=== PATIENT | female | born 1995 | race Caucasian/White ===

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

== ENCOUNTER 2017-01-14 22:33 | Emergency (ER) | payer MEDICAID ==
[~2017-01-14] VITALS: Ht 157.5 cm; Wt 59.1 kg
[~2017-01-14 22:33] MED LIST changes: +CEPH-507 PO
--- OUTSIDE RECORDS SUMMARY | 2017-01-14 22:40 | XMS REPORT ---
Author Author JACOBO MONCADA Organization [facility] Address [address] [place] [address] Care Team Providers Care Web Consultant Name Role Phone JACOBO MONCADA Unavailable PROBLEMS Type Condition ICD9-CM Code QGL80-OT Code Onset Dates Condition Status SNOMED Code Problem ADHD (attention deficit hyperactivity disorder), combined type F90.2 Active 84746252 Problem Anxiety state F41.1 Active 107610350 Problem Plantar wart of right foot B07.0 Active 46161519310296207 Problem Anxiety disorder, unspecified type F41.9 Active 441283946 Problem Rhinitis, unspecified type J31.0 Active 16298790 Problem Depressive disorder, not elsewhere classified F32.9 Active 42461589 Problem Major depressive disorder, single episode, mild F32.0 Active 26999025 Problem Slow transit constipation K59.01 Active 56528309 ALLERGIES No Known Allergies SOCIAL HISTORY Never Assessed PLAN OF CARE Activity Details Follow Up prn Reason: VITAL SIGNS Height 59 in 2016-07-14 Weight 130.0 lbs 2016-07-14 Temperature 98.0 degrees Fahrenheit 2016-07-14 Heart Rate 92 bpm 2016-07-14 Respiratory Rate 20 2016-07-14 BMI 26.25 kg/m2 2016-07-14 Blood pressure systolic 110 mmHg 2016-07-14 Blood pressure diastolic 62 mmHg 2016-07-14 MEDICATIONS Medication Instructions Dosage Frequency Start Date End Date Duration Status HydrOXYzine HCl 25 MG Orally TID 1 tablet as needed 8h Jan, 30 days Active Ritalin LA 20 MG Orally Once a day 1 capsule in the morning 24h June, Jul, 30 days Active Venlafaxine HCl ER 150 MG Orally Once a day 1 capsule with food 24h May 30 days Active RESULTS Name Result Date Reference Range UA LONG DIP (IN HOUSE) 2016-07-14 Lot # [id number] Exp date 2017-06-19 Clarity clear Color dark yellow Odor none GLU trace NITHIN negative KET negative SG 1.025 BLO negative pH 6.0 Protein trace URO 0.2 NIT negative JOSH negative Lot # [id number] Exp date 2017-03 PROCEDURES Procedure Date Ordered Result Body Site URINALYSIS, AUTO, W/O SCOPE July 14, 2016 IMMUNIZATIONS No Known Immunizations MEDICAL (GENERAL) HISTORY [...]
--- OUTSIDE RECORDS SUMMARY | 2017-01-14 22:40 | XMS REPORT ---
Author Author DK SAMUEL Organization [facility] Address [address] [place] [address] Care Team Providers Care Fruit And Vegetable Inspector Name Role Phone DK SAMUEL Unavailable PROBLEMS Type Condition ICD9-CM Code OQC79-UT Code Onset Dates Condition Status SNOMED Code Problem ADHD (attention deficit hyperactivity disorder), combined type F90.2 Active 79050856 Problem Anxiety state F41.1 Active 713707203 Problem Plantar wart of right foot B07.0 Active 17507234418408059 Problem Anxiety disorder, unspecified type F41.9 Active 992718975 Problem Rhinitis, unspecified type J31.0 Active 95951925 Problem Depressive disorder, not elsewhere classified F32.9 Active 92552105 Problem Major depressive disorder, single episode, mild F32.0 Active 53867161 Problem Slow transit constipation K59.01 Active 79428124 ALLERGIES No Information SOCIAL HISTORY Never Assessed PLAN OF CARE VITAL SIGNS MEDICATIONS Medication Instructions Dosage Frequency Start Date End Date Duration Status Flagyl 500 mg Orally 2 times a day 1 tablet 12h June, June, 10 day(s) Active RESULTS No Results PROCEDURES No Known [...]
--- OUTSIDE RECORDS SUMMARY | 2017-01-14 22:41 | XMS REPORT ---
Author Author DK SAMUEL Organization [facility] Address [address] [place] [address] Care Team Providers Care Film Touch Up Inspector Name Role Phone DK SAMUEL Unavailable PROBLEMS Type Condition ICD9-CM Code [id number] Code Onset Dates Condition Status SNOMED Code Problem ADHD (attention deficit hyperactivity disorder), combined type F90.2 Active 17318294 Problem Anxiety state F41.1 Active 294842786 Problem Plantar wart of right foot B07.0 Active [id number] Problem Anxiety disorder, unspecified type F41.9 Active 239204354 Problem Rhinitis, unspecified type J31.0 Active 98962871 Problem Depressive disorder, not elsewhere classified F32.9 Active 24334800 Problem Major depressive disorder, single episode, mild F32.0 Active 93242124 Problem Slow transit constipation K59.01 Active 09626302 ALLERGIES No Information SOCIAL HISTORY Never Assessed [...]
--- OUTSIDE RECORDS SUMMARY | 2017-01-14 22:42 | XMS REPORT ---
Author Author AleXOCHITL VALERO [facility] Address [address] [place] [address] Care Team Providers Care Personal Assistant Name Role Phone XOCHITL Rojo Unavailable PROBLEMS Type Condition ICD9-CM Code [id number] Code Onset Dates Condition Status SNOMED Code Problem ADHD (attention deficit hyperactivity disorder), combined type F90.2 Active 49331849 Problem Anxiety state F41.1 Active 026608708 Problem Plantar wart of right foot B07.0 Active 93273673674379109 Problem Anxiety disorder, unspecified type F41.9 Active 671227186 Problem Rhinitis, unspecified type J31.0 Active 24778234 Problem Depressive disorder, not elsewhere classified F32.9 Active 13107984 Problem Major depressive disorder, single episode, mild F32.0 Active 68621754 Problem Slow transit constipation K59.01 Active 25634874 ALLERGIES No Known Allergies SOCIAL HISTORY Never Assessed PLAN OF CARE Activity Details Follow Up 2 Months with new med provider. Reason: VITAL SIGNS Height 59 in 2016-06-30 Weight 135.4 lbs 2016-06-30 Heart Rate 84 bpm 2016-06-30 Respiratory Rate 20 2016-06-30 BMI 27.34 kg/m2 2016-06-30 Blood pressure systolic 123 mmHg 2016-06-30 Blood pressure diastolic 67 mmHg 2016-06-30 MEDICATIONS Medication Instructions Dosage Frequency Start Date [...] food 24h May 30 days Active RESULTS No Results PROCEDURES [...]
[2017-01-14] MEDS ORDERED: ONDANSETRON 4 MG (ZOFRAN) ORAL DISSOLVE TAB PO ONE (23:00)
[2017-01-14] MEDS ORDERED: HYOSCYAMINE 0.125 MG (LEVSIN) TAB PO ONE (23:00)
[2017-01-14 23:13] LABS: BILIRUBIN,URINE NEGATIVE (NEGATIVE); KETONES,URINE 3+ (NEGATIVE); LEUKOCYTE ESTERASE ,URINE NEGATIVE (NEGATIVE); NITRITE,URINE NEGATIVE (NEGATIVE); PH,URINE 7 (5-9); PROTEIN,URINE 2+ (NEGATIVE); UROBILINOGEN,URINE NORMAL (NORMAL)
[2017-01-14] MEDS ORDERED: RX-ONDANSETRON 4 MG ODT (ZOFRAN) PPK #4 PO STA (23:53)
[2017-01-14] MEDS ORDERED: RX-HYOSCYAMINE 0.125 MG SL (LEVSIN) PPK#6 SL STA (23:53)
[2017-01-14] MEDS ORDERED: PANT40TA2 PO (23:58)
[2017-01-14] MEDS ORDERED: ONDA8TAB9 PO (23:58)
[2017-01-14] MEDS ORDERED: HYOS0.1283 SL (23:58)
--- NOTE | 2017-01-14 23:58 | ED GI ---
General Chief Complaint: Abdominal/GI Problems Stated Complaint: VOMITING Nursing Triage Note: C/O vomiting 7 times today and sweating at night. no fever. 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 ATE [employer] AT [employer] --CH[employer] SANDWICH, GRANOLA BAR, BBQ CHIPS AND HAS BEEN DRINKING LEMONADE, WATER AND SPRITE ALL DAY TODAY. THIS IS A FREQUENT PROBLEM FOR PATIENT--PT WITH MULTITUDE OF VISITS HERE, MANY FOR THESE SAME COMPLAINTS PT SMOKES MARIJUANA ON A REGULAR BASIS PT STATES SHE TOOK ZOFRAN, IBUPROFEN 600 MG AND 2 FULL ASPIRIN TODAY AT 1500. ALSO TOOK DICYCLOMINE TODAY PT HAS HAD 13 VISITS IN LAST YEAR, RARELY FOLLOWS UP WITH [facility] SHE IS INSTRUCTED DOES CLAIM SHE SAW RAVEN ELLIOTT ON 12/27 FOR FOLLOW UP FOR THIS COMPLAINT LMP 01/06/17. NORMAL. NO CONTROL PCP: KELLEY. [facility] ROOT Allergies and Home Medications Allergies Coded Allergies: No Known Drug Allergies (Unverified , 08/06/16) Home Medications Dicyclomine HCl 10 Mg Capsule, 10 MG PO QID, #40 Prescribed by: ROSA ESTEVEZ on 11/29/16 2020 Doxycycline Hyclate 100 Mg Tablet, 100 MG PO Q12H, #20 Ref 0 Prescribed by: ANASTACIA LAM on 09/25/16 1837 Hydroxyzine HCl 25 Mg Tablet, 25 MG PO TID PRN for ANXIETY, #10 Prescribed by: GEORGINA AHMADI on 10/08/15 1939 Hyoscyamine Sulfate 0.125 Mg Tab.subl, 1-2 TAB SL Q4H, #15 Prescribed by: BRENDA ADAMS on 01/14/17 2358 Methylphenidate HCl 10 Mg Tablet, Unknown Dose PO, (Reported) Ondansetron 8 Mg Tab.rapdis, 8 MG PO Q6H PRN for NAUSEA/VOMITING-1ST LINE, #10 Prescribed by: ROSA ESTEVEZ on 11/29/162031 Ondansetron 8 Mg Tab.rapdis, 8 MG PO Q4H, #14 Prescribed by: BRENDA ADAMS on 01/14/172357 Pantoprazole Sodium 40 Mg Tablet.dr, 40 MG PO DAILY, #15 Prescribed by: BRENDA ADAMS on 01/14/178 Venlafaxine HCl 37.5 Mg Cap.er.24h, #10 (Reported) Review of Systems Constitutional: no symptoms reported, diaphoresis (BEFORE SHE VOMITS) EENTM: No Symptoms Reported Respiratory: No Symptoms Reported Cardiovascular: No Symptoms Reported Gastrointestinal: See HPI, Denies Abdominal Pain, Diarrhea, Nausea, Denies Poor Appetite, Denies Poor Fluid Intake, Vomiting Genitourinary: No Symptoms Reported Musculoskeletal: no symptoms reported Skin: no symptoms reported Psychiatric/Neurological: No Symptoms Reported Endocrine: No Symptoms Reported Hematologic/Lymphatic: No Symptoms Reported Past Toodzri-Vncczh-Ikwcci Hx Patient Social History Alcohol Use: Denies Use Recreational Drug Use: Yes (REGULAR USE OF THC) Drug of Choice: MARIJUANA Smoking Status: Never a Smoker 2nd Hand Smoke Exposure: Yes Recent Foreign Travel: No Contact w/Someone Who Travel: No Recent Infectious Disease Expo: No Recent Hopitalizations: No Physical Abuse: No Sexual Abuse: No Mistreated: No Fear: No Immunizations Up To Date Tetanus Booster (TDap): Less than 5yrs PED Vaccines UTD: No Date of Influenza Vaccine: Dec 21, 2012 Seasonal Allergies Seasonal Allergies: Yes Surgeries History of Surgeries: Yes (HERNIA REPAIR ; COLONOSCOPY 2014 IN [facility]) Surgeries: Abdominal Respiratory History of Respiratory Disorde: Yes Respiratory Disorders: Asthma Currently Using CPAP: No Currently Using BIPAP: No Cardiovascular History of Cardiac Disorders: No Neurological History of Neurological Disord: No Reproductive System : No Last Menstrual Period: Jan 06, 2017 Hx : 2 Hx Para: 1 Hx Total # of Abortions (Spona: 1 Hx Reproductive Disorders: No Sexually Transmitted Disease: No HIV/AIDS: No Female Reproductive Disorders: Denies Genitourinary History of Genitourinary Disor: Yes Genitourinary Disorders: Bladder Infection Gastrointestinal History of Gastrointestinal Di: Yes (MESENTERIC ADENITIS. CHRONIC ABDOMINAL PAIN, NAUSEA/VOMITING COMPLAINTS) Gastrointestinal Disorders: Irritable Bowel Musculoskeletal History of Musculoskeletal Dis: No Endocrine History of Endocrine Disorders: No HEENT History of HEENT Disorders: No Cancer History of Cancer: No Psychosocial History of Psychiatric Problem: Yes Behavioral Health Disorders: ADD/ADHD, Anxiety, Suicide Attempts, Bipolar, Depression Suicide Risk Score: 0 Integumentary History of Skin or Integumenta: Yes Skin/Integumentary Disorders: Eczema Blood Transfusions History of Blood Disorders: No Adverse Reaction to a Blood Tr: No Family Medical History Family Medial History: No Family History of: Alcoholism Cancer Chest pain Congenital heart disease Congestive heart failure Family history: Arthritis Family history: Asthma Family history: Breast disease Family history: Cardiovascular disease Family history: Coronary thrombosis Family history: Diabetes mellitus Family history: Hypertension Family history: Thyroid disorder Headache History of - anemia History of - respiratory disease History of drug abuse Human immunodeficiency virus (HIV) seropositivity Hypercholesterolemia Infertile Kidney disease Myocardial infarction Psychotic disorder Seizure disorder Stroke Tuberculosis Visual impairment Physical Exam Vital Signs VS - Last 72 Hours, by Label 01/14/17 01/15/17 22:45 00:26 Temp 97.6 Pulse 92 71 Resp 18 18 B/P (MAP) 127/90 Pulse Ox 99 99 Capillary Refill : Less Than 3 Seconds General Appearance: WD/WN, no apparent distress, other (DOES NOT APPEAR ILL OR TO BE IN ANY DISCOMFORT. PT SITTING [place], SMILING AND LAUGHING, PLAYING/ TEXTING ON PHONE, IS THE MALE WITH HER. ) HEENT: PERRL/EOMI, other (ORAL MUCOSA MOIST) Respiratory: normal breath sounds, no respiratory distress, no accessory muscle use Cardiovascular: regular rate, rhythm, no murmur Gastrointestinal: normal bowel sounds, soft, no organomegaly, no pulsatile mass , tenderness (MILD DIFFUSE) Extremities: normal inspection Back: normal inspection, no CVA tenderness Neurologic/Psychiatric: sole scraper II-XII nml as tested, no motor/sensory deficits, alert, normal mood/affect, oriented x 3 Skin: normal color, warm/dry, tattoos/piercings (TATTOOS) Progress/Results/Core Measures Results/Orders Lab Results Laboratory Tests Test 01/14/17 22:43 Range/Units Urine Color YELLOW Urine Clarity CLEAR Urine pH 7 5-9 Urine Specific [place] 1.010 L 1.016-1.022 Urine Protein 2+ H NEGATIVE Urine Glucose (UA) NEGATIVE NEGATIVE Urine Ketones 3+ H NEGATIVE Urine Nitrite NEGATIVE NEGATIVE Urine Bilirubin NEGATIVE NEGATIVE Urine Urobilinogen NORMAL NORMAL MG/DL Urine Leukocyte Esterase NEGATIVE NEGATIVE Urine RBC (Auto) NEGATIVE NEGATIVE Urine RBC NONE /HPF Urine WBC NONE /HPF Urine Squamous Epithelial Cells 5-10 /HPF Urine Crystals NONE /LPF Urine Bacteria NONE /HPF Urine Casts NONE /LPF Urine Mucus SMALL H /LPF Urine Culture Indicated NO Urine Test NEGATIVE NEGATIVE Urine Opiates Screen NEGATIVE NEGATIVE Urine Oxycodone Screen NEGATIVE NEGATIVE Urine Methadone Screen NEGATIVE NEGATIVE Urine Propoxyphene Screen NEGATIVE NEGATIVE Urine Barbiturates Screen NEGATIVE NEGATIVE Ur Tricyclic Antidepressants Screen NEGATIVE NEGATIVE Urine Phencyclidine Screen NEGATIVE NEGATIVE Urine Amphetamines Screen NEGATIVE NEGATIVE Urine Methamphetamines Screen NEGATIVE NEGATIVE Urine Benzodiazepines Screen NEGATIVE NEGATIVE Urine Cocaine Screen NEGATIVE NEGATIVE Urine Cannabinoids Screen POSITIVE H NEGATIVE My Orders Orders - BRENDA ADAMS DO Drug Screen Stat (Urine) (01/14/17 22:56) Hcg,Qualitative Urine (01/14/17 22:56) Ua Culture If Indicated (01/14/17 22:56) Ondansetron Oral Dissolve Tab (Zofran (01/14/17 23:00) Hyoscyamine Sl Tablet (Levsin Sl Tablet) (01/14/17 23:00) Pantoprazole Tablet (Protonix Tablet) (01/15/17 00:00) Rx-Hyoscyamine Tab (Rx-Levsin Sl) (01/14/17 23:53) Rx-Ondansetron Po (Rx-Zofran Po) (01/14/17 23:53) Medications Given in ED Current Medications Medications Dose Ordered Sig/Sony Route Start Time Stop Time Status Last Admin Dose Admin Hyoscyamine Sulfate 0.25 mg ONCE ONCE PO 01/14/17 23:00 01/14/17 23:07 DC 01/14/17 23:33 0.25 MG Ondansetron HCl 8 mg ONCE ONCE PO 01/14/17 23:00 01/14/17 23:07 DC 01/14/17 23:33 8 MG Pantoprazole Sodium 40 mg ONCE ONCE PO 01/15/17 00:00 01/15/17 00:01 DC 01/15/17 00:12 40 MG Vital Signs/I&O Vital Sign - Last 12Hours 01/14/17 01/15/17 22:45 00:26 Temp 97.6 Pulse 92 71 Resp 18 18 B/P (MAP) 127/90 Pulse Ox 99 99 Blood Pressure Mean: 102 Progress Note : Progress Note NO VOMITING OR DIARRHEA DURING ER STAY PT STATES SHE FEELS BETTER AT DISMISSAL Departure Impression Impression: Primary Impression: Chronic abdominal pain Additional Impressions: CHRONIC NAUSEA AND VOMITING CHRONIC MARIJUANA USE Disposition: 01 HOME, SELF-CARE Condition: Stable Departure-Patient Inst. Referrals: [facility] (PCP/Family) Primary Care Physician Patient Instructions: Acute Abdomen (Belly Pain), Marijuana Use and Addiction ( DC), Nausea and Vomiting, Adult (DC) Add. Discharge Instructions: CLEAR LIQUIDS--WATER, BROTH, JELLO, GATORADE TOMORROW IF YOU ARE BETTER, ADD BRATS DIET TO CLEAR LIQUIDS--BANANAS, RICE, APPLESAUCE, TOAST, SALTINES CONTINUE DICYCLOMINE DAILY NO IBUPROFEN, NAPROXEN OR ASPIRIN YOU MAY TAKE TYLENOL NEEDED FOR PAIN FOLLOW UP WITH [facility] IN 2-3 DAYS FOR FURTHER CARE All discharge instructions reviewed with patient and/or family. Voiced understanding. Scripts Pantoprazole Sodium (Protonix) 40 Mg Tablet.dr 40 MG PO DAILY, #15 TAB Prov: BRENDA ADAMS DO 01/14/17 Hyoscyamine Sulfate (Levsin-Sl) 0.125 Mg Tab.subl 1-2 TAB SL Q4H for Abdominal Pain, #15 TAB Prov: BRENDA ADAMS DO 01/14/17 Ondansetron (Zofran Odt) 8 Mg Tab.rapdis 8 MG PO Q4H for Nausea/Vomiting, #14 TAB Prov: BRENDA ADAMS DO 01/14/17 Work/School Note: Work Release Form Date Seen in the Emergency Department: Jan 15, 2017 Restrictions: No Restrictions BRENDA ADAMS DO Jan 14, 2017 23:58
[2017-01-15] MEDS ORDERED: PANTOPRAZOLE 40 MG (PROTONIX) TAB PO ONE
[2017-01-15 00:26] VITALS: BP 120/70
== END 2017-01-15 00:25 | disposition home or self-care (01) ==
LOC: EDUNIT# 22:33 → ER 22:35
DX: R10.84 Generalized abdominal pain (principal); G89.29 Other chronic pain; R11.2 Nausea with vomiting, unspecified; F12.10 Cannabis abuse, uncomplicated; J45.909 Unspecified asthma, uncomplicated; F90.9 Attention-deficit hyperactivity disorder, unspecified type; F41.9 Anxiety disorder, unspecified; F31.9 Bipolar disorder, unspecified; Z87.448 Personal history of other diseases of urinary system; Z77.22 Contact with and (suspected) exposure to environmental tobacco smoke (acute) (chronic); Z91.5 Personal history of self-harm; Z87.19 Personal history of other diseases of the digestive system
CPT/HCPCS: 80306; 81000; 84703; 99283

== ENCOUNTER → 2017-02-23 | Outpatient (CLI) | payer MEDICAID ==
[~2017-02-23] MED LIST changes: +HYOS0.1283 SL; +PANT40TA2 PO
--- NOTE | 2017-02-23 12:05 | Diagnostic Imaging Report ---
PROCEDURE: US Gallbladder. TECHNIQUE: Multiple real-time grayscale images were obtained over the right upper quadrant in various projections. INDICATION: Abdominal pain. FINDINGS: There is no evidence for cholelithiasis or acute cholecystitis. The common bile duct is not well visualized as this is obscured by bowel gas. The pancreas and proximal aorta are also obscured by bowel gas. The liver does not appear to be enlarged. There is no focal mass involving the liver and the biliary tree is not abnormally distended. The right kidney is unremarkable. IMPRESSION: 1. There is no evidence for acute cholecystitis or for cholelithiasis. The common bile duct is not well visualized, however. 2. If clinical concern regarding an acute abnormality of the gallbladder persists, then a nuclear medicine hepatobiliary scan will be recommended for further study. Dictated on workstation # [id number]
== END ==
LOC: RAD 08:56
PROVIDERS: ATTEND Surgery
DX: R10.9 Unspecified abdominal pain (principal); R11.2 Nausea with vomiting, unspecified
CPT/HCPCS: 76705

== ENCOUNTER 2017-07-25 16:36 | Emergency (ER) | payer SELFPAY ==
[~2017-07-25] VITALS: Ht 157.5 cm; Wt 55.8 kg
--- OUTSIDE RECORDS SUMMARY | 2017-07-25 16:43 | XMS REPORT ---
Author Author ROOTSAMUEL Hou Organization [facility] Address [address] [place] [address] Care Team Providers Care Supervisor Pressing Department Name Role Phone SAMUEL ROOT Unavailable PROBLEMS Type Condition ICD9-CM Code [id number] Code Onset Dates Condition Status SNOMED Code Problem Anxiety state F41.1 Active 042940125 Problem Depressive disorder, not elsewhere classified F32.9 Active 76772649 Problem ADHD (attention deficit hyperactivity disorder), combined type F90.2 Active 18908227 Problem Irritable bowel syndrome with diarrhea K58.0 Active 403670413 Problem Plantar wart of right foot B07.0 Active [id number] Problem Slow transit constipation K59.01 Active 71263704 Problem Rhinitis, unspecified type J31.0 Active 42643876 Problem Anxiety disorder, unspecified type F41.9 Active 297279141 Problem Major depressive disorder, single episode, mild F32.0 Active 59402979 ALLERGIES No Known Allergies ENCOUNTERS Encounter Location Date Diagnosis [facility] [id number] [place] [address] 75516- 5558 Jul, [facility] [id number] [place] [address] 79710- 2967 June, ADHD (attention deficit hyperactivity disorder), combined type F90.2 ; Major depressive disorder, single episode, mild F32.0 and Anxiety disorder, unspecified type F41.9 [facility] [address] [address] June, [facility] [id number] [place] [address] 18046- 5984 June, ADHD (attention deficit hyperactivity disorder), combined type F90.2 [facility] [id number] [place] [address] 36046- 4763 May, [facility] [id number] [address] 0975 May, ADHD (attention deficit hyperactivity disorder), combined type F90.2 ; Major depressive disorder, single episode, mild F32.0 and Anxiety disorder, unspecified type F41.9 [facility] [address] [address] May, Anxiety disorder, unspecified type F41.9 [facility] [id number] [address] 46[address] Apr, [facility] [id number] [place] [address] 74293- 9229 Apr, Anxiety disorder, unspecified type F41.9 [facility] [address] [address] 69[address] Apr, Anxiety disorder, unspecified type F41.9 ; Major depressive disorder, single episode, mild F32.0 and ADHD (attention deficit hyperactivity disorder), combined type F90.2 [facility] [address] [address] Apr, [facility] [id number] [place] [address] 22915- 9758 Apr, ADHD (attention deficit hyperactivity disorder), combined type F90.2 ; Anxiety state F41.1 ; Depressive disorder, not elsewhere classified F32.9 ; Major depressive disorder, single episode, mild F32.0 and Anxiety disorder, unspecified type F41.9 [facility] [id number] [address] 7060 Mar, ADHD (attention deficit hyperactivity disorder), combined type F90.2 [facility] [address] [address] 4[address] Mar, Nausea R11.0 [facility] [address] [address] 69[address] 13 Feb, 2018 Screening for STD sexually transmitted disease Z11.3 ; Vaginal candidiasis B37.3 and Irritable bowel syndrome with diarrhea K58.0 [facility] [id number] [place] [address] 22974- 1490 Mar, [facility] [id number] [place] [address] 45674- 4248 Feb, ADHD (attention deficit hyperactivity disorder), combined type F90.2 [facility] [id number] [place] [address] 39692- 3072 Feb, Depressive disorder, not elsewhere classified F32.9 ; Anxiety state F41.1 and ADHD (attention deficit hyperactivity disorder), combined type F90.2 [facility] [id number] [place] [address] 46214- 1727 Feb, Depressive disorder, not elsewhere classified F32.9 ; Anxiety state F41.1 and ADHD (attention deficit hyperactivity disorder), combined type F90.2 [facility] [id number] [place] [address] 13612- 6126 Feb, ADHD (attention deficit hyperactivity disorder), combined type F90.[address] [facility] [id number] [place] [address] 38279 -3341 Jan, Other viral agents as the cause of diseases classified elsewhere B97.89 and Acute upper respiratory infection, unspecified J06.9 [facility] [id number] [place] [address] 21897- 4051 Jan, ADHD (attention deficit hyperactivity disorder), combined type F90.2 ; Major depressive disorder, single episode, mild F32.0 and Anxiety disorder, unspecified type F41.9 [facility] [id number] [place] [address] 32665- 9450 Jan, [facility] [id number] [place] [address] 24677- 5749 Jan, ADHD (attention deficit hyperactivity disorder), combined type F90.2 ; Major depressive disorder, single episode, mild F32.0 and Anxiety disorder, unspecified type F41.9 [facility] [id number] [place] [address] 93197- 7789 28 Dec, 2016 Irritable bowel syndrome with diarrhea K58.0 and Lower abdominal pain R10.30 [facility] [id number] [place] [address] 25092- 0053 09 Dec, 2016 Hospital discharge follow-up Z09 ; Mesenteric adenitis I88.0 ; IBD (inflammatory bowel disease) K52.9 and Nausea R11.0 [facility] [id number] [place] [address] 27582- 5107 Nov, ADHD (attention deficit hyperactivity disorder), combined type F90.2 ; Major depressive disorder, single episode, mild F32.0 and Anxiety disorder, unspecified type F41.9 [facility] [id number] [place] [address] 79392- 5956 Nov, Anxiety state F41.1 ; ADHD (attention deficit hyperactivity disorder), combined type F90.2 ; Major depressive disorder, single episode, mild F32.0 and Anxiety disorder, unspecified type F41.9 [facility] [id number] [place] [address] 59941- 9791 Oct, Anxiety state F41.1 ; ADHD (attention deficit hyperactivity disorder), combined type F90.2 ; Major depressive disorder, single episode, mild F32.0 and Anxiety disorder, unspecified type F41.9 [facility] [id number] [place] [address] 22863- 2759 Oct, ADHD (attention deficit hyperactivity disorder), combined type F90.2 ; Major depressive disorder, single episode, mild F32.0 and Anxiety disorder, unspecified type F41.9 [facility] [id number] [place] [address] 36826- 9694 Oct, Major depressive disorder, single episode, mild F32.0 ; Anxiety state F41.1 ; ADHD (attention deficit hyperactivity disorder), combined type F90.2 and Depressive disorder, not elsewhere classified F32.9 [facility] [address], [place] [address] 16 Oct, 2016 [facility] [id number] [place] [address] 01417 -8862 Oct, Cellulitis L03.90 and Plantar wart of right foot B07.0 [facility] [id number] [place] [address] 68767- 0897 Aug, ADHD (attention deficit hyperactivity disorder), combined type F90.2 ; Major depressive disorder, single episode, mild F32.0 and Anxiety disorder, unspecified type F41.9 [facility] [id number] [place] [address] 94471- 5603 Aug, [facility] [id number] [place] [address] 51070- 9863 Jul, ADHD (attention deficit hyperactivity disorder), combined type F90.2 [facility] [id number] [place] [address] 35464- 8633 Jul, Mesenteric adenitis I88.0 [facility] [id number] [place] [address] 52171- 4632 June, [facility] [id number] [place] [address] 48517 -8942 June, Lower abdominal pain R10.30 [facility] [id number] [place] [address] 79534- 3983 June, [facility] [id number] [place] [address] 91656- 1614 June, ADHD (attention deficit hyperactivity disorder), combined type F90.2 and Major depressive disorder, single episode, mild F32.0 [facility] [id number] [place] [address] 61719- 3564 May, [facility] [address], [place] [address]- 1027 May, ADHD (attention deficit hyperactivity disorder), combined type F90.2 and Major depressive disorder, single episode, mild F32.0 [facility] [id number] [place] [address] 75457 -4883 Apr, Abdominal pain R10.9 and Gastroenteritis and colitis, viral A08.4 [place] [address] 32519- 6454 Apr, [facility] [address] 31576 -6328 Mar, Acute urticaria L50.8 [facility] [place] [address] 11512- 1348 Mar, [facility] [address] 48847- 7592 Feb, [facility] [place] [address] 95438 -1274 Feb, Gastroenteritis K52.9 [place] [place] [address] 83575- 1036 Feb, Irritant contact dermatitis due to cosmetics L24.3 [facility] [address] 22267- 7748 Jan, [facility] [id number] [place] [address] 90941- 6036 Jan, [facility] [facility] [address] 04888- 3305 Jan, ADHD (attention deficit hyperactivity disorder), combined type F90.2 and Major depressive disorder, single episode, mild F32.0 [facility] [place] [address] 72233 -7590 Dec, Flexural eczema L20.82 [facility] [id number] [place] [address] 85936- 5717 Dec, Encounter for test Z32.00 [facility] [id number] [address]- 8857 Dec, [facility] [id number] [place] [address] 86646- 6421 Dec, [facility] [id number] [place] [address] 94321- 1194 Dec, [facility] [id number] [place] [address] 04358 -9034 Nov, Sore throat J02.9 and Pharyngitis, unspecified etiology J02.9 [facility] [id number] [place] [address] 31608- 0443 Nov, [facility] [id number] [place] [address] 51860- 9593 Nov, [facility] [id number] [place] [address] 33858- 7005 Nov, Generalized abdominal pain R10.84 and Slow transit constipation K59.01 [facility] [id number] [place] [address] [id number] 05 Nov, 2015 Pharyngitis, unspecified etiology J02.9 and Rhinitis, unspecified type J31.0 [facility] [id number] [place] [address] 33647- 5000 29 Oct, 2015 Depressive disorder, not elsewhere classified F32.9 and ADHD (attention deficit hyperactivity disorder), combined type F90.2 [facility] [id number] [place] [address] 89185- 2990 29 Oct, 2015 [facility] [id number] [place] [address] 66728- 5149 Oct, [facility] [id number] [place] [address] 04599 -1490 20 Oct, 2016 Strep throat J02.0 [facility] [id number] [place] [address] 21003- 2549 16 Oct, 2015 [facility] [address], [place] [address]- 5366 Oct, Well woman exam with routine gynecological exam Z01.419 and Screening for STD sexually transmitted disease Z11.3 [facility] [address], [place] [address]- 4100 Sep, ADHD (attention deficit hyperactivity disorder), combined type F90.2 ; Anxiety state F41.1 and Depressive disorder, not elsewhere classified F32.9 [facility] [id number] [place] [address]- 7810 Sep, ADHD (attention deficit hyperactivity disorder), combined type F90.2 and Depressive disorder, not elsewhere classified F32.9 [facility] [address], [place] [address]- 4146 Aug, [facility] [id number] [place] [address] 91090- 9797 Aug, ADHD (attention deficit hyperactivity disorder), combined type F90.2 and Depressive disorder, not elsewhere classified F32.9 [facility] [address], [place] [address]- 9243 Aug, ADHD (attention deficit hyperactivity disorder), combined type F90.2 ; Anxiety state F41.1 and Depressive disorder, not elsewhere classified F32.9 [facility] [address], [place] [address]- 6008 Aug, [facility] [id number] [address]- 2625 Aug, [facility] [address], [place] [address]- 9000 Jul, ADHD (attention deficit hyperactivity disorder), combined type F90.2 ; Depressive disorder, not elsewhere classified F32.9 and Anxiety state F41.1 [facility] [address], [place] [address]- 1870 Jul, [facility] [id number] [place] [address] 37151- 7876 Jul, ADHD (attention deficit hyperactivity disorder), combined type F90.2 ; Anxiety state F41.1 and Depressive disorder, not elsewhere classified F32.9 [facility] [id number] [place] [address] 34005- 6842 June, [facility] [id number] [place] [address] [id number] June, Constipation K59.00 [facility] [id number] [place] [address] 25167- 2332 May, Constipation K59.00 [facility] [address] 54550 -9086 May, Irritable bowel syndrome with diarrhea K58.0 [facility] [id number] [place] [address] 64924- 6755 May, [facility] [id number] [place] [address] 50163- 9608 May, [facility] [id number] [place] [address] 75875- 7540 May, [facility] [id number] [place] [address] 35468- 9427 May, [facility] [address], [place] [address]- 3451 Jan, [facility] [id number] [place] [address] 16412- 7291 Jan, [facility] [id number] [place] [address] 02730- 6236 Jan, [facility] [id number] [place] [address] 28109- 8514 Jan, [facility] [id number] [place] [address] 59126- 3067 Jan, [facility] [id number] [place] [address] 76388- 0795 Jan, [facility] [place] [facility] [address] [id number] [place] [address]- 1636 Nov, [facility] [place] [facility] [address] [id number] [place] [address]- 5778 Nov, [facility] [place] [facility] [address] [id number] [place] [address]- 8503 Oct, [facility] [place] [facility] [address] [id number] [place] [address]- 6386 Oct, [facility] [place] [facility] [address] [id number] [place] [address]- 5823 Sep, [facility] [place] [facility] [address] [id number] [place] [address]- 0095 Sep, [facility] [place] [facility] [address] [id number] [place] [address]- 8161 Aug, [facility] [place] [facility] [address] [id number] [place] [address]- 0983 Aug, [facility] [place] [facility] [address] [id number] [place] [address]- 0464 Aug, [facility] [place] [facility] [address] [id number] [place] [address]- 3317 Aug, [facility] [place] [facility] [address] [id number] [place] [address]- 3775 Aug, [facility] [place] [facility] [address] [id number] [place] [address]- 2079 Aug, [facility] [place] [facility] [address] [id number] [place] [address]- 4505 Aug, [facility] [place] [facility] [address] [id number] [place] [address]- 6316 Aug, [facility] [place] [facility] [address] [id number] [place] [address]- 0029 Jul, [facility] [place] [facility] [address] [id number] [place] [address]- 4955 Jul, [facility] [place] [facility] [address] [id number] [place] [address]- 4827 Jul, [facility] [place] [facility] [address] [id number] [place] [address]- 8940 Jul, [facility] [place] [facility] [address] [id number] [place] [address]- 7710 Jul, [facility] [place] [facility] [address] [id number] [place] [address]- 4468 Jul, [facility] [place] [facility] [address] [id number] [place] [address]- 4901 Jul, [facility] [place] [facility] [address] [id number] [place] [address]- 5560 Jul, [facility] [place] [facility] [address] [id number] [place] [address]- 7817 Jul, [facility] [place] [facility] [address] [id number] [place] [address]- 0958 June, [facility] [place] [facility] [address] [id number] [place] [address]- 0639 June, [facility] [place] [facility] [address] [id number] [place] [address]- 1171 May, [facility] [place] [facility] [address] [id number] [place] [address]- 0280 May, [facility] [place] [facility] [address] [id number] [place] [address]- 8216 May, [facility] [place] [facility] [address] [id number] [place] [address]- 0901 May, [facility] [place] [facility] [address] [id number] [place] [address]- 7699 May, [facility] [place] [facility] [address] [id number] [place] [address]- 4542 May, [facility] [place] [facility] [address] [id number] [place] [address]- 2230 May, [facility] [place] [facility] [address] [id number] [place] [address]- 4290 May, [facility] [place] [facility] [address] [id number] [place] [address]- 5089 May, [facility] [place] [facility] [address] [id number] [place] [address]- 9744 May, [facility] [place] [facility] [address] [id number] [place] [address]- 2300 May, [facility] [place] [facility] [address] [id number] [place] [address]- 6278 May, [facility] [place] [facility] [address] [id number] [place] [address]- 9672 Apr, [facility] [place] [facility] [address] [id number] [place] [address]- 2509 Apr, [facility] [place] [facility] [address] [id number] [place] [address]- 1249 Apr, [facility] [place] [facility] [address] [id number] [place] [address]- 8085 Apr, [facility] [place] [facility] [address] [id number] [place] [address]- 0552 Mar, [facility] [place] [facility] [address] [id number] [place] [address]- 8579 Mar, [facility] [place] [facility] [address] [id number] [place] [address]- 7212 Mar, [facility] [place] [facility] [address] [id number] [place] [address]- 3657 Mar, [facility] [place] [facility] [address] [id number] [place] [address]- 0917 Mar, [facility] [place] [facility] [address] [id number] [place] [address]- 6160 27 Mar, 2013 [facility] [place] [facility] [address] [id number] [place] [address]- 6576 Mar, 2013 [facility] [place] [facility] [address] [id number] [place] [address]- 2546 Mar, 2013 [facility] [place] [facility] [address] [id number] [place] [address]- 0626 Mar, 2013 [facility] [place] [facility] [address] [id number] [place] [address]- 2541 Mar, 2013 [facility] [place] [facility] [address] [id number] [place] [address]- 6766 14 Mar, 2013 [facility] [place] [facility] [address] [facility] [id number] [place] [address]- 1458 14 Mar, 2013 [facility] [place] [facility] [address] [facility] [id number] [place] [address]- 6861 Mar, 2013 [facility] [place] [facility] [address] [facility] [id number] [place] [address]- 3820 Mar, [facility] [place] [facility] [address] [facility] [id number] [place] [address]- 1072 Mar, [facility] [place] [facility] [address] [facility] [id number] [place] [address]- 1080 Mar, [facility] [place] [facility] [address] [id number] [address]- 7816 Mar, 2013 [facility] [place] [facility] [address] [facility] [id number] [place] [address]- 2546 Mar, [facility] [place] [facility] [address] [id number] [place] [address]- 9481 Mar, [facility] [place] [facility] [address] [facility] [id number] [place] [address]- 0646 Mar, 2013 [facility] [place] [facility] [address] [facility] [id number] [place] [address]- 6738 Feb, [facility] [address] [id number] [place] [address]- 9421 Feb, [facility] [place] [facility] [address] [id number] [place] [address]- 2113 Feb, [facility] [place] [facility] [address] [id number] [place] [address] Feb, [facility] [place] [facility] [address] [id number] [place] [address] Feb, [facility] [place] [facility] [address] [id number] [place] [address] Feb, [facility] [place] [facility] [address] [id number] [place] [address] Feb, [facility] [place] [facility] [address] [id number] [place] [address] Feb, [facility] [place] [facility] [address] [id number] [place] [address] Feb, [facility] [place] [facility] [address] [id number] [place] [address] Feb, [facility] [place] [facility] [address] [id number] [place] [address] Feb, [facility] [place] [facility] [address] [id number] [place] [address] Feb, [facility] [place] [facility] [address] [id number] [place] [address] Feb, [facility] [place] [facility] [address] [id number] [place] [address] Feb, [facility] [place] [facility] [address] [id number] [place] [address] Feb, [facility] [place] [facility] [address] [id number] [place] [address] Feb, [facility] [place] [facility] [address] [id number] [place] [address] 15 Feb, 2013 [facility] [place] [facility] [address] [id number] [place] [address] Feb, [facility] [place] [facility] [address] [id number] [place] [address] Feb, [facility] [place] [facility] [address] [id number] [place] [address] Feb, [facility] [place] [facility] [address] [id number] [place] [address] Feb, [facility] [place] [facility] [address] [id number] [place] [address] Feb, [facility] [place] [facility] [address] [id number] [place] [address] Feb, [facility] [place] [facility] [address] [id number] [place] [address] Jan, [facility] [place] [facility] [address] [id number] [place] [address] 24 Jan, 2013 [facility] [place] [facility] [address] [id number] [place] [address] Jan, [facility] [place] [facility] [address] [id number] [place] [address] 18 Jan, 2013 [facility] [place] [facility] [address] [id number] [place] [address] 18 Jan, 2013 [facility] [place] [facility] [address] [id number] [place] [address] 18 Jan, 2013 [facility] [place] [facility] [address] [id number] [place] [address] 18 Jan, 2013 [facility] [place] [facility] [address] [id number] [place] [address] 17 Jan, 2013 [facility] [place] [facility] [address] [id number], [place] [address] Jan, [facility] [place] [facility] [address] [id number] [place] [address] Jan, [facility] [place] [facility] [address] [id number], [place] [address] Jan, [facility] [place] [facility] [address] [facility] [id number], [place] [address] Jan, [facility] [place] [facility] [address] [id number], [place] [address] Jan, [facility] [place] [facility] [address] [id number] [place] [address] Dec, [facility] [place] [facility] [address] [id number], [place] [address] Dec, [facility] [place] [facility] [address] [id number], [place] [address] Dec, [facility] [place] [facility] [address] [id number], [place] [address] Dec, [facility] [place] [facility] [address] [id number], [place] [address] Dec, [facility] [place] [facility] [address] [id number], [place] [address] Dec, [facility] [place] [facility] [address] [id number], [place] [address] Nov, [facility] [place] [facility] [address] [id number], [place] [address] Nov, [facility] [place] [facility] [address] [id number], [place] [address] Nov, [facility] [place] [facility] [address] [id number], [place] [address] Nov, [facility] [place] [facility] [address] [id number], [place] [address] Nov, [facility] [place] [facility] [address] [id number], [place] [address] Nov, [facility] [id number], [place] [address] Oct, [facility] [id number], [place] [address] Oct, [facility] [id number], [place] [address] Oct, [facility] [id number], [place] [address] Oct, [facility] [id number] [place] [address] Oct, [facility] [id number], [place] [address] Oct, [facility] [id number], [place] [address] Oct, IMMUNIZATIONS No Known Immunizations SOCIAL HISTORY Never Assessed REASON FOR VISIT er f/u----Leonidas, seen at and [facility] ( records are in, MARY signed for [facility]), reports [facility] recommended referral to GI PLAN OF CARE Activity Details Follow Up prn Reason: VITAL SIGNS Height 59 in 2017-01-17 Weight 142 lbs 2017-01-17 Temperature 98.6 degrees Fahrenheit 2017-01-17 Heart Rate 90 bpm 2017-01-17 Respiratory Rate 20 2017-01-17 BMI 28.68 kg/m2 2017-01-17 Blood pressure systolic 104 mmHg 2017-01-17 Blood pressure diastolic 72 mmHg 2017-01-17 MEDICATIONS Medication Instructions Dosage Frequency Start Date End Date Duration Status Ritalin LA 20 mg Orally Once a day 1 capsule in the morning 24h Nov, 28 days Active Venlafaxine HCl ER 150 MG Orally Once a day 1 capsule with food 24h May Not-Taking HydrOXYzine HCl 25 MG Orally three times a day as needed for anxiety 1 tablet as needed Jan, Active Promethazine HCl 25 MG Orally every 4 hrs 1 tablet as needed 4h Active Protonix 40 MG Orally Once a day 1 tablet 24h Active Dicyclomine HCl 20 mg Orally 3 times a day 1 tablet 8h Dec,Jan 30 day(s) Active Ondansetron 4 MG Orally every 8 hrs prn 1 tablet on the tongue and allow to dissolve Dec, 14 days Active RESULTS No Results PROCEDURES No Known procedures INSTRUCTIONS MEDICATIONS ADMINISTERED No Known Medications MEDICAL (GENERAL) HISTORY Type Description Date Medical [...]
--- OUTSIDE RECORDS SUMMARY | 2017-07-25 16:43 | XMS REPORT ---
Author Author AleXOCHITL VALERO [facility] Address [address] [place] [address] Care Team Providers Care Gold Layer Name Role Phone XOCHITL Rojo Unavailable PROBLEMS Type Condition ICD9-CM Code [id number] Code Onset Dates Condition Status SNOMED Code Problem Anxiety state F41.1 Active 446743682 Problem Depressive disorder, not elsewhere classified F32.9 Active 48397831 Problem ADHD (attention deficit hyperactivity disorder), combined type F90.2 Active 80931692 Problem Irritable bowel syndrome with diarrhea K58.0 Active 137346478 Problem Plantar wart of right foot B07.0 Active [id number] Problem Slow transit constipation K59.01 Active 05201662 Problem Rhinitis, unspecified type J31.0 Active 82892451 Problem Anxiety disorder, unspecified type F41.9 Active 944061127 Problem Major depressive disorder, single episode, mild F32.0 Active [id number] ALLERGIES No Information ENCOUNTERS Encounter Location Date Diagnosis [facility] [id number] [place] [address] 15568- 3644 May, [facility] [id number] [place] [address] 75879- 3668 Apr, Anxiety disorder, unspecified type F41.9 [facility] [id number] [place] [address] 42675- 6534 Apr, Anxiety disorder, unspecified type F41.9 ; Major depressive disorder, single episode, mild F32.0 and ADHD (attention deficit hyperactivity disorder), combined type F90.2 [facility] [id number] [place] [address] 84101- 0328 Apr, [facility] [id number] [place] [address] 24818- 6792 Apr, ADHD (attention deficit hyperactivity disorder), combined type F90.2 ; Anxiety state F41.1 ; Depressive disorder, not elsewhere classified F32.9 ; Major depressive disorder, single episode, mild F32.0 and Anxiety disorder, unspecified type F41.9 [facility] [address], [place] [address] 40[address] Mar, ADHD (attention deficit hyperactivity disorder), combined type F90.2 [facility] [id number] [place] [address] 45862- 3263 Mar, Nausea R11.0 [place] [facility] [address] 69657- 0684 Mar, Screening for STD (sexually transmitted disease) Z11.3 ; Vaginal candidiasis B37.3 and Irritable bowel syndrome with diarrhea K58.0 [place] [id number] [place] [address] 76731- 9490 Mar, [facility] [id number] [place] [address] 68857- 5272 Feb, ADHD (attention deficit hyperactivity disorder), combined type F90.2 [facility] [id number] [place] [address] 31245- 4948 Feb, Depressive disorder, not elsewhere classified F32.9 ; Anxiety state F41.1 and ADHD (attention deficit hyperactivity disorder), combined type F90.2 [place] [id number] [place] [address] 07648- 5513 Feb, Depressive disorder, not elsewhere classified F32.9 ; Anxiety state F41.1 and ADHD (attention deficit hyperactivity disorder), combined type F90.2 [place] [place] [id number] [place] [address] 29977- 3173 Feb, ADHD (attention deficit hyperactivity disorder), combined type F90.2 [facility] [address] [place] [address] Jan, Other viral agents as the cause of diseases classified elsewhere B97.89 and Acute upper respiratory infection, unspecified J06.9 [place] [address], [place] [address] 4594 Jan, ADHD (attention deficit hyperactivity disorder), combined type F90.2 ; Major depressive disorder, single episode, mild F32.0 and Anxiety disorder, unspecified type F41.9 [place] [place] [id number] [place] [address] 24963- 1849 Jan, [place] [id number] [place] [address] 41878- 9550 Jan, ADHD (attention deficit hyperactivity disorder), combined type F90.2 ; Major depressive disorder, single episode, mild F32.0 and Anxiety disorder, unspecified type F41.9 [place] [id number] [place] [address] 91301- 6607 Dec, Irritable bowel syndrome with diarrhea K58.0 and Lower abdominal pain R10.30 [facility] [id number] [place] [address] 48916- 8274 Dec, Hospital discharge follow-up Z09 ; Mesenteric adenitis I88.0 ; IBD (inflammatory bowel disease) K52.9 and Nausea R11.0 [place] [address], [place] [address]- 1869 Nov, ADHD (attention deficit hyperactivity disorder), combined type F90.2 ; Major depressive disorder, single episode, mild F32.0 and Anxiety disorder, unspecified type F41.9 [place] [address], [place] [address]- 4742 Nov, Anxiety state F41.1 ; ADHD (attention deficit hyperactivity disorder), combined type F90.2 ; Major depressive disorder, single episode, mild F32.0 and Anxiety disorder, unspecified type F41.9 [place] [address], [place] [address] 4614 Oct, Anxiety state F41.1 ; ADHD (attention deficit hyperactivity disorder), combined type F90.2 ; Major depressive disorder, single episode, mild F32.0 and Anxiety disorder, unspecified type F41.9 [facility] [id number] [place] [address] 10162- 5618 Oct, ADHD (attention deficit hyperactivity disorder), combined type F90.2 ; Major depressive disorder, single episode, mild F32.0 and Anxiety disorder, unspecified type F41.9 [place] [id number] [place] [address] 58402- 6547 Oct, Major depressive disorder, single episode, mild F32.0 ; Anxiety state F41.1 ; ADHD (attention deficit hyperactivity disorder), combined type F90.2 and Depressive disorder, not elsewhere classified F32.9 [facility] [id number] [place] [address] 52429 -4351 16 Oct, 2016 [facility] [id number] [place] [address] 08147 -4737 Oct, Cellulitis L03.90 and Plantar wart of right foot B07.0 [place] [id number] [place] [address] 54745- 0147 Aug, ADHD (attention deficit hyperactivity disorder), combined type F90.2 ; Major depressive disorder, single episode, mild F32.0 and Anxiety disorder, unspecified type F41.9 [place] [facility] [id number] [place] [address] 52560- 0899 Aug, [place] [facility] [id number] [place] [address] 24149- 5848 Jul, ADHD (attention deficit hyperactivity disorder), combined type F90.2 [facility] [id number] [place] [address] 71818- 7560 Jul, Mesenteric adenitis I88.0 [place] [id number] [place] [address] 22447- 3225 June, [facility] [address] 58520 -9243 June, Lower abdominal pain R10.30 [facility] [id number] [place] [address] 85346- 6257 June, [facility] [address] 43826- 2261 June, ADHD (attention deficit hyperactivity disorder), combined type F90.2 and Major depressive disorder, single episode, mild F32.0 [facility] [address] 23669- 1869 May, [place] [address] 32380- 8438 May, ADHD (attention deficit hyperactivity disorder), combined type F90.2 and Major depressive disorder, single episode, mild F32.0 [facility] [id number] [place] [address] 75469 -0797 Apr, Abdominal pain R10.9 and Gastroenteritis and colitis, viral A08.4 [place] [id number] [place] [address] 69506- 0760 Apr, [facility] [address] 42809 -2446 Mar, Acute urticaria L50.8 [place] [address] 84742- 4243 Mar, [facility] [address] 14765- 8574 Feb, [facility] [id number] [place] [address] 24750 -7254 Feb, Gastroenteritis K52.9 [place] [address] 62125- 0972 Feb, Irritant contact dermatitis due to cosmetics L24.3 [place] [address] 21673- 2791 Jan, [facility] [address] 20202- 8660 Jan, [place] [address] 73700- 9580 Jan, ADHD (attention deficit hyperactivity disorder), combined type F90.2 and Major depressive disorder, single episode, mild F32.0 [facility] [address] 82391 -2815 Dec, Flexural eczema L20.82 [facility] [address] 46724- 9865 Dec, Encounter for test Z32.00 [place] [address] 23012- 4054 Dec, [facility] [address] 14148- 2891 Dec, [facility] [address] 02307- 2712 Dec, [facility] [address] 34165 -9808 Nov, Sore throat J02.9 and Pharyngitis, unspecified etiology J02.9 [facility] [address] 91801- 5771 Nov, [facility] [address] 26961- 3282 Nov, [facility] [address] 80675- 0153 Nov, Generalized abdominal pain R10.84 and Slow transit constipation K59.01 [facility] [address] [id number] 05 Nov, 2015 Pharyngitis, unspecified etiology J02.9 and Rhinitis, unspecified type J31.0 [facility] [address] [place] [address]- 8502 Oct, Depressive disorder, not elsewhere classified F32.9 and ADHD (attention deficit hyperactivity disorder), combined type F90.2 [facility] [address], [place] [address]- 9108 29 Oct, 2015 [facility] [address], [place] [address]- 5727 Oct, [facility] [address], [place] [address]6714 Oct, Strep throat J02.0 [facility] [id number] [place] [address] 15986- 2816 16 Oct, 2015 [facility] [id number] [place] [address] 45571- 3349 Oct, Well woman exam with routine gynecological exam Z01.419 and Screening for STD (sexually transmitted disease) Z11.3 [facility] [address], [place] [address]- 6337 Sep, ADHD (attention deficit hyperactivity disorder), combined type F90.2 ; Anxiety state F41.1 and Depressive disorder, not elsewhere classified F32.9 [facility] [address], [place] [address]- 9075 Sep, ADHD (attention deficit hyperactivity disorder), combined type F90.2 and Depressive disorder, not elsewhere classified F32.9 [facility] [address], [place] [address]- 7453 Aug, [facility] [address], [place] [address]- 1132 Aug, ADHD (attention deficit hyperactivity disorder), combined type F90.2 and Depressive disorder, not elsewhere classified F32.9 [facility] [address], [place] [address]- 4776 Aug, ADHD (attention deficit hyperactivity disorder), combined type F90.2 ; Anxiety state F41.1 and Depressive disorder, not elsewhere classified F32.9 [facility] [address], [place] [address]- 0308 Aug, [facility] [id number] [place] [address] 91024- 9875 Aug, [facility] [id number] [place] [address] 85572- 9297 Jul, ADHD (attention deficit hyperactivity disorder), combined type F90.2 ; Depressive disorder, not elsewhere classified F32.9 and Anxiety state F41.1 [facility] [id number] [place] [address] 37257- 4583 Jul, [facility] [id number] [place] [address] 44998- 2375 Jul, ADHD (attention deficit hyperactivity disorder), combined type F90.2 ; Anxiety state F41.1 and Depressive disorder, not elsewhere classified F32.9 [facility] [id number] [place] [address] 51250- 0040 June, [facility] [id number] [place] [address] [id number] June, Constipation K59.00 [facility] [id number] [place] [address] 60388- 2756 May, Constipation K59.00 [facility] [id number] [place] [address] 88557 -7817 May, Irritable bowel syndrome with diarrhea K58.0 [facility] [id number] [place] [address] 64042- 6506 May, [facility] [id number] [place] [address] 36702- 4435 May, [facility] [id number] [place] [address] 26036- 8267 14 May, 2014 [facility] [id number] [place] [address] 38132- 0960 May, [facility] [place] [facility] [address] [id number] [place] [address]- 5124 Jan, [facility] [place] [facility] [address] [id number] [place] [address]- 8973 Jan, [facility] [place] [facility] [address] [id number] [place] 5176 Jan, [facility] [place] [facility] [address] [id number] [place] [address]- 1091 Jan, [facility] [place] [facility] [address] [id number] [place] [address]- 4305 Jan, [facility] [place] [facility] [address] [id number] [place] [address]- 7066 Jan, [facility] [place] [facility] [address] [id number] [place] [address]- 4668 Nov, [facility] [place] [facility] [address] [id number] [place] [address]- 0251 Nov, [facility] [place] [facility] [address] [id number] [place] [address]- 4166 Oct, [facility] [place] [facility] [address] [id number] [place] [address]- 5400 Oct, [facility] [place] [facility] [address] [id number] [place] [address]- 2652 Sep, [facility] [place] [facility] [address] [id number] [address]- 1711 Sep, [facility] [place] [facility] [address] [id number] [place] [address]- 7051 Aug, [facility] [place] [facility] [address] [id number] [place] [address]- 8917 Aug, [facility] [place] [facility] [address] [id number] [place] [address]- 5706 Aug, [facility] [place] [facility] [address] [id number] [place] [address]- 7663 Aug, [facility] [place] [facility] [address] [id number] [place] [address]- 7805 Aug, [facility] [place] [facility] [address] [id number] [place] [address]- 0352 Aug, [facility] [place] [facility] [address] [id number] [place] [address]- 0662 Aug, [facility] [place] [facility] [address] [id number] [place] [address]- 7911 Aug, [facility] [place] [facility] [address] [id number] [place] [address]- 9660 Jul, [facility] [place] [facility] [address] [id number] [place] [address]- 1623 Jul, [facility] [place] [facility] [address] [id number] [place] [address]- 9448 Jul, [facility] [place] [facility] [address] [id number] [place] [address]- 4440 Jul, [facility] [place] [facility] [address] [id number] [place] [address]- 9557 Jul, [facility] [place] [facility] [address] [id number] [place] [address]- 1458 Jul, [facility] [place] [facility] [address] [id number] [place] [address]- 3045 Jul, [facility] [place] [facility] [address] [id number] [place] [address]- 2928 Jul, [facility] [place] [facility] [address] [id number] [place] [address]- 5688 Jul, [facility] [place] [facility] [address] [id number] [place] [address]- 4706 June, [facility] [place] [facility] [address] [id number] [place] [address]- 8700 June, [facility] [place] [facility] [address] [id number] [place] [address]- 6825 May, [facility] [place] [facility] [address] [id number] [place] [address]- 4285 May, [facility] [place] [facility] [address] [id number] [place] [address]- 8767 May, [facility] [place] [facility] [address] [id number] [place] [address]- 2707 May, [facility] [place] [facility] [address] [id number] [place] [address]- 1012 May, [facility] [place] [facility] [address] [id number] [place] [address]- 0421 May, [facility] [place] [facility] [address] [id number] [place] [address]- 0843 May, [facility] [place] [facility] [address] [id number] [place] [address]- 3404 May, [facility] [place] [facility] [address] [id number] [place] [address]- 5321 May, [facility] [place] [facility] [address] [id number] [place] [address]- 5883 May, [facility] [place] [facility] [address] [id number] [place] [address]- 9261 May, [facility] [place] [facility] [address] [id number] [place] [address]- 2034 May, [facility] [place] [facility] [address] [id number] [place] [address]- 9895 Apr, [facility] [place] [facility] [address] [id number] [place] [address]- 2324 Apr, [facility] [place] [facility] [address] [id number] [place] [address]- 6262 Apr, [facility] [place] [facility] [address] [id number] [place] [address]- 8860 Apr, [facility] [place] [facility] [address] [id number] [place] [address]- 1050 Mar, [facility] [place] [facility] [address] [id number] [place] [address]- 9806 Mar, [facility] [place] [facility] [address] [facility] [id number] [place] [address]- 1516 Mar, [facility] [place] [facility] [address] [id number] [place] [address]- 8951 Mar, [facility] [place] [facility] [address] [id number] [place] [address]- 6686 Mar, [facility] [place] [facility] [address] [facility] [id number] [place] [address]- 5926 Mar, [facility] [place] [facility] [address] [facility] [id number] [place] [address]- 1268 Mar, 2013 [facility] [place] [facility] [address] [facility] [id number] [place] [address]- 6499 Mar, [facility] [place] [facility] [address] [facility] [id number] [place] [address]- 8153 Mar, [facility] [place] [facility] [address] [facility] [id number] [place] [address]- 8868 19 Mar, 2013 [facility] [place] [facility] [address] [facility] [id number] [place] [address]- 2546 14 Mar, 2013 [facility] [place] [facility] [address] [facility] [id number] [place] [address]- 2545 14 Mar, 2013 [facility] [place] [facility] [address] [facility] [id number] [place] [address]- 9583 13 Mar, 2013 [facility] [place] [facility] [address] [facility] [id number] [place] [address]- 2546 13 Mar, 2013 [facility] [place] [facility] [address] [facility] [id number] [place] [address]- 7880 Mar, [facility] [place] [facility] [address] [id number] [place] [address]- 4526 Mar, [facility] [place] [facility] [address] [id number] [place] [address]- 8921 Mar, [facility] [place] [facility] [address] [id number] [place] [address]- 8554 Mar, [facility] [place] [facility] [address] [id number] [place] [address]- 9948 Mar, [facility] [place] [facility] [address] [id number] [place] [address]- 8074 Mar, [facility] [place] [facility] [address] [id number] [place] [address]- 6913 Feb, [facility] [place] [facility] [address] [id number] [place] [address]- 9774 Feb, [facility] [place] [facility] [address] [id number] [place] [address]- 4809 Feb, [facility] [place] [facility] [address] [id number] [place] [address]- 1444 Feb, [facility] [place] [facility] [address] [id number] [place] [address]- 5400 Feb, [facility] [place] [facility] [address] [id number] [place] [address]- 2913 Feb, [facility] [place] [facility] [address] [id number] [place] [address]- 7727 Feb, [facility] [place] [facility] [address] [id number] [place] [address]- 2958 Feb, [facility] [place] [facility] [address] [id number] [place] [address]- 1853 Feb, [facility] [place] [facility] [address] [id number] [place] [address] Feb, [facility] [place] [facility] [address] [id number] [place] [address] 23 Feb, 2013 [facility] [address] [id number] [place] [address] 17 Feb, 2013 [facility] [address] [id number] [place] [address] 17 Feb, 2013 [facility] [address] [id number] [place] [address] 16 Feb, 2013 [facility] [address] [id number] [place] [address] 16 Feb, 2013 [facility] [address] [id number] [place] [address] 15 Feb, 2013 [facility] [address] [id number] [place] [address] Feb, [facility] [address] [id number] [place] [address] Feb, [facility] [address] [id number] [place] [address] Feb, [facility] [address] [id number] [place] [address] Feb, [facility] [address] [id number] [place] [address] Feb, [facility] [address] [id number] [place] [address] Feb, [facility] [address] [id number] [place] [address] Feb, [facility] [address] [id number] [place] [address] Jan, [facility] [place] [facility] [address] [id number] [place] [address] Jan, [facility] [address] [id number] [place] [address] Jan, [facility] [address] [id number] [place] [address] 18 Jan, 2013 [facility] [place] [facility] [address] [id number] [place] [address] Jan, [facility] [place] [facility] [address] [id number] [place] [address] Jan, [facility] [place] [facility] [address] [id number] [place] [address] Jan, [facility] [address] [id number] [place] [address]- [address] Jan, [facility] [place] [facility] [address] [id number] [place] [address] Jan, [facility] [place] [facility] [address] [facility] [id number] [place] [address] Jan, [facility] [place] [facility] [address] [id number] [place] [address] Jan, [facility] [place] [facility] [address] [id number] [place] [address] Jan, [facility] [place] [facility] [address] [facility] [id number], [place] [address] Jan, [facility] [place] [facility] [address] [facility] [id number], [place] [address] Dec, [facility] [place] [facility] [address] [id number], [place] [address] Dec, [facility] [place] [facility] [address] [id number], [place] [address] Dec, [facility] [address] [id number], [place] [address] Dec, [facility] [address] [facility] [id number], [place] [address] 15 Dec, 2012 [facility] [address] [id number], [place] [address] Dec, [facility] [id number], [place] [address] Nov, [facility] [id number] [place] [id number] Nov, [facility] [id number], [place] [address] Nov, [facility] [id number] [place] [address] Nov, [facility] [id number] [place] [address]- [address] Nov, [facility] [id number] [place] [address] Nov, [facility] [id number] [place] [address]- [phone] Oct, [facility] [id number] [place] [address]- [address] Oct, [facility] [id number] [place] [address]- [address] Oct, [facility] [id number], [place] [address] Oct, [facility] [id number] [place] [id number]- [address] Oct, [facility] [id number], [place] [address] 18 Oct, 2012 [facility] [id number] [place] [phone]- [address] Oct, IMMUNIZATIONS No Known Immunizations SOCIAL HISTORY Never Assessed REASON FOR VISIT ritalin 07/28/2016 PLAN OF CARE VITAL SIGNS MEDICATIONS Medication Instructions Dosage Frequency Start Date End Date Duration Status Ritalin LA 20 mg Orally Once a day 1 capsule in the morning 24h Jul, 28 days Active RESULTS No Results PROCEDURES No [...]
--- OUTSIDE RECORDS SUMMARY | 2017-07-25 16:44 | XMS REPORT ---
Author Author ROOTSAMUEL Hou Organization [facility] Address [address] [place] [address] Care Team Providers Care Federal Aid Coordinator Name Role Phone SAMUEL ROOT Unavailable PROBLEMS Type Condition ICD9-CM Code [id number] Code Onset Dates Condition Status SNOMED Code Problem Anxiety state F41.1 Active 026467023 Problem Depressive disorder, not elsewhere classified F32.9 Active 26221168 Problem ADHD (attention deficit hyperactivity disorder), combined type F90.2 Active 76065325 Problem Irritable bowel syndrome with diarrhea K58.0 Active 391129229 Problem Plantar wart of right foot B07.0 Active [id number] Problem Slow transit constipation K59.01 Active 92972476 Problem Rhinitis, unspecified type J31.0 Active 70729724 Problem Anxiety disorder, unspecified type F41.9 Active 844932560 Problem Major depressive disorder, single episode, mild F32.0 Active 98637930 ALLERGIES No Known Allergies ENCOUNTERS Encounter Location Date Diagnosis [facility] [id number] [place] [address] 19778- 4262 May, [facility] [address] [address] Apr, Anxiety disorder, unspecified type F41.9 [facility] [id number] [place] [address] 65434- 3161 Apr, Anxiety disorder, unspecified type F41.9 ; Major depressive disorder, single episode, mild F32.0 and ADHD (attention deficit hyperactivity disorder), combined type F90.2 [facility] [address] [address] Apr, [facility] [id number] [place] [address] 57762- 0490 Apr, ADHD (attention deficit hyperactivity disorder), combined type F90.2 ; Anxiety state F41.1 ; Depressive disorder, not elsewhere classified F32.9 ; Major depressive disorder, single episode, mild F32.0 and Anxiety disorder, unspecified type F41.9 [facility] [address] [place] [address] 92046- 9173 Mar, ADHD (attention deficit hyperactivity disorder), combined type F90.2 [facility] [id number] [place] [address] 10350- 0091 Mar, Nausea R11.0 [place] [id number] [place] [address] 28097- 2259 Mar, Screening for STD (sexually transmitted disease) Z11.3 ; Vaginal candidiasis B37.3 and Irritable bowel syndrome with diarrhea K58.0 [place] [id number] [place] [address] 42812- 8139 Mar, [facility] [id number] [place] [address] 53073- 9708 Feb, ADHD (attention deficit hyperactivity disorder), combined type F90.2 [facility] [id number] [place] [address] 36756- 8076 Feb, Depressive disorder, not elsewhere classified F32.9 ; Anxiety state F41.1 and ADHD (attention deficit hyperactivity disorder), combined type F90.2 [facility] [id number] [place] [address] 04140- 7039 Feb, Depressive disorder, not elsewhere classified F32.9 ; Anxiety state F41.1 and ADHD (attention deficit hyperactivity disorder), combined type F90.2 [facility] [id number] [place] [address] 51766- 1072 Feb, ADHD (attention deficit hyperactivity disorder), combined type F90.2 [facility] [id number] [place] [address] 73633 -4911 Jan, Other viral agents as the cause of diseases classified elsewhere B97.89 and Acute upper respiratory infection, unspecified J06.9 [place] [address] [address] 5018 Jan, ADHD (attention deficit hyperactivity disorder), combined type F90.2 ; Major depressive disorder, single episode, mild F32.0 and Anxiety disorder, unspecified type F41.9 [place] [address] [place] [address] 29197- 2833 Jan, [facility] [id number] [place] [address] 26357- 4705 Jan, ADHD (attention deficit hyperactivity disorder), combined type F90.2 ; Major depressive disorder, single episode, mild F32.0 and Anxiety disorder, unspecified type F41.9 [place] [id number] [place] [address] 32440- 0477 Dec, Irritable bowel syndrome with diarrhea K58.0 and Lower abdominal pain R10.30 [place] [id number] [place] [address] 88932- 9649 Dec, Hospital discharge follow-up Z09 ; Mesenteric adenitis I88.0 ; IBD (inflammatory bowel disease) K52.9 and Nausea R11.0 [place] [address] [address] 3[address] Nov, ADHD (attention deficit hyperactivity disorder), combined type F90.2 ; Major depressive disorder, single episode, mild F32.0 and Anxiety disorder, unspecified type F41.9 [place] [address] [place] [address] 95490- 3357 Nov, Anxiety state F41.1 ; ADHD (attention deficit hyperactivity disorder), combined type F90.2 ; Major depressive disorder, single episode, mild F32.0 and Anxiety disorder, unspecified type F41.9 [place] [address] [place] [address] 31737- 5822 Oct, Anxiety state F41.1 ; ADHD (attention deficit hyperactivity disorder), combined type F90.2 ; Major depressive disorder, single episode, mild F32.0 and Anxiety disorder, unspecified type F41.9 [place] [id number] [place] [address] 07535- 0158 Oct, ADHD (attention deficit hyperactivity disorder), combined type F90.2 ; Major depressive disorder, single episode, mild F32.0 and Anxiety disorder, unspecified type F41.9 [facility] [id number] [place] [address] 50280- 7243 Oct, Major depressive disorder, single episode, mild F32.0 ; Anxiety state F41.1 ; ADHD (attention deficit hyperactivity disorder), combined type F90.2 and Depressive disorder, not elsewhere classified F32.9 [facility] [id number] [place] [address] 32887 -2553 16 Oct, 2016 [facility] [place] [id number] [place] [address] 42735 -7574 Oct, Cellulitis L03.90 and Plantar wart of right foot B07.0 [place] [id number] [place] [address] 56672- 5215 Aug, ADHD (attention deficit hyperactivity disorder), combined type F90.2 ; Major depressive disorder, single episode, mild F32.0 and Anxiety disorder, unspecified type F41.9 [place] [id number] [place] [address] 71443- 8400 Aug, [place] [id number] [place] [address] 51344- 7609 Jul, ADHD (attention deficit hyperactivity disorder), combined type F90.2 [place] [id number] [place] [address] 72912- 8918 Jul, Mesenteric adenitis I88.0 [place] [id number] [place] [address] 09052- 9997 June, [facility] [id number] [place] [address] 99428 -9033 June, Lower abdominal pain R10.30 [facility] [id number] [place] [address] 36566- 5334 June, [facility] [id number] [place] [address] 09908- 5003 June, ADHD (attention deficit hyperactivity disorder), combined type F90.2 and Major depressive disorder, single episode, mild F32.0 [facility] [address] 10209- 5118 May, [facility] [id number] [place] [address] 18034- 7273 May, ADHD (attention deficit hyperactivity disorder), combined type F90.2 and Major depressive disorder, single episode, mild F32.0 [facility] [id number] [place] [address] 65703 -4560 Apr, Abdominal pain R10.9 and Gastroenteritis and colitis, viral A08.4 [place] [id number] [place] [address] 65729- 0345 Apr, [facility] [id number] [place] [address] 09915 -3452 Mar, Acute urticaria L50.8 [place] [id number] [place] [address] 27033- 6879 Mar, [facility] [id number] [place] [address] 04199- 2039 Feb, [facility] [id number] [place] [address] 52379 -0250 Feb, Gastroenteritis K52.9 [place] [id number] [place] [address] 17973- 7066 Feb, Irritant contact dermatitis due to cosmetics L24.3 [place] [id number] [place] [address] 34300- 9915 Jan, [place] [id number] [place] [address] 72444- 7072 Jan, [facility] [address] 43576- 8287 Jan, ADHD (attention deficit hyperactivity disorder), combined type F90.2 and Major depressive disorder, single episode, mild F32.0 [facility] [address] 40286 -5640 Dec, Flexural eczema L20.82 [facility] [address] 91011- 9329 Dec, Encounter for test Z32.00 [place] [address] 37926- 2280 Dec, [facility] [address] 87294- 2036 Dec, [facility] [address] 70454- 4625 Dec, [facility] [address] 04057 -3533 Nov, Sore throat J02.9 and Pharyngitis, unspecified etiology J02.9 [facility] [id number] [place] [address] 42334- 3618 Nov, [facility] [id number] [place] [address] 50257- 2725 Nov, [place] [address] 64874- 8912 Nov, Generalized abdominal pain R10.84 and Slow transit constipation K59.01 [facility] [id number] [place] [address] [id number] Nov, Pharyngitis, unspecified etiology J02.9 and Rhinitis, unspecified type J31.0 [facility] [address] 37462- 4723 Oct, Depressive disorder, not elsewhere classified F32.9 and ADHD (attention deficit hyperactivity disorder), combined type F90.2 [facility] [address] [address]- 0498 Oct, [facility] [address] [address]- 7323 Oct, [facility] [address] [place] [address] 02326 -4887 Oct, Strep throat J02.0 [facility] [address] [place] [address] 66469- 8176 Oct, [facility] [address] [place] [address] 52218- 2816 Oct, Well woman exam with routine gynecological exam Z01.419 and Screening for STD (sexually transmitted disease) Z11.3 [place] [address] [address]- 5071 Sep, ADHD (attention deficit hyperactivity disorder), combined type F90.2 ; Anxiety state F41.1 and Depressive disorder, not elsewhere classified F32.9 [facility] [address] [address]- 9942 Sep, ADHD (attention deficit hyperactivity disorder), combined type F90.2 and Depressive disorder, not elsewhere classified F32.9 [facility] [address] [address]- 7248 Aug, [facility] [address] [address]- 6764 Aug, ADHD (attention deficit hyperactivity disorder), combined type F90.2 and Depressive disorder, not elsewhere classified F32.9 [facility] [address] [address]- 6023 Aug, ADHD (attention deficit hyperactivity disorder), combined type F90.2 ; Anxiety state F41.1 and Depressive disorder, not elsewhere classified F32.9 [facility] [address] [address]- 4025 Aug, [facility] [id number] [place] [address] 07303- 2514 Aug, [facility] [id number] [place] [address] 02996- 4702 Jul, ADHD (attention deficit hyperactivity disorder), combined type F90.2 ; Depressive disorder, not elsewhere classified F32.9 and Anxiety state F41.1 [facility] [address] [address]- 7335 Jul, [facility] [id number] [place] [address] 70389- 8131 Jul, ADHD (attention deficit hyperactivity disorder), combined type F90.2 ; Anxiety state F41.1 and Depressive disorder, not elsewhere classified F32.9 [facility] [id number] [place] [address] 81078- 6097 June, [facility] [address] [place] [address] [id number] June, Constipation K59.00 [facility] [id number] [place] [address] 64514- 6624 May, Constipation K59.00 [facility] [address] [place] [address] 02713 -6015 May, Irritable bowel syndrome with diarrhea K58.0 [facility] [address] [address]- 8838 May, [facility] [id number] [place] [address] 44491- 7696 May, [facility] [address] [place] [address] 81118- 4866 14 May, 2014 [facility] [id number] [place] [address] 72564- 8576 May, [facility] [place] [facility] [address] [id number] [place] [address]- 6831 Jan, [facility] [place] [facility] [address] [id number] [place] [address]- 4134 Jan, [facility] [place] [facility] [address] [id number] [place] [address]- 2242 Jan, [facility] [place] [facility] [address] [id number] [place] [address]- 6597 Jan, [facility] [place] [facility] [address] [id number] [place] [address]- 0298 Jan, [facility] [place] [facility] [address] [id number] [place] [address]- 0096 Jan, [facility] [place] [facility] [address] [id number] [place] [address]- 1146 Nov, [facility] [place] [facility] [address] [id number] [place] [address]- 1892 Nov, [facility] [place] [facility] [address] [id number] [place] [address]- 6237 Oct, [facility] [place] [facility] [address] [id number] [place] [address]- 3865 Oct, [facility] [place] [facility] [address] [id number] [place] [address]- 3640 Sep, [facility] [place] [facility] [address] [id number] [place] [address]- 9314 Sep, [facility] [place] [facility] [address] [id number] [place] [address]- 4849 Aug, [facility] [place] [facility] [address] [id number] [place] [address]- 6827 Aug, [facility] [place] [facility] [address] [id number] [place] [address]- 5957 Aug, [facility] [place] [facility] [address] [id number] [place] [address]- 9558 Aug, [facility] [place] [facility] [address] [id number] [place] [address]- 0713 Aug, [facility] [place] [facility] [address] [id number] [place] [address]- 9866 Aug, [facility] [place] [facility] [address] [id number] [place] [address]- 5632 Aug, [facility] [place] [facility] [address] [id number] [place] [address]- 7586 Aug, [facility] [place] [facility] [address] [id number] [place] [address]- 6752 Jul, [facility] [place] [facility] [address] [id number] [place] [address]- 2962 Jul, [facility] [place] [facility] [address] [id number] [place] [address]- 8022 Jul, [facility] [place] [facility] [address] [id number] [place] [address]- 1377 Jul, [facility] [place] [facility] [address] [id number] [place] [address]- 1310 Jul, [facility] [place] [facility] [address] [id number] [place] [address]- 5948 Jul, [facility] [place] [facility] [address] [id number] [place] [address]- 0555 Jul, [facility] [place] [facility] [address] [id number] [place] [address]- 3822 Jul, [facility] [place] [facility] [address] [id number] [place] [address]- 4878 Jul, [facility] [place] [facility] [address] [id number] [place] [address]- 7607 June, [facility] [place] [facility] [address] [id number] [place] [address]- 2926 June, [facility] [place] [facility] [address] [id number] [place] [address]- 3314 May, [facility] [place] [facility] [address] [id number] [place] [address]- 3797 May, [facility] [place] [facility] [address] [id number] [place] [address]- 8787 May, [facility] [place] [facility] [address] [id number] [place] [address]- 7497 May, [facility] [place] [facility] [address] [id number] [place] [address]- 4190 May, [facility] [place] [facility] [address] [id number] [place] [address]- 7059 May, [facility] [place] [facility] [address] [id number] [place] [address]- 3263 May, [facility] [place] [facility] [address] [id number] [place] [address]- 3769 May, [facility] [place] [facility] [address] [id number] [place] [address]- 3538 May, [facility] [place] [facility] [address] [id number] [place] [address]- 3767 May, [facility] [place] [facility] [address] [id number] [place] [address]- 2323 May, [facility] [place] [facility] [address] [id number] [place] [address]- 4524 May, [facility] [place] [facility] [address] [id number] [place] [address]- 7592 Apr, [facility] [place] [facility] [address] [id number] [place] [address] 5123 Apr, [facility] [place] [facility] [address] [id number] [place] [address]- 7458 Apr, [facility] [place] [facility] [address] [id number] [place] [address]- 2071 Apr, [facility] [place] [facility] [address] [id number] [place] [address]- 9527 Mar, [facility] [place] [facility] [address] [id number] [place] [address]- 9246 Mar, [facility] [place] [facility] [address] [facility] [id number] [place] [address]- 2816 Mar, [facility] [place] [facility] [address] [facility] [id number] [place] [address]- 8372 Mar, [facility] [place] [facility] [address] [id number] [place] [address]- 5968 Mar, [facility] [place] [facility] [address] [facility] [id number] [place] [address]- 9139 Mar, [facility] [place] [facility] [address] [facility] [id number] [place] [address]- 9621 Mar, [facility] [place] [facility] [address] [facility] [id number] [place] [address]- 6456 Mar, [facility] [place] [facility] [address] [facility] [id number] [place] [address]- 9380 Mar, [facility] [place] [facility] [address] [facility] [id number] [place] [address]- 1825 Mar, [facility] [place] [facility] [address] [facility] [id number] [place] [address]- 9486 14 Mar, 2013 [facility] [place] [facility] [address] [facility] [id number] [place] [address]- 2547 14 Mar, 2013 [facility] [place] [facility] [address] [facility] [id number] [place] [address]- 5112 13 Mar, 2013 [facility] [place] [facility] [address] [facility] [id number] [place] [address]- 6895 13 Mar, 2013 [facility] [place] [facility] [address] [facility] [id number] [place] [address]- 3862 Mar, [facility] [place] [facility] [address] [id number] [place] [address]- 2439 Mar, [facility] [place] [facility] [address] [id number] [place] [address]- 9510 Mar, [facility] [place] [facility] [address] [id number] [place] [address]- 6419 Mar, [facility] [place] [facility] [address] [id number] [place] [address]- 1412 Mar, [facility] [place] [facility] [address] [id number] [place] [address]- 7253 Mar, [facility] [place] [facility] [address] [id number] [place] [address]- 1977 Feb, [facility] [place] [facility] [address] [id number] [place] [address]- 6401 Feb, [facility] [place] [facility] [address] [id number] [place] [address]- 1813 Feb, [facility] [place] [facility] [address] [id number] [place] [address]- 1251 Feb, [facility] [place] [facility] [address] [id number] [place] [address]- 7943 Feb, [facility] [place] [facility] [address] [id number] [place] [address]- 9877 Feb, [facility] [place] [facility] [address] [id number] [place] [address]- 6946 Feb, [facility] [place] [facility] [address] [id number] [place] [address]- 5152 Feb, [facility] [place] [facility] [address] [id number] [place] [address]- 7724 Feb, [facility] [place] [facility] [address] [id number] [place] [address]- 6845 Feb, [facility] [place] [facility] [address] [id number] [place] [address]- 4998 23 Feb, 2013 [facility] [address] [id number] [place] [address]- 9901 17 Feb, 2013 [facility] [place] [facility] [address] [id number] [place] [address]- 5755 17 Feb, 2013 [facility] [place] [facility] [address] [id number] [place] [address]- 7033 16 Feb, 2013 [facility] [place] [facility] [address] [id number] [place] [address]- 1890 16 Feb, 2013 [facility] [place] [facility] [address] [id number] [place] [address] Feb, [facility] [place] [facility] [address] [id number] [place] [address] Feb, [facility] [place] [facility] [address] [id number] [place] [address] Feb, [facility] [place] [facility] [address] [id number] [place] [address] Feb, [facility] [place] [facility] [address] [id number] [place] [address] Feb, [facility] [place] [facility] [address] [id number] [place] [address] Feb, [facility] [place] [facility] [address] [id number] [place] [address] Feb, [facility] [place] [facility] [address] [id number] [place] [address] Feb, [facility] [place] [facility] [address] [id number] [place] [address] Jan, [facility] [place] [facility] [address] [id number] [place] [address] Jan, [facility] [place] [facility] [address] [id number] [place] [address] Jan, [facility] [place] [facility] [address] [id number] [place] [address] 18 Jan, 2013 [facility] [address] [id number] [place] [address] 18 Jan, 2013 [facility] [place] [facility] [address] [id number] [place] [address] 18 Jan, 2013 [facility] [place] [facility] [address] [id number] [place] [address]- [address] Jan, [facility] [address] [id number] [place] [address] 80[address] 17 Jan, 2013 [facility] [place] [facility] [address] [id number] [place] [address] Jan, [facility] [address] [id number] [place] [address] Jan, [facility] [address] [id number] [place] [address] Jan, [facility] [address] [id number] [place] [address] Jan, [facility] [place] [facility] [address] [id number] [place] [address] Jan, [facility] [place] [facility] [address] [id number] [place] [address] Dec, [facility] [place] [facility] [address] [id number] [place] [address] 20 Dec, 2012 [facility] [place] [facility] [address] [id number] [place] [address] Dec, [facility] [place] [facility] [address] [id number] [place] [address] 20 Dec, 2012 [facility] [place] [facility] [address] [id number] [place] [address] 15 Dec, 2012 [facility] [place] [facility] [address] [id number] [place] [address] Dec, [facility] [address] [facility] [id number] [place] [address] Nov, [facility] [id number] [place] [address] Nov, [facility] [address] [id number] [address] Nov, [facility] [address] [facility] [id number] [id number] Nov, [facility] [address] [facility] [id number] [address] Nov, [facility] [id number] [place] [id number] Nov, [facility] [id number] [place] [address] 28 Oct, 2012 [facility] [id number] [place] [address] 27 Oct, 2012 [facility] [id number] [address] 26 Oct, 2012 [facility] [id number] [address] 25 Oct, 2012 [facility] [id number] [address] 25 Oct, 2012 [facility] [id number] [address] 18 Oct, 2012 [facility] [id number] [address] 13 Oct, 2012 IMMUNIZATIONS No Known Immunizations SOCIAL HISTORY Never Assessed REASON FOR VISIT Abdominal pain, RLQ radiating to back--DBennettRN PLAN OF CARE Activity Details Follow Up 3 Months, prn Reason: VITAL SIGNS Height 59 in 2016-07-25 Weight 131 lbs 2016-07-25 Temperature 98.1 degrees Fahrenheit 2016-07-25 Heart Rate regular:88 bpm 2016-07-25 Respiratory Rate 20 2016-07-25 BMI 26.46 kg/m2 2016-07-25 Blood pressure systolic 112 mmHg 2016-07-25 Blood pressure diastolic 70 mmHg 2016-07-25 MEDICATIONS Medication Instructions Dosage Frequency Start Date End Date Duration Status HydrOXYzine HCl 25 MG Orally TID 1 tablet as needed 8h Jan, 30 days Active Flagyl 500 mg Orally 2 times a day 1 tablet 12h June, June, 10 day(s) Active Ritalin LA 20 MG Orally Once a day 1 capsule in the morning 24h June, Jul, 30 days Active Cefdinir 300 MG Orally every 12 hrs 1 capsule 12h Active Venlafaxine HCl ER 150 MG Orally Once a day 1 capsule with food 24h May 30 days Active Ketorolac Tromethamine 10 MG Orally every 6 hrs 1 tablet with food or milk as needed 6h Active RESULTS No Results PROCEDURES No Known [...]
--- OUTSIDE RECORDS SUMMARY | 2017-07-25 16:46 | XMS REPORT ---
Author Author JENNIFER HARIKA [facility] Address [address] [place] [address] Care Team Providers Care Weigher Packing Name Role Phone JENNIFERHARIKA Unavailable PROBLEMS Type Condition ICD9-CM Code VNP81-UR Code Onset Dates Condition Status SNOMED Code Problem Anxiety state F41.1 Active 332849015 Problem Depressive disorder, not elsewhere classified F32.9 Active 98054805 Problem ADHD (attention deficit hyperactivity disorder), combined type F90.2 Active 28277540 Problem Irritable bowel syndrome with diarrhea K58.0 Active 227488962 Problem Plantar wart of right foot B07.0 Active [id number] Problem Slow transit constipation K59.01 Active 72842585 Problem Rhinitis, unspecified type J31.0 Active 75356095 Problem Anxiety disorder, unspecified type F41.9 Active 899572054 Problem Major depressive disorder, single episode, mild F32.0 Active 81245924 ALLERGIES No Known Allergies ENCOUNTERS Encounter Location Date Diagnosis [place] [id number] [place] [address] 24697- 6139 Jul, [facility] [id number] [place] [address] 77572- 1280 June, ADHD (attention deficit hyperactivity disorder), combined type F90.2 ; Major depressive disorder, single episode, mild F32.0 and Anxiety disorder, unspecified type F41.9 [facility] [id number] [address] 6388 June, [facility] [address] [place] [id number] [place] [address] 72804- 4871 June, ADHD (attention deficit hyperactivity disorder), combined type F90.2 [facility] [id number] [place] [address] 79237- 9287 May, [facility] [address] [address] 3832 May, ADHD (attention deficit hyperactivity disorder), combined type F90.2 ; Major depressive disorder, single episode, mild F32.0 and Anxiety disorder, unspecified type F41.9 [facility] [address] [address] 7909 May, Anxiety disorder, unspecified type F41.9 [facility] [id number] [address] 2544 Apr, [facility] [address] [id number] [place] [address] 73992- 6646 Apr, Anxiety disorder, unspecified type F41.9 [facility] [address] [address] 6358 Apr, Anxiety disorder, unspecified type F41.9 ; Major depressive disorder, single episode, mild F32.0 and ADHD (attention deficit hyperactivity disorder), combined type F90.2 [facility] [address] [address] 8392 Apr, [facility] [id number] [place] [address] 92165- 5431 Apr, ADHD (attention deficit hyperactivity disorder), combined type F90.2 ; Anxiety state F41.1 ; Depressive disorder, not elsewhere classified F32.9 ; Major depressive disorder, single episode, mild F32.0 and Anxiety disorder, unspecified type F41.9 [facility] [id number] [address] 9314 Mar, ADHD (attention deficit hyperactivity disorder), combined type F90.2 [facility] [address] [address] 5328 Mar, Nausea R11.0 [facility] [address] [address] 7472 Mar, Screening for STD sexually transmitted disease Z11.3 ; Vaginal candidiasis B37.3 and Irritable bowel syndrome with diarrhea K58.0 [place] [address] [address] 4628 04 Mar, 2017 [facility] [address] [place] [address] 39204- 5559 Feb, ADHD (attention deficit hyperactivity disorder), combined type F90.2 [facility] [address] [address]- 3476 Feb, Depressive disorder, not elsewhere classified F32.9 ; Anxiety state F41.1 and ADHD (attention deficit hyperactivity disorder), combined type F90.2 [place] [address] [place] [address] 36785- 8278 Feb, Depressive disorder, not elsewhere classified F32.9 ; Anxiety state F41.1 and ADHD (attention deficit hyperactivity disorder), combined type F90.2 [place] [id number] [place] [address] 30588- 2434 Feb, ADHD (attention deficit hyperactivity disorder), combined type F90.2 [facility] [id number] [place] [address] 49596 -8905 Jan, Other viral agents as the cause of diseases classified elsewhere B97.89 and Acute upper respiratory infection, unspecified J06.9 [place] [address] [address]- 6026 Jan, ADHD (attention deficit hyperactivity disorder), combined type F90.2 ; Major depressive disorder, single episode, mild F32.0 and Anxiety disorder, unspecified type F41.9 [place] [address] [address]- 8371 Jan, [place] [address] [place] [address] 20557- 4103 Jan, ADHD (attention deficit hyperactivity disorder), combined type F90.2 ; Major depressive disorder, single episode, mild F32.0 and Anxiety disorder, unspecified type F41.9 [place] [address] [place] [address] 67144- 3967 28 Dec, 2016 Irritable bowel syndrome with diarrhea K58.0 and Lower abdominal pain R10.30 [place] [address] [place] [id number] [place] [address] 88412- 3353 09 Dec, 2016 Hospital discharge follow-up Z09 ; Mesenteric adenitis I88.0 ; IBD (inflammatory bowel disease) K52.9 and Nausea R11.0 [place] [address] [place] [address] 70727- 3262 Nov, ADHD (attention deficit hyperactivity disorder), combined type F90.2 ; Major depressive disorder, single episode, mild F32.0 and Anxiety disorder, unspecified type F41.9 [place] [address] [place] [id number] [place] [address] 73594- 0566 Nov, Anxiety state F41.1 ; ADHD (attention deficit hyperactivity disorder), combined type F90.2 ; Major depressive disorder, single episode, mild F32.0 and Anxiety disorder, unspecified type F41.9 [place] [address] [place] [id number] [place] [address] 22006- 6937 Oct, Anxiety state F41.1 ; ADHD (attention deficit hyperactivity disorder), combined type F90.2 ; Major depressive disorder, single episode, mild F32.0 and Anxiety disorder, unspecified type F41.9 [place] [address] [place] [address] 42920- 7503 Oct, ADHD (attention deficit hyperactivity disorder), combined type F90.2 ; Major depressive disorder, single episode, mild F32.0 and Anxiety disorder, unspecified type F41.9 [place] [address] [place] [address] 96459- 1860 Oct, Major depressive disorder, single episode, mild F32.0 ; Anxiety state F41.1 ; ADHD (attention deficit hyperactivity disorder), combined type F90.2 and Depressive disorder, not elsewhere classified F32.9 [facility] [address] [place] [address] 55691 -8125 Oct, [facility] [address] [place] [id number] [place] [address] 29044 -4358 Oct, Cellulitis L03.90 and Plantar wart of right foot B07.0 [facility] [address] [place] [address] [id number] [place] [address] 18117- 7971 Aug, ADHD (attention deficit hyperactivity disorder), combined type F90.2 ; Major depressive disorder, single episode, mild F32.0 and Anxiety disorder, unspecified type F41.9 [facility] [address] [place] [id number] [place] [address] 21834- 1532 Aug, [facility] [address] [id number] [place] [address] 24059- 1870 Jul, ADHD (attention deficit hyperactivity disorder), combined type F90.2 [facility] [address] [place] [id number] [place] [address] 91538- 6000 Jul, Mesenteric adenitis I88.0 [facility] [address] [place] [id number] [place] [address] 15398- 3440 June, [facility] [address] [place] [address] [id number] [place] [address] 62134 -0481 June, Lower abdominal pain R10.30 [facility] [address] [place] [id number] [place] [address] 27965- 5161 June, [facility] [address] [place] [id number] [place] [address] 79969- 4748 June, ADHD (attention deficit hyperactivity disorder), combined type F90.2 and Major depressive disorder, single episode, mild F32.0 [facility] [address] [place] [id number] [place] [address] 36990- 1706 May, [facility] [address] [place] [id number] [place] [address] 22817- 4762 May, ADHD (attention deficit hyperactivity disorder), combined type F90.2 and Major depressive disorder, single episode, mild F32.0 [facility] [address] [place] [id number] [place] [address] 65125 -9457 Apr, Abdominal pain R10.9 and Gastroenteritis and colitis, viral A08.4 [place] [address] 26833- 2505 Apr, [facility] [address] 87115 -0486 Mar, Acute urticaria L50.8 [place] [address] 95740- 1828 Mar, [place] [address] 42735- 8273 Feb, [facility] [place] [address] 60697 -1541 Feb, Gastroenteritis K52.9 [place] [address] 41370- 0761 Feb, Irritant contact dermatitis due to cosmetics L24.3 [place] [address] 74484- 4644 Jan, [place] [address] 63459- 6978 Jan, [place] [address] 33949- 2681 Jan, ADHD (attention deficit hyperactivity disorder), combined type F90.2 and Major depressive disorder, single episode, mild F32.0 [facility] [place] [address] 32756 -8753 Dec, Flexural eczema L20.82 [place] [address] 18492- 4802 Dec, Encounter for test Z32.00 [place] [address] [place] [id number] [place] [address] 46938- 9535 Dec, [facility] [address] [place] [id number] [place] [address] 16114- 4774 Dec, [facility] [address] [place] [id number] [place] [address] 12456- 1558 Dec, [facility] [address] 75942 -8491 Nov, Sore throat J02.9 and Pharyngitis, unspecified etiology J02.9 [facility] [address] [place] [id number] [place] [address] 96899- 1889 Nov, [facility] [address] 64700- 0049 Nov, [facility] [address] 99001- 5026 Nov, Generalized abdominal pain R10.84 and Slow transit constipation K59.01 [facility] [address] [place] [id number] [place] [address] [id number] Nov, 2015 Pharyngitis, unspecified etiology J02.9 and Rhinitis, unspecified type J31.0 [facility] [address] [place] [id number] [place] [address] 70793- 2640 29 Oct, 2015 Depressive disorder, not elsewhere classified F32.9 and ADHD (attention deficit hyperactivity disorder), combined type F90.2 [facility] [address] [id number] [place] [address] 44211- 1200 29 Oct, 2015 [facility] [address] [place] [id number] [place] [address] 26767- 6408 Oct, [facility] [address] [place] [id number] [place] [address] 99564 -6494 20 Oct, 2016 Strep throat J02.0 [facility] [address] [place] [id number] [place] [address] 24731- 9123 16 Oct2015 [place] [address] [address]- 8386 Oct, Well woman exam with routine gynecological exam Z01.419 and Screening for STD sexually transmitted disease Z11.3 [facility] [address] [address]- 3527 Sep, ADHD (attention deficit hyperactivity disorder), combined type F90.2 ; Anxiety state F41.1 and Depressive disorder, not elsewhere classified F32.9 [facility] [id number], [place] [address]- 4325 Sep, ADHD (attention deficit hyperactivity disorder), combined type F90.2 and Depressive disorder, not elsewhere classified F32.9 [facility] [address] [address]- 6805 Aug, [facility] [address] [id number] [place] [address] 66568- 3065 Aug, ADHD (attention deficit hyperactivity disorder), combined type F90.2 and Depressive disorder, not elsewhere classified F32.9 [facility] [address] [address]- 3892 Aug, ADHD (attention deficit hyperactivity disorder), combined type F90.2 ; Anxiety state F41.1 and Depressive disorder, not elsewhere classified F32.9 [facility] [address] [address]- 9744 Aug, [facility] [address], [place] [address]- 5051 Aug, [facility] [address] [place] [id number] [address]- 7189 Jul, ADHD (attention deficit hyperactivity disorder), combined type F90.2 ; Depressive disorder, not elsewhere classified F32.9 and Anxiety state F41.1 [facility] [id number] [address]- 1783 Jul, [facility] [address] [place] [id number] [place] [address] 02750- 1810 Jul, ADHD (attention deficit hyperactivity disorder), combined type F90.2 ; Anxiety state F41.1 and Depressive disorder, not elsewhere classified F32.9 [facility] [address] [place] [id number] [place] [address] 54441- 6223 June, [facility] [id number] [place] [address] [id number] June, Constipation K59.00 [facility] [address] 15056- 9243 May, Constipation K59.00 [facility] [address] 66888 -0419 May, Irritable bowel syndrome with diarrhea K58.0 [facility] [id number] [place] [address] 90636- 6954 May, [facility] [address] [place] [id number] [place] [address] 45347- 8958 May, [facility] [address] [place] [id number] [place] [address] 68908- 5600 May, [facility] [address] [place] [id number] [place] [address] 81368- 8896 May, [facility] [address] [place] [id number] [place] [address] 57102- 9793 Jan, [facility] [address] [place] [id number] [place] [address] 39814- 3159 Jan, [facility] [address] [place] [id number] [place] [address] 11260- 1367 Jan, [facility] [address] [place] [id number] [place] [address] 11606- 8151 Jan, [facility] [address] [place] [id number] [place] [address] 68789- 5727 Jan, [facility] [address] [place] [address]- 5296 Jan, [facility] [place] [facility] [address] [id number] [place] [address]- 5645 Nov, [facility] [place] [facility] [address] [id number] [place] [address]- 0614 Nov, [facility] [place] [facility] [address] [id number] [place] [address]- 5686 Oct, [facility] [place] [facility] [address] [id number] [place] [address]- 1174 Oct, [facility] [place] [facility] [address] [id number] [place] [address]- 6504 Sep, [facility] [place] [facility] [address] [id number] [place] [address]- 1419 Sep, [facility] [place] [facility] [address] [id number] [place] [address]- 2837 Aug, [facility] [place] [facility] [address] [id number] [place] [address]- 9930 Aug, [facility] [place] [facility] [address] [id number] [place] [address]- 3280 Aug, [facility] [place] [facility] [address] [id number] [place] [address]- 8245 Aug, [facility] [place] [facility] [address] [id number] [place] [address]- 4352 Aug, [facility] [place] [facility] [address] [id number] [place] [address]- 3147 Aug, [facility] [place] [facility] [address] [id number] [place] [address]- 3090 Aug, [facility] [place] [facility] [address] [id number] [place] [address]- 1422 Aug, [facility] [place] [facility] [address] [id number] [place] [address]- 9923 Jul, [facility] [place] [facility] [address] [id number] [place] [address]- 1794 Jul, [facility] [place] [facility] [address] [id number] [place] [address]- 9945 Jul, [facility] [place] [facility] [address] [id number] [place] [address]- 1806 Jul, [facility] [place] [facility] [address] [id number] [place] [address]- 3514 Jul, [facility] [place] [facility] [address] [id number] [place] [address]- 9258 Jul, [facility] [place] [facility] [address] [id number] [place] [address]- 5795 Jul, [facility] [place] [facility] [address] [id number] [place] [address]- 9668 Jul, [facility] [place] [facility] [address] [id number] [place] [address]- 0567 Jul, [facility] [place] [facility] [address] [id number] [place] [address]- 1714 June, [facility] [place] [facility] [address] [id number] [place] [address]- 6324 June, [facility] [place] [facility] [address] [id number] [place] [address]- 9531 May, [facility] [place] [facility] [address] [id number] [place] [address]- 3334 May, [facility] [place] [facility] [address] [id number] [place] [address]- 7166 May, [facility] [place] [facility] [address] [id number] [place] [address]- 0689 May, [facility] [place] [facility] [address] [id number] [place] [address]- 0130 May, [facility] [place] [facility] [address] [id number] [place] [address]- 9504 May, [facility] [place] [facility] [address] [id number] [place] [address]- 0921 May, [facility] [place] [facility] [address] [id number] [place] [address]- 4746 May, [facility] [place] [facility] [address] [id number] [place] [address]- 5200 May, [facility] [place] [facility] [address] [id number] [place] [address]- 4267 May, [facility] [place] [facility] [address] [id number] [place] [address]- 0121 May, [facility] [place] [facility] [address] [id number] [place] [address]- 1672 May, [facility] [place] [facility] [address] [id number] [place] [address]- 7009 Apr, [facility] [place] [facility] [address] [id number] [place] [address]- 1558 Apr, [facility] [place] [facility] [address] [id number] [place] [address]- 3297 Apr, [facility] [place] [facility] [address] [id number] [place] [address]- 4339 Apr, [facility] [place] [facility] [address] [id number] [place] [address]- 3917 Mar, [facility] [place] [facility] [address] [id number] [place] [address]- 7758 Mar, [facility] [place] [facility] [address] [id number] [place] [address]- 8435 Mar, [facility] [place] [facility] [address] [id number] [place] [address]- 1295 Mar, [facility] [place] [facility] [address] [id number] [place] [address]- 6448 Mar, [facility] [place] [facility] [address] [id number] [place] [address]- 1292 27 Mar, 2013 [facility] [place] [facility] [address] [id number] [place] [address]- 1176 Mar, 2013 [facility] [place] [facility] [address] [id number] [place] [address] 2546 Mar, 2013 [facility] [place] [facility] [address] [id number] [place] [address]- 254 Mar, 2013 [facility] [place] [facility] [address] [id number] [place] [address]- 6224 Mar, [facility] [place] [facility] [address] [id number] [place] [address]- 7453 14 Mar, 2013 [facility] [place] [facility] [address] [facility] [id number] [place] [address]- 7334 14 Mar, 2013 [facility] [place] [facility] [address] [id number] [place] [address]- 6858 Mar, 2013 [facility] [place] [facility] [address] [id number] [place] [address]- 6465 Mar, [facility] [place] [facility] [address] [facility] [id number] [place] [address]- 4107 Mar, [facility] [place] [facility] [address] [facility] [id number] [place] [address]- 7927 Mar, [facility] [place] [facility] [address] [id number] [place] [address]- 2542 Mar, 2013 [facility] [place] [facility] [address] [id number] [place] [address]- 5269 Mar, [facility] [place] [facility] [address] [id number] [place] [address]- 8525 04 Mar, 2013 [facility] [place] [facility] [address] [facility] [id number] [place] [address]- 254 Mar, [facility] [place] [facility] [address] [id number] [place] [address]- 5448 30 Feb, 2013 [facility] [address] [id number] [place] [address]- 0692 Feb, [facility] [address] [id number] [place] [address]- 4429 Feb, [facility] [address] [id number] [place] [address]- 3475 Feb, [facility] [address] [id number] [place] [address] Feb, [facility] [address] [id number] [place] [address] Feb, [facility] [address] [id number] [place] [address] Feb, [facility] [address] [id number] [place] [address] Feb, [facility] [address] [id number] [place] [address] Feb, [facility] [address] [id number] [place] [address] Feb, [facility] [address] [id number] [place] [address] Feb, [facility] [address] [id number] [place] [address] Feb, [facility] [address] [id number] [place] [address] Feb, [facility] [place] [facility] [address] [id number] [place] [address] Feb, [facility] [place] [facility] [address] [id number] [place] [address] Feb, [facility] [address] [id number] [place] [address] 15 Feb, 2013 [facility] [place] [facility] [address] [id number] [place] [address] 15 Feb, 2013 [facility] [place] [facility] [address] [id number] [place] [address] Feb, [facility] [place] [facility] [address] [id number] [place] [address] Feb, [facility] [place] [facility] [address] [id number] [place] [address] Feb, [facility] [address] [id number] [place] [address] Feb, [facility] [place] [facility] [address] [id number] [place] [address] Feb, [facility] [address] [id number] [place] [address] Feb, [facility] [address] [id number] [place] [address] 24 Jan, 2013 [facility] [place] [facility] [address] [id number] [place] [address] 24 Jan, 2013 [facility] [place] [facility] [address] [id number] [place] [address] Jan, [facility] [place] [facility] [address] [id number] [place] [address] 18 Jan, 2013 [facility] [place] [facility] [address] [id number] [address] 18 Jan, 2013 [facility] [place] [facility] [address] [id number] [place] [address] 18 Jan, 2013 [facility] [place] [facility] [address] [id number] [place] [address] 18 Jan, 2013 [facility] [place] [facility] [address] [id number] [place] [address] 17 Jan, 2013 [facility] [place] [facility] [address] [id number] [address] Jan, [facility] [place] [facility] [address] [id number] [place] [address] Jan, [facility] [place] [facility] [address] [id number] [address] Jan, [facility] [place] [facility] [address] [id number] [place] [address] Jan, [facility] [place] [facility] [address] [id number], [place] [address] Jan, [facility] [place] [facility] [address] [id number] [place] [address] Dec, [facility] [place] [facility] [address] [id number] [address] Dec, [facility] [place] [facility] [address] [id number][place] [address] Dec, [facility] [place] [facility] [address] [id number] [address] Dec, [facility] [place] [facility] [address] [id number][place] [address] Dec, [facility] [place] [facility] [address] [id number][place] [address] Dec, [facility] [place] [facility] [address] [id number], [place] [address] Nov, [facility] [place] [facility] [address] [id number], [place] [address] Nov, [facility] [place] [facility] [address] [id number][place] [address] Nov, [facility] [place] [facility] [address] [id number][place] [address] Nov, [facility] [place] [facility] [address] [id number][place] [address] Nov, [facility] [place] [facility] [address] [id number] [address] Nov, [facility] [id number] [address] Oct, [facility] [id number], [place] [address] Oct, [facility] [id number], [place] [address] Oct, [facility] [id number], [place] [address] Oct, [facility] [id number] [address] Oct, [facility] [id number], [place] [address] Oct, [facility] [id number], [place] [address] Oct, IMMUNIZATIONS No Known Immunizations SOCIAL HISTORY Never Assessed REASON FOR VISIT f/u--Anshu Torres MA PLAN OF CARE Activity Details Follow Up 2 Months Reason: f/u VITAL SIGNS Height 59 in 2017-01-20 Weight 142.9 lbs 2017-01-20 Heart Rate 108 bpm 2017-01-20 Respiratory Rate 20 2017-01-20 BMI 28.86 kg/m2 2017-01-20 Blood pressure systolic 118 mmHg 2017-01-20 Blood pressure diastolic 78 mmHg 2017-01-20 MEDICATIONS Medication Instructions Dosage Frequency Start Date End Date Duration Status HydrOXYzine HCl 25 MG Orally three times a day as needed for anxiety 1 tablet as needed Jan, Active Ritalin LA 20 mg Orally Once a day 1 capsule in the morning 24h Jan, Jan, 28 days Active Ondansetron 4 MG Orally every 8 hrs prn 1 tablet on the tongue and allow to dissolve Dec, 14 days Active Promethazine HCl 25 MG Orally every 4 hrs 1 tablet as needed 4h Active Protonix 40 MG Orally Once a day 1 tablet 24h Active Venlafaxine HCl ER 150 MG Orally Once a day 1 capsule with food 24h May Active Dicyclomine HCl 20 mg Orally 3 times a day 1 tablet 8h Dec,Jan 30 day(s) Active RESULTS No Results PROCEDURES No [...] Hospitalization History Childbirth 2013 Hospitalization History IBS 2016 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
--- OUTSIDE RECORDS SUMMARY | 2017-07-25 16:47 | XMS REPORT ---
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 Name Role Phone JENNIFERHARIKA Unavailable PROBLEMS Type Condition ICD9-CM Code RHX93-SH Code Onset Dates Condition Status SNOMED Code Problem Anxiety state F41.1 Active 113028972 Problem Depressive disorder, not elsewhere classified F32.9 Active 79953801 Problem ADHD (attention deficit hyperactivity disorder), combined type F90.2 Active 37553234 Problem Irritable bowel syndrome with diarrhea K58.0 Active 751119148 Problem Plantar wart of right foot B07.0 Active [id number] Problem Slow transit constipation K59.01 Active 55063722 Problem Rhinitis, unspecified type J31.0 Active 70133562 Problem Anxiety disorder, unspecified type F41.9 Active 241794101 Problem Major depressive disorder, single episode, mild F32.0 Active 06336826 ALLERGIES No Known Allergies ENCOUNTERS Encounter Location Date Diagnosis [place] [id number] [place] [address] 11320- 6651 June, [place] [id number] [place] [address] 75409- 1073 June, ADHD (attention deficit hyperactivity disorder), combined type F90.2 [facility] [id number] [place] [address] 07844- 6520 May, [facility] [id number] [place] [address] 95150- 0408 May, ADHD (attention deficit hyperactivity disorder), combined type F90.2 ; Major depressive disorder, single episode, mild F32.0 and Anxiety disorder, unspecified type F41.9 [facility] [id number] [place] [address] 94452- 0751 May, Anxiety disorder, unspecified type F41.9 [facility] [address] [address] 23[address] Apr, [facility] [id number] [place] [address] 32648- 2516 Apr, Anxiety disorder, unspecified type F41.9 [facility] [id number] [place] [address] 71740- 5402 Apr, Anxiety disorder, unspecified type F41.9 ; Major depressive disorder, single episode, mild F32.0 and ADHD (attention deficit hyperactivity disorder), combined type F90.2 [place] [id number] [place] [address] 64894- 8853 Apr, [place] [id number] [place] [address] 62907- 4510 Apr, ADHD (attention deficit hyperactivity disorder), combined type F90.2 ; Anxiety state F41.1 ; Depressive disorder, not elsewhere classified F32.9 ; Major depressive disorder, single episode, mild F32.0 and Anxiety disorder, unspecified type F41.9 [place] [id number] [place] [address] 16457- 6432 Mar, ADHD (attention deficit hyperactivity disorder), combined type F90.2 [place] [id number] [place] [address] 43959- 5924 Mar, Nausea R11.0 [place] [id number] [place] [address] 35735- 9784 13 Mar, 2017 Screening for STD sexually transmitted disease Z11.3 ; Vaginal candidiasis B37.3 and Irritable bowel syndrome with diarrhea K58.0 [place] [id number] [place] [address] 60355- 7475 Mar, [facility] [id number] [place] [address] 80852- 5513 Feb, ADHD (attention deficit hyperactivity disorder), combined type F90.2 [facility] [address], [place] [address] 8549 Feb, Depressive disorder, not elsewhere classified F32.9 ; Anxiety state F41.1 and ADHD (attention deficit hyperactivity disorder), combined type F90.2 [facility] [address], [place] [address] 4647 Feb, Depressive disorder, not elsewhere classified F32.9 ; Anxiety state F41.1 and ADHD (attention deficit hyperactivity disorder), combined type F90.2 [facility] [id number] [place] [address] 68631- 7465 Feb, ADHD (attention deficit hyperactivity disorder), combined type F90.2 [facility] [address], [place] [address] Jan, Other viral agents as the cause of diseases classified elsewhere B97.89 and Acute upper respiratory infection, unspecified J06.9 [facility] [address], [place] [address] 2014 Jan, ADHD (attention deficit hyperactivity disorder), combined type F90.2 ; Major depressive disorder, single episode, mild F32.0 and Anxiety disorder, unspecified type F41.9 [place] [address], [place] [address]- 8812 Jan, [facility] [id number] [place] [address] 07111- 2301 Jan, ADHD (attention deficit hyperactivity disorder), combined type F90.2 ; Major depressive disorder, single episode, mild F32.0 and Anxiety disorder, unspecified type F41.9 [facility] [address] [place] [address] 38005- 0440 Dec, Irritable bowel syndrome with diarrhea K58.0 and Lower abdominal pain R10.30 [facility] [address], [place] [address]- 0750 09 Dec, 2016 Hospital discharge follow-up Z09 ; Mesenteric adenitis I88.0 ; IBD (inflammatory bowel disease) K52.9 and Nausea R11.0 [place] [id number] [place] [address] 48842- 3294 Nov, ADHD (attention deficit hyperactivity disorder), combined type F90.2 ; Major depressive disorder, single episode, mild F32.0 and Anxiety disorder, unspecified type F41.9 [place] [address] 01598- 2677 Nov, Anxiety state F41.1 ; ADHD (attention deficit hyperactivity disorder), combined type F90.2 ; Major depressive disorder, single episode, mild F32.0 and Anxiety disorder, unspecified type F41.9 [place] [id number] [place] [address] 81573- 4460 Oct, Anxiety state F41.1 ; ADHD (attention deficit hyperactivity disorder), combined type F90.2 ; Major depressive disorder, single episode, mild F32.0 and Anxiety disorder, unspecified type F41.9 [place] [id number] [place] [address] 35137- 3673 Oct, ADHD (attention deficit hyperactivity disorder), combined type F90.2 ; Major depressive disorder, single episode, mild F32.0 and Anxiety disorder, unspecified type F41.9 [place] [id number] [place] [address] 20939- 6143 Oct, Major depressive disorder, single episode, mild F32.0 ; Anxiety state F41.1 ; ADHD (attention deficit hyperactivity disorder), combined type F90.2 and Depressive disorder, not elsewhere classified F32.9 [facility] [id number] [place] [address] 67836 -5391 16 Oct, 2016 [facility] [id number] [place] [address] 49111 -4586 Oct, Cellulitis L03.90 and Plantar wart of right foot B07.0 [place] [address] 51801- 0941 Aug, ADHD (attention deficit hyperactivity disorder), combined type F90.2 ; Major depressive disorder, single episode, mild F32.0 and Anxiety disorder, unspecified type F41.9 [place] [id number] [place] [address] 98825- 5601 Aug, [place] [id number] [place] [address] 91412- 2204 Jul, ADHD (attention deficit hyperactivity disorder), combined type F90.2 [place] [id number] [place] [address] 26939- 0487 Jul, Mesenteric adenitis I88.0 [place] [address] 36381- 9609 June, [facility] [id number] [place] [address] 80934 -4420 June, Lower abdominal pain R10.30 [place] [id number] [place] [address] 45818- 2704 June, [place] [id number] [place] [address] 45531- 0854 June, ADHD (attention deficit hyperactivity disorder), combined type F90.2 and Major depressive disorder, single episode, mild F32.0 [place] [id number] [place] [address] 80604- 2682 May, [place] [id number] [place] [address] 77294- 6707 May, ADHD (attention deficit hyperactivity disorder), combined type F90.2 and Major depressive disorder, single episode, mild F32.0 [facility] [id number] [place] [address] 63157 -9563 Apr, Abdominal pain R10.9 and Gastroenteritis and colitis, viral A08.4 [place] [id number] [place] [address] 49509- 6134 Apr, [facility] [id number] [place] [address] 39799 -2695 Mar, Acute urticaria L50.8 [facility] [id number] [place] [address] 45866- 1268 Mar, [facility] [address] 21659- 3247 Feb, [facility] [address] 69953 -9913 Feb, Gastroenteritis K52.9 [facility] [address] 79818- 9273 Feb, Irritant contact dermatitis due to cosmetics L24.3 [place] [address] 88169- 7200 Jan, [facility] [address] 96946- 6793 Jan, [facility] [address] 53986- 4332 Jan, ADHD (attention deficit hyperactivity disorder), combined type F90.2 and Major depressive disorder, single episode, mild F32.0 [facility] [id number] [place] [address] 67265 -1410 Dec, Flexural eczema L20.82 [facility] [id number] [place] [address] 68127- 9624 Dec, Encounter for test Z32.00 [facility] [id number] [place] [address] 32855- 6720 Dec, [facility] [address] 30326- 5730 Dec, [facility] [id number] [place] [address] 80679- 2070 Dec, [facility] [address] [place] [address] Nov, Sore throat J02.9 and Pharyngitis, unspecified etiology J02.9 [facility] [address] 40777- 4308 Nov, [facility] [address] 32546- 4977 Nov, [facility] [address] 35692- 0571 Nov, Generalized abdominal pain R10.84 and Slow transit constipation K59.01 [facility] [address] [id number] Nov, Pharyngitis, unspecified etiology J02.9 and Rhinitis, unspecified type J31.0 [facility] [address] 96504- 2396 Oct, Depressive disorder, not elsewhere classified F32.9 and ADHD (attention deficit hyperactivity disorder), combined type F90.2 [facility] [address] 62358- 8922 Oct, [facility] [address] 52944- 7577 Oct, [facility] [id number] [place] [address] 30903 -4366 Oct, Strep throat J02.0 [facility] [address] 47426- 1642 16 Oct, 2015 [facility] [address] 73467- 0429 Oct, 2016 Well woman exam with routine gynecological exam Z01.419 and Screening for STD sexually transmitted disease Z11.3 [facility] [id number] [place] [address] 13271- 1266 Sep, ADHD (attention deficit hyperactivity disorder), combined type F90.2 ; Anxiety state F41.1 and Depressive disorder, not elsewhere classified F32.9 [facility] [address] [facility] [id number], [place] [address]- 4540 Sep, ADHD (attention deficit hyperactivity disorder), combined type F90.2 and Depressive disorder, not elsewhere classified F32.9 [facility] [address] [facility] [id number] [address]- 9598 Aug, [facility] [id number] [place] [address] 94077- 0052 Aug, ADHD (attention deficit hyperactivity disorder), combined type F90.2 and Depressive disorder, not elsewhere classified F32.9 [facility] [id number], [place] [address]- 3257 Aug, ADHD (attention deficit hyperactivity disorder), combined type F90.2 ; Anxiety state F41.1 and Depressive disorder, not elsewhere classified F32.9 [facility] [id number], [place] [address]- 2395 Aug, [facility] [id number], [place] [address]- 9047 Aug, [facility] [id number] [place] [address] 81699- 5999 Jul, ADHD (attention deficit hyperactivity disorder), combined type F90.2 ; Depressive disorder, not elsewhere classified F32.9 and Anxiety state F41.1 [facility] [id number], [place] [address]- 9727 Jul, [facility] [id number], [place] [address]- 1373 Jul, ADHD (attention deficit hyperactivity disorder), combined type F90.2 ; Anxiety state F41.1 and Depressive disorder, not elsewhere classified F32.9 [facility] [id number], [place] [address]- 7564 June, [facility] [id number] [address] June, Constipation K59.00 [facility] [address] [facility] [id number] [place] [address]- 4845 May, Constipation K59.00 [facility] [address] [facility] [id number] [place] [address] May, Irritable bowel syndrome with diarrhea K58.0 [facility] [id number] [place] [address], [place] [address]- 7031 15 May, 2015 [facility] [address] [facility] [id number] [place] [address], [place] [address]- 2659 15 May, 2015 [facility] [id number] [place] [address], [place] [address]- 3136 14 May, 2014 [facility] [id number] [place] [address], [place] [address]- 1011 May, [facility] [id number] [place] [address] 12712- 7842 Jan, [facility] [id number] [place] [address], [place] [address]- 5148 Jan, [facility] [id number] [place] [address] 20643- 6552 Jan, [facility] [address], [place] [address]- 9083 Jan, [facility] [address] [place] [address] 09193- 6902 Jan, [facility] [id number], [place] [address]- 1597 Jan, [facility] [id number] [place] [address] 489140- 4937 Nov, [facility] [id number], [place] [address]- 1421 Nov, [facility] [id number] [place] [address] 34600- 1028 Oct, [facility] [place] [facility] [address] [id number] [place] [address]- 4105 Oct, [facility] [place] [facility] [address] [id number] [place] [address]- 2366 Sep, [facility] [place] [facility] [address] [id number] [place] [address]- 1680 Sep, [facility] [place] [facility] [address] [id number] [place] [address]- 1100 Aug, [facility] [place] [facility] [address] [id number] [place] [address]- 9955 Aug, [facility] [place] [facility] [address] [id number] [place] [address]- 3148 Aug, [facility] [place] [facility] [address] [id number] [place] [address]- 4340 Aug, [facility] [place] [facility] [address] [id number] [place] [address]- 1406 Aug, [facility] [place] [facility] [address] [id number] [place] [address]- 9785 Aug, [facility] [place] [facility] [address] [id number] [place] [address]- 6185 Aug, [facility] [place] [facility] [address] [id number] [place] [address]- 7130 Aug, [facility] [place] [facility] [address] [id number] [place] [address]- 8282 Jul, [facility] [place] [facility] [address] [id number] [place] [address]- 5044 Jul, [facility] [place] [facility] [address] [id number] [place] [address]- 3481 Jul, [facility] [place] [facility] [address] [id number] [place] [address]- 8394 Jul, [facility] [place] [facility] [address] [id number] [place] [address]- 0967 Jul, [facility] [place] [facility] [address] [id number] [place] [address]- 1468 Jul, [facility] [place] [facility] [address] [id number] [place] [address]- 6777 Jul, [facility] [place] [facility] [address] [id number] [place] [address]- 8600 Jul, [facility] [place] [facility] [address] [id number] [place] [address]- 0113 Jul, [facility] [place] [facility] [address] [id number] [place] [address]- 7216 June, [facility] [place] [facility] [address] [id number] [place] [address]- 4192 June, [facility] [place] [facility] [address] [id number] [place] [address]- 9534 May, [facility] [place] [facility] [address] [id number] [place] [address]- 5756 May, [facility] [place] [facility] [address] [id number] [place] [address]- 7755 May, [facility] [place] [facility] [address] [id number] [place] [address]- 9155 May, [facility] [place] [facility] [address] [id number] [place] [address]- 8447 May, [facility] [place] [facility] [address] [id number] [place] [address]- 7973 May, [facility] [place] [facility] [address] [id number] [place] [address]- 5286 May, [facility] [place] [facility] [address] [id number] [place] [address]- 6485 May, [facility] [place] [facility] [address] [id number] [place] [address]- 4224 May, [facility] [place] [facility] [address] [id number] [place] [address]- 8069 May, [facility] [place] [facility] [address] [id number] [place] [address]- 9365 May, [facility] [place] [facility] [address] [id number] [place] [address]- 2338 May, [facility] [place] [facility] [address] [id number] [place] [address]- 0439 Apr, [facility] [place] [facility] [address] [id number] [place] [address]- 2066 Apr, [facility] [place] [facility] [address] [id number] [place] [address]- 1449 Apr, [facility] [place] [facility] [address] [id number] [place] [address]- 7650 Apr, [facility] [place] [facility] [address] [id number] [place] [address]- 0728 Mar, [facility] [place] [facility] [address] [id number] [place] [address]- 1760 Mar, [facility] [place] [facility] [address] [id number] [place] [address]- 9864 Mar, [facility] [place] [facility] [address] [id number] [place] [address]- 5931 Mar, [facility] [place] [facility] [address] [id number] [place] [address]- 5717 Mar, [facility] [place] [facility] [address] [id number] [place] [address]- 9204 Mar, [facility] [place] [facility] [address] [id number] [place] [address]- 2679 Mar, [facility] [place] [facility] [address] [id number] [place] [address]- 6201 Mar, [facility] [place] [facility] [address] [id number] [place] [address]- 1772 Mar, [facility] [place] [facility] [address] [id number] [place] [address]- 8716 Mar, [facility] [place] [facility] [address] [id number] [place] [address]- 2546 14 Mar, 2013 [facility] [place] [facility] [address] [id number] [place] [address]- 7556 Mar, [facility] [place] [facility] [address] [id number] [place] [address]- 2544 Mar, [facility] [place] [facility] [address] [id number] [place] [address]- 5806 Mar, [facility] [place] [facility] [address] [facility] [id number] [place] [address]- 8234 Mar, [facility] [place] [facility] [address] [id number] [place] [address]- 3777 Mar, [facility] [place] [facility] [address] [facility] [id number] [place] [address]- 7070 Mar, [facility] [place] [facility] [address] [facility] [id number] [place] [address]- 2810 Mar, [facility] [place] [facility] [address] [facility] [id number] [place] [address]- 2971 Mar, [facility] [place] [facility] [address] [id number], [place] [address]- 7923 Mar, [facility] [place] [facility] [address] [id number] [place] [address]- 9852 Feb, [facility] [place] [facility] [address] [id number] [place] [address]- 2836 Feb, [facility] [place] [facility] [address] [facility] [id number], [place] [address]- 7169 Feb, [facility] [place] [facility] [address] [id number], [place] [address] Feb, [facility] [address] [id number] [place] [address] Feb, [facility] [place] [facility] [address] [id number] [place] [address] Feb, [facility] [place] [facility] [address] [id number] [place] [address] Feb, [facility] [place] [facility] [address] [id number] [place] [address] Feb, [facility] [place] [facility] [address] [id number] [place] [address] Feb, [facility] [place] [facility] [address] [id number] [place] [address] Feb, [facility] [place] [facility] [address] [id number] [place] [address] Feb, [facility] [place] [facility] [address] [id number] [place] [address] Feb, [facility] [place] [facility] [address] [id number] [place] [address] Feb, [facility] [place] [facility] [address] [id number] [place] [address] Feb, [facility] [place] [facility] [address] [id number], [place] [address] Feb, [facility] [place] [facility] [address] [id number], [place] [address] Feb, [facility] [place] [facility] [address] [id number], [place] [address] Feb, [facility] [place] [facility] [address] [id number], [place] [address] Feb, [facility] [place] [facility] [address] [id number], [place] [address] Feb, [facility] [place] [facility] [address] [id number] [place] [address]- [address] 07 Feb, 2013 [facility] [place] [facility] [address] [id number] [place] [address]- [address] Feb, [facility] [place] [facility] [address] [id number] [place] [address] Feb, [facility] [place] [facility] [address] [id number] [place] [address] Feb, [facility] [place] [facility] [address] [id number] [place] [address] Jan, [facility] [place] [facility] [address] [id number] [place] [address] Jan, [facility] [place] [facility] [address] [id number] [place] [address] Jan, [facility] [place] [facility] [address] [id number] [place] [address]- [address] Jan, [facility] [place] [facility] [address] [id number] [place] [address]- [address] 18 Jan, 2013 [facility] [place] [facility] [address] [id number] [place] [address] Jan, [facility] [place] [facility] [address] [id number] [place] [address] 18 Jan, 2013 [facility] [place] [facility] [address] [id number] [place] [address] 17 Jan, 2013 [facility] [place] [facility] [address] [id number] [place] [address]- [address] 17 Jan, 2013 [facility] [place] [facility] [address] [id number] [place] [address] 2013 [facility] [place] [facility] [address] [id number] [place] [address] 2013 [facility] [place] [facility] [address] [id number] [place] [address] Jan, [facility] [place] [facility] [address] [id number] [place] [address] Jan, [facility] [place] [facility] [address] [id number] [place] [address] Dec, [facility] [place] [facility] [address] [id number] [place] [address] Dec, [facility] [place] [facility] [address] [id number] [place] [address] Dec, [facility] [place] [facility] [address] [id number] [place] [address] Dec, [facility] [place] [facility] [address] [id number] [place] [address] Dec, [facility] [place] [facility] [address] [id number] [place] [address] Dec, [facility] [place] [facility] [address] [id number], [place] [address] Nov, [facility] [place] [facility] [address] [id number] [place] [address] Nov, [facility] [place] [facility] [address] [id number], [place] [address] Nov, [facility] [place] [facility] [address] [id number], [place] [address] Nov, [facility] [place] [facility] [address] [id number], [place] [address] Nov, [facility] [place] [facility] [address] [id number], [place] [address] Nov, [facility] [place] [facility] [address] [id number], [place] [address] 28 Oct, 2012 [facility] [place] [facility] [address] [id number], [place] [address] 27 Oct, 2012 [facility] [place] [facility] [address] [facility] [id number] [place] [address] Oct, [facility] [address] [facility] [id number], [place] [address] Oct, [facility] [address] [facility] [id number], [place] [address] Oct, [facility] [address] [facility] [id number], [place] [address] Oct, [facility] [address] [facility] [id number], [place] [address] Oct, IMMUNIZATIONS No Known Immunizations SOCIAL HISTORY Never Assessed REASON FOR VISIT f/u, needs stimulant refill if continued. , contract PLAN OF CARE Activity Details Follow Up 4 Months Reason: f/u VITAL SIGNS Height 59 in 2016-12-15 Weight 141.3 lbs 2016-12-15 Heart Rate 104 bpm 2016-12-15 Respiratory Rate 18 2016-12-15 BMI 28.54 kg/m2 2016-12-15 Blood pressure systolic 114 mmHg 2016-12-15 Blood pressure diastolic 62 mmHg 2016-12-15 MEDICATIONS Medication Instructions Dosage Frequency Start Date End Date Duration Status Ritalin LA 20 mg Orally Once a day 1 capsule in the morning 24h Nov, 28 days Active Venlafaxine HCl ER 150 MG Orally Once a day 1 capsule with food 24h May Active HydrOXYzine HCl 25 MG Orally three times a day as needed for anxiety 1 tablet as needed Jan, Active RESULTS No Results PROCEDURES No [...]
--- OUTSIDE RECORDS SUMMARY | 2017-07-25 16:48 | XMS REPORT ---
Author Author MIGUEL ÁNGEL Aquino Organization [facility] Address [address] [place] [address] Care Team Providers Care Director Translation Name Role Phone lastlastSACHIAugustin MIGUEL ÁNGEL Unavailable PROBLEMS Type Condition ICD9-CM Code BYL91-TO Code Onset Dates Condition Status SNOMED Code Problem Anxiety state F41.1 Active 957107093 Problem Depressive disorder, not elsewhere classified F32.9 Active 84649958 Problem ADHD (attention deficit hyperactivity disorder), combined type F90.2 Active 68528127 Problem Irritable bowel syndrome with diarrhea K58.0 Active 110300237 Problem Plantar wart of right foot B07.0 Active [id number] Problem Slow transit constipation K59.01 Active 51223838 Problem Rhinitis, unspecified type J31.0 Active 15031849 Problem Anxiety disorder, unspecified type F41.9 Active 473417033 Problem Major depressive disorder, single episode, mild F32.0 Active 34332526 ALLERGIES No Information ENCOUNTERS Encounter Location Date Diagnosis [place] [id number] [place] [address] 78033- 1181 June, [facility] [id number] [place] [address] 16209- 8404 June, [facility] [id number] [place] [address] 80241- 2530 May, [facility] [id number] [place] [address] 73352- 7451 May, ADHD (attention deficit hyperactivity disorder), combined type F90.2 ; Major depressive disorder, single episode, mild F32.0 and Anxiety disorder, unspecified type F41.9 [facility] [id number] [place] [address] 55799- 5442 May, Anxiety disorder, unspecified type F41.9 [facility] [address] [address] 0148 Apr, [facility] [id number] [place] [address] 64297- 9006 Apr, Anxiety disorder, unspecified type F41.9 [facility] [id number] [place] [address] 99722- 3956 Apr, Anxiety disorder, unspecified type F41.9 ; Major depressive disorder, single episode, mild F32.0 and ADHD (attention deficit hyperactivity disorder), combined type F90.2 [facility] [id number] [place] [address] 59079- 4752 Apr, [facility] [id number] [place] [address] 97178- 3041 Apr, ADHD (attention deficit hyperactivity disorder), combined type F90.2 ; Anxiety state F41.1 ; Depressive disorder, not elsewhere classified F32.9 ; Major depressive disorder, single episode, mild F32.0 and Anxiety disorder, unspecified type F41.9 [place] [id number] [place] [address] 03533- 7912 Mar, ADHD (attention deficit hyperactivity disorder), combined type F90.2 [facility] [id number] [place] [address] 54012- 0430 Mar, Nausea R11.0 [facility] [id number] [place] [address] 38032- 1958 13 Mar, 2017 Screening for STD sexually transmitted disease Z11.3 ; Vaginal candidiasis B37.3 and Irritable bowel syndrome with diarrhea K58.0 [facility] [id number] [place] [address] 79017- 1883 04 Mar, 2017 [facility] [id number] [place] [address] 94007- 8774 Feb, ADHD (attention deficit hyperactivity disorder), combined type F90.2 [facility] [address] [address] 6717 Feb, Depressive disorder, not elsewhere classified F32.9 ; Anxiety state F41.1 and ADHD (attention deficit hyperactivity disorder), combined type F90.2 [facility] [address] [address] 9174 Feb, Depressive disorder, not elsewhere classified F32.9 ; Anxiety state F41.1 and ADHD (attention deficit hyperactivity disorder), combined type F90.2 [facility] [id number] [place] [address] 89544- 4069 Feb, ADHD (attention deficit hyperactivity disorder), combined type F90.2 [facility] [id number] [place] [address] 09788 -6443 Jan, Other viral agents as the cause of diseases classified elsewhere B97.89 and Acute upper respiratory infection, unspecified J06.9 [place] [id number] [place] [address] 20354- 5085 Jan, ADHD (attention deficit hyperactivity disorder), combined type F90.2 ; Major depressive disorder, single episode, mild F32.0 and Anxiety disorder, unspecified type F41.9 [place] [id number] [place] [address] 85263- 0430 Jan, [place] [id number] [place] [address] 49819- 1420 Jan, ADHD (attention deficit hyperactivity disorder), combined type F90.2 ; Major depressive disorder, single episode, mild F32.0 and Anxiety disorder, unspecified type F41.9 [place] [id number] [place] [address] 98618- 4020 Dec, Irritable bowel syndrome with diarrhea K58.0 and Lower abdominal pain R10.30 [place] [id number] [place] [address] 09666- 8110 09 Dec, 2016 Hospital discharge follow-up Z09 ; Mesenteric adenitis I88.0 ; IBD (inflammatory bowel disease) K52.9 and Nausea R11.0 [place] [id number] [place] [address] 54170- 2370 Nov, ADHD (attention deficit hyperactivity disorder), combined type F90.2 ; Major depressive disorder, single episode, mild F32.0 and Anxiety disorder, unspecified type F41.9 [place] [id number] [place] [address] 03488- 7799 Nov, Anxiety state F41.1 ; ADHD (attention deficit hyperactivity disorder), combined type F90.2 ; Major depressive disorder, single episode, mild F32.0 and Anxiety disorder, unspecified type F41.9 [place] [id number] [place] [address] 30424- 7715 Oct, Anxiety state F41.1 ; ADHD (attention deficit hyperactivity disorder), combined type F90.2 ; Major depressive disorder, single episode, mild F32.0 and Anxiety disorder, unspecified type F41.9 [place] [id number] [place] [address] 52974- 9236 Oct, ADHD (attention deficit hyperactivity disorder), combined type F90.2 ; Major depressive disorder, single episode, mild F32.0 and Anxiety disorder, unspecified type F41.9 [place] [address] [place] [address] 88565- 2540 Oct, Major depressive disorder, single episode, mild F32.0 ; Anxiety state F41.1 ; ADHD (attention deficit hyperactivity disorder), combined type F90.2 and Depressive disorder, not elsewhere classified F32.[address] [facility] [id number] [place] [address] 12501 -3775 Oct, [facility] [id number] [place] [address] 86523 -4761 Oct, Cellulitis L03.90 and Plantar wart of right foot B07.0 [place] [id number] [place] [address] 26744- 7009 Aug, ADHD (attention deficit hyperactivity disorder), combined type F90.2 ; Major depressive disorder, single episode, mild F32.0 and Anxiety disorder, unspecified type F41.9 [facility] [id number] [place] [address] 12000- 2363 Aug, [place] [id number] [place] [address] 41897- 4933 Jul, ADHD (attention deficit hyperactivity disorder), combined type F90.2 [place] [id number] [place] [address] 69867- 4494 Jul, Mesenteric adenitis I88.0 [place] [address] 91977- 8713 June, [facility] [id number] [place] [address] 11212 -7501 June, Lower abdominal pain R10.30 [place] [id number] [place] [address] 52242- 8790 June, [place] [id number] [place] [address] 70283- 0544 June, ADHD (attention deficit hyperactivity disorder), combined type F90.2 and Major depressive disorder, single episode, mild F32.0 [place] [id number] [place] [address] 86562- 1903 May, [facility] [id number] [place] [address] 76891- 5698 May, ADHD (attention deficit hyperactivity disorder), combined type F90.2 and Major depressive disorder, single episode, mild F32.0 [facility] [id number] [place] [address] 36493 -2763 Apr, Abdominal pain R10.9 and Gastroenteritis and colitis, viral A08.4 [facility] [id number] [place] [address] 61364- 9582 Apr, [facility] [id number] [place] [address]68[address] Mar, Acute urticaria L50.8 [facility] [id number] [place] [address] 12683- 8149 Mar, [facility] [id number] [place] [address] 34132- 2991 Feb, [facility] [address] 95949 -2671 Feb, Gastroenteritis K52.9 [facility] [address] 10573- 1814 Feb, Irritant contact dermatitis due to cosmetics L24.3 [facility] [address] 74398- 8992 Jan, [place] [address] 26353- 8405 Jan, [facility] [id number] [place] [address] 46572- 1929 Jan, ADHD (attention deficit hyperactivity disorder), combined type F90.2 and Major depressive disorder, single episode, mild F32.0 [facility] [id number] [place] [address] 20992 -6182 Dec, Flexural eczema L20.82 [place] [id number] [place] [address] 81487- 2139 Dec, Encounter for test Z32.00 [facility] [id number] [place] [address] 32543- 8191 Dec, [facility] [id number] [place] [address] 39166- 2858 Dec, [facility] [id number] [place] [address] 75654- 6086 Dec, [facility] [id number] [place] [address] 81331 -0310 Nov, Sore throat J02.9 and Pharyngitis, unspecified etiology J02.9 [facility] [id number] [place] [address] 85008- 3484 Nov, [facility] [id number] [place] [address] 08411- 7379 Nov, [facility] [id number] [place] [address] 33554- 3581 Nov, Generalized abdominal pain R10.84 and Slow transit constipation K59.01 [facility] [id number] [place] [address] [id number] Nov, Pharyngitis, unspecified etiology J02.9 and Rhinitis, unspecified type J31.0 [facility] [id number] [place] [address] 22998- 1316 Oct, Depressive disorder, not elsewhere classified F32.9 and ADHD (attention deficit hyperactivity disorder), combined type F90.2 [facility] [id number] [place] [address] 09116- 5968 Oct, [facility] [id number] [place] [address] 90807- 0961 Oct, [facility] [id number] [place] [address] 81623 -7282 Oct, Strep throat J02.0 [facility] [id number] [place] [address] 21962- 4367 16 Oct, 2015 [facility] [id number] [place] [address] 27489- 1053 Oct, Well woman exam with routine gynecological exam Z01.419 and Screening for STD sexually transmitted disease Z11.3 [facility] [address] [place] [address] 32083- 5361 Sep, ADHD (attention deficit hyperactivity disorder), combined type F90.2 ; Anxiety state F41.1 and Depressive disorder, not elsewhere classified F32.9 [facility] [address] [facility] [id number] [address]- 8237 Sep, ADHD (attention deficit hyperactivity disorder), combined type F90.2 and Depressive disorder, not elsewhere classified F32.9 [facility] [address] [facility] [address] [id number] [address]- 7738 Aug, [facility] [id number] [address]- 1174 Aug, ADHD (attention deficit hyperactivity disorder), combined type F90.2 and Depressive disorder, not elsewhere classified F32.9 [facility] [address] [facility] [address] [id number], [place] [address]- 7027 Aug, ADHD (attention deficit hyperactivity disorder), combined type F90.2 ; Anxiety state F41.1 and Depressive disorder, not elsewhere classified F32.9 [facility] [id number], [place] [address]- 7648 Aug, [facility] [id number], [place] [address]- 7246 Aug, [facility] [id number], [place] [address]- 3902 Jul, ADHD (attention deficit hyperactivity disorder), combined type F90.2 ; Depressive disorder, not elsewhere classified F32.9 and Anxiety state F41.1 [facility] [address], [place] [address]- 9569 Jul, [facility] [id number], [place] [address]- 0650 Jul, ADHD (attention deficit hyperactivity disorder), combined type F90.2 ; Anxiety state F41.1 and Depressive disorder, not elsewhere classified F32.9 [facility] [id number], [place] [address]- 6248 June, [facility] [id number] [id number] June, Constipation K59.00 [facility] [address] [facility] [address] [id number] [place] [address]- 0566 28 May, 2015 Constipation K59.00 [facility] [address] [facility] [address] [id number] [place] [address] -4354 20 May, 2015 Irritable bowel syndrome with diarrhea K58.0 [facility] [address] [facility] [address] [id number] [place] [address]- 5306 15 May, 2015 [facility] [address] [facility] [address] [id number] [place] [address]- 3694 15 May, 2015 [facility] [address] [facility] [id number] [place] [address], [place] [address]- 5657 14 May, 2014 [facility] [address] [facility] [address] [id number] [place] [address]- 6712 May, [facility] [address] [address]- 9023 Jan, [facility] [address] [facility] [address] [id number] [place] [address]- 2412 Jan, [facility] [address] [address]- 4068 Jan, [facility] [id number] [address]- 6544 Jan, [facility] [address] [address]- 6943 Jan, [facility] [address] [facility] [address] [id number], [place] [address]- 2327 Jan, [facility] [id number] [address]- 5341 Nov, [facility] [address] [facility] [address] [id number] [place] [address]- 4628 Nov, [facility] [address], [place] [address]- 4612 Oct, [facility] [place] [facility] [address] [id number] [place] [address]- 8491 Oct, [facility] [place] [facility] [address] [id number] [place] [address]- 8411 Sep, [facility] [place] [facility] [address] [id number] [place] [address]- 5348 Sep, [facility] [place] [facility] [address] [id number] [place] [address]- 7082 Aug, [facility] [place] [facility] [address] [id number] [place] [address]- 8841 Aug, [facility] [place] [facility] [address] [id number] [place] [address]- 1687 Aug, [facility] [place] [facility] [address] [id number] [place] [address]- 5629 Aug, [facility] [place] [facility] [address] [id number] [place] [address]- 7939 Aug, [facility] [place] [facility] [address] [id number] [place] [address]- 8265 Aug, [facility] [place] [facility] [address] [id number] [place] [address]- 9311 Aug, [facility] [place] [facility] [address] [id number] [place] [address]- 5540 Aug, [facility] [place] [facility] [address] [id number] [place] [address]- 6209 Jul, [facility] [place] [facility] [address] [id number] [place] [address]- 6889 Jul, [facility] [place] [facility] [address] [id number] [place] [address]- 1607 Jul, [facility] [place] [facility] [address] [id number] [place] [address]- 2948 Jul, [facility] [place] [facility] [address] [id number] [place] [address]- 5628 Jul, [facility] [place] [facility] [address] [id number] [place] [address]- 2733 Jul, [facility] [place] [facility] [address] [id number] [place] [address]- 1075 Jul, [facility] [place] [facility] [address] [id number] [place] [address]- 3907 Jul, [facility] [place] [facility] [address] [id number] [place] [address]- 8169 Jul, [facility] [place] [facility] [address] [id number] [place] [address]- 0756 June, [facility] [place] [facility] [address] [id number] [place] [address]- 1058 June, [facility] [place] [facility] [address] [id number] [place] [address]- 5594 May, [facility] [place] [facility] [address] [id number] [place] [address]- 0013 May, [facility] [place] [facility] [address] [id number] [place] [address]- 9894 May, [facility] [place] [facility] [address] [id number] [place] [address]- 5786 May, [facility] [place] [facility] [address] [id number] [place] [address]- 5535 May, [facility] [place] [facility] [address] [id number] [place] [address]- 5561 May, [facility] [place] [facility] [address] [id number] [place] [address]- 5748 May, [facility] [place] [facility] [address] [id number] [place] [address]- 8499 May, [facility] [place] [facility] [address] [id number] [place] [address]- 4258 May, [facility] [place] [facility] [address] [id number] [place] [address]- 3757 May, [facility] [place] [facility] [address] [id number] [place] [address]- 6489 May, [facility] [place] [facility] [address] [id number] [place] [address]- 2759 May, [facility] [place] [facility] [address] [id number] [place] [address]- 5023 Apr, [facility] [place] [facility] [address] [id number] [place] [address]- 7959 Apr, [facility] [place] [facility] [address] [id number] [place] [address]- 4469 Apr, [facility] [place] [facility] [address] [facility] [address] [id number] [place] [address]- 4934 Apr, [facility] [place] [facility] [address] [facility] [address] [id number] [place] [address]- 0641 Mar, [facility] [place] [facility] [address] [facility] [address] [id number] [place] [address]- 6264 Mar, [facility] [place] [facility] [address] [facility] [address] [id number] [place] [address]- 7514 Mar, [facility] [place] [facility] [address] [facility] [address] [id number] [place] [address]- 8706 Mar, [facility] [place] [facility] [address] [facility] [address] [id number] [place] [address]- 1947 Mar, [facility] [place] [facility] [address] [facility] [address] [id number] [place] [address]- 2623 Mar, [facility] [place] [facility] [address] [facility] 2001 [id number] [place] [address] Mar, [facility] [place] [facility] [address] [facility] 2001 [id number] [place] [address] Mar, [facility] [place] [facility] [address] 2001 [id number] [place] [address] Mar, [facility] [place] [facility] [address] [id number] [place] [address]- [address] Mar, [facility] [place] [facility] [address] [id number] [place] [address]- [address] Mar, [facility] [place] [facility] [address] [id number] [place] [address]- [address] Mar, [facility] [place] [facility] [address] [id number] [place] [address]- [address] Mar, [facility] [place] [facility] [address] [id number] [place] [address]- [address] Mar, [facility] [place] [facility] [address] [id number] [place] [address]- [address] Mar, [facility] [place] [facility] [address] [id number] [place] [address]- [address] Mar, [facility] [place] [facility] [address] [id number] [place] [address] 1931 Mar, [facility] [place] [facility] [address] [id number] [place] [address]- [address] Mar, [facility] [place] [facility] [address] [facility] 2001 [id number] [place] [address]- [address] Mar, [facility] [place] [facility] [address] [id number] [place] [address]- 254 Mar, [facility] [place] [facility] [address] [id number] [place] [address]- [address] Feb, [facility] [place] [facility] [address] [id number] [place] [address]- [address] Feb, [facility] [place] [facility] [address] [id number] [place] [address]- [address] Feb, [facility] [place] [facility] [address] [id number] [place] [address]- [address] Feb, [facility] [place] [facility] [address] [id number] [place] [address]- [address] Feb, [facility] [place] [facility] [address] [id number] [place] [address]- [address] Feb, [facility] [place] [facility] [address] [id number] [place] [address]- [address] Feb, [facility] [place] [facility] [address] [id number] [place] [address]- [address] Feb, [facility] [place] [facility] [address] [id number] [place] [address]- [address] Feb, [facility] [place] [facility] [address] [id number] [place] [address]- [address] Feb, [facility] [place] [facility] [address] [id number] [place] [address]- [address] Feb, [facility] [place] [facility] [address] [id number] [place] [address]- [address] Feb, [facility] [place] [facility] [address] [id number] [place] [address]- [address] Feb, [facility] [place] [facility] [address] [id number], [place] [address] Feb, [facility] [place] [facility] [address] [id number], [place] [address]- [address] Feb, [facility] [place] [facility] [address] [id number], [place] [address] Feb, [facility] [place] [facility] [address] [id number] [place] [address]- [address] Feb, [facility] [place] [facility] [address] [id number], [place] [address] Feb, [facility] [place] [facility] [address] [id number], [place] [address] Feb, [facility] [place] [facility] [address] [id number], [place] [address] 07 Feb, 2013 [facility] [address] [address] [id number] [place] [address] Feb, [facility] [address] [id number] [place] [address] Feb, [facility] [address] [facility] [id number] [place] [address] Feb, [facility] [address] [id number] [place] [address] Jan, [facility] [address] [id number] [place] [address] Jan, [facility] [address] [id number] [place] [address] Jan, [facility] [id number] [address] Jan, [facility] [address] [id number] [place] [address] Jan, [facility] [address] [facility] [id number] [place] [address] Jan, [facility] [address] [facility] [address] [id number] [place] [address] 18 Jan, 2013 [facility] [address] [facility] [id number] [place] [address] 17 Jan, 2013 [facility] [place] [facility] [address] [id number], [place] [address] 17 Jan, 2013 [facility] [place] [facility] [address] [id number] [place] [address] Jan, [facility] [place] [facility] [address] [facility] [id number] [place] [address] 2013 [facility] [place] [facility] [address] [facility] [id number] [place] [address] 04 Jan, 2013 [facility] [place] [facility] [address] [id number] [place] [address] Jan, [facility] [place] [facility] [address] [id number] [place] [address] Dec, [facility] [place] [facility] [address] [id number] [place] [address] Dec, [facility] [place] [facility] [address] [id number] [place] [address] Dec, [facility] [place] [facility] [address] [id number] [place] [address] Dec, [facility] [place] [facility] [address] [id number] [place] [address] Dec, [facility] [place] [facility] [address] [id number] [place] [address] Dec, [facility] [place] [facility] [address] [id number] [place] [address] Nov, [facility] [place] [facility] [address] [id number] [place] [address] Nov, [facility] [place] [facility] [address] [id number] [place] [address] Nov, [facility] [place] [facility] [address] [id number] [place] [address] Nov, [facility] [place] [facility] [address] [id number] [place] [address] Nov, [facility] [place] [facility] [address] [id number] [place] [address] Nov, [facility] [place] [facility] [address] [id number] [place] [address] 28 Oct, 2012 [facility] [place] [facility] [address] [id number] [place] [address] 27 Oct, 2012 [facility] [place] [facility] [address] [id number] [place] [address] Oct, [facility] [address] [facility] [address] [id number], [place] [address] Oct, [facility] [address] [facility] [address] [id number], [place] [address] Oct, [facility] [address] [facility] [address] [id number], [place] [address] Oct, [facility] [address] [facility] [address] [id number], [place] [address] Oct, IMMUNIZATIONS No Known Immunizations SOCIAL HISTORY Never Assessed REASON FOR VISIT intake PLAN OF CARE Activity Details Follow Up 1 Week Reason:Anxiety and depression VITAL SIGNS MEDICATIONS Unknown Medications RESULTS No Results PROCEDURES Procedure Date Ordered Result Body Site Psych diagnostic evaluation, new patient Nov 08, 2016 INSTRUCTIONS MEDICATIONS ADMINISTERED No Known Medications MEDICAL [...]
--- OUTSIDE RECORDS SUMMARY | 2017-07-25 16:49 | XMS REPORT ---
Author Author JENNIFER HARIKA [facility] Address [address] [place] [address] Care Team Providers Care Supervisor Tower Name Role Phone JENNIFERHARIKA Unavailable PROBLEMS Type Condition ICD9-CM Code FOI69-TB Code Onset Dates Condition Status SNOMED Code Problem Anxiety state F41.1 Active 785865254 Problem Depressive disorder, not elsewhere classified F32.9 Active 78244383 Problem ADHD (attention deficit hyperactivity disorder), combined type F90.2 Active 56510604 Problem Irritable bowel syndrome with diarrhea K58.0 Active 154796645 Problem Plantar wart of right foot B07.0 Active [id number] Problem Slow transit constipation K59.01 Active 90174300 Problem Rhinitis, unspecified type J31.0 Active 85235586 Problem Anxiety disorder, unspecified type F41.9 Active 421012710 Problem Major depressive disorder, single episode, mild F32.0 Active 53355946 ALLERGIES No Known Allergies ENCOUNTERS Encounter Location Date Diagnosis [place] [id number] [place] [address] 29445- 5919 May, [place] [address] [place] [address] 21106- 7851 Apr, [facility] [id number] [place] [address] 42555- 8401 Apr, Anxiety disorder, unspecified type F41.9 [facility] [id number] [place] [address] 27074- 3322 Apr, Anxiety disorder, unspecified type F41.9 ; Major depressive disorder, single episode, mild F32.0 and ADHD (attention deficit hyperactivity disorder), combined type F90.2 [facility] [id number] [place] [address] 55631- 2794 Apr, [facility] [address], [place] [address] 2706 Apr, ADHD (attention deficit hyperactivity disorder), combined type F90.2 ; Anxiety state F41.1 ; Depressive disorder, not elsewhere classified F32.9 ; Major depressive disorder, single episode, mild F32.0 and Anxiety disorder, unspecified type F41.9 [place] [id number] [place] [address] 44572- 0530 Mar, ADHD (attention deficit hyperactivity disorder), combined type F90.2 [facility] [id number] [place] [address] 01473- 5751 Mar, Nausea R11.0 [place] [id number] [place] [address] 16943- 2743 13 Mar, 2017 Screening for STD (sexually transmitted disease) Z11.3 ; Vaginal candidiasis B37.3 and Irritable bowel syndrome with diarrhea K58.0 [place] [id number] [address] 6212 Mar, [facility] [id number] [place] [address] 45977- 3949 Feb, ADHD (attention deficit hyperactivity disorder), combined type F90.2 [facility] [address], [place] [address]- 4529 Feb, Depressive disorder, not elsewhere classified F32.9 ; Anxiety state F41.1 and ADHD (attention deficit hyperactivity disorder), combined type F90.2 [facility] [address] [place] [address] 89758- 1274 Feb, Depressive disorder, not elsewhere classified F32.9 ; Anxiety state F41.1 and ADHD (attention deficit hyperactivity disorder), combined type F90.2 [facility] [address], [place] [address]- 7418 Feb, ADHD (attention deficit hyperactivity disorder), combined type F90.2 [facility] [address] [place] [address] 86057 -6676 Jan, Other viral agents as the cause of diseases classified elsewhere B97.89 and Acute upper respiratory infection, unspecified J06.9 [facility] [id number] [place] [address] 78444- 9593 Jan, ADHD (attention deficit hyperactivity disorder), combined type F90.2 ; Major depressive disorder, single episode, mild F32.0 and Anxiety disorder, unspecified type F41.9 [facility] [id number] [place] [address] 97209- 4072 Jan, [place] [address] 95911- 0932 Jan, ADHD (attention deficit hyperactivity disorder), combined type F90.2 ; Major depressive disorder, single episode, mild F32.0 and Anxiety disorder, unspecified type F41.9 [place] [id number] [place] [address] 46014- 0436 Dec, Irritable bowel syndrome with diarrhea K58.0 and Lower abdominal pain R10.30 [place] [address] 82101- 8914 Dec, Hospital discharge follow-up Z09 ; Mesenteric adenitis I88.0 ; IBD (inflammatory bowel disease) K52.9 and Nausea R11.0 [place] [id number] [place] [address] 09735- 6044 Nov, ADHD (attention deficit hyperactivity disorder), combined type F90.2 ; Major depressive disorder, single episode, mild F32.0 and Anxiety disorder, unspecified type F41.9 [place] [id number] [place] [address] 92336- 4870 Nov, Anxiety state F41.1 ; ADHD (attention deficit hyperactivity disorder), combined type F90.2 ; Major depressive disorder, single episode, mild F32.0 and Anxiety disorder, unspecified type F41.9 [place] [id number] [place] [address] 31761- 8624 Oct, Anxiety state F41.1 ; ADHD (attention deficit hyperactivity disorder), combined type F90.2 ; Major depressive disorder, single episode, mild F32.0 and Anxiety disorder, unspecified type F41.9 [facility] [address], [place] [address]- 9822 Oct, ADHD (attention deficit hyperactivity disorder), combined type F90.2 ; Major depressive disorder, single episode, mild F32.0 and Anxiety disorder, unspecified type F41.9 [place] [address] [place] [address] 74221- 3113 Oct, Major depressive disorder, single episode, mild F32.0 ; Anxiety state F41.1 ; ADHD (attention deficit hyperactivity disorder), combined type F90.2 and Depressive disorder, not elsewhere classified F32.9 [facility] [address] [place] [address] 60619 -6580 Oct, [facility] [address] [place] [address] 61332 -2140 Oct, Cellulitis L03.90 and Plantar wart of right foot B07.0 [place] [address] [place] [address] 96918- 2841 Aug, ADHD (attention deficit hyperactivity disorder), combined type F90.2 ; Major depressive disorder, single episode, mild F32.0 and Anxiety disorder, unspecified type F41.9 [place] [address] [place] [address] 21000- 2137 Aug, [place] [id number] [place] [address] 07174- 0022 Jul, ADHD (attention deficit hyperactivity disorder), combined type F90.2 [facility] [address] [place] [address] 36978- 4923 Jul, Mesenteric adenitis I88.0 [place] [id number] [place] [address] 33078- 6081 June, [facility] [id number] [place] [address] 48646 -2273 June, Lower abdominal pain R10.30 [facility] [id number] [place] [address] 21427- 9737 June, [facility] [id number] [place] [address] 72459- 5919 June, ADHD (attention deficit hyperactivity disorder), combined type F90.2 and Major depressive disorder, single episode, mild F32.0 [facility] [id number] [place] [address] 91069- 2439 May, [place] [id number] [place] [address] 16593- 5900 May, ADHD (attention deficit hyperactivity disorder), combined type F90.2 and Major depressive disorder, single episode, mild F32.0 [facility] [id number] [place] [address] 11588 -9455 Apr, Abdominal pain R10.9 and Gastroenteritis and colitis, viral A08.4 [place] [id number] [place] [address] 42598- 8441 Apr, [facility] [id number] [place] [address] 78102 -6129 Mar, Acute urticaria L50.8 [place] [id number] [place] [address] 24501- 7806 Mar, [facility] [id number] [place] [address] 45275- 3869 Feb, [facility] [id number] [place] [address] 75209 -7501 Feb, Gastroenteritis K52.9 [facility] [address] 04910- 5861 Feb, Irritant contact dermatitis due to cosmetics L24.3 [facility] [id number] [place] [address] 38735- 3884 Jan, [facility] [address] 95565- 6794 Jan, [facility] [id number] [place] [address] 10078- 1908 Jan, ADHD (attention deficit hyperactivity disorder), combined type F90.2 and Major depressive disorder, single episode, mild F32.0 [facility] [id number] [place] [address] 23141 -2032 Dec, Flexural eczema L20.82 [place] [address] 24341- 2178 Dec, Encounter for test Z32.00 [place] [address] 88620- 3559 Dec, [facility] [id number] [place] [address] 89149- 3013 Dec, [facility] [id number] [place] [address] 27581- 9912 Dec, [facility] [id number] [place] [address] 21194 -5825 Nov, Sore throat J02.9 and Pharyngitis, unspecified etiology J02.9 [place] [id number] [place] [address] 13444- 8451 Nov, [facility] [id number] [place] [address] 80881- 9020 Nov, [place] [address] 40771- 0204 Nov, Generalized abdominal pain R10.84 and Slow transit constipation K59.01 [facility] [id number] [place] [address] [id number] Nov, Pharyngitis, unspecified etiology J02.9 and Rhinitis, unspecified type J31.0 [facility] [address], [place] [address]- 9841 Oct, Depressive disorder, not elsewhere classified F32.9 and ADHD (attention deficit hyperactivity disorder), combined type F90.2 [facility] [address], [place] [address]- 0019 29 Oct, 2015 [facility] [id number] [place] [address] 21706- 2812 Oct, [facility] [address], [place] [address] -7392 Oct, Strep throat J02.0 [facility] [id number] [place] [address] 19880- 1787 16 Oct, 2015 [facility] [id number] [place] [address] 42313- 2100 Oct, Well woman exam with routine gynecological exam Z01.419 and Screening for STD (sexually transmitted disease) Z11.3 [facility] [address] [place] [address] 72968- 8837 Sep, ADHD (attention deficit hyperactivity disorder), combined type F90.2 ; Anxiety state F41.1 and Depressive disorder, not elsewhere classified F32.9 [facility] [address], [place] [address]- 2757 Sep, ADHD (attention deficit hyperactivity disorder), combined type F90.2 and Depressive disorder, not elsewhere classified F32.9 [facility] [address], [place] [address]- 6884 Aug, [facility] [id number] [place] [address] 33912- 5433 Aug, ADHD (attention deficit hyperactivity disorder), combined type F90.2 and Depressive disorder, not elsewhere classified F32.9 [facility] [address] [place] [address] 06600- 6424 Aug, ADHD (attention deficit hyperactivity disorder), combined type F90.2 ; Anxiety state F41.1 and Depressive disorder, not elsewhere classified F32.9 [facility] [id number] [place] [address] 54733- 0863 Aug, [facility] [id number] [place] [address] 30306- 6716 Aug, [facility] [address] 87030- 1639 Jul, ADHD (attention deficit hyperactivity disorder), combined type F90.2 ; Depressive disorder, not elsewhere classified F32.9 and Anxiety state F41.1 [facility] [id number] [place] [address] 58776- 2860 Jul, [facility] [id number] [place] [address] 19785- 7791 Jul, ADHD (attention deficit hyperactivity disorder), combined type F90.2 ; Anxiety state F41.1 and Depressive disorder, not elsewhere classified F32.9 [facility] [id number] [place] [address] 82899- 7784 June, [facility] [id number] [place] [address] [id number] June, Constipation K59.00 [facility] [id number] [place] [address] 17302- 1422 May, Constipation K59.00 [facility] [id number] [place] [address] 77546 -6584 May, Irritable bowel syndrome with diarrhea K58.0 [facility] [id number] [place] [address] 70533- 5276 May, [facility] [id number] [place] [address] 42629- 6607 May, [facility] [id number] [place] [address] 86488- 5737 May, [facility] [place] [facility] [address] [id number] [place] [address]- 1013 May, [facility] [place] [facility] [address] [id number] [place] [address]- 8304 Jan, [facility] [place] [facility] [address] [id number] [place] [address]- 0082 Jan, [facility] [place] [facility] [address] [id number] [place] [address]- 6124 Jan, [facility] [place] [facility] [address] [id number] [place] [address]- 5017 Jan, [facility] [place] [facility] [address] [id number] [place] [address]- 4227 Jan, [facility] [place] [facility] [address] [id number] [place] [address]- 3798 Jan, [facility] [place] [facility] [address] [id number] [place] [address]- 9900 Nov, [facility] [place] [facility] [address] [id number] [place] [address]- 9680 Nov, [facility] [place] [facility] [address] [id number] [place] [address]- 4430 Oct, [facility] [place] [facility] [address] [id number] [place] [address]- 0575 Oct, [facility] [place] [facility] [address] [id number], [place] [address]- 5261 Sep, [facility] [place] [facility] [address] [id number] [place] [address]- 1311 Sep, [facility] [place] [facility] [address] [id number] [place] 3443 Aug, [facility] [place] [facility] [address] [id number] [place] 4494 Aug, [facility] [place] [facility] [address] [id number] [place] [address]- 2972 Aug, [facility] [place] [facility] [address] [id number] [place] [address]- 9346 Aug, [facility] [place] [facility] [address] [id number] [place] [address]- 2495 Aug, [facility] [place] [facility] [address] [id number] [place] [address]- 7614 Aug, [facility] [place] [facility] [address] [id number] [place] [address]- 9902 Aug, [facility] [place] [facility] [address] [id number] [place] [address]- 9278 Aug, [facility] [place] [facility] [address] [id number] [place] [address]- 8294 Jul, [facility] [place] [facility] [address] [id number] [place] [address]- 8732 Jul, [facility] [place] [facility] [address] [id number] [place] [address]- 5047 Jul, [facility] [place] [facility] [address] [id number] [place] [address]- 6959 Jul, [facility] [place] [facility] [address] [id number] [place] [address]- 3935 Jul, [facility] [place] [facility] [address] [id number] [place] [address]- 4287 Jul, [facility] [place] [facility] [address] [id number] [place] [address]- 1476 Jul, [facility] [place] [facility] [address] [id number] [place] [address]- 0621 Jul, [facility] [place] [facility] [address] [id number] [place] [address]- 0719 Jul, [facility] [place] [facility] [address] [id number] [place] [address]- 4521 June, [facility] [place] [facility] [address] [id number] [place] [address]- 9974 June, [facility] [place] [facility] [address] [id number] [place] [address]- 4293 May, [facility] [place] [facility] [address] [id number] [place] [address]- 7079 May, [facility] [place] [facility] [address] [id number] [place] [address]- 7827 May, [facility] [place] [facility] [address] [id number] [place] [address]- 7386 May, [facility] [place] [facility] [address] [id number] [place] [address]- 6816 May, [facility] [place] [facility] [address] [id number] [place] [address]- 8830 May, [facility] [place] [facility] [address] [id number] [place] [address]- 4400 May, [facility] [place] [facility] [address] [id number] [place] [address]- 0558 May, [facility] [place] [facility] [address] [id number] [place] [address]- 1466 May, [facility] [place] [facility] [address] [id number] [place] [address]- 4652 May, [facility] [place] [facility] [address] [id number] [place] [address]- 9497 May, [facility] [place] [facility] [address] [id number] [place] [address]- 7267 May, [facility] [place] [facility] [address] [id number] [place] [address]- 2340 Apr, [facility] [place] [facility] [address] [id number] [place] [address]- 3933 Apr, [facility] [place] [facility] [address] [id number] [place] [address]- 1426 Apr, [facility] [place] [facility] [address] [id number] [place] [address]- 8327 Apr, [facility] [place] [facility] [address] [facility] [id number] [place] [address]- 2940 Mar, [facility] [place] [facility] [address] [facility] [id number] [place] [address]- 8222 Mar, [facility] [place] [facility] [address] [facility] [id number] [place] [address]- 1403 Mar, [facility] [place] [facility] [address] [id number] [place] [address]- 5588 Mar, [facility] [place] [facility] [address] [facility] [id number] [place] [address]- 0140 Mar, [facility] [place] [facility] [address] [facility] [id number] [place] [address]- 6806 Mar, [facility] [place] [facility] [address] [facility] [id number] [place] [address]- 8141 Mar, [facility] [place] [facility] [address] [facility] [id number] [place] [address]- 1878 Mar, [facility] [place] [facility] [address] [facility] [id number] [place] [address]- 2375 Mar, [facility] [place] [facility] [address] [facility] [id number] [place] [address]- 3303 Mar, 2013 [facility] [place] [facility] [address] [facility] [id number] [place] [address]- 0421 14 Mar, 2013 [facility] [place] [facility] [address] [facility] [id number] [place] [address]- 3611 14 Mar, 2013 [facility] [place] [facility] [address] [facility] [id number] [place] [address]- 7018 13 Mar, 2013 [facility] [place] [facility] [address] [facility] [id number] [place] [address]- 0919 Mar, [facility] [place] [facility] [address] [id number] [place] [address]- 4868 Mar, [facility] [place] [facility] [address] [id number] [place] [address]- 8706 Mar, [facility] [place] [facility] [address] [id number] [place] [address]- 7236 Mar, [facility] [place] [facility] [address] [id number] [place] [address]- 3189 Mar, [facility] [place] [facility] [address] [id number] [place] [address]- 7434 Mar, [facility] [place] [facility] [address] [id number] [place] [address] Mar, [facility] [place] [facility] [address] [id number] [place] [address] Feb, [facility] [place] [facility] [address] [id number] [place] [address] Feb, [facility] [place] [facility] [address] [id number] [place] [address] Feb, [facility] [place] [facility] [address] [id number] [place] [address] Feb, [facility] [place] [facility] [address] [id number] [place] [address] Feb, [facility] [place] [facility] [address] [id number] [place] [address] Feb, [facility] [place] [facility] [address] [id number] [place] [address] Feb, [facility] [place] [facility] [address] [id number] [place] [address] Feb, [facility] [place] [facility] [address] [id number] [place] [address] Feb, [facility] [place] [facility] [address] [id number] [place] [address] 24 Feb, 2013 [facility] [address] [id number] [place] [address] Feb, [facility] [address] [id number] [place] [address] 17 Feb, 2013 [facility] [address] [id number] [place] [address] 17 Feb, 2013 [facility] [address] [id number] [place] [address] 16 Feb, 2013 [facility] [address] [id number] [place] [address] 16 Feb, 2013 [facility] [address] [id number] [place] [address] Feb, [facility] [address] [id number] [place] [address] Feb, [facility] [address] [id number] [place] [address] Feb, [facility] [address] [id number] [place] [address] Feb, [facility] [address] [id number] [place] [address] Feb, [facility] [address] [id number] [place] [address] 235[address] Feb, [facility] [address] [id number] [place] [address] Feb, [facility] [place] [facility] [address] [id number] [place] [address] Feb, [facility] [place] [facility] [address] [id number] [place] [address] Jan, [facility] [address] [id number] [place] [address] Jan, [facility] [place] [facility] [address] [id number] [place] [address] 19 Jan, 2013 [facility] [address] [id number] [place] [address] 18 Jan, 2013 [facility] [address] [id number] [place] [address] Jan, [facility] [place] [facility] [address] [id number] [place] [address] Jan, [facility] [address] [id number] [place] [address] 18 Jan, 2013 [facility] [address] [id number] [place] [address] Jan, [facility] [address] [id number] [place] [address] Jan, [facility] [address] [id number] [place] [address] Jan, [facility] [address] [id number] [place] Jan, [facility] [address] [id number] [place] [address] Jan, [facility] [place] [facility] [address] [id number] [place] [address] Jan, [facility] [place] [facility] [address] [id number], [place] [address] Dec, [facility] [place] [facility] [address] [id number] [place] [address] Dec, [facility] [place] [facility] [address] [id number] [place] [address] Dec, [facility] [place] [facility] [address] [id number], [place] [address] Dec, [facility] [place] [facility] [address] [id number], [place] [address] Dec, [facility] [id number], [place] [address] Dec, [facility] [id number], [place] [address] Nov, [facility] [id number], [place] [address] Nov, [facility] [id number], [place] [address] Nov, [facility] [id number] [place] [address] Nov, [facility] [id number] [place] [address] Nov, [facility] [id number] [place] [address] Nov, [facility] [id number], [place] [address] 28 Oct, 2012 [facility] [id number], [place] [address] 27 Oct, 2012 [facility] [id number], [place] [address] 26 Oct, 2012 [facility] [id number], [place] [address] Oct, [facility] [id number], [place] [address] 25 Oct, 2012 [facility] [id number], [place] [address] 18 Oct, 2012 [facility] [id number], [place] [address] 13 Oct, 2012 IMMUNIZATIONS No Known Immunizations SOCIAL HISTORY Never Assessed REASON FOR VISIT GRACIE suresh - Kin[facility] SHAY PLAN OF CARE Activity Details Follow Up 4 Weeks Reason:GRACIE f/u VITAL SIGNS Height 59 in 2016-09-06 Weight 135.4 lbs 2016-09-06 Heart Rate 92 bpm 2016-09-06 Respiratory Rate 20 2016-09-06 BMI 27.34 kg/m2 2016-09-06 Blood pressure systolic 110 mmHg 2016-09-06 Blood pressure diastolic 48 mmHg 2016-09-06 MEDICATIONS Medication Instructions Dosage Frequency Start Date End Date Duration Status Venlafaxine HCl ER 150 MG Orally Once a day 1 capsule with food 24h May 30 days Active HydrOXYzine HCl 25 MG Orally three times a day as needed for anxiety 1 tablet as needed Jan, 30 days Active Ritalin LA 20 mg Orally Once a day 1 capsule in the morning 24h Aug, 28 days Active RESULTS No Results PROCEDURES Procedure Date Ordered Result Body Site Billing Notes on claim September 06, 2016 INSTRUCTIONS MEDICATIONS ADMINISTERED No Known Medications [...]
--- OUTSIDE RECORDS SUMMARY | 2017-07-25 16:50 | XMS REPORT ---
Author Author JOSH Cho [facility] Address [address] [place] [address] Care Team Providers Care Sports Therapist Name Role Phone JOSH Cho Unavailable PROBLEMS Type Condition ICD9-CM Code AQX33-TI Code Onset Dates Condition Status SNOMED Code Problem Anxiety state F41.1 Active 567956021 Problem Depressive disorder, not elsewhere classified F32.9 Active 88320365 Problem ADHD (attention deficit hyperactivity disorder), combined type F90.2 Active 70090773 Problem Irritable bowel syndrome with diarrhea K58.0 Active 529977568 Problem Plantar wart of right foot B07.0 Active [id number] Problem Slow transit constipation K59.01 Active 01089617 Problem Rhinitis, unspecified type J31.0 Active 43749554 Problem Anxiety disorder, unspecified type F41.9 Active 803352089 Problem Major depressive disorder, single episode, mild F32.0 Active 80525346 ALLERGIES No Information ENCOUNTERS Encounter Location Date Diagnosis [facility] [facility] [id number] [place] [address] 90000- 0228 June, [facility] [place] [id number] [place] [address] 64017- 4728 June, [facility], [place] [id number] [place] [address] 83690- 9246 May, [facility], [place] [id number] [place] [address] 74988- 8005 May, ADHD (attention deficit hyperactivity disorder), combined type F90.2 ; Major depressive disorder, single episode, mild F32.0 and Anxiety disorder, unspecified type F41.9 [facility], [place] [id number] [place] [address] 92493- 7189 May, Anxiety disorder, unspecified type F41.9 [facility], [place] [id number] [place] [address] 99884- 1461 Apr, [facility], [place] [id number] [place] [address] 44421- 9380 Apr, Anxiety disorder, unspecified type F41.9 [facility], [place] [id number] [place] [address] 06398- 6279 Apr, Anxiety disorder, unspecified type F41.9 ; Major depressive disorder, single episode, mild F32.0 and ADHD (attention deficit hyperactivity disorder), combined type F90.2 [facility], [place] [id number] [place] [address] 85058- 2561 Apr, [facility], [place] [id number] [place] [address] 40453- 1657 Apr, ADHD (attention deficit hyperactivity disorder), combined type F90.2 ; Anxiety state F41.1 ; Depressive disorder, not elsewhere classified F32.9 ; Major depressive disorder, single episode, mild F32.0 and Anxiety disorder, unspecified type F41.9 [place] [id number] [place] [address] 91576- 4974 Mar, ADHD (attention deficit hyperactivity disorder), combined type F90.2 [place] [id number] [place] [address] 85350- 8907 Mar, Nausea R11.0 [facility], [place] [id number] [place] [address] 71214- 7907 13 Mar, 2017 Screening for STD sexually transmitted disease Z11.3 ; Vaginal candidiasis B37.3 and Irritable bowel syndrome with diarrhea K58.0 [facility], [place] [id number] [place] [address] 59962- 5697 Mar, [facility], [place] [id number] [place] [address] 87195- 8709 Feb, ADHD (attention deficit hyperactivity disorder), combined type F90.2 [facility], [place] [address] [address]- 5737 Feb, Depressive disorder, not elsewhere classified F32.9 ; Anxiety state F41.1 and ADHD (attention deficit hyperactivity disorder), combined type F90.2 [facility], [place] [address] [address]- 0708 Feb, Depressive disorder, not elsewhere classified F32.9 ; Anxiety state F41.1 and ADHD (attention deficit hyperactivity disorder), combined type F90.2 [place] [id number] [place] [address] 30608- 7939 Feb, ADHD (attention deficit hyperactivity disorder), combined type F90.2 [facility] [address] [place] [address] 23051 -5587 Jan, Other viral agents as the cause of diseases classified elsewhere B97.89 and Acute upper respiratory infection, unspecified J06.9 [place] [id number] [place] [address] 14106- 1909 Jan, ADHD (attention deficit hyperactivity disorder), combined type F90.2 ; Major depressive disorder, single episode, mild F32.0 and Anxiety disorder, unspecified type F41.9 [place] [address] [place] [address] 25065- 4174 Jan, [place] [address] [place] [address] 47883- 3421 Jan, ADHD (attention deficit hyperactivity disorder), combined type F90.2 ; Major depressive disorder, single episode, mild F32.0 and Anxiety disorder, unspecified type F41.9 [place] [address] [place] [address] 31854- 5558 Dec, Irritable bowel syndrome with diarrhea K58.0 and Lower abdominal pain R10.30 [place] [address] [address]- 3423 09 Dec, 2016 Hospital discharge follow-up Z09 ; Mesenteric adenitis I88.0 ; IBD (inflammatory bowel disease) K52.9 and Nausea R11.0 [facility] [id number] [place] [address] 09516- 3531 Nov, ADHD (attention deficit hyperactivity disorder), combined type F90.2 ; Major depressive disorder, single episode, mild F32.0 and Anxiety disorder, unspecified type F41.9 [place] [id number] [place] [address] 63528- 8738 Nov, Anxiety state F41.1 ; ADHD (attention deficit hyperactivity disorder), combined type F90.2 ; Major depressive disorder, single episode, mild F32.0 and Anxiety disorder, unspecified type F41.9 [place] [id number] [place] [address] 35225- 5513 Oct, Anxiety state F41.1 ; ADHD (attention deficit hyperactivity disorder), combined type F90.2 ; Major depressive disorder, single episode, mild F32.0 and Anxiety disorder, unspecified type F41.9 [place] [id number] [place] [address] 78277- 0003 Oct, ADHD (attention deficit hyperactivity disorder), combined type F90.2 ; Major depressive disorder, single episode, mild F32.0 and Anxiety disorder, unspecified type F41.9 [place] [address] [place] [address] 37952- 3058 Oct, Major depressive disorder, single episode, mild F32.0 ; Anxiety state F41.1 ; ADHD (attention deficit hyperactivity disorder), combined type F90.2 and Depressive disorder, not elsewhere classified F32.9 [facility] [id number] [place] [address] 42131 -4598 Oct, [facility] [id number] [place] [address] 91151 -5009 Oct, Cellulitis L03.90 and Plantar wart of right foot B07.0 [place] [id number] [place] [address] 33582- 3501 Aug, ADHD (attention deficit hyperactivity disorder), combined type F90.2 ; Major depressive disorder, single episode, mild F32.0 and Anxiety disorder, unspecified type F41.9 [facility], [place] [id number] [place] [address] 78590- 6407 Aug, [place] [id number] [place] [address] 94137- 7590 Jul, ADHD (attention deficit hyperactivity disorder), combined type F90.2 [place] [id number] [place] [address] 67406- 0719 Jul, Mesenteric adenitis I88.0 [place] [id number] [place] [address] 25990- 6833 June, [facility] [id number] [place] [address] 27556 -6860 June, Lower abdominal pain R10.30 [place] [id number] [place] [address] 34767- 5894 June, [place] [id number] [place] [address] 59462- 7941 June, ADHD (attention deficit hyperactivity disorder), combined type F90.2 and Major depressive disorder, single episode, mild F32.0 [place] [address] [address]- 8930 May, [place] [id number] [place] [address] 88400- 7218 May, ADHD (attention deficit hyperactivity disorder), combined type F90.2 and Major depressive disorder, single episode, mild F32.0 [facility] [id number] [place] [address] 66094 -3322 Apr, Abdominal pain R10.9 and Gastroenteritis and colitis, viral A08.4 [facility], [place] [address] [address]- 2868 Apr, [facility] [address] [id number] [place] [address] 67530 -0691 Mar, Acute urticaria L50.8 [facility], [place] [id number] [place] [address] 00639- 0096 Mar, [facility], [place] [id number] [place] [address] 44054- 1079 Feb, [facility] [address] 52781 -9777 Feb, Gastroenteritis K52.9 [facility], [place] [address] 66294- 8012 Feb, Irritant contact dermatitis due to cosmetics L24.3 [place] [id number] [place] [address] 54391- 3263 Jan, [place] [address] 92868- 9832 Jan, [facility], [place] [id number] [place] [address] 47094- 3217 Jan, ADHD (attention deficit hyperactivity disorder), combined type F90.2 and Major depressive disorder, single episode, mild F32.0 [facility] [id number] [place] [address] 06914 -5255 Dec, Flexural eczema L20.82 [place] [id number] [place] [address] 45927- 8782 Dec, Encounter for test Z32.00 [facility], [place] [id number] [place] [address] 72692- 1863 Dec, [place] [id number] [place] [address] 13137- 9032 Dec, [place] [id number] [place] [address] 13810- 2946 Dec, [facility] [id number] [place] [address] 38130 -3997 Nov, Sore throat J02.9 and Pharyngitis, unspecified etiology J02.9 [facility], [place] [id number] [place] [address] 09773- 3879 Nov, [facility], [place] [id number] [place] [address] 50452- 4052 Nov, [facility], [place] [address] 06490- 1544 Nov, Generalized abdominal pain R10.84 and Slow transit constipation K59.01 [facility] [id number] [place] [address] [id number] Nov, Pharyngitis, unspecified etiology J02.9 and Rhinitis, unspecified type J31.0 [facility] [place] [id number] [place] [address] 63103- 3561 Oct, Depressive disorder, not elsewhere classified F32.9 and ADHD (attention deficit hyperactivity disorder), combined type F90.2 [facility], [place] [id number] [place] [address] 23429- 4099 Oct, [facility], [place] [id number] [place] [address] 46125- 0736 Oct, [facility] [address] [place] [address] 55628 -6310 Oct, Strep throat J02.0 [facility] [place] [id number] [place] [address] 37745- 2183 16 Oct, 2015 [facility] [place] [id number] [place] [address] 84870- 5481 09 Oct, 2015 Well woman exam with routine gynecological exam Z01.419 and Screening for STD sexually transmitted disease Z11.3 [facility], [place] [address] [place] [address] 15627- 8767 Sep, ADHD (attention deficit hyperactivity disorder), combined type F90.2 ; Anxiety state F41.1 and Depressive disorder, not elsewhere classified F32.9 [facility] [place] [address] [facility] [id number] [address]- 8017 Sep, ADHD (attention deficit hyperactivity disorder), combined type F90.2 and Depressive disorder, not elsewhere classified F32.9 [facility] [place] [address] [facility] [id number] [address]- 8001 Aug, [facility], [place] [id number] 6020 Aug, ADHD (attention deficit hyperactivity disorder), combined type F90.2 and Depressive disorder, not elsewhere classified F32.9 [facility] [place] [address] [facility] [id number] [address]- 1196 Aug, ADHD (attention deficit hyperactivity disorder), combined type F90.2 ; Anxiety state F41.1 and Depressive disorder, not elsewhere classified F32.9 [facility] [place] [id number] [address]- 4309 Aug, [facility] [place] [id number] [address]- 8267 Aug, [facility], [place] [id number] [address]- 0667 Jul, ADHD (attention deficit hyperactivity disorder), combined type F90.2 ; Depressive disorder, not elsewhere classified F32.9 and Anxiety state F41.1 [facility] [place] [address] [address]- 7114 Jul, [facility] [place] [id number] [address]- 7460 Jul, ADHD (attention deficit hyperactivity disorder), combined type F90.2 ; Anxiety state F41.1 and Depressive disorder, not elsewhere classified F32.9 [facility] [place] [id number] [address]- 0880 June, [facility] [id number] [id number] June, Constipation K59.00 [facility] [place] [address] [facility] [id number] [place] [address]- 1096 28 May, 2015 Constipation K59.00 [facility] [address] [facility] [id number] [place] [address] -2868 May, Irritable bowel syndrome with diarrhea K58.0 [facility] [place] [address] [facility] [id number] [place] [address]- 9866 15 May, 2015 [facility] [place] [address] [facility] [id number] [place] [address]- 1757 15 May, 2015 [facility] [place] [address] [facility] [id number] [place] [address], [place] [address]- 0758 14 May, 2014 [facility] [place] [address] [facility] [id number] [place] [address]- 1553 May, [facility] [place] [address] [place] [address], [place] [address]- 7468 Jan, [facility] [place] [address] [facility] [id number] [place] [address]- 8379 Jan, [facility], [place] [address] [place] [address]- 2102 Jan, [facility] [place] [address] [facility] [id number] [place] [address]- 3934 Jan, [facility], [place] [address] [place] [address]- 3691 Jan, [facility] [place] [address] [facility] [id number] [place] [address]- 1176 Jan, [facility] [place] [address] [facility] [id number] [place] [address]- 0677 Nov, [facility] [place] [address] [facility] [id number] [place] [address]- 6371 Nov, [facility] [place] [id number] [place] [address]- 9636 Oct, [facility] [place] [facility] [address] [id number] [place] [address]- 4213 Oct, [facility] [place] [facility] [address] [id number] [place] [address]- 3607 Sep, [facility] [place] [facility] [address] [id number] [place] [address]- 7911 Sep, [facility] [place] [facility] [address] [id number] [place] [address]- 4985 Aug, [facility] [place] [facility] [address] [id number] [place] [address]- 0713 Aug, [facility] [place] [facility] [address] [id number] [place] [address]- 7323 Aug, [facility] [place] [facility] [address] [id number] [place] [address]- 1398 Aug, [facility] [place] [facility] [address] [id number] [place] [address]- 8869 Aug, [facility] [place] [facility] [address] [id number] [place] [address]- 5571 Aug, [facility] [place] [facility] [address] [id number] [place] [address]- 1955 Aug, [facility] [place] [facility] [address] [id number] [place] [address]- 3664 Aug, [facility] [place] [facility] [address] [id number] [place] [address]- 7778 Jul, [facility] [place] [facility] [address] [id number] [place] [address]- 5731 Jul, [facility] [place] [facility] [address] [id number] [place] [address]- 4232 Jul, [facility] [place] [facility] [address] [id number] [place] [address]- 0690 Jul, [facility] [place] [facility] [address] [id number] [place] [address]- 7129 Jul, [facility] [place] [facility] [address] [id number] [place] [address]- 6230 Jul, [facility] [place] [facility] [address] [id number] [place] [address]- 3083 Jul, [facility] [place] [facility] [address] [id number] [place] [address]- 4229 Jul, [facility] [place] [facility] [address] [id number] [place] [address]- 2703 Jul, [facility] [place] [facility] [address] [id number] [place] [address]- 0207 June, [facility] [place] [facility] [address] [id number] [place] [address]- 2188 June, [facility] [place] [facility] [address] [id number] [place] [address]- 6651 May, [facility] [place] [facility] [address] [id number] [place] [address]- 0601 May, [facility] [place] [facility] [address] [id number] [place] [address]- 3587 May, [facility] [place] [facility] [address] [id number] [place] [address]- 5723 May, [facility] [place] [facility] [address] [id number] [place] [address]- 2182 May, [facility] [place] [facility] [address] [id number] [place] [address]- 1002 May, [facility] [place] [facility] [address] [id number] [place] [address]- 0592 May, [facility] [place] [facility] [address] [id number] [place] [address]- 3475 May, [facility] [place] [facility] [address] [id number] [place] [address]- 4072 May, [facility] [place] [facility] [address] [id number] [place] [address]- 2484 May, [facility] [place] [facility] [address] [id number] [place] [address]- 3866 May, [facility] [place] [facility] [address] [id number] [place] [address]- 7673 May, [facility] [place] [facility] [address] [id number] [place] [address]- 7756 Apr, [facility] [place] [facility] [address] [id number] [place] [address]- 0296 Apr, [facility] [place] [facility] [address] [id number] [place] [address]- 8420 Apr, [facility] [place] [facility] [address] [facility] [id number] [place] [address]- 8004 Apr, [facility] [place] [facility] [address] [facility] [id number] [place] [address]- 6632 Mar, [facility] [place] [facility] [address] [id number] [place] [address]- 5614 Mar, [facility] [place] [facility] [address] [facility] [id number] [place] [address]- 4865 Mar, [facility] [place] [facility] [address] [facility] [id number] [place] [address]- 5065 Mar, [facility] [place] [facility] [address] [facility] [id number] [place] [address]- 6367 Mar, [facility] [place] [facility] [address] [facility] [id number] [place] [address]- 6547 Mar, [facility] [place] [facility] [address] [facility] [id number] [place] [address]- 8557 Mar, [facility] [place] [facility] [address] [facility] [id number] [place] [address]- 8930 Mar, [facility] [place] [facility] [address] [facility] [id number] [place] [address]- 3943 Mar, [facility] [place] [facility] [address] [id number] [place] [address]- 4626 Mar, [facility] [place] [facility] [address] [id number] [place] [address] Mar, [facility] [place] [facility] [address] [id number] [place] [address] Mar, [facility] [place] [facility] [address] [id number] [place] [address] Mar, [facility] [place] [facility] [address] [id number] [place] [address] Mar, [facility] [place] [facility] [address] [id number] [place] [address] Mar, [facility] [place] [facility] [address] [facility] [id number] [place] [address] Mar, [facility] [place] [facility] [address] [id number] [place] [address] Mar, [facility] [place] [facility] [address] [id number] [place] [address]- [address] Mar, [facility] [place] [facility] [address] [facility] [id number] [place] [address] Mar, [facility] [place] [facility] [address] [id number] [place] [address] Mar, [facility] [place] [facility] [address] [id number] [place] [address] Feb, [facility] [place] [facility] [address] [id number] [place] [address] Feb, [facility] [place] [facility] [address] [id number] [place] [address] Feb, [facility] [place] [facility] [address] [id number] [place] [address]- [address] Feb, [facility] [place] [facility] [address] [id number] [place] [address] Feb, [facility] [place] [facility] [address] [id number] [place] [address]- [address] Feb, [facility] [place] [facility] [address] [id number] [place] [address] Feb, [facility] [place] [facility] [address] [id number] [place] [address]- [address] Feb, [facility] [place] [facility] [address] [id number] [place] [address]- [address] Feb, [facility] [place] [facility] [address] [id number] [place] [address]- [address] Feb, [facility] [place] [facility] [address] [id number] [place] [address] Feb, [facility] [place] [facility] [address] [id number] [place] [address]- [address] Feb, [facility] [place] [facility] [address] [id number] [place] [address]- [address] Feb, [facility] [place] [facility] [address] [id number] [place] [address]- [address] Feb, [facility] [place] [facility] [address] [id number] [place] [address] Feb, [facility] [place] [facility] [address] [id number] [place] [address]- [address] Feb, [facility] [place] [facility] [address] [id number] [place] [address]- [address] Feb, [facility] [place] [facility] [address] [address] [id number] [place] [address] Feb, [facility] [place] [facility] [address] [id number] [place] [address] Feb, [facility] [place] [facility] [address] [id number] [place] [address] 07 Feb, 2013 [facility] [address] [id number] [place] [address] 07 Feb, 2013 [facility] [address] [id number] [place] [address] Feb, [facility] [address] [id number] [place] [address] Feb, [facility] [address] [id number] [place] [address] 24 Jan, 2013 [facility] [address] [id number] [place] [address] 24 Jan, 2013 [facility] [address] [id number] [place] [address] Jan, [facility] [address] [id number] [place] [address] 18 Jan, 2013 [facility] [address] [id number] [place] [address] 18 Jan, 2013 [facility] [address] [id number] [place] [address] 18 Jan, 2013 [facility] [address] [id number] [place] [address] 18 Jan, 2013 [facility] [address] [id number] [place] [address] 17 Jan, 2013 [facility] [place] [facility] [address] [id number] [place] [address] 17 Jan, 2013 [facility] [place] [facility] [address] [id number] [place] [address] 2013 [facility] [place] [facility] [address] [id number] [place] [address] 2013 [facility] [place] [facility] [address] [id number] [place] [address] 04 Jan, 2013 [facility] [place] [facility] [address] [id number] [place] [address] Jan, [facility] [place] [facility] [address] [id number] [place] [address] Dec, [facility] [place] [facility] [address] [id number] [place] [address] Dec, [facility] [place] [facility] [address] [id number] [place] [address] Dec, [facility] [place] [facility] [address] [id number] [place] [address] Dec, [facility] [place] [facility] [address] [id number] [place] [address] Dec, [facility] [place] [facility] [address] [id number] [place] [address] Dec, [facility] [place] [facility] [address] [id number] [place] [address] Nov, [facility] [place] [facility] [address] [id number] [place] [address] Nov, [facility] [place] [facility] [address] [id number] [place] [address] Nov, [facility] [place] [facility] [address] [id number] [place] [address] Nov, [facility] [place] [facility] [address] [id number] [place] [address] Nov, [facility] [place] [facility] [address] [id number] [place] [address] Nov, [facility] [place] [facility] [address] [id number] [place] [address] Oct, [facility] [place] [facility] [address] [id number] [place] [address] 27 Oct, 2012 [facility] [place] [facility] [address] [id number] [place] [address] Oct, [facility] [place] [address] [facility] [id number] [place] [address] Oct, [facility] [place] [address] [facility] [id number] [address] Oct, [facility] [place] [address] [facility] [id number][place] [address] Oct, [facility] [place] [address] [facility] [id number][place] [address] Oct, IMMUNIZATIONS No Known Immunizations SOCIAL HISTORY Never Assessed REASON FOR VISIT PLAN OF CARE VITAL SIGNS MEDICATIONS Unknown [...]
--- NOTE | 2017-07-25 16:57 | ED Abdominal Pain ---
General Chief Complaint: Abdominal/GI Problems Stated Complaint: VOMITING Source of Information: Patient Exam Limitations: No Limitations History of Present Illness Date Seen by Provider: Jul 25, 2017 Time Seen by Provider: 16:55 Initial Comments mto ER with nausea and vomiting for 2-3 days. She is tried ODT Zofran without relief. She's also tried vzwg-dar-soaglsy Pepto-Bismol at home. She also reports unprotected sex last week and some suprapubic abdominal pain since yesterday. She denies having noticed any vaginal discharge, but states that she really hasn't been paying attention either. Chills but no fever. No bowel changes. Timing/Duration: 1-2 Days Severity/Quality: Moderate Location: Suprapubic Radiation: No Radiation Activities at Onset: None Associated Symptoms: Denies Symptoms Allergies and Home Medications Allergies Coded Allergies: No Known Drug Allergies (Unverified , 08/06/16) Home Medications Dicyclomine HCl 10 Mg Capsule, 10 MG PO QID Prescribed by: ROSA ESTEVEZ on 11/29/162019 Doxycycline Hyclate 100 Mg Tablet, 100 MG PO Q12H Prescribed by: ANASTACIA LAM on 09/25/16 183 Hydroxyzine HCl 25 Mg Tablet, 25 MG PO TID PRN for ANXIETY Prescribed by: GEORGINA AHMADI on 10/08/15 193 Hyoscyamine Sulfate 0.125 Mg Tab.subl, 1-2 TAB SL Q4H Prescribed by: BRENDA ADAMS on 01/14/172357 Ondansetron 8 Mg Tab.rapdis, 8 MG PO Q6H PRN for NAUSEA/VOMITING-1ST LINE Prescribed by: ROSA ESTEVEZ on 11/29/162031 Ondansetron 8 Mg Tab.rapdis, 8 MG PO Q4H Prescribed by: BRENDA ADAMS on 01/14/172357 Pantoprazole Sodium 40 Mg Tablet.dr, 40 MG PO DAILY Prescribed by: BRENDA ADAMS on 01/14/172357 Patient Home Medication List Home Medication List Reviewed: Yes Review of Systems Constitutional: see HPI EENTM: No Symptoms Reported Respiratory: No Symptoms Reported Cardiovascular: No Symptoms Reported Gastrointestinal: See HPI, Abdominal Pain; Denies Diarrhea; Nausea Genitourinary: No Symptoms Reported Musculoskeletal: no symptoms reported Skin: no symptoms reported Psychiatric/Neurological: No Symptoms Reported Endocrine: No Symptoms Reported Hematologic/Lymphatic: No Symptoms Reported Past [place]-Lylcwi Hx Patient Social History Alcohol Use: Denies Use Recreational Drug Use: No Drug of Choice: MARIJUA[place] 2nd Hand Smoke Exposure: Yes Recent Foreign Travel: No Contact w/Someone Who Travel: No Recent Hopitalizations: No Immunizations Up To Date Tetanus Booster (TDap): Less than 5yrs PED Vaccines UTD: No Date of Influenza Vaccine: Dec 21, 2012 Seasonal Allergies Seasonal Allergies: Yes Past Medical History Surgeries: Yes (HERNIA REPAIR ; COLONOSCOPY 2014 IN CODY) Abdominal Respiratory: Yes Asthma Currently Using CPAP: No Currently Using BIPAP: No Cardiac: No Neurological: No Reproductive Disorders: No Female Reproductive Disorders: Denies Sexually Transmitted Disease: No HIV/AIDS: No Genitourinary: Yes Bladder Infection Gastrointestinal: Yes (MESENTERIC ADENITIS. CHRONIC ABDOMINAL PAIN, NAUSEA/ VOMITING COMPLAINTS) Irritable Bowel Musculoskeletal: No Endocrine: No HEENT: No Cancer: No Psychosocial: Yes ADD/ADHD, Anxiety, Suicide Attempts, Bipolar, Depression Integumentary: Yes Eczema Blood Disorders: No Adverse Reaction/Blood Tranf: No Family Medical History No Family History of: Alcoholism Cancer Chest pain Congenital heart disease Congestive heart failure Family history: Arthritis Family history: Asthma Family history: Breast disease Family history: Cardiovascular disease Family history: Coronary thrombosis Family history: Diabetes mellitus Family history: Hypertension Family history: Thyroid disorder Headache History of - anemia History of - respiratory disease History of drug abuse Human immunodeficiency virus (HIV) seropositivity Hypercholesterolemia Infertile Kidney disease Myocardial infarction Psychotic disorder Seizure disorder Stroke Tuberculosis Visual impairment Physical Exam Vital Signs Vital Signs - First Documented 07/25/17 16:40 Temp 97.0 Pulse 82 Resp 18 B/P (MAP) 110/70 (83) Capillary Refill : General Appearance: WD/WN, no apparent distress HEENT: PERRL/EOMI, normal ENT inspection Neck: non-tender, full range of motion Respiratory: normal breath sounds, no respiratory distress, no accessory muscle use Gastrointestinal: normal bowel sounds, soft, tenderness (suprapubic tenderness to palpation) Extremities: normal range of motion, non-tender Neurologic/Psychiatric: alert, normal mood/affect, oriented x 3 Skin: normal color, warm/dry Progress/Results/Core Measures Results/Orders Lab Results Laboratory Tests Test 07/25/17 16:46 07/25/17 17:24 Range/Units White Blood Count 9.1 4.3-11.0 10^3/uL Red Blood Count 5.39 4.35-5.85 10^6/uL Hemoglobin 15.6 11.5-16.0 G/DL Hematocrit 45 35-52 % Mean Corpuscular Volume 84 80-99 FL Mean Corpuscular Hemoglobin 29 25-34 PG Mean Corpuscular Hemoglobin Concent 35 32-36 G/DL Red Cell Distribution Width 13.7 10.0-14.5 % Platelet Count 307 130-400 10^3/uL Mean Platelet Volume 11.0 H 7.4-10.4 FL Neutrophils (%) (Auto) 81 H 42-75 % Lymphocytes (%) (Auto) 15 12-44 % Monocytes (%) (Auto) 4 0-12 % Eosinophils (%) (Auto) 0 0-10 % Basophils (%) (Auto) 1 0-10 % Neutrophils # (Auto) 7.3 1.8-7.8 X 10^3 Lymphocytes # (Auto) 1.4 1.0-4.0 X 10^3 Monocytes # (Auto) 0.3 0.0-1.0 X 10^3 Eosinophils # (Auto) 0.0 0.0-0.3 10^3/uL Basophils # (Auto) 0.1 0.0-0.1 10^3/uL Sodium Level 139 135-145 MMOL/L Potassium Level 3.8 3.6-5.0 MMOL/L Chloride Level 104 98-107 MMOL/L Carbon Dioxide Level 22 21-32 MMOL/L Anion Gap 13 5-14 MMOL/L Blood Urea Nitrogen 11 7-18 MG/DL Creatinine 0.81 0.60-1.30 MG/DL Estimat Glomerular Filtration Rate > 60 BUN/Creatinine Ratio 14 Glucose Level 169 H 70-105 MG/DL Calcium Level 9.9 8.5-10.1 MG/DL Total Bilirubin 0.5 0.1-1.0 MG/DL Aspartate Amino Transf (AST/SGOT) 17 5-34 U/L Alanine Aminotransferase (ALT/SGPT) 16 0-55 U/L Alkaline Phosphatase 85 40-136 U/L Total Protein 8.4 H 6.4-8.2 GM/DL Albumin 4.7 H 3.2-4.5 GM/DL Serum Test, Qualitative NEGATIVE NEGATIVE Urine Color YELLOW Urine Clarity SLIGHTLY CLOUDY Urine pH 6 5-9 Urine Specific [place] 1.020 1.016-1.022 Urine Protein 2+ H NEGATIVE Urine Glucose (UA) NEGATIVE NEGATIVE Urine Ketones NEGATIVE NEGATIVE Urine Nitrite NEGATIVE NEGATIVE Urine Bilirubin NEGATIVE NEGATIVE Urine Urobilinogen 1 NORMAL MG/DL Urine Leukocyte Esterase 1+ H NEGATIVE Urine RBC (Auto) 1+ H NEGATIVE Urine RBC RARE /HPF Urine WBC 2-5 /HPF Urine Squamous Epithelial Cells 25-50 H /HPF Urine Crystals NONE /LPF Urine Bacteria FEW H /HPF Urine Casts NONE /LPF Urine Mucus LARGE H /LPF Urine Culture Indicated NO My Orders Orders - ROSA ESTEVEZ APRN Cbc With Automated Diff (07/25/17 16:50) Comprehensive Metabolic Panel (07/25/17 16:50) Hcg,Qualitative Serum (07/25/17 16:50) Ua Culture If Indicated (07/25/17 16:50) Wet Prep (07/25/17 16:50) Neisseria Gonorrhea Swab (07/25/17 16:50) Genital Culture (07/25/17 16:50) Chlamydia Trachomatis Urine (07/25/17 16:50) Ns Iv 1000 Ml (Sodium Chloride 0.9%) (07/25/17 17:00) Prochlorperazine Injection (Compazine In (07/25/17 17:00) Ceftriaxone Injection (Rocephin Injectio (07/25/17 17:00) Azithromycin Tablet (Zithromax Tablet) (07/25/17 17:00) Medications Given in ED Current Medications Medications Dose Ordered Sig/Sony Route Start Time Stop Time Status Last Admin Dose Admin Prochlorperazine Edisylate 5 mg ONCE ONCE IV 07/25/17 17:00 07/25/17 17:01 DC 07/25/17 17:10 5 MG Vital Signs/I&O 07/25/17 16:40 Temp 97.0 Pulse 82 Resp 18 B/P (MAP) 110/70 (83) Departure Impression Primary Impression: Left against medical advice Disposition: 07 AGAINST MEDICAL ADVICE Condition: Against Medical Advice Departure-Patient Inst. Referrals: [facility] (PCP/Family) Primary Care Physician ROSA ESTEVEZ APRN Jul 25, 2017 16:57
[2017-07-25 16:59] LABS: BASOPHILS # (AUTO) 0.1 10^3/uL (0.0-0.1); BASOPHILS % (AUTO) 1 % (0-10); EOSINOPHILS % (AUTO) 0 % (0-10); HEMATOCRIT 45 % (35-52); HEMOGLOBIN 15.6 G/DL (11.5-16.0); LYMPHOCYTES # (AUTO) 1.4 X 10^3 (1.0-4.0); LYMPHOCYTES % (AUTO) 15 % (12-44); MEAN CORPUSCULAR HEMOGLOBIN 29 PG (25-34); MEAN CORPUSCULAR HGB CONC 35 G/DL (32-36); MEAN CORPUSCULAR VOLUME 84 FL (80-99); MONOCYTES # (AUTO) 0.3 X 10^3 (0.0-1.0); MONOCYTES % (AUTO) 4 % (0-12); NEUTROPHILS # (AUTO) 7.3 X 10^3 (1.8-7.8); NEUTROPHILS % (AUTO) 81 % (42-75); PLATELET COUNT 307 10^3/uL (130-400); RED BLOOD COUNT 5.39 10^6/uL (4.35-5.85); RED CELL DISTRIBUTION WIDTH 13.7 % (10.0-14.5); WHITE BLOOD COUNT 9.1 10^3/uL (4.3-11.0)
[2017-07-25] MEDS ORDERED: PROCHLORPERAZINE 10 MG/2ML INJ (COMPAZINE) IV ONE (17:00)
[2017-07-25] MEDS ORDERED: NS IV 1000 ML 1,000 ML IV SCH (17:00)
[2017-07-25] MEDS ORDERED: AZITHROMYCIN 250 MG TAB (ZITHROMAX) PO SCH (17:00)
[2017-07-25] MEDS ORDERED: cefTRIAXone INJECTION 1,000 MG in NS (IVPB) 50 ML IV ONE (17:00)
[2017-07-25 17:13] LABS: ALANINE AMINOTRANSFERASE 16 U/L (0-55); ALBUMIN 4.7 GM/DL (3.2-4.5); ALKALINE PHOSPHATASE 85 U/L (40-136); BILIRUBIN,TOTAL 0.5 MG/DL (0.1-1.0); BUN/CREATININE RATIO 14; CALCIUM 9.9 MG/DL (8.5-10.1); CARBON DIOXIDE 22 MMOL/L (21-32); CHLORIDE 104 MMOL/L (98-107); CREATININE SERUM 0.81 MG/DL (0.60-1.30); GFR ESTIMATED > 60; GLUCOSE 169 MG/DL (70-105); POTASSIUM 3.8 MMOL/L (3.6-5.0); SODIUM 139 MMOL/L (135-145); TOTAL PROTEIN 8.4 GM/DL (6.4-8.2)
[2017-07-25 17:51] VITALS: BP 110/70
[2017-07-25 17:53] LABS: BILIRUBIN,URINE NEGATIVE (NEGATIVE); CLARITY,URINE SLIGHTLY CLOUDY; COLOR,URINE YELLOW; GLUCOSE, URINE (UA) NEGATIVE (NEGATIVE); KETONES,URINE NEGATIVE (NEGATIVE); LEUKOCYTE ESTERASE ,URINE 1+ (NEGATIVE); NITRITE,URINE NEGATIVE (NEGATIVE); PH,URINE 6 (5-9); PROTEIN,URINE 2+ (NEGATIVE); UROBILINOGEN,URINE 1 MG/DL (NORMAL)
[2017-07-25 18:00] LABS: BACTERIA,URINE FEW /HPF; RBC,URINE RARE /HPF
[2017-07-25 18:01] LABS: SQUAMOUS EPITHELIAL CELL,UR 25-50 /HPF
== END 2017-07-25 17:51 | disposition left against medical advice (07) ==
LOC: EDUNIT# 16:36 → ER 16:37
DX: R11.2 Nausea with vomiting, unspecified (principal); F90.9 Attention-deficit hyperactivity disorder, unspecified type; J45.909 Unspecified asthma, uncomplicated; F41.9 Anxiety disorder, unspecified; F31.9 Bipolar disorder, unspecified; Z77.22 Contact with and (suspected) exposure to environmental tobacco smoke (acute) (chronic); Z87.2 Personal history of diseases of the skin and subcutaneous tissue; Z91.5 Personal history of self-harm; Z98.890 Other specified postprocedural states
CPT/HCPCS: 36415; 80053; 81000; 84703; 85025; 96361; 96374

== ENCOUNTER 2017-09-10 17:47 | Emergency (ER) | payer SELFPAY ==
--- OUTSIDE RECORDS SUMMARY | 2017-09-10 18:11 | XMS REPORT ---
Author Author VESTA JOSE Organization [facility] Address [address] [place] [address] Care Team Providers Care Javascript Web Developer Name Role Phone HORACIOGURU CHAMPAGNEA Unavailable PROBLEMS Type Condition ICD9-CM Code [id number] Code Onset Dates Condition Status SNOMED Code Problem Anxiety state F41.1 Active 197322938 Problem Depressive disorder, not elsewhere classified F32.9 Active 51740409 Problem ADHD (attention deficit hyperactivity disorder), combined type F90.2 Active 38553003 Problem Irritable bowel syndrome with diarrhea K58.0 Active 043863346 Problem Plantar wart of right foot B07.0 Active [id number] Problem Slow transit constipation K59.01 Active 94552914 Problem Rhinitis, unspecified type J31.0 Active 26388725 Problem Anxiety disorder, unspecified type F41.9 Active 714171185 Problem Major depressive disorder, single episode, mild F32.0 Active [id number] ALLERGIES No Known Allergies ENCOUNTERS Encounter Location Date Diagnosis [place] [id number] [place] [address] 90033- 1722 Aug, ADHD (attention deficit hyperactivity disorder), combined type F90.2 [facility] [address], [place] [address] Jul, ADHD (attention deficit hyperactivity disorder), combined type F90.2 [facility] [address] [address] June, ADHD (attention deficit hyperactivity disorder), combined type F90.2 ; Major depressive disorder, single episode, mild F32.0 and Anxiety disorder, unspecified type F41.9 [facility] [address] [address] June, [facility] [id number] [address] 3718 June, ADHD (attention deficit hyperactivity disorder), combined type F90.2 [facility] [id number] [address] 7416 May, [facility] [id number] [address] 8053 May, ADHD (attention deficit hyperactivity disorder), combined type F90.2 ; Major depressive disorder, single episode, mild F32.0 and Anxiety disorder, unspecified type F41.9 [facility] [address] [address] 34[address] May, Anxiety disorder, unspecified type F41.9 [facility] [id number], [place] [address] 3311 Apr, [facility] [id number] [place] [address] 59400- 5518 Apr, Anxiety disorder, unspecified type F41.9 [facility] [address], [place] [address] 0[address] Apr, Anxiety disorder, unspecified type F41.9 ; Major depressive disorder, single episode, mild F32.0 and ADHD (attention deficit hyperactivity disorder), combined type F90.2 [facility] [address], [place] [address] Apr, [facility] [address], [place] [address] 4148 Apr, ADHD (attention deficit hyperactivity disorder), combined type F90.2 ; Anxiety state F41.1 ; Depressive disorder, not elsewhere classified F32.9 ; Major depressive disorder, single episode, mild F32.0 and Anxiety disorder, unspecified type F41.9 [facility] [address], [place] [address] 7882 Mar, ADHD (attention deficit hyperactivity disorder), combined type F90.2 [facility] [id number] [place] [address] 01728- 6930 20 Mar, 2017 Nausea R11.0 [facility] [address] [address]- [address] 13 Mar, 2017 Screening for STD sexually transmitted disease Z11.3 ; Vaginal candidiasis B37.3 and Irritable bowel syndrome with diarrhea K58.0 [place] [address] [address] [id number] [place] [address] 25490- 5272 04 Mar, 2017 [facility] [id number] [place] [address] 91471- 5091 Feb, ADHD (attention deficit hyperactivity disorder), combined type F90.2 [place] [id number] [place] [address] 75742- 9417 Feb, Depressive disorder, not elsewhere classified F32.9 ; Anxiety state F41.1 and ADHD (attention deficit hyperactivity disorder), combined type F90.2 [place] [address] [place] [address] [id number] [place] [address] 78672- 1799 Feb, Depressive disorder, not elsewhere classified F32.9 ; Anxiety state F41.1 and ADHD (attention deficit hyperactivity disorder), combined type F90.2 [place] [address] [address] [id number] [place] [address] 55014- 6801 Feb, ADHD (attention deficit hyperactivity disorder), combined type F90.2 [facility] [id number] [place] [address] 70880 -9153 Jan, Other viral agents as the cause of diseases classified elsewhere B97.89 and Acute upper respiratory infection, unspecified J06.9 [place] [address] [place] [id number] [place] [address] 00729- 3226 Jan, ADHD (attention deficit hyperactivity disorder), combined type F90.2 ; Major depressive disorder, single episode, mild F32.0 and Anxiety disorder, unspecified type F41.9 [place] [address] [place] [id number] [place] [address] 87116- 8879 Jan, [place] [address], [place] [address]- 2769 Jan, ADHD (attention deficit hyperactivity disorder), combined type F90.2 ; Major depressive disorder, single episode, mild F32.0 and Anxiety disorder, unspecified type F41.9 [place] [address] [place] [id number] [place] [address] 37625- 2061 Dec, Irritable bowel syndrome with diarrhea K58.0 and Lower abdominal pain R10.30 [place] [address] [place] [id number] [place] [address] 15370- 7443 Dec, Hospital discharge follow-up Z09 ; Mesenteric adenitis I88.0 ; IBD (inflammatory bowel disease) K52.9 and Nausea R11.0 [place] [address] [place] [id number] [place] [address] 55620- 1750 Nov, ADHD (attention deficit hyperactivity disorder), combined type F90.2 ; Major depressive disorder, single episode, mild F32.0 and Anxiety disorder, unspecified type F41.9 [place] [id number] [place] [address] 07610- 0648 Nov, Anxiety state F41.1 ; ADHD (attention deficit hyperactivity disorder), combined type F90.2 ; Major depressive disorder, single episode, mild F32.0 and Anxiety disorder, unspecified type F41.9 [place] [address], [place] [address]- 4826 Oct, Anxiety state F41.1 ; ADHD (attention deficit hyperactivity disorder), combined type F90.2 ; Major depressive disorder, single episode, mild F32.0 and Anxiety disorder, unspecified type F41.9 [place] [address] [place] [id number] [place] [address] 69924- 3941 Oct, ADHD (attention deficit hyperactivity disorder), combined type F90.2 ; Major depressive disorder, single episode, mild F32.0 and Anxiety disorder, unspecified type F41.9 [place] [address] [place] [id number] [place] [address] 66574- 4854 Oct, Major depressive disorder, single episode, mild F32.0 ; Anxiety state F41.1 ; ADHD (attention deficit hyperactivity disorder), combined type F90.2 and Depressive disorder, not elsewhere classified F32.9 [facility] [id number] [place] [address] 04209 -1967 16 Oct, 2016 [facility] [id number] [place] [address] 76070 -1394 Oct, Cellulitis L03.90 and Plantar wart of right foot B07.0 [facility] [address] [place] [id number] [place] [address] 76670- 1658 Aug, ADHD (attention deficit hyperactivity disorder), combined type F90.2 ; Major depressive disorder, single episode, mild F32.0 and Anxiety disorder, unspecified type F41.9 [facility] [id number] [place] [address] 79818- 9599 Aug, [facility] [id number] [place] [address] 85208- 2972 Jul, ADHD (attention deficit hyperactivity disorder), combined type F90.2 [place] [address] [place] [id number] [place] [address] 89501- 1641 Jul, Mesenteric adenitis I88.0 [facility] [id number] [place] [address] 32941- 5692 June, [facility] [id number] [place] [address] 64426 -6780 June, Lower abdominal pain R10.30 [place] [address] [place] [id number] [place] [address] 44614- 4300 June, [facility] [address] [place] [id number] [place] [address] 03115- 2859 June, ADHD (attention deficit hyperactivity disorder), combined type F90.2 and Major depressive disorder, single episode, mild F32.0 [place] [address] [place] [id number] [place] [address]- 3040 May, [facility] [id number] [place] [address] 38772- 5523 May, ADHD (attention deficit hyperactivity disorder), combined type F90.2 and Major depressive disorder, single episode, mild F32.0 [facility] [id number] [place] [address] 10279 -0028 Apr, Abdominal pain R10.9 and Gastroenteritis and colitis, viral A08.4 [facility] [address] [place] [id number] [place] [address] 43788- 6371 Apr, [facility] [id number] [place] [address] 25322 -2101 Mar, Acute urticaria L50.8 [facility] [address] [place] [id number] [place] [address] 50701- 8430 Mar, [facility] [id number] [place] [address] 63586- 9678 Feb, [facility] [id number] [place] [address] 70084 -8441 Feb, Gastroenteritis K52.9 [facility] [address] [place] [id number] [place] [address] 19239- 6643 Feb, Irritant contact dermatitis due to cosmetics L24.3 [place] [address] [place] [id number] [place] [address] 15686- 5753 Jan, [facility] [address] [place] [id number] [place] [address] 87089- 1914 Jan, [place] [address] [place] [address] [id number] [place] [address] 65622- 7850 Jan, ADHD (attention deficit hyperactivity disorder), combined type F90.2 and Major depressive disorder, single episode, mild F32.0 [facility] [id number] [place] [address] 08980 -1349 Dec, Flexural eczema L20.82 [facility] [id number] [place] [address] 34823- 7243 Dec, Encounter for test Z32.00 [facility] [id number] [place] [address] 51468- 1522 Dec, [facility] [address] 43047- 5641 Dec, [facility] [address] 64849- 8551 Dec, [facility] [address] 34871 -9929 Nov, Sore throat J02.9 and Pharyngitis, unspecified etiology J02.9 [facility] [address] 18622- 5398 Nov, [facility] [address] 86506- 5713 Nov, [facility] [address] 52256- 6359 Nov, Generalized abdominal pain R10.84 and Slow transit constipation K59.01 [facility] [id number] [place] [address] [id number] 05 Nov, 2015 Pharyngitis, unspecified etiology J02.9 and Rhinitis, unspecified type J31.0 [facility] [id number] [place] [address] 08200- 5596 Oct, Depressive disorder, not elsewhere classified F32.9 and ADHD (attention deficit hyperactivity disorder), combined type F90.2 [facility] [address] 49831- 4657 Oct, [facility] [address] 64711- 3052 Oct, [facility] [address] [place] [address]154 20 Oct, 2015 Strep throat J02.0 [facility] [id number] [place] [address] 35539- 7347 16 Oct, 2015 [facility] [id number] [place] [address] 49966- 4542 Oct, Well woman exam with routine gynecological exam Z01.419 and Screening for STD sexually transmitted disease Z11.3 [facility] [address] [place] [id number] [place] [address] 20384- 2049 Sep, ADHD (attention deficit hyperactivity disorder), combined type F90.2 ; Anxiety state F41.1 and Depressive disorder, not elsewhere classified F32.9 [facility] [address] [place] [id number] [place] [address] 75848- 4109 Sep, ADHD (attention deficit hyperactivity disorder), combined type F90.2 and Depressive disorder, not elsewhere classified F32.9 [place] [id number] [place] [address] 92875- 8590 Aug, [facility] [address] [place] [id number] [place] [address] 24511- 8886 Aug, ADHD (attention deficit hyperactivity disorder), combined type F90.2 and Depressive disorder, not elsewhere classified F32.9 [facility] [address], [place] [address]- 2276 Aug, ADHD (attention deficit hyperactivity disorder), combined type F90.2 ; Anxiety state F41.1 and Depressive disorder, not elsewhere classified F32.9 [facility] [address], [place] [address]- 6398 Aug, [facility] [id number] [place] [address] 97433- 3003 Aug, [facility] [address], [place] [address]- 1908 Jul, ADHD (attention deficit hyperactivity disorder), combined type F90.2 ; Depressive disorder, not elsewhere classified F32.9 and Anxiety state F41.1 [facility] [id number], [place] [address]- 3859 Jul, [facility] [id number] [place] [address] 39572- 6744 Jul, ADHD (attention deficit hyperactivity disorder), combined type F90.2 ; Anxiety state F41.1 and Depressive disorder, not elsewhere classified F32.9 [facility] [id number] [place] [address] 48685- 4903 June, [facility] [id number] [place] [address] [id number] June, Constipation K59.00 [facility] [id number] [place] [address] 96112- 7387 May, Constipation K59.00 [facility] [id number] [place] [address] 74904 -5293 May, Irritable bowel syndrome with diarrhea K58.0 [facility] [id number] [place] [address] 63143- 7922 May, [facility] [id number] [place] [address] 36099- 9659 May, [facility] [id number] [place] [address] 97517- 2329 May, [facility] [id number] [place] [address] 47423- 2896 May, [facility] [id number] [place] [address] 97295- 6254 Jan, [facility] [id number] [place] [address] 07080- 9940 Jan, [facility] [id number] [place] [address] 95895- 9445 Jan, [facility] [id number] [place] [address] 18961- 5097 Jan, [facility] [place] [facility] [address] [id number] [place]239 Jan, [facility] [place] [facility] [address] [id number] [place] [address]- 7309 Jan, [facility] [place] [facility] [address] [id number] [place] [address]- 5399 Nov, [facility] [place] [facility] [address] [id number] [place] [address]- 7567 Nov, [facility] [place] [facility] [address] [id number] [place] [address]- 8480 Oct, [facility] [place] [facility] [address] [id number] [place] [address]- 2037 Oct, [facility] [place] [facility] [address] [id number] [place] [address]- 7718 Sep, [facility] [place] [facility] [address] [id number] [place] [address]- 3932 Sep, [facility] [place] [facility] [address] [id number] [place] [address]- 7158 Aug, [facility] [place] [facility] [address] [id number] [place] [address]- 9103 Aug, [facility] [place] [facility] [address] [id number] [place] [address]- 3247 Aug, [facility] [place] [facility] [address] [id number] [place] [address]- 1254 Aug, [facility] [place] [facility] [address] [id number] [place] [address]- 8682 Aug, [facility] [place] [facility] [address] [id number] [place] 9453 Aug, [facility] [place] [facility] [address] [id number] [place] 6814 Aug, [facility] [place] [facility] [address] [id number] [place] [address]- 3615 Aug, [facility] [place] [facility] [address] [id number] [place] [address]- 3850 Jul, [facility] [place] [facility] [address] [id number] [place] [address]- 9773 Jul, [facility] [place] [facility] [address] [id number] [place] [address]- 8106 Jul, [facility] [place] [facility] [address] [id number] [place] [address]- 4048 Jul, [facility] [place] [facility] [address] [id number] [place] [address]- 8630 Jul, [facility] [place] [facility] [address] [id number] [place] [address]- 4384 Jul, [facility] [place] [facility] [address] [id number] [place] [address]- 4549 Jul, [facility] [place] [facility] [address] [id number] [place] [address]- 1017 Jul, [facility] [place] [facility] [address] [id number] [place] [address]- 1414 Jul, [facility] [place] [facility] [address] [id number] [place] [address]- 6603 June, [facility] [place] [facility] [address] [id number] [place] [address]- 4979 June, [facility] [place] [facility] [address] [id number] [place] [address]- 7011 May, [facility] [place] [facility] [address] [id number] [place] [address]- 3470 May, [facility] [place] [facility] [address] [id number] [place] [address]- 9144 May, [facility] [place] [facility] [address] [id number] [place] [address]- 4114 May, [facility] [place] [facility] [address] [id number] [place] [address]- 5563 May, [facility] [place] [facility] [address] [id number] [place] [address]- 7972 May, [facility] [place] [facility] [address] [id number] [place] [address]- 2088 May, [facility] [place] [facility] [address] [id number] [place] [address]- 6738 May, [facility] [place] [facility] [address] [id number] [place] [address]- 6292 May, [facility] [place] [facility] [address] [id number] [place] [address]- 1914 May, [facility] [place] [facility] [address] [id number] [place] [address]- 0587 May, [facility] [place] [facility] [address] [id number] [place] [address]- 5148 May, [facility] [place] [facility] [address] [id number] [place] [address]- 6570 Apr, [facility] [place] [facility] [address] [id number] [place] [address]- 6491 Apr, [facility] [place] [facility] [address] [id number] [place] [address]- 6548 Apr, [facility] [place] [facility] [address] [id number] [place] [address]- 2800 Apr, [facility] [place] [facility] [address] [id number] [place] [address]- 0014 Mar, [facility] [place] [facility] [address] [id number] [place] [address]- 8993 Mar, [facility] [place] [facility] [address] [id number] [place] [address]- 9242 Mar, [facility] [place] [facility] [address] [id number] [place] [address]- 5790 28 Mar, 2013 [facility] [place] [facility] [address] [id number] [place] [address]- 8135 Mar, 2013 [facility] [place] [facility] [address] [id number] [place] [address]- 7136 27 Mar, 2013 [facility] [place] [facility] [address] [facility] [id number] [place] [address]- 7678 19 Mar, 2013 [facility] [place] [facility] [address] [id number] [place] [address]- 0328 Mar, [facility] [place] [facility] [address] [facility] [id number] [place] [address]- 8146 Mar, 2013 [facility] [place] [facility] [address] [facility] [id number] [place] [address]- 0003 Mar, 2013 [facility] [place] [facility] [address] [facility] [id number] [place] [address]- 3170 14 Mar, 2013 [facility] [place] [facility] [address] [facility] [id number] [place] [address]- 1229 14 Mar, 2013 [facility] [place] [facility] [address] [facility] [id number] [place] [address]- 9323 13 Mar, 2013 [facility] [place] [facility] [address] [facility] [id number], [place] [address]- 7729 13 Mar, 2013 [facility] [place] [facility] [address] [facility] [id number], [place] [address]- 3044 Mar, 2013 [facility] [place] [facility] [address] [facility] [id number] [place] [address]- 7832 Mar, [facility] [place] [facility] [address] [facility] [id number] [place] [address]- 8278 Mar, [facility] [place] [facility] [address] [facility] [id number], [place] [address]- 2888 Mar, 2013 [facility] [place] [facility] [address] [facility] [id number], [place] [address]- 3335 Mar, [facility] [address] [id number] [place] [address] Mar, [facility] [place] [facility] [address] [id number] [place] [address] Feb, [facility] [place] [facility] [address] [id number] [place] [address] Feb, [facility] [place] [facility] [address] [id number] [place] [address] Feb, [facility] [place] [facility] [address] [id number] [place] [address] Feb, [facility] [place] [facility] [address] [id number] [place] [address] Feb, [facility] [address] [id number] [place] [address] Feb, [facility] [place] [facility] [address] [id number] [place] [address] Feb, [facility] [place] [facility] [address] [id number] [place] [address] 1995 Feb, [facility] [place] [facility] [address] [id number] [place] [address] Feb, [facility] [place] [facility] [address] [id number] [place] [address] Feb, [facility] [place] [facility] [address] [id number], [place] [address] Feb, [facility] [place] [facility] [address] [id number] [place] [address] Feb, [facility] [place] [facility] [address] [id number] [place] [address] Feb, [facility] [place] [facility] [address] [id number], [place] [address] Feb, [facility] [place] [facility] [address] [id number] [place] [address] 16 Feb, 2013 [facility] [place] [facility] [address] [id number] [place] [address] 15 Feb, 2013 [facility] [place] [facility] [address] [id number] [place] [address] 15 Feb, 2013 [facility] [place] [facility] [address] [id number] [place] [address] Feb, [facility] [place] [facility] [address] [id number] [place] [address] Feb, [facility] [place] [facility] [address] [id number] [place] [address] Feb, [facility] [place] [facility] [address] [id number] [place] [address]- [address] Feb, [facility] [place] [facility] [address] [id number] [place] [address] Feb, [facility] [place] [facility] [address] [id number] [place] [address] Feb, [facility] [place] [facility] [address] [id number] [place] [address] Jan, [facility] [place] [facility] [address] [id number] [place] [address] 24 Jan, 2013 [facility] [place] [facility] [address] [id number] [place] [address] Jan, [facility] [place] [facility] [address] [id number] [place] [address] 18 Jan, 2013 [facility] [place] [facility] [address] [id number] [place] [address] Jan, [facility] [place] [facility] [address] [id number] [place] [address] 18 Jan, 2013 [facility] [place] [facility] [address] [id number] [place] [address] 18 Jan, 2013 [facility] [address] [id number] [place] [address] Jan, [facility] [place] [facility] [address] [id number] [place] [address] Jan, [facility] [place] [facility] [address] [facility] [id number] [place] [address] Jan, [facility] [place] [facility] [address] [id number], [place] [address] Jan, [facility] [place] [facility] [address] [id number] [place] [address] Jan, [facility] [place] [facility] [address] [id number], [place] [address] Jan, [facility] [place] [facility] [address] [id number], [place] [address] Dec, [facility] [place] [facility] [address] [id number], [place] [address] Dec, [facility] [place] [facility] [address] [id number], [place] [address] Dec, [facility] [place] [facility] [address] [id number], [place] [address] Dec, [facility] [place] [facility] [address] [id number], [place] [address] 15 Dec, 2012 [facility] [place] [facility] [address] [id number], [place] [address] 15 Dec, 2012 [facility] [place] [facility] [address] [id number], [place] [address] Nov, [facility] [place] [facility] [address] [id number], [place] [address] Nov, [facility] [place] [facility] [address] [id number], [place] [address] Nov, [facility] [place] [facility] [id number] [address] Nov, [facility] [id number] [address] Nov, [facility] [id number], [place] [address] Nov, [facility] [id number], [place] [address] Oct, [facility] [id number], [place] [address] Oct, [facility] [id number] [place] [address] Oct, [facility] [id number], [place] [address] Oct, [facility] [address] [id number], [place] [address] Oct, [facility] [id number], [place] [address] Oct, [facility] [id number], [place] [address] Oct, IMMUNIZATIONS No Known Immunizations SOCIAL HISTORY Never Assessed REASON FOR VISIT f/u Carlene PLAN OF CARE Activity Details Follow Up 6 Weeks Reason: VITAL SIGNS Height 59 in 2017-05-01 Weight 147.3 lbs 2017-05-01 Heart Rate 104 bpm 2017-05-01 Respiratory Rate 20 2017-05-01 BMI 29.75 kg/m2 2017-05-01 Blood pressure systolic 142 mmHg 2017-05-01 Blood pressure diastolic 84 mmHg 2017-05-01 MEDICATIONS Medication Instructions Dosage Frequency Start Date End Date Duration Status Diflucan 150 MG Orally Once a day 1 tablet 24h Mar, 1 dose Not -Taking Protonix 40 MG Orally Once a day 1 tablet 24h Active Ritalin LA 30 MG Orally Once a day 1 capsule in the morning 24h Apr, May, 28 days Active Venlafaxine HCl ER 150 mg Orally Once a day 1 capsule with food 24h 30 days Active Promethazine HCl 25 MG Orally every 4 hrs 1 tablet as needed 4h Not-Taking Ondansetron 4 MG Orally every 8 hrs prn 1 tablet on the tongue and allow to dissolve Dec, 14 days Not-Taking HydrOXYzine HCl 25 MG Orally three times a day as needed for anxiety 1 tablet as needed Jan, 30 days Active RESULTS No Results PROCEDURES [...]
--- OUTSIDE RECORDS SUMMARY | 2017-09-10 18:12 | XMS REPORT ---
Author Author HARIKA RODRIGUEZ [facility] Address [address] [place] [address] Care Team Providers Care Senior Materials Scientist Name Role Phone JENNIFERHARIKA Unavailable PROBLEMS Type Condition ICD9-CM Code [id number] Code Onset Dates Condition Status SNOMED Code Problem Anxiety state F41.1 Active 306720316 Problem Depressive disorder, not elsewhere classified F32.9 Active 39443222 Problem ADHD (attention deficit hyperactivity disorder), combined type F90.2 Active 90895248 Problem Irritable bowel syndrome with diarrhea K58.0 Active 686377079 Problem Plantar wart of right foot B07.0 Active [id number] Problem Slow transit constipation K59.01 Active 59517129 Problem Rhinitis, unspecified type J31.0 Active 60920445 Problem Anxiety disorder, unspecified type F41.9 Active 967447154 Problem Major depressive disorder, single episode, mild F32.0 Active 31204029 ALLERGIES No Information ENCOUNTERS Encounter Location Date Diagnosis [place] [id number] [place] [address] 91135- 6308 Aug, ADHD (attention deficit hyperactivity disorder), combined type F90.2 [facility] [address] [place] [address] 97860- 4075 Jul, ADHD (attention deficit hyperactivity disorder), combined type F90.2 [facility] [address] [address] June, ADHD (attention deficit hyperactivity disorder), combined type F90.2 ; Major depressive disorder, single episode, mild F32.0 and Anxiety disorder, unspecified type F41.9 [facility] [address] [address] June, [facility] [id number] [address] 6245 June, ADHD (attention deficit hyperactivity disorder), combined type F90.2 [facility] [id number] [address] 3[address] May, [facility] [id number] [address] 3541 May, ADHD (attention deficit hyperactivity disorder), combined type F90.2 ; Major depressive disorder, single episode, mild F32.0 and Anxiety disorder, unspecified type F41.9 [facility] [address] [address] 0[address] May, Anxiety disorder, unspecified type F41.9 [facility] [id number] [address] 9529 Apr, [facility] [id number] [place] [address] 87320- 1819 Apr, Anxiety disorder, unspecified type F41.9 [facility] [address] [address] 9571 Apr, Anxiety disorder, unspecified type F41.9 ; Major depressive disorder, single episode, mild F32.0 and ADHD (attention deficit hyperactivity disorder), combined type F90.2 [facility] [address] [address] 9[address] Apr, [facility] [address] [address]- 8254 Apr, ADHD (attention deficit hyperactivity disorder), combined type F90.2 ; Anxiety state F41.1 ; Depressive disorder, not elsewhere classified F32.9 ; Major depressive disorder, single episode, mild F32.0 and Anxiety disorder, unspecified type F41.9 [facility] [address] [address]- 8191 Mar, ADHD (attention deficit hyperactivity disorder), combined type F90.2 [facility] [id number] [place] [address] 36113- 9971 20 Mar, 2017 Nausea R11.0 [facility] [address] [address]- 6287 13 Mar, 2017 Screening for STD sexually transmitted disease Z11.3 ; Vaginal candidiasis B37.3 and Irritable bowel syndrome with diarrhea K58.0 [place] [address] [id number] [place] [address] 29197- 9236 04 Mar, 2017 [facility] [id number] [place] [address] 75964- 0372 Feb, ADHD (attention deficit hyperactivity disorder), combined type F90.2 [place] [id number] [place] [address] 15854- 8808 Feb, Depressive disorder, not elsewhere classified F32.9 ; Anxiety state F41.1 and ADHD (attention deficit hyperactivity disorder), combined type F90.2 [place] [id number] [place] [address] 78780- 5076 Feb, Depressive disorder, not elsewhere classified F32.9 ; Anxiety state F41.1 and ADHD (attention deficit hyperactivity disorder), combined type F90.2 [place] [address] [id number] [place] [address] 47091- 8970 Feb, ADHD (attention deficit hyperactivity disorder), combined type F90.2 [facility] [address] [place] [address] 80698 -5476 Jan, Other viral agents as the cause of diseases classified elsewhere B97.89 and Acute upper respiratory infection, unspecified J06.9 [place] [address] [place] [address] [id number] [place] [address] 38196- 2130 Jan, ADHD (attention deficit hyperactivity disorder), combined type F90.2 ; Major depressive disorder, single episode, mild F32.0 and Anxiety disorder, unspecified type F41.9 [place] [id number] [place] [address] 02342- 9007 Jan, [place] [address] [address]- 9348 Jan, ADHD (attention deficit hyperactivity disorder), combined type F90.2 ; Major depressive disorder, single episode, mild F32.0 and Anxiety disorder, unspecified type F41.9 [place] [address] [id number] [place] [address] 38221- 3555 Dec, Irritable bowel syndrome with diarrhea K58.0 and Lower abdominal pain R10.30 [place] [address] [id number] [place] [address] 98901- 5665 Dec, Hospital discharge follow-up Z09 ; Mesenteric adenitis I88.0 ; IBD (inflammatory bowel disease) K52.9 and Nausea R11.0 [place] [address] [id number] [place] [address] 75661- 1689 Nov, ADHD (attention deficit hyperactivity disorder), combined type F90.2 ; Major depressive disorder, single episode, mild F32.0 and Anxiety disorder, unspecified type F41.9 [place] [address] [place] [address] 94158- 7862 Nov, Anxiety state F41.1 ; ADHD (attention deficit hyperactivity disorder), combined type F90.2 ; Major depressive disorder, single episode, mild F32.0 and Anxiety disorder, unspecified type F41.9 [place] [address] [address]- 3597 Oct, Anxiety state F41.1 ; ADHD (attention deficit hyperactivity disorder), combined type F90.2 ; Major depressive disorder, single episode, mild F32.0 and Anxiety disorder, unspecified type F41.9 [place] [address] [id number] [place] [address] 91858- 0241 Oct, ADHD (attention deficit hyperactivity disorder), combined type F90.2 ; Major depressive disorder, single episode, mild F32.0 and Anxiety disorder, unspecified type F41.9 [place] [address] [id number] [place] [address] 57137- 6041 Oct, Major depressive disorder, single episode, mild F32.0 ; Anxiety state F41.1 ; ADHD (attention deficit hyperactivity disorder), combined type F90.2 and Depressive disorder, not elsewhere classified F32.9 [facility] [id number] [place] [address] 23078 -2932 16 Oct, 2016 [facility] [id number] [place] [address] 10921 -9885 Oct, Cellulitis L03.90 and Plantar wart of right foot B07.0 [facility] [id number] [place] [address] 09422- 0191 Aug, ADHD (attention deficit hyperactivity disorder), combined type F90.2 ; Major depressive disorder, single episode, mild F32.0 and Anxiety disorder, unspecified type F41.9 [facility] [id number] [place] [address] 04556- 0277 Aug, [facility] [id number] [place] [address] 00281- 5355 Jul, ADHD (attention deficit hyperactivity disorder), combined type F90.2 [place] [address] [place] [address] [place] [address] 16804- 9435 Jul, Mesenteric adenitis I88.0 [facility] [id number] [place] [address] 42159- 6407 June, [facility] [id number] [place] [address] 25814 -9687 June, Lower abdominal pain R10.30 [place] [address] [place] [address] [id number] [place] [address] 14511- 1391 June, [facility] [id number] [place] [address] 08372- 5424 June, ADHD (attention deficit hyperactivity disorder), combined type F90.2 and Major depressive disorder, single episode, mild F32.0 [place] [address] [place] [address] [place] [address]- 2658 May, [facility] [id number] [place] [address] 21140- 5393 May, ADHD (attention deficit hyperactivity disorder), combined type F90.2 and Major depressive disorder, single episode, mild F32.0 [facility] [id number] [place] [address] 96497 -3005 Apr, Abdominal pain R10.9 and Gastroenteritis and colitis, viral A08.4 [facility] [address] [id number] [place] [address] 19945- 4390 Apr, [facility] [address] [place] [address] 05160 -4116 Mar, Acute urticaria L50.8 [facility] [id number] [place] [address] 50507- 6959 Mar, [facility] [id number] [place] [address] 13150- 9755 Feb, [facility] [id number] [place] [address] 27120 -8397 Feb, Gastroenteritis K52.9 [facility] [address] [place] [address] 62360- 1681 Feb, Irritant contact dermatitis due to cosmetics L24.3 [place] [address] [address] [place] [address] 52814- 4293 Jan, [facility] [id number] [place] [address] 21886- 3909 Jan, [place] [address] [place] [address] 15928- 9452 Jan, ADHD (attention deficit hyperactivity disorder), combined type F90.2 and Major depressive disorder, single episode, mild F32.0 [facility] [id number] [place] [address] 03365 -2058 Dec, Flexural eczema L20.82 [facility] [address] [place] [address] 40042- 9643 Dec, Encounter for test Z32.00 [facility] [id number] [place] [address] 47937- 3464 Dec, [facility] [address] 57435- 7662 Dec, [facility] [address] 89970- 4958 Dec, [facility] [address] 89833 -9045 Nov, Sore throat J02.9 and Pharyngitis, unspecified etiology J02.9 [facility] [address] 11678- 3991 Nov, [facility] [address] 16990- 2279 Nov, [facility] [address] 25222- 2776 Nov, Generalized abdominal pain R10.84 and Slow transit constipation K59.01 [facility] [place] [facility] [id number] [place] [address] [id number] Nov, 2015 Pharyngitis, unspecified etiology J02.9 and Rhinitis, unspecified type J31.0 [facility] [address] [place] [address] 46777- 9522 Oct, Depressive disorder, not elsewhere classified F32.9 and ADHD (attention deficit hyperactivity disorder), combined type F90.2 [facility] [address] 30506- 0687 Oct, [facility] [address] 84540- 2393 Oct, [facility] [address] [place] [address] -[address]91 20 Oct, 2015 Strep throat J02.0 [facility] [id number] [place] [address] 26381- 0722 16 Oct, 2015 [facility] [address] [place] [address] 01567- 6603 Oct, Well woman exam with routine gynecological exam Z01.419 and Screening for STD sexually transmitted disease Z11.3 [facility] [address] [place] [address] 99002- 3358 Sep, ADHD (attention deficit hyperactivity disorder), combined type F90.2 ; Anxiety state F41.1 and Depressive disorder, not elsewhere classified F32.9 [facility] [address] [place] [address] 55176- 7662 Sep, ADHD (attention deficit hyperactivity disorder), combined type F90.2 and Depressive disorder, not elsewhere classified F32.9 [place] [address] [place] [address] 01585- 2247 Aug, [facility] [address] [place] [address] 87765- 6348 Aug, ADHD (attention deficit hyperactivity disorder), combined type F90.2 and Depressive disorder, not elsewhere classified F32.9 [facility] [address] [address]- 0237 Aug, ADHD (attention deficit hyperactivity disorder), combined type F90.2 ; Anxiety state F41.1 and Depressive disorder, not elsewhere classified F32.9 [facility] [address] [address]- 4647 Aug, [facility] [id number] [place] [address] 48846- 6545 Aug, [facility] [address] [address]- 1367 Jul, ADHD (attention deficit hyperactivity disorder), combined type F90.2 ; Depressive disorder, not elsewhere classified F32.9 and Anxiety state F41.1 [facility] [address] [address]- 4078 Jul, [facility] [id number] [place] [address] 16311- 1392 Jul, ADHD (attention deficit hyperactivity disorder), combined type F90.2 ; Anxiety state F41.1 and Depressive disorder, not elsewhere classified F32.9 [facility] [id number] [place] [address] 84911- 1493 June, [facility] [address] [place] [address] [id number] June, Constipation K59.00 [facility] [address] [place] [address] 89476- 2966 May, Constipation K59.00 [facility] [address] [place] [address] 43379 -9286 May, Irritable bowel syndrome with diarrhea K58.0 [facility] [address] [place] [address] 33192- 1951 May, [facility] [address] [place] [address] 01476- 9534 May, [facility] [address] [place] [address] 67513- 6626 May, [facility] [address] [place] [address] 48917- 6285 May, [facility] [address] [place] [address] 29659- 2604 Jan, [facility] [id number] [place] [address] 51958- 4602 Jan, [facility] [address] [place] [address] 01592- 7376 Jan, [facility] [address] [place] [address] 13302- 7188 Jan, [facility] [place] [facility] [address] [id number] [place] 5306 Jan, [facility] [place] [facility] [address] [id number] [place] [address]- 4672 Jan, [facility] [place] [facility] [address] [id number] [place] [address]- 0250 Nov, [facility] [place] [facility] [address] [id number] [place] [address]- 4014 Nov, [facility] [place] [facility] [address] [id number] [place] [address]- 6220 Oct, [facility] [place] [facility] [address] [id number] [place] [address]- 4620 Oct, [facility] [place] [facility] [address] [id number] [place] [address]- 2488 Sep, [facility] [place] [facility] [address] [id number] [place] [address]- 8539 Sep, [facility] [place] [facility] [address] [id number] [place] [address]- 9757 Aug, [facility] [place] [facility] [address] [id number] [place] [address]- 2843 Aug, [facility] [place] [facility] [address] [id number] [place] [address]- 6094 Aug, [facility] [place] [facility] [address] [id number] [place] [address]- 0885 Aug, [facility] [place] [facility] [address] [id number] [place]- 5076 Aug, [facility] [place] [facility] [address] [id number] [place] 0520 Aug, [facility] [place] [facility] [address] [id number] [place] 9909 Aug, [facility] [place] [facility] [address] [id number] [place] [address]- 5442 Aug, [facility] [place] [facility] [address] [id number] [place] [address]- 0610 Jul, [facility] [place] [facility] [address] [id number] [place] [address]- 4389 Jul, [facility] [place] [facility] [address] [id number] [place] [address]- 4598 Jul, [facility] [place] [facility] [address] [id number] [place] [address]- 4096 Jul, [facility] [place] [facility] [address] [id number] [place] [address]- 2210 Jul, [facility] [place] [facility] [address] [id number] [place] [address]- 7991 Jul, [facility] [place] [facility] [address] [id number] [place] [address]- 8956 Jul, [facility] [place] [facility] [address] [id number] [place] [address]- 2119 Jul, [facility] [place] [facility] [address] [id number] [place] [address]- 8696 Jul, [facility] [place] [facility] [address] [id number] [place] [address]- 2359 June, [facility] [place] [facility] [address] [id number] [place] [address]- 5486 June, [facility] [place] [facility] [address] [id number] [place] [address]- 5066 May, [facility] [place] [facility] [address] [id number] [place] [address]- 0276 May, [facility] [place] [facility] [address] [id number] [place] [address]- 4934 May, [facility] [place] [facility] [address] [id number] [place] [address]- 2726 May, [facility] [place] [facility] [address] [id number] [place] [address]- 2110 May, [facility] [place] [facility] [address] [id number] [place] [address]- 7382 May, [facility] [place] [facility] [address] [id number] [place] [address]- 7514 May, [facility] [place] [facility] [address] [id number] [place] [address]- 6329 May, [facility] [place] [facility] [address] [id number] [place] [address]- 0311 May, [facility] [place] [facility] [address] [id number] [place] [address]- 4642 May, [facility] [place] [facility] [address] [id number] [place] [address]- 2411 May, [facility] [place] [facility] [address] [id number] [place] [address]- 9999 May, [facility] [place] [facility] [address] [id number] [place] [address]- 2261 Apr, [facility] [place] [facility] [address] [id number] [place] [address]- 3106 Apr, [facility] [place] [facility] [address] [id number] [place] [address]- 8094 Apr, [facility] [place] [facility] [address] [id number] [place] [address]- 6260 Apr, [facility] [place] [facility] [address] [id number] [place] [address]- 7989 Mar, [facility] [place] [facility] [address] [id number] [place] [address]- 8366 Mar, [facility] [place] [facility] [address] [id number] [place] [address]- 2766 Mar, [facility] [place] [facility] [address] [id number] [place] [address]- 2793 28 Mar, 2013 [facility] [place] [facility] [address] [id number] [place] [address]- 6595 Mar, 2013 [facility] [place] [facility] [address] [id number] [place] [address]- 8726 27 Mar, 2013 [facility] [place] [facility] [address] [facility] [id number] [place] [address]- 4360 19 Mar, 2013 [facility] [place] [facility] [address] [id number] [place] [address]- 2311 Mar, [facility] [place] [facility] [address] [facility] [id number] [place] [address]- 1390 Mar, 2013 [facility] [place] [facility] [address] [facility] [id number] [place] [address]- 0439 Mar, 2013 [facility] [place] [facility] [address] [facility] [id number] [place] [address]- 2431 14 Mar, 2013 [facility] [place] [facility] [address] [facility] [id number] [place] [address] 14 Mar, 2013 [facility] [place] [facility] [address] [facility] [id number] [place] [address] 13 Mar, 2013 [facility] [place] [facility] [address] [facility] [id number] [place] [address] 13 Mar, 2013 [facility] [place] [facility] [address] [facility] [id number] [place] [address] Mar, 2013 [facility] [place] [facility] [address] [facility] [id number] [place] [address] Mar, [facility] [place] [facility] [address] [facility] [id number] [place] [address] Mar, [facility] [place] [facility] [address] [facility] [id number] [place] [address] Mar, 2013 [facility] [place] [facility] [address] [facility] [id number] [place] [address] Mar, [facility] [address] [id number] [place] [address] Mar, [facility] [place] [facility] [address] [id number] [place] [address] Feb, [facility] [place] [facility] [address] [id number] [place] [address] Feb, [facility] [place] [facility] [address] [id number] [place] [address] Feb, [facility] [place] [facility] [address] [id number] [place] [address] Feb, [facility] [place] [facility] [address] [id number] [place] [address] Feb, [facility] [address] [id number] [place] [address] Feb, [facility] [place] [facility] [address] [id number] [place] [address] Feb, [facility] [place] [facility] [address] [id number] [place] [address] Feb, [facility] [place] [facility] [address] [id number] [place] [address] Feb, [facility] [place] [facility] [address] [id number] [place] [address] Feb, [facility] [place] [facility] [address] [id number] [place] [address] Feb, [facility] [place] [facility] [address] [id number] [place] [address] Feb, [facility] [place] [facility] [address] [id number] [place] [address] Feb, [facility] [place] [facility] [address] [id number] [place] [address] Feb, [facility] [place] [facility] [address] [id number] [place] [address] 16 Feb, 2013 [facility] [place] [facility] [address] [id number] [place] [address] 15 Feb, 2013 [facility] [place] [facility] [address] [id number] [place] [address] 15 Feb, 2013 [facility] [place] [facility] [address] [address] [id number] [place] [address] Feb, [facility] [place] [facility] [address] [id number] [place] [address] Feb, [facility] [place] [facility] [address] [id number] [place] [address] Feb, [facility] [place] [facility] [address] [id number] [place] [address] Feb, [facility] [place] [facility] [address] [id number] [place] [address] Feb, [facility] [place] [facility] [address] [id number] [place] [address] Feb, [facility] [place] [facility] [address] [id number] [place] [address] Jan, [facility] [place] [facility] [address] [id number] [place] [address] 24 Jan, 2013 [facility] [place] [facility] [address] [id number] [place] [address] Jan, [facility] [place] [facility] [address] [id number] [place] [address] 18 Jan, 2013 [facility] [place] [facility] [address] [id number] [place] [address] Jan, [facility] [place] [facility] [address] [id number] [place] [address] 18 Jan, 2013 [facility] [place] [facility] [address] [id number] [place] [address] 18 Jan, 2013 [facility] [address] [id number] [place] [address] Jan, [facility] [place] [facility] [address] [id number] [place] [address] Jan, [facility] [place] [facility] [address] [facility] [id number] [place] [address] Jan, [facility] [place] [facility] [address] [id number] [address] Jan, [facility] [place] [facility] [address] [id number] [place] [address] Jan, [facility] [place] [facility] [address] [id number] [place] [address] Jan, [facility] [place] [facility] [address] [id number] [place] [address] Dec, [facility] [place] [facility] [address] [id number] [place] [address] Dec, [facility] [place] [facility] [address] [id number] [place] [address] Dec, [facility] [place] [facility] [address] [id number] [place] [address] Dec, [facility] [place] [facility] [address] [id number] [place] [address] 15 Dec, 2012 [facility] [place] [facility] [address] [id number] [place] [address] 15 Dec, 2012 [facility] [place] [facility] [address] [id number] [place] [address] Nov, [facility] [place] [facility] [address] [id number] [place] [address] Nov, [facility] [place] [facility] [address] [id number] [place] [address] Nov, [facility] [place] [facility] [address] [id number] [address] Nov, [facility] [id number] [address] Nov, [facility] [id number] [address] Nov, [facility] [id number] [address] 28 Oct, 2012 [facility] [id number] [address] 27 Oct, 2012 [facility] [id number] [address] 26 Oct, 2012 [facility] [id number] [address] Oct, [facility] [id number] [address] Oct, [facility] [id number] [address] 18 Oct, 2012 [facility] [id number] [address] Oct, IMMUNIZATIONS No Known Immunizations SOCIAL HISTORY Never Assessed REASON FOR VISIT Requesting return call PLAN OF CARE VITAL SIGNS MEDICATIONS Unknown [...]
--- OUTSIDE RECORDS SUMMARY | 2017-09-10 18:12 | XMS REPORT ---
Author Author VESTA JOSE Organization 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 Name Role Phone HORACIOGURU CHAMPAGNEA Unavailable PROBLEMS Type Condition ICD9-CM Code RRD09-EL Code Onset Dates Condition Status SNOMED Code Problem Anxiety state F41.1 Active 831916939 Problem Depressive disorder, not elsewhere classified F32.9 Active 66852402 Problem ADHD (attention deficit hyperactivity disorder), combined type F90.2 Active 39109795 Problem Irritable bowel syndrome with diarrhea K58.0 Active 678169441 Problem Plantar wart of right foot B07.0 Active 88984150100741999 Problem Slow transit constipation K59.01 Active 79467400 Problem Rhinitis, unspecified type J31.0 Active 95577450 Problem Anxiety disorder, unspecified type F41.9 Active 395346912 Problem Major depressive disorder, single episode, mild F32.0 Active 11365214 ALLERGIES No Information ENCOUNTERS Encounter Location Date Diagnosis [place] [id number] [place] [address] 99573- 3324 Aug, ADHD (attention deficit hyperactivity disorder), combined type F90.2 [facility] [id number] [place] [address] 00193- 1509 Jul, ADHD (attention deficit hyperactivity disorder), combined type F90.2 [facility] [address], [place] [address] June, ADHD (attention deficit hyperactivity disorder), combined type F90.2 ; Major depressive disorder, single episode, mild F32.0 and Anxiety disorder, unspecified type F41.9 [facility] [address], [place] [address] June, [facility] [id number] [address] 0980 June, ADHD (attention deficit hyperactivity disorder), combined type F90.2 [facility] [id number] [address] 5[address] May, [facility] [address], [place] [address] 79[address] May, ADHD (attention deficit hyperactivity disorder), combined type F90.2 ; Major depressive disorder, single episode, mild F32.0 and Anxiety disorder, unspecified type F41.9 [facility] [id number] [address] May, Anxiety disorder, unspecified type F41.9 [facility] [id number] [address] Apr, [facility] [id number] [place] [address] 60238- 2840 Apr, Anxiety disorder, unspecified type F41.9 [facility] [address], [place] [address] 9227 Apr, Anxiety disorder, unspecified type F41.9 ; Major depressive disorder, single episode, mild F32.0 and ADHD (attention deficit hyperactivity disorder), combined type F90.2 [facility] [address], [place] [address] Apr, [facility] [address], [place] [address] 1501 Apr, ADHD (attention deficit hyperactivity disorder), combined type F90.2 ; Anxiety state F41.1 ; Depressive disorder, not elsewhere classified F32.9 ; Major depressive disorder, single episode, mild F32.0 and Anxiety disorder, unspecified type F41.9 [facility] [address], [place] [address] 6[address] Mar, ADHD (attention deficit hyperactivity disorder), combined type F90.2 [facility] [id number] [place] [address] 32624- 3253 20 Mar, [address] [facility] [address] [address]- 5866 13 Mar, 2017 Screening for STD sexually transmitted disease Z11.3 ; Vaginal candidiasis B37.3 and Irritable bowel syndrome with diarrhea K58.0 [place] [id number] [place] [address] 51945- 1379 04 Mar, 2017 [facility] [id number] [place] [address] 23005- 8429 Feb, ADHD (attention deficit hyperactivity disorder), combined type F90.2 [place] [id number] [place] [address] 22855- 2742 Feb, Depressive disorder, not elsewhere classified F32.9 ; Anxiety state F41.1 and ADHD (attention deficit hyperactivity disorder), combined type F90.2 [place] [id number] [place] [address] 24714- 9987 Feb, Depressive disorder, not elsewhere classified F32.9 ; Anxiety state F41.1 and ADHD (attention deficit hyperactivity disorder), combined type F90.2 [place] [id number] [place] [address] 26713- 3770 Feb, ADHD (attention deficit hyperactivity disorder), combined type F90.2 [facility] [id number] [place] [address] 14940 -3819 Jan, Other viral agents as the cause of diseases classified elsewhere B97.89 and Acute upper respiratory infection, unspecified J06.9 [facility] [address] [id number] [place] [address] 07917- 8528 Jan, ADHD (attention deficit hyperactivity disorder), combined type F90.2 ; Major depressive disorder, single episode, mild F32.0 and Anxiety disorder, unspecified type F41.9 [place] [address] [id number] [place] [address] 32248- 6770 Jan, [place] [address], [place] [address]- 1715 Jan, ADHD (attention deficit hyperactivity disorder), combined type F90.2 ; Major depressive disorder, single episode, mild F32.0 and Anxiety disorder, unspecified type F41.9 [place] [address] [id number] [place] [address] 78519- 8589 Dec, Irritable bowel syndrome with diarrhea K58.0 and Lower abdominal pain R10.30 [place] [address] [id number] [place] [address] 63453- 4974 Dec, Hospital discharge follow-up Z09 ; Mesenteric adenitis I88.0 ; IBD (inflammatory bowel disease) K52.9 and Nausea R11.0 [place] [address] [id number] [place] [address] 50912- 3091 Nov, ADHD (attention deficit hyperactivity disorder), combined type F90.2 ; Major depressive disorder, single episode, mild F32.0 and Anxiety disorder, unspecified type F41.9 [place] [address] [id number] [place] [address] 19949- 8433 Nov, Anxiety state F41.1 ; ADHD (attention deficit hyperactivity disorder), combined type F90.2 ; Major depressive disorder, single episode, mild F32.0 and Anxiety disorder, unspecified type F41.9 [place] [id number] [place] [address] 93575- 8472 Oct, Anxiety state F41.1 ; ADHD (attention deficit hyperactivity disorder), combined type F90.2 ; Major depressive disorder, single episode, mild F32.0 and Anxiety disorder, unspecified type F41.9 [place] [address] [place] [address] [id number] [place] [address] 97450- 9271 Oct, ADHD (attention deficit hyperactivity disorder), combined type F90.2 ; Major depressive disorder, single episode, mild F32.0 and Anxiety disorder, unspecified type F41.9 [place] [address] [place] [address] [id number] [place] [address] 12108- 2237 Oct, Major depressive disorder, single episode, mild F32.0 ; Anxiety state F41.1 ; ADHD (attention deficit hyperactivity disorder), combined type F90.2 and Depressive disorder, not elsewhere classified F32.9 [facility] [id number] [place] [address] 46033 -6676 16 Oct, 2016 [facility] [id number] [place] [address] 11649 -0562 Oct, Cellulitis L03.90 and Plantar wart of right foot B07.0 [facility] [address] [id number] [place] [address] 54416- 8389 Aug, ADHD (attention deficit hyperactivity disorder), combined type F90.2 ; Major depressive disorder, single episode, mild F32.0 and Anxiety disorder, unspecified type F41.9 [facility] [id number] [place] [address] 35930- 1012 Aug, [facility] [id number] [place] [address] 57094- 4522 Jul, ADHD (attention deficit hyperactivity disorder), combined type F90.2 [place] [address] [id number] [place] [address] 92924- 4299 Jul, Mesenteric adenitis I88.0 [facility] [id number] [place] [address] 08532- 2180 June, [facility] [id number] [place] [address] 19996 -2049 June, Lower abdominal pain R10.30 [facility] [address] [id number] [place] [address] 02658- 0475 June, [facility] [address] [id number] [place] [address] 59414- 0679 June, ADHD (attention deficit hyperactivity disorder), combined type F90.2 and Major depressive disorder, single episode, mild F32.0 [place] [address] [place] [id number] [place] [address] 03223- 4373 May, [facility] [id number] [place] [address] 49840- 4250 May, ADHD (attention deficit hyperactivity disorder), combined type F90.2 and Major depressive disorder, single episode, mild F32.0 [facility] [id number] [place] [address] 89591 -8744 Apr, Abdominal pain R10.9 and Gastroenteritis and colitis, viral A08.4 [place] [address] [id number] [place] [address] 71922- 4443 Apr, [facility] [address] 88262 -4410 Mar, Acute urticaria L50.8 [place] [address] [place] [id number] [place] [address] 05433- 8005 Mar, [facility] [address] [place] [id number] [place] [address] 02695- 6332 Feb, [facility] [id number] [place] [address] 43588 -2094 Feb, Gastroenteritis K52.9 [facility] [address] [place] [id number] [place] [address] 63872- 7340 Feb, Irritant contact dermatitis due to cosmetics L24.3 [place] [address] [id number] [place] [address] 24493- 3620 Jan, [place] [address] [id number] [place] [address] 44868- 9961 Jan, [place] [address] [id number] [place] [address] 05292- 1905 Jan, ADHD (attention deficit hyperactivity disorder), combined type F90.2 and Major depressive disorder, single episode, mild F32.0 [facility] [id number] [place] [address] 86432 -5273 Dec, Flexural eczema L20.82 [facility] [id number] [place] [address] 25196- 1538 Dec, Encounter for test Z32.00 [facility] [id number] [place] [address] 59733- 4125 Dec, [facility] [id number] [place] [address] 44655- 9255 Dec, [facility] [address] 32368- 7188 Dec, [facility] [address] 70914 -4664 Nov, Sore throat J02.9 and Pharyngitis, unspecified etiology J02.9 [facility] [address] 68856- 1005 Nov, [facility] [address] 53140- 4843 Nov, [facility] [address] 82960- 2672 Nov, Generalized abdominal pain R10.84 and Slow transit constipation K59.01 [facility] [place] [id number] [place] [address] [id number] 05 Nov, 2015 Pharyngitis, unspecified etiology J02.9 and Rhinitis, unspecified type J31.0 [facility] [id number] [place] [address] 87276- 5751 Oct, Depressive disorder, not elsewhere classified F32.9 and ADHD (attention deficit hyperactivity disorder), combined type F90.2 [facility] [address] 85067- 7225 Oct, [facility] [id number] [place] [address] 48978- 6027 Oct, [facility] [address] [place] [address] -0285 20 Oct, [address] [facility] [id number] [place] [address] 68060- 8090 Oct, [facility] [address] [id number] [place] [address] 00239- 9756 Oct, Well woman exam with routine gynecological exam Z01.419 and Screening for STD sexually transmitted disease Z11.3 [place] [address] [id number] [place] [address] 11317- 4898 Sep, ADHD (attention deficit hyperactivity disorder), combined type F90.2 ; Anxiety state F41.1 and Depressive disorder, not elsewhere classified F32.9 [place] [address] [id number] [place] [address] 56279- 9871 Sep, ADHD (attention deficit hyperactivity disorder), combined type F90.2 and Depressive disorder, not elsewhere classified F32.9 [place] [address] [id number] [place] [address] 77547- 9631 Aug, [facility] [id number] [place] [address] 86587- 3879 Aug, ADHD (attention deficit hyperactivity disorder), combined type F90.2 and Depressive disorder, not elsewhere classified F32.9 [place] [id number] [place] [address] 56850- 7216 Aug, ADHD (attention deficit hyperactivity disorder), combined type F90.2 ; Anxiety state F41.1 and Depressive disorder, not elsewhere classified F32.9 [facility] [address], [place] [address]- 4925 Aug, [facility] [id number] [place] [address] 32641- 6736 Aug, [facility] [id number] [place] [address] 34416- 2112 Jul, ADHD (attention deficit hyperactivity disorder), combined type F90.2 ; Depressive disorder, not elsewhere classified F32.9 and Anxiety state F41.1 [facility] [id number] [place] [address] 56637- 0721 Jul, [facility] [id number] [place] [address] 52758- 5180 Jul, ADHD (attention deficit hyperactivity disorder), combined type F90.2 ; Anxiety state F41.1 and Depressive disorder, not elsewhere classified F32.9 [facility] [id number] [place] [address] 13077- 1183 June, [facility] [place] [id number] [place] [address] [id number] June, Constipation K59.00 [facility] [id number] [place] [address] 35231- 6971 May, Constipation K59.00 [facility] [id number] [place] [address] 46853 -8907 May, Irritable bowel syndrome with diarrhea K58.0 [facility] [id number] [place] [address] 17934- 3419 May, [facility] [id number] [place] [address] 74261- 6761 May, [facility] [id number] [place] [address] 73237- 8824 May, [facility] [id number] [place] [address] 57657- 2782 May, [facility] [id number] [place] [address] 34782- 7606 Jan, [facility] [id number] [place] [address] 71816- 5155 Jan, [facility] [id number] [place] [address] 71792- 6694 Jan, [facility] [id number] [place] [address] 70422- 2546 Jan, [facility] [place] [facility] [address] [id number] [place] 6335 Jan, [facility] [place] [facility] [address] [id number] [place] [address]- 6283 Jan, [facility] [place] [facility] [address] [id number] [place] [address]- 7591 Nov, [facility] [place] [facility] [address] [id number] [place] [address]- 4928 Nov, [facility] [place] [facility] [address] [id number] [place] [address]- 4566 Oct, [facility] [place] [facility] [address] [id number] [place] 2687 Oct, [facility] [place] [facility] [address] [id number] [place] [address]- 6754 Sep, [facility] [place] [facility] [address] [id number] [place] [address]- 4130 Sep, [facility] [place] [facility] [address] [id number] [place] [address]- 2063 Aug, [facility] [place] [facility] [address] [id number] [place] [address]- 3661 Aug, [facility] [place] [facility] [address] [id number] [place] [address]- 8479 Aug, [facility] [place] [facility] [address] [id number] [place] [address]- 6004 Aug, [facility] [place] [facility] [address] [id number] [place] [address]- 0725 Aug, [facility] [place] [facility] [address] [id number] [place]- 9013 Aug, [facility] [place] [facility] [address] [id number] [place] [address]- 1012 Aug, [facility] [place] [facility] [address] [id number] [place] [address]- 0755 Aug, [facility] [place] [facility] [address] [id number] [place] [address]- 1691 Jul, [facility] [place] [facility] [address] [id number] [place] [address]- 7775 Jul, [facility] [place] [facility] [address] [id number] [place] [address]- 5476 Jul, [facility] [place] [facility] [address] [id number] [place] [address]- 3924 Jul, [facility] [place] [facility] [address] [id number] [place] [address]- 6019 Jul, [facility] [place] [facility] [address] [id number] [place] [address]- 0638 Jul, [facility] [place] [facility] [address] [id number] [place] [address]- 8975 Jul, [facility] [place] [facility] [address] [id number] [place] [address]- 2206 Jul, [facility] [place] [facility] [address] [id number] [place] [address]- 8767 Jul, [facility] [place] [facility] [address] [id number] [place] [address]- 2992 June, [facility] [place] [facility] [address] [id number] [place] [address]- 4445 June, [facility] [place] [facility] [address] [id number] [place] [address]- 5937 May, [facility] [place] [facility] [address] [id number] [place] [address]- 3950 May, [facility] [place] [facility] [address] [id number] [place] [address]- 3431 May, [facility] [place] [facility] [address] [id number] [place] [address]- 9043 May, [facility] [place] [facility] [address] [id number] [place] [address]- 9563 May, [facility] [place] [facility] [address] [id number] [place] [address]- 8623 May, [facility] [place] [facility] [address] [id number] [place] [address]- 9547 May, [facility] [place] [facility] [address] [id number] [place] [address]- 9716 May, [facility] [place] [facility] [address] [id number] [place] [address]- 4897 May, [facility] [place] [facility] [address] [id number] [place] [address]- 4008 May, [facility] [place] [facility] [address] [id number] [place] [address]- 7791 May, [facility] [place] [facility] [address] [id number] [place] [address]- 4573 May, [facility] [place] [facility] [address] [id number] [place] [address]- 8259 Apr, [facility] [place] [facility] [address] [id number] [place] [address]- 5050 Apr, [facility] [place] [facility] [address] [id number] [place] [address]- 0850 Apr, [facility] [place] [facility] [address] [id number] [place] [address]- 1969 Apr, [facility] [place] [facility] [address] [id number] [place] [address]- 9464 Mar, [facility] [place] [facility] [address] [id number] [place] [address]- 5577 Mar, [facility] [place] [facility] [address] [id number] [place] [address]- 5529 Mar, [facility] [place] [facility] [address] [id number] [place] [address]- 8337 28 Mar, 2013 [facility] [place] [facility] [address] [id number] [place] [address]- 4300 Mar, 2013 [facility] [place] [facility] [address] [id number] [place] [address]- 8346 Mar, 2013 [facility] [place] [facility] [address] [id number] [place] [address]- 5952 19 Mar, 2013 [facility] [place] [facility] [address] [id number] [place] [address]- 254 Mar, 2013 [facility] [place] [facility] [address] [facility] [id number] [place] [address]- 6547 Mar, 2013 [facility] [place] [facility] [address] [facility] [id number] [place] [address]- 1157 Mar, 2013 [facility] [place] [facility] [address] [facility] [id number] [place] [address]- 6295 14 Mar, 2013 [facility] [place] [facility] [address] [facility] [id number] [place] [address]- 7138 14 Mar, 2013 [facility] [place] [facility] [address] [facility] [id number] [place] [address]- 5214 13 Mar, 2013 [facility] [place] [facility] [address] [facility] [id number] [place] [address]- 5767 13 Mar, 2013 [facility] [place] [facility] [address] [facility] [id number], [place] [address]- 8068 Mar, 2013 [facility] [place] [facility] [address] [facility] [id number] [place] [address]- 2481 Mar, [facility] [place] [facility] [address] [facility] [id number] [place] [address]- 1842 Mar, 2013 [facility] [place] [facility] [address] [facility] [id number] [place] [address]- 7244 Mar, 2013 [facility] [place] [facility] [address] [facility] [id number], [place] [address]- 1972 Mar, [facility] [address] [id number] [place] [address]- 2973 Mar, [facility] [place] [facility] [address] [id number] [place] [address] Feb, [facility] [place] [facility] [address] [id number] [place] [address] Feb, [facility] [place] [facility] [address] [id number] [place] [address] Feb, [facility] [place] [facility] [address] [id number] [place] [address] Feb, [facility] [place] [facility] [address] [id number] [place] [address] Feb, [facility] [place] [facility] [address] [id number] [place] [address] Feb, [facility] [place] [facility] [address] [id number] [place] [address] Feb, [facility] [place] [facility] [address] [id number] [place] [address] Feb, [facility] [place] [facility] [address] [id number] [place] [address] Feb, [facility] [place] [facility] [address] [id number] [place] [address] Feb, [facility] [place] [facility] [address] [id number], [place] [address] Feb, [facility] [place] [facility] [address] [id number] [place] [address] Feb, [facility] [place] [facility] [address] [id number] [place] [address] Feb, [facility] [place] [facility] [address] [id number] [place] [address] Feb, [facility] [place] [facility] [address] [id number] [place] [address] 16 Feb, 2013 [facility] [place] [facility] [address] [id number] [place] [address] 15 Feb, 2013 [facility] [place] [facility] [address] [id number] [place] [address] 15 Feb, 2013 [facility] [place] [facility] [address] [id number] [place] [address] Feb, [facility] [place] [facility] [address] [id number] [place] [address] Feb, [facility] [place] [facility] [address] [id number] [place] [address] Feb, [facility] [place] [facility] [address] [id number] [place] [address] Feb, [facility] [place] [facility] [address] [id number] [place] [address] Feb, [facility] [place] [facility] [address] [id number] [place] [address] Feb, [facility] [place] [facility] [address] [id number] [place] [address] Jan, [facility] [place] [facility] [address] [id number] [place] [address]- [address] 24 Jan, 2013 [facility] [place] [facility] [address] [id number] [place] [address] 19 Jan, 2013 [facility] [place] [facility] [address] [id number] [place] [address] 18 Jan, 2013 [facility] [place] [facility] [address] [id number] [place] [address] 18 Jan, 2013 [facility] [place] [facility] [address] [id number] [place] [address] 18 Jan, 2013 [facility] [place] [facility] [address] [id number] [place] [address] Jan, [facility] [address] [id number] [place] [address] Jan, [facility] [place] [facility] [address] [id number] [place] [address] Jan, [facility] [place] [facility] [address] [id number] [place] [address] Jan, [facility] [place] [facility] [address] [id number] [place] [address] Jan, [facility] [address] [id number] [place] [address] Jan, [facility] [place] [facility] [address] [id number] [place] [id number] Jan, [facility] [place] [facility] [address] [id number] [place] [address] Dec, [facility] [place] [facility] [address] [id number], [place] [address] Dec, [facility] [place] [facility] [address] [id number] [place] [address] Dec, [facility] [place] [facility] [address] [id number], [place] [address] Dec, [facility] [place] [facility] [address] [id number], [place] [address] 15 Dec, 2012 [facility] [place] [facility] [address] [id number], [place] [address] 15 Dec, 2012 [facility] [place] [facility] [address] [id number], [place] [address] Nov, [facility] [place] [facility] [address] [id number], [place] [address] Nov, [facility] [place] [facility] [address] [id number], [place] [address] Nov, [facility] [place] [facility] [address] [id number], [place] [address] Nov, [facility] [id number] [address] Nov, [facility] [id number] [address] Nov, [facility] [id number], [place] [address] [address], [address] [facility] [id number], [place] [address] 27 Oct, [address] [facility] [id number] [place] [address] [address], [address] [facility] [id number], [place] [address] Oct, [facility] [id number], [place] [address] Oct, [facility] [id number], [place] [address] 18 Oct, 2012 [facility] [id number], [place] [address] Oct, IMMUNIZATIONS No Known Immunizations SOCIAL HISTORY Never Assessed REASON FOR VISIT ritalin PLAN OF CARE VITAL SIGNS MEDICATIONS Medication Instructions Dosage Frequency Start Date End Date Duration Status Ritalin LA 30 MG Orally Once a day 1 capsule in the morning 24h Apr, 28 days Active RESULTS No Results PROCEDURES [...]
--- OUTSIDE RECORDS SUMMARY | 2017-09-10 18:13 | XMS REPORT ---
Author Author PAZ STEPHENS Organization [facility] Address [address] [place] [address] Care Team Providers Care Human Resources Manager Name Role Phone PAZ STEPHENS Unavailable PROBLEMS Type Condition ICD9-CM Code [id number] Code Onset Dates Condition Status SNOMED Code Problem Anxiety state F41.1 Active 369328752 Problem Depressive disorder, not elsewhere classified F32.9 Active 10087121 Problem ADHD (attention deficit hyperactivity disorder), combined type F90.2 Active 66428667 Problem Irritable bowel syndrome with diarrhea K58.0 Active 133447566 Problem Plantar wart of right foot B07.0 Active 61233341001363490 Problem Slow transit constipation K59.01 Active 25173946 Problem Rhinitis, unspecified type J31.0 Active 23645211 Problem Anxiety disorder, unspecified type F41.9 Active 404191874 Problem Major depressive disorder, single episode, mild F32.0 Active 92840399 ALLERGIES No Known Allergies ENCOUNTERS Encounter Location Date Diagnosis [facility] [id number] [place] [address] 47590- 6766 Jul, [facility] [id number] [place] [address] 56732- 9048 Jul, ADHD (attention deficit hyperactivity disorder), combined type F90.2 [facility] [id number] [place] [address] 18089- 0267 June, ADHD (attention deficit hyperactivity disorder), combined type F90.2 ; Major depressive disorder, single episode, mild F32.0 and Anxiety disorder, unspecified type F41.9 [facility] [id number] [place] [address] 53170- 0306 June, [facility] [id number] [place] [address] 53237- 4537 June, ADHD (attention deficit hyperactivity disorder), combined type F90.2 [facility] [address] [address] May, [facility] [address] [address] 7064 May, ADHD (attention deficit hyperactivity disorder), combined type F90.2 ; Major depressive disorder, single episode, mild F32.0 and Anxiety disorder, unspecified type F41.9 [facility] [address] [address] 9[address] May, Anxiety disorder, unspecified type F41.9 [facility] [id number] [place] [address] 80272- 4810 Apr, [facility] [id number] [place] [address] 25619- 5960 Apr, Anxiety disorder, unspecified type F41.9 [facility] [address] [address] 5284 Apr, Anxiety disorder, unspecified type F41.9 ; Major depressive disorder, single episode, mild F32.0 and ADHD (attention deficit hyperactivity disorder), combined type F90.2 [facility] [address] [address] 4[address] Apr, [facility] [address] [address]- 2435 Apr, ADHD (attention deficit hyperactivity disorder), combined type F90.2 ; Anxiety state F41.1 ; Depressive disorder, not elsewhere classified F32.9 ; Major depressive disorder, single episode, mild F32.0 and Anxiety disorder, unspecified type F41.9 [facility] [address] [address] 1677 Mar, ADHD (attention deficit hyperactivity disorder), combined type F90.2 [facility] [address], [place] [address]- 0387 Mar, Nausea R11.0 [facility] [address] [address] 3935 13 Mar, 2017 Screening for STD sexually transmitted disease Z11.3 ; Vaginal candidiasis B37.3 and Irritable bowel syndrome with diarrhea K58.0 [facility] [address] [address] 0564 Mar, [facility] [id number] [place] [address] 56235- 8996 Feb, ADHD (attention deficit hyperactivity disorder), combined type F90.2 [facility] [id number] [place] [address] 46904- 3389 Feb, Depressive disorder, not elsewhere classified F32.9 ; Anxiety state F41.1 and ADHD (attention deficit hyperactivity disorder), combined type F90.2 [facility] [id number] [place] [address] 11930- 8238 Feb, Depressive disorder, not elsewhere classified F32.9 ; Anxiety state F41.1 and ADHD (attention deficit hyperactivity disorder), combined type F90.2 [facility] [id number] [place] [address] 21591- 8206 Feb, ADHD (attention deficit hyperactivity disorder), combined type F90.2 [facility] [address], [place] [address] Jan, Other viral agents as the cause of diseases classified elsewhere B97.89 and Acute upper respiratory infection, unspecified J06.9 [facility] [address] [address]- 7736 Jan, ADHD (attention deficit hyperactivity disorder), combined type F90.2 ; Major depressive disorder, single episode, mild F32.0 and Anxiety disorder, unspecified type F41.9 [facility] [address] [address]- 1485 Jan, [facility] [id number] [place] [address] 13350- 4098 Jan, ADHD (attention deficit hyperactivity disorder), combined type F90.2 ; Major depressive disorder, single episode, mild F32.0 and Anxiety disorder, unspecified type F41.9 [facility] [id number] [place] [address] 58387- 2522 Dec, Irritable bowel syndrome with diarrhea K58.0 and Lower abdominal pain R10.30 [facility] [id number] [place] [address] 05594- 9284 Dec, Hospital discharge follow-up Z09 ; Mesenteric adenitis I88.0 ; IBD (inflammatory bowel disease) K52.9 and Nausea R11.0 [facility] [id number] [place] [address] 69233- 0314 Nov, ADHD (attention deficit hyperactivity disorder), combined type F90.2 ; Major depressive disorder, single episode, mild F32.0 and Anxiety disorder, unspecified type F41.9 [facility] [id number] [place] [address] 83568- 4080 Nov, Anxiety state F41.1 ; ADHD (attention deficit hyperactivity disorder), combined type F90.2 ; Major depressive disorder, single episode, mild F32.0 and Anxiety disorder, unspecified type F41.9 [facility] [id number] [place] [address] 84701- 6326 Oct, Anxiety state F41.1 ; ADHD (attention deficit hyperactivity disorder), combined type F90.2 ; Major depressive disorder, single episode, mild F32.0 and Anxiety disorder, unspecified type F41.9 [facility] [id number] [place] [address] 09938- 5739 Oct, ADHD (attention deficit hyperactivity disorder), combined type F90.2 ; Major depressive disorder, single episode, mild F32.0 and Anxiety disorder, unspecified type F41.9 [facility] [id number] [place] [address] 51500- 6821 Oct, Major depressive disorder, single episode, mild F32.0 ; Anxiety state F41.1 ; ADHD (attention deficit hyperactivity disorder), combined type F90.2 and Depressive disorder, not elsewhere classified F32.9 [facility] [id number] [place] [address] 90906 -7893 16 Oct, 2016 [facility] [id number] [place] [address] 56230 -1045 Oct, Cellulitis L03.90 and Plantar wart of right foot B07.0 [facility] [id number] [place] [address] 58564- 9145 Aug, ADHD (attention deficit hyperactivity disorder), combined type F90.2 ; Major depressive disorder, single episode, mild F32.0 and Anxiety disorder, unspecified type F41.9 [facility] [id number] [place] [address] 83044- 4127 Aug, [facility] [address] 87387- 9095 Jul, ADHD (attention deficit hyperactivity disorder), combined type F90.2 [facility] [id number] [place] [address] 66092- 1264 Jul, Mesenteric adenitis I88.0 [facility] [id number] [place] [address] 58746- 6329 June, [facility] [id number] [place] [address] 91395 -1030 June, Lower abdominal pain R10.30 [facility] [id number] [place] [address] 78254- 7319 June, [facility] [id number] [place] [address] 71819- 4274 June, ADHD (attention deficit hyperactivity disorder), combined type F90.2 and Major depressive disorder, single episode, mild F32.0 [facility] [id number] [place] [address] 47320- 6050 May, [facility] [id number] [place] [address] 65973- 8638 May, ADHD (attention deficit hyperactivity disorder), combined type F90.2 and Major depressive disorder, single episode, mild F32.0 [facility] [id number] [place] [address] 68189 -5733 Apr, Abdominal pain R10.9 and Gastroenteritis and colitis, viral A08.4 [facility] [id number] [place] [address] 41002- 1310 Apr, [facility] [id number] [place] [address] 84078 -0134 Mar, Acute urticaria L50.8 [facility] [id number] [place] [address] 52535- 6113 Mar, [facility] [id number] [place] [address] 49317- 1141 Feb, [facility] [id number] [place] [address] 51423 -8656 Feb, Gastroenteritis K52.9 [facility] [id number] [place] [address] 38694- 8380 Feb, Irritant contact dermatitis due to cosmetics L24.3 [facility] [id number] [place] [address] 48562- 9291 Jan, [facility] [id number] [place] [address] 76593- 8523 Jan, [facility] [id number] [place] [address] 34914- 8695 Jan, ADHD (attention deficit hyperactivity disorder), combined type F90.2 and Major depressive disorder, single episode, mild F32.0 [facility] [id number] [place] [address] 14228 -2481 Dec, Flexural eczema L20.82 [facility] [id number] [place] [address] 29957- 4517 Dec, Encounter for test Z32.00 [facility] [address] 01626- 6247 Dec, [facility] [id number] [place] [address] 47847- 3919 Dec, [facility] [address] 89901- 5841 Dec, [facility] [address] 06359 -2586 Nov, Sore throat J02.9 and Pharyngitis, unspecified etiology J02.9 [facility] [id number] [place] [address] 79286- 8183 Nov, [facility] [address] 47289- 0334 Nov, [facility] [id number] [place] [address] 01369- 0823 Nov, Generalized abdominal pain R10.84 and Slow transit constipation K59.01 [facility] [id number] [place] [address] [phone] Nov, Pharyngitis, unspecified etiology J02.9 and Rhinitis, unspecified type J31.0 [facility] [id number] [place] [address] 77609- 0523 Oct, Depressive disorder, not elsewhere classified F32.9 and ADHD (attention deficit hyperactivity disorder), combined type F90.2 [facility] [id number] [place] [address] 42758- 5790 Oct, [facility] [id number] [place] [address] 13563- 6556 Oct, [facility] [id number] [place] [address] 89633 -2092 Oct, Strep throat J02.0 [facility] [address] [address]- 8912 16 Oct, 2015 [facility] [id number] [address]- 0292 Oct, Well woman exam with routine gynecological exam Z01.419 and Screening for STD sexually transmitted disease Z11.3 [facility] [id number] [address]- 0291 Sep, ADHD (attention deficit hyperactivity disorder), combined type F90.2 ; Anxiety state F41.1 and Depressive disorder, not elsewhere classified F32.9 [facility] [address] [address]- 5350 Sep, ADHD (attention deficit hyperactivity disorder), combined type F90.2 and Depressive disorder, not elsewhere classified F32.9 [facility] [id number] [address]- 3300 Aug, [facility] [address] [address]- 0565 Aug, ADHD (attention deficit hyperactivity disorder), combined type F90.2 and Depressive disorder, not elsewhere classified F32.9 [facility] [address] [address]- 5888 Aug, ADHD (attention deficit hyperactivity disorder), combined type F90.2 ; Anxiety state F41.1 and Depressive disorder, not elsewhere classified F32.9 [facility] [address] [address]- 0944 Aug, [facility] [address] [address]- 3851 Aug, [facility] [address] [address]- 3099 Jul, ADHD (attention deficit hyperactivity disorder), combined type F90.2 ; Depressive disorder, not elsewhere classified F32.9 and Anxiety state F41.1 [facility] [id number] [place] [address] 22043- 2692 Jul, [facility] [id number] [place] [address] 95234- 3469 Jul, ADHD (attention deficit hyperactivity disorder), combined type F90.2 ; Anxiety state F41.1 and Depressive disorder, not elsewhere classified F32.9 [facility] [id number] [place] [address] 73089- 7246 June, [facility] [id number] [place] [address] [id number] June, Constipation K59.00 [facility] [address] 33455- 6660 May, Constipation K59.00 [facility] [id number] [place] [address] 75139 -5285 May, Irritable bowel syndrome with diarrhea K58.0 [facility] [id number] [place] [address] 06245- 2079 May, [facility] [id number] [place] [address] 81213- 6871 May, [facility] [id number] [place] [address] 04953- 2857 May, [facility] [id number] [place] [address] 36922- 9230 May, [facility] [id number] [place] [address] 53709- 2460 Jan, [facility] [id number] [place] [address] 98228- 6695 Jan, [facility] [id number] [place] [address] 25362- 0598 Jan, [facility] [id number] [place] [address] 68401- 3575 Jan, [facility] [id number] [place] [address]- 6266 Jan, [facility] [place] [facility] [address] [id number] [place] [address]- 9197 Jan, [facility] [place] [facility] [address] [id number] [place] [address]- 3500 Nov, [facility] [place] [facility] [address] [id number] [place] [address]- 4914 Nov, [facility] [place] [facility] [address] [id number] [place] [address]- 2035 Oct, [facility] [place] [facility] [address] [id number] [place] [address]- 2659 Oct, [facility] [place] [facility] [address] [id number] [place] [address]- 2165 Sep, [facility] [place] [facility] [address] [id number] [place] [address]- 9182 Sep, [facility] [place] [facility] [address] [id number] [place] [address]- 2016 Aug, [facility] [place] [facility] [address] [id number] [place] [address]- 9929 Aug, [facility] [place] [facility] [address] [id number] [place] [address]- 7852 Aug, [facility] [place] [facility] [address] [id number] [place] [address]- 3812 Aug, [facility] [place] [facility] [address] [id number] [place] [address]- 7956 Aug, [facility] [place] [facility] [address] [id number] [place] [address]- 3705 Aug, [facility] [place] [facility] [address] [id number] [place] [address]- 1726 Aug, [facility] [place] [facility] [address] [id number] [place] 4928 Aug, [facility] [place] [facility] [address] [id number] [place] [address]- 3269 Jul, [facility] [place] [facility] [address] [id number] [place] [address]- 7763 Jul, [facility] [place] [facility] [address] [id number] [place] [address]- 6700 Jul, [facility] [place] [facility] [address] [id number] [place] [address]- 1601 Jul, [facility] [place] [facility] [address] [id number] [place] [address]- 6207 Jul, [facility] [place] [facility] [address] [id number] [place] [address]- 4116 Jul, [facility] [place] [facility] [address] [id number] [place] [address]- 4706 Jul, [facility] [place] [facility] [address] [id number] [place] [address]- 2657 Jul, [facility] [place] [facility] [address] [id number] [place] [address]- 9445 Jul, [facility] [place] [facility] [address] [id number] [place] [address]- 0182 June, [facility] [place] [facility] [address] [id number] [place] [address]- 3254 June, [facility] [place] [facility] [address] [id number] [place] [address]- 3292 May, [facility] [place] [facility] [address] [id number] [place] [address]- 5631 May, [facility] [place] [facility] [address] [id number] [place] [address]- 2454 May, [facility] [place] [facility] [address] [id number] [place] [address]- 9619 May, [facility] [place] [facility] [address] [id number] [place] [address]- 3276 May, [facility] [place] [facility] [address] [id number] [place] [address]- 2100 May, [facility] [place] [facility] [address] [id number] [place] [address]- 7709 May, [facility] [place] [facility] [address] [id number] [place] [address]- 5636 May, [facility] [place] [facility] [address] [id number] [place] [address]- 4755 May, [facility] [place] [facility] [address] [id number] [place] [address]- 7044 May, [facility] [place] [facility] [address] [id number] [place] [address]- 9305 May, [facility] [place] [facility] [address] [id number] [place] [address]- 1606 May, [facility] [place] [facility] [address] [id number] [place] [address]- 0179 Apr, [facility] [place] [facility] [address] [id number] [place] [address]- 9309 Apr, [facility] [place] [facility] [address] [id number] [place] [address]- 9736 Apr, [facility] [place] [facility] [address] [id number] [place] [address]- 7809 Apr, [facility] [place] [facility] [address] [id number] [place] [address]- 9134 Mar, [facility] [place] [facility] [address] [id number] [place] [address]- 5912 Mar, [facility] [place] [facility] [address] [id number] [place] [address]- 5814 Mar, [facility] [place] [facility] [address] [id number] [place] [address]- 7279 Mar, [facility] [place] [facility] [address] [id number] [place] [address]- 9128 Mar, [facility] [place] [facility] [address] [id number] [place] [address]- 6936 Mar, [facility] [place] [facility] [address] [id number] [place] [address]- 0076 Mar, [facility] [place] [facility] [address] [id number] [place] [address]- 2545 Mar, [facility] [place] [facility] [address] [id number] [place] [address]- 2985 Mar, [facility] [place] [facility] [address] [id number] [place] [address]- 5153 Mar, [facility] [place] [facility] [address] [facility] [id number] [place] [address]- 4160 14 Mar, 2013 [facility] [place] [facility] [address] [id number] [place] [address]- 7100 14 Mar, 2013 [facility] [place] [facility] [address] [facility] [id number] [place] [address]- 3936 Mar, [facility] [place] [facility] [address] [facility] [id number] [place] [address]- 4202 Mar, [facility] [place] [facility] [address] [facility] [id number] [place] [address]- 4742 Mar, [facility] [place] [facility] [address] [id number] [place] [address]- 5570 Mar, [facility] [place] [facility] [address] [facility] [id number] [place] [address] Mar, [facility] [place] [facility] [address] [id number] [place] [address] Mar, [facility] [place] [facility] [address] [facility] [id number] [place] [address] 04 Mar, 2013 [facility] [place] [facility] [address] [id number] [place] [address] Mar, [facility] [place] [facility] [address] [id number] [place] [address] Feb, [facility] [place] [facility] [address] [id number] [place] [address] Feb, [facility] [place] [facility] [address] [id number] [place] [address] Feb, [facility] [place] [facility] [address] [id number] [place] [address] Feb, [facility] [place] [facility] [address] [id number] [place] [address] Feb, [facility] [place] [facility] [address] [id number] [place] [address] Feb, [facility] [place] [facility] [address] [id number] [place] [address] Feb, [facility] [place] [facility] [address] [id number] [place] [address] Feb, [facility] [place] [facility] [address] [id number] [place] [address] Feb, [facility] [place] [facility] [address] [id number] [place] [address] Feb, [facility] [place] [facility] [address] [id number] [place] [address] Feb, [facility] [place] [facility] [address] [id number] [place] [address] Feb, [facility] [place] [facility] [address] [id number] [place] [address] Feb, [facility] [place] [facility] [address] [id number] [place] [address] Feb, [facility] [place] [facility] [address] [id number] [place] [address] Feb, 2013 [facility] [address] [id number] [place] [address] 15 Feb, 2013 [facility] [place] [facility] [address] [id number] [place] [address] 15 Feb, 2013 [facility] [place] [facility] [address] [facility] [id number] [place] [address] Feb, [facility] [place] [facility] [address] [id number] [place] [address]- [address] Feb, [facility] [place] [facility] [address] [id number] [place] [address] Feb, [facility] [place] [facility] [address] [id number] [place] [address] Feb, [facility] [place] [facility] [address] [id number] [place] [address] Feb, [facility] [place] [facility] [address] [id number], [place] [address] Feb, [facility] [place] [facility] [address] [id number] [place] [address] Jan, [facility] [place] [facility] [address] [id number] [place] [address] 24 Jan, 2013 [facility] [place] [facility] [address] [id number][place] [address] 19 Jan, 2013 [facility] [place] [facility] [address] [id number], [place] [address] 18 Jan, 2013 [facility] [place] [facility] [address] [id number] [place] [address] 18 Jan, 2013 [facility] [place] [facility] [address] [id number][place] [address] 18 Jan, 2013 [facility] [place] [facility] [address] [id number] [place] [address] 18 Jan, 2013 [facility] [place] [facility] [address] [id number] [place] [address] Jan, [facility] [address] [id number] [place] [address] Jan, [facility] [place] [facility] [address] [id number] [place] [address] Jan, [facility] [address] [id number] [place] [address] Jan, [facility] [place] [facility] [address] [id number] [place] [address] Jan, [facility] [address] [id number] [place] [address] Jan, [facility] [place] [facility] [address] [id number] [place] [address] Dec, [facility] [place] [facility] [address] [id number] [place] [address] Dec, [facility] [place] [facility] [address] [id number] [place] [address] Dec, [facility] [place] [facility] [address] [id number] [place] [address] Dec, [facility] [address] [facility] [id number] [place] [address] Dec, [facility] [place] [facility] [address] [id number] [place] [address] Dec, [facility] [place] [facility] [address] [id number], [place] [address] Nov, [facility] [place] [facility] [address] [id number] [place] [address] Nov, [facility] [place] [facility] [address] [id number] [place] [address] Nov, [facility] [place] [facility] [address] [id number] [place] [address] Nov, [facility] [address] [id number] [address] Nov, [facility] [id number] [address] Nov, [facility] [id number] [address] Oct, [facility] [id number] [address] Oct, [facility] [id number] [address] Oct, [facility] [id number] [address] Oct, [facility] [id number] [address] Oct, [facility] [id number] [address] Oct, [facility] [address] [id number] [address] Oct, IMMUNIZATIONS No Known Immunizations SOCIAL HISTORY Never Assessed REASON FOR VISIT cough and chest congestion started yesterday JStrasserRN PLAN OF CARE VITAL SIGNS Height 59 in 2017-02-01 Weight 142.8 lbs 2017-02-01 Temperature 98.6 degrees Fahrenheit 2017-02-01 Heart Rate 116 bpm 2017-02-01 Respiratory Rate 22 2017-02-01 BMI 28.84 kg/m2 2017-02-01 Blood pressure systolic 124 mmHg 2017-02-01 Blood pressure diastolic 86 mmHg 2017-02-01 MEDICATIONS Medication Instructions Dosage Frequency Start Date End Date Duration Status Promethazine HCl 25 MG Orally every 4 hrs 1 tablet as needed 4h Active Ondansetron 4 MG Orally every 8 hrs prn 1 tablet on the tongue and allow to dissolve Dec, 14 days Active Ritalin LA 20 mg Orally Once a day 1 capsule in the morning 24h Jan, Jan, 28 days Active PredniSONE 20 mg Orally Once a day 1 tablet 24h Jan, Jan, 05 days Active HydrOXYzine HCl 25 MG Orally three times a day as needed for anxiety 1 tablet as needed Jan, Active Venlafaxine HCl ER 150 MG Orally Once a day 1 capsule with food 24h May Active Protonix 40 MG Orally Once a day 1 tablet 24h Active RESULTS No Results PROCEDURES No Known [...]
--- OUTSIDE RECORDS SUMMARY | 2017-09-10 18:14 | XMS REPORT ---
Author Author JENNIFER HARIKA [facility] Address [address] [place] [address] Care Team Providers Care Assistant Coach Name Role Phone JENNIFERHARIKA Unavailable PROBLEMS Type Condition ICD9-CM Code [id number] Code Onset Dates Condition Status SNOMED Code Problem Anxiety state F41.1 Active 248393663 Problem Depressive disorder, not elsewhere classified F32.9 Active 23768276 Problem ADHD (attention deficit hyperactivity disorder), combined type F90.2 Active 63696825 Problem Irritable bowel syndrome with diarrhea K58.0 Active 836974662 Problem Plantar wart of right foot B07.0 Active [id number] Problem Slow transit constipation K59.01 Active 32885488 Problem Rhinitis, unspecified type J31.0 Active 93567100 Problem Anxiety disorder, unspecified type F41.9 Active 675124515 Problem Major depressive disorder, single episode, mild F32.0 Active 69500124 ALLERGIES No Information ENCOUNTERS Encounter Location Date Diagnosis [place] [id number] [place] [address] 96764- 5123 Jul, [facility] [id number] [place] [address] 32717- 9422 Jul, ADHD (attention deficit hyperactivity disorder), combined type F90.2 [facility] [id number] [place] [address] 20851- 2213 June, ADHD (attention deficit hyperactivity disorder), combined type F90.2 ; Major depressive disorder, single episode, mild F32.0 and Anxiety disorder, unspecified type F41.9 [facility] [id number] [place] [address] 86727- 6904 June, [facility] [address] 00[address]- 5487 June, ADHD (attention deficit hyperactivity disorder), combined type F90.2 [facility] [address], [place] [address] 6[address] May, [facility] [address], [place] [address] 5363 May, ADHD (attention deficit hyperactivity disorder), combined type F90.2 ; Major depressive disorder, single episode, mild F32.0 and Anxiety disorder, unspecified type F41.9 [facility] [address], [place] [address] 4026 May, Anxiety disorder, unspecified type F41.9 [facility] [id number] [address] 2735 Apr, [facility] [id number] [address]- 2327 Apr, Anxiety disorder, unspecified type F41.9 [facility] [address], [place] [address]- 1504 Apr, Anxiety disorder, unspecified type F41.9 ; Major depressive disorder, single episode, mild F32.0 and ADHD (attention deficit hyperactivity disorder), combined type F90.2 [facility] [address], [place] [address]- 4[address] Apr, [facility] [address], [place] [address]- 2558 Apr, ADHD (attention deficit hyperactivity disorder), combined type F90.2 ; Anxiety state F41.1 ; Depressive disorder, not elsewhere classified F32.9 ; Major depressive disorder, single episode, mild F32.0 and Anxiety disorder, unspecified type F41.9 [facility] [address], [place] [address]- 2825 Mar, ADHD (attention deficit hyperactivity disorder), combined type F90.2 [facility] [address], [place] [address]- 7567 Mar, Nausea R11.0 [facility] [address], [place] [address]- 4812 13 Mar, 2017 Screening for STD sexually transmitted disease Z11.3 ; Vaginal candidiasis B37.3 and Irritable bowel syndrome with diarrhea K58.0 [facility] [id number] [address]- 8349 Mar, [facility] [id number] [place] [address] 50843- 6212 Feb, ADHD (attention deficit hyperactivity disorder), combined type F90.2 [place] [id number] [place] [address] 29092- 8800 Feb, Depressive disorder, not elsewhere classified F32.9 ; Anxiety state F41.1 and ADHD (attention deficit hyperactivity disorder), combined type F90.2 [place] [id number] [place] [address] 93551- 8061 Feb, Depressive disorder, not elsewhere classified F32.9 ; Anxiety state F41.1 and ADHD (attention deficit hyperactivity disorder), combined type F90.2 [place] [id number] [place] [address] 63697- 6190 Feb, ADHD (attention deficit hyperactivity disorder), combined type F90.2 [facility] [address], [place] [address] Jan, Other viral agents as the cause of diseases classified elsewhere B97.89 and Acute upper respiratory infection, unspecified J06.9 [facility] [address], [place] [address]- 5301 Jan, ADHD (attention deficit hyperactivity disorder), combined type F90.2 ; Major depressive disorder, single episode, mild F32.0 and Anxiety disorder, unspecified type F41.9 [facility] [address] [place] [address] 19057- 5058 Jan, [facility] [id number] [address]- 2596 Jan, ADHD (attention deficit hyperactivity disorder), combined type F90.2 ; Major depressive disorder, single episode, mild F32.0 and Anxiety disorder, unspecified type F41.9 [place] [id number] [place] [address] 67984- 7068 Dec, Irritable bowel syndrome with diarrhea K58.0 and Lower abdominal pain R10.30 [place] [id number] [place] [address] 53165- 9918 09 Dec, 2016 Hospital discharge follow-up Z09 ; Mesenteric adenitis I88.0 ; IBD (inflammatory bowel disease) K52.9 and Nausea R11.0 [place] [id number] [place] [address] 51475- 1794 Nov, ADHD (attention deficit hyperactivity disorder), combined type F90.2 ; Major depressive disorder, single episode, mild F32.0 and Anxiety disorder, unspecified type F41.9 [place] [id number] [place] [address] 00506- 0411 Nov, Anxiety state F41.1 ; ADHD (attention deficit hyperactivity disorder), combined type F90.2 ; Major depressive disorder, single episode, mild F32.0 and Anxiety disorder, unspecified type F41.9 [place] [address] [place] [address] 47543- 0347 Oct, Anxiety state F41.1 ; ADHD (attention deficit hyperactivity disorder), combined type F90.2 ; Major depressive disorder, single episode, mild F32.0 and Anxiety disorder, unspecified type F41.9 [place] [address] [place] [address] 21617- 1643 Oct, ADHD (attention deficit hyperactivity disorder), combined type F90.2 ; Major depressive disorder, single episode, mild F32.0 and Anxiety disorder, unspecified type F41.9 [place] [address] [place] [address] 01153- 9433 Oct, Major depressive disorder, single episode, mild F32.0 ; Anxiety state F41.1 ; ADHD (attention deficit hyperactivity disorder), combined type F90.2 and Depressive disorder, not elsewhere classified F32.9 [facility] [id number] [place] [address] 10007 -2402 16 Oct, 2016 [facility] [id number] [place] [address] 35451 -9305 Oct, Cellulitis L03.90 and Plantar wart of right foot B07.0 [facility] [id number] [place] [address] 63477- 8161 Aug, ADHD (attention deficit hyperactivity disorder), combined type F90.2 ; Major depressive disorder, single episode, mild F32.0 and Anxiety disorder, unspecified type F41.9 [facility] [id number] [place] [address] 81891- 5875 Aug, [facility] [id number] [place] [address] 16806- 8580 Jul, ADHD (attention deficit hyperactivity disorder), combined type F90.2 [facility] [id number] [place] [address] 09389- 7288 Jul, Mesenteric adenitis I88.0 [facility] [id number] [place] [address] 25338- 7272 June, [facility] [id number] [place] [address] 99975 -5440 June, Lower abdominal pain R10.30 [facility] [id number] [place] [address] 71116- 5839 June, [facility] [address] 30179- 4564 June, ADHD (attention deficit hyperactivity disorder), combined type F90.2 and Major depressive disorder, single episode, mild F32.0 [facility] [id number] [place] [address] 68431- 1222 May, [facility] [address] [place] [address] 36710- 1824 May, ADHD (attention deficit hyperactivity disorder), combined type F90.2 and Major depressive disorder, single episode, mild F32.0 [facility] [id number] [place] [address] 71294 -6570 Apr, Abdominal pain R10.9 and Gastroenteritis and colitis, viral A08.4 [facility] [id number] [place] [address] 35360- 7825 Apr, [facility] [address] 52695 -5303 Mar, Acute urticaria L50.8 [place] [id number] [place] [address] 77069- 6916 Mar, [facility] [address] 63217- 7084 Feb, [facility] [id number] [place] [address] 70805 -6563 Feb, Gastroenteritis K52.9 [place] [id number] [place] [address] 63817- 7430 Feb, Irritant contact dermatitis due to cosmetics L24.3 [place] [id number] [place] [address] 50611- 2721 Jan, [facility] [id number] [place] [address] 97447- 1824 Jan, [place] [id number] [place] [address] 08241- 0745 Jan, ADHD (attention deficit hyperactivity disorder), combined type F90.2 and Major depressive disorder, single episode, mild F32.0 [facility] [id number] [place] [address] 40995 -4140 Dec, Flexural eczema L20.82 [place] [id number] [place] [address] 17444- 4865 Dec, Encounter for test Z32.00 [facility] [address] 28715- 1987 Dec, [facility] [id number] [place] [address] 78056- 1924 Dec, [facility] [address] 60338- 5015 Dec, [facility] [address] 25457 -0707 Nov, Sore throat J02.9 and Pharyngitis, unspecified etiology J02.9 [facility] [address] 46049- 8270 Nov, [facility] [address] 40370- 1530 Nov, [facility] [address] 83494- 4845 Nov, Generalized abdominal pain R10.84 and Slow transit constipation K59.01 [facility] [id number] [place] [address] [id number] Nov, Pharyngitis, unspecified etiology J02.9 and Rhinitis, unspecified type J31.0 [facility] [id number] [place] [address] 82243- 1717 Oct, Depressive disorder, not elsewhere classified F32.9 and ADHD (attention deficit hyperactivity disorder), combined type F90.2 [facility] [address] 77216- 4869 Oct, [facility] [id number] [place] [address] 22320- 0670 Oct, [facility] [id number] [place] [address] 81155 -6766 Oct, Strep throat J02.0 [facility] [address], [place] [address]- 0634 Oct, [facility] [address], [place] [address]- 4095 Oct, Well woman exam with routine gynecological exam Z01.419 and Screening for STD sexually transmitted disease Z11.3 [facility] [id number] [place] [address] 53205- 1189 Sep, ADHD (attention deficit hyperactivity disorder), combined type F90.2 ; Anxiety state F41.1 and Depressive disorder, not elsewhere classified F32.9 [facility] [address], [place] [address]- 3532 Sep, ADHD (attention deficit hyperactivity disorder), combined type F90.2 and Depressive disorder, not elsewhere classified F32.9 [facility] [address], [place] [address]- 5849 Aug, [facility] [address] [place] [address] 16764- 9794 Aug, ADHD (attention deficit hyperactivity disorder), combined type F90.2 and Depressive disorder, not elsewhere classified F32.9 [facility] [address], [place] [address]- 0789 Aug, ADHD (attention deficit hyperactivity disorder), combined type F90.2 ; Anxiety state F41.1 and Depressive disorder, not elsewhere classified F32.9 [facility] [address], [place] [address]- 0468 Aug, [facility] [address], [place] [address]- 6083 Aug, [facility] [id number] [address]- 7118 Jul, ADHD (attention deficit hyperactivity disorder), combined type F90.2 ; Depressive disorder, not elsewhere classified F32.9 and Anxiety state F41.1 [facility] [id number] [place] [address] 38945- 6521 Jul, [facility] [id number] [place] [address] 87235- 3669 Jul, ADHD (attention deficit hyperactivity disorder), combined type F90.2 ; Anxiety state F41.1 and Depressive disorder, not elsewhere classified F32.9 [facility] [address] 15476- 1266 June, [facility] [id number] [place] [address] [id number] June, Constipation K59.00 [facility] [address] 51278- 9107 May, Constipation K59.00 [facility] [id number] [place] [address] 67861 -8776 May, Irritable bowel syndrome with diarrhea K58.0 [facility] [id number] [place] [address] 92309- 4649 May, [facility] [id number] [place] [address] 63622- 0206 May, [facility] [id number] [place] [address] 17616- 0877 May, [facility] [id number] [place] [address] 12454- 4682 May, [facility] [id number] [place] [address] 18720- 2455 Jan, [facility] [id number] [place] [address] 66237- 4179 Jan, [facility] [id number] [place] [address] 90240- 8161 Jan, [facility] [id number] [place] [address] 68468- 2762 Jan, [facility] [place] [facility] [address] [id number] [place] [address]- 2619 Jan, [facility] [place] [facility] [address] [id number] [place] [address]- 0438 Jan, [facility] [place] [facility] [address] [id number] [place] [address]- 5948 Nov, [facility] [place] [facility] [address] [id number] [place] [address]- 5655 Nov, [facility] [place] [facility] [address] [id number] [place] [address]- 6276 Oct, [facility] [place] [facility] [address] [id number] [place] [address]- 4804 Oct, [facility] [place] [facility] [address] [id number] [place] [address]- 3275 Sep, [facility] [place] [facility] [address] [id number] [place] [address]- 3736 Sep, [facility] [place] [facility] [address] [id number] [place] [address]- 5604 Aug, [facility] [place] [facility] [address] [id number] [place] [address]- 3175 Aug, [facility] [place] [facility] [address] [id number] [place] [address]- 8929 Aug, [facility] [place] [facility] [address] [id number] [place] [address]- 0887 Aug, [facility] [place] [facility] [address] [id number] [place] [address]- 0676 Aug, [facility] [place] [facility] [address] [id number] [place] [address]- 0198 Aug, [facility] [place] [facility] [address] [id number] [place] [address]- 0011 Aug, [facility] [place] [facility] [address] [id number] [place] [address]- 3798 Aug, [facility] [place] [facility] [address] [id number] [place] [address]- 0569 Jul, [facility] [place] [facility] [address] [id number] [place] [address]- 6502 Jul, [facility] [place] [facility] [address] [id number] [place] [address]- 9088 Jul, [facility] [place] [facility] [address] [id number] [place] [address]- 4872 Jul, [facility] [place] [facility] [address] [id number] [place] [address]- 1436 Jul, [facility] [place] [facility] [address] [id number] [place] [address]- 4757 Jul, [facility] [place] [facility] [address] [id number] [place] [address]- 3533 Jul, [facility] [place] [facility] [address] [id number] [place] [address]- 3299 Jul, [facility] [place] [facility] [address] [id number] [place] [address]- 9198 Jul, [facility] [place] [facility] [address] [id number] [place] [address]- 1921 June, [facility] [place] [facility] [address] [id number] [place] [address]- 4781 June, [facility] [place] [facility] [address] [id number] [address]- 8082 May, [facility] [place] [facility] [address] [id number] [place] [address]- 7863 May, [facility] [place] [facility] [address] [id number] [place] [address]- 6738 May, [facility] [place] [facility] [address] [id number] [place] [address]- 3890 May, [facility] [place] [facility] [address] [id number] [place] [address]- 8844 May, [facility] [address] [id number] [place] [address]- 1595 May, [facility] [place] [facility] [address] [id number] [place] [address]- 4876 May, [facility] [place] [facility] [address] [id number] [place] [address]- 9266 May, [facility] [place] [facility] [address] [id number] [place] [address]- 2825 May, [facility] [place] [facility] [address] [id number] [place] [address]- 7365 May, [facility] [place] [facility] [address] [id number] [place] [address]- 1004 May, [facility] [place] [facility] [address] [id number] [place] [address]- 9793 May, [facility] [place] [facility] [address] [id number] [place] [address]- 2997 Apr, [facility] [place] [facility] [address] [id number] [place] [address]- 5954 Apr, [facility] [place] [facility] [address] [id number] [place] [address]- 0141 Apr, [facility] [place] [facility] [address] [id number] [place] [address]- 5660 Apr, [facility] [place] [facility] [address] [id number] [place] 3219 Mar, [facility] [place] [facility] [address] [id number] [place] [address]- 1350 Mar, [facility] [place] [facility] [address] [id number] [place] 1416 Mar, [facility] [place] [facility] [address] [id number] [place] 4819 Mar, [facility] [place] [facility] [address] [id number] [place] [address]- 0993 Mar, [facility] [place] [facility] [address] [id number] [place] [address]- 4896 Mar, [facility] [place] [facility] [address] [facility] [id number] [place] [address]- 4152 Mar, [facility] [place] [facility] [address] [facility] [id number] [place] [address]- 9827 Mar, 2013 [facility] [place] [facility] [address] [id number] [place] [address]- 3603 Mar, [facility] [place] [facility] [address] [facility] [id number] [place] [address]- 3825 Mar, [facility] [place] [facility] [address] [facility] [id number] [place] [address]- 8297 14 Mar, 2013 [facility] [place] [facility] [address] [facility] [id number] [place] [address]- 2564 14 Mar, 2013 [facility] [place] [facility] [address] [facility] [id number] [place] [address]- 2170 13 Mar, 2013 [facility] [place] [facility] [address] [facility] [id number] [place] [address]- 7356 13 Mar, 2013 [facility] [place] [facility] [address] [facility] [id number] [place] [address]- 5535 Mar, 2013 [facility] [place] [facility] [address] [facility] [id number] [place] [address]- 7131 Mar, [facility] [place] [facility] [address] [facility] [id number] [place] [address]- 6761 Mar, [facility] [place] [facility] [address] [facility] [id number] [place] [address]- 0236 Mar, 2013 [facility] [place] [facility] [address] [facility] [id number] [place] [address]- 1754 Mar, [facility] [place] [facility] [address] [id number] [place] [address]- 3915 Mar, [facility] [place] [facility] [address] [id number] [place] [address]- 9021 Feb, [facility] [place] [facility] [address] [id number] [place] [address]- 2063 Feb, [facility] [place] [facility] [address] [id number] [place] [address]- 9386 Feb, [facility] [place] [facility] [address] [id number] [place] [address]- 9642 Feb, [facility] [place] [facility] [address] [id number] [place] [address]- 2584 Feb, [facility] [place] [facility] [address] [id number] [place] [address] Feb, [facility] [place] [facility] [address] [id number] [place] [address] Feb, [facility] [place] [facility] [address] [id number] [place] [address] Feb, [facility] [place] [facility] [address] [id number] [place] [address] Feb, [facility] [place] [facility] [address] [id number] [place] [address] Feb, [facility] [place] [facility] [address] [id number], [place] [address] Feb, [facility] [place] [facility] [address] [id number] [place] [address] Feb, [facility] [place] [facility] [address] [id number] [place] [address] Feb, [facility] [place] [facility] [address] [id number], [place] [address] Feb, [facility] [place] [facility] [address] [id number], [place] [address] 16 Feb, 2013 [facility] [address] [id number] [place] [address] 15 Feb, 2013 [facility] [place] [facility] [address] [id number] [place] [address] 15 Feb, 2013 [facility] [place] [facility] [address] [id number] [place] [address] 15 Feb, 2013 [facility] [place] [facility] [address] [id number] [place] [address] 15 Feb, 2013 [facility] [place] [facility] [address] [id number] [place] [address] Feb, [facility] [place] [facility] [address] [id number] [place] [address] Feb, [facility] [place] [facility] [address] [facility] [id number] [place] [address] Feb, [facility] [place] [facility] [address] [id number] [place] [address] Feb, [facility] [place] [facility] [address] [id number] [place] [address] Jan, [facility] [place] [facility] [address] [facility] [id number] [place] [address] 24 Jan, 2013 [facility] [place] [facility] [address] [id number] [place] [address] 19 Jan, 2013 [facility] [facility] [address] [id number] [place] [address] 18 Jan, 2013 [facility] [place] [facility] [address] [id number] [place] [address] 18 Jan, 2013 [facility] [place] [facility] [address] [id number] [place] [address] 18 Jan, 2013 [facility] [place] [facility] [address] [facility] 2001 [id number] [place] [address] 18 Jan, 2013 [facility] [place] [facility] [address] [id number] [place] [address] 17 Jan, 2013 [facility] [place] [facility] [address] [id number] [place] [address] Jan, [facility] [place] [facility] [address] [id number] [place] [address] Jan, [facility] [place] [facility] [address] [id number] [place] [address] Jan, [facility] [place] [facility] [address] [id number] [place] [address] Jan, [facility] [place] [facility] [address] [id number] [place] [address] Jan, [facility] [place] [facility] [address] [id number] [place] [address] Dec, [facility] [place] [facility] [address] [id number] [place] [address] Dec, [facility] [place] [facility] [address] [id number] [place] [address] Dec, [facility] [place] [facility] [address] [id number] [place] [address] Dec, [facility] [facility] [address] [facility] [id number] [place] [address] Dec, [facility] [place] [facility] [address] [id number] [place] [address] Dec, [facility] [place] [facility] [address] [id number] [place] [address] Nov, [facility] [place] [facility] [address] [id number] [place] [address] Nov, [facility] [place] [facility] [address] [id number] [place] [address] Nov, [facility] [place] [facility] [address] [id number] [place] [address] Nov, [facility] [id number] [address] Nov, [facility] [id number] [place] [address] Nov, [facility] [id number], [place] [address] 28 Oct, 2012 [facility] [id number], [place] [address] 27 Oct, 2012 [facility] [id number] [place] [address] Oct, [facility] [id number] [place] [address] Oct, [facility] [id number], [place] [address] Oct, [facility] [id number], [place] [address] 18 Oct, 2012 [facility] [address] [id number] [address] Oct, IMMUNIZATIONS No Known Immunizations SOCIAL HISTORY Never Assessed REASON FOR VISIT ALEXIA ROD PLAN OF CARE VITAL SIGNS MEDICATIONS Unknown [...]
--- OUTSIDE RECORDS SUMMARY | 2017-09-10 18:14 | XMS REPORT ---
Author Author DKADELITASAMUEL Organization [facility] Address [address] [place] [address] Care Team Providers Care Call Centre Supervisor Name Role Phone SAMUEL ROOT Unavailable PROBLEMS Type Condition ICD9-CM Code [id number] Code Onset Dates Condition Status SNOMED Code Problem Anxiety state F41.1 Active 929753985 Problem Depressive disorder, not elsewhere classified F32.9 Active 64446791 Problem ADHD (attention deficit hyperactivity disorder), combined type F90.2 Active 83196447 Problem Irritable bowel syndrome with diarrhea K58.0 Active 870422872 Problem Plantar wart of right foot B07.0 Active [id number] Problem Slow transit constipation K59.01 Active 74521952 Problem Rhinitis, unspecified type J31.0 Active 48179722 Problem Anxiety disorder, unspecified type F41.9 Active 569549274 Problem Major depressive disorder, single episode, mild F32.0 Active 89218920 ALLERGIES No Information ENCOUNTERS Encounter Location Date Diagnosis [facility] [id number] [place] [address] 63775- 8086 Aug, ADHD (attention deficit hyperactivity disorder), combined type F90.2 [facility] [id number] [place] [address] 62722- 0568 Jul, ADHD (attention deficit hyperactivity disorder), combined type F90.2 [facility] [id number] [place] [address] 68278- 2932 June, ADHD (attention deficit hyperactivity disorder), combined type F90.2 ; Major depressive disorder, single episode, mild F32.0 and Anxiety disorder, unspecified type F41.9 [facility] [address] [address] 8[address] June, [facility] [id number] [place] [address] 05549- 6253 June, ADHD (attention deficit hyperactivity disorder), combined type F90.2 [facility] [address] [address] 2325 May, [facility] [id number] [address] 4[address] May, ADHD (attention deficit hyperactivity disorder), combined type F90.2 ; Major depressive disorder, single episode, mild F32.0 and Anxiety disorder, unspecified type F41.9 [facility] [id number] [address] 9375 May, Anxiety disorder, unspecified type F41.9 [facility] [id number] [address] 5392 Apr, [facility] [id number] [address] Apr, Anxiety disorder, unspecified type F41.9 [facility] [address] [address] 9728 Apr, Anxiety disorder, unspecified type F41.9 ; Major depressive disorder, single episode, mild F32.0 and ADHD (attention deficit hyperactivity disorder), combined type F90.2 [facility] [address] [address] 1606 Apr, [facility] [id number] [address] 9011 Apr, ADHD (attention deficit hyperactivity disorder), combined type F90.2 ; Anxiety state F41.1 ; Depressive disorder, not elsewhere classified F32.9 ; Major depressive disorder, single episode, mild F32.0 and Anxiety disorder, unspecified type F41.9 [facility] [id number] [address] 9909 Mar, ADHD (attention deficit hyperactivity disorder), combined type F90.2 [facility] [id number] [place] [address] 30785- 7826 20 Mar, 2017 Nausea R11.0 [place] [id number] [place] [address] 09726- 3425 13 Mar, 2017 Screening for STD sexually transmitted disease Z11.3 ; Vaginal candidiasis B37.3 and Irritable bowel syndrome with diarrhea K58.0 [place] [facility] [id number] [place] [address] 11772- 0349 04 Mar, 2017 [facility] [id number] [place] [address] 44935- 4601 Feb, ADHD (attention deficit hyperactivity disorder), combined type F90.2 [facility] [facility] [id number] [place] [address] 65709- 5999 Feb, Depressive disorder, not elsewhere classified F32.9 ; Anxiety state F41.1 and ADHD (attention deficit hyperactivity disorder), combined type F90.2 [place] [facility] [id number] [place] [address] 97891- 3183 Feb, Depressive disorder, not elsewhere classified F32.9 ; Anxiety state F41.1 and ADHD (attention deficit hyperactivity disorder), combined type F90.2 [place] [id number] [place] [address] 74308- 0513 Feb, ADHD (attention deficit hyperactivity disorder), combined type F90.2 [facility] [id number] [place] [address] 25224 -1402 Jan, Other viral agents as the cause of diseases classified elsewhere B97.89 and Acute upper respiratory infection, unspecified J06.9 [place] [address] [place] [address] 43934- 2707 Jan, ADHD (attention deficit hyperactivity disorder), combined type F90.2 ; Major depressive disorder, single episode, mild F32.0 and Anxiety disorder, unspecified type F41.9 [place] [id number] [place] [address] 26157- 6571 Jan, [place] [facility] [address], [place] [address]- 6742 Jan, ADHD (attention deficit hyperactivity disorder), combined type F90.2 ; Major depressive disorder, single episode, mild F32.0 and Anxiety disorder, unspecified type F41.9 [place] [facility] [id number] [place] [address] 47376- 0865 Dec, Irritable bowel syndrome with diarrhea K58.0 and Lower abdominal pain R10.30 [facility] [facility] [id number] [place] [address] 70791- 3250 Dec, Hospital discharge follow-up Z09 ; Mesenteric adenitis I88.0 ; IBD (inflammatory bowel disease) K52.9 and Nausea R11.0 [place] [facility] [id number] [place] [address] 12860- 9478 Nov, ADHD (attention deficit hyperactivity disorder), combined type F90.2 ; Major depressive disorder, single episode, mild F32.0 and Anxiety disorder, unspecified type F41.9 [place] [facility] [id number] [place] [address] 38920- 7146 Nov, Anxiety state F41.1 ; ADHD (attention deficit hyperactivity disorder), combined type F90.2 ; Major depressive disorder, single episode, mild F32.0 and Anxiety disorder, unspecified type F41.9 [place] [address] [place] [address] 71246- 4714 Oct, Anxiety state F41.1 ; ADHD (attention deficit hyperactivity disorder), combined type F90.2 ; Major depressive disorder, single episode, mild F32.0 and Anxiety disorder, unspecified type F41.9 [place] [facility] [id number] [place] [address] 07455- 8094 Oct, ADHD (attention deficit hyperactivity disorder), combined type F90.2 ; Major depressive disorder, single episode, mild F32.0 and Anxiety disorder, unspecified type F41.9 [place] [facility] [id number] [place] [address] 10373- 3787 Oct, Major depressive disorder, single episode, mild F32.0 ; Anxiety state F41.1 ; ADHD (attention deficit hyperactivity disorder), combined type F90.2 and Depressive disorder, not elsewhere classified F32.9 [facility] [id number] [place] [address] 59405 -6495 16 Oct, 2016 [facility] [id number] [place] [address] 23967 -8498 Oct, Cellulitis L03.90 and Plantar wart of right foot B07.0 [facility] [id number] [place] [address] 36221- 3904 Aug, ADHD (attention deficit hyperactivity disorder), combined type F90.2 ; Major depressive disorder, single episode, mild F32.0 and Anxiety disorder, unspecified type F41.9 [facility] [id number] [place] [address] 50195- 9265 Aug, [facility] [id number] [place] [address] 16525- 3255 Jul, ADHD (attention deficit hyperactivity disorder), combined type F90.2 [place] [facility] [id number] [place] [address] 44723- 0962 Jul, Mesenteric adenitis I88.0 [facility] [id number] [place] [address] 58355- 3420 June, [facility] [id number] [place] [address] 96066 -4207 June, Lower abdominal pain R10.30 [facility] [id number] [place] [address] 89330- 9922 June, [place] [id number] [place] [address] 92460- 6339 June, ADHD (attention deficit hyperactivity disorder), combined type F90.2 and Major depressive disorder, single episode, mild F32.0 [place] [address] [place] [address]- 6760 May, [facility] [id number] [place] [address] 80641- 0386 May, ADHD (attention deficit hyperactivity disorder), combined type F90.2 and Major depressive disorder, single episode, mild F32.0 [facility] [address] 45480 -2173 Apr, Abdominal pain R10.9 and Gastroenteritis and colitis, viral A08.4 [place] [address] 00942- 8537 Apr, [facility] [address] 57967 -5214 Mar, Acute urticaria L50.8 [place] [address] 57276- 3855 Mar, [place] [address] 31029- 6876 Feb, [facility] [id number] [place] [address] 81688 -1504 Feb, Gastroenteritis K52.9 [place] [id number] [place] [address] 22059- 1267 Feb, Irritant contact dermatitis due to cosmetics L24.3 [place] [id number] [place] [address] 06188- 1531 Jan, [place] [id number] [place] [address] 79523- 4390 Jan, [place] [address] 09611- 4361 Jan, ADHD (attention deficit hyperactivity disorder), combined type F90.2 and Major depressive disorder, single episode, mild F32.0 [facility] [address] 45409 -1806 Dec, Flexural eczema L20.82 [facility] [id number] [place] [address] 66207- 5652 Dec, Encounter for test Z32.00 [facility] [address] 20915- 0906 Dec, [facility] [address] 64574- 3867 Dec, [facility] [address] 26390- 7537 Dec, [facility] [address] 90152 -3168 Nov, Sore throat J02.9 and Pharyngitis, unspecified etiology J02.9 [facility] [address] 47060- 8503 Nov, [facility] [address] 41556- 2538 Nov, [facility] [address] 11256- 2386 Nov, Generalized abdominal pain R10.84 and Slow transit constipation K59.01 [facility] [id number] [place] [address] [id number] Nov, Pharyngitis, unspecified etiology J02.9 and Rhinitis, unspecified type J31.0 [facility] [address] 41507- 1765 Oct, Depressive disorder, not elsewhere classified F32.9 and ADHD (attention deficit hyperactivity disorder), combined type F90.2 [facility] [address] 22661- 1620 Oct, [facility] [id number] [place] [address] 42805- 0222 Oct, [facility] [address] 02660 -9829 Oct, Strep throat J02.0 [facility] [address] [address]- 4291 Oct, [facility] [id number] [place] [address] 91118- 8268 Oct, Well woman exam with routine gynecological exam Z01.419 and Screening for STD sexually transmitted disease Z11.3 [place] [id number] [place] [address] 76471- 7293 Sep, ADHD (attention deficit hyperactivity disorder), combined type F90.2 ; Anxiety state F41.1 and Depressive disorder, not elsewhere classified F32.9 [place] [address] [place] [address] 75515- 8439 Sep, ADHD (attention deficit hyperactivity disorder), combined type F90.2 and Depressive disorder, not elsewhere classified F32.9 [place] [id number] [place] [address] 41466- 8340 Aug, [facility] [id number] [place] [address] 86667- 3788 Aug, ADHD (attention deficit hyperactivity disorder), combined type F90.2 and Depressive disorder, not elsewhere classified F32.9 [place] [address] [address]- 8860 Aug, ADHD (attention deficit hyperactivity disorder), combined type F90.2 ; Anxiety state F41.1 and Depressive disorder, not elsewhere classified F32.9 [facility] [address] [address]- 6231 Aug, [facility] [id number] [place] [address] 02398- 2009 Aug, [facility] [address] [address]- 2939 Jul, ADHD (attention deficit hyperactivity disorder), combined type F90.2 ; Depressive disorder, not elsewhere classified F32.9 and Anxiety state F41.1 [facility] [id number] [place] [address] 50250- 9554 Jul, [facility] [id number] [place] [address] 65849- 9816 Jul, ADHD (attention deficit hyperactivity disorder), combined type F90.2 ; Anxiety state F41.1 and Depressive disorder, not elsewhere classified F32.9 [facility] [address] 59664- 7576 June, [facility] [id number] [place] [address] [id number] June, Constipation K59.00 [facility] [address] 43574- 1889 May, Constipation K59.00 [facility] [address] 39024 -6959 May, Irritable bowel syndrome with diarrhea K58.0 [facility] [id number] [place] [address] 52362- 0092 May, [facility] [id number] [place] [address] 33280- 6311 May, [facility] [id number] [place] [address] 16788- 4790 May, [facility] [id number] [place] [address] 30655- 2599 May, [facility] [id number] [place] [address] 79725- 6323 Jan, [facility] [id number] [place] [address] 93430- 7106 Jan, [facility] [id number] [place] [address] 91612- 7685 Jan, [facility] [id number] [place] [address] 34382- 1384 Jan, [facility] [place] [facility] [address] [id number] [place] [address]- 9924 Jan, [facility] [place] [facility] [address] [id number] [place] [address]- 9356 Jan, [facility] [place] [facility] [address] [id number] [place] [address]- 9715 Nov, [facility] [place] [facility] [address] [id number] [place] [address]- 3747 Nov, [facility] [place] [facility] [address] [id number] [place] [address]- 2194 Oct, [facility] [place] [facility] [address] [id number] [place] [address]- 8327 Oct, [facility] [place] [facility] [address] [id number] [place] [address]- 7772 Sep, [facility] [place] [facility] [address] [id number] [place] [address]- 7865 Sep, [facility] [place] [facility] [address] [id number] [place] [address]- 6244 Aug, [facility] [place] [facility] [address] [id number] [place] [address]- 4427 Aug, [facility] [place] [facility] [address] [id number] [place] [address]- 0498 Aug, [facility] [place] [facility] [address] [id number] [place] [address]- 5452 Aug, [facility] [place] [facility] [address] [id number] [place] [address]- 5273 Aug, [facility] [place] [facility] [address] [id number] [place] [address]- 8157 Aug, [facility] [place] [facility] [address] [id number] [place] [address]- 5061 Aug, [facility] [place] [facility] [address] [id number] [place] [address]- 5463 Aug, [facility] [place] [facility] [address] [id number] [place] [address]- 7643 Jul, [facility] [place] [facility] [address] [id number] [place] [address]- 3048 Jul, [facility] [place] [facility] [address] [id number] [place] [address]- 5844 Jul, [facility] [place] [facility] [address] [id number] [place] [address]- 8722 Jul, [facility] [place] [facility] [address] [id number] [place] [address]- 3501 Jul, [facility] [place] [facility] [address] [id number] [place] [address]- 0315 Jul, [facility] [place] [facility] [address] [id number] [place] [address]- 9016 Jul, [facility] [place] [facility] [address] [id number] [place] [address]- 2999 Jul, [facility] [place] [facility] [address] [id number] [place] [address]- 4371 Jul, [facility] [place] [facility] [address] [id number] [place] [address]- 1908 June, [facility] [place] [facility] [address] [id number] [place] [address]- 8585 June, [facility] [place] [facility] [address] [id number] [place] [address]- 7155 May, [facility] [place] [facility] [address] [id number] [place] [address]- 7574 May, [facility] [place] [facility] [address] [id number] [place] [address]- 1896 May, [facility] [place] [facility] [address] [id number] [place] [address]- 5968 May, [facility] [place] [facility] [address] [id number] [place] [address]- 5369 May, [facility] [place] [facility] [address] [id number] [place] [address]- 1954 May, [facility] [place] [facility] [address] [id number] [place] [address]- 1780 May, [facility] [place] [facility] [address] [id number] [place] [address]- 8737 May, [facility] [place] [facility] [address] [id number] [place] [address]- 5961 May, [facility] [place] [facility] [address] [id number] [place] [address]- 8162 May, [facility] [place] [facility] [address] [id number] [place] [address]- 9797 May, [facility] [place] [facility] [address] [id number] [place] [address]- 0565 May, [facility] [place] [facility] [address] [id number] [place] [address]- 0707 Apr, [facility] [place] [facility] [address] [id number] [place] [address]- 0243 Apr, [facility] [place] [facility] [address] [id number] [place] [address]- 9048 Apr, [facility] [place] [facility] [address] [id number] [place] [address]- 3641 Apr, [facility] [place] [facility] [address] [id number] [place] [address]- 8612 Mar, [facility] [place] [facility] [address] [id number] [place] [address]- 4217 Mar, [facility] [place] [facility] [address] [id number] [place] 4195 Mar, [facility] [place] [facility] [address] [id number] [place] [address]- 8908 Mar, 2013 [facility] [place] [facility] [address] [id number] [place] [address]- 2693 Mar, [facility] [place] [facility] [address] [id number] [place] [address]- 5149 Mar, 2013 [facility] [place] [facility] [address] [id number] [place] [address]- 9855 Mar, 2013 [facility] [place] [facility] [address] [id number] [place] [address]- 9504 Mar, 2013 [facility] [place] [facility] [address] [id number] [place] [address]- 2012 Mar, 2013 [facility] [place] [facility] [address] [facility] [id number] [place] [address]- 0245 Mar, 2013 [facility] [place] [facility] [id number] [place] [address]- 7014 14 Mar, 2013 [facility] [place] [facility] [address] [id number] [place] [address]- 0069 14 Mar, 2013 [facility] [place] [facility] [address] [facility] [id number] [place] [address]- 2792 Mar, [facility] [place] [facility] [address] [facility] [id number] [place] [address]- 6693 13 Mar, 2013 [facility] [place] [facility] [address] [facility] [id number] [address]- 0703 Mar, 2013 [facility] [place] [facility] [address] [facility] [id number] [place] [address]- 2464 Mar, [facility] [place] [facility] [address] [facility] [id number] [place] [address]- 3911 Mar, 2013 [facility] [place] [facility] [address] [facility] [id number] [place] [address] 11 Mar, 2013 [facility] [place] [facility] [address] [facility] [id number] [address] Mar, [facility] [place] [facility] [address] [id number] [place] [address] Mar, [facility] [place] [facility] [address] [id number] [place] [address] Feb, [facility] [place] [facility] [address] [id number] [place] [address] Feb, [facility] [place] [facility] [address] [id number] [place] [address] Feb, [facility] [place] [facility] [address] [id number] [place] [address] Feb, [facility] [place] [facility] [address] [id number] [place] [address] Feb, [facility] [place] [facility] [address] [id number] [place] [address] Feb, [facility] [place] [facility] [address] [id number] [place] [address] Feb, [facility] [place] [facility] [address] [id number] [place] [address] Feb, [facility] [place] [facility] [address] [id number] [place] [address] Feb, [facility] [place] [facility] [address] [id number] [place] [address] Feb, [facility] [place] [facility] [address] [id number] [place] [address] Feb, [facility] [place] [facility] [address] [id number] [place] [address] Feb, [facility] [place] [facility] [address] [id number] [place] [address] Feb, [facility] [place] [facility] [address] [id number] [place] [address] Feb, [facility] [place] [facility] [address] [id number] [place] [address] 16 Feb, 2013 [facility] [address] [id number] [place] [address] 15 Feb, 2013 [facility] [place] [facility] [address] [id number] [place] [address] 15 Feb, 2013 [facility] [address] [id number] [place] [address] Feb, [facility] [place] [facility] [address] [id number] [place] [address] Feb, [facility] [address] [id number] [place] [address] Feb, [facility] [address] [id number] [place] [address] Feb, [facility] [address] [id number] [place] [address] Feb, [facility] [address] [id number] [place] [address] Feb, [facility] [address] [id number] [place] [address] Jan, [facility] [address] [id number] [place] [address] 24 Jan, 2013 [facility] [place] [facility] [address] [id number] [place] [address] Jan, [facility] [place] [facility] [address] [id number] [place] [address] 18 Jan, 2013 [facility] [place] [facility] [address] [id number] [place] [address] Jan, [facility] [place] [facility] [address] [id number] [place] [address] Jan, [facility] [place] [facility] [address] [id number] [place] [address] Jan, [facility] [address] [id number] [place] [address] Jan, [facility] [place] [facility] [address] [id number] [place] [address] Jan, [facility] [place] [facility] [address] [id number] [place] [address] Jan, [facility] [place] [facility] [address] [id number] [place] [address] Jan, [facility] [address] [id number] [place] [address] Jan, [facility] [place] [facility] [address] [id number] [place] [address] Jan, [facility] [place] [facility] [address] [id number] [place] [address] Dec, [facility] [place] [facility] [address] [id number], [place] [address] Dec, [facility] [place] [facility] [address] [id number] [place] [address] Dec, [facility] [place] [facility] [address] [id number], [place] [address] Dec, [facility] [place] [facility] [address] [id number], [place] [address] Dec, [facility] [place] [facility] [address] [id number], [place] [address] Dec, [facility] [place] [facility] [address] [id number] [place] [address] Nov, [facility] [place] [facility] [address] [id number], [place] [address] Nov, [facility] [place] [facility] [address] [id number], [place] [address] Nov, [facility] [place] [facility] [address] [id number], [place] [address] Nov, [facility] [id number], [place] [address] Nov, [facility] [id number] Nov, [facility] [id number], [place] [address] 28 Oct, 2012 [facility] [id number], [place] [address] 27 Oct, 2012 [facility] [id number] [place] [address] 26 Oct, 2012 [facility] [id number] [place] [address] Oct, [facility] [id number], [place] [address] Oct, [facility] [id number], [place] [address] 18 Oct, 2012 [facility] [id number], [place] [address] Oct, IMMUNIZATIONS No Known Immunizations SOCIAL HISTORY Never Assessed REASON FOR VISIT Medication refill request PLAN OF CARE VITAL SIGNS MEDICATIONS Medication Instructions Dosage Frequency Start Date End Date Duration Status Ondansetron 4 MG Orally every 8 hrs [...]
--- OUTSIDE RECORDS SUMMARY | 2017-09-10 18:15 | XMS REPORT ---
Author Author JENNIFER HARIKA [facility] Address [address] [place] [address] Care Team Providers Care Chemical Unit Operator Name Role Phone JENNIFERHARIKA Unavailable PROBLEMS Type Condition ICD9-CM Code [id number] Code Onset Dates Condition Status SNOMED Code Problem Anxiety state F41.1 Active 815385273 Problem Depressive disorder, not elsewhere classified F32.9 Active 28582642 Problem ADHD (attention deficit hyperactivity disorder), combined type F90.2 Active 42258631 Problem Irritable bowel syndrome with diarrhea K58.0 Active 297540484 Problem Plantar wart of right foot B07.0 Active [id number] Problem Slow transit constipation K59.01 Active 91285173 Problem Rhinitis, unspecified type J31.0 Active 11658203 Problem Anxiety disorder, unspecified type F41.9 Active 084174163 Problem Major depressive disorder, single episode, mild F32.0 Active 38723398 ALLERGIES No Information ENCOUNTERS Encounter Location Date Diagnosis [place] [id number] [place] [address] 29400- 2974 Jul, [facility] [id number] [place] [address] 47012- 0604 Jul, ADHD (attention deficit hyperactivity disorder), combined type F90.2 [facility] [id number] [place] [address] 79313- 9030 June, ADHD (attention deficit hyperactivity disorder), combined type F90.2 ; Major depressive disorder, single episode, mild F32.0 and Anxiety disorder, unspecified type F41.9 [facility] [id number] [place] [address] 44002- 1936 June, [facility] [id number] [place] [address] 96730- 5697 June, ADHD (attention deficit hyperactivity disorder), combined type F90.2 [facility] [address] [address] 2[address] May, [facility] [address] [address] 8969 May, ADHD (attention deficit hyperactivity disorder), combined type F90.2 ; Major depressive disorder, single episode, mild F32.0 and Anxiety disorder, unspecified type F41.9 [facility] [address] [place] [address] 46[address] May, Anxiety disorder, unspecified type F41.9 [facility] [id number] [address] 3290 Apr, [facility] [id number] [address] 1596 Apr, Anxiety disorder, unspecified type F41.9 [facility] [address], [place] [address]- 9077 Apr, Anxiety disorder, unspecified type F41.9 ; Major depressive disorder, single episode, mild F32.0 and ADHD (attention deficit hyperactivity disorder), combined type F90.2 [facility] [address], [place] [address] 9030 Apr, [facility] [address], [place] [address]- 0610 Apr, ADHD (attention deficit hyperactivity disorder), combined type F90.2 ; Anxiety state F41.1 ; Depressive disorder, not elsewhere classified F32.9 ; Major depressive disorder, single episode, mild F32.0 and Anxiety disorder, unspecified type F41.9 [facility] [address], [place] [address] 6318 Mar, ADHD (attention deficit hyperactivity disorder), combined type F90.2 [facility] [address] [address]- 6715 Mar, Nausea R11.0 [facility] [address], [place] [address] 5140 13 Mar, 2017 Screening for STD sexually transmitted disease Z11.3 ; Vaginal candidiasis B37.3 and Irritable bowel syndrome with diarrhea K58.0 [facility] [id number] [address] 0158 Mar, [facility] [id number] [place] [address] 91450- 7155 Feb, ADHD (attention deficit hyperactivity disorder), combined type F90.2 [place] [id number] [place] [address] 95522- 4860 Feb, Depressive disorder, not elsewhere classified F32.9 ; Anxiety state F41.1 and ADHD (attention deficit hyperactivity disorder), combined type F90.2 [place] [id number] [place] [address] 32150- 7083 Feb, Depressive disorder, not elsewhere classified F32.9 ; Anxiety state F41.1 and ADHD (attention deficit hyperactivity disorder), combined type F90.2 [place] [id number] [place] [address] 09762- 0994 Feb, ADHD (attention deficit hyperactivity disorder), combined type F90.2 [facility] [address], [place] [address] Jan, Other viral agents as the cause of diseases classified elsewhere B97.89 and Acute upper respiratory infection, unspecified J06.9 [facility] [address], [place] [address]- 9429 Jan, ADHD (attention deficit hyperactivity disorder), combined type F90.2 ; Major depressive disorder, single episode, mild F32.0 and Anxiety disorder, unspecified type F41.9 [facility] [address] [place] [address] 83669- 2767 Jan, [facility] [id number] [address]- 0776 Jan, ADHD (attention deficit hyperactivity disorder), combined type F90.2 ; Major depressive disorder, single episode, mild F32.0 and Anxiety disorder, unspecified type F41.9 [place] [id number] [place] [address] 99304- 0227 Dec, Irritable bowel syndrome with diarrhea K58.0 and Lower abdominal pain R10.30 [place] [id number] [place] [address] 64455- 2797 09 Dec, 2016 Hospital discharge follow-up Z09 ; Mesenteric adenitis I88.0 ; IBD (inflammatory bowel disease) K52.9 and Nausea R11.0 [place] [id number] [place] [address] 31264- 0776 Nov, ADHD (attention deficit hyperactivity disorder), combined type F90.2 ; Major depressive disorder, single episode, mild F32.0 and Anxiety disorder, unspecified type F41.9 [place] [id number] [place] [address] 35209- 8840 Nov, Anxiety state F41.1 ; ADHD (attention deficit hyperactivity disorder), combined type F90.2 ; Major depressive disorder, single episode, mild F32.0 and Anxiety disorder, unspecified type F41.9 [place] [address] [place] [address] 89879- 3562 Oct, Anxiety state F41.1 ; ADHD (attention deficit hyperactivity disorder), combined type F90.2 ; Major depressive disorder, single episode, mild F32.0 and Anxiety disorder, unspecified type F41.9 [place] [address] [place] [address] 91318- 1122 Oct, ADHD (attention deficit hyperactivity disorder), combined type F90.2 ; Major depressive disorder, single episode, mild F32.0 and Anxiety disorder, unspecified type F41.9 [place] [address] [place] [address] 66551- 3881 Oct, Major depressive disorder, single episode, mild F32.0 ; Anxiety state F41.1 ; ADHD (attention deficit hyperactivity disorder), combined type F90.2 and Depressive disorder, not elsewhere classified F32.9 [facility] [id number] [place] [address] 29456 -4132 16 Oct, 2016 [facility] [id number] [place] [address] 10906 -5902 Oct, Cellulitis L03.90 and Plantar wart of right foot B07.0 [facility] [id number] [place] [address] 25583- 1757 Aug, ADHD (attention deficit hyperactivity disorder), combined type F90.2 ; Major depressive disorder, single episode, mild F32.0 and Anxiety disorder, unspecified type F41.9 [facility] [id number] [place] [address] 91627- 8828 Aug, [facility] [id number] [place] [address] 17585- 1770 Jul, ADHD (attention deficit hyperactivity disorder), combined type F90.2 [facility] [id number] [place] [address] 72549- 7004 Jul, Mesenteric adenitis I88.0 [facility] [id number] [place] [address] 53951- 0278 June, [facility] [id number] [place] [address] 53234 -7508 June, Lower abdominal pain R10.30 [facility] [id number] [place] [address] 54116- 5125 June, [facility] [address] 05488- 9063 June, ADHD (attention deficit hyperactivity disorder), combined type F90.2 and Major depressive disorder, single episode, mild F32.0 [facility] [id number] [place] [address] 71258- 7173 May, [facility] [id number] [place] [address] 68990- 2849 May, ADHD (attention deficit hyperactivity disorder), combined type F90.2 and Major depressive disorder, single episode, mild F32.0 [facility] [id number] [place] [address] 04964 -2078 Apr, Abdominal pain R10.9 and Gastroenteritis and colitis, viral A08.4 [facility] [id number] [place] [address] 17245- 1553 Apr, [facility] [address] 68579 -7581 Mar, Acute urticaria L50.8 [place] [address] [id number] [place] [address] 91660- 3717 Mar, [facility] [address] 93184- 5508 Feb, [facility] [id number] [place] [address] 18629 -6415 Feb, Gastroenteritis K52.9 [place] [address] [id number] [place] [address] 51699- 4390 Feb, Irritant contact dermatitis due to cosmetics L24.3 [place] [address] [id number] [place] [address] 26470- 3683 Jan, [facility] [id number] [place] [address] 20788- 3129 Jan, [place] [address] [id number] [place] [address] 02233- 6153 Jan, ADHD (attention deficit hyperactivity disorder), combined type F90.2 and Major depressive disorder, single episode, mild F32.0 [facility] [id number] [place] [address] 21755 -5639 Dec, Flexural eczema L20.82 [place] [address] [id number] [place] [address] 54968- 6569 Dec, Encounter for test Z32.00 [facility] [address] 98793- 3936 Dec, [facility] [id number] [place] [address] 84908- 4030 Dec, [facility] [address] 59607- 0479 Dec, [facility] [address] 42878 -1589 Nov, Sore throat J02.9 and Pharyngitis, unspecified etiology J02.9 [facility] [address] 93000- 2570 Nov, [facility] [address] 15437- 1251 Nov, [facility] [address] 85714- 2243 Nov, Generalized abdominal pain R10.84 and Slow transit constipation K59.01 [facility] [id number] [place] [address] [id number] Nov, Pharyngitis, unspecified etiology J02.9 and Rhinitis, unspecified type J31.0 [facility] [id number] [place] [address] 96802- 0885 Oct, Depressive disorder, not elsewhere classified F32.9 and ADHD (attention deficit hyperactivity disorder), combined type F90.2 [facility] [address] 76322- 4515 Oct, [facility] [id number] [place] [address] 37398- 4189 Oct, [facility] [id number] [place] [address] 19938 -2658 Oct, Strep throat J02.0 [facility] [address], [place] [address]- 1754 Oct, [facility] [address], [place] [address]- 6546 Oct, Well woman exam with routine gynecological exam Z01.419 and Screening for STD sexually transmitted disease Z11.3 [facility] [address] [id number] [place] [address] 32855- 8373 Sep, ADHD (attention deficit hyperactivity disorder), combined type F90.2 ; Anxiety state F41.1 and Depressive disorder, not elsewhere classified F32.9 [facility] [address], [place] [address]- 7120 Sep, ADHD (attention deficit hyperactivity disorder), combined type F90.2 and Depressive disorder, not elsewhere classified F32.9 [facility] [address], [place] [address]- 3023 Aug, [facility] [id number] [place] [address] 81626- 6595 Aug, ADHD (attention deficit hyperactivity disorder), combined type F90.2 and Depressive disorder, not elsewhere classified F32.9 [facility] [address], [place] [address]- 4497 Aug, ADHD (attention deficit hyperactivity disorder), combined type F90.2 ; Anxiety state F41.1 and Depressive disorder, not elsewhere classified F32.9 [facility] [address], [place] [address]- 4726 Aug, [facility] [address], [place] [address]- 6394 Aug, [facility] [id number] [address]- 6159 Jul, ADHD (attention deficit hyperactivity disorder), combined type F90.2 ; Depressive disorder, not elsewhere classified F32.9 and Anxiety state F41.1 [facility] [id number] [place] [address] 61908- 4885 Jul, [facility] [id number] [place] [address] 01167- 6227 Jul, ADHD (attention deficit hyperactivity disorder), combined type F90.2 ; Anxiety state F41.1 and Depressive disorder, not elsewhere classified F32.9 [facility] [address] 22069- 9204 June, [facility] [id number] [place] [address] [id number] June, Constipation K59.00 [facility] [address] 35838- 8838 May, Constipation K59.00 [facility] [id number] [place] [address] 42613 -8878 May, Irritable bowel syndrome with diarrhea K58.0 [facility] [id number] [place] [address] 33351- 6072 May, [facility] [id number] [place] [address] 36745- 9685 May, [facility] [id number] [place] [address] 81263- 8778 May, [facility] [id number] [place] [address] 72218- 7881 May, [facility] [id number] [place] [address] 70440- 2673 Jan, [facility] [id number] [place] [address] 94021- 0941 Jan, [facility] [id number] [place] [address] 24776- 5354 Jan, [facility] [id number] [place] [address] 15022- 3690 Jan, [facility] [place] [facility] [address] [id number] [place] [address]- 8887 Jan, [facility] [place] [facility] [address] [id number] [place] [address]- 4423 Jan, [facility] [place] [facility] [address] [id number] [place] [address]- 5542 Nov, [facility] [place] [facility] [address] [id number] [place] [address]- 7132 Nov, [facility] [place] [facility] [address] [id number] [place] [address]- 3227 Oct, [facility] [place] [facility] [address] [id number] [place] [address]- 5379 Oct, [facility] [place] [facility] [address] [id number] [place] [address]- 0571 Sep, [facility] [place] [facility] [address] [id number] [place] [address]- 8795 Sep, [facility] [place] [facility] [address] [id number] [place] [address]- 5997 Aug, [facility] [place] [facility] [address] [id number] [place] [address]- 1023 Aug, [facility] [place] [facility] [address] [id number] [place] [address]- 8070 Aug, [facility] [place] [facility] [address] [id number] [place] [address]- 4227 Aug, [facility] [place] [facility] [address] [id number] [place] [address]- 5534 Aug, [facility] [place] [facility] [address] [id number] [place] [address]- 8146 Aug, [facility] [place] [facility] [address] [id number] [place] [address]- 6030 Aug, [facility] [place] [facility] [address] [id number] [place] [address]- 1944 Aug, [facility] [place] [facility] [address] [id number] [place] [address]- 0875 Jul, [facility] [place] [facility] [address] [id number] [place] [address]- 9823 Jul, [facility] [place] [facility] [address] [id number] [place] [address]- 9255 Jul, [facility] [place] [facility] [address] [id number] [place] [address]- 2054 Jul, [facility] [place] [facility] [address] [id number] [place] [address]- 3644 Jul, [facility] [place] [facility] [address] [id number] [place] [address]- 3081 Jul, [facility] [place] [facility] [address] [id number] [place] [address]- 6941 Jul, [facility] [place] [facility] [address] [id number] [place] [address]- 4763 Jul, [facility] [place] [facility] [address] [id number] [place] [address]- 3772 Jul, [facility] [place] [facility] [address] [id number] [place] [address]- 8650 June, [facility] [place] [facility] [address] [id number] [place] [address]- 1313 June, [facility] [place] [facility] [address] [id number], [place] [address]- 2253 May, [facility] [place] [facility] [address] [id number] [place] [address]- 7671 May, [facility] [place] [facility] [address] [id number] [place] [address]- 2246 May, [facility] [place] [facility] [address] [id number] [place] [address]- 0489 May, [facility] [place] [facility] [address] [id number] [place] [address]- 0068 May, [facility] [address] [id number] [place] [address]- 0197 May, [facility] [place] [facility] [address] [id number] [place] [address]- 7136 May, [facility] [place] [facility] [address] [id number] [place] [address]- 2576 May, [facility] [place] [facility] [address] [id number] [place] [address]- 8760 May, [facility] [place] [facility] [address] [id number] [place] [address]- 1236 May, [facility] [place] [facility] [address] [id number] [place] [address]- 2344 May, [facility] [place] [facility] [address] [id number] [place] [address]- 0558 May, [facility] [place] [facility] [address] [id number] [place] [address]- 1528 Apr, [facility] [place] [facility] [address] [id number] [place] [address]- 2411 Apr, [facility] [place] [facility] [address] [id number] [place] [address]- 8215 Apr, [facility] [place] [facility] [address] [id number] [place] [address]- 6779 Apr, [facility] [place] [facility] [address] [id number] [place] 3806 Mar, [facility] [place] [facility] [address] [id number] [place] [address]- 1746 Mar, [facility] [place] [facility] [address] [id number] [place] 3686 Mar, [facility] [place] [facility] [address] [id number] [place] 9072 Mar, [facility] [place] [facility] [address] [id number] [place] [address]- 1580 Mar, [facility] [place] [facility] [address] [id number] [place] [address]- 6106 Mar, [facility] [place] [facility] [address] [facility] [place] [id number] [place] [address]- 6047 Mar, [facility] [place] [facility] [address] [facility] [place] [id number] [place] [address]- 2890 Mar, 2013 [facility] [place] [facility] [address] [id number] [place] [address]- 1013 Mar, [facility] [place] [facility] [address] [facility] [place] [id number] [place] [address]- 7619 Mar, [facility] [place] [facility] [address] [facility] [place] [place] [id number] [place] [address]- 7312 14 Mar, 2013 [facility] [place] [facility] [address] [facility] [place] [place] [id number] [place] [address]- 9194 14 Mar, 2013 [facility] [place] [facility] [address] [facility] [place] [id number] [place] [address]- 5954 13 Mar, 2013 [facility] [place] [facility] [address] [facility] [id number] [place] [address]- 8586 13 Mar, 2013 [facility] [place] [facility] [address] [facility] [place] [place] [id number] [place] [address]- 6729 Mar, 2013 [facility] [place] [facility] [address] [facility] [place] [place] [id number] [place] [address]- 3215 Mar, [facility] [place] [facility] [address] [facility] [place] [place] [id number] [place] [address]- 7443 Mar, [facility] [place] [facility] [address] [facility] [place] [id number] [place] [address] Mar, 2013 [facility] [place] [facility] [address] [facility] [place] [id number] [place] [address] Mar, [facility] [place] [facility] [address] [id number] [place] [address] Mar, [facility] [place] [facility] [address] [id number] [place] [address] Feb, [facility] [place] [facility] [address] [id number] [place] [address] Feb, [facility] [place] [facility] [address] [id number] [place] [address] Feb, [facility] [place] [facility] [address] [id number] [place] [address] Feb, [facility] [place] [facility] [address] [id number] [place] [address] Feb, [facility] [place] [facility] [address] [id number] [place] [address] Feb, [facility] [place] [facility] [address] [id number] [place] [address] Feb, [facility] [place] [facility] [address] [id number] [place] [address] Feb, [facility] [place] [facility] [address] [id number] [place] [address] Feb, [facility] [place] [facility] [address] [id number] [place] [address] Feb, [facility] [place] [facility] [address] [id number], [place] [address] Feb, [facility] [place] [facility] [address] [id number] [place] [address] Feb, [facility] [place] [facility] [address] [id number] [place] [address] Feb, [facility] [place] [facility] [address] [id number], [place] [address] Feb, [facility] [place] [facility] [address] [id number], [place] [address] 16 Feb, 2013 [facility] [address] [id number] [place] [address] 15 Feb, 2013 [facility] [place] [facility] [address] [id number] [place] [address] 15 Feb, 2013 [facility] [place] [facility] [address] [id number] [place] [address] 15 Feb, 2013 [facility] [place] [facility] [address] [id number] [place] [address]- [address] 15 Feb, 2013 [facility] [place] [facility] [address] [id number] [place] [address] Feb, [facility] [place] [facility] [address] [id number] [place] [address] Feb, [facility] [place] [facility] [address] [facility] [place] [id number] [place] [address] Feb, [facility] [place] [facility] [address] [id number] [place] [address] Feb, [facility] [place] [facility] [address] [id number] [place] [address] Jan, [facility] [place] [facility] [address] [facility] [place] [id number] [place] [address] 24 Jan, 2013 [facility] [place] [facility] [address] [id number] [place] [address] 19 Jan, 2013 [facility] [place] [facility] [address] [id number] [place] [address] 18 Jan, 2013 [facility] [place] [facility] [address] [id number] [place] [address] 18 Jan, 2013 [facility] [place] [facility] [address] [id number] [place] [address] 18 Jan, 2013 [facility] [place] [facility] [address] [facility] [place] [id number] [place] [address] 18 Jan, 2013 [facility] [place] [facility] [address] [id number] [place] [address] 17 Jan, 2013 [facility] [place] [facility] [address] [id number] [place] [address] Jan, [facility] [place] [facility] [address] [id number] [place] [address] Jan, [facility] [place] [facility] [address] [id number] [place] [address] Jan, [facility] [place] [facility] [address] [id number] [place] [address] Jan, [facility] [place] [facility] [address] [id number] [place] [address] Jan, [facility] [place] [facility] [address] [id number] [place] [address] Dec, [facility] [place] [facility] [address] [id number] [place] [address] Dec, [facility] [place] [facility] [address] [id number] [place] [address] Dec, [facility] [place] [facility] [address] [id number] [place] [address] Dec, [facility] [place] [facility] [address] [facility] [place] [id number] [place] [address] Dec, [facility] [place] [facility] [address] [id number] [place] [address] Dec, [facility] [place] [facility] [address] [id number] [place] [address] Nov, [facility] [place] [facility] [address] [id number] [place] [address] Nov, [facility] [place] [facility] [address] [id number] [place] [address] Nov, [facility] [place] [facility] [address] [id number] [place] [address] Nov, [facility] [address] [id number] [address] Nov, [facility] [id number] [address] Nov, [facility] [address] [id number] [address] 28 Oct, 2012 [facility] [id number], [place] [address] 27 Oct, 2012 [facility] [id number], [place] [address] 26 Oct, 2012 [facility] [id number], [place] [address] Oct, [facility] [id number] [place] [address] Oct, [facility] [id number] [place] [address] 18 Oct, 2012 [facility] [address] [id number] [address] 13 Oct, 2012 IMMUNIZATIONS No Known Immunizations SOCIAL HISTORY Never Assessed REASON FOR VISIT ritalin 02/24/2017 PLAN OF CARE VITAL SIGNS MEDICATIONS Medication Instructions Dosage Frequency Start Date End Date Duration Status Ritalin LA 20 mg Orally Once a day 1 capsule in the morning 24h Feb, 28 days Active RESULTS No Results PROCEDURES [...]
--- OUTSIDE RECORDS SUMMARY | 2017-09-10 18:17 | XMS REPORT ---
Author Author ROOTSAMUEL Hou Organization [facility] Address [address] [place] [address] Care Team Providers Care [employer] Tech Name Role Phone SAMUEL ROOT Unavailable PROBLEMS Type Condition ICD9-CM Code YKL96-IV Code Onset Dates Condition Status SNOMED Code Problem Anxiety state F41.1 Active 385817728 Problem Depressive disorder, not elsewhere classified F32.9 Active 17191037 Problem ADHD (attention deficit hyperactivity disorder), combined type F90.2 Active 53175918 Problem Irritable bowel syndrome with diarrhea K58.0 Active 908478239 Problem Plantar wart of right foot B07.0 Active [id number] Problem Slow transit constipation K59.01 Active 62253521 Problem Rhinitis, unspecified type J31.0 Active 28547529 Problem Anxiety disorder, unspecified type F41.9 Active 065605577 Problem Major depressive disorder, single episode, mild F32.0 Active 01705005 ALLERGIES No Information ENCOUNTERS Encounter Location Date Diagnosis [place] [id number] [place] [address] 06157- 4221 Jul, ADHD (attention deficit hyperactivity disorder), combined type F90.2 [facility] [id number] [place] [address] 73674- 1747 June, ADHD (attention deficit hyperactivity disorder), combined type F90.2 ; Major depressive disorder, single episode, mild F32.0 and Anxiety disorder, unspecified type F41.9 [facility] [id number] [place] [address] 87979- 5214 June, [facility] [address] [place] [id number] [place] [address] 27342- 6648 June, ADHD (attention deficit hyperactivity disorder), combined type F90.2 [facility] [address] [id number] [place] [address] 99724- 3768 May, [facility] [address] [address] 4237 May, ADHD (attention deficit hyperactivity disorder), combined type F90.2 ; Major depressive disorder, single episode, mild F32.0 and Anxiety disorder, unspecified type F41.9 [facility] [address] [id number] [place] [address] 40005- 5854 May, Anxiety disorder, unspecified type F41.9 [facility] [address] [id number] [place] [address] 10564- 4582 Apr, [facility] [id number] [place] [address] 03065- 9526 Apr, Anxiety disorder, unspecified type F41.9 [facility] [address] [address] 8039 Apr, Anxiety disorder, unspecified type F41.9 ; Major depressive disorder, single episode, mild F32.0 and ADHD (attention deficit hyperactivity disorder), combined type F90.2 [facility] [id number] [place] [address] 51058- 1363 Apr, [facility] [address] [address]- 6375 Apr, ADHD (attention deficit hyperactivity disorder), combined type F90.2 ; Anxiety state F41.1 ; Depressive disorder, not elsewhere classified F32.9 ; Major depressive disorder, single episode, mild F32.0 and Anxiety disorder, unspecified type F41.9 [facility] [address] [address]- 0089 Mar, ADHD (attention deficit hyperactivity disorder), combined type F90.2 [facility] [address] [address]- 9086 Mar, Nausea R11.0 [facility] [id number] [place] [address] 02006- 9456 Mar, Screening for STD sexually transmitted disease Z11.3 ; Vaginal candidiasis B37.3 and Irritable bowel syndrome with diarrhea K58.0 [place] [id number] [place] [address] 64852- 2275 04 Mar, 2017 [facility] [address] [address] [id number] [place] [address] 02548- 4960 Feb, ADHD (attention deficit hyperactivity disorder), combined type F90.2 [facility] [id number] [place] [address] 45015- 7763 Feb, Depressive disorder, not elsewhere classified F32.9 ; Anxiety state F41.1 and ADHD (attention deficit hyperactivity disorder), combined type F90.2 [place] [address] [place] [id number] [place] [address] 09745- 9756 Feb, Depressive disorder, not elsewhere classified F32.9 ; Anxiety state F41.1 and ADHD (attention deficit hyperactivity disorder), combined type F90.2 [place] [id number] [place] [address] 94840- 2180 Feb, ADHD (attention deficit hyperactivity disorder), combined type F90.2 [facility] [id number] [place] [address] 25930 -0944 Jan, Other viral agents as the cause of diseases classified elsewhere B97.89 and Acute upper respiratory infection, unspecified J06.9 [place] [id number] [place] [address] 11952- 5478 Jan, ADHD (attention deficit hyperactivity disorder), combined type F90.2 ; Major depressive disorder, single episode, mild F32.0 and Anxiety disorder, unspecified type F41.9 [place] [id number] [place] [address] 08904- 9271 Jan, [facility] [id number] [place] [address] 82783- 1209 Jan, ADHD (attention deficit hyperactivity disorder), combined type F90.2 ; Major depressive disorder, single episode, mild F32.0 and Anxiety disorder, unspecified type F41.9 [place] [address] [place] [id number] [place] [address] 25886- 6239 Dec, Irritable bowel syndrome with diarrhea K58.0 and Lower abdominal pain R10.30 [place] [address] [place] [id number] [place] [address] 12633- 4031 09 Dec, 2016 Hospital discharge follow-up Z09 ; Mesenteric adenitis I88.0 ; IBD (inflammatory bowel disease) K52.9 and Nausea R11.0 [place] [address] [place] [id number] [place] [address] 79547- 8364 Nov, ADHD (attention deficit hyperactivity disorder), combined type F90.2 ; Major depressive disorder, single episode, mild F32.0 and Anxiety disorder, unspecified type F41.9 [place] [address] [place] [id number] [place] [address] 82018- 5595 Nov, Anxiety state F41.1 ; ADHD (attention deficit hyperactivity disorder), combined type F90.2 ; Major depressive disorder, single episode, mild F32.0 and Anxiety disorder, unspecified type F41.9 [place] [address] [place] [id number] [place] [address] 43068- 2454 Oct, Anxiety state F41.1 ; ADHD (attention deficit hyperactivity disorder), combined type F90.2 ; Major depressive disorder, single episode, mild F32.0 and Anxiety disorder, unspecified type F41.9 [place] [address] [place] [id number] [place] [address] 09976- 6558 Oct, ADHD (attention deficit hyperactivity disorder), combined type F90.2 ; Major depressive disorder, single episode, mild F32.0 and Anxiety disorder, unspecified type F41.9 [place] [id number] [place] [address] 70066- 9822 Oct, Major depressive disorder, single episode, mild F32.0 ; Anxiety state F41.1 ; ADHD (attention deficit hyperactivity disorder), combined type F90.2 and Depressive disorder, not elsewhere classified F32.9 [facility] [address] [address] [id number] [place] [address] 56657 -3107 16 Oct, 2016 [facility] [id number] [place] [address] 04706 -8539 Oct, Cellulitis L03.90 and Plantar wart of right foot B07.0 [facility] [address] 23034- 5545 Aug, ADHD (attention deficit hyperactivity disorder), combined type F90.2 ; Major depressive disorder, single episode, mild F32.0 and Anxiety disorder, unspecified type F41.9 [facility] [address] [id number] [place] [address] 33844- 8941 Aug, [facility] [address] [address] [id number] [place] [address] 16087- 4681 Jul, ADHD (attention deficit hyperactivity disorder), combined type F90.2 [facility] [address] [place] [id number] [place] [address] 34520- 6331 Jul, Mesenteric adenitis I88.0 [facility] [address] [place] [id number] [place] [address] 98489- 8148 June, [facility] [address] [place] [id number] [place] [address] 55564 -7571 June, Lower abdominal pain R10.30 [facility] [address] [place] [id number] [place] [address] 73352- 8612 June, [facility] [address] [place] [id number] [place] [address] 01693- 3387 June, ADHD (attention deficit hyperactivity disorder), combined type F90.2 and Major depressive disorder, single episode, mild F32.0 [facility] [address] [place] [id number] [place] [address] 31489- 9378 May, [facility] [address] [place] [id number] [place] [address] 37808- 4825 May, ADHD (attention deficit hyperactivity disorder), combined type F90.2 and Major depressive disorder, single episode, mild F32.[address] [facility] [address] 99979 -7839 Apr, Abdominal pain R10.9 and Gastroenteritis and colitis, viral A08.4 [place] [address] 05047- 7657 Apr, [facility] [address] 38580 -5989 Mar, Acute urticaria L50.8 [place] [address] 75135- 4356 Mar, [place] [address] 60003- 7852 Feb, [facility] [place] [address] 53459 -0684 Feb, Gastroenteritis K52.9 [place] [address] 10116- 2765 Feb, Irritant contact dermatitis due to cosmetics L24.3 [place] [address] 79539- 9092 Jan, [place] [address] 75311- 6048 Jan, [place] [address] 97313- 7060 Jan, ADHD (attention deficit hyperactivity disorder), combined type F90.2 and Major depressive disorder, single episode, mild F32.0 [facility] [place] [address] 27267 -5526 Dec, Flexural eczema L20.82 [place] [address] 13647- 0444 Dec, Encounter for test Z32.00 [facility] [address] [place] [id number] [place] [address] 37187- 7335 Dec, [facility] [address] [address] [id number] [place] [address] 69981- 7135 Dec, [facility] [address] [address] [id number] [place] [address] 53401- 0000 Dec, [facility] [address] 58892 -3001 Nov, Sore throat J02.9 and Pharyngitis, unspecified etiology J02.9 [facility] [address] 81268- 5711 Nov, [facility] [address] [place] [id number] [place] [address] 83605- 9318 Nov, [facility] [address] 39661- 8291 Nov, Generalized abdominal pain R10.84 and Slow transit constipation K59.01 [facility] [address] [id number] [place] [address] [id number] Nov, Pharyngitis, unspecified etiology J02.9 and Rhinitis, unspecified type J31.0 [facility] [address] [place] [id number] [place] [address] 39437- 5930 29 Oct, 2015 Depressive disorder, not elsewhere classified F32.9 and ADHD (attention deficit hyperactivity disorder), combined type F90.2 [facility] [address] [place] [id number] [place] [address] 89974- 4868 29 Oct, 2015 [facility] [address] [place] [id number] [place] [address] 19947- 4181 Oct, [facility] [address] [id number] [place] [address] 24798 -5053 Oct, Strep throat J02.0 [facility] [address] [id number] [place] [address] 82021- 2897 Oct, [facility] [address] [place] [id number] [address]- 9531 Oct, Well woman exam with routine gynecological exam Z01.419 and Screening for STD sexually transmitted disease Z11.3 [facility] [address] [place] [id number] [address]- 0890 Sep, ADHD (attention deficit hyperactivity disorder), combined type F90.2 ; Anxiety state F41.1 and Depressive disorder, not elsewhere classified F32.9 [facility] [address] [place] [id number] [address]- 1935 Sep, ADHD (attention deficit hyperactivity disorder), combined type F90.2 and Depressive disorder, not elsewhere classified F32.9 [facility] [address] [address]- 0107 Aug, [facility] [address] [place] [id number] [place] [address] 02332- 1106 Aug, ADHD (attention deficit hyperactivity disorder), combined type F90.2 and Depressive disorder, not elsewhere classified F32.9 [facility] [address] [address]- 7770 Aug, ADHD (attention deficit hyperactivity disorder), combined type F90.2 ; Anxiety state F41.1 and Depressive disorder, not elsewhere classified F32.9 [facility] [address] [address]- 7127 Aug, [facility] [address] [place] [id number] [address]- 3452 Aug, [facility] [address] [address]- 3671 Jul, ADHD (attention deficit hyperactivity disorder), combined type F90.2 ; Depressive disorder, not elsewhere classified F32.9 and Anxiety state F41.1 [facility] [address] [address]- 2368 Jul, [facility] [address] [id number] [address]- 6397 Jul, ADHD (attention deficit hyperactivity disorder), combined type F90.2 ; Anxiety state F41.1 and Depressive disorder, not elsewhere classified F32.9 [facility] [address] [id number] [place] [address] 67925- 1176 June, [facility] [id number] [place] [address] [id number] June, Constipation K59.00 [facility] [address] [address] [id number] [place] [address] 93767- 4923 May, Constipation K59.00 [facility] [address] [address] [id number] [place] [address] 33243 -3209 May, Irritable bowel syndrome with diarrhea K58.0 [facility] [address] [address] [id number] [place] [address] 36045- 4567 May, [facility] [address] [id number] [place] [address] 60105- 8207 May, [facility] [address] [id number] [place] [address] 37162- 0469 14 May, 2014 [facility] [id number] [place] [address] 02535- 5045 May, [facility] [address] [address] [id number] [place] [address] 76696- 8735 Jan, [facility] [address] [address] [id number] [place] [address] 25746- 3795 Jan, [facility] [address] [address] [id number] [place] [address] 05234- 5313 Jan, [facility] [address] [address] [id number] [place] [address] 13324- 4027 Jan, [facility] [address] [address] [id number] [place] [address] 53278- 3329 Jan, [facility] [place] [facility] [address] [id number] [place] [address]- 4669 Jan, [facility] [place] [facility] [address] [id number] [place] [address]- 9315 Nov, [facility] [place] [facility] [address] [id number] [place] [address]- 0620 Nov, [facility] [place] [facility] [address] [id number] [place] [address]- 4491 Oct, [facility] [place] [facility] [address] [id number] [place] [address]- 8894 Oct, [facility] [place] [facility] [address] [id number] [place] [address]- 4843 Sep, [facility] [place] [facility] [address] [id number] [place] [address]- 2796 Sep, [facility] [place] [facility] [address] [id number] [place] [address]- 7472 Aug, [facility] [place] [facility] [address] [id number] [place] [address]- 4569 Aug, [facility] [place] [facility] [address] [id number] [place] [address]- 9942 Aug, [facility] [place] [facility] [address] [id number] [place] [address]- 5012 Aug, [facility] [place] [facility] [address] [id number] [place] [address]- 2349 Aug, [facility] [place] [facility] [address] [id number] [place] [address]- 4657 Aug, [facility] [place] [facility] [address] [id number] [place] [address]- 2976 Aug, [facility] [place] [facility] [address] [id number] [place] [address]- 0016 Aug, [facility] [place] [facility] [address] [id number] [place] [address]- 8033 Jul, [facility] [place] [facility] [address] [id number] [place] [address]- 8699 Jul, [facility] [place] [facility] [address] [id number] [place] [address]- 4089 Jul, [facility] [place] [facility] [address] [id number] [place] [address]- 8194 Jul, [facility] [place] [facility] [address] [id number] [place] [address]- 8070 Jul, [facility] [place] [facility] [address] [id number] [place] [address]- 5739 Jul, [facility] [place] [facility] [address] [id number] [place] [address]- 5428 Jul, [facility] [place] [facility] [address] [id number] [place] [address]- 2853 Jul, [facility] [place] [facility] [address] [id number] [place] [address]- 4955 Jul, [facility] [place] [facility] [address] [id number] [place] [address]- 6993 June, [facility] [place] [facility] [address] [id number] [place] [address]- 8933 June, [facility] [place] [facility] [address] [id number] [place] [address]- 2645 May, [facility] [place] [facility] [address] [id number] [address]- 1560 May, [facility] [place] [facility] [address] [id number] [place] [address]- 8006 May, [facility] [place] [facility] [address] [id number] [place] [address]- 5206 May, [facility] [place] [facility] [address] [id number] [place] [address]- 7748 May, [facility] [place] [facility] [address] [id number] [place] [address]- 3772 17 May, 2013 [facility] [place] [facility] [address] [id number] [place] [address]- 2452 May, [facility] [place] [facility] [address] [id number] [place] [address]- 6356 May, [facility] [place] [facility] [address] [id number] [place] [address]- 8045 May, [facility] [place] [facility] [address] [id number] [place] [address]- 3045 May, [facility] [place] [facility] [address] [id number] [place] [address]- 3534 May, [facility] [place] [facility] [address] [id number] [place] [address]- 6251 May, [facility] [place] [facility] [address] [id number] [place] [address]- 3553 Apr, [facility] [place] [facility] [address] [id number] [place] [address]- 1384 Apr, [facility] [place] [facility] [address] [id number] [place] [address]- 3694 Apr, [facility] [place] [facility] [address] [facility] [id number] [place] [address]- 2529 Apr, [facility] [place] [facility] [address] [id number] [place] [address]- 4879 Mar, [facility] [place] [facility] [address] [id number] [place] [address]- 8471 Mar, [facility] [place] [facility] [address] [id number] [place] [address]- 0855 Mar, [facility] [place] [facility] [address] [id number] [place] [address]- 4826 Mar, [facility] [place] [facility] [address] [id number] [place] [address]- 3303 Mar, [facility] [place] [facility] [address] [id number] [place] [address]- 2971 Mar, [facility] [place] [facility] [address] [id number] [place] [address]- 6885 Mar, 2013 [facility] [place] [facility] [address] [facility] [id number] [place] [address]- 9923 Mar, [facility] [place] [facility] [address] [id number] [place] [address]- 8681 Mar, 2013 [facility] [place] [facility] [address] [id number] [place] [address]- 3851 Mar, [facility] [place] [facility] [address] [facility] [id number] [place] [address]- 7697 14 Mar, 2013 [facility] [place] [facility] [address] [facility] [id number] [place] [address]- 3388 14 Mar, 2013 [facility] [place] [facility] [address] [facility] [id number] [place] [address]- 5594 13 Mar, 2013 [facility] [place] [facility] [address] [facility] [id number] [place] [address]- 2300 Mar, [facility] [place] [facility] [address] [facility] [id number] [place] [address]- 2062 Mar, [facility] [place] [facility] [address] [facility] [id number] [place] [address]- 3492 Mar, 2013 [facility] [place] [facility] [address] [facility] [id number] [place] [address]- 4142 Mar, 2013 [facility] [place] [facility] [address] [facility] [id number] [place] [address] Mar, 2013 [facility] [place] [facility] [address] [facility] [id number] [place] [address] 04 Mar, 2013 [facility] [place] [facility] [address] [facility] [id number] [place] [address] Mar, [facility] [place] [facility] [address] [id number] [place] [address] Feb, [facility] [place] [facility] [address] [id number] [place] [address] Feb, [facility] [place] [facility] [address] [id number] [place] [address] Feb, [facility] [place] [facility] [address] [id number] [place] [address] Feb, [facility] [address] [id number] [place] [address] Feb, [facility] [place] [facility] [address] [id number] [place] [address] Feb, [facility] [place] [facility] [address] [id number] [place] [address] Feb, [facility] [place] [facility] [address] [id number] [place] [address] Feb, [facility] [place] [facility] [address] [id number] [place] [address] Feb, [facility] [place] [facility] [address] [id number] [place] [address] Feb, [facility] [place] [facility] [address] [id number] [place] [address] Feb, [facility] [place] [facility] [address] [id number] [place] [address] Feb, [facility] [place] [facility] [address] [id number] [place] [address] Feb, [facility] [place] [facility] [address] [id number] [place] [address] Feb, [facility] [place] [facility] [address] [id number] [place] [address] Feb, [facility] [place] [facility] [address] [id number] [place] [address] Feb, [facility] [place] [facility] [address] [id number] [place] [address] Feb, [facility] [place] [facility] [address] [id number] [place] [address] Feb, [facility] [place] [facility] [address] [id number] [place] [address] Feb, [facility] [place] [facility] [address] [id number] [place] [address] Feb, [facility] [place] [facility] [address] [id number] [place] [address] Feb, [facility] [place] [facility] [address] [id number] [place] [address] Feb, [facility] [place] [facility] [address] [id number] [place] [address] Feb, [facility] [place] [facility] [address] [id number] [place] [address] 24 Jan, 2013 [facility] [place] [facility] [address] [id number] [place] [address] 24 Jan, 2013 [facility] [place] [facility] [address] [id number] [place] [address] 19 Jan, 2013 [facility] [place] [facility] [address] [id number] [place] [address] 18 Jan, 2013 [facility] [place] [facility] [address] [id number] [place] [address] 18 Jan, 2013 [facility] [place] [facility] [address] [id number] [place] [address] 18 Jan, 2013 [facility] [place] [facility] [address] [id number] [place] [address] 18 Jan, 2013 [facility] [place] [facility] [address] [id number] [place] [address] 17 Jan, 2013 [facility] [place] [facility] [address] [id number] [place] [address] Jan, [facility] [address] [id number] [place] [address] Jan, [facility] [place] [facility] [address] [id number] [place] [address] Jan, [facility] [address] [id number] [place] [address] Jan, [facility] [place] [facility] [address] [id number] [place] [address] Jan, [facility] [address] [id number] [place] [address] Dec, [facility] [address] [id number] [place] [address] Dec, [facility] [address] [id number] [place] [address] Dec, [facility] [address] [id number] [place] [address] Dec, [facility] [address] [id number] [place] [address] Dec, [facility] [address] [id number] [place] [address] Dec, [facility] [place] [facility] [address] [id number] [place] [address] Nov, [facility] [address] [id number] [place] [address] Nov, [facility] [place] [facility] [address] [id number] [place] [address] Nov, [facility] [place] [facility] [address] [id number] [place] [address] Nov, [facility] [place] [facility] [address] [id number] [place] [address] Nov, [facility] [address] [id number] [address] Nov, [facility] [id number] [address] 28 Oct, 2012 [facility] [id number] [address] 27 Oct, 2012 [facility] [id number] [address] Oct, [facility] [id number] [address] Oct, [facility] [id number] [address] Oct, [facility] [id number] [address] 18 Oct, 2012 [facility] [id number] [address] Oct, IMMUNIZATIONS No Known Immunizations SOCIAL HISTORY Never Assessed REASON FOR VISIT Requests return call PLAN OF CARE VITAL SIGNS [...]
--- OUTSIDE RECORDS SUMMARY | 2017-09-10 18:17 | XMS REPORT ---
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0 Active 11319737 Problem Anxiety disorder, unspecified type F41.9 Active 651180916 Problem Major depressive disorder, single episode, mild F32.0 Active 98937667 ALLERGIES No Information ENCOUNTERS Encounter Location Date Diagnosis [place] [id number] [place] [address] 45632- 7654 Jul, [facility] [id number] [place] [address] 67763- 3253 Jul, ADHD (attention deficit hyperactivity disorder), combined type F90.2 [facility] [id number] [place] [address] 61625- 1077 June, ADHD (attention deficit hyperactivity disorder), combined type F90.2 ; Major depressive disorder, single episode, mild F32.0 and Anxiety disorder, unspecified type F41.9 [facility] [id number] [place] [address] 87175- 9780 June, [facility] [id number] [place] [address] 11615- 9266 June, ADHD (attention deficit hyperactivity disorder), combined type F90.2 [facility] [address], [place] [address] May, [facility] [address], [place] [address] 5767 May, ADHD (attention deficit hyperactivity disorder), combined type F90.2 ; Major depressive disorder, single episode, mild F32.0 and Anxiety disorder, unspecified type F41.9 [facility] [address], [place] [address] May, Anxiety disorder, unspecified type F41.9 [facility] [id number] [address] 99[address] Apr, [facility] [id number] [address] 1660 Apr, Anxiety disorder, unspecified type F41.9 [facility] [address], [place] [address] 1115 Apr, Anxiety disorder, unspecified type F41.9 ; Major depressive disorder, single episode, mild F32.0 and ADHD (attention deficit hyperactivity disorder), combined type F90.2 [facility] [address], [place] [address] 1618 Apr, [facility] [address], [place] [address]- 4702 Apr, ADHD (attention deficit hyperactivity disorder), combined type F90.2 ; Anxiety state F41.1 ; Depressive disorder, not elsewhere classified F32.9 ; Major depressive disorder, single episode, mild F32.0 and Anxiety disorder, unspecified type F41.9 [facility] [address], [place] [address] 8575 Mar, ADHD (attention deficit hyperactivity disorder), combined type F90.2 [facility] [address], [place] [address]- 7727 Mar, Nausea R11.0 [facility] [address], [place] [address] 7146 Mar, Screening for STD sexually transmitted disease Z11.3 ; Vaginal candidiasis B37.3 and Irritable bowel syndrome with diarrhea K58.0 [place] [address], [place] [address] 3[address] Mar, [facility] [id number] [place] [address] 54243- 4420 Feb, ADHD (attention deficit hyperactivity disorder), combined type F90.2 [place] [id number] [place] [address] 32237- 4261 Feb, Depressive disorder, not elsewhere classified F32.9 ; Anxiety state F41.1 and ADHD (attention deficit hyperactivity disorder), combined type F90.2 [place] [id number] [place] [address] 21278- 5686 Feb, Depressive disorder, not elsewhere classified F32.9 ; Anxiety state F41.1 and ADHD (attention deficit hyperactivity disorder), combined type F90.2 [place] [id number] [place] [address] 10378- 7837 Feb, ADHD (attention deficit hyperactivity disorder), combined type F90.2 [facility] [address], [place] [address] Jan, Other viral agents as the cause of diseases classified elsewhere B97.89 and Acute upper respiratory infection, unspecified J06.9 [facility] [address] [place] [address] 69846- 3104 Jan, ADHD (attention deficit hyperactivity disorder), combined type F90.2 ; Major depressive disorder, single episode, mild F32.0 and Anxiety disorder, unspecified type F41.9 [facility] [address], [place] [address]- 3795 Jan, [facility] [address] [address] 7568 Jan, ADHD (attention deficit hyperactivity disorder), combined type F90.2 ; Major depressive disorder, single episode, mild F32.0 and Anxiety disorder, unspecified type F41.9 [place] [id number] [place] [address] 76842- 2152 Dec, Irritable bowel syndrome with diarrhea K58.0 and Lower abdominal pain R10.30 [place] [id number] [place] [address] 81662- 1922 Dec, Hospital discharge follow-up Z09 ; Mesenteric adenitis I88.0 ; IBD (inflammatory bowel disease) K52.9 and Nausea R11.0 [place] [id number] [place] [address] 50842- 3521 Nov, ADHD (attention deficit hyperactivity disorder), combined type F90.2 ; Major depressive disorder, single episode, mild F32.0 and Anxiety disorder, unspecified type F41.9 [place] [id number] [place] [address] 60496- 0458 Nov, Anxiety state F41.1 ; ADHD (attention deficit hyperactivity disorder), combined type F90.2 ; Major depressive disorder, single episode, mild F32.0 and Anxiety disorder, unspecified type F41.9 [place] [address] [place] [address] 13758- 1651 Oct, Anxiety state F41.1 ; ADHD (attention deficit hyperactivity disorder), combined type F90.2 ; Major depressive disorder, single episode, mild F32.0 and Anxiety disorder, unspecified type F41.9 [place] [id number] [place] [address] 42894- 7994 Oct, ADHD (attention deficit hyperactivity disorder), combined type F90.2 ; Major depressive disorder, single episode, mild F32.0 and Anxiety disorder, unspecified type F41.9 [place] [id number] [place] [address] 93833- 8575 Oct, Major depressive disorder, single episode, mild F32.0 ; Anxiety state F41.1 ; ADHD (attention deficit hyperactivity disorder), combined type F90.2 and Depressive disorder, not elsewhere classified F32.9 [facility] [id number] [place] [address] 44139 -2219 Oct, [facility] [id number] [place] [address] 37958 -0618 Oct, Cellulitis L03.90 and Plantar wart of right foot B07.0 [facility] [id number] [place] [address] 28555- 5890 Aug, ADHD (attention deficit hyperactivity disorder), combined type F90.2 ; Major depressive disorder, single episode, mild F32.0 and Anxiety disorder, unspecified type F41.9 [facility] [id number] [place] [address] 28145- 1166 Aug, [facility] [id number] [place] [address] 45919- 7101 Jul, ADHD (attention deficit hyperactivity disorder), combined type F90.2 [facility] [id number] [place] [address] 93351- 3285 Jul, Mesenteric adenitis I88.0 [facility] [id number] [place] [address] 76151- 3492 June, [facility] [id number] [place] [address] 30734 -0040 June, Lower abdominal pain R10.30 [facility] [id number] [place] [address] 04380- 1935 June, [facility] [id number] [place] [address] 93671- 7760 June, ADHD (attention deficit hyperactivity disorder), combined type F90.2 and Major depressive disorder, single episode, mild F32.0 [facility] [id number] [place] [address] 16491- 7064 May, [facility] [id number] [place] [address] 91390- 7163 May, ADHD (attention deficit hyperactivity disorder), combined type F90.2 and Major depressive disorder, single episode, mild F32.0 [facility] [id number] [place] [address] 69756 -3048 Apr, Abdominal pain R10.9 and Gastroenteritis and colitis, viral A08.4 [place] [address] 52721- 5086 Apr, [facility] [address] 13312 -0565 Mar, Acute urticaria L50.8 [place] [address] 52927- 3441 Mar, [place] [address] 36820- 3702 Feb, [facility] [id number] [place] [address] 26930 -1133 Feb, Gastroenteritis K52.9 [place] [address] 17330- 7131 Feb, Irritant contact dermatitis due to cosmetics L24.3 [place] [id number] [place] [address] 15138- 8428 Jan, [place] [id number] [place] [address] 34081- 5704 Jan, [place] [address] 25676- 6366 Jan, ADHD (attention deficit hyperactivity disorder), combined type F90.2 and Major depressive disorder, single episode, mild F32.0 [facility] [id number] [place] [address] 72295 -2922 Dec, Flexural eczema L20.82 [facility] [id number] [place] [address] 18040- 7736 Dec, Encounter for test Z32.00 [facility] [address] 34104- 3751 Dec, [facility] [address] 29638- 4346 Dec, [facility] [address] 10454- 8697 Dec, [facility] [address] 03969 -6837 Nov, Sore throat J02.9 and Pharyngitis, unspecified etiology J02.9 [facility] [address] 66498- 3350 Nov, [facility] [address] 38577- 6167 Nov, [facility] [address] 90340- 0605 Nov, Generalized abdominal pain R10.84 and Slow transit constipation K59.01 [facility] [id number] [place] [address] [id number] Nov, Pharyngitis, unspecified etiology J02.9 and Rhinitis, unspecified type J31.0 [facility] [id number] [place] [address] 14937- 7200 Oct, Depressive disorder, not elsewhere classified F32.9 and ADHD (attention deficit hyperactivity disorder), combined type F90.2 [facility] [address] 04768- 7330 Oct, [facility] [id number] [place] [address] 65954- 2274 Oct, [facility] [address] 02489 -8832 Oct, Strep throat J02.0 [facility] [address], [place] [address]- 7229 Oct, [facility] [id number] [place] [address] 50132- 6869 Oct, Well woman exam with routine gynecological exam Z01.419 and Screening for STD sexually transmitted disease Z11.3 [place] [id number] [place] [address] 21683- 2770 Sep, ADHD (attention deficit hyperactivity disorder), combined type F90.2 ; Anxiety state F41.1 and Depressive disorder, not elsewhere classified F32.9 [place] [address] [place] [address] 80034- 3651 Sep, ADHD (attention deficit hyperactivity disorder), combined type F90.2 and Depressive disorder, not elsewhere classified F32.9 [place] [address] [address]- 7424 Aug, [facility] [address] [place] [address] 39584- 3370 Aug, ADHD (attention deficit hyperactivity disorder), combined type F90.2 and Depressive disorder, not elsewhere classified F32.9 [place] [address], [place] [address]- 6062 Aug, ADHD (attention deficit hyperactivity disorder), combined type F90.2 ; Anxiety state F41.1 and Depressive disorder, not elsewhere classified F32.9 [place] [address], [place] [address]- 8140 Aug, [facility] [address], [place] [address]- 6568 Aug, [facility] [address], [place] [address]- 0920 Jul, ADHD (attention deficit hyperactivity disorder), combined type F90.2 ; Depressive disorder, not elsewhere classified F32.9 and Anxiety state F41.1 [facility] [id number] [place] [address] 95338- 6086 Jul, [facility] [id number] [place] [address] 54778- 0595 Jul, ADHD (attention deficit hyperactivity disorder), combined type F90.2 ; Anxiety state F41.1 and Depressive disorder, not elsewhere classified F32.9 [facility] [address] 36230- 5110 June, [facility] [id number] [place] [address] [id number] June, Constipation K59.00 [facility] [address] 34670- 9377 May, Constipation K59.00 [facility] [id number] [place] [address] 67636 -8313 May, Irritable bowel syndrome with diarrhea K58.0 [facility] [id number] [place] [address] 42650- 3940 May, [facility] [id number] [place] [address] 11251- 6218 May, [facility] [id number] [place] [address] 16148- 2619 14 May, 2014 [facility] [id number] [place] [address] 39504- 5287 May, [facility] [id number] [place] [address] 35529- 3700 Jan, [facility] [id number] [place] [address] 61176- 1886 Jan, [facility] [id number] [place] [address] 37103- 4083 Jan, [facility] [id number] [place] [address] 08214- 0436 Jan, [facility] [place] [facility] [address] [id number] [place] [address]- 3237 Jan, [facility] [place] [facility] [address] [id number] [place] [address]- 6714 Jan, [facility] [place] [facility] [address] [id number] [place] [address]- 2313 Nov, [facility] [place] [facility] [address] [id number] [place] [address]- 8732 Nov, [facility] [place] [facility] [address] [id number] [place] [address]- 7790 Oct, [facility] [place] [facility] [address] [id number] [place] [address]- 3410 Oct, [facility] [place] [facility] [address] [id number] [place] [address]- 4101 Sep, [facility] [place] [facility] [address] [id number] [place] [address]- 6300 Sep, [facility] [place] [facility] [address] [id number] [place] [address]- 8392 Aug, [facility] [place] [facility] [address] [id number] [place] [address]- 2454 Aug, [facility] [place] [facility] [address] [id number] [place] [address]- 8702 Aug, [facility] [place] [facility] [address] [id number] [place] [address]- 8329 Aug, [facility] [place] [facility] [address] [id number] [place] [address]- 0562 Aug, [facility] [place] [facility] [address] [id number] [place] [address]- 0240 Aug, [facility] [place] [facility] [address] [id number] [place] [address]- 2100 Aug, [facility] [place] [facility] [address] [id number], [place] [address]- 5129 Aug, [facility] [place] [facility] [address] [id number] [place] [address]- 8949 Jul, [facility] [place] [facility] [address] [id number] [place] [address]- 5077 Jul, [facility] [place] [facility] [address] [id number] [place] [address]- 0616 Jul, [facility] [place] [facility] [address] [id number] [place] [address]- 1132 Jul, [facility] [place] [facility] [address] [id number] [place] [address]- 8853 Jul, [facility] [place] [facility] [address] [id number] [place] [address]- 1957 Jul, [facility] [place] [facility] [address] [id number] [place] [address]- 6326 Jul, [facility] [place] [facility] [address] [id number] [place] [address]- 7498 Jul, [facility] [place] [facility] [address] [id number] [place] [address]- 6234 Jul, [facility] [place] [facility] [address] [id number] [place] [address]- 6020 June, [facility] [place] [facility] [address] [id number] [place] [address]- 0951 June, [facility] [place] [facility] [address] [id number] [place] [address]- 8048 May, [facility] [place] [facility] [address] [id number] [place] [address]- 6341 May, [facility] [place] [facility] [address] [id number] [place] [address]- 6172 May, [facility] [place] [facility] [address] [id number] [place] [address]- 1313 May, [facility] [place] [facility] [address] [id number] [place] [address]- 9848 17 May, 2013 [facility] [place] [facility] [address] [id number] [place] [address]- 0667 May, [facility] [place] [facility] [address] [id number] [place] [address]- 1076 May, [facility] [place] [facility] [address] [id number] [place] [address]- 5387 May, [facility] [place] [facility] [address] [id number] [place] [address]- 0855 May, [facility] [place] [facility] [address] [id number] [place] [address]- 0040 May, [facility] [place] [facility] [address] [id number] [place] [address]- 9550 May, [facility] [place] [facility] [address] [id number] [place] [address]- 5843 May, [facility] [place] [facility] [address] [id number] [place] [address]- 4753 Apr, [facility] [place] [facility] [address] [id number] [place] [address]- 5619 Apr, [facility] [place] [facility] [address] [id number] [place] [address]- 6290 Apr, [facility] [place] [facility] [address] [id number] [place] [address]- 8198 Apr, [facility] [place] [facility] [address] [id number] [place] [address]- 9906 Mar, [facility] [place] [facility] [address] [id number] [place] [address]- 0777 Mar, [facility] [place] [facility] [address] [id number] [place] [address]- 0037 Mar, [facility] [place] [facility] [address] [id number] [place] [address]- 9152 Mar, 2013 [facility] [place] [facility] [address] [facility] [id number] [place] [address]- 1924 Mar, [facility] [place] [facility] [address] [facility] [id number] [place] [address]- 0856 Mar, 2013 [facility] [place] [facility] [address] [facility] [id number] [place] [address]- 2546 19 Mar, 2013 [facility] [place] [facility] [address] [facility] [id number] [place] [address]- 2545 Mar, 2013 [facility] [place] [facility] [address] [facility] [id number] [place] [address]- 4493 Mar, 2013 [facility] [place] [facility] [address] [facility] [id number] [place] [address]- 3899 Mar, 2013 [facility] [place] [facility] [address] [facility] [id number] [place] [address]- 8517 14 Mar, 2013 [facility] [place] [facility] [address] [facility] [id number] [place] [address]- 0242 14 Mar, 2013 [facility] [place] [facility] [address] [facility] [id number] [place] [address]- 1595 13 Mar, 2013 [facility] [place] [facility] [address] [facility] [id number] [place] [address]- 3113 13 Mar, 2013 [facility] [place] [facility] [address] [facility] [id number] [place] [address]- 6936 Mar, 2013 [facility] [place] [facility] [address] [facility] [id number] [place] [address]- 2544 11 Mar, 2013 [facility] [place] [facility] [address] [facility] [id number] [place] [address]- 0148 Mar, 2013 [facility] [place] [facility] [address] [facility] [id number] [place] [address]- 1522 11 Mar, 2013 [facility] [place] [facility] [address] [facility] [id number] [place] [address]- 8926 Mar, [facility] [place] [facility] [address] [id number] [place] [address]- 1695 Mar, [facility] [place] [facility] [address] [id number] [place] [address] Feb, [facility] [place] [facility] [address] [id number] [place] [address] Feb, [facility] [place] [facility] [address] [id number] [place] [address] Feb, [facility] [place] [facility] [address] [id number] [place] [address] Feb, [facility] [place] [facility] [address] [id number] [place] [address] Feb, [facility] [place] [facility] [address] [id number] [place] [address] Feb, [facility] [place] [facility] [address] [id number] [place] [address] Feb, [facility] [place] [facility] [address] [id number] [place] [address] 1997 Feb, [facility] [place] [facility] [address] [id number] [place] [address] Feb, [facility] [place] [facility] [address] [id number] [place] [address] Feb, [facility] [place] [facility] [address] [id number], [place] [address] Feb, [facility] [place] [facility] [address] [id number] [place] [address] Feb, [facility] [place] [facility] [address] [id number] [place] [address] Feb, [facility] [place] [facility] [address] [id number] [place] [address] Feb, [facility] [place] [facility] [address] [id number] [place] [address] 16 Feb, 2013 [facility] [address] [id number] [place] [address] 15 Feb, 2013 [facility] [place] [facility] [address] [id number] [place] [address] 15 Feb, 2013 [facility] [place] [facility] [address] [id number] [place] [address] 15 Feb, 2013 [facility] [place] [facility] [address] [id number] [place] [address] 15 Feb, 2013 [facility] [place] [facility] [address] [id number] [place] [address] Feb, [facility] [place] [facility] [address] [id number] [place] [address]- [address] Feb, [facility] [place] [facility] [address] [id number] [place] [address]- [address] Feb, [facility] [place] [facility] [address] [id number] [place] [address] Feb, [facility] [place] [facility] [address] [id number] [place] [address] Jan, [facility] [place] [facility] [address] [id number] [place] [address] 24 Jan, 2013 [facility] [place] [facility] [address] [id number] [place] [address] 19 Jan, 2013 [facility] [place] [facility] [address] [id number] [place] [address] 18 Jan, 2013 [facility] [place] [facility] [address] [id number] [place] [address] 18 Jan, 2013 [facility] [place] [facility] [address] [id number] [place] [address] 18 Jan, 2013 [facility] [place] [facility] [address] [id number] [place] [address] Jan, [facility] [place] [facility] [address] [id number] [place] [address] Jan, [facility] [place] [facility] [address] [id number] [place] [id number] [address] Jan, [facility] [place] [facility] [address] [id number] [place] [id number] Jan, [facility] [place] [facility] [address] [id number] [place] [address] Jan, [facility] [place] [facility] [address] [id number] [place] [address] Jan, [facility] [place] [facility] [address] [id number] [place] [address] Jan, [facility] [place] [facility] [address] [id number] [place] [address] Dec, [facility] [place] [facility] [address] [id number] [place] [address] Dec, [facility] [place] [facility] [address] [id number] [place] [address] Dec, [facility] [place] [facility] [address] [id number] [place] [address] Dec, [facility] [place] [facility] [address] [id number] [place] [id number] Dec, [facility] [place] [facility] [address] [id number] [place] [address] Dec, [facility] [place] [facility] [address] [id number] [place] [address] Nov, [facility] [place] [facility] [address] [id number] [place] [address] Nov, [facility] [place] [facility] [address] [id number] [place] [address] Nov, [facility] [place] [facility] [address] [id number] [place] [address] Nov, [facility] [id number] [place] [address] Nov, [facility] [id number] [address] Nov, [facility] [id number], [place] [address] Oct, [facility] [id number] [address] Oct, [facility] [id number], [place] [address] Oct, [facility] [id number] [place] [address] Oct, [facility] [id number], [place] [address] Oct, [facility] [id number], [place] [address] Oct, [facility] [id number], [place] [address] Oct, IMMUNIZATIONS No Known Immunizations SOCIAL HISTORY Never Assessed REASON FOR VISIT f/u PLAN OF CARE Activity Details Follow Up prn Reason:Adjustment Disorder VITAL SIGNS MEDICATIONS Medication Instructions Dosage Frequency Start Date End Date Duration Status HydrOXYzine HCl 25 MG Orally three times a day as needed for anxiety 1 tablet as needed Active Dicyclomine HCl 20 mg Orally 3 times a day 1 tablet 8h Dec,Jan 30 day(s) Unknown Venlafaxine HCl ER 150 MG Orally Once a day 1 capsule with food 24h Active Ritalin LA 20 mg Orally Once a day 1 capsule in the morning 24h 28 days Active Ondansetron 4 MG Orally every 8 hrs prn 1 tablet on the tongue and allow to dissolve Dec, 14 days Unknown Protonix 40 MG Orally Once a day 1 tablet 24h Unknown Promethazine HCl 25 MG Orally every 4 hrs 1 tablet as needed 4h Unknown RESULTS No Results PROCEDURES Procedure Date Ordered Result Body Site Psychotherapy, patient &/family, 30 minutes, established patient Jan 25, 2017 INSTRUCTIONS MEDICATIONS ADMINISTERED No Known Medications MEDICAL [...] Hospitalization History 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
--- OUTSIDE RECORDS SUMMARY | 2017-09-10 18:20 | XMS REPORT ---
Author Author MIGUEL ÁNGEL Aquino Organization [facility] Address [address] [place] [address] Care Team Providers Care Obstetrician And Gynaecologist Name Role Phone lastPegBRADLYMIGUEL ÁNGEL Ruffin Unavailable PROBLEMS Type Condition ICD9-CM Code VIZ61-BO Code Onset Dates Condition Status SNOMED Code Problem Anxiety state F41.1 Active 474464631 Problem Depressive disorder, not elsewhere classified F32.9 Active 97599513 Problem ADHD (attention deficit hyperactivity disorder), combined type F90.2 Active 92135938 Problem Irritable bowel syndrome with diarrhea K58.0 Active 284536136 Problem Plantar wart of right foot B07.0 Active [id number] Problem Slow transit constipation K59.01 Active 91135474 Problem Rhinitis, unspecified type J31.0 Active 18741125 Problem Anxiety disorder, unspecified type F41.9 Active 085506657 Problem Major depressive disorder, single episode, mild F32.0 Active 99705783 ALLERGIES No Information ENCOUNTERS Encounter Location Date Diagnosis [place] [id number] [place] [address] 35393- 0565 Jul, ADHD (attention deficit hyperactivity disorder), combined type F90.2 [facility] [address] [address] June, ADHD (attention deficit hyperactivity disorder), combined type F90.2 ; Major depressive disorder, single episode, mild F32.0 and Anxiety disorder, unspecified type F41.9 [facility] [id number] [place] [address] 21677- 9262 June, [facility] [address] [place] [address] 59844- 5277 June, ADHD (attention deficit hyperactivity disorder), combined type F90.2 [place] [id number] [address] 4[address] May, [facility] [id number] [place] [address] 98791- 0629 May, ADHD (attention deficit hyperactivity disorder), combined type F90.2 ; Major depressive disorder, single episode, mild F32.0 and Anxiety disorder, unspecified type F41.9 [facility] [id number] [place] [address] 88555- 6399 May, Anxiety disorder, unspecified type F41.9 [facility] [id number] [place] [address] 25819- 5400 Apr, [facility] [id number] [place] [address] 52553- 7014 Apr, Anxiety disorder, unspecified type F41.9 [facility] [id number] [place] [address] 52169- 8175 Apr, Anxiety disorder, unspecified type F41.9 ; Major depressive disorder, single episode, mild F32.0 and ADHD (attention deficit hyperactivity disorder), combined type F90.2 [facility] [id number] [place] [address] 96667- 8513 Apr, [facility] [address] [place] [address] 31931- 4587 Apr, ADHD (attention deficit hyperactivity disorder), combined type F90.2 ; Anxiety state F41.1 ; Depressive disorder, not elsewhere classified F32.9 ; Major depressive disorder, single episode, mild F32.0 and Anxiety disorder, unspecified type F41.9 [facility] [address] [place] [address] 20131- 6518 Mar, ADHD (attention deficit hyperactivity disorder), combined type F90.2 [facility] [address] [place] [address] 72342- 1159 Mar, Nausea R11.0 [facility] [id number] [place] [address] 90838- 3963 13 Mar, 2017 Screening for STD sexually transmitted disease Z11.3 ; Vaginal candidiasis B37.3 and Irritable bowel syndrome with diarrhea K58.0 [place] [address] [address] 04 Mar, 2017 [facility] [address] [address]- 6440 Feb, ADHD (attention deficit hyperactivity disorder), combined type F90.2 [facility] [address] [address]- 9092 Feb, Depressive disorder, not elsewhere classified F32.9 ; Anxiety state F41.1 and ADHD (attention deficit hyperactivity disorder), combined type F90.2 [place] [address] [address]- 0202 Feb, Depressive disorder, not elsewhere classified F32.9 ; Anxiety state F41.1 and ADHD (attention deficit hyperactivity disorder), combined type F90.2 [place] [address] [place] [address] 29986- 3731 Feb, ADHD (attention deficit hyperactivity disorder), combined type F90.2 [facility] [address] [address] Jan, Other viral agents as the cause of diseases classified elsewhere B97.89 and Acute upper respiratory infection, unspecified J06.9 [place] [address] [address]- 6851 Jan, ADHD (attention deficit hyperactivity disorder), combined type F90.2 ; Major depressive disorder, single episode, mild F32.0 and Anxiety disorder, unspecified type F41.9 [place] [address] [address]- 5600 Jan, [facility] [address] [place] [id number] [address]- 7250 Jan, ADHD (attention deficit hyperactivity disorder), combined type F90.2 ; Major depressive disorder, single episode, mild F32.0 and Anxiety disorder, unspecified type F41.9 [place] [id number] [place] [address] 19760- 2308 28 Dec, 2016 Irritable bowel syndrome with diarrhea K58.0 and Lower abdominal pain R10.30 [place] [address] [id number] [place] [address] 01824- 7958 09 Dec, 2016 Hospital discharge follow-up Z09 ; Mesenteric adenitis I88.0 ; IBD (inflammatory bowel disease) K52.9 and Nausea R11.0 [place] [id number] [place] [address] 37694- 8031 Nov, ADHD (attention deficit hyperactivity disorder), combined type F90.2 ; Major depressive disorder, single episode, mild F32.0 and Anxiety disorder, unspecified type F41.9 [place] [id number] [place] [address] 31349- 7624 Nov, Anxiety state F41.1 ; ADHD (attention deficit hyperactivity disorder), combined type F90.2 ; Major depressive disorder, single episode, mild F32.0 and Anxiety disorder, unspecified type F41.9 [place] [address] [id number] [place] [address] 29529- 7169 Oct, Anxiety state F41.1 ; ADHD (attention deficit hyperactivity disorder), combined type F90.2 ; Major depressive disorder, single episode, mild F32.0 and Anxiety disorder, unspecified type F41.9 [place] [address] [place] [address] 12672- 8269 Oct, ADHD (attention deficit hyperactivity disorder), combined type F90.2 ; Major depressive disorder, single episode, mild F32.0 and Anxiety disorder, unspecified type F41.9 [place] [address] [place] [address] 19713- 1687 Oct, Major depressive disorder, single episode, mild F32.0 ; Anxiety state F41.1 ; ADHD (attention deficit hyperactivity disorder), combined type F90.2 and Depressive disorder, not elsewhere classified F32.9 [facility] [id number] [place] [address] 52456 -6098 Oct, [facility] [id number] [place] [address] 90485 -6917 Oct, Cellulitis L03.90 and Plantar wart of right foot B07.0 [facility] [address] 51222- 5936 Aug, ADHD (attention deficit hyperactivity disorder), combined type F90.2 ; Major depressive disorder, single episode, mild F32.0 and Anxiety disorder, unspecified type F41.9 [facility] [id number] [place] [address] 78980- 7680 Aug, [facility] [id number] [place] [address] 32805- 6772 Jul, ADHD (attention deficit hyperactivity disorder), combined type F90.2 [facility] [id number] [place] [address] 10846- 5438 Jul, Mesenteric adenitis I88.0 [facility] [id number] [place] [address] 14739- 2094 June, [facility] [id number] [place] [address] 00533 -5858 June, Lower abdominal pain R10.30 [facility] [id number] [place] [address] 79654- 7594 June, [facility] [id number] [place] [address] 63644- 9074 June, ADHD (attention deficit hyperactivity disorder), combined type F90.2 and Major depressive disorder, single episode, mild F32.0 [facility] [id number] [place] [address] 47305- 2461 May, [facility] [id number] [place] [address] 75302- 8356 May, ADHD (attention deficit hyperactivity disorder), combined type F90.2 and Major depressive disorder, single episode, mild F32.0 [facility] [address] 53825 -4075 Apr, Abdominal pain R10.9 and Gastroenteritis and colitis, viral A08.4 [place] [address] 22473- 9002 Apr, [facility] [address] 86923 -2364 Mar, Acute urticaria L50.8 [place] [address] 23042- 6289 Mar, [place] [address] 01829- 0441 Feb, [facility] [address] 54474 -6299 Feb, Gastroenteritis K52.9 [place] [address] 74078- 2480 Feb, Irritant contact dermatitis due to cosmetics L24.3 [place] [address] 93546- 6686 Jan, [place] [address] 93351- 9398 Jan, [place] [address] 04234- 0495 Jan, ADHD (attention deficit hyperactivity disorder), combined type F90.2 and Major depressive disorder, single episode, mild F32.0 [facility] [address] 64842 -7108 Dec, Flexural eczema L20.82 [place] [address] 60087- 1384 Dec, Encounter for test Z32.00 [facility] [id number] [place] [address] 86906- 3250 Dec, [facility] [id number] [place] [address] 95253- 4999 Dec, [facility] [id number] [place] [address] 18124- 7256 Dec, [facility] [address] 54412 -5763 Nov, Sore throat J02.9 and Pharyngitis, unspecified etiology J02.9 [facility] [address] 18054- 5507 Nov, [facility] [address] 07522- 3027 Nov, [facility] [address] 41915- 3600 Nov, Generalized abdominal pain R10.84 and Slow transit constipation K59.01 [facility] [id number] [place] [address] [id number] Nov, Pharyngitis, unspecified etiology J02.9 and Rhinitis, unspecified type J31.0 [facility] [id number] [place] [address] 83245- 0599 Oct, Depressive disorder, not elsewhere classified F32.9 and ADHD (attention deficit hyperactivity disorder), combined type F90.2 [facility] [id number] [place] [address] 98459- 7140 Oct, [facility] [address] 40113- 3438 Oct, [facility] [id number] [place] [address] 36971 -1516 Oct, Strep throat J02.0 [facility] [address] 17191- 7774 Oct, [facility] [address] [address]- 1631 Oct, Well woman exam with routine gynecological exam Z01.419 and Screening for STD sexually transmitted disease Z11.3 [facility] [address] [address]- 7093 Sep, ADHD (attention deficit hyperactivity disorder), combined type F90.2 ; Anxiety state F41.1 and Depressive disorder, not elsewhere classified F32.9 [facility] [address] [address]- 7576 Sep, ADHD (attention deficit hyperactivity disorder), combined type F90.2 and Depressive disorder, not elsewhere classified F32.9 [facility] [address] [address]- 0715 Aug, [facility] [id number] [place] [address] 06885- 1058 Aug, ADHD (attention deficit hyperactivity disorder), combined type F90.2 and Depressive disorder, not elsewhere classified F32.9 [facility] [address] [address]- 2715 Aug, ADHD (attention deficit hyperactivity disorder), combined type F90.2 ; Anxiety state F41.1 and Depressive disorder, not elsewhere classified F32.9 [facility] [address] [address]- 4153 Aug, [facility] [id number] [address]- 6615 Aug, [facility] [address] [address]- 4792 Jul, ADHD (attention deficit hyperactivity disorder), combined type F90.2 ; Depressive disorder, not elsewhere classified F32.9 and Anxiety state F41.1 [facility] [address] [address]- 8162 Jul, [facility] [address] [address]- 9393 Jul, ADHD (attention deficit hyperactivity disorder), combined type F90.2 ; Anxiety state F41.1 and Depressive disorder, not elsewhere classified F32.9 [facility] [id number] [place] [address] 28908- 1209 June, [facility] [id number] [place] [address] [id number] June, Constipation K59.00 [facility] [id number] [place] [address] 46008- 6380 May, Constipation K59.00 [facility] [id number] [place] [address] 57721 -4397 May, Irritable bowel syndrome with diarrhea K58.0 [facility] [id number] [place] [address] 89766- 6003 May, [facility] [id number] [place] [address] 37316- 0725 May, [facility] [id number] [place] [address] 10614- 9905 May, [facility] [id number] [place] [address] 07595- 5697 May, [facility] [id number] [place] [address] 21414- 0114 Jan, [facility] [id number] [place] [address] 24329- 6895 Jan, [facility] [id number] [place] [address] 703533- 5487 Jan, [facility] [id number] [place] [address] [id number] 3979 Jan, [facility] [id number] [place] [address] [id number]- 1682 Jan, [facility] [place] [facility] [address] [id number] [place] [address]- 3411 Jan, [facility] [place] [facility] [address] [id number] [place] [address]- 3408 Nov, [facility] [place] [facility] [address] [id number] [place] [address]- 1313 Nov, [facility] [place] [facility] [address] [id number] [place] [address]- 2351 Oct, [facility] [place] [facility] [address] [id number] [place] [address]- 6616 Oct, [facility] [place] [facility] [address] [id number] [place] [address]- 9660 Sep, [facility] [place] [facility] [address] [id number] [place] [address]- 7545 Sep, [facility] [place] [facility] [address] [id number] [place] [address]- 2268 Aug, [facility] [place] [facility] [address] [id number] [place] [address]- 7162 Aug, [facility] [place] [facility] [address] [id number] [place] [address]- 5526 Aug, [facility] [place] [facility] [address] [id number] [place] [address]- 6402 Aug, [facility] [place] [facility] [address] [id number] [place] [address]- 5399 Aug, [facility] [place] [facility] [address] [id number] [place] [address]- 2941 Aug, [facility] [place] [facility] [address] [id number] [place] [address]- 0168 Aug, [facility] [place] [facility] [address] [id number] [place] [address]- 6010 Aug, [facility] [place] [facility] [address] [id number] [place] [address]- 2401 Jul, [facility] [place] [facility] [address] [id number] [place] [address]- 9860 Jul, [facility] [place] [facility] [address] [id number] [place] [address]- 6595 Jul, [facility] [place] [facility] [address] [id number] [place] [address]- 2782 Jul, [facility] [place] [facility] [address] [id number] [place] [address]- 9427 Jul, [facility] [place] [facility] [address] [id number] [place] [address]- 6429 Jul, [facility] [place] [facility] [address] [id number] [place] [address]- 3909 Jul, [facility] [place] [facility] [address] [id number] [place] [address]- 1542 Jul, [facility] [place] [facility] [address] [id number] [place] [address]- 5799 Jul, [facility] [place] [facility] [address] [id number] [place] [address]- 8607 June, [facility] [place] [facility] [address] [id number] [place] [address]- 2602 June, [facility] [place] [facility] [address] [id number] [place] [address]- 4195 May, [facility] [place] [facility] [address] [id number] [place] [address]- 4922 May, [facility] [place] [facility] [address] [id number] [place] [address]- 8402 May, [facility] [place] [facility] [address] [id number] [place] [address]- 8389 May, [facility] [place] [facility] [address] [id number] [place] [address]- 9687 May, [facility] [place] [facility] [address] [id number] [place] [address]- 8996 17 May, 2013 [facility] [place] [facility] [address] [id number] [place] [address]- 0102 May, [facility] [place] [facility] [address] [id number] [place] [address]- 9216 May, [facility] [place] [facility] [address] [id number] [place] [address]- 4009 May, [facility] [place] [facility] [address] [id number] [place] [address]- 3903 May, [facility] [place] [facility] [address] [id number] [place] [address]- 4708 May, [facility] [place] [facility] [address] [id number] [place] [address]- 7903 May, [facility] [place] [facility] [address] [id number] [place] [address]- 0639 Apr, [facility] [place] [facility] [address] [id number] [place] [address]- 0525 Apr, [facility] [place] [facility] [address] [id number] [place] [address]- 9305 Apr, [facility] [place] [facility] [address] [id number] [place] [address]- 0280 Apr, [facility] [place] [facility] [address] [id number] [place] [address]- 5351 Mar, [facility] [place] [facility] [address] [id number] [place] [address]- 8603 Mar, [facility] [place] [facility] [address] [id number] [place] [address]- 3425 Mar, [facility] [place] [facility] [address] [id number] [place] [address]- 3488 Mar, [facility] [place] [facility] [address] [id number] [place] [address]- 8339 Mar, 2013 [facility] [place] [facility] [address] [id number] [place] [address]- 1979 Mar, 2013 [facility] [place] [facility] [address] [id number] [place] [address]- 9476 19 Mar, 2013 [facility] [place] [facility] [address] [facility] [id number] [place] [address]- 3596 19 Mar, 2013 [facility] [place] [facility] [address] [id number] [place] [address]- 9028 19 Mar, 2013 [facility] [place] [facility] [address] [id number] [place] [address]- 1161 19 Mar, 2013 [facility] [place] [facility] [address] [facility] [id number] [place] [address]- 9846 14 Mar, 2013 [facility] [place] [facility] [address] [facility] [id number] [place] [address]- 1830 14 Mar, 2013 [facility] [place] [facility] [address] [facility] [id number] [place] [address]- 5286 13 Mar, 2013 [facility] [place] [facility] [address] [facility] [id number] [place] [address]- 0928 13 Mar, 2013 [facility] [place] [facility] [address] [facility] [id number] [place] [address]- 9956 Mar, [facility] [place] [facility] [address] [facility] [id number] [place] [address]- 0716 Mar, 2013 [facility] [place] [facility] [address] [facility] [id number] [place] [address]- 254 11 Mar, 2013 [facility] [place] [facility] [address] [facility] [id number] [place] [address]- 8559 Mar, 2013 [facility] [place] [facility] [address] [facility] [id number] [place] [address]- 4776 04 Mar, 2013 [facility] [place] [facility] [address] [facility] [id number] [place] [address]- 2549 Mar, [facility] [place] [facility] [address] [id number] [place] [address]- 1600 Feb, [facility] [place] [facility] [address] [id number] [place] [address]- 8514 Feb, [facility] [place] [facility] [address] [id number] [place] [address]- 6379 Feb, [facility] [place] [facility] [address] [id number] [place] [address]- 0127 Feb, [facility] [place] [facility] [address] [id number] [place] [address]- 1002 Feb, [facility] [place] [facility] [address] [id number] [place] [address]- 4625 Feb, [facility] [place] [facility] [address] [id number] [place] [address]- 5623 Feb, [facility] [place] [facility] [address] [id number] [place] [address]- 5911 Feb, [facility] [place] [facility] [address] [id number] [place] [address]- 0848 Feb, [facility] [place] [facility] [address] [id number] [place] [address]- 8464 Feb, [facility] [place] [facility] [address] [id number] [place] [address] Feb, [facility] [place] [facility] [address] [id number] [place] [address] Feb, [facility] [place] [facility] [address] [id number] [place] [address] Feb, [facility] [place] [facility] [address] [id number] [place] [address] Feb, [facility] [place] [facility] [address] [id number] [place] [address] Feb, [facility] [place] [facility] [address] [id number] [place] [address] 15 Feb, 2013 [facility] [address] [id number] [place] [address] 15 Feb, 2013 [facility] [place] [facility] [address] [id number] [place] [address] 15 Feb, 2013 [facility] [place] [facility] [address] [id number] [place] [address] Feb, [facility] [place] [facility] [address] [id number] [place] [address] Feb, [facility] [place] [facility] [address] [id number] [place] [address] Feb, [facility] [place] [facility] [address] [id number] [place] [address] Feb, [facility] [address] [id number] [place] [address] Feb, [facility] [place] [facility] [address] [id number] [place] [address] 24 Jan, 2013 [facility] [place] [facility] [address] [id number] [place] [address] 24 Jan, 2013 [facility] [place] [facility] [address] [facility] [id number] [place] [address] 19 Jan, 2013 [facility] [place] [facility] [address] [id number] [place] [address] 18 Jan, 2013 [facility] [place] [facility] [address] [id number] [place] [address] 18 Jan, 2013 [facility] [place] [facility] [address] [id number] [place] [address] 18 Jan, 2013 [facility] [place] [facility] [address] [id number] [place] [address] 18 Jan, 2013 [facility] [place] [facility] [address] [facility] [id number] [place] [address] 17 Jan, 2013 [facility] [place] [facility] [address] [id number] [place] [address] Jan, [facility] [place] [facility] [address] [id number] [place] [address] Jan, [facility] [place] [facility] [address] [id number] [place] [address] Jan, [facility] [place] [facility] [address] [id number] [place] [address] Jan, [facility] [place] [facility] [address] [id number] [place] [address] Jan, [facility] [place] [facility] [address] [id number] [place] [address] Dec, [facility] [place] [facility] [address] [id number] [place] [address] Dec, [facility] [place] [facility] [address] [id number] [place] [address] Dec, [facility] [place] [facility] [address] [id number] [place] [address] Dec, [facility] [place] [facility] [address] [id number] [place] [address] Dec, [facility] [place] [facility] [address] [id number] [place] [address] Dec, [facility] [place] [facility] [address] [id number] [place] [address] Nov, [facility] [place] [facility] [address] [id number] [place] [address] Nov, [facility] [place] [facility] [address] [id number] [place] [address] Nov, [facility] [place] [facility] [address] [id number] [place] [address] Nov, [facility] [place] [facility] [address] [id number] [place] [address] Nov, [facility] [id number] [address] Nov, [facility] [id number] [address] Oct, [facility] [id number] [address] Oct, [facility] [id number] [address] Oct, [facility] [id number] [address] [address] Oct, [facility] [id number] [address] Oct, [facility] [id number] [address] Oct, [facility] [id number] [address] Oct, IMMUNIZATIONS No Known Immunizations SOCIAL HISTORY Never Assessed REASON FOR VISIT f/u PLAN OF CARE Activity Details Follow Up Next available Reason: VITAL SIGNS MEDICATIONS Medication Instructions Dosage Frequency Start Date End Date Duration Status Promethazine HCl 25 MG Orally every 4 hrs 1 tablet as needed 4h Unknown Protonix 40 MG Orally Once a day 1 tablet 24h Unknown Venlafaxine HCl ER 150MG TAKE ONE CAPSULE BY MOUTH ONCE DAILY WITH FOOD Unknown Ondansetron 4 MG Orally every 8 hrs prn 1 tablet on the tongue and allow to dissolve Dec, 14 days Unknown Ritalin LA 20 mg Orally Once a day 1 capsule in the morning 24h Feb, 28 days Unknown HydrOXYzine HCl 25 MG Orally three times a day as needed for anxiety 1 tablet as needed Jan, Unknown RESULTS No Results PROCEDURES No Known procedures [...]
--- OUTSIDE RECORDS SUMMARY | 2017-09-10 18:28 | XMS REPORT | Continuity of Care Document ---
Demographics x Preferred Language Unknown Marital Status Unknown Yazdanism Affiliation Unknown Race Unknown Ethnic Group Unknown Author Author [facility] Organization [facility] Address Unknown Phone Unavailable Allergies Active Description Code Type Severity Reaction Onset Reported/Identified Relationship to Patient Clinical Status Yes No Known Drug Allergies [id number] ND N/A N/A Confirmed or Verified Yes No Known Drug Allergies [id number] Drug Allergy Unknown N/A 08/06/2016 Medications Medication Packaging Start Date Stop Date Route Dosage Sig Escitalopram Oxalate 10 MG Oral Tablet 01/01/2015 02/01/2015 ORAL 10MG Methylphenidate HCl ER 36 MG Oral Tablet Extended Release 01/01/2015 02/01/2015 ORAL 36MG Escitalopram Oxalate 10 MG Oral Tablet 01/22/2015 03/24/2015 ORAL 10MG Methylphenidate HCl ER 36 MG Oral Tablet Extended Release 01/22/2015 02/22/2015 ORAL 36MG Escitalopram Oxalate 20 MG Oral Tablet 03/12/2015 04/12/2015 ORAL 20MG Escitalopram Oxalate 20 MG Oral Tablet 04/09/2015 05/10/2015 ORAL 20MG Escitalopram Oxalate 20 MG Oral Tablet 05/07/2015 06/07/2015 ORAL 20MG Rozerem 8 MG Oral Tablet 201506/07/2015 ORAL 8MG Methylphenidate HCl 10 MG Oral Tablet 05/07/2015 06/07/2015 ORAL 10MG Methylphenidate HCl ER 36 MG Oral Tablet Extended Release 05/07/2015 06/07/2015 ORAL 36MG Problems Date Dx Coded Attending Type Code Diagnosis Diagnosed By 11/02/2012 626.0 AMENORRHEA 11/02/2012 V72.42 TEST POSITIVE RESULT 11/02/2012 626.0 AMENORRHEA 11/02/2012 V72.42 TEST POSITIVE RESULT 11/02/2012 LEONARD CHIN DO 626.0 AMENORRHEA 11/02/2012 LEONARD CHIN DO V72.42 TEST POSITIVE RESULT 11/02/2012 JERRI JACKSON APRN 626.0 AMENORRHEA 11/02/2012 JERRI JACKSON APRN V72.42 TEST POSITIVE RESULT 11/02/2012 CHIN DO, LEONARD K 626.0 AMENORRHEA 11/02/2012 ELSY PICHARDO LEONARD K V72.42 TEST POSITIVE RESULT 11/02/2012 ELSY PICHARDO, LEONARD K 626.0 AMENORRHEA 11/02/2012 CHIN , LEONARD K V72.42 TEST POSITIVE RESULT 11/02/2012 GENARO JURADO MD N 626.0 AMENORRHEA 11/02/2012 GENARO JURADO MD V72.42 TEST POSITIVE RESULT 11/02/2012 RAJOTTE BOWLING BALL FINISHER, JERRI A 626.0 AMENORRHEA 11/02/2012 RICOE BOWLING BALL FINISHER, JERRI A V72.42 TEST POSITIVE RESULT 11/02/2012 GENARO JURADO MD N 626.0 AMENORRHEA 11/02/2012 GENARO JURADO MD V72.42 TEST POSITIVE RESULT 11/02/2012 ELSY PICHARDO, LEONARD K 626.0 AMENORRHEA 11/02/2012 LORAINE CHIN DOA K V72.42 TEST POSITIVE RESULT 11/02/2012 GENARO JURADO MD N 626.0 AMENORRHEA 11/02/2012 GENARO JURADO MD V72.42 TEST POSITIVE RESULT 11/02/2012 [facility] A 626.0 AMENORRHEA 11/02/2012 [facility] Mcgrath V72.42 TEST POSITIVE RESULT 11/02/2012 GENARO JURADO MD N 626.0 AMENORRHEA 11/02/2012 GENARO JURADO MD V72.42 TEST POSITIVE RESULT 11/02/2012 GENARO JURADO MD N 626.0 AMENORRHEA 11/02/2012 GENARO JURADO MD V72.42 TEST POSITIVE RESULT 11/02/2012 GENARO JURADO MD N 626.0 AMENORRHEA 11/02/2012 GENARO JURADO MD V72.42 TEST POSITIVE RESULT 11/02/2012 [facility] [place] A 626.0 AMENORRHEA 11/02/2012 [facility] [place] Mcgrath V72.42 TEST POSITIVE RESULT 11/02/2012 GENARO JURADO MD N 626.0 AMENORRHEA 11/02/2012 GENARO JURADO MD V72.42 TEST POSITIVE RESULT 11/02/2012 RHIANNON POLANCO, GENARO N 626.0 AMENORRHEA 11/02/2012 GENARO JURADO MD V72.42 TEST POSITIVE RESULT 11/02/2012 [facility] [place] A 626.0 AMENORRHEA 11/02/2012 [facility] A V72.42 TEST POSITIVE RESULT 11/02/2012 RHIANNON POLANCO, GENARO N 626.0 AMENORRHEA 11/02/2012 GENARO JURADO MD V72.42 TEST POSITIVE RESULT 11/02/2012 RHIANNON POLANCO, GENARO N 626.0 AMENORRHEA 11/02/2012 GENARO JURADO MD V72.42 TEST POSITIVE RESULT 11/02/2012 CARY BOWLING BALL FINISHER, JOSE ALEJANDRO A 626.0 AMENORRHEA 11/02/2012 CARY BOWLING BALL FINISHER, JOSE ALEJANDRO A V72.42 TEST POSITIVE RESULT 11/02/2012 CARY BOWLING BALL FINISHER, JOSE ALEJANDRO A 626.0 AMENORRHEA 11/02/2012 CARY BOWLING BALL FINISHER, JOSE ALEJANDRO A V72.42 TEST POSITIVE RESULT 11/02/2012 LEONARD CHIN DO K 626.0 AMENORRHEA 11/02/2012 LEOANRD CHIN DO K V72.42 TEST POSITIVE RESULT 11/02/2012 [facility] DDS, ADDISON B 626.0 AMENORRHEA 11/02/2012 [facility] DDS, ADDISON B V72.42 TEST POSITIVE RESULT 11/07/2012 V23.83 SUPERVISION OF HIGH-RISK WITH YOUNG PRIMIGRAVIDA 11/07/2012 LEONARD CHIN DO V23.83 SUPERVISION OF HIGH-RISK WITH YOUNG PRIMIGRAVIDA 11/07/2012 JERRI JACKSON APRN V23.83 SUPERVISION OF HIGH-RISK WITH YOUNG PRIMIGRAVIDA 11/07/2012 LEONARD CHIN DO V23.83 SUPERVISION OF HIGH-RISK WITH YOUNG PRIMIGRAVIDA 11/07/2012 LEONARD CHIN DO V23.83 SUPERVISION OF HIGH-RISK WITH YOUNG PRIMIGRAVIDA 11/07/2012 GENARO JURADO MD V23.83 SUPERVISION OF HIGH-RISK WITH YOUNG PRIMIGRAVIDA 11/07/2012 JERRI JACKSON APRN V23.83 SUPERVISION OF HIGH-RISK WITH YOUNG PRIMIGRAVIDA 11/07/2012 GENARO JURADO MD V23.83 SUPERVISION OF HIGH-RISK WITH YOUNG PRIMIGRAVIDA 11/07/2012 LEONARD CHIN DO V23.83 SUPERVISION OF HIGH-RISK WITH YOUNG PRIMIGRAVIDA 11/07/2012 GENARO JURADO MD V23.83 SUPERVISION OF HIGH-RISK WITH YOUNG PRIMIGRAVIDA 11/07/2012 [facility] SUPERVISION OF HIGH-RISK WITH YOUNG PRIMIGRAVIDA 11/07/2012 GENARO JURADO MD V23.83 SUPERVISION OF HIGH-RISK WITH YOUNG PRIMIGRAVIDA 11/07/2012 GENARO JURADO MD V23.83 SUPERVISION OF HIGH-RISK WITH YOUNG PRIMIGRAVIDA 11/07/2012 GENARO JURADO MD V23.83 SUPERVISION OF HIGH-RISK WITH YOUNG PRIMIGRAVIDA 11/07/2012 [facility].83 SUPERVISION OF HIGH-RISK WITH YOUNG PRIMIGRAVIDA 11/07/2012 GENARO JURADO MD V23.83 SUPERVISION OF HIGH-RISK WITH YOUNG PRIMIGRAVIDA 11/07/2012 GENARO JURADO MD V23.83 SUPERVISION OF HIGH-RISK WITH YOUNG PRIMIGRAVIDA 11/07/2012 [facility] V23.83 SUPERVISION OF HIGH-RISK WITH YOUNG PRIMIGRAVIDA 11/07/2012 GENARO JURADO MD V23.83 SUPERVISION OF HIGH-RISK WITH YOUNG PRIMIGRAVIDA 11/07/2012 GENARO JURADO MD V23.83 SUPERVISION OF HIGH-RISK WITH YOUNG PRIMIGRAVIDA 11/07/2012 JOSE ALEJANDRO TOWNSEND APRN V23.83 SUPERVISION OF HIGH-RISK WITH YOUNG PRIMIGRAVIDA 11/07/2012 JOSE ALEJANDRO TOWNSEND APRN V23.83 SUPERVISION OF HIGH-RISK WITH YOUNG PRIMIGRAVIDA 11/07/2012 LEONARD CHIN DO V23.83 SUPERVISION OF HIGH-RISK WITH YOUNG PRIMIGRAVIDA 11/07/2012 ANGIE CHAN, ADDISON Brown V23.83 SUPERVISION OF HIGH-RISK WITH YOUNG PRIMIGRAVIDA 11/14/2012 ELSY PICHARDO, LEONARD K V23.9 , HIGH-RISK (UNSPEC) 11/14/2012 MICHAELOTTE BOWLING BALL FINISHER, JERRI A V23.9 , HIGH-RISK (UNSPEC) 11/14/2012 ELSY PICHARDO, LEONARD K V23.9 , HIGH-RISK (UNSPEC) 11/14/2012 ELSY PICHARDO, LEONARD K V23.9 , HIGH-RISK (UNSPEC) 11/14/2012 GENARO JURADO MD N V23.9 , HIGH-RISK (UNSPEC) 11/14/2012 MANUEL BOWLING BALL FINISHER, JERRI A V23.9 , HIGH-RISK (UNSPEC) 11/14/2012 GENARO JURADO MD V23.9 , HIGH-RISK (UNSPEC) 11/14/2012 ELSY PICHARDO, LEONARD K V23.9 , HIGH-RISK (UNSPEC) 11/14/2012 GENARO JURADO MD N V23.9 , HIGH-RISK (UNSPEC) 11/14/2012 [facility] A V23.9 , HIGH-RISK (UNSPEC) 11/14/2012 GENARO JURADO MD N V23.9 , HIGH-RISK (UNSPEC) 11/14/2012 GENARO JURADO MD N V23.9 , HIGH-RISK (UNSPEC) 11/14/2012 GENARO JURADO MD N V23.9 , HIGH-RISK (UNSPEC) 11/14/2012 [facility] A V23.9 , HIGH-RISK (UNSPEC) 11/14/2012 GENARO JURADO MD N V23.9 , HIGH-RISK (UNSPEC) 11/14/2012 GENARO JURADO MD N V23.9 , HIGH-RISK (UNSPEC) 11/14/2012 [facility] [place] A V23.9 , HIGH-RISK (UNSPEC) 11/14/2012 GENARO JURADO MD N V23.9 , HIGH-RISK (UNSPEC) 11/14/2012 GENARO JURADO MD N V23.9 , HIGH-RISK (UNSPEC) 11/14/2012 CARY BOWLING BALL FINISHER, JOSE ALEJANDRO A V23.9 , HIGH-RISK (UNSPEC) 11/14/2012 JOSE ALEJANDRO TOWNSEND APRN A V23.9 , HIGH-RISK (UNSPEC) 11/14/2012 CHIN DO, LEONARD K V23.9 , HIGH-RISK (UNSPEC) 11/14/2012 ADDISON ADAMS DDS V23.9 , HIGH-RISK (UNSPEC) 11/22/2012 CHIN DO LEONARD K 530.81 GERD 11/22/2012 CHIN DO LEONARD K 655.03 ABNORMAL TETRA SCREEN (NTD) 11/22/2012 CHIN DO LEONARD K 692.9 CONTACT DERMATITIS AND OTHER ECZEMA UNSPECIFIED CAUSE 11/22/2012 CHIN DO, LEONARD K 530.81 GERD 11/22/2012 CHIN DO, LEONARD K 655.03 ABNORMAL TETRA SCREEN (NTD) 11/22/2012 ELSY PICHARDO LEONARD K 692.9 CONTACT DERMATITIS AND OTHER ECZEMA UNSPECIFIED CAUSE 11/22/2012 GENARO JURADO MD 530.81 GERD 11/22/2012 GENARO JURADO MD 655.03 ABNORMAL TETRA SCREEN (NTD) 11/22/2012 GENARO JURADO MD 692.9 CONTACT DERMATITIS AND OTHER ECZEMA UNSPECIFIED CAUSE 11/22/2012 YASMANY JACKSON APRNYL A 530.81 GERD 11/22/2012 YASMANY JACKSON APRNYL A 655.03 ABNORMAL TETRA SCREEN (NTD) 11/22/2012 JERRI JACKSON APRN A 692.9 CONTACT DERMATITIS AND OTHER ECZEMA UNSPECIFIED CAUSE 11/22/2012 GENARO JURADO MD 530.81 GERD 11/22/2012 GENRAO JURADO MD 655.03 ABNORMAL TETRA SCREEN (NTD) 11/22/2012 GENARO JURADO MD 692.9 CONTACT DERMATITIS AND OTHER ECZEMA UNSPECIFIED CAUSE 11/22/2012 LORAINE CHIN DOA K 530.81 GERD 11/22/2012 LORAINE CHIN DOA K 655.03 ABNORMAL TETRA SCREEN (NTD) 11/22/2012 LORAINE CHIN DOA K 692.9 CONTACT DERMATITIS AND OTHER ECZEMA UNSPECIFIED CAUSE 11/22/2012 GENARO JURADO MD 530.81 GERD 11/22/2012 GENARO JURADO MD 655.03 ABNORMAL TETRA SCREEN (NTD) 11/22/2012 GENARO JURADO MD 692.9 CONTACT DERMATITIS AND OTHER ECZEMA UNSPECIFIED CAUSE 11/22/2012 [facility] Mcgrath 530.81 GERD 11/22/2012 [facility] 655.03 ABNORMAL TETRA SCREEN (NTD) 11/22/2012 [facility] Alcides 692.9 CONTACT DERMATITIS AND OTHER ECZEMA UNSPECIFIED CAUSE 11/22/2012 GENARO JURADO MD N 530.81 GERD 11/22/2012 GENARO JURADO MD 655.03 ABNORMAL TETRA SCREEN (NTD) 11/22/2012 GENARO JURADO MD 692.9 CONTACT DERMATITIS AND OTHER ECZEMA UNSPECIFIED CAUSE 11/22/2012 GENARO JURADO MD N 530.81 GERD 11/22/2012 GENARO JURADO MD N 655.03 ABNORMAL TETRA SCREEN (NTD) 11/22/2012 GENARO JURADO MD N 692.9 CONTACT DERMATITIS AND OTHER ECZEMA UNSPECIFIED CAUSE 11/22/2012 GENARO JURADO MD N 530.81 GERD 11/22/2012 GENARO JURADO MD N 655.03 ABNORMAL TETRA SCREEN (NTD) 11/22/2012 GENARO JURADO MD N 692.9 CONTACT DERMATITIS AND OTHER ECZEMA UNSPECIFIED CAUSE 11/22/2012 [facility] Mcgrath 530.81 GERD 11/22/2012 [facility] Mcgrath 655.03 ABNORMAL TETRA SCREEN (NTD) 11/22/2012 [facility] Mcgrath 692.9 CONTACT DERMATITIS AND OTHER ECZEMA UNSPECIFIED CAUSE 11/22/2012 GENARO JURADO MD N 530.81 GERD 11/22/2012 GENARO JURADO MD N 655.03 ABNORMAL TETRA SCREEN (NTD) 11/22/2012 GENARO JURADO MD N 692.9 CONTACT DERMATITIS AND OTHER ECZEMA UNSPECIFIED CAUSE 11/22/2012 GENARO JURADO MD N 530.81 GERD 11/22/2012 GENARO JURADO MD N 655.03 ABNORMAL TETRA SCREEN (NTD) 11/22/2012 GENARO JURADO MD N 692.9 CONTACT DERMATITIS AND OTHER ECZEMA UNSPECIFIED CAUSE 11/22/2012 [facility] Mcgrath 530.81 GERD 11/22/2012 [facility] Mcgrath 655.03 ABNORMAL TETRA SCREEN (NTD) 11/22/2012 [facility] A 692.9 CONTACT DERMATITIS AND OTHER ECZEMA UNSPECIFIED CAUSE 11/22/2012 GENARO JURADO MD 530.81 GERD 11/22/2012 GENARO JURADO MD 655.03 ABNORMAL TETRA SCREEN (NTD) 11/22/2012 GENARO JURADO MD 692.9 CONTACT DERMATITIS AND OTHER ECZEMA UNSPECIFIED CAUSE 11/22/2012 GENARO JURADO MD 530.81 GERD 11/22/2012 GENARO JURADO MD 655.03 ABNORMAL TETRA SCREEN (NTD) 11/22/2012 GENARO JURADO MD 692.9 CONTACT DERMATITIS AND OTHER ECZEMA UNSPECIFIED CAUSE 11/22/2012 JOSE ALEJANDRO TOWNSEND APRN A 530.81 GERD 11/22/2012 JOSE ALEJANDRO TOWNSEND APRN A 655.03 ABNORMAL TETRA SCREEN (NTD) 11/22/2012 JOSE ALEJANDRO TOWNSEND APRN A 692.9 CONTACT DERMATITIS AND OTHER ECZEMA UNSPECIFIED CAUSE 11/22/2012 JOSE ALEJANDRO TOWNSEND APRN A 530.81 GERD 11/22/2012 CARY LÓPEZ JOSE ALEJANDRO A 655.03 ABNORMAL TETRA SCREEN (NTD) 11/22/2012 CARY LÓPEZ JOSE ALEJANDRO A 692.9 CONTACT DERMATITIS AND OTHER ECZEMA UNSPECIFIED CAUSE 11/22/2012 LEONARD CHIN DO K 530.81 GERD 11/22/2012 LEONARD CHIN DO K 655.03 ABNORMAL TETRA SCREEN (NTD) 11/22/2012 LEONARD CHIN DO K 692.9 CONTACT DERMATITIS AND OTHER ECZEMA UNSPECIFIED CAUSE 11/22/2012 ANGIE DDS, ADDISON B 530.81 GERD 11/22/2012 ANGIE DDS, ADDISON B 655.03 ABNORMAL TETRA SCREEN (NTD) 11/22/2012 ANGIE DDS, ADDISON B 692.9 CONTACT DERMATITIS AND OTHER ECZEMA UNSPECIFIED CAUSE 2013 GENARO JURADO MD N V04.81 FLU SHOT 2013 JERRI JACKSON APRN A V04.81 FLU SHOT 2013 GENARO JURADO MD V04.81 FLU SHOT 2013 LEONARD CHIN DO K V04.81 FLU SHOT 2013 GENARO JURADO MD V04.81 FLU SHOT 2013 [facility] A V04.81 FLU SHOT 2013 RHIANNON POLANCO, GENARO N V04.81 FLU SHOT 2013 RHIANNON POLANCO, GENARO N V04.81 FLU SHOT 2013 RHIANNON POLANCO, GENARO N V04.81 FLU SHOT 2013 [facility] [place] A V04.81 FLU SHOT 2013 RHIANNON POLANCO, GENARO N V04.81 FLU SHOT 2013 RHIANNON POLANCO, GENARO N V04.81 FLU SHOT 2013 [facility] [place] A V04.81 FLU SHOT 2013 RHIANNON POLANCO, GENARO N V04.81 FLU SHOT 2013 RHIANNON POLANCO, GENARO N V04.81 FLU SHOT 2013 CARY BOWLING BALL FINISHER, JOSE ALEJANDRO A V04.81 FLU SHOT 2013 CARY BOWLING BALL FINISHER, JOSE ALEJANDRO A V04.81 FLU SHOT 2013 CHIN DO, LEONARD K V04.81 FLU SHOT 2013 ANGIE DDS, ADDISON B V04.81 FLU SHOT 01/23/2013 JERRI JACKSON APRN A 477.9 RHINITIS 01/23/2013 YASMANY JACKSON APRNYL A V22.2 INCIDENTAL 01/23/2013 GENARO JURADO MD N 477.9 RHINITIS 01/23/2013 GENARO JURADO MD V22.2 INCIDENTAL 01/23/2013 CHIN LEONARD PICHARDO 477.9 RHINITIS 01/23/2013 CHIN LEONARD PICHARDO V22.2 INCIDENTAL 01/23/2013 GENARO JURADO MD N 477.9 RHINITIS 01/23/2013 GENARO JURADO MD V22.2 INCIDENTAL 01/23/2013 [facility] Mcgrath 477.9 RHINITIS 01/23/2013 [facility] Mcgrath V22.2 INCIDENTAL 01/23/2013 GENARO JURADO MD 477.9 RHINITIS 01/23/2013 GENARO JURADO MD N V22.2 INCIDENTAL 01/23/2013 GENARO JURADO MD 477.9 RHINITIS 01/23/2013 RHIANNON POLANCO, GENARO N V22.2 INCIDENTAL 01/23/2013 GENARO JURADO MD N 477.9 RHINITIS 01/23/2013 RHIANNON POLANCO, GENARO N V22.2 INCIDENTAL 01/23/2013 [facility] A 477.9 RHINITIS 01/23/2013 [facility] A V22.2 INCIDENTAL 01/23/2013 GENARO JURADO MD N 477.9 RHINITIS 01/23/2013 RHIANNON POLANCO, GENARO N V22.2 INCIDENTAL 01/23/2013 RHIANNON POLANCO, GENARO N 477.9 RHINITIS 01/23/2013 GENARO JURADO MD N V22.2 INCIDENTAL 01/23/2013 [facility] A 477.9 RHINITIS 01/23/2013 [facility] A V22.2 INCIDENTAL 01/23/2013 GENARO JURADO MD N 477.9 RHINITIS 01/23/2013 GENARO JURADO MD N V22.2 INCIDENTAL 01/23/2013 GENARO JURADO MD N 477.9 RHINITIS 01/23/2013 RHIANNON POLANCO, GENARO N V22.2 INCIDENTAL 01/23/2013 CARY [employer]LING [employer]ALL FINISHER, JOSE ALEJANDRO A 477.9 RHINITIS 01/23/2013 CARY BOWLING BALL FINISHER, JOSE ALEJANDRO A V22.2 INCIDENTAL 01/23/2013 CARY BOWLING BALL FINISHER, JOSE ALEJANDRO A 477.9 RHINITIS 01/23/2013 CARY BOWLING BALL FINISHER, JOSE ALEJANDRO A V22.2 INCIDENTAL 01/23/2013 CHIN DO, LEONARD K 477.9 RHINITIS 01/23/2013 CHIN DO LEONARD K V22.2 INCIDENTAL 01/23/2013 ANGIE DDS, ADDISON B 477.9 RHINITIS 01/23/2013 ANGIE DDS, ADDISON B V22.2 INCIDENTAL 01/28/2013 LORAINE CHIN DOA K 296.90 MOOD DISORDER NOS 01/28/2013 GENARO JURADO MD 296.90 MOOD DISORDER NOS 01/28/2013 [facility] [place] Mcgrath 296.90 MOOD DISORDER NOS 01/28/2013 GENARO JURADO MD 296.90 MOOD DISORDER NOS 01/28/2013 ANISHA JURADO MDY N 296.90 MOOD DISORDER NOS 01/28/2013 ANISHA JURADO MDY N 296.90 MOOD DISORDER NOS 01/28/2013 [facility] A 296.90 MOOD DISORDER NOS 01/28/2013 RHIANNON POLANCO GENARO N 296.90 MOOD DISORDER NOS 01/28/2013 RHIANNON POLANCO GENARO N 296.90 MOOD DISORDER NOS 01/28/2013 [facility] A 296.90 MOOD DISORDER NOS 01/28/2013 RHIANNON POLANCO GENARO N 296.90 MOOD DISORDER NOS 01/28/2013 RHIANNON POLANCO GENARO N 296.90 MOOD DISORDER NOS 01/28/2013 CARYTess LÓPEZ JOSE ALEJANDRO A 296.90 MOOD DISORDER NOS 01/28/2013 CARYTess LÓPEZ JOSE ALEJANDRO A 296.90 MOOD DISORDER NOS 01/28/2013 LEONARD CHIN DO K 296.90 MOOD DISORDER NOS 01/28/2013 ADDISON ADAMS DDS B 296.90 MOOD DISORDER NOS 02/05/2013 RHIANNON POLANCO GENARO N 296.90 MOOD DISORDER NOS 02/05/2013 CHIN LEONARD PICHARDO K 296.90 MOOD DISORDER NOS 02/05/2013 RHIANNON POLANCO GENARO N 296.90 MOOD DISORDER NOS 02/05/2013 [facility] A 296.90 MOOD DISORDER NOS 02/05/2013 RHIANNON POLANCO GENARO N 296.90 MOOD DISORDER NOS 02/05/2013 RHIANNON POLANCO GENARO N 296.90 MOOD DISORDER NOS 02/05/2013 RHIANNON POLANCO GENARO N 296.90 MOOD DISORDER NOS 02/05/2013 [facility] A 296.90 MOOD DISORDER NOS 02/05/2013 RHIANNON POLANCO GENARO N 296.90 MOOD DISORDER NOS 02/05/2013 RHIANNON POLANCO GENARO N 296.90 MOOD DISORDER NOS 02/05/2013 [facility] A 296.90 MOOD DISORDER NOS 02/05/2013 RHIANNON POLANCO GENARO N 296.90 MOOD DISORDER NOS 02/05/2013 RHAINNON OPLANCO GENARO N 296.90 MOOD DISORDER NOS 02/05/2013 CARYMAXIMILIANO LÓPEZ JOSE ALEJANDRO A 296.90 MOOD DISORDER NOS 02/05/2013 CARY [employer]ALL FINISHER, JOSE ALEJANDRO A 296.90 MOOD DISORDER NOS 02/05/2013 LEONARD CHIN DO 296.90 MOOD DISORDER NOS 02/05/2013 ANGIEADDISON FLORES DDS 296.90 MOOD DISORDER NOS 02/15/2013 GENARO JURADO MD Ot 599.0 URIN TRACT INFECTION NOS 02/15/2013 GENARO JURADO MD Ot 646.63 INFECTION-ANTEPARTUM 02/27/2013 GENARO JURADO MD Ot 276.51 DEHYDRATION 02/27/2013 GENARO JURADO MD Ot 646.83 PREG COMPL NEC-ANTEPART 03/06/2013 GENARO JURADO MD 649.60 UTER INE SIZE DATE DISCREPANCY -SGA 03/06/2013 GENARO JURADO MD V06.1 TDAP DX 03/06/2013 [facility] Mc[place]ath 649.60 UTER INE SIZE DATE DISCREPANCY -SGA 03/06/2013 [facility] [place] V06.1 TDAP DX 03/06/2013 GENARO JURADO MD N 649.60 UTER INE SIZE DATE DISCREPANCY -SGA 03/06/2013 GENARO JURADO MD V06.1 TDAP DX 03/06/2013 GENARO JURADO MD N 649.60 UTER INE SIZE DATE DISCREPANCY -SGA 03/06/2013 GENARO JURADO MD N V06.1 TDAP DX 03/06/2013 GENARO JURADO MD N 649.60 UTER INE SIZE DATE DISCREPANCY -SGA 03/06/2013 GENARO JURADO MD V06.1 TDAP DX 03/06/2013 [facility] Mcgrath 649.60 UTER INE SIZE DATE DISCREPANCY -SGA 03/06/2013 [facility] Mc[place] V06.1 TDAP DX 03/06/2013 GENARO JURADO MD N 649.60 UTER INE SIZE DATE DISCREPANCY -SGA 03/06/2013 GENARO JURADO MD N V06.1 TDAP DX 03/06/2013 GENARO JURADO MD N 649.60 UTER INE SIZE DATE DISCREPANCY -SGA 03/06/2013 GENARO JURADO MD N V06.1 TDAP DX 03/06/2013 [facility] Mcgrath 649.60 UTER INE SIZE DATE DISCREPANCY -SGA 03/06/2013 [facility] A V06.1 TDAP DX 03/06/2013 GENARO JURADO MD 649.60 UTER INE SIZE DATE DISCREPANCY -SGA 03/06/2013 GENARO JURADO MD V06.1 TDAP DX 03/06/2013 GENARO JURADO MD 649.60 UTER INE SIZE DATE DISCREPANCY -SGA 03/06/2013 GENARO JURADO MD V06.1 TDAP DX 03/06/2013 CARY [employer]ALL FINISHER, JOSE ALEJANDRO A 649.60 UTER INE SIZE DATE DISCREPANCY -SGA 03/06/2013 CARY BOWLING BALL FINISHER, JOSE ALEJANDRO A V06.1 TDAP DX 03/06/2013 CARY BOWLING BALL FINISHER, JOSE ALEJANDRO A 649.60 UTER INE SIZE DATE DISCREPANCY -SGA 03/06/2013 CARY BOWLING BALL FINISHER, JOSE ALEJANDRO A V06.1 TDAP DX 03/06/2013 LORAINE CHIN DOA K 649.60 UTER INE SIZE DATE DISCREPANCY -SGA 03/06/2013 CHIN LEONARD K V06.1 TDAP DX 03/06/2013 ANGIE DDS, ADDISON B 649.60 UTER INE SIZE DATE DISCREPANCY -SGA 03/06/2013 ANGIE DDS, ADDISON B V06.1 TDAP DX 03/24/2013 GENARO JURADO MD N Ot 648.73 BONE DISORDER-ANTEPARTUM 03/24/2013 GENARO JURADO MD Ot 724.1 PAIN IN THORACIC SPINE 04/04/2013 GENARO JURADO MD Ot 626.7 POSTCOITAL BLEEDING 04/04/2013 GENARO JURADO MD Ot 644.13 THREAT LABOR NEC-ANTEPAR 04/04/2013 GENARO JURADO MD Ot 646.83 PREG COMPL NEC-ANTEPART 04/25/2013 GENARO JURADO MD Ot 656.51 POOR GROWTH-DELIV 04/25/2013 GENARO JURADO MD Ot 660.41 SHOULDER DYSTOCIA-DELIV 04/25/2013 GENARO JURADO MD Ot 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 04/25/2013 GENARO JURADO MD Ot 664.11 DEL W 2 DEG LACERAT-DEL 04/25/2013 RHIANNON POLANCO, GENARO Pulido Ot V03.82 PROPHYLACTIC VACC AGAINST STREPTOCOCCUS 04/25/2013 RHIANNON POLANCO, GENARO Pulido Ot V27.0 DELIVER-SINGLE LIVEBORN 06/02/2013 JOE POLANCO, GEORGINA Sierra Ot 079.99 VIRAL INFECTION NOS 06/02/2013 JOE POLANCO, GEORGINA Sierra Ot 288.60 LEUKOCYTOSIS, UNSPECIFIED 06/02/2013 JOE POLANCO, GEORGINA Sierra Ot 729.5 PAIN IN LIMB 06/02/2013 GEORGINA DIAZ MD Ot 780.4 DIZZINESS AND GIDDINESS 06/02/2013 GEORGINA DIAZ MD Ot 780.60 FEVER, UNSPECIFIED 06/12/2013 JOSE ALEJANDRO TOWNSEND APRN A 564.00 UNSPECIFIED CONSTIPATION 06/12/2013 JOSE ALEJANDRO TWONSEND APRN A V24.2 F/U, ROUTINE 06/12/2013 JOSE ALEJANDRO TOWNSEND APRN A V25.01 CONTRACEPTION - ORAL CONTRACEPTION 06/12/2013 LORAINE CHIN DOA K 564.00 UNSPECIFIED CONSTIPATION 06/12/2013 CHIN DO LEONARD K V24.2 F/U, ROUTINE 06/12/2013 ELSY PICHARDO LEONARD K V25.01 CONTRACEPTION - ORAL CONTRACEPTION 06/12/2013 ANGIE DDS, ADDISON B 564.00 UNSPECIFIED CONSTIPATION 06/12/2013 ANGIE DDS, ADDISON B V24.2 F/U, ROUTINE 06/12/2013 ANGIE DDS, ADDISON B V25.01 CONTRACEPTION - ORAL CONTRACEPTION 07/08/2013 RHIANNON POLANCO, GENARO Pulido Ot 656.53 POOR GRTH-ANTEPART 09/19/2013 ANGIE DDS, ADDISON B V72.2 DENTAL EXAMINATION 11/29/2013 JACY CORREIA 788.41 URINARY FREQUENCY 12/03/2013 HANNA TAI 789.09 ABDOMINAL PAIN, OTHER 06/13/2014 BRENDA ADAMS DO Ot 845.00 SPRAIN OF ANKLE NOS 06/13/2014 BRENDA ADAMS DO Ot 959.7 LOWER LEG INJURY NOS 06/13/2014 BRENDA ADAMS DO Ot E000.8 OTHER EXTERNAL CAUSE STATUS 06/13/2014 BRENDA ADAMS DO Ot E849.0 ACCIDENT IN HOME 06/13/2014 BRENDA ADAMS DO Ot E927.0 OVEREXERTION FROM SUDDEN STRENUOUS MOVEM 12/17/2014 F F41.1 Generalized anxiety disorder Miguel, Telisa 01/06/2015 F F43.8 Other reactions to severe stress [place], Telisa 01/14/2015 F F43.8 Other reactions to severe stress Miguel, Telisa 07/12/2015 LEONARD CHIN DO Ot 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 07/12/2015 LEONARD CHIN DO Ot V23.83 SUPRV HIGH-RISK PREG-YOUNG PRIMIGRAVIDA 07/12/2015 RHIANNON POLANCO, GENARO Pulido Ot 649.63 UTERINE SIZE DATE DISCREPANCY, ANTEPARTU 07/12/2015 RHIANNON POLANCO, GENARO Pulido Ot 656.53 POOR GRTH-ANTEPART 07/12/2015 JOSE ALEJANDRO TOWNSEND BOWLING BALL FINISHER Ot 646.83 PREG COMPL NEC-ANTEPART 07/12/2015 JOSE ALEJANDRO TOWNSEND BOWLING BALL FINISHER Ot 789.00 ABDOMINAL PAIN, UNSPECIFIED SITE 07/12/2015 Ot 656.53 POOR GRTH-ANTEPART 07/12/2015 ROSA ESTEVEZ BOWLING BALL FINISHER Ot K58.9 IRRITABLE BOWEL SYNDROME WITHOUT DIARRHE 07/12/2015 ROSA ESTEVEZ BOWLING BALL FINISHER Ot R10.84 GENERALIZED ABDOMINAL PAIN 07/13/2015 ROSA ESTEVEZ BOWLING BALL FINISHER Ot K58.9 IRRITABLE BOWEL SYNDROME WITHOUT DIARRHE 07/13/2015 ROSA ESTEVEZ BOWLING BALL FINISHER Ot R10.84 GENERALIZED ABDOMINAL PAIN 07/14/2015 ROSA ESTEVEZ BOWLING BALL FINISHER Ot K58.9 IRRITABLE BOWEL SYNDROME WITHOUT DIARRHE 07/14/2015 ROSA ESTEVEZ BOWLING BALL FINISHER Ot R10.84 GENERALIZED ABDOMINAL PAIN 07/14/2015 LEONARD CHIN DO Ot 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 07/14/2015 LEONARD CHIN DO Ot V23.83 SUPRV HIGH-RISK PREG-YOUNG PRIMIGRAVIDA 07/14/2015 RHIANNON POLANCO, GENARO Pulido Ot 649.63 UTERINE SIZE DATE DISCREPANCY, ANTEPARTU 07/14/2015 GENARO JURADO MD Ot 656.53 POOR GRTH-ANTEPART 07/14/2015 NICK TOWNSENDIDI A BOWLING BALL FINISHER Ot 646.83 PREG COMPL NEC-ANTEPART 07/14/2015 NICK TOWNSENDIDI A BOWLING BALL FINISHER Ot 789.00 ABDOMINAL PAIN, UNSPECIFIED SITE 07/14/2015 Ot 656.53 POOR GRTH-ANTEPART 08/08/2015 LEONARD CHIN DO Ot 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 08/08/2015 LEONARD CHIN DO Ot V23.83 SUPRV HIGH-RISK PREG-YOUNG PRIMIGRAVIDA 08/08/2015 GENARO JURADO MD Ot 649.63 UTERINE SIZE DATE DISCREPANCY, ANTEPARTU 08/08/2015 GENARO JURADO MD Ot 656.53 POOR GRTH-ANTEPART 08/08/2015 CARYNICKJOSE ALEJANDRO A BOWLING BALL FINISHER Ot 646.83 PREG COMPL NEC-ANTEPART 08/08/2015 NICK TOWNSENDIDI A BOWLING BALL FINISHER Ot 789.00 ABDOMINAL PAIN, UNSPECIFIED SITE 08/08/2015 Ot 656.53 POOR GRTH-ANTEPART 08/08/2015 LEONARD CHIN DO Ot 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 08/08/2015 LEONARD CHIN DO Ot V23.83 SUPRV HIGH-RISK PREG-YOUNG PRIMIGRAVIDA 08/08/2015 GENARO JURADO MD Ot 649.63 UTERINE SIZE DATE DISCREPANCY, ANTEPARTU 08/08/2015 GENARO JURADO MD Ot 656.53 POOR GRTH-ANTEPART 08/08/2015 NICK TOWNSENDIDI A BOWLING BALL FINISHER Ot 646.83 PREG COMPL NEC-ANTEPART 08/08/2015 NICK TOWNSENDIDI A BOWLING BALL FINISHER Ot 789.00 ABDOMINAL PAIN, UNSPECIFIED SITE 08/08/2015 Ot 656.53 POOR GRTH-ANTEPART 08/08/2015 NEVILLE FLOWERS Ot K58.0 IRRITABLE BOWEL SYNDROME WITH DIARRHEA 08/08/2015 NEVILLE FLOWERS Ot R11.2 NAUSEA WITH VOMITING, UNSPECIFIED 08/08/2015 LEONARD CHIN DO Ot 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 08/08/2015 CHIN DO, LEONARD K Ot V23.83 SUPRV HIGH-RISK PREG-YOUNG PRIMIGRAVIDA 08/08/2015 RHIANNON POLANCO, GENARO Pulido Ot 649.63 UTERINE SIZE DATE DISCREPANCY, ANTEPARTU 08/08/2015 GENARO JURADO MD Ot 656.53 POOR GRTH-ANTEPART 08/08/2015 CARYNICK VIERAIDI A BOWLING BALL FINISHER Ot 646.83 PREG COMPL NEC-ANTEPART 08/08/2015 CARY, JOSE ALEJANDRO A BOWLING BALL FINISHER Ot 789.00 ABDOMINAL PAIN, UNSPECIFIED SITE 08/08/2015 Ot 656.53 POOR GRTH-ANTEPART 08/08/2015 CHIN LORAINE PICHARDOA K Ot 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 08/08/2015 CHIN LEONARD PICHARDO Ot V23.83 SUPRV HIGH-RISK PREG-YOUNG PRIMIGRAVIDA 08/08/2015 GENARO JURADO MD N Ot 649.63 UTERINE SIZE DATE DISCREPANCY, ANTEPARTU 08/08/2015 GENARO JURADO MD Ot 656.53 POOR GRTH-ANTEPART 08/08/2015 CARY, JOSE ALEJANDRO A BOWLING BALL FINISHER Ot 646.83 PREG COMPL NEC-ANTEPART 08/08/2015 CARY, JOSE ALEJANDRO A BOWLING BALL FINISHER Ot 789.00 ABDOMINAL PAIN, UNSPECIFIED SITE 08/08/2015 Ot 656.53 POOR GRTH-ANTEPART 08/10/2015 NEVILLE FLOWERS Ot K58.0 IRRITABLE BOWEL SYNDROME WITH DIARRHEA 08/10/2015 NEVILLE FLOWERS Ot R11.2 NAUSEA WITH VOMITING, UNSPECIFIED 08/10/2015 NEVILLE FLOWERS Ot K58.0 IRRITABLE BOWEL SYNDROME WITH DIARRHEA 08/10/2015 NEVILLE FLOWERS Ot R11.2 NAUSEA WITH VOMITING, UNSPECIFIED 09/23/2015 ROSA ESTEVEZ APRN Ot S60.222A CONTUSION OF LEFT HAND, INITIAL ENCOUNTE 09/23/2015 ROSA ESTEVEZ APRN Ot S69.92XA UNSP INJURY OF LEFT WRIST, HAND AND FING 09/23/2015 ROSA ESTEVEZ APRN Ot W22.09XA STRIKING AGAINST OTHER STATIONARY OBJECT 09/23/2015 ROSA ESTEVEZ APRN Ot Y99.8 OTHER EXTERNAL CAUSE STATUS 09/24/2015 ROSA ESTEVEZ BOWLING BALL FINISHER Ot S60.222A CONTUSION OF LEFT HAND, INITIAL ENCOUNTE 09/24/2015 ROSA ESTEVEZ BOWLING BALL FINISHER Ot S69.92XA UNSP INJURY OF LEFT WRIST, HAND AND FING 09/24/2015 ROSA ESTEVEZ BOWLING BALL FINISHER Ot W22.09XA STRIKING AGAINST OTHER STATIONARY OBJECT 09/24/2015 ROSA ESTEVEZ BOWLING BALL FINISHER Ot Y99.8 OTHER EXTERNAL CAUSE STATUS 10/08/2015 JOE POLANCO, GEORGINA T Ot 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 10/08/2015 GEORGINA DIAZ MD Ot F41.9 ANXIETY DISORDER, UNSPECIFIED 10/08/2015 GEORGINA DIAZ MD Ot J30.9 ALLERGIC RHINITIS, UNSPECIFIED 10/09/2015 GEORGINA DIAZ MD T Ot 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 10/09/2015 GEORGINA DIAZ MD Ot F41.9 ANXIETY DISORDER, UNSPECIFIED 10/09/2015 GEORGINA DIAZ MD T Ot J30.9 ALLERGIC RHINITIS, UNSPECIFIED 10/15/2015 CURTIS GOMEZ MD Ot F32.9 MAJOR DEPRESSIVE DISORDER, SINGLE EPISOD 10/15/2015 CURTIS GOMEZ MD Ot F41.9 ANXIETY DISORDER, UNSPECIFIED 10/16/2015 CURTIS GOMEZ MD Ot F32.9 MAJOR DEPRESSIVE DISORDER, SINGLE EPISOD 10/16/2015 CURTIS GOMEZ MD Ot F41.9 ANXIETY DISORDER, UNSPECIFIED 10/21/2015 CURTIS GOMEZ MD Ot F32.9 MAJOR DEPRESSIVE DISORDER, SINGLE EPISOD 10/21/2015 CURTIS GOMEZ MD Ot F41.9 ANXIETY DISORDER, UNSPECIFIED 01/19/2016 BRENDA ADAMS DO Ot N64.3 GALACTORRHEA NOT ASSOCIATED WITH CHILDBI 01/19/2016 BRENDA ADAMS DO Ot N64.4 MASTODYNIA 01/19/2016 BRENDA ADAMS DO Ot N93.8 OTHER SPECIFIED ABNORMAL UTERINE AND VAG 02/23/2016 CURTIS GOMEZ MD Ot L23.5 ALLERGIC CONTACT DERMATITIS DUE TO OTHER 02/23/2016 CURTIS GOMEZ MD Ot L23.9 ALLERGIC CONTACT DERMATITIS, UNSPECIFIED 02/23/2016 CURTIS GOMEZ MD Ot R11.2 NAUSEA WITH VOMITING, UNSPECIFIED 02/23/2016 CURTIS GOMEZ MD Ot R19.7 DIARRHEA, UNSPECIFIED 02/25/2016 CURTIS GOMEZ MD Ot L23.5 ALLERGIC CONTACT DERMATITIS DUE TO OTHER 02/25/2016 CURTIS GOMEZ MD Ot L23.9 ALLERGIC CONTACT DERMATITIS, UNSPECIFIED 02/25/2016 CURTIS GOMEZ MD Ot R11.2 NAUSEA WITH VOMITING, UNSPECIFIED 02/25/2016 CURTIS GOMEZ MD Ot R19.7 DIARRHEA, UNSPECIFIED 03/24/2016 ROSA ESTEVEZ APRN Ot S00.86XA INSECT BITE (NONVENOMOUS) OF OTHER PART 03/24/2016 ROSA ESTEVEZ APRN Ot S10.96XA INSECT BITE OF UNSPECIFIED PART OF NECK, 03/24/2016 ROSA ESTEVEZ APRN Ot S80.861A INSECT BITE (NONVENOMOUS), RIGHT LOWER L 03/24/2016 ROSA ESTEVEZ APRN Ot S80.862A INSECT BITE (NONVENOMOUS), LEFT LOWER LE 03/24/2016 ROSA ESTEVEZ APRN Ot W57.XXXA BIT/STUNG BY NONVENOM INSECT OTH NONVE 03/24/2016 ROSA ESTEVEZ APRN Ot Y92.013 BEDROOM OF SINGLE-FAMILY (PRIVATE) HOUSE 03/24/2016 ROSA ESTEVEZ APRN Ot Y93.84 ACTIVITY, SLEEPING 03/24/2016 ROSA ESTEVEZ APRN Ot Y99.8 OTHER EXTERNAL CAUSE STATUS 03/26/2016 ROSA ESTEVEZ APRN Ot S00.86XA INSECT BITE (NONVENOMOUS) OF OTHER PART 03/26/2016 ROSA ESTEVEZ APRN Ot S10.96XA INSECT BITE OF UNSPECIFIED PART OF NECK, 03/26/2016 ROSA ESTEVEZ APRN Ot S80.861A INSECT BITE (NONVENOMOUS), RIGHT LOWER L 03/26/2016 ROSA ESTEVEZ APRN Ot S80.862A INSECT BITE (NONVENOMOUS), LEFT LOWER LE 03/26/2016 ROSA ESTEVEZ APRN Ot W57.XXXA BIT/STUNG BY NONVENOM INSECT OTH NONVE 03/26/2016 ROSA ESTEVEZ APRN Ot Y92.013 BEDROOM OF SINGLE-FAMILY (PRIVATE) HOUSE 03/26/2016 ROSA ESTEVEZ APRN Ot Y93.84 ACTIVITY, SLEEPING 03/26/2016 ROSA ESTEVEZ APRN Ot Y99.8 OTHER EXTERNAL CAUSE STATUS 03/30/2016 ROSA ESTEVEZ APRN Ot S00.86XA INSECT BITE (NONVENOMOUS) OF OTHER PART 03/30/2016 ROSA ESTEVEZ APRN Ot S10.96XA INSECT BITE OF UNSPECIFIED PART OF NECK, 03/30/2016 ROSA ESTEVEZ APRN Ot S80.861A INSECT BITE (NONVENOMOUS), RIGHT LOWER L 03/30/2016 ROSA ESTEVEZ APRN Ot S80.862A INSECT BITE (NONVENOMOUS), LEFT LOWER LE 03/30/2016 ROSA ESTEVEZ APRN Ot W57.XXXA BIT/STUNG BY NONVENOM INSECT OTH NONVE 03/30/2016 ROSA ESTEVEZ APRN Ot Y92.013 BEDROOM OF SINGLE-FAMILY (PRIVATE) HOUSE 03/30/2016 ROSA ESTEVEZ APRN Ot Y93.84 ACTIVITY, SLEEPING 03/30/2016 ROSA ESTEVEZ APRN Ot Y99.8 OTHER EXTERNAL CAUSE STATUS 06/14/2016 LEONARD CHIN DO Ot 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 06/14/2016 LEONARD CHIN DO Ot V23.83 SUPRV HIGH-RISK PREG-YOUNG PRIMIGRAVIDA 06/14/2016 GENARO JURADO MD Ot 649.63 UTERINE SIZE DATE DISCREPANCY, ANTEPARTU 06/14/2016 GENARO JURADO MD Ot 656.53 POOR GRTH-ANTEPART 06/14/2016 JOSE ALEJANDRO TOWNSEND BOWLING BALL FINISHER Ot 646.83 PREG COMPL NEC-ANTEPART 06/14/2016 JOSE ALEJANDRO TOWNSEND BOWLING BALL FINISHER Ot 789.00 ABDOMINAL PAIN, UNSPECIFIED SITE 06/14/2016 Ot 656.53 POOR GRTH-ANTEPART 06/15/2016 JOE POLANCO, GEORGINA Sierra Ot I88.0 NONSPECIFIC MESENTERIC LYMPHADENITIS 06/15/2016 BRUEGGEMANN MD, GEORGINA T Ot R10.31 RIGHT LOWER QUADRANT PAIN 06/15/2016 JOE POLANCO, GEORGINA Sierra Ot R11.2 NAUSEA WITH VOMITING, UNSPECIFIED 06/15/2016 JOE POLANCO, GEORGINA Sierra Ot I88.0 NONSPECIFIC MESENTERIC LYMPHADENITIS 06/15/2016 JOE POLANCO, GEORGINA T Ot R10.31 RIGHT LOWER QUADRANT PAIN 06/15/2016 JOE POLANCO, GEORGINA Sierra Ot R11.2 NAUSEA WITH VOMITING, UNSPECIFIED 07/15/2016 Ot 656.53 POOR GRTH-ANTEPART 07/15/2016 ANGIE DO, BRENDA K Ot R10.31 RIGHT LOWER QUADRANT PAIN 07/15/2016 ANGIE DO, BRENDA K Ot R10.84 GENERALIZED ABDOMINAL PAIN 07/15/2016 ANGIE DO, BRENDA K Ot R11.2 NAUSEA WITH VOMITING, UNSPECIFIED 07/19/2016 ANGIE DO, BRENDA K Ot R10.31 RIGHT LOWER QUADRANT PAIN 07/19/2016 ANGIE DO, BRENDA K Ot R10.84 GENERALIZED ABDOMINAL PAIN 07/19/2016 ANGIE DO, BRENDA K Ot R11.2 NAUSEA WITH VOMITING, UNSPECIFIED 08/01/2016 ROSA ESTEVEZ BOWLING BALL FINISHER Ot J45.909 UNSPECIFIED ASTHMA, UNCOMPLICATED 08/01/2016 ROSA ESTEVEZ BOWLING BALL FINISHER Ot N83.201 UNSPECIFIED OVARIAN CYST, RIGHT SIDE 08/01/2016 ROSA ESTEVEZ BOWLING BALL FINISHER Ot R10.31 RIGHT LOWER QUADRANT PAIN 08/01/2016 ROSA ESTEVEZ BOWLING BALL FINISHER Ot Z87.19 PERSONAL HISTORY OF OTHER DISEASES OF 08/03/2016 ROSA ESTEVEZ BOWLING BALL FINISHER Ot J45.909 UNSPECIFIED ASTHMA, UNCOMPLICATED 08/03/2016 ROSA ESTEVEZ BOWLING BALL FINISHER Ot N83.201 UNSPECIFIED OVARIAN CYST, RIGHT SIDE 08/03/2016 ROSA ESTEVEZ BOWLING BALL FINISHER Ot R10.31 RIGHT LOWER QUADRANT PAIN 08/03/2016 ROSA ESTEVEZ BOWLING BALL FINISHER Ot Z87.19 PERSONAL HISTORY OF OTHER DISEASES OF 08/06/2016 Ot 656.53 POOR GRTH-ANTEPART 08/07/2016 ANGIE DO, BRENDA K Ot I88.0 NONSPECIFIC MESENTERIC LYMPHADENITIS 08/07/2016 ANGIE DO, BRENDA K Ot N39.0 URINARY TRACT INFECTION, SITE NOT SPECIF 08/07/2016 ANGIE DO, BRENDA K Ot R10.30 LOWER ABDOMINAL PAIN, UNSPECIFIED 08/07/2016 ROSA ESTEVEZ BOWLING BALL FINISHER Ot J45.909 UNSPECIFIED ASTHMA, UNCOMPLICATED 08/07/2016 ROSA ESTEVEZ BOWLING BALL FINISHER Ot N83.201 UNSPECIFIED OVARIAN CYST, RIGHT SIDE 08/07/2016 ROSA ESTEVEZ BOWLING BALL FINISHER Ot R10.31 RIGHT LOWER QUADRANT PAIN 08/07/2016 ROSA ESTEVEZ BOWLING BALL FINISHER Ot Z87.19 PERSONAL HISTORY OF OTHER DISEASES OF TH 08/09/2016 ANGIE DO BRENDA K Ot I88.0 NONSPECIFIC MESENTERIC LYMPHADENITIS 08/09/2016 ANGIE DO, BRENDA K Ot N39.0 URINARY TRACT INFECTION, SITE NOT SPECIF 08/09/2016 ANGIE DO, BRENDA K Ot R10.30 LOWER ABDOMINAL PAIN, UNSPECIFIED 08/22/2016 ANGIE DO BRENDA K Ot F31.9 BIPOLAR DISORDER, UNSPECIFIED 08/22/2016 ANGIE DO BRENDA K Ot F90.9 ATTENTION-DEFICIT HYPERACTIVITY DISORDER 08/22/2016 ANGIE DO BRENDA K Ot J45.909 UNSPECIFIED ASTHMA, UNCOMPLICATED 08/22/2016 ANGIE DO BRENDA K Ot N39.0 URINARY TRACT INFECTION, SITE NOT SPECIF 08/22/2016 ANGIE DO BRENDA K Ot R50.9 FEVER, UNSPECIFIED 08/22/2016 ANGIE DO BRENDA K Ot Z91.14 PATIENT'S OTHER NONCOMPLIANCE WITH MEDIC 08/22/2016 ANGIE DO BRENDA K Ot Z91.5 PERSONAL HISTORY OF SELF-HARM 08/22/2016 ANGIE DO BRENDA K Ot Z98.890 OTHER SPECIFIED POSTPROCEDURAL STATES 09/25/2016 ANASTACIA LAMP Ot F31.9 BIPOLAR DISORDER, UNSPECIFIED 09/25/2016 GENARO, ANASTACIA MILLROOM SUPERVISOR Ot F41.9 ANXIETY DISORDER, UNSPECIFIED 09/25/2016 ANASTACIA LAM MILLROOM SUPERVISOR Ot F90.9 ATTENTION-DEFICIT HYPERACTIVITY DISORDER 09/25/2016 ANASTACIA LAMP Ot J45.909 UNSPECIFIED ASTHMA, UNCOMPLICATED 09/25/2016 ANASTACIA LAM MILLROOM SUPERVISOR Ot L02.411 CUTANEOUS ABSCESS OF RIGHT AXILLA 09/25/2016 ANASTACIA LAMP Ot Z77.22 CNTCT W AND EXPSR TO ENVIRON TOBACCO SMO 09/25/2016 ANASTACIA LAM RUTH Ot Z87.2 PERSONAL HISTORY OF DISEASES OF THE SKIN 09/25/2016 ANASTACIA LAM RUTH Ot Z91.5 PERSONAL HISTORY OF SELF-HARM 09/25/2016 ANASTACIA LAMP Ot Z98.890 OTHER SPECIFIED POSTPROCEDURAL STATES 11/29/2016 LEONARD CHIN DO Ot 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 11/29/2016 CHIN DO LEONARD Najera Ot V23.83 SUPRV HIGH-RISK PREG-YOUNG PRIMIGRAVIDA 11/29/2016 GENARO JURADO MD Ot 649.63 UTERINE SIZE DATE DISCREPANCY, ANTEPARTU 11/29/2016 GENARO JURADO MD Ot 656.53 POOR GRTH-ANTEPART 11/29/2016 JOSE ALEJANDRO TOWNSEND BOWLING BALL FINISHER Ot 646.83 PREG COMPL NEC-ANTEPART 11/29/2016 JOSE ALEJANDRO TOWNSEND BOWLING BALL FINISHER Ot 789.00 ABDOMINAL PAIN, UNSPECIFIED SITE 11/29/2016 Ot 656.53 POOR GRTH-ANTEPART 11/29/2016 ROSA ESTEVEZ BOWLING BALL FINISHER Ot F31.9 BIPOLAR DISORDER, UNSPECIFIED 11/29/2016 ROSA ESTEVEZ BOWLING BALL FINISHER Ot F41.9 ANXIETY DISORDER, UNSPECIFIED 11/29/2016 ROSA ESTEVEZ BOWLING BALL FINISHER Ot F90.9 ATTENTION-DEFICIT HYPERACTIVITY DISORDER 11/29/2016 ROSA ESTEVEZ BOWLING BALL FINISHER Ot K58.9 IRRITABLE BOWEL SYNDROME WITHOUT DIARRHE 11/29/2016 ROSA ESTEVEZ BOWLING BALL FINISHER Ot R11.2 NAUSEA WITH VOMITING, UNSPECIFIED 11/29/2016 ROSA ESTEVEZ BOWLING BALL FINISHER Ot Z91.5 PERSONAL HISTORY OF SELF-HARM 12/11/2016 CURTIS GOMEZ MD Ot F31.9 BIPOLAR DISORDER, UNSPECIFIED 12/11/2016 CURTIS GOMEZ MD Ot F41.9 ANXIETY DISORDER, UNSPECIFIED 12/11/2016 CURTIS GOMEZ MD Ot F90.9 ATTENTION-DEFICIT HYPERACTIVITY DISORDER 12/11/2016 CURTIS GOMEZ MD Ot J45.909 UNSPECIFIED ASTHMA, UNCOMPLICATED 12/11/2016 CURTIS GOMEZ MD Ot R10.31 RIGHT LOWER QUADRANT PAIN 12/11/2016 CURTIS GOMZE MD Ot R10.32 LEFT LOWER QUADRANT PAIN 12/11/2016 CURTIS GOMEZ MD Ot Z71.9 COUNSELING, UNSPECIFIED 12/11/2016 CURTIS GOMEZ MD Ot Z77.22 CNTCT W AND EXPSR TO ENVIRON TOBACCO SMO 12/11/2016 CURTIS GOMEZ MD Ot Z91.5 PERSONAL HISTORY OF SELF-HARM 12/13/2016 CURTIS GOMEZ MD Ot F31.9 BIPOLAR DISORDER, UNSPECIFIED 12/13/2016 CURTIS GOMEZ MD Ot F41.9 ANXIETY DISORDER, UNSPECIFIED 12/13/2016 CURTIS GOMEZ MD Ot F90.9 ATTENTION-DEFICIT HYPERACTIVITY DISORDER 12/13/2016 CURTIS GOMEZ MD Ot J45.909 UNSPECIFIED ASTHMA, UNCOMPLICATED 12/13/2016 CURTIS GOMEZ MD Ot R10.31 RIGHT LOWER QUADRANT PAIN 12/13/2016 CURTIS GOMEZ MD Ot R10.32 LEFT LOWER QUADRANT PAIN 12/13/2016 CURTIS GOMEZ MD Ot Z71.9 COUNSELING, UNSPECIFIED 12/13/2016 CURTIS GOMEZ MD Ot Z77.22 CNTCT W AND EXPSR TO ENVIRON TOBACCO SMO 12/13/2016 CURTIS GOMEZ MD Ot Z91.5 PERSONAL HISTORY OF SELF-HARM 12/27/2016 ANASTACIA LAM MILLROOM SUPERVISOR Ot F12.90 CANNABIS USE, UNSPECIFIED, UNCOMPLICATED 12/27/2016 GENARO ANASTACIA MILLROOM SUPERVISOR Ot F31.9 BIPOLAR DISORDER, UNSPECIFIED 12/27/2016 GENAROANASTACIA Ruffin MILLROOM SUPERVISOR Ot F41.9 ANXIETY DISORDER, UNSPECIFIED 12/27/2016 GENARO, ANASTACIA MILLROOM SUPERVISOR Ot F90.9 ATTENTION-DEFICIT HYPERACTIVITY DISORDER 12/27/2016 GENARO ANASTACIA MILLROOM SUPERVISOR Ot H66.91 OTITIS MEDIA, UNSPECIFIED, RIGHT EAR 12/27/2016 GENARO ANASTACIA MILLROOM SUPERVISOR Ot H92.01 OTALGIA, RIGHT EAR 12/27/2016 GENARO ANASTACIA MILLROOM SUPERVISOR Ot J02.9 ACUTE PHARYNGITIS, UNSPECIFIED 12/27/2016 GENARO ANASTACIA MILLROOM SUPERVISOR Ot J45.909 UNSPECIFIED ASTHMA, UNCOMPLICATED 12/27/2016 GENARO ANASTACIA MILLROOM SUPERVISOR Ot K58.9 IRRITABLE BOWEL SYNDROME WITHOUT DIARRHE 12/27/2016 GENARO, ANASTACIA MILLROOM SUPERVISOR Ot Z77.22 CNTCT W AND EXPSR TO ENVIRON TOBACCO SMO 12/27/2016 GENARO, ANASTACIA MILLROOM SUPERVISOR Ot Z91.5 PERSONAL HISTORY OF SELF-HARM 12/29/2016 GENARO, ANASTACIA MILLROOM SUPERVISOR Ot F12.90 CANNABIS USE, UNSPECIFIED, UNCOMPLICATED 12/29/2016 GENARO, ANASTACIA MILLROOM SUPERVISOR Ot F31.9 BIPOLAR DISORDER, UNSPECIFIED 12/29/2016 GENARO, ANASTACIA MILLROOM SUPERVISOR Ot F41.9 ANXIETY DISORDER, UNSPECIFIED 12/29/2016 GENARO, ANASTACIA MILLROOM SUPERVISOR Ot F90.9 ATTENTION-DEFICIT HYPERACTIVITY DISORDER 12/29/2016 GENARO, ANASTACIA MILLROOM SUPERVISOR Ot H66.91 OTITIS MEDIA, UNSPECIFIED, RIGHT EAR 12/29/2016 GENARO, ANASTACIA MILLROOM SUPERVISOR Ot H92.01 OTALGIA, RIGHT EAR 12/29/2016 GENARO, ANASTACIA MILLROOM SUPERVISOR Ot J02.9 ACUTE PHARYNGITIS, UNSPECIFIED 12/29/2016 GENARO, ANASTACIA MILLROOM SUPERVISOR Ot J45.909 UNSPECIFIED ASTHMA, UNCOMPLICATED 12/29/2016 GENARO, ANASTACIA MILLROOM SUPERVISOR Ot K58.9 IRRITABLE BOWEL SYNDROME WITHOUT DIARRHE 12/29/2016 GENARO, ANASTACIA MILLROOM SUPERVISOR Ot Z77.22 CNTCT W AND EXPSR TO ENVIRON TOBACCO SMO 12/29/2016 GENARO, ANASTACIA MILLROOM SUPERVISOR Ot Z91.5 PERSONAL HISTORY OF SELF-HARM 01/15/2017 ANGIE DO, BRENDA K Ot F12.10 CANNABIS ABUSE, UNCOMPLICATED 01/15/2017 ANGIE DO, BRENDA K Ot F31.9 BIPOLAR DISORDER, UNSPECIFIED 01/15/2017 ANGIE DO, BRENDA K Ot F41.9 ANXIETY DISORDER, UNSPECIFIED 01/15/2017 ANGIE DO, BRENDA K Ot F90.9 ATTENTION-DEFICIT HYPERACTIVITY DISORDER 01/15/2017 ANGIE DO, BRENDA K Ot G89.29 OTHER CHRONIC PAIN 01/15/2017 ANGIE DO, BRENDA K Ot J45.909 UNSPECIFIED ASTHMA, UNCOMPLICATED 01/15/2017 ANGIE DO, BRENDA K Ot R10.84 GENERALIZED ABDOMINAL PAIN 01/15/2017 ANGIE DO, BRENAD K Ot R11.2 NAUSEA WITH VOMITING, UNSPECIFIED 01/15/2017 ANGIE DO, BRENDA K Ot Z77.22 CNTCT W AND EXPSR TO ENVIRON TOBACCO SMO 01/15/2017 ANGIE DO, BRENDA K Ot Z87.19 PERSONAL HISTORY OF OTHER DISEASES OF TH 01/15/2017 BRENDA ADAMS DO Ot Z87.448 PERSONAL HISTORY OF OTHER DISEASES OF UR 01/15/2017 BRENDA ADAMS DO Ot Z91.5 PERSONAL HISTORY OF SELF-HARM 01/20/2017 BRENDA ADAMS DO Ot F12.10 CANNABIS ABUSE, UNCOMPLICATED 01/20/2017 BRENDA ADAMS DO Ot F31.9 BIPOLAR DISORDER, UNSPECIFIED 01/20/2017 BRENDA ADAMS DO Ot F41.9 ANXIETY DISORDER, UNSPECIFIED 01/20/2017 BRENDA ADAMS DO Ot F90.9 ATTENTION-DEFICIT HYPERACTIVITY DISORDER 01/20/2017 BRENDA ADAMS DO Ot G89.29 OTHER CHRONIC PAIN 01/20/2017 BRENDA ADAMS DO Ot J45.909 UNSPECIFIED ASTHMA, UNCOMPLICATED 01/20/2017 BRENDA ADAMS DO Ot R10.84 GENERALIZED ABDOMINAL PAIN 01/20/2017 BRENDA ADAMS DO Ot R11.2 NAUSEA WITH VOMITING, UNSPECIFIED 01/20/2017 BRENDA ADAMS DO Ot Z77.22 CNTCT W AND EXPSR TO ENVIRON TOBACCO SMO 01/20/2017 BRENDA ADAMS DO Ot Z87.19 PERSONAL HISTORY OF OTHER DISEASES OF TH 01/20/2017 BRENDA ADAMS DO Ot Z87.448 PERSONAL HISTORY OF OTHER DISEASES OF UR 01/20/2017 BRENDA ADAMS DO Ot Z91.5 PERSONAL HISTORY OF SELF-HARM 03/09/2017 KENNY DURAN DO Ot R10.9 UNSPECIFIED ABDOMINAL PAIN 03/09/2017 KENNY DURAN DO Ot R11.2 NAUSEA WITH VOMITING, UNSPECIFIED 07/27/2017 ROSA ESTEVEZ APRN Ot R11.2 NAUSEA WITH VOMITING, UNSPECIFIED Procedures Code Description [place] [address] URINE TEST (IN- HOUSE) 11/02/2012 21876 UA LONG DIP 11/02/2012 79130 ROUTINE VENIPUNCTURE 11/14/2012 16102 UA OB DIP 11/14/2012 79829 TSH 11/14/2012 23869 CBC 11/14/2012 90823 SYPHILLIS-STATE LAB 11/14/2012 44414 HIV ANTIBODIES (RML) 11/14/2012 58165 RUBELLA ANTIBODY, IGG 11/14/2012 08856 ANTIBODY SCREEN (order) 11/14/2012 88660 BLOOD TYPE/Rh FACTOR 11/14/2012 17366 CULTURE UROGENITAL 11/14/2012 79910 CULTURE URINE 11/14/2012 29376 HEP B SURFACE ANTIGEN (STATE ) 11/14/2012 09076 GC/CHLAM PROBE (STATE) 11/14/2012 89388 TRICHOMONAS (IN-HOUSE) 11/14/2012 TETRA TETRA SCREEN 11/14/2012 55859 UA OB DIP 11/22/2012 13403 US OB - COMPLETE >14 WEEKS 11/26/2012 71829 UA OB DIP 12/12/2012 80954 UA OB DIP 2013 14511 GLUCOSE PINO 3 HOUR 01/19/2013 19660 PSYCH DIAGNOSTIC EVALUATION 01/19/2013 06357 ROUTINE VENIPUNCTURE 02/06/2013 82593 UA OB DIP 02/06/2013 96784 US OB - FOLLOW UP 02/06/2013 43929 GLUCOSE PINO 1 HOUR 02/06/2013 05855 GC/CHLAM URINE (STATE) 02/06/2013 10924 CBC 02/07/2013 44965 UA OB DIP 03/06/2013 41787 US OB - FOLLOW UP 03/07/2013 08573 PSYTX PT&/FAMILY 45 MINUTES 03/08/2013 14754 UA OB DIP 03/20/2013 75478 UA OB DIP 03/26/2013 33658 BIOPHYSICAL PROFILE () W/O NST 03/26/2013 06183 UA OB DIP 04/02/2013 90670 CULTURE GROUP B STREP VAG 04/02/2013 27330 PSYTX PT&/FAMILY 30 MINUTES 04/04/2013 44019 UA OB DIP 04/10/2013 70957 GLUCOSE FINGER STICK 04/10/2013 11323 UA OB DIP 04/18/2013 32340 PSYTX PT&/FAMILY 45 MINUTES 04/19/2013 73.4 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 04/23/2013 75.69 REPAIR OB LACERATION NEC 04/23/2013 71217 TEST, URINE (IN- HOUSE) 06/12/2013 06263 THERAPUTIC INJ SQ/IM 07/25/2013 [id number] DEPO PROVERA 07/25/2013 61976 TEST, URINE (IN- HOUSE) 07/25/2013 29718 URINALYSIS, AUTO W/SCOPE 11/29/2013 17477 URINE CULTURE/COLONY COUNT 11/29/2013 13010 X-RAY EXAM OF ABDOMEN 12/03/2013 Results Test Result Range UA - 11/29/13 00:00 PH 6.0 4.5-8.0 SG 1.025 1.003-1.035 UABILI NEGATIVE UABLD NEGATIVE UACOLOR YEL UAGLU NEGATIVE UAKET NEGATIVE UALEUK NEGATIVE UANIT NEGATIVE UAURO 0.2 0-0.2 CLARITY CL PROTEIN NEGATIVE UA WBC R05 UA RBC R05 SQUAMOUS EPITHELIAL CELLS FEW BACTERIA RARE GUME - 06/04/14 00:00 GUME NOYEA Complete blood count (CBC) with automated white blood cell (WBC) differential - 10/15/15 20:40 Blood leukocytes automated count (number/volume) 7.8 10*3/uL 4.3-11.0 Blood erythrocytes automated count (number/volume) 4.93 10*6/uL 4.35-5.85 Venous blood hemoglobin measurement (mass/volume) 14.5 g/dL 11.5-16.0 Blood hematocrit (volume fraction) 43 % 35-52 Automated erythrocyte mean corpuscular volume 86 [foz_us] 80-99 Automated erythrocyte mean corpuscular hemoglobin (mass per erythrocyte) 29 pg 25-34 Automated erythrocyte mean corpuscular hemoglobin concentration measurement ( mass/volume) 34 g/dL 32-36 Automated erythrocyte distribution width ratio 13.0 % 10.0-14.5 Automated blood platelet count (count/volume) 276 10*3/uL 130-400 Automated blood platelet mean volume measurement 11.0 [foz_us] 7.4-10.4 Automated blood neutrophils/100 leukocytes 65 % 42-75 Automated blood lymphocytes/100 leukocytes 26 % 12-44 Blood monocytes/100 leukocytes 5 % 0-12 Automated blood eosinophils/100 leukocytes 2 % 0-10 Automated blood basophils/100 leukocytes 1 % 0-10 Blood neutrophils automated count (number/volume) 5.1 10*3 1.8-7.8 Blood lymphocytes automated count (number/volume) 2.1 10*3 1.0-4.0 Blood monocytes automated count (number/volume) 0.4 10*3 0.0-1.0 Automated eosinophil count 0.2 10*3/uL 0.0-0.3 Automated blood basophil count (count/volume) 0.1 10*3/uL 0.0-0.1 Comprehensive metabolic panel - 10/15/15 20:40 Serum or plasma sodium measurement (moles/volume) 140 mmol/L 135-145 Serum or plasma potassium measurement (moles/volume) 4.0 mmol/L 3.6-5.0 Serum or plasma chloride measurement (moles/volume) 108 mmol/L 98-107 Carbon dioxide 20 mmol/L 21-32 Serum or plasma anion gap determination (moles/volume) 12 mmol/L 5-14 Serum or plasma urea nitrogen measurement (mass/volume) 12 mg/dL 7-18 Serum or plasma creatinine measurement (mass/volume) 0.64 mg/dL 0.60-1.30 Serum or plasma urea nitrogen/creatinine mass ratio 19 NRG Serum or plasma creatinine measurement with calculation of estimated glomerular filtration rate > NRG Serum or plasma glucose measurement (mass/volume) 91 mg/dL 70-105 Serum or plasma calcium measurement (mass/volume) 9.1 mg/dL 8.5-10.1 Serum or plasma total bilirubin measurement (mass/volume) 0.2 mg/dL 0.1-1.0 Serum or plasma alkaline phosphatase measurement (enzymatic activity/volume) 90 U/L 60-350 Serum or plasma aspartate aminotransferase measurement (enzymatic activity/ volume) 15 U/L 5-34 Serum or plasma alanine aminotransferase measurement (enzymatic activity/volume ) 14 U/L 0-55 Serum or plasma protein measurement (mass/volume) 7.4 g/dL 6.4-8.2 Serum or plasma albumin measurement (mass/volume) 4.3 g/dL 3.2-4.5 Serum or plasma acetaminophen measurement (mass/volume) - 10/15/15 20:40 Serum or plasma acetaminophen measurement (mass/volume) < ug/mL 10-30 Serum or plasma ethanol measurement (mass/volume) - 10/15/15 20:40 Serum or plasma ethanol measurement (mass/volume) < mg/dL <10 Urine beta human chorionic gonadotropin (hCG) measurement - 10/15/15 20:42 Urine beta human chorionic gonadotropin (hCG) measurement NEGATIVE NEGATIVE Urine drug screening test - 10/15/15 20:42 Urine acetaminophen detection by screening method NEGATIVE NEGATIVE Urine phencyclidine detection by screening method NEGATIVE NEGATIVE Urine benzodiazepines detection by screening method NEGATIVE NEGATIVE Urine cocaine detection NEGATIVE NEGATIVE Urine amphetamines detection by screening method NEGATIVE NEGATIVE Urine methamphetamine detection by screening method NEGATIVE NEGATIVE Urine cannabinoids detection by screening method NEGATIVE NEGATIVE Urine opiates detection by screening method NEGATIVE NEGATIVE Urine barbiturates detection NEGATIVE NEGATIVE Screening urine tricyclic antidepressants detection NEGATIVE NEGATIVE Urine methadone detection by screening method NEGATIVE NEGATIVE Complete urinalysis with reflex to culture - 10/15/15 20:42 Urine color determination YELLOW NRG Urine clarity determination CLEAR NRG Urine pH measurement by test strip 5 5-9 Specific gravity of urine by test strip 1.025 1.016- 1.022 Urine protein assay by test strip, semi-quantitative NEGATIVE NEGATIVE Urine glucose detection by automated test strip NEGATIVE NEGATIVE Erythrocytes detection in urine sediment by light microscopy 2+ NEGATIVE Urine ketones detection by automated test strip NEGATIVE NEGATIVE Urine nitrite detection by test strip NEGATIVE NEGATIVE Urine total bilirubin detection by test strip NEGATIVE NEGATIVE Urine urobilinogen measurement by automated test strip (mass/volume) 1 mg/dL NORMAL Urine leukocyte esterase detection by dipstick NEGATIVE NEGATIVE Automated urine sediment erythrocyte count by microscopy (number/high power field) [HPF] NRG Automated urine sediment leukocyte count by microscopy (number/high power field ) RARE NRG Bacteria detection in urine sediment by light microscopy FEW NRG Squamous epithelial cells detection in urine sediment by light microscopy 5-10 NRG Crystals detection in urine sediment by light microscopy NONE NRG Casts detection in urine sediment by light microscopy NONE NRG Mucus detection in urine sediment by light microscopy MODERATE NRG Complete urinalysis with reflex to culture NO NRG Genital Culture, Routine - 10/30/15 13:19 Genital Culture, Routine Note Complete blood count (CBC) with automated white blood cell (WBC) differential - 01/19/16 20:38 Blood leukocytes automated count (number/volume) 9.5 10*3/uL 4.3-11.0 Blood erythrocytes automated count (number/volume) 4.81 10*6/uL 4.35-5.85 Venous blood hemoglobin measurement (mass/volume) 13.8 g/dL 11.5-16.0 Blood hematocrit (volume fraction) 42 % 35-52 Automated erythrocyte mean corpuscular volume 87 [foz_us] 80-99 Automated erythrocyte mean corpuscular hemoglobin (mass per erythrocyte) 29 pg 25-34 Automated erythrocyte mean corpuscular hemoglobin concentration measurement ( mass/volume) 33 g/dL 32-36 Automated erythrocyte distribution width ratio 13.2 % 10.0-14.5 Automated blood platelet count (count/volume) 252 10*3/uL 130-400 Automated blood platelet mean volume measurement 11.1 [foz_us] 7.4-10.4 Automated blood neutrophils/100 leukocytes 68 % 42-75 Automated blood lymphocytes/100 leukocytes 23 % 12-44 Blood monocytes/100 leukocytes 6 % 0-12 Automated blood eosinophils/100 leukocytes 3 % 0-10 Automated blood basophils/100 leukocytes 1 % 0-10 Blood neutrophils automated count (number/volume) 6.5 10*3 1.8-7.8 Blood lymphocytes automated count (number/volume) 2.1 10*3 1.0-4.0 Blood monocytes automated count (number/volume) 0.5 10*3 0.0-1.0 Automated eosinophil count 0.3 10*3/uL 0.0-0.3 Automated blood basophil count (count/volume) 0.1 10*3/uL 0.0-0.1 Serum or plasma choriogonadotropin measurement (units/volume) - 01/19/16 20:38 Serum or plasma choriogonadotropin measurement (units/volume) < m[iU ]/mL <5 Complete urinalysis with reflex to culture - 06/14/16 23:12 Urine color determination YELLOW NRG Urine clarity determination SLIGHTLY CLOUDY NRG Urine pH measurement by test strip 5 5-9 Specific gravity of urine by test strip 1.025 1.016- 1.022 Urine protein assay by test strip, semi-quantitative 1+ NEGATIVE Urine glucose detection by automated test strip NEGATIVE NEGATIVE Erythrocytes detection in urine sediment by light microscopy 2+ NEGATIVE Urine ketones detection by automated test strip 4+ NEGATIVE Urine nitrite detection by test strip NEGATIVE NEGATIVE Urine total bilirubin detection by test strip NEGATIVE NEGATIVE Urine urobilinogen measurement by automated test strip (mass/volume) 1 mg/dL NORMAL Urine leukocyte esterase detection by dipstick 1+ NEGATIVE Automated urine sediment erythrocyte count by microscopy (number/high power field) NONE NRG Automated urine sediment leukocyte count by microscopy (number/high power field ) RARE NRG Bacteria detection in urine sediment by light microscopy TRACE NRG Squamous epithelial cells detection in urine sediment by light microscopy 10-25 NRG Crystals detection in urine sediment by light microscopy NONE NRG Casts detection in urine sediment by light microscopy NONE NRG Mucus detection in urine sediment by light microscopy LARGE NRG Complete urinalysis with reflex to culture NO NRG Complete blood count (CBC) with automated white blood cell (WBC) differential - 06/14/16 23:15 Blood leukocytes automated count (number/volume) 9.2 10*3/uL 4.3-11.0 Blood erythrocytes automated count (number/volume) 5.16 10*6/uL 4.35-5.85 Venous blood hemoglobin measurement (mass/volume) 14.9 g/dL 11.5-16.0 Blood hematocrit (volume fraction) 44 % 35-52 Automated erythrocyte mean corpuscular volume 85 [foz_us] 80-99 Automated erythrocyte mean corpuscular hemoglobin (mass per erythrocyte) 29 pg 25-34 Automated erythrocyte mean corpuscular hemoglobin concentration measurement ( mass/volume) 34 g/dL 32-36 Automated erythrocyte distribution width ratio 13.8 % 10.0-14.5 Automated blood platelet count (count/volume) 316 10*3/uL 130-400 Automated blood platelet mean volume measurement 11.3 [foz_us] 7.4-10.4 Automated blood neutrophils/100 leukocytes 74 % 42-75 Automated blood lymphocytes/100 leukocytes 19 % 12-44 Blood monocytes/100 leukocytes 6 % 0-12 Automated blood eosinophils/100 leukocytes 0 % 0-10 Automated blood basophils/100 leukocytes 0 % 0-10 Blood neutrophils automated count (number/volume) 6.9 10*3 1.8-7.8 Blood lymphocytes automated count (number/volume) 1.7 10*3 1.0-4.0 Blood monocytes automated count (number/volume) 0.5 10*3 0.0-1.0 Automated eosinophil count 0.0 10*3/uL 0.0-0.3 Automated blood basophil count (count/volume) 0.0 10*3/uL 0.0-0.1 Serum or plasma choriogonadotropin ( test) detection - 06/14/16 23:15 Serum or plasma choriogonadotropin ( test) detection NEGATIVE NEGATIVE Comprehensive metabolic panel - 06/14/16 23:15 Serum or plasma sodium measurement (moles/volume) 139 mmol/L 135-145 Serum or plasma potassium measurement (moles/volume) 3.6 mmol/L 3.6-5.0 Serum or plasma chloride measurement (moles/volume) 104 mmol/L 98-107 Carbon dioxide 23 mmol/L 21-32 Serum or plasma anion gap determination (moles/volume) 12 mmol/L 5-14 Serum or plasma urea nitrogen measurement (mass/volume) 11 mg/dL 7-18 Serum or plasma creatinine measurement (mass/volume) 0.75 mg/dL 0.60-1.30 Serum or plasma urea nitrogen/creatinine mass ratio 15 NRG Serum or plasma creatinine measurement with calculation of estimated glomerular filtration rate > NRG Serum or plasma glucose measurement (mass/volume) 100 mg/dL 70-105 Serum or plasma calcium measurement (mass/volume) 9.3 mg/dL 8.5-10.1 Serum or plasma total bilirubin measurement (mass/volume) 0.6 mg/dL 0.1-1.0 Serum or plasma alkaline phosphatase measurement (enzymatic activity/volume) 76 U/L 40-136 Serum or plasma aspartate aminotransferase measurement (enzymatic activity/ volume) 15 U/L 5-34 Serum or plasma alanine aminotransferase measurement (enzymatic activity/volume ) 14 U/L 0-55 Serum or plasma protein measurement (mass/volume) 7.6 g/dL 6.4-8.2 Serum or plasma albumin measurement (mass/volume) 4.4 g/dL 3.2-4.5 Bacteria identification in genital specimen by aerobe culture - 06/15/16 01:03 FREE TEXT EXTERNAL PLUS MODERATE NORMAL HUNTER NRG QUANTITY OF GROWTH Abundant Growth NRG Bacteria identification in genital specimen by aerobe culture [id number] NRG Microscopic examination by GUME preparation - 06/15/16 01:03 Microscopic examination by GUME preparation TNP NRG Microscopic examination by wet preparation - 06/15/16 01:03 WET PREP RESULTS 06/15 01:35 BY Twyla THOMPSON NRG Neisseria gonorrhoeae DNA detection by probe and signal amplification method - 06/15/16 01:03 Gonorrhea amp DNA-urine Negative Negative Chlamydia trachomatis DNA detection by probe and signal amplification method - 06/15/16 01:03 Chlamydia trachomatis DNA detection by probe and target amplification method Negative Negative Complete blood count (CBC) with automated white blood cell (WBC) differential - 07/15/16 00:35 Blood leukocytes automated count (number/volume) 9.2 10*3/uL 4.3-11.0 Blood erythrocytes automated count (number/volume) 4.92 10*6/uL 4.35-5.85 Venous blood hemoglobin measurement (mass/volume) 13.9 g/dL 11.5-16.0 Blood hematocrit (volume fraction) 42 % 35-52 Automated erythrocyte mean corpuscular volume 84 [foz_us] 80-99 Automated erythrocyte mean corpuscular hemoglobin (mass per erythrocyte) 28 pg 25-34 Automated erythrocyte mean corpuscular hemoglobin concentration measurement ( mass/volume) 34 g/dL 32-36 Automated erythrocyte distribution width ratio 13.4 % 10.0-14.5 Automated blood platelet count (count/volume) 262 10*3/uL 130-400 Automated blood platelet mean volume measurement 11.2 [foz_us] 7.4-10.4 Automated blood neutrophils/100 leukocytes 69 % 42-75 Automated blood lymphocytes/100 leukocytes 18 % 12-44 Blood monocytes/100 leukocytes 12 % 0-12 Automated blood eosinophils/100 leukocytes 0 % 0-10 Automated blood basophils/100 leukocytes 1 % 0-10 Blood neutrophils automated count (number/volume) 6.3 10*3 1.8-7.8 Blood lymphocytes automated count (number/volume) 1.7 10*3 1.0-4.0 Blood monocytes automated count (number/volume) 1.1 10*3 0.0-1.0 Automated eosinophil count 0.0 10*3/uL 0.0-0.3 Automated blood basophil count (count/volume) 0.1 10*3/uL 0.0-0.1 Serum or plasma choriogonadotropin ( test) detection - 07/15/16 00:35 Serum or plasma choriogonadotropin ( test) detection NEGATIVE NEGATIVE Comprehensive metabolic panel - 07/15/16 00:35 Serum or plasma sodium measurement (moles/volume) 138 mmol/L 135-145 Serum or plasma potassium measurement (moles/volume) 3.7 mmol/L 3.6-5.0 Serum or plasma chloride measurement (moles/volume) 106 mmol/L 98-107 Carbon dioxide 20 mmol/L 21-32 Serum or plasma anion gap determination (moles/volume) 12 mmol/L 5-14 Serum or plasma urea nitrogen measurement (mass/volume) 11 mg/dL 7-18 Serum or plasma creatinine measurement (mass/volume) 0.74 mg/dL 0.60-1.30 Serum or plasma urea nitrogen/creatinine mass ratio 15 NRG Serum or plasma creatinine measurement with calculation of estimated glomerular filtration rate > NRG Serum or plasma glucose measurement (mass/volume) 99 mg/dL 70-105 Serum or plasma calcium measurement (mass/volume) 9.0 mg/dL 8.5-10.1 Serum or plasma total bilirubin measurement (mass/volume) 0.3 mg/dL 0.1-1.0 Serum or plasma alkaline phosphatase measurement (enzymatic activity/volume) 68 U/L 40-136 Serum or plasma aspartate aminotransferase measurement (enzymatic activity/ volume) 15 U/L 5-34 Serum or plasma alanine aminotransferase measurement (enzymatic activity/volume ) 11 U/L 0-55 Serum or plasma protein measurement (mass/volume) 7.3 g/dL 6.4-8.2 Serum or plasma albumin measurement (mass/volume) 3.9 g/dL 3.2-4.5 Serum or plasma amylase measurement (enzymatic activity/volume) - 07/15/16 00: 35 Serum or plasma amylase measurement (enzymatic activity/volume) 37 U /L 25-125 Lipase - 07/15/16 00:35 Lipase 14 U/L 8-78 Complete urinalysis with reflex to culture - 07/15/16 00:41 Urine color determination YELLOW NRG Urine clarity determination CLEAR NRG Urine pH measurement by test strip 7 5-9 Specific gravity of urine by test strip 1.015 1.016- 1.022 Urine protein assay by test strip, semi-quantitative 2+ NEGATIVE Urine glucose detection by automated test strip NEGATIVE NEGATIVE Erythrocytes detection in urine sediment by light microscopy 1+ NEGATIVE Urine ketones detection by automated test strip 3+ NEGATIVE Urine nitrite detection by test strip NEGATIVE NEGATIVE Urine total bilirubin detection by test strip NEGATIVE NEGATIVE Urine urobilinogen measurement by automated test strip (mass/volume) 4 mg/dL NORMAL Urine leukocyte esterase detection by dipstick 1+ NEGATIVE Automated urine sediment erythrocyte count by microscopy (number/high power field) RARE NRG Automated urine sediment leukocyte count by microscopy (number/high power field ) RARE NRG Bacteria detection in urine sediment by light microscopy TRACE NRG Squamous epithelial cells detection in urine sediment by light microscopy 10-25 NRG Crystals detection in urine sediment by light microscopy NONE NRG Casts detection in urine sediment by light microscopy NONE NRG Mucus detection in urine sediment by light microscopy SMALL NRG Complete urinalysis with reflex to culture NO NRG Urine drug screening test - 07/15/16 00:41 Urine phencyclidine detection by screening method NEGATIVE NEGATIVE Urine benzodiazepines detection by screening method NEGATIVE NEGATIVE Urine cocaine detection NEGATIVE NEGATIVE Urine amphetamines detection by screening method NEGATIVE NEGATIVE Urine methamphetamine detection by screening method NEGATIVE NEGATIVE Urine cannabinoids detection by screening method POSITIVE NEGATIVE Urine opiates detection by screening method NEGATIVE NEGATIVE Urine barbiturates detection NEGATIVE NEGATIVE Screening urine tricyclic antidepressants detection NEGATIVE NEGATIVE Urine methadone detection by screening method NEGATIVE NEGATIVE Urine oxycodone detection NEGATIVE NEGATIVE Urine propoxyphene detection NEGATIVE NEGATIVE Complete urinalysis with reflex to culture - 08/01/16 14:49 Urine color determination YELLOW NRG Urine clarity determination CLEAR NRG Urine pH measurement by test strip 5 5-9 Specific gravity of urine by test strip 1.025 1.016- 1.022 Urine protein assay by test strip, semi-quantitative 1+ NEGATIVE Urine glucose detection by automated test strip NEGATIVE NEGATIVE Erythrocytes detection in urine sediment by light microscopy NEGATIVE NEGATIVE Urine ketones detection by automated test strip NEGATIVE NEGATIVE Urine nitrite detection by test strip NEGATIVE NEGATIVE Urine total bilirubin detection by test strip NEGATIVE NEGATIVE Urine urobilinogen measurement by automated test strip (mass/volume) NORMAL NORMAL Urine leukocyte esterase detection by dipstick 3+ NEGATIVE Automated urine sediment erythrocyte count by microscopy (number/high power field) NONE NRG Automated urine sediment leukocyte count by microscopy (number/high power field ) [HPF] NRG Bacteria detection in urine sediment by light microscopy NEGATIVE NRG Squamous epithelial cells detection in urine sediment by light microscopy 25-50 NRG Crystals detection in urine sediment by light microscopy NONE NRG Casts detection in urine sediment by light microscopy NONE NRG Mucus detection in urine sediment by light microscopy NEGATIVE NRG Complete urinalysis with reflex to culture NO NRG Complete blood count (CBC) with automated white blood cell (WBC) differential - 08/01/16 14:55 Blood leukocytes automated count (number/volume) 7.9 10*3/uL 4.3-11.0 Blood erythrocytes automated count (number/volume) 4.76 10*6/uL 4.35-5.85 Venous blood hemoglobin measurement (mass/volume) 13.5 g/dL 11.5-16.0 Blood hematocrit (volume fraction) 41 % 35-52 Automated erythrocyte mean corpuscular volume 86 [foz_us] 80-99 Automated erythrocyte mean corpuscular hemoglobin (mass per erythrocyte) 28 pg 25-34 Automated erythrocyte mean corpuscular hemoglobin concentration measurement ( mass/volume) 33 g/dL 32-36 Automated erythrocyte distribution width ratio 13.3 % 10.0-14.5 Automated blood platelet count (count/volume) 284 10*3/uL 130-400 Automated blood platelet mean volume measurement 10.7 [foz_us] 7.4-10.4 Automated blood neutrophils/100 leukocytes 68 % 42-75 Automated blood lymphocytes/100 leukocytes 23 % 12-44 Blood monocytes/100 leukocytes 6 % 0-12 Automated blood eosinophils/100 leukocytes 2 % 0-10 Automated blood basophils/100 leukocytes 1 % 0-10 Blood neutrophils automated count (number/volume) 5.4 10*3 1.8-7.8 Blood lymphocytes automated count (number/volume) 1.8 10*3 1.0-4.0 Blood monocytes automated count (number/volume) 0.5 10*3 0.0-1.0 Automated eosinophil count 0.2 10*3/uL 0.0-0.3 Automated blood basophil count (count/volume) 0.1 10*3/uL 0.0-0.1 Comprehensive metabolic panel - 08/01/16 14:55 Serum or plasma sodium measurement (moles/volume) 141 mmol/L 135-145 Serum or plasma potassium measurement (moles/volume) 3.9 mmol/L 3.6-5.0 Serum or plasma chloride measurement (moles/volume) 107 mmol/L 98-107 Carbon dioxide 27 mmol/L 21-32 Serum or plasma anion gap determination (moles/volume) 7 mmol/L 5-14 Serum or plasma urea nitrogen measurement (mass/volume) 8 mg/dL 7-18 Serum or plasma creatinine measurement (mass/volume) 0.74 mg/dL 0.60-1.30 Serum or plasma urea nitrogen/creatinine mass ratio 11 NRG Serum or plasma creatinine measurement with calculation of estimated glomerular filtration rate > NRG Serum or plasma glucose measurement (mass/volume) 75 mg/dL 70-105 Serum or plasma calcium measurement (mass/volume) 9.1 mg/dL 8.5-10.1 Serum or plasma total bilirubin measurement (mass/volume) 0.3 mg/dL 0.1-1.0 Serum or plasma alkaline phosphatase measurement (enzymatic activity/volume) 60 U/L 40-136 Serum or plasma aspartate aminotransferase measurement (enzymatic activity/ volume) 14 U/L 5-34 Serum or plasma alanine aminotransferase measurement (enzymatic activity/volume ) 10 U/L 0-55 Serum or plasma protein measurement (mass/volume) 6.7 g/dL 6.4-8.2 Serum or plasma albumin measurement (mass/volume) 3.9 g/dL 3.2-4.5 Lipase - 08/01/16 14:55 Lipase 14 U/L 8-78 Urine drug screening test - 08/06/16 21:50 Urine phencyclidine detection by screening method NEGATIVE NEGATIVE Urine benzodiazepines detection by screening method NEGATIVE NEGATIVE Urine cocaine detection NEGATIVE NEGATIVE Urine amphetamines detection by screening method NEGATIVE NEGATIVE Urine methamphetamine detection by screening method NEGATIVE NEGATIVE Urine cannabinoids detection by screening method NEGATIVE NEGATIVE Urine opiates detection by screening method POSITIVE NEGATIVE Urine barbiturates detection NEGATIVE NEGATIVE Screening urine tricyclic antidepressants detection NEGATIVE NEGATIVE Urine methadone detection by screening method NEGATIVE NEGATIVE Urine oxycodone detection NEGATIVE NEGATIVE Urine propoxyphene detection NEGATIVE NEGATIVE Complete urinalysis with reflex to culture - 08/06/16 21:50 Urine color determination YELLOW NRG Urine clarity determination SLIGHTLY CLOUDY NRG Urine pH measurement by test strip 5 5-9 Specific gravity of urine by test strip 1.020 1.016- 1.022 Urine protein assay by test strip, semi-quantitative 1+ NEGATIVE Urine glucose detection by automated test strip NEGATIVE NEGATIVE Erythrocytes detection in urine sediment by light microscopy 1+ NEGATIVE Urine ketones detection by automated test strip 3+ NEGATIVE Urine nitrite detection by test strip NEGATIVE NEGATIVE Urine total bilirubin detection by test strip NEGATIVE NEGATIVE Urine urobilinogen measurement by automated test strip (mass/volume) NORMAL NORMAL Urine leukocyte esterase detection by dipstick 1+ NEGATIVE Automated urine sediment erythrocyte count by microscopy (number/high power field) NONE NRG Automated urine sediment leukocyte count by microscopy (number/high power field ) [HPF] NRG Bacteria detection in urine sediment by light microscopy MODERATE NRG Squamous epithelial cells detection in urine sediment by light microscopy >50 NRG Crystals detection in urine sediment by light microscopy NONE NRG Casts detection in urine sediment by light microscopy NONE NRG Mucus detection in urine sediment by light microscopy NEGATIVE NRG Complete urinalysis with reflex to culture NO NRG Complete blood count (CBC) with automated white blood cell (WBC) differential - 08/06/16 22:02 Blood leukocytes automated count (number/volume) 8.3 10*3/uL 4.3-11.0 Blood erythrocytes automated count (number/volume) 5.03 10*6/uL 4.35-5.85 Venous blood hemoglobin measurement (mass/volume) 14.2 g/dL 11.5-16.0 Blood hematocrit (volume fraction) 43 % 35-52 Automated erythrocyte mean corpuscular volume 86 [foz_us] 80-99 Automated erythrocyte mean corpuscular hemoglobin (mass per erythrocyte) 28 pg 25-34 Automated erythrocyte mean corpuscular hemoglobin concentration measurement ( mass/volume) 33 g/dL 32-36 Automated erythrocyte distribution width ratio 13.6 % 10.0-14.5 Automated blood platelet count (count/volume) 316 10*3/uL 130-400 Automated blood platelet mean volume measurement 11.3 [foz_us] 7.4-10.4 Automated blood neutrophils/100 leukocytes 71 % 42-75 Automated blood lymphocytes/100 leukocytes 23 % 12-44 Blood monocytes/100 leukocytes 5 % 0-12 Automated blood eosinophils/100 leukocytes 1 % 0-10 Automated blood basophils/100 leukocytes 1 % 0-10 Blood neutrophils automated count (number/volume) 5.9 10*3 1.8-7.8 Blood lymphocytes automated count (number/volume) 1.9 10*3 1.0-4.0 Blood monocytes automated count (number/volume) 0.4 10*3 0.0-1.0 Automated eosinophil count 0.1 10*3/uL 0.0-0.3 Automated blood basophil count (count/volume) 0.1 10*3/uL 0.0-0.1 Serum or plasma choriogonadotropin ( test) detection - 08/06/16 22:02 Serum or plasma choriogonadotropin ( test) detection NEGATIVE NEGATIVE Comprehensive metabolic panel - 08/06/16 22:02 Serum or plasma sodium measurement (moles/volume) 140 mmol/L 135-145 Serum or plasma potassium measurement (moles/volume) 3.6 mmol/L 3.6-5.0 Serum or plasma chloride measurement (moles/volume) 105 mmol/L 98-107 Carbon dioxide 23 mmol/L 21-32 Serum or plasma anion gap determination (moles/volume) 12 mmol/L 5-14 Serum or plasma urea nitrogen measurement (mass/volume) 11 mg/dL 7-18 Serum or plasma creatinine measurement (mass/volume) 0.73 mg/dL 0.60-1.30 Serum or plasma urea nitrogen/creatinine mass ratio 15 0 -20 Serum or plasma creatinine measurement with calculation of estimated glomerular filtration rate > NRG Serum or plasma glucose measurement (mass/volume) 103 mg/dL 70-105 Serum or plasma calcium measurement (mass/volume) 9.3 mg/dL 8.5-10.1 Serum or plasma total bilirubin measurement (mass/volume) 0.4 mg/dL 0.1-1.0 Serum or plasma alkaline phosphatase measurement (enzymatic activity/volume) 72 U/L 40-136 Serum or plasma aspartate aminotransferase measurement (enzymatic activity/ volume) 16 U/L 5-34 Serum or plasma alanine aminotransferase measurement (enzymatic activity/volume ) 12 U/L 0-55 Serum or plasma protein measurement (mass/volume) 7.5 g/dL 6.4-8.2 Serum or plasma albumin measurement (mass/volume) 4.1 g/dL 3.2-4.5 Serum or plasma amylase measurement (enzymatic activity/volume) - 08/06/16 22: 02 Serum or plasma amylase measurement (enzymatic activity/volume) 32 U /L 25-125 Lipase - 08/06/16 22:02 Lipase 9 U/L 8-78 Complete urinalysis with reflex to culture - 08/22/16 21:04 Urine color determination YELLOW NRG Urine clarity determination CLEAR NRG Urine pH measurement by test strip 6 5-9 Specific gravity of urine by test strip 1.025 1.016- 1.022 Urine protein assay by test strip, semi-quantitative 2+ NEGATIVE Urine glucose detection by automated test strip NEGATIVE NEGATIVE Erythrocytes detection in urine sediment by light microscopy 3+ NEGATIVE Urine ketones detection by automated test strip 1+ NEGATIVE Urine nitrite detection by test strip NEGATIVE NEGATIVE Urine total bilirubin detection by test strip NEGATIVE NEGATIVE Urine urobilinogen measurement by automated test strip (mass/volume) 4 mg/dL NORMAL Urine leukocyte esterase detection by dipstick 1+ NEGATIVE Automated urine sediment erythrocyte count by microscopy (number/high power field) NONE NRG Automated urine sediment leukocyte count by microscopy (number/high power field ) [HPF] NRG Bacteria detection in urine sediment by light microscopy NONE NRG Squamous epithelial cells detection in urine sediment by light microscopy 2-5 NRG Crystals detection in urine sediment by light microscopy NONE NRG Casts detection in urine sediment by light microscopy NONE NRG Mucus detection in urine sediment by light microscopy SMALL NRG Complete urinalysis with reflex to culture NO NRG Urine drug screening test - 08/22/16 21:09 Urine phencyclidine detection by screening method NEGATIVE NEGATIVE Urine benzodiazepines detection by screening method NEGATIVE NEGATIVE Urine cocaine detection NEGATIVE NEGATIVE Urine amphetamines detection by screening method NEGATIVE NEGATIVE Urine methamphetamine detection by screening method NEGATIVE NEGATIVE Urine cannabinoids detection by screening method POSITIVE NEGATIVE Urine opiates detection by screening method POSITIVE NEGATIVE Urine barbiturates detection NEGATIVE NEGATIVE Screening urine tricyclic antidepressants detection NEGATIVE NEGATIVE Urine methadone detection by screening method NEGATIVE NEGATIVE Urine oxycodone detection NEGATIVE NEGATIVE Urine propoxyphene detection NEGATIVE NEGATIVE Bacterial urine culture - 08/22/16 21:09 URINE CULTURE RESULTS <10,000/ML NRG Gram stain microscopy - 09/25/16 18:25 GRAM STAIN RESULT FEW WBC'S, NO BACTERIA OBSERVED NRG Bacteria identification in wound by culture - 09/25/16 18:25 Bacteria identification in wound by culture [id number] NR FREE TEXT EXTERNAL THIS ISOLATE IS MRSA NRG QUANTITY OF GROWTH Abundant Growth NRG Bacterial susceptibility panel - 09/25/16 18:25 Oxacillin susceptibility test by minimum inhibitory concentration > = NRG Gentamicin susceptibility test by minimum inhibitory concentration < = NRG Clindamycin susceptibility test by minimum inhibitory concentration <= NRG Erythromycin susceptibility test by minimum inhibitory concentration >= NRG Trimethoprim/sulfamethoxazole susceptibility test by minimum inhibitoryconcentration <= NRG Vancomycin susceptibility test by minimum inhibitory concentration 1 NRG Levofloxacin susceptibility test by minimum inhibitory concentration 4 NRG Rifampin susceptibility test by minimum inhibitory concentration <= NRG Tetracycline susceptibility test by minimum inhibitory concentration <= NRG Aerobic Bacterial Culture - 11/01/16 15:01 Aerobic Bacterial Culture Note CULTURE, AEROBIC - 11/01/16 15:01 Aerobic Bacterial Culture Final report NRG Result 1 Mixed skin hunter NRG Complete blood count (CBC) with automated white blood cell (WBC) differential - 11/29/16 19:18 Blood leukocytes automated count (number/volume) 9.6 10*3/uL 4.3-11.0 Blood erythrocytes automated count (number/volume) 5.32 10*6/uL 4.35-5.85 Venous blood hemoglobin measurement (mass/volume) 14.8 g/dL 11.5-16.0 Blood hematocrit (volume fraction) 44 % 35-52 Automated erythrocyte mean corpuscular volume 83 [foz_us] 80-99 Automated erythrocyte mean corpuscular hemoglobin (mass per erythrocyte) 28 pg 25-34 Automated erythrocyte mean corpuscular hemoglobin concentration measurement ( mass/volume) 34 g/dL 32-36 Automated erythrocyte distribution width ratio 13.4 % 10.0-14.5 Automated blood platelet count (count/volume) 323 10*3/uL 130-400 Automated blood platelet mean volume measurement 10.8 [foz_us] 7.4-10.4 Automated blood neutrophils/100 leukocytes 70 % 42-75 Automated blood lymphocytes/100 leukocytes 23 % 12-44 Blood monocytes/100 leukocytes 5 % 0-12 Automated blood eosinophils/100 leukocytes 1 % 0-10 Automated blood basophils/100 leukocytes 1 % 0-10 Blood neutrophils automated count (number/volume) 6.7 10*3 1.8-7.8 Blood lymphocytes automated count (number/volume) 2.3 10*3 1.0-4.0 Blood monocytes automated count (number/volume) 0.5 10*3 0.0-1.0 Automated eosinophil count 0.1 10*3/uL 0.0-0.3 Automated blood basophil count (count/volume) 0.1 10*3/uL 0.0-0.1 Comprehensive metabolic panel - 11/29/16 19:18 Serum or plasma sodium measurement (moles/volume) 141 mmol/L 135-145 Serum or plasma potassium measurement (moles/volume) 3.4 mmol/L 3.6-5.0 Serum or plasma chloride measurement (moles/volume) 104 mmol/L 98-107 Carbon dioxide 24 mmol/L 21-32 Serum or plasma anion gap determination (moles/volume) 13 mmol/L 5-14 Serum or plasma urea nitrogen measurement (mass/volume) 8 mg/dL 7-18 Serum or plasma creatinine measurement (mass/volume) 0.70 mg/dL 0.60-1.30 Serum or plasma urea nitrogen/creatinine mass ratio 11 NRG Serum or plasma creatinine measurement with calculation of estimated glomerular filtration rate > NRG Serum or plasma glucose measurement (mass/volume) 91 mg/dL 70-105 Serum or plasma calcium measurement (mass/volume) 9.3 mg/dL 8.5-10.1 Serum or plasma total bilirubin measurement (mass/volume) 0.4 mg/dL 0.1-1.0 Serum or plasma alkaline phosphatase measurement (enzymatic activity/volume) 84 U/L 40-136 Serum or plasma aspartate aminotransferase measurement (enzymatic activity/ volume) 15 U/L 5-34 Serum or plasma alanine aminotransferase measurement (enzymatic activity/volume ) 15 U/L 0-55 Serum or plasma protein measurement (mass/volume) 8.1 g/dL 6.4-8.2 Serum or plasma albumin measurement (mass/volume) 4.3 g/dL 3.2-4.5 Complete urinalysis with reflex to culture - 11/29/16 19:20 Urine color determination YELLOW NRG Urine clarity determination SLIGHTLY CLOUDY NRG Urine pH measurement by test strip 6.5 5-9 Specific gravity of urine by test strip 1.015 1.016- 1.022 Urine protein assay by test strip, semi-quantitative 1+ NEGATIVE Urine glucose detection by automated test strip NEGATIVE NEGATIVE Erythrocytes detection in urine sediment by light microscopy 1+ NEGATIVE Urine ketones detection by automated test strip NEGATIVE NEGATIVE Urine nitrite detection by test strip NEGATIVE NEGATIVE Urine total bilirubin detection by test strip NEGATIVE NEGATIVE Urine urobilinogen measurement by automated test strip (mass/volume) NORMAL NORMAL Urine leukocyte esterase detection by dipstick NEGATIVE NEGATIVE Automated urine sediment erythrocyte count by microscopy (number/high power field) RARE NRG Automated urine sediment leukocyte count by microscopy (number/high power field ) [HPF] NRG Bacteria detection in urine sediment by light microscopy TRACE NRG Squamous epithelial cells detection in urine sediment by light microscopy 2-5 NRG Crystals detection in urine sediment by light microscopy NONE NRG Casts detection in urine sediment by light microscopy NONE NRG Mucus detection in urine sediment by light microscopy LARGE NRG Complete urinalysis with reflex to culture NO NRG Urine beta human chorionic gonadotropin (hCG) measurement - 11/29/16 19:20 Urine beta human chorionic gonadotropin (hCG) measurement NEGATIVE NEGATIVE Complete blood count (CBC) with automated white blood cell (WBC) differential - 12/11/16 16:33 Blood leukocytes automated count (number/volume) 10.3 10*3/uL 4.3-11.0 Blood erythrocytes automated count (number/volume) 5.00 10*6/uL 4.35-5.85 Venous blood hemoglobin measurement (mass/volume) 14.1 g/dL 11.5-16.0 Blood hematocrit (volume fraction) 42 % 35-52 Automated erythrocyte mean corpuscular volume 85 [foz_us] 80-99 Automated erythrocyte mean corpuscular hemoglobin (mass per erythrocyte) 28 pg 25-34 Automated erythrocyte mean corpuscular hemoglobin concentration measurement ( mass/volume) 33 g/dL 32-36 Automated erythrocyte distribution width ratio 13.7 % 10.0-14.5 Automated blood platelet count (count/volume) 282 10*3/uL 130-400 Automated blood platelet mean volume measurement 11.3 [foz_us] 7.4-10.4 Automated blood neutrophils/100 leukocytes 68 % 42-75 Automated blood lymphocytes/100 leukocytes 23 % 12-44 Blood monocytes/100 leukocytes 6 % 0-12 Automated blood eosinophils/100 leukocytes 3 % 0-10 Automated blood basophils/100 leukocytes 1 % 0-10 Blood neutrophils automated count (number/volume) 7.0 10*3 1.8-7.8 Blood lymphocytes automated count (number/volume) 2.4 10*3 1.0-4.0 Blood monocytes automated count (number/volume) 0.6 10*3 0.0-1.0 Automated eosinophil count 0.3 10*3/uL 0.0-0.3 Automated blood basophil count (count/volume) 0.1 10*3/uL 0.0-0.1 Comprehensive metabolic panel - 12/11/16 16:33 Serum or plasma sodium measurement (moles/volume) 140 mmol/L 135-145 Serum or plasma potassium measurement (moles/volume) 3.9 mmol/L 3.6-5.0 Serum or plasma chloride measurement (moles/volume) 107 mmol/L 98-107 Carbon dioxide 22 mmol/L 21-32 Serum or plasma anion gap determination (moles/volume) 11 mmol/L 5-14 Serum or plasma urea nitrogen measurement (mass/volume) 10 mg/dL 7-18 Serum or plasma creatinine measurement (mass/volume) 0.68 mg/dL 0.60-1.30 Serum or plasma urea nitrogen/creatinine mass ratio 15 NRG Serum or plasma creatinine measurement with calculation of estimated glomerular filtration rate > NRG Serum or plasma glucose measurement (mass/volume) 89 mg/dL 70-105 Serum or plasma calcium measurement (mass/volume) 9.3 mg/dL 8.5-10.1 Serum or plasma total bilirubin measurement (mass/volume) 0.3 mg/dL 0.1-1.0 Serum or plasma alkaline phosphatase measurement (enzymatic activity/volume) 79 U/L 40-136 Serum or plasma aspartate aminotransferase measurement (enzymatic activity/ volume) 18 U/L 5-34 Serum or plasma alanine aminotransferase measurement (enzymatic activity/volume ) 26 U/L 0-55 Serum or plasma protein measurement (mass/volume) 7.4 g/dL 6.4-8.2 Serum or plasma albumin measurement (mass/volume) 4.0 g/dL 3.2-4.5 Serum or plasma C reactive protein measurement (mass/volume) - 12/11/16 16:33 Serum or plasma C reactive protein measurement (mass/volume) 0.31 mg /dL 0.00-0.50 Complete urinalysis with reflex to culture - 12/11/16 16:40 Urine color determination YELLOW NRG Urine clarity determination CLEAR NRG Urine pH measurement by test strip 7 5-9 Specific gravity of urine by test strip 1.015 1.016- 1.022 Urine protein assay by test strip, semi-quantitative 1+ NEGATIVE Urine glucose detection by automated test strip NEGATIVE NEGATIVE Erythrocytes detection in urine sediment by light microscopy NEGATIVE NEGATIVE Urine ketones detection by automated test strip 1+ NEGATIVE Urine nitrite detection by test strip NEGATIVE NEGATIVE Urine total bilirubin detection by test strip NEGATIVE NEGATIVE Urine urobilinogen measurement by automated test strip (mass/volume) NORMAL NORMAL Urine leukocyte esterase detection by dipstick NEGATIVE NEGATIVE Automated urine sediment erythrocyte count by microscopy (number/high power field) NONE NRG Automated urine sediment leukocyte count by microscopy (number/high power field ) NONE NRG Bacteria detection in urine sediment by light microscopy FEW NRG Squamous epithelial cells detection in urine sediment by light microscopy 5-10 NRG Crystals detection in urine sediment by light microscopy NONE NRG Casts detection in urine sediment by light microscopy NONE NRG Mucus detection in urine sediment by light microscopy MODERATE NRG Complete urinalysis with reflex to culture NO NRG Streptococcus pyogenes antigen detection - 12/27/16 20:45 Streptococcus pyogenes antigen detection NEGATIVE NEGATIVE Bacterial throat culture - 12/27/16 20:45 Bacterial throat culture NBS NRG CBC - 12/29/16 11:56 WHITE BLOOD CELL COUNT 6.1 Thousand/uL 3.8-10.8 RED BLOOD CELL COUNT 5.28 Million/uL 3.80-5.10 HEMOGLOBIN 15.0 g/dL 11.7-15.5 HEMATOCRIT 44.7 % 35.0-45.0 MCV 84.7 fL 80.0-100.0 MCH 28.4 pg 27.0-33.0 MCHC 33.6 g/dL 32.0-36.0 RDW 13.5 % 11.0-15.0 PLATELET COUNT 261 Thousand/uL 140-400 MPV 11.1 fL 7.5-12.5 ABSOLUTE NEUTROPHILS 3855 cells/uL 6250-8207 ABSOLUTE LYMPHOCYTES 1598 cells/uL 850-3900 ABSOLUTE MONOCYTES 439 cells/uL 200-950 ABSOLUTE EOSINOPHILS 159 cells/uL 15-500 ABSOLUTE BASOPHILS 49 cells/uL 0-200 NEUTROPHILS 63.2 % NRG LYMPHOCYTES 26.2 % NRG MONOCYTES 7.2 % NRG EOSINOPHILS 2.6 % NRG BASOPHILS 0.8 % NRG Complete urinalysis with reflex to culture - 01/14/17 22:43 Urine color determination YELLOW NRG Urine clarity determination CLEAR NRG Urine pH measurement by test strip 7 5-9 Specific gravity of urine by test strip 1.010 1.016- 1.022 Urine protein assay by test strip, semi-quantitative 2+ NEGATIVE Urine glucose detection by automated test strip NEGATIVE NEGATIVE Erythrocytes detection in urine sediment by light microscopy NEGATIVE NEGATIVE Urine ketones detection by automated test strip 3+ NEGATIVE Urine nitrite detection by test strip NEGATIVE NEGATIVE Urine total bilirubin detection by test strip NEGATIVE NEGATIVE Urine urobilinogen measurement by automated test strip (mass/volume) NORMAL NORMAL Urine leukocyte esterase detection by dipstick NEGATIVE NEGATIVE Automated urine sediment erythrocyte count by microscopy (number/high power field) NONE NRG Automated urine sediment leukocyte count by microscopy (number/high power field ) NONE NRG Bacteria detection in urine sediment by light microscopy NONE NRG Squamous epithelial cells detection in urine sediment by light microscopy 5-10 NRG Crystals detection in urine sediment by light microscopy NONE NRG Casts detection in urine sediment by light microscopy NONE NRG Mucus detection in urine sediment by light microscopy SMALL NRG Complete urinalysis with reflex to culture NO NRG Urine beta human chorionic gonadotropin (hCG) measurement - 01/14/17 22:43 Urine beta human chorionic gonadotropin (hCG) measurement NEGATIVE NEGATIVE Urine drug screening test - 01/14/17 22:43 Urine phencyclidine detection by screening method NEGATIVE NEGATIVE Urine benzodiazepines detection by screening method NEGATIVE NEGATIVE Urine cocaine detection NEGATIVE NEGATIVE Urine amphetamines detection by screening method NEGATIVE NEGATIVE Urine methamphetamine detection by screening method NEGATIVE NEGATIVE Urine cannabinoids detection by screening method POSITIVE NEGATIVE Urine opiates detection by screening method NEGATIVE NEGATIVE Urine barbiturates detection NEGATIVE NEGATIVE Screening urine tricyclic antidepressants detection NEGATIVE NEGATIVE Urine methadone detection by screening method NEGATIVE NEGATIVE Urine oxycodone detection NEGATIVE NEGATIVE Urine propoxyphene detection NEGATIVE NEGATIVE CULTURE, GENITAL - 04/04/17 11:49 CULTURE, GENITAL SEE NOTE NRG PDM - ATS (PROFILE 8 WITH CONFIRMATION) - 07/11/17 14:03 Prescribed Drug 1 Ritalin(TM) NRG Creatinine 290.5 mg/dL > or=20.0 pH 6.50 4.5 - 9.0 Oxidant NEGATIVE mcg/mL <200 Amphetamines NEGATIVE ng/mL <500 medMATCH Amphetamines CONSISTENT NRG Benzodiazepines NEGATIVE CONFIRMED ng/mL <100 Marijuana Metabolite NEGATIVE ng/mL <20 medMATCH Marijuana Metab CONSISTENT NRG Cocaine Metabolite NEGATIVE ng/mL <150 medMATCH Cocaine Metab CONSISTENT NRG Opiates NEGATIVE ng/mL <100 medMATCH Opiates CONSISTENT NRG Oxycodone NEGATIVE ng/mL <100 medMATCH Oxycodone CONSISTENT NRG COMMENT NRG Buprenorphine NEGATIVE ng/mL <5 MDMA NEGATIVE ng/mL <500 medMATCH MDMA CONSISTENT NRG Alcohol Metabolites POSITIVE ng/mL <500 6 Acetylmorphine NEGATIVE ng/mL <10 medMATCH 6 Acetylmorphine CONSISTENT NRG Alphahydroxyalprazolam NEGATIVE ng/mL <25 medMATCH aOH alprazolam CONSISTENT NRG Alphahydroxymidazolam NEGATIVE ng/mL <50 medMATCH aOH midazolam CONSISTENT NRG Alphahydroxytriazolam NEGATIVE ng/mL <50 medMATCH aOH triazolam CONSISTENT NRG Aminoclonazepam NEGATIVE ng/mL <25 medMATCH Aminoclonazepam CONSISTENT NRG Hydroxyethylflurazepam NEGATIVE ng/mL <50 medMATCH OH,Et flurazepam CONSISTENT NRG Lorazepam NEGATIVE ng/mL <50 medMATCH Lorazepam CONSISTENT NRG Nordiazepam NEGATIVE ng/mL <50 medMATCH Nordiazepam CONSISTENT NRG Oxazepam NEGATIVE ng/mL <50 medMATCH Oxazepam CONSISTENT NRG Temazepam NEGATIVE ng/mL <50 medMATCH Temazepam CONSISTENT NRG medMATCH Buprenorphine CONSISTENT NRG Ethyl Glucuronide (ETG) 38888 ng/mL <500 medMATCH ETG INCONSISTENT NRG Ethyl Sulfate (ETS) 3220 ng/mL <100 medMATCH ETS INCONSISTENT NRG Complete blood count (CBC) with automated white blood cell (WBC) differential - 07/25/17 16:46 Blood leukocytes automated count (number/volume) 9.1 10*3/uL 4.3-11.0 Blood erythrocytes automated count (number/volume) 5.39 10*6/uL 4.35-5.85 Venous blood hemoglobin measurement (mass/volume) 15.6 g/dL 11.5-16.0 Blood hematocrit (volume fraction) 45 % 35-52 Automated erythrocyte mean corpuscular volume 84 [foz_us] 80-99 Automated erythrocyte mean corpuscular hemoglobin (mass per erythrocyte) 29 pg 25-34 Automated erythrocyte mean corpuscular hemoglobin concentration measurement ( mass/volume) 35 g/dL 32-36 Automated erythrocyte distribution width ratio 13.7 % 10.0-14.5 Automated blood platelet count (count/volume) 307 10*3/uL 130-400 Automated blood platelet mean volume measurement 11.0 [foz_us] 7.4-10.4 Automated blood neutrophils/100 leukocytes 81 % 42-75 Automated blood lymphocytes/100 leukocytes 15 % 12-44 Blood monocytes/100 leukocytes 4 % 0-12 Automated blood eosinophils/100 leukocytes 0 % 0-10 Automated blood basophils/100 leukocytes 1 % 0-10 Blood neutrophils automated count (number/volume) 7.3 10*3 1.8-7.8 Blood lymphocytes automated count (number/volume) 1.4 10*3 1.0-4.0 Blood monocytes automated count (number/volume) 0.3 10*3 0.0-1.0 Automated eosinophil count 0.0 10*3/uL 0.0-0.3 Automated blood basophil count (count/volume) 0.1 10*3/uL 0.0-0.1 Serum or plasma choriogonadotropin ( test) detection - 07/25/17 16:46 Serum or plasma choriogonadotropin ( test) detection NEGATIVE NEGATIVE Comprehensive metabolic panel - 07/25/17 16:46 Serum or plasma sodium measurement (moles/volume) 139 mmol/L 135-145 Serum or plasma potassium measurement (moles/volume) 3.8 mmol/L 3.6-5.0 Serum or plasma chloride measurement (moles/volume) 104 mmol/L 98-107 Carbon dioxide 22 mmol/L 21-32 Serum or plasma anion gap determination (moles/volume) 13 mmol/L 5-14 Serum or plasma urea nitrogen measurement (mass/volume) 11 mg/dL 7-18 Serum or plasma creatinine measurement (mass/volume) 0.81 mg/dL 0.60-1.30 Serum or plasma urea nitrogen/creatinine mass ratio 14 NRG Serum or plasma creatinine measurement with calculation of estimated glomerular filtration rate > NRG Serum or plasma glucose measurement (mass/volume) 169 mg/dL 70-105 Serum or plasma calcium measurement (mass/volume) 9.9 mg/dL 8.5-10.1 Serum or plasma total bilirubin measurement (mass/volume) 0.5 mg/dL 0.1-1.0 Serum or plasma alkaline phosphatase measurement (enzymatic activity/volume) 85 U/L 40-136 Serum or plasma aspartate aminotransferase measurement (enzymatic activity/ volume) 17 U/L 5-34 Serum or plasma alanine aminotransferase measurement (enzymatic activity/volume ) 16 U/L 0-55 Serum or plasma protein measurement (mass/volume) 8.4 g/dL 6.4-8.2 Serum or plasma albumin measurement (mass/volume) 4.7 g/dL 3.2-4.5 Complete urinalysis with reflex to culture - 07/25/17 17:24 Urine color determination YELLOW NRG Urine clarity determination SLIGHTLY CLOUDY NRG Urine pH measurement by test strip 6 5-9 Specific gravity of urine by test strip 1.020 1.016- 1.022 Urine protein assay by test strip, semi-quantitative 2+ NEGATIVE Urine glucose detection by automated test strip NEGATIVE NEGATIVE Erythrocytes detection in urine sediment by light microscopy 1+ NEGATIVE Urine ketones detection by automated test strip NEGATIVE NEGATIVE Urine nitrite detection by test strip NEGATIVE NEGATIVE Urine total bilirubin detection by test strip NEGATIVE NEGATIVE Urine urobilinogen measurement by automated test strip (mass/volume) 1 mg/dL NORMAL Urine leukocyte esterase detection by dipstick 1+ NEGATIVE Automated urine sediment erythrocyte count by microscopy (number/high power field) RARE NRG Automated urine sediment leukocyte count by microscopy (number/high power field ) [HPF] NRG Bacteria detection in urine sediment by light microscopy FEW NRG Squamous epithelial cells detection in urine sediment by light microscopy 25-50 NRG Crystals detection in urine sediment by light microscopy NONE NRG Casts detection in urine sediment by light microscopy NONE NRG Mucus detection in urine sediment by light microscopy LARGE NRG Complete urinalysis with reflex to culture NO NRG Encounters ACCT No. Visit Date/Time Discharge Status Pt. Type Provider Facility Loc./Unit Complaint [id number] 09/10/2014 15:31:00 09/10/2014 23:59:59 CLS Outpatient ABIDA [facility] RAD [id number] 06/04/2014 17:36:00 06/04/2014 17:36:00 DIS Outpatient ABIDA [facility] PANACE [id number] 02/19/2014 16:25:00 02/19/2014 17:20:00 DIS Inpatient ABIDA [facility] OBS [id number] 12/03/2013 14:36:00 12/03/2013 14:36:00 DIS Outpatient ABIDA [facility] RAD [id number] 11/29/2013 17:45:00 11/29/2013 17:45:00 DIS Outpatient JACY CORREIA [facility] LAB [id number] 01/19/2014 00:00:00 Document Registration [id number] 01/19/2013 00:00:00 Document Registration [id number] 06/13/2014 20:11:17 ACT Document Registration [id number] 07/25/2017 16:37:00 07/25/2017 17:51:00 DIS Emergency ROSA ESTEVEZ APRN [facility] ER VOMITING [id number] 03/09/2017 10:00:00 03/09/2017 23:59:59 CLS Preadmit NIKOS AVALOS DO [facility] CARD NAUSEA AND VOMITTING [id number] 02/23/2017 08:56:00 02/23/2017 23:59:59 CLS Outpatient KENNY DURAN DO D [facility] RAD NAUSEA AND VOMITTING [id number] 01/25/2017 07:27:00 01/25/2017 23:59:59 CLS Preadmit KENNY DURAN DO [facility] CARD NAUSEA AND VOMITTING [id number] 01/14/2017 22:35:00 01/15/2017 00:25:00 DIS Emergency BRENDA ADAMS DO [facility] ER VOMITING [id number] 12/27/2016 20:31:00 12/27/2016 21:26:00 DIS Emergency ANASTACIA LAM [facility] ER SORE THROAT [id number] 12/11/2016 16:29:00 12/11/2016 18:07:00 DIS Emergency CURTIS GOMEZ MD [facility] ER ABD PAIN/N/V [id number] 11/29/2016 18:07:00 11/29/2016 20:29:00 DIS Emergency ROSA ESTEVEZ APRN [facility] ER ABDOMINAL PAIN,VOMITING [id number] 09/25/2016 17:11:00 09/25/2016 18:47:00 DIS Emergency ANASTACIA LAM [facility] ER R ARMPIT LUMP/PAIN [id number] 08/22/2016 20:41:00 08/22/2016 22:00:00 DIS Emergency ANGIE DOJAMESA K [facility] ER FEVER/STOMACH PAIN [id number] 08/06/2016 21:44:00 08/07/2016 00:03:00 DIS Emergency ANGIE DOJAMESA K [facility] ER R SIDE AND BACK PAIN [id number] 08/01/2016 14:39:00 08/01/2016 16:08:00 DIS Emergency ROSA ESTEVEZ APRN [facility] ER RUQ PAIN [id number] 07/15/2016 00:30:00 07/15/2016 01:59:00 DIS Emergency ANGIE DO, BRENDA K [facility] ER ABD PAIN [id number] 06/14/2016 22:59:00 06/15/2016 02:08:00 DIS Emergency GEORGINA DIAZ MD [facility] ER VOMITING [id number] 03/24/2016 09:43:00 03/24/2016 10:46:00 DIS Emergency ROSA ESTEVEZ APRN [facility] ER POSS INSECT BITE LEFT EYE SWOLLEN/KNOTS ON FACE [id number] 02/23/2016 12:54:00 02/23/2016 14:09:00 DIS Emergency CURTIS GOMEZ MD [facility] ER FACIAL SWELLING VOMITING [id number] 01/19/2016 20:02:00 01/19/2016 21:20:00 DIS Emergency BRENDA ADAMS DO [facility] ER BREASTS SWELLING/LEAKING FLUID [id number] 10/15/2015 19:25:00 10/15/2015 21:19:00 DIS Emergency CURTIS GOMEZ MD [facility] ER PSYCH EVAL [id number] 10/08/2015 18:34:00 10/08/2015 19:43:00 DIS Emergency JOE POLANCO, GEORGINA Sierra [facility] ER ANXIETY [id number] 09/23/2015 16:37:00 09/23/2015 18:22:00 DIS Emergency ROSA ESTEVEZ APRN [facility] ER LEFT ARM INJ [id number] 08/08/2015 15:14:00 08/08/2015 17:21:00 DIS Emergency NEVILLE FLOWERS [facility] ER STOMACH PAIN [id number] 07/12/2015 18:06:00 07/12/2015 20:33:00 DIS Emergency ROSA ESTEVEZ APRN [facility] ER VOMITING/FEELING HOT/ABD PAIN [id number] 06/13/2014 20:10:00 06/13/2014 21:27:00 DIS Emergency BRENDA ADAMS DO [facility] ER LT ANKLE PAIN [id number] 04/09/2013 15:36:00 07/08/2013 00:01:00 DIS Outpatient GENARO JURADO MD [facility] RAD POOR GROWTH [id number] 06/01/2013 21:35:00 06/02/2013 00:23:00 DIS Emergency GEORGINA DIAZ MD [facility] ER DIZZY;HEADACHE [id number] 04/23/2013 20:26:00 04/25/2013 11:25:00 DIS Inpatient GENARO JURADO MD [facility] WS INDUCTION [id number] 04/04/2013 18:02:00 04/04/2013 18:48:00 DIS Outpatient GENARO JURADO MD [facility] WSo VAGINAL BLEEDING [id number] 03/24/2013 19:59:00 03/24/2013 21:55:00 DIS Outpatient GENARO JURADO MD [facility] WSo CONTRACTIONS [id number] 03/22/2013 13:00:00 03/22/2013 23:59:59 CLS Outpatient GENARO JURADO MD [facility] RAD F/U GROWTH [id number] 03/14/2013 11:48:00 03/14/2013 23:59:59 CLS Outpatient JOSE ALEJANDRO TOWNSEND APRN [facility] LAB DIABETES SCREENING [id number] 02/27/2013 10:19:00 02/27/2013 12:23:00 DIS Outpatient GENARO JURADO MD [facility] WSo LOW ABD PAIN [id number] 02/15/2013 13:33:00 02/15/2013 23:59:59 CLS Outpatient GENARO JURADO MD [facility] RAD DECREASED FUNDAL HEIGHT [id number] 02/15/2013 01:11:00 02/15/2013 03:45:00 DIS Outpatient GENARO JURADO MD [facility] WSo ABD PAIN [id number] 11/30/2012 12:12:00 11/30/2012 23:59:59 CLS Outpatient LEONARD CHIN DO [facility] RAD ABNORMAL TETRA SCREEN FOR NEURAL TUBE DEFECT [id number] 07/09/2013 15:15:00 Document Registration [id number] 09/19/2013 13:17:00 09/19/2013 23:59:59 CLS Outpatient ADDISON ADAMS DDS [id number] 07/25/2013 16:14:00 07/25/2013 23:59:59 CLS Outpatient LEONARD CHIN DO [id number] 06/12/2013 15:36:00 06/12/2013 23:59:59 CLS Outpatient JOSE ALEJANDRO TOWNSEND APRN [id number] 06/12/2013 15:36:00 06/12/2013 23:59:59 CLS Outpatient CARY [employer] B[employer] 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 ALEJANDRO Pulido Alcides [id number] 05/27/2013 10:47:00 05/27/2013 23:59:59 CLS Outpatient GENARO JURADO MD [id number] 04/19/2013 12:45:00 04/19/2013 23:59:59 CLS Outpatient MORRIS PATHAK [id number] 04/18/2013 15:34:00 04/18/2013 23:59:59 CLS Outpatient GENARO JURADO MD [id number] 04/18/2013 15:34:00 04/18/2013 23:59:59 CLS Outpatient GENARO JURADO MD [id number] 04/10/2013 15:35:00 04/10/2013 23:59:59 CLS Outpatient GENARO JURADO MD [id number] 04/04/2013 09:45:00 04/04/2013 23:59:59 CLS Outpatient MORRIS PATHAK [id number] 04/02/2013 15:49:00 04/02/2013 23:59:59 CLS Outpatient GENARO JURADO MD [id number] 03/26/2013 12:39:00 03/26/2013 23:59:59 CLS Outpatient GENARO JURADO MD [id number] 03/20/2013 15:19:00 03/20/2013 23:59:59 CLS Outpatient GENARO JURADO MD [id number] 03/08/2013 13:10:00 03/08/2013 23:59:59 CLS Outpatient MORRIS PATHAK [id number] 03/06/2013 16:00:00 03/06/2013 23:59:59 CLS Outpatient GENARO JURADO MD [id number] 02/06/2013 15:57:00 02/06/2013 23:59:59 CLS Outpatient GENARO JURADO MD [id number] 01/23/2013 13:27:00 01/23/2013 23:59:59 CLS Outpatient RICOAugustin LÓPEZ JERRI Mcgrath [id number] 2013 16:09:00 2013 23:59:59 CLS Outpatient LEONARD CHIN DO [id number] 2013 16:09:00 2013 23:59:59 CLS Outpatient RHIANNON MD, GENARO N [id number] 12/12/2012 15:59:00 12/12/2012 23:59:59 CLS Outpatient LEONARD CHIN DO [id number] 11/22/2012 10:40:00 11/22/2012 23:59:59 CLS Outpatient LEONARD CHIN DO [id number] 11/14/2012 09:39:00 11/14/2012 23:59:59 CLS Outpatient LEONARD CHIN DO [id number] 11/02/2012 10:39:00 11/02/2012 23:59:59 CLS Outpatient JERRI JACKSON APRN [id number] 11/07/2012 10:55:00 Document Registration [id number] 11/02/2012 10:39:00 Document Registration [id number] 11/02/2015 18:06:00 Document Registration [email or web address] 09/11/2014 01:53:06 ACT Document Registration [id number] 01/07/2015 08:00:00 01/07/2015 23:59:59 CLS Outpatient [id number] 07/06/2015 04:44:56 Document Registration [id number] 07/06/2015 04:38:06 Document Registration [id number] 07/06/2015 04:29:06 Document Registration [id number] 07/06/2015 04:29:04 Document Registration [id number] 06/08/2015 10:02:39 Document Registration [id number] 05/11/2015 04:31:13 Document Registration [id number] 05/07/2015 13:50:42 Document Registration [id number] 05/07/2015 13:49:06 Document Registration [id number] 05/07/2015 13:48:01 Document Registration [id number] 05/07/2015 13:45:53 Document Registration [id number] 04/22/2015 04:28:54 Document Registration [id number] 04/09/2015 14:39:10 Document Registration [id number] 04/09/2015 14:38:37 Document Registration [id number] 04/09/2015 14:38:35 Document Registration [id number] 04/09/2015 14:38:32 Document Registration [id number] 04/09/2015 14:38:30 Document Registration [id number] 04/09/2015 14:38:02 Document Registration [id number] 04/09/2015 14:37:47 Document Registration [id number] 11/04/2016 11:08:00 Document Registration [id number] 07/11/2017 13:20:00 07/11/2017 23:59:59 [facility] Outpatient [facility]DEZ [facility] [id number] 07/11/2017 13:20:00 Document Registration [id number] 04/04/2017 11:00:00 Document Registration [id number] 12/29/2016 11:00:00 Document Registration [id number] 11/01/2016 11:45:00 Document Registration
== END 2017-09-10 18:15 | disposition left against medical advice (07) ==
LOC: EDUNIT# 17:47 → ER 17:49
DX: R50.9 Fever, unspecified (principal); M54.9 Dorsalgia, unspecified; R07.0 Pain in throat

== ENCOUNTER 2017-12-03 13:57 | Emergency (ER) | payer MEDICAID, OTHER ==
[~2017-12-03] VITALS: Ht 157.5 cm; Wt 59.0 kg
[~2017-12-03 13:57] MED LIST changes: +HYDR-4226 PO; -HYDR-757 PO
--- OUTSIDE RECORDS SUMMARY | 2017-12-03 14:04 | XMS REPORT ---
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 Name Role Phone HARIKA RODRIGUEZ Unavailable PROBLEMS Type Condition ICD9-CM Code [id number] Code Onset Dates Condition Status SNOMED Code Problem Anxiety state F41.1 Active 959065250 Problem Depressive disorder, not elsewhere classified F32.9 Active 81894046 Problem ADHD (attention deficit hyperactivity disorder), combined type F90.2 Active 39424993 Problem Irritable bowel syndrome with diarrhea K58.0 Active 838105833 Problem Plantar wart of right foot B07.0 Active [id number] Problem Slow transit constipation K59.01 Active 47205315 Problem Rhinitis, unspecified type J31.0 Active 49296988 Problem Anxiety disorder, unspecified type F41.9 Active 632914641 Problem Major depressive disorder, single episode, mild F32.0 Active 69171138 ALLERGIES No Information ENCOUNTERS Encounter Location Date Diagnosis [facility] [id number] [place] [address] 28953- 4285 Oct, [facility] [id number] [place] [address] 46206- 8998 Sep, ADHD (attention deficit hyperactivity disorder), combined type F90.2 [facility] [id number] [place] [address] 02572- 4095 Sep, [facility] [id number] [place] [address] 81730- 8257 Aug, ADHD (attention deficit hyperactivity disorder), combined type F90.2 ; Major depressive disorder, single episode, mild F32.0 and Anxiety disorder, unspecified type F41.9 [facility] [id number] [place] [address] 54894 -5214 Aug, Sore throat J02.9 ; Other specified bacterial agents as the cause of diseases classified elsewhere B96.89 and Acute tonsillitis due to other specified organisms J03.80 [facility] [id number] [address] 2432 Aug, ADHD (attention deficit hyperactivity disorder), combined type F90.2 [facility] [id number] [address] 6421 Jul, ADHD (attention deficit hyperactivity disorder), combined type F90.2 [facility] [id number] [place] [address] 49709- 6924 June, ADHD (attention deficit hyperactivity disorder), combined type F90.2 ; Major depressive disorder, single episode, mild F32.0 and Anxiety disorder, unspecified type F41.9 [facility] [address], [place] [address] 9808 June, [facility] [id number] [place] [address] 53078- 2170 June, ADHD (attention deficit hyperactivity disorder), combined type F90.2 [facility] [id number] [address] 8091 May, [facility] [address] [address] 8494 May, ADHD (attention deficit hyperactivity disorder), combined type F90.2 ; Major depressive disorder, single episode, mild F32.0 and Anxiety disorder, unspecified type F41.9 [facility] [address] [address] 6692 May, Anxiety disorder, unspecified type F41.9 [facility] [address] [address] 5501 Apr, [facility] [address] [address]- 4134 Apr, Anxiety disorder, unspecified type F41.9 [facility] [id number] [place] [address] 53275- 8913 Apr, Anxiety disorder, unspecified type F41.9 ; Major depressive disorder, single episode, mild F32.0 and ADHD (attention deficit hyperactivity disorder), combined type F90.2 [facility] [id number] [place] [address] 35444- 9814 Apr, [facility] [id number] [place] [address] 40045- 0038 Apr, ADHD (attention deficit hyperactivity disorder), combined type F90.2 ; Anxiety state F41.1 ; Depressive disorder, not elsewhere classified F32.9 ; Major depressive disorder, single episode, mild F32.0 and Anxiety disorder, unspecified type F41.9 [facility] [id number] [place] [address] 74357- 5707 Mar, ADHD (attention deficit hyperactivity disorder), combined type F90.2 [facility] [id number] [place] [address] 35011- 0984 20 Mar, 2017 Nausea R11.0 [facility] [id number] [place] [address] 89351- 5788 13 Mar, 2017 Screening for STD sexually transmitted disease Z11.3 ; Vaginal candidiasis B37.3 and Irritable bowel syndrome with diarrhea K58.0 [facility] [id number] [place] [address] 30626- 6492 Mar, [facility] [id number] [place] [address] 20465- 5023 Feb, ADHD (attention deficit hyperactivity disorder), combined type F90.2 [facility] [id number] [place] [address] 24742- 5081 Feb, Depressive disorder, not elsewhere classified F32.9 ; Anxiety state F41.1 and ADHD (attention deficit hyperactivity disorder), combined type F90.2 [facility] [id number] [place] [address] 65196- 7194 Feb, Depressive disorder, not elsewhere classified F32.9 ; Anxiety state F41.1 and ADHD (attention deficit hyperactivity disorder), combined type F90.2 [facility] [id number] [place] [address] 73910- 8775 Feb, ADHD (attention deficit hyperactivity disorder), combined type F90.2 [facility] [id number] [place] [address] 11303 -6420 Jan, Other viral agents as the cause of diseases classified elsewhere B97.89 and Acute upper respiratory infection, unspecified J06.9 [facility] [id number] [place] [address] 83212- 5281 Jan, ADHD (attention deficit hyperactivity disorder), combined type F90.2 ; Major depressive disorder, single episode, mild F32.0 and Anxiety disorder, unspecified type F41.9 [facility] [id number] [place] [address] 23530- 1172 Jan, [facility] [id number] [place] [address] 47012- 7994 Jan, ADHD (attention deficit hyperactivity disorder), combined type F90.2 ; Major depressive disorder, single episode, mild F32.0 and Anxiety disorder, unspecified type F41.9 [facility] [id number] [place] [address] 23687- 3253 Dec, Irritable bowel syndrome with diarrhea K58.0 and Lower abdominal pain R10.30 [facility] [id number] [place] [address] 21897- 8848 09 Dec, 2016 Hospital discharge follow-up Z09 ; Mesenteric adenitis I88.0 ; IBD (inflammatory bowel disease) K52.9 and Nausea R11.0 [facility] [id number] [place] [address] 16673- 9578 Nov, ADHD (attention deficit hyperactivity disorder), combined type F90.2 ; Major depressive disorder, single episode, mild F32.0 and Anxiety disorder, unspecified type F41.9 [facility] [address] [address]- 6252 Nov, Anxiety state F41.1 ; ADHD (attention deficit hyperactivity disorder), combined type F90.2 ; Major depressive disorder, single episode, mild F32.0 and Anxiety disorder, unspecified type F41.9 [facility] [address] [address]- 6785 Oct, Anxiety state F41.1 ; ADHD (attention deficit hyperactivity disorder), combined type F90.2 ; Major depressive disorder, single episode, mild F32.0 and Anxiety disorder, unspecified type F41.9 [facility] [id number] [place] [address] 11089- 8780 Oct, ADHD (attention deficit hyperactivity disorder), combined type F90.2 ; Major depressive disorder, single episode, mild F32.0 and Anxiety disorder, unspecified type F41.9 [facility] [id number] [place] [address] 37359- 6839 Oct, Major depressive disorder, single episode, mild F32.0 ; Anxiety state F41.1 ; ADHD (attention deficit hyperactivity disorder), combined type F90.2 and Depressive disorder, not elsewhere classified F32.9 [facility] [address] [address] 16 Oct, 2016 [facility] [id number] [place] [address] 40620 -1987 Oct, Cellulitis L03.90 and Plantar wart of right foot B07.0 [facility] [address] [place] [address] 52112- 3326 Aug, ADHD (attention deficit hyperactivity disorder), combined type F90.2 ; Major depressive disorder, single episode, mild F32.0 and Anxiety disorder, unspecified type F41.9 [facility] [address] [address]- 3682 Aug, [facility] [id number] [place] [address] 38510- 5299 Jul, ADHD (attention deficit hyperactivity disorder), combined type F90.2 [facility] [id number] [place] [address] 83192- 7564 Jul, Mesenteric adenitis I88.0 [facility] [id number] [place] [address] 89587- 8427 June, [facility] [id number] [place] [address] 51928 -0983 June, Lower abdominal pain R10.30 [facility] [id number] [place] [address] 19030- 7975 June, [facility] [id number] [place] [address] 24202- 4983 June, ADHD (attention deficit hyperactivity disorder), combined type F90.2 and Major depressive disorder, single episode, mild F32.0 [facility] [id number] [place] [address] 79064- 3651 May, [facility] [id number] [place] [address] 50573- 1735 May, ADHD (attention deficit hyperactivity disorder), combined type F90.2 and Major depressive disorder, single episode, mild F32.0 [facility] [address] [place] [address] 64241 -4174 Apr, Abdominal pain R10.9 and Gastroenteritis and colitis, viral A08.4 [facility] [id number] [place] [address] 45558- 9180 Apr, [facility] [id number] [place] [address] 40529 -5460 Mar, Acute urticaria L50.8 [facility] [id number] [place] [address] 17892- 9840 Mar, [facility] [id number] [place] [address] 95171- 0770 Feb, [facility] [address] 39074 -0119 Feb, Gastroenteritis K52.9 [facility] [address] 95600- 5075 Feb, Irritant contact dermatitis due to cosmetics L24.3 [facility] [address] 54270- 3125 Jan, [facility] [address] 20509- 8270 Jan, [facility] [address] 30448- 8190 Jan, ADHD (attention deficit hyperactivity disorder), combined type F90.2 and Major depressive disorder, single episode, mild F32.0 [facility] [address] 54605 -1025 Dec, Flexural eczema L20.82 [facility] [address] 25101- 1959 Dec, Encounter for test Z32.00 [facility] [address] 79693- 4859 Dec, [facility] [id number] [place] [address] 52743- 2873 Dec, [facility] [id number] [place] [address] 35372- 2499 Dec, [facility] [address] 63163 -5596 Nov, Sore throat J02.9 and Pharyngitis, unspecified etiology J02.9 [facility] [id number] [place] [address] 61732- 7703 Nov, [facility] [address] 34014- 3038 Nov, [facility] [address] [place] [address] 21090- 8047 Nov, Generalized abdominal pain R10.84 and Slow transit constipation K59.01 [facility] [address] [place] [address] [id number] Nov, Pharyngitis, unspecified etiology J02.9 and Rhinitis, unspecified type J31.0 [facility] [id number] [place] [address] 36591- 3727 Oct, Depressive disorder, not elsewhere classified F32.9 and ADHD (attention deficit hyperactivity disorder), combined type F90.2 [facility] [id number] [place] [address] 42418- 9855 Oct, [facility] [id number] [place] [address] 40683- 6529 Oct, [facility] [id number] [place] [address] 05055 -4925 Oct, Strep throat J02.0 [facility] [id number] [place] [address] 56745- 7063 Oct, [facility] [id number] [place] [address] 59618- 0750 Oct, Well woman exam with routine gynecological exam Z01.419 and Screening for STD sexually transmitted disease Z11.3 [facility] [id number] [place] [address] 80875- 1398 Sep, ADHD (attention deficit hyperactivity disorder), combined type F90.2 ; Anxiety state F41.1 and Depressive disorder, not elsewhere classified F32.9 [facility] [id number] [place] [address] 26611- 9393 Sep, ADHD (attention deficit hyperactivity disorder), combined type F90.2 and Depressive disorder, not elsewhere classified F32.9 [facility] [id number] [place] [address] 10224- 1545 Aug, [facility] [address] [address]- 6989 Aug, ADHD (attention deficit hyperactivity disorder), combined type F90.2 and Depressive disorder, not elsewhere classified F32.9 [facility] [address], [place] [address]- 0153 Aug, ADHD (attention deficit hyperactivity disorder), combined type F90.2 ; Anxiety state F41.1 and Depressive disorder, not elsewhere classified F32.9 [facility] [address] [address]- 4408 Aug, [facility] [id number] [place] [address] 86781- 9523 Aug, [facility] [id number] [place] [address] 58745- 3959 Jul, ADHD (attention deficit hyperactivity disorder), combined type F90.2 ; Depressive disorder, not elsewhere classified F32.9 and Anxiety state F41.1 [facility] [address], [place] [address]- 0482 Jul, [facility] [id number] [place] [address] 25561- 7222 Jul, ADHD (attention deficit hyperactivity disorder), combined type F90.2 ; Anxiety state F41.1 and Depressive disorder, not elsewhere classified F32.9 [facility] [address], [place] [address]- 2655 June, [facility] [address] [address] June, Constipation K59.00 [facility] [id number] [place] [address] 99300- 6059 May, Constipation K59.00 [facility] [address], [place] [address] -6351 20 Apr, 2016 Irritable bowel syndrome with diarrhea K58.0 [facility] [address] [id number] [place] [address]- 8652 15 May, 2015 [facility] [address] [id number] [place] [address]- 9300 15 May, 2015 [facility] [address] [facility] [id number] [place] [address]- 0967 14 May, 2014 [facility] [address] [id number] [place] [address]- 6840 13 May, 2014 [facility] [address] [id number] [place] [address]- 0395 Jan, [facility] [address] [facility] [id number] [place] [address]- 7805 Jan, [facility] [id number] [place] [address]- 0764 Jan, [facility] [address] [facility] [id number] [address]- 4826 Jan, [facility] [address] [facility] [id number] [place] [address]- 0887 Jan, [facility] [address] [facility] [id number], [place] [address]- 2956 Jan, [facility] [address] [facility] [id number], [place] [address]- 1999 Nov, [facility] [place] [facility] [address] [facility] [id number] [address]- 1939 Nov, [facility] [place] [facility] [address] [facility] [id number] [place] [address]- 9937 Oct, [facility] [place] [facility] [address] [facility] [id number] [address]- 5679 Oct, [facility] [place] [facility] [address] [facility] [id number] [address]- 7718 Sep, [facility] [place] [facility] [address] [facility] [id number] [place] [address]- 7909 Sep, [facility] [place] [facility] [address] [id number] [place] [address]- 1896 Aug, [facility] [place] [facility] [address] [id number] [place] [address]- 4267 Aug, [facility] [place] [facility] [address] [id number] [place] [address]- 9794 Aug, [facility] [place] [facility] [address] [id number] [place] [address]- 7269 Aug, [facility] [place] [facility] [address] [id number] [place] [address]- 8789 Aug, [facility] [place] [facility] [address] [id number] [place] [address]- 2088 Aug, [facility] [place] [facility] [address] [id number] [place] [address]- 3990 Aug, [facility] [place] [facility] [address] [id number] [place] [address]- 9928 Aug, [facility] [place] [facility] [address] [id number] [place] [address]- 3577 Jul, [facility] [place] [facility] [address] [id number] [place] [address]- 0022 Jul, [facility] [place] [facility] [address] [id number] [place] [address]- 0634 Jul, [facility] [place] [facility] [address] [id number] [place] [address]- 8419 Jul, [facility] [place] [facility] [address] [id number] [place] [address]- 3799 Jul, [facility] [place] [facility] [address] [id number] [place] [address]- 7648 Jul, [facility] [place] [facility] [address] [id number] [place] [address]- 7813 Jul, [facility] [place] [facility] [address] [id number] [place] [address]- 1255 Jul, [facility] [place] [facility] [address] [id number] [place] [address]- 3669 Jul, [facility] [place] [facility] [address] [id number] [place] [address]- 0207 June, [facility] [place] [facility] [address] [id number] [place] [address]- 6989 June, [facility] [place] [facility] [address] [id number] [place] [address]- 7038 May, [facility] [place] [facility] [address] [id number] [place] [address]- 9707 May, [facility] [place] [facility] [address] [id number] [place] [address]- 5424 May, [facility] [place] [facility] [address] [id number] [place] [address]- 9473 May, [facility] [place] [facility] [address] [id number] [place] [address]- 7847 May, [facility] [place] [facility] [address] [id number] [place] [address]- 0460 May, [facility] [place] [facility] [address] [id number] [place] [address]- 5836 May, [facility] [place] [facility] [address] [id number] [place] [address]- 9218 May, [facility] [place] [facility] [address] [id number] [place] [address]- 4661 May, [facility] [place] [facility] [address] [id number] [place] [address]- 2996 May, [facility] [place] [facility] [address] [id number] [place] [address]- 5294 May, [facility] [place] [facility] [address] [id number], [place] [address]- 9905 May, [facility] [place] [facility] [address] [id number] [place] [address]- 6584 Apr, [facility] [place] [facility] [address] [id number] [place] [address]- 2651 Apr, [facility] [place] [facility] [address] [facility] [id number] [place] [address]- 0144 Apr, [facility] [place] [facility] [address] [id number] [place] [address]- 9957 Apr, [facility] [place] [facility] [address] [id number] [place] [address]- 2713 Mar, [facility] [place] [facility] [address] [facility] [id number] [place] [address]- 1573 Mar, [facility] [place] [facility] [address] [facility] [id number] [place] [address]- 4977 Mar, [facility] [place] [facility] [address] [facility] [id number] [place] [address] Mar, [facility] [place] [facility] [address] [facility] [id number] [place] [address] Mar, [facility] [place] [facility] [address] [facility] [id number] [place] [address] Mar, [facility] [place] [facility] [address] [facility] [id number] [place] [address] Mar, [facility] [place] [facility] [address] [facility] [id number] [place] [address] Mar, [facility] [place] [facility] [address] [facility] [id number] [place] [address] Mar, [facility] [place] [facility] [address] [facility] [id number] [place] [address] Mar, [facility] [place] [facility] [address] [facility] [id number] [place] [address] 14 Mar, 2013 [facility] [place] [facility] [address] [id number] [place] [address] 14 Mar, 2013 [facility] [place] [facility] [address] [id number] [place] [address] Mar, [facility] [place] [facility] [address] [id number] [place] [address] Mar, [facility] [place] [facility] [address] [id number] [place] [address] Mar, [facility] [place] [facility] [address] [id number] [place] [address] Mar, [facility] [place] [facility] [address] [id number] [place] [address] Mar, [facility] [place] [facility] [address] [id number] [place] [address] Mar, [facility] [place] [facility] [address] [id number] [place] [address] Mar, [facility] [place] [facility] [address] [id number] [place] [address] Mar, [facility] [place] [facility] [address] [id number] [place] [address] Feb, [facility] [place] [facility] [address] [id number] [place] [address] Feb, [facility] [place] [facility] [address] [id number] [place] [address] Feb, [facility] [place] [facility] [address] [id number] [place] [address] Feb, [facility] [place] [facility] [address] [id number] [place] [address] Feb, [facility] [place] [facility] [address] [id number] [place] [address] Feb, [facility] [place] [facility] [address] [id number] [place] [address] Feb, [facility] [address] [id number] [place] [address] Feb, [facility] [address] [id number] [place] [address] Feb, [facility] [address] [id number] [place] [address] Feb, [facility] [facility] [address] [id number] [place] [address] Feb, [facility] [address] [id number] [place] [address] Feb, [facility] [address] [id number] [place] [address] Feb, [facility] [address] [id number] [place] [address] Feb, [facility] [address] [id number] [place] [address] Feb, [facility] [address] [id number] [place] [address] Feb, [facility] [address] [id number] [place] [address] Feb, [facility] [address] [id number] [place] [address] Feb, [facility] [address] [id number] [place] [address] Feb, [facility] [place] [facility] [address] [id number] [place] [address] Feb[facility] [place] [facility] [address] [id number] [place] [address] Feb, [facility] [address] [id number] [place] [address] Feb, [facility] [address] [id number] [place] [address] Feb, [facility] [place] [facility] [address] [id number] [place] [address] Jan, [facility] [place] [facility] [address] [id number] [place] [address] Jan, [facility] [place] [facility] [address] [id number] [place] [address] Jan, [facility] [address] [id number] [place] [address] Jan, [facility] [place] [facility] [address] [id number] [place] [address] Jan, [facility] [address] [id number] [place] [address] Jan, [facility] [address] [id number] [place] [address] Jan, [facility] [place] [facility] [address] [id number] [place] [address] Jan, [facility] [place] [facility] [address] [id number] [place] [address] Jan, [facility] [place] [facility] [address] [id number] [place] [address] Jan, [facility] [place] [facility] [address] [id number], [place] [address] Jan, [facility] [place] [facility] [address] [id number] [place] [address] Jan, [facility] [place] [facility] [address] [id number] [place] [address] Jan, [facility] [place] [facility] [address] [id number], [place] [address] Dec, [facility] [place] [facility] [address] [id number], [place] [address] Dec, [facility] [place] [facility] [address] [id number] [place] [address] Dec, [facility] [place] [facility] [address] [id number] [place] [address] Dec, [facility] [place] [facility] [address] [id number] [place] [address] Dec, [facility] [place] [facility] [address] [id number] [place] [address] Dec, [facility] [place] [facility] [address] [id number] [place] [address] Nov, [facility] [place] [facility] [address] [id number] [place] [address] Nov, [facility] [place] [facility] [address] [id number] [place] [address] Nov, [facility] [place] [facility] [address] [id number] [place] [address] Nov, [facility] [place] [facility] [address] [facility] [id number] [place] [address] Nov, [facility] [place] [facility] [address] [facility] [id number] [place] [address] Nov, [facility] [place] [facility] [address] [id number], [place] [address] 28 Oct, 2012 [facility] [place] [facility] [address] [id number], [place] [address] 27 Oct, 2012 [facility] [place] [facility] [address] [id number] [place] [address] 26 Oct, 2012 [facility] [place] [facility] [address] [facility] [id number] [place] [address] 25 Oct, 2012 [facility] [place] [facility] [address] [facility] [id number] [place] [address] 25 Oct, 2012 [facility] [place] [facility] [address] [facility] [id number] [place] [address] 18 Oct, 2012 [facility] [address] [facility] [id number], [place] [address] 13 Oct, 2012 IMMUNIZATIONS No Known Immunizations SOCIAL HISTORY Never Assessed REASON FOR VISIT ritalin 08/30/2017 PLAN OF CARE VITAL SIGNS MEDICATIONS Medication [...]
--- OUTSIDE RECORDS SUMMARY | 2017-12-03 14:05 | XMS REPORT ---
Author Author HARIKA RODRIGUEZ [facility] Address [address] [place] [address] Care Team Providers Care Data Communications Technician Name Role Phone JENNIFERHARIKA Unavailable PROBLEMS Type Condition ICD9-CM Code [id number] Code Onset Dates Condition Status SNOMED Code Problem Anxiety state F41.1 Active 779885507 Problem Depressive disorder, not elsewhere classified F32.9 Active 95161312 Problem ADHD (attention deficit hyperactivity disorder), combined type F90.2 Active 34781842 Problem Irritable bowel syndrome with diarrhea K58.0 Active 574873768 Problem Plantar wart of right foot B07.0 Active [id number] Problem Slow transit constipation K59.01 Active 27164478 Problem Rhinitis, unspecified type J31.0 Active 69819194 Problem Anxiety disorder, unspecified type F41.9 Active 917451670 Problem Major depressive disorder, single episode, mild F32.0 Active 39493569 ALLERGIES No Known Allergies ENCOUNTERS Encounter Location Date Diagnosis [facility] [id number] [place] [address] 89666- 9302 Sep, [facility] [id number] [place] [address] 28918- 1680 Sep, [facility] [id number] [place] [address] 81995- 5335 Sep, [facility] [id number] [place] [address] 69178- 2284 Aug, ADHD (attention deficit hyperactivity disorder), combined type F90.2 ; Major depressive disorder, single episode, mild F32.0 and Anxiety disorder, unspecified type F41.9 [facility] [address] [address] Aug, Sore throat J02.9 ; Other specified bacterial agents as the cause of diseases classified elsewhere B96.89 and Acute tonsillitis due to other specified organisms J03.80 [facility] [address], [place] [address] 6766 Aug, ADHD (attention deficit hyperactivity disorder), combined type F90.2 [facility] [address] [address] 5606 Jul, ADHD (attention deficit hyperactivity disorder), combined type F90.2 [facility] [id number] [address]59 June, ADHD (attention deficit hyperactivity disorder), combined type F90.2 ; Major depressive disorder, single episode, mild F32.0 and Anxiety disorder, unspecified type F41.9 [facility] [address], [place] [address] 2[address] June, [facility] [address] [address] 2406 June, ADHD (attention deficit hyperactivity disorder), combined type F90.2 [facility] [address] [address] 4830 May, [facility] [address] [address] 0[address] May, ADHD (attention deficit hyperactivity disorder), combined type F90.2 ; Major depressive disorder, single episode, mild F32.0 and Anxiety disorder, unspecified type F41.9 [facility] [id number] [address] 7782 May, Anxiety disorder, unspecified type F41.9 [facility] [id number] [address] 8001 Apr, [facility] [id number] [address] 4662 Apr, Anxiety disorder, unspecified type F41.9 [facility] [id number] [address] 4236 Apr, Anxiety disorder, unspecified type F41.9 ; Major depressive disorder, single episode, mild F32.0 and ADHD (attention deficit hyperactivity disorder), combined type F90.2 [facility] [address], [place] [address] 2860 Apr, [facility] [id number] [place] [address] 24535- 4944 Apr, ADHD (attention deficit hyperactivity disorder), combined type F90.2 ; Anxiety state F41.1 ; Depressive disorder, not elsewhere classified F32.9 ; Major depressive disorder, single episode, mild F32.0 and Anxiety disorder, unspecified type F41.9 [facility] [id number] [place] [address] 45760- 8642 Mar, ADHD (attention deficit hyperactivity disorder), combined type F90.2 [facility] [id number] [place] [address] 97926- 3456 Mar, Nausea R11.0 [facility] [id number] [place] [address] 68998- 7154 13 Mar, 2017 Screening for STD sexually transmitted disease Z11.3 ; Vaginal candidiasis B37.3 and Irritable bowel syndrome with diarrhea K58.0 [facility] [address], [place] [address]- 2489 Mar, [facility] [id number] [place] [address] 34496- 5456 Feb, ADHD (attention deficit hyperactivity disorder), combined type F90.2 [facility] [address], [place] [address]- 6869 Feb, Depressive disorder, not elsewhere classified F32.9 ; Anxiety state F41.1 and ADHD (attention deficit hyperactivity disorder), combined type F90.2 [facility] [address], [place] [address]- 1461 Feb, Depressive disorder, not elsewhere classified F32.9 ; Anxiety state F41.1 and ADHD (attention deficit hyperactivity disorder), combined type F90.2 [facility] [address] [place] [address] 77956- 1219 Feb, ADHD (attention deficit hyperactivity disorder), combined type F90.2 [facility] [id number] [place] [address] 32340 -1319 Jan, Other viral agents as the cause of diseases classified elsewhere B97.89 and Acute upper respiratory infection, unspecified J06.9 [facility] [id number] [place] [address] 29785- 4911 Jan, ADHD (attention deficit hyperactivity disorder), combined type F90.2 ; Major depressive disorder, single episode, mild F32.0 and Anxiety disorder, unspecified type F41.9 [facility] [facility] [id number] [place] [address] 05390- 5322 Jan, [facility] [id number] [place] [address] 01070- 3703 Jan, ADHD (attention deficit hyperactivity disorder), combined type F90.2 ; Major depressive disorder, single episode, mild F32.0 and Anxiety disorder, unspecified type F41.9 [facility] [address] [place] [address] 88922- 9690 Dec, Irritable bowel syndrome with diarrhea K58.0 and Lower abdominal pain R10.30 [facility] [id number] [place] [address] 32894- 6490 09 Dec, 2016 Hospital discharge follow-up Z09 ; Mesenteric adenitis I88.0 ; IBD (inflammatory bowel disease) K52.9 and Nausea R11.0 [facility] [facility] [id number] [place] [address] 42986- 0295 Nov, ADHD (attention deficit hyperactivity disorder), combined type F90.2 ; Major depressive disorder, single episode, mild F32.0 and Anxiety disorder, unspecified type F41.9 [facility] [facility] [address], [place] [address]- 5745 Nov, Anxiety state F41.1 ; ADHD (attention deficit hyperactivity disorder), combined type F90.2 ; Major depressive disorder, single episode, mild F32.0 and Anxiety disorder, unspecified type F41.9 [place] [facility] [id number] [place] [address] 25331- 7684 Oct, Anxiety state F41.1 ; ADHD (attention deficit hyperactivity disorder), combined type F90.2 ; Major depressive disorder, single episode, mild F32.0 and Anxiety disorder, unspecified type F41.9 [facility] [facility] [id number] [place] [address] 44268- 7469 Oct, ADHD (attention deficit hyperactivity disorder), combined type F90.2 ; Major depressive disorder, single episode, mild F32.0 and Anxiety disorder, unspecified type F41.9 [facility] [id number] [place] [address] 71845- 5022 Oct, Major depressive disorder, single episode, mild F32.0 ; Anxiety state F41.1 ; ADHD (attention deficit hyperactivity disorder), combined type F90.2 and Depressive disorder, not elsewhere classified F32.9 [facility] [id number] [place] [address] 46613 -5984 Oct, [facility] [id number] [place] [address] 04345 -3038 Oct, Cellulitis L03.90 and Plantar wart of right foot B07.0 [facility] [address] [place] [address] 76996- 5423 Aug, ADHD (attention deficit hyperactivity disorder), combined type F90.2 ; Major depressive disorder, single episode, mild F32.0 and Anxiety disorder, unspecified type F41.9 [place] [facility] [address] [place] [address] 56196- 4821 Aug, [place] [facility] [id number] [place] [address] 88622- 3097 Jul, ADHD (attention deficit hyperactivity disorder), combined type F90.2 [facility] [id number] [place] [address] 69628- 2210 Jul, Mesenteric adenitis I88.0 [facility] [id number] [place] [address] 09007- 0950 June, [facility] [address] 34598 -7217 June, Lower abdominal pain R10.30 [facility] [id number] [place] [address] 55855- 4350 June, [place] [facility] [id number] [place] [address] 00998- 5892 June, ADHD (attention deficit hyperactivity disorder), combined type F90.2 and Major depressive disorder, single episode, mild F32.0 [facility] [id number] [place] [address] 60948- 3544 May, [facility] [id number] [place] [address] 54249- 6435 May, ADHD (attention deficit hyperactivity disorder), combined type F90.2 and Major depressive disorder, single episode, mild F32.0 [facility] [id number] [place] [address] 73460 -6659 Apr, Abdominal pain R10.9 and Gastroenteritis and colitis, viral A08.4 [facility] [id number] [place] [address] 13447- 4140 Apr, [facility] [id number] [place] [address] 64678 -9316 Mar, Acute urticaria L50.8 [facility] [id number] [place] [address] 36669- 8296 Mar, [facility] [id number] [place] [address] 02489- 7073 Feb, [facility] [id number] [place] [address] 53144 -5787 Feb, Gastroenteritis K52.9 [place] [address] 89005- 8162 Feb, Irritant contact dermatitis due to cosmetics L24.3 [place] [facility] [address] 54279- 4242 Jan, [facility] [address] 50423- 1328 Jan, [place] [address] 88487- 5910 Jan, ADHD (attention deficit hyperactivity disorder), combined type F90.2 and Major depressive disorder, single episode, mild F32.0 [facility] [address] 81728 -6494 Dec, Flexural eczema L20.82 [place] [address] 77796- 9513 Dec, Encounter for test Z32.00 [place] [address] 32464- 3324 Dec, [place] [facility] [id number] [place] [address] 46306- 3327 Dec, [place] [address] 40551- 3728 Dec, [facility] [id number] [place] [address] 39110 -6393 Nov, Sore throat J02.9 and Pharyngitis, unspecified etiology J02.9 [facility] [id number] [place] [address] 53029- 2170 Nov, [place] [address] 70396- 3556 Nov, [facility] [id number] [place] [address] 54533- 9243 Nov, Generalized abdominal pain R10.84 and Slow transit constipation K59.01 [facility] [id number] [place] [address] [id number] Nov, Pharyngitis, unspecified etiology J02.9 and Rhinitis, unspecified type J31.0 [facility] [address] 29065- 0281 Oct, Depressive disorder, not elsewhere classified F32.9 and ADHD (attention deficit hyperactivity disorder), combined type F90.2 [facility] [address] 07979- 7475 Oct, [facility] [address] 36407- 3606 Oct, [facility] [id number] [place] [address] 25227 -9867 Oct, Strep throat J02.0 [facility] [id number] [place] [address] 92987- 7065 Oct, [facility] [id number] [place] [address] 96136- 5180 Oct, Well woman exam with routine gynecological exam Z01.419 and Screening for STD sexually transmitted disease Z11.3 [facility] [id number] [place] [address] 00472- 8257 Sep, ADHD (attention deficit hyperactivity disorder), combined type F90.2 ; Anxiety state F41.1 and Depressive disorder, not elsewhere classified F32.9 [facility] [id number] [place] [address] 69506- 1641 Sep, ADHD (attention deficit hyperactivity disorder), combined type F90.2 and Depressive disorder, not elsewhere classified F32.9 [facility] [id number] [place] [address] 49269- 5424 Aug, [facility] [address], [place] [address]- 5512 Aug, ADHD (attention deficit hyperactivity disorder), combined type F90.2 and Depressive disorder, not elsewhere classified F32.9 [facility] [address], [place] [address]- 0203 Aug, ADHD (attention deficit hyperactivity disorder), combined type F90.2 ; Anxiety state F41.1 and Depressive disorder, not elsewhere classified F32.9 [facility] [address], [place] [address]- 3887 Aug, [facility] [id number] [place] [address] 23912- 6225 Aug, [facility] [id number] [place] [address] 92688- 6267 Jul, ADHD (attention deficit hyperactivity disorder), combined type F90.2 ; Depressive disorder, not elsewhere classified F32.9 and Anxiety state F41.1 [facility] [address] [place] [address] 62503- 7959 Jul, [facility] [id number] [place] [address] 01535- 7072 Jul, ADHD (attention deficit hyperactivity disorder), combined type F90.2 ; Anxiety state F41.1 and Depressive disorder, not elsewhere classified F32.9 [facility] [address], [place] [address]- 8630 June, [facility] [address] [address] June, Constipation K59.00 [facility] [id number] [place] [address] 66393- 1111 May, Constipation K59.00 [facility] [address], [place] [address] -4032 May, Irritable bowel syndrome with diarrhea K58.0 [facility] [address] [facility] [id number] [place] [address]- 8152 15 May, 2015 [facility] [place] [facility] [address] [id number] [place] [address]- 8170 15 May, 2015 [facility] [place] [facility] [address] [id number] [place] [address]- 6887 14 May, 2014 [facility] [place] [facility] [address] [id number] [place] [address]- 7743 13 May, 2014 [facility] [place] [facility] [address] [id number] [place] [address]- 9792 Jan, [facility] [place] [facility] [address] [id number] [place] [address]- 6795 Jan, [facility] [place] [facility] [address] [id number] [place] [address]- 9073 Jan, [facility] [place] [facility] [address] [id number] [place] [address]- 7143 Jan, [facility] [place] [facility] [address] [id number] [place] [address]- 7501 Jan, [facility] [place] [facility] [address] [id number] [place] [address]- 2987 Jan, [facility] [place] [facility] [address] [id number] [place] [address]- 2901 Nov, [facility] [place] [facility] [address] [id number] [place] [address]- 3645 Nov, [facility] [place] [facility] [address] [id number] [place] [address]- 3435 Oct, [facility] [place] [facility] [address] [id number] [place] [address]- 6204 Oct, [facility] [place] [facility] [address] [id number] [place] [address]- 3945 Sep, [facility] [place] [facility] [address] [id number] [place] [address]- 5404 Sep, [facility] [place] [facility] [address] [id number] [place] [address]- 6925 Aug, [facility] [place] [facility] [address] [id number] [place] [address]- 2111 Aug, [facility] [place] [facility] [address] [id number] [place] [address]- 9864 Aug, [facility] [place] [facility] [address] [id number] [place] [address]- 9126 Aug, [facility] [place] [facility] [address] [id number] [place] [address]- 4464 Aug, [facility] [place] [facility] [address] [id number] [place] [address]- 7825 Aug, [facility] [place] [facility] [address] [id number] [place] [address]- 8799 Aug, [facility] [place] [facility] [address] [id number] [place] [address]- 6289 Aug, [facility] [place] [facility] [address] [id number] [place] [address]- 7068 Jul, [facility] [place] [facility] [address] [id number] [place] [address]- 6959 Jul, [facility] [place] [facility] [address] [id number] [place] [address]- 9286 Jul, [facility] [place] [facility] [address] [id number] [address]- 6606 Jul, [facility] [place] [facility] [address] [id number] [place] [address]- 1632 Jul, [facility] [place] [facility] [address] [id number] [place] [address]- 2452 Jul, [facility] [place] [facility] [address] [id number] [place] [address]- 4623 Jul, [facility] [place] [facility] [address] [id number] [place] [address]- 8362 Jul, [facility] [place] [facility] [address] [id number] [place] [address]- 1079 Jul, [facility] [place] [facility] [address] [id number] [place] [address]- 4800 June, [facility] [place] [facility] [address] [id number] [place] [address]- 6804 June, [facility] [place] [facility] [address] [id number] [place] [address]- 1161 May, [facility] [place] [facility] [address] [id number] [place] [address]- 2232 May, [facility] [place] [facility] [address] [id number] [place] [address]- 1478 May, [facility] [place] [facility] [address] [id number] [place] [address]- 3331 May, [facility] [place] [facility] [address] [id number] [place] [address]- 9286 May, [facility] [place] [facility] [address] [id number] [place] [address]- 3823 May, [facility] [place] [facility] [address] [id number] [place] [address]- 7634 May, [facility] [place] [facility] [address] [id number] [place] [address]- 3290 May, [facility] [place] [facility] [address] [id number] [place] [address]- 5853 May, [facility] [place] [facility] [address] [id number] [place] [address]- 6986 May, [facility] [place] [facility] [address] [id number] [place] [address]- 5916 May, [facility] [place] [facility] [address] [id number] [place] [address]- 6481 May, [facility] [place] [facility] [address] [id number] [place] [address]- 6348 Apr, [facility] [place] [facility] [address] [id number] [place] [address]- 3218 Apr, [facility] [place] [facility] [address] [id number] [place] [address]- 4376 Apr, [facility] [place] [facility] [address] [id number] [place] [address]- 5975 Apr, [facility] [place] [facility] [address] [id number] [place] [address]- 8232 Mar, [facility] [place] [facility] [address] [id number] [place] [address]- 9710 Mar, [facility] [place] [facility] [address] [id number] [place] [address]- 6181 Mar, [facility] [place] [facility] [address] [id number] [place] [address]- 2384 Mar, [facility] [place] [facility] [address] [id number] [place] [address]- 5106 Mar, [facility] [place] [facility] [address] [id number] [place] [address]- 8453 Mar, [facility] [place] [facility] [address] [id number] [place] [address]- 5301 Mar, [facility] [place] [facility] [address] [id number] [place] [address]- 7960 Mar, [facility] [place] [facility] [address] [id number] [place] [address]- 9509 Mar, [facility] [place] [facility] [address] [id number] [place] [address]- 8086 Mar, [facility] [place] [facility] [address] [id number] [place] [address]- 3042 14 Mar, 2013 [facility] [place] [facility] [address] [id number] [place] [address] 14 Mar, 2013 [facility] [place] [facility] [address] [id number] [place] [address] Mar, [facility] [place] [facility] [address] [id number] [place] [address] Mar, [facility] [place] [facility] [address] [id number] [place] [address] Mar, [facility] [place] [facility] [address] [id number] [place] [address] Mar, [facility] [place] [facility] [address] [id number] [place] [address] Mar, [facility] [place] [facility] [address] [facility] [id number] [place] [address] Mar, [facility] [place] [facility] [address] [id number] [place] [address] Mar, [facility] [place] [facility] [address] [id number] [place] [address] Mar, [facility] [place] [facility] [address] [facility] [id number] [place] [address] Feb, [facility] [place] [facility] [address] [facility] [id number] [place] [address] Feb, [facility] [place] [facility] [address] [id number] [place] [address] Feb, [facility] [place] [facility] [address] [id number] [place] [address] Feb, [facility] [place] [facility] [address] [id number] [place] [address] Feb, [facility] [place] [facility] [address] [id number] [place] [address] Feb, [facility] [place] [facility] [address] [id number] [place] [address] Feb, [facility] [place] [facility] [address] [id number] [place] [address] Feb, [facility] [place] [facility] [address] [id number] [place] [address]- [address] Feb, [facility] [place] [facility] [address] [id number] [place] [address] Feb, [facility] [place] [facility] [address] [id number] [place] [address] Feb, [facility] [place] [facility] [address] [id number] [place] [address] Feb, [facility] [place] [facility] [address] [id number] [place] [address] Feb, [facility] [place] [facility] [address] [id number] [place] [address] Feb, [facility] [place] [facility] [address] [id number] [place] [address] Feb, [facility] [place] [facility] [address] [id number] [place] [address] Feb, [facility] [place] [facility] [address] [id number] [place] [address] Feb, [facility] [place] [facility] [address] [id number], [place] [address] Feb, [facility] [place] [facility] [address] [id number], [place] [address] Feb, [facility] [place] [facility] [address] [id number] [place] [address] Feb, [facility] [place] [facility] [address] [id number] [place] [address] Feb, [facility] [place] [facility] [address] [id number] [place] [address] Feb, [facility] [place] [facility] [address] [id number] [place] [address] Feb, [facility] [address] [id number] [place] [address] Jan, [facility] [address] [id number] [place] [address] 24 Jan, 2013 [facility] [address] [id number] [place] [address] Jan, [facility] [address] [id number] [place] [address] Jan, [facility] [address] [id number] [place] [address] Jan, [facility] [address] [id number] [place] [address] Jan, [facility] [address] [id number] [place] [address] Jan, [facility] [address] [id number] [place] [address] Jan, [facility] [address] [id number] [place] [address] Jan, [facility] [address] [id number] [place] [address] Jan, [facility] [address] [id number] [place] [address] Jan, [facility] [address] [id number] [place] [address] Jan, [facility] [address] [id number] [place] [address] Jan, [facility] [address] [id number] [place] [address] Dec, [facility] [address] [id number] [place] [address] Dec, [facility] [address] [id number] [place] [address] Dec, [facility] [place] [facility] [address] [id number] [place] [address] Dec, [facility] [place] [facility] [address] [id number] [place] [address] Dec, [facility] [place] [facility] [address] [id number] [place] [address] Dec, [facility] [place] [facility] [address] [id number] [place] [address] Nov, [facility] [place] [facility] [address] [id number] [place] [address] Nov, [facility] [place] [facility] [address] [id number] [place] [address] Nov, [facility] [place] [facility] [address] [id number] [place] [address] Nov, [facility] [place] [facility] [address] [id number] [place] [address] Nov, [facility] [place] [facility] [address] [id number], [place] [address] Nov, [facility] [place] [facility] [address] [id number], [place] [address] 28 Oct, 2012 [facility] [place] [facility] [address] [id number], [place] [address] 27 Oct, 2012 [facility] [place] [facility] [address] [id number], [place] [address] 26 Oct, 2012 [facility] [place] [facility] [address] [id number], [place] [address] 25 Oct, 2012 [facility] [place] [facility] [address] [id number], [place] [address] 25 Oct, 2012 [facility] [place] [facility] [address] [id number], [place] [address] Oct, [facility] [address] [facility] [id number] [place] [address] Oct, IMMUNIZATIONS No Known Immunizations SOCIAL HISTORY Never Assessed REASON FOR VISIT f/u PLAN OF CARE Activity Details Follow Up 4 Weeks Reason: f/u VITAL SIGNS Height 59 in 2017-07-11 Weight 139.2 lbs 2017-07-11 Heart Rate 84 bpm 2017-07-11 Respiratory Rate 20 2017-07-11 BMI 28.11 kg/m2 2017-07-11 Blood pressure systolic 120 mmHg 2017-07-11 Blood pressure diastolic 68 mmHg 2017-07-11 MEDICATIONS Medication Instructions Dosage Frequency Start Date End Date Duration Status Effexor XR 75 MG Orally Once a day 1 capsule 24h May, Active Venlafaxine HCl ER 150 mg Orally Once a day 1 capsule with food 24h Active HydrOXYzine HCl 25 MG Orally three times a day as needed for anxiety 1 tablet as needed Jan, Active Protonix 40 mg Orally Once a day 1 tablet 24h 90 days Active Lamictal 25 MG Orally Once a day for two weeks, then 2 tablets daily 1 tablet June, 30 day(s) Active Ondansetron 4 MG Orally every 8 hrs prn 1 tablet on the tongue and allow to dissolve 14 Active Diflucan 150 MG Orally Once a day 1 tablet 24h Mar, 1 dose Not -Taking Promethazine HCl 25 MG Orally every 4 hrs 1 tablet as needed 4h Not-Taking Ritalin LA 30 MG Orally Once a day 1 capsule in the morning 24h June, Active RESULTS No Results PROCEDURES Procedure Date Ordered Result Body Site LAB NOT BILLED BY [facility] July 11, 2017 INSTRUCTIONS MEDICATIONS ADMINISTERED No Known Medications [...]
--- OUTSIDE RECORDS SUMMARY | 2017-12-03 14:05 | XMS REPORT ---
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 Role Phone HARIKA RODRIGUEZ Unavailable PROBLEMS Type Condition ICD9-CM Code WCA41-LV Code Onset Dates Condition Status SNOMED Code Problem Anxiety state F41.1 Active 333711109 Problem Depressive disorder, not elsewhere classified F32.9 Active 25700316 Problem ADHD (attention deficit hyperactivity disorder), combined type F90.2 Active 97767695 Problem Irritable bowel syndrome with diarrhea K58.0 Active 922975585 Problem Plantar wart of right foot B07.0 Active [id number] Problem Slow transit constipation K59.01 Active 69072408 Problem Rhinitis, unspecified type J31.0 Active 20057698 Problem Anxiety disorder, unspecified type F41.9 Active 247385493 Problem Major depressive disorder, single episode, mild F32.0 Active 23176764 ALLERGIES No Information ENCOUNTERS Encounter Location Date Diagnosis [facility] [id number] [place] [address] 42371- 9680 Sep, [facility] [id number] [address] Aug, ADHD (attention deficit hyperactivity disorder), combined type F90.2 ; Major depressive disorder, single episode, mild F32.0 and Anxiety disorder, unspecified type F41.9 [facility] [id number] [place] [address] 84894 -4236 Aug, Sore throat J02.9 ; Other specified bacterial agents as the cause of diseases classified elsewhere B96.89 and Acute tonsillitis due to other specified organisms J03.80 [facility] [id number] [address] 0159 Aug, ADHD (attention deficit hyperactivity disorder), combined type F90.2 [facility] [id number] [place] [address] 5877 Jul, ADHD (attention deficit hyperactivity disorder), combined type F90.2 [facility] [address] [place] [address] June, ADHD (attention deficit hyperactivity disorder), combined type F90.2 ; Major depressive disorder, single episode, mild F32.0 and Anxiety disorder, unspecified type F41.9 [facility] [id number] [place] [address] 2693 June, [facility] [id number] [place] [address] 7903 June, ADHD (attention deficit hyperactivity disorder), combined type F90.2 [facility] [address] [place] [address] 57[address] May, [facility] [address] [address] May, ADHD (attention deficit hyperactivity disorder), combined type F90.2 ; Major depressive disorder, single episode, mild F32.0 and Anxiety disorder, unspecified type F41.9 [facility] [address], [place] [address] May, Anxiety disorder, unspecified type F41.9 [facility] [address], [place] [address] 6727 Apr, [facility] [id number] [address] 3624 Apr, Anxiety disorder, unspecified type F41.9 [facility] [id number] [place] [address] 2510 Apr, Anxiety disorder, unspecified type F41.9 ; Major depressive disorder, single episode, mild F32.0 and ADHD (attention deficit hyperactivity disorder), combined type F90.2 [facility] [address] [address] 7[address] Apr, [facility] [id number] [place] [address] 63348- 6116 Apr, ADHD (attention deficit hyperactivity disorder), combined type F90.2 ; Anxiety state F41.1 ; Depressive disorder, not elsewhere classified F32.9 ; Major depressive disorder, single episode, mild F32.0 and Anxiety disorder, unspecified type F41.9 [facility] [id number] [place] [address] 49551- 6987 Mar, ADHD (attention deficit hyperactivity disorder), combined type F90.2 [place] [id number] [place] [address] 75260- 4821 20 Mar, 2017 Nausea R11.0 [place] [id number] [place] [address] 09674- 0016 13 Mar, 2017 Screening for STD sexually transmitted disease Z11.3 ; Vaginal candidiasis B37.3 and Irritable bowel syndrome with diarrhea K58.0 [place] [id number] [place] [address] 43749- 3227 Mar, [place] [id number] [place] [address] 44883- 8969 Feb, ADHD (attention deficit hyperactivity disorder), combined type F90.2 [place] [address] [place] [address] 31937- 9127 Feb, Depressive disorder, not elsewhere classified F32.9 ; Anxiety state F41.1 and ADHD (attention deficit hyperactivity disorder), combined type F90.2 [place] [address] [place] [address] 04613- 0570 Feb, Depressive disorder, not elsewhere classified F32.9 ; Anxiety state F41.1 and ADHD (attention deficit hyperactivity disorder), combined type F90.2 [place] [address] [place] [address] 79848- 5760 Feb, ADHD (attention deficit hyperactivity disorder), combined type F90.2 [facility] [address], [place] [address] Jan, Other viral agents as the cause of diseases classified elsewhere B97.89 and Acute upper respiratory infection, unspecified J06.9 [facility] [address] [place] [address] 54979- 6922 Jan, ADHD (attention deficit hyperactivity disorder), combined type F90.2 ; Major depressive disorder, single episode, mild F32.0 and Anxiety disorder, unspecified type F41.9 [place] [address] [place] [address] 19980- 6227 Jan, [facility] [id number] [place] [address] 45410- 2218 Jan, ADHD (attention deficit hyperactivity disorder), combined type F90.2 ; Major depressive disorder, single episode, mild F32.0 and Anxiety disorder, unspecified type F41.9 [place] [address] [place] [address] 80053- 3717 Dec, Irritable bowel syndrome with diarrhea K58.0 and Lower abdominal pain R10.30 [place] [id number] [place] [address] 66359- 0849 Dec, Hospital discharge follow-up Z09 ; Mesenteric adenitis I88.0 ; IBD (inflammatory bowel disease) K52.9 and Nausea R11.0 [place] [address] [place] [address] 26990- 1639 Nov, ADHD (attention deficit hyperactivity disorder), combined type F90.2 ; Major depressive disorder, single episode, mild F32.0 and Anxiety disorder, unspecified type F41.9 [place] [address] [place] [address] 14684- 1943 Nov, Anxiety state F41.1 ; ADHD (attention deficit hyperactivity disorder), combined type F90.2 ; Major depressive disorder, single episode, mild F32.0 and Anxiety disorder, unspecified type F41.9 [facility] [address], [place] [address]- 5175 Oct, Anxiety state F41.1 ; ADHD (attention deficit hyperactivity disorder), combined type F90.2 ; Major depressive disorder, single episode, mild F32.0 and Anxiety disorder, unspecified type F41.9 [facility] [id number] [place] [address] 00301- 2668 Oct, ADHD (attention deficit hyperactivity disorder), combined type F90.2 ; Major depressive disorder, single episode, mild F32.0 and Anxiety disorder, unspecified type F41.9 [place] [id number] [place] [address] 44084- 6785 Oct, Major depressive disorder, single episode, mild F32.0 ; Anxiety state F41.1 ; ADHD (attention deficit hyperactivity disorder), combined type F90.2 and Depressive disorder, not elsewhere classified F32.9 [facility] [id number] [place] [address] 24473 -7501 16 Oct, 2016 [facility] [id number] [place] [address] 76109 -1854 Oct, Cellulitis L03.90 and Plantar wart of right foot B07.0 [place] [id number] [place] [address] 59962- 0686 Aug, ADHD (attention deficit hyperactivity disorder), combined type F90.2 ; Major depressive disorder, single episode, mild F32.0 and Anxiety disorder, unspecified type F41.9 [facility] [address] [place] [address] 43727- 8617 Aug, [place] [id number] [place] [address] 16965- 1706 Jul, ADHD (attention deficit hyperactivity disorder), combined type F90.2 [facility] [id number] [place] [address] 99417- 1129 Jul, Mesenteric adenitis I88.0 [place] [address], [place] [address]- 7687 June, [facility] [id number] [place] [address] 81537 -9110 June, Lower abdominal pain R10.30 [facility] [id number] [place] [address] 32004- 9716 June, [facility] [address] 66350- 4741 June, ADHD (attention deficit hyperactivity disorder), combined type F90.2 and Major depressive disorder, single episode, mild F32.0 [place] [id number] [place] [address] 23944- 7716 May, [place] [id number] [place] [address] 73281- 0656 May, ADHD (attention deficit hyperactivity disorder), combined type F90.2 and Major depressive disorder, single episode, mild F32.0 [facility] [id number] [place] [address] 36394 -1181 Apr, Abdominal pain R10.9 and Gastroenteritis and colitis, viral A08.4 [place] [id number] [place] [address] 72831- 6980 Apr, [facility] [id number] [place] [address] 76146 -0595 Mar, Acute urticaria L50.8 [facility] [id number] [place] [address] 74341- 2620 Mar, [facility] [id number] [place] [address] 56191- 7888 Feb, [facility] [id number] [place] [address] 70031 -6382 Feb, Gastroenteritis K52.9 [facility] [id number] [place] [address] 83011- 4429 Feb, Irritant contact dermatitis due to cosmetics L24.3 [facility] [id number] [place] [address] 51206- 6625 Jan, [facility] [address] 98519- 6724 Jan, [facility] [address] 89771- 3336 Jan, ADHD (attention deficit hyperactivity disorder), combined type F90.2 and Major depressive disorder, single episode, mild F32.0 [facility] [address] 85321 -9466 Dec, Flexural eczema L20.82 [facility] [address] 06075- 5834 Dec, Encounter for test Z32.00 [place] [address] 93534- 1359 Dec, [facility] [address] 72607- 5186 Dec, [facility] [address] 34109- 7334 Dec, [facility] [address] 73115 -6491 Nov, Sore throat J02.9 and Pharyngitis, unspecified etiology J02.9 [facility] [id number] [place] [address] 90067- 9068 Nov, [place] [address] 08812- 3433 Nov, [facility] [id number] [place] [address] 49551- 4634 Nov, Generalized abdominal pain R10.84 and Slow transit constipation K59.01 [facility] [address] [id number] Nov, Pharyngitis, unspecified etiology J02.9 and Rhinitis, unspecified type J31.0 [facility] [id number] [place] [address] 55913- 8027 Oct, Depressive disorder, not elsewhere classified F32.9 and ADHD (attention deficit hyperactivity disorder), combined type F90.2 [facility] [id number] [place] [address] 72752- 0505 Oct, [facility] [id number] [place] [address] 90869- 5905 Oct, [facility] [id number] [place] [address] 79462 -6229 Oct, Strep throat J02.0 [place] [id number] [place] [address] 33954- 9719 Oct, [place] [id number] [place] [address] 90530- 2084 Oct, Well woman exam with routine gynecological exam Z01.419 and Screening for STD sexually transmitted disease Z11.3 [place] [id number] [place] [address] 54361- 5244 Sep, ADHD (attention deficit hyperactivity disorder), combined type F90.2 ; Anxiety state F41.1 and Depressive disorder, not elsewhere classified F32.9 [place] [id number] [place] [address] 59125- 5194 Sep, ADHD (attention deficit hyperactivity disorder), combined type F90.2 and Depressive disorder, not elsewhere classified F32.9 [place] [id number] [place] [address] 65762- 3353 Aug, [place] [id number] [place] [address] 36553- 7360 Aug, ADHD (attention deficit hyperactivity disorder), combined type F90.2 and Depressive disorder, not elsewhere classified F32.9 [place] [id number] [address]- 6150 Aug, ADHD (attention deficit hyperactivity disorder), combined type F90.2 ; Anxiety state F41.1 and Depressive disorder, not elsewhere classified F32.9 [facility] [address], [place] [address]- 3130 Aug, [facility] [id number] [place] [address] 98562- 9115 Aug, [facility] [id number] [place] [address] 89000- 1548 Jul, ADHD (attention deficit hyperactivity disorder), combined type F90.2 ; Depressive disorder, not elsewhere classified F32.9 and Anxiety state F41.1 [facility] [id number] [place] [address] 54884- 8355 Jul, [facility] [id number] [place] [address] 81925- 1001 Jul, ADHD (attention deficit hyperactivity disorder), combined type F90.2 ; Anxiety state F41.1 and Depressive disorder, not elsewhere classified F32.9 [facility] [id number] [place] [address] 03147- 4068 June, [facility] [address] [address] June, Constipation K59.00 [facility] [id number] [place] [address] 00634- 4668 May, Constipation K59.00 [facility] [address] [place] [address] 65180 -8737 May, Irritable bowel syndrome with diarrhea K58.0 [facility] [address] [place] [address] 73988- 4241 May, [facility] [id number] [place] [address] 75109- 5021 May, [facility] [id number] [place] [address]- 5307 14 May, 2014 [facility] [address] [id number] [place] [address]- 7748 13 May, 2014 [facility] [place] [facility] [address] [id number] [place] [address]- 9056 Jan, [facility] [place] [facility] [address] [id number] [place] [address]- 0835 Jan, [facility] [place] [facility] [address] [id number] [place] 0309 Jan, [facility] [place] [facility] [address] [id number] [place] [address]- 4893 Jan, [facility] [place] [facility] [address] [id number] [place] [address]- 8413 Jan, [facility] [place] [facility] [address] [id number] [place] [address]- 1397 Jan, [facility] [place] [facility] [address] [id number] [place] [address]- 6913 Nov, [facility] [place] [facility] [address] [id number] [place] [address]- 0930 Nov, [facility] [place] [facility] [address] [id number] [place] [address]- 5744 Oct, [facility] [place] [facility] [address] [id number] [place] [address]- 6096 Oct, [facility] [place] [facility] [address] [id number] [place] [address]- 5364 Sep, [facility] [place] [facility] [address] [id number] [place] [address]- 9442 Sep, [facility] [place] [facility] [address] [id number] [place] [address]- 7372 Aug, [facility] [place] [facility] [address] [id number] [place]- 3510 Aug, [facility] [place] [facility] [address] [id number] [place] [address]- 2797 Aug, [facility] [place] [facility] [address] [id number] [place] [address]- 9089 Aug, [facility] [place] [facility] [address] [id number] [place] [address]- 6669 Aug, [facility] [place] [facility] [address] [id number] [place] [address]- 5787 Aug, [facility] [place] [facility] [address] [id number] [place] [address]- 3719 Aug, [facility] [place] [facility] [address] [id number] [place] [address]- 1091 Aug, [facility] [place] [facility] [address] [id number] [place] [address]- 2804 Jul, [facility] [place] [facility] [address] [id number] [place] [address]- 4372 Jul, [facility] [place] [facility] [address] [id number] [place] [address]- 6324 Jul, [facility] [place] [facility] [address] [id number] [place] [address]- 5918 Jul, [facility] [place] [facility] [address] [id number] [place] [address]- 8348 Jul, [facility] [place] [facility] [address] [id number] [place] [address]- 9158 Jul, [facility] [place] [facility] [address] [id number] [place] [address]- 3999 Jul, [facility] [place] [facility] [address] [id number] [place] [address]- 6556 Jul, [facility] [place] [facility] [address] [id number] [place] [address]- 0475 Jul, [facility] [place] [facility] [address] [id number] [place] [address]- 9129 June, [facility] [address] [id number] [place] [address]- 3243 June, [facility] [place] [facility] [address] [id number] [place] [address]- 5584 May, [facility] [place] [facility] [address] [id number] [place] [address]- 9874 May, [facility] [place] [facility] [address] [id number] [place] [address]- 4033 May, [facility] [place] [facility] [address] [id number] [place] [address]- 0730 May, [facility] [place] [facility] [address] [id number] [place] [address]- 6483 May, [facility] [place] [facility] [address] [id number] [place] [address]- 1799 May, [facility] [place] [facility] [address] [id number] [place] [address]- 5038 May, [facility] [place] [facility] [address] [id number] [place] [address]- 4162 May, [facility] [place] [facility] [address] [id number] [place] [address]- 8150 May, [facility] [place] [facility] [address] [id number] [place] [address]- 0018 May, [facility] [place] [facility] [address] [id number] [place] [address]- 5885 May, [facility] [place] [facility] [address] [id number] [place] [address]- 5411 May, [facility] [place] [facility] [address] [id number] [place] [address]- 5192 Apr, [facility] [place] [facility] [address] [id number] [place] [address]- 3696 Apr, [facility] [place] [facility] [address] [id number] [place] [address]- 0204 Apr, [facility] [place] [facility] [address] [id number] [place] [address]- 8452 Apr, [facility] [place] [facility] [address] [id number] [place] [address]- 9600 Mar, [facility] [place] [facility] [address] [id number] [place] [address]- 2527 Mar, [facility] [place] [facility] [address] [id number] [place] [address]- 7588 Mar, [facility] [place] [facility] [address] [id number] [place] [address]- 0543 Mar, [facility] [place] [facility] [address] [id number] [place] [address]- 8914 Mar, [facility] [place] [facility] [address] [id number] [place] [address]- 4634 Mar, [facility] [place] [facility] [address] [id number] [place] [address]- 1062 Mar, [facility] [place] [facility] [address] [id number] [place] [address]- 5068 Mar, [facility] [place] [facility] [address] [id number] [place] [address]- 0798 Mar, [facility] [place] [facility] [address] [id number] [place] [address]- 2633 Mar, [facility] [place] [facility] [address] [id number] [place] [address]- 8239 14 Mar, 2013 [facility] [place] [facility] [address] [id number] [place] [address]- 9138 14 Mar, 2013 [facility] [place] [facility] [address] [facility] [id number] [place] [address]- 8605 13 Mar, 2013 [facility] [place] [facility] [address] [id number] [place] [address]- 3196 13 Mar, 2013 [facility] [place] [facility] [address] [id number] [place] [address]- 8826 Mar, [facility] [place] [facility] [address] [id number] [place] [address]- 2546 Mar, [facility] [place] [facility] [address] [id number] [place] [address]- 0476 Mar, [facility] [place] [facility] [address] [id number] [place] [address]- 8902 Mar, [facility] [place] [facility] [address] [id number] [place] [address]- 1626 Mar, [facility] [place] [facility] [address] [id number] [place] [address]- 1186 Mar, [facility] [place] [facility] [address] [id number] [place] [address]- 0899 Feb, [facility] [place] [facility] [address] [id number] [place] [address]- 5323 Feb, [facility] [place] [facility] [address] [id number] [place] [address]- 6146 Feb, [facility] [place] [facility] [address] [id number] [place] [address] Feb, [facility] [place] [facility] [address] [id number] [place] [address] Feb, [facility] [place] [facility] [address] [id number] [place] [address] Feb, [facility] [place] [facility] [address] [id number] [place] [address] Feb, [facility] [place] [facility] [address] [id number] [place] [address] Feb, [facility] [place] [facility] [address] [id number] [place] [address] Feb, [facility] [place] [facility] [address] [id number] [place] [address] Feb, [facility] [place] [facility] [address] [id number] [place] [address] Feb, [facility] [place] [facility] [address] [id number] [place] [address] Feb, [facility] [place] [facility] [address] [id number] [place] [address] Feb, [facility] [place] [facility] [address] [id number] [place] [address] Feb, [facility] [place] [facility] [address] [id number] [place] [address] Feb, [facility] [place] [facility] [address] [id number] [place] [address] Feb, [facility] [place] [facility] [address] [id number], [place] [address] Feb, [facility] [place] [facility] [address] [id number] [place] [address] Feb, [facility] [place] [facility] [address] [id number] [place] [address] Feb, [facility] [place] [facility] [address] [id number], [place] [address] Feb, [facility] [place] [facility] [address] [id number], [place] [address] Feb, [facility] [place] [facility] [address] [id number] [place] [address] Feb, [facility] [place] [facility] [address] [id number], [place] [address] Feb, [facility] [place] [facility] [address] [id number] [place] [address] Jan, [facility] [place] [facility] [address] [id number] [place] 24 Jan, 2013 [facility] [address] [id number] [place] [address] 19 Jan, 2013 [facility] [address] [id number] [place] [address] 18 Jan, 2013 [facility] [address] [id number] [place] [address] 18 Jan, 2013 [facility] [address] [id number] [place] [address] 18 Jan, 2013 [facility] [address] [id number] [place] [address] 18 Jan, 2013 [facility] [address] [id number] [place] [address] 17 Jan, 2013 [facility] [address] [id number] [place] [address] 17 Jan, 2013 [facility] [address] [id number] [place] [address] Jan, [facility] [address] [id number] [place] [address] Jan, [facility] [address] [facility] [id number] [place] [address] Jan, [facility] [address] [id number] [place] [address] Jan, [facility] [address] [id number] [place] [address] Dec, [facility] [place] [facility] [address] [id number] [place] [address] Dec, [facility] [place] [facility] [address] [id number] [place] [address] Dec, [facility] [address] [id number] [place] [address] Dec, [facility] [address] [id number], [place] [address] Dec, [facility] [address] [facility] [id number], [place] [address] Dec, [facility] [address] [facility] [id number][place] [address] [address] Nov, [facility] [address] [facility] [id number], [place] [address] Nov, [facility] [address] [id number] [place] [address] Nov, [facility] [address] [id number] [place] [address] Nov, [facility] [address] [facility] [id number], [place] [address] Nov, [facility] [address] [facility] [id number], [place] [address] Nov, [facility] [address] [facility] [id number], [place] [address] Oct, [facility] [address] [facility] [id number], [place] [address] Oct, [facility] [address] [id number], [place] [address] Oct, [facility] [address] [facility] [id number], [place] [address] Oct, [facility] [address] [facility] [id number], [place] [address] Oct, [facility] [address] [facility] [id number], [place] [address] Oct, [facility] [address] [facility] [id number], [place] [address] Oct, IMMUNIZATIONS No Known Immunizations SOCIAL HISTORY Never Assessed REASON FOR VISIT Ritalin 08/02/17 PLAN OF CARE VITAL SIGNS MEDICATIONS Medication [...]
--- OUTSIDE RECORDS SUMMARY | 2017-12-03 14:06 | XMS REPORT ---
Author Author DKADELITASAMUEL Organization [facility] Address [address] [place] [address] Care Team Providers Care Clean Up Worker Name Role Phone SAMUEL ROOT Unavailable PROBLEMS Type Condition ICD9-CM Code ADM69-CL Code Onset Dates Condition Status SNOMED Code Problem Anxiety state F41.1 Active 529500125 Problem Depressive disorder, not elsewhere classified F32.9 Active 04755998 Problem ADHD (attention deficit hyperactivity disorder), combined type F90.2 Active 95414145 Problem Irritable bowel syndrome with diarrhea K58.0 Active 760172889 Problem Plantar wart of right foot B07.0 Active [id number] Problem Slow transit constipation K59.01 Active 75476136 Problem Rhinitis, unspecified type J31.0 Active 43969491 Problem Anxiety disorder, unspecified type F41.9 Active 115131629 Problem Major depressive disorder, single episode, mild F32.0 Active 82857848 ALLERGIES No Information ENCOUNTERS Encounter Location Date Diagnosis [facility] [id number] [place] [address] 79659- 0509 Sep, [facility] [address], [place] [address] Sep, [facility] [id number] [place] [address] 20370- 7418 Sep, [facility] [id number] [place] [address] 28873- 0301 Aug, ADHD (attention deficit hyperactivity disorder), combined type F90.2 ; Major depressive disorder, single episode, mild F32.0 and Anxiety disorder, unspecified type F41.9 [facility] [id number] [address] Aug, Sore throat J02.9 ; Other specified bacterial agents as the cause of diseases classified elsewhere B96.89 and Acute tonsillitis due to other specified organisms J03.80 [facility] [address], [place] [address] 39[address] Aug, ADHD (attention deficit hyperactivity disorder), combined type F90.2 [facility] [address], [place] [address] 57[address] Jul, ADHD (attention deficit hyperactivity disorder), combined type F90.2 [facility] [address] [address] 79[address] June, ADHD (attention deficit hyperactivity disorder), combined type F90.2 ; Major depressive disorder, single episode, mild F32.0 and Anxiety disorder, unspecified type F41.9 [facility] [address], [place] [address] June, [facility] [id number] [address] 8[address] June, ADHD (attention deficit hyperactivity disorder), combined type F90.2 [facility] [address], [place] [address] May, [facility] [address] [place] [address] May, ADHD (attention deficit hyperactivity disorder), combined type F90.2 ; Major depressive disorder, single episode, mild F32.0 and Anxiety disorder, unspecified type F41.9 [facility] [address], [place] [address] May, Anxiety disorder, unspecified type F41.9 [facility] [address], [place] [address] Apr, [facility] [address], [place] [address] 8[address] Apr, Anxiety disorder, unspecified type F41.9 [facility] [id number] [place] [address] 93859- 8219 Apr, Anxiety disorder, unspecified type F41.9 ; Major depressive disorder, single episode, mild F32.0 and ADHD (attention deficit hyperactivity disorder), combined type F90.2 [facility] [id number] [place] [address] 19566- 4610 Apr, [facility] [id number] [place] [address] 99502- 8729 Apr, ADHD (attention deficit hyperactivity disorder), combined type F90.2 ; Anxiety state F41.1 ; Depressive disorder, not elsewhere classified F32.9 ; Major depressive disorder, single episode, mild F32.0 and Anxiety disorder, unspecified type F41.9 [place] [facility] [id number] [place] [address] 59443- 7633 Mar, ADHD (attention deficit hyperactivity disorder), combined type F90.2 [facility] [id number] [place] [address] 19506- 1126 Mar, Nausea R11.0 [facility] [facility] [id number] [place] [address] 67611- 6626 13 Mar, 2017 Screening for STD sexually transmitted disease Z11.3 ; Vaginal candidiasis B37.3 and Irritable bowel syndrome with diarrhea K58.0 [facility] [id number] [place] [address] 62593- 3241 Mar, [facility] [id number] [place] [address] 04892- 7747 Feb, ADHD (attention deficit hyperactivity disorder), combined type F90.2 [facility] [id number] [place] [address] 65704- 3233 Feb, Depressive disorder, not elsewhere classified F32.9 ; Anxiety state F41.1 and ADHD (attention deficit hyperactivity disorder), combined type F90.2 [facility] [address], [place] [address] 8645 Feb, Depressive disorder, not elsewhere classified F32.9 ; Anxiety state F41.1 and ADHD (attention deficit hyperactivity disorder), combined type F90.2 [facility] [id number] [place] [address] 31088- 2400 Feb, ADHD (attention deficit hyperactivity disorder), combined type F90.2 [facility] [id number] [place] [address] 08918 -9485 Jan, Other viral agents as the cause of diseases classified elsewhere B97.89 and Acute upper respiratory infection, unspecified J06.9 [facility] [id number] [place] [address] 67943- 8994 Jan, ADHD (attention deficit hyperactivity disorder), combined type F90.2 ; Major depressive disorder, single episode, mild F32.0 and Anxiety disorder, unspecified type F41.9 [place] [id number] [place] [address] 23473- 8144 Jan, [facility] [id number] [place] [address] 89718- 4171 Jan, ADHD (attention deficit hyperactivity disorder), combined type F90.2 ; Major depressive disorder, single episode, mild F32.0 and Anxiety disorder, unspecified type F41.9 [facility] [id number] [place] [address] 72344- 2495 Dec, Irritable bowel syndrome with diarrhea K58.0 and Lower abdominal pain R10.30 [place] [id number] [place] [address] 57641- 2875 Dec, Hospital discharge follow-up Z09 ; Mesenteric adenitis I88.0 ; IBD (inflammatory bowel disease) K52.9 and Nausea R11.0 [place] [id number] [place] [address] 44908- 1315 Nov, ADHD (attention deficit hyperactivity disorder), combined type F90.2 ; Major depressive disorder, single episode, mild F32.0 and Anxiety disorder, unspecified type F41.9 [place] [id number], [place] [address] 8764 Nov, Anxiety state F41.1 ; ADHD (attention deficit hyperactivity disorder), combined type F90.2 ; Major depressive disorder, single episode, mild F32.0 and Anxiety disorder, unspecified type F41.9 [facility] [id number] [place] [address] 14859- 2070 Oct, Anxiety state F41.1 ; ADHD (attention deficit hyperactivity disorder), combined type F90.2 ; Major depressive disorder, single episode, mild F32.0 and Anxiety disorder, unspecified type F41.9 [facility] [id number] [place] [address] 32670- 3208 Oct, ADHD (attention deficit hyperactivity disorder), combined type F90.2 ; Major depressive disorder, single episode, mild F32.0 and Anxiety disorder, unspecified type F41.9 [place] [id number] [place] [address] 94595- 0885 Oct, Major depressive disorder, single episode, mild F32.0 ; Anxiety state F41.1 ; ADHD (attention deficit hyperactivity disorder), combined type F90.2 and Depressive disorder, not elsewhere classified F32.9 [facility] [id number] [place] [address] 39540 -3175 16 Oct, 2016 [facility] [id number] [place] [address] 57714 -3892 Oct, Cellulitis L03.90 and Plantar wart of right foot B07.0 [facility] [id number] [place] [address] 23159- 2812 Aug, ADHD (attention deficit hyperactivity disorder), combined type F90.2 ; Major depressive disorder, single episode, mild F32.0 and Anxiety disorder, unspecified type F41.9 [facility] [id number] [place] [address] 11880- 5581 Aug, [place] [id number] [place] [address] 90662- 3795 Jul, ADHD (attention deficit hyperactivity disorder), combined type F90.2 [facility] [id number] [place] [address] 53632- 0075 Jul, Mesenteric adenitis I88.0 [facility] [id number] [place] [address] 36672- 6668 June, [facility] [id number] [place] [address] 17572 -1571 June, Lower abdominal pain R10.30 [facility] [id number] [place] [address] 77377- 7189 June, [facility] [id number] [place] [address] 46133- 0200 June, ADHD (attention deficit hyperactivity disorder), combined type F90.2 and Major depressive disorder, single episode, mild F32.0 [facility] [id number] [place] [address] 12376- 7279 May, [facility] [id number] [place] [address] 40671- 7376 May, ADHD (attention deficit hyperactivity disorder), combined type F90.2 and Major depressive disorder, single episode, mild F32.0 [facility] [id number] [place] [address] 80478 -0121 Apr, Abdominal pain R10.9 and Gastroenteritis and colitis, viral A08.4 [facility] [id number] [place] [address] 58092- 7884 Apr, [facility] [id number] [place] [address] 97647 -0839 Mar, Acute urticaria L50.8 [facility] [id number] [place] [address] 42671- 1553 Mar, [facility] [id number] [place] [address] 50361- 9389 Feb, [facility] [id number] [place] [address] 57807 -1072 Feb, Gastroenteritis K52.9 [facility] [address] 50541- 7969 Feb, Irritant contact dermatitis due to cosmetics L24.3 [facility] [address] 09891- 4427 Jan, [facility] [address] 29347- 6008 Jan, [place] [address] 70489- 0348 Jan, ADHD (attention deficit hyperactivity disorder), combined type F90.2 and Major depressive disorder, single episode, mild F32.0 [facility] [address] 79254 -9588 Dec, Flexural eczema L20.82 [place] [address] 66532- 0129 Dec, Encounter for test Z32.00 [place] [address] 64224- 3928 Dec, [place] [id number] [place] [address] 76255- 8926 Dec, [place] [id number] [place] [address] 69654- 6380 Dec, [facility] [id number] [place] [address] 48097 -9736 Nov, Sore throat J02.9 and Pharyngitis, unspecified etiology J02.9 [facility] [id number] [place] [address] 00651- 4093 Nov, [facility] [id number] [place] [address] 48109- 2888 Nov, [place] [id number] [place] [address] 26057- 7948 Nov, Generalized abdominal pain R10.84 and Slow transit constipation K59.01 [facility] [place] [id number] [place] [address] [id number] Nov, Pharyngitis, unspecified etiology J02.9 and Rhinitis, unspecified type J31.0 [facility] [id number] [place] [address] 30050- 2771 Oct, Depressive disorder, not elsewhere classified F32.9 and ADHD (attention deficit hyperactivity disorder), combined type F90.2 [facility] [id number] [place] [address] 74196- 1995 Oct, [facility] [id number] [place] [address] 66176- 6945 Oct, [facility] [id number] [place] [address] 44684 -3227 Oct, Strep throat J02.0 [facility] [id number] [place] [address] 75850- 4271 Oct, [place] [id number] [place] [address] 90813- 6829 Oct, Well woman exam with routine gynecological exam Z01.419 and Screening for STD sexually transmitted disease Z11.3 [facility] [id number] [place] [address] 36764- 7833 Sep, ADHD (attention deficit hyperactivity disorder), combined type F90.2 ; Anxiety state F41.1 and Depressive disorder, not elsewhere classified F32.9 [facility] [id number] [place] [address] 44432- 9936 Sep, ADHD (attention deficit hyperactivity disorder), combined type F90.2 and Depressive disorder, not elsewhere classified F32.9 [facility] [id number] [place] [address] 86213- 1166 Aug, [place] [address], [place] [address]- 8879 Aug, ADHD (attention deficit hyperactivity disorder), combined type F90.2 and Depressive disorder, not elsewhere classified F32.9 [facility] [address], [place] [address]- 5999 Aug, ADHD (attention deficit hyperactivity disorder), combined type F90.2 ; Anxiety state F41.1 and Depressive disorder, not elsewhere classified F32.9 [facility] [id number] [place] [address] 97461- 8551 Aug, [facility] [id number] [place] [address] 04681- 0531 Aug, [facility] [id number] [place] [address] 22279- 9489 Jul, ADHD (attention deficit hyperactivity disorder), combined type F90.2 ; Depressive disorder, not elsewhere classified F32.9 and Anxiety state F41.1 [facility] [id number] [place] [address] 38969- 8675 Jul, [facility] [id number] [place] [address] 83426- 7872 Jul, ADHD (attention deficit hyperactivity disorder), combined type F90.2 ; Anxiety state F41.1 and Depressive disorder, not elsewhere classified F32.9 [facility] [address], [place] [address]- 0410 June, [facility] [place] [address] [address] June, Constipation K59.00 [facility] [id number] [place] [address] 22020- 2668 May, Constipation K59.00 [facility] [address], [place] [address] -9496 May, Irritable bowel syndrome with diarrhea K58.0 [facility] [id number] [place] [address]- 8777 15 May, 2015 [facility] [address] [id number] [place] [address]- 1832 15 May, 2015 [facility] [place] [facility] [address] [id number] [place] [address]- 3015 14 May, 2014 [facility] [address] [id number] [place] [address]- 7544 13 May, 2014 [facility] [place] [facility] [address] [id number] [place] [address]- 1990 Jan, [facility] [address] [id number] [place] [address]- 3464 Jan, [facility] [place] [facility] [address] [id number] [place] [address]- 7909 Jan, [facility] [address] [id number] [place] [address]- 0144 Jan, [facility] [address] [id number] [place] [address]- 5611 Jan, [facility] [place] [facility] [address] [id number] [place] [address]- 4163 Jan, [facility] [address] [id number] [place] [address]- 5790 Nov, [facility] [place] [facility] [address] [id number] [place] [address]- 5439 Nov, [facility] [place] [facility] [address] [id number] [place] [address]- 5790 Oct, [facility] [place] [facility] [address] [id number] [place] [address]- 1022 Oct, [facility] [place] [facility] [address] [id number] [place] [address]- 5834 Sep, [facility] [place] [facility] [address] [id number] [place] [address]- 4694 Sep, [facility] [place] [facility] [address] [id number] [place] [address]- 4972 Aug, [facility] [place] [facility] [address] [id number] [place] [address]- 1646 Aug, [facility] [place] [facility] [address] [id number] [place] [address]- 7472 Aug, [facility] [place] [facility] [address] [id number] [place] [address]- 4077 Aug, [facility] [place] [facility] [address] [id number] [place] [address]- 5184 Aug, [facility] [place] [facility] [address] [id number] [place] [address]- 8766 Aug, [facility] [place] [facility] [address] [id number] [place] [address]- 2093 Aug, [facility] [place] [facility] [address] [id number] [place] [address]- 6698 Aug, [facility] [place] [facility] [address] [id number] [place] [address]- 1212 Jul, [facility] [place] [facility] [address] [id number] [place] [address]- 1805 Jul, [facility] [place] [facility] [address] [id number] [place] [address]- 2076 Jul, [facility] [place] [facility] [address] [id number] [place] [address]- 4787 Jul, [facility] [place] [facility] [address] [id number] [place] [address]- 3142 Jul, [facility] [place] [facility] [address] [id number] [place] [address]- 0739 Jul, [facility] [place] [facility] [address] [id number] [place] 6804 Jul, [facility] [place] [facility] [address] [id number] [place] [address]- 9005 Jul, [facility] [place] [facility] [address] [id number] [place] [address]- 2075 Jul, [facility] [place] [facility] [address] [id number] [place] [address]- 3131 June, [facility] [place] [facility] [address] [id number] [place] [address]- 4183 June, [facility] [place] [facility] [address] [id number] [place] [address]- 9962 May, [facility] [place] [facility] [address] [id number] [place] [address]- 8415 May, [facility] [place] [facility] [address] [id number] [place] [address]- 3084 May, [facility] [place] [facility] [address] [id number] [place] [address]- 3579 May, [facility] [place] [facility] [address] [id number] [place] [address]- 2782 May, [facility] [place] [facility] [address] [id number] [place] [address]- 6751 May, [facility] [place] [facility] [address] [id number] [place] [address]- 8543 May, [facility] [place] [facility] [address] [id number] [place] [address]- 1980 May, [facility] [place] [facility] [address] [id number] [place] [address]- 8871 May, [facility] [place] [facility] [address] [id number] [place] [address]- 0781 May, [facility] [place] [facility] [address] [id number] [place] [address]- 7751 May, [facility] [place] [facility] [address] [id number] [place] [address]- 5922 May, [facility] [place] [facility] [address] [id number] [place] [address]- 9249 Apr, [facility] [place] [facility] [address] [id number] [place] [address]- 3691 Apr, [facility] [place] [facility] [address] [id number] [place] [address]- 7887 Apr, [facility] [place] [facility] [address] [id number] [place] [address]- 5544 Apr, [facility] [place] [facility] [address] [id number] [place] [address]- 2545 Mar, [facility] [place] [facility] [address] [id number] [place] [address]- 0679 Mar, [facility] [place] [facility] [address] [id number] [place] [address]- 1712 Mar, [facility] [place] [facility] [address] [id number] [place] [address]- 7306 Mar, [facility] [place] [facility] [address] [id number] [place] [address]- 7429 Mar, [facility] [place] [facility] [address] [id number] [place] [address]- 0077 Mar, [facility] [place] [facility] [address] [id number] [place] [address]- 5963 Mar, [facility] [place] [facility] [address] [id number] [place] [address]- 3639 Mar, [facility] [place] [facility] [address] [id number] [place] [address]- 1420 Mar, [facility] [place] [facility] [address] [id number] [place] [address]- 2398 Mar, [facility] [place] [facility] [address] [id number] [place] [address]- 6830 14 Mar, 2013 [facility] [place] [facility] [address] [id number] [place] [address]- 4871 14 Mar, 2013 [facility] [place] [facility] [address] [id number] [place] [address]- 2816 Mar, [facility] [place] [facility] [address] [id number] [place] [address]- 9146 Mar, [facility] [place] [facility] [address] [id number] [place] [address]- 2106 Mar, [facility] [place] [facility] [address] [id number] [place] [address]- 2543 Mar, [facility] [place] [facility] [address] [id number] [place] [address] Mar, [facility] [place] [facility] [address] [id number] [place] [address] Mar, [facility] [place] [facility] [address] [id number] [place] [address] Mar, [facility] [place] [facility] [address] [id number] [place] [address] Mar, [facility] [place] [facility] [address] [id number] [place] [address] Feb, [facility] [place] [facility] [address] [id number] [place] [address] Feb, [facility] [place] [facility] [address] [id number] [place] [address] Feb, [facility] [place] [facility] [address] [id number] [place] [address] Feb, [facility] [place] [facility] [address] [id number] [place] [address] Feb, [facility] [place] [facility] [address] [id number] [place] [address] Feb, [facility] [place] [facility] [address] [id number] [place] [address] Feb, [facility] [place] [facility] [address] [id number] [place] [address] Feb, [facility] [place] [facility] [address] [id number] [place] [address] Feb, [facility] [place] [facility] [address] [id number] [place] [address] Feb, [facility] [place] [facility] [address] [id number] [place] [address] Feb, [facility] [place] [facility] [address] [id number] [place] [address] Feb, [facility] [place] [facility] [address] [id number] [place] [address] Feb, [facility] [place] [facility] [address] [id number] [place] [address] Feb, [facility] [place] [facility] [address] [id number] [place] [address] Feb, [facility] [place] [facility] [address] [id number] [place] [address] Feb, [facility] [place] [facility] [address] [id number] [place] [address] Feb, [facility] [place] [facility] [address] [id number] [place] [address] Feb, [facility] [place] [facility] [address] [id number], [place] [address] Feb, [facility] [place] [facility] [address] [id number] [place] [address] Feb, [facility] [place] [facility] [address] [id number] [place] [address] Feb, [facility] [place] [facility] [address] [address] [id number] [place] [address] Feb, [facility] [place] [facility] [address] [id number] [place] [address] Feb, [facility] [address] [id number] [place] [address] Jan, [facility] [address] [id number] [place] [address] Jan, [facility] [address] [id number] [place] [address] Jan, [facility] [place] [facility] [address] [id number] [place] [address] Jan, [facility] [address] [id number] [place] [address] Jan, [facility] [place] [facility] [address] [id number] [place] [address] Jan, [facility] [address] [id number] [place] [address] Jan, [facility] [address] [id number] [place] [address] Jan, [facility] [address] [id number] [place] [address] Jan, [facility] [address] [facility] [id number] [place] [address] Jan, [facility] [place] [facility] [address] [id number] [place] [address] Jan, [facility] [place] [facility] [address] [id number] [place] [address] Jan, [facility] [place] [facility] [address] [id number] [place] [address] Jan, [facility] [place] [facility] [address] [id number] [place] [address] Dec, [facility] [place] [facility] [address] [id number] [place] [address] Dec, [facility] [place] [facility] [address] [id number] [place] [address] Dec, [facility] [place] [facility] [address] [id number] [place] [address] Dec, [facility] [place] [facility] [address] [id number] [place] [address] Dec, [facility] [place] [facility] [address] [id number] [place] [address] Dec, [facility] [place] [facility] [address] [id number] [place] [address] Nov, [facility] [place] [facility] [address] [id number] [place] [address] Nov, [facility] [place] [facility] [address] [id number] [place] [address] Nov, [facility] [place] [facility] [address] [id number] [place] [address] Nov, [facility] [place] [facility] [address] [id number] [place] [address] Nov, [facility] [place] [facility] [address] [id number] [place] [address] Nov, [facility] [place] [facility] [address] [id number] [place] [address] 28 Oct, 2012 [facility] [place] [facility] [address] [id number] [place] [address] 27 Oct, 2012 [facility] [place] [facility] [address] [id number] [place] [address] 26 Oct, 2012 [facility] [place] [facility] [address] [id number] [place] [address] 25 Oct, 2012 [facility] [place] [facility] [address] [id number] [place] [address] 25 Oct, 2012 [facility] [place] [facility] [address] [id number] [place] [address] Oct, [facility] [address] [facility] [address] [facility] [id number] [place] [address] Oct, IMMUNIZATIONS No Known Immunizations SOCIAL HISTORY Never Assessed REASON FOR VISIT Medication refill request PLAN OF CARE VITAL SIGNS MEDICATIONS Unknown [...]
--- OUTSIDE RECORDS SUMMARY | 2017-12-03 14:06 | XMS REPORT ---
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 Name Role Phone JENNIFERHARIKA Unavailable PROBLEMS Type Condition ICD9-CM Code NVP07-IB Code Onset Dates Condition Status SNOMED Code Problem Anxiety state F41.1 Active 066275281 Problem Depressive disorder, not elsewhere classified F32.9 Active 74584102 Problem ADHD (attention deficit hyperactivity disorder), combined type F90.2 Active 53568802 Problem Irritable bowel syndrome with diarrhea K58.0 Active 584044068 Problem Plantar wart of right foot B07.0 Active [id number] Problem Slow transit constipation K59.01 Active 64378409 Problem Rhinitis, unspecified type J31.0 Active 89499371 Problem Anxiety disorder, unspecified type F41.9 Active 095538679 Problem Major depressive disorder, single episode, mild F32.0 Active 49467927 ALLERGIES No Information ENCOUNTERS Encounter Location Date Diagnosis [facility] [address] [place] [address] 56813- 3621 Sep, [facility] [address] [place] [address] 08308- 7682 Sep, [facility] [id number] [place] [address] 02493- 9306 Aug, ADHD (attention deficit hyperactivity disorder), combined type F90.2 ; Major depressive disorder, single episode, mild F32.0 and Anxiety disorder, unspecified type F41.9 [facility] [address] [place] [address] 00465 -1581 Aug, Sore throat J02.9 ; Other specified bacterial agents as the cause of diseases classified elsewhere B96.89 and Acute tonsillitis due to other specified organisms J03.80 [facility] [address], [place] [address] 06[address] Aug, ADHD (attention deficit hyperactivity disorder), combined type F90.2 [facility] [address], [place] [address] 5366 Jul, ADHD (attention deficit hyperactivity disorder), combined type F90.2 [facility] [address], [place] [address] June, ADHD (attention deficit hyperactivity disorder), combined type F90.2 ; Major depressive disorder, single episode, mild F32.0 and Anxiety disorder, unspecified type F41.9 [facility] [address], [place] [address] 5[address] June, [facility] [address], [place] [address] 1168 June, ADHD (attention deficit hyperactivity disorder), combined type F90.2 [facility] [address], [place] [address] 7[address] May, [facility] [address], [place] [address] 7[address] May, ADHD (attention deficit hyperactivity disorder), combined type F90.2 ; Major depressive disorder, single episode, mild F32.0 and Anxiety disorder, unspecified type F41.9 [facility] [address], [place] [address] 98[address] May, Anxiety disorder, unspecified type F41.9 [facility] [address], [place] [address] 0[address] Apr, [facility] [address], [place] [address] 4017 Apr, Anxiety disorder, unspecified type F41.9 [facility] [address], [place] [address] 1368 Apr, Anxiety disorder, unspecified type F41.9 ; Major depressive disorder, single episode, mild F32.0 and ADHD (attention deficit hyperactivity disorder), combined type F90.2 [facility] [address] [place] [address] 55068- 0750 Apr, [facility] [id number] [place] [address] 60920- 6635 Apr, ADHD (attention deficit hyperactivity disorder), combined type F90.2 ; Anxiety state F41.1 ; Depressive disorder, not elsewhere classified F32.9 ; Major depressive disorder, single episode, mild F32.0 and Anxiety disorder, unspecified type F41.9 [facility] [id number] [place] [address] 13500- 8964 Mar, ADHD (attention deficit hyperactivity disorder), combined type F90.2 [facility] [id number] [place] [address] 74905- 2991 Mar, Nausea R11.0 [facility] [id number] [place] [address] 64079- 9880 13 Mar, 2017 Screening for STD sexually transmitted disease Z11.3 ; Vaginal candidiasis B37.3 and Irritable bowel syndrome with diarrhea K58.0 [facility] [id number] [place] [address] 96173- 3475 04 Mar, 2017 [facility] [id number] [place] [address] 19422- 1621 Feb, ADHD (attention deficit hyperactivity disorder), combined type F90.2 [facility] [address] [place] [address] 38883- 0607 Feb, Depressive disorder, not elsewhere classified F32.9 ; Anxiety state F41.1 and ADHD (attention deficit hyperactivity disorder), combined type F90.2 [facility] [address] [place] [address] 46460- 2935 Feb, Depressive disorder, not elsewhere classified F32.9 ; Anxiety state F41.1 and ADHD (attention deficit hyperactivity disorder), combined type F90.2 [facility] [address] [address]- 7931 Feb, ADHD (attention deficit hyperactivity disorder), combined type F90.2 [facility] [address] [place] [address] 36238 -4257 Jan, Other viral agents as the cause of diseases classified elsewhere B97.89 and Acute upper respiratory infection, unspecified J06.9 [facility] [id number] [place] [address] 33143- 5444 Jan, ADHD (attention deficit hyperactivity disorder), combined type F90.2 ; Major depressive disorder, single episode, mild F32.0 and Anxiety disorder, unspecified type F41.9 [facility] [id number] [place] [address] 87733- 4013 Jan, [facility] [id number] [place] [address] 55931- 7467 Jan, ADHD (attention deficit hyperactivity disorder), combined type F90.2 ; Major depressive disorder, single episode, mild F32.0 and Anxiety disorder, unspecified type F41.9 [facility] [id number] [place] [address] 53366- 7699 Dec, Irritable bowel syndrome with diarrhea K58.0 and Lower abdominal pain R10.30 [facility] [address] [place] [address] 18375- 6575 Dec, Hospital discharge follow-up Z09 ; Mesenteric adenitis I88.0 ; IBD (inflammatory bowel disease) K52.9 and Nausea R11.0 [facility] [address] [place] [address] 90394- 3704 Nov, ADHD (attention deficit hyperactivity disorder), combined type F90.2 ; Major depressive disorder, single episode, mild F32.0 and Anxiety disorder, unspecified type F41.9 [facility] [address], [place] [address]- 5771 Nov, Anxiety state F41.1 ; ADHD (attention deficit hyperactivity disorder), combined type F90.2 ; Major depressive disorder, single episode, mild F32.0 and Anxiety disorder, unspecified type F41.9 [facility] [id number] [place] [address] 06370- 6971 Oct, Anxiety state F41.1 ; ADHD (attention deficit hyperactivity disorder), combined type F90.2 ; Major depressive disorder, single episode, mild F32.0 and Anxiety disorder, unspecified type F41.9 [facility] [id number] [place] [address] 97434- 2835 Oct, ADHD (attention deficit hyperactivity disorder), combined type F90.2 ; Major depressive disorder, single episode, mild F32.0 and Anxiety disorder, unspecified type F41.9 [facility] [address] [place] [address] 95801- 5087 Oct, Major depressive disorder, single episode, mild F32.0 ; Anxiety state F41.1 ; ADHD (attention deficit hyperactivity disorder), combined type F90.2 and Depressive disorder, not elsewhere classified F32.9 [facility] [id number] [place] [address] 05242 -0103 Oct, [facility] [id number] [place] [address] 82796 -7992 Oct, Cellulitis L03.90 and Plantar wart of right foot B07.0 [facility] [address] [place] [address] 11399- 5183 Aug, ADHD (attention deficit hyperactivity disorder), combined type F90.2 ; Major depressive disorder, single episode, mild F32.0 and Anxiety disorder, unspecified type F41.9 [facility] [id number] [place] [address] 33501- 9650 Aug, [facility] [address] [place] [address] 99005- 3833 Jul, ADHD (attention deficit hyperactivity disorder), combined type F90.2 [facility] [id number] [place] [address] 90944- 4932 Jul, Mesenteric adenitis I88.0 [facility] [id number] [place] [address] 85655- 8778 June, [facility] [id number] [place] [address] 52021 -1160 June, Lower abdominal pain R10.30 [facility] [address] 90724- 2489 June, [facility] [id number] [place] [address] 96795- 8530 June, ADHD (attention deficit hyperactivity disorder), combined type F90.2 and Major depressive disorder, single episode, mild F32.0 [facility] [id number] [place] [address] 20752- 0206 May, [facility] [id number] [place] [address] 29585- 7295 May, ADHD (attention deficit hyperactivity disorder), combined type F90.2 and Major depressive disorder, single episode, mild F32.0 [facility] [id number] [place] [address] 74142 -3157 Apr, Abdominal pain R10.9 and Gastroenteritis and colitis, viral A08.4 [facility] [id number] [place] [address] 44622- 1464 Apr, [facility] [id number] [place] [address] 12756 -5095 Mar, Acute urticaria L50.8 [facility] [id number] [place] [address] 07995- 7811 Mar, [facility] [id number] [place] [address] 66786- 2641 Feb, [facility] [id number] [place] [address] 60187 -8270 Feb, Gastroenteritis K52.9 [facility] [id number] [place] [address] 52048- 5272 Feb, Irritant contact dermatitis due to cosmetics L24.3 [facility] [id number] [place] [address] 86158- 3985 Jan, [facility] [address] 90090- 1961 Jan, [facility] [address] 64593- 6307 Jan, ADHD (attention deficit hyperactivity disorder), combined type F90.2 and Major depressive disorder, single episode, mild F32.0 [facility] [address] 54849 -5084 Dec, Flexural eczema L20.82 [place] [address] 47142- 2834 Dec, Encounter for test Z32.00 [facility] [address] 07570- 4543 Dec, [facility] [address] 77799- 6727 Dec, [facility] [id number] [place] [address] 56704- 7612 Dec, [facility] [id number] [place] [address] 28568 -5863 Nov, Sore throat J02.9 and Pharyngitis, unspecified etiology J02.9 [facility] [address] 30547- 9136 Nov, [facility] [id number] [place] [address] 18763- 3840 Nov, [facility] [address] 41291- 3805 Nov, Generalized abdominal pain R10.84 and Slow transit constipation K59.01 [facility] [address] [address] Nov, Pharyngitis, unspecified etiology J02.9 and Rhinitis, unspecified type J31.0 [facility] [id number] [place] [address] 64534- 7499 Oct, Depressive disorder, not elsewhere classified F32.9 and ADHD (attention deficit hyperactivity disorder), combined type F90.2 [facility] [id number] [place] [address] 71768- 5830 Oct, [facility] [address] 63570- 6727 Oct, [facility] [id number] [place] [address] 51225 -2017 Oct, Strep throat J02.0 [facility] [id number] [place] [address] 35932- 7765 16 Oct, 2015 [facility] [id number] [place] [address] 60375- 2555 Oct, Well woman exam with routine gynecological exam Z01.419 and Screening for STD sexually transmitted disease Z11.3 [facility] [address] [place] [address] 04286- 4337 Sep, ADHD (attention deficit hyperactivity disorder), combined type F90.2 ; Anxiety state F41.1 and Depressive disorder, not elsewhere classified F32.9 [facility] [address] [place] [address] 72540- 2576 Sep, ADHD (attention deficit hyperactivity disorder), combined type F90.2 and Depressive disorder, not elsewhere classified F32.9 [facility] [address], [place] [address]- 7532 Aug, [facility] [id number] [place] [address] 60423- 0730 Aug, ADHD (attention deficit hyperactivity disorder), combined type F90.2 and Depressive disorder, not elsewhere classified F32.9 [facility] [id number] [place] [address] 22846- 1373 Aug, ADHD (attention deficit hyperactivity disorder), combined type F90.2 ; Anxiety state F41.1 and Depressive disorder, not elsewhere classified F32.9 [facility] [id number] [place] [address] 46335- 2775 Aug, [facility] [id number] [place] [address] 36857- 7221 Aug, [facility] [id number] [place] [address] 46534- 6962 Jul, ADHD (attention deficit hyperactivity disorder), combined type F90.2 ; Depressive disorder, not elsewhere classified F32.9 and Anxiety state F41.1 [facility] [id number] [place] [address] 59905- 6667 Jul, [facility] [id number] [place] [address] 03987- 3056 Jul, ADHD (attention deficit hyperactivity disorder), combined type F90.2 ; Anxiety state F41.1 and Depressive disorder, not elsewhere classified F32.9 [facility] [id number] [place] [address] 28374- 3863 June, [facility] [id number] [place] [address] [id number] June, Constipation K59.00 [facility] [id number] [place] [address] 60228- 1159 May, Constipation K59.00 [facility] [id number] [place] [address] 72745 -5665 May, Irritable bowel syndrome with diarrhea K58.0 [facility] [id number] [place] [address] 71289- 6467 May, [facility] [id number] [address]- 3507 15 May, 2015 [facility] [address] [id number] [place] [address]- 5491 14 May, 2014 [facility] [place] [facility] [address] [id number] [place] [address]- 0514 13 May, 2014 [facility] [address] [id number] [place] [address]- 6228 Jan, [facility] [place] [facility] [address] [id number] [place] [address]- 7522 Jan, [facility] [place] [facility] [address] [id number] [place] 3696 Jan, [facility] [place] [facility] [address] [id number] [place] [address]- 6025 Jan, [facility] [place] [facility] [address] [id number] [place] [address]- 2551 Jan, [facility] [place] [facility] [address] [id number] [place] [address]- 8235 Jan, [facility] [place] [facility] [address] [id number] [place] [address]- 5121 Nov, [facility] [place] [facility] [address] [id number] [place] [address]- 0445 Nov, [facility] [place] [facility] [address] [id number] [place] [address]- 3674 Oct, [facility] [place] [facility] [address] [id number] [place] [address]- 2060 Oct, [facility] [place] [facility] [address] [id number] [place] [address]- 0857 Sep, [facility] [place] [facility] [address] [id number] [place] [address]- 6492 Sep, [facility] [place] [facility] [address] [id number] [place] [address]- 1259 Aug, [facility] [place] [facility] [address] [id number] [place] [address]- 7010 Aug, 2013 [facility] [place] [facility] [address] [id number] [place] [address]- 0182 Aug, [facility] [place] [facility] [address] [id number] [place] [address]- 4347 Aug, 2013 [facility] [place] [facility] [address] [id number] [place] [address]- 6128 Aug, 2013 [facility] [place] [facility] [address] [id number] [place] [address]- 4768 Aug, [facility] [place] [facility] [address] [id number] [place] [address]- 4467 Aug, [facility] [place] [facility] [address] [id number] [place] [address]- 3164 Aug, [facility] [place] [facility] [address] [id number] [place] [address]- 7476 Jul, [facility] [place] [facility] [address] [id number] [place] [address]- 8276 Jul, [facility] [place] [facility] [address] [id number] [place] [address]- 2734 Jul, [facility] [place] [facility] [address] [id number] [place] [address]- 0846 Jul, [facility] [place] [facility] [address] [id number] [place] [address]- 7512 Jul, [facility] [place] [facility] [address] [id number] [place] [address]- 8458 Jul, [facility] [place] [facility] [address] [id number] [place] [address]- 6972 Jul, [facility] [place] [facility] [address] [id number] [place] [address]- 3279 Jul, [facility] [place] [facility] [address] [id number] [place] [address]- 9255 Jul, [facility] [address] [id number] [place] [address]- 3855 June, [facility] [place] [facility] [address] [id number] [place] [address]- 0655 June, [facility] [place] [facility] [address] [id number] [place] [address]- 5678 May, [facility] [place] [facility] [address] [id number] [place] [address]- 6693 May, [facility] [place] [facility] [address] [id number] [place] [address]- 6314 May, [facility] [place] [facility] [address] [id number] [place] [address]- 1249 May, [facility] [place] [facility] [address] [id number] [place] [address]- 4444 May, [facility] [place] [facility] [address] [id number] [place] [address]- 1629 May, [facility] [place] [facility] [address] [id number] [place] [address]- 7593 May, [facility] [place] [facility] [address] [id number] [place] [address]- 1004 May, [facility] [place] [facility] [address] [id number] [place] [address]- 5482 May, [facility] [place] [facility] [address] [id number] [place] [address]- 4363 May, [facility] [place] [facility] [address] [id number] [place] [address]- 9980 May, [facility] [place] [facility] [address] [id number] [place] [address]- 6985 May, [facility] [place] [facility] [address] [id number] [place] [address]- 9954 Apr, [facility] [place] [facility] [address] [id number] [place] [address]- 1544 Apr, [facility] [place] [facility] [address] [id number] [place] [address]- 7509 Apr, [facility] [place] [facility] [address] [id number] [place] [address]- 5553 Apr, [facility] [place] [facility] [address] [id number] [place] [address]- 6650 Mar, [facility] [place] [facility] [address] [id number] [place] [address]- 6220 Mar, [facility] [place] [facility] [address] [id number] [place] [address]- 7372 Mar, [facility] [place] [facility] [address] [id number] [place] [address]- 5565 Mar, [facility] [place] [facility] [address] [id number] [place] [address]- 6352 Mar, [facility] [place] [facility] [address] [id number] [place] [address]- 4538 Mar, [facility] [place] [facility] [address] [id number] [place] [address]- 7919 Mar, [facility] [place] [facility] [address] [id number] [place] [address]- 9151 Mar, [facility] [place] [facility] [address] [id number] [place] [address]- 5422 Mar, [facility] [place] [facility] [address] [id number] [place] [address]- 1080 Mar, [facility] [place] [facility] [address] [id number] [place] [address]- 4960 14 Mar, 2013 [facility] [place] [facility] [address] [id number] [place] [address]- 9189 Mar, [facility] [place] [facility] [address] [id number] [place] [address]- 2686 Mar, [facility] [place] [facility] [address] [id number] [place] [address] 2546 Mar, [facility] [place] [facility] [address] [id number] [place] [address]- 2546 Mar, [facility] [place] [facility] [address] [id number] [place] [address]- 3476 Mar, [facility] [place] [facility] [address] [id number] [place] [address]- 6693 Mar, [facility] [place] [facility] [address] [id number] [place] [address] Mar, [facility] [place] [facility] [address] [facility] [id number] [place] [address] Mar, [facility] [place] [facility] [address] [id number] [place] [address] Mar, [facility] [place] [facility] [address] [id number] [place] [address] Feb, [facility] [place] [facility] [address] [facility] [id number] [place] [address] Feb, [facility] [place] [facility] [address] [facility] [id number] [place] [address] Feb, [facility] [place] [facility] [address] [id number] [place] [address] Feb, [facility] [place] [facility] [address] [id number] [place] [address] 25[address] Feb, [facility] [place] [facility] [address] [id number] [place] [address] 25[address] Feb, [facility] [place] [facility] [address] [facility] [id number] [place] [address]- [address] Feb, [facility] [place] [facility] [address] [id number] [place] [address] Feb, [facility] [place] [facility] [address] [id number] [place] [address]- [address] Feb, [facility] [place] [facility] [address] [id number] [place] [address] Feb, [facility] [place] [facility] [address] [id number] [place] [address] Feb, [facility] [place] [facility] [address] [id number] [place] [address]- [address] Feb, [facility] [place] [facility] [address] [id number] [place] [address] Feb, [facility] [place] [facility] [address] [id number] [place] [address]- [address] Feb, [facility] [place] [facility] [address] [id number] [place] [address] Feb, [facility] [place] [facility] [address] [id number], [place] [address] Feb, [facility] [place] [facility] [address] [id number] [place] [address] Feb, [facility] [place] [facility] [address] [id number] [place] [address] Feb, [facility] [place] [facility] [address] [id number], [place] [address] Feb, [facility] [place] [facility] [address] [id number], [place] [address] Feb, [facility] [place] [facility] [address] [id number] [place] [address] Feb, [facility] [place] [facility] [address] [id number], [place] [address] Feb, [facility] [place] [facility] [address] [id number] [place] [address] Feb, [facility] [place] [facility] [address] [id number] [place] [address]- [id number] 24 Jan, 2013 [facility] [address] [id number] [place] [address] 24 Jan, 2013 [facility] [address] [id number] [place] [address] [address] 19 Jan, 2013 [facility] [address] [id number] [place] [address] 18 Jan, 2013 [facility] [address] [id number] [place] [address] 18 Jan, 2013 [facility] [address] [id number] [place] [address] Jan, [facility] [address] [id number] [place] [address] 18 Jan, 2013 [facility] [address] [id number] [place] [address] 17 Jan, 2013 [facility] [address] [id number] [place] [address]- [address]64 17 Jan, 2013 [facility] [address] [id number] [place] [address] Jan, [facility] [address] [facility] [id number] [place] [address] Jan, [facility] [address] [id number] [place] [address] Jan, [facility] [place] [facility] [address] [id number] [place] [address] Jan, [facility] [place] [facility] [address] [id number] [place] [address] Dec, [facility] [place] [facility] [address] [id number] [place] [address] Dec, [facility] [address] [id number] [place] [address] Dec, [facility] [place] [facility] [address] [id number] [place] [address] Dec, [facility] [place] [facility] [address] [id number] [place] [address]- [address] Dec, [facility] [place] [facility] [address] [id number] [place] [address] Dec, [facility] [place] [facility] [address] [id number] [place] [address]698 Nov, [facility] [address] [id number] [place] [address]- [address] Nov, [facility] [place] [facility] [address] [id number] [place] [address]- [address] Nov, [facility] [address] [id number] [place] [address] Nov, [facility] [place] [facility] [address] [id number] [place] [address] Nov, [facility] [place] [facility] [address] [id number] [place] [address]687 Nov, [facility] [place] [facility] [address] [id number], [place] [address] 28 Oct, 2012 [facility] [place] [facility] [address] [id number] [place] [address]36 27 Oct, 2012 [facility] [place] [facility] [address] [id number], [place] [address] 26 Oct, 2012 [facility] [place] [facility] [address] [id number] [place] [address]43 25 Oct, 2012 [facility] [place] [facility] [address] [id number] [place] [address]- [address] 25 Oct, 2012 [facility] [place] [facility] [address] [id number], [place] [address]68 18 Oct, 2012 [facility] [place] [facility] [address] [id number], [place] [address] Oct, IMMUNIZATIONS No Known Immunizations SOCIAL HISTORY Never Assessed REASON FOR VISIT ritalin 07/05/2016 PLAN OF CARE VITAL SIGNS MEDICATIONS Medication Instructions Dosage Frequency Start Date End Date Duration Status Ritalin LA 30 MG Orally Once a day 1 capsule in the morning 24h June, 28 days Active RESULTS No Results PROCEDURES [...]
--- OUTSIDE RECORDS SUMMARY | 2017-12-03 14:07 | XMS REPORT ---
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 Name Role Phone SAMUEL ROOT Unavailable PROBLEMS Type Condition ICD9-CM Code GQP46-QU Code Onset Dates Condition Status SNOMED Code Problem Anxiety state F41.1 Active 433663332 Problem Depressive disorder, not elsewhere classified F32.9 Active 68721630 Problem ADHD (attention deficit hyperactivity disorder), combined type F90.2 Active 50761670 Problem Irritable bowel syndrome with diarrhea K58.0 Active 348353253 Problem Plantar wart of right foot B07.0 Active 21475678940625179 Problem Slow transit constipation K59.01 Active 70873785 Problem Rhinitis, unspecified type J31.0 Active 60899385 Problem Anxiety disorder, unspecified type F41.9 Active 193532605 Problem Major depressive disorder, single episode, mild F32.0 Active 35923384 ALLERGIES No Information ENCOUNTERS Encounter Location Date Diagnosis [facility] [id number] [place] [address]01[address]88 Sep, [facility] [address] [id number] [address] Aug, ADHD (attention deficit hyperactivity disorder), combined type F90.2 ; Major depressive disorder, single episode, mild F32.0 and Anxiety disorder, unspecified type F41.9 [facility] [id number] [address] Aug, Sore throat J02.9 ; Other specified bacterial agents as the cause of diseases classified elsewhere B96.89 and Acute tonsillitis due to other specified organisms J03.80 [facility] [id number] [address] Aug, ADHD (attention deficit hyperactivity disorder), combined type F90.2 [facility] [id number] [place] [address] Jul, ADHD (attention deficit hyperactivity disorder), combined type F90.2 [facility] [id number] [place] [address] June, ADHD (attention deficit hyperactivity disorder), combined type F90.2 ; Major depressive disorder, single episode, mild F32.0 and Anxiety disorder, unspecified type F41.9 [facility] [id number] [place] [address] June, [facility] [id number] [place] [address] June, ADHD (attention deficit hyperactivity disorder), combined type F90.2 [facility] [address] [address] May, [facility] [address] [id number] [address] May, ADHD (attention deficit hyperactivity disorder), combined type F90.2 ; Major depressive disorder, single episode, mild F32.0 and Anxiety disorder, unspecified type F41.9 [facility] [id number] [address] May, Anxiety disorder, unspecified type F41.9 [facility] [id number] [address] 160[address] Apr, [facility] [id number] [address] Apr, Anxiety disorder, unspecified type F41.9 [facility] [id number] [address] Apr, Anxiety disorder, unspecified type F41.9 ; Major depressive disorder, single episode, mild F32.0 and ADHD (attention deficit hyperactivity disorder), combined type F90.2 [facility] [id number] [address] Apr, [facility] [id number] [place] [address] 44930- 7998 Apr, ADHD (attention deficit hyperactivity disorder), combined type F90.2 ; Anxiety state F41.1 ; Depressive disorder, not elsewhere classified F32.9 ; Major depressive disorder, single episode, mild F32.0 and Anxiety disorder, unspecified type F41.9 [facility] [id number] [place] [address] 46412- 3941 Mar, ADHD (attention deficit hyperactivity disorder), combined type F90.2 [facility] [id number] [place] [address] 09007- 7844 20 Mar, 2017 Nausea R11.0 [place] [facility] [id number] [place] [address] 60096- 8789 13 Mar, 2017 Screening for STD sexually transmitted disease Z11.3 ; Vaginal candidiasis B37.3 and Irritable bowel syndrome with diarrhea K58.0 [facility] [id number] [place] [address] 13497- 1467 Mar, [facility] [id number] [place] [address] 28842- 0386 Feb, ADHD (attention deficit hyperactivity disorder), combined type F90.2 [facility] [id number] [place] [address] 57477- 0694 Feb, Depressive disorder, not elsewhere classified F32.9 ; Anxiety state F41.1 and ADHD (attention deficit hyperactivity disorder), combined type F90.2 [facility] [id number] [place] [address] 75075- 4909 Feb, Depressive disorder, not elsewhere classified F32.9 ; Anxiety state F41.1 and ADHD (attention deficit hyperactivity disorder), combined type F90.2 [facility] [id number] [place] [address] 30734- 3913 Feb, ADHD (attention deficit hyperactivity disorder), combined type F90.2 [facility] [address] [address] Jan, Other viral agents as the cause of diseases classified elsewhere B97.89 and Acute upper respiratory infection, unspecified J06.9 [facility] [id number] [place] [address] 26886- 6295 Jan, ADHD (attention deficit hyperactivity disorder), combined type F90.2 ; Major depressive disorder, single episode, mild F32.0 and Anxiety disorder, unspecified type F41.9 [place] [id number] [place] [address] 79654- 0157 Jan, [facility] [id number] [place] [address] 69843- 0142 Jan, ADHD (attention deficit hyperactivity disorder), combined type F90.2 ; Major depressive disorder, single episode, mild F32.0 and Anxiety disorder, unspecified type F41.9 [place] [id number] [place] [address] 46553- 1016 Dec, Irritable bowel syndrome with diarrhea K58.0 and Lower abdominal pain R10.30 [place] [id number] [place] [address] 75245- 5786 Dec, Hospital discharge follow-up Z09 ; Mesenteric adenitis I88.0 ; IBD (inflammatory bowel disease) K52.9 and Nausea R11.0 [place] [id number] [place] [address] 30151- 3871 Nov, ADHD (attention deficit hyperactivity disorder), combined type F90.2 ; Major depressive disorder, single episode, mild F32.0 and Anxiety disorder, unspecified type F41.9 [place] [id number] [place] [address] 38494- 8716 Nov, Anxiety state F41.1 ; ADHD (attention deficit hyperactivity disorder), combined type F90.2 ; Major depressive disorder, single episode, mild F32.0 and Anxiety disorder, unspecified type F41.9 [facility] [address] [address]- 4[address] Oct, Anxiety state F41.1 ; ADHD (attention deficit hyperactivity disorder), combined type F90.2 ; Major depressive disorder, single episode, mild F32.0 and Anxiety disorder, unspecified type F41.9 [facility] [id number] [place] [address] 85586- 1778 Oct, ADHD (attention deficit hyperactivity disorder), combined type F90.2 ; Major depressive disorder, single episode, mild F32.0 and Anxiety disorder, unspecified type F41.9 [place] [id number] [place] [address] 59878- 6732 Oct, Major depressive disorder, single episode, mild F32.0 ; Anxiety state F41.1 ; ADHD (attention deficit hyperactivity disorder), combined type F90.2 and Depressive disorder, not elsewhere classified F32.9 [facility] [id number] [place] [address] 57416 -0168 16 Oct, 2016 [facility] [id number] [place] [address] 81200 -1075 Oct, Cellulitis L03.90 and Plantar wart of right foot B07.0 [place] [id number] [place] [address] 93036- 8879 Aug, ADHD (attention deficit hyperactivity disorder), combined type F90.2 ; Major depressive disorder, single episode, mild F32.0 and Anxiety disorder, unspecified type F41.9 [place] [id number] [place] [address] 16844- 7019 Aug, [place] [facility] [id number] [place] [address] 00272- 7326 Jul, ADHD (attention deficit hyperactivity disorder), combined type F90.2 [facility] [id number] [place] [address] 69504- 9025 Jul, Mesenteric adenitis I88.0 [facility] [address] [address]- 97[address] June, [facility] [id number] [place] [address] 52318 -1401 June, Lower abdominal pain R10.30 [facility] [id number] [place] [address] 54993- 5105 June, [facility] [id number] [place] [address] 60695- 8582 June, ADHD (attention deficit hyperactivity disorder), combined type F90.2 and Major depressive disorder, single episode, mild F32.0 [place] [id number] [place] [address] 45996- 8667 May, [place] [id number] [place] [address] 58638- 8867 May, ADHD (attention deficit hyperactivity disorder), combined type F90.2 and Major depressive disorder, single episode, mild F32.0 [facility] [id number] [place] [address] 13856 -4930 Apr, Abdominal pain R10.9 and Gastroenteritis and colitis, viral A08.4 [place] [id number] [place] [address] 60570- 5931 Apr, [facility] [id number] [place] [address] 92921 -2993 Mar, Acute urticaria L50.8 [facility] [id number] [place] [address] 31598- 5043 Mar, [place] [id number] [place] [address] 59738- 8971 Feb, [facility] [id number] [place] [address] 99922 -5444 Feb, Gastroenteritis K52.9 [place] [id number] [place] [address] 96776- 2781 Feb, Irritant contact dermatitis due to cosmetics L24.3 [facility] [address] 02032- 0932 Jan, [facility] [address] 57396- 4119 Jan, [facility] [address] 11389- 4348 Jan, ADHD (attention deficit hyperactivity disorder), combined type F90.2 and Major depressive disorder, single episode, mild F32.0 [facility] [address] 68696 -3601 Dec, Flexural eczema L20.82 [facility] [address] 42089- 7493 Dec, Encounter for test Z32.00 [facility] [address] 37248- 9992 Dec, [facility] [address] 47457- 9302 Dec, [facility] [address] 81529- 3565 Dec, [facility] [address] 83837 -3806 Nov, Sore throat J02.9 and Pharyngitis, unspecified etiology J02.9 [facility] [id number] [place] [address] 22773- 3899 Nov, [facility] [address] 47367- 5133 Nov, [facility] [address] 73338- 6443 Nov, Generalized abdominal pain R10.84 and Slow transit constipation K59.01 [facility] [address] [id number] Nov, Pharyngitis, unspecified etiology J02.9 and Rhinitis, unspecified type J31.0 [facility] [id number] [place] [address] 08375- 3567 Oct, Depressive disorder, not elsewhere classified F32.9 and ADHD (attention deficit hyperactivity disorder), combined type F90.2 [facility] [id number] [place] [address] 45820- 7688 Oct, [facility] [id number] [place] [address] 07870- 4211 Oct, [facility] [id number] [place] [address] 06683 -8823 Oct, Strep throat J02.0 [place] [id number] [place] [address] 15474- 6765 Oct, [place] [id number] [place] [address] 06198- 2975 Oct, Well woman exam with routine gynecological exam Z01.419 and Screening for STD sexually transmitted disease Z11.3 [place] [id number] [place] [address] 28347- 1620 Sep, ADHD (attention deficit hyperactivity disorder), combined type F90.2 ; Anxiety state F41.1 and Depressive disorder, not elsewhere classified F32.9 [facility] [id number] [place] [address] 46262- 9929 Sep, ADHD (attention deficit hyperactivity disorder), combined type F90.2 and Depressive disorder, not elsewhere classified F32.9 [place] [id number] [place] [address] 46556- 2452 Aug, [place] [id number] [place] [address] 84161- 9558 Aug, ADHD (attention deficit hyperactivity disorder), combined type F90.2 and Depressive disorder, not elsewhere classified F32.9 [place] [id number] [address]- 4164 Aug, ADHD (attention deficit hyperactivity disorder), combined type F90.2 ; Anxiety state F41.1 and Depressive disorder, not elsewhere classified F32.9 [facility] [address] [address]- 9813 Aug, [facility] [id number] [place] [address] 00491- 8286 Aug, [facility] [id number] [place] [address] 70749- 1662 Jul, ADHD (attention deficit hyperactivity disorder), combined type F90.2 ; Depressive disorder, not elsewhere classified F32.9 and Anxiety state F41.1 [facility] [id number] [place] [address] 53490- 6410 Jul, [facility] [id number] [place] [address] 19149- 7022 Jul, ADHD (attention deficit hyperactivity disorder), combined type F90.2 ; Anxiety state F41.1 and Depressive disorder, not elsewhere classified F32.9 [facility] [id number] [place] [address] 91462- 3138 June, [facility] [id number] [place] [address] [id number] June, Constipation K59.00 [facility] [id number] [place] [address] 54499- 3304 May, Constipation K59.00 [facility] [id number] [place] [address] 91706 -9655 May, Irritable bowel syndrome with diarrhea K58.0 [facility] [id number] [place] [address] 03408- 4971 May, [facility] [id number] [place] [address] 79954- 7395 May, [facility] [address] [id number] [place] [address]- 9234 14 May, 2014 [facility] [address] [id number] [place] [address]- 1939 May, [facility] [place] [facility] [address] [id number] [place] [address]- 7521 Jan, [facility] [address] [id number] [place] 4912 Jan, [facility] [place] [facility] [address] [id number] [place] [address]- 6036 Jan, [facility] [place] [facility] [address] [id number] [place] [address]- 1204 Jan, [facility] [place] [facility] [address] [id number] [place] [address]- 4097 Jan, [facility] [place] [facility] [address] [id number] [place] [address]- 0538 Jan, [facility] [place] [facility] [address] [id number] [place] [address]- 0636 Nov, [facility] [place] [facility] [address] [id number] [place] [address]- 4349 Nov, [facility] [address] [id number] [place] [address]- 5480 Oct, [facility] [place] [facility] [address] [id number] [place] [address]- 8135 Oct, [facility] [place] [facility] [address] [id number] [place] [address]- 2687 Sep, [facility] [place] [facility] [address] [id number] [place] 8425 Sep, [facility] [place] [facility] [address] [id number] [place] 8792 Aug, [facility] [place] [facility] [address] [id number] [place]- 6362 Aug, [facility] [place] [facility] [address] [id number] [place] [address]- 8960 Aug, [facility] [place] [facility] [address] [id number] [place] [address]- 9178 Aug, [facility] [place] [facility] [address] [id number] [place] [address]- 3499 Aug, [facility] [place] [facility] [address] [id number] [place] [address]- 7265 Aug, [facility] [place] [facility] [address] [id number] [place] [address]- 9099 Aug, [facility] [place] [facility] [address] [id number] [place] [address]- 8581 Aug, [facility] [place] [facility] [address] [id number] [place] [address]- 2886 Jul, [facility] [place] [facility] [address] [id number] [place] [address]- 3234 Jul, [facility] [place] [facility] [address] [id number] [place] [address]- 0577 Jul, [facility] [place] [facility] [address] [id number] [place] [address]- 5758 Jul, [facility] [place] [facility] [address] [id number] [place] [address]- 7870 Jul, [facility] [place] [facility] [address] [id number] [place] [address]- 4178 Jul, [facility] [place] [facility] [address] [id number] [place] [address]- 8582 Jul, [facility] [place] [facility] [address] [id number] [place] [address]- 8194 Jul, [facility] [place] [facility] [address] [id number] [place] [address]- 1709 Jul, [facility] [place] [facility] [address] [id number] [place] [address]- 6495 June, [facility] [place] [facility] [address] [id number] [place] [address]- 8369 June, [facility] [place] [facility] [address] [id number] [place] [address]- 8316 May, [facility] [place] [facility] [address] [id number] [place] [address]- 9497 May, [facility] [place] [facility] [address] [id number] [place] [address]- 3607 May, [facility] [place] [facility] [address] [id number] [place] [address]- 1216 May, [facility] [place] [facility] [address] [id number] [place] [address]- 4397 May, [facility] [place] [facility] [address] [id number] [place] [address]- 0275 May, [facility] [place] [facility] [address] [id number] [place] [address]- 3067 May, [facility] [place] [facility] [address] [id number] [place] [address]- 5650 May, [facility] [place] [facility] [address] [id number] [place] [address]- 1614 May, [facility] [place] [facility] [address] [id number] [place] [address]- 3324 May, [facility] [place] [facility] [address] [id number] [place] [address]- 6681 May, [facility] [place] [facility] [address] [id number] [place] [address]- 6192 May, [facility] [place] [facility] [address] [id number] [place] [address]- 3764 Apr, [facility] [place] [facility] [address] [id number] [place] [address]- 9872 Apr, [facility] [place] [facility] [address] [id number] [place] [address]- 6175 Apr, [facility] [place] [facility] [address] [id number] [place] [address]- 1834 Apr, [facility] [place] [facility] [address] [id number] [place] [address]- 2877 Mar, [facility] [place] [facility] [address] [id number] [place] [address]- 1776 Mar, [facility] [place] [facility] [address] [id number] [place] [address]- 6633 Mar, [facility] [place] [facility] [address] [id number] [place] [address]- 3812 Mar, [facility] [place] [facility] [address] [id number] [place] [address]- 9968 Mar, [facility] [place] [facility] [address] [id number] [place] [address]- 7408 Mar, [facility] [place] [facility] [address] [id number] [place] [address]- 1676 Mar, [facility] [place] [facility] [address] [facility] [id number] [place] [address]- 6816 Mar, [facility] [place] [facility] [address] [facility] [id number] [place] [address]- 1654 Mar, [facility] [place] [facility] [address] [id number] [place] [address]- 4896 Mar, [facility] [place] [facility] [address] [id number] [place] [address]- 9341 14 Mar, 2013 [facility] [place] [facility] [address] [id number] [place] [address]- 0362 14 Mar, 2013 [facility] [place] [facility] [address] [facility] [id number] [place] [address] 13 Mar, 2013 [facility] [place] [facility] [address] [facility] [id number] [place] [address] 13 Mar, 2013 [facility] [place] [facility] [address] [id number] [place] [address] Mar, [facility] [place] [facility] [address] [id number] [place] [address] 2546 Mar, [facility] [place] [facility] [address] [id number] [place] [address] Mar, [facility] [place] [facility] [address] [id number] [place] [address] Mar, [facility] [place] [facility] [address] [id number] [place] [address] Mar, [facility] [place] [facility] [address] [id number] [place] [address] Mar, [facility] [place] [facility] [address] [id number] [place] [address] Feb, [facility] [place] [facility] [address] [id number] [place] [address] Feb, [facility] [place] [facility] [address] [id number] [place] [address] Feb, [facility] [place] [facility] [address] [id number] [place] [address] Feb, [facility] [place] [facility] [address] [id number] [place] [address]- [address] Feb, [facility] [place] [facility] [address] [id number] [place] [address]- [address] Feb, [facility] [place] [facility] [address] [id number] [place] [address] Feb, [facility] [place] [facility] [address] [id number] [place] [address] Feb, [facility] [place] [facility] [address] [id number] [place] [address] Feb, [facility] [place] [facility] [address] [id number] [place] [address] Feb, [facility] [place] [facility] [address] [id number] [place] [address] Feb, [facility] [place] [facility] [address] [id number] [place] [address] Feb, [facility] [place] [facility] [address] [id number] [place] [address] Feb, [facility] [place] [facility] [address] [id number] [place] [address] Feb, [facility] [place] [facility] [address] [id number] [place] [address] Feb, [facility] [place] [facility] [address] [id number] [place] [address] Feb, [facility] [place] [facility] [address] [id number] [place] [address] Feb, [facility] [place] [facility] [address] [id number] [place] [address] Feb, [facility] [place] [facility] [address] [id number] [place] [address] Feb, [facility] [place] [facility] [address] [id number] [place] [address] Feb, [facility] [place] [facility] [address] [address] [id number] [address] Feb, [facility] [place] [facility] [address] [id number] [place] [address] Feb, [facility] [place] [facility] [address] [id number] [place] [address] Feb, [facility] [place] [facility] [address] [id number] [place] [address] Jan, [facility] [place] [facility] [address] [id number] [place] [address] 24 Jan, 2013 [facility] [address] [id number] [place] [address] 19 Jan, 2013 [facility] [address] [id number] [place] [address] 18 Jan, 2013 [facility] [address] [id number] [place] [address] 18 Jan, 2013 [facility] [place] [facility] [address] [id number] [place] [address] 18 Jan, 2013 [facility] [address] [id number] [place] [address] 18 Jan, 2013 [facility] [address] [id number] [place] [address] 17 Jan, 2013 [facility] [address] [id number] [place] [address] 17 Jan, 2013 [facility] [address] [id number] [place] [address] Jan, [facility] [address] [id number] [place] [address] Jan, [facility] [address] [facility] [id number] [place] [address] Jan, [facility] [address] [id number] [place] [address] Jan, [facility] [place] [facility] [address] [id number], [place] [address] Dec, [facility] [place] [facility] [address] [id number] [place] [address] Dec, [facility] [place] [facility] [address] [facility] [id number] [place] [address] Dec, [facility] [place] [facility] [address] [facility] [id number] [place] [address] Dec, [facility] [place] [facility] [address] [id number], [place] [address] Dec, [facility] [address] [facility] [id number], [place] [address] Dec, [facility] [address] [facility] [id number][place] [address] Nov, [facility] [address] [facility] [id number], [place] [address] Nov, [facility] [address] [id number][place] [address] Nov, [facility] [address] [facility] [id number][place] [address] Nov, [facility] [address] [facility] [id number], [place] [address] Nov, [facility] [address] [facility] [id number], [place] [address] Nov, [facility] [address] [facility] [id number], [place] [address] Oct, [facility] [address] [facility] [id number], [place] [address] Oct, [facility] [address] [facility] [id number], [place] [address] Oct, [facility] [address] [facility] [id number], [place] [address] Oct, [facility] [address] [facility] [id number][place] [address] Oct, [facility] [address] [facility] [id number][place] [address] 18 Oct, 2012 [facility] [address] [facility] [id number][place] [address] 13 Oct, 2012 IMMUNIZATIONS No Known Immunizations SOCIAL HISTORY Never Assessed REASON FOR VISIT Med refill PLAN OF CARE VITAL SIGNS MEDICATIONS Medication Instructions Dosage Frequency Start Date End Date Duration Status Protonix 40 mg Orally Once a day 1 tablet 24h 90 days Active RESULTS No Results PROCEDURES No [...]
--- OUTSIDE RECORDS SUMMARY | 2017-12-03 14:07 | XMS REPORT ---
Author Author HARIKA RODRIGUEZ Organization [facility] Address [address] [place] [address] Care Team Providers Care Clinic Assistant Name Role Phone JENNIFERHARIKA Unavailable PROBLEMS Type Condition ICD9-CM Code [id number] Code Onset Dates Condition Status SNOMED Code Problem Anxiety state F41.1 Active 616500645 Problem Depressive disorder, not elsewhere classified F32.9 Active 46248308 Problem ADHD (attention deficit hyperactivity disorder), combined type F90.2 Active 22290966 Problem Irritable bowel syndrome with diarrhea K58.0 Active 448652470 Problem Plantar wart of right foot B07.0 Active [id number] Problem Slow transit constipation K59.01 Active 13151260 Problem Rhinitis, unspecified type J31.0 Active 15114165 Problem Anxiety disorder, unspecified type F41.9 Active 630247352 Problem Major depressive disorder, single episode, mild F32.0 Active [id number] ALLERGIES No Known Allergies ENCOUNTERS Encounter Location Date Diagnosis [facility] [id number] [place] [address] 44769- 6932 Sep, [facility] [id number] [place] [address] 75251- 3153 Aug, ADHD (attention deficit hyperactivity disorder), combined type F90.2 ; Major depressive disorder, single episode, mild F32.0 and Anxiety disorder, unspecified type F41.9 [facility] [id number] [place] [address] 07093 -1010 Aug, Sore throat J02.9 ; Other specified bacterial agents as the cause of diseases classified elsewhere B96.89 and Acute tonsillitis due to other specified organisms J03.80 [facility] [id number] [place] [address] 73188- 6514 Aug, ADHD (attention deficit hyperactivity disorder), combined type F90.2 [facility] [address] [address] 3235 Jul, ADHD (attention deficit hyperactivity disorder), combined type F90.2 [facility] [address] [address] 5983 June, ADHD (attention deficit hyperactivity disorder), combined type F90.2 ; Major depressive disorder, single episode, mild F32.0 and Anxiety disorder, unspecified type F41.9 [facility] [id number] [address] 8760 June, [facility] [id number] [address] 1189 June, ADHD (attention deficit hyperactivity disorder), combined type F90.2 [facility] [address] [address] May, [facility] [address] [address] 1384 May, ADHD (attention deficit hyperactivity disorder), combined type F90.2 ; Major depressive disorder, single episode, mild F32.0 and Anxiety disorder, unspecified type F41.9 [facility] [address] [address] 150[address] May, Anxiety disorder, unspecified type F41.9 [facility] [address] [address] 1727 Apr, [facility] [id number] [address] 3485 Apr, Anxiety disorder, unspecified type F41.9 [facility] [address] [address]- 9018 Apr, Anxiety disorder, unspecified type F41.9 ; Major depressive disorder, single episode, mild F32.0 and ADHD (attention deficit hyperactivity disorder), combined type F90.2 [facility] [address] [address] 8344 Apr, [facility] [id number] [place] [address] 08214- 4789 Apr, ADHD (attention deficit hyperactivity disorder), combined type F90.2 ; Anxiety state F41.1 ; Depressive disorder, not elsewhere classified F32.9 ; Major depressive disorder, single episode, mild F32.0 and Anxiety disorder, unspecified type F41.9 [facility] [id number] [place] [address] 77553- 9318 Mar, ADHD (attention deficit hyperactivity disorder), combined type F90.2 [facility] [id number] [place] [address] 70141- 8164 20 Mar, 2017 Nausea R11.0 [facility] [id number] [place] [address] 82600- 8841 13 Mar, 2017 Screening for STD sexually transmitted disease Z11.3 ; Vaginal candidiasis B37.3 and Irritable bowel syndrome with diarrhea K58.0 [place] [id number] [place] [address] 34073- 1891 Mar, [facility] [facility] [id number] [place] [address] 48188- 9464 Feb, ADHD (attention deficit hyperactivity disorder), combined type F90.2 [facility] [id number] [place] [address] 34793- 4879 Feb, Depressive disorder, not elsewhere classified F32.9 ; Anxiety state F41.1 and ADHD (attention deficit hyperactivity disorder), combined type F90.2 [facility] [id number] [place] [address] 02411- 5685 Feb, Depressive disorder, not elsewhere classified F32.9 ; Anxiety state F41.1 and ADHD (attention deficit hyperactivity disorder), combined type F90.2 [facility] [id number] [place] [address] 80638- 2769 Feb, ADHD (attention deficit hyperactivity disorder), combined type F90.2 [facility] [address] [address] Jan, Other viral agents as the cause of diseases classified elsewhere B97.89 and Acute upper respiratory infection, unspecified J06.9 [facility] [id number] [place] [address] 99471- 6370 Jan, ADHD (attention deficit hyperactivity disorder), combined type F90.2 ; Major depressive disorder, single episode, mild F32.0 and Anxiety disorder, unspecified type F41.9 [place] [id number] [place] [address] 12245- 7382 Jan, [facility] [id number] [place] [address] 85264- 5027 Jan, ADHD (attention deficit hyperactivity disorder), combined type F90.2 ; Major depressive disorder, single episode, mild F32.0 and Anxiety disorder, unspecified type F41.9 [facility] [id number] [place] [address] 50519- 1233 Dec, Irritable bowel syndrome with diarrhea K58.0 and Lower abdominal pain R10.30 [facility] [id number] [place] [address] 01060- 9938 Dec, Hospital discharge follow-up Z09 ; Mesenteric adenitis I88.0 ; IBD (inflammatory bowel disease) K52.9 and Nausea R11.0 [place] [id number] [place] [address] 23853- 7733 Nov, ADHD (attention deficit hyperactivity disorder), combined type F90.2 ; Major depressive disorder, single episode, mild F32.0 and Anxiety disorder, unspecified type F41.9 [place] [id number] [place] [address] 38257- 9308 Nov, Anxiety state F41.1 ; ADHD (attention deficit hyperactivity disorder), combined type F90.2 ; Major depressive disorder, single episode, mild F32.0 and Anxiety disorder, unspecified type F41.9 [facility] [address] [address]- 8854 Oct, Anxiety state F41.1 ; ADHD (attention deficit hyperactivity disorder), combined type F90.2 ; Major depressive disorder, single episode, mild F32.0 and Anxiety disorder, unspecified type F41.9 [facility] [id number] [place] [address] 77649- 2845 Oct, ADHD (attention deficit hyperactivity disorder), combined type F90.2 ; Major depressive disorder, single episode, mild F32.0 and Anxiety disorder, unspecified type F41.9 [facility] [id number] [place] [address] 53570- 5707 Oct, Major depressive disorder, single episode, mild F32.0 ; Anxiety state F41.1 ; ADHD (attention deficit hyperactivity disorder), combined type F90.2 and Depressive disorder, not elsewhere classified F32.9 [facility] [id number] [place] [address] 62376 -8466 16 Oct, 2016 [facility] [id number] [place] [address] 78238 -2055 Oct, Cellulitis L03.90 and Plantar wart of right foot B07.0 [facility] [id number] [place] [address] 95515- 3413 Aug, ADHD (attention deficit hyperactivity disorder), combined type F90.2 ; Major depressive disorder, single episode, mild F32.0 and Anxiety disorder, unspecified type F41.9 [facility] [id number] [place] [address] 48466- 9827 Aug, [facility] [id number] [place] [address] 78553- 8657 Jul, ADHD (attention deficit hyperactivity disorder), combined type F90.2 [facility] [id number] [place] [address] 76156- 5278 Jul, Mesenteric adenitis I88.0 [facility] [id number] [place] [address] 89644- 6152 June, [facility] [id number] [place] [address] 19444 -2131 June, Lower abdominal pain R10.30 [facility] [id number] [place] [address] 76245- 8014 June, [facility] [id number] [place] [address] 14909- 5601 June, ADHD (attention deficit hyperactivity disorder), combined type F90.2 and Major depressive disorder, single episode, mild F32.0 [facility] [id number] [place] [address] 11575- 5063 May, [place] [id number] [place] [address] 63449- 4992 May, ADHD (attention deficit hyperactivity disorder), combined type F90.2 and Major depressive disorder, single episode, mild F32.0 [facility] [id number] [place] [address] 43548 -6916 Apr, Abdominal pain R10.9 and Gastroenteritis and colitis, viral A08.4 [place] [id number] [place] [address] 46468- 0645 Apr, [facility] [id number] [place] [address] 11368 -5123 Mar, Acute urticaria L50.8 [facility] [id number] [place] [address] 81345- 8933 Mar, [facility] [id number] [place] [address] 22701- 1276 Feb, [facility] [id number] [place] [address] 12030 -0872 Feb, Gastroenteritis K52.9 [place] [address] 64751- 3613 Feb, Irritant contact dermatitis due to cosmetics L24.3 [facility] [id number] [place] [address] 19750- 1386 Jan, [facility] [address] 81557- 7490 Jan, [facility] [address] 96719- 4211 Jan, ADHD (attention deficit hyperactivity disorder), combined type F90.2 and Major depressive disorder, single episode, mild F32.0 [facility] [address] 62200 -8811 Dec, Flexural eczema L20.82 [facility] [address] 12118- 2352 Dec, Encounter for test Z32.00 [facility] [address] 34395- 8172 Dec, [facility] [address] 40265- 8048 Dec, [facility] [address] 75663- 9993 Dec, [facility] [address] 54875 -1305 Nov, Sore throat J02.9 and Pharyngitis, unspecified etiology J02.9 [facility] [id number] [place] [address] 59728- 3468 Nov, [place] [address] 61276- 3628 Nov, [facility] [address] 44975- 6583 Nov, Generalized abdominal pain R10.84 and Slow transit constipation K59.01 [facility] [address] [place] [id number] Nov, Pharyngitis, unspecified etiology J02.9 and Rhinitis, unspecified type J31.0 [place] [id number] [place] [address] 45437- 9913 Oct, Depressive disorder, not elsewhere classified F32.9 and ADHD (attention deficit hyperactivity disorder), combined type F90.2 [place] [id number] [place] [address] 47190- 4805 Oct, [facility] [id number] [place] [address] 89356- 4737 Oct, [facility] [id number] [place] [address] 28236 -5071 Oct, Strep throat J02.0 [place] [id number] [place] [address] 90470- 1910 Oct, [place] [id number] [place] [address] 59278- 8979 Oct, Well woman exam with routine gynecological exam Z01.419 and Screening for STD sexually transmitted disease Z11.3 [place] [id number] [place] [address] 83872- 3046 Sep, ADHD (attention deficit hyperactivity disorder), combined type F90.2 ; Anxiety state F41.1 and Depressive disorder, not elsewhere classified F32.9 [place] [id number] [place] [address] 95066- 8641 Sep, ADHD (attention deficit hyperactivity disorder), combined type F90.2 and Depressive disorder, not elsewhere classified F32.9 [place] [id number] [place] [address] 14235- 4691 Aug, [place] [id number] [place] [address] 42033- 7496 Aug, ADHD (attention deficit hyperactivity disorder), combined type F90.2 and Depressive disorder, not elsewhere classified F32.9 [place] [id number] [address]- 5742 Aug, ADHD (attention deficit hyperactivity disorder), combined type F90.2 ; Anxiety state F41.1 and Depressive disorder, not elsewhere classified F32.9 [facility] [id number] [address]- 8466 Aug, [facility] [id number] [place] [address] 82589- 1955 Aug, [facility] [id number] [place] [address] 29643- 1537 Jul, ADHD (attention deficit hyperactivity disorder), combined type F90.2 ; Depressive disorder, not elsewhere classified F32.9 and Anxiety state F41.1 [facility] [id number] [place] [address] 52577- 9467 Jul, [facility] [id number] [place] [address] 05941- 3685 Jul, ADHD (attention deficit hyperactivity disorder), combined type F90.2 ; Anxiety state F41.1 and Depressive disorder, not elsewhere classified F32.9 [facility] [id number] [place] [address] 68385- 8523 June, [facility] [address] [address] June, Constipation K59.00 [facility] [id number] [place] [address] 48929- 5582 May, Constipation K59.00 [facility] [address] [place] [address] 95865 -0839 May, Irritable bowel syndrome with diarrhea K58.0 [facility] [id number] [place] [address] 40494- 1609 May, [facility] [id number] [place] [address] 54757- 3557 May, [facility] [address] [facility] [id number] [place] [address]- 0449 14 May, 2014 [facility] [place] [facility] [address] [id number] [place] [address]- 8925 May, [facility] [place] [facility] [address] [id number] [place]- 1145 Jan, [facility] [place] [facility] [address] [id number] [place] [address]- 8901 Jan, [facility] [place] [facility] [address] [id number] [place] [address]- 2777 Jan, [facility] [place] [facility] [address] [id number] [place] 8389 Jan, [facility] [place] [facility] [address] [id number] [place] [address]- 1410 Jan, [facility] [place] [facility] [address] [id number] [place] [address]- 7226 Jan, [facility] [place] [facility] [address] [id number] [place] [address]- 0715 Nov, [facility] [place] [facility] [address] [id number] [place] [address]- 7505 Nov, [facility] [place] [facility] [address] [id number] [place] [address]- 8723 Oct, [facility] [place] [facility] [address] [id number] [place] [address]- 2028 Oct, [facility] [place] [facility] [address] [id number] [place] [address]- 6413 Sep, [facility] [place] [facility] [address] [id number] [place] [address]- 9528 Sep, [facility] [place] [facility] [address] [id number] [place] [address]- 9923 Aug, [facility] [place] [facility] [address] [id number] [place] [address]- 4984 Aug, [facility] [place] [facility] [address] [id number] [place] [address]- 7860 Aug, [facility] [place] [facility] [address] [id number] [place] [address]- 1246 Aug, [facility] [place] [facility] [address] [id number] [place] [address]- 5612 Aug, [facility] [place] [facility] [address] [id number] [place] [address]- 2621 Aug, [facility] [place] [facility] [address] [id number] [place] [address]- 5713 Aug, [facility] [place] [facility] [address] [id number] [place] [address]- 5861 Aug, [facility] [place] [facility] [address] [id number] [place] [address]- 8581 Jul, [facility] [place] [facility] [address] [id number] [place] [address]- 6851 Jul, [facility] [place] [facility] [address] [id number] [place] [address]- 3838 Jul, [facility] [place] [facility] [address] [id number] [place] [address]- 9315 Jul, [facility] [place] [facility] [address] [id number] [place] [address]- 7667 Jul, [facility] [place] [facility] [address] [id number], [place] [address]- 5895 Jul, [facility] [place] [facility] [address] [id number] [place] [address]- 1245 Jul, [facility] [place] [facility] [address] [id number] [place] [address]- 1132 Jul, [facility] [place] [facility] [address] [id number] [place] [address]- 7406 Jul, [facility] [place] [facility] [address] [id number] [place] [address]- 7342 June, [facility] [place] [facility] [address] [id number] [place] [address]- 5063 June, [facility] [place] [facility] [address] [id number] [place] [address]- 3448 May, [facility] [place] [facility] [address] [id number] [place] [address]- 2752 May, [facility] [place] [facility] [address] [id number] [place] [address]- 6164 May, [facility] [place] [facility] [address] [id number] [place] [address]- 4404 May, [facility] [place] [facility] [address] [id number] [place] [address]- 1694 May, [facility] [place] [facility] [address] [id number] [place] [address]- 3413 May, [facility] [place] [facility] [address] [id number] [place] [address]- 1641 May, [facility] [place] [facility] [address] [id number] [place] [address]- 1222 May, [facility] [place] [facility] [address] [id number] [place] [address]- 5590 May, [facility] [place] [facility] [address] [id number] [place] [address]- 1984 May, [facility] [place] [facility] [address] [id number] [place] [address]- 5669 May, [facility] [place] [facility] [address] [id number] [place] [address]- 3818 May, [facility] [place] [facility] [address] [id number] [place] [address]- 1346 Apr, [facility] [place] [facility] [address] [id number] [place] [address]- 5891 Apr, [facility] [place] [facility] [address] [id number] [place] [address]- 3627 Apr, [facility] [place] [facility] [address] [id number] [place] [address]- 9610 Apr, [facility] [place] [facility] [address] [id number] [place] [address]- 6729 Mar, [facility] [place] [facility] [address] [id number] [place] [address]- 8505 Mar, [facility] [place] [facility] [address] [id number] [place] [address]- 6388 Mar, [facility] [place] [facility] [address] [id number] [place] [address]- 2990 Mar, [facility] [place] [facility] [address] [facility] [id number] [place] [address]- 7375 Mar, [facility] [place] [facility] [address] [id number] [place] [address]- 7510 Mar, [facility] [place] [facility] [address] [id number] [place] [address]- 5972 Mar, [facility] [place] [facility] [address] [facility] [id number] [place] [address]- 4703 Mar, [facility] [place] [facility] [address] [facility] [id number] [place] [address]- 1460 Mar, [facility] [place] [facility] [address] [id number] [place] [address]- 2542 Mar, [facility] [place] [facility] [address] [id number] [place] [address]- 3290 14 Mar, 2013 [facility] [place] [facility] [address] [id number] [place] [address]- 5097 14 Mar, 2013 [facility] [place] [facility] [address] [facility] [id number] [place] [address]- 0118 13 Mar, 2013 [facility] [place] [facility] [address] [id number] [place] [address]- 4306 13 Mar, 2013 [facility] [place] [facility] [address] [id number] [place] [address]- 7896 Mar, [facility] [place] [facility] [address] [id number] [place] [address]- 1776 Mar, [facility] [place] [facility] [address] [id number] [place] [address]- 7396 Mar, [facility] [place] [facility] [address] [id number] [place] [address]- 1547 Mar, [facility] [place] [facility] [address] [id number] [place] [address]- 3806 Mar, [facility] [place] [facility] [address] [id number] [place] [address]- 0273 Mar, [facility] [place] [facility] [address] [id number] [place] [address] Feb, [facility] [place] [facility] [address] [id number] [place] [address] Feb, [facility] [place] [facility] [address] [id number] [place] [address] Feb, [facility] [place] [facility] [address] [id number] [place] [address] Feb, [facility] [place] [facility] [address] [id number] [place] [address] Feb, [facility] [place] [facility] [address] [id number] [place] [address] Feb, [facility] [place] [facility] [address] [id number] [place] [address] Feb, [facility] [place] [facility] [address] [id number] [place] [address]- [address] Feb, [facility] [place] [facility] [address] [id number] [place] [address] Feb, [facility] [place] [facility] [address] [id number] [place] [address] Feb, [facility] [place] [facility] [address] [id number] [place] [address] Feb, [facility] [place] [facility] [address] [id number] [place] [address] Feb, [facility] [place] [facility] [address] [id number] [place] [address] Feb, [facility] [place] [facility] [address] [id number] [place] [address]- [address] Feb, [facility] [place] [facility] [address] [id number] [place] [address]- [address] Feb, [facility] [place] [facility] [address] [id number] [place] [address]- [address] Feb, [facility] [place] [facility] [address] [id number] [place] [address]- [address] Feb, [facility] [place] [facility] [address] [id number] [place] [address]- [address] Feb, [facility] [place] [facility] [address] [id number] [place] [address]- [address] Feb, [facility] [place] [facility] [address] [id number], [place] [address] Feb, [facility] [place] [facility] [address] [id number], [place] [address] Feb, [facility] [place] [facility] [address] [id number] [place] [address]- [address] Feb, [facility] [place] [facility] [address] [id number] [place] [address]- [address] Feb, [facility] [place] [facility] [address] [id number] [place] [address] Jan, [facility] [place] [facility] [address] [id number] [place] [address] 24 Jan, 2013 [facility] [address] [id number] [place] [address] 19 Jan, 2013 [facility] [address] [id number] [place] 18 Jan, 2013 [facility] [address] [id number] [place] [address] 18 Jan, 2013 [facility] [address] [id number] [place] [address] 18 Jan, 2013 [facility] [address] [id number] [place] [address] 18 Jan, 2013 [facility] [address] [id number] [place] [address] 17 Jan, 2013 [facility] [address] [id number] [place] [address] 17 Jan, 2013 [facility] [address] [id number] [place] [address] Jan, [facility] [address] [id number] [place] [address] Jan, [facility] [address] [facility] [id number] [place] [address] 04 Jan, 2013 [facility] [address] [id number] [place] [address] Jan, [facility] [address] [id number] [place] [address] Dec, [facility] [address] [id number] [place] [address] Dec, [facility] [address] [id number] [place] [address] Dec, [facility] [address] [id number] [place] [address] Dec, [facility] [address] [id number], [place] [address] Dec, [facility] [address] [facility] [id number], [place] [address] Dec, [facility] [address] [facility] [id number], [place] [address] Nov, [facility] [address] [facility] [id number], [place] [address] Nov, [facility] [address] [id number], [place] [address] Nov, [facility] [address] [facility] [id number], [place] [address] Nov, [facility] [address] [facility] [id number], [place] [address] Nov, [facility] [address] [facility] [id number], [place] [address] Nov, [facility] [address] [facility] [id number], [place] [address] 28 Oct, 2012 [facility] [address] [facility] [id number], [place] [address] Oct, [facility] [address] [facility] [id number], [place] [address] 26 Oct, 2012 [facility] [address] [facility] [id number], [place] [address] 25 Oct, 2012 [facility] [address] [facility] [id number], [place] [address] Oct, [facility] [address] [facility] [id number], [place] [address] 18 Oct, 2012 [facility] [address] [facility] [id number], [place] [address] 13 Oct, 2012 IMMUNIZATIONS No Known Immunizations SOCIAL HISTORY Never Assessed REASON FOR VISIT f/u Carlene PLAN OF CARE Activity Details Follow Up 4 Weeks Reason: f/u VITAL SIGNS Height 59 in 2017-06-12 Weight 148.1 lbs 2017-06-12 Heart Rate 80 bpm 2017-06-12 Respiratory Rate 18 2017-06-12 BMI 29.91 kg/m2 2017-06-12 Blood pressure systolic 112 mmHg 2017-06-12 Blood pressure diastolic 74 mmHg 2017-06-12 MEDICATIONS Medication Instructions Dosage Frequency Start Date End Date Duration Status HydrOXYzine HCl 25 MG Orally three times a day as needed for anxiety 1 tablet as needed Jan, Active Venlafaxine HCl ER 150 mg Orally Once a day 1 capsule with food 24h Active Protonix 40 MG Orally Once a day 1 tablet 24h Active Diflucan 150 MG Orally Once a day 1 tablet 24h Mar, 1 dose Not -Taking Ritalin LA 30 MG Orally Once a day 1 capsule in the morning 24h May, 28 days Active Ondansetron 4 MG Orally every 8 hrs prn 1 tablet on the tongue and allow to dissolve Dec, 14 days Not-Taking Effexor XR 75 MG Orally Once a day 1 capsule 24h May, 30 day(s ) Active Promethazine HCl 25 MG Orally every 4 hrs 1 tablet as needed 4h Not-Taking RESULTS No Results PROCEDURES No Known procedures [...]
--- OUTSIDE RECORDS SUMMARY | 2017-12-03 14:08 | XMS REPORT ---
Author Author VESTA JOSE Organization [facility] Address [address] [place] [address] Care Team Providers Care Testing And Regulating Chief Name Role Phone HORACIOGURU CHAMPAGNEA Unavailable PROBLEMS Type Condition ICD9-CM Code [id number] Code Onset Dates Condition Status SNOMED Code Problem Anxiety state F41.1 Active 809181701 Problem Depressive disorder, not elsewhere classified F32.9 Active 64749845 Problem ADHD (attention deficit hyperactivity disorder), combined type F90.2 Active 32620417 Problem Irritable bowel syndrome with diarrhea K58.0 Active 322420552 Problem Plantar wart of right foot B07.0 Active [id number] Problem Slow transit constipation K59.01 Active 57235254 Problem Rhinitis, unspecified type J31.0 Active 03134578 Problem Anxiety disorder, unspecified type F41.9 Active 824419252 Problem Major depressive disorder, single episode, mild F32.0 Active 06001208 ALLERGIES No Information ENCOUNTERS Encounter Location Date Diagnosis [place] [id number] [place] [address] 44806- 1833 Aug, ADHD (attention deficit hyperactivity disorder), combined type F90.2 [facility] [id number] [place] [address] 46267- 7494 Jul, ADHD (attention deficit hyperactivity disorder), combined type F90.2 [facility] [address], [place] [address] June, ADHD (attention deficit hyperactivity disorder), combined type F90.2 ; Major depressive disorder, single episode, mild F32.0 and Anxiety disorder, unspecified type F41.9 [facility] [address], [place] [address] June, [facility] [id number] [address] 6272 June, ADHD (attention deficit hyperactivity disorder), combined type F90.2 [facility] [id number] [address] 3959 May, [facility] [address], [place] [address] 8[address] May, ADHD (attention deficit hyperactivity disorder), combined type F90.2 ; Major depressive disorder, single episode, mild F32.0 and Anxiety disorder, unspecified type F41.9 [facility] [id number] [address] May, Anxiety disorder, unspecified type F41.9 [facility] [id number] [address] 2[address] Apr, [facility] [id number] [place] [address] 21222- 8912 Apr, Anxiety disorder, unspecified type F41.9 [facility] [address], [place] [address] 0[address] Apr, Anxiety disorder, unspecified type F41.9 ; Major depressive disorder, single episode, mild F32.0 and ADHD (attention deficit hyperactivity disorder), combined type F90.2 [facility] [address], [place] [address] 1587 Apr, [facility] [address] [address] Apr, ADHD (attention deficit hyperactivity disorder), combined type F90.2 ; Anxiety state F41.1 ; Depressive disorder, not elsewhere classified F32.9 ; Major depressive disorder, single episode, mild F32.0 and Anxiety disorder, unspecified type F41.9 [facility] [address], [place] [address] 7949 Mar, ADHD (attention deficit hyperactivity disorder), combined type F90.2 [facility] [address] [id number] [place] [address] 38730- 9415 20 Mar, 2017 Nausea R11.0 [facility] [address] [address]01 13 Mar, 2017 Screening for STD sexually transmitted disease Z11.3 ; Vaginal candidiasis B37.3 and Irritable bowel syndrome with diarrhea K58.0 [place] [address] [place] [id number] [place] [address] 45771- 0136 04 Mar, 2017 [facility] [id number] [place] [address] 85891- 2138 Feb, ADHD (attention deficit hyperactivity disorder), combined type F90.2 [place] [address] [place] [id number] [place] [address] 64039- 2395 Feb, Depressive disorder, not elsewhere classified F32.9 ; Anxiety state F41.1 and ADHD (attention deficit hyperactivity disorder), combined type F90.2 [place] [address] [place] [id number] [place] [address] 94420- 8260 Feb, Depressive disorder, not elsewhere classified F32.9 ; Anxiety state F41.1 and ADHD (attention deficit hyperactivity disorder), combined type F90.2 [place] [address] [place] [id number] [place] [address] 14645- 5682 Feb, ADHD (attention deficit hyperactivity disorder), combined type F90.2 [facility] [id number] [place] [address] 86674 -7382 Jan, Other viral agents as the cause of diseases classified elsewhere B97.89 and Acute upper respiratory infection, unspecified J06.9 [facility] [address] [place] [id number] [place] [address] 85639- 0666 Jan, ADHD (attention deficit hyperactivity disorder), combined type F90.2 ; Major depressive disorder, single episode, mild F32.0 and Anxiety disorder, unspecified type F41.9 [place] [address] [place] [id number] [place] [address] 09575- 9027 Jan, [place] [address], [place] [address]- 0882 Jan, ADHD (attention deficit hyperactivity disorder), combined type F90.2 ; Major depressive disorder, single episode, mild F32.0 and Anxiety disorder, unspecified type F41.9 [place] [address] [place] [id number] [place] [address] 93353- 6059 Dec, Irritable bowel syndrome with diarrhea K58.0 and Lower abdominal pain R10.30 [place] [address] [place] [id number] [place] [address] 65822- 8746 Dec, Hospital discharge follow-up Z09 ; Mesenteric adenitis I88.0 ; IBD (inflammatory bowel disease) K52.9 and Nausea R11.0 [place] [address] [place] [id number] [place] [address] 83563- 1736 Nov, ADHD (attention deficit hyperactivity disorder), combined type F90.2 ; Major depressive disorder, single episode, mild F32.0 and Anxiety disorder, unspecified type F41.9 [place] [address] [place] [id number] [place] [address] 15013- 3455 Nov, Anxiety state F41.1 ; ADHD (attention deficit hyperactivity disorder), combined type F90.2 ; Major depressive disorder, single episode, mild F32.0 and Anxiety disorder, unspecified type F41.9 [place] [id number] [place] [address] 95695- 1068 Oct, Anxiety state F41.1 ; ADHD (attention deficit hyperactivity disorder), combined type F90.2 ; Major depressive disorder, single episode, mild F32.0 and Anxiety disorder, unspecified type F41.9 [place] [address] [place] [id number] [place] [address] 48067- 5454 Oct, ADHD (attention deficit hyperactivity disorder), combined type F90.2 ; Major depressive disorder, single episode, mild F32.0 and Anxiety disorder, unspecified type F41.9 [place] [address] [place] [id number] [place] [address] 19778- 8296 Oct, Major depressive disorder, single episode, mild F32.0 ; Anxiety state F41.1 ; ADHD (attention deficit hyperactivity disorder), combined type F90.2 and Depressive disorder, not elsewhere classified F32.9 [facility] [id number] [place] [address] 43176 -5351 16 Oct, 2016 [facility] [address] [place] [id number] [place] [address] 41706 -4661 Oct, Cellulitis L03.90 and Plantar wart of right foot B07.0 [facility] [address] [place] [id number] [place] [address] 37571- 1499 Aug, ADHD (attention deficit hyperactivity disorder), combined type F90.2 ; Major depressive disorder, single episode, mild F32.0 and Anxiety disorder, unspecified type F41.9 [facility] [address] [id number] [place] [address] 02336- 5350 Aug, [facility] [address] [place] [id number] [place] [address] 03926- 7236 Jul, ADHD (attention deficit hyperactivity disorder), combined type F90.2 [place] [address] [place] [id number] [place] [address] 80922- 8940 Jul, Mesenteric adenitis I88.0 [facility] [address] [place] [id number] [place] [address] 50421- 6470 June, [facility] [address] [place] [id number] [place] [address] 17642 -5809 June, Lower abdominal pain R10.30 [facility] [address] [place] [id number] [place] [address] 29019- 7023 June, [facility] [address] [place] [id number] [place] [address] 90321- 0765 June, ADHD (attention deficit hyperactivity disorder), combined type F90.2 and Major depressive disorder, single episode, mild F32.0 [place] [address] [place] [id number] [place] [address] 02517- 6566 May, [facility] [address] [place] [id number] [place] [address] 89052- 7661 May, ADHD (attention deficit hyperactivity disorder), combined type F90.2 and Major depressive disorder, single episode, mild F32.0 [facility] [address] [place] [id number] [place] [address] 92618 -5229 Apr, Abdominal pain R10.9 and Gastroenteritis and colitis, viral A08.4 [place] [address] [place] [id number] [place] [address] 64223- 3288 Apr, [facility] [address] 13793 -5969 Mar, Acute urticaria L50.8 [place] [address] [place] [id number] [place] [address] 37974- 0780 Mar, [facility] [address] [place] [id number] [place] [address] 02108- 2767 Feb, [facility] [address] [place] [id number] [place] [address] 87122 -2917 Feb, Gastroenteritis K52.9 [facility] [address] [place] [id number] [place] [address] 00835- 3395 Feb, Irritant contact dermatitis due to cosmetics L24.3 [place] [address] [place] [id number] [place] [address] 83802- 3388 Jan, [place] [address] [place] [id number] [place] [address] 25989- 0057 Jan, [place] [address] [place] [id number] [place] [address] 98781- 3502 Jan, ADHD (attention deficit hyperactivity disorder), combined type F90.2 and Major depressive disorder, single episode, mild F32.0 [facility] [address] [place] [id number] [place] [address] 98973 -1692 Dec, Flexural eczema L20.82 [facility] [address] [place] [id number] [place] [address] 51591- 7099 Dec, Encounter for test Z32.00 [facility] [address] [id number] [place] [address] 64180- 7561 Dec, [facility] [address] [place] [id number] [place] [address] 40436- 3467 Dec, [facility] [address] 16355- 8690 Dec, [facility] [address] 32365 -9299 Nov, Sore throat J02.9 and Pharyngitis, unspecified etiology J02.9 [facility] [address] 70159- 9868 Nov, [facility] [address] 46927- 8965 Nov, [facility] [address] 46190- 4436 Nov, Generalized abdominal pain R10.84 and Slow transit constipation K59.01 [facility] [address] [place] [id number] [place] [address] [id number] 05 Nov, 2015 Pharyngitis, unspecified etiology J02.9 and Rhinitis, unspecified type J31.0 [facility] [address] [place] [id number] [place] [address] 00837- 2069 Oct, Depressive disorder, not elsewhere classified F32.9 and ADHD (attention deficit hyperactivity disorder), combined type F90.2 [facility] [address] 85566- 7406 Oct, [facility] [address] [place] [id number] [place] [address] 15283- 5223 Oct, [facility] [address] [place] [address] -0130 20 Oct, 2015 Strep throat J02.0 [facility] [address] [place] [id number] [place] [address] 82731- 4708 Oct, [facility] [address] [place] [id number] [place] [address] 98297- 8586 Oct, Well woman exam with routine gynecological exam Z01.419 and Screening for STD sexually transmitted disease Z11.3 [place] [address] [place] [id number] [place] [address] 83238- 8173 Sep, ADHD (attention deficit hyperactivity disorder), combined type F90.2 ; Anxiety state F41.1 and Depressive disorder, not elsewhere classified F32.9 [place] [address] [place] [id number] [place] [address] 35607- 6759 Sep, ADHD (attention deficit hyperactivity disorder), combined type F90.2 and Depressive disorder, not elsewhere classified F32.9 [place] [address] [place] [id number] [place] [address] 07010- 7627 Aug, [facility] [address] [place] [id number] [place] [address] 00460- 9485 Aug, ADHD (attention deficit hyperactivity disorder), combined type F90.2 and Depressive disorder, not elsewhere classified F32.9 [place] [address] [place] [address] 35718- 8967 Aug, ADHD (attention deficit hyperactivity disorder), combined type F90.2 ; Anxiety state F41.1 and Depressive disorder, not elsewhere classified F32.9 [facility] [address], [place] [address]- 2695 Aug, [facility] [address] [place] [id number] [place] [address] 14562- 8498 Aug, [facility] [address] [place] [address] 32262- 9275 Jul, ADHD (attention deficit hyperactivity disorder), combined type F90.2 ; Depressive disorder, not elsewhere classified F32.9 and Anxiety state F41.1 [facility] [address] [id number] [place] [address] 78122- 2943 Jul, [facility] [address] [place] [id number] [place] [address] 72872- 2418 Jul, ADHD (attention deficit hyperactivity disorder), combined type F90.2 ; Anxiety state F41.1 and Depressive disorder, not elsewhere classified F32.9 [facility] [address] [place] [id number] [place] [address] 78393- 9801 June, [facility] [address] [id number] [place] [address] [id number] June, Constipation K59.00 [facility] [id number] [place] [address] 45988- 7974 May, Constipation K59.00 [facility] [address] [id number] [place] [address] 43832 -5026 May, Irritable bowel syndrome with diarrhea K58.0 [facility] [address] [id number] [place] [address] 70494- 3124 May, [facility] [id number] [place] [address] 37368- 8942 May, [facility] [address] [id number] [place] [address] 16139- 4362 May, [facility] [id number] [place] [address] 08200- 9410 May, [facility] [id number] [place] [address] 73788- 1521 Jan, [facility] [address] [id number] [place] [address] 17824- 9908 Jan, [facility] [address] [id number] [place] [address] 76836- 1143 Jan, [facility] [address] [place] [id number] [place] [address] 41864- 2546 Jan, [facility] [place] [facility] [address] [id number] [place] 4976 Jan, [facility] [place] [facility] [address] [id number] [place] [address]- 2488 Jan, [facility] [place] [facility] [address] [id number] [place] [address]- 1645 Nov, [facility] [place] [facility] [address] [id number] [place] [address]- 7834 Nov, [facility] [place] [facility] [address] [id number] [place] [address]- 4519 Oct, [facility] [place] [facility] [address] [id number] [place] 6982 Oct, [facility] [place] [facility] [address] [id number] [place] [address]- 8351 Sep, [facility] [place] [facility] [address] [id number] [place] [address]- 2543 Sep, [facility] [place] [facility] [address] [id number] [place] [address]- 3118 Aug, [facility] [place] [facility] [address] [id number] [place] [address]- 7105 Aug, [facility] [place] [facility] [address] [id number] [place] [address]- 9114 Aug, [facility] [place] [facility] [address] [id number] [place] [address]- 4740 Aug, [facility] [place] [facility] [address] [id number] [place] [address]- 1730 Aug, [facility] [place] [facility] [address] [id number] [place] 6727 Aug, [facility] [place] [facility] [address] [id number] [place] [address]- 9659 Aug, [facility] [place] [facility] [address] [id number] [place] [address]- 3632 Aug, [facility] [place] [facility] [address] [id number] [place] [address]- 1486 Jul, [facility] [place] [facility] [address] [id number] [place] [address]- 0948 Jul, [facility] [place] [facility] [address] [id number] [place] [address]- 7046 Jul, [facility] [place] [facility] [address] [id number] [place] [address]- 4308 Jul, [facility] [place] [facility] [address] [id number] [place] [address]- 8538 Jul, [facility] [place] [facility] [address] [id number] [place] [address]- 9610 Jul, [facility] [place] [facility] [address] [id number] [place] [address]- 9352 Jul, [facility] [place] [facility] [address] [id number] [place] [address]- 5968 Jul, [facility] [place] [facility] [address] [id number] [place] [address]- 2043 Jul, [facility] [place] [facility] [address] [id number] [place] [address]- 9682 June, [facility] [place] [facility] [address] [id number] [place] [address]- 9342 June, [facility] [place] [facility] [address] [id number] [place] [address]- 5466 May, [facility] [place] [facility] [address] [id number] [place] [address]- 5675 May, [facility] [place] [facility] [address] [id number] [place] [address]- 7801 May, [facility] [place] [facility] [address] [id number] [place] [address]- 3623 May, [facility] [place] [facility] [address] [id number] [place] [address]- 2042 May, [facility] [place] [facility] [address] [id number] [place] [address]- 8430 May, [facility] [place] [facility] [address] [id number] [place] [address]- 5589 May, [facility] [place] [facility] [address] [id number] [place] [address]- 0081 May, [facility] [place] [facility] [address] [id number] [place] [address]- 1194 May, [facility] [place] [facility] [address] [id number] [place] [address]- 5132 May, [facility] [place] [facility] [address] [id number] [place] [address]- 1336 May, [facility] [place] [facility] [address] [id number] [place] [address]- 6000 May, [facility] [place] [facility] [address] [id number] [place] [address]- 2812 Apr, [facility] [place] [facility] [address] [id number] [place] [address]- 5195 Apr, [facility] [place] [facility] [address] [id number] [place] [address]- 4329 Apr, [facility] [place] [facility] [address] [id number] [place] [address]- 4191 Apr, [facility] [place] [facility] [address] [id number] [place] [address]- 0028 Mar, [facility] [place] [facility] [address] [id number] [place] [address]- 8789 Mar, [facility] [place] [facility] [address] [id number] [place] [address]- 0377 Mar, [facility] [place] [facility] [address] [id number] [place] [address]- 3767 28 Mar, 2013 [facility] [place] [facility] [address] [id number] [place] [address]- 6419 Mar, 2013 [facility] [place] [facility] [address] [id number] [place] [address]- 0416 Mar, 2013 [facility] [place] [facility] [address] [id number] [place] [address]- 4680 19 Mar, 2013 [facility] [place] [facility] [address] [id number] [place] [address]- 2548 Mar, 2013 [facility] [place] [facility] [address] [facility] [id number] [place] [address]- 4072 Mar, 2013 [facility] [place] [facility] [address] [facility] [id number] [place] [address]- 8128 Mar, 2013 [facility] [place] [facility] [address] [facility] [id number] [place] [address]- 2267 14 Mar, 2013 [facility] [place] [facility] [address] [facility] [id number] [place] [address]- 8892 14 Mar, 2013 [facility] [place] [facility] [address] [facility] [id number] [place] [address]- 7534 13 Mar, 2013 [facility] [place] [facility] [address] [facility] [id number] [place] [address]- 5296 13 Mar, 2013 [facility] [place] [facility] [address] [facility] [id number] [address]- 2555 Mar, 2013 [facility] [place] [facility] [address] [facility] [id number] [place] [address]- 8265 Mar, [facility] [place] [facility] [address] [facility] [id number] [place] [address]- 3407 Mar, 2013 [facility] [place] [facility] [address] [facility] [id number] [place] [address]- 5741 Mar, 2013 [facility] [place] [facility] [address] [facility] [id number], [place] [address]- 7413 Mar, [facility] [address] [id number] [place] [address]- 1961 Mar, [facility] [place] [facility] [address] [id number] [place] [address]- 9839 Feb, [facility] [place] [facility] [address] [id number] [place] [address]- 9168 Feb, [facility] [place] [facility] [address] [id number] [place] [address] Feb, [facility] [place] [facility] [address] [id number] [place] [address] Feb, [facility] [place] [facility] [address] [id number] [place] [address] Feb, [facility] [place] [facility] [address] [id number] [place] [address] Feb, [facility] [place] [facility] [address] [id number] [place] [address] Feb, [facility] [place] [facility] [address] [id number] [place] [address] Feb, [facility] [place] [facility] [address] [id number] [place] [address] Feb, [facility] [place] [facility] [address] [id number] [place] [address] Feb, [facility] [place] [facility] [address] [id number], [place] [address] Feb, [facility] [place] [facility] [address] [id number] [place] [address] Feb, [facility] [place] [facility] [address] [id number] [place] [address] Feb, [facility] [place] [facility] [address] [id number] [place] [address] Feb, [facility] [place] [facility] [address] [id number] [place] [address] 16 Feb, 2013 [facility] [place] [facility] [address] [id number] [place] [address] 15 Feb, 2013 [facility] [place] [facility] [address] [id number] [place] [address] 15 Feb, 2013 [facility] [place] [facility] [address] [id number] [place] [address] Feb, [facility] [place] [facility] [address] [id number] [place] [address] Feb, [facility] [place] [facility] [address] [id number] [place] [address] Feb, [facility] [place] [facility] [address] [id number] [place] [address] Feb, [facility] [place] [facility] [address] [id number] [place] [address] Feb, [facility] [place] [facility] [address] [id number] [place] [address] Feb, [facility] [place] [facility] [address] [id number] [place] [address] Jan, [facility] [facility] [address] [id number] [place] [address] 24 Jan, 2013 [facility] [place] [facility] [address] [id number] [place] [address] 19 Jan, 2013 [facility] [place] [facility] [address] [id number] [place] [address] 18 Jan, 2013 [facility] [place] [facility] [address] [id number] [place] [address] 18 Jan, 2013 [facility] [place] [facility] [address] [id number] [place] [address] 18 Jan, 2013 [facility] [address] [id number] [place] [address] Jan, [facility] [address] [id number] [place] [address] Jan, [facility] [address] [id number] [place] [address] Jan, [facility] [place] [facility] [address] [id number] [place] [address] Jan, [facility] [facility] [address] [id number] [place] [address] Jan, [facility] [address] [id number] [place] [address] Jan, [facility] [facility] [address] [id number] [place] [address] Jan, [facility] [place] [facility] [address] [id number] [place] [address] Dec, [facility] [address] [id number], [place] [address] Dec, [facility] [place] [facility] [address] [id number] [place] [address] Dec, [facility] [address] [id number], [place] [address] Dec, [facility] [address] [id number], [place] [address] 15 Dec, 2012 [facility] [address] [id number], [place] [address] 15 Dec, 2012 [facility] [facility] [address] [id number], [place] [address] Nov, [facility] [address] [id number], [place] [address] Nov, [facility] [address] [id number], [place] [address] Nov, [facility] [address] [id number], [place] [address] Nov, [facility] [id number], [place] [address] Nov, [facility] [id number], [place] [address] Nov, [facility] [id number], [place] [address] 28 Oct, 2012 [facility] [id number], [place] [address] 27 Oct, 2012 [facility] [id number] [place] [address] 26 Oct, 2012 [facility] [id number], [place] [address] Oct, [facility] [address], [place] [address] Oct, [facility] [id number], [place] [address] 18 Oct, 2012 [facility] [id number], [place] [address] Oct, IMMUNIZATIONS No Known Immunizations SOCIAL HISTORY Never Assessed REASON FOR VISIT Jessica ROD PLAN OF CARE VITAL SIGNS MEDICATIONS [...]
--- OUTSIDE RECORDS SUMMARY | 2017-12-03 14:08 | XMS REPORT ---
Author Author VESTA JOSE Organization [facility] Address [address] [place] [address] Care Team Providers Care Speech Coach Name Role Phone HORACIOGURU CHAMPAGNEA Unavailable PROBLEMS Type Condition ICD9-CM Code PID93-IF Code Onset Dates Condition Status SNOMED Code Problem Anxiety state F41.1 Active 331958803 Problem Depressive disorder, not elsewhere classified F32.9 Active 32224371 Problem ADHD (attention deficit hyperactivity disorder), combined type F90.2 Active 60733702 Problem Irritable bowel syndrome with diarrhea K58.0 Active 711952401 Problem Plantar wart of right foot B07.0 Active 64008345631305645 Problem Slow transit constipation K59.01 Active 94674135 Problem Rhinitis, unspecified type J31.0 Active 20761247 Problem Anxiety disorder, unspecified type F41.9 Active 322829277 Problem Major depressive disorder, single episode, mild F32.0 Active 03360202 ALLERGIES No Information ENCOUNTERS Encounter Location Date Diagnosis [place] [id number] [place] [address] 06794- 3147 Aug, ADHD (attention deficit hyperactivity disorder), combined type F90.2 [facility] [id number] [place] [address] 75523- 0439 Jul, ADHD (attention deficit hyperactivity disorder), combined type F90.2 [facility] [address] [address] June, ADHD (attention deficit hyperactivity disorder), combined type F90.2 ; Major depressive disorder, single episode, mild F32.0 and Anxiety disorder, unspecified type F41.9 [facility] [address] [address] June, [facility] [address] [id number] [address] 0408 June, ADHD (attention deficit hyperactivity disorder), combined type F90.2 [facility] [id number] [address] 3055 May, [facility] [address] [address] May, ADHD (attention deficit hyperactivity disorder), combined type F90.2 ; Major depressive disorder, single episode, mild F32.0 and Anxiety disorder, unspecified type F41.9 [facility] [id number] [address] May, Anxiety disorder, unspecified type F41.9 [facility] [id number] [address] 0[address] Apr, [facility] [address] [place] [id number] [place] [address] 45813- 0813 Apr, Anxiety disorder, unspecified type F41.9 [facility] [address] [address] 8789 Apr, Anxiety disorder, unspecified type F41.9 ; Major depressive disorder, single episode, mild F32.0 and ADHD (attention deficit hyperactivity disorder), combined type F90.2 [facility] [address] [address]- 70[address] Apr, [facility] [address] [address]- 6070 Apr, ADHD (attention deficit hyperactivity disorder), combined type F90.2 ; Anxiety state F41.1 ; Depressive disorder, not elsewhere classified F32.9 ; Major depressive disorder, single episode, mild F32.0 and Anxiety disorder, unspecified type F41.9 [facility] [address] [address]- 6916 Mar, ADHD (attention deficit hyperactivity disorder), combined type F90.2 [facility] [address] [id number] [place] [address] 47958- 3865 20 Mar, 2017 Nausea R11.0 [facility] [address] [address]- 6167 13 Mar, 2017 Screening for STD sexually transmitted disease Z11.3 ; Vaginal candidiasis B37.3 and Irritable bowel syndrome with diarrhea K58.0 [place] [address] [place] [id number] [place] [address] 08358- 0290 04 Mar, 2017 [facility] [address] [place] [id number] [place] [address] 13459- 5205 Feb, ADHD (attention deficit hyperactivity disorder), combined type F90.2 [place] [address] [place] [id number] [place] [address] 83496- 7882 Feb, Depressive disorder, not elsewhere classified F32.9 ; Anxiety state F41.1 and ADHD (attention deficit hyperactivity disorder), combined type F90.2 [place] [address] [place] [id number] [place] [address] 37697- 5605 Feb, Depressive disorder, not elsewhere classified F32.9 ; Anxiety state F41.1 and ADHD (attention deficit hyperactivity disorder), combined type F90.2 [place] [address] [place] [id number] [place] [address] 02724- 2720 Feb, ADHD (attention deficit hyperactivity disorder), combined type F90.2 [facility] [id number] [place] [address] 42028 -0323 Jan, Other viral agents as the cause of diseases classified elsewhere B97.89 and Acute upper respiratory infection, unspecified J06.9 [facility] [address] [place] [id number] [place] [address] 43906- 3558 Jan, ADHD (attention deficit hyperactivity disorder), combined type F90.2 ; Major depressive disorder, single episode, mild F32.0 and Anxiety disorder, unspecified type F41.9 [place] [address] [place] [id number] [place] [address] 29735- 5752 Jan, [place] [address] [address]- 2908 Jan, ADHD (attention deficit hyperactivity disorder), combined type F90.2 ; Major depressive disorder, single episode, mild F32.0 and Anxiety disorder, unspecified type F41.9 [place] [address] [place] [id number] [place] [address] 76911- 2265 Dec, Irritable bowel syndrome with diarrhea K58.0 and Lower abdominal pain R10.30 [place] [address] [place] [id number] [place] [address] 59147- 1351 Dec, Hospital discharge follow-up Z09 ; Mesenteric adenitis I88.0 ; IBD (inflammatory bowel disease) K52.9 and Nausea R11.0 [place] [address] [place] [id number] [place] [address] 50932- 4170 Nov, ADHD (attention deficit hyperactivity disorder), combined type F90.2 ; Major depressive disorder, single episode, mild F32.0 and Anxiety disorder, unspecified type F41.9 [place] [address] [place] [id number] [place] [address] 77839- 2785 Nov, Anxiety state F41.1 ; ADHD (attention deficit hyperactivity disorder), combined type F90.2 ; Major depressive disorder, single episode, mild F32.0 and Anxiety disorder, unspecified type F41.9 [place] [id number] [place] [address] 10411- 6745 Oct, Anxiety state F41.1 ; ADHD (attention deficit hyperactivity disorder), combined type F90.2 ; Major depressive disorder, single episode, mild F32.0 and Anxiety disorder, unspecified type F41.9 [place] [address] [place] [id number] [place] [address] 03291- 2321 Oct, ADHD (attention deficit hyperactivity disorder), combined type F90.2 ; Major depressive disorder, single episode, mild F32.0 and Anxiety disorder, unspecified type F41.9 [place] [address] [place] [id number] [place] [address] 53160- 6900 Oct, Major depressive disorder, single episode, mild F32.0 ; Anxiety state F41.1 ; ADHD (attention deficit hyperactivity disorder), combined type F90.2 and Depressive disorder, not elsewhere classified F32.9 [facility] [id number] [place] [address] 24212 -3270 16 Oct, 2016 [facility] [address] [place] [id number] [place] [address] 96287 -9622 Oct, Cellulitis L03.90 and Plantar wart of right foot B07.0 [facility] [address] [place] [id number] [place] [address] 13218- 5747 Aug, ADHD (attention deficit hyperactivity disorder), combined type F90.2 ; Major depressive disorder, single episode, mild F32.0 and Anxiety disorder, unspecified type F41.9 [facility] [address] [place] [id number] [place] [address] 53168- 6356 Aug, [facility] [address] [id number] [place] [address] 51427- 4730 Jul, ADHD (attention deficit hyperactivity disorder), combined type F90.2 [place] [address] [place] [id number] [place] [address] 14059- 6213 Jul, Mesenteric adenitis I88.0 [facility] [address] [place] [id number] [place] [address] 05974- 5350 June, [facility] [address] [place] [id number] [place] [address] 94547 -4294 June, Lower abdominal pain R10.30 [facility] [address] [place] [id number] [place] [address] 67206- 0355 June, [facility] [address] [place] [id number] [place] [address] 26984- 5702 June, ADHD (attention deficit hyperactivity disorder), combined type F90.2 and Major depressive disorder, single episode, mild F32.0 [place] [address] [place] [id number] [place] [address] 56686- 8498 May, [facility] [address] [place] [id number] [place] [address] 87104- 8329 May, ADHD (attention deficit hyperactivity disorder), combined type F90.2 and Major depressive disorder, single episode, mild F32.0 [facility] [address] [place] [id number] [place] [address] 91960 -3705 Apr, Abdominal pain R10.9 and Gastroenteritis and colitis, viral A08.4 [place] [address] [place] [id number] [place] [address] 60057- 5075 Apr, [facility] [address] 74570 -7071 Mar, Acute urticaria L50.8 [place] [address] [place] [id number] [place] [address] 66162- 7259 Mar, [facility] [address] [place] [id number] [place] [address] 08131- 0417 Feb, [facility] [address] [place] [id number] [place] [address] 18310 -4479 Feb, Gastroenteritis K52.9 [facility] [address] [place] [id number] [place] [address] 09557- 9128 Feb, Irritant contact dermatitis due to cosmetics L24.3 [place] [address] [place] [id number] [place] [address] 04296- 2027 Jan, [place] [address] [place] [id number] [place] [address] 97649- 0485 Jan, [place] [address] [place] [id number] [place] [address] 06699- 1849 Jan, ADHD (attention deficit hyperactivity disorder), combined type F90.2 and Major depressive disorder, single episode, mild F32.0 [facility] [address] [place] [id number] [place] [address] 83926 -6883 Dec, Flexural eczema L20.82 [facility] [address] [place] [id number] [place] [address] 26338- 9306 Dec, Encounter for test Z32.00 [facility] [address] [place] [id number] [place] [address] 89494- 6578 Dec, [facility] [address] [place] [id number] [place] [address] 02791- 6523 Dec, [facility] [address] 21994- 6980 Dec, [facility] [address] 10715 -8421 Nov, Sore throat J02.9 and Pharyngitis, unspecified etiology J02.9 [facility] [address] 84597- 4561 Nov, [facility] [address] 72352- 9510 Nov, [facility] [address] 82066- 5775 Nov, Generalized abdominal pain R10.84 and Slow transit constipation K59.01 [facility] [address] [place] [id number] [place] [address] [id number] 05 Nov, 2015 Pharyngitis, unspecified etiology J02.9 and Rhinitis, unspecified type J31.0 [facility] [address] [place] [id number] [place] [address] 56769- 7228 Oct, Depressive disorder, not elsewhere classified F32.9 and ADHD (attention deficit hyperactivity disorder), combined type F90.2 [facility] [address] 87938- 8001 Oct, [facility] [address] [place] [id number] [place] [address] 40327- 8453 Oct, [facility] [address] [place] [address] -1692 20 Oct, 2015 Strep throat J02.0 [facility] [address] [place] [id number] [place] [address] 13984- 1562 Oct, [facility] [address] [place] [id number] [place] [address] 23171- 7391 Oct, Well woman exam with routine gynecological exam Z01.419 and Screening for STD sexually transmitted disease Z11.3 [place] [address] [place] [id number] [place] [address] 88219- 2025 Sep, ADHD (attention deficit hyperactivity disorder), combined type F90.2 ; Anxiety state F41.1 and Depressive disorder, not elsewhere classified F32.9 [place] [address] [place] [id number] [place] [address] 35445- 7454 Sep, ADHD (attention deficit hyperactivity disorder), combined type F90.2 and Depressive disorder, not elsewhere classified F32.9 [place] [address] [place] [id number] [place] [address] 56713- 4791 Aug, [facility] [address] [place] [id number] [place] [address] 78261- 9604 Aug, ADHD (attention deficit hyperactivity disorder), combined type F90.2 and Depressive disorder, not elsewhere classified F32.9 [place] [address] [place] [address] 74285- 4241 Aug, ADHD (attention deficit hyperactivity disorder), combined type F90.2 ; Anxiety state F41.1 and Depressive disorder, not elsewhere classified F32.9 [facility] [address] [address]- 5283 Aug, [facility] [address] [place] [id number] [place] [address] 74289- 8861 Aug, [facility] [address] [place] [address] 75515- 9405 Jul, ADHD (attention deficit hyperactivity disorder), combined type F90.2 ; Depressive disorder, not elsewhere classified F32.9 and Anxiety state F41.1 [facility] [address] [place] [id number] [place] [address] 76652- 7385 Jul, [facility] [address] [place] [id number] [place] [address] 49129- 7744 Jul, ADHD (attention deficit hyperactivity disorder), combined type F90.2 ; Anxiety state F41.1 and Depressive disorder, not elsewhere classified F32.9 [facility] [address] [place] [id number] [place] [address] 72740- 1980 June, [facility] [address] [place] [id number] [place] [address] [id number] June, Constipation K59.00 [facility] [address] [place] [id number] [place] [address] 18877- 8214 May, Constipation K59.00 [facility] [address] [place] [id number] [place] [address] 06051 -9673 May, Irritable bowel syndrome with diarrhea K58.0 [facility] [address] [place] [id number] [place] [address] 24621- 9376 May, [facility] [address] [place] [id number] [place] [address] 38110- 4346 May, [facility] [address] [id number] [place] [address] 48800- 9945 May, [facility] [address] [place] [id number] [place] [address] 12861- 6765 May, [facility] [address] [place] [id number] [place] [address] 50628- 1252 Jan, [facility] [address] [place] [id number] [place] [address] 81169- 0533 Jan, [facility] [address] [place] [id number] [place] [address] 20330- 2851 Jan, [facility] [address] [place] [id number] [place] [address] 24344- 2546 Jan, [facility] [place] [facility] [address] [id number] [place] 7999 Jan, [facility] [place] [facility] [address] [id number] [place] [address]- 5797 Jan, [facility] [place] [facility] [address] [id number] [place] [address]- 8484 Nov, [facility] [place] [facility] [address] [id number] [place] [address]- 3947 Nov, [facility] [place] [facility] [address] [id number] [place] [address]- 6644 Oct, [facility] [place] [facility] [address] [id number] [place] 6173 Oct, [facility] [place] [facility] [address] [id number] [place] [address]- 7374 Sep, [facility] [place] [facility] [address] [id number] [place] [address]- 7270 Sep, [facility] [place] [facility] [address] [id number] [place] [address]- 7099 Aug, [facility] [place] [facility] [address] [id number] [place] [address]- 9208 Aug, [facility] [place] [facility] [address] [id number] [place] [address]- 8235 Aug, [facility] [place] [facility] [address] [id number] [place] [address]- 1190 Aug, [facility] [place] [facility] [address] [id number] [place] [address]- 2368 Aug, [facility] [place] [facility] [address] [id number] [place]- 5203 Aug, [facility] [place] [facility] [address] [id number] [place] [address]- 2765 Aug, [facility] [place] [facility] [address] [id number] [place] [address]- 9299 Aug, [facility] [place] [facility] [address] [id number] [place] [address]- 5861 Jul, [facility] [place] [facility] [address] [id number] [place] [address]- 6998 Jul, [facility] [place] [facility] [address] [id number] [place] [address]- 5137 Jul, [facility] [place] [facility] [address] [id number] [place] [address]- 9768 Jul, [facility] [place] [facility] [address] [id number] [place] [address]- 4471 Jul, [facility] [place] [facility] [address] [id number] [place] [address]- 8407 Jul, [facility] [place] [facility] [address] [id number] [place] [address]- 6301 Jul, [facility] [place] [facility] [address] [id number] [place] [address]- 8541 Jul, [facility] [place] [facility] [address] [id number] [place] [address]- 9593 Jul, [facility] [place] [facility] [address] [id number] [place] [address]- 4337 June, [facility] [place] [facility] [address] [id number] [place] [address]- 1774 June, [facility] [place] [facility] [address] [id number] [place] [address]- 1380 May, [facility] [place] [facility] [address] [id number] [place] [address]- 7501 May, [facility] [place] [facility] [address] [id number] [place] [address]- 9500 May, [facility] [place] [facility] [address] [id number] [place] [address]- 8237 May, [facility] [place] [facility] [address] [id number] [place] [address]- 8381 May, [facility] [place] [facility] [address] [id number] [place] [address]- 9511 May, [facility] [place] [facility] [address] [id number] [place] [address]- 6723 May, [facility] [place] [facility] [address] [id number] [place] [address]- 8855 May, [facility] [place] [facility] [address] [id number] [place] [address]- 9637 May, [facility] [place] [facility] [address] [id number] [place] [address]- 0026 May, [facility] [place] [facility] [address] [id number] [place] [address]- 8827 May, [facility] [place] [facility] [address] [id number] [place] [address]- 2093 May, [facility] [place] [facility] [address] [id number] [place] [address]- 2158 Apr, [facility] [place] [facility] [address] [id number] [place] [address]- 6219 Apr, [facility] [place] [facility] [address] [id number] [place] [address]- 5539 Apr, [facility] [place] [facility] [address] [id number] [place] [address]- 8752 Apr, [facility] [place] [facility] [address] [id number] [place] [address]- 3188 Mar, [facility] [place] [facility] [address] [id number] [place] [address]- 0666 Mar, [facility] [place] [facility] [address] [id number] [place] [address]- 6956 Mar, [facility] [place] [facility] [address] [id number] [place] [address]- 8302 28 Mar, 2013 [facility] [place] [facility] [address] [id number] [place] [address]- 0306 Mar, 2013 [facility] [place] [facility] [address] [id number] [place] [address]- 5916 Mar, 2013 [facility] [place] [facility] [address] [id number] [place] [address]- 7783 19 Mar, 2013 [facility] [place] [facility] [address] [id number] [place] [address]- 2544 Mar, 2013 [facility] [place] [facility] [address] [facility] [id number] [place] [address]- 8652 Mar, 2013 [facility] [place] [facility] [address] [facility] [id number] [place] [address]- 9489 Mar, 2013 [facility] [place] [facility] [address] [facility] [id number] [place] [address]- 1417 14 Mar, 2013 [facility] [place] [facility] [address] [facility] [id number] [place] [address]- 5612 14 Mar, 2013 [facility] [place] [facility] [address] [facility] [id number] [place] [address]- 8258 13 Mar, 2013 [facility] [place] [facility] [address] [facility] [id number] [place] [address]- 1606 13 Mar, 2013 [facility] [place] [facility] [address] [facility] [id number] [address]- 2282 Mar, 2013 [facility] [place] [facility] [address] [facility] [id number] [place] [address]- 4960 Mar, [facility] [place] [facility] [address] [facility] [id number] [place] [address]- 7233 Mar, 2013 [facility] [place] [facility] [address] [facility] [id number] [place] [address]- 6442 Mar, 2013 [facility] [place] [facility] [address] [facility] [id number], [place] [address]- 1970 Mar, [facility] [address] [id number] [place] [address]- 5057 Mar, [facility] [place] [facility] [address] [id number] [place] [address]- 8598 Feb, [facility] [place] [facility] [address] [id number] [place] [address] Feb, [facility] [place] [facility] [address] [id number] [place] [address] Feb, [facility] [place] [facility] [address] [id number] [place] [address] Feb, [facility] [place] [facility] [address] [id number] [place] [address] Feb, [facility] [place] [facility] [address] [id number] [place] [address] Feb, [facility] [place] [facility] [address] [id number] [place] [address] Feb, [facility] [place] [facility] [address] [id number] [place] [address] Feb, [facility] [place] [facility] [address] [id number] [place] [address] Feb, [facility] [place] [facility] [address] [id number] [place] [address] Feb, [facility] [place] [facility] [address] [id number] [address] Feb, [facility] [place] [facility] [address] [id number] [place] [address] Feb, [facility] [place] [facility] [address] [id number] [place] [address] Feb, [facility] [place] [facility] [address] [id number] [place] [address] Feb, [facility] [place] [facility] [address] [id number] [place] [address] 16 Feb, 2013 [facility] [place] [facility] [address] [id number] [place] [address] 15 Feb, 2013 [facility] [place] [facility] [address] [id number] [place] [address] 15 Feb, 2013 [facility] [place] [facility] [address] [id number] [place] [address] Feb, [facility] [place] [facility] [address] [id number] [place] [address] Feb, [facility] [place] [facility] [address] [id number] [place] [address] Feb, [facility] [place] [facility] [address] [id number] [place] [address] Feb, [facility] [place] [facility] [address] [id number] [place] [address] Feb, [facility] [place] [facility] [address] [id number] [place] [address] Feb, [facility] [place] [facility] [address] [id number] [place] [address] Jan, [facility] [place] [facility] [address] [id number] [place] [address] 24 Jan, 2013 [facility] [place] [facility] [address] [address] [id number] [place] [address] 19 Jan, 2013 [facility] [place] [facility] [address] [id number] [place] [address] 18 Jan, 2013 [facility] [place] [facility] [address] [id number] [place] [address] 18 Jan, 2013 [facility] [place] [facility] [address] [id number] [place] [address] 18 Jan, 2013 [facility] [place] [facility] [address] [id number] [place] [address] Jan, [facility] [address] [id number] [place] Jan, [facility] [place] [facility] [address] [id number] [place] [address] Jan, [facility] [place] [facility] [address] [id number] [place] [address] Jan, [facility] [place] [facility] [address] [id number] [place] [address] Jan, [facility] [address] [id number] [place] [address] Jan, [facility] [place] [facility] [address] [id number] [place] [address] Jan, [facility] [place] [facility] [address] [id number] [place] [address] Dec, [facility] [place] [facility] [address] [id number] [address] Dec, [facility] [place] [facility] [address] [id number] [place] [address] Dec, [facility] [place] [facility] [address] [id number], [place] [address] Dec, [facility] [place] [facility] [address] [id number][place] [address] 15 Dec, 2012 [facility] [place] [facility] [address] [id number][place] [address] 15 Dec, 2012 [facility] [place] [facility] [address] [id number][place] [address] Nov, [facility] [place] [facility] [address] [id number], [place] [address] Nov, [facility] [place] [facility] [address] [id number][place] [address] Nov, [facility] [place] [facility] [address] [id number] [address] Nov, [facility] [id number] [address] Nov, [facility] [id number] [address] Nov, [facility] [id number] [address] 28 Oct, 2012 [facility] [id number] [address] 27 Oct, 2012 [facility] [id number] [place] [address] 26 Oct, 2012 [facility] [id number] [address] Oct, [facility] [id number] [address] Oct, [facility] [id number], [place] [address] Oct, [facility] [id number] [address] Oct, IMMUNIZATIONS No Known Immunizations SOCIAL HISTORY Never Assessed REASON FOR VISIT ritalin 06/07/2017 PLAN OF CARE VITAL SIGNS MEDICATIONS Medication Instructions Dosage Frequency Start Date End Date Duration Status Ritalin LA 30 MG Orally Once a day 1 capsule in the morning 24h May, 28 days Active RESULTS No Results PROCEDURES [...]
[2017-12-03] MEDS ORDERED: MED FOR ADHD (14:10)
--- OUTSIDE RECORDS SUMMARY | 2017-12-03 14:17 | XMS REPORT ---
Author Author HARIKA RODRIGUEZ Organization [facility] Address [address] [place] [address] Care Team Providers Care Terra Cotta Mason Name Role Phone HARIKA RODRIGUEZ Unavailable PROBLEMS Type Condition ICD9-CM Code CEO89-XV Code Onset Dates Condition Status SNOMED Code Problem ADHD (attention deficit hyperactivity disorder), combined type F90.2 Active 27280906 Problem Rhinitis, unspecified type J31.0 Active 35933193 Problem Depressive disorder, not elsewhere classified F32.9 Active 88400499 Problem Anxiety state F41.1 Active 589168907 Problem Unspecified mood [affective] disorder F39 Active 54377450 Problem Irritable bowel syndrome with diarrhea K58.0 Active 936474675 Problem Major depressive disorder, single episode, mild F32.0 Active 37144251 Problem Slow transit constipation K59.01 Active 01095052 Problem Plantar wart of right foot B07.0 Active [id number] Problem Anxiety disorder, unspecified type F41.9 Active 857192637 ALLERGIES No Known Allergies ENCOUNTERS Encounter Location Date Diagnosis [facility] [id number] [place] [address] 1025 Dec, [facility] [id number] [place] [address]03 [address]9276 Nov, Other specified bacterial agents as the cause of diseases classified elsewhere B96.89 and Otitis media, unspecified, bilateral H66.93 [facility] [id number] [place] [address] 54396 -0463 Nov, Sore throat J02.9 and Acute nasopharyngitis J00 [facility] [id number] [place] [address] 28278- 3313 Nov, ADHD (attention deficit hyperactivity disorder), combined type F90.2 ; Anxiety disorder, unspecified type F41.9 and Unspecified mood [ affective] disorder F39 [facility] [id number] [address] Oct, ADHD (attention deficit hyperactivity disorder), combined type F90.2 [facility] [address] [address] Oct, ADHD (attention deficit hyperactivity disorder), combined type F90.2 ; Anxiety disorder, unspecified type F41.9 and Unspecified mood [ affective] disorder F39 [facility] [id number] [address] 89[address] Sep, ADHD (attention deficit hyperactivity disorder), combined type F90.2 [place] [address] [address] Sep, [facility] [address] [address] 0272 Aug, ADHD (attention deficit hyperactivity disorder), combined type F90.2 ; Major depressive disorder, single episode, mild F32.0 and Anxiety disorder, unspecified type F41.9 [facility] [address] [address] Aug, Sore throat J02.9 ; Other specified bacterial agents as the cause of diseases classified elsewhere B96.89 and Acute tonsillitis due to other specified organisms J03.80 [facility] [id number] [address] 6536 Aug, ADHD (attention deficit hyperactivity disorder), combined type F90.2 [facility] [id number] [address] 1234 Jul, ADHD (attention deficit hyperactivity disorder), combined type F90.2 [facility] [id number] [address] 7720 June, ADHD (attention deficit hyperactivity disorder), combined type F90.2 ; Major depressive disorder, single episode, mild F32.0 and Anxiety disorder, unspecified type F41.9 [facility] [address] [address] June, [facility] [id number] [place] [address] 49041- 4916 June, ADHD (attention deficit hyperactivity disorder), combined type F90.2 [facility] [address] [address]702 May, [facility] [id number] [address] 5378 May, ADHD (attention deficit hyperactivity disorder), combined type F90.2 ; Major depressive disorder, single episode, mild F32.0 and Anxiety disorder, unspecified type F41.9 [facility] [address] [address] 45[address] May, Anxiety disorder, unspecified type F41.9 [facility] [id number] [address] 9[address] Apr, [facility] [address] [address] 4360 Apr, Anxiety disorder, unspecified type F41.9 [facility] [address] [address]- 8073 Apr, Anxiety disorder, unspecified type F41.9 ; Major depressive disorder, single episode, mild F32.0 and ADHD (attention deficit hyperactivity disorder), combined type F90.2 [facility] [address] [address] 8[address] Apr, [facility] [id number] [place] [address] 09808- 8942 Apr, ADHD (attention deficit hyperactivity disorder), combined type F90.2 ; Anxiety state F41.1 ; Depressive disorder, not elsewhere classified F32.9 ; Major depressive disorder, single episode, mild F32.0 and Anxiety disorder, unspecified type F41.9 [facility] [address] [address]- 9972 28 Mar, 2017 ADHD (attention deficit hyperactivity disorder), combined type F90.2 [place] [id number] [place] [address] 40429- 9112 20 Mar, [address] [facility] [id number] [place] [address] 43029- 0481 13 Mar, 2017 Screening for STD sexually transmitted disease Z11.3 ; Vaginal candidiasis B37.3 and Irritable bowel syndrome with diarrhea K58.0 [place] [id number] [place] [address] 49317- 1915 04 Mar, 2017 [place] [id number] [place] [address] 00222- 8021 Feb, ADHD (attention deficit hyperactivity disorder), combined type F90.2 [place] [id number] [place] [address] 91480- 2577 Feb, Depressive disorder, not elsewhere classified F32.9 ; Anxiety state F41.1 and ADHD (attention deficit hyperactivity disorder), combined type F90.2 [place] [address] [place] [address] 45353- 4823 Feb, Depressive disorder, not elsewhere classified F32.9 ; Anxiety state F41.1 and ADHD (attention deficit hyperactivity disorder), combined type F90.2 [place] [address] [address]- 7425 Feb, ADHD (attention deficit hyperactivity disorder), combined type F90.2 [facility] [address] [address] Jan, Other viral agents as the cause of diseases classified elsewhere B97.89 and Acute upper respiratory infection, unspecified J06.9 [facility] [address] [place] [address] 62094- 1722 Jan, ADHD (attention deficit hyperactivity disorder), combined type F90.2 ; Major depressive disorder, single episode, mild F32.0 and Anxiety disorder, unspecified type F41.9 [place] [address] [address]- 7[address] Jan, [place] [address] [address]- 5853 Jan, ADHD (attention deficit hyperactivity disorder), combined type F90.2 ; Major depressive disorder, single episode, mild F32.0 and Anxiety disorder, unspecified type F41.9 [place] [address] [address]- 7363 Dec, Irritable bowel syndrome with diarrhea K58.0 and Lower abdominal pain R10.30 [place] [id number] [place] [address] 64499- 1800 Dec, Hospital discharge follow-up Z09 ; Mesenteric adenitis I88.0 ; IBD (inflammatory bowel disease) K52.9 and Nausea R11.0 [place] [address] [address]- 1534 Nov, ADHD (attention deficit hyperactivity disorder), combined type F90.2 ; Major depressive disorder, single episode, mild F32.0 and Anxiety disorder, unspecified type F41.9 [place] [address] [address]- 3622 Nov, Anxiety state F41.1 ; ADHD (attention deficit hyperactivity disorder), combined type F90.2 ; Major depressive disorder, single episode, mild F32.0 and Anxiety disorder, unspecified type F41.9 [place] [address] [address]- 1299 Oct, Anxiety state F41.1 ; ADHD (attention deficit hyperactivity disorder), combined type F90.2 ; Major depressive disorder, single episode, mild F32.0 and Anxiety disorder, unspecified type F41.9 [place] [address] [address]- 9437 Oct, ADHD (attention deficit hyperactivity disorder), combined type F90.2 ; Major depressive disorder, single episode, mild F32.0 and Anxiety disorder, unspecified type F41.9 [facility] [id number] [place] [address] 68210- 0007 Oct, Major depressive disorder, single episode, mild F32.0 ; Anxiety state F41.1 ; ADHD (attention deficit hyperactivity disorder), combined type F90.2 and Depressive disorder, not elsewhere classified F32.9 [facility] [address] [address] 16 Oct, 2016 [facility] [address] 57535 -8331 Oct, Cellulitis L03.90 and Plantar wart of right foot B07.0 [facility] [address] 30860- 2656 Aug, ADHD (attention deficit hyperactivity disorder), combined type F90.2 ; Major depressive disorder, single episode, mild F32.0 and Anxiety disorder, unspecified type F41.9 [facility] [id number] [place] [address] 88110- 5702 Aug, [place] [id number] [place] [address] 84113- 6182 Jul, ADHD (attention deficit hyperactivity disorder), combined type F90.2 [facility] [id number] [place] [address] 20088- 0155 Jul, Mesenteric adenitis I88.0 [facility] [id number] [place] [address] 69656- 4751 June, [facility] [address] 30908 -7093 June, Lower abdominal pain R10.30 [facility] [id number] [place] [address] 11686- 3708 June, [facility] [address] 66496- 9622 June, ADHD (attention deficit hyperactivity disorder), combined type F90.2 and Major depressive disorder, single episode, mild F32.0 [facility] [id number] [place] [address] 75947- 3785 May, [facility] [id number] [place] [address] 18085- 0471 May, ADHD (attention deficit hyperactivity disorder), combined type F90.2 and Major depressive disorder, single episode, mild F32.0 [facility] [id number] [place] [address] 53044 -4683 Apr, Abdominal pain R10.9 and Gastroenteritis and colitis, viral A08.4 [facility] [id number] [place] [address] 26391- 2169 Apr, [facility] [address] 40160 -3000 Mar, Acute urticaria L50.8 [facility] [id number] [place] [address] 86134- 2657 Mar, [place] [address] 38974- 0943 Feb, [facility] [id number] [place] [address] 93534 -1138 Feb, Gastroenteritis K52.9 [facility] [id number] [place] [address] 54329- 6727 Feb, Irritant contact dermatitis due to cosmetics L24.3 [facility] [id number] [place] [address] 60639- 9068 Jan, [facility] [id number] [place] [address] 44436- 4048 Jan, [facility] [id number] [place] [address] 57414- 6238 Jan, ADHD (attention deficit hyperactivity disorder), combined type F90.2 and Major depressive disorder, single episode, mild F32.0 [facility] [address] 60852 -2667 Dec, Flexural eczema L20.82 [facility] [address] 70501- 2330 Dec, Encounter for test Z32.00 [place] [address] 75416- 7545 Dec, [facility] [address] 62989- 0171 Dec, [place] [address] 30595- 1863 Dec, [facility] [address] 82716 -1497 Nov, Sore throat J02.9 and Pharyngitis, unspecified etiology J02.9 [facility] [address] 55963- 3087 Nov, [facility] [address] 91304- 2183 Nov, [facility] [address] 11320- 1983 Nov, Generalized abdominal pain R10.84 and Slow transit constipation K59.01 [facility] [address] [id number] Nov, Pharyngitis, unspecified etiology J02.9 and Rhinitis, unspecified type J31.0 [facility] [address] 88257- 6974 Oct, Depressive disorder, not elsewhere classified F32.9 and ADHD (attention deficit hyperactivity disorder), combined type F90.2 [facility] [address] 40459- 0741 Oct, [facility] [address] [address]- 6488 Oct, [facility] [address] [address] Oct, Strep throat J02.0 [facility] [address] [address]- 0544 Oct, [facility] [id number] [place] [address] 29753- 2247 Oct, Well woman exam with routine gynecological exam Z01.419 and Screening for STD sexually transmitted disease Z11.3 [place] [id number] [place] [address] 78722- 8360 Sep, ADHD (attention deficit hyperactivity disorder), combined type F90.2 ; Anxiety state F41.1 and Depressive disorder, not elsewhere classified F32.9 [facility] [id number] [place] [address] 70684- 3344 Sep, ADHD (attention deficit hyperactivity disorder), combined type F90.2 and Depressive disorder, not elsewhere classified F32.9 [facility] [address] [place] [address] 79340- 7010 Aug, [facility] [address] [address]- 5492 Aug, ADHD (attention deficit hyperactivity disorder), combined type F90.2 and Depressive disorder, not elsewhere classified F32.9 [facility] [address] [address]- 2569 Aug, ADHD (attention deficit hyperactivity disorder), combined type F90.2 ; Anxiety state F41.1 and Depressive disorder, not elsewhere classified F32.9 [facility] [address] [address]- 8452 Aug, [facility] [id number] [place] [address] 74428- 1934 Aug, [facility] [address] [address]- 0891 Jul, ADHD (attention deficit hyperactivity disorder), combined type F90.2 ; Depressive disorder, not elsewhere classified F32.9 and Anxiety state F41.1 [facility] [id number] [place] [address] 44921- 7203 Jul, [facility] [id number] [place] [address] 00429- 2413 Jul, ADHD (attention deficit hyperactivity disorder), combined type F90.2 ; Anxiety state F41.1 and Depressive disorder, not elsewhere classified F32.9 [facility] [id number] [place] [address] 65360- 8587 June, [facility] [id number] [place] [address] [id number] June, Constipation K59.00 [facility] [id number] [place] [address] 93032- 6396 May, Constipation K59.00 [facility] [id number] [place] [address] 70764 -0782 May, Irritable bowel syndrome with diarrhea K58.0 [facility] [address] [place] [address] 56314- 0000 May, [facility] [id number] [place] [address] 87218- 0128 May, [facility] [id number] [place] [address] 54007- 1133 May, [facility] [id number] [place] [address] 24425- 3867 May, [facility] [id number] [place] [address] 40335- 0933 Jan, [facility] [id number] [place] [address] 95464- 9173 Jan, [facility] [place] [facility] [address] [id number] [place] [address]- 6996 Jan, [facility] [place] [facility] [address] [id number] [place] 0829 Jan, [facility] [place] [facility] [address] [id number] [place] [address]- 2223 Jan, [facility] [place] [facility] [address] [id number] [place] [address]- 7884 Jan, [facility] [place] [facility] [address] [id number] [place] [address]- 5563 Nov, [facility] [place] [facility] [address] [id number] [place] [address]- 7134 Nov, [facility] [place] [facility] [address] [id number] [place] [address]- 7151 Oct, [facility] [place] [facility] [address] [id number] [place] [address]- 8013 Oct, [facility] [place] [facility] [address] [id number] [place] [address]- 1999 Sep, [facility] [place] [facility] [address] [id number] [place] [address]- 3679 Sep, [facility] [place] [facility] [address] [id number] [place] [address]- 2642 Aug, [facility] [place] [facility] [address] [id number] [place] [address]- 7376 Aug, [facility] [place] [facility] [address] [id number] [place] [address]- 1481 Aug, [facility] [place] [facility] [address] [id number] [place] 9070 Aug, [facility] [place] [facility] [address] [id number] [place] [address]- 5818 Aug, [facility] [place] [facility] [address] [id number] [place] [address]- 8964 Aug, [facility] [place] [facility] [address] [id number] [place] [address]- 5046 Aug, [facility] [place] [facility] [address] [id number] [place] [address]- 8292 Aug, [facility] [place] [facility] [address] [id number] [place] [address]- 5838 Jul, [facility] [place] [facility] [address] [id number] [place] [address]- 2469 Jul, [facility] [place] [facility] [address] [id number] [place] [address]- 3347 Jul, [facility] [place] [facility] [address] [id number] [place] [address]- 1033 Jul, [facility] [place] [facility] [address] [id number] [place] [address]- 5235 Jul, [facility] [place] [facility] [address] [id number] [place] [address]- 9963 Jul, [facility] [place] [facility] [address] [id number] [place] [address]- 3459 Jul, [facility] [place] [facility] [address] [id number] [place] [address]- 7877 Jul, [facility] [place] [facility] [address] [id number] [place] [address]- 7536 Jul, [facility] [place] [facility] [address] [id number] [place] [address]- 8435 June, [facility] [place] [facility] [address] [id number] [place] [address]- 3611 June, [facility] [place] [facility] [address] [id number] [place] [address]- 0220 May, [facility] [place] [facility] [address] [id number] [place] [address]- 6392 May, [facility] [place] [facility] [address] [id number] [place] [address]- 7130 May, [facility] [place] [facility] [address] [id number] [place] [address]- 3436 May, [facility] [place] [facility] [address] [id number] [place] [address]- 8176 May, [facility] [place] [facility] [address] [id number] [place] [address]- 8786 May, [facility] [place] [facility] [address] [id number] [place] [address]- 4509 May, [facility] [place] [facility] [address] [id number] [place] [address]- 8336 May, [facility] [place] [facility] [address] [id number] [place] [address]- 8960 May, [facility] [place] [facility] [address] [id number] [place] [address]- 5975 May, [facility] [place] [facility] [address] [id number] [place] [address]- 5065 May, [facility] [place] [facility] [address] [id number] [place] [address]- 6206 May, [facility] [place] [facility] [address] [id number] [place] [address]- 9398 Apr, [facility] [place] [facility] [address] [id number] [place] [address]- 1068 Apr, [facility] [place] [facility] [address] [id number] [place] [address]- 9542 Apr, [facility] [place] [facility] [address] [id number] [place] [address]- 8976 Apr, [facility] [place] [facility] [address] [id number] [place] 5075 Mar, [facility] [place] [facility] [address] [id number] [place] [address]- 7475 Mar, [facility] [place] [facility] [address] [id number] [place] [address]- 8609 Mar, [facility] [place] [facility] [address] [id number] [place] [address]- 3926 Mar, [facility] [place] [facility] [address] [facility] [id number] [place] [address]- 3806 Mar, 2013 [facility] [place] [facility] [address] [id number] [place] [address]- 6119 Mar, 2013 [facility] [place] [facility] [address] [id number] [place] [address] Mar, [facility] [place] [facility] [address] [facility] [id number] [place] [address] Mar, [facility] [place] [facility] [address] [facility] [id number] [place] [address] Mar, 2013 [facility] [place] [facility] [address] [facility] [id number] [place] [address] Mar, 2013 [facility] [place] [facility] [address] [facility] [id number] [place] [address] 14 Mar, 2013 [facility] [place] [facility] [address] [facility] [id number] [place] [address] 14 Mar, 2013 [facility] [place] [facility] [address] [facility] [id number] [place] [address] 13 Mar, 2013 [facility] [place] [facility] [address] [facility] [id number] [place] [address] 13 Mar, 2013 [facility] [place] [facility] [address] [facility] [id number] [place] [address] Mar, 2013 [facility] [place] [facility] [address] [facility] [id number] [place] [address] Mar, 2013 [facility] [place] [facility] [address] [facility] [id number] [place] [address] Mar, [facility] [place] [facility] [address] [id number] [place] [address] Mar, [facility] [place] [facility] [address] [id number] [place] [address] Mar, [facility] [place] [facility] [address] [id number] [place] [address]- [address] Mar, [facility] [place] [facility] [address] [id number] [place] [address] Feb, [facility] [place] [facility] [address] [id number] [place] [address] Feb, [facility] [place] [facility] [address] [id number] [place] [address] Feb, [facility] [place] [facility] [address] [id number] [place] [address] Feb, [facility] [place] [facility] [address] [id number] [place] [address]- [address] Feb, [facility] [place] [facility] [address] [id number] [place] [address] Feb, [facility] [facility] [address] [id number] [place] [address] Feb, [facility] [place] [facility] [address] [id number] [place] [address] Feb, [facility] [place] [facility] [address] [id number] [address] Feb, [facility] [place] [facility] [address] [id number] [place] [address] Feb, [facility] [place] [facility] [address] [id number] [place] [address] Feb, [facility] [place] [facility] [address] [id number] [place] [address] Feb, [facility] [place] [facility] [address] [id number] [place] [address] 17 Feb, 2013 [facility] [address] [id number] [place] [address] 16 Feb, 2013 [facility] [place] [facility] [address] [id number] [place] [address] 16 Feb, 2013 [facility] [place] [facility] [address] [id number] [place] [address] 15 Feb, 2013 [facility] [facility] [address] [id number] [place] [address] 15 Feb, 2013 [facility] [place] [facility] [address] [id number] [place] [address] 15 Feb, 2013 [facility] [place] [facility] [address] [id number] [place] [address] 15 Feb, 2013 [facility] [place] [facility] [address] [id number] [place] [address] 07 Feb, 2013 [facility] [place] [facility] [address] [id number] [place] [address] Feb, [facility] [facility] [address] [id number] [place] [address] Feb, [facility] [place] [facility] [address] [id number] [place] [address] Feb, [facility] [place] [facility] [address] [id number] [place] [address] 24 Jan, 2013 [facility] [address] [id number] [place] [address] Jan, [facility] [address] [id number] [place] [address] Jan, [facility] [address] [id number] [place] [address] 18 Jan, 2013 [facility] [address] [id number] [place] [address] Jan, [facility] [address] [id number] [place] [address]- [address] Jan, [facility] [address] [id number] [place] [address] Jan, [facility] [address] [id number] [place] [address] Jan, [facility] [facility] [address] [id number] [place] [address] Jan, [facility] [address] [id number] [place] [address] Jan, [facility] [address] [id number] [place] [address] Jan, [facility] [address] [id number] [place] [address] Jan, [facility] [address] [id number] [place] [address] Jan, [facility] [address] [id number] [place] [address] Dec, [facility] [address] [id number] [place] [address] Dec, [facility] [address] [id number] [place] [address] Dec, [facility] [address] [id number] [place] [address] Dec, [facility] [address] [id number] [place] [address]- [address] Dec, [facility] [address] [id number] [place] [address] Dec, [facility] [address] [id number] [place] [address] Nov, [facility] [address] [id number] [place] [address] Nov, [facility] [address] [id number] [address] Nov, [facility] [id number] [address] Nov, [facility] [id number] [address] Nov, [facility] [id number] [address] Nov, [facility] [id number] [address] [address], [address] [facility] [id number] [place] [address] [address], [address] [facility] [id number] [address] [address], [address] [facility] [id number] [address] [address], [address] [facility] [id number] [address] [address], [address] [facility] [id number] [address] 18 Oct, 2012 [facility] [id number] [address] 13 Oct, 2012 IMMUNIZATIONS No Known Immunizations SOCIAL HISTORY Never Assessed REASON FOR VISIT f/u-AB/MA, contract PLAN OF CARE Activity Details Follow Up 4 Weeks Reason: Follow-up VITAL SIGNS Height 59 in 2017-11-21 Weight 133.6 lbs 2017-11-21 Heart Rate 75 bpm 2017-11-21 Respiratory Rate 20 2017-11-21 BMI 26.98 kg/m2 2017-11-21 Blood pressure systolic 118 mmHg 2017-11-21 Blood pressure diastolic 70 mmHg 2017-11-21 MEDICATIONS Medication Instructions Dosage Frequency Start Date End Date Duration Status HydrOXYzine HCl 25 MG Orally three times a day as needed for anxiety 1 tablet Jan, 30 days Active Pristiq 50 mg Orally Once a day 1 tablet 24h 31 Aug, 2017 Active Protonix 40 mg Orally Once a day 1 tablet 24h 90 days Unknown Ondansetron 4 MG Orally every 8 hrs prn 1 tablet on the tongue and allow to dissolve 14 Unknown Promethazine HCl 25 MG Orally every 4 hrs 1 tablet as needed 4h Unknown Concerta 27 MG Orally Once a day in the morning 1 tablet Oct, Active Diflucan 150 MG Orally Once a day 1 tablet 24h 13 Mar, 2017 1 dose Unknown Trileptal 300 MG Orally Twice a day 1 tablet 12h 11 Oct, 2017 Active RESULTS No Results PROCEDURES No Known [...]
--- OUTSIDE RECORDS SUMMARY | 2017-12-03 14:18 | XMS REPORT ---
Author Author HARIKA RODRIGUEZ Organization [facility] Address [address] [place] [address] Care Team Providers Care Taker Off Braker Machine Name Role Phone JENNIFERHARIKA Unavailable PROBLEMS Type Condition ICD9-CM Code AKO08-BK Code Onset Dates Condition Status SNOMED Code Problem ADHD (attention deficit hyperactivity disorder), combined type F90.2 Active 44777077 Problem Rhinitis, unspecified type J31.0 Active 56468241 Problem Depressive disorder, not elsewhere classified F32.9 Active 46799347 Problem Anxiety state F41.1 Active 593069270 Problem Unspecified mood [affective] disorder F39 Active 83217097 Problem Irritable bowel syndrome with diarrhea K58.0 Active 777370214 Problem Major depressive disorder, single episode, mild F32.0 Active 54570606 Problem Slow transit constipation K59.01 Active 03574865 Problem Plantar wart of right foot B07.0 Active [id number] Problem Anxiety disorder, unspecified type F41.9 Active 392821825 ALLERGIES No Known Allergies ENCOUNTERS Encounter Location Date Diagnosis [facility] [id number] [place] [address] 96825- 0421 Dec, [facility] [id number] [place] [address] 72261- 9811 Nov, ADHD (attention deficit hyperactivity disorder), combined type F90.2 ; Anxiety disorder, unspecified type F41.9 and Unspecified mood [ affective] disorder F39 [facility] [id number] [place] [address] 73848- 1941 Oct, ADHD (attention deficit hyperactivity disorder), combined type F90.2 [facility] [address] [place] [address] 23489- 9978 Oct, ADHD (attention deficit hyperactivity disorder), combined type F90.2 ; Anxiety disorder, unspecified type F41.9 and Unspecified mood [ affective] disorder F39 [facility] [address] [address] 4[address] Sep, ADHD (attention deficit hyperactivity disorder), combined type F90.2 [facility] [address] [address] 87[address] Sep, [facility] [id number] [place] [address] 25407- 3562 Aug, ADHD (attention deficit hyperactivity disorder), combined type F90.2 ; Major depressive disorder, single episode, mild F32.0 and Anxiety disorder, unspecified type F41.9 [facility] [address] [address] Aug, Sore throat J02.9 ; Other specified bacterial agents as the cause of diseases classified elsewhere B96.89 and Acute tonsillitis due to other specified organisms J03.80 [facility] [address] [address] 50[address] Aug, ADHD (attention deficit hyperactivity disorder), combined type F90.2 [facility] [address] [address] 0217 Jul, ADHD (attention deficit hyperactivity disorder), combined type F90.2 [facility] [id number] [address] 0037 June, ADHD (attention deficit hyperactivity disorder), combined type F90.2 ; Major depressive disorder, single episode, mild F32.0 and Anxiety disorder, unspecified type F41.9 [facility] [id number] [address] 79[address] June, [facility] [address] [place] [address] 89146- 3516 June, ADHD (attention deficit hyperactivity disorder), combined type F90.2 [facility] [address], [place] [address] 3812 May, [facility] [address] [address] 0787 May, ADHD (attention deficit hyperactivity disorder), combined type F90.2 ; Major depressive disorder, single episode, mild F32.0 and Anxiety disorder, unspecified type F41.9 [facility] [id number] [address]- 9465 May, Anxiety disorder, unspecified type F41.9 [facility] [id number] [address]- 5[address] Apr, [place] [facility] [id number] [place] [address] 92794- 1081 Apr, Anxiety disorder, unspecified type F41.9 [facility] [id number] [address]- 5386 Apr, Anxiety disorder, unspecified type F41.9 ; Major depressive disorder, single episode, mild F32.0 and ADHD (attention deficit hyperactivity disorder), combined type F90.2 [facility] [address] [address]- 6776 Apr, [facility] [address], [place] [address]- 7164 Apr, ADHD (attention deficit hyperactivity disorder), combined type F90.2 ; Anxiety state F41.1 ; Depressive disorder, not elsewhere classified F32.9 ; Major depressive disorder, single episode, mild F32.0 and Anxiety disorder, unspecified type F41.9 [facility] [address] [address]- 5486 Mar, ADHD (attention deficit hyperactivity disorder), combined type F90.2 [facility] [address] [address]- 2835 Mar, Nausea R11.0 [facility] [id number] [place] [address] 56518- 8411 Mar, Screening for STD sexually transmitted disease Z11.3 ; Vaginal candidiasis B37.3 and Irritable bowel syndrome with diarrhea K58.0 [facility] [id number] [place] [address] 75111- 5081 04 Mar, 2017 [facility] [id number] [place] [address] 42336- 2990 Feb, ADHD (attention deficit hyperactivity disorder), combined type F90.2 [facility] [id number] [place] [address] 60776- 6155 Feb, Depressive disorder, not elsewhere classified F32.9 ; Anxiety state F41.1 and ADHD (attention deficit hyperactivity disorder), combined type F90.2 [place] [facility] [id number] [place] [address] 99435- 3440 Feb, Depressive disorder, not elsewhere classified F32.9 ; Anxiety state F41.1 and ADHD (attention deficit hyperactivity disorder), combined type F90.2 [place] [facility] [id number] [place] [address] 23172- 1361 Feb, ADHD (attention deficit hyperactivity disorder), combined type F90.2 [facility] [address] [place] [address] 55105 -0835 Jan, Other viral agents as the cause of diseases classified elsewhere B97.89 and Acute upper respiratory infection, unspecified J06.9 [place] [facility] [address] [place] [address] 38014- 0339 Jan, ADHD (attention deficit hyperactivity disorder), combined type F90.2 ; Major depressive disorder, single episode, mild F32.0 and Anxiety disorder, unspecified type F41.9 [place] [facility] [address] [place] [address] 67004- 8846 Jan, [place] [address] [place] [address] 21214- 2545 Jan, ADHD (attention deficit hyperactivity disorder), combined type F90.2 ; Major depressive disorder, single episode, mild F32.0 and Anxiety disorder, unspecified type F41.9 [place] [facility] [address] [place] [address] 00450- 8130 28 Dec, 2016 Irritable bowel syndrome with diarrhea K58.0 and Lower abdominal pain R10.30 [place] [facility] [id number] [place] [address] 37339- 4755 09 Dec, 2016 Hospital discharge follow-up Z09 ; Mesenteric adenitis I88.0 ; IBD (inflammatory bowel disease) K52.9 and Nausea R11.0 [place] [facility] [id number] [place] [address] 46120- 2117 Nov, ADHD (attention deficit hyperactivity disorder), combined type F90.2 ; Major depressive disorder, single episode, mild F32.0 and Anxiety disorder, unspecified type F41.9 [place] [facility] [id number] [place] [address] 96443- 0871 Nov, Anxiety state F41.1 ; ADHD (attention deficit hyperactivity disorder), combined type F90.2 ; Major depressive disorder, single episode, mild F32.0 and Anxiety disorder, unspecified type F41.9 [facility] [facility] [id number] [place] [address] 56393- 7021 Oct, Anxiety state F41.1 ; ADHD (attention deficit hyperactivity disorder), combined type F90.2 ; Major depressive disorder, single episode, mild F32.0 and Anxiety disorder, unspecified type F41.9 [facility] [facility] [id number] [place] [address] 26453- 9323 Oct, ADHD (attention deficit hyperactivity disorder), combined type F90.2 ; Major depressive disorder, single episode, mild F32.0 and Anxiety disorder, unspecified type F41.9 [facility] [facility] [id number] [place] [address] 26565- 1548 Oct, Major depressive disorder, single episode, mild F32.0 ; Anxiety state F41.1 ; ADHD (attention deficit hyperactivity disorder), combined type F90.2 and Depressive disorder, not elsewhere classified F32.9 [facility] [address] [place] [address] 56815 -7753 16 Oct, 2016 [facility] [id number] [place] [address] 20423 -7999 Oct, Cellulitis L03.90 and Plantar wart of right foot B07.0 [facility] [id number] [place] [address] 14454- 3260 Aug, ADHD (attention deficit hyperactivity disorder), combined type F90.2 ; Major depressive disorder, single episode, mild F32.0 and Anxiety disorder, unspecified type F41.9 [facility] [id number] [place] [address] 62215- 2861 Aug, [facility] [id number] [place] [address] 37032- 7405 Jul, ADHD (attention deficit hyperactivity disorder), combined type F90.2 [facility] [id number] [place] [address] 14307- 1281 Jul, Mesenteric adenitis I88.0 [facility] [id number] [place] [address] 55369- 4251 June, [facility] [id number] [place] [address] 27142 -7190 June, Lower abdominal pain R10.30 [facility] [id number] [place] [address] 87751- 0227 June, [facility] [id number] [place] [address] 77880- 7924 June, ADHD (attention deficit hyperactivity disorder), combined type F90.2 and Major depressive disorder, single episode, mild F32.0 [facility] [address] [place] [address] 91429- 9330 May, [facility] [id number] [place] [address] 79005- 1750 May, ADHD (attention deficit hyperactivity disorder), combined type F90.2 and Major depressive disorder, single episode, mild F32.0 [facility] [address] 09828 -1892 Apr, Abdominal pain R10.9 and Gastroenteritis and colitis, viral A08.4 [facility] [address] 28834- 9111 Apr, [facility] [address] 02982 -7733 Mar, Acute urticaria L50.8 [place] [address] 39761- 1994 Mar, [place] [address] 90264- 5408 Feb, [facility] [address] 16553 -4427 Feb, Gastroenteritis K52.9 [place] [address] 71893- 2749 Feb, Irritant contact dermatitis due to cosmetics L24.3 [place] [address] 53292- 2920 Jan, [place] [address] 60763- 1121 Jan, [place] [address] 94292- 8084 Jan, ADHD (attention deficit hyperactivity disorder), combined type F90.2 and Major depressive disorder, single episode, mild F32.0 [facility] [address] 07545 -6488 Dec, Flexural eczema L20.82 [place] [address] 53897- 1886 Dec, Encounter for test Z32.00 [facility] [id number] [place] [address] 91518- 7002 11 Dec, 2015 [facility] [id number] [place] [address] 82760- 2668 Dec, [facility] [id number] [place] [address] 58213- 1180 Dec, [facility] [address] 16130 -0424 Nov, Sore throat J02.9 and Pharyngitis, unspecified etiology J02.9 [facility] [id number] [place] [address] 83368- 4679 Nov, [facility] [id number] [place] [address] 51573- 3636 Nov, [facility] [address] 37795- 3779 Nov, Generalized abdominal pain R10.84 and Slow transit constipation K59.01 [facility] [id number] [place] [address] [id number] 05 Nov, 2015 Pharyngitis, unspecified etiology J02.9 and Rhinitis, unspecified type J31.0 [facility] [id number] [place] [address] 22651- 0759 29 Oct, 2015 Depressive disorder, not elsewhere classified F32.9 and ADHD (attention deficit hyperactivity disorder), combined type F90.2 [facility] [id number] [place] [address] 03039- 0476 29 Oct, 2015 [facility] [id number] [place] [address] 86046- 6091 Oct, [facility] [id number] [place] [address] 41650 -6918 20 Oct, 2015 Strep throat J02.0 [facility] [id number] [place] [address] 59083- 4654 16 Oct, 2015 [facility] [address] [facility] [id number] [address]- 0825 Oct, Well woman exam with routine gynecological exam Z01.419 and Screening for STD sexually transmitted disease Z11.3 [facility] [address] [facility] [id number] [address]- 8328 Sep, ADHD (attention deficit hyperactivity disorder), combined type F90.2 ; Anxiety state F41.1 and Depressive disorder, not elsewhere classified F32.9 [facility] [address] [facility] [id number], [place] [address]- 3949 Sep, ADHD (attention deficit hyperactivity disorder), combined type F90.2 and Depressive disorder, not elsewhere classified F32.9 [facility] [id number] [address]- 6329 Aug, [facility] [id number] [address]- 1900 Aug, ADHD (attention deficit hyperactivity disorder), combined type F90.2 and Depressive disorder, not elsewhere classified F32.9 [facility] [id number] [address]- 2404 Aug, ADHD (attention deficit hyperactivity disorder), combined type F90.2 ; Anxiety state F41.1 and Depressive disorder, not elsewhere classified F32.9 [facility] [id number] [address]- 2099 Aug, [facility] [id number] [address]- 1571 Aug, [facility] [id number], [place] [address]- 8666 Jul, ADHD (attention deficit hyperactivity disorder), combined type F90.2 ; Depressive disorder, not elsewhere classified F32.9 and Anxiety state F41.1 [facility] [id number] [address]- 1531 Jul, [facility] [id number] [address]- 0376 Jul, ADHD (attention deficit hyperactivity disorder), combined type F90.2 ; Anxiety state F41.1 and Depressive disorder, not elsewhere classified F32.9 [facility] [id number] [address]- 3353 June, [facility] [id number] [place] [address] [id number] June, Constipation K59.00 [facility] [id number] [place] [address] 38790- 3503 May, Constipation K59.00 [facility] [id number] [place] [address] 91324 -7429 May, Irritable bowel syndrome with diarrhea K58.0 [facility] [id number] [place] [address] 79546- 7447 May, [facility] [id number] [place] [address] 83678- 0121 May, [facility] [address] [place] [address] 82772- 7302 14 May, 2014 [facility] [id number] [address]- 9747 May, [facility] [address], [place] [address]- 4899 Jan, [facility] [address], [place] [address]- 3278 Jan, [facility] [address], [place] [address]- 2420 Jan, [facility] [address], [place] [address]- 3645 Jan, [facility] [address], [place] [address]- 6988 Jan, [facility] [id number] [address]- 3812 Jan, [facility] [place] [facility] [address] [id number] [place] [address]- 4446 Nov, [facility] [place] [facility] [address] [id number] [place] 0517 Nov, [facility] [place] [facility] [address] [id number] [place] [address]- 5979 Oct, [facility] [place] [facility] [address] [id number] [place] [address]- 4560 Oct, [facility] [place] [facility] [address] [id number] [place] [address]- 5730 Sep, [facility] [place] [facility] [address] [id number] [place] [address]- 2154 Sep, [facility] [place] [facility] [address] [id number] [place] [address]- 7043 Aug, [facility] [place] [facility] [address] [id number] [place] [address]- 9153 Aug, [facility] [place] [facility] [address] [id number] [place] [address]- 2337 Aug, [facility] [place] [facility] [address] [id number] [place] [address]- 2214 Aug, [facility] [place] [facility] [address] [id number] [place] [address]- 3237 Aug, [facility] [place] [facility] [address] [id number] [place] [address]- 1901 Aug, [facility] [place] [facility] [address] [id number] [place] [address]- 8905 Aug, [facility] [place] [facility] [address] [id number] [place] [address]- 1536 Aug, [facility] [place] [facility] [address] [id number] [place] [address]- 2957 Jul, [facility] [place] [facility] [address] [id number] [place] [address]- 4185 Jul, [facility] [place] [facility] [address] [id number] [place] [address]- 7393 Jul, [facility] [place] [facility] [address] [id number] [place] [address]- 9089 Jul, [facility] [place] [facility] [address] [id number] [place] [address]- 8697 Jul, [facility] [place] [facility] [address] [id number] [place] [address]- 5094 Jul, [facility] [place] [facility] [address] [id number] [place] [address]- 9380 Jul, [facility] [place] [facility] [address] [id number] [place] [address]- 2362 Jul, [facility] [place] [facility] [address] [id number] [place] [address]- 9375 Jul, [facility] [place] [facility] [address] [id number] [place] [address]- 2370 June, [facility] [place] [facility] [address] [id number] [place] [address]- 3926 June, [facility] [place] [facility] [address] [id number] [place] [address]- 8615 May, [facility] [place] [facility] [address] [id number], [place] [address]- 1274 May, [facility] [place] [facility] [address] [id number] [place] [address]- 1928 May, [facility] [place] [facility] [address] [id number] [place] [address]- 3135 May, [facility] [place] [facility] [address] [id number] [place] [address]- 0018 May, [facility] [place] [facility] [address] [id number] [place] [address]- 3481 May, [facility] [place] [facility] [address] [id number] [place] [address]- 9759 May, [facility] [place] [facility] [address] [id number] [place] [address]- 1484 May, [facility] [place] [facility] [address] [id number] [place] [address]- 4898 May, [facility] [place] [facility] [address] [id number] [place] [address]- 3259 May, [facility] [place] [facility] [address] [id number] [place] [address]- 8790 May, [facility] [place] [facility] [address] [id number] [place] [address]- 6354 May, [facility] [place] [facility] [address] [id number] [place] [address]- 9875 Apr, [facility] [place] [facility] [address] [id number] [place] [address]- 5759 Apr, [facility] [place] [facility] [address] [id number] [place] [address]- 4200 Apr, [facility] [place] [facility] [address] [id number] [place] [address]- 3854 Apr, [facility] [place] [facility] [address] [id number] [place] [address]- 1857 Mar, [facility] [place] [facility] [address] [id number] [place] [address]- 3270 Mar, [facility] [place] [facility] [address] [id number] [place] [address]- 6796 Mar, [facility] [place] [facility] [address] [id number] [place] [address]- 2851 Mar, [facility] [place] [facility] [address] [id number] [place] [address]- 1393 Mar, [facility] [place] [facility] [address] [id number] [place] [address] 2544 27 Mar, 2013 [facility] [place] [facility] [address] [id number] [place] [address]- 1446 Mar, 2013 [facility] [place] [facility] [address] [id number] [place] [address]- 2546 Mar, 2013 [facility] [place] [facility] [address] [id number] [place] [address] 2546 Mar, 2013 [facility] [place] [facility] [address] [id number] [place] [address]- 2548 Mar, [facility] [place] [facility] [address] [id number] [place] [address]- 2546 14 Mar, 2013 [facility] [place] [facility] [address] [id number] [place] [address]- 1505 14 Mar, 2013 [facility] [place] [facility] [address] [id number] [place] [address]- 1770 Mar, [facility] [place] [facility] [address] [id number] [place] [address]- 7527 Mar, [facility] [place] [facility] [address] [facility] [id number] [place] [address]- 6881 Mar, [facility] [place] [facility] [address] [facility] [id number] [place] [address]- 9273 Mar, [facility] [place] [facility] [address] [id number] [place] [address]- [address] Mar, 2013 [facility] [place] [facility] [address] [id number] [place] [address] Mar, [facility] [place] [facility] [address] [id number] [place] [address] Mar, [facility] [place] [facility] [address] [facility] [id number] [place] [address] Mar, [facility] [place] [facility] [address] [id number] [place] [address] Feb, [facility] [address] [id number] [place] [address] Feb, [facility] [place] [facility] [address] [id number] [place] [address] Feb, [facility] [address] [id number] [place] [address] Feb, [facility] [place] [facility] [address] [id number] [place] [address] Feb, [facility] [address] [id number] [place] [address] Feb, [facility] [place] [facility] [address] [id number] [place] [address] Feb, [facility] [place] [facility] [address] [id number] [place] [address] Feb, [facility] [address] [id number] [place] [address] Feb, [facility] [place] [facility] [address] [id number] [place] [address] Feb, [facility] [place] [facility] [address] [id number] [place] [address] Feb, [facility] [place] [facility] [address] [id number] [place] [address] Feb, [facility] [place] [facility] [address] [id number] [place] [address] Feb, [facility] [place] [facility] [address] [id number] [place] [address] Feb, [facility] [place] [facility] [address] [id number] [place] [address] Feb, [facility] [place] [facility] [address] [address] [id number] [place] [address] Feb, [facility] [address] [id number] [place] [address] 15 Feb, 2013 [facility] [place] [facility] [address] [id number] [place] [address] 15 Feb, 2013 [facility] [place] [facility] [address] [id number] [place] [address] Feb, [facility] [place] [facility] [address] [id number] [place] [address] Feb, [facility] [place] [facility] [address] [id number] [place] [address] Feb, [facility] [place] [facility] [address] [id number] [place] [address] Feb, [facility] [place] [facility] [address] [id number] [place] [address] Feb, [facility] [place] [facility] [address] [id number] [place] [address] Jan, [facility] [place] [facility] [address] [id number] [place] [address] 24 Jan, 2013 [facility] [place] [facility] [address] [id number] [place] [address] Jan, [facility] [place] [facility] [address] [id number] [place] [address] 18 Jan, 2013 [facility] [place] [facility] [address] [id number], [place] [address] 18 Jan, 2013 [facility] [place] [facility] [address] [id number] [place] [address] 18 Jan, 2013 [facility] [place] [facility] [address] [id number] [place] [address] 18 Jan, 2013 [facility] [place] [facility] [address] [id number] [place] [address]81 17 Jan, 2013 [facility] [place] [facility] [address] [id number] [place] [address] 17 Jan, 2013 [facility] [address] [id number] [place] [address] Jan, [facility] [place] [facility] [address] [id number] [place] [address] Jan, [facility] [place] [facility] [address] [id number] [place] [address] Jan, [facility] [place] [facility] [address] [id number] [place] [address] Jan, [facility] [place] [facility] [address] [id number] [place] [address] Dec, [facility] [place] [facility] [address] [id number] [place] [address] Dec, [facility] [place] [facility] [address] [id number] [place] [address] Dec, [facility] [place] [facility] [address] [id number] [place] [address] Dec, [facility] [place] [facility] [address] [id number] [place] [address] Dec, [facility] [place] [facility] [address] [facility] [id number] [place] [address] Dec, [facility] [place] [facility] [address] [id number] [place] [address] Nov, [facility] [place] [facility] [address] [id number], [place] [address] Nov, [facility] [place] [facility] [address] [id number] [place] [address] Nov, [facility] [place] [facility] [address] [id number], [place] [address] Nov, [facility] [place] [facility] [address] [facility] [id number], [place] [address] Nov, [facility] [place] [facility] [address] [id number], [place] [address] Nov, [facility] [id number], [place] [address] Oct, [facility] [id number], [place] [address] Oct, [facility] [id number], [place] [address] Oct, [facility] [id number], [place] [address] Oct, [facility] [id number], [place] [address] Oct, [facility] [id number], [place] [address] Oct, [facility] [id number], [place] [address] Oct, IMMUNIZATIONS No Known Immunizations SOCIAL HISTORY Never Assessed REASON FOR VISIT f/u. Letha CLEMONS PLAN OF CARE Activity Details Follow Up 3 Weeks Reason: f/u VITAL SIGNS Height 59 in 2017-10-31 Weight 133.6 lbs 2017-10-31 Heart Rate 98 bpm 2017-10-31 Respiratory Rate 18 2017-10-31 BMI 26.98 kg/m2 2017-10-31 Blood pressure systolic 118 mmHg 2017-10-31 Blood pressure diastolic 76 mmHg 2017-10-31 MEDICATIONS Medication Instructions Dosage Frequency Start Date End Date Duration Status Trileptal 300 MG Orally Twice a day 1 tablet 12h 11 Oct, 2017 30 day(s ) Active Concerta 27 MG Orally Once a day in the morning 1 tablet Sep, Active Pristiq 50 mg Orally Once a day 1 tablet 24h Aug, Active Diflucan 150 MG Orally Once a day 1 tablet 24h 13 Mar, 2017 1 dose Not -Taking HydrOXYzine HCl 25 MG Orally three times a day as needed for anxiety 1 tablet Jan, Active Promethazine HCl 25 MG Orally every 4 hrs 1 tablet as needed 4h Not-Taking Ondansetron 4 MG Orally every 8 hrs prn 1 tablet on the tongue and allow to dissolve 14 Not-Taking Protonix 40 mg Orally Once a day 1 tablet 24h 90 days Not-Taking RESULTS No Results PROCEDURES No Known [...]
--- OUTSIDE RECORDS SUMMARY | 2017-12-03 14:18 | XMS REPORT ---
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 Name Role Phone FINA, DAWOMID Unavailable PROBLEMS Type Condition ICD9-CM Code TPT11-PJ Code Onset Dates Condition Status SNOMED Code Problem ADHD (attention deficit hyperactivity disorder), combined type F90.2 Active 94499815 Problem Rhinitis, unspecified type J31.0 Active 20455573 Problem Depressive disorder, not elsewhere classified F32.9 Active 11785683 Problem Anxiety state F41.1 Active 386958515 Problem Unspecified mood [affective] disorder F39 Active 40768801 Problem Irritable bowel syndrome with diarrhea K58.0 Active 637308026 Problem Major depressive disorder, single episode, mild F32.0 Active 18153623 Problem Slow transit constipation K59.01 Active 03754647 Problem Plantar wart of right foot B07.0 Active [id number] Problem Anxiety disorder, unspecified type F41.9 Active [id number] ALLERGIES No Information ENCOUNTERS Encounter Location Date Diagnosis [facility] [address] [address] Dec, [facility] [address] [place] [address] 71500 -8893 Nov, Sore throat J02.9 and Acute nasopharyngitis J00 [facility] [id number] [place] [address] 65148- 1413 Nov, ADHD (attention deficit hyperactivity disorder), combined type F90.2 ; Anxiety disorder, unspecified type F41.9 and Unspecified mood [ affective] disorder F39 [facility] [id number] [address] Oct, ADHD (attention deficit hyperactivity disorder), combined type F90.2 [facility] [id number] [address] 6[address] Oct, ADHD (attention deficit hyperactivity disorder), combined type F90.2 ; Anxiety disorder, unspecified type F41.9 and Unspecified mood [ affective] disorder F39 [facility] [address] [address] 487[address] Sep, ADHD (attention deficit hyperactivity disorder), combined type F90.2 [facility] [address] [address] Sep, [facility] [address] [place] [address] 40289- 3365 Aug, ADHD (attention deficit hyperactivity disorder), combined type F90.2 ; Major depressive disorder, single episode, mild F32.0 and Anxiety disorder, unspecified type F41.9 [facility] [address] [address] Aug, Sore throat J02.9 ; Other specified bacterial agents as the cause of diseases classified elsewhere B96.89 and Acute tonsillitis due to other specified organisms J03.80 [facility] [address] [address] 75[address] Aug, ADHD (attention deficit hyperactivity disorder), combined type F90.2 [facility] [id number] [address] 3968 Jul, ADHD (attention deficit hyperactivity disorder), combined type F90.2 [facility] [id number] [address] 48[address] June, ADHD (attention deficit hyperactivity disorder), combined type F90.2 ; Major depressive disorder, single episode, mild F32.0 and Anxiety disorder, unspecified type F41.9 [facility] [id number] [address] 0[address] June, [facility] [id number] [address] 12[address] June, ADHD (attention deficit hyperactivity disorder), combined type F90.2 [facility] [address] [address] May, [facility] [id number] [address] 1833 May, ADHD (attention deficit hyperactivity disorder), combined type F90.2 ; Major depressive disorder, single episode, mild F32.0 and Anxiety disorder, unspecified type F41.9 [facility] [address] [address] 1704 May, Anxiety disorder, unspecified type F41.9 [facility] [id number] [place] [address] 72211- 8605 Apr, [facility] [id number] [address]- 4350 Apr, Anxiety disorder, unspecified type F41.9 [facility] [address] [address]- 3968 Apr, Anxiety disorder, unspecified type F41.9 ; Major depressive disorder, single episode, mild F32.0 and ADHD (attention deficit hyperactivity disorder), combined type F90.2 [facility] [address] [address] 23[address] Apr, [facility] [address] [address] 9627 Apr, ADHD (attention deficit hyperactivity disorder), combined type F90.2 ; Anxiety state F41.1 ; Depressive disorder, not elsewhere classified F32.9 ; Major depressive disorder, single episode, mild F32.0 and Anxiety disorder, unspecified type F41.9 [facility] [address] [address]- 7696 Mar, ADHD (attention deficit hyperactivity disorder), combined type F90.2 [facility] [address] [address] 5240 Mar, Nausea R11.0 [facility] [address] [place] [address] 81569- 5474 Mar, Screening for STD sexually transmitted disease Z11.3 ; Vaginal candidiasis B37.3 and Irritable bowel syndrome with diarrhea K58.0 [facility] [id number] [place] [address] 68571- 7863 Mar, [facility] [id number] [place] [address] 32148- 5367 Feb, ADHD (attention deficit hyperactivity disorder), combined type F90.2 [facility] [id number] [place] [address] 91515- 2875 Feb, Depressive disorder, not elsewhere classified F32.9 ; Anxiety state F41.1 and ADHD (attention deficit hyperactivity disorder), combined type F90.2 [facility] [id number] [place] [address] 21907- 3027 Feb, Depressive disorder, not elsewhere classified F32.9 ; Anxiety state F41.1 and ADHD (attention deficit hyperactivity disorder), combined type F90.2 [facility] [id number] [place] [address] 62380- 6947 Feb, ADHD (attention deficit hyperactivity disorder), combined type F90.2 [facility] [address] [place] [address] 32184 -0602 Jan, Other viral agents as the cause of diseases classified elsewhere B97.89 and Acute upper respiratory infection, unspecified J06.9 [facility] [address] [place] [address] 06144- 0841 Jan, ADHD (attention deficit hyperactivity disorder), combined type F90.2 ; Major depressive disorder, single episode, mild F32.0 and Anxiety disorder, unspecified type F41.9 [facility] [address] [address]- 1485 Jan, [facility] [address] [address]- 4358 Jan, ADHD (attention deficit hyperactivity disorder), combined type F90.2 ; Major depressive disorder, single episode, mild F32.0 and Anxiety disorder, unspecified type F41.9 [facility] [id number] [place] [address] 19126- 8481 Dec, Irritable bowel syndrome with diarrhea K58.0 and Lower abdominal pain R10.30 [facility] [id number] [place] [address] 58786- 4797 09 Dec, 2016 Hospital discharge follow-up Z09 ; Mesenteric adenitis I88.0 ; IBD (inflammatory bowel disease) K52.9 and Nausea R11.0 [place] [facility] [id number] [place] [address] 00469- 2423 Nov, ADHD (attention deficit hyperactivity disorder), combined type F90.2 ; Major depressive disorder, single episode, mild F32.0 and Anxiety disorder, unspecified type F41.9 [facility] [id number] [place] [address] 65673- 6353 Nov, Anxiety state F41.1 ; ADHD (attention deficit hyperactivity disorder), combined type F90.2 ; Major depressive disorder, single episode, mild F32.0 and Anxiety disorder, unspecified type F41.9 [facility] [facility] [address] [address]- 4674 Oct, Anxiety state F41.1 ; ADHD (attention deficit hyperactivity disorder), combined type F90.2 ; Major depressive disorder, single episode, mild F32.0 and Anxiety disorder, unspecified type F41.9 [facility] [id number] [place] [address] 57923- 6325 Oct, ADHD (attention deficit hyperactivity disorder), combined type F90.2 ; Major depressive disorder, single episode, mild F32.0 and Anxiety disorder, unspecified type F41.9 [facility] [id number] [place] [address] 93014- 3681 Oct, Major depressive disorder, single episode, mild F32.0 ; Anxiety state F41.1 ; ADHD (attention deficit hyperactivity disorder), combined type F90.2 and Depressive disorder, not elsewhere classified F32.9 [facility] [id number] [place] [address] 48777 -4558 16 Oct, 2016 [facility] [id number] [place] [address] 75429 -8119 Oct, Cellulitis L03.90 and Plantar wart of right foot B07.0 [facility] [id number] [place] [address] 14424- 5934 Aug, ADHD (attention deficit hyperactivity disorder), combined type F90.2 ; Major depressive disorder, single episode, mild F32.0 and Anxiety disorder, unspecified type F41.9 [facility] [id number] [place] [address] 54982- 7036 Aug, [facility] [id number] [place] [address] 94622- 0370 Jul, ADHD (attention deficit hyperactivity disorder), combined type F90.2 [facility] [id number] [place] [address] 74030- 4408 Jul, Mesenteric adenitis I88.0 [facility] [id number] [place] [address] 74376- 4397 June, [facility] [id number] [place] [address] 82875 -5100 June, Lower abdominal pain R10.30 [facility] [id number] [place] [address] 55145- 3235 June, [facility] [id number] [place] [address] 48831- 3258 June, ADHD (attention deficit hyperactivity disorder), combined type F90.2 and Major depressive disorder, single episode, mild F32.0 [facility] [id number] [place] [address] 51427- 6336 May, [facility] [id number] [place] [address] 54402- 8869 May, ADHD (attention deficit hyperactivity disorder), combined type F90.2 and Major depressive disorder, single episode, mild F32.0 [facility] [id number] [place] [address] 13498 -4171 Apr, Abdominal pain R10.9 and Gastroenteritis and colitis, viral A08.4 [facility] [id number] [place] [address] 97370- 7844 Apr, [facility] [address] [address] Mar, Acute urticaria L50.8 [place] [id number] [place] [address] 17538- 7631 Mar, [place] [id number] [place] [address] 55129- 6864 Feb, [facility] [id number] [place] [address] 44952 -4557 Feb, Gastroenteritis K52.9 [place] [id number] [place] [address] 44017- 9845 Feb, Irritant contact dermatitis due to cosmetics L24.3 [place] [facility] [id number] [place] [address] 07842- 5006 Jan, [place] [facility] [id number] [place] [address] 72554- 8172 Jan, [address] [facility] [id number] [place] [address] 16035- 1677 Jan, ADHD (attention deficit hyperactivity disorder), combined type F90.2 and Major depressive disorder, single episode, mild F32.0 [facility] [id number] [place] [address] 44024 -3189 Dec, Flexural eczema L20.82 [facility] [id number] [place] [address] 49407- 6338 Dec, Encounter for test Z32.00 [facility] [address] 33078- 8887 Dec, [facility] [address] 47484- 3662 Dec, [facility] [address] 04715- 5760 Dec, [facility] [address] 50907 -3754 Nov, Sore throat J02.9 and Pharyngitis, unspecified etiology J02.9 [facility] [address] 42630- 6673 Nov, [facility] [address] 68836- 0771 Nov, [facility] [address] 73858- 7469 Nov, Generalized abdominal pain R10.84 and Slow transit constipation K59.01 [facility] [id number] [place] [address] [phone] Nov, Pharyngitis, unspecified etiology J02.9 and Rhinitis, unspecified type J31.0 [facility] [id number] [place] [address] 96483- 2374 Oct, Depressive disorder, not elsewhere classified F32.9 and ADHD (attention deficit hyperactivity disorder), combined type F90.2 [facility] [address] 80994- 8935 Oct, [facility] [id number] [place] [address] 36602- 9227 Oct, [facility] [address] 61852 -8890 Oct, Strep throat J02.0 [facility] [address] [address]- 5404 Oct, [place] [facility] [id number] [place] [address] 06573- 4900 Oct, Well woman exam with routine gynecological exam Z01.419 and Screening for STD sexually transmitted disease Z11.3 [place] [facility] [id number] [place] [address] 14618- 3438 Sep, ADHD (attention deficit hyperactivity disorder), combined type F90.2 ; Anxiety state F41.1 and Depressive disorder, not elsewhere classified F32.9 [place] [facility] [id number] [place] [address] 55917- 1071 Sep, ADHD (attention deficit hyperactivity disorder), combined type F90.2 and Depressive disorder, not elsewhere classified F32.9 [place] [facility] [id number] [place] [address] 42263- 9100 Aug, [facility] [facility] [id number] [place] [address] 29455- 8265 Aug, ADHD (attention deficit hyperactivity disorder), combined type F90.2 and Depressive disorder, not elsewhere classified F32.9 [facility] [address] [place] [address] 87510- 4993 Aug, ADHD (attention deficit hyperactivity disorder), combined type F90.2 ; Anxiety state F41.1 and Depressive disorder, not elsewhere classified F32.9 [facility] [address] [address]- 6146 Aug, [facility] [id number] [place] [address] 14144- 1653 Aug, [facility] [facility] [address] [place] [address] 27985- 3285 Jul, ADHD (attention deficit hyperactivity disorder), combined type F90.2 ; Depressive disorder, not elsewhere classified F32.9 and Anxiety state F41.1 [facility] [id number] [place] [address] 19238- 5781 Jul, [facility] [id number] [place] [address] 58054- 0317 Jul, ADHD (attention deficit hyperactivity disorder), combined type F90.2 ; Anxiety state F41.1 and Depressive disorder, not elsewhere classified F32.9 [facility] [id number] [place] [address] 25245- 4180 June, [facility] [id number] [place] [address] [id number] June, Constipation K59.00 [facility] [id number] [place] [address] 82136- 6619 May, Constipation K59.00 [facility] [id number] [place] [address] 14718 -9303 May, Irritable bowel syndrome with diarrhea K58.0 [facility] [id number] [place] [address] 36882- 6835 May, [facility] [id number] [place] [address] 36347- 0313 May, [facility] [id number] [place] [address] 56692- 4434 14 May, 2014 [facility] [id number] [place] [address] 33583- 3313 May, [facility] [address] [place] [address] 10236- 0505 Jan, [facility] [id number] [place] [address] 96082- 1578 Jan, [facility] [id number] [place] [address] 13403- 4863 Jan, [facility] [id number] [place] [address] 68688- 9655 Jan, [facility] [place] [facility] [address] [id number] [place] [address]- 3553 Jan, [facility] [place] [facility] [address] [id number] [place]- 8585 Jan, [facility] [place] [facility] [address] [id number] [place]- 6717 Nov, [facility] [place] [facility] [address] [id number] [place] [address]- 5148 Nov, [facility] [place] [facility] [address] [id number] [place] 3826 Oct, [facility] [place] [facility] [address] [id number] [place] [address]- 2223 Oct, [facility] [place] [facility] [address] [id number] [place] [address]- 1263 Sep, [facility] [place] [facility] [address] [id number] [place] [address]- 5854 Sep, [facility] [place] [facility] [address] [id number] [place] [address]- 5157 Aug, [facility] [place] [facility] [address] [id number] [place] [address]- 8424 Aug, [facility] [place] [facility] [address] [id number] [place] [address]- 8658 Aug, [facility] [place] [facility] [address] [id number] [address]- 5177 Aug, [facility] [place] [facility] [address] [id number] [place] 7708 Aug, [facility] [place] [facility] [address] [id number] [place] [address]- 2121 Aug, [facility] [place] [facility] [address] [id number] [place] [address]- 2809 Aug, [facility] [place] [facility] [address] [id number] [place] [address]- 9131 Aug, [facility] [place] [facility] [address] [id number] [place] [address]- 5605 Jul, [facility] [place] [facility] [address] [id number] [place] [address]- 9658 Jul, [facility] [place] [facility] [address] [id number] [place] [address]- 4493 Jul, [facility] [place] [facility] [address] [id number] [place] [address]- 6339 Jul, [facility] [place] [facility] [address] [id number] [place] [address]- 4972 Jul, [facility] [place] [facility] [address] [id number] [place] [address]- 3488 Jul, [facility] [place] [facility] [address] [facility] [id number] [place] [address]- 8247 Jul, [facility] [place] [facility] [address] [id number] [place] [address]- 9813 Jul, [facility] [place] [facility] [address] [id number] [place] [address]- 9612 Jul, [facility] [place] [facility] [address] [facility] [id number] [place] [address]- 6680 June, [facility] [place] [facility] [address] [id number] [place] [address]- 4319 June, [facility] [place] [facility] [address] [id number] [address]- 0655 May, [facility] [place] [facility] [address] [id number] [place] [address]- 8169 May, [facility] [place] [facility] [address] [id number] [place] [address]- 1451 May, [facility] [place] [facility] [address] [id number] [place] [address]- 3117 May, [facility] [place] [facility] [address] [id number] [place] [address]- 9698 May, [facility] [place] [facility] [address] [id number] [place] [address]- 7002 May, [facility] [place] [facility] [address] [id number] [place] [address]- 0956 May, [facility] [place] [facility] [address] [id number] [place] [address]- 6477 May, [facility] [place] [facility] [address] [id number] [place] [address]- 7663 May, [facility] [place] [facility] [address] [id number] [place] [address]- 3412 May, [facility] [place] [facility] [address] [id number] [place] [address]- 5266 May, [facility] [place] [facility] [address] [id number] [place] [address]- 3486 May, [facility] [place] [facility] [address] [id number] [place] [address]- 6568 Apr, [facility] [place] [facility] [address] [id number] [place] [address]- 0603 Apr, [facility] [place] [facility] [address] [id number] [place] [address]- 0797 Apr, [facility] [place] [facility] [address] [id number] [place] [address]- 6535 Apr, [facility] [place] [facility] [address] [id number] [place] [address]- 0032 Mar, [facility] [place] [facility] [address] [id number] [place] [address]- 4538 Mar, [facility] [place] [facility] [address] [id number] [place] [address]- 0994 Mar, [facility] [place] [facility] [address] [id number] [place] [address]- 0716 28 Mar, 2013 [facility] [place] [facility] [address] [id number] [place] [address]- 3756 Mar, [facility] [place] [facility] [address] [id number] [place] [address]- 5786 27 Mar, 2013 [facility] [place] [facility] [address] [facility] [id number] [place] [address]- 8556 19 Mar, 2013 [facility] [place] [facility] [address] [id number] [place] [address]- 1333 19 Mar, 2013 [facility] [place] [facility] [address] [id number] [place] [address]- 1862 Mar, 2013 [facility] [place] [facility] [address] [id number] [place] [address]- 5926 19 Mar, 2013 [facility] [place] [facility] [address] [facility] [id number] [place] [address]- 0656 14 Mar, 2013 [facility] [place] [facility] [address] [facility] [id number] [place] [address]- 2545 14 Mar, 2013 [facility] [place] [facility] [address] [facility] [id number] [place] [address] 13 Mar, 2013 [facility] [place] [facility] [address] [facility] [id number] [place] [address] 13 Mar, 2013 [facility] [place] [facility] [address] [facility] [id number] [place] [address] Mar, 2013 [facility] [place] [facility] [address] [facility] [id number] [place] [address] 11 Mar, 2013 [facility] [place] [facility] [address] [id number] [place] [address] 11 Mar, 2013 [facility] [place] [facility] [address] [facility] [id number] [place] [address] 11 Mar, 2013 [facility] [place] [facility] [address] [facility] [id number] [place] [address] Mar, [facility] [place] [facility] [address] [id number] [place] [address] Mar, [facility] [place] [facility] [address] [id number] [place] [address] Feb, [facility] [place] [facility] [address] [id number] [place] [address] Feb, [facility] [place] [facility] [address] [id number] [place] [address] Feb, [facility] [place] [facility] [address] [id number] [place] [address] Feb, [facility] [place] [facility] [address] [id number] [place] [address] Feb, [facility] [place] [facility] [address] [id number] [place] [address] Feb, [facility] [place] [facility] [address] [id number] [place] [address] Feb, [facility] [place] [facility] [address] [id number] [place] [address] Feb, [facility] [place] [facility] [address] [id number] [place] [address] Feb, [facility] [place] [facility] [address] [id number] [place] [address] Feb, [facility] [place] [facility] [address] [id number] [place] [address] Feb, [facility] [place] [facility] [address] [id number] [place] [address] Feb, [facility] [place] [facility] [address] [id number] [place] [address] Feb, [facility] [place] [facility] [address] [id number] [place] [address] Feb, [facility] [place] [facility] [address] [id number] [place] [address] 16 Feb, 2013 [facility] [address] [id number] [place] [address] 15 Feb, 2013 [facility] [place] [facility] [address] [id number] [place] [address] 15 Feb, 2013 [facility] [place] [facility] [address] [id number] [place] [address] 15 Feb, 2013 [facility] [place] [facility] [address] [id number] [place] [address]85 15 Feb, 2013 [facility] [place] [facility] [address] [id number] [place] [address] Feb, [facility] [place] [facility] [address] [id number] [place] [address] Feb, [facility] [address] [id number] [place] [address] Feb, [facility] [place] [facility] [address] [id number] [place] [address] Feb, [facility] [place] [facility] [address] [id number] [place] [address] 24 Jan, 2013 [facility] [place] [facility] [address] [id number] [place] [address] 24 Jan, 2013 [facility] [place] [facility] [address] [id number] [place] [address] 19 Jan, 2013 [facility] [place] [facility] [address] [id number] [place] [address] 18 Jan, 2013 [facility] [place] [facility] [address] [id number] [place] [address] 18 Jan, 2013 [facility] [place] [facility] [address] [id number] [place] [address] 18 Jan, 2013 [facility] [place] [facility] [address] [id number] [place] [address] 18 Jan, 2013 [facility] [place] [facility] [address] [id number] [place] [address] Jan, [facility] [address] [id number] [place] [address] Jan, [facility] [place] [facility] [address] [id number] [place] [address] Jan, [facility] [place] [facility] [address] [id number] [place] [address] Jan, [facility] [address] [id number] [place] [address] Jan, [facility] [address] [id number] [place] [address] Jan, [facility] [address] [id number] [place] [address] Dec, [facility] [address] [id number] [place] [address] Dec, [facility] [address] [id number] [place] [address] Dec, [facility] [address] [id number] [place] [address] Dec, [facility] [address] [id number] [place] [address] Dec, [facility] [place] [facility] [address] [id number] [place] [address] Dec, [facility] [place] [facility] [address] [id number] [place] [address] Nov, [facility] [place] [facility] [address] [id number] [place] [address] Nov, [facility] [place] [facility] [address] [id number] [place] [address] Nov, [facility] [place] [facility] [address] [id number] [place] [address] Nov, [facility] [id number] [address] Nov, [facility] [address] [id number] [address] Nov, [facility] [id number] [address] 28 Oct, 2012 [facility] [id number] [address] 27 Oct, 2012 [facility] [id number] [address] Oct, [facility] [id number] [address] Oct, [facility] [id number] [address] Oct, [facility] [id number] [address] Oct, [facility] [address] [id number] [address] Oct, IMMUNIZATIONS No Known Immunizations SOCIAL HISTORY Never Assessed REASON FOR VISIT Controlled Med Refill PLAN OF CARE VITAL SIGNS MEDICATIONS Medication Instructions Dosage Frequency Start Date End Date Duration Status Concerta 27 MG Orally Once a day in the morning 1 tablet Oct, 28 days Active RESULTS No Results PROCEDURES [...]
--- OUTSIDE RECORDS SUMMARY | 2017-12-03 14:19 | XMS REPORT ---
Author Author HARIKA RODRIGUEZ [facility] Address [address] [place] [address] Care Team Providers Care Refrigeration Technician Name Role Phone HARIKA RODRIGUEZ Unavailable PROBLEMS Type Condition ICD9-CM Code QYQ90-MB Code Onset Dates Condition Status SNOMED Code Problem ADHD (attention deficit hyperactivity disorder), combined type F90.2 Active 53265965 Problem Rhinitis, unspecified type J31.0 Active 81486574 Problem Depressive disorder, not elsewhere classified F32.9 Active 27867186 Problem Anxiety state F41.1 Active 260885906 Problem Unspecified mood [affective] disorder F39 Active 26420625 Problem Irritable bowel syndrome with diarrhea K58.0 Active 293355264 Problem Major depressive disorder, single episode, mild F32.0 Active 90442841 Problem Slow transit constipation K59.01 Active 98133133 Problem Plantar wart of right foot B07.0 Active [id number] Problem Anxiety disorder, unspecified type F41.9 Active 628230759 ALLERGIES No Information ENCOUNTERS Encounter Location Date Diagnosis [facility] [id number] [place] [address] 58061- 2888 Nov, [facility] [id number] [place] [address] 18614- 6772 Oct, ADHD (attention deficit hyperactivity disorder), combined type F90.2 ; Anxiety disorder, unspecified type F41.9 and Unspecified mood [ affective] disorder F39 [facility] [id number] [place] [address] 79604- 3670 Sep, ADHD (attention deficit hyperactivity disorder), combined type F90.2 [facility] [id number] [place] [address] 05418- 0544 Sep, [facility] [id number] [place] [address] 58135- 1322 Aug, ADHD (attention deficit hyperactivity disorder), combined type F90.2 ; Major depressive disorder, single episode, mild F32.0 and Anxiety disorder, unspecified type F41.9 [facility] [address], [place] [address] Aug, Sore throat J02.9 ; Other specified bacterial agents as the cause of diseases classified elsewhere B96.89 and Acute tonsillitis due to other specified organisms J03.80 [facility] [address] [address] 3[address] Aug, ADHD (attention deficit hyperactivity disorder), combined type F90.2 [facility] [address], [place] [address] 0577 Jul, ADHD (attention deficit hyperactivity disorder), combined type F90.2 [facility] [address], [place] [address] June, ADHD (attention deficit hyperactivity disorder), combined type F90.2 ; Major depressive disorder, single episode, mild F32.0 and Anxiety disorder, unspecified type F41.9 [facility] [address], [place] [address] June, [facility] [address] [address] 3[address] June, ADHD (attention deficit hyperactivity disorder), combined type F90.2 [facility] [id number] [address] 2018 May, [facility] [id number] [address] 40[address] May, ADHD (attention deficit hyperactivity disorder), combined type F90.2 ; Major depressive disorder, single episode, mild F32.0 and Anxiety disorder, unspecified type F41.9 [facility] [id number] [address] 58[address] May, Anxiety disorder, unspecified type F41.9 [facility] [id number] [place] [address] 21370- 5573 Apr, [facility] [id number] [place] [address] 53540- 7788 Apr, Anxiety disorder, unspecified type F41.9 [facility] [id number] [place] [address] 47064- 5741 Apr, Anxiety disorder, unspecified type F41.9 ; Major depressive disorder, single episode, mild F32.0 and ADHD (attention deficit hyperactivity disorder), combined type F90.2 [facility] [id number] [place] [address] 81863- 3106 Apr, [facility] [id number] [place] [address] 43305- 7218 Apr, ADHD (attention deficit hyperactivity disorder), combined type F90.2 ; Anxiety state F41.1 ; Depressive disorder, not elsewhere classified F32.9 ; Major depressive disorder, single episode, mild F32.0 and Anxiety disorder, unspecified type F41.9 [facility] [id number] [place] [address] 25536- 6925 Mar, ADHD (attention deficit hyperactivity disorder), combined type F90.2 [facility] [id number] [place] [address] 60107- 8699 Mar, Nausea R11.0 [facility] [id number] [place] [address] 37026- 7149 Mar, Screening for STD sexually transmitted disease Z11.3 ; Vaginal candidiasis B37.3 and Irritable bowel syndrome with diarrhea K58.0 [facility] [id number] [place] [address] 68035- 8529 Mar, [facility] [id number] [place] [address] 50994- 0797 Feb, ADHD (attention deficit hyperactivity disorder), combined type F90.2 [place] [address], [place] [address] 9268 Feb, Depressive disorder, not elsewhere classified F32.9 ; Anxiety state F41.1 and ADHD (attention deficit hyperactivity disorder), combined type F90.2 [facility] [address], [place] [address] 1387 Feb, Depressive disorder, not elsewhere classified F32.9 ; Anxiety state F41.1 and ADHD (attention deficit hyperactivity disorder), combined type F90.2 [facility] [address] [place] [address] 58887- 4495 Feb, ADHD (attention deficit hyperactivity disorder), combined type F90.2 [facility] [address] [place] [address] 34419 -4045 Jan, Other viral agents as the cause of diseases classified elsewhere B97.89 and Acute upper respiratory infection, unspecified J06.9 [place] [facility] [id number] [place] [address] 21458- 4605 Jan, ADHD (attention deficit hyperactivity disorder), combined type F90.2 ; Major depressive disorder, single episode, mild F32.0 and Anxiety disorder, unspecified type F41.9 [place] [facility] [address], [place] [address]- 4005 Jan, [facility] [address] [place] [address] 36116- 4647 Jan, ADHD (attention deficit hyperactivity disorder), combined type F90.2 ; Major depressive disorder, single episode, mild F32.0 and Anxiety disorder, unspecified type F41.9 [facility] [address] [place] [address] 78418- 1856 Dec, Irritable bowel syndrome with diarrhea K58.0 and Lower abdominal pain R10.30 [facility] [address], [place] [address] 7877 09 Dec, 2016 Hospital discharge follow-up Z09 ; Mesenteric adenitis I88.0 ; IBD (inflammatory bowel disease) K52.9 and Nausea R11.0 [facility] [facility] [id number] [place] [address] 33279- 4533 Nov, ADHD (attention deficit hyperactivity disorder), combined type F90.2 ; Major depressive disorder, single episode, mild F32.0 and Anxiety disorder, unspecified type F41.9 [place] [address] 83161- 7764 Nov, Anxiety state F41.1 ; ADHD (attention deficit hyperactivity disorder), combined type F90.2 ; Major depressive disorder, single episode, mild F32.0 and Anxiety disorder, unspecified type F41.9 [facility] [facility] [id number] [place] [address] 11778- 1207 Oct, Anxiety state F41.1 ; ADHD (attention deficit hyperactivity disorder), combined type F90.2 ; Major depressive disorder, single episode, mild F32.0 and Anxiety disorder, unspecified type F41.9 [facility] [facility] [id number] [place] [address] 67382- 2706 Oct, ADHD (attention deficit hyperactivity disorder), combined type F90.2 ; Major depressive disorder, single episode, mild F32.0 and Anxiety disorder, unspecified type F41.9 [facility] [facility] [id number] [place] [address] 46719- 7862 Oct, Major depressive disorder, single episode, mild F32.0 ; Anxiety state F41.1 ; ADHD (attention deficit hyperactivity disorder), combined type F90.2 and Depressive disorder, not elsewhere classified F32.9 [facility] [id number] [place] [address] 87386 -0336 Oct, [facility] [id number] [place] [address] 25734 -4255 Oct, Cellulitis L03.90 and Plantar wart of right foot B07.0 [place] [facility] [id number] [place] [address] 15688- 3414 Aug, ADHD (attention deficit hyperactivity disorder), combined type F90.2 ; Major depressive disorder, single episode, mild F32.0 and Anxiety disorder, unspecified type F41.9 [place] [facility] [id number] [place] [address] 28707- 7691 Aug, [place] [facility] [id number] [place] [address] 62291- 7945 Jul, ADHD (attention deficit hyperactivity disorder), combined type F90.2 [facility] [id number] [place] [address] 52107- 9162 Jul, Mesenteric adenitis I88.0 [place] [address] 38907- 1968 June, [facility] [id number] [place] [address] 26819 -3685 June, Lower abdominal pain R10.30 [place] [facility] [id number] [place] [address] 49864- 5974 June, [place] [facility] [id number] [place] [address] 84066- 9793 June, ADHD (attention deficit hyperactivity disorder), combined type F90.2 and Major depressive disorder, single episode, mild F32.0 [place] [facility] [id number] [place] [address] 21352- 4041 May, [place] [facility] [id number] [place] [address] 19118- 9753 May, ADHD (attention deficit hyperactivity disorder), combined type F90.2 and Major depressive disorder, single episode, mild F32.0 [facility] [id number] [place] [address] 92030 -7245 Apr, Abdominal pain R10.9 and Gastroenteritis and colitis, viral A08.4 [place] [facility] [id number] [place] [address] 17116- 6986 Apr, [facility] [id number] [place] [address] 44240 -1976 Mar, Acute urticaria L50.8 [facility] [address] 36222- 6658 Mar, [facility] [address] 01277- 4391 Feb, [facility] [address] 61967 -7382 Feb, Gastroenteritis K52.9 [facility] [address] 78902- 9331 Feb, Irritant contact dermatitis due to cosmetics L24.3 [place] [address] 87259- 7477 Jan, [place] [address] 37022- 5679 Jan, [facility] [address] 09833- 5761 Jan, ADHD (attention deficit hyperactivity disorder), combined type F90.2 and Major depressive disorder, single episode, mild F32.0 [facility] [id number] [place] [address] 73009 -3813 Dec, Flexural eczema L20.82 [place] [address] 55633- 7841 Dec, Encounter for test Z32.00 [facility] [id number] [place] [address] 39062- 2678 Dec, [place] [address] 41592- 0415 Dec, [place] [id number] [place] [address] 06276- 8727 Dec, [facility] [address] 98328 -6109 Nov, Sore throat J02.9 and Pharyngitis, unspecified etiology J02.9 [facility] [id number] [place] [address] 01831- 0280 Nov, [facility] [id number] [place] [address] 56234- 3507 Nov, [facility] [address] 92821- 2121 Nov, Generalized abdominal pain R10.84 and Slow transit constipation K59.01 [facility] [id number] [place] [address] [id number] Nov, Pharyngitis, unspecified etiology J02.9 and Rhinitis, unspecified type J31.0 [facility] [id number] [place] [address] 40118- 1793 Oct, Depressive disorder, not elsewhere classified F32.9 and ADHD (attention deficit hyperactivity disorder), combined type F90.2 [facility] [id number] [place] [address] 12758- 1394 Oct, [facility] [id number] [place] [address] 45885- 7163 Oct, [facility] [id number] [place] [address] 84136 -0661 Oct, Strep throat J02.0 [facility] [id number] [place] [address] 22305- 3195 16 Oct, 2015 [facility] [id number] [place] [address] 70523- 6362 09 Oct, 2015 Well woman exam with routine gynecological exam Z01.419 and Screening for STD sexually transmitted disease Z11.3 [facility] [id number] [place] [address] 29335- 1016 Sep, ADHD (attention deficit hyperactivity disorder), combined type F90.2 ; Anxiety state F41.1 and Depressive disorder, not elsewhere classified F32.9 [facility] [id number], [place] [address]- 8761 Sep, ADHD (attention deficit hyperactivity disorder), combined type F90.2 and Depressive disorder, not elsewhere classified F32.9 [facility] [address] [facility] [id number] [address]- 0307 Aug, [facility] [id number] [place] [address] 21715- 7820 Aug, ADHD (attention deficit hyperactivity disorder), combined type F90.2 and Depressive disorder, not elsewhere classified F32.9 [facility] [id number] [place] [address] 33779- 7763 Aug, ADHD (attention deficit hyperactivity disorder), combined type F90.2 ; Anxiety state F41.1 and Depressive disorder, not elsewhere classified F32.9 [facility] [id number] [address]- 0286 Aug, [facility] [id number], [place] [address]- 6187 Aug, [facility] [id number], [place] [address]- 1047 Jul, ADHD (attention deficit hyperactivity disorder), combined type F90.2 ; Depressive disorder, not elsewhere classified F32.9 and Anxiety state F41.1 [facility] [id number], [place] [address]- 0541 Jul, [facility] [id number], [place] [address]- 1569 Jul, ADHD (attention deficit hyperactivity disorder), combined type F90.2 ; Anxiety state F41.1 and Depressive disorder, not elsewhere classified F32.9 [facility] [id number], [place] [address]- 8594 June, [facility] [place] [id number] [address] June, Constipation K59.00 [facility] [address] [facility] [id number] [place] [address]- 4110 May, Constipation K59.00 [facility] [address] [facility] [id number] [place] [address] -2622 May, Irritable bowel syndrome with diarrhea K58.0 [facility] [id number] [place] [address], [place] [address]- 7555 15 May, 2015 [facility] [address] [facility] [id number] [place] [address], [place] [address]- 9593 15 May, 2015 [facility] [id number] [place] [address], [place] [address]- 6872 14 May, 2014 [facility] [id number] [place] [address], [place] [address]- 0280 May, [facility] [id number] [place] [address], [place] [address]- 4779 Jan, [facility] [address] [place] [address], [place] [address]- 5349 Jan, [facility] [id number] [place] [address], [place] [address]- 6623 Jan, [facility] [address] [place] [address]- 6443 Jan, [facility] [address] [place] [address], [place] [address]- 6492 Jan, [facility] [id number], [place] [address]- 7169 Jan, [facility] [id number] [place] [address], [place] 3424 Nov, [facility] [address] [place] [address]- 4431 Nov, [facility] [address] [place] [address] 101983- 8517 Oct, [facility] [place] [facility] [address] [id number] [place] [address]- 8174 Oct, [facility] [place] [facility] [address] [id number] [place] [address]- 7220 Sep, [facility] [place] [facility] [address] [id number] [place] [address]- 4737 Sep, [facility] [place] [facility] [address] [id number] [place] [address]- 2965 Aug, [facility] [place] [facility] [address] [id number] [place] [address]- 9389 Aug, [facility] [place] [facility] [address] [id number] [place] [address]- 8171 Aug, [facility] [place] [facility] [address] [id number] [place] [address]- 0884 Aug, [facility] [place] [facility] [address] [id number] [place] [address]- 9755 Aug, [facility] [place] [facility] [address] [id number] [place] [address]- 9026 Aug, [facility] [place] [facility] [address] [id number] [place] [address]- 7584 Aug, [facility] [place] [facility] [address] [id number] [place] [address]- 9813 Aug, [facility] [place] [facility] [address] [id number], [place] [address]- 8237 Jul, [facility] [place] [facility] [address] [id number] [place] [address]- 0792 Jul, [facility] [place] [facility] [address] [id number] [place] [address]- 4788 Jul, [facility] [place] [facility] [address] [id number] [place] [address]- 9919 Jul, [facility] [place] [facility] [address] [id number], [place] [address]- 5912 05 Jul, 2013 [facility] [place] [facility] [address] [id number] [place] [address]- 6909 Jul, [facility] [place] [facility] [address] [id number] [place] [address]- 4518 Jul, [facility] [place] [facility] [address] [id number] [place] [address]- 1185 Jul, [facility] [place] [facility] [address] [id number] [place] [address]- 7910 Jul, [facility] [place] [facility] [address] [id number] [place] [address]- 0492 June, [facility] [place] [facility] [address] [id number] [place] [address]- 5886 June, [facility] [place] [facility] [address] [id number] [place] [address]- 1787 May, [facility] [place] [facility] [address] [id number] [place] [address]- 4085 May, [facility] [place] [facility] [address] [id number] [place] [address]- 9595 May, [facility] [place] [facility] [address] [id number] [place] [address]- 8897 May, [facility] [place] [facility] [address] [id number] [place] [address]- 4308 May, [facility] [place] [facility] [address] [id number] [place] [address]- 8962 May, [facility] [place] [facility] [address] [id number] [place] [address]- 1176 May, [facility] [place] [facility] [address] [id number] [place] [address]- 9361 May, [facility] [place] [facility] [address] [id number] [place] [address]- 8728 May, [facility] [place] [facility] [address] [id number] [place] [address]- 8976 May, [facility] [place] [facility] [address] [id number] [place] [address]- 7646 May, [facility] [place] [facility] [address] [id number] [place] [address]- 3204 May, [facility] [place] [facility] [address] [id number] [place] [address]- 2184 Apr, [facility] [place] [facility] [address] [id number] [place] [address]- 2366 Apr, [facility] [place] [facility] [address] [id number] [place] [address]- 0290 Apr, [facility] [place] [facility] [address] [facility] [id number] [place] [address]- 3498 Apr, [facility] [place] [facility] [address] [id number] [place] [address]- 8903 Mar, [facility] [place] [facility] [address] [id number] [place] [address]- 8186 Mar, [facility] [place] [facility] [address] [facility] [id number] [place] [address]- 6741 Mar, [facility] [place] [facility] [address] [facility] [id number] [place] [address] Mar, [facility] [place] [facility] [address] [id number] [place] [address] Mar, [facility] [place] [facility] [address] [id number] [place] [address] Mar, [facility] [place] [facility] [address] [id number] [place] [address] Mar, [facility] [place] [facility] [address] [facility] [id number] [place] [address] Mar, [facility] [place] [facility] [address] [facility] [id number], [place] [address] Mar, [facility] [place] [facility] [address] [id number] [place] [address] 19 Mar, 2013 [facility] [place] [facility] [address] [id number] [place] [address] 14 Mar, 2013 [facility] [place] [facility] [address] [facility] [id number] [place] [address] 14 Mar, 2013 [facility] [place] [facility] [address] [id number] [place] [address] Mar, [facility] [place] [facility] [address] [id number] [place] [address] Mar, [facility] [place] [facility] [address] [facility] [id number] [place] [address] Mar, [facility] [place] [facility] [address] [facility] [id number] [place] [address] Mar, [facility] [place] [facility] [address] [id number] [place] [address] Mar, [facility] [place] [facility] [address] [facility] [id number] [place] [address] Mar, [facility] [place] [facility] [address] [facility] [id number] [place] [address] Mar, [facility] [place] [facility] [address] [facility] [id number] [place] [address] Mar, [facility] [place] [facility] [address] [id number] [place] [address] Feb, [facility] [place] [facility] [address] [id number] [place] [address] Feb, [facility] [place] [facility] [address] [facility] [id number] [place] [address] Feb, [facility] [place] [facility] [address] [facility] [id number] [place] [address] Feb, [facility] [place] [facility] [address] [id number] [place] [address] Feb, [facility] [place] [facility] [address] [id number] [place] [address] Feb, [facility] [place] [facility] [address] [address] [id number] [place] [address] Feb, [facility] [place] [facility] [address] [id number] [place] [address] Feb, [facility] [place] [facility] [address] [id number] [place] [address] Feb, [facility] [place] [facility] [address] [id number] [place] [address] Feb, [facility] [place] [facility] [address] [id number] [place] [address] Feb, [facility] [place] [facility] [address] [id number] [place] [address] Feb, [facility] [place] [facility] [address] [id number] [place] [address] Feb, [facility] [place] [facility] [address] [id number] [place] [address] Feb, [facility] [place] [facility] [address] [id number], [place] [address] Feb, [facility] [place] [facility] [address] [id number], [place] [address] Feb, [facility] [place] [facility] [address] [id number] [place] [address] Feb, [facility] [place] [facility] [address] [id number], [place] [address] Feb, [facility] [place] [facility] [address] [id number], [place] [address] Feb, [facility] [place] [facility] [address] [id number] [place] [address] 07 Feb, 2013 [facility] [address] [id number] [place] [address] 07 Feb, 2013 [facility] [place] [facility] [address] [id number] [id number] [address] Feb, [facility] [address] [id number] [place] [address] Feb, [facility] [place] [facility] [address] [id number] [place] [address] 24 Jan, 2013 [facility] [address] [id number] [place] [address] 24 Jan, 2013 [facility] [address] [id number] [place] [address] Jan, [facility] [address] [id number] [place] [address] 18 Jan, 2013 [facility] [place] [facility] [address] [id number] [place] [address] 18 Jan, 2013 [facility] [place] [facility] [address] [id number] [place] [address] 18 Jan, 2013 [facility] [address] [facility] [id number] [place] [address] 18 Jan, 2013 [facility] [place] [facility] [address] [id number] [place] [address] 17 Jan, 2013 [facility] [place] [facility] [address] [id number] [place] [address]- [address] 17 Jan, 2013 [facility] [place] [facility] [address] [id number] [place] [address] 2013 [facility] [place] [facility] [address] [id number] [place] [address] 2013 [facility] [place] [facility] [address] [id number] [place] [address] Jan, [facility] [place] [facility] [address] [id number] [place] [address] Jan, [facility] [place] [facility] [address] [id number] [id number] [address] Dec, [facility] [place] [facility] [address] [id number] [place] [address] Dec, [facility] [place] [facility] [address] [id number] [place] [address] Dec, [facility] [place] [facility] [address] [id number] [place] [address] Dec, [facility] [place] [facility] [address] [id number] [place] [address] Dec, [facility] [place] [facility] [address] [id number] [place] [address] Dec, [facility] [place] [facility] [address] [id number] [place] [address] Nov, [facility] [place] [facility] [address] [id number] [place] [address] Nov, [facility] [place] [facility] [address] [id number] [place] [address] 164[address] Nov, [facility] [place] [facility] [address] [id number] [place] [address] Nov, [facility] [place] [facility] [address] [id number], [place] [address] Nov, [facility] [place] [facility] [address] [id number] [place] [address] Nov, [facility] [place] [facility] [address] [id number] [place] [address] Oct, [facility] [place] [facility] [address] [id number] [place] [address] 27 Oct, 2012 [facility] [place] [facility] [address] [id number] [place] [address] Oct, [facility] [address] [facility] [id number] [place] [address] Oct, [facility] [address] [facility] [id number], [place] [address] Oct, [facility] [address] [facility] [id number], [place] [address] Oct, [facility] [address] [facility] [id number], [place] [address] Oct, IMMUNIZATIONS No Known Immunizations SOCIAL HISTORY Never Assessed REASON FOR VISIT concerta 10/17/2017 PLAN OF CARE VITAL SIGNS MEDICATIONS Medication Instructions Dosage Frequency Start Date End Date Duration Status Concerta 27 MG Orally Once a day in the morning 1 tablet Sep, 28 days Active RESULTS No Results PROCEDURES [...]
--- OUTSIDE RECORDS SUMMARY | 2017-12-03 14:20 | XMS REPORT ---
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 Name Role Phone HARIKA RODRIGUEZ Unavailable PROBLEMS Type Condition ICD9-CM Code [id number] Code Onset Dates Condition Status SNOMED Code Problem ADHD (attention deficit hyperactivity disorder), combined type F90.2 Active 29349697 Problem Rhinitis, unspecified type J31.0 Active 78496114 Problem Depressive disorder, not elsewhere classified F32.9 Active 52206603 Problem Anxiety state F41.1 Active 968137231 Problem Unspecified mood [affective] disorder F39 Active 48564171 Problem Irritable bowel syndrome with diarrhea K58.0 Active 026689898 Problem Major depressive disorder, single episode, mild F32.0 Active 80949585 Problem Slow transit constipation K59.01 Active 79826857 Problem Plantar wart of right foot B07.0 Active [id number] Problem Anxiety disorder, unspecified type F41.9 Active 521659226 ALLERGIES No Information ENCOUNTERS Encounter Location Date Diagnosis [facility] [id number] [place] [address] 60290- 5393 Nov, [facility] [id number] [place] [address] 15025- 6374 Oct, ADHD (attention deficit hyperactivity disorder), combined type F90.2 ; Anxiety disorder, unspecified type F41.9 and Unspecified mood [ affective] disorder F39 [facility] [id number] [place] [address] 15755- 5197 Sep, ADHD (attention deficit hyperactivity disorder), combined type F90.2 [facility] [id number] [place] [address] 32329- 7191 Sep, [facility] [id number] [place] [address] 62587- 8969 Aug, ADHD (attention deficit hyperactivity disorder), combined type F90.2 ; Major depressive disorder, single episode, mild F32.0 and Anxiety disorder, unspecified type F41.9 [facility] [address] [address] Aug, Sore throat J02.9 ; Other specified bacterial agents as the cause of diseases classified elsewhere B96.89 and Acute tonsillitis due to other specified organisms J03.80 [facility] [address] [address] 4[address] Aug, ADHD (attention deficit hyperactivity disorder), combined type F90.2 [facility] [address] [address] 9334 Jul, ADHD (attention deficit hyperactivity disorder), combined type F90.2 [facility] [address] [address] 387[address] June, ADHD (attention deficit hyperactivity disorder), combined type F90.2 ; Major depressive disorder, single episode, mild F32.0 and Anxiety disorder, unspecified type F41.9 [facility] [address], [place] [address] 2[address] June, [facility] [address] [address] 7175 June, ADHD (attention deficit hyperactivity disorder), combined type F90.2 [facility] [id number] [address] 7814 May, [facility] [id number] [address] 8075 May, ADHD (attention deficit hyperactivity disorder), combined type F90.2 ; Major depressive disorder, single episode, mild F32.0 and Anxiety disorder, unspecified type F41.9 [facility] [id number] [address] 4514 May, Anxiety disorder, unspecified type F41.9 [facility] [id number] [place] [address] 95389- 6540 Apr, [facility] [id number] [place] [address] 76886- 2881 Apr, Anxiety disorder, unspecified type F41.9 [facility] [id number] [place] [address] 26332- 8595 Apr, Anxiety disorder, unspecified type F41.9 ; Major depressive disorder, single episode, mild F32.0 and ADHD (attention deficit hyperactivity disorder), combined type F90.2 [facility] [id number] [place] [address] 93646- 5868 Apr, [facility] [id number] [place] [address] 53280- 2237 Apr, ADHD (attention deficit hyperactivity disorder), combined type F90.2 ; Anxiety state F41.1 ; Depressive disorder, not elsewhere classified F32.9 ; Major depressive disorder, single episode, mild F32.0 and Anxiety disorder, unspecified type F41.9 [facility] [id number] [place] [address] 60498- 9230 Mar, ADHD (attention deficit hyperactivity disorder), combined type F90.2 [facility] [id number] [place] [address] 50360- 0751 Mar, Nausea R11.0 [facility] [id number] [place] [address] 04626- 1964 Mar, Screening for STD sexually transmitted disease Z11.3 ; Vaginal candidiasis B37.3 and Irritable bowel syndrome with diarrhea K58.0 [facility] [id number] [place] [address] 93769- 1131 Mar, [facility] [id number] [place] [address] 35286- 6431 Feb, ADHD (attention deficit hyperactivity disorder), combined type F90.2 [facility] [address], [place] [address]- 0546 Feb, Depressive disorder, not elsewhere classified F32.9 ; Anxiety state F41.1 and ADHD (attention deficit hyperactivity disorder), combined type F90.2 [facility] [address], [place] [address]- 1166 Feb, Depressive disorder, not elsewhere classified F32.9 ; Anxiety state F41.1 and ADHD (attention deficit hyperactivity disorder), combined type F90.2 [facility] [id number] [place] [address] 78977- 3940 Feb, ADHD (attention deficit hyperactivity disorder), combined type F90.2 [facility] [id number] [place] [address] 60123 -8828 Jan, Other viral agents as the cause of diseases classified elsewhere B97.89 and Acute upper respiratory infection, unspecified J06.9 [facility] [id number] [place] [address] 74426- 0259 Jan, ADHD (attention deficit hyperactivity disorder), combined type F90.2 ; Major depressive disorder, single episode, mild F32.0 and Anxiety disorder, unspecified type F41.9 [facility] [address], [place] [address]- 3555 Jan, [facility] [id number] [place] [address] 55221- 8443 Jan, ADHD (attention deficit hyperactivity disorder), combined type F90.2 ; Major depressive disorder, single episode, mild F32.0 and Anxiety disorder, unspecified type F41.9 [facility] [id number] [place] [address] 76697- 4114 Dec, Irritable bowel syndrome with diarrhea K58.0 and Lower abdominal pain R10.30 [facility] [address], [place] [address]- 1044 09 Dec, 2016 Hospital discharge follow-up Z09 ; Mesenteric adenitis I88.0 ; IBD (inflammatory bowel disease) K52.9 and Nausea R11.0 [facility] [id number] [place] [address] 46039- 9652 Nov, ADHD (attention deficit hyperactivity disorder), combined type F90.2 ; Major depressive disorder, single episode, mild F32.0 and Anxiety disorder, unspecified type F41.9 [facility] [address] 45853- 6960 Nov, Anxiety state F41.1 ; ADHD (attention deficit hyperactivity disorder), combined type F90.2 ; Major depressive disorder, single episode, mild F32.0 and Anxiety disorder, unspecified type F41.9 [facility] [id number] [place] [address] 94139- 7293 Oct, Anxiety state F41.1 ; ADHD (attention deficit hyperactivity disorder), combined type F90.2 ; Major depressive disorder, single episode, mild F32.0 and Anxiety disorder, unspecified type F41.9 [facility] [id number] [place] [address] 26210- 4531 Oct, ADHD (attention deficit hyperactivity disorder), combined type F90.2 ; Major depressive disorder, single episode, mild F32.0 and Anxiety disorder, unspecified type F41.9 [facility] [id number] [place] [address] 98205- 6810 Oct, Major depressive disorder, single episode, mild F32.0 ; Anxiety state F41.1 ; ADHD (attention deficit hyperactivity disorder), combined type F90.2 and Depressive disorder, not elsewhere classified F32.9 [facility] [id number] [place] [address] 85283 -5436 Oct, [facility] [id number] [place] [address] 76845 -3776 Oct, Cellulitis L03.90 and Plantar wart of right foot B07.0 [facility] [id number] [place] [address] 34285- 3459 Aug, ADHD (attention deficit hyperactivity disorder), combined type F90.2 ; Major depressive disorder, single episode, mild F32.0 and Anxiety disorder, unspecified type F41.9 [facility] [id number] [place] [address] 63802- 2961 Aug, [facility] [id number] [place] [address] 71218- 4548 Jul, ADHD (attention deficit hyperactivity disorder), combined type F90.2 [facility] [id number] [place] [address] 93665- 8752 Jul, Mesenteric adenitis I88.0 [place] [facility] [address] 19180- 9687 June, [facility] [id number] [place] [address] 81335 -9001 June, Lower abdominal pain R10.30 [place] [facility] [id number] [place] [address] 02721- 0724 June, [place] [facility] [id number] [place] [address] 04186- 5628 June, ADHD (attention deficit hyperactivity disorder), combined type F90.2 and Major depressive disorder, single episode, mild F32.0 [facility] [facility] [id number] [place] [address] 27650- 5035 May, [place] [facility] [id number] [place] [address] 52546- 5494 May, ADHD (attention deficit hyperactivity disorder), combined type F90.2 and Major depressive disorder, single episode, mild F32.0 [facility] [id number] [place] [address] 77532 -7127 Apr, Abdominal pain R10.9 and Gastroenteritis and colitis, viral A08.4 [facility] [facility] [id number] [place] [address] 66457- 5631 Apr, [facility] [id number] [place] [address] 51542 -4354 Mar, Acute urticaria L50.8 [facility] [address] 88230- 5642 Mar, [facility] [address] 22785- 9766 Feb, [facility] [address] 25420 -2165 Feb, Gastroenteritis K52.9 [facility] [address] 73259- 1549 Feb, Irritant contact dermatitis due to cosmetics L24.3 [place] [address] 15418- 1386 Jan, [place] [address] 45949- 3044 Jan, [facility] [address] 89409- 7859 Jan, ADHD (attention deficit hyperactivity disorder), combined type F90.2 and Major depressive disorder, single episode, mild F32.0 [facility] [id number] [place] [address] 70240 -2011 Dec, Flexural eczema L20.82 [place] [address] 72679- 4039 Dec, Encounter for test Z32.00 [facility] [id number] [place] [address] 92804- 8754 Dec, [place] [address] 33187- 6251 Dec, [place] [id number] [place] [address] 92794- 7645 Dec, [facility] [address] 73953 -1861 Nov, Sore throat J02.9 and Pharyngitis, unspecified etiology J02.9 [facility] [id number] [place] [address] 95893- 9390 Nov, [facility] [id number] [place] [address] 14322- 6110 Nov, [facility] [address] 20295- 6434 Nov, Generalized abdominal pain R10.84 and Slow transit constipation K59.01 [facility] [id number] [place] [address] [id number] Nov, Pharyngitis, unspecified etiology J02.9 and Rhinitis, unspecified type J31.0 [facility] [id number] [place] [address] 96122- 9422 Oct, Depressive disorder, not elsewhere classified F32.9 and ADHD (attention deficit hyperactivity disorder), combined type F90.2 [facility] [id number] [place] [address] 01536- 4813 Oct, [facility] [id number] [place] [address] 17628- 0573 Oct, [facility] [id number] [place] [address] 96376 -1898 Oct, Strep throat J02.0 [facility] [id number] [place] [address] 86313- 2436 16 Oct, 2015 [facility] [id number] [place] [address] 76880- 1255 09 Oct, 2015 Well woman exam with routine gynecological exam Z01.419 and Screening for STD sexually transmitted disease Z11.3 [facility] [id number] [place] [address] 33816- 1706 Sep, ADHD (attention deficit hyperactivity disorder), combined type F90.2 ; Anxiety state F41.1 and Depressive disorder, not elsewhere classified F32.9 [facility] [id number], [place] [address]- 0165 Sep, ADHD (attention deficit hyperactivity disorder), combined type F90.2 and Depressive disorder, not elsewhere classified F32.9 [facility] [address] [facility] [id number] [address]- 8418 Aug, [facility] [id number] [place] [address] 71836- 9082 Aug, ADHD (attention deficit hyperactivity disorder), combined type F90.2 and Depressive disorder, not elsewhere classified F32.9 [facility] [id number] [place] [address] 92810- 4001 Aug, ADHD (attention deficit hyperactivity disorder), combined type F90.2 ; Anxiety state F41.1 and Depressive disorder, not elsewhere classified F32.9 [facility] [id number], [place] [address]- 8022 Aug, [facility] [id number], [place] [address]- 9022 Aug, [facility] [id number], [place] [address]- 9738 Jul, ADHD (attention deficit hyperactivity disorder), combined type F90.2 ; Depressive disorder, not elsewhere classified F32.9 and Anxiety state F41.1 [facility] [id number], [place] [address]- 1817 Jul, [facility] [id number], [place] [address]- 5765 Jul, ADHD (attention deficit hyperactivity disorder), combined type F90.2 ; Anxiety state F41.1 and Depressive disorder, not elsewhere classified F32.9 [facility] [id number], [place] [address]- 6820 June, [facility] [id number] [address] June, Constipation K59.00 [facility] [address] [facility] [id number] [place] [address]- 5621 May, Constipation K59.00 [facility] [address] [facility] [id number] [place] [address] -8177 May, Irritable bowel syndrome with diarrhea K58.0 [facility] [id number] [place] [address], [place] [address]- 9499 15 May, 2015 [facility] [address] [facility] [id number] [place] [address], [place] [address]- 9371 15 May, 2015 [facility] [id number] [place] [address], [place] [address]- 5048 14 May, 2014 [facility] [id number] [place] [address], [place] [address]- 9679 May, [facility] [id number] [place] [address], [place] [address]- 9954 Jan, [facility] [id number] [place] [address], [place] [address]- 7174 Jan, [facility] [id number] [place] [address], [place] [address]- 4711 Jan, [facility] [address] [place] [address]- 8360 Jan, [facility] [id number] [place] [address], [place] [address]- 3631 Jan, [facility] [id number], [place] [address]- 4527 Jan, [facility] [id number] [place] [address], [place]- 4880 Nov, [facility] [address] [place] [address]- 0785 Nov, [facility] [id number] [place] [address] 103983- 1686 Oct, [facility] [place] [facility] [address] [id number] [place] [address]- 2146 Oct, [facility] [place] [facility] [address] [id number] [place] [address]- 4960 Sep, [facility] [place] [facility] [address] [id number] [place] [address]- 6418 Sep, [facility] [place] [facility] [address] [id number] [place] [address]- 9308 Aug, [facility] [place] [facility] [address] [id number] [place] [address]- 8691 Aug, [facility] [place] [facility] [address] [id number] [place] [address]- 6668 Aug, [facility] [place] [facility] [address] [id number] [place] [address]- 9016 Aug, [facility] [place] [facility] [address] [id number] [place] [address]- 5026 Aug, [facility] [place] [facility] [address] [id number] [place] [address]- 7040 Aug, [facility] [place] [facility] [address] [id number] [place] [address]- 8948 Aug, [facility] [place] [facility] [address] [id number] [place] [address]- 9767 Aug, [facility] [place] [facility] [address] [id number], [place] [address]- 6157 Jul, [facility] [place] [facility] [address] [id number] [place] [address]- 4720 Jul, [facility] [place] [facility] [address] [id number] [place] [address]- 1682 Jul, [facility] [place] [facility] [address] [id number] [place] [address]- 1418 Jul, [facility] [place] [facility] [address] [id number], [place] [address]- 0153 05 Jul, 2013 [facility] [place] [facility] [address] [id number] [place] [address]- 5258 Jul, [facility] [place] [facility] [address] [id number] [place] [address]- 6163 Jul, [facility] [place] [facility] [address] [id number] [place] [address]- 2919 Jul, [facility] [place] [facility] [address] [id number] [place] [address]- 8170 Jul, [facility] [place] [facility] [address] [id number] [place] [address]- 2162 June, [facility] [place] [facility] [address] [id number] [place] [address]- 5603 June, [facility] [place] [facility] [address] [id number] [place] [address]- 2519 May, [facility] [place] [facility] [address] [id number] [place] [address]- 0580 May, [facility] [place] [facility] [address] [id number] [place] [address]- 7759 May, [facility] [place] [facility] [address] [id number] [place] [address]- 5227 May, [facility] [place] [facility] [address] [id number] [place] [address]- 5418 May, [facility] [place] [facility] [address] [id number] [place] [address]- 0896 May, [facility] [place] [facility] [address] [id number] [place] [address]- 7874 May, [facility] [place] [facility] [address] [id number] [place] [address]- 6658 May, [facility] [place] [facility] [address] [id number] [place] [address]- 9725 May, [facility] [place] [facility] [address] [id number] [place] [address]- 3822 May, [facility] [place] [facility] [address] [id number] [place] [address]- 8728 May, [facility] [place] [facility] [address] [id number] [place] [address]- 1001 May, [facility] [place] [facility] [address] [id number] [place] [address]- 0663 Apr, [facility] [place] [facility] [address] [id number] [place] [address]- 5751 Apr, [facility] [place] [facility] [address] [id number] [place] [address]- 7841 Apr, [facility] [place] [facility] [address] [facility] [id number] [place] [address]- 8398 Apr, [facility] [place] [facility] [address] [id number] [place] [address]- 8369 Mar, [facility] [place] [facility] [address] [id number] [place] [address]- 6903 Mar, [facility] [place] [facility] [address] [facility] [id number] [place] [address]- 0224 Mar, [facility] [place] [facility] [address] [facility] [id number] [place] [address]- 4181 Mar, [facility] [place] [facility] [address] [id number] [place] [address] Mar, [facility] [place] [facility] [address] [id number] [place] [address] Mar, [facility] [place] [facility] [address] [id number] [place] [address] Mar, [facility] [place] [facility] [address] [facility] [id number] [place] [address]- [address] Mar, [facility] [place] [facility] [address] [facility] [id number], [place] [address] Mar, [facility] [place] [facility] [address] [id number] [place] [address] 19 Mar, 2013 [facility] [place] [facility] [address] [id number] [place] [address]- [address] 14 Mar, 2013 [facility] [place] [facility] [address] [facility] [id number] [place] [address]- [address] 14 Mar, 2013 [facility] [place] [facility] [address] [id number] [place] [address]- [address] Mar, [facility] [place] [facility] [address] [id number] [place] [address]- [address] Mar, [facility] [place] [facility] [address] [facility] [id number] [place] [address]- [address] Mar, [facility] [place] [facility] [address] [facility] [id number] [place] [address]- [address] Mar, [facility] [place] [facility] [address] [id number] [place] [address] Mar, [facility] [place] [facility] [address] [facility] [id number] [place] [address]- [address] Mar, [facility] [place] [facility] [address] [facility] [id number] [place] [address]- [address] Mar, [facility] [place] [facility] [address] [facility] [id number] [place] [address]- [address] Mar, [facility] [place] [facility] [address] [id number] [place] [address] Feb, [facility] [place] [facility] [address] [id number] [place] [address]- [address] Feb, [facility] [place] [facility] [address] [facility] [facility] [id number] [place] [address] Feb, [facility] [place] [facility] [address] [facility] [id number] [place] [address] Feb, [facility] [place] [facility] [address] [id number] [place] [address] Feb, [facility] [place] [facility] [address] [id number] [place] [address] Feb, [facility] [place] [facility] [address] [id number] [place] [address] Feb, [facility] [place] [facility] [address] [id number] [place] [address] Feb, [facility] [place] [facility] [address] [id number] [place] [address] Feb, [facility] [place] [facility] [address] [id number] [place] [address] Feb, [facility] [place] [facility] [address] [id number] [place] [address] Feb, [facility] [place] [facility] [address] [id number] [place] [address] Feb, [facility] [place] [facility] [address] [id number] [place] [address] Feb, [facility] [place] [facility] [address] [id number] [place] [address] Feb, [facility] [place] [facility] [address] [id number], [place] [address] Feb, [facility] [place] [facility] [address] [id number], [place] [address] Feb, [facility] [place] [facility] [address] [id number] [place] [address] Feb, [facility] [place] [facility] [address] [id number], [place] [address] Feb, [facility] [place] [facility] [address] [id number], [place] [address] Feb, [facility] [place] [facility] [address] [id number] [place] [address] 07 Feb, 2013 [facility] [place] [facility] [address] [id number] [place] [address]- [address] 07 Feb, 2013 [facility] [place] [facility] [address] [id number] [place] [address] Feb, [facility] [place] [facility] [address] [id number] [place] [address] Feb, [facility] [place] [facility] [address] [id number] [place] [address]- [address] 24 Jan, 2013 [facility] [place] [facility] [address] [id number] [place] [address]- [address] 24 Jan, 2013 [facility] [place] [facility] [address] [id number] [place] [address] Jan, [facility] [place] [facility] [address] [id number] [place] [address] 18 Jan, 2013 [facility] [place] [facility] [address] [id number] [place] [address]- [address] 18 Jan, 2013 [facility] [place] [facility] [address] [id number] [place] [address] 18 Jan, 2013 [facility] [place] [facility] [address] [facility] [id number] [place] [address] 18 Jan, 2013 [facility] [place] [facility] [address] [id number] [place] [address]- [address] 17 Jan, 2013 [facility] [place] [facility] [address] [id number] [place] [address]- 7938 17 Jan, 2013 [facility] [place] [facility] [address] [id number] [place] [address]- [address] 2013 [facility] [place] [facility] [address] [id number] [place] [address] 2013 [facility] [place] [facility] [address] [id number] [place] [address]- [address] Jan, [facility] [place] [facility] [address] [id number] [place] [address]- 69[address] Jan, [facility] [place] [facility] [address] [id number] [place] [address] Dec, [facility] [place] [facility] [address] [id number] [place] [address]- [address] Dec, [facility] [place] [facility] [address] [id number] [place] [address]67 Dec, [facility] [place] [facility] [address] [id number] [place] [address] Dec, [facility] [place] [facility] [address] [id number] [place] [address] Dec, [facility] [place] [facility] [address] [id number] [place] [address] Dec, [facility] [place] [facility] [address] [id number] [place] [address]- 289[address] Nov, [facility] [place] [facility] [address] [id number] [place] [address] Nov, [facility] [place] [facility] [address] [id number] [place] [address]- [address] Nov, [facility] [place] [facility] [address] [id number] [place] [address] 34[address] Nov, [facility] [place] [facility] [address] [id number], [place] [address] Nov, [facility] [place] [facility] [address] [id number] [place] [address]- [address] Nov, [facility] [place] [facility] [address] [id number] [place] [address] Oct, [facility] [place] [facility] [address] [id number] [place] [address]- [address] 27 Oct, 2012 [facility] [place] [facility] [address] [id number] [place] [address] Oct, [facility] [address] [facility] [id number] [place] [address] Oct, [facility] [address] [facility] [id number], [place] [address] Oct, [facility] [address] [facility] [id number], [place] [address] Oct, [facility] [address] [facility] [id number], [place] [address] Oct, IMMUNIZATIONS No Known Immunizations SOCIAL HISTORY Never Assessed REASON FOR VISIT Real PLAN OF CARE VITAL SIGNS MEDICATIONS Unknown [...]
--- OUTSIDE RECORDS SUMMARY | 2017-12-03 14:20 | XMS REPORT ---
Author Author HARIKA RODRIGUEZ [facility] Address [address] [place] [address] Care Team Providers Care Computer Numerical Control Grinder Name Role Phone HARIKA RODRIGUEZ Unavailable PROBLEMS Type Condition ICD9-CM Code XSW65-XY Code Onset Dates Condition Status SNOMED Code Problem ADHD (attention deficit hyperactivity disorder), combined type F90.2 Active 13616584 Problem Rhinitis, unspecified type J31.0 Active 75003910 Problem Depressive disorder, not elsewhere classified F32.9 Active 51312084 Problem Anxiety state F41.1 Active 973907387 Problem Unspecified mood [affective] disorder F39 Active 90052363 Problem Irritable bowel syndrome with diarrhea K58.0 Active 230843381 Problem Major depressive disorder, single episode, mild F32.0 Active 28902750 Problem Slow transit constipation K59.01 Active 85299717 Problem Plantar wart of right foot B07.0 Active [id number] Problem Anxiety disorder, unspecified type F41.9 Active 478217256 ALLERGIES No Known Allergies ENCOUNTERS Encounter Location Date Diagnosis [facility] [id number] [place] [address] 42917- 7042 Nov, [facility] [id number] [place] [address] 79332- 6167 Oct, ADHD (attention deficit hyperactivity disorder), combined type F90.2 ; Anxiety disorder, unspecified type F41.9 and Unspecified mood [ affective] disorder F39 [facility] [id number] [place] [address] 95307- 3406 Sep, ADHD (attention deficit hyperactivity disorder), combined type F90.2 [facility] [id number] [place] [address] 89545- 6642 Sep, [facility] [id number] [place] [address] [place] [address] Aug, ADHD (attention deficit hyperactivity disorder), combined type F90.2 ; Major depressive disorder, single episode, mild F32.0 and Anxiety disorder, unspecified type F41.9 [facility] [address] [address] Aug, Sore throat J02.9 ; Other specified bacterial agents as the cause of diseases classified elsewhere B96.89 and Acute tonsillitis due to other specified organisms J03.80 [facility] [address] [address] Aug, ADHD (attention deficit hyperactivity disorder), combined type F90.2 [facility] [address] [address] 0782 Jul, ADHD (attention deficit hyperactivity disorder), combined type F90.2 [facility] [address] [address] June, ADHD (attention deficit hyperactivity disorder), combined type F90.2 ; Major depressive disorder, single episode, mild F32.0 and Anxiety disorder, unspecified type F41.9 [facility] [address] [address] 4[address] June, [facility] [address] [address] 75[address] June, ADHD (attention deficit hyperactivity disorder), combined type F90.2 [facility] [id number] [address] 8[address] May, [facility] [address], [place] [address] 8[address] May, ADHD (attention deficit hyperactivity disorder), combined type F90.2 ; Major depressive disorder, single episode, mild F32.0 and Anxiety disorder, unspecified type F41.9 [facility] [address] [address] 29[address] May, Anxiety disorder, unspecified type F41.9 [facility] [address], [place] [address] 8333 Apr, [facility] [id number] [place] [address] 37047- 0224 Apr, Anxiety disorder, unspecified type F41.9 [facility] [id number] [place] [address] 49604- 2877 Apr, Anxiety disorder, unspecified type F41.9 ; Major depressive disorder, single episode, mild F32.0 and ADHD (attention deficit hyperactivity disorder), combined type F90.2 [facility] [id number] [place] [address] 35826- 9449 Apr, [facility] [id number] [place] [address] 78187- 7744 Apr, ADHD (attention deficit hyperactivity disorder), combined type F90.2 ; Anxiety state F41.1 ; Depressive disorder, not elsewhere classified F32.9 ; Major depressive disorder, single episode, mild F32.0 and Anxiety disorder, unspecified type F41.9 [facility] [id number] [place] [address] 95615- 7936 Mar, ADHD (attention deficit hyperactivity disorder), combined type F90.2 [facility] [id number] [place] [address] 08809- 1908 Mar, Nausea R11.0 [facility] [id number] [place] [address] 09710- 6474 13 Mar, 2017 Screening for STD sexually transmitted disease Z11.3 ; Vaginal candidiasis B37.3 and Irritable bowel syndrome with diarrhea K58.0 [facility] [id number] [place] [address] 68509- 8118 04 Mar, 2017 [facility] [id number] [place] [address] 93692- 2062 Feb, ADHD (attention deficit hyperactivity disorder), combined type F90.2 [facility] [address], [place] [address] 7599 Feb, Depressive disorder, not elsewhere classified F32.9 ; Anxiety state F41.1 and ADHD (attention deficit hyperactivity disorder), combined type F90.2 [facility] [address], [place] [address] 44[address] Feb, Depressive disorder, not elsewhere classified F32.9 ; Anxiety state F41.1 and ADHD (attention deficit hyperactivity disorder), combined type F90.2 [facility] [id number] [place] [address] 15072- 4624 Feb, ADHD (attention deficit hyperactivity disorder), combined type F90.2 [facility] [id number] [place] [address] 90437 -1650 Jan, Other viral agents as the cause of diseases classified elsewhere B97.89 and Acute upper respiratory infection, unspecified J06.9 [facility] [id number] [place] [address] 71252- 2029 Jan, ADHD (attention deficit hyperactivity disorder), combined type F90.2 ; Major depressive disorder, single episode, mild F32.0 and Anxiety disorder, unspecified type F41.9 [facility] [id number] [place] [address] 45675- 3397 Jan, [facility] [id number] [place] [address] 45679- 5833 Jan, ADHD (attention deficit hyperactivity disorder), combined type F90.2 ; Major depressive disorder, single episode, mild F32.0 and Anxiety disorder, unspecified type F41.9 [facility] [id number] [place] [address] 28440- 7206 Dec, Irritable bowel syndrome with diarrhea K58.0 and Lower abdominal pain R10.30 [facility] [id number] [place] [address] 95831- 7339 09 Dec, 2016 Hospital discharge follow-up Z09 ; Mesenteric adenitis I88.0 ; IBD (inflammatory bowel disease) K52.9 and Nausea R11.0 [facility] [id number] [place] [address] 04064- 0008 Nov, ADHD (attention deficit hyperactivity disorder), combined type F90.2 ; Major depressive disorder, single episode, mild F32.0 and Anxiety disorder, unspecified type F41.9 [facility] [address] 69373- 3163 Nov, Anxiety state F41.1 ; ADHD (attention deficit hyperactivity disorder), combined type F90.2 ; Major depressive disorder, single episode, mild F32.0 and Anxiety disorder, unspecified type F41.9 [facility] [id number] [place] [address] 05190- 8040 Oct, Anxiety state F41.1 ; ADHD (attention deficit hyperactivity disorder), combined type F90.2 ; Major depressive disorder, single episode, mild F32.0 and Anxiety disorder, unspecified type F41.9 [facility] [id number] [place] [address] 92152- 9905 Oct, ADHD (attention deficit hyperactivity disorder), combined type F90.2 ; Major depressive disorder, single episode, mild F32.0 and Anxiety disorder, unspecified type F41.9 [facility] [id number] [place] [address] 62847- 9928 Oct, Major depressive disorder, single episode, mild F32.0 ; Anxiety state F41.1 ; ADHD (attention deficit hyperactivity disorder), combined type F90.2 and Depressive disorder, not elsewhere classified F32.9 [facility] [id number] [place] [address] 88499 -5148 Oct, [facility] [address] 08474 -5449 Oct, Cellulitis L03.90 and Plantar wart of right foot B07.0 [place] [address] 50833- 6336 Aug, ADHD (attention deficit hyperactivity disorder), combined type F90.2 ; Major depressive disorder, single episode, mild F32.0 and Anxiety disorder, unspecified type F41.9 [facility] [id number] [place] [address] 48016- 9227 Aug, [facility] [id number] [place] [address] 44133- 2447 Jul, ADHD (attention deficit hyperactivity disorder), combined type F90.2 [facility] [id number] [place] [address] 99942- 7071 Jul, Mesenteric adenitis I88.0 [facility] [address] 64837- 6522 June, [facility] [id number] [place] [address] 35211 -4864 June, Lower abdominal pain R10.30 [facility] [address] 98985- 0570 June, [facility] [id number] [place] [address] 02578- 2039 June, ADHD (attention deficit hyperactivity disorder), combined type F90.2 and Major depressive disorder, single episode, mild F32.0 [facility] [id number] [place] [address] 04967- 0404 May, [facility] [id number] [place] [address] 51707- 2900 May, ADHD (attention deficit hyperactivity disorder), combined type F90.2 and Major depressive disorder, single episode, mild F32.0 [facility] [id number] [place] [address] 37633 -2911 Apr, Abdominal pain R10.9 and Gastroenteritis and colitis, viral A08.4 [facility] [id number] [place] [address] 89208- 1643 Apr, [facility] [id number] [place] [address] 14638 -4331 Mar, Acute urticaria L50.8 [facility] [address] 19982- 5096 Mar, [facility] [id number] [place] [address] 64568- 0159 Feb, [facility] [address] 08568 -6115 Feb, Gastroenteritis K52.9 [facility] [address] 99719- 9864 Feb, Irritant contact dermatitis due to cosmetics L24.3 [facility] [address] 66483- 8075 Jan, [facility] [address] 10368- 7802 Jan, [facility] [id number] [place] [address] 64514- 0934 Jan, ADHD (attention deficit hyperactivity disorder), combined type F90.2 and Major depressive disorder, single episode, mild F32.0 [facility] [id number] [place] [address] 95453 -1538 Dec, Flexural eczema L20.82 [place] [facility] [address] 55674- 1779 Dec, Encounter for test Z32.00 [facility] [id number] [place] [address] 72110- 2453 Dec, [facility] [facility] [address] 05188- 9894 Dec, [facility] [id number] [place] [address] 81406- 0838 Dec, [facility] [address] 85222 -5153 Nov, Sore throat J02.9 and Pharyngitis, unspecified etiology J02.9 [facility] [id number] [place] [address] 67489- 0816 Nov, [facility] [id number] [place] [address] 38916- 5747 Nov, [facility] [address] 45683- 2446 Nov, Generalized abdominal pain R10.84 and Slow transit constipation K59.01 [facility] [id number] [place] [address] [id number] Nov, Pharyngitis, unspecified etiology J02.9 and Rhinitis, unspecified type J31.0 [facility] [id number] [place] [address] 87370- 4733 Oct, Depressive disorder, not elsewhere classified F32.9 and ADHD (attention deficit hyperactivity disorder), combined type F90.2 [facility] [id number] [place] [address] 23557- 7844 Oct, [facility] [id number] [place] [address] 54103- 7494 Oct, [facility] [id number] [place] [address] 86848 -8231 Oct, Strep throat J02.0 [facility] [id number] [place] [address] 04723- 4403 Oct, [facility] [id number] [place] [address] 20440- 1377 Oct, Well woman exam with routine gynecological exam Z01.419 and Screening for STD sexually transmitted disease Z11.3 [facility] [address] [place] [address] 10717- 0199 Sep, ADHD (attention deficit hyperactivity disorder), combined type F90.2 ; Anxiety state F41.1 and Depressive disorder, not elsewhere classified F32.9 [facility] [address] [facility] [id number] [address]- 0416 Sep, ADHD (attention deficit hyperactivity disorder), combined type F90.2 and Depressive disorder, not elsewhere classified F32.9 [facility] [address] [facility] [id number] [address]- 6691 Aug, [facility] [id number] [address] 3586 Aug, ADHD (attention deficit hyperactivity disorder), combined type F90.2 and Depressive disorder, not elsewhere classified F32.9 [facility] [id number], [place] [address]- 3135 Aug, ADHD (attention deficit hyperactivity disorder), combined type F90.2 ; Anxiety state F41.1 and Depressive disorder, not elsewhere classified F32.9 [facility] [id number], [place] [address]- 6322 Aug, [facility] [id number], [place] [address]- 7464 Aug, [facility] [id number], [place] [address]- 9679 Jul, ADHD (attention deficit hyperactivity disorder), combined type F90.2 ; Depressive disorder, not elsewhere classified F32.9 and Anxiety state F41.1 [facility] [id number], [place] [address]- 8297 Jul, [facility] [address] [facility] [id number] [address]- 6533 Jul, ADHD (attention deficit hyperactivity disorder), combined type F90.2 ; Anxiety state F41.1 and Depressive disorder, not elsewhere classified F32.9 [facility] [id number], [place] [address]- 0236 June, [facility] [id number] [id number] June, Constipation K59.00 [facility] [address] [facility] [id number] [place] [address]- 9138 May, Constipation K59.00 [facility] [address] [facility] [id number] [place] [address] -8826 May, Irritable bowel syndrome with diarrhea K58.0 [facility] [address] [place] [address], [place] [address]- 8113 15 May, 2015 [facility] [address] [facility] [id number] [place] [address]- 6660 15 May, 2015 [facility] [id number] [place] [address], [place] [address]- 6314 14 May, 2014 [facility] [id number] [place] [address], [place] [address]- 3037 May, [facility] [id number] [place] [address], [place] [address]- 0368 Jan, [facility] [address] [address]- 4998 Jan, [facility] [id number] [place] [address]- 6638 Jan, [facility] [address] [place] [address]- 2767 Jan, [facility] [address] [address]- 3524 Jan, [facility] [id number], [place] [address]- 6174 Jan, [facility] [id number] 9205 Nov, [facility] [id number] [address]- 4172 Nov, [facility] [address] 8178 Oct, [facility] [place] [facility] [address] [id number] [place] [address]- 8323 Oct, [facility] [place] [facility] [address] [id number] [place] [address]- 9767 Sep, [facility] [place] [facility] [address] [id number] [place] [address]- 2883 Sep, [facility] [place] [facility] [address] [id number] [place] [address]- 5521 Aug, [facility] [place] [facility] [address] [id number] [place] [address]- 4188 Aug, [facility] [place] [facility] [address] [id number] [place] [address]- 8779 Aug, [facility] [place] [facility] [address] [id number] [place] [address]- 5698 Aug, [facility] [place] [facility] [address] [id number] [place] [address]- 4305 Aug, [facility] [place] [facility] [address] [id number] [place] [address]- 3198 Aug, [facility] [place] [facility] [address] [id number] [place] [address]- 7970 Aug, [facility] [place] [facility] [address] [id number] [place] [address]- 8628 Aug, [facility] [place] [facility] [address] [id number] [place] [address]- 3530 Jul, [facility] [place] [facility] [address] [id number] [place] [address]- 5046 Jul, [facility] [place] [facility] [address] [id number] [place] [address]- 7887 Jul, [facility] [place] [facility] [address] [id number] [place] [address]- 5095 Jul, [facility] [place] [facility] [address] [id number] [place] [address]- 8588 05 Jul, 2013 [facility] [place] [facility] [address] [id number] [place] [address]- 7390 Jul, [facility] [place] [facility] [address] [id number] [place] [address]- 5211 Jul, [facility] [place] [facility] [address] [id number] [place] [address]- 7564 Jul, [facility] [place] [facility] [address] [id number] [place] [address]- 5571 Jul, [facility] [place] [facility] [address] [id number] [place] [address]- 3744 June, [facility] [place] [facility] [address] [id number] [place] [address]- 6402 June, [facility] [place] [facility] [address] [id number] [place] [address]- 5845 May, [facility] [place] [facility] [address] [id number] [place] [address]- 1602 May, [facility] [place] [facility] [address] [id number] [place] [address]- 0369 May, [facility] [place] [facility] [address] [id number] [place] [address]- 0003 May, [facility] [place] [facility] [address] [id number] [place] [address]- 6915 May, [facility] [place] [facility] [address] [id number] [place] [address]- 9409 May, [facility] [place] [facility] [address] [id number] [place] [address]- 7499 May, [facility] [place] [facility] [address] [id number] [place] [address]- 0946 May, [facility] [place] [facility] [address] [id number] [place] [address]- 1773 May, [facility] [place] [facility] [address] [id number] [place] [address]- 5099 May, [facility] [place] [facility] [address] [id number] [place] [address]- 6516 May, [facility] [place] [facility] [address] [id number] [place] [address]- 4406 May, [facility] [place] [facility] [address] [id number] [place] [address]- 6686 Apr, [facility] [place] [facility] [address] [id number] [place] [address]- 0627 Apr, [facility] [place] [facility] [address] [id number] [place] [address]- 8128 Apr, [facility] [place] [facility] [address] [id number] [place] [address]- 6742 Apr, [facility] [place] [facility] [address] [id number] [place] [address]- 2023 Mar, [facility] [place] [facility] [address] [id number] [place] [address]- 1756 Mar, [facility] [place] [facility] [address] [id number] [place] [address]- 0329 Mar, [facility] [place] [facility] [address] [id number] [place] [address]- 6847 Mar, [facility] [place] [facility] [address] [id number] [place] [address]- 3268 Mar, [facility] [place] [facility] [address] [id number] [place] [address]- 9987 Mar, [facility] [place] [facility] [address] [id number] [place] [address]- 0173 Mar, [facility] [place] [facility] [address] [id number] [place] 7843 Mar, [facility] [place] [facility] [address] [id number] [place] [address]- 0193 Mar, [facility] [place] [facility] [address] [id number] [place] [address]- 9576 19 Mar, 2013 [facility] [place] [facility] [address] [id number] [place] [address]- 8076 14 Mar, 2013 [facility] [place] [facility] [address] [id number] [place] [address] 14 Mar, 2013 [facility] [place] [facility] [address] [id number] [place] [address] 2546 Mar, [facility] [place] [facility] [address] [id number] [place] [address] Mar, [facility] [place] [facility] [address] [id number] [place] [address] Mar, [facility] [place] [facility] [address] [id number] [place] [address] Mar, [facility] [place] [facility] [address] [id number] [place] [address] Mar, [facility] [place] [facility] [address] [facility] [id number] [place] [address] Mar, [facility] [place] [facility] [address] [facility] [id number] [place] [address] Mar, [facility] [place] [facility] [address] [facility] [id number] [place] [address] Mar, [facility] [place] [facility] [address] [id number] [place] [address] Feb, [facility] [place] [facility] [address] [id number] [place] [address] Feb, [facility] [place] [facility] [address] [id number] [place] [address] Feb, [facility] [place] [facility] [address] [id number] [place] [address] Feb, [facility] [place] [facility] [address] [id number] [place] [address] Feb, [facility] [place] [facility] [address] [id number] [place] [address] Feb, [facility] [place] [facility] [address] [id number] [place] [address] Feb, [facility] [place] [facility] [address] [id number] [place] [address] Feb, [facility] [place] [facility] [address] [id number] [place] [address] Feb, [facility] [place] [facility] [address] [id number] [place] [address] Feb, [facility] [place] [facility] [address] [id number] [place] [address] Feb, [facility] [place] [facility] [address] [id number], [place] [address] Feb, [facility] [place] [facility] [address] [id number] [place] [address] Feb, [facility] [place] [facility] [address] [id number], [place] [address] Feb, [facility] [place] [facility] [address] [id number], [place] [address] Feb, [facility] [place] [facility] [address] [id number], [place] [address] Feb, [facility] [place] [facility] [address] [id number], [place] [address] Feb, [facility] [place] [facility] [address] [id number], [place] [address] Feb, [facility] [facility] [address] [id number], [place] [address] Feb, [facility] [place] [facility] [address] [id number] [place] [address] 07 Feb, 2013 [facility] [address] [id number] [place] [address] Feb, [facility] [address] [id number] [place] [address] Feb, [facility] [address] [id number] [place] [address] Feb, [facility] [address] [id number] [place] [address] 24 Jan, 2013 [facility] [address] [id number] [place] [address] 24 Jan, 2013 [facility] [address] [id number] [place] [address] Jan, [facility] [address] [id number] [place] [address] 18 Jan, 2013 [facility] [address] [id number] [place] [address] 18 Jan, 2013 [facility] [address] [id number] [place] [address] 18 Jan, 2013 [facility] [address] [id number] [place] [address] 18 Jan, 2013 [facility] [place] [facility] [address] [id number] [place] [address] 17 Jan, 2013 [facility] [facility] [address] [id number] [place] [address] 17 Jan, 2013 [facility] [place] [facility] [address] [id number] [place] [address] 2013 [facility] [place] [facility] [address] [id number] [place] [address] 2013 [facility] [place] [facility] [address] [id number] [place] [address] Jan, [facility] [place] [facility] [address] [id number] [place] [address] Jan, [facility] [place] [facility] [address] [id number] [place] [address] Dec, [facility] [place] [facility] [address] [id number] [place] [address] Dec, [facility] [place] [facility] [address] [id number] [place] [address] Dec, [facility] [address] [id number] [place] [address] Dec, [facility] [place] [facility] [address] [id number] [place] [address] Dec, [facility] [address] [id number] [place] [address] Dec, [facility] [place] [facility] [address] [id number] [place] [address] Nov, [facility] [place] [facility] [address] [id number] [place] [address] Nov, [facility] [place] [facility] [address] [id number] [place] [address] Nov, [facility] [facility] [address] [id number] [place] [address] Nov, [facility] [address] [id number], [place] [address] Nov, [facility] [place] [facility] [address] [id number] [place] [address] Nov, [facility] [place] [facility] [address] [id number] [place] [address] Oct, [facility] [address] [id number] [place] [address] Oct, [facility] [address] [id number], [place] [address] Oct, [facility] [address] [facility] [id number] [place] [address] Oct, [facility] [address] [facility] [id number], [place] [address] Oct, [facility] [address] [facility] [id number], [place] [address] Oct, [facility] [address] [facility] [id number], [place] [address] Oct, IMMUNIZATIONS No Known Immunizations SOCIAL HISTORY Never Assessed REASON FOR VISIT f/u, contract PLAN OF CARE Activity Details Follow Up 4 Weeks Reason: f/u VITAL SIGNS MEDICATIONS Medication Instructions Dosage Frequency Start Date End Date Duration Status Diflucan 150 MG Orally Once a day 1 tablet 24h Mar, 1 dose Active Pristiq 50 mg Orally Once a day 1 tablet 24h Aug, 30 day(s) Active HydrOXYzine HCl 25 MG Orally three times a day as needed for anxiety 1 tablet Jan, 30 days Active Protonix 40 mg Orally Once a day 1 tablet 24h 90 days Active Ondansetron 4 MG Orally every 8 hrs prn 1 tablet on the tongue and allow to dissolve 14 Active Promethazine HCl 25 MG Orally every 4 hrs 1 tablet as needed 4h Active Concerta 27 MG Orally Once a day in the morning 1 tablet Aug, 28 days Active RESULTS No Results [...]
--- OUTSIDE RECORDS SUMMARY | 2017-12-03 14:21 | XMS REPORT ---
Author Author JACOBO June [facility] IN [facility] Address [address] [place] [address] Care Team Providers Care Ginner Name Role Phone JACOBO June Unavailable PROBLEMS Type Condition ICD9-CM Code FRX95-DF Code Onset Dates Condition Status SNOMED Code Problem ADHD (attention deficit hyperactivity disorder), combined type F90.2 Active 11242646 Problem Rhinitis, unspecified type J31.0 Active 04593147 Problem Depressive disorder, not elsewhere classified F32.9 Active 23178421 Problem Anxiety state F41.1 Active 077158763 Problem Unspecified mood [affective] disorder F39 Active 79186434 Problem Irritable bowel syndrome with diarrhea K58.0 Active 876840578 Problem Major depressive disorder, single episode, mild F32.0 Active 24570673 Problem Slow transit constipation K59.01 Active 68888627 Problem Plantar wart of right foot B07.0 Active [id number] Problem Anxiety disorder, unspecified type F41.9 Active [id number] ALLERGIES No Known Allergies ENCOUNTERS Encounter Location Date Diagnosis [place] [id number] [place] [address]303[address] 8396 Nov, [facility] [id number] [place] [address] 70024- 1658 Oct, ADHD (attention deficit hyperactivity disorder), combined type F90.2 ; Anxiety disorder, unspecified type F41.9 and Unspecified mood [ affective] disorder F39 [facility] [id number] [place] [address] 71211- 5015 Sep, ADHD (attention deficit hyperactivity disorder), combined type F90.2 [facility] [address] [address] Sep, [place] [address] [address] Aug, ADHD (attention deficit hyperactivity disorder), combined type F90.2 ; Major depressive disorder, single episode, mild F32.0 and Anxiety disorder, unspecified type F41.9 [facility] IN [facility] [address] [address] Aug, Sore throat J02.9 ; Other specified bacterial agents as the cause of diseases classified elsewhere B96.89 and Acute tonsillitis due to other specified organisms J03.80 [facility] [address] [address] Aug, ADHD (attention deficit hyperactivity disorder), combined type F90.2 [facility] [address] [address] Jul, ADHD (attention deficit hyperactivity disorder), combined type F90.2 [facility] [address] [address] June, ADHD (attention deficit hyperactivity disorder), combined type F90.2 ; Major depressive disorder, single episode, mild F32.0 and Anxiety disorder, unspecified type F41.9 [facility] [address] [address] June, [facility] [address] [address] June, ADHD (attention deficit hyperactivity disorder), combined type F90.2 [facility] [address], [place] [address] May, [facility] [address] [address] May, ADHD (attention deficit hyperactivity disorder), combined type F90.2 ; Major depressive disorder, single episode, mild F32.0 and Anxiety disorder, unspecified type F41.9 [facility] [address], [place] [address] May, Anxiety disorder, unspecified type F41.9 [facility] [address] [address] Apr, [facility] [id number] [place] [address] 30991- 0050 Apr, Anxiety disorder, unspecified type F41.9 [facility] [id number] [place] [address] 69651- 1561 Apr, Anxiety disorder, unspecified type F41.9 ; Major depressive disorder, single episode, mild F32.0 and ADHD (attention deficit hyperactivity disorder), combined type F90.2 [place] [id number] [place] [address] 22383- 7050 Apr, [place] [id number] [place] [address] 60304- 8354 Apr, ADHD (attention deficit hyperactivity disorder), combined type F90.2 ; Anxiety state F41.1 ; Depressive disorder, not elsewhere classified F32.9 ; Major depressive disorder, single episode, mild F32.0 and Anxiety disorder, unspecified type F41.9 [place] [id number] [place] [address] 55150- 3455 Mar, ADHD (attention deficit hyperactivity disorder), combined type F90.2 [place] [id number] [place] [address] 02104- 7395 Mar, Nausea R11.0 [place] [id number] [place] [address] 29043- 7110 13 Mar, 2017 Screening for STD sexually transmitted disease Z11.3 ; Vaginal candidiasis B37.3 and Irritable bowel syndrome with diarrhea K58.0 [place] [address] [place] [address] 08307- 5854 Mar, [facility] [id number] [place] [address] 49547- 0262 Feb, ADHD (attention deficit hyperactivity disorder), combined type F90.2 [facility] [address], [place] [address] Feb, Depressive disorder, not elsewhere classified F32.9 ; Anxiety state F41.1 and ADHD (attention deficit hyperactivity disorder), combined type F90.2 [facility] [address], [place] [address] Feb, Depressive disorder, not elsewhere classified F32.9 ; Anxiety state F41.1 and ADHD (attention deficit hyperactivity disorder), combined type F90.2 [facility] [address] [place] [address] 22160- 8614 Feb, ADHD (attention deficit hyperactivity disorder), combined type F90.2 [facility] [address], [place] [address] Jan, Other viral agents as the cause of diseases classified elsewhere B97.89 and Acute upper respiratory infection, unspecified J06.9 [facility] [address], [place] [address] 30[address] Jan, ADHD (attention deficit hyperactivity disorder), combined type F90.2 ; Major depressive disorder, single episode, mild F32.0 and Anxiety disorder, unspecified type F41.9 [place] [address], [place] [address] 7[address] Jan, [facility] [address] [place] [address] 51018- 5737 Jan, ADHD (attention deficit hyperactivity disorder), combined type F90.2 ; Major depressive disorder, single episode, mild F32.0 and Anxiety disorder, unspecified type F41.9 [facility] [address] [place] [address] 94943- 4110 Dec, Irritable bowel syndrome with diarrhea K58.0 and Lower abdominal pain R10.30 [facility] [address], [place] [address] 17[address] 09 Dec, 2016 Hospital discharge follow-up Z09 ; Mesenteric adenitis I88.0 ; IBD (inflammatory bowel disease) K52.9 and Nausea R11.0 [place] [id number] [place] [address] 50697- 6532 Nov, ADHD (attention deficit hyperactivity disorder), combined type F90.2 ; Major depressive disorder, single episode, mild F32.0 and Anxiety disorder, unspecified type F41.9 [place] [address] 61092- 4509 Nov, Anxiety state F41.1 ; ADHD (attention deficit hyperactivity disorder), combined type F90.2 ; Major depressive disorder, single episode, mild F32.0 and Anxiety disorder, unspecified type F41.9 [place] [id number] [place] [address] 42409- 7102 Oct, Anxiety state F41.1 ; ADHD (attention deficit hyperactivity disorder), combined type F90.2 ; Major depressive disorder, single episode, mild F32.0 and Anxiety disorder, unspecified type F41.9 [place] [id number] [place] [address] 21586- 6868 Oct, ADHD (attention deficit hyperactivity disorder), combined type F90.2 ; Major depressive disorder, single episode, mild F32.0 and Anxiety disorder, unspecified type F41.9 [place] [id number] [place] [address] 58917- 4402 Oct, Major depressive disorder, single episode, mild F32.0 ; Anxiety state F41.1 ; ADHD (attention deficit hyperactivity disorder), combined type F90.2 and Depressive disorder, not elsewhere classified F32.[address] [facility] [id number] [place] [address] 59104 -4567 16 Oct, 2016 [facility] [id number] [place] [address] 04404 [address]5389 Oct, Cellulitis L03.90 and Plantar wart of right foot B07.0 [place] [address] 51344- 9307 Aug, ADHD (attention deficit hyperactivity disorder), combined type F90.2 ; Major depressive disorder, single episode, mild F32.0 and Anxiety disorder, unspecified type F41.9 [place] [id number] [place] [address] 58764- 5434 Aug, [place] [id number] [place] [address] 31698- 6427 Jul, ADHD (attention deficit hyperactivity disorder), combined type F90.2 [place] [id number] [place] [address] 85815- 2142 Jul, Mesenteric adenitis I88.0 [place] [address] 27303- 1828 June, [facility] [id number] [place] [address] 85959 -4109 June, Lower abdominal pain R10.30 [place] [id number] [place] [address] 35395- 3792 June, [place] [id number] [place] [address] 57435- 1764 June, ADHD (attention deficit hyperactivity disorder), combined type F90.2 and Major depressive disorder, single episode, mild F32.0 [place] [id number] [place] [address] 53699- 8921 May, [place] [id number] [place] [address] 54067- 4029 May, ADHD (attention deficit hyperactivity disorder), combined type F90.2 and Major depressive disorder, single episode, mild F32.0 [facility] [id number] [place] [address] 51009 -1158 Apr, Abdominal pain R10.9 and Gastroenteritis and colitis, viral A08.4 [place] [id number] [place] [address] 44790- 1874 Apr, [facility] [id number] [place] [address] 15375 -1855 Mar, Acute urticaria L50.8 [facility] [id number] [place] [address] 84976- 8302 Mar, [facility] [address] 92424- 2090 Feb, [facility] [address] 56239 -0087 Feb, Gastroenteritis K52.9 [facility] [address] 33202- 6502 Feb, Irritant contact dermatitis due to cosmetics L24.3 [place] [address] 05484- 2123 Jan, [facility] [address] 87488- 7677 Jan, [facility] [address] 97429- 6714 Jan, ADHD (attention deficit hyperactivity disorder), combined type F90.2 and Major depressive disorder, single episode, mild F32.0 [facility] [id number] [place] [address] 21828 -1445 Dec, Flexural eczema L20.82 [facility] [id number] [place] [address] 27157- 0204 Dec, Encounter for test Z32.00 [facility] [id number] [place] [address] 34777- 4580 Dec, [facility] [address] 08778- 1098 Dec, [facility] [id number] [place] [address] 83697- 0722 Dec, [facility] [address] [place] [address] Nov, Sore throat J02.9 and Pharyngitis, unspecified etiology J02.9 [facility] [address] 43438- 2387 Nov, [facility] [address] 26841- 1451 Nov, [facility] [address] 12747- 6919 Nov, Generalized abdominal pain R10.84 and Slow transit constipation K59.01 [facility] [address] [id number] Nov, Pharyngitis, unspecified etiology J02.9 and Rhinitis, unspecified type J31.0 [facility] [address] 74582- 0472 Oct, Depressive disorder, not elsewhere classified F32.9 and ADHD (attention deficit hyperactivity disorder), combined type F90.2 [facility] [address] 74235- 1649 Oct, [facility] [address] 58946- 9883 Oct, [facility] [id number] [place] [address] 80764 -4135 Oct, Strep throat J02.0 [facility] [address] 62363- 7566 16 Oct, 2015 [facility] [address] 23887- 0795 Oct, 2016 Well woman exam with routine gynecological exam Z01.419 and Screening for STD sexually transmitted disease Z11.3 [facility] [id number] [place] [address] 89122- 2878 Sep, ADHD (attention deficit hyperactivity disorder), combined type F90.2 ; Anxiety state F41.1 and Depressive disorder, not elsewhere classified F32.9 [facility] [address] [facility] [id number] [address]- 1547 Sep, ADHD (attention deficit hyperactivity disorder), combined type F90.2 and Depressive disorder, not elsewhere classified F32.9 [facility] [address] [facility] [id number], [place] [address]- 1068 Aug, [facility] [address] [place] [id number] [place] [address] 86244- 0479 Aug, ADHD (attention deficit hyperactivity disorder), combined type F90.2 and Depressive disorder, not elsewhere classified F32.9 [facility] [id number], [place] [address]- 1426 Aug, ADHD (attention deficit hyperactivity disorder), combined type F90.2 ; Anxiety state F41.1 and Depressive disorder, not elsewhere classified F32.9 [facility] [id number], [place] [address]- 1551 Aug, [facility] [id number], [place] [address]- 8005 Aug, [facility] [id number] [place] [address] 92700- 7475 Jul, ADHD (attention deficit hyperactivity disorder), combined type F90.2 ; Depressive disorder, not elsewhere classified F32.9 and Anxiety state F41.1 [facility] [id number], [place] [address]- 0810 Jul, [facility] [id number], [place] [address]- 0016 Jul, ADHD (attention deficit hyperactivity disorder), combined type F90.2 ; Anxiety state F41.1 and Depressive disorder, not elsewhere classified F32.9 [facility] [id number] [address]- 8108 June, [facility] [id number] [id number] June, Constipation K59.00 [facility] [address] [facility] [id number] [place] [address]- 0952 May, Constipation K59.00 [facility] [address] [facility] [id number] [place] [address]69 May, Irritable bowel syndrome with diarrhea K58.0 [facility] [id number] [place] [address], [place] [address]- 3282 15 May, 2015 [facility] [address] [facility] [id number] [place] [address], [place] [address]- 4214 15 May, 2015 [facility] [id number] [place] [address], [place] [address]- 9529 14 May, 2014 [facility] [id number] [place] [address], [place] [address]- 1802 May, [facility] [id number] [place] [address] 51963- 1368 Jan, [facility] [address] [place] [address], [place] [address]- 9766 Jan, [facility] [address] [place] [address] 88911- 1494 Jan, [facility] [address], [place] [address]- 6621 Jan, [facility] [address] [place] [address] 84786- 8953 Jan, [facility] [id number], [place] [address]- 1715 Jan, [facility] [id number] [place] [address] 266739- 9524 Nov, [facility] [id number], [place] [address]- 9471 Nov, [facility] [id number] [place] [address] 80859- 3807 Oct, [facility] [place] [facility] [address] [id number] [place] [address]- 6018 Oct, [facility] [place] [facility] [address] [id number] [place] [address]- 9900 Sep, [facility] [place] [facility] [address] [id number] [place] [address]- 9881 Sep, [facility] [place] [facility] [address] [id number] [place] [address]- 5274 Aug, [facility] [place] [facility] [address] [id number] [place] [address]- 0658 Aug, [facility] [place] [facility] [address] [id number] [place] [address]- 4596 Aug, [facility] [place] [facility] [address] [id number] [place] [address]- 4311 Aug, [facility] [place] [facility] [address] [id number] [place] [address]- 4314 Aug, [facility] [place] [facility] [address] [id number] [place] [address]- 6000 Aug, [facility] [place] [facility] [address] [id number] [place] [address]- 2104 Aug, [facility] [place] [facility] [address] [id number] [place] [address]- 8252 Aug, [facility] [place] [facility] [address] [id number] [place] [address]- 3272 Jul, [facility] [place] [facility] [address] [id number] [place] [address]- 6898 Jul, [facility] [place] [facility] [address] [id number] [place] [address]- 1227 Jul, [facility] [place] [facility] [address] [id number] [place] [address]- 8598 Jul, [facility] [place] [facility] [address] [id number] [place] [address]- 9767 Jul, [facility] [place] [facility] [address] [id number] [place] [address]- 6907 Jul, [facility] [place] [facility] [address] [id number] [place] [address]- 7957 Jul, [facility] [place] [facility] [address] [id number] [place] [address]- 1210 Jul, [facility] [place] [facility] [address] [id number] [place] [address]- 5922 Jul, [facility] [place] [facility] [address] [id number] [place] [address]- 1787 June, [facility] [place] [facility] [address] [id number] [place] [address]- 9385 June, [facility] [place] [facility] [address] [id number] [place] [address]- 8978 May, [facility] [place] [facility] [address] [id number] [place] [address]- 7499 May, [facility] [place] [facility] [address] [id number] [place] [address]- 2429 May, [facility] [place] [facility] [address] [id number] [place] [address]- 9073 May, [facility] [place] [facility] [address] [id number] [place] [address]- 9516 May, [facility] [place] [facility] [address] [id number] [place] [address]- 6018 May, [facility] [place] [facility] [address] [id number] [place] [address]- 8569 May, [facility] [place] [facility] [address] [id number] [place] [address]- 8866 May, [facility] [place] [facility] [address] [id number] [place] [address]- 5322 May, [facility] [place] [facility] [address] [id number] [place] [address]- 3074 May, [facility] [place] [facility] [address] [id number] [place] [address]- 2932 May, [facility] [place] [facility] [address] [id number] [place] [address]- 1393 May, [facility] [place] [facility] [address] [id number] [place] [address]- 3409 Apr, [facility] [place] [facility] [address] [id number] [place] [address]- 6190 Apr, [facility] [place] [facility] [address] [id number] [place] [address]- 9715 Apr, [facility] [place] [facility] [address] [id number] [place] [address]- 2230 Apr, [facility] [place] [facility] [address] [id number] [place] [address]- 8607 Mar, [facility] [place] [facility] [address] [id number] [place] [address]- 0187 Mar, [facility] [place] [facility] [address] [id number] [place] [address]- 1406 Mar, [facility] [place] [facility] [address] [id number] [place] [address]- 6250 Mar, [facility] [place] [facility] [address] [id number] [place] [address]- 6973 Mar, [facility] [place] [facility] [address] [id number] [place] [address]- 9037 Mar, [facility] [place] [facility] [address] [id number] [place] [address]- 7826 Mar, [facility] [place] [facility] [address] [id number] [place] [address]- 6056 Mar, [facility] [place] [facility] [address] [id number] [place] [address]- 3737 Mar, [facility] [place] [facility] [address] [id number] [place] [address]- 4316 Mar, [facility] [place] [facility] [address] [id number] [place] [address]- 2546 14 Mar, 2013 [facility] [place] [facility] [address] [id number] [place] [address]- 1216 Mar, [facility] [place] [facility] [address] [id number] [place] [address]- 254 Mar, [facility] [place] [facility] [address] [id number] [place] [address] Mar, [facility] [place] [facility] [address] [facility] [id number] [place] [address] Mar, [facility] [place] [facility] [address] [id number] [place] [address] Mar, [facility] [place] [facility] [address] [facility] [facility] [id number] [place] [address] Mar, [facility] [place] [facility] [address] [facility] [id number] [place] [address] Mar, [facility] [place] [facility] [address] [facility] [id number] [place] [address] Mar, [facility] [place] [facility] [address] [id number], [place] [address] Mar, [facility] [place] [facility] [address] [id number] [place] [address] Feb, [facility] [place] [facility] [address] [id number] [place] [address] Feb, [facility] [place] [facility] [address] [facility] [id number], [place] [address] Feb, [facility] [place] [facility] [address] [id number], [place] [address] Feb, [facility] [address] [id number] [place] [address] Feb, [facility] [place] [facility] [address] [id number] [place] [address] Feb, [facility] [place] [facility] [address] [id number] [place] [address] Feb, [facility] [place] [facility] [address] [id number] [place] [address] Feb, [facility] [place] [facility] [address] [id number] [place] [address] Feb, [facility] [place] [facility] [address] [id number] [place] [address] Feb, [facility] [place] [facility] [address] [id number] [place] [address] 1990 Feb, [facility] [place] [facility] [address] [id number] [place] [address] Feb, [facility] [place] [facility] [address] [id number] [place] [address] Feb, [facility] [place] [facility] [address] [id number] [place] [place] [address] Feb, [facility] [place] [facility] [address] [id number], [place] [address] Feb, [facility] [place] [facility] [address] [id number], [place] [address] Feb, [facility] [place] [facility] [address] [id number], [place] [address] Feb, [facility] [place] [facility] [address] [id number], [place] [address] Feb, [facility] [place] [facility] [address] [id number], [place] [address] Feb, [facility] [place] [facility] [address] [id number] [place] [address] 07 Feb, 2013 [facility] [place] [facility] [address] [id number] [place] [address] Feb, [facility] [place] [facility] [address] [id number] [place] [address] Feb, [facility] [place] [facility] [address] [id number] [place] [address] Feb, [facility] [place] [facility] [address] [id number] [place] [address] Jan, [facility] [place] [facility] [address] [id number] [place] [address] Jan, [facility] [place] [facility] [address] [id number] [place] [address] Jan, [facility] [place] [facility] [address] [id number] [place] [address] Jan, [facility] [place] [facility] [address] [id number] [place] [address] 18 Jan, 2013 [facility] [place] [facility] [address] [id number] [place] [address] Jan, [facility] [place] [facility] [address] [id number] [place] 18 Jan, 2013 [facility] [place] [facility] [address] [id number] [place] [address] 17 Jan, 2013 [facility] [place] [facility] [address] [id number] [place] [address] 17 Jan, 2013 [facility] [place] [facility] [address] [id number] [place] [address] 2013 [facility] [place] [facility] [address] [id number] [place] [address] 2013 [facility] [place] [facility] [address] [id number] [place] [address]- [address] Jan, [facility] [place] [facility] [address] [id number] [place] [address] Jan, [facility] [place] [facility] [address] [id number] [place] [address] Dec, [facility] [place] [facility] [address] [id number] [place] [address] Dec, [facility] [place] [facility] [address] [id number] [place] [address] Dec, [facility] [place] [facility] [address] [id number] [place] [address] Dec, [facility] [place] [facility] [address] [id number] [place] [address]- [address] Dec, [facility] [place] [facility] [address] [id number] [place] [address]- [address] Dec, [facility] [place] [facility] [address] [id number], [place] [address] Nov, [facility] [place] [facility] [address] [id number] [place] [address] Nov, [facility] [place] [facility] [address] [id number], [place] [address] Nov, [facility] [place] [facility] [address] [id number], [place] [address] Nov, [facility] [place] [facility] [address] [id number], [place] [address] Nov, [facility] [place] [facility] [address] [id number], [place] [address] Nov, [facility] [place] [facility] [address] [id number], [place] [address] 28 Oct, 2012 [facility] [place] [facility] [address] [id number], [place] [address] 27 Oct, 2012 [facility] [place] [facility] [address] [facility] [id number] [place] [address] 26 Oct, 2012 [facility] [address] [facility] [id number], [place] [address] Oct, [facility] [address] [facility] [id number], [place] [address] Oct, [facility] [address] [facility] [id number], [place] [address] 18 Oct, 2012 [facility] [address] [facility] [id number][place] [address] Oct, IMMUNIZATIONS No Known Immunizations SOCIAL HISTORY Never Assessed REASON FOR VISIT went to [facility] ER 9 days ago et was dx with strep throat. received OCN shot in the ER. still doesnt feel good. throat still hurts. [email or web address], currently off all medications for the past month PLAN OF CARE Activity Details Follow Up prn Reason: VITAL SIGNS Height 59 in 2017-09-19 Weight 134.0 lbs 2017-09-19 Temperature 98.2 degrees Fahrenheit 2017-09-19 Heart Rate 88 bpm 2017-09-19 Respiratory Rate 20 2017-09-19 BMI 27.06 kg/m2 2017-09-19 Blood pressure systolic 110 mmHg 2017-09-19 Blood pressure diastolic 70 mmHg 2017-09-19 MEDICATIONS Medication Instructions Dosage Frequency Start Date End Date Duration Status Amoxicillin 500 MG Orally every 12 hrs 1 capsule 12h Aug, Sep, 10 day(s) Active RESULTS Name Result Date Reference Range STREP A (IN HOUSE) 2017-09-19 STREP A negative Control + Lot # [id number] Exp date 2019 PROCEDURES Procedure Date Ordered Result Body Site STREP A ASSAY W/OPTIC September 19, 2017 INSTRUCTIONS MEDICATIONS ADMINISTERED No Known Medications [...]
[2017-12-03 14:24] LABS: BASOPHILS % (AUTO) 0 % (0-10); EOSINOPHILS # (AUTO) 0.2 10^3/uL (0.0-0.3); EOSINOPHILS % (AUTO) 3 % (0-10); HEMATOCRIT 43 % (35-52); HEMOGLOBIN 14.4 G/DL (11.5-16.0); LYMPHOCYTES # (AUTO) 1.4 X 10^3 (1.0-4.0); LYMPHOCYTES % (AUTO) 16 % (12-44); MEAN CORPUSCULAR HEMOGLOBIN 28 PG (25-34); MEAN CORPUSCULAR HGB CONC 34 G/DL (32-36); MEAN CORPUSCULAR VOLUME 83 FL (80-99); MEAN PLATELET VOLUME 11.1 FL (7.4-10.4); MONOCYTES # (AUTO) 0.7 X 10^3 (0.0-1.0); MONOCYTES % (AUTO) 8 % (0-12); NEUTROPHILS % (AUTO) 73 % (42-75); PLATELET COUNT 273 10^3/uL (130-400); RED BLOOD COUNT 5.13 10^6/uL (4.35-5.85); RED CELL DISTRIBUTION WIDTH 14.8 % (10.0-14.5); WHITE BLOOD COUNT 8.3 10^3/uL (4.3-11.0)
--- OUTSIDE RECORDS SUMMARY | 2017-12-03 14:29 | XMS REPORT | Continuity of Care Document ---
Demographics x Preferred Language Unknown Marital Status Unknown Gnosticist Affiliation Unknown Race Unknown Ethnic Group Unknown Author Author [facility] Organization [facility] Address Unknown Phone Unavailable Allergies Active Description Code Type Severity Reaction Onset Reported/Identified Relationship to Patient Clinical Status Yes No Known Drug Allergies [id number] ND N/A N/A Confirmed or Verified Yes No Known Drug Allergies [id number] Drug Allergy Unknown N/A 08/06/2016 Medications Medication [...] MD V72.42 TEST POSITIVE RESULT 11/02/2012 RAJOTTE DIRECTOR OF MANUFACTURING OPERATIONS, JERRI A 626.0 AMENORRHEA 11/02/2012 RICOE DIRECTOR OF MANUFACTURING OPERATIONS, JERRI A V72.42 TEST POSITIVE RESULT 11/02/2012 GENARO JURADO MD N 626.0 AMENORRHEA 11/02/2012 GENARO JURADO MD V72.42 TEST POSITIVE RESULT 11/02/2012 ELSY PICHARDO, LEONARD K 626.0 AMENORRHEA 11/02/2012 LORAINE CHIN DOA K V72.42 TEST POSITIVE RESULT 11/02/2012 GENARO JURADO MD N 626.0 AMENORRHEA 11/02/2012 GENARO JURADO MD V72.42 TEST POSITIVE RESULT 11/02/2012 [facility], MORRIS A 626.0 AMENORRHEA 11/02/2012 [facility], [facility] Mcgrath V72.42 TEST POSITIVE RESULT 11/02/2012 GENARO JURADO MD N 626.0 AMENORRHEA 11/02/2012 GENARO JURADO MD V72.42 TEST POSITIVE RESULT 11/02/2012 GENARO JURADO MD N 626.0 AMENORRHEA 11/02/2012 GENARO JURADO MD V72.42 TEST POSITIVE RESULT 11/02/2012 GENARO JURADO MD N 626.0 AMENORRHEA 11/02/2012 GENARO JURADO MD V72.42 TEST POSITIVE RESULT 11/02/2012 [facility], MORRIS A 626.0 AMENORRHEA 11/02/2012 [facility], [facility] Mcgrath V72.42 TEST POSITIVE RESULT 11/02/2012 GENARO JURADO MD N 626.0 AMENORRHEA 11/02/2012 GENARO JURADO MD V72.42 TEST POSITIVE RESULT 11/02/2012 RHIANNON POLANCO, GENARO N 626.0 AMENORRHEA 11/02/2012 GENARO JURADO MD V72.42 TEST POSITIVE RESULT 11/02/2012 [facility], MORRIS A 626.0 AMENORRHEA 11/02/2012 [facility], [facility] A V72.42 TEST POSITIVE RESULT 11/02/2012 RHIANNON POLANCO, GENARO N 626.0 AMENORRHEA 11/02/2012 GENARO JURADO MD V72.42 TEST POSITIVE RESULT 11/02/2012 RHIANNON POLANCO, GENARO N 626.0 AMENORRHEA 11/02/2012 GENARO JURADO MD V72.42 TEST POSITIVE RESULT 11/02/2012 CARY DIRECTOR OF MANUFACTURING OPERATIONS, JOSE ALEJANDRO A 626.0 AMENORRHEA 11/02/2012 CARY DIRECTOR OF MANUFACTURING OPERATIONS, JOSE ALEJANDRO A V72.42 TEST POSITIVE RESULT 11/02/2012 CARY DIRECTOR OF MANUFACTURING OPERATIONS, JOSE ALEJANDRO A 626.0 AMENORRHEA 11/02/2012 CARY DIRECTOR OF MANUFACTURING OPERATIONS, JOSE ALEJANDRO A V72.42 TEST POSITIVE RESULT 11/02/2012 LEONARD CHIN DO K 626.0 AMENORRHEA 11/02/2012 LEONARD CHIN DO K V72.42 TEST POSITIVE RESULT 11/02/2012 [facility] DDS, ADDISON B 626.0 AMENORRHEA 11/02/2012 [facility] DDS, ADDISON B V72.42 TEST POSITIVE [...] SUPERVISION OF HIGH-RISK WITH YOUNG PRIMIGRAVIDA 11/07/2012 [facility] V23.83 SUPERVISION OF HIGH-RISK WITH YOUNG PRIMIGRAVIDA 11/07/2012 GENARO JURADO MD V23.83 SUPERVISION OF HIGH-RISK WITH YOUNG PRIMIGRAVIDA 11/07/2012 GENARO JURADO MD V23.83 SUPERVISION OF HIGH-RISK WITH YOUNG PRIMIGRAVIDA 11/07/2012 GENARO JURADO MD V23.83 SUPERVISION OF HIGH-RISK WITH YOUNG PRIMIGRAVIDA 11/07/2012 [facility] V23.83 SUPERVISION OF HIGH-RISK WITH YOUNG PRIMIGRAVIDA 11/07/2012 GENARO JURADO MD V23.83 SUPERVISION OF HIGH-RISK WITH YOUNG PRIMIGRAVIDA 11/07/2012 GENARO JURADO MD V23.83 SUPERVISION OF HIGH-RISK WITH YOUNG PRIMIGRAVIDA 11/07/2012 [facility] V23.83 SUPERVISION OF HIGH-RISK WITH YOUNG PRIMIGRAVIDA [...] K V23.9 , HIGH-RISK (UNSPEC) 11/14/2012 MICHAELOTTE DIRECTOR OF MANUFACTURING OPERATIONS, JERRI A V23.9 , HIGH-RISK (UNSPEC) 11/14/2012 ELSY PICHARDO, LEONARD K V23.9 , HIGH-RISK (UNSPEC) 11/14/2012 ELSY PICHARDO, LEONARD K V23.9 , HIGH-RISK (UNSPEC) 11/14/2012 GENARO JURADO MD N V23.9 , HIGH-RISK (UNSPEC) 11/14/2012 MANUEL DIRECTOR OF MANUFACTURING OPERATIONS, JERRI A V23.9 , HIGH-RISK (UNSPEC) 11/14/2012 GENARO JURADO MD V23.9 , HIGH-RISK (UNSPEC) 11/14/2012 ELSY PICHARDO, LEONARD K V23.9 , HIGH-RISK (UNSPEC) 11/14/2012 GENARO JURADO MD N V23.9 , HIGH-RISK (UNSPEC) 11/14/2012 [facility], [facility] A V23.9 , HIGH-RISK (UNSPEC) 11/14/2012 GENARO JURADO MD N V23.9 , HIGH-RISK (UNSPEC) 11/14/2012 GENARO JURADO MD N V23.9 , HIGH-RISK (UNSPEC) 11/14/2012 GENARO JURADO MD N V23.9 , HIGH-RISK (UNSPEC) 11/14/2012 [facility], [facility] A V23.9 , HIGH-RISK (UNSPEC) 11/14/2012 GENARO JURADO MD N V23.9 , HIGH-RISK (UNSPEC) 11/14/2012 GENARO JURADO MD N V23.9 , HIGH-RISK (UNSPEC) 11/14/2012 [facility], [facility] A V23.9 , HIGH-RISK (UNSPEC) 11/14/2012 GENARO JURADO MD N V23.9 , HIGH-RISK (UNSPEC) 11/14/2012 GENARO JURADO MD N V23.9 , HIGH-RISK (UNSPEC) 11/14/2012 CARY DIRECTOR OF MANUFACTURING OPERATIONS, JOSE ALEJANDRO A V23.9 , HIGH-RISK (UNSPEC) [...] DERMATITIS AND OTHER ECZEMA UNSPECIFIED CAUSE 11/22/2012 [facility] Mcgrath 530.81 GERD 11/22/2012 [facility] A 655.03 ABNORMAL TETRA SCREEN (NTD) 11/22/2012 [facility] Alcides 692.9 CONTACT DERMATITIS AND OTHER ECZEMA UNSPECIFIED CAUSE 11/22/2012 GENARO JURADO MD N 530.81 GERD 11/22/2012 GENARO JURADO MD 655.03 ABNORMAL TETRA SCREEN (NTD) 11/22/2012 GENARO JURADO MD 692.9 CONTACT DERMATITIS AND OTHER ECZEMA UNSPECIFIED CAUSE 11/22/2012 GENARO JRUADO MD N 530.81 GERD 11/22/2012 GENARO JURADO MD N 655.03 ABNORMAL TETRA SCREEN (NTD) 11/22/2012 GENARO JURADO MD N 692.9 CONTACT DERMATITIS AND OTHER ECZEMA UNSPECIFIED CAUSE 11/22/2012 GENARO JURADO MD N 530.81 GERD 11/22/2012 GENARO JURADO MD N 655.03 ABNORMAL TETRA SCREEN (NTD) 11/22/2012 GENARO JURADO MD N 692.9 CONTACT DERMATITIS AND OTHER ECZEMA UNSPECIFIED CAUSE 11/22/2012 [facility] Mcgrath 530.81 GERD 11/22/2012 [facility] Mcgrath 655.03 ABNORMAL TETRA SCREEN (NTD) 11/22/2012 [facility] Mcgrath 692.9 CONTACT DERMATITIS AND OTHER [...] DERMATITIS AND OTHER ECZEMA UNSPECIFIED CAUSE 11/22/2012 [facility] Mcgrath 530.81 GERD 11/22/2012 [facility] Mcgrath 655.03 ABNORMAL TETRA SCREEN (NTD) 11/22/2012 [facility], [facility] A 692.9 CONTACT DERMATITIS AND OTHER [...] GENARO JURADO MD V04.81 FLU SHOT 2013 [facility], [facility] A V04.81 FLU SHOT 2013 RHIANNON POLANCO, GENARO N V04.81 FLU SHOT 2013 RHIANNON POLANCO, GENARO N V04.81 FLU SHOT 2013 RHIANNON POLANCO, GENARO N V04.81 FLU SHOT 2013 [facility], [facility] A V04.81 FLU SHOT 2013 RHIANNON POLANCO, GENARO N V04.81 FLU SHOT 2013 RHIANNON POLANCO, GENARO N V04.81 FLU SHOT 2013 [facility], [facility] A V04.81 FLU SHOT 2013 RHIANNON POLANCO, GENARO N V04.81 FLU SHOT 2013 RHIANNON POLANCO, GENARO N V04.81 FLU SHOT 2013 CARY DIRECTOR OF MANUFACTURING OPERATIONS, JOSE ALEJANDRO A V04.81 FLU SHOT 2013 CARY DIRECTOR OF MANUFACTURING OPERATIONS, JOSE ALEJANDRO A V04.81 FLU SHOT 2013 [...] 01/23/2013 GENARO JURADO MD V22.2 INCIDENTAL 01/23/2013 [facility], [facility] Mcgrath 477.9 RHINITIS 01/23/2013 [facility], [facility] Mcgrath V22.2 INCIDENTAL 01/23/2013 GENARO JURADO MD 477.9 RHINITIS 01/23/2013 GENARO JURADO MD N V22.2 INCIDENTAL 01/23/2013 GENARO JURADO MD 477.9 RHINITIS 01/23/2013 RHIANNON POLANCO, GENARO N V22.2 INCIDENTAL 01/23/2013 GENARO JURADO MD N 477.9 RHINITIS 01/23/2013 RHIANNON POLANCO, GENARO N V22.2 INCIDENTAL 01/23/2013 [facility], [facility] A 477.9 RHINITIS 01/23/2013 [facility], [facility] A V22.2 INCIDENTAL 01/23/2013 GENARO JURADO MD N 477.9 RHINITIS 01/23/2013 RHIANNON POLANCO, GENARO N V22.2 INCIDENTAL 01/23/2013 RHIANNON POLANCO, GENARO N 477.9 RHINITIS 01/23/2013 GENARO JURADO MD N V22.2 INCIDENTAL 01/23/2013 [facility], [facility] A 477.9 RHINITIS 01/23/2013 [facility], [facility] A V22.2 INCIDENTAL 01/23/2013 GENARO JURADO MD N 477.9 RHINITIS 01/23/2013 GENARO JURADO MD N V22.2 INCIDENTAL 01/23/2013 GENARO JURADO MD N 477.9 RHINITIS 01/23/2013 RHIANNON POLANCO, GENARO N V22.2 INCIDENTAL 01/23/2013 CARY DIRECTOR OF MANUFACTURING OPERATIONS, JOSE ALEJANDRO A 477.9 RHINITIS 01/23/2013 CARY DIRECTOR OF MANUFACTURING OPERATIONS, JOSE ALEJANDRO A V22.2 INCIDENTAL 01/23/2013 CARY DIRECTOR OF MANUFACTURING OPERATIONS, JOSE ALEJANDRO A 477.9 RHINITIS 01/23/2013 CARY DIRECTOR OF MANUFACTURING OPERATIONS, JOSE ALEJANDRO A V22.2 INCIDENTAL 01/23/2013 CHIN DO, LEONARD K 477.9 RHINITIS 01/23/2013 CHIN DO LEONARD K V22.2 INCIDENTAL 01/23/2013 ANGIE DDS, ADDISON B 477.9 RHINITIS 01/23/2013 ANGIE DDS, ADDISON B V22.2 INCIDENTAL 01/28/2013 LORAINE CHIN DOA K 296.90 MOOD DISORDER NOS 01/28/2013 GENARO JURADO MD 296.90 MOOD DISORDER NOS 01/28/2013 [facility], [facility] Mcgrath 296.90 MOOD DISORDER NOS 01/28/2013 GENARO JURADO MD 296.90 MOOD DISORDER NOS 01/28/2013 ANISHA JURADO MDY N 296.90 MOOD DISORDER NOS 01/28/2013 ANISHA JURADO MDY N 296.90 MOOD DISORDER NOS 01/28/2013 [facility], [facility] A 296.90 MOOD DISORDER NOS 01/28/2013 RHIANNON POLANCO GENARO N 296.90 MOOD DISORDER NOS 01/28/2013 RHIANNON POLANCO GENARO N 296.90 MOOD DISORDER NOS 01/28/2013 [facility], [facility] A 296.90 MOOD DISORDER NOS 01/28/2013 [...] GENARO N 296.90 MOOD DISORDER NOS 02/05/2013 [facility], [facility] A 296.90 MOOD DISORDER NOS 02/05/2013 RHIANNON POLANCO GENARO N 296.90 MOOD DISORDER NOS 02/05/2013 RHIANNON POLANCO GENARO N 296.90 MOOD DISORDER NOS 02/05/2013 RHIANNON POLANCO GENARO N 296.90 MOOD DISORDER NOS 02/05/2013 [facility], [facility] A 296.90 MOOD DISORDER NOS 02/05/2013 RHIANNON POLANCO GENARO N 296.90 MOOD DISORDER NOS 02/05/2013 RHIANNON POLANCO GENARO N 296.90 MOOD DISORDER NOS 02/05/2013 [facility], [facility] A 296.90 MOOD DISORDER NOS 02/05/2013 RHIANNON POLANCO GENARO N 296.90 MOOD DISORDER NOS 02/05/2013 RHIANNON POLANCO GENARO N 296.90 MOOD DISORDER NOS 02/05/2013 CARYMAXIMILIANO LÓPEZ JOSE ALEJANDRO A 296.90 MOOD DISORDER NOS 02/05/2013 CARY DIRECTOR OF MANUFACTURING OPERATIONS, JOSE ALEJANDRO A 296.90 MOOD DISORDER NOS [...] GENARO JURADO MD V06.1 TDAP DX 03/06/2013 [facility], [facility] Mcgrath 649.60 UTER INE SIZE DATE DISCREPANCY -SGA 03/06/2013 [facility], [facility] Mcgrath V06.1 TDAP DX 03/06/2013 GENARO [...] GENARO JURADO MD V06.1 TDAP DX 03/06/2013 [facility], [facility] Mcgrath 649.60 UTER INE SIZE DATE DISCREPANCY -SGA 03/06/2013 [facility], [facility] Mcgrath V06.1 TDAP DX 03/06/2013 GENARO JURADO MD N 649.60 UTER INE SIZE DATE DISCREPANCY -SGA 03/06/2013 GENARO JURADO MD N V06.1 TDAP DX 03/06/2013 GENARO JURADO MD N 649.60 UTER INE SIZE DATE DISCREPANCY -SGA 03/06/2013 GENARO JURADO MD N V06.1 TDAP DX 03/06/2013 [facility], [facility] Mcgrath 649.60 UTER INE SIZE DATE DISCREPANCY -SGA 03/06/2013 [facility], [facility] A V06.1 TDAP DX 03/06/2013 GENARO JURADO MD 649.60 UTER INE SIZE DATE DISCREPANCY -SGA 03/06/2013 GENARO JURADO MD V06.1 TDAP DX 03/06/2013 GENARO JURADO MD 649.60 UTER INE SIZE DATE DISCREPANCY -SGA 03/06/2013 GENARO JURADO MD V06.1 TDAP DX 03/06/2013 CARY [employer] OF MANUFACTURING OPERATIONS, JOSE ALEJANDRO A 649.60 UTER INE SIZE DATE DISCREPANCY -SGA 03/06/2013 CARY DIRECTOR OF MANUFACTURING OPERATIONS, JOSE ALEJANDRO A V06.1 TDAP DX 03/06/2013 CARY DIRECTOR OF MANUFACTURING OPERATIONS, JOSE ALEJANDRO A 649.60 UTER INE SIZE DATE DISCREPANCY -SGA 03/06/2013 CARY DIRECTOR OF MANUFACTURING OPERATIONS, JOSE ALEJANDRO A V06.1 TDAP DX 03/06/2013 [...] A 564.00 UNSPECIFIED CONSTIPATION 06/12/2013 JOSE ALEJANDRO TOWNSEND APRN A V24.2 F/U, ROUTINE 06/12/2013 JOSE [...] F F43.8 Other reactions to severe stress Brady, Telisa 01/14/2015 F F43.8 Other reactions to severe stress Miguel, Telisa 07/12/2015 LEONARD CHIN DO Ot 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 07/12/2015 LEONARD CHIN DO Ot V23.83 SUPRV HIGH-RISK PREG-YOUNG PRIMIGRAVIDA 07/12/2015 RHIANNON POLANCO, GENARO Pulido Ot 649.63 UTERINE SIZE DATE DISCREPANCY, ANTEPARTU 07/12/2015 RHIANNON POLANCO, GENARO Pulido Ot 656.53 POOR GRTH-ANTEPART 07/12/2015 JOSE ALEJANDRO TOWNSEND DIRECTOR OF MANUFACTURING OPERATIONS Ot 646.83 PREG COMPL NEC-ANTEPART 07/12/2015 JOSE ALEJANDRO TOWNSEND DIRECTOR OF MANUFACTURING OPERATIONS Ot 789.00 ABDOMINAL PAIN, UNSPECIFIED SITE 07/12/2015 Ot 656.53 POOR GRTH-ANTEPART 07/12/2015 ROSA ESTEVEZ DIRECTOR OF MANUFACTURING OPERATIONS Ot K58.9 IRRITABLE BOWEL SYNDROME WITHOUT DIARRHE 07/12/2015 ROSA ESTEVEZ DIRECTOR OF MANUFACTURING OPERATIONS Ot R10.84 GENERALIZED ABDOMINAL PAIN 07/13/2015 ROSA ESTEVEZ DIRECTOR OF MANUFACTURING OPERATIONS Ot K58.9 IRRITABLE BOWEL SYNDROME WITHOUT DIARRHE 07/13/2015 ROSA ESTEVEZ DIRECTOR OF MANUFACTURING OPERATIONS Ot R10.84 GENERALIZED ABDOMINAL PAIN 07/14/2015 ROSA ESTEVEZ DIRECTOR OF MANUFACTURING OPERATIONS Ot K58.9 IRRITABLE BOWEL SYNDROME WITHOUT DIARRHE 07/14/2015 ROSA ESTEVEZ DIRECTOR OF MANUFACTURING OPERATIONS Ot R10.84 GENERALIZED ABDOMINAL PAIN 07/14/2015 LEONARD CHIN DO Ot 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 07/14/2015 LEONARD CHIN DO Ot V23.83 SUPRV HIGH-RISK PREG-YOUNG PRIMIGRAVIDA 07/14/2015 RHIANNON POLANCO, GENARO Pluido Ot 649.63 UTERINE SIZE DATE DISCREPANCY, ANTEPARTU 07/14/2015 GENARO JURADO MD Ot 656.53 POOR GRTH-ANTEPART 07/14/2015 NICK TOWNSENDIDI A DIRECTOR OF MANUFACTURING OPERATIONS Ot 646.83 PREG COMPL NEC-ANTEPART 07/14/2015 NICK TOWNSENDIDI A DIRECTOR OF MANUFACTURING OPERATIONS Ot 789.00 ABDOMINAL PAIN, UNSPECIFIED SITE 07/14/2015 Ot 656.53 POOR GRTH-ANTEPART 08/08/2015 LEONARD CHIN DO Ot 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 08/08/2015 LEONARD CHIN DO Ot V23.83 SUPRV HIGH-RISK PREG-YOUNG PRIMIGRAVIDA 08/08/2015 GENARO JURADO MD Ot 649.63 UTERINE SIZE DATE DISCREPANCY, ANTEPARTU 08/08/2015 GENARO JURADO MD Ot 656.53 POOR GRTH-ANTEPART 08/08/2015 CARYNICKJOSE ALEJANDRO A DIRECTOR OF MANUFACTURING OPERATIONS Ot 646.83 PREG COMPL NEC-ANTEPART 08/08/2015 NICK TOWNSENDIDI A DIRECTOR OF MANUFACTURING OPERATIONS Ot 789.00 ABDOMINAL PAIN, UNSPECIFIED SITE 08/08/2015 Ot 656.53 POOR GRTH-ANTEPART 08/08/2015 LEONARD CHIN DO Ot 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 08/08/2015 LEONARD CHIN DO Ot V23.83 SUPRV HIGH-RISK PREG-YOUNG PRIMIGRAVIDA 08/08/2015 GENARO JURADO MD Ot 649.63 UTERINE SIZE DATE DISCREPANCY, ANTEPARTU 08/08/2015 GENARO JURADO MD Ot 656.53 POOR GRTH-ANTEPART 08/08/2015 NICK TOWNSENDIDI A DIRECTOR OF MANUFACTURING OPERATIONS Ot 646.83 PREG COMPL NEC-ANTEPART 08/08/2015 NICK TOWNSENDIDI A DIRECTOR OF MANUFACTURING OPERATIONS Ot 789.00 ABDOMINAL PAIN, UNSPECIFIED SITE 08/08/2015 Ot 656.53 POOR GRTH-ANTEPART 08/08/2015 NEVILLE FLOWERS Ot K58.0 IRRITABLE BOWEL SYNDROME WITH DIARRHEA 08/08/2015 NEVILLE FLOWERS Ot R11.2 NAUSEA WITH VOMITING, UNSPECIFIED 08/08/2015 LEONARD CHIN DO Ot 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 08/08/2015 CHIN DO, LEONARD K Ot V23.83 SUPRV HIGH-RISK PREG-YOUNG PRIMIGRAVIDA 08/08/2015 RHIANNON POLANCO, GENARO Pulido Ot 649.63 UTERINE SIZE DATE DISCREPANCY, ANTEPARTU 08/08/2015 GENARO JURADO MD Ot 656.53 POOR GRTH-ANTEPART 08/08/2015 CARYNICK VIERAIDI A DIRECTOR OF MANUFACTURING OPERATIONS Ot 646.83 PREG COMPL NEC-ANTEPART 08/08/2015 CARY, JOSE ALEJANDRO A DIRECTOR OF MANUFACTURING OPERATIONS Ot 789.00 ABDOMINAL PAIN, UNSPECIFIED SITE 08/08/2015 Ot 656.53 POOR GRTH-ANTEPART 08/08/2015 CHIN LORAINE PICHARDOA K Ot 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 08/08/2015 CHIN LEONARD PICHARDO Ot V23.83 SUPRV HIGH-RISK PREG-YOUNG PRIMIGRAVIDA 08/08/2015 GENARO JURADO MD N Ot 649.63 UTERINE SIZE DATE DISCREPANCY, ANTEPARTU 08/08/2015 GENARO JURADO MD Ot 656.53 POOR GRTH-ANTEPART 08/08/2015 CARY, JOSE ALEJANDRO A DIRECTOR OF MANUFACTURING OPERATIONS Ot 646.83 PREG COMPL NEC-ANTEPART 08/08/2015 CARY, JOSE ALEJANDRO A DIRECTOR OF MANUFACTURING OPERATIONS Ot 789.00 ABDOMINAL PAIN, UNSPECIFIED SITE 08/08/2015 [...] OTHER EXTERNAL CAUSE STATUS 09/24/2015 ROSA ESTEVEZ DIRECTOR OF MANUFACTURING OPERATIONS Ot S60.222A CONTUSION OF LEFT HAND, INITIAL ENCOUNTE 09/24/2015 ROSA ESTEVEZ DIRECTOR OF MANUFACTURING OPERATIONS Ot S69.92XA UNSP INJURY OF LEFT WRIST, HAND AND FING 09/24/2015 ROSA ESTEVEZ DIRECTOR OF MANUFACTURING OPERATIONS Ot W22.09XA STRIKING AGAINST OTHER STATIONARY OBJECT 09/24/2015 ROSA ESTEVEZ DIRECTOR OF MANUFACTURING OPERATIONS Ot Y99.8 OTHER EXTERNAL CAUSE STATUS 10/08/2015 [...] BITE (NONVENOMOUS) OF OTHER PART 03/24/2016 ROSA ESTEVZE APRN Ot S10.96XA INSECT BITE OF UNSPECIFIED [...] STATUS 06/14/2016 LEONARD CHIN DO Ot 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 06/14/2016 LEONARD CHIN DO Ot V23.83 SUPRV HIGH-RISK PREG-YOUNG PRIMIGRAVIDA 06/14/2016 GENARO JURADO MD Ot 649.63 UTERINE SIZE DATE DISCREPANCY, ANTEPARTU 06/14/2016 GENARO JURADO MD Ot 656.53 POOR GRTH-ANTEPART 06/14/2016 JOSE ALEJANDRO TOWNSEND DIRECTOR OF MANUFACTURING OPERATIONS Ot 646.83 PREG COMPL NEC-ANTEPART 06/14/2016 JOSE ALEJANDRO TOWNSEND DIRECTOR OF MANUFACTURING OPERATIONS Ot 789.00 ABDOMINAL PAIN, UNSPECIFIED SITE 06/14/2016 [...] NAUSEA WITH VOMITING, UNSPECIFIED 08/01/2016 ROSA ESTEVEZ DIRECTOR OF MANUFACTURING OPERATIONS Ot J45.909 UNSPECIFIED ASTHMA, UNCOMPLICATED 08/01/2016 ROSA ESTEVEZ DIRECTOR OF MANUFACTURING OPERATIONS Ot N83.201 UNSPECIFIED OVARIAN CYST, RIGHT SIDE 08/01/2016 ROSA ESTEVEZ DIRECTOR OF MANUFACTURING OPERATIONS Ot R10.31 RIGHT LOWER QUADRANT PAIN 08/01/2016 ROSA ESTEVEZ DIRECTOR OF MANUFACTURING OPERATIONS Ot Z87.19 PERSONAL HISTORY OF OTHER DISEASES OF 08/03/2016 ROSA ESTEVEZ DIRECTOR OF MANUFACTURING OPERATIONS Ot J45.909 UNSPECIFIED ASTHMA, UNCOMPLICATED 08/03/2016 ROSA ESTEVEZ DIRECTOR OF MANUFACTURING OPERATIONS Ot N83.201 UNSPECIFIED OVARIAN CYST, RIGHT SIDE 08/03/2016 ROSA ESTEVEZ DIRECTOR OF MANUFACTURING OPERATIONS Ot R10.31 RIGHT LOWER QUADRANT PAIN 08/03/2016 ROSA ESTEVEZ DIRECTOR OF MANUFACTURING OPERATIONS Ot Z87.19 PERSONAL HISTORY OF OTHER DISEASES OF 08/06/2016 Ot 656.53 POOR GRTH-ANTEPART 08/07/2016 ANGIE DO, BRENDA K Ot I88.0 NONSPECIFIC MESENTERIC LYMPHADENITIS 08/07/2016 ANGIE DO, BRENDA K Ot N39.0 URINARY TRACT INFECTION, SITE NOT SPECIF 08/07/2016 ANGIE DO, BRENDA K Ot R10.30 LOWER ABDOMINAL PAIN, UNSPECIFIED 08/07/2016 ROSA ESTEVEZ DIRECTOR OF MANUFACTURING OPERATIONS Ot J45.909 UNSPECIFIED ASTHMA, UNCOMPLICATED 08/07/2016 ROSA ESTEVEZ DIRECTOR OF MANUFACTURING OPERATIONS Ot N83.201 UNSPECIFIED OVARIAN CYST, RIGHT SIDE 08/07/2016 ROSA ESTEVEZ DIRECTOR OF MANUFACTURING OPERATIONS Ot R10.31 RIGHT LOWER QUADRANT PAIN 08/07/2016 ROSA ESTEVEZ DIRECTOR OF MANUFACTURING OPERATIONS Ot Z87.19 PERSONAL HISTORY OF OTHER DISEASES [...] F31.9 BIPOLAR DISORDER, UNSPECIFIED 09/25/2016 GENARO, ANASTACIA AGENT Ot F41.9 ANXIETY DISORDER, UNSPECIFIED 09/25/2016 ANASTACIA LAM AGENT Ot F90.9 ATTENTION-DEFICIT HYPERACTIVITY DISORDER 09/25/2016 ANASTACIA LAMP Ot J45.909 UNSPECIFIED ASTHMA, UNCOMPLICATED 09/25/2016 ANASTACIA LAM AGENT Ot L02.411 CUTANEOUS ABSCESS OF RIGHT AXILLA 09/25/2016 ANASTACIA LAMP Ot Z77.22 CNTCT W AND EXPSR TO ENVIRON TOBACCO SMO 09/25/2016 ANASTACIA LAM RUTH Ot Z87.2 PERSONAL HISTORY OF DISEASES OF THE SKIN 09/25/2016 ANASTACIA LAM RUTH Ot Z91.5 PERSONAL HISTORY OF SELF-HARM 09/25/2016 ANASTACIA LAMP Ot Z98.890 OTHER SPECIFIED POSTPROCEDURAL STATES 11/29/2016 LEONARD CHIN DO Ot 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 11/29/2016 CHIN DO LEONARD Najera Ot V23.83 SUPRV HIGH-RISK PREG-YOUNG PRIMIGRAVIDA 11/29/2016 GENARO JURADO MD Ot 649.63 UTERINE SIZE DATE DISCREPANCY, ANTEPARTU 11/29/2016 GENARO JURADO MD Ot 656.53 POOR GRTH-ANTEPART 11/29/2016 JOSE ALEJANDRO TOWNSEND DIRECTOR OF MANUFACTURING OPERATIONS Ot 646.83 PREG COMPL NEC-ANTEPART 11/29/2016 JOSE ALEJANDRO TOWNSEND DIRECTOR OF MANUFACTURING OPERATIONS Ot 789.00 ABDOMINAL PAIN, UNSPECIFIED SITE 11/29/2016 Ot 656.53 POOR GRTH-ANTEPART 11/29/2016 ROSA ESTEVEZ DIRECTOR OF MANUFACTURING OPERATIONS Ot F31.9 BIPOLAR DISORDER, UNSPECIFIED 11/29/2016 ROSA ESTEVEZ DIRECTOR OF MANUFACTURING OPERATIONS Ot F41.9 ANXIETY DISORDER, UNSPECIFIED 11/29/2016 ROSA ESTEVEZ DIRECTOR OF MANUFACTURING OPERATIONS Ot F90.9 ATTENTION-DEFICIT HYPERACTIVITY DISORDER 11/29/2016 ROSA ESTEVEZ DIRECTOR OF MANUFACTURING OPERATIONS Ot K58.9 IRRITABLE BOWEL SYNDROME WITHOUT DIARRHE 11/29/2016 ROSA ESTEVEZ DIRECTOR OF MANUFACTURING OPERATIONS Ot R11.2 NAUSEA WITH VOMITING, UNSPECIFIED 11/29/2016 ROSA ESTEVEZ DIRECTOR OF MANUFACTURING OPERATIONS Ot Z91.5 PERSONAL HISTORY OF SELF-HARM 12/11/2016 CURTIS GOMEZ MD Ot F31.9 BIPOLAR DISORDER, UNSPECIFIED 12/11/2016 CURTIS GOMEZ MD Ot F41.9 ANXIETY DISORDER, UNSPECIFIED 12/11/2016 CURTIS GOMEZ MD Ot F90.9 ATTENTION-DEFICIT HYPERACTIVITY DISORDER 12/11/2016 CURTIS GOMEZ MD Ot J45.909 UNSPECIFIED ASTHMA, UNCOMPLICATED 12/11/2016 CURTIS GOMEZ MD Ot R10.31 RIGHT LOWER QUADRANT PAIN 12/11/2016 CURTIS GOMEZ MD Ot R10.32 LEFT LOWER [...] PERSONAL HISTORY OF SELF-HARM 12/27/2016 ANASTACIA LAM AGENT Ot F12.90 CANNABIS USE, UNSPECIFIED, UNCOMPLICATED 12/27/2016 GENARO ANASTACIA AGENT Ot F31.9 BIPOLAR DISORDER, UNSPECIFIED 12/27/2016 GENAROANASTACIA Ruffin AGENT Ot F41.9 ANXIETY DISORDER, UNSPECIFIED 12/27/2016 GENARO, ANASTACIA AGENT Ot F90.9 ATTENTION-DEFICIT HYPERACTIVITY DISORDER 12/27/2016 GENARO ANASTACIA AGENT Ot H66.91 OTITIS MEDIA, UNSPECIFIED, RIGHT EAR 12/27/2016 GENARO ANASTACIA AGENT Ot H92.01 OTALGIA, RIGHT EAR 12/27/2016 GENARO ANASTACIA AGENT Ot J02.9 ACUTE PHARYNGITIS, UNSPECIFIED 12/27/2016 GENARO ANASTACIA AGENT Ot J45.909 UNSPECIFIED ASTHMA, UNCOMPLICATED 12/27/2016 GENARO ANASTACIA AGENT Ot K58.9 IRRITABLE BOWEL SYNDROME WITHOUT DIARRHE 12/27/2016 GENARO, ANASTACIA AGENT Ot Z77.22 CNTCT W AND EXPSR TO ENVIRON TOBACCO SMO 12/27/2016 GENARO, ANASTACIA AGENT Ot Z91.5 PERSONAL HISTORY OF SELF-HARM 12/29/2016 GENARO, ANASTACIA AGENT Ot F12.90 CANNABIS USE, UNSPECIFIED, UNCOMPLICATED 12/29/2016 GENARO, ANASTACIA AGENT Ot F31.9 BIPOLAR DISORDER, UNSPECIFIED 12/29/2016 GENARO, ANASTACIA AGENT Ot F41.9 ANXIETY DISORDER, UNSPECIFIED 12/29/2016 GENARO, ANASTACIA AGENT Ot F90.9 ATTENTION-DEFICIT HYPERACTIVITY DISORDER 12/29/2016 GENARO, ANASTACIA AGENT Ot H66.91 OTITIS MEDIA, UNSPECIFIED, RIGHT EAR 12/29/2016 GENARO, ANASTACIA AGENT Ot H92.01 OTALGIA, RIGHT EAR 12/29/2016 GENARO, ANASTACIA AGENT Ot J02.9 ACUTE PHARYNGITIS, UNSPECIFIED 12/29/2016 GENARO, ANASTACIA AGENT Ot J45.909 UNSPECIFIED ASTHMA, UNCOMPLICATED 12/29/2016 GENARO, ANASTACIA AGENT Ot K58.9 IRRITABLE BOWEL SYNDROME WITHOUT DIARRHE 12/29/2016 GENARO, ANASTACIA AGENT Ot Z77.22 CNTCT W AND EXPSR TO ENVIRON TOBACCO SMO 12/29/2016 GENARO, ANASTACIA AGENT Ot Z91.5 PERSONAL HISTORY OF SELF-HARM 01/15/2017 [...] R10.84 GENERALIZED ABDOMINAL PAIN 01/15/2017 ANGIE DO, BREDNA K Ot R11.2 NAUSEA WITH VOMITING, UNSPECIFIED [...] DO Ot F31.9 BIPOLAR DISORDER, UNSPECIFIED 01/20/2017 JAMES ADAMS DOA K Ot F41.9 ANXIETY DISORDER, UNSPECIFIED 01/20/2017 BRENDA [...] DO Ot R11.2 NAUSEA WITH VOMITING, UNSPECIFIED 07/25/2017 ROSA ESTEVEZ APRN Ot F31.9 BIPOLAR DISORDER, UNSPECIFIED 07/25/2017 ROSA ESTEVEZ APRN Ot F41.9 ANXIETY DISORDER, UNSPECIFIED 07/25/2017 ROSA ESTEVEZ APRN Ot F90.9 ATTENTION-DEFICIT HYPERACTIVITY DISORDER 07/25/2017 ROSA ESTEVEZ APRN Ot J45.909 UNSPECIFIED ASTHMA, UNCOMPLICATED 07/25/2017 ROSA ESTEVEZ APRN Ot R11.2 NAUSEA WITH VOMITING, UNSPECIFIED 07/25/2017 ROSA ESTEVEZ APRN Ot Z77.22 CNTCT W AND EXPSR TO ENVIRON TOBACCO SMO 07/25/2017 ROSA ESTEVEZ DIRECTOR OF MANUFACTURING OPERATIONS Ot Z87.2 PERSONAL HISTORY OF DISEASES OF THE SKIN 07/25/2017 ROSA ESTEVEZ DIRECTOR OF MANUFACTURING OPERATIONS Ot Z91.5 PERSONAL HISTORY OF SELF-HARM 07/25/2017 ROSA ESTEVEZ DIRECTOR OF MANUFACTURING OPERATIONS Ot Z98.890 OTHER SPECIFIED POSTPROCEDURAL STATES 07/27/2017 ROSA ESTEVEZ DIRECTOR OF MANUFACTURING OPERATIONS Ot R11.2 NAUSEA WITH VOMITING, UNSPECIFIED 09/10/2017 GONZALO POLANCO, LEXX J Ot M54.9 DORSALGIA, UNSPECIFIED 09/10/2017 GONZALO POLANCO, LEXX J Ot R07.0 PAIN IN THROAT 09/10/2017 LAURA SÁNCHEZ MDUS J Ot R50.9 FEVER, UNSPECIFIED 09/12/2017 GONZALO POLANCO, LEXX J Ot M54.9 DORSALGIA, UNSPECIFIED 09/12/2017 GONZALO POLANCO, LEXX J Ot R07.0 PAIN IN THROAT 09/12/2017 GONZALO POLANCO, LEXX J Ot R50.9 FEVER, UNSPECIFIED 09/16/2017 GONZALO POLANCO, LEXX J Ot M54.9 DORSALGIA, UNSPECIFIED 09/16/2017 GONZALO POLANCO, LEXX J Ot R07.0 PAIN IN THROAT 09/16/2017 GONZALO POLANCO, LEXX J Ot R50.9 FEVER, UNSPECIFIED Procedures Code Description [place] [address] URINE TEST (IN- HOUSE) 11/02/2012 23157 UA LONG DIP 11/02/2012 37688 ROUTINE VENIPUNCTURE 11/14/2012 78295 UA OB DIP 11/14/2012 54349 TSH 11/14/2012 78439 CBC 11/14/2012 15875 SYPHILLIS-STATE LAB 11/14/2012 00561 HIV ANTIBODIES (RML) 11/14/2012 46547 RUBELLA ANTIBODY, IGG 11/14/2012 84213 ANTIBODY SCREEN (order) 11/14/2012 81377 BLOOD TYPE/Rh FACTOR 11/14/2012 98303 CULTURE UROGENITAL 11/14/2012 17508 CULTURE URINE 11/14/2012 96113 HEP B SURFACE ANTIGEN (STATE ) 11/14/2012 06198 GC/CHLAM PROBE (STATE) 11/14/2012 03897 TRICHOMONAS (IN-HOUSE) 11/14/2012 TETRA TETRA SCREEN 11/14/2012 98378 UA OB DIP 11/22/2012 80278 US OB - COMPLETE >14 WEEKS 11/26/2012 25663 UA OB DIP 12/12/2012 34383 UA OB DIP 2013 28514 GLUCOSE PINO 3 HOUR 01/19/2013 42867 PSYCH DIAGNOSTIC EVALUATION 01/19/2013 36342 ROUTINE VENIPUNCTURE 02/06/2013 95971 UA OB DIP 02/06/2013 33856 US OB - FOLLOW UP 02/06/2013 45668 GLUCOSE PINO 1 HOUR 02/06/2013 73148 GC/CHLAM URINE (STATE) 02/06/2013 79269 CBC 02/07/2013 94873 UA OB DIP 03/06/2013 99771 US OB - FOLLOW UP 03/07/2013 79071 PSYTX PT&/FAMILY 45 MINUTES 03/08/2013 14302 UA OB DIP 03/20/2013 12338 UA OB DIP 03/26/2013 16826 BIOPHYSICAL PROFILE () W/O NST 03/26/2013 45350 UA OB DIP 04/02/2013 95727 CULTURE GROUP B STREP VAG 04/02/2013 34923 PSYTX PT&/FAMILY 30 MINUTES 04/04/2013 84863 UA OB DIP 04/10/2013 16479 GLUCOSE FINGER STICK 04/10/2013 88610 UA OB DIP 04/18/2013 79249 PSYTX PT&/FAMILY 45 MINUTES 04/19/2013 73.4 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 04/23/2013 75.69 REPAIR OB LACERATION NEC 04/23/2013 62044 TEST, URINE (IN- HOUSE) 06/12/2013 55111 THERAPUTIC INJ SQ/IM 07/25/2013 J1050 DEPO PROVERA 07/25/2013 99031 TEST, URINE (IN- HOUSE) 07/25/2013 81199 URINALYSIS, AUTO W/SCOPE 11/29/2013 05246 URINE CULTURE/COLONY COUNT 11/29/2013 34239 X-RAY EXAM OF ABDOMEN 12/03/2013 Results Test Result Range UA - 11/29/13 00:00 PH 6.0 4.5-8.0 SG 1.025 1.003-1.035 UABILI NEGATIVE UABLD NEGATIVE UACOLOR YEL UAGLU NEGATIVE UAKET NEGATIVE UALEUK NEGATIVE UANIT NEGATIVE UAURO 0.2 0-0.2 CLARITY CL PROTEIN NEGATIVE UA WBC R05 UA RBC R05 SQUAMOUS EPITHELIAL CELLS FEW BACTERIA RARE GUME - 06/04/14 00:00 GUME FRIDAA Complete blood count (CBC) with automated white [...] identification in genital specimen by aerobe culture [id number] NRG Microscopic examination by GUME preparation - 06/15/16 01:03 Microscopic examination by GUME preparation TNP NRG Microscopic examination by wet preparation - 06/15/16 01:03 WET PREP RESULTS 06/15 01:35 BY C DONNA NRG Neisseria gonorrhoeae DNA detection by probe [...] 18:25 Bacteria identification in wound by culture [id number] NR FREE TEXT EXTERNAL THIS ISOLATE IS [...] 11.1 fL 7.5-12.5 ABSOLUTE NEUTROPHILS 3855 cells/uL 2197-2109 ABSOLUTE LYMPHOCYTES 1598 cells/uL 850-3900 ABSOLUTE MONOCYTES [...] medMATCH Buprenorphine CONSISTENT NRG Ethyl Glucuronide (ETG) 40643 ng/mL <500 medMATCH ETG INCONSISTENT NRG Ethyl [...] Status Pt. Type Provider Facility Loc./Unit Complaint [id number] 09/10/2014 15:31:00 09/10/2014 23:59:59 CLS Outpatient [facility] RAD [id number] 06/04/2014 17:36:00 06/04/2014 17:36:00 DIS Outpatient [facility] PANACE [id number] 02/19/2014 16:25:00 02/19/2014 17:20:00 DIS Inpatient HANNA TAI [facility] OBS [id number] 12/03/2013 14:36:00 12/03/2013 14:36:00 DIS Outpatient HANNA TAI [facility] RAD [id number] 11/29/2013 17:45:00 11/29/2013 17:45:00 DIS Outpatient JACY CORREIA [facility] LAB [id number] 01/19/2014 00:00:00 Document Registration [id number] 01/19/2013 00:00:00 Document Registration [email or web address] 06/13/2014 20:11:17 ACT Document Registration [id number] 09/10/2017 17:49:00 09/10/2017 18:15:00 DIS Outpatient LEXX SÁNCHEZ MD [facility] FEVER,BACK PAIN,THROAT PAIN [id number] 07/25/2017 16:37:00 07/25/2017 17:51:00 DIS Emergency ROSA ESTEVEZ APRN [facility] ER VOMITING [id number] 03/09/2017 10:00:00 03/09/2017 23:59:59 CLS Preadmit NIKOS AVALOS DO [facility] CARD NAUSEA AND VOMITTING [id number] 02/23/2017 08:56:00 02/23/2017 23:59:59 CLS Outpatient KENNY DURAN DO [facility] RAD NAUSEA AND VOMITTING [id number] 01/25/2017 07:27:00 01/25/2017 23:59:59 CLS Preadmit KENNY DURAN DO [facility] CARD NAUSEA AND VOMITTING [id number] 01/14/2017 22:35:00 01/15/2017 00:25:00 DIS Emergency BRENDA ADAMS DO [facility] ER VOMITING [id number] 12/27/2016 20:31:00 12/27/2016 21:26:00 DIS Emergency ANASTACIA LAM [facility] ER SORE THROAT [id number] 12/11/2016 16:29:00 12/11/2016 18:07:00 DIS Emergency CURTIS GOMEZ MD [facility] ER ABD PAIN/N/V [id number] 11/29/2016 18:07:00 11/29/2016 20:29:00 DIS Emergency ROSA ESTEVEZ APRN [facility] ER ABDOMINAL PAIN,VOMITING [id number] 09/25/2016 17:11:00 09/25/2016 18:47:00 DIS Emergency ANASTACIA LAM [facility] ER R ARMPIT LUMP/PAIN [id number] 08/22/2016 20:41:00 08/22/2016 22:00:00 DIS Emergency ANGIE DOBRENDA [facility] ER FEVER/STOMACH PAIN [id number] 08/06/2016 21:44:00 08/07/2016 00:03:00 DIS Emergency ANGIE DOBRENDA [facility] R SIDE AND BACK PAIN [id number] 08/01/2016 14:39:00 08/01/2016 16:08:00 DIS Emergency ROSA ESTEVEZ APRN [facility] RUQ PAIN [id number] 07/15/2016 00:30:00 07/15/2016 01:59:00 DIS Emergency ANGIE DOBRENDA [facility] ABD PAIN [id number] 06/14/2016 22:59:00 06/15/2016 02:08:00 DIS Emergency GEORGINA DIAZ MD [facility] VOMITING [id number] 03/24/2016 09:43:00 03/24/2016 10:46:00 DIS Emergency ROSA ESTEVEZ APRN [facility] POSS INSECT BITE LEFT EYE SWOLLEN/KNOTS ON FACE [id number] 02/23/2016 12:54:00 02/23/2016 14:09:00 DIS Emergency CURTIS GOMEZ MD [facility] FACIAL SWELLING VOMITING [id number] 01/19/2016 20:02:00 01/19/2016 21:20:00 DIS Emergency ANGIE PICHARDO BRENDA Dania [facility] BREASTS SWELLING/LEAKING FLUID [id number] 10/15/2015 19:25:00 10/15/2015 21:19:00 DIS Emergency CURTIS GOMEZ MD [facility] PSYCH EVAL [id number] 10/08/2015 18:34:00 10/08/2015 19:43:00 DIS Emergency JOE POLANCO, GEORGINA Sierra [facility] ANXIETY [id number] 09/23/2015 16:37:00 09/23/2015 18:22:00 DIS Emergency ROSA ESTEVEZ DIRECTOR OF MANUFACTURING OPERATIONS [facility] LEFT ARM INJ [id number] 08/08/2015 15:14:00 08/08/2015 17:21:00 DIS Emergency NEVILLE FLOWERS [facility] STOMACH PAIN [id number] 07/12/2015 18:06:00 07/12/2015 20:33:00 DIS Emergency ROSA ESTEVEZ DIRECTOR OF MANUFACTURING OPERATIONS [facility] VOMITING/FEELING HOT/ABD PAIN [id number] 06/13/2014 20:10:00 06/13/2014 21:27:00 DIS Emergency ANGIE BRENDA [facility] LT ANKLE PAIN [id number] 04/09/2013 15:36:00 07/08/2013 00:01:00 DIS Outpatient GENARO JURADO MD [facility] RAD POOR GROWTH [id number] 06/01/2013 21:35:00 06/02/2013 00:23:00 DIS Emergency GEORGINA DIAZ MD [facility] ER DIZZY;HEADACHE [id number] 04/23/2013 20:26:00 04/25/2013 11:25:00 DIS Inpatient GENARO JURADO MD [facility] WS INDUCTION [id number] 04/04/2013 18:02:00 04/04/2013 18:48:00 DIS Outpatient GENARO JURADO MD [facility] WSo VAGINAL BLEEDING [id number] 03/24/2013 19:59:00 03/24/2013 21:55:00 DIS Outpatient GENARO JURADO MD [facility] WSo CONTRACTIONS [id number] 03/22/2013 13:00:00 03/22/2013 23:59:59 CLS Outpatient GENARO JURADO MD [facility] RAD F/U GROWTH [id number] 03/14/2013 11:48:00 03/14/2013 23:59:59 CLS Outpatient JOSE ALEJANDRO TOWNSEND APRN [facility] LAB DIABETES SCREENING [id number] 02/27/2013 10:19:00 02/27/2013 12:23:00 DIS Outpatient GENARO JURADO MD [facility] WSo LOW ABD PAIN [id number] 02/15/2013 13:33:00 02/15/2013 23:59:59 CLS Outpatient GENARO JURADO MD [facility] RAD DECREASED FUNDAL HEIGHT [id number] 02/15/2013 01:11:00 02/15/2013 03:45:00 DIS Outpatient GENARO JURADO MD [facility] WSo ABD PAIN [id number] 11/30/2012 12:12:00 11/30/2012 23:59:59 CLS Outpatient LEONARD CHIN DO [facility] RAD ABNORMAL TETRA SCREEN FOR NEURAL TUBE DEFECT [id number] 07/09/2013 15:15:00 Document Registration [id number] 09/19/2013 13:17:00 09/19/2013 23:59:59 CLS Outpatient ADDISON ADAMS DDS [id number] 07/25/2013 16:14:00 07/25/2013 23:59:59 CLS Outpatient LEONARD CHIN DO [id number] 06/12/2013 15:36:00 06/12/2013 23:59:59 CLS Outpatient JOSE ALEJANDRO TOWNSEND APRN [id number] 06/12/2013 15:36:00 06/12/2013 23:59:59 CLS Outpatient JOSE ALEJANDRO TOWNSEND APRN [id number] 05/27/2013 10:47:00 05/27/2013 23:59:59 CLS Outpatient GENARO JURADO MD [id number] 04/19/2013 12:45:00 04/19/2013 23:59:59 CLS Outpatient RICHARDS KIRKMORRIS Alcides [id number] 04/18/2013 15:34:00 04/18/2013 23:59:59 CLS Outpatient GENARO JURADO MD [id number] 04/18/2013 15:34:00 04/18/2013 23:59:59 CLS Outpatient GENARO JURADO MD [id number] 04/10/2013 15:35:00 04/10/2013 23:59:59 CLS Outpatient GENARO JURADO MD [id number] 04/04/2013 09:45:00 04/04/2013 23:59:59 CLS Outpatient MORRIS PATHAK [id number] 04/02/2013 15:49:00 04/02/2013 23:59:59 CLS Outpatient GENARO JURADO MD [id number] 03/26/2013 12:39:00 03/26/2013 23:59:59 CLS Outpatient GENARO JURADO MD [id number] 03/20/2013 15:19:00 03/20/2013 23:59:59 CLS Outpatient GENARO JURADO MD [id number] 03/08/2013 13:10:00 03/08/2013 23:59:59 CLS Outpatient MORRIS PATHAK [id number] 03/06/2013 16:00:00 03/06/2013 23:59:59 CLS Outpatient GENARO JURADO MD [id number] 02/06/2013 15:57:00 02/06/2013 23:59:59 CLS Outpatient GENARO JURADO MD [id number] 01/23/2013 13:27:00 01/23/2013 23:59:59 CLS Outpatient JERRI JACKSON APRN [id number] 2013 16:09:00 2013 23:59:59 CLS Outpatient LEONARD CHIN DO [id number] 2013 16:09:00 2013 23:59:59 CLS Outpatient GENARO JURADO MD [id number] 12/12/2012 15:59:00 12/12/2012 23:59:59 CLS Outpatient LEONARD CHIN DO [id number] 11/22/2012 10:40:00 11/22/2012 23:59:59 CLS Outpatient LEONARD CHIN DO [id number] 11/14/2012 09:39:00 11/14/2012 23:59:59 CLS Outpatient LEONARD CHIN DO [id number] 11/02/2012 10:39:00 11/02/2012 23:59:59 CLS Outpatient JERRI JACKSON APRN [id number] 11/07/2012 10:55:00 Document Registration [id number] 11/02/2012 10:39:00 Document Registration [id number] 11/02/2015 18:06:00 Document Registration [email or web address] 09/11/2014 01:53:06 ACT Document Registration [id number] 01/07/2015 08:00:00 01/07/2015 23:59:59 CLS Outpatient [id number] 07/06/2015 04:44:56 Document Registration [id number] 07/06/2015 04:38:06 Document Registration [id number] 07/06/2015 04:29:06 Document Registration [id number] 07/06/2015 04:29:04 Document Registration [id number] 06/08/2015 10:02:39 Document Registration [id number] 05/11/2015 04:31:13 Document Registration [id number] 05/07/2015 13:50:42 Document Registration [id number] 05/07/2015 13:49:06 Document Registration [id number] 05/07/2015 13:48:01 Document Registration [id number] 05/07/2015 13:45:53 Document Registration [id number] 04/22/2015 04:28:54 Document Registration [id number] 04/09/2015 14:39:10 Document Registration [id number] 04/09/2015 14:38:37 Document Registration [id number] 04/09/2015 14:38:35 Document Registration [id number] 04/09/2015 14:38:32 Document Registration [id number] 04/09/2015 14:38:30 Document Registration [id number] 04/09/2015 14:38:02 Document Registration [id number] 04/09/2015 14:37:47 Document Registration [id number] 11/04/2016 11:08:00 Document Registration [id number] 09/19/2017 09:20:00 09/19/2017 23:59:59 [facility] [id number] 07/11/2017 13:20:00 Document Registration [id number] 04/04/2017 11:00:00 Document Registration [id number] 12/29/2016 11:00:00 Document Registration [id number] 11/01/2016 11:45:00 Document Registration
[2017-12-03 14:32] LABS: BILIRUBIN,URINE 1+ (NEGATIVE); CLARITY,URINE VERY CLOUDY; COLOR,URINE AMBER; GLUCOSE, URINE (UA) NEGATIVE (NEGATIVE); KETONES,URINE 1+ (NEGATIVE); LEUKOCYTE ESTERASE ,URINE 3+ (NEGATIVE); NITRITE,URINE POSITIVE (NEGATIVE); PH,URINE 5 (5-9); PROTEIN,URINE 3+ (NEGATIVE); UROBILINOGEN,URINE 4 MG/DL (NORMAL)
--- NOTE | 2017-12-03 14:38 | ED GU-Female ---
General Chief Complaint: -Female Stated Complaint: HEAVY VAGINAL BLEEDING Nursing Triage Note: TO ROOM REPORTS ONSET OF VAG BLEEDING TODAY HER PEROID IS 2 WEEKS EARLY. CONCERN BECAUSE SHE THINKS IT IS HEAVIER THAN USUAL PEROID Nursing Sepsis Screen: No Definite Risk Source: patient Exam Limitations: no limitations History of Present Illness Date Seen by Provider: Dec 03, 2017 Time Seen by Provider: 14:03 Initial Comments Patient is a 22-year-old female who presents to the emergency room with complaints of vaginal bleeding that started today upon waking 20 minutes prior to arrival. She is concerned because she thinks with heavier than her normal menstrual cycle. She also states that she was not prepared for her normal menstrual cycle. So she did not have a tampon in place. Reports low back cramping and lower pelvic cramping but this is usual for her normal menstrual cycles. Timing/Duration: just prior to arrival Severity/Quality: cramping Location: vaginal Radiation: back Allergies and Home Medications Allergies Coded Allergies: No Known Drug Allergies (Unverified , 08/06/16) Home Medications Cephalexin 500 Mg Capsule, 500 MG PO BID Prescribed by: CRISTINA OLIVIER on 12/03/17 1501 Phenazopyridine HCl 100 Mg Tablet, 100 MG PO TID Prescribed by: CRISTINA OLIVIER on 12/03/17 1501 Patient Home Medication List Home Medication List Reviewed: Yes Review of Systems Review of Systems Constitutional: see HPI; No chills, No fever Genitourinary: see HPI, other (vaginal bleeding ) : No LMP: Nov 16, 2017 Musculoskeletal: see HPI, back pain (low back pain) All Other Systemes Reviewed Negative Unless Noted: Yes Past Vngucbj-Emonyv-Tlxreb Hx Past Med/Social Hx: Reviewed Nursing Past Med/Soc Hx Patient Social History Alcohol Use: Denies Use Recreational Drug Use: No Drug of Choice: MARIJUANA Smoking Status: Never a Smoker 2nd Hand Smoke Exposure: Yes Recent Foreign Travel: No Contact w/Someone Who Travel: No Recent Infectious Disease Expo: No Recent Hopitalizations: No Immunizations Up To Date Tetanus Booster (TDap): Less than 5yrs PED Vaccines UTD: No Date of Influenza Vaccine: Dec 21, 2012 Seasonal Allergies Seasonal Allergies: Yes Past Medical History Surgeries: Yes (HERNIA REPAIR ; COLONOSCOPY 2014 IN CODY) Abdominal Respiratory: Yes Asthma Currently Using CPAP: No Currently Using BIPAP: No Cardiac: No Neurological: No Reproductive Disorders: No Female Reproductive Disorders: Denies Sexually Transmitted Disease: No HIV/AIDS: No Genitourinary: Yes Bladder Infection Gastrointestinal: Yes (MESENTERIC ADENITIS. CHRONIC ABDOMINAL PAIN, NAUSEA/ VOMITING COMPLAINTS) Irritable Bowel Musculoskeletal: No Endocrine: No HEENT: No Cancer: No Psychosocial: Yes ADD/ADHD, Anxiety, Suicide Attempts, Bipolar, Depression Integumentary: Yes Eczema Blood Disorders: No Adverse Reaction/Blood Tranf: No Family Medical History Reviewed Nursing Family Hx No Family History of: Alcoholism Cancer Chest pain Congenital heart disease Congestive heart failure Family history: Arthritis Family history: Asthma Family history: Breast disease Family history: Cardiovascular disease Family history: Coronary thrombosis Family history: Diabetes mellitus Family history: Hypertension Family history: Thyroid disorder Headache History of - anemia History of - respiratory disease History of drug abuse Human immunodeficiency virus (HIV) seropositivity Hypercholesterolemia Infertile Kidney disease Myocardial infarction Psychotic disorder Seizure disorder Stroke Tuberculosis Visual impairment Physical Exam Vital Signs Vital Signs - First Documented 12/03/17 12/03/17 14:03 15:10 Temp 98.0 Pulse 90 Resp 18 B/P (MAP) 120/91 (101) Pulse Ox 100 O2 Delivery Room Air Capillary Refill : Less Than 3 Seconds Height, Weight, BMI Height: 5'2.00" Weight: 130lbs. 4.0oz. 58.051286ix; 21.09 BMI Method:Stated General Appearance: WD/WN, no apparent distress HEENT: PERRL/EOMI, normal ENT inspection Cardiovascular: normal peripheral pulses, regular rate, rhythm, no edema, no gallop, no JVD, no murmur Respiratory: chest non-tender, lungs clear, normal breath sounds, no respiratory distress, no accessory muscle use Gastrointestinal: normal bowel sounds, soft, no organomegaly, no pulsatile mass , tenderness (suprapubic) Back: normal inspection, no CVA tenderness, no vertebral tenderness Extremities: normal capillary refill Neurologic/Psychiatric: alert, normal mood/affect, oriented x 3 Skin: normal color, warm/dry Progress/Results/Core Measures Suspected Sepsis Recent Fever Within 48 Hours: No Infection Criteria Present: None New/Unexplained Altered Menta: No Sepsis Screen: No Definite Risk SIRS Temperature:98.0 Pulse: 90 Respiratory Rate: Blood Pressure 120 /91 Mean: 101 Results/Orders Lab Results My Orders Medications Given in ED Vital Signs/I&O Capillary Refill : Less Than 3 Seconds Blood Pressure Mean: 101 Progress Note : Time: 14:50 Progress Note I have seen and evaluated the patient. I have informed her of normal imaging studies. I believe that she is just having an irregular menstrual cycle due to no heavy bleeding, having not saturated more that one pad. She agrees with plan of care, plans for discharge, return precautions were given. Voices no questions or concerns. Departure Impression Primary Impression: Urinary tract infection Additional Impression: Irregular menstrual cycle Disposition: HOME, SELF-CARE Condition: Stable/Unchanged Departure-Patient Inst. Decision time for Depature: 14:59 Referrals: [facility] (PCP/Family) Primary Care Physician Patient Instructions: Urinary Tract Infection, Adult (DC) Add. Discharge Instructions: Take medications as directed. May use ibuprofen and Tylenol as directed the bottle for pain and fever. Drink lots of clear liquids like water. Follow-up with [facility] within 1 week for recheck. Return back to the emergency room for any worsening symptoms or concerns as needed. All discharge instructions reviewed with patient and/or family. Voiced understanding. Scripts Phenazopyridine HCl (Pyridium) 100 Mg Tablet 100 MG PO TID for 2 Days, #6 TAB Prov: CRISTINA OLIVIER 12/03/17 Cephalexin (Keflex) 500 Mg Capsule 500 MG PO BID for 7 Days, #14 CAP Prov: CRISTINA OLIVIER 12/03/17 CRISTINA OLIVIER Dec 03, 2017 14:38
[2017-12-03 14:41] LABS: BACTERIA,URINE MODERATE /HPF; RBC,URINE 50-100 /HPF; SQUAMOUS EPITHELIAL CELL,UR >50 /HPF
[2017-12-03 14:42] LABS: ALANINE AMINOTRANSFERASE 17 U/L (0-55); ALBUMIN 4.1 GM/DL (3.2-4.5); ALKALINE PHOSPHATASE 80 U/L (40-136); BILIRUBIN,TOTAL 0.3 MG/DL (0.1-1.0); BUN/CREATININE RATIO 14; CALCIUM 9.1 MG/DL (8.5-10.1); CARBON DIOXIDE 22 MMOL/L (21-32); CHLORIDE 107 MMOL/L (98-107); CREATININE SERUM 0.74 MG/DL (0.60-1.30); GFR ESTIMATED > 60; GLUCOSE 89 MG/DL (70-105); POTASSIUM 3.7 MMOL/L (3.6-5.0); SODIUM 140 MMOL/L (135-145); TOTAL PROTEIN 7.5 GM/DL (6.4-8.2)
[2017-12-03] MEDS ORDERED: CEPH-507 PO (15:01)
[2017-12-03] MEDS ORDERED: PHEN-639 PO (15:01)
[2017-12-03 15:10] VITALS: BP 120/91
[2017-12-03] MEDS ORDERED: IBUPROFEN 800 MG (MOTRIN) TAB PO ONE (15:15)
== END 2017-12-03 15:10 | disposition home or self-care (01) ==
LOC: EDUNIT# 13:57 → ER 13:58
DX: N39.0 Urinary tract infection, site not specified (principal); N92.6 Irregular menstruation, unspecified; J45.909 Unspecified asthma, uncomplicated; F90.9 Attention-deficit hyperactivity disorder, unspecified type; F41.9 Anxiety disorder, unspecified; F31.9 Bipolar disorder, unspecified; F12.10 Cannabis abuse, uncomplicated; Z87.448 Personal history of other diseases of urinary system; Z77.22 Contact with and (suspected) exposure to environmental tobacco smoke (acute) (chronic); Z91.5 Personal history of self-harm; Z98.890 Other specified postprocedural states
CPT/HCPCS: 36415; 80053; 81000; 84703; 85025; 87088

== ENCOUNTER 2017-12-07 19:16 | Emergency (ER) | payer MEDICAID ==
[~2017-12-07] VITALS: Ht 157.5 cm; Wt 59.0 kg
[~2017-12-07 19:16] MED LIST changes: +MED FOR ADHD; +PHEN-639 PO
[2017-12-07 19:42] LABS: BASOPHILS # (AUTO) 0.1 10^3/uL (0.0-0.1); BASOPHILS % (AUTO) 1 % (0-10); EOSINOPHILS # (AUTO) 0.1 10^3/uL (0.0-0.3); EOSINOPHILS % (AUTO) 1 % (0-10); HEMATOCRIT 43 % (35-52); HEMOGLOBIN 14.3 G/DL (11.5-16.0); LYMPHOCYTES # (AUTO) 1.9 X 10^3 (1.0-4.0); LYMPHOCYTES % (AUTO) 26 % (12-44); MEAN CORPUSCULAR HEMOGLOBIN 28 PG (25-34); MEAN CORPUSCULAR HGB CONC 33 G/DL (32-36); MEAN CORPUSCULAR VOLUME 83 FL (80-99); MEAN PLATELET VOLUME 10.7 FL (7.4-10.4); MONOCYTES # (AUTO) 0.7 X 10^3 (0.0-1.0); MONOCYTES % (AUTO) 9 % (0-12); NEUTROPHILS # (AUTO) 4.8 X 10^3 (1.8-7.8); NEUTROPHILS % (AUTO) 63 % (42-75); PLATELET COUNT 299 10^3/uL (130-400); RED BLOOD COUNT 5.15 10^6/uL (4.35-5.85); RED CELL DISTRIBUTION WIDTH 14.8 % (10.0-14.5); WHITE BLOOD COUNT 7.6 10^3/uL (4.3-11.0)
--- OUTSIDE RECORDS SUMMARY | 2017-12-07 19:43 | XMS REPORT | Continuity of Care Document ---
Demographics x Preferred Language Unknown Marital Status Unknown Jainism Affiliation Unknown Race Unknown Ethnic Group Unknown Author Author [facility] Organization [facility] Address Unknown Phone Unavailable Allergies Active Description Code Type Severity Reaction Onset Reported/Identified Relationship to Patient Clinical Status Yes No Known Drug Allergies [id number] ND N/A N/A Confirmed or Verified Yes No Known Drug Allergies [id number] Drug Allergy Unknown N/A 08/06/2016 Medications Medication [...] MD V72.42 TEST POSITIVE RESULT 11/02/2012 RAJOTTE BACKWINDER, JERRI A 626.0 AMENORRHEA 11/02/2012 RICOE BACKWINDER, JERRI A V72.42 TEST POSITIVE RESULT 11/02/2012 GENARO JURADO MD N 626.0 AMENORRHEA 11/02/2012 GENARO JURADO MD V72.42 TEST POSITIVE RESULT 11/02/2012 ELSY PICHARDO, LEONARD K 626.0 AMENORRHEA 11/02/2012 LORAINE CHIN DOA K V72.42 TEST POSITIVE RESULT 11/02/2012 GENARO JURADO MD N 626.0 AMENORRHEA 11/02/2012 GENARO JURADO MD V72.42 TEST POSITIVE RESULT 11/02/2012 [facility], M[place]RIS A 626.0 AMENORRHEA 11/02/2012 [facility], [place] Mcgrath V72.42 TEST POSITIVE RESULT 11/02/2012 GENARO JURADO MD N 626.0 AMENORRHEA 11/02/2012 GENARO JURADO MD V72.42 TEST POSITIVE RESULT 11/02/2012 GENARO JURADO MD N 626.0 AMENORRHEA 11/02/2012 GENARO JURADO MD V72.42 TEST POSITIVE RESULT 11/02/2012 GENARO JURADO MD N 626.0 AMENORRHEA 11/02/2012 GENARO JURADO MD V72.42 TEST POSITIVE RESULT 11/02/2012 [facility], [place] A 626.0 AMENORRHEA 11/02/2012 [facility], [place] Mcgrath V72.42 TEST POSITIVE RESULT 11/02/2012 GENARO JURADO MD N 626.0 AMENORRHEA 11/02/2012 GENARO JURADO MD V72.42 TEST POSITIVE RESULT 11/02/2012 RHIANNON POLANCO, GENARO N 626.0 AMENORRHEA 11/02/2012 GENARO JURADO MD V72.42 TEST POSITIVE RESULT 11/02/2012 [facility], [place] A 626.0 AMENORRHEA 11/02/2012 [facility], [place] A V72.42 TEST POSITIVE RESULT 11/02/2012 RHIANNON POLANCO, GENARO N 626.0 AMENORRHEA 11/02/2012 GENARO JURADO MD V72.42 TEST POSITIVE RESULT 11/02/2012 RHIANNON POLANCO, GENARO N 626.0 AMENORRHEA 11/02/2012 GENARO JURADO MD V72.42 TEST POSITIVE RESULT 11/02/2012 CARY BACKWINDER, JOSE ALEJANDRO A 626.0 AMENORRHEA 11/02/2012 CARY BACKWINDER, JOSE ALEJANDRO A V72.42 TEST POSITIVE RESULT 11/02/2012 CARY BACKWINDER, JOSE ALEJADNRO A 626.0 AMENORRHEA 11/02/2012 CARY BACKWINDER, JOSE ALEJANDRO A V72.42 TEST POSITIVE RESULT 11/02/2012 LEONARD CHIN DO K 626.0 AMENORRHEA 11/02/2012 LEONARD CHIN DO K V72.42 TEST POSITIVE RESULT 11/02/2012 [facility] DDS, ADDISON B 626.0 AMENORRHEA 11/02/2012 [facility] DDS, ADDISON B V72.42 TEST POSITIVE RESULT [...] SUPERVISION OF HIGH-RISK WITH YOUNG PRIMIGRAVIDA 11/07/2012 [facility] V23.83 SUPERVISION OF HIGH-RISK WITH YOUNG PRIMIGRAVIDA 11/07/2012 GENARO JURADO MD V23.83 SUPERVISION OF HIGH-RISK WITH YOUNG PRIMIGRAVIDA 11/07/2012 GENARO JURADO MD V23.83 SUPERVISION OF HIGH-RISK WITH YOUNG PRIMIGRAVIDA 11/07/2012 GENARO JURADO MD V23.83 SUPERVISION OF HIGH-RISK WITH YOUNG PRIMIGRAVIDA 11/07/2012 [facility] V23.83 SUPERVISION OF HIGH-RISK WITH YOUNG PRIMIGRAVIDA 11/07/2012 GENARO JURADO MD V23.83 SUPERVISION OF HIGH-RISK WITH YOUNG PRIMIGRAVIDA 11/07/2012 GENARO JURADO MD V23.83 SUPERVISION OF HIGH-RISK WITH YOUNG PRIMIGRAVIDA 11/07/2012 [facility] V23.83 SUPERVISION OF HIGH-RISK WITH YOUNG PRIMIGRAVIDA [...] K V23.9 , HIGH-RISK (UNSPEC) 11/14/2012 MICHAELOTTE BACKWINDER, JERRI A V23.9 , HIGH-RISK (UNSPEC) 11/14/2012 ELSY PICHARDO, LEONARD K V23.9 , HIGH-RISK (UNSPEC) 11/14/2012 ELSY PICHARDO, LEONARD K V23.9 , HIGH-RISK (UNSPEC) 11/14/2012 GENARO JURADO MD N V23.9 , HIGH-RISK (UNSPEC) 11/14/2012 MANUEL BACKWINDER, JERRI A V23.9 , HIGH-RISK (UNSPEC) 11/14/2012 GENARO JURADO MD V23.9 , HIGH-RISK (UNSPEC) 11/14/2012 ELSY PICHARDO, LEONARD K V23.9 , HIGH-RISK (UNSPEC) 11/14/2012 GENARO JURADO MD N V23.9 , HIGH-RISK (UNSPEC) 11/14/2012 [facility] [place] A V23.9 , HIGH-RISK (UNSPEC) 11/14/2012 GENARO JURADO MD N V23.9 , HIGH-RISK (UNSPEC) 11/14/2012 GENARO JURADO MD N V23.9 , HIGH-RISK (UNSPEC) 11/14/2012 GENARO JURADO MD N V23.9 , HIGH-RISK (UNSPEC) 11/14/2012 [facility] [place] A V23.9 , HIGH-RISK (UNSPEC) 11/14/2012 GENARO JURADO MD N V23.9 , HIGH-RISK (UNSPEC) 11/14/2012 GENARO JURADO MD N V23.9 , HIGH-RISK (UNSPEC) 11/14/2012 [facility] [place] A V23.9 , HIGH-RISK (UNSPEC) 11/14/2012 GENARO JURADO MD N V23.9 , HIGH-RISK (UNSPEC) 11/14/2012 GENARO JURADO MD N V23.9 , HIGH-RISK (UNSPEC) 11/14/2012 CARY BACKWINDER, JOSE ALEJANDRO A V23.9 , HIGH-RISK (UNSPEC) [...] DERMATITIS AND OTHER ECZEMA UNSPECIFIED CAUSE 11/22/2012 [facility] [place] Mcgrath 530.81 GERD 11/22/2012 [facility] A 655.03 ABNORMAL TETRA SCREEN (NTD) 11/22/2012 [facility] Alcides 692.9 CONTACT DERMATITIS AND OTHER ECZEMA [...] DERMATITIS AND OTHER ECZEMA UNSPECIFIED CAUSE 11/22/2012 [facility] [place] Mcgrath 530.81 GERD 11/22/2012 [facility] Mcgrath 655.03 ABNORMAL TETRA SCREEN (NTD) 11/22/2012 [facility] [place] Mcgrath 692.9 CONTACT DERMATITIS AND OTHER [...] DERMATITIS AND OTHER ECZEMA UNSPECIFIED CAUSE 11/22/2012 [facility] [place] Mcgrath 530.81 GERD 11/22/2012 [facility] [place] Mcgrath 655.03 ABNORMAL TETRA SCREEN (NTD) 11/22/2012 [facility] [place] A 692.9 CONTACT DERMATITIS AND OTHER [...] GENARO JURADO MD V04.81 FLU SHOT 2013 [facility], [place] A V04.81 FLU SHOT 2013 RHIANNON POLANCO, GENARO N V04.81 FLU SHOT 2013 RHIANNON POLANCO, GENARO N V04.81 FLU SHOT 2013 RHIANNON POLANCO, GENARO N V04.81 FLU SHOT 2013 [facility] [place] A V04.81 FLU SHOT 2013 RHIANNON POLANCO, GENARO N V04.81 FLU SHOT 2013 RHIANNON POLANCO, GENARO N V04.81 FLU SHOT 2013 [facility] [place] A V04.81 FLU SHOT 2013 RHIANNON POLANCO, GENARO N V04.81 FLU SHOT 2013 RHIANNON POLANCO, GENARO N V04.81 FLU SHOT 2013 CARY BACKWINDER, JOSE ALEJANDRO A V04.81 FLU SHOT 2013 CARY BACKWINDER, JOSE ALEJANDRO A V04.81 FLU SHOT 2013 [...] 01/23/2013 GENARO JURADO MD V22.2 INCIDENTAL 01/23/2013 [facility] [place] Mcgrath 477.9 RHINITIS 01/23/2013 [facility] [place] Mcgrath V22.2 INCIDENTAL 01/23/2013 GENARO JURADO MD 477.9 RHINITIS 01/23/2013 GENARO JURADO MD N V22.2 INCIDENTAL 01/23/2013 GENARO JURADO MD 477.9 RHINITIS 01/23/2013 RHIANNON POLANCO, GENARO N V22.2 INCIDENTAL 01/23/2013 GENARO JURADO MD N 477.9 RHINITIS 01/23/2013 RHIANNON POLANCO, GENARO N V22.2 INCIDENTAL 01/23/2013 [facility], [place] A 477.9 RHINITIS 01/23/2013 [facility] [place] A V22.2 INCIDENTAL 01/23/2013 GENARO JURADO MD N 477.9 RHINITIS 01/23/2013 RHIANNON POLANCO, GENARO N V22.2 INCIDENTAL 01/23/2013 RHIANNON POLANCO, GENARO N 477.9 RHINITIS 01/23/2013 GENARO JURADO MD N V22.2 INCIDENTAL 01/23/2013 [facility], [place] A 477.9 RHINITIS 01/23/2013 [facility] [place] A V22.2 INCIDENTAL 01/23/2013 GENARO JURADO MD N 477.9 RHINITIS 01/23/2013 GENARO JURADO MD N V22.2 INCIDENTAL 01/23/2013 GENARO JURADO MD N 477.9 RHINITIS 01/23/2013 RHIANNON POLANCO, GENARO N V22.2 INCIDENTAL 01/23/2013 CARY BACKWINDER, JOSE ALEJANDRO A 477.9 RHINITIS 01/23/2013 CARY BACKWINDER, JOSE ALEJANDRO A V22.2 INCIDENTAL 01/23/2013 CARY BACKWINDER, JOSE ALEJANDRO A 477.9 RHINITIS 01/23/2013 CARY BACKWINDER, JOSE ALEJANDRO A V22.2 INCIDENTAL 01/23/2013 CHIN DO, LEONARD K 477.9 RHINITIS 01/23/2013 CHIN DO LEONARD K V22.2 INCIDENTAL 01/23/2013 ANGIE DDS, ADDISON B 477.9 RHINITIS 01/23/2013 ANGIE DDS, ADDISON B V22.2 INCIDENTAL 01/28/2013 LORAINE CHIN DOA K 296.90 MOOD DISORDER NOS 01/28/2013 GENARO JURADO MD 296.90 MOOD DISORDER NOS 01/28/2013 [facility] [place] Mcgrath 296.90 MOOD DISORDER NOS 01/28/2013 GENARO JURADO MD 296.90 MOOD DISORDER NOS 01/28/2013 ANISHA JURADO MDY N 296.90 MOOD DISORDER NOS 01/28/2013 ANISHA JURADO MDY N 296.90 MOOD DISORDER NOS 01/28/2013 [facility] [place] A 296.90 MOOD DISORDER NOS 01/28/2013 RHIANNON POLANCO GENARO N 296.90 MOOD DISORDER NOS 01/28/2013 RHIANNON POLANCO GENARO N 296.90 MOOD DISORDER NOS 01/28/2013 [facility] [place] A 296.90 MOOD DISORDER NOS 01/28/2013 [...] GENARO N 296.90 MOOD DISORDER NOS 02/05/2013 [facility], [place] A 296.90 MOOD DISORDER NOS 02/05/2013 RHIANNON POLANCO GENARO N 296.90 MOOD DISORDER NOS 02/05/2013 RHIANONN POLANCO GENARO N 296.90 MOOD DISORDER NOS 02/05/2013 RHIANNON POLANCO GENARO N 296.90 MOOD DISORDER NOS 02/05/2013 [facility] [place] A 296.90 MOOD DISORDER NOS 02/05/2013 RHIANNON POLANCO GENARO N 296.90 MOOD DISORDER NOS 02/05/2013 RHIANNON POLANCO GENARO N 296.90 MOOD DISORDER NOS 02/05/2013 [facility] [place] A 296.90 MOOD DISORDER NOS 02/05/2013 RHIANNON POLANCO GENARO N 296.90 MOOD DISORDER NOS 02/05/2013 RHIANNON POLANCO GENARO N 296.90 MOOD DISORDER NOS 02/05/2013 CARYMAXIMILIANO LÓPEZ JOSE ALEJANDRO A 296.90 MOOD DISORDER NOS 02/05/2013 CARY BACKWINDER, JOSE ALEJANDRO A 296.90 MOOD DISORDER NOS [...] GENARO JURADO MD V06.1 TDAP DX 03/06/2013 [facility] [place] Mcgrath 649.60 UTER INE SIZE DATE DISCREPANCY -SGA 03/06/2013 [facility] [place] Mcgrath V06.1 TDAP DX 03/06/2013 GENARO [...] GENARO JURADO MD V06.1 TDAP DX 03/06/2013 [facility] [place] Mcgrath 649.60 UTER INE SIZE DATE DISCREPANCY -SGA 03/06/2013 [facility] [place] Mcgrath V06.1 TDAP DX 03/06/2013 GENARO JURADO MD N 649.60 UTER INE SIZE DATE DISCREPANCY -SGA 03/06/2013 GENARO JURADO MD N V06.1 TDAP DX 03/06/2013 GENARO JURADO MD N 649.60 UTER INE SIZE DATE DISCREPANCY -SGA 03/06/2013 GENARO JURADO MD N V06.1 TDAP DX 03/06/2013 [facility] [place] Mcgrath 649.60 UTER INE SIZE DATE DISCREPANCY -SGA 03/06/2013 [facility] [place] A V06.1 TDAP DX 03/06/2013 GENARO JURADO MD 649.60 UTER INE SIZE DATE DISCREPANCY -SGA 03/06/2013 GENARO JURADO MD V06.1 TDAP DX 03/06/2013 GENARO JURADO MD 649.60 UTER INE SIZE DATE DISCREPANCY -SGA 03/06/2013 GENARO JURADO MD V06.1 TDAP DX 03/06/2013 CARY BACKWINDER, JOSE ALEJANDRO A 649.60 UTER INE SIZE DATE DISCREPANCY -SGA 03/06/2013 CARY BACKWINDER, JOSE ALEJANDRO A V06.1 TDAP DX 03/06/2013 CARY BACKWINDER, JOSE ALEJANDRO A 649.60 UTER INE SIZE DATE DISCREPANCY -SGA 03/06/2013 CARY BACKWINDER, JOSE ALEJANDRO A V06.1 TDAP DX 03/06/2013 [...] F F43.8 Other reactions to severe stress [place], Telisa 01/14/2015 F F43.8 Other reactions to severe stress Miguel, Telisa 07/12/2015 LEONARD CHIN DO Ot 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 07/12/2015 LEONARD CHIN DO Ot V23.83 SUPRV HIGH-RISK PREG-YOUNG PRIMIGRAVIDA 07/12/2015 RHIANNON POLANCO, GENARO Pulido Ot 649.63 UTERINE SIZE DATE DISCREPANCY, ANTEPARTU 07/12/2015 RHIANNON POLANCO, GENARO Pulido Ot 656.53 POOR GRTH-ANTEPART 07/12/2015 JOSE ALEJANDRO TOWNSEND BACKWINDER Ot 646.83 PREG COMPL NEC-ANTEPART 07/12/2015 JOSE ALEJANDRO TOWNSEND BACKWINDER Ot 789.00 ABDOMINAL PAIN, UNSPECIFIED SITE 07/12/2015 Ot 656.53 POOR GRTH-ANTEPART 07/12/2015 ROSA ESTEVEZ BACKWINDER Ot K58.9 IRRITABLE BOWEL SYNDROME WITHOUT DIARRHE 07/12/2015 ROSA ESTEVEZ BACKWINDER Ot R10.84 GENERALIZED ABDOMINAL PAIN 07/13/2015 ROSA ESTEVEZ BACKWINDER Ot K58.9 IRRITABLE BOWEL SYNDROME WITHOUT DIARRHE 07/13/2015 ROSA ESTEVEZ BACKWINDER Ot R10.84 GENERALIZED ABDOMINAL PAIN 07/14/2015 ROSA ESTEVEZ BACKWINDER Ot K58.9 IRRITABLE BOWEL SYNDROME WITHOUT DIARRHE 07/14/2015 ROSA ESTEVEZ BACKWINDER Ot R10.84 GENERALIZED ABDOMINAL PAIN 07/14/2015 LEONARD CHIN DO Ot 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 07/14/2015 LEONARD CHIN DO Ot V23.83 SUPRV HIGH-RISK PREG-YOUNG PRIMIGRAVIDA 07/14/2015 RHIANNON POLANCO, GENARO Pulido Ot 649.63 UTERINE SIZE DATE DISCREPANCY, ANTEPARTU 07/14/2015 GENARO JURADO MD Ot 656.53 POOR GRTH-ANTEPART 07/14/2015 NICK TOWNSENDIDI A BACKWINDER Ot 646.83 PREG COMPL NEC-ANTEPART 07/14/2015 NICK TOWNSENDIDI A BACKWINDER Ot 789.00 ABDOMINAL PAIN, UNSPECIFIED SITE 07/14/2015 Ot 656.53 POOR GRTH-ANTEPART 08/08/2015 LEONARD CHIN DO Ot 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 08/08/2015 LEONARD CHIN DO Ot V23.83 SUPRV HIGH-RISK PREG-YOUNG PRIMIGRAVIDA 08/08/2015 GENARO JURADO MD Ot 649.63 UTERINE SIZE DATE DISCREPANCY, ANTEPARTU 08/08/2015 GENARO JURADO MD Ot 656.53 POOR GRTH-ANTEPART 08/08/2015 CARYNICKJOSE ALEJANDRO A BACKWINDER Ot 646.83 PREG COMPL NEC-ANTEPART 08/08/2015 NICK TOWNSENDIDI A BACKWINDER Ot 789.00 ABDOMINAL PAIN, UNSPECIFIED SITE 08/08/2015 Ot 656.53 POOR GRTH-ANTEPART 08/08/2015 LEONARD CHIN DO Ot 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 08/08/2015 ELONARD CHIN DO Ot V23.83 SUPRV HIGH-RISK PREG-YOUNG PRIMIGRAVIDA 08/08/2015 GENARO JURADO MD Ot 649.63 UTERINE SIZE DATE DISCREPANCY, ANTEPARTU 08/08/2015 GENARO JURADO MD Ot 656.53 POOR GRTH-ANTEPART 08/08/2015 NICK TOWNSENDIDI A BACKWINDER Ot 646.83 PREG COMPL NEC-ANTEPART 08/08/2015 NICK TOWNSENDIDI A BACKWINDER Ot 789.00 ABDOMINAL PAIN, UNSPECIFIED SITE 08/08/2015 Ot 656.53 POOR GRTH-ANTEPART 08/08/2015 NEVILLE FLOWERS Ot K58.0 IRRITABLE BOWEL SYNDROME WITH DIARRHEA 08/08/2015 NEVILLE FLOWERS Ot R11.2 NAUSEA WITH VOMITING, UNSPECIFIED 08/08/2015 LEONARD CHIN DO Ot 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 08/08/2015 CHIN DO, LEONARD K Ot V23.83 SUPRV HIGH-RISK PREG-YOUNG PRIMIGRAVIDA 08/08/2015 RHIANNON POLANCO, GENARO Pulido Ot 649.63 UTERINE SIZE DATE DISCREPANCY, ANTEPARTU 08/08/2015 GENARO JURADO MD Ot 656.53 POOR GRTH-ANTEPART 08/08/2015 CARYNICK VIERAIDI A BACKWINDER Ot 646.83 PREG COMPL NEC-ANTEPART 08/08/2015 CARY, JOSE ALEJANDRO A BACKWINDER Ot 789.00 ABDOMINAL PAIN, UNSPECIFIED SITE 08/08/2015 Ot 656.53 POOR GRTH-ANTEPART 08/08/2015 CHIN LORAINE PICHARDOA K Ot 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 08/08/2015 CHIN LEONARD PICHARDO Ot V23.83 SUPRV HIGH-RISK PREG-YOUNG PRIMIGRAVIDA 08/08/2015 GENARO JURADO MD N Ot 649.63 UTERINE SIZE DATE DISCREPANCY, ANTEPARTU 08/08/2015 GENARO JURADO MD Ot 656.53 POOR GRTH-ANTEPART 08/08/2015 CARY, JOSE ALEJANDRO A BACKWINDER Ot 646.83 PREG COMPL NEC-ANTEPART 08/08/2015 CARY, JOSE ALEJANDRO A BACKWINDER Ot 789.00 ABDOMINAL PAIN, UNSPECIFIED SITE 08/08/2015 [...] OTHER EXTERNAL CAUSE STATUS 09/24/2015 ROSA ESTEVEZ BACKWINDER Ot S60.222A CONTUSION OF LEFT HAND, INITIAL ENCOUNTE 09/24/2015 ROSA ESTEVEZ BACKWINDER Ot S69.92XA UNSP INJURY OF LEFT WRIST, HAND AND FING 09/24/2015 ROSA ESTEVEZ BACKWINDER Ot W22.09XA STRIKING AGAINST OTHER STATIONARY OBJECT 09/24/2015 ROSA ESTEVEZ BACKWINDER Ot Y99.8 OTHER EXTERNAL CAUSE STATUS 10/08/2015 [...] STATUS 06/14/2016 LEONARD CHIN DO Ot 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 06/14/2016 LEONARD CHIN DO Ot V23.83 SUPRV HIGH-RISK PREG-YOUNG PRIMIGRAVIDA 06/14/2016 GENARO JURADO MD Ot 649.63 UTERINE SIZE DATE DISCREPANCY, ANTEPARTU 06/14/2016 GENARO JURADO MD Ot 656.53 POOR GRTH-ANTEPART 06/14/2016 JOSE ALEJANDRO TOWNSEND BACKWINDER Ot 646.83 PREG COMPL NEC-ANTEPART 06/14/2016 JOSE ALEJANDRO TOWNSEND BACKWINDER Ot 789.00 ABDOMINAL PAIN, UNSPECIFIED SITE 06/14/2016 [...] Ot R10.31 RIGHT LOWER QUADRANT PAIN 07/19/2016 AGNIE DO, BRENDA K Ot R10.84 GENERALIZED ABDOMINAL PAIN 07/19/2016 ANGIE DO, BRENDA K Ot R11.2 NAUSEA WITH VOMITING, UNSPECIFIED 08/01/2016 ROSA ESTEVEZ BACKWINDER Ot J45.909 UNSPECIFIED ASTHMA, UNCOMPLICATED 08/01/2016 ROSA ESTEVEZ BACKWINDER Ot N83.201 UNSPECIFIED OVARIAN CYST, RIGHT SIDE 08/01/2016 ROSA ESTEVEZ BACKWINDER Ot R10.31 RIGHT LOWER QUADRANT PAIN 08/01/2016 ROSA ESTEVEZ BACKWINDER Ot Z87.19 PERSONAL HISTORY OF OTHER DISEASES OF 08/03/2016 ROSA ESTEVEZ BACKWINDER Ot J45.909 UNSPECIFIED ASTHMA, UNCOMPLICATED 08/03/2016 ROSA ESTEVEZ BACKWINDER Ot N83.201 UNSPECIFIED OVARIAN CYST, RIGHT SIDE 08/03/2016 ROSA ESTEVEZ BACKWINDER Ot R10.31 RIGHT LOWER QUADRANT PAIN 08/03/2016 ROSA ESTEVEZ BACKWINDER Ot Z87.19 PERSONAL HISTORY OF OTHER DISEASES OF 08/06/2016 Ot 656.53 POOR GRTH-ANTEPART 08/07/2016 ANGIE DO, BRENDA K Ot I88.0 NONSPECIFIC MESENTERIC LYMPHADENITIS 08/07/2016 ANGIE DO, BRENDA K Ot N39.0 URINARY TRACT INFECTION, SITE NOT SPECIF 08/07/2016 ANGIE DO, BRENDA K Ot R10.30 LOWER ABDOMINAL PAIN, UNSPECIFIED 08/07/2016 ROSA ESTEVEZ BACKWINDER Ot J45.909 UNSPECIFIED ASTHMA, UNCOMPLICATED 08/07/2016 ROSA ESTEVEZ BACKWINDER Ot N83.201 UNSPECIFIED OVARIAN CYST, RIGHT SIDE 08/07/2016 ROSA ESTEVEZ BACKWINDER Ot R10.31 RIGHT LOWER QUADRANT PAIN 08/07/2016 ROSA ESTEVEZ BACKWINDER Ot Z87.19 PERSONAL HISTORY OF OTHER DISEASES [...] F31.9 BIPOLAR DISORDER, UNSPECIFIED 09/25/2016 GENARO, ANASTACIA JAVASCRIPT PROGRAMMER Ot F41.9 ANXIETY DISORDER, UNSPECIFIED 09/25/2016 ANASTACIA LAM JAVASCRIPT PROGRAMMER Ot F90.9 ATTENTION-DEFICIT HYPERACTIVITY DISORDER 09/25/2016 ANASTACIA LAMP Ot J45.909 UNSPECIFIED ASTHMA, UNCOMPLICATED 09/25/2016 ANASTACIA LAM JAVASCRIPT PROGRAMMER Ot L02.411 CUTANEOUS ABSCESS OF RIGHT AXILLA 09/25/2016 ANASTACIA LAMP Ot Z77.22 CNTCT W AND EXPSR TO ENVIRON TOBACCO SMO 09/25/2016 ANASTACIA LAM RUTH Ot Z87.2 PERSONAL HISTORY OF DISEASES OF THE SKIN 09/25/2016 ANASTACIA LAM RUTH Ot Z91.5 PERSONAL HISTORY OF SELF-HARM 09/25/2016 ANASTACIA LAMP Ot Z98.890 OTHER SPECIFIED POSTPROCEDURAL STATES 11/29/2016 LEONARD CHIN DO Ot 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 11/29/2016 CHIN DO LEONARD Najera Ot V23.83 SUPRV HIGH-RISK PREG-YOUNG PRIMIGRAVIDA 11/29/2016 GENARO JURADO MD Ot 649.63 UTERINE SIZE DATE DISCREPANCY, ANTEPARTU 11/29/2016 GENARO JURADO MD Ot 656.53 POOR GRTH-ANTEPART 11/29/2016 JOSE ALEJANDRO TOWNSEND BACKWINDER Ot 646.83 PREG COMPL NEC-ANTEPART 11/29/2016 JOSE ALEJANDRO TOWNSEND BACKWINDER Ot 789.00 ABDOMINAL PAIN, UNSPECIFIED SITE 11/29/2016 Ot 656.53 POOR GRTH-ANTEPART 11/29/2016 ROSA ESTEVEZ BACKWINDER Ot F31.9 BIPOLAR DISORDER, UNSPECIFIED 11/29/2016 ROSA ESTEVEZ BACKWINDER Ot F41.9 ANXIETY DISORDER, UNSPECIFIED 11/29/2016 ROSA ESTEVEZ BACKWINDER Ot F90.9 ATTENTION-DEFICIT HYPERACTIVITY DISORDER 11/29/2016 ROSA ESTEVEZ BACKWINDER Ot K58.9 IRRITABLE BOWEL SYNDROME WITHOUT DIARRHE 11/29/2016 ROSA ESTEVEZ BACKWINDER Ot R11.2 NAUSEA WITH VOMITING, UNSPECIFIED 11/29/2016 ROSA ESTEVEZ BACKWINDER Ot Z91.5 PERSONAL HISTORY OF SELF-HARM 12/11/2016 [...] PERSONAL HISTORY OF SELF-HARM 12/27/2016 ANASTACIA LAM JAVASCRIPT PROGRAMMER Ot F12.90 CANNABIS USE, UNSPECIFIED, UNCOMPLICATED 12/27/2016 GENARO ANASTACIA JAVASCRIPT PROGRAMMER Ot F31.9 BIPOLAR DISORDER, UNSPECIFIED 12/27/2016 GENAROANASTACIA Ruffin JAVASCRIPT PROGRAMMER Ot F41.9 ANXIETY DISORDER, UNSPECIFIED 12/27/2016 GENARO, ANASTACIA JAVASCRIPT PROGRAMMER Ot F90.9 ATTENTION-DEFICIT HYPERACTIVITY DISORDER 12/27/2016 GENARO ANASTACIA JAVASCRIPT PROGRAMMER Ot H66.91 OTITIS MEDIA, UNSPECIFIED, RIGHT EAR 12/27/2016 GENARO ANASTACIA JAVASCRIPT PROGRAMMER Ot H92.01 OTALGIA, RIGHT EAR 12/27/2016 GENARO ANASTACIA JAVASCRIPT PROGRAMMER Ot J02.9 ACUTE PHARYNGITIS, UNSPECIFIED 12/27/2016 GENARO ANASTACIA JAVASCRIPT PROGRAMMER Ot J45.909 UNSPECIFIED ASTHMA, UNCOMPLICATED 12/27/2016 GENARO ANASTACIA JAVASCRIPT PROGRAMMER Ot K58.9 IRRITABLE BOWEL SYNDROME WITHOUT DIARRHE 12/27/2016 GENARO, ANASTACIA JAVASCRIPT PROGRAMMER Ot Z77.22 CNTCT W AND EXPSR TO ENVIRON TOBACCO SMO 12/27/2016 GENARO, ANASTACIA JAVASCRIPT PROGRAMMER Ot Z91.5 PERSONAL HISTORY OF SELF-HARM 12/29/2016 GENARO, ANASTACIA JAVASCRIPT PROGRAMMER Ot F12.90 CANNABIS USE, UNSPECIFIED, UNCOMPLICATED 12/29/2016 GENARO, ANASTACIA JAVASCRIPT PROGRAMMER Ot F31.9 BIPOLAR DISORDER, UNSPECIFIED 12/29/2016 GENARO, ANASTACIA JAVASCRIPT PROGRAMMER Ot F41.9 ANXIETY DISORDER, UNSPECIFIED 12/29/2016 GENARO, ANASTACIA JAVASCRIPT PROGRAMMER Ot F90.9 ATTENTION-DEFICIT HYPERACTIVITY DISORDER 12/29/2016 GENARO, ANASTACIA JAVASCRIPT PROGRAMMER Ot H66.91 OTITIS MEDIA, UNSPECIFIED, RIGHT EAR 12/29/2016 GENARO, ANASTACIA JAVASCRIPT PROGRAMMER Ot H92.01 OTALGIA, RIGHT EAR 12/29/2016 GENARO, ANASTACIA JAVASCRIPT PROGRAMMER Ot J02.9 ACUTE PHARYNGITIS, UNSPECIFIED 12/29/2016 GENARO, ANASTACIA JAVASCRIPT PROGRAMMER Ot J45.909 UNSPECIFIED ASTHMA, UNCOMPLICATED 12/29/2016 GENARO, ANASTACIA JAVASCRIPT PROGRAMMER Ot K58.9 IRRITABLE BOWEL SYNDROME WITHOUT DIARRHE 12/29/2016 GENARO, ANASTACIA JAVASCRIPT PROGRAMMER Ot Z77.22 CNTCT W AND EXPSR TO ENVIRON TOBACCO SMO 12/29/2016 GENARO, ANASTACIA JAVASCRIPT PROGRAMMER Ot Z91.5 PERSONAL HISTORY OF SELF-HARM 01/15/2017 [...] R10.84 GENERALIZED ABDOMINAL PAIN 01/15/2017 ANGIE DO, BRENDA K Ot R11.2 NAUSEA [...] TO ENVIRON TOBACCO SMO 07/25/2017 ROSA ESTEVEZ BACKWINDER Ot Z87.2 PERSONAL HISTORY OF DISEASES OF THE SKIN 07/25/2017 ROSA ESTEVEZ BACKWINDER Ot Z91.5 PERSONAL HISTORY OF SELF-HARM 07/25/2017 ROSA ESTEVEZ BACKWINDER Ot Z98.890 OTHER SPECIFIED POSTPROCEDURAL STATES 07/27/2017 ROSA ESTEVEZ BACKWINDER Ot R11.2 NAUSEA WITH VOMITING, UNSPECIFIED 09/10/2017 GONZALO POLANCO, LEXX J Ot M54.9 DORSALGIA, UNSPECIFIED 09/10/2017 GONZALO POLANCO, LEXX J Ot R07.0 PAIN IN THROAT 09/10/2017 LAURA SÁNCEHZ MDUS J Ot R50.9 FEVER, UNSPECIFIED 09/12/2017 [...] Procedures Code [place] [address] URINE TEST (IN- HOUSE) 11/02/2012 42100 UA LONG DIP 11/02/2012 11672 ROUTINE VENIPUNCTURE 11/14/2012 37269 UA OB DIP 11/14/2012 71728 TSH 11/14/2012 79516 CBC 11/14/2012 47158 SYPHILLIS-STATE LAB 11/14/2012 96366 HIV ANTIBODIES (RML) 11/14/2012 10138 RUBELLA ANTIBODY, IGG 11/14/2012 42688 ANTIBODY SCREEN (order) 11/14/2012 33275 BLOOD TYPE/Rh FACTOR 11/14/2012 03444 CULTURE UROGENITAL 11/14/2012 72122 CULTURE URINE 11/14/2012 72133 HEP B SURFACE ANTIGEN (STATE ) 11/14/2012 76251 GC/CHLAM PROBE (STATE) 11/14/2012 89587 TRICHOMONAS (IN-HOUSE) 11/14/2012 TETRA TETRA SCREEN 11/14/2012 64468 UA OB DIP 11/22/2012 42127 US OB - COMPLETE >14 WEEKS 11/26/2012 50091 UA OB DIP 12/12/2012 32821 UA OB DIP 2013 61988 GLUCOSE PINO 3 HOUR 01/19/2013 48795 PSYCH DIAGNOSTIC EVALUATION 01/19/2013 60794 ROUTINE VENIPUNCTURE 02/06/2013 81944 UA OB DIP 02/06/2013 41254 US OB - FOLLOW UP 02/06/2013 62570 GLUCOSE PINO 1 HOUR 02/06/2013 97260 GC/CHLAM URINE (STATE) 02/06/2013 49277 CBC 02/07/2013 97401 UA OB DIP 03/06/2013 63988 US OB - FOLLOW UP 03/07/2013 98604 PSYTX PT&/FAMILY 45 MINUTES 03/08/2013 27470 UA OB DIP 03/20/2013 53720 UA OB DIP 03/26/2013 24623 BIOPHYSICAL PROFILE () W/O NST 03/26/2013 17004 UA OB DIP 04/02/2013 64452 CULTURE GROUP B STREP VAG 04/02/2013 90405 PSYTX PT&/FAMILY 30 MINUTES 04/04/2013 11473 UA OB DIP 04/10/2013 78111 GLUCOSE FINGER STICK 04/10/2013 37125 UA OB DIP 04/18/2013 73983 PSYTX PT&/FAMILY 45 MINUTES 04/19/2013 73.4 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 04/23/2013 75.69 REPAIR OB LACERATION NEC 04/23/2013 88867 TEST, URINE (IN- HOUSE) 06/12/2013 32821 THERAPUTIC INJ SQ/IM 07/25/2013 [id number] DEPO PROVERA 07/25/2013 13275 TEST, URINE (IN- HOUSE) 07/25/2013 23788 URINALYSIS, AUTO W/SCOPE 11/29/2013 92616 URINE CULTURE/COLONY COUNT 11/29/2013 20056 X-RAY EXAM OF ABDOMEN 12/03/2013 Results Test [...] identification in genital specimen by aerobe culture [id number] NRG Microscopic examination by GUME preparation - [...] 18:25 Bacteria identification in wound by culture [id number] NR FREE TEXT EXTERNAL THIS ISOLATE IS [...] 11.1 fL 7.5-12.5 ABSOLUTE NEUTROPHILS 3855 cells/uL 7015-1539 ABSOLUTE LYMPHOCYTES 1598 cells/uL [phone] ABSOLUTE MONOCYTES [...] medMATCH Buprenorphine CONSISTENT NRG Ethyl Glucuronide (ETG) 23113 ng/mL <500 medMATCH ETG INCONSISTENT NRG Ethyl [...] automated white blood cell (WBC) differential - 12/03/17 14:15 Blood leukocytes automated count (number/volume) 8.3 10*3/uL 4.3-11.0 Blood erythrocytes automated count (number/volume) 5.13 10*6/uL 4.35-5.85 Venous blood hemoglobin measurement (mass/volume) 14.4 g/dL 11.5-16.0 Blood hematocrit (volume fraction) 43 % 35-52 Automated erythrocyte mean corpuscular volume 83 [foz_us] 80-99 Automated erythrocyte mean corpuscular hemoglobin (mass per erythrocyte) 28 pg 25-34 Automated erythrocyte mean corpuscular hemoglobin concentration measurement ( mass/volume) 34 g/dL 32-36 Automated erythrocyte distribution width ratio 14.8 % 10.0-14.5 Automated blood platelet count (count/volume) 273 10*3/uL 130-400 Automated blood platelet mean volume measurement 11.1 [foz_us] 7.4-10.4 Automated blood neutrophils/100 leukocytes 73 % 42-75 Automated blood lymphocytes/100 leukocytes 16 % 12-44 Blood monocytes/100 leukocytes 8 % 0-12 Automated blood eosinophils/100 leukocytes 3 % 0-10 Automated blood basophils/100 leukocytes 0 % 0-10 Blood neutrophils automated count (number/volume) 6.0 10*3 1.8-7.8 Blood lymphocytes automated count (number/volume) 1.4 10*3 1.0-4.0 Blood monocytes automated count (number/volume) 0.7 10*3 0.0-1.0 Automated eosinophil count 0.2 10*3/uL 0.0-0.3 Automated blood basophil count (count/volume) 0.0 10*3/uL 0.0-0.1 Complete urinalysis with reflex to culture - 12/03/17 14:15 Urine color determination KAPIL NRG Urine clarity determination VERY CLOUDY NRG Urine pH measurement by test strip 5 5-9 Specific gravity of urine by test strip 1.025 1.016- 1.022 Urine protein assay by test strip, semi-quantitative 3+ NEGATIVE Urine glucose detection by automated test strip NEGATIVE NEGATIVE Erythrocytes detection in urine sediment by light microscopy 5+ NEGATIVE Urine ketones detection by automated test strip 1+ NEGATIVE Urine nitrite detection by test strip POSITIVE NEGATIVE Urine total bilirubin detection by test strip 1+ NEGATIVE Urine urobilinogen measurement by automated test [...] NRG Complete urinalysis with reflex to culture YES NRG Serum or plasma choriogonadotropin ( test) detection - 12/03/17 14:15 Serum or plasma choriogonadotropin ( test) detection NEGATIVE NEGATIVE Comprehensive metabolic panel - 12/03/17 14:15 Serum or plasma sodium measurement (moles/volume) 140 [...] or plasma alkaline phosphatase measurement (enzymatic activity/volume) 80 U/L 40-136 Serum or plasma aspartate aminotransferase measurement (enzymatic activity/ volume) 17 U/L 5-34 Serum or plasma alanine aminotransferase measurement (enzymatic activity/volume ) 17 U/L 0-55 Serum or plasma protein measurement (mass/volume) 7.5 g/dL 6.4-8.2 Serum or plasma albumin measurement (mass/volume) 4.1 g/dL 3.2-4.5 CALCIUM CORRECTED 9.0 mg/dL 8.5-10.1 Bacterial urine culture - 12/03/17 14:15 Bacterial urine culture SEE REPORT NRG COLONY COUNT . NRG Encounters ACCT No. Visit Date/Time Discharge Status Pt. Type Provider Facility Loc./Unit Complaint [id number] 09/10/2014 15:31:00 09/10/2014 23:59:59 CLS Outpatient BREITKREUTZ, [facility] RAD [id number] 06/04/2014 17:36:00 06/04/2014 17:36:00 DIS Outpatient ABIDA [facility] PANACE [id number] 02/19/2014 16:25:00 02/19/2014 17:20:00 DIS Inpatient ABIDA [facility] OBS [id number] 12/03/2013 14:36:00 12/03/2013 14:36:00 DIS Outpatient ABIDA [facility] RAD [id number] 11/29/2013 17:45:00 11/29/2013 17:45:00 DIS Outpatient JACY CORREIA [facility] LAB [id number] 01/19/2014 00:00:00 Document Registration [id number] 01/19/2013 00:00:00 Document Registration [id number] 06/13/2014 20:11:17 ACT Document Registration [id number] 12/03/2017 13:58:00 12/03/2017 15:10:00 DIS Emergency CRISTINA OLIVIER [facility] ER HEAVY VAGINAL BLEEDING [id number] 09/10/2017 17:49:00 09/10/2017 18:15:00 DIS Emergency LEXX SÁNCHEZ MD [facility] ER FEVER,BACK PAIN,THROAT PAIN [id number] 07/25/2017 16:37:00 07/25/2017 17:51:00 DIS Emergency ROSA ESTEVEZ BACKWINDER [facility] ER VOMITING [id number] 03/09/2017 10:00:00 03/09/2017 23:59:59 CLS Preadmit NIKOS AVALOS DO [facility] CARD NAUSEA AND VOMITTING [id number] 02/23/2017 08:56:00 02/23/2017 23:59:59 CLS Outpatient KENNY DURAN DO [facility] RAD NAUSEA AND VOMITTING [id number] 01/25/2017 07:27:00 01/25/2017 23:59:59 CLS Preadmit KENNY DURAN DO [facility] CARD NAUSEA AND VOMITTING [id number] 01/14/2017 22:35:00 01/15/2017 00:25:00 DIS Emergency ANGIE BRENDA PICHARDO K [facility] ER VOMITING [id number] 12/27/2016 20:31:00 12/27/2016 21:26:00 DIS Emergency ANASTACIA LAMP [facility] ER SORE THROAT [id number] 12/11/2016 16:29:00 12/11/2016 18:07:00 DIS Emergency CURTIS GOMEZ MD [facility] ER ABD PAIN/N/V [id number] 11/29/2016 18:07:00 11/29/2016 20:29:00 DIS Emergency ROSA ESTEVEZ APRN [facility] ER ABDOMINAL PAIN,VOMITING [id number] 09/25/2016 17:11:00 09/25/2016 18:47:00 DIS Emergency ANASTACIA LAM [facility] ER R ARMPIT LUMP/PAIN [id number] 08/22/2016 20:41:00 08/22/2016 22:00:00 DIS Emergency ANGIE DO BRENDA K [facility] ER FEVER/STOMACH PAIN [id number] 08/06/2016 21:44:00 08/07/2016 00:03:00 DIS Emergency ANGIE DOBRENDA [facility] ER R SIDE AND BACK PAIN [id number] 08/01/2016 14:39:00 08/01/2016 16:08:00 DIS Emergency ROSA ESTEVEZ APRN [facility] ER RUQ PAIN [id number] 07/15/2016 00:30:00 07/15/2016 01:59:00 DIS Emergency ANGIE DOBRENDA [facility] ER ABD PAIN [id number] 06/14/2016 22:59:00 06/15/2016 02:08:00 DIS Emergency GEORGINA DIAZ MD [facility] ER VOMITING [id number] 03/24/2016 09:43:00 03/24/2016 10:46:00 DIS Emergency ROSA ESTEVEZ APRN [facility] ER POSS INSECT BITE LEFT EYE SWOLLEN/KNOTS ON FACE [id number] 02/23/2016 12:54:00 02/23/2016 14:09:00 DIS Emergency JASON POLANCO, CURTIS Macias [facility] ER FACIAL SWELLING VOMITING [id number] 01/19/2016 20:02:00 01/19/2016 21:20:00 DIS Emergency BRENDA ADAMS DO [facility] ER BREASTS SWELLING/LEAKING FLUID [id number] 10/15/2015 19:25:00 10/15/2015 21:19:00 DIS Emergency JASON POLANCO, CURTIS Macias [facility] ER PSYCH EVAL [id number] 10/08/2015 18:34:00 10/08/2015 19:43:00 DIS Emergency JOE POLANCO, GEORGINA Sierra [facility] ER ANXIETY [id number] 09/23/2015 16:37:00 09/23/2015 18:22:00 DIS Emergency ROSA ESTEVEZ BACKWINDER [facility] ER LEFT ARM INJ [id number] 08/08/2015 15:14:00 08/08/2015 17:21:00 DIS Emergency NEVILLE FLOWERS [facility] ER STOMACH PAIN [id number] 07/12/2015 18:06:00 07/12/2015 20:33:00 DIS Emergency ROSA ESTEVEZ BACKWINDER [facility] ER VOMITING/FEELING HOT/ABD PAIN [id number] 06/13/2014 20:10:00 06/13/2014 21:27:00 DIS Emergency BRENDA ADAMS DO [facility] ER LT ANKLE PAIN [id number] 04/09/2013 15:36:00 07/08/2013 00:01:00 DIS Outpatient RHIANNON POLANCO, GENARO Pulido [facility] RAD POOR GROWTH [id number] 06/01/2013 21:35:00 06/02/2013 00:23:00 DIS Emergency JOE POLANCO, GEORGINA Sierra [facility] ER DIZZY;HEADACHE [id number] 04/23/2013 20:26:00 04/25/2013 11:25:00 DIS Inpatient GENARO JURADO MD [facility] WS INDUCTION [id number] 04/04/2013 18:02:00 04/04/2013 18:48:00 DIS Outpatient GENARO JURADO MD [facility] WSo VAGINAL BLEEDING [id number] 03/24/2013 19:59:00 03/24/2013 21:55:00 DIS Outpatient GENARO JURADO MD [facility] WSo CONTRACTIONS [id number] 03/22/2013 13:00:00 03/22/2013 23:59:59 CLS Outpatient GENARO JURADO MD [facility] RAD F/U GROWTH [id number] 03/14/2013 11:48:00 03/14/2013 23:59:59 CLS Outpatient JOSE ALEJANDRO TOWNSEND APRN [facility] LAB DIABETES SCREENING [id number] 02/27/2013 10:19:00 02/27/2013 12:23:00 DIS Outpatient GENARO JURADO MD [facility] WSo LOW ABD PAIN [id number] 02/15/2013 13:33:00 02/15/2013 23:59:59 CLS Outpatient GENARO JURADO MD [facility] RAD DECREASED FUNDAL HEIGHT [id number] 02/15/2013 01:11:00 02/15/2013 03:45:00 DIS Outpatient GENARO JURADO MD [facility] WSo ABD PAIN [id number] 11/30/2012 12:12:00 11/30/2012 23:59:59 CLS Outpatient LEONARD CHIN DO [facility] RAD ABNORMAL TETRA SCREEN FOR NEURAL TUBE DEFECT [id number] 07/09/2013 15:15:00 Document Registration [id number] 09/19/2013 13:17:00 09/19/2013 23:59:59 CLS Outpatient ADDISON ADAMS DDS [id number] 07/25/2013 16:14:00 07/25/2013 23:59:59 CLS Outpatient LEONARD CHIN DO [id number] 06/12/2013 15:36:00 06/12/2013 23:59:59 CLS Outpatient JOSE ALEJANDRO TOWNSEND APRN Alcides [id number] 06/12/2013 15:36:00 06/12/2013 23:59:59 CLS Outpatient JOSE ALEJANDRO TOWNSEND APRN Alcides [id number] 05/27/2013 10:47:00 05/27/2013 23:59:59 CLS Outpatient GENARO JURADO MD [id number] 04/19/2013 12:45:00 04/19/2013 23:59:59 CLS Outpatient MORRIS PATHAK [id number] 04/18/2013 15:34:00 04/18/2013 23:59:59 CLS Outpatient GENARO JURADO MD [id number] 04/18/2013 15:34:00 04/18/2013 23:59:59 CLS Outpatient GENARO JURADO MD [id number] 04/10/2013 15:35:00 04/10/2013 23:59:59 CLS Outpatient GENARO JURADO MD [id number] 04/04/2013 09:45:00 04/04/2013 23:59:59 CLS Outpatient MORRIS PATHAK [id number] 04/02/2013 15:49:00 04/02/2013 23:59:59 CLS Outpatient GENARO JURADO MD [id number] 03/26/2013 12:39:00 03/26/2013 23:59:59 CLS Outpatient GENARO JURADO MD [id number] 03/20/2013 15:19:00 03/20/2013 23:59:59 CLS Outpatient GENARO JURADO MD [id number] 03/08/2013 13:10:00 03/08/2013 23:59:59 CLS Outpatient MORRIS PATHAK [id number] 03/06/2013 16:00:00 03/06/2013 23:59:59 CLS Outpatient GENARO JURADO MD [id number] 02/06/2013 15:57:00 02/06/2013 23:59:59 CLS Outpatient GENARO JURADO MD [id number] 01/23/2013 13:27:00 01/23/2013 23:59:59 CLS Outpatient JERRI JACKSON APRN [id number] 2013 16:09:00 2013 23:59:59 CLS Outpatient CHIN DOLEONARD [id number] 2013 16:09:00 2013 23:59:59 CLS Outpatient RHIANNON POLANCO GENARO N [id number] 12/12/2012 15:59:00 12/12/2012 23:59:59 CLS Outpatient LEONARD CHIN DO [id number] 11/22/2012 10:40:00 11/22/2012 23:59:59 CLS Outpatient ELSY DOLEONARD [id number] 11/14/2012 09:39:00 11/14/2012 23:59:59 CLS Outpatient CHIN DOLEONARD [id number] 11/02/2012 10:39:00 11/02/2012 23:59:59 CLS Outpatient MANUEL LONGJERRI Pulido [id number] 11/07/2012 10:55:00 Document Registration [id number] 11/02/2012 10:39:00 Document Registration [id number] 11/02/2015 18:06:00 Document Registration [email or web address] 09/11/2014 01:53:06 ACT Document Registration [id number] 01/07/2015 08:00:00 01/07/2015 23:59:59 CLS Outpatient [id number] 07/06/2015 04:44:56 Document Registration [id number] 07/06/2015 04:38:06 Document Registration [id number] 07/06/2015 04:29:06 Document Registration [id number] 07/06/2015 04:29:04 Document Registration [id number] 06/08/2015 10:02:39 Document Registration [id number] 05/11/2015 04:31:13 Document Registration [id number] 05/07/2015 13:50:42 Document Registration [id number] 05/07/2015 13:49:06 Document Registration [id number] 05/07/2015 13:48:01 Document Registration [id number] 05/07/2015 13:45:53 Document Registration [id number] 04/22/2015 04:28:54 Document Registration [id number] 04/09/2015 14:39:10 Document Registration [id number] 04/09/2015 14:38:37 Document Registration [id number] 04/09/2015 14:38:35 Document Registration [id number] 04/09/2015 14:38:32 Document Registration [id number] 04/09/2015 14:38:30 Document Registration [id number] 04/09/2015 14:38:02 Document Registration [id number] 04/09/2015 14:37:47 Document Registration [id number] 11/04/2016 11:08:00 Document Registration [id number] 09/19/2017 09:20:00 09/19/2017 23:59:59 CLS Outpatient MARY YOO [facility] [id number] 07/11/2017 13:20:00 Document Registration [id number] 04/04/2017 11:00:00 Document Registration [id number] 12/29/2016 11:00:00 Document Registration [id number] 11/01/2016 11:45:00 Document Registration
[2017-12-07 19:57] LABS: ALANINE AMINOTRANSFERASE 16 U/L (0-55); ALBUMIN 4.6 GM/DL (3.2-4.5); ALKALINE PHOSPHATASE 81 U/L (40-136); BILIRUBIN,TOTAL 0.2 MG/DL (0.1-1.0); BUN/CREATININE RATIO 15; CALCIUM 9.6 MG/DL (8.5-10.1); CARBON DIOXIDE 24 MMOL/L (21-32); CHLORIDE 104 MMOL/L (98-107); CREATININE SERUM 0.75 MG/DL (0.60-1.30); GFR ESTIMATED > 60; GLUCOSE 105 MG/DL (70-105); SALICYLATE < 5.0 MG/DL (5.0-20.0); SODIUM 140 MMOL/L (135-145); TOTAL PROTEIN 8.4 GM/DL (6.4-8.2)
[2017-12-07 20:04] LABS: ACETAMINOPHEN < 10 UG/ML (10-30)
[2017-12-07 20:17] LABS: TSH (THYROID ANALYZER) 1.45 UIU/ML (0.35-4.94)
[2017-12-07 20:18] LABS: BILIRUBIN,URINE NEGATIVE (NEGATIVE); CLARITY,URINE CLEAR; COLOR,URINE YELLOW; GLUCOSE, URINE (UA) NEGATIVE (NEGATIVE); KETONES,URINE NEGATIVE (NEGATIVE); LEUKOCYTE ESTERASE ,URINE NEGATIVE (NEGATIVE); NITRITE,URINE NEGATIVE (NEGATIVE); PH,URINE 7 (5-9); PROTEIN,URINE NEGATIVE (NEGATIVE); UROBILINOGEN,URINE NORMAL (NORMAL)
[2017-12-07 20:25] LABS: SQUAMOUS EPITHELIAL CELL,UR 0-2 /HPF
[2017-12-07 20:40] LABS: AMPHETAMINE SCREEN, URINE NEGATIVE (NEGATIVE); BARBITURATE SCREEN URINE NEGATIVE (NEGATIVE); BENZODIAZEPINES SCREEN URINE NEGATIVE (NEGATIVE); CANNABINOID SCREEN, URINE NEGATIVE (NEGATIVE); COCAINE SCREEN URINE NEGATIVE (NEGATIVE); METHADONE STAT NEGATIVE (NEGATIVE); METHAMPHETAMINE SCREEN URINE S NEGATIVE (NEGATIVE); OPIATE SCREEN URINE NEGATIVE (NEGATIVE); OXYCODONE STAT NEGATIVE (NEGATIVE); PROPOXYPHENE STAT NEGATIVE (NEGATIVE); TRICYCLIC ANTIDEPRESSANTS SCRE NEGATIVE (NEGATIVE)
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
[2017-12-07 23:10] VITALS: BP 123/70
== END 2017-12-07 23:10 | disposition home or self-care (01) ==
LOC: ER 19:16 → EDUNIT# 19:16 → ER 23:10
DX: T36.0X2A Poisoning by penicillins, intentional self-harm, initial encounter (principal); T42.1X2A Poisoning by iminostilbenes, intentional self-harm, initial encounter; J45.909 Unspecified asthma, uncomplicated; F90.9 Attention-deficit hyperactivity disorder, unspecified type; F41.9 Anxiety disorder, unspecified; F31.9 Bipolar disorder, unspecified; F12.10 Cannabis abuse, uncomplicated; Z87.448 Personal history of other diseases of urinary system; Z91.5 Personal history of self-harm; Z87.19 Personal history of other diseases of the digestive system; Z77.22 Contact with and (suspected) exposure to environmental tobacco smoke (acute) (chronic); Z98.890 Other specified postprocedural states
CPT/HCPCS: 36415; 80053; 80306; 80320; 80329; 81000; 84443; 84703; 85025; 93005; 93041

== ENCOUNTER 2018-03-19 19:55 | Emergency (ER) | payer MEDICAID ==
[~2018-03-19] VITALS: Ht 154.9 cm; Wt 59.0 kg
[~2018-03-19 19:55] MED LIST changes: +METR-145; -METR500T21
--- OUTSIDE RECORDS SUMMARY | 2018-03-19 20:16 | XMS REPORT ---
Author Author ANDREW MITCHELL Organization [facility] Address [address] [place] [address] Care Team Providers Care Churner Name Role Phone EMMY MITCHELLTA Unavailable PROBLEMS Type Condition ICD9-CM Code LLW77-FA Code Onset Dates Condition Status SNOMED Code Problem ADHD (attention deficit hyperactivity disorder), combined type F90.2 Active 31238687 Problem Rhinitis, unspecified type J31.0 Active 89213053 Problem Depressive disorder, not elsewhere classified F32.9 Active 67085884 Problem Anxiety state F41.1 Active 193122306 Problem Unspecified mood [affective] disorder F39 Active 45674645 Problem Irritable bowel syndrome with diarrhea K58.0 Active 205441515 Problem Major depressive disorder, single episode, mild F32.0 Active 03045712 Problem Slow transit constipation K59.01 Active 69126758 Problem Plantar wart of right foot B07.0 Active [id number] Problem Anxiety disorder, unspecified type F41.9 Active 194326709 ALLERGIES No Information ENCOUNTERS Encounter Location Date Diagnosis [facility] [id number] [place] [address] 45074- 3246 Mar, [facility] [id number] [place] [address] 92224- 7490 Jan, [facility] [id number] [place] [address] 74975- 5427 Jan, ADHD (attention deficit hyperactivity disorder), combined type F90.2 ; Anxiety disorder, unspecified type F41.9 and Unspecified mood [ affective] disorder F39 [facility] [id number] [place] [address] 71968- 5721 Jan, Well woman exam with routine gynecological exam Z01.419 ; Routine screening for STI (sexually transmitted infection) Z11.3 and Vaginal jose B37.3 [facility] [address], [place] [address] Dec, [facility] [id number] [address] 29[address] Dec, [facility] [address], [place] [address] Dec, ADHD (attention deficit hyperactivity disorder), combined type F90.2 ; Anxiety disorder, unspecified type F41.9 and Unspecified mood [ affective] disorder F39 [place] [address], [place] [address] Dec, Unspecified mood [affective] disorder F39 ; Anxiety disorder , unspecified type F41.9 and ADHD (attention deficit hyperactivity disorder), combined type F90.2 [facility] [address], [place] [address] Nov, Other specified bacterial agents as the cause of diseases classified elsewhere B96.89 and Otitis media, unspecified, bilateral H66.93 [facility] [address], [place] [address] Nov, Sore throat J02.9 and Acute nasopharyngitis J00 [facility] [address], [place] [address] Nov, ADHD (attention deficit hyperactivity disorder), combined type F90.2 ; Anxiety disorder, unspecified type F41.9 and Unspecified mood [ affective] disorder F39 [facility] [id number], [place] [address] 2[address] Oct, ADHD (attention deficit hyperactivity disorder), combined type F90.2 [facility] [address], [place] [address] 0[address] Oct, ADHD (attention deficit hyperactivity disorder), combined type F90.2 ; Anxiety disorder, unspecified type F41.9 and Unspecified mood [ affective] disorder F39 [facility] [address], [place] [address] 0[address] Sep, ADHD (attention deficit hyperactivity disorder), combined type F90.2 [facility] [address], [place] [address] 86[address] Sep, [facility] [address], [place] [address] 4246 Aug, ADHD (attention deficit hyperactivity disorder), combined type F90.2 ; Major depressive disorder, single episode, mild F32.0 and Anxiety disorder, unspecified type F41.9 [facility] [id number], [place] [address] Aug, Sore throat J02.9 ; Other specified bacterial agents as the cause of diseases classified elsewhere B96.89 and Acute tonsillitis due to other specified organisms J03.80 [facility] [address], [place] [address] 99[address] Aug, ADHD (attention deficit hyperactivity disorder), combined type F90.2 [facility] [address], [place] [address] 35[address] Jul, ADHD (attention deficit hyperactivity disorder), combined type F90.2 [facility] [address], [place] [address] 5[address] June, ADHD (attention deficit hyperactivity disorder), combined type F90.2 ; Major depressive disorder, single episode, mild F32.0 and Anxiety disorder, unspecified type F41.9 [facility] [address], [place] [address] 9[address] June, [facility] [address], [place] [address] 0874 June, ADHD (attention deficit hyperactivity disorder), combined type F90.2 [facility] [id number], [place] [address] 4[address] May, [facility] [address], [place] [address] 9[address] May, ADHD (attention deficit hyperactivity disorder), combined type F90.2 ; Major depressive disorder, single episode, mild F32.0 and Anxiety disorder, unspecified type F41.9 [place] [id number] [place] [address] 87370- 0508 May, Anxiety disorder, unspecified type F41.9 [place] [id number] [place] [address] 83611- 0456 Apr, [facility] [facility] [id number] [place] [address] 39287- 4805 Apr, Anxiety disorder, unspecified type F41.9 [facility] [id number] [place] [address] 42571- 6698 Apr, Anxiety disorder, unspecified type F41.9 ; Major depressive disorder, single episode, mild F32.0 and ADHD (attention deficit hyperactivity disorder), combined type F90.2 [facility] [id number] [place] [address] 27948- 3680 Apr, [facility] [id number] [place] [address] 09631- 2618 Apr, ADHD (attention deficit hyperactivity disorder), combined type F90.2 ; Anxiety state F41.1 ; Depressive disorder, not elsewhere classified F32.9 ; Major depressive disorder, single episode, mild F32.0 and Anxiety disorder, unspecified type F41.9 [place] [id number] [place] [address] 77366- 7767 Mar, ADHD (attention deficit hyperactivity disorder), combined type F90.2 [place] [id number] [place] [address] 86050- 0689 Mar, Nausea R11.0 [place] [id number] [place] [address] 55312- 2260 13 Mar, 2017 Screening for STD sexually transmitted disease Z11.3 ; Vaginal candidiasis B37.3 and Irritable bowel syndrome with diarrhea K58.0 [place] [address], [place] [address] 52[address] Mar, [facility] [address], [place] [address] 9496 Feb, ADHD (attention deficit hyperactivity disorder), combined type F90.2 [facility] [address], [place] [address] 9218 Feb, Depressive disorder, not elsewhere classified F32.9 ; Anxiety state F41.1 and ADHD (attention deficit hyperactivity disorder), combined type F90.2 [facility] [address], [place] [address] 2056 Feb, Depressive disorder, not elsewhere classified F32.9 ; Anxiety state F41.1 and ADHD (attention deficit hyperactivity disorder), combined type F90.2 [facility] [address], [place] [address]- 9265 Feb, ADHD (attention deficit hyperactivity disorder), combined type F90.2 [facility] IN [facility] [address], [place] [address] Jan, Other viral agents as the cause of diseases classified elsewhere B97.89 and Acute upper respiratory infection, unspecified J06.9 [place] [id number], [place] [address]- 8600 Jan, ADHD (attention deficit hyperactivity disorder), combined type F90.2 ; Major depressive disorder, single episode, mild F32.0 and Anxiety disorder, unspecified type F41.9 [facility] [id number], [place] [address]- 5102 Jan, [facility] [address], [place] [address]- 6545 Jan, ADHD (attention deficit hyperactivity disorder), combined type F90.2 ; Major depressive disorder, single episode, mild F32.0 and Anxiety disorder, unspecified type F41.9 [facility] [id number] [place] [address] 66156- 4164 Dec, Irritable bowel syndrome with diarrhea K58.0 and Lower abdominal pain R10.30 [place] [id number] [place] [address] 21461- 3696 09 Dec, 2016 Hospital discharge follow-up Z09 ; Mesenteric adenitis I88.0 ; IBD (inflammatory bowel disease) K52.9 and Nausea R11.0 [place] [id number] [place] [address] 07108- 6792 Nov, ADHD (attention deficit hyperactivity disorder), combined type F90.2 ; Major depressive disorder, single episode, mild F32.0 and Anxiety disorder, unspecified type F41.9 [place] [id number] [place] [address] 26859- 5631 Nov, Anxiety state F41.1 ; ADHD (attention deficit hyperactivity disorder), combined type F90.2 ; Major depressive disorder, single episode, mild F32.0 and Anxiety disorder, unspecified type F41.9 [place] [id number] [place] [address] 30166- 2050 Oct, Anxiety state F41.1 ; ADHD (attention deficit hyperactivity disorder), combined type F90.2 ; Major depressive disorder, single episode, mild F32.0 and Anxiety disorder, unspecified type F41.9 [place] [id number] [place] [address] 50771- 6293 Oct, ADHD (attention deficit hyperactivity disorder), combined type F90.2 ; Major depressive disorder, single episode, mild F32.0 and Anxiety disorder, unspecified type F41.9 [place] [id number] [place] [address] 09502- 8534 Oct, Major depressive disorder, single episode, mild F32.0 ; Anxiety state F41.1 ; ADHD (attention deficit hyperactivity disorder), combined type F90.2 and Depressive disorder, not elsewhere classified F32.9 [facility] IN [facility] [id number] [place] [address] 56041 -1438 16 Oct, 2016 [facility] [id number] [place] [address] 10326 -2728 Oct, Cellulitis L03.90 and Plantar wart of right foot B07.0 [facility] [id number] [place] [address] 13397- 1380 Aug, ADHD (attention deficit hyperactivity disorder), combined type F90.2 ; Major depressive disorder, single episode, mild F32.0 and Anxiety disorder, unspecified type F41.9 [facility] [id number] [place] [address] 93627- 6062 Aug, [place] [id number] [place] [address] 03840- 3751 Jul, ADHD (attention deficit hyperactivity disorder), combined type F90.2 [facility] [id number] [place] [address] 92648- 3769 Jul, Mesenteric adenitis I88.0 [facility] [id number] [place] [address] 54566- 2448 June, [facility] [id number] [place] [address] 54405 -6952 June, Lower abdominal pain R10.30 [facility] [id number] [place] [address] 59939- 3662 June, [facility] [id number] [place] [address] 84484- 0378 June, ADHD (attention deficit hyperactivity disorder), combined type F90.2 and Major depressive disorder, single episode, mild F32.0 [facility] [id number] [place] [address] 03901- 9799 May, [facility] [id number] [place] [address] 21102- 5116 May, ADHD (attention deficit hyperactivity disorder), combined type F90.2 and Major depressive disorder, single episode, mild F32.0 [facility] [id number] [place] [address] 39271 -5051 Apr, Abdominal pain R10.9 and Gastroenteritis and colitis, viral A08.4 [place] [id number] [place] [address] 05699- 3432 Apr, [facility] [address] 87859 -3259 Mar, Acute urticaria L50.8 [place] [address] 66667- 4851 Mar, [place] [address] 14184- 6736 Feb, [facility] [address] 96442 -3443 Feb, Gastroenteritis K52.9 [place] [address] 88541- 0848 Feb, Irritant contact dermatitis due to cosmetics L24.3 [place] [id number] [place] [address] 43711- 6670 Jan, [place] [address] 77255- 0537 Jan, [place] [address] 26036- 0303 Jan, ADHD (attention deficit hyperactivity disorder), combined type F90.2 and Major depressive disorder, single episode, mild F32.0 [facility] [id number] [place] [address] 59400 -8712 Dec, Flexural eczema L20.82 [place] [address] 93270- 2182 Dec, Encounter for test Z32.00 [place] [address] 97126- 2279 Dec, [place] [id number] [place] [address] 34982- 6528 Dec, [facility] [id number] [place] [address] 74593- 2592 Dec, [facility] [id number] [place] [address] 56829 -4552 Nov, Sore throat J02.9 and Pharyngitis, unspecified etiology J02.9 [facility] [address] 79213- 5909 Nov, [facility] [address] 90797- 6362 Nov, [facility] [address] 09707- 1920 Nov, Generalized abdominal pain R10.84 and Slow transit constipation K59.01 [facility] [address] [id number] Nov, Pharyngitis, unspecified etiology J02.9 and Rhinitis, unspecified type J31.0 [facility] [id number] [place] [address] 35124- 7214 Oct, Depressive disorder, not elsewhere classified F32.9 and ADHD (attention deficit hyperactivity disorder), combined type F90.2 [facility] [id number] [place] [address] 89479- 1493 Oct, [facility] [id number] [place] [address] 79626- 1399 Oct, [facility] [id number] [place] [address] 46843 -7990 Oct, Strep throat J02.0 [facility] [id number] [place] [address] 43084- 4854 16 Oct, 2015 [facility] [id number] [place] [address] 70713- 6217 09 Sep, 2016 Well woman exam with routine gynecological exam Z01.419 and Screening for STD sexually transmitted disease Z11.3 [facility] [address], [place] [address]- 9697 Sep, ADHD (attention deficit hyperactivity disorder), combined type F90.2 ; Anxiety state F41.1 and Depressive disorder, not elsewhere classified F32.9 [facility] [id number] [place] [address] 76759- 2914 Sep, ADHD (attention deficit hyperactivity disorder), combined type F90.2 and Depressive disorder, not elsewhere classified F32.9 [facility] [id number] [place] [address] 98671- 2923 Aug, [facility] [id number] [place] [address] 76061- 0033 Aug, ADHD (attention deficit hyperactivity disorder), combined type F90.2 and Depressive disorder, not elsewhere classified F32.9 [facility] [id number] [place] [address] 12791- 8562 Aug, ADHD (attention deficit hyperactivity disorder), combined type F90.2 ; Anxiety state F41.1 and Depressive disorder, not elsewhere classified F32.9 [facility] [address], [place] [address]- 0046 Aug, [facility] [address], [place] [address]- 3082 Aug, [facility] [id number] [place] [address] 95000- 9859 Jul, ADHD (attention deficit hyperactivity disorder), combined type F90.2 ; Depressive disorder, not elsewhere classified F32.9 and Anxiety state F41.1 [facility] [address], [place] [address]- 0406 Jul, [facility] [address], [place] [address]- 5802 Jul, ADHD (attention deficit hyperactivity disorder), combined type F90.2 ; Anxiety state F41.1 and Depressive disorder, not elsewhere classified F32.9 [facility] [id number], [place] [address]- 3298 June, [facility] [id number] [place] [address] [id number] June, Constipation K59.00 [facility] [id number] [place] [address] 77362- 3619 May, Constipation K59.00 [facility] [id number] [place] [address] 44500 -6724 May, Irritable bowel syndrome with diarrhea K58.0 [facility] [id number] [place] [address] 72121- 9796 May, [facility] [id number] [place] [address] 86506- 3002 May, [facility] [id number] [place] [address] 18893- 5173 May, [facility] [id number] [place] [address] 57854- 7602 May, [facility] [id number] [place] [address] 33378- 3250 Jan, [facility] [id number] [place] [address] 17766- 9391 Jan, [facility] [id number] [place] [address] 13131- 6790 Jan, [facility] [id number] [place] [address] 13103- 6251 Jan, [facility] [id number] [place] [address] 32222- 9484 Jan, [facility] [address], [place] [address]- 9701 Jan, [facility] [id number] [place] [address]- 8481 Nov, [facility] [place] [facility] [address] [id number] [place] [address]- 1993 Nov, [facility] [place] [facility] [address] [id number] [place] 6703 Oct, [facility] [place] [facility] [address] [id number] [place] [address]- 0922 Oct, [facility] [place] [facility] [address] [id number] [place] [address]- 9830 Sep, [facility] [place] [facility] [address] [id number] [place] [address]- 3059 Sep, [facility] [place] [facility] [address] [id number] [place] [address]- 7487 Aug, [facility] [place] [facility] [address] [id number] [place] [address]- 5537 Aug, [facility] [place] [facility] [address] [id number] [place] [address]- 8258 Aug, [facility] [place] [facility] [address] [id number] [place] [address]- 4698 Aug, [facility] [place] [facility] [address] [id number] [place] [address]- 4620 Aug, [facility] [place] [facility] [address] [id number] [place] [address]- 0193 Aug, [facility] [place] [facility] [address] [id number] [place] [address]- 7195 Aug, [facility] [place] [facility] [address] [id number] [place] [address]- 1350 Aug, [facility] [place] [facility] [address] [id number] [place] [address]- 9173 Jul, [facility] [place] [facility] [address] [id number] [place] [address]- 3392 Jul, [facility] [place] [facility] [address] [id number] [place] [address]- 5325 Jul, [facility] [place] [facility] [address] [id number] [place] [address]- 7495 Jul, [facility] [place] [facility] [address] [id number] [place] [address]- 8700 Jul, [facility] [place] [facility] [address] [id number] [place] [address]- 2548 Jul, [facility] [place] [facility] [address] [id number] [place] [address]- 4675 Jul, [facility] [place] [facility] [address] [id number] [place] [address]- 4109 Jul, [facility] [place] [facility] [address] [id number] [place] [address]- 0923 Jul, [facility] [place] [facility] [address] [id number] [place] [address]- 1749 June, [facility] [place] [facility] [address] [id number] [place] [address]- 5377 June, [facility] [place] [facility] [address] [id number] [place] [address]- 6851 May, [facility] [place] [facility] [address] [id number] [place] [address]- 4272 May, [facility] [place] [facility] [address] [id number] [place] [address]- 9745 May, [facility] [place] [facility] [address] [id number] [place] [address]- 6108 May, [facility] [place] [facility] [address] [id number] [place] [address]- 4340 May, [facility] [place] [facility] [address] [id number] [place] [address]- 7248 May, [facility] [place] [facility] [address] [id number] [place] [address]- 3799 May, [facility] [place] [facility] [address] [id number] [place] [address]- 7961 May, [facility] [place] [facility] [address] [id number] [place] [address]- 5106 May, [facility] [place] [facility] [address] [facility] [id number] [place] [address]- 9831 May, [facility] [place] [facility] [address] [id number] [place] [address] May, [facility] [place] [facility] [address] [id number] [place] [address] May, [facility] [place] [facility] [address] [id number] [place] [address] Apr, [facility] [place] [facility] [address] [id number] [place] [address] Apr, [facility] [place] [facility] [address] [id number] [place] [address] Apr, [facility] [place] [facility] [address] [id number] [place] [address] Apr, [facility] [place] [facility] [address] [id number] [place] [address] Mar, [facility] [place] [facility] [address] [id number] [place] [address] Mar, [facility] [place] [facility] [address] [id number] [place] [address] Mar, [facility] [place] [facility] [address] [id number] [place] [address] Mar, [facility] [place] [facility] [address] [id number] [place] [address] Mar, [facility] [place] [facility] [address] [facility][NOTE 3] [id number] [place] [address] Mar, [facility] [place] [facility] [address] [address] [id number] [place] [address] Mar, [facility] [place] [facility] [address] [id number] [place] [address] Mar, [facility] [place] [facility] [address] [id number] [place] [address] Mar, [facility] [place] [facility] [address] [id number] [place] [address] Mar, [facility] [place] [facility] [address] [id number] [place] [address] 14 Mar, 2013 [facility] [place] [facility] [address] [id number] [place] [address] 14 Mar, 2013 [facility] [place] [facility] [address] [facility]NOTE 3] [id number] [place] [address] Mar, [facility] [place] [facility] [address] [id number] [place] [address] Mar, [facility] [place] [facility] [address] [id number] [place] [address] Mar, [facility] [place] [facility] [address] [facility]NOTE 3] [id number] [place] [address] Mar, [facility] [place] [facility] [address] [facility]NOTE 3] [id number] [place] [address] Mar, [facility] [place] [facility] [address] [id number] [place] [address] Mar, [facility] [place] [facility] [address] [id number] [place] [address] Mar, [facility] [place] [facility] [address] [id number] [place] [address] Mar, [facility] [place] [facility] [address] [facility]NOTE 3] [id number] [place] [address]267 Feb, [facility] [place] [facility] [address] [id number] [place] [address] Feb, [facility] [address] [id number] [place] [address] Feb, [facility] [address] [id number] [place] [address] Feb, [facility] [address] [id number] [place] [address] Feb, [facility] [address] [id number] [place] [address] Feb, [facility] [address] [id number] [place] [address] Feb, [facility] [address] [id number] [place] [address] Feb, [facility] [address] [id number] [place] [address] Feb, [facility] [address] [id number] [place] [address]887 Feb, [facility] [address] [id number] [place] [address]247 Feb, [facility] [address] [id number] [place] [address]294 Feb, [facility] [address] [id number] [place] [address] 9530 Feb, [facility] [address] [id number] [place] [address] 58[address] Feb, [facility] [place] [facility] [address] [id number] [place] [address] 1749 Feb, [facility] [place] [facility] [address] [id number] [place] [address] Feb, [facility] [address] [id number] [place] [address]29 Feb, [facility] [address] [id number] [place] [address] 15 Feb, 2013 [facility] [place] [facility] [address] [id number] [place] [address]40 Feb, [facility] [place] [facility] [address] [id number] [place] [address] Feb, [facility] [place] [facility] [address] [id number] [place] [address] Feb, [facility] [place] [facility] [address] [id number] [place] [address] 1696 Feb, [facility] [place] [facility] [address] [id number] [place] [address]- [address] Feb, [facility] [place] [facility] [address] [id number] [place] [address]40 Jan, [facility] [place] [facility] [address] [id number] [place] [address]- [address] 24 Jan, 2013 [facility] [place] [facility] [address] [id number] [place] [address]- [address] 19 Jan, 2013 [facility] [place] [facility] [address] [id number] [place] [address]- [address] 18 Jan, 2013 [facility] [place] [facility] [address] [id number] [place] [address]- [address] 18 Jan, 2013 [facility] [place] [facility] [address] [id number], [place] [address] 18 Jan, 2013 [facility] [place] [facility] [address] [id number] [place] [address]- [address]46 18 Jan, 2013 [facility] [place] [facility] [address] [id number] [place] [address]- [address]678 17 Jan, 2013 [facility] [place] [facility] [address] [id number], [place] [address]- [address]40 17 Jan, 2013 [facility] [place] [facility] [address] [id number], [place] [address] 7975 Jan, [facility] [place] [facility] [address] [id number] [place] [address]- [address] Jan, [facility] [place] [facility] [address] [id number], [place] [address]- 42[address] Jan, [facility] [place] [facility] [address] [facility]NOTE 3] [id number] [place] Jan, [facility] [place] [facility] [address] [id number], [place] [address] Dec, [facility] [place] [facility] [address] [id number] [place] [address]- [address] Dec, [facility] [place] [facility] [address] [id number] [place] [address]157 Dec, [facility] [place] [facility] [address] [facility]NOTE 3] [id number], [place] [address]- [address] Dec, [facility] [place] [facility] [address] [id number], [place] [address] Dec, [facility] [place] [facility] [address] [facility]NOTE 3] [id number], [place] [address]- [address] Dec, [facility] [place] [facility] [address] [facility]NOTE 3] [id number], [place] [address] Nov, [facility] [place] [facility] [address] [id number], [place] [address] Nov, [facility] [place] [facility] [address] [id number], [place] [address]- [address] Nov, [facility] [place] [facility] [address] [id number], [place] [address] Nov, [facility] [place] [facility] [address] [facility]NOTE 3] [id number], [place] [address] Nov, [facility] [place] [facility] [address] [facility]NOTE 3] [id number], [place] [address]- 164[address] Nov, [facility] [place] [facility] [address] [id number], [place] [address] 28 Oct, 2012 [facility] [address] [id number], [place] [address] 27 Oct, 2012 [facility] [id number], [place] [address] 26 Oct, 2012 [facility] [id number], [place] [address] 25 Oct, 2012 [facility] [id number], [place] [address]86 25 Oct, 2012 [facility] [id number], [place] [address] 18 Oct, 2012 [facility] [address] [id number], [place] [address] 13 Oct, 2012 IMMUNIZATIONS No Known Immunizations SOCIAL HISTORY Never Assessed REASON FOR VISIT Results PLAN OF CARE VITAL SIGNS MEDICATIONS Unknown [...]
--- OUTSIDE RECORDS SUMMARY | 2018-03-19 20:16 | XMS REPORT ---
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 Bank Laboratory Professional Name Role Phone EMMY MITCHELLTA Unavailable PROBLEMS Type Condition ICD9-CM Code URC18-VF Code Onset Dates Condition Status SNOMED Code Problem ADHD (attention deficit hyperactivity disorder), combined type F90.2 Active 96392755 Problem Rhinitis, unspecified type J31.0 Active 53915163 Problem Depressive disorder, not elsewhere classified F32.9 Active 54921340 Problem Anxiety state F41.1 Active 854837806 Problem Unspecified mood [affective] disorder F39 Active 85675119 Problem Irritable bowel syndrome with diarrhea K58.0 Active 676294830 Problem Major depressive disorder, single episode, mild F32.0 Active 59898286 Problem Slow transit constipation K59.01 Active 27770178 Problem Plantar wart of right foot B07.0 Active [id number] Problem Anxiety disorder, unspecified type F41.9 Active 598860506 ALLERGIES No Known Allergies ENCOUNTERS Encounter Location Date Diagnosis [facility] [place] [id number] [place] [address] 39046- 3133 Mar, [facility] [place] [id number] [place] [address] 44120- 3973 Jan, [facility] [place] [id number] [place] [address] 91740- 8975 Jan, ADHD (attention deficit hyperactivity disorder), combined type F90.2 ; Anxiety disorder, unspecified type F41.9 and Unspecified mood [ affective] disorder F39 [facility] [place] [id number] [place] [address] 88364- 7045 Jan, Well woman exam with routine gynecological exam Z01.419 ; Routine screening for STI (sexually transmitted infection) Z11.3 and Vaginal jose B37.3 [facility] [place] [address] [address] Dec, [facility] [place] [id number] [address] 5[address] Dec, [facility] [place] [address] [address] Dec, ADHD (attention deficit hyperactivity disorder), combined type F90.2 ; Anxiety disorder, unspecified type F41.9 and Unspecified mood [ affective] disorder F39 [place] [id number] [address] Dec, Unspecified mood [affective] disorder F39 ; Anxiety disorder , unspecified type F41.9 and ADHD (attention deficit hyperactivity disorder), combined type F90.2 [facility] [id number] [address] Nov, Other specified bacterial agents as the cause of diseases classified elsewhere B96.89 and Otitis media, unspecified, bilateral H66.93 [facility] [id number] [address] Nov, Sore throat J02.9 and Acute nasopharyngitis J00 [facility] [place] [address] [address] Nov, ADHD (attention deficit hyperactivity disorder), combined type F90.2 ; Anxiety disorder, unspecified type F41.9 and Unspecified mood [ affective] disorder F39 [facility] [place] [id number] [address] Oct, ADHD (attention deficit hyperactivity disorder), combined type F90.2 [facility] [place] [address] [address] 3[address] Oct, ADHD (attention deficit hyperactivity disorder), combined type F90.2 ; Anxiety disorder, unspecified type F41.9 and Unspecified mood [ affective] disorder F39 [facility] [place] [id number] [address] 26[address] Sep, ADHD (attention deficit hyperactivity disorder), combined type F90.2 [facility] [place] [address] [address] 8[address] Sep, [facility] [place] [id number] [address] 07[address] Aug, ADHD (attention deficit hyperactivity disorder), combined type F90.2 ; Major depressive disorder, single episode, mild F32.0 and Anxiety disorder, unspecified type F41.9 [facility] [id number] [address] Aug, Sore throat J02.9 ; Other specified bacterial agents as the cause of diseases classified elsewhere B96.89 and Acute tonsillitis due to other specified organisms J03.80 [facility] [place] [id number] [address] 0[address] Aug, ADHD (attention deficit hyperactivity disorder), combined type F90.2 [facility] [place] [address] [address] 7[address] Jul, ADHD (attention deficit hyperactivity disorder), combined type F90.2 [facility] [place] [address], [place] [address] 7[address] June, ADHD (attention deficit hyperactivity disorder), combined type F90.2 ; Major depressive disorder, single episode, mild F32.0 and Anxiety disorder, unspecified type F41.9 [facility] [place] [address] [address] 5[address] June, [facility] [place] [address] [address] 1065 June, ADHD (attention deficit hyperactivity disorder), combined type F90.2 [facility] [place] [address] [address] 6[address] May, [facility] [place] [address] [address]- [address] May, ADHD (attention deficit hyperactivity disorder), combined type F90.2 ; Major depressive disorder, single episode, mild F32.0 and Anxiety disorder, unspecified type F41.9 [place] [id number] [place] [address] 94442- 4475 May, Anxiety disorder, unspecified type F41.9 [place] [id number] [place] [address] 47900- 2609 Apr, [place] [id number] [place] [address] 65894- 9084 Apr, Anxiety disorder, unspecified type F41.9 [place] [id number] [place] [address] 46429- 7799 Apr, Anxiety disorder, unspecified type F41.9 ; Major depressive disorder, single episode, mild F32.0 and ADHD (attention deficit hyperactivity disorder), combined type F90.2 [place] [id number] [place] [address] 79673- 0183 Apr, [place] [id number] [place] [address] 91207- 4917 Apr, ADHD (attention deficit hyperactivity disorder), combined type F90.2 ; Anxiety state F41.1 ; Depressive disorder, not elsewhere classified F32.9 ; Major depressive disorder, single episode, mild F32.0 and Anxiety disorder, unspecified type F41.9 [place] [id number] [place] [address] 10872- 0967 Mar, ADHD (attention deficit hyperactivity disorder), combined type F90.2 [place] [id number] [place] [address] 79469- 6819 Mar, Nausea R11.0 [place] [id number] [place] [address] 11785- 2642 13 Mar, 2017 Screening for STD sexually transmitted disease Z11.3 ; Vaginal candidiasis B37.3 and Irritable bowel syndrome with diarrhea K58.0 [place] [address], [place] [address] 6[address] Mar, [facility] [place] [address], [place] [address]- 3875 Feb, ADHD (attention deficit hyperactivity disorder), combined type F90.2 [facility] [place] [address], [place] [address] 99[address] Feb, Depressive disorder, not elsewhere classified F32.9 ; Anxiety state F41.1 and ADHD (attention deficit hyperactivity disorder), combined type F90.2 [place] [address] [address]- 9114 Feb, Depressive disorder, not elsewhere classified F32.9 ; Anxiety state F41.1 and ADHD (attention deficit hyperactivity disorder), combined type F90.2 [place] [address] [address]- 4373 Feb, ADHD (attention deficit hyperactivity disorder), combined type F90.2 [facility] [id number] [address] Jan, Other viral agents as the cause of diseases classified elsewhere B97.89 and Acute upper respiratory infection, unspecified J06.9 [place] [address], [place] [address]- 6081 Jan, ADHD (attention deficit hyperactivity disorder), combined type F90.2 ; Major depressive disorder, single episode, mild F32.0 and Anxiety disorder, unspecified type F41.9 [place] [id number] [address]- 3680 Jan, [facility] [place] [address], [place] [address]- 5358 Jan, ADHD (attention deficit hyperactivity disorder), combined type F90.2 ; Major depressive disorder, single episode, mild F32.0 and Anxiety disorder, unspecified type F41.9 [facility] [place] [id number] [place] [address] 01332- 8538 Dec, Irritable bowel syndrome with diarrhea K58.0 and Lower abdominal pain R10.30 [place] [id number] [place] [address] 42417- 9388 09 Dec, 2016 Hospital discharge follow-up Z09 ; Mesenteric adenitis I88.0 ; IBD (inflammatory bowel disease) K52.9 and Nausea R11.0 [place] [id number] [place] [address] 81543- 3371 Nov, ADHD (attention deficit hyperactivity disorder), combined type F90.2 ; Major depressive disorder, single episode, mild F32.0 and Anxiety disorder, unspecified type F41.9 [place] [id number] [place] [address] 79906- 7355 Nov, Anxiety state F41.1 ; ADHD (attention deficit hyperactivity disorder), combined type F90.2 ; Major depressive disorder, single episode, mild F32.0 and Anxiety disorder, unspecified type F41.9 [place] [id number] [place] [address] 82152- 7755 Oct, Anxiety state F41.1 ; ADHD (attention deficit hyperactivity disorder), combined type F90.2 ; Major depressive disorder, single episode, mild F32.0 and Anxiety disorder, unspecified type F41.9 [place] [id number] [place] [address] 66120- 2149 Oct, ADHD (attention deficit hyperactivity disorder), combined type F90.2 ; Major depressive disorder, single episode, mild F32.0 and Anxiety disorder, unspecified type F41.9 [place] [id number] [place] [address] 17631- 4445 Oct, Major depressive disorder, single episode, mild F32.0 ; Anxiety state F41.1 ; ADHD (attention deficit hyperactivity disorder), combined type F90.2 and Depressive disorder, not elsewhere classified F32.9 [facility] [id number] [place] [address] 24078 -3009 16 Oct, 2016 [facility] [id number] [place] [address] 45865 -2466 Oct, Cellulitis L03.90 and Plantar wart of right foot B07.0 [facility] [place] [id number] [place] [address] 38881- 8403 Aug, ADHD (attention deficit hyperactivity disorder), combined type F90.2 ; Major depressive disorder, single episode, mild F32.0 and Anxiety disorder, unspecified type F41.9 [facility] [place] [id number] [place] [address] 28452- 8628 Aug, [facility] [place] [address] 47167- 5216 Jul, ADHD (attention deficit hyperactivity disorder), combined type F90.2 [facility] [place] [id number] [place] [address] 83999- 5063 Jul, Mesenteric adenitis I88.0 [facility] [place] [id number] [place] [address] 75934- 4717 June, [facility] [id number] [place] [address] 96917 -3319 June, Lower abdominal pain R10.30 [facility] [place] [id number] [place] [address] 84877- 1611 June, [facility] [place] [id number] [place] [address] 83866- 4592 June, ADHD (attention deficit hyperactivity disorder), combined type F90.2 and Major depressive disorder, single episode, mild F32.0 [facility] [place] [id number] [place] [address] 81674- 7200 May, [facility] [place] [id number] [place] [address] 84421- 1870 May, ADHD (attention deficit hyperactivity disorder), combined type F90.2 and Major depressive disorder, single episode, mild F32.0 [facility] [id number] [place] [address] 84592 -5867 Apr, Abdominal pain R10.9 and Gastroenteritis and colitis, viral A08.4 [place] [address] 02337- 0798 Apr, [facility] [address] 07116 -8822 Mar, Acute urticaria L50.8 [place] [address] 72249- 3842 Mar, [place] [address] 45861- 6981 Feb, [facility] [address] 0[address] -0521 Feb, Gastroenteritis K52.9 [place] [address] 05040- 1924 Feb, Irritant contact dermatitis due to cosmetics L24.3 [place] [address] 67253- 4273 Jan, [place] [address] 62162- 8246 Jan, [place] [address] 05220- 7585 Jan, ADHD (attention deficit hyperactivity disorder), combined type F90.2 and Major depressive disorder, single episode, mild F32.0 [facility] [id number] [place] [address] 43065 -2231 Dec, Flexural eczema L20.82 [place] [address] 23292- 7111 Dec, Encounter for test Z32.00 [place] [address] 58030- 6776 Dec, [place] [id number] [place] [address] 18173- 3321 Dec, [facility] [place] [id number] [place] [address] 56676- 4548 Dec, [facility] [id number] [place] [address] 34822 -0236 Nov, Sore throat J02.9 and Pharyngitis, unspecified etiology J02.9 [facility] [place] [address] 03276- 6841 Nov, [facility] [place] [address] 54359- 1688 Nov, [facility] [place] [address] 16848- 3119 Nov, Generalized abdominal pain R10.84 and Slow transit constipation K59.01 [facility] [id number] [place] [address] [id number] Nov, Pharyngitis, unspecified etiology J02.9 and Rhinitis, unspecified type J31.0 [facility] [place] [id number] [place] [address] 02658- 9916 Oct, Depressive disorder, not elsewhere classified F32.9 and ADHD (attention deficit hyperactivity disorder), combined type F90.2 [facility] [place] [id number] [place] [address] 06067- 3333 Oct, [facility] [place] [id number] [place] [address] 10364- 4353 Oct, [facility] [id number] [place] [address] 44888 -3990 Oct, Strep throat J02.0 [facility] [place] [id number] [place] [address] 35701- 9479 16 Oct, 2015 [facility] [place] [id number] [place] [address] 39145- 7267 09 Sep, 2016 Well woman exam with routine gynecological exam Z01.419 and Screening for STD sexually transmitted disease Z11.3 [facility] [place] [address], [place] [address]- 0323 Sep, ADHD (attention deficit hyperactivity disorder), combined type F90.2 ; Anxiety state F41.1 and Depressive disorder, not elsewhere classified F32.9 [facility] [place] [id number] [place] [address] 86870- 1858 Sep, ADHD (attention deficit hyperactivity disorder), combined type F90.2 and Depressive disorder, not elsewhere classified F32.9 [facility] [place] [id number] [place] [address] 71748- 2854 Aug, [facility] [place] [id number] [place] [address] 73045- 9309 Aug, ADHD (attention deficit hyperactivity disorder), combined type F90.2 and Depressive disorder, not elsewhere classified F32.9 [facility] [place] [id number] [place] [address] 45340- 6300 Aug, ADHD (attention deficit hyperactivity disorder), combined type F90.2 ; Anxiety state F41.1 and Depressive disorder, not elsewhere classified F32.9 [facility] [place] [address], [place] [address]- 3833 Aug, [facility] [place] [address], [place] [address]- 2121 Aug, [facility] [place] [id number] [place] [address] 79720- 2724 Jul, ADHD (attention deficit hyperactivity disorder), combined type F90.2 ; Depressive disorder, not elsewhere classified F32.9 and Anxiety state F41.1 [facility] [place] [address], [place] [address]- 0755 Jul, [facility] [place] [address], [place] [address]- 4431 Jul, ADHD (attention deficit hyperactivity disorder), combined type F90.2 ; Anxiety state F41.1 and Depressive disorder, not elsewhere classified F32.9 [facility] [place] [id number] [address]- 9034 June, [facility] [id number] [place] [address] [phone] June, Constipation K59.00 [facility] [place] [id number] [place] [address] 49877- 9383 May, Constipation K59.00 [facility] [id number] [place] [address] 45894 -6397 May, Irritable bowel syndrome with diarrhea K58.0 [facility] [place] [id number] [place] [address] 40540- 0309 May, [facility] [place] [id number] [place] [address] 71416- 4293 May, [facility] [place] [id number] [place] [address] 73041- 7584 May, [facility] [place] [id number] [place] [address] 23000- 2538 May, [facility] [place] [id number] [place] [address] 28906- 3059 Jan, [facility] [place] [address] [address]- 3117 Jan, [facility] [place] [id number] [place] [address] 00509- 4452 Jan, [facility] [place] [address] [address]- 3596 Jan, [facility] [place] [id number] [place] [address] 09584- 5954 Jan, [facility] [place] [address] [address]- 6641 Jan, [facility] [place] [address] [place] [address]- 9067 Nov, [facility] [place] [facility] [address] [id number] [place] [address] Nov, [facility] [place] [facility] [address] [id number] [place] 6864 Oct, [facility] [place] [facility] [address] [id number] [place] [address]- 1575 Oct, [facility] [place] [facility] [address] [id number] [place] [address]- 2627 Sep, [facility] [place] [facility] [address] [id number] [place] [address]- 9813 Sep, [facility] [place] [facility] [address] [id number] [place] [address] Aug, [facility] [place] [facility] [address] [id number] [place] [address] Aug, [facility] [place] [facility] [address] [id number] [place] [address] Aug, [facility] [place] [facility] [address] [id number] [place] [address] Aug, [facility] [place] [facility] [address] [id number] [place] [address] Aug, [facility] [place] [facility] [address] [id number] [place] [address] Aug, [facility] [place] [facility] [address] [id number] [place] [address] Aug, [facility] [place] [facility] [address] [id number] [place] [id number] Aug, [facility] [place] [facility] [address] [id number] [place] [address] Jul, [facility] [place] [facility] [address] [id number] [place] [address] Jul, [facility] [place] [facility] [address] [id number] [place] [address] Jul, [facility] [place] [facility] [address] [id number] [place] [address] Jul, [facility] [place] [facility] [address] [id number] [place] [address] Jul, [facility] [place] [facility] [address] [id number] [place] [address] Jul, [facility] [place] [facility] [address] [id number] [place] [address] Jul, [facility] [place] [facility] [address] [id number] [place] [address] Jul, [facility] [place] [facility] [address] [id number] [place] [address] Jul, [facility] [place] [facility] [address] [id number] [place] [address] June, [facility] [place] [facility] [address] [id number] [place] [address] June, [facility] [place] [facility] [address] [id number] [place] [address] May, [facility] [place] [facility] [address] [id number] [place] [address] May, [facility] [place] [facility] [address] [id number] [place] [address] May, [facility] [place] [facility] [address] [id number] [place] [address]240 May, [facility] [place] [facility] [address] [id number] [place] [address] May, [facility] [place] [facility] [address] [id number] [place] [address] May, [facility] [place] [facility] [address] [id number] [place] [address] May, [facility] [place] [facility] [address] [id number] [place] [address] 86[address] May, [facility] [place] [facility] [address] [id number] [place] [address]- [address]84 May, [facility] [place] [facility] [address] [id number] [place] [address] May, [facility] [place] [facility] [address] [id number] [place] [address] 100[address] May, [facility] [place] [facility] [address] [id number] [place] [address] 1453 May, [facility] [place] [facility] [address] [id number] [place] [address] Apr, [facility] [place] [facility] [address] [id number] [place] [address] Apr, [facility] [place] [facility] [address] [id number] [place] [address]- [address] Apr, [facility] [place] [facility] [address] [id number] [place] [address] Apr, [facility] [place] [facility] [address] [id number] [place] [address] Mar, [facility] [place] [facility] [address] [id number] [place] [address]227 Mar, [facility] [place] [facility] [address] [id number] [place] [address] Mar, [facility] [place] [facility] [address] [id number] [place] [address] Mar, [facility] [place] [facility] [address] [id number] [place] [address]887 Mar, [facility] [place] [facility] [address] [facility] [id number] [place] [address] Mar, [facility] [place] [facility] [address] [id number] [place] [address] Mar, [facility] [place] [facility] [address] [id number] [place] [address] 4[address] Mar, [facility] [place] [facility] [address] [id number] [place] [address]666 Mar, [facility] [place] [facility] [address] [id number] [place] [address] 2541 Mar, [facility] [place] [facility] [address] [id number] [place] [address] 2543 Mar, [facility] [place] [facility] [address] [id number] [place] [address]- [address]16 14 Mar, 2013 [facility] [place] [facility] [address] [id number] [place] [address]- [address] Mar, [facility] [place] [facility] [address] [id number] [place] [address] 69[address] Mar, [facility] [place] [facility] [address] [id number] [place] [address] Mar, [facility] [place] [facility] [address] [id number] [place] [address] 0253 Mar, [facility] [place] [facility] [address] [id number] [place] [address] 3320 Mar, [facility] [place] [facility] [address] [id number] [place] [address]- 2542 Mar, [facility] [place] [facility] [address] [id number] [place] [address]- 2546 Mar, [facility] [place] [facility] [address] [id number] [place] [address]- 9731 Mar, [facility] [place] [facility] [address] [id number] [place] [address]- [address] Feb, [facility] [place] [facility] [address] [id number] [place] [address] 8188 Feb, [facility] [address] [id number] [place] [address] Feb, [facility] [address] [id number] [place] [address] 3817 Feb, [facility] [address] [id number] [place] [address]- 9027 Feb, [facility] [address] [id number] [place] [address]- [address] Feb, [facility] [address] [id number] [place] [address]- 3[address] Feb, [facility] [address] [id number] [place] [address] 1781 Feb, [facility] [address] [id number] [place] [address]- 9424 Feb, [facility] [address] [id number] [place] [address]- 3588 Feb, [facility] [address] [id number] [place] [address]- 2263 Feb, [facility] [address] [id number] [place] [address]- 0890 Feb, [facility] [address] [id number] [place] [address]- 7950 Feb, [facility] [address] [id number] [place] [address]- 4905 Feb, [facility] [place] [facility] [address] [id number] [place] [address]- 4178 Feb, [facility] [place] [facility] [address] [id number] [place] [address]- 7680 Feb, [facility] [address] [id number] [place] [address]- 3375 Feb, [facility] [address] [id number] [place] [address]- 0627 15 Feb, 2013 [facility] [place] [facility] [address] [id number] [place] [address]- 4556 Feb, [facility] [place] [facility] [address] [id number] [place] [address] Feb, [facility] [place] [facility] [address] [id number] [place] [address]- 8852 Feb, [facility] [place] [facility] [address] [id number] [place] [address]- 2518 Feb, [facility] [place] [facility] [address] [id number] [place] [address]- 2176 Feb, [facility] [place] [facility] [address] [id number] [place] [address]- 8178 Jan, [facility] [place] [facility] [address] [id number] [place] [address]- 2339 24 Jan, 2013 [facility] [place] [facility] [address] [id number] [place] [address]- 0279 19 Jan, 2013 [facility] [place] [facility] [address] [id number], [place] [address]- 9651 18 Jan, 2013 [facility] [place] [facility] [address] [id number], [place] [address]- 3101 18 Jan, 2013 [facility] [place] [facility] [address] [id number], [place] [address]- [address] 18 Jan, 2013 [facility] [place] [facility] [address] [id number] [place] [address]- 1430 18 Jan, 2013 [facility] [place] [facility] [address] [id number] [place] [address]- 1177 17 Jan, 2013 [facility] [place] [facility] [address] [id number] [address] 17 Jan, 2013 [facility] [place] [facility] [address] [id number], [place] [address]- 3426 Jan, [facility] [place] [facility] [address] [id number] [place] [address]- 8348 Jan, [facility] [place] [facility] [address] [id number], [place] [address]- 1475 Jan, [facility] [place] [facility] [address] [facility] [id number], [place] [address]- 9026 Jan, [facility] [place] [facility] [address] [id number], [place] [address]- 2496 Dec, [facility] [place] [facility] [address] [facility] [id number], [place] [address]- 6311 Dec, [facility] [place] [facility] [address] [id number], [place] [address]- 8761 Dec, [facility] [address] [facility] [id number], [place] [address]- 0810 Dec, [facility] [place] [facility] [address] [id number], [place] [address]- 9631 Dec, [facility] [place] [facility] [address] [facility] [id number], [place] [address]- 0119 Dec, [facility] [place] [facility] [address] [facility] [id number], [place] [address]- 4347 Nov, [facility] [place] [facility] [address] [id number], [place] [address]- 8401 Nov, [facility] [place] [facility] [address] [id number], [place] [address]- 9948 Nov, [facility] [place] [facility] [address] [id number], [place] [address]- 1833 Nov, [facility] [place] [facility] [address] [facility] [id number], [place] [address]- 7559 Nov, [facility] [place] [facility] [address] [facility] [id number], [place] [address]- 9186 Nov, [facility] [place] [facility] [address] [id number], [place] [address]- [address]21 28 Oct, 2012 [facility] [place] [address] [id number], [place] [address]- [address] Oct, [facility] [place] [id number], [place] [address]- [address] Oct, 2012 [facility] [place] [address] [id number], [place] [address]- 2859 Oct, [facility] [place] [address] [id number], [place] [address]- 1241 Oct, [facility] [place] [id number], [place] [address]- 3979 Oct, [facility] [place] [address] [id number], [place] [address]- 1838 Oct, IMMUNIZATIONS No Known Immunizations SOCIAL HISTORY Never Assessed REASON FOR VISIT Annual physical (female) Dania Joseph MA PLAN OF CARE Activity Details Follow Up 1 Year or as indicated by labs Reason:WWE Pending Test PAP REFLEX TO HPV IF ASCUS VITAL SIGNS Height 59 in 2018-01-24 Weight 137.0 lbs 2018-01-24 Temperature 96.2 degrees Fahrenheit 2018-01-24 Heart Rate 86 bpm 2018-01-24 Respiratory Rate 18 2018-01-24 BMI 27.67 kg/m2 2018-01-24 Blood pressure systolic 110 mmHg 2018-01-24 Blood pressure diastolic 70 mmHg 2018-01-24 MEDICATIONS Medication Instructions Dosage Frequency Start Date End Date Duration Status Trileptal 300 MG Orally Twice a day 1 tablet 12h Oct, 30 days Active HydrOXYzine HCl 25 MG Orally three times a day as needed for anxiety 1 tablet Jan, Active Fluconazole 150 MG Orally one time 1 tablet Jan, 1 dose Active Concerta 27 MG Orally Once a day in the morning 1 tablet Dec, 28 days Active RESULTS No Results PROCEDURES Procedure Date Ordered Result Body Site SPECIMEN HANDLING Jan 24, 2018 Bacterial Vaginosis In House Jan 24, 2018 LAB NOT BILLED BY [facility] Jan 24, 2018 INSTRUCTIONS MEDICATIONS ADMINISTERED No Known Medications MEDICAL [...]
--- OUTSIDE RECORDS SUMMARY | 2018-03-19 20:17 | XMS REPORT ---
Author Author HARIKA RODRIGUEZ [facility] Address [address] [place] [address] Care Team Providers Care Product Marketing Coordinator Name Role Phone JENNIFERHARIKA Unavailable PROBLEMS Type Condition ICD9-CM Code [id number] Code Onset Dates Condition Status SNOMED Code Problem ADHD (attention deficit hyperactivity disorder), combined type F90.2 Active 87525107 Problem Rhinitis, unspecified type J31.0 Active 94551191 Problem Depressive disorder, not elsewhere classified F32.9 Active 12220411 Problem Anxiety state F41.1 Active 255092526 Problem Unspecified mood [affective] disorder F39 Active 49862890 Problem Irritable bowel syndrome with diarrhea K58.0 Active 149935629 Problem Major depressive disorder, single episode, mild F32.0 Active 25547516 Problem Slow transit constipation K59.01 Active 30177505 Problem Plantar wart of right foot B07.0 Active [id number] Problem Anxiety disorder, unspecified type F41.9 Active 939992830 ALLERGIES No Information ENCOUNTERS Encounter Location Date Diagnosis [place] [id number] [place] [address] 89884- 7472 Mar, [facility] [id number] [place] [address] 02174- 6029 Jan, ADHD (attention deficit hyperactivity disorder), combined type F90.2 ; Anxiety disorder, unspecified type F41.9 and Unspecified mood [ affective] disorder F39 [facility] [id number] [place] [address] 42253- 1925 Jan, Well woman exam with routine gynecological exam Z01.419 ; Routine screening for STI (sexually transmitted infection) Z11.3 and Vaginal jose B37.3 [facility] [id number] [place] [address] 51424- 4959 Dec, [facility] [id number] [address] 2095 Dec, [facility] [id number] [place] [address] 83285- 2007 Dec, ADHD (attention deficit hyperactivity disorder), combined type F90.2 ; Anxiety disorder, unspecified type F41.9 and Unspecified mood [ affective] disorder F39 [place] [id number] [place] [address] 58796- 5474 Dec, Unspecified mood [affective] disorder F39 ; Anxiety disorder , unspecified type F41.9 and ADHD (attention deficit hyperactivity disorder), combined type F90.2 [facility] [id number] [place] [address] 04748 -6885 Nov, Other specified bacterial agents as the cause of diseases classified elsewhere B96.89 and Otitis media, unspecified, bilateral H66.93 [facility] [id number] [place] [address] 41433 -0613 Nov, Sore throat J02.9 and Acute nasopharyngitis J00 [place] [id number] [place] [address] 33704- 1590 Nov, ADHD (attention deficit hyperactivity disorder), combined type F90.2 ; Anxiety disorder, unspecified type F41.9 and Unspecified mood [ affective] disorder F39 [place] [id number] [place] [address] 35906- 8246 Oct, ADHD (attention deficit hyperactivity disorder), combined type F90.2 [place] [id number] [address]- 7973 Oct, ADHD (attention deficit hyperactivity disorder), combined type F90.2 ; Anxiety disorder, unspecified type F41.9 and Unspecified mood [ affective] disorder F39 [facility] [id number] [address]- 1258 Sep, ADHD (attention deficit hyperactivity disorder), combined type F90.2 [facility] [id number] [address] 4464 Sep, [facility] [id number] [address]- 7904 Aug, ADHD (attention deficit hyperactivity disorder), combined type F90.2 ; Major depressive disorder, single episode, mild F32.0 and Anxiety disorder, unspecified type F41.9 [facility] [id number], [place] [address] Aug, Sore throat J02.9 ; Other specified bacterial agents as the cause of diseases classified elsewhere B96.89 and Acute tonsillitis due to other specified organisms J03.80 [facility] [id number] [address]- 8417 Aug, ADHD (attention deficit hyperactivity disorder), combined type F90.2 [facility] [id number] [address]- 0284 Jul, ADHD (attention deficit hyperactivity disorder), combined type F90.2 [facility] [id number] [address]- 5396 June, ADHD (attention deficit hyperactivity disorder), combined type F90.2 ; Major depressive disorder, single episode, mild F32.0 and Anxiety disorder, unspecified type F41.9 [facility] [id number] [address]- 2813 June, [facility] [id number] [address]- 6948 June, ADHD (attention deficit hyperactivity disorder), combined type F90.2 [facility] [id number] [address]- 2611 May, [facility] [id number], [place] [address]- 2111 May, ADHD (attention deficit hyperactivity disorder), combined type F90.2 ; Major depressive disorder, single episode, mild F32.0 and Anxiety disorder, unspecified type F41.9 [facility] [id number] [address]- 2693 May, Anxiety disorder, unspecified type F41.9 [facility] [id number] [address]- 6491 Apr, [facility] [id number] [place] [address] 14930- 7903 Apr, Anxiety disorder, unspecified type F41.9 [place] [id number] [place] [address] 49314- 7048 Apr, Anxiety disorder, unspecified type F41.9 ; Major depressive disorder, single episode, mild F32.0 and ADHD (attention deficit hyperactivity disorder), combined type F90.2 [place] [id number] [place] [address] 65072- 4725 Apr, [place] [id number] [place] [address] 31967- 5746 Apr, ADHD (attention deficit hyperactivity disorder), combined type F90.2 ; Anxiety state F41.1 ; Depressive disorder, not elsewhere classified F32.9 ; Major depressive disorder, single episode, mild F32.0 and Anxiety disorder, unspecified type F41.9 [place] [id number] [address]- 2723 Mar, ADHD (attention deficit hyperactivity disorder), combined type F90.2 [place] [id number] [place] [address] 81911- 7591 Mar, Nausea R11.0 [place] [id number] [place] [address] 72937- 8697 13 Mar, 2017 Screening for STD sexually transmitted disease Z11.3 ; Vaginal candidiasis B37.3 and Irritable bowel syndrome with diarrhea K58.0 [place] [id number] [place] [address] 59786- 0635 Mar, [facility] [id number] [address]- 9238 Feb, ADHD (attention deficit hyperactivity disorder), combined type F90.2 [facility] [id number] [address]- 6447 Feb, Depressive disorder, not elsewhere classified F32.9 ; Anxiety state F41.1 and ADHD (attention deficit hyperactivity disorder), combined type F90.2 [place] [id number] [place] [address] 38355- 1934 Feb, Depressive disorder, not elsewhere classified F32.9 ; Anxiety state F41.1 and ADHD (attention deficit hyperactivity disorder), combined type F90.2 [place] [id number] [address]- 2491 Feb, ADHD (attention deficit hyperactivity disorder), combined type F90.2 [facility] [id number], [place] [address] Jan, Other viral agents as the cause of diseases classified elsewhere B97.89 and Acute upper respiratory infection, unspecified J06.9 [place] [id number] [place] [address] 75919- 6627 Jan, ADHD (attention deficit hyperactivity disorder), combined type F90.2 ; Major depressive disorder, single episode, mild F32.0 and Anxiety disorder, unspecified type F41.9 [place] [id number] [address]- 6624 Jan, [facility] [id number] [address]- 0475 Jan, ADHD (attention deficit hyperactivity disorder), combined type F90.2 ; Major depressive disorder, single episode, mild F32.0 and Anxiety disorder, unspecified type F41.9 [facility] [id number] [address]- 2340 Dec, Irritable bowel syndrome with diarrhea K58.0 and Lower abdominal pain R10.30 [place] [id number] [place] [address] 70524- 7016 09 Dec, 2016 Hospital discharge follow-up Z09 ; Mesenteric adenitis I88.0 ; IBD (inflammatory bowel disease) K52.9 and Nausea R11.0 [place] [id number] [place] [address] 20887- 4444 Nov, ADHD (attention deficit hyperactivity disorder), combined type F90.2 ; Major depressive disorder, single episode, mild F32.0 and Anxiety disorder, unspecified type F41.9 [place] [id number] [place] [address] 47421- 8353 Nov, Anxiety state F41.1 ; ADHD (attention deficit hyperactivity disorder), combined type F90.2 ; Major depressive disorder, single episode, mild F32.0 and Anxiety disorder, unspecified type F41.9 [place] [id number] [place] [address] 66594- 1970 Oct, Anxiety state F41.1 ; ADHD (attention deficit hyperactivity disorder), combined type F90.2 ; Major depressive disorder, single episode, mild F32.0 and Anxiety disorder, unspecified type F41.9 [place] [id number] [place] [address] 26912- 0375 Oct, ADHD (attention deficit hyperactivity disorder), combined type F90.2 ; Major depressive disorder, single episode, mild F32.0 and Anxiety disorder, unspecified type F41.9 [place] [id number] [place] [address] 37497- 6887 Oct, Major depressive disorder, single episode, mild F32.0 ; Anxiety state F41.1 ; ADHD (attention deficit hyperactivity disorder), combined type F90.2 and Depressive disorder, not elsewhere classified F32.9 [facility] [id number] [place] [address] 23724 -8882 16 Oct, 2016 [facility] [id number] [place] [address] 05817 -2674 Oct, Cellulitis L03.90 and Plantar wart of right foot B07.0 [facility] [id number] [place] [address] 90341- 0933 Aug, ADHD (attention deficit hyperactivity disorder), combined type F90.2 ; Major depressive disorder, single episode, mild F32.0 and Anxiety disorder, unspecified type F41.9 [facility] [id number] [place] [address] 38856- 8424 Aug, [facility] [id number] [place] [address] 44405- 9813 Jul, ADHD (attention deficit hyperactivity disorder), combined type F90.2 [place] [id number] [place] [address] 61914- 4036 Jul, Mesenteric adenitis I88.0 [place] [id number] [place] [address] 32453- 9184 June, [facility] [id number] [place] [address] 94358 -8745 June, Lower abdominal pain R10.30 [facility] [id number] [place] [address] 88130- 1589 June, [facility] [id number] [place] [address] 72644- 4546 June, ADHD (attention deficit hyperactivity disorder), combined type F90.2 and Major depressive disorder, single episode, mild F32.0 [facility] [id number] [place] [address] 30658- 6176 May, [facility] [id number] [place] [address] 44355- 9963 May, ADHD (attention deficit hyperactivity disorder), combined type F90.2 and Major depressive disorder, single episode, mild F32.0 [facility] [id number] [place] [address] 12651 -0072 Apr, Abdominal pain R10.9 and Gastroenteritis and colitis, viral A08.4 [facility] [id number] [place] [address] 28210- 9980 Apr, [facility] [address] 78055 -8485 Mar, Acute urticaria L50.8 [place] [address] 23051- 2792 Mar, [facility] [address] 28668- 5661 Feb, [facility] [address] 76026 -0985 Feb, Gastroenteritis K52.9 [place] [address] 77875- 8968 Feb, Irritant contact dermatitis due to cosmetics L24.3 [place] [address] 35197- 2562 Jan, [facility] [address] 92375- 5123 Jan, [place] [address] 24619- 9792 Jan, ADHD (attention deficit hyperactivity disorder), combined type F90.2 and Major depressive disorder, single episode, mild F32.0 [facility] [address] 22736 -9379 Dec, Flexural eczema L20.82 [place] [address] 98515- 2381 Dec, Encounter for test Z32.00 [place] [address] 90072- 5683 Dec, [place] [address] 91088- 5923 Dec, [place] [id number] [address]- 7710 Dec, [facility] [id number] [place] [address] 78085 -5873 Nov, Sore throat J02.9 and Pharyngitis, unspecified etiology J02.9 [facility] [id number] [place] [address] 27527- 9736 Nov, [facility] [id number] [place] [address] 76451- 5169 Nov, [facility] [address] 05773- 5089 Nov, Generalized abdominal pain R10.84 and Slow transit constipation K59.01 [facility] [id number] [place] [address] [id number] Nov, Pharyngitis, unspecified etiology J02.9 and Rhinitis, unspecified type J31.0 [facility] [id number] [place] [address] 03388- 4862 Oct, Depressive disorder, not elsewhere classified F32.9 and ADHD (attention deficit hyperactivity disorder), combined type F90.2 [facility] [id number] [place] [address] 61480- 2104 Oct, [facility] [id number] [place] [address] 38684- 9397 Oct, [facility] [id number] [place] [address] 98634 -8505 Oct, Strep throat J02.0 [facility] [id number] [place] [address] 31250- 2588 16 Oct, 2015 [facility] [id number] [place] [address] 57612- 6329 09 Oct, 2016 Well woman exam with routine gynecological exam Z01.419 and Screening for STD sexually transmitted disease Z11.3 [facility] [id number] [address]- 2703 Sep, ADHD (attention deficit hyperactivity disorder), combined type F90.2 ; Anxiety state F41.1 and Depressive disorder, not elsewhere classified F32.9 [facility] [id number] [address]- 5619 Sep, ADHD (attention deficit hyperactivity disorder), combined type F90.2 and Depressive disorder, not elsewhere classified F32.9 [facility] [id number] [address]- 9233 Aug, [facility] [id number] [address]- 4533 Aug, ADHD (attention deficit hyperactivity disorder), combined type F90.2 and Depressive disorder, not elsewhere classified F32.9 [facility] [id number] [address]- 5151 Aug, ADHD (attention deficit hyperactivity disorder), combined type F90.2 ; Anxiety state F41.1 and Depressive disorder, not elsewhere classified F32.9 [facility] [id number] [address]- 5182 Aug, [facility] [id number] [address]- 6261 Aug, [facility] [id number] [address]- 1793 Jul, ADHD (attention deficit hyperactivity disorder), combined type F90.2 ; Depressive disorder, not elsewhere classified F32.9 and Anxiety state F41.1 [facility] [id number] [address]- 5019 Jul, [facility] [id number] [address]- 1781 Jul, ADHD (attention deficit hyperactivity disorder), combined type F90.2 ; Anxiety state F41.1 and Depressive disorder, not elsewhere classified F32.9 [facility] [id number] [address]- 7776 June, [facility] [id number] [address] June, Constipation K59.00 [facility] [address] [place] [address]- 6238 28 May, 2015 Constipation K59.00 [facility] [address] [place] [address] -0945 20 May, 2015 Irritable bowel syndrome with diarrhea K58.0 [facility] [id number] [place] [address]- 7086 15 May, 2015 [facility] [address] [place] [address] 99160- 5392 15 May, 2015 [facility] [id number] [address]- 6208 14 May, 2014 [facility] [id number] [address]- 1579 May, [facility] [id number] [address]- 8059 Jan, [facility] [id number] [address]- 1082 Jan, [facility] [id number] [address]- 5353 Jan, [facility] [id number] [address]- 7711 Jan, [facility] [id number] [address]- 6437 Jan, [facility] [id number]- 1911 Jan, [facility] [id number] [address]- 9319 Nov, [facility] [id number] [place] [address]- 7161 Nov, [facility] [place] [facility] [address] [id number] [place] [address]- 3574 Oct, [facility] [place] [facility] [address] [id number] [place] [address]- 8436 Oct, [facility] [place] [facility] [address] [id number] [place] [address]- 2658 Sep, [facility] [place] [facility] [address] [id number] [place] [address]- 5553 Sep, [facility] [place] [facility] [address] [id number] [place] [address]- 9717 Aug, [facility] [place] [facility] [address] [id number] [place] [address]- 9420 Aug, [facility] [place] [facility] [address] [id number] [place] [address]- 9165 Aug, [facility] [place] [facility] [address] [id number] [place] [address]- 7088 Aug, [facility] [place] [facility] [address] [id number] [place] [address]- 4202 Aug, [facility] [place] [facility] [address] [id number] [place] [address]- 0824 Aug, [facility] [place] [facility] [address] [id number] [place] [address]- 6044 Aug, [facility] [place] [facility] [address] [id number] [place] [address]- 1407 Aug, [facility] [place] [facility] [address] [id number] [place] [address]- 7343 Jul, [facility] [place] [facility] [address] [id number] [place] [address]- 3574 Jul, [facility] [place] [facility] [address] [id number] [place] [address]- 1044 Jul, [facility] [place] [facility] [address] [id number] [place] [address]- 9568 Jul, [facility] [place] [facility] [address] [id number] [place] [address]- 3719 Jul, [facility] [place] [facility] [address] [id number] [place] [address]- 1030 Jul, [facility] [place] [facility] [address] [id number] [place] [address]- 9722 Jul, [facility] [place] [facility] [address] [id number] [place] [address]- 2134 Jul, [facility] [place] [facility] [address] [id number] [place] [address]- 8655 Jul, [facility] [place] [facility] [address] [id number] [place] [address]- 0486 June, [facility] [place] [facility] [address] [id number] [place] [address]- 6750 June, [facility] [place] [facility] [address] [id number] [place] [address]- 1712 May, [facility] [place] [facility] [address] [id number] [place] [address]- 9163 May, [facility] [place] [facility] [address] [id number] [place] [address]- 8223 May, [facility] [place] [facility] [address] [id number], [place] [address]- 1761 May, [facility] [place] [facility] [address] [id number] [place] [address]- 3489 May, [facility] [place] [facility] [address] [id number] [place] [address]- 1510 May, [facility] [place] [facility] [address] [id number] [place] [address]- 1748 14 May, 2013 [facility] [place] [facility] [address] [id number] [place] [address]- 4961 May, [facility] [place] [facility] [address] [id number] [place] [address]- 2293 May, [facility] [place] [facility] [address] [id number] [place] [address]- 4800 May, [facility] [place] [facility] [address] [id number] [place] [address]- 9874 May, [facility] [place] [facility] [address] [id number] [place] [address]- 2886 May, [facility] [place] [facility] [address] [id number] [place] [address]- 2781 Apr, [facility] [place] [facility] [address] [id number] [place] [address]- 2430 Apr, [facility] [place] [facility] [address] [facility] [id number] [place] [address] Apr, [facility] [place] [facility] [address] [facility] [id number] [place] [address] Apr, [facility] [place] [facility] [address] [facility] [id number] [place] [address] Mar, [facility] [place] [facility] [address] [facility] [id number] [place] [address] Mar, [facility] [place] [facility] [address] [facility] [id number] [place] [address] Mar, [facility] [place] [facility] [address] [facility] [id number] [place] [address] Mar, [facility] [place] [facility] [address] [id number] [place] [address] Mar, [facility] [place] [facility] [address] [id number] [place] [address] Mar, [facility] [place] [facility] [address] [facility] [id number] [place] [address] Mar, [facility] [place] [facility] [address] [id number] [place] [address] Mar, [facility] [place] [facility] [address] [id number] [place] [address] Mar, [facility] [place] [facility] [address] [id number] [place] [address] Mar, [facility] [place] [facility] [address] [id number] [place] [address] Mar, [facility] [place] [facility] [address] [id number] [place] [address] Mar, [facility] [place] [facility] [address] [id number] [place] [address] Mar, [facility] [place] [facility] [address] [facility] [id number] [place] [address] Mar, [facility] [place] [facility] [address] [id number] [place] [address] Mar, [facility] [place] [facility] [address] [id number] [place] [address] Mar, [facility] [place] [facility] [address] [id number] [place] [address] Mar, [facility] [place] [facility] [address] [id number] [place] [address] Mar, [facility] [place] [facility] [address] [id number] [place] [address]99 Mar, [facility] [place] [facility] [address] [id number] [place] [address] Mar, [facility] [place] [facility] [address] [id number] [place] [address] Feb, [facility] [place] [facility] [address] [facility] [id number] [place] [address] Feb, [facility] [place] [facility] [address] [id number] [place] [address] Feb, [facility] [place] [facility] [address] [id number] [place] [address] Feb, [facility] [place] [facility] [address] [id number] [place] [address] Feb, [facility] [place] [facility] [address] [id number] [place] [address] Feb, [facility] [place] [facility] [address] [id number] [place] [address] Feb, [facility] [place] [facility] [address] [id number] [place] [address] Feb, [facility] [place] [facility] [address] [id number] [place] [address] Feb, [facility] [place] [facility] [address] [id number] [place] [address] 7667 Feb, [facility] [place] [facility] [address] [id number] [place] [address] Feb, [facility] [place] [facility] [address] [id number] [place] [address] Feb, [facility] [place] [facility] [address] [id number] [place] [address] Feb, [facility] [place] [facility] [address] [id number] [place] [address]76 Feb, [facility] [place] [facility] [address] [id number] [place] [address]227 Feb, [facility] [place] [facility] [address] [id number] [place] [address] 1736 Feb, [facility] [place] [facility] [address] [id number] [place] [address]- 8069 Feb, [facility] [place] [facility] [address] [id number] [place] [address] 15 Feb, 2013 [facility] [place] [facility] [address] [id number] [place] [address]- [address] 15 Feb, 2013 [facility] [place] [facility] [address] [id number] [place] [address]- [address]691 Feb, [facility] [place] [facility] [address] [id number] [place] [address]15 Feb, [facility] [place] [facility] [address] [id number] [place] [address]- 4692 Feb, [facility] [place] [facility] [address] [id number] [place] [address]83 Feb, [facility] [place] [facility] [address] [id number] [place] [address] Jan, [facility] [place] [facility] [address] [id number] [place] [address]- [address] 24 Jan, 2013 [facility] [place] [facility] [address] [id number] [place] [address] Jan, [facility] [place] [facility] [address] [id number] [place] [address] 18 Jan, 2013 [facility] [place] [facility] [address] [id number] [place] [address] 18 Jan, 2013 [facility] [place] [facility] [address] [id number] [place] [address]196 18 Jan, 2013 [facility] [place] [facility] [address] [id number], [place] [address] 18 Jan, 2013 [facility] [place] [facility] [address] [id number] [place] [address]- [address] 17 Jan, 2013 [facility] [place] [facility] [address] [id number] [place] [address] 17 Jan, 2013 [facility] [place] [facility] [address] [id number] [place] [address]- [address] 2013 [facility] [place] [facility] [address] [id number] [place] [address]- [address] Jan, [facility] [address] [id number] [place] [address] Jan, [facility] [place] [facility] [address] [id number] [place] [address] 7[address] Jan, [facility] [place] [facility] [address] [id number] [place] [address]- 1074 Dec, [facility] [place] [facility] [address] [id number] [place] [address]- [address] Dec, [facility] [place] [facility] [address] [id number] [place] [address] Dec, [facility] [place] [facility] [address] [id number] [place] [address]- [address]32 Dec, [facility] [address] [id number] [place] [address] Dec, [facility] [place] [facility] [address] [id number] [place] [address]- [address]951 Dec, [facility] [place] [facility] [address] [id number] [place] [address] Nov, [facility] [place] [facility] [address] [id number] [place] [address]- [address] Nov, [facility] [place] [facility] [address] [id number] [place] [address]- 1791 Nov, [facility] [place] [facility] [address] [id number], [place] [address] Nov, [facility] [place] [facility] [address] [id number] [place] [address] 2456 Nov, [facility] [place] [facility] [address] [id number] [place] [address]60 Nov, [facility] [place] [facility] [address] [id number], [place] [address] Oct, [facility] [address] [id number], [place] [address] 27 Oct, 2012 [facility] [address] [id number], [place] [address] 26 Oct, 2012 [facility] [id number], [place] [address] Oct, [facility] [id number], [place] [address] Oct, [facility] [id number], [place] [address] 18 Oct, 2012 [facility] [id number], [place] [address] 13 Oct, 2012 IMMUNIZATIONS No Known Immunizations [...]
--- OUTSIDE RECORDS SUMMARY | 2018-03-19 20:17 | XMS REPORT ---
Author Author HARIKA RODRIGUEZ [facility] Address [address] [place] [address] Care Team Providers Care [place] R[employer] Name Role Phone JENNIFERHARIKA Unavailable PROBLEMS Type Condition ICD9-CM Code INU42-CC Code Onset Dates Condition Status SNOMED Code Problem ADHD (attention deficit hyperactivity disorder), combined type F90.2 Active 59524063 Problem Rhinitis, unspecified type J31.0 Active 00216932 Problem Depressive disorder, not elsewhere classified F32.9 Active 67236342 Problem Anxiety state F41.1 Active 526840879 Problem Unspecified mood [affective] disorder F39 Active 63205288 Problem Irritable bowel syndrome with diarrhea K58.0 Active 723825735 Problem Major depressive disorder, single episode, mild F32.0 Active 31886732 Problem Slow transit constipation K59.01 Active 79273457 Problem Plantar wart of right foot B07.0 Active [id number] Problem Anxiety disorder, unspecified type F41.9 Active 311168514 ALLERGIES No Known Allergies ENCOUNTERS Encounter Location Date Diagnosis [place] [id number] [place] [address] 25522- 5270 Mar, [facility] [id number] [place] [address] 03734- 7273 Jan, ADHD (attention deficit hyperactivity disorder), combined type F90.2 ; Anxiety disorder, unspecified type F41.9 and Unspecified mood [ affective] disorder F39 [facility] [id number] [place] [address] 37684- 4489 Jan, Well woman exam with routine gynecological exam Z01.419 ; Routine screening for STI (sexually transmitted infection) Z11.3 and Vaginal jose B37.3 [facility] [id number] [place] [address] 58746- 4531 Dec, [facility] [address] [address] 6166 Dec, [facility] [id number] [place] [address] 27089- 7537 Dec, ADHD (attention deficit hyperactivity disorder), combined type F90.2 ; Anxiety disorder, unspecified type F41.9 and Unspecified mood [ affective] disorder F39 [place] [id number] [place] [address] 26937- 1225 Dec, Unspecified mood [affective] disorder F39 ; Anxiety disorder , unspecified type F41.9 and ADHD (attention deficit hyperactivity disorder), combined type F90.2 [facility] [id number] [place] [address]14 [address] Nov, Other specified bacterial agents as the cause of diseases classified elsewhere B96.89 and Otitis media, unspecified, bilateral H66.93 [facility] [address] [address] Nov, Sore throat J02.9 and Acute nasopharyngitis J00 [place] [id number] [place] [address] 72402- 4032 Nov, ADHD (attention deficit hyperactivity disorder), combined type F90.2 ; Anxiety disorder, unspecified type F41.9 and Unspecified mood [ affective] disorder F39 [place] [address] [address] 2454 Oct, ADHD (attention deficit hyperactivity disorder), combined type F90.2 [facility] [id number] [address] 8864 Oct, ADHD (attention deficit hyperactivity disorder), combined type F90.2 ; Anxiety disorder, unspecified type F41.9 and Unspecified mood [ affective] disorder F39 [facility] [address] [address] 5472 Sep, ADHD (attention deficit hyperactivity disorder), combined type F90.2 [facility] [id number] [address] 6970 Sep, [facility] [address] [address] 0433 Aug, ADHD (attention deficit hyperactivity disorder), combined type F90.2 ; Major depressive disorder, single episode, mild F32.0 and Anxiety disorder, unspecified type F41.9 [facility] [address] [address] Aug, Sore throat J02.9 ; Other specified bacterial agents as the cause of diseases classified elsewhere B96.89 and Acute tonsillitis due to other specified organisms J03.80 [facility] [address] [address] 1103 Aug, ADHD (attention deficit hyperactivity disorder), combined type F90.2 [facility] [address] [address] 8307 Jul, ADHD (attention deficit hyperactivity disorder), combined type F90.2 [facility] [id number] [address] 3[address] June, ADHD (attention deficit hyperactivity disorder), combined type F90.2 ; Major depressive disorder, single episode, mild F32.0 and Anxiety disorder, unspecified type F41.9 [facility] [id number] [address] 4908 June, [facility] [id number] [address] 7030 June, ADHD (attention deficit hyperactivity disorder), combined type F90.2 [facility] [address] [address] 77[address] May, [facility] [id number] [address] 9364 May, ADHD (attention deficit hyperactivity disorder), combined type F90.2 ; Major depressive disorder, single episode, mild F32.0 and Anxiety disorder, unspecified type F41.9 [facility] [address] [address] 6199 May, Anxiety disorder, unspecified type F41.9 [facility] [address] [address]- 6551 Apr, [facility] [id number] [place] [address] 19451- 4822 Apr, Anxiety disorder, unspecified type F41.9 [place] [id number] [place] [address] 10738- 2763 Apr, Anxiety disorder, unspecified type F41.9 ; Major depressive disorder, single episode, mild F32.0 and ADHD (attention deficit hyperactivity disorder), combined type F90.2 [place] [id number] [place] [address] 88028- 3846 Apr, [facility] [id number] [place] [address] 94843- 6663 Apr, ADHD (attention deficit hyperactivity disorder), combined type F90.2 ; Anxiety state F41.1 ; Depressive disorder, not elsewhere classified F32.9 ; Major depressive disorder, single episode, mild F32.0 and Anxiety disorder, unspecified type F41.9 [place] [address] [address]- 4961 Mar, ADHD (attention deficit hyperactivity disorder), combined type F90.2 [place] [id number] [place] [address] 85318- 6080 20 Mar, 2017 Nausea R11.0 [place] [id number] [place] [address] 82421- 9208 13 Mar, 2017 Screening for STD sexually transmitted disease Z11.3 ; Vaginal candidiasis B37.3 and Irritable bowel syndrome with diarrhea K58.0 [place] [id number] [place] [address] 41556- 3203 04 Mar, 2017 [facility] [id number] [address]- 7033 Feb, ADHD (attention deficit hyperactivity disorder), combined type F90.2 [facility] [address] [address]- 3662 Feb, Depressive disorder, not elsewhere classified F32.9 ; Anxiety state F41.1 and ADHD (attention deficit hyperactivity disorder), combined type F90.2 [facility] [address] [address]- 0395 Feb, Depressive disorder, not elsewhere classified F32.9 ; Anxiety state F41.1 and ADHD (attention deficit hyperactivity disorder), combined type F90.2 [place] [address] [address]- 4507 Feb, ADHD (attention deficit hyperactivity disorder), combined type F90.2 [facility] [address] [address] Jan, Other viral agents as the cause of diseases classified elsewhere B97.89 and Acute upper respiratory infection, unspecified J06.9 [place] [id number] [place] [address] 63458- 2069 Jan, ADHD (attention deficit hyperactivity disorder), combined type F90.2 ; Major depressive disorder, single episode, mild F32.0 and Anxiety disorder, unspecified type F41.9 [place] [id number] [place] [address] 72599- 8979 Jan, [facility] [id number] [address]- 5473 Jan, ADHD (attention deficit hyperactivity disorder), combined type F90.2 ; Major depressive disorder, single episode, mild F32.0 and Anxiety disorder, unspecified type F41.9 [facility] [address] [address]- 3100 Dec, Irritable bowel syndrome with diarrhea K58.0 and Lower abdominal pain R10.30 [place] [id number] [place] [address] 67111- 4704 Dec, Hospital discharge follow-up Z09 ; Mesenteric adenitis I88.0 ; IBD (inflammatory bowel disease) K52.9 and Nausea R11.0 [place] [id number] [place] [address] 89293- 5303 Nov, ADHD (attention deficit hyperactivity disorder), combined type F90.2 ; Major depressive disorder, single episode, mild F32.0 and Anxiety disorder, unspecified type F41.9 [place] [id number] [place] [address] 01203- 7563 Nov, Anxiety state F41.1 ; ADHD (attention deficit hyperactivity disorder), combined type F90.2 ; Major depressive disorder, single episode, mild F32.0 and Anxiety disorder, unspecified type F41.9 [place] [id number] [place] [address] 81880- 0012 Oct, Anxiety state F41.1 ; ADHD (attention deficit hyperactivity disorder), combined type F90.2 ; Major depressive disorder, single episode, mild F32.0 and Anxiety disorder, unspecified type F41.9 [place] [id number] [place] [address] 04488- 6019 Oct, ADHD (attention deficit hyperactivity disorder), combined type F90.2 ; Major depressive disorder, single episode, mild F32.0 and Anxiety disorder, unspecified type F41.9 [place] [id number] [place] [address] 96987- 1967 Oct, Major depressive disorder, single episode, mild F32.0 ; Anxiety state F41.1 ; ADHD (attention deficit hyperactivity disorder), combined type F90.2 and Depressive disorder, not elsewhere classified F32.9 [facility] [id number] [place] [address] 29166 -7921 16 Oct, [address] [facility] [id number] [place] [address] 57578 -5725 Oct, Cellulitis L03.90 and Plantar wart of right foot B07.0 [facility] [id number] [place] [address] 48834- 6201 Aug, ADHD (attention deficit hyperactivity disorder), combined type F90.2 ; Major depressive disorder, single episode, mild F32.0 and Anxiety disorder, unspecified type F41.9 [facility] [id number] [place] [address] 03599- 9292 Aug, [facility] [id number] [place] [address] 44783- 2559 Jul, ADHD (attention deficit hyperactivity disorder), combined type F90.2 [place] [id number] [place] [address] 00344- 9179 Jul, Mesenteric adenitis I88.0 [place] [id number] [place] [address] 26246- 9770 June, [facility] [id number] [place] [address] 41398 -1909 June, Lower abdominal pain R10.30 [facility] [id number] [place] [address] 67910- 3158 June, [facility] [id number] [place] [address] 14815- 5415 June, ADHD (attention deficit hyperactivity disorder), combined type F90.2 and Major depressive disorder, single episode, mild F32.0 [facility] [id number] [place] [address] 51659- 8599 May, [facility] [id number] [place] [address] 96937- 1370 May, ADHD (attention deficit hyperactivity disorder), combined type F90.2 and Major depressive disorder, single episode, mild F32.[address] [facility] [id number] [place] [address] 73403 -1520 Apr, Abdominal pain R10.9 and Gastroenteritis and colitis, viral A08.4 [facility] [id number] [place] [address] 14674- 5687 Apr, [facility] [address] 27375 -6022 Mar, Acute urticaria L50.8 [place] [address] 04692- 6730 Mar, [facility] [address] 02835- 6096 Feb, [facility] [address] 53003 -2803 Feb, Gastroenteritis K52.9 [place] [address] 63623- 7742 Feb, Irritant contact dermatitis due to cosmetics L24.3 [place] [address] 92203- 5663 Jan, [facility] [address] 57016- 1656 Jan, [place] [address] 54597- 2465 Jan, ADHD (attention deficit hyperactivity disorder), combined type F90.2 and Major depressive disorder, single episode, mild F32.0 [facility] [id number] [place] [address] 46573 -2202 Dec, Flexural eczema L20.82 [facility] [address] 84721- 1282 Dec, Encounter for test Z32.00 [facility] [address] 09982- 8583 Dec, [place] [address] 85757- 1735 Dec, [facility] [id number] [place] [address] 05286- 4059 Dec, [facility] [id number] [place] [address] 68201 -4586 Nov, Sore throat J02.9 and Pharyngitis, unspecified etiology J02.9 [facility] [id number] [place] [address] 90146- 4741 Nov, [facility] [id number] [place] [address] 21552- 1954 Nov, [facility] [address] 66059- 2183 Nov, Generalized abdominal pain R10.84 and Slow transit constipation K59.01 [facility] [id number] [place] [address] [id number] Nov, Pharyngitis, unspecified etiology J02.9 and Rhinitis, unspecified type J31.0 [facility] [id number] [place] [address] 68517- 7935 Oct, Depressive disorder, not elsewhere classified F32.9 and ADHD (attention deficit hyperactivity disorder), combined type F90.2 [facility] [id number] [place] [address] 36514- 9685 Oct, [facility] [id number] [place] [address] 40199- 1279 Oct, [facility] [id number] [place] [address] 34142 -9559 Oct, Strep throat J02.0 [facility] [address] 97168- 6080 16 Oct, 2015 [facility] [id number] [place] [address] 36530- 8031 09 Oct, 2016 Well woman exam with routine gynecological exam Z01.419 and Screening for STD sexually transmitted disease Z11.3 [facility] [id number] [address]- 1053 Sep, ADHD (attention deficit hyperactivity disorder), combined type F90.2 ; Anxiety state F41.1 and Depressive disorder, not elsewhere classified F32.9 [facility] [id number] [address]- 2967 Sep, ADHD (attention deficit hyperactivity disorder), combined type F90.2 and Depressive disorder, not elsewhere classified F32.9 [facility] [id number] [address]- 1907 Aug, [facility] [id number] [address]- 8740 Aug, ADHD (attention deficit hyperactivity disorder), combined type F90.2 and Depressive disorder, not elsewhere classified F32.9 [facility] [id number] [address]- 3397 Aug, ADHD (attention deficit hyperactivity disorder), combined type F90.2 ; Anxiety state F41.1 and Depressive disorder, not elsewhere classified F32.9 [facility] [id number] [address]- 5278 Aug, [facility] [id number] [address]- 9782 Aug, [facility] [id number] [address]- 0424 Jul, ADHD (attention deficit hyperactivity disorder), combined type F90.2 ; Depressive disorder, not elsewhere classified F32.9 and Anxiety state F41.1 [facility] [id number] [address]- 4525 Jul, [facility] [address] [facility] [id number] [address]- 2378 Jul, ADHD (attention deficit hyperactivity disorder), combined type F90.2 ; Anxiety state F41.1 and Depressive disorder, not elsewhere classified F32.9 [facility] [address] [address]- 5622 June, [facility] [id number] [id number] June, Constipation K59.00 [facility] [id number] [address]- 9981 28 May, 2015 Constipation K59.00 [facility] [address] [address] 20 May, 2015 Irritable bowel syndrome with diarrhea K58.0 [facility] [address] [facility] [id number] [place] [address]- 3543 15 May, 2015 [facility] [id number] [place] [address] 89002- 7746 15 May, 2015 [facility] [id number] [place] [address] 56596- 7064 14 May, 2014 [facility] [address] [address]- 9445 May, [facility] [address] [address]- 7146 Jan, [facility] [address] [address]- 2244 Jan, [facility] [address] [address]- 8986 Jan, [facility] [id number] [address]- 9832 Jan, [facility] [address] [address]- 1526 Jan, [facility] [id number] [address]- 3530 Jan, [facility] [address] [address]- 8750 Nov, [facility] [id number] [address]- 3254 Nov, [facility] [place] [facility] [address] [id number] [place] [address]- 4732 Oct, [facility] [place] [facility] [address] [id number] [place] [address]- 2032 Oct, [facility] [place] [facility] [address] [id number] [place] [address]- 3601 Sep, [facility] [place] [facility] [address] [id number] [place] [address]- 2044 Sep, [facility] [place] [facility] [address] [id number] [place] [address]- 8772 Aug, [facility] [place] [facility] [address] [id number] [place] [address]- 7000 Aug, [facility] [place] [facility] [address] [id number] [place] [address]- 6433 Aug, [facility] [place] [facility] [address] [id number] [place] [address]- 1207 Aug, [facility] [place] [facility] [address] [id number] [place] [address]- 5996 Aug, [facility] [place] [facility] [address] [id number] [place] [address]- 3805 Aug, [facility] [place] [facility] [address] [id number] [place] [address]- 8192 Aug, [facility] [place] [facility] [address] [id number] [place] [address]- 1653 Aug, [facility] [place] [facility] [address] [id number] [place] [address]- 6203 Jul, [facility] [place] [facility] [address] [id number] [place] [address]- 3394 Jul, [facility] [place] [facility] [address] [id number] [place] 2177 Jul, [facility] [place] [facility] [address] [id number] [place] [address]- 8954 Jul, [facility] [place] [facility] [address] [id number] [place] [address]- 5595 Jul, [facility] [place] [facility] [address] [id number] [place] [address]- 4216 Jul, [facility] [place] [facility] [address] [id number] [place] [address]- 9382 Jul, [facility] [place] [facility] [address] [id number] [place] [address]- 9830 Jul, [facility] [place] [facility] [address] [id number] [place] [address]- 6626 Jul, [facility] [place] [facility] [address] [id number] [place] [address]- 7961 June, [facility] [place] [facility] [address] [id number] [place] [address]- 9897 June, [facility] [place] [facility] [address] [id number] [place] [address]- 2396 May, [facility] [place] [facility] [address] [id number] [place] [address]- 9385 May, [facility] [place] [facility] [address] [id number] [place] [address]- 1212 May, [facility] [place] [facility] [address] [id number] [place] [address]- 9430 May, [facility] [place] [facility] [address] [id number] [place] [address]- 5371 May, [facility] [place] [facility] [address] [id number] [place] [address]- 6321 May, [facility] [place] [facility] [address] [id number] [place] [address]- 9769 14 May, 2013 [facility] [place] [facility] [address] [id number] [address]- 5566 May, [facility] [place] [facility] [address] [id number] [place] [address] May, [facility] [place] [facility] [address] [id number] [place] [address] May, [facility] [place] [facility] [address] [facility] [id number] [place] [address] May, [facility] [place] [facility] [address] [facility] [id number] [place] [address] May, [facility] [place] [facility] [address] [id number] [place] [address] Apr, [facility] [place] [facility] [address] [facility] [id number] [place] [address] Apr, [facility] [place] [facility] [address] [id number] [place] [address] Apr, [facility] [place] [facility] [address] [facility] [id number] [place] [address] Apr, [facility] [place] [facility] [address] [id number] [place] [address] Mar, [facility] [place] [facility] [address] [id number] [place] [address] Mar, [facility] [place] [facility] [address] [id number] [place] [address] Mar, [facility] [place] [facility] [address] [facility] [id number] [place] [address] Mar, [facility] [place] [facility] [address] [id number] [place] [address] Mar, [facility] [place] [facility] [address] [facility] [id number] [place] [address] Mar, [facility] [place] [facility] [address] [facility] [id number] [place] [address] Mar, [facility] [place] [facility] [address] [id number] [place] [address] Mar, [facility] [place] [facility] [address] [address] [id number] [place] [address] Mar, [facility] [place] [facility] [address] [id number] [place] [address] Mar, [facility] [place] [facility] [address] [id number] [place] [address] Mar, [facility] [place] [facility] [address] [id number] [place] [address] Mar, [facility] [place] [facility] [address] [id number] [place] [address] Mar, [facility] [place] [facility] [address] [facility] [id number] [place] [address] Mar, [facility] [place] [facility] [address] [id number] [place] [address] Mar, [facility] [place] [facility] [address] [id number] [place] [address] Mar, [facility] [place] [facility] [address] [facility] [id number] [place] [address] Mar, [facility] [place] [facility] [address] [id number] [place] [address] Mar, [facility] [place] [facility] [address] [facility] [id number] [place] [address] Mar, [facility] [place] [facility] [address] [id number] [place] [address] Mar, [facility] [place] [facility] [address] [id number] [place] [address] Feb, [facility] [place] [facility] [address] [facility] [id number] [place] [address] Feb, [facility] [place] [facility] [address] [id number] [place] [address] Feb, [facility] [place] [facility] [address] [id number] [place] [address] Feb, [facility] [place] [facility] [address] [id number] [place] [address] Feb, [facility] [place] [facility] [address] [id number] [place] [address] Feb, [facility] [place] [facility] [address] [id number] [place] [address] Feb, [facility] [place] [facility] [address] [id number] [place] [address] Feb, [facility] [place] [facility] [address] [id number] [place] [address] Feb, [facility] [place] [facility] [address] [id number] [place] [address] Feb, [facility] [place] [facility] [address] [id number] [place] [address] Feb, [facility] [place] [facility] [address] [id number] [place] [address] Feb, [facility] [place] [facility] [address] [id number] [place] [address] Feb, [facility] [place] [facility] [address] [id number] [place] [address] Feb, [facility] [place] [facility] [address] [id number] [place] [address] Feb, [facility] [place] [facility] [address] [id number] [place] [address] Feb, [facility] [place] [facility] [address] [id number] [place] [address] Feb, [facility] [place] [facility] [address] [id number] [place] [address] Feb, [facility] [address] [id number] [place] [address] 15 Feb, 2013 [facility] [place] [facility] [address] [id number] [place] [address]87 Feb, [facility] [place] [facility] [address] [id number] [place] [address] 8670 Feb, [facility] [place] [facility] [address] [id number] [place] [address] 2428 Feb, [facility] [address] [id number] [place] [address] Feb, [facility] [place] [facility] [address] [id number] [place] [address] Jan, [facility] [place] [facility] [address] [id number] [place] [address] 24 Jan, 2013 [facility] [place] [facility] [address] [id number] [place] [address] Jan, [facility] [place] [facility] [address] [id number] [place] [address] 18 Jan, 2013 [facility] [place] [facility] [address] [id number] [place] [address] 18 Jan, 2013 [facility] [place] [facility] [address] [id number] [place] [address] 18 Jan, 2013 [facility] [place] [facility] [address] [id number] [place] [address] 18 Jan, 2013 [facility] [place] [facility] [address] [id number] [place] [address]- [address] 17 Jan, 2013 [facility] [place] [facility] [address] [id number] [place] [address]- [address] 17 Jan, 2013 [facility] [place] [facility] [address] [facility] [id number] [place] [address] 2013 [facility] [place] [facility] [address] [id number] [place] [address]- [address] Jan, [facility] [address] [id number] [place] [address] Jan, [facility] [place] [facility] [address] [id number] [place] [address]- 87[address] Jan, [facility] [address] [id number] [place] [address]- [address] Dec, [facility] [place] [facility] [address] [id number] [place] [address]- [address] Dec, [facility] [place] [facility] [address] [id number] [place] [address]- [address] Dec, [facility] [place] [facility] [address] [id number] [place] [address]- [address]140 Dec, [facility] [place] [facility] [address] [id number] [place] [address]- [address] Dec, [facility] [place] [facility] [address] [id number] [place] [address]- [address] Dec, [facility] [place] [facility] [address] [id number] [place] [address]- [address] Nov, [facility] [place] [facility] [address] [id number] [place] [address]- [address]047 Nov, [facility] [place] [facility] [address] [id number] [place] [address]- [address] Nov, [facility] [place] [facility] [address] [id number] [place] [address] Nov, [facility] [place] [facility] [address] [id number] [place] [address]- 45[address] Nov, [facility] [place] [facility] [address] [id number] [place] [address] Nov, [facility] [place] [facility] [address] [id number] [place] [address] Oct, [facility] [address] [facility] [id number] [place] [address] Oct, [facility] [address] [id number] [place] [address] Oct, [facility] [address] [id number] [place] [address] Oct, [facility] [id number] [place] [address] Oct, [facility] [address] [id number] [place] [address] Oct, [facility] [id number] [place] [address] Oct, IMMUNIZATIONS No Known Immunizations SOCIAL HISTORY Never Assessed REASON FOR VISIT f/u- gurwinder ma, contract and PDM PLAN OF CARE Activity Details Follow Up 2 Months Reason: Follow-up VITAL SIGNS Height 59 in 2018-01-25 Weight 137.6 lbs 2018-01-25 Heart Rate 98 bpm 2018-01-25 Respiratory Rate 20 2018-01-25 BMI 27.79 kg/m2 2018-01-25 Blood pressure systolic 100 mmHg 2018-01-25 Blood pressure diastolic 78 mmHg 2018-01-25 MEDICATIONS Medication Instructions Dosage Frequency Start Date End Date Duration Status Fluconazole 150 MG Orally one time 1 tablet Jan, 1 dose Active Pristiq 50 mg Orally Once a day 1 tablet 24h Aug, Active HydrOXYzine HCl 25 MG Orally three times a day as needed for anxiety 1 tablet Jan, Active Concerta 27 MG Orally Once a day in the morning 1 tablet Jan, 28 days Active Trileptal 300 MG Orally Twice a day 1 tablet 12h Oct, Active RESULTS No Results PROCEDURES No Known [...]
--- OUTSIDE RECORDS SUMMARY | 2018-03-19 20:18 | XMS REPORT ---
Author Author LEONARD CHIN [facility] Address [address] [place] [address] Care Team Providers Care Time Analysis Clerk Name Role Phone LEONARD CHIN Unavailable PROBLEMS Type Condition ICD9-CM Code [id number] Code Onset Dates Condition Status SNOMED Code Problem ADHD (attention deficit hyperactivity disorder), combined type F90.2 Active 65423751 Problem Rhinitis, unspecified type J31.0 Active 41567266 Problem Depressive disorder, not elsewhere classified F32.9 Active 35173310 Problem Anxiety state F41.1 Active 666965523 Problem Unspecified mood [affective] disorder F39 Active 69841804 Problem Irritable bowel syndrome with diarrhea K58.0 Active 271089951 Problem Major depressive disorder, single episode, mild F32.0 Active 80208911 Problem Slow transit constipation K59.01 Active 25051198 Problem Plantar wart of right foot B07.0 Active [id number] Problem Anxiety disorder, unspecified type F41.9 Active 551131717 ALLERGIES No Information ENCOUNTERS Encounter Location Date Diagnosis [facility] [id number] [place] [address] 79780- 0464 Jan, [facility] [id number] [place] [address] 62157- 1604 Jan, [facility] [id number] [place] [address] 80178- 1400 Dec, [facility] [address] 09118- 0843 Dec, ADHD (attention deficit hyperactivity disorder), combined type F90.2 ; Anxiety disorder, unspecified type F41.9 and Unspecified mood [ affective] disorder F39 [facility] [id number] [place] [address] 38378- 4169 Dec, Unspecified mood [affective] disorder F39 ; Anxiety disorder , unspecified type F41.9 and ADHD (attention deficit hyperactivity disorder), combined type F90.2 [facility] [id number] [place] [address] 80355 -1735 Nov, Other specified bacterial agents as the cause of diseases classified elsewhere B96.89 and Otitis media, unspecified, bilateral H66.93 [facility] [id number] [place] [address] 86429 -5028 Nov, Sore throat J02.9 and Acute nasopharyngitis J00 [facility] [id number] [place] [address] 22986- 7674 Nov, ADHD (attention deficit hyperactivity disorder), combined type F90.2 ; Anxiety disorder, unspecified type F41.9 and Unspecified mood [ affective] disorder F39 [facility] [id number] [place] [address] 31191- 2792 Oct, ADHD (attention deficit hyperactivity disorder), combined type F90.2 [facility] [id number] [place] [address] 75785- 3090 Oct, ADHD (attention deficit hyperactivity disorder), combined type F90.2 ; Anxiety disorder, unspecified type F41.9 and Unspecified mood [ affective] disorder F39 [facility] [address] [address] 9220 Sep, ADHD (attention deficit hyperactivity disorder), combined type F90.2 [facility] [address] [address] Sep, [facility] [id number] [place] [address] 74444- 8500 Aug, ADHD (attention deficit hyperactivity disorder), combined type F90.2 ; Major depressive disorder, single episode, mild F32.0 and Anxiety disorder, unspecified type F41.9 [facility] [id number] [place] [address] 65010 -5995 Aug, Sore throat J02.9 ; Other specified bacterial agents as the cause of diseases classified elsewhere B96.89 and Acute tonsillitis due to other specified organisms J03.80 [facility] [address] [address]- 1783 Aug, ADHD (attention deficit hyperactivity disorder), combined type F90.2 [facility] [address] [address]- 3805 Jul, ADHD (attention deficit hyperactivity disorder), combined type F90.2 [facility] [id number] [address] 7060 June, ADHD (attention deficit hyperactivity disorder), combined type F90.2 ; Major depressive disorder, single episode, mild F32.0 and Anxiety disorder, unspecified type F41.9 [facility] [address] [address]- 1032 June, [facility] [id number] [place] [address] 86642- 9842 June, ADHD (attention deficit hyperactivity disorder), combined type F90.2 [facility] [address] [address]- 7678 May, [facility] [address] [address]- 5929 May, ADHD (attention deficit hyperactivity disorder), combined type F90.2 ; Major depressive disorder, single episode, mild F32.0 and Anxiety disorder, unspecified type F41.9 [facility] [address] [address] 1603 May, Anxiety disorder, unspecified type F41.9 [facility] [id number] [place] [address] 44700- 4712 Apr, [facility] [address] [address]- 3713 Apr, Anxiety disorder, unspecified type F41.9 [facility] [address] [address]- 5750 Apr, Anxiety disorder, unspecified type F41.9 ; Major depressive disorder, single episode, mild F32.0 and ADHD (attention deficit hyperactivity disorder), combined type F90.2 [facility] [address] [address]- 4061 Apr, [facility] [id number] [place] [address] 42628- 5574 Apr, ADHD (attention deficit hyperactivity disorder), combined type F90.2 ; Anxiety state F41.1 ; Depressive disorder, not elsewhere classified F32.9 ; Major depressive disorder, single episode, mild F32.0 and Anxiety disorder, unspecified type F41.9 [facility] [address] [address]- [address] 28 Mar, 2017 ADHD (attention deficit hyperactivity disorder), combined type F90.2 [facility] [address] [address]- 9670 Mar, Nausea R11.0 [facility] [id number] [place] [address] 58375- 8096 13 Mar, 2017 Screening for STD sexually transmitted disease Z11.3 ; Vaginal candidiasis B37.3 and Irritable bowel syndrome with diarrhea K58.0 [facility] [address] [address]- 3715 Mar, [facility] [id number] [place] [address] 41947- 7188 Feb, ADHD (attention deficit hyperactivity disorder), combined type F90.2 [facility] [address] [address]- 0009 Feb, Depressive disorder, not elsewhere classified F32.9 ; Anxiety state F41.1 and ADHD (attention deficit hyperactivity disorder), combined type F90.2 [facility] [address] [address]- 3428 Feb, Depressive disorder, not elsewhere classified F32.9 ; Anxiety state F41.1 and ADHD (attention deficit hyperactivity disorder), combined type F90.2 [facility] [id number] [place] [address] 12984- 5667 Feb, ADHD (attention deficit hyperactivity disorder), combined type F90.2 [facility] [id number] [place] [address] 26681 -7610 Jan, Other viral agents as the cause of diseases classified elsewhere B97.89 and Acute upper respiratory infection, unspecified J06.9 [facility] [id number] [place] [address] 53319- 0505 Jan, ADHD (attention deficit hyperactivity disorder), combined type F90.2 ; Major depressive disorder, single episode, mild F32.0 and Anxiety disorder, unspecified type F41.9 [facility] [id number] [place] [address] 44446- 7473 Jan, [facility] [id number] [place] [address] 76996- 2162 Jan, ADHD (attention deficit hyperactivity disorder), combined type F90.2 ; Major depressive disorder, single episode, mild F32.0 and Anxiety disorder, unspecified type F41.9 [facility] [id number] [place] [address] 28282- 7188 Dec, Irritable bowel syndrome with diarrhea K58.0 and Lower abdominal pain R10.30 [facility] [id number] [place] [address] 06974- 8945 09 Dec, 2016 Hospital discharge follow-up Z09 ; Mesenteric adenitis I88.0 ; IBD (inflammatory bowel disease) K52.9 and Nausea R11.0 [facility] [id number] [place] [address] 98952- 3737 Nov, ADHD (attention deficit hyperactivity disorder), combined type F90.2 ; Major depressive disorder, single episode, mild F32.0 and Anxiety disorder, unspecified type F41.9 [facility] [address] [address]- 4598 Nov, Anxiety state F41.1 ; ADHD (attention deficit hyperactivity disorder), combined type F90.2 ; Major depressive disorder, single episode, mild F32.0 and Anxiety disorder, unspecified type F41.9 [facility] [id number] [place] [address] 93716- 2969 Oct, Anxiety state F41.1 ; ADHD (attention deficit hyperactivity disorder), combined type F90.2 ; Major depressive disorder, single episode, mild F32.0 and Anxiety disorder, unspecified type F41.9 [facility] [id number] [place] [address] 67581- 7015 Oct, ADHD (attention deficit hyperactivity disorder), combined type F90.2 ; Major depressive disorder, single episode, mild F32.0 and Anxiety disorder, unspecified type F41.9 [facility] [id number] [place] [address] 98874- 3892 Oct, Major depressive disorder, single episode, mild F32.0 ; Anxiety state F41.1 ; ADHD (attention deficit hyperactivity disorder), combined type F90.2 and Depressive disorder, not elsewhere classified F32.9 [facility] [id number] [place] [address] 09180 -1890 16 Oct, 2016 [facility] [id number] [place] [address] 23293 -6649 Oct, Cellulitis L03.90 and Plantar wart of right foot B07.0 [facility] [id number] [place] [address] 97310- 1237 Aug, ADHD (attention deficit hyperactivity disorder), combined type F90.2 ; Major depressive disorder, single episode, mild F32.0 and Anxiety disorder, unspecified type F41.9 [facility] [id number] [place] [address] 55551- 1880 Aug, [facility] [id number] [place] [address] 18407- 1139 Jul, ADHD (attention deficit hyperactivity disorder), combined type F90.2 [facility] [address] 58576- 5075 Jul, Mesenteric adenitis I88.0 [facility] [address] 76737- 2275 June, [facility] [address] 62323 -8438 June, Lower abdominal pain R10.30 [facility] [address] 77491- 7358 June, [facility] [address] 89666- 2717 June, ADHD (attention deficit hyperactivity disorder), combined type F90.2 and Major depressive disorder, single episode, mild F32.0 [facility] [id number] [place] [address] 45281- 0713 May, [facility] [id number] [place] [address] 04382- 8562 May, ADHD (attention deficit hyperactivity disorder), combined type F90.2 and Major depressive disorder, single episode, mild F32.0 [facility] [id number] [place] [address] 86932 -0833 Apr, Abdominal pain R10.9 and Gastroenteritis and colitis, viral A08.4 [facility] [id number] [place] [address] 67431- 2495 Apr, [facility] [address] 74663 -4960 Mar, Acute urticaria L50.8 [facility] [id number] [place] [address] 31246- 7185 Mar, [facility] [address] 38127- 7726 Feb, [facility] [id number] [place] [address] 55476 -3286 Feb, Gastroenteritis K52.9 [facility] [address] 64607- 3113 Feb, Irritant contact dermatitis due to cosmetics L24.3 [facility] [address] 53459- 5023 Jan, [facility] [address] 76266- 8264 Jan, [facility] [address] 66081- 6509 Jan, ADHD (attention deficit hyperactivity disorder), combined type F90.2 and Major depressive disorder, single episode, mild F32.0 [facility] [address] 78718 -0321 Dec, Flexural eczema L20.82 [facility] [address] 43851- 4916 Dec, Encounter for test Z32.00 [facility] [address] 51912- 4884 Dec, [facility] [id number] [place] [address] 50774- 9582 Dec, [facility] [address] 57201- 5787 Dec, [facility] [id number] [place] [address] 11528 -8772 Nov, Sore throat J02.9 and Pharyngitis, unspecified etiology J02.9 [facility] [id number] [place] [address] 45056- 5413 Nov, [facility] [address] 43581- 6917 Nov, [facility] [id number] [place] [address] 18945- 6244 Nov, Generalized abdominal pain R10.84 and Slow transit constipation K59.01 [facility] [id number] [place] [address] [id number] Nov, Pharyngitis, unspecified etiology J02.9 and Rhinitis, unspecified type J31.0 [facility] [id number] [place] [address] 02992- 6132 Oct, Depressive disorder, not elsewhere classified F32.9 and ADHD (attention deficit hyperactivity disorder), combined type F90.2 [facility] [id number] [place] [address] 95808- 4413 Oct, [facility] [id number] [place] [address] 18385- 1810 Oct, [facility] [id number] [place] [address] 67467 -5676 Oct, Strep throat J02.0 [facility] [id number] [place] [address] 58652- 9980 Oct, [facility] [id number] [place] [address] 20758- 9926 Oct, Well woman exam with routine gynecological exam Z01.419 and Screening for STD sexually transmitted disease Z11.3 [facility] [id number] [place] [address] 94414- 4833 Sep, ADHD (attention deficit hyperactivity disorder), combined type F90.2 ; Anxiety state F41.1 and Depressive disorder, not elsewhere classified F32.9 [facility] [id number] [place] [address] 29255- 2851 Sep, ADHD (attention deficit hyperactivity disorder), combined type F90.2 and Depressive disorder, not elsewhere classified F32.9 [facility] [id number] [place] [address] 86639- 8736 Aug, [facility] [address] [address]- 6253 Aug, ADHD (attention deficit hyperactivity disorder), combined type F90.2 and Depressive disorder, not elsewhere classified F32.9 [facility] [address] [address]- 5655 Aug, ADHD (attention deficit hyperactivity disorder), combined type F90.2 ; Anxiety state F41.1 and Depressive disorder, not elsewhere classified F32.9 [facility] [address] [address]- 5261 Aug, [facility] [id number] [place] [address] 31668- 0170 Aug, [facility] [id number] [place] [address] 53377- 7487 Jul, ADHD (attention deficit hyperactivity disorder), combined type F90.2 ; Depressive disorder, not elsewhere classified F32.9 and Anxiety state F41.1 [facility] [address] [address]- 1914 Jul, [facility] [id number] [place] [address] 99014- 1136 Jul, ADHD (attention deficit hyperactivity disorder), combined type F90.2 ; Anxiety state F41.1 and Depressive disorder, not elsewhere classified F32.9 [facility] [address] [address]- 8318 June, [facility] [address] [address] June, Constipation K59.00 [facility] [id number] [place] [address] 40623- 6783 May, Constipation K59.00 [facility] [address] [address] -6031 May, Irritable bowel syndrome with diarrhea K58.0 [facility] [place] [facility] [address] [id number] [place] [address]- 3434 15 May, 2015 [facility] [place] [facility] [address] [id number] [place] [address]- 8243 15 May, 2015 [facility] [place] [facility] [address] [id number] [place] [address]- 4697 14 May, 2014 [facility] [place] [facility] [address] [id number] [place] [address]- 1372 13 May, 2014 [facility] [place] [facility] [address] [id number] [place] [address]- 9156 Jan, [facility] [place] [facility] [address] [id number] [place] [address]- 9006 Jan, [facility] [place] [facility] [address] [facility] [id number] [place] [address]- 7011 Jan, [facility] [place] [facility] [address] [id number] [place] [address]- 4745 Jan, [facility] [place] [facility] [address] [id number] [place] [address]- 9021 Jan, [facility] [place] [facility] [address] [facility] [id number] [place] [address]- 9672 Jan, [facility] [place] [facility] [address] [facility] [id number] [place] [address]- 4532 Nov, [facility] [place] [facility] [address] [id number] [address]- 1170 Nov, [facility] [place] [facility] [address] [id number] [place] [address]- 6291 Oct, [facility] [place] [facility] [address] [id number] [place] [address]- 8124 Oct, [facility] [place] [facility] [address] [facility] [id number] [place] [address]- 5060 Sep, [facility] [place] [facility] [address] [id number] [address]- 1013 Sep, [facility] [place] [facility] [address] [id number] [place] [address]- 7860 Aug, [facility] [place] [facility] [address] [id number] [place] [address]- 1544 Aug, [facility] [place] [facility] [address] [id number] [place] [address]- 5276 Aug, [facility] [place] [facility] [address] [id number] [place] [address]- 7242 Aug, [facility] [place] [facility] [address] [id number] [place] [address]- 0824 Aug, [facility] [place] [facility] [address] [id number] [place] [address]- 0587 Aug, [facility] [place] [facility] [address] [id number] [place] [address]- 8719 Aug, [facility] [place] [facility] [address] [id number] [place] [address]- 2531 Aug, [facility] [place] [facility] [address] [id number] [place] [address]- 4945 Jul, [facility] [place] [facility] [address] [id number] [place] [address]- 3440 Jul, [facility] [place] [facility] [address] [id number] [place] [address]- 1520 Jul, [facility] [place] [facility] [address] [id number] [place] [address]- 3777 Jul, [facility] [place] [facility] [address] [id number] [place] [address]- 1623 Jul, [facility] [place] [facility] [address] [id number] [place] [address]- 8464 Jul, [facility] [place] [facility] [address] [id number] [place] [address]- 6067 Jul, [facility] [place] [facility] [address] [id number] [place] [address]- 2983 Jul, [facility] [place] [facility] [address] [id number] [place] [address]- 7106 Jul, [facility] [place] [facility] [address] [id number] [place] [address]- 9724 June, [facility] [place] [facility] [address] [id number] [place] [address]- 9158 June, [facility] [place] [facility] [address] [id number] [place] [address]- 9577 May, [facility] [place] [facility] [address] [id number] [place] [address]- 3674 May, [facility] [place] [facility] [address] [id number] [place] [address]- 5274 May, [facility] [place] [facility] [address] [id number] [place] [address]- 1754 May, [facility] [place] [facility] [address] [id number] [place] [address]- 9233 May, [facility] [place] [facility] [address] [id number] [place] [address]- 0638 May, [facility] [place] [facility] [address] [id number] [place] [address]- 4212 May, [facility] [place] [facility] [address] [id number] [place] [address]- 3045 May, [facility] [place] [facility] [address] [id number] [place] [address]- 9340 May, [facility] [place] [facility] [address] [id number] [place] [address]- 7649 May, [facility] [place] [facility] [address] [id number] [place] [address]- 8683 May, [facility] [place] [facility] [address] [id number] [place] [address]- 9994 May, [facility] [place] [facility] [address] [id number] [place] [address]- 7327 Apr, [facility] [place] [facility] [address] [id number] [place] [address]- 7638 Apr, [facility] [place] [facility] [address] [id number] [place] [address]- 9715 Apr, [facility] [place] [facility] [address] [id number] [place] [address]- 8598 Apr, [facility] [place] [facility] [address] [id number] [place] [address]- 6845 Mar, [facility] [place] [facility] [address] [id number] [place] [address]- 2098 Mar, [facility] [place] [facility] [address] [facility] [id number] [place] [address]- 9455 Mar, [facility] [place] [facility] [address] [id number] [place] [address] Mar, [facility] [place] [facility] [address] [facility] [id number] [place] [address] Mar, [facility] [place] [facility] [address] [facility] [id number] [place] [address] Mar, [facility] [place] [facility] [address] [facility] [id number] [place] [address] 2008 Mar, [facility] [place] [facility] [address] [facility] [id number] [place] [address] Mar, [facility] [place] [facility] [address] [id number] [place] [address] Mar, [facility] [place] [facility] [address] [facility] [id number] [place] [address] Mar, [facility] [place] [facility] [address] [facility] [id number] [place] [address] 14 Mar, 2013 [facility] [place] [facility] [address] [id number] [place] [address] 14 Mar, 2013 [facility] [place] [facility] [address] [id number] [place] [address] Mar, [facility] [place] [facility] [address] [id number] [place] [address] Mar, [facility] [place] [facility] [address] [id number] [place] [address] Mar, [facility] [place] [facility] [address] [id number] [place] [address] Mar, [facility] [place] [facility] [address] [id number] [place] [address] Mar, [facility] [place] [facility] [address] [id number] [place] [address] Mar, [facility] [place] [facility] [address] [id number] [place] [address] Mar, [facility] [place] [facility] [address] [id number] [place] [address] Mar, [facility] [place] [facility] [address] [id number] [place] [address] Feb, [facility] [place] [facility] [address] [id number] [place] [address] Feb, [facility] [place] [facility] [address] [id number], [place] [address] Feb, [facility] [place] [facility] [address] [id number] [place] [address] Feb, [facility] [place] [facility] [address] [id number] [place] [address] Feb, [facility] [place] [facility] [address] [id number] [place] [address] Feb, [facility] [place] [facility] [address] [id number] [place] [address] Feb, [facility] [place] [facility] [address] [id number] [place] [address] Feb, [facility] [place] [facility] [address] [id number] [place] [address] Feb, [facility] [place] [facility] [address] [id number] [place] [address] Feb, [facility] [place] [facility] [address] [id number] [place] [address] Feb, [facility] [place] [facility] [address] [id number] [place] [address] Feb, [facility] [place] [facility] [address] [id number] [place] [address] Feb, [facility] [place] [facility] [address] [id number] [place] [address] Feb, [facility] [place] [facility] [address] [id number] [place] [address] Feb, [facility] [place] [facility] [address] [id number] [place] [address] Feb, [facility] [place] [facility] [address] [id number] [place] [address] Feb, [facility] [place] [facility] [address] [id number] [place] [address] Feb, [facility] [place] [facility] [address] [id number] [place] [address] Feb, [facility] [place] [facility] [address] [id number] [place] [address] Feb, [facility] [place] [facility] [address] [id number] [place] [address] Feb, [facility] [place] [facility] [address] [id number] [place] [address] Feb, [facility] [place] [facility] [address] [id number] [place] [address] Feb, [facility] [address] [id number] [place] [address] Jan, [facility] [place] [facility] [address] [id number] [place] [address] Jan, [facility] [place] [facility] [address] [id number] [place] [address] Jan, [facility] [address] [id number] [place] [address] Jan, [facility] [place] [facility] [address] [id number] [place] [address] Jan, [facility] [address] [id number] [place] [address] Jan, [facility] [address] [id number] [place] [address] Jan, [facility] [address] [id number] [place] [address] Jan, [facility] [place] [facility] [address] [id number] [place] [address] 97[address] Jan, [facility] [place] [facility] [address] [id number] [place] [address] Jan, [facility] [place] [facility] [address] [id number] [place] [address] Jan, [facility] [place] [facility] [address] [id number] [place] [address] Jan, [facility] [place] [facility] [address] [id number] [place] [address] Jan, [facility] [place] [facility] [address] [id number] [place] [address] Dec, [facility] [place] [facility] [address] [id number] [place] [address] Dec, [facility] [place] [facility] [address] [id number] [place] [address] 8665 Dec, [facility] [place] [facility] [address] [id number] [place] [address] Dec, [facility] [place] [facility] [address] [id number] [place] [address] Dec, [facility] [place] [facility] [address] [id number][place] [address] Dec, [facility] [place] [facility] [address] [id number] [place] [address] Nov, [facility] [place] [facility] [address] [id number][place] [address] Nov, [facility] [place] [facility] [address] [id number] [place] [address] Nov, [facility] [place] [facility] [address] [id number], [place] [address] Nov, [facility] [place] [facility] [address] [id number], [place] [address] Nov, [facility] [place] [facility] [address] [id number], [place] [address] Nov, [facility] [place] [facility] [address] [id number], [place] [address] 28 Oct, 2012 [facility] [place] [facility] [address] [id number], [place] [address] 27 Oct, 2012 [facility] [place] [facility] [address] [id number] [place] [address] 26 Oct, 2012 [facility] [place] [facility] [address] [id number][place] [address] 25 Oct, 2012 [facility] [place] [facility] [address] [id number][place] [address] 25 Oct, 2012 [facility] [place] [facility] [address] [facility] [id number] [place] [address] 18 Oct, 2012 [facility] [address] [facility] [id number] [place] [address] 13 Oct, 2012 IMMUNIZATIONS No Known Immunizations [...]
--- OUTSIDE RECORDS SUMMARY | 2018-03-19 20:18 | XMS REPORT ---
Author Author HARIKA RODRIGUEZ [facility] Address [address] [place] [address] Care Team Providers Care Radio Division Officer Name Role Phone HARIKA RODRIGUEZ Unavailable PROBLEMS Type Condition ICD9-CM Code TOK68-[id number] Code Onset Dates Condition Status SNOMED Code Problem ADHD (attention deficit hyperactivity disorder), combined type F90.2 Active 71544256 Problem Rhinitis, unspecified type J31.0 Active 79714269 Problem Depressive disorder, not elsewhere classified F32.9 Active 64945893 Problem Anxiety state F41.1 Active 033644429 Problem Unspecified mood [affective] disorder F39 Active 72722995 Problem Irritable bowel syndrome with diarrhea K58.0 Active 794120748 Problem Major depressive disorder, single episode, mild F32.0 Active 37266296 Problem Slow transit constipation K59.01 Active 56540714 Problem Plantar wart of right foot B07.0 Active [id number] Problem Anxiety disorder, unspecified type F41.9 Active 206826753 ALLERGIES No Known Allergies ENCOUNTERS Encounter Location Date Diagnosis [facility] [id number] [place] [address] 68825- 5732 Jan, [facility] [id number] [place] [address] 68827- 9817 Jan, [facility] [id number] [place] [address] 84098- 2641 Dec, [facility] [address] 7[address]09- 6561 Dec, ADHD (attention deficit hyperactivity disorder), combined type F90.2 ; Anxiety disorder, unspecified type F41.9 and Unspecified mood [ affective] disorder F39 [facility] [id number] [place] [address] 93349- 1221 Dec, Unspecified mood [affective] disorder F39 ; Anxiety disorder , unspecified type F41.9 and ADHD (attention deficit hyperactivity disorder), combined type F90.2 [facility] [id number] [place] [address] 84637 -4204 Nov, Other specified bacterial agents as the cause of diseases classified elsewhere B96.89 and Otitis media, unspecified, bilateral H66.93 [facility] [id number] [place] [address] 76462 -0207 Nov, Sore throat J02.9 and Acute nasopharyngitis J00 [facility] [id number] [place] [address] 84876- 3130 Nov, ADHD (attention deficit hyperactivity disorder), combined type F90.2 ; Anxiety disorder, unspecified type F41.9 and Unspecified mood [ affective] disorder F39 [facility] [id number] [place] [address] 32205- 3046 Oct, ADHD (attention deficit hyperactivity disorder), combined type F90.2 [facility] [id number] [place] [address] 88009- 7345 Oct, ADHD (attention deficit hyperactivity disorder), combined type F90.2 ; Anxiety disorder, unspecified type F41.9 and Unspecified mood [ affective] disorder F39 [facility] [address] [address] 8275 Sep, ADHD (attention deficit hyperactivity disorder), combined type F90.2 [facility] [address], [place] [address]- 2426 Sep, [facility] [id number] [place] [address] 30509- 8989 Aug, ADHD (attention deficit hyperactivity disorder), combined type F90.2 ; Major depressive disorder, single episode, mild F32.0 and Anxiety disorder, unspecified type F41.9 [facility] [id number] [place] [address] 61495 -1288 Aug, Sore throat J02.9 ; Other specified bacterial agents as the cause of diseases classified elsewhere B96.89 and Acute tonsillitis due to other specified organisms J03.80 [facility] [address] [address] Aug, ADHD (attention deficit hyperactivity disorder), combined type F90.2 [facility] [address] [address]- 0961 Jul, ADHD (attention deficit hyperactivity disorder), combined type F90.2 [facility] [address], [place] [address] 5078 June, ADHD (attention deficit hyperactivity disorder), combined type F90.2 ; Major depressive disorder, single episode, mild F32.0 and Anxiety disorder, unspecified type F41.9 [facility] [address], [place] [address]- 7754 June, [facility] [address] [address] 9450 June, ADHD (attention deficit hyperactivity disorder), combined type F90.2 [facility] [address], [place] [address]- 5914 May, [facility] [address], [place] [address]- 8987 May, ADHD (attention deficit hyperactivity disorder), combined type F90.2 ; Major depressive disorder, single episode, mild F32.0 and Anxiety disorder, unspecified type F41.9 [facility] [address], [place] [address] 0347 May, Anxiety disorder, unspecified type F41.9 [facility] [address] [address] Apr, [facility] [address], [place] [address]- 6370 Apr, Anxiety disorder, unspecified type F41.9 [facility] [id number] [place] [address] 12691- 3704 Apr, Anxiety disorder, unspecified type F41.9 ; Major depressive disorder, single episode, mild F32.0 and ADHD (attention deficit hyperactivity disorder), combined type F90.2 [facility] [id number] [place] [address] 59913- 2432 Apr, [facility] [id number] [place] [address] 37589- 3920 Apr, ADHD (attention deficit hyperactivity disorder), combined type F90.2 ; Anxiety state F41.1 ; Depressive disorder, not elsewhere classified F32.9 ; Major depressive disorder, single episode, mild F32.0 and Anxiety disorder, unspecified type F41.9 [facility] [id number] [place] [address] 92354- 0100 Mar, ADHD (attention deficit hyperactivity disorder), combined type F90.2 [facility] [id number] [place] [address] 01411- 3253 20 Mar, 2017 Nausea R11.0 [facility] [id number] [place] [address] 05819- 3932 13 Mar, 2017 Screening for STD sexually transmitted disease Z11.3 ; Vaginal candidiasis B37.3 and Irritable bowel syndrome with diarrhea K58.0 [facility] [id number] [place] [address] 94576- 0197 Mar, [facility] [id number] [place] [address] 83963- 5319 Feb, ADHD (attention deficit hyperactivity disorder), combined type F90.2 [facility] [id number] [place] [address] 27963- 2912 Feb, Depressive disorder, not elsewhere classified F32.9 ; Anxiety state F41.1 and ADHD (attention deficit hyperactivity disorder), combined type F90.2 [facility] [id number] [place] [address] 52499- 9291 Feb, Depressive disorder, not elsewhere classified F32.9 ; Anxiety state F41.1 and ADHD (attention deficit hyperactivity disorder), combined type F90.2 [facility] [id number] [place] [address] 38904- 7547 Feb, ADHD (attention deficit hyperactivity disorder), combined type F90.2 [facility] [id number] [place] [address] 10732 -3936 Jan, Other viral agents as the cause of diseases classified elsewhere B97.89 and Acute upper respiratory infection, unspecified J06.9 [facility] [id number] [place] [address] 77433- 1254 Jan, ADHD (attention deficit hyperactivity disorder), combined type F90.2 ; Major depressive disorder, single episode, mild F32.0 and Anxiety disorder, unspecified type F41.9 [facility] [id number] [place] [address] 28364- 5945 Jan, [facility] [id number] [place] [address] 97462- 7221 Jan, ADHD (attention deficit hyperactivity disorder), combined type F90.2 ; Major depressive disorder, single episode, mild F32.0 and Anxiety disorder, unspecified type F41.9 [facility] [id number] [place] [address] 79866- 0895 Dec, Irritable bowel syndrome with diarrhea K58.0 and Lower abdominal pain R10.30 [facility] [id number] [place] [address] 06912- 4926 09 Dec, 2016 Hospital discharge follow-up Z09 ; Mesenteric adenitis I88.0 ; IBD (inflammatory bowel disease) K52.9 and Nausea R11.0 [facility] [id number] [place] [address] 37485- 4004 Nov, ADHD (attention deficit hyperactivity disorder), combined type F90.2 ; Major depressive disorder, single episode, mild F32.0 and Anxiety disorder, unspecified type F41.9 [facility] [address], [place] [address]- 7208 Nov, Anxiety state F41.1 ; ADHD (attention deficit hyperactivity disorder), combined type F90.2 ; Major depressive disorder, single episode, mild F32.0 and Anxiety disorder, unspecified type F41.9 [facility] [id number] [place] [address] 07868- 1015 Oct, Anxiety state F41.1 ; ADHD (attention deficit hyperactivity disorder), combined type F90.2 ; Major depressive disorder, single episode, mild F32.0 and Anxiety disorder, unspecified type F41.9 [facility] [id number] [place] [address] 77371- 8448 Oct, ADHD (attention deficit hyperactivity disorder), combined type F90.2 ; Major depressive disorder, single episode, mild F32.0 and Anxiety disorder, unspecified type F41.9 [facility] [id number] [place] [address] 89755- 8656 Oct, Major depressive disorder, single episode, mild F32.0 ; Anxiety state F41.1 ; ADHD (attention deficit hyperactivity disorder), combined type F90.2 and Depressive disorder, not elsewhere classified F32.9 [facility] [address], [place] [address]2092 16 Oct, 2016 [facility] [id number] [place] [address] 16539 -4970 Oct, Cellulitis L03.90 and Plantar wart of right foot B07.0 [facility] [id number] [place] [address] 82052- 0875 Aug, ADHD (attention deficit hyperactivity disorder), combined type F90.2 ; Major depressive disorder, single episode, mild F32.0 and Anxiety disorder, unspecified type F41.9 [facility] [address], [place] [address]- 2621 Aug, [facility] [id number] [place] [address] 71786- 3227 Jul, ADHD (attention deficit hyperactivity disorder), combined type F90.2 [facility] [id number] [place] [address] 45844- 8726 Jul, Mesenteric adenitis I88.0 [facility] [id number] [place] [address] 85269- 1036 June, [facility] [id number] [place] [address] 55603 -2532 June, Lower abdominal pain R10.30 [facility] [id number] [place] [address] 65026- 1923 June, [facility] [id number] [place] [address] 94104- 4371 June, ADHD (attention deficit hyperactivity disorder), combined type F90.2 and Major depressive disorder, single episode, mild F32.0 [facility] [id number] [place] [address] 07244- 8971 May, [facility] [id number] [place] [address] 66038- 9697 May, ADHD (attention deficit hyperactivity disorder), combined type F90.2 and Major depressive disorder, single episode, mild F32.0 [facility] [id number] [place] [address] 42951 -5976 Apr, Abdominal pain R10.9 and Gastroenteritis and colitis, viral A08.4 [facility] [id number] [place] [address] 85222- 9343 Apr, [facility] [id number] [place] [address] 65170 -4746 Mar, Acute urticaria L50.8 [facility] [id number] [place] [address] 85120- 9925 Mar, [facility] [address] [place] [address]- 7864 Feb, [facility] [address] 39164 -3001 Feb, Gastroenteritis K52.9 [facility] [address] 75063- 4240 Feb, Irritant contact dermatitis due to cosmetics L24.3 [facility] [address] 41828- 2497 Jan, [facility] [address] 95342- 0875 Jan, [facility] [address] 63580- 3559 Jan, ADHD (attention deficit hyperactivity disorder), combined type F90.2 and Major depressive disorder, single episode, mild F32.0 [facility] [address] 56418 -8212 Dec, Flexural eczema L20.82 [facility] [address] 01646- 2763 Dec, Encounter for test Z32.00 [facility] [address] 71786- 8116 Dec, [facility] [id number] [place] [address] 27914- 5377 Dec, [facility] [address] 59530- 0642 Dec, [facility] [address] 54287 -5531 Nov, Sore throat J02.9 and Pharyngitis, unspecified etiology J02.9 [facility] [id number] [place] [address] 24280- 8796 Nov, [facility] [address] 41404- 6354 Nov, [facility] [id number] [place] [address] 30528- 4979 Nov, Generalized abdominal pain R10.84 and Slow transit constipation K59.01 [facility] [id number] [place] [address] [id number] Nov, Pharyngitis, unspecified etiology J02.9 and Rhinitis, unspecified type J31.0 [facility] [id number] [place] [address] 91334- 2615 Oct, Depressive disorder, not elsewhere classified F32.9 and ADHD (attention deficit hyperactivity disorder), combined type F90.2 [facility] [id number] [place] [address] 73611- 9059 Oct, [facility] [id number] [place] [address] 17532- 2885 Oct, [facility] [id number] [place] [address] 02331 -8046 Oct, Strep throat J02.0 [facility] [id number] [place] [address] 52054- 7456 16 Oct, 2015 [facility] [id number] [place] [address] 22996- 2342 Oct, Well woman exam with routine gynecological exam Z01.419 and Screening for STD sexually transmitted disease Z11.3 [facility] [id number] [place] [address] 61164- 8919 Sep, ADHD (attention deficit hyperactivity disorder), combined type F90.2 ; Anxiety state F41.1 and Depressive disorder, not elsewhere classified F32.9 [facility] [id number] [place] [address] 74078- 8653 Sep, ADHD (attention deficit hyperactivity disorder), combined type F90.2 and Depressive disorder, not elsewhere classified F32.9 [facility] [id number] [place] [address] 21862- 6348 Aug, [facility] [address], [place] [address]- 5191 Aug, ADHD (attention deficit hyperactivity disorder), combined type F90.2 and Depressive disorder, not elsewhere classified F32.9 [facility] [address], [place] [address]- 4463 Aug, ADHD (attention deficit hyperactivity disorder), combined type F90.2 ; Anxiety state F41.1 and Depressive disorder, not elsewhere classified F32.9 [facility] [address], [place] [address]- 3915 Aug, [facility] [id number] [place] [address] 09145- 4448 Aug, [facility] [address], [place] [address]- 8519 Jul, ADHD (attention deficit hyperactivity disorder), combined type F90.2 ; Depressive disorder, not elsewhere classified F32.9 and Anxiety state F41.1 [facility] [address], [place] [address]- 0588 Jul, [facility] [id number] [place] [address] 48412- 7250 Jul, ADHD (attention deficit hyperactivity disorder), combined type F90.2 ; Anxiety state F41.1 and Depressive disorder, not elsewhere classified F32.9 [facility] [address], [place] [address]- 5327 June, [facility] [address] [address] June, Constipation K59.00 [facility] [id number] [place] [address] 97045- 2076 May, Constipation K59.00 [facility] [address], [place] [address] -0146 20 Apr, 2016 Irritable bowel syndrome with diarrhea K58.0 [facility] [address] [id number] [place] [address]- 1995 15 May, 2015 [facility] [address] [id number] [place] [address]- 1818 15 May, 2015 [facility] [address] [facility] [id number] [place] [address]- 7947 14 May, 2014 [facility] [address] [id number] [place] [address]- 5754 13 May, 2014 [facility] [address] [id number] [place] [address]- 5602 Jan, [facility] [address] [facility] [id number] [place] [address]- 0920 Jan, [facility] [address] [facility] [id number] [place] [address]- 8825 Jan, [facility] [address] [facility] [id number], [place] [address]- 5227 Jan, [facility] [address] [facility] [id number] [place] [address]- 5329 Jan, [facility] [address] [facility] [id number] [place] [address]- 3465 Jan, [facility] [address] [facility] [id number], [place] [address]- 3712 Nov, [facility] [place] [facility] [address] [facility] [id number], [place] [address]- 6412 Nov, [facility] [place] [facility] [address] [facility] [id number] [place] [address]- 5479 Oct, [facility] [place] [facility] [address] [facility] [id number], [place] [address]- 6468 Oct, [facility] [place] [facility] [address] [facility] [id number], [place] [address]- 2684 Sep, [facility] [address] [id number] [place] [address]- 1992 Sep, [facility] [place] [facility] [address] [id number] [place] [address]- 4247 Aug, [facility] [place] [facility] [address] [id number] [place] [address]- 3333 Aug, [facility] [place] [facility] [address] [id number] [place] [address]- 5674 Aug, [facility] [place] [facility] [address] [id number] [place] [address]- 9051 Aug, [facility] [place] [facility] [address] [id number] [place] [address]- 5824 Aug, [facility] [place] [facility] [address] [id number] [place] [address]- 6896 Aug, [facility] [place] [facility] [address] [id number] [place] [address]- 4593 Aug, [facility] [place] [facility] [address] [id number] [place] [address]- 0064 Aug, [facility] [place] [facility] [address] [id number] [place] [address]- 2029 Jul, [facility] [place] [facility] [address] [id number] [place] [address]- 7927 Jul, [facility] [place] [facility] [address] [id number] [place] [address]- 7083 Jul, [facility] [place] [facility] [address] [id number] [place] [address]- 8176 Jul, [facility] [place] [facility] [address] [id number] [place] [address]- 9144 Jul, [facility] [place] [facility] [address] [id number] [place] [address]- 5580 Jul, [facility] [place] [facility] [address] [id number] [place] [address]- 3507 Jul, [facility] [place] [facility] [address] [id number] [place] [address]- 9073 Jul, [facility] [place] [facility] [address] [id number] [place] [address]- 6065 Jul, [facility] [place] [facility] [address] [id number] [place] [address]- 3951 June, [facility] [place] [facility] [address] [id number] [place] [address]- 3196 June, [facility] [place] [facility] [address] [id number] [place] [address]- 1125 May, [facility] [place] [facility] [address] [id number] [place] [address]- 6434 May, [facility] [place] [facility] [address] [id number] [place] [address]- 3832 May, [facility] [place] [facility] [address] [id number] [place] [address]- 1597 May, [facility] [place] [facility] [address] [id number] [place] [address]- 2823 May, [facility] [place] [facility] [address] [id number] [place] [address]- 6554 May, [facility] [place] [facility] [address] [id number] [place] [address]- 4191 May, [facility] [place] [facility] [address] [id number] [place] [address]- 1690 May, [facility] [place] [facility] [address] [id number] [place] [address]- 6218 May, [facility] [place] [facility] [address] [id number] [place] [address]- 0277 May, [facility] [place] [facility] [address] [id number] [place] [address]- 5998 May, [facility] [place] [facility] [address] [id number] [place] [address]- 5582 May, [facility] [place] [facility] [address] [id number] [place] [address] Apr, [facility] [place] [facility] [address] [id number] [place] [address] Apr, [facility] [place] [facility] [address] [facility] [id number] [place] [address] Apr, [facility] [place] [facility] [address] [id number] [place] [address] Apr, [facility] [place] [facility] [address] [id number] [place] [address] Mar, [facility] [place] [facility] [address] [facility] [id number] [place] [address] Mar, [facility] [place] [facility] [address] [facility] [id number] [place] [address] Mar, [facility] [place] [facility] [address] [facility] [id number] [place] [address] Mar, [facility] [place] [facility] [address] [facility] [id number] [place] [address] Mar, [facility] [place] [facility] [address] [facility] [id number] [place] [address] Mar, [facility] [place] [facility] [address] [facility] [id number] [place] [address] Mar, [facility] [place] [facility] [address] [facility] [id number] [place] [address] Mar, [facility] [place] [facility] [address] [facility] [id number] [place] [address] Mar, [facility] [place] [facility] [address] [facility] [id number] [place] [address] Mar, [facility] [place] [facility] [address] [facility] [id number] [place] [address] 14 Mar, 2013 [facility] [place] [facility] [address] [id number] [place] [address] 14 Mar, 2013 [facility] [place] [facility] [address] [id number] [place] [address] Mar, [facility] [place] [facility] [address] [id number] [place] [address] Mar, [facility] [place] [facility] [address] [id number] [place] [address] Mar, [facility] [place] [facility] [address] [id number] [place] [address] Mar, [facility] [place] [facility] [address] [id number] [place] [address] Mar, [facility] [place] [facility] [address] [id number] [place] [address] Mar, [facility] [place] [facility] [address] [id number] [place] [address] Mar, [facility] [place] [facility] [address] [id number] [place] [address] Mar, [facility] [place] [facility] [address] [id number] [place] [address] Feb, [facility] [place] [facility] [address] [id number] [place] [address] Feb, [facility] [place] [facility] [address] [id number] [place] [address] Feb, [facility] [place] [facility] [address] [id number] [place] [address] Feb, [facility] [place] [facility] [address] [id number] [place] [address] Feb, [facility] [place] [facility] [address] [id number] [place] [address] Feb, [facility] [place] [facility] [address] [id number] [place] [address] Feb, [facility] [address] [id number] [place] [address] Feb, [facility] [address] [id number] [place] [address] Feb, [facility] [address] [id number] [place] [address] Feb, [facility] [address] [id number] [place] [address] Feb, [facility] [address] [id number] [place] [address] Feb, [facility] [address] [id number] [place] [address] Feb, [facility] [address] [id number] [place] [address] Feb, [facility] [address] [id number] [place] [address] Feb, [facility] [address] [id number] [place] [address] Feb, [facility] [address] [id number] [place] [address] Feb, [facility] [address] [id number] [place] [address] Feb, [facility] [address] [id number] [place] [address] Feb, [facility] [place] [facility] [address] [id number] [place] [address] Feb, [facility] [place] [facility] [address] [id number] [place] [address] Feb, [facility] [address] [id number] [place] [address]69 Feb, [facility] [address] [id number] [place] [address] Feb, [facility] [place] [facility] [address] [id number] [place] [address] Jan, [facility] [place] [facility] [address] [id number] [place] [address] Jan, [facility] [place] [facility] [address] [id number] [place] [address] Jan, [facility] [address] [id number] [place] [address] Jan, [facility] [place] [facility] [address] [id number] [place] [address]- [address] Jan, [facility] [place] [facility] [address] [id number] [place] [address]- [address] Jan, [facility] [place] [facility] [address] [id number] [place] [address] Jan, [facility] [place] [facility] [address] [id number] [place] [address] Jan, [facility] [place] [facility] [address] [id number] [place] [address] Jan, [facility] [place] [facility] [address] [id number], [place] [address] Jan, [facility] [place] [facility] [address] [id number], [place] [address] Jan, [facility] [place] [facility] [address] [id number] [place] [address] Jan, [facility] [place] [facility] [address] [id number] [place] [address] Jan, [facility] [place] [facility] [address] [id number], [place] [address]- [address] Dec, [facility] [place] [facility] [address] [id number], [place] [address] Dec, [facility] [place] [facility] [address] [id number] [place] [address] Dec, [facility] [place] [facility] [address] [id number], [place] [address] Dec, [facility] [place] [facility] [address] [facility] [id number] [place] [address]- 1668 Dec, [facility] [place] [facility] [address] [id number], [place] [address] Dec, [facility] [place] [facility] [address] [id number] [place] [address] Nov, [facility] [place] [facility] [address] [id number] [place] [address] Nov, [facility] [address] [facility] [id number], [place] [address] Nov, [facility] [place] [facility] [address] [id number], [place] [address] Nov, [facility] [place] [facility] [address] [facility] [id number], [place] [address] Nov, [facility] [place] [facility] [address] [facility] [id number], [place] [address] Nov, [facility] [place] [facility] [address] [id number], [place] [address] 28 Oct, 2012 [facility] [place] [facility] [address] [id number], [place] [address] 27 Oct, 2012 [facility] [place] [facility] [address] [id number], [place] [address] 26 Oct, 2012 [facility] [place] [facility] [address] [facility] [id number], [place] [address] 25 Oct, 2012 [facility] [place] [facility] [address] [facility] [id number], [place] [address] 25 Oct, 2012 [facility] [place] [facility] [address] [facility] [id number] [place] [address] Oct, [facility] [address] [facility] [id number] [place] [address] Oct, IMMUNIZATIONS No Known Immunizations SOCIAL HISTORY Never Assessed REASON FOR VISIT f/u- gurwinder guevara, Contract PLAN OF CARE Activity Details Follow Up 3 Weeks Reason: f/u VITAL SIGNS Height 59 in 2017-12-26 Weight 135.2 lbs 2017-12-26 Heart Rate 105 bpm 2017-12-26 Respiratory Rate 20 2017-12-26 BMI 27.30 kg/m2 2017-12-26 Blood pressure systolic 112 mmHg 2017-12-26 Blood pressure diastolic 60 mmHg 2017-12-26 MEDICATIONS Medication Instructions Dosage Frequency Start Date End Date Duration Status HydrOXYzine HCl 25 MG Orally three times a day as needed for anxiety 1 tablet Jan, Active Trileptal 300 MG Orally Twice a day 1 tablet 12h 11 Oct, 2017 30 days Active Pristiq 50 mg Orally Once a day 1 tablet 24h Aug, 30 days Active Flonase 50 MCG/ACT Nasally Once a day 1 spray in each nostril 24h Nov, 30 day(s) Active Concerta 27 MG Orally Once a [...]
--- OUTSIDE RECORDS SUMMARY | 2018-03-19 20:19 | XMS REPORT ---
Author Author LEXIE HUDSON Organization [facility] Address [address] [place] [address] Care Team Providers [employer] Specialist Name Role Phone LEXIE HUDSON Unavailable PROBLEMS Type Condition ICD9-CM Code EAC65-CV Code Onset Dates Condition Status SNOMED Code Problem ADHD (attention deficit hyperactivity disorder), combined type F90.2 Active 43106569 Problem Rhinitis, unspecified type J31.0 Active 53163542 Problem Depressive disorder, not elsewhere classified F32.9 Active 66809860 Problem Anxiety state F41.1 Active 970864733 Problem Unspecified mood [affective] disorder F39 Active 12222395 Problem Irritable bowel syndrome with diarrhea K58.0 Active 527354256 Problem Major depressive disorder, single episode, mild F32.0 Active 41948103 Problem Slow transit constipation K59.01 Active 16741684 Problem Plantar wart of right foot B07.0 Active [id number] Problem Anxiety disorder, unspecified type F41.9 Active 777091491 ALLERGIES No Information ENCOUNTERS Encounter Location Date Diagnosis [facility] [id number] [place] [address] 09352- 7277 Jan, [facility] [id number] [place] [address] 65893- 6453 Dec, [facility] [id number] [place] [address] 52961- 5961 Dec, ADHD (attention deficit hyperactivity disorder), combined type F90.2 ; Anxiety disorder, unspecified type F41.9 and Unspecified mood [ affective] disorder F39 [facility] [id number] [place] [address] 39004- 3764 Dec, Unspecified mood [affective] disorder F39 ; Anxiety disorder , unspecified type F41.9 and ADHD (attention deficit hyperactivity disorder), combined type F90.2 [facility] [id number] [address] Nov, Other specified bacterial agents as the cause of diseases classified elsewhere B96.89 and Otitis media, unspecified, bilateral H66.93 [facility] [address] [address] Nov, Sore throat J02.9 and Acute nasopharyngitis J00 [place] [id number] [place] [address] 26719- 2147 Nov, ADHD (attention deficit hyperactivity disorder), combined type F90.2 ; Anxiety disorder, unspecified type F41.9 and Unspecified mood [ affective] disorder F39 [place] [address], [place] [address] 9[address] Oct, ADHD (attention deficit hyperactivity disorder), combined type F90.2 [place] [address], [place] [address] 5532 Oct, ADHD (attention deficit hyperactivity disorder), combined type F90.2 ; Anxiety disorder, unspecified type F41.9 and Unspecified mood [ affective] disorder F39 [place] [address], [place] [address] 8[address] Sep, ADHD (attention deficit hyperactivity disorder), combined type F90.2 [place] [id number], [place] [address] 4[address] Sep, [place] [address] [place] [address] 70337- 1536 Aug, ADHD (attention deficit hyperactivity disorder), combined type F90.2 ; Major depressive disorder, single episode, mild F32.0 and Anxiety disorder, unspecified type F41.9 [facility] [id number], [place] [address] Aug, Sore throat J02.9 ; Other specified bacterial agents as the cause of diseases classified elsewhere B96.89 and Acute tonsillitis due to other specified organisms J03.80 [facility] [address], [place] [address] Aug, ADHD (attention deficit hyperactivity disorder), combined type F90.2 [facility] [address], [place] [address] 9836 Jul, ADHD (attention deficit hyperactivity disorder), combined type F90.2 [facility] [id number] [address] 6438 June, ADHD (attention deficit hyperactivity disorder), combined type F90.2 ; Major depressive disorder, single episode, mild F32.0 and Anxiety disorder, unspecified type F41.9 [facility] [id number], [place] [address] 8[address] June, [facility] [address] [address] 5409 June, ADHD (attention deficit hyperactivity disorder), combined type F90.2 [facility] [address], [place] [address] 101[address] May, [facility] [id number] [address] 8[address] May, ADHD (attention deficit hyperactivity disorder), combined type F90.2 ; Major depressive disorder, single episode, mild F32.0 and Anxiety disorder, unspecified type F41.9 [facility] [address], [place] [address] 92[address] May, Anxiety disorder, unspecified type F41.9 [facility] [address], [place] [address] 6904 Apr, [facility] [address], [place] [address] 5331 Apr, Anxiety disorder, unspecified type F41.9 [facility] [address], [place] [address] 2681 Apr, Anxiety disorder, unspecified type F41.9 ; Major depressive disorder, single episode, mild F32.0 and ADHD (attention deficit hyperactivity disorder), combined type F90.2 [facility] [address], [place] [address] 0[address] Apr, [facility] [address], [place] [address] 3676 Apr, ADHD (attention deficit hyperactivity disorder), combined type F90.2 ; Anxiety state F41.1 ; Depressive disorder, not elsewhere classified F32.9 ; Major depressive disorder, single episode, mild F32.0 and Anxiety disorder, unspecified type F41.9 [place] [id number] [place] [address] 97048- 3924 Mar, ADHD (attention deficit hyperactivity disorder), combined type F90.2 [place] [address], [place] [address] 5062 Mar, Nausea R11.0 [place] [id number] [place] [address] 12731- 1413 13 Mar, 2017 Screening for STD sexually transmitted disease Z11.3 ; Vaginal candidiasis B37.3 and Irritable bowel syndrome with diarrhea K58.0 [facility] [address], [place] [address]- 8[address] Mar, [place] [address] [place] [address] 31698- 6028 Feb, ADHD (attention deficit hyperactivity disorder), combined type F90.2 [facility] [address] [place] [address] 39629- 9289 Feb, Depressive disorder, not elsewhere classified F32.9 ; Anxiety state F41.1 and ADHD (attention deficit hyperactivity disorder), combined type F90.2 [facility] [address], [place] [address]- 1637 Feb, Depressive disorder, not elsewhere classified F32.9 ; Anxiety state F41.1 and ADHD (attention deficit hyperactivity disorder), combined type F90.2 [facility] [address], [place] [address]- 5201 Feb, ADHD (attention deficit hyperactivity disorder), combined type F90.2 [facility] [address] [place] [address] 83400 -5502 Jan, Other viral agents as the cause of diseases classified elsewhere B97.89 and Acute upper respiratory infection, unspecified J06.9 [facility] [id number] [place] [address] 58121- 4537 Jan, ADHD (attention deficit hyperactivity disorder), combined type F90.2 ; Major depressive disorder, single episode, mild F32.0 and Anxiety disorder, unspecified type F41.9 [facility] [id number] [place] [address] 07211- 7701 Jan, [facility] [id number] [place] [address] 84687- 9851 Jan, ADHD (attention deficit hyperactivity disorder), combined type F90.2 ; Major depressive disorder, single episode, mild F32.0 and Anxiety disorder, unspecified type F41.9 [facility] [id number] [place] [address] 41177- 6545 Dec, Irritable bowel syndrome with diarrhea K58.0 and Lower abdominal pain R10.30 [facility] [address] [place] [address] 03132- 6961 Dec, Hospital discharge follow-up Z09 ; Mesenteric adenitis I88.0 ; IBD (inflammatory bowel disease) K52.9 and Nausea R11.0 [facility] [id number] [place] [address] 62570- 4876 Nov, ADHD (attention deficit hyperactivity disorder), combined type F90.2 ; Major depressive disorder, single episode, mild F32.0 and Anxiety disorder, unspecified type F41.9 [facility] [address] [place] [address] 03080- 3745 Nov, Anxiety state F41.1 ; ADHD (attention deficit hyperactivity disorder), combined type F90.2 ; Major depressive disorder, single episode, mild F32.0 and Anxiety disorder, unspecified type F41.9 [facility] [id number] [place] [address] 64929- 0041 Oct, Anxiety state F41.1 ; ADHD (attention deficit hyperactivity disorder), combined type F90.2 ; Major depressive disorder, single episode, mild F32.0 and Anxiety disorder, unspecified type F41.9 [place] [id number] [place] [address] 19374- 3794 Oct, ADHD (attention deficit hyperactivity disorder), combined type F90.2 ; Major depressive disorder, single episode, mild F32.0 and Anxiety disorder, unspecified type F41.9 [place] [id number] [place] [address] 25513- 0996 Oct, Major depressive disorder, single episode, mild F32.0 ; Anxiety state F41.1 ; ADHD (attention deficit hyperactivity disorder), combined type F90.2 and Depressive disorder, not elsewhere classified F32.9 [facility] [id number] [place] [address] 62316 -4950 Oct, [facility] [id number] [place] [address] 77788 -2318 Oct, Cellulitis L03.90 and Plantar wart of right foot B07.0 [place] [id number] [place] [address] 53954- 4964 Aug, ADHD (attention deficit hyperactivity disorder), combined type F90.2 ; Major depressive disorder, single episode, mild F32.0 and Anxiety disorder, unspecified type F41.9 [place] [id number] [place] [address] 72693- 7054 Aug, [place] [id number] [place] [address] 17689- 4243 Jul, ADHD (attention deficit hyperactivity disorder), combined type F90.2 [facility] [id number] [place] [address] 96180- 1880 Jul, Mesenteric adenitis I88.0 [facility] [id number] [place] [address] 58987- 5106 June, [facility] [id number] [place] [address] 69032 -4266 June, Lower abdominal pain R10.30 [facility] [address] 88685- 8032 June, [place] [address] 48449- 3570 June, ADHD (attention deficit hyperactivity disorder), combined type F90.2 and Major depressive disorder, single episode, mild F32.0 [place] [id number] [place] [address] 96848- 5242 May, [place] [id number] [place] [address] 59591- 9752 May, ADHD (attention deficit hyperactivity disorder), combined type F90.2 and Major depressive disorder, single episode, mild F32.0 [facility] [id number] [place] [address] 52179 -3675 Apr, Abdominal pain R10.9 and Gastroenteritis and colitis, viral A08.4 [place] [id number] [place] [address] 81567- 4925 Apr, [facility] [id number] [place] [address] 81219 -1689 Mar, Acute urticaria L50.8 [place] [address] 03344- 7118 Mar, [facility] [id number] [place] [address] 75370- 3092 Feb, [facility] [address] 64291 -1748 Feb, Gastroenteritis K52.9 [place] [address] 75288- 1640 Feb, Irritant contact dermatitis due to cosmetics L24.3 [facility] [address] 10277- 6081 Jan, [place] [address] 83723- 5804 Jan, [place] [address] 20872- 2289 Jan, ADHD (attention deficit hyperactivity disorder), combined type F90.2 and Major depressive disorder, single episode, mild F32.0 [facility] [address] 57841 -4862 Dec, Flexural eczema L20.82 [place] [address] 24083- 8962 Dec, Encounter for test Z32.00 [place] [address] 27343- 3556 Dec, [place] [address] 04069- 8349 Dec, [place] [address] 64718- 6950 Dec, [facility] [address] 25134 -2465 Nov, Sore throat J02.9 and Pharyngitis, unspecified etiology J02.9 [place] [address] 68850- 2053 Nov, [place] [address] 53497- 5943 Nov, [place] [address] 63910- 1661 Nov, Generalized abdominal pain R10.84 and Slow transit constipation K59.01 [facility] [id number] [place] [address] [phone] Nov, Pharyngitis, unspecified etiology J02.9 and Rhinitis, unspecified type J31.0 [facility] [id number] [place] [address] 76497- 3913 Oct, Depressive disorder, not elsewhere classified F32.9 and ADHD (attention deficit hyperactivity disorder), combined type F90.2 [facility] [id number] [place] [address] 97790- 0179 Oct, [facility] [address] 94628- 7784 Oct, [facility] [id number] [place] [address] 59337 -8157 Oct, Strep throat J02.0 [facility] [id number] [place] [address] 60279- 0918 Oct, [facility] [id number] [place] [address] 68379- 4077 Oct, Well woman exam with routine gynecological exam Z01.419 and Screening for STD sexually transmitted disease Z11.3 [facility] [id number] [place] [address] 40383- 6474 Sep, ADHD (attention deficit hyperactivity disorder), combined type F90.2 ; Anxiety state F41.1 and Depressive disorder, not elsewhere classified F32.9 [facility] [id number] [place] [address] 42762- 8891 Sep, ADHD (attention deficit hyperactivity disorder), combined type F90.2 and Depressive disorder, not elsewhere classified F32.9 [facility] [id number] [place] [address] 06826- 8463 Aug, [facility] [id number] [place] [address] 39867- 8998 Aug, ADHD (attention deficit hyperactivity disorder), combined type F90.2 and Depressive disorder, not elsewhere classified F32.9 [facility] [id number] [place] [address] 04270- 2717 Aug, ADHD (attention deficit hyperactivity disorder), combined type F90.2 ; Anxiety state F41.1 and Depressive disorder, not elsewhere classified F32.9 [facility] [id number] [place] [address] 12496- 7648 Aug, [facility] [id number] [place] [address] 63942- 9639 Aug, [facility] [id number] [place] [address] 15924- 8796 Jul, ADHD (attention deficit hyperactivity disorder), combined type F90.2 ; Depressive disorder, not elsewhere classified F32.9 and Anxiety state F41.1 [facility] [id number] [place] [address] 60573- 4959 Jul, [facility] [id number] [place] [address] 94489- 5481 Jul, ADHD (attention deficit hyperactivity disorder), combined type F90.2 ; Anxiety state F41.1 and Depressive disorder, not elsewhere classified F32.9 [facility] [id number] [place] [address] 55581- 6448 June, [facility] [id number] [place] [address] [phone] June, Constipation K59.00 [facility] [id number] [place] [address] 61957- 7858 May, Constipation K59.00 [facility] [id number] [place] [address] 97317 -5136 May, Irritable bowel syndrome with diarrhea K58.0 [facility] [id number] [place] [address] 23886- 0547 May, [facility] [place] [facility] [address] [id number] [place] [address]- 1942 15 May, 2015 [facility] [place] [facility] [address] [id number] [place] [address]- 3210 14 May, 2014 [facility] [place] [facility] [address] [id number] [place] [address]- 4477 13 May, 2014 [facility] [place] [facility] [address] [id number] [place] [address]- 3043 Jan, [facility] [place] [facility] [address] [id number] [place] 9691 Jan, [facility] [place] [facility] [address] [id number] [place] [address]- 0858 Jan, [facility] [place] [facility] [address] [id number] [place] [address]- 7260 Jan, [facility] [place] [facility] [address] [id number] [place] [address]- 8521 Jan, [facility] [place] [facility] [address] [id number] [place] [address]- 0057 Jan, [facility] [place] [facility] [address] [id number] [place] [address]- 1710 Nov, [facility] [place] [facility] [address] [id number] [place] [address]- 7641 Nov, [facility] [place] [facility] [address] [id number] [place] [address]- 5465 Oct, [facility] [place] [facility] [address] [id number] [place] [address]- 8468 Oct, [facility] [place] [facility] [address] [id number] [place] [address]- 2986 Sep, [facility] [place] [facility] [address] [id number] [place] 5400 Sep, [facility] [place] [facility] [address] [id number] [place] [address]- 4851 Aug, 2013 [facility] [place] [facility] [address] [id number] [place] [address]- 9759 Aug, 2013 [facility] [place] [facility] [address] [id number] [place] [address]- 2170 Aug, [facility] [place] [facility] [address] [id number] [place] [address]- 9618 Aug, [facility] [place] [facility] [address] [id number] [place] [address]- 6340 Aug, 2013 [facility] [place] [facility] [address] [id number] [place] [address]- 3650 Aug, [facility] [place] [facility] [address] [id number] [place] [address]- 3487 Aug, [facility] [place] [facility] [address] [id number] [place] [address]- 1204 Aug, [facility] [place] [facility] [address] [id number] [place] [address]- 0221 Jul, [facility] [place] [facility] [address] [id number] [place] [address]- 3511 Jul, [facility] [place] [facility] [address] [id number] [place] [address]- 5566 Jul, [facility] [place] [facility] [address] [id number] [place] [address]- 6269 Jul, [facility] [place] [facility] [address] [id number] [place] [address]- 1762 Jul, [facility] [place] [facility] [address] [id number] [place] [address]- 6197 Jul, [facility] [place] [facility] [address] [id number] [place] [address]- 1971 Jul, [facility] [place] [facility] [address] [id number] [place] [address]- 5032 Jul, [facility] [place] [facility] [address] [id number] [place] [address]- 0655 Jul, [facility] [address] [id number] [place] [address]- 4912 June, [facility] [place] [facility] [address] [id number] [place] [address]- 3936 June, [facility] [address] [id number] [place] [address]- 1769 May, [facility] [place] [facility] [address] [id number] [place] [address]- 9057 May, [facility] [place] [facility] [address] [id number] [place] [address]- 5553 May, [facility] [place] [facility] [address] [id number] [place] [address]- 1813 May, [facility] [place] [facility] [address] [id number] [place] [address]- 1080 May, [facility] [address] [id number] [place] [address]- 2966 May, [facility] [place] [facility] [address] [id number] [place] [address]- 0462 May, [facility] [place] [facility] [address] [id number] [place] [address]- 4765 May, [facility] [place] [facility] [address] [id number] [place] [address]- 8894 May, [facility] [place] [facility] [address] [id number] [place] [address]- 3464 May, [facility] [place] [facility] [address] [id number] [place] [address]- 7664 May, [facility] [place] [facility] [address] [id number] [place] [address]- 7434 May, [facility] [place] [facility] [address] [id number] [place] [address]- 4640 Apr, [facility] [place] [facility] [address] [id number] [place] [address]- 4386 Apr, [facility] [place] [facility] [address] [id number] [place] [address]- 7874 Apr, [facility] [place] [facility] [address] [id number] [place] [address]- 2647 Apr, [facility] [place] [facility] [address] [id number] [place] [address]- 9649 Mar, [facility] [place] [facility] [address] [id number] [place] [address]- 3960 Mar, [facility] [place] [facility] [address] [id number] [place] [address]- 8733 Mar, [facility] [place] [facility] [address] [id number] [place] [address]- 8018 Mar, [facility] [place] [facility] [address] [id number] [place] [address]- 3588 Mar, [facility] [place] [facility] [address] [id number] [place] [address]- 1143 Mar, [facility] [place] [facility] [address] [facility] [id number] [place] [address]- 3435 Mar, [facility] [place] [facility] [address] [id number] [place] [address]- 6813 Mar, [facility] [place] [facility] [address] [id number] [place] [address] Mar, [facility] [place] [facility] [address] [id number] [place] [address] Mar, [facility] [place] [facility] [address] [id number] [place] [address] 14 Mar, 2013 [facility] [place] [facility] [address] [facility] [id number] [place] [address] Mar, [facility] [place] [facility] [address] [id number] [place] [address] Mar, [facility] [place] [facility] [address] [id number] [place] [address] Mar, [facility] [place] [facility] [address] [id number] [place] [address] Mar, [facility] [place] [facility] [address] [id number] [place] [address] Mar, [facility] [place] [facility] [address] [id number] [place] [address] Mar, [facility] [place] [facility] [address] [id number] [place] [address] Mar, [facility] [place] [facility] [address] [id number] [place] [address] Mar, [facility] [place] [facility] [address] [id number] [place] [address] Mar, [facility] [place] [facility] [address] [id number] [place] [address] Feb, [facility] [place] [facility] [address] [id number] [place] [address] Feb, [facility] [place] [facility] [address] [id number] [place] [address] Feb, [facility] [place] [facility] [address] [id number] [place] [address] Feb, [facility] [place] [facility] [address] [id number] [place] [address] Feb, [facility] [place] [facility] [address] [id number] [place] [address] Feb, [facility] [place] [facility] [address] [id number] [place] [address] Feb, [facility] [place] [facility] [address] [id number] [place] [address] Feb, [facility] [place] [facility] [address] [id number] [place] [address] Feb, [facility] [place] [facility] [address] [id number] [place] [address] Feb, [facility] [place] [facility] [address] [id number] [place] [address] Feb, [facility] [place] [facility] [address] [id number] [place] [address] Feb, [facility] [place] [facility] [address] [id number] [place] [address] Feb, [facility] [place] [facility] [address] [id number] [place] [address] Feb, [facility] [place] [facility] [address] [id number] [place] [address] Feb, [facility] [place] [facility] [address] [id number] [place] [address] Feb, [facility] [place] [facility] [address] [id number] [place] [address]687 Feb, [facility] [place] [facility] [address] [id number] [place] [address] Feb, [facility] [place] [facility] [address] [id number] [place] [address] Feb, [facility] [place] [facility] [address] [id number] [place] [address] Feb, [facility] [place] [facility] [address] [id number] [place] [address] Feb, [facility] [place] [facility] [address] [id number] [place] [address] Feb, [facility] [place] [facility] [address] [id number] [place] [address] Feb, [facility] [place] [facility] [address] [id number] [place] [address] 24 Jan, 2013 [facility] [address] [id number] [place] [address] 24 Jan, 2013 [facility] [place] [facility] [address] [id number] [place] [address] Jan, [facility] [place] [facility] [address] [id number] [place] [address]- [address] Jan, [facility] [place] [facility] [address] [id number] [place] [address] 18 Jan, 2013 [facility] [place] [facility] [address] [id number] [place] [address] Jan, [facility] [address] [id number] [place] [address] Jan, [facility] [address] [id number] [place] [address] Jan, [facility] [address] [id number] [place] [address] Jan, [facility] [place] [facility] [address] [id number] [place] [address] Jan, [facility] [place] [facility] [address] [id number] [place] [address] Jan, [facility] [place] [facility] [address] [id number] [place] [address] 69[address] Jan, [facility] [place] [facility] [address] [id number] [place] [address] Jan, [facility] [place] [facility] [address] [id number] [place] [address]- [address]99 Dec, [facility] [place] [facility] [address] [id number] [place] [address] Dec, [facility] [place] [facility] [address] [id number] [place] [address] Dec, [facility] [place] [facility] [address] [id number] [place] [address] Dec, [facility] [place] [facility] [address] [id number] [place] [address] Dec, [facility] [place] [facility] [address] [id number] [place] [address]284 Dec, [facility] [place] [facility] [address] [id number], [place] [address] Nov, [facility] [place] [facility] [address] [id number] [place] [address] Nov, [facility] [place] [facility] [address] [id number] [place] [address] Nov, [facility] [place] [facility] [address] [id number] [place] [address]- 8775 Nov, [facility] [place] [facility] [address] [id number], [place] [address] Nov, [facility] [place] [facility] [address] [id number], [place] [address] Nov, [facility] [place] [facility] [address] [id number], [place] [address] 28 Oct, 2012 [facility] [place] [facility] [address] [id number], [place] [address] 27 Oct, 2012 [facility] [place] [facility] [address] [id number], [place] [address] 26 Oct, 2012 [facility] [place] [facility] [address] [id number], [place] [address] 254 25 Oct, 2012 [facility] [place] [facility] [address] [id number], [place] [address] 25 Oct, 2012 [facility] [place] [facility] [address] [id number], [place] [address] 18 Oct, 2012 [facility] [place] [facility] [address] [facility] [id number] [place] [address] 13 Oct, 2012 IMMUNIZATIONS No Known Immunizations SOCIAL HISTORY Never Assessed REASON FOR VISIT Crisis intervention. PLAN OF CARE VITAL SIGNS MEDICATIONS Unknown Medications RESULTS No Results PROCEDURES Procedure Date Ordered Result Body Site Psychotherapy, patient &/family, 30 minutes, established patient Dec 22, 2017 INSTRUCTIONS MEDICATIONS ADMINISTERED No Known Medications [...]
--- OUTSIDE RECORDS SUMMARY | 2018-03-19 20:20 | XMS REPORT ---
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 Inspector Name Role Phone VARINDER GARNICA Unavailable Unavailable PROBLEMS Type Condition ICD9-CM Code OHY87-SN Code Onset Dates Condition Status SNOMED Code Problem ADHD (attention deficit hyperactivity disorder), combined type F90.2 Active 24574652 Problem Rhinitis, unspecified type J31.0 Active 66337771 Problem Depressive disorder, not elsewhere classified F32.9 Active 50840560 Problem Anxiety state F41.1 Active 568234645 Problem Unspecified mood [affective] disorder F39 Active 21184638 Problem Irritable bowel syndrome with diarrhea K58.0 Active 959371733 Problem Major depressive disorder, single episode, mild F32.0 Active 27594832 Problem Slow transit constipation K59.01 Active 91411314 Problem Plantar wart of right foot B07.0 Active [id number] Problem Anxiety disorder, unspecified type F41.9 Active 557946376 ALLERGIES No Known Allergies ENCOUNTERS Encounter Location Date Diagnosis [facility] [id number] [place] [address] 72358- 4921 Dec, [facility] [id number] [place] [address] 62350 -9616 Nov, Other specified bacterial agents as the cause of diseases classified elsewhere B96.89 and Otitis media, unspecified, bilateral H66.93 [facility] [id number] [place] [address] 20061 -3377 Nov, Sore throat J02.9 and Acute nasopharyngitis J00 [facility] [id number] [place] [address] 78945- 8423 Nov, ADHD (attention deficit hyperactivity disorder), combined type F90.2 ; Anxiety disorder, unspecified type F41.9 and Unspecified mood [ affective] disorder F39 [facility] [id number] [address] 1289 Oct, ADHD (attention deficit hyperactivity disorder), combined type F90.2 [facility] [address] [address] Oct, ADHD (attention deficit hyperactivity disorder), combined type F90.2 ; Anxiety disorder, unspecified type F41.9 and Unspecified mood [ affective] disorder F39 [facility] [address] [address] 3899 Sep, ADHD (attention deficit hyperactivity disorder), combined type F90.2 [facility] [address] [address] 17[address] Sep, [facility] [address] [address] 4282 Aug, ADHD (attention deficit hyperactivity disorder), combined type F90.2 ; Major depressive disorder, single episode, mild F32.0 and Anxiety disorder, unspecified type F41.9 [facility] [id number] [address] Aug, Sore throat J02.9 ; Other specified bacterial agents as the cause of diseases classified elsewhere B96.89 and Acute tonsillitis due to other specified organisms J03.80 [facility] [id number] [address] 7675 Aug, ADHD (attention deficit hyperactivity disorder), combined type F90.2 [facility] [id number] [address] 2434 Jul, ADHD (attention deficit hyperactivity disorder), combined type F90.2 [facility] [id number] [address] 2739 June, ADHD (attention deficit hyperactivity disorder), combined type F90.2 ; Major depressive disorder, single episode, mild F32.0 and Anxiety disorder, unspecified type F41.9 [facility] [address] [address] 59[address] June, [facility] [id number] [place] [address] 39241- 3720 June, ADHD (attention deficit hyperactivity disorder), combined type F90.2 [facility] [address] [address] 8440 May, [facility] [id number] [place] [address] 06675- 7513 May, ADHD (attention deficit hyperactivity disorder), combined type F90.2 ; Major depressive disorder, single episode, mild F32.0 and Anxiety disorder, unspecified type F41.9 [facility] [address] [address] 5669 May, Anxiety disorder, unspecified type F41.9 [facility] [id number] [address]- 9482 Apr, [facility] [address] [address] 1400 Apr, Anxiety disorder, unspecified type F41.9 [facility] [address] [address] 2263 Apr, Anxiety disorder, unspecified type F41.9 ; Major depressive disorder, single episode, mild F32.0 and ADHD (attention deficit hyperactivity disorder), combined type F90.2 [facility] [address] [address]- 1395 Apr, [facility] [address] [address]- 6363 Apr, ADHD (attention deficit hyperactivity disorder), combined type F90.2 ; Anxiety state F41.1 ; Depressive disorder, not elsewhere classified F32.9 ; Major depressive disorder, single episode, mild F32.0 and Anxiety disorder, unspecified type F41.9 [facility] [address] [address]- 1534 28 Mar, 2017 ADHD (attention deficit hyperactivity disorder), combined type F90.2 [facility] [id number] [place] [address] 77614- 8699 20 Mar, 2017 Nausea R11.0 [facility] [id number] [place] [address] 35975- 4039 13 Mar, 2017 Screening for STD sexually transmitted disease Z11.3 ; Vaginal candidiasis B37.3 and Irritable bowel syndrome with diarrhea K58.0 [facility] [id number] [place] [address] 23719- 9384 04 Mar, 2017 [facility] [id number] [place] [address] 58844- 0613 Feb, ADHD (attention deficit hyperactivity disorder), combined type F90.2 [facility] [id number] [place] [address] 84117- 9453 Feb, Depressive disorder, not elsewhere classified F32.9 ; Anxiety state F41.1 and ADHD (attention deficit hyperactivity disorder), combined type F90.2 [facility] [id number] [place] [address] 64855- 7164 Feb, Depressive disorder, not elsewhere classified F32.9 ; Anxiety state F41.1 and ADHD (attention deficit hyperactivity disorder), combined type F90.2 [facility] [address] [place] [address] 23290- 2929 Feb, ADHD (attention deficit hyperactivity disorder), combined type F90.2 [facility] [address] [place] [address] 91672 -1647 Jan, Other viral agents as the cause of diseases classified elsewhere B97.89 and Acute upper respiratory infection, unspecified J06.9 [facility] [address] [place] [address] 15751- 0259 Jan, ADHD (attention deficit hyperactivity disorder), combined type F90.2 ; Major depressive disorder, single episode, mild F32.0 and Anxiety disorder, unspecified type F41.9 [place] [address] [address]- 5963 Jan, [place] [id number] [place] [address] 30878- 9238 Jan, ADHD (attention deficit hyperactivity disorder), combined type F90.2 ; Major depressive disorder, single episode, mild F32.0 and Anxiety disorder, unspecified type F41.9 [place] [address] [address]- 8732 Dec, Irritable bowel syndrome with diarrhea K58.0 and Lower abdominal pain R10.30 [place] [id number] [place] [address] 08459- 6207 Dec, Hospital discharge follow-up Z09 ; Mesenteric adenitis I88.0 ; IBD (inflammatory bowel disease) K52.9 and Nausea R11.0 [place] [address] [address]- 2507 Nov, ADHD (attention deficit hyperactivity disorder), combined type F90.2 ; Major depressive disorder, single episode, mild F32.0 and Anxiety disorder, unspecified type F41.9 [place] [address] [address]- 6961 Nov, Anxiety state F41.1 ; ADHD (attention deficit hyperactivity disorder), combined type F90.2 ; Major depressive disorder, single episode, mild F32.0 and Anxiety disorder, unspecified type F41.9 [place] [id number] [address]- 9089 Oct, Anxiety state F41.1 ; ADHD (attention deficit hyperactivity disorder), combined type F90.2 ; Major depressive disorder, single episode, mild F32.0 and Anxiety disorder, unspecified type F41.9 [place] [id number] [address]- 6229 Oct, ADHD (attention deficit hyperactivity disorder), combined type F90.2 ; Major depressive disorder, single episode, mild F32.0 and Anxiety disorder, unspecified type F41.9 [facility] [id number] [place] [address] 30722- 8664 Oct, Major depressive disorder, single episode, mild F32.0 ; Anxiety state F41.1 ; ADHD (attention deficit hyperactivity disorder), combined type F90.2 and Depressive disorder, not elsewhere classified F32.9 [facility] [id number] [place] [address] 88732 -7905 Oct, [facility] [id number] [place] [address] 34165 -5379 Oct, Cellulitis L03.90 and Plantar wart of right foot B07.0 [facility] [id number] [place] [address] 17198- 9474 Aug, ADHD (attention deficit hyperactivity disorder), combined type F90.2 ; Major depressive disorder, single episode, mild F32.0 and Anxiety disorder, unspecified type F41.9 [facility] [id number] [place] [address] 14772- 6884 Aug, [place] [id number] [place] [address] 88871- 3949 Jul, ADHD (attention deficit hyperactivity disorder), combined type F90.2 [facility] [id number] [place] [address] 37096- 4183 Jul, Mesenteric adenitis I88.0 [facility] [id number] [place] [address] 72663- 5605 June, [facility] [id number] [place] [address] 98509 -1392 June, Lower abdominal pain R10.30 [facility] [id number] [place] [address] 95193- 4859 June, [facility] [id number] [place] [address] 08250- 2440 June, ADHD (attention deficit hyperactivity disorder), combined type F90.2 and Major depressive disorder, single episode, mild F32.0 [facility] [id number] [place] [address] 63285- 2038 May, [facility] [id number] [place] [address] 25594- 7837 May, ADHD (attention deficit hyperactivity disorder), combined type F90.2 and Major depressive disorder, single episode, mild F32.0 [facility] [id number] [place] [address] 45951 -5659 Apr, Abdominal pain R10.9 and Gastroenteritis and colitis, viral A08.4 [place] [id number] [place] [address] 06663- 1697 Apr, [facility] [address] 74619 -0640 Mar, Acute urticaria L50.8 [facility] [id number] [place] [address] 15666- 8379 Mar, [facility] [id number] [place] [address] 62309- 9592 Feb, [facility] [id number] [place] [address] 79219 -5011 Feb, Gastroenteritis K52.9 [place] [id number] [place] [address] 43823- 4605 Feb, Irritant contact dermatitis due to cosmetics L24.3 [facility] [id number] [place] [address] 20031- 5361 Jan, [facility] [id number] [place] [address] 73392- 7258 Jan, [facility] [id number] [place] [address] 11479- 0704 Jan, ADHD (attention deficit hyperactivity disorder), combined type F90.2 and Major depressive disorder, single episode, mild F32.0 [facility] [address] 70339 -5855 Dec, Flexural eczema L20.82 [facility] [address] 58766- 9673 Dec, Encounter for test Z32.00 [facility] [address] 11568- 6171 Dec, [facility] [address] 64685- 8200 Dec, [facility] [address] 01088- 6365 Dec, [facility] [address] 34504 -4277 Nov, Sore throat J02.9 and Pharyngitis, unspecified etiology J02.9 [facility] [address] 32832- 1243 Nov, [facility] [address] 35103- 1847 Nov, [facility] [address] 44821- 3373 Nov, Generalized abdominal pain R10.84 and Slow transit constipation K59.01 [facility] [id number] [place] [address] [phone] Nov, Pharyngitis, unspecified etiology J02.9 and Rhinitis, unspecified type J31.0 [facility] [address] 16458- 6647 Oct, Depressive disorder, not elsewhere classified F32.9 and ADHD (attention deficit hyperactivity disorder), combined type F90.2 [facility] [address] 60198- 5910 Oct, [facility] [address] [address]- 8710 Oct, [facility] [address] [address] -0803 Oct, Strep throat J02.0 [facility] [address] [address]- 6861 16 Oct, 2015 [facility] [id number] [place] [address] 02615- 7942 Oct, Well woman exam with routine gynecological exam Z01.419 and Screening for STD sexually transmitted disease Z11.3 [place] [id number] [place] [address] 18839- 8611 Sep, ADHD (attention deficit hyperactivity disorder), combined type F90.2 ; Anxiety state F41.1 and Depressive disorder, not elsewhere classified F32.9 [facility] [id number] [address]- 1361 Sep, ADHD (attention deficit hyperactivity disorder), combined type F90.2 and Depressive disorder, not elsewhere classified F32.9 [place] [address] [address]- 9647 Aug, [facility] [address] [address]- 5546 Aug, ADHD (attention deficit hyperactivity disorder), combined type F90.2 and Depressive disorder, not elsewhere classified F32.9 [facility] [address] [address]- 9542 Aug, ADHD (attention deficit hyperactivity disorder), combined type F90.2 ; Anxiety state F41.1 and Depressive disorder, not elsewhere classified F32.9 [facility] [address] [address]- 7356 Aug, [facility] [address] [address]- 4140 Aug, [facility] [address] [address]- 6386 Jul, ADHD (attention deficit hyperactivity disorder), combined type F90.2 ; Depressive disorder, not elsewhere classified F32.9 and Anxiety state F41.1 [facility] [id number] [place] [address] 06669- 0400 Jul, [facility] [id number] [place] [address] 63194- 6066 Jul, ADHD (attention deficit hyperactivity disorder), combined type F90.2 ; Anxiety state F41.1 and Depressive disorder, not elsewhere classified F32.9 [facility] [id number] [place] [address] 14054- 8539 June, [facility] [id number] [place] [address] [id number] June, Constipation K59.00 [facility] [id number] [place] [address] 24158- 7670 May, Constipation K59.00 [facility] [id number] [place] [address] 34779 -5820 May, Irritable bowel syndrome with diarrhea K58.0 [facility] [id number] [place] [address] 13105- 7446 May, [facility] [address] [place] [address] 36631- 7794 May, [facility] [id number] [place] [address] 02838- 1277 May, [facility] [id number] [place] [address] 54671- 4415 May, [facility] [id number] [place] [address] 67943- 6399 Jan, [facility] [id number] [place] [address] 66993- 3385 Jan, [facility] [place] [facility] [address] [facility] [id number] [place] [address]- 0263 Jan, [facility] [place] [facility] [address] [id number] [place] [address]- 6065 Jan, [facility] [place] [facility] [address] [id number] [place] [address]- 3636 Jan, [facility] [place] [facility] [address] [id number] [place] [address]- 4162 Jan, [facility] [place] [facility] [address] [id number] [place] [address]- 1568 Nov, [facility] [place] [facility] [address] [id number] [place] [address]- 0708 Nov, [facility] [place] [facility] [address] [id number] [place] [address]- 9902 Oct, [facility] [place] [facility] [address] [id number] [place] [address]- 4733 Oct, [facility] [place] [facility] [address] [id number] [place] [address]- 9548 Sep, [facility] [place] [facility] [address] [id number] [place] [address]- 6859 Sep, [facility] [place] [facility] [address] [id number] [place] [address]- 8513 Aug, [facility] [place] [facility] [address] [id number] [place] [address]- 6689 Aug, [facility] [place] [facility] [address] [id number] [place] [address]- 2880 Aug, [facility] [place] [facility] [address] [id number] [place] [address]- 7783 Aug, [facility] [place] [facility] [address] [id number] [place] [address]- 3566 Aug, [facility] [place] [facility] [address] [id number] [place] [address]- 9608 Aug, [facility] [place] [facility] [address] [id number] [place] [address]- 8425 Aug, [facility] [place] [facility] [address] [id number] [place] [address]- 0906 Aug, [facility] [place] [facility] [address] [id number] [place] [address]- 9277 Jul, [facility] [place] [facility] [address] [id number] [place] [address]- 3668 Jul, [facility] [place] [facility] [address] [id number] [place] [address]- 2671 Jul, [facility] [place] [facility] [address] [id number] [place] [address]- 7336 Jul, [facility] [place] [facility] [address] [id number] [place] [address]- 8630 Jul, [facility] [place] [facility] [address] [id number] [place] [address]- 4919 Jul, [facility] [place] [facility] [address] [id number] [place] [address]- 9897 Jul, [facility] [place] [facility] [address] [id number] [place] [address]- 7250 Jul, [facility] [place] [facility] [address] [id number] [place] [address]- 2490 Jul, [facility] [place] [facility] [address] [id number] [place] [address]- 4131 June, [facility] [place] [facility] [address] [id number] [place] [address]- 0024 June, [facility] [place] [facility] [address] [id number] [place] [address]- 2040 May, [facility] [place] [facility] [address] [id number] [place] [address]- 1552 May, [facility] [place] [facility] [address] [id number] [place] [address]- 6853 May, [facility] [place] [facility] [address] [id number] [place] [address]- 9636 May, [facility] [place] [facility] [address] [id number] [place] [address]- 1205 May, [facility] [place] [facility] [address] [id number] [place] [address]- 5706 May, [facility] [place] [facility] [address] [id number] [place] [address]- 9739 May, [facility] [place] [facility] [address] [id number] [place] [address]- 3584 May, [facility] [place] [facility] [address] [id number] [place] [address]- 1884 May, [facility] [place] [facility] [address] [id number] [place] [address]- 9552 May, [facility] [place] [facility] [address] [id number] [place] [address]- 2754 May, [facility] [place] [facility] [address] [id number] [place] [address]- 6921 May, [facility] [place] [facility] [address] [id number] [place] [address]- 7199 Apr, [facility] [place] [facility] [address] [id number] [place] [address]- 3591 Apr, [facility] [place] [facility] [address] [id number] [place] [address]- 6952 Apr, [facility] [place] [facility] [address] [id number] [place] [address]- 5057 Apr, [facility] [place] [facility] [address] [id number] [place] [address]- 6910 Mar, [facility] [place] [facility] [address] [id number] [place] [address] Mar, [facility] [place] [facility] [address] [id number] [place] [address] Mar, [facility] [place] [facility] [address] [id number] [place] [address] Mar, [facility] [place] [facility] [address] [id number] [place] [address] Mar, [facility] [place] [facility] [address] [id number] [place] [address] Mar, 2013 [facility] [place] [facility] [address] [id number] [place] [address] Mar, [facility] [place] [facility] [address] [id number] [place] [address] Mar, [facility] [place] [facility] [address] [facility] [id number] [place] [address] Mar, [facility] [place] [facility] [address] [id number] [place] [address] Mar, [facility] [place] [facility] [address] [id number] [place] [address] 14 Mar, 2013 [facility] [place] [facility] [address] [facility] [id number] [place] [address] 14 Mar, 2013 [facility] [place] [facility] [address] [facility] [id number] [place] [address]- [address] 13 Mar, 2013 [facility] [place] [facility] [address] [id number] [place] [address] 13 Mar, 2013 [facility] [place] [facility] [address] [id number] [place] [address] Mar, [facility] [place] [facility] [address] [id number] [place] [address] Mar, 2013 [facility] [place] [facility] [address] [facility] [id number] [place] [address]- 2010 Mar, [facility] [place] [facility] [address] [id number] [place] [address] Mar, [facility] [place] [facility] [address] [id number] [place] [address] Mar, [facility] [place] [facility] [address] [id number] [place] [address] Mar, [facility] [place] [facility] [address] [id number] [place] [address] Feb, [facility] [place] [facility] [address] [id number] [place] [address] Feb, [facility] [place] [facility] [address] [id number] [place] [address] Feb, [facility] [place] [facility] [address] [id number] [place] [address] Feb, [facility] [place] [facility] [address] [id number] [place] [address] Feb, [facility] [place] [facility] [address] [id number] [place] [address] Feb, [facility] [place] [facility] [address] [id number] [place] [address] Feb, [facility] [place] [facility] [address] [id number] [place] [address] Feb, [facility] [place] [facility] [address] [id number] [place] [address] Feb, [facility] [place] [facility] [address] [id number] [place] [address] Feb, [facility] [place] [facility] [address] [id number] [place] [address] Feb, [facility] [place] [facility] [address] [id number] [place] [address] Feb, [facility] [place] [facility] [address] [id number] [place] [address] 17 Feb, 2013 [facility] [place] [facility] [address] [id number] [place] [address] 16 Feb, 2013 [facility] [place] [facility] [address] [id number] [place] [address] 16 Feb, 2013 [facility] [place] [facility] [address] [id number] [place] [address] 15 Feb, 2013 [facility] [place] [facility] [address] [id number] [place] [address] 15 Feb, 2013 [facility] [place] [facility] [address] [id number] [place] [address] Feb, [facility] [place] [facility] [address] [id number] [place] [address] Feb, [facility] [place] [facility] [address] [id number] [place] [address] Feb, [facility] [place] [facility] [address] [id number] [place] [address] Feb, [facility] [place] [facility] [address] [id number] [place] [address] Feb, [facility] [place] [facility] [address] [id number] [place] [address] Feb, [facility] [place] [facility] [address] [id number] [place] [address] Jan, [facility] [place] [facility] [address] [id number] [address] 24 Jan, 2013 [facility] [place] [facility] [address] [id number] [place] [address] Jan, [facility] [place] [facility] [address] [id number] [place] [address] 18 Jan, 2013 [facility] [place] [facility] [address] [id number] [place] [address] Jan, [facility] [place] [facility] [address] [id number] [place] [address] 18 Jan, 2013 [facility] [address] [id number] [place] [address] 18 Jan, 2013 [facility] [address] [id number] [place] [address] Jan, [facility] [address] [id number] [place] [address] Jan, [facility] [address] [id number] [place] [address] Jan, [facility] [address] [id number] [place] [address] Jan, [facility] [address] [id number] [place] [address] Jan, [facility] [address] [id number] [place] [address] Jan, [facility] [address] [id number] [place] [address] Dec, [facility] [address] [id number] [place] [address] Dec, [facility] [address] [facility] [id number] [place] [address] Dec, [facility] [address] [id number] [place] [address] Dec, [facility] [address] [id number] [address] 15 Dec, 2012 [facility] [address] [id number] [place] [address] Dec, [facility] [address] [facility] [id number] [place] [address] Nov, [facility] [address] [id number] [place] [address] Nov, [facility] [id number] [address] Nov, [facility] [id number] [address] Nov, [facility] [id number] [address] Nov, [facility] [id number] [place] [address] Nov, [facility] [id number] [address] 28 Oct, 2012 [facility] [id number] [place] [address]- [address] 27 Oct, 2012 [facility] [id number] [place] [address]- [address] 26 Oct, 2012 [facility] [id number] [place] [address]- [address] 25 Oct, 2012 [facility] [id number] [address] 25 Oct, 2012 [facility] [id number] [place] [address]- [address] 18 Oct, 2012 [facility] [id number] [address] 13 Oct, 2012 IMMUNIZATIONS No Known Immunizations SOCIAL HISTORY Never Assessed REASON FOR VISIT bilateral earache for 5 days. was seen in here for this complaint last mon. [email or web address] PLAN OF CARE Activity Details Follow Up prn Reason: VITAL SIGNS Height 59 in 2017-11-28 Weight 136.2 lbs 2017-11-28 Temperature 98.9 degrees Fahrenheit 2017-11-28 Heart Rate 90 bpm 2017-11-28 Respiratory Rate 20 2017-11-28 BMI 27.51 kg/m2 2017-11-28 Blood pressure systolic 108 mmHg 2017-11-28 Blood pressure diastolic 62 mmHg 2017-11-28 MEDICATIONS Medication Instructions Dosage Frequency Start Date End Date Duration Status Flonase 50 MCG/ACT Nasally Once a day 1 spray in each nostril 24h Nov, 30 day(s) Active Cetirizine HCl 10 mg Orally Once a day 1 tablet 24h Nov, Dec, 30 day(s) Active Concerta 27 MG Orally Once a day in the morning 1 tablet Oct, Active HydrOXYzine HCl 25 MG Orally three times a day as needed for anxiety 1 tablet Jan, 30 days Active Trileptal 300 MG Orally Twice a day 1 tablet 12h Oct, Active Amoxicillin 875 MG Orally every 12 hrs 1 tablet 12h Nov, Nov, 10 day(s) Active Pristiq 50 mg Orally Once a day 1 tablet 24h Aug, Active RESULTS No Results PROCEDURES No Known [...]
--- OUTSIDE RECORDS SUMMARY | 2018-03-19 20:30 | XMS REPORT | Continuity of Care Document ---
Demographics x Preferred Language Unknown Marital Status Unknown Buddhism Affiliation Unknown Race Unknown Ethnic Group Unknown Author Author [facility] Organization [facility] Address Unknown Phone Unavailable Allergies Active Description Code Type Severity Reaction Onset Reported/Identified Relationship to Patient Clinical Status Yes No Known Drug Allergies [id number] ND N/A N/A Confirmed or Verified Yes No Known Drug Allergies [id number] Drug Allergy Unknown N/A 08/06/2016 Medications Medication [...] MD V72.42 TEST POSITIVE RESULT 11/02/2012 RAJOTTE SUPERVISOR CARTOGRAPHY, JERRI A 626.0 AMENORRHEA 11/02/2012 RICOE SUPERVISOR CARTOGRAPHY, JERRI A V72.42 TEST POSITIVE RESULT 11/02/2012 GENARO JURADO MD N 626.0 AMENORRHEA 11/02/2012 GENARO JURADO MD V72.42 TEST POSITIVE RESULT 11/02/2012 ELSY PICHARDO, LEONARD K 626.0 AMENORRHEA 11/02/2012 LORAINE CHIN DOA K V72.42 TEST POSITIVE RESULT 11/02/2012 GENARO JURADO MD N 626.0 AMENORRHEA 11/02/2012 GENARO JURADO MD V72.42 TEST POSITIVE RESULT 11/02/2012 [facility] A 626.0 AMENORRHEA 11/02/2012 [facility] Mcgrath V72.42 TEST POSITIVE RESULT 11/02/2012 GENARO JURADO MD N 626.0 AMENORRHEA 11/02/2012 GENARO JURADO MD V72.42 TEST POSITIVE RESULT 11/02/2012 GENARO JURADO MD N 626.0 AMENORRHEA 11/02/2012 GENARO JURADO MD V72.42 TEST POSITIVE RESULT 11/02/2012 GENARO JURADO MD N 626.0 AMENORRHEA 11/02/2012 GENARO JURADO MD V72.42 TEST POSITIVE RESULT 11/02/2012 [facility] A 626.0 AMENORRHEA 11/02/2012 [facility] Mcgrath V72.42 TEST POSITIVE RESULT 11/02/2012 GENARO JURADO MD N 626.0 AMENORRHEA 11/02/2012 GENARO JURADO MD V72.42 TEST POSITIVE RESULT 11/02/2012 RHIANNON POLANCO, GENARO N 626.0 AMENORRHEA 11/02/2012 GENARO JURADO MD V72.42 TEST POSITIVE RESULT 11/02/2012 [facility] A 626.0 AMENORRHEA 11/02/2012 [facility] A V72.42 TEST POSITIVE RESULT 11/02/2012 RHIANNON POLANCO, GENARO N 626.0 AMENORRHEA 11/02/2012 GENARO JUARDO MD V72.42 TEST POSITIVE RESULT 11/02/2012 RHIANNON POLANCO, GENARO N 626.0 AMENORRHEA 11/02/2012 GENARO JURADO MD V72.42 TEST POSITIVE RESULT 11/02/2012 CARY SUPERVISOR CARTOGRAPHY, JOSE ALEJANDRO A 626.0 AMENORRHEA 11/02/2012 CARY SUPERVISOR CARTOGRAPHY, JOSE ALEJANDRO A V72.42 TEST POSITIVE RESULT 11/02/2012 CARY SUPERVISOR CARTOGRAPHY, JOSE ALEJANDRO A 626.0 AMENORRHEA 11/02/2012 CARY SUPERVISOR CARTOGRAPHY, JOSE ALEJANDRO A V72.42 TEST POSITIVE RESULT [...] SUPERVISION OF HIGH-RISK WITH YOUNG PRIMIGRAVIDA 11/07/2012 [facility] V23.83 SUPERVISION OF HIGH-RISK WITH YOUNG PRIMIGRAVIDA 11/07/2012 GENARO JURADO MD V23.83 SUPERVISION OF HIGH-RISK WITH YOUNG PRIMIGRAVIDA 11/07/2012 GENARO JURADO MD V23.83 SUPERVISION OF HIGH-RISK WITH YOUNG PRIMIGRAVIDA 11/07/2012 GENARO JURADO MD V23.83 SUPERVISION OF HIGH-RISK WITH YOUNG PRIMIGRAVIDA 11/07/2012 [facility] V23.83 SUPERVISION OF HIGH-RISK WITH YOUNG PRIMIGRAVIDA 11/07/2012 GENARO JURADO MD V23.83 SUPERVISION OF HIGH-RISK WITH YOUNG PRIMIGRAVIDA 11/07/2012 GENARO JURADO MD V23.83 SUPERVISION OF HIGH-RISK WITH YOUNG PRIMIGRAVIDA 11/07/2012 [facility] V23.83 SUPERVISION OF HIGH-RISK WITH YOUNG PRIMIGRAVIDA [...] K V23.9 , HIGH-RISK (UNSPEC) 11/14/2012 MICHAELOTTE SUPERVISOR CARTOGRAPHY, JERRI A V23.9 , HIGH-RISK (UNSPEC) 11/14/2012 ELSY PICHARDO, LEONARD K V23.9 , HIGH-RISK (UNSPEC) 11/14/2012 ELSY PICHARDO, LEONARD K V23.9 , HIGH-RISK (UNSPEC) 11/14/2012 GENARO JURADO MD N V23.9 , HIGH-RISK (UNSPEC) 11/14/2012 MANUEL SUPERVISOR CARTOGRAPHY, JERRI A V23.9 , HIGH-RISK (UNSPEC) 11/14/2012 GENARO JURADO MD V23.9 , HIGH-RISK (UNSPEC) 11/14/2012 ELSY PICHARDO, LEONARD K V23.9 , HIGH-RISK (UNSPEC) 11/14/2012 GENARO JURADO MD N V23.9 , HIGH-RISK (UNSPEC) 11/14/2012 [facility] A V23.9 , HIGH-RISK (UNSPEC) 11/14/2012 GENARO JURADO MD N V23.9 , HIGH-RISK (UNSPEC) 11/14/2012 GENARO JURADO MD N V23.9 , HIGH-RISK (UNSPEC) 11/14/2012 GENARO JURADO MD N V23.9 , HIGH-RISK (UNSPEC) 11/14/2012 [facility] A V23.9 , HIGH-RISK (UNSPEC) 11/14/2012 GENARO JURADO MD N V23.9 , HIGH-RISK (UNSPEC) 11/14/2012 GENARO JURADO MD N V23.9 , HIGH-RISK (UNSPEC) 11/14/2012 [facility] A V23.9 , HIGH-RISK (UNSPEC) 11/14/2012 GENARO JURADO MD N V23.9 , HIGH-RISK (UNSPEC) 11/14/2012 GENARO JURADO MD N V23.9 , HIGH-RISK (UNSPEC) 11/14/2012 CARY SUPERVISOR CARTOGRAPHY, JOSE ALEJANDRO A V23.9 , HIGH-RISK (UNSPEC) [...] DERMATITIS AND OTHER ECZEMA UNSPECIFIED CAUSE 11/22/2012 [facility] Mcgrath 530.81 GERD 11/22/2012 [facility] A 655.03 ABNORMAL TETRA SCREEN (NTD) 11/22/2012 [facility] Alcides 692.9 CONTACT DERMATITIS AND OTHER ECZEMA [...] DERMATITIS AND OTHER ECZEMA UNSPECIFIED CAUSE 11/22/2012 [facility] Mcgrath 530.81 GERD 11/22/2012 [facility] Mcgrath 655.03 ABNORMAL TETRA SCREEN (NTD) 11/22/2012 [facility] Mcgrath 692.9 CONTACT DERMATITIS AND OTHER ECZEMA UNSPECIFIED CAUSE 11/22/2012 GENARO JURAOD MD N 530.81 GERD 11/22/2012 GENARO JURADO MD N 655.03 ABNORMAL TETRA SCREEN (NTD) 11/22/2012 GENARO JURADO MD N 692.9 CONTACT DERMATITIS AND OTHER ECZEMA UNSPECIFIED CAUSE 11/22/2012 GENARO JURADO MD N 530.81 GERD 11/22/2012 GENARO JURADO MD N 655.03 ABNORMAL TETRA SCREEN (NTD) 11/22/2012 GENARO JURADO MD N 692.9 CONTACT DERMATITIS AND OTHER ECZEMA UNSPECIFIED CAUSE 11/22/2012 [facility] Mcgrath 530.81 GERD 11/22/2012 [facility] Mcgrath 655.03 ABNORMAL TETRA SCREEN (NTD) 11/22/2012 [facility] A 692.9 CONTACT DERMATITIS AND OTHER [...] GENARO JURADO MD V04.81 FLU SHOT 2013 [facility] A V04.81 FLU SHOT 2013 RHIANNON POLANCO, GENARO N V04.81 FLU SHOT 2013 RHIANNON POLANCO, GENARO N V04.81 FLU SHOT 2013 RHIANNON POLANCO, GENARO N V04.81 FLU SHOT 2013 [facility] A V04.81 FLU SHOT 2013 RHIANNON POLANCO, GENARO N V04.81 FLU SHOT 2013 RHIANNON POLANCO, GENARO N V04.81 FLU SHOT 2013 [facility] A V04.81 FLU SHOT 2013 RHIANNON POLANCO, GENARO N V04.81 FLU SHOT 2013 RHIANNON POLANCO, GENARO N V04.81 FLU SHOT 2013 CARY SUPERVISOR CARTOGRAPHY, JOSE ALEJANDRO A V04.81 FLU SHOT 2013 CARY SUPERVISOR CARTOGRAPHY, JOSE ALEJANDRO A V04.81 FLU SHOT 2013 [...] 01/23/2013 GENARO JURADO MD V22.2 INCIDENTAL 01/23/2013 [facility] Mcgrath 477.9 RHINITIS 01/23/2013 [facility] Mcgrath V22.2 INCIDENTAL 01/23/2013 GENARO JURADO MD 477.9 RHINITIS 01/23/2013 GENARO JURADO MD N V22.2 INCIDENTAL 01/23/2013 GENARO JURADO MD 477.9 RHINITIS 01/23/2013 RHIANNON POLANCO, GENARO N V22.2 INCIDENTAL 01/23/2013 GENARO JURADO MD N 477.9 RHINITIS 01/23/2013 RHIANNON POLANCO, GENARO N V22.2 INCIDENTAL 01/23/2013 [facility] A 477.9 RHINITIS 01/23/2013 [facility] A V22.2 INCIDENTAL 01/23/2013 GENARO JURADO MD N 477.9 RHINITIS 01/23/2013 RHIANNON POLANCO, GENARO N V22.2 INCIDENTAL 01/23/2013 RHIANNON POLANCO, GENARO N 477.9 RHINITIS 01/23/2013 GENARO JURADO MD N V22.2 INCIDENTAL 01/23/2013 [facility] A 477.9 RHINITIS 01/23/2013 [facility] A V22.2 INCIDENTAL 01/23/2013 GENARO JURADO MD N 477.9 RHINITIS 01/23/2013 GENARO JURADO MD N V22.2 INCIDENTAL 01/23/2013 GENARO JURADO MD N 477.9 RHINITIS 01/23/2013 RHIANNON POLANCO, GENARO N V22.2 INCIDENTAL 01/23/2013 CARY SUPERVISOR CARTOGRAPHY, JOSE ALEJANDRO A 477.9 RHINITIS 01/23/2013 CARY SUPERVISOR CARTOGRAPHY, JOSE ALEJANDRO A V22.2 INCIDENTAL 01/23/2013 CARY SUPERVISOR CARTOGRAPHY, JOSE ALEJANDRO A 477.9 RHINITIS 01/23/2013 CARY SUPERVISOR CARTOGRAPHY, JOSE ALEJANDRO A V22.2 INCIDENTAL 01/23/2013 CHIN DO, LEONARD K 477.9 RHINITIS 01/23/2013 CHIN DO LEONARD K V22.2 INCIDENTAL 01/23/2013 ANGIE DDS, ADDISON B 477.9 RHINITIS 01/23/2013 ANGIE DDS, ADDISON B V22.2 INCIDENTAL 01/28/2013 LORAINE CHIN DOA K 296.90 MOOD DISORDER NOS 01/28/2013 GENARO JURADO MD 296.90 MOOD DISORDER NOS 01/28/2013 [facility] Mcgrath 296.90 MOOD DISORDER NOS 01/28/2013 GENARO JURADO MD 296.90 MOOD DISORDER NOS 01/28/2013 ANISHA JURADO MDY N 296.90 MOOD DISORDER NOS 01/28/2013 ANISHA JURADO MDY N 296.90 MOOD DISORDER NOS 01/28/2013 [facility] A 296.90 MOOD DISORDER NOS 01/28/2013 RHIANNON POLANCO GENARO N 296.90 MOOD DISORDER NOS 01/28/2013 RHIANNON POLANCO GENARO N 296.90 MOOD DISORDER NOS 01/28/2013 [facility] A 296.90 MOOD DISORDER NOS 01/28/2013 [...] GENARO N 296.90 MOOD DISORDER NOS 02/05/2013 [facility] A 296.90 MOOD DISORDER NOS 02/05/2013 RHIANNON POLANCO GENARO N 296.90 MOOD DISORDER NOS 02/05/2013 RHIANNON POLANCO GENARO N 296.90 MOOD DISORDER NOS 02/05/2013 RHIANNON POLANCO GENARO N 296.90 MOOD DISORDER NOS 02/05/2013 [facility] A 296.90 MOOD DISORDER NOS 02/05/2013 RHIANNON POLANCO GENARO N 296.90 MOOD DISORDER NOS 02/05/2013 RHIANNON POLANCO GENARO N 296.90 MOOD DISORDER NOS 02/05/2013 [facility] A 296.90 MOOD DISORDER NOS 02/05/2013 RHIANNON POLANCO GENARO N 296.90 MOOD DISORDER NOS 02/05/2013 RHIANNON POLANCO GENARO N 296.90 MOOD DISORDER NOS 02/05/2013 CARYMAXIMILIANO LÓPEZ JOSE ALEJANDRO A 296.90 MOOD DISORDER NOS 02/05/2013 CARY SUPERVISOR CARTOGRAPHY, JOSE ALEJANDRO A 296.90 MOOD DISORDER NOS [...] GENARO JURADO MD V06.1 TDAP DX 03/06/2013 [facility] Mcgrath 649.60 UTER INE SIZE DATE DISCREPANCY -SGA 03/06/2013 [facility] Mcgrath V06.1 TDAP DX 03/06/2013 GENARO [...] GENARO JURADO MD V06.1 TDAP DX 03/06/2013 [facility] Mcgrath 649.60 UTER INE SIZE DATE DISCREPANCY -SGA 03/06/2013 [facility] Mcgrath V06.1 TDAP DX 03/06/2013 GENARO JURADO MD N 649.60 UTER INE SIZE DATE DISCREPANCY -SGA 03/06/2013 GENARO JURADO MD N V06.1 TDAP DX 03/06/2013 GENARO JURADO MD N 649.60 UTER INE SIZE DATE DISCREPANCY -SGA 03/06/2013 GNEARO JURADO MD N V06.1 TDAP DX 03/06/2013 [facility] Mcgrath 649.60 UTER INE SIZE DATE DISCREPANCY -SGA 03/06/2013 [facility] A V06.1 TDAP DX 03/06/2013 GENARO JURADO MD 649.60 UTER INE SIZE DATE DISCREPANCY -SGA 03/06/2013 GENARO JURADO MD V06.1 TDAP DX 03/06/2013 GENARO JURADO MD 649.60 UTER INE SIZE DATE DISCREPANCY -SGA 03/06/2013 GENARO JURADO MD V06.1 TDAP DX 03/06/2013 CARY SUPERVISOR CARTOGRAPHY, JOSE ALEJANDRO A 649.60 UTER INE SIZE DATE DISCREPANCY -SGA 03/06/2013 CARY SUPERVISOR CARTOGRAPHY, JOSE ALEJANDRO A V06.1 TDAP DX 03/06/2013 CARY SUPERVISOR CARTOGRAPHY, JOSE ALEJANDRO A 649.60 UTER INE SIZE DATE DISCREPANCY -SGA 03/06/2013 CARY SUPERVISOR CARTOGRAPHY, JOSE ALEJANDRO A V06.1 TDAP DX 03/06/2013 [...] F F43.8 Other reactions to severe stress [place], Telisa 01/14/2015 F F43.8 Other reactions to severe stress Miguel, Telisa 07/12/2015 LEONARD CHIN DO Ot 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 07/12/2015 LEONARD CHIN DO Ot V23.83 SUPRV HIGH-RISK PREG-YOUNG PRIMIGRAVIDA 07/12/2015 RHIANNON POLANCO, GENARO Pulido Ot 649.63 UTERINE SIZE DATE DISCREPANCY, ANTEPARTU 07/12/2015 RHIANNON POLANCO, GENARO Pulido Ot 656.53 POOR GRTH-ANTEPART 07/12/2015 JOSE ALEJANDRO TOWNSEND SUPERVISOR CARTOGRAPHY Ot 646.83 PREG COMPL NEC-ANTEPART 07/12/2015 JOSE ALEJANDRO TOWNSEND SUPERVISOR CARTOGRAPHY Ot 789.00 ABDOMINAL PAIN, UNSPECIFIED SITE 07/12/2015 Ot 656.53 POOR GRTH-ANTEPART 07/12/2015 ROSA ESTEVEZ SUPERVISOR CARTOGRAPHY Ot K58.9 IRRITABLE BOWEL SYNDROME WITHOUT DIARRHE 07/12/2015 ROSA ESTEVEZ SUPERVISOR CARTOGRAPHY Ot R10.84 GENERALIZED ABDOMINAL PAIN 07/13/2015 ROSA ESTEVEZ SUPERVISOR CARTOGRAPHY Ot K58.9 IRRITABLE BOWEL SYNDROME WITHOUT DIARRHE 07/13/2015 ROSA ESTEVEZ SUPERVISOR CARTOGRAPHY Ot R10.84 GENERALIZED ABDOMINAL PAIN 07/14/2015 ROSA ESTEVEZ SUPERVISOR CARTOGRAPHY Ot K58.9 IRRITABLE BOWEL SYNDROME WITHOUT DIARRHE 07/14/2015 ROSA ESTEVEZ SUPERVISOR CARTOGRAPHY Ot R10.84 GENERALIZED ABDOMINAL PAIN 07/14/2015 LEONARD CHIN DO Ot 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 07/14/2015 LEONARD CHIN DO Ot V23.83 SUPRV HIGH-RISK PREG-YOUNG PRIMIGRAVIDA 07/14/2015 RHIANNON POLANCO, GENARO Pulido Ot 649.63 UTERINE SIZE DATE DISCREPANCY, ANTEPARTU 07/14/2015 GENARO JURADO MD Ot 656.53 POOR GRTH-ANTEPART 07/14/2015 NICK TOWNSENDIDI A SUPERVISOR CARTOGRAPHY Ot 646.83 PREG COMPL NEC-ANTEPART 07/14/2015 NICK TOWNSENDIDI A SUPERVISOR CARTOGRAPHY Ot 789.00 ABDOMINAL PAIN, UNSPECIFIED SITE 07/14/2015 Ot 656.53 POOR GRTH-ANTEPART 08/08/2015 LEONARD CHIN DO Ot 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 08/08/2015 LEONARD CHIN DO Ot V23.83 SUPRV HIGH-RISK PREG-YOUNG PRIMIGRAVIDA 08/08/2015 GENARO JURADO MD Ot 649.63 UTERINE SIZE DATE DISCREPANCY, ANTEPARTU 08/08/2015 GENARO JURADO MD Ot 656.53 POOR GRTH-ANTEPART 08/08/2015 CARYNICKJOSE ALEJANDRO A SUPERVISOR CARTOGRAPHY Ot 646.83 PREG COMPL NEC-ANTEPART 08/08/2015 NICK TOWNSENDIDI A SUPERVISOR CARTOGRAPHY Ot 789.00 ABDOMINAL PAIN, UNSPECIFIED SITE 08/08/2015 Ot 656.53 POOR GRTH-ANTEPART 08/08/2015 LEONARD CHIN DO Ot 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 08/08/2015 LEONARD CHIN DO Ot V23.83 SUPRV HIGH-RISK PREG-YOUNG PRIMIGRAVIDA 08/08/2015 GENARO JURADO MD Ot 649.63 UTERINE SIZE DATE DISCREPANCY, ANTEPARTU 08/08/2015 GENARO JURADO MD Ot 656.53 POOR GRTH-ANTEPART 08/08/2015 NICK TOWNSENDIDI A SUPERVISOR CARTOGRAPHY Ot 646.83 PREG COMPL NEC-ANTEPART 08/08/2015 NICK TOWNSENDIDI A SUPERVISOR CARTOGRAPHY Ot 789.00 ABDOMINAL PAIN, UNSPECIFIED SITE 08/08/2015 Ot 656.53 POOR GRTH-ANTEPART 08/08/2015 NEVILLE FLOWERS Ot K58.0 IRRITABLE BOWEL SYNDROME WITH DIARRHEA 08/08/2015 NEVILLE FLOWERS Ot R11.2 NAUSEA WITH VOMITING, UNSPECIFIED 08/08/2015 LEONARD CHIN DO Ot 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 08/08/2015 CHIN DO, LEONARD K Ot V23.83 SUPRV HIGH-RISK PREG-YOUNG PRIMIGRAVIDA 08/08/2015 RHIANNON POLANCO, GENARO Pulido Ot 649.63 UTERINE SIZE DATE DISCREPANCY, ANTEPARTU 08/08/2015 GENARO JURADO MD Ot 656.53 POOR GRTH-ANTEPART 08/08/2015 CARYNICK VIERAIDI A SUPERVISOR CARTOGRAPHY Ot 646.83 PREG COMPL NEC-ANTEPART 08/08/2015 CARY, JOSE ALEJANDRO A SUPERVISOR CARTOGRAPHY Ot 789.00 ABDOMINAL PAIN, UNSPECIFIED SITE 08/08/2015 Ot 656.53 POOR GRTH-ANTEPART 08/08/2015 CHIN LORAINE PICHARDOA K Ot 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 08/08/2015 CHIN LEONARD PICHARDO Ot V23.83 SUPRV HIGH-RISK PREG-YOUNG PRIMIGRAVIDA 08/08/2015 GENARO JURADO MD N Ot 649.63 UTERINE SIZE DATE DISCREPANCY, ANTEPARTU 08/08/2015 GENARO JURADO MD Ot 656.53 POOR GRTH-ANTEPART 08/08/2015 CARY, JOSE ALEJANDRO A SUPERVISOR CARTOGRAPHY Ot 646.83 PREG COMPL NEC-ANTEPART 08/08/2015 CARY, JOSE ALEJANDRO A SUPERVISOR CARTOGRAPHY Ot 789.00 ABDOMINAL PAIN, UNSPECIFIED SITE 08/08/2015 [...] OTHER EXTERNAL CAUSE STATUS 09/24/2015 ROSA ESTEVEZ SUPERVISOR CARTOGRAPHY Ot S60.222A CONTUSION OF LEFT HAND, INITIAL ENCOUNTE 09/24/2015 ROSA ESTEVEZ SUPERVISOR CARTOGRAPHY Ot S69.92XA UNSP INJURY OF LEFT WRIST, HAND AND FING 09/24/2015 ROSA ESTEVEZ SUPERVISOR CARTOGRAPHY Ot W22.09XA STRIKING AGAINST OTHER STATIONARY OBJECT 09/24/2015 ROSA ESTEVEZ SUPERVISOR CARTOGRAPHY Ot Y99.8 OTHER EXTERNAL CAUSE STATUS 10/08/2015 [...] STATUS 06/14/2016 LEONARD CHIN DO Ot 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 06/14/2016 LEONARD CHIN DO Ot V23.83 SUPRV HIGH-RISK PREG-YOUNG PRIMIGRAVIDA 06/14/2016 GENARO JURADO MD Ot 649.63 UTERINE SIZE DATE DISCREPANCY, ANTEPARTU 06/14/2016 GENARO JURADO MD Ot 656.53 POOR GRTH-ANTEPART 06/14/2016 JOSE ALEJANDRO TOWNSEND SUPERVISOR CARTOGRAPHY Ot 646.83 PREG COMPL NEC-ANTEPART 06/14/2016 JSOE ALEJANDRO TOWNSEND SUPERVISOR CARTOGRAPHY Ot 789.00 ABDOMINAL PAIN, UNSPECIFIED SITE 06/14/2016 [...] R10.84 GENERALIZED ABDOMINAL PAIN 07/15/2016 ANGIE DO, BRNEDA K Ot R11.2 NAUSEA WITH VOMITING, UNSPECIFIED 07/19/2016 ANGIE DO, BRENDA K Ot R10.31 RIGHT LOWER QUADRANT PAIN 07/19/2016 ANGIE DO, BRENDA K Ot R10.84 GENERALIZED ABDOMINAL PAIN 07/19/2016 ANGIE DO, BRENDA K Ot R11.2 NAUSEA WITH VOMITING, UNSPECIFIED 08/01/2016 ROSA ESTEVEZ SUPERVISOR CARTOGRAPHY Ot J45.909 UNSPECIFIED ASTHMA, UNCOMPLICATED 08/01/2016 ROSA ESTEVEZ SUPERVISOR CARTOGRAPHY Ot N83.201 UNSPECIFIED OVARIAN CYST, RIGHT SIDE 08/01/2016 ROSA ESTEVEZ SUPERVISOR CARTOGRAPHY Ot R10.31 RIGHT LOWER QUADRANT PAIN 08/01/2016 ROSA ESTEVEZ SUPERVISOR CARTOGRAPHY Ot Z87.19 PERSONAL HISTORY OF OTHER DISEASES OF 08/03/2016 ROSA ESTEVEZ SUPERVISOR CARTOGRAPHY Ot J45.909 UNSPECIFIED ASTHMA, UNCOMPLICATED 08/03/2016 ROSA ESTEVEZ SUPERVISOR CARTOGRAPHY Ot N83.201 UNSPECIFIED OVARIAN CYST, RIGHT SIDE 08/03/2016 ROSA ESTEVEZ SUPERVISOR CARTOGRAPHY Ot R10.31 RIGHT LOWER QUADRANT PAIN 08/03/2016 ROSA ESTEVEZ SUPERVISOR CARTOGRAPHY Ot Z87.19 PERSONAL HISTORY OF OTHER DISEASES OF 08/06/2016 Ot 656.53 POOR GRTH-ANTEPART 08/07/2016 ANGIE DO, BRENDA K Ot I88.0 NONSPECIFIC MESENTERIC LYMPHADENITIS 08/07/2016 ANGIE DO, BRENDA K Ot N39.0 URINARY TRACT INFECTION, SITE NOT SPECIF 08/07/2016 ANGIE DO, BRENDA K Ot R10.30 LOWER ABDOMINAL PAIN, UNSPECIFIED 08/07/2016 ROSA ESTEVEZ SUPERVISOR CARTOGRAPHY Ot J45.909 UNSPECIFIED ASTHMA, UNCOMPLICATED 08/07/2016 ROSA ESTEVEZ SUPERVISOR CARTOGRAPHY Ot N83.201 UNSPECIFIED OVARIAN CYST, RIGHT SIDE 08/07/2016 ROSA ESTEVEZ SUPERVISOR CARTOGRAPHY Ot R10.31 RIGHT LOWER QUADRANT PAIN 08/07/2016 ROSA ESTEVEZ SUPERVISOR CARTOGRAPHY Ot Z87.19 PERSONAL HISTORY OF OTHER DISEASES [...] F31.9 BIPOLAR DISORDER, UNSPECIFIED 09/25/2016 GENARO, ANASTACIA GLOBAL HUMAN RESOURCES DIRECTOR Ot F41.9 ANXIETY DISORDER, UNSPECIFIED 09/25/2016 ANASTACIA LAM GLOBAL HUMAN RESOURCES DIRECTOR Ot F90.9 ATTENTION-DEFICIT HYPERACTIVITY DISORDER 09/25/2016 ANASTACIA LAMP Ot J45.909 UNSPECIFIED ASTHMA, UNCOMPLICATED 09/25/2016 ANASTACIA LAM [employer]UM[employer] RESOURCES DIRECTOR Ot L02.411 CUTANEOUS ABSCESS OF RIGHT AXILLA 09/25/2016 ANASTACIA LAMP Ot Z77.22 CNTCT W AND EXPSR TO ENVIRON TOBACCO SMO 09/25/2016 ANASTACIA LAM RUTH Ot Z87.2 PERSONAL HISTORY OF DISEASES OF THE SKIN 09/25/2016 ANASTACIA LAM RUTH Ot Z91.5 PERSONAL HISTORY OF SELF-HARM 09/25/2016 ANASTACIA LAMP Ot Z98.890 OTHER SPECIFIED POSTPROCEDURAL STATES 11/29/2016 LEONARD CHIN DO Ot 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 11/29/2016 CHIN DO LEONARD Najera Ot V23.83 SUPRV HIGH-RISK PREG-YOUNG PRIMIGRAVIDA 11/29/2016 GENARO JURADO MD Ot 649.63 UTERINE SIZE DATE DISCREPANCY, ANTEPARTU 11/29/2016 GENARO JURADO MD Ot 656.53 POOR GRTH-ANTEPART 11/29/2016 JOSE ALEJANDRO TOWNSEND SUPERVISOR CARTOGRAPHY Ot 646.83 PREG COMPL NEC-ANTEPART 11/29/2016 JOSE ALEJANDRO TOWNSEND SUPERVISOR CARTOGRAPHY Ot 789.00 ABDOMINAL PAIN, UNSPECIFIED SITE 11/29/2016 Ot 656.53 POOR GRTH-ANTEPART 11/29/2016 ROSA ESTEVEZ SUPERVISOR CARTOGRAPHY Ot F31.9 BIPOLAR DISORDER, UNSPECIFIED 11/29/2016 ROSA ESTEVEZ SUPERVISOR CARTOGRAPHY Ot F41.9 ANXIETY DISORDER, UNSPECIFIED 11/29/2016 ROSA ESTEVEZ SUPERVISOR CARTOGRAPHY Ot F90.9 ATTENTION-DEFICIT HYPERACTIVITY DISORDER 11/29/2016 ROSA ESTEVEZ SUPERVISOR CARTOGRAPHY Ot K58.9 IRRITABLE BOWEL SYNDROME WITHOUT DIARRHE 11/29/2016 ROSA ESTEVEZ SUPERVISOR CARTOGRAPHY Ot R11.2 NAUSEA WITH VOMITING, UNSPECIFIED 11/29/2016 ROSA ESTEVEZ SUPERVISOR CARTOGRAPHY Ot Z91.5 PERSONAL HISTORY OF SELF-HARM 12/11/2016 [...] MD Ot F41.9 ANXIETY DISORDER, UNSPECIFIED 12/13/2016 CUTRIS GOMEZ MD Ot F90.9 ATTENTION-DEFICIT HYPERACTIVITY DISORDER [...] PERSONAL HISTORY OF SELF-HARM 12/27/2016 ANASTACIA LAM [employer]UM[employer] RESOURCES DIRECTOR Ot F12.90 CANNABIS USE, UNSPECIFIED, UNCOMPLICATED 12/27/2016 GENARO ANASTACIA G[employer] HUM[employer] RESOURCES DIRECTOR Ot F31.9 BIPOLAR DISORDER, UNSPECIFIED 12/27/2016 GENAROANASTACIA Ruffin GLOBAL HUMAN RESOURCES DIRECTOR Ot F41.9 ANXIETY DISORDER, UNSPECIFIED 12/27/2016 GENARO, ANASTACIA G[employer] RESOURCES DIRECTOR Ot F90.9 ATTENTION-DEFICIT HYPERACTIVITY DISORDER 12/27/2016 GENARO ANASTACIA GLO[employer] HUM[employer] RESOURCES DIRECTOR Ot H66.91 OTITIS MEDIA, UNSPECIFIED, RIGHT EAR 12/27/2016 GENARO ANASTACIA GLO[employer] HUMAN RESOURCES DIRECTOR Ot H92.01 OTALGIA, RIGHT EAR 12/27/2016 GENARO ANASTACIA GLO[employer] HUMAN RESOURCES DIRECTOR Ot J02.9 ACUTE PHARYNGITIS, UNSPECIFIED 12/27/2016 GENARO ANASTACIA GLO[employer] HUM[employer] RESOURCES DIRECTOR Ot J45.909 UNSPECIFIED ASTHMA, UNCOMPLICATED 12/27/2016 GENARO ANASTACIA GLO[employer] HUMAN RESOURCES DIRECTOR Ot K58.9 IRRITABLE BOWEL SYNDROME WITHOUT DIARRHE 12/27/2016 GENARO, ANASTACIA GLO[employer] HUM[employer] RESOURCES DIRECTOR Ot Z77.22 CNTCT W AND EXPSR TO ENVIRON TOBACCO SMO 12/27/2016 GENARO, ANASTACIA GLO[employer] HUMAN RESOURCES DIRECTOR Ot Z91.5 PERSONAL HISTORY OF SELF-HARM 12/29/2016 GENARO, ANASTACIA GLO[employer] HUM[employer] RESOURCES DIRECTOR Ot F12.90 CANNABIS USE, UNSPECIFIED, UNCOMPLICATED 12/29/2016 GENARO, ANASTACIA GLO[employer] HUM[employer] RESOURCES DIRECTOR Ot F31.9 BIPOLAR DISORDER, UNSPECIFIED 12/29/2016 GENARO, ANASTACIA GLO[employer] HUM[employer] RESOURCES DIRECTOR Ot F41.9 ANXIETY DISORDER, UNSPECIFIED 12/29/2016 GENARO, ANASTACIA GLO[employer] HUMAN RESOURCES DIRECTOR Ot F90.9 ATTENTION-DEFICIT HYPERACTIVITY DISORDER 12/29/2016 GENARO, ANASTACIA GLO[employer] HUMAN RESOURCES DIRECTOR Ot H66.91 OTITIS MEDIA, UNSPECIFIED, RIGHT EAR 12/29/2016 GENARO, ANASTACIA GLO[employer] HUMAN RESOURCES DIRECTOR Ot H92.01 OTALGIA, RIGHT EAR 12/29/2016 GENARO, ANASTACIA GLO[employer] HUMAN RESOURCES DIRECTOR Ot J02.9 ACUTE PHARYNGITIS, UNSPECIFIED 12/29/2016 GENARO, ANASTACIA GLO[employer] HUMAN RESOURCES DIRECTOR Ot J45.909 UNSPECIFIED ASTHMA, UNCOMPLICATED 12/29/2016 GENARO, ANASTACIA GLO[employer] HUMAN RESOURCES DIRECTOR Ot K58.9 IRRITABLE BOWEL SYNDROME WITHOUT DIARRHE 12/29/2016 GENARO, ANASTACIA GLOBAL HUMAN RESOURCES DIRECTOR Ot Z77.22 CNTCT W AND EXPSR TO ENVIRON TOBACCO SMO 12/29/2016 GENARO, ANASTACIA GLO[employer] HUMAN RESOURCES DIRECTOR Ot Z91.5 PERSONAL HISTORY OF SELF-HARM 01/15/2017 [...] TO ENVIRON TOBACCO SMO 07/25/2017 ROSA ESTEVEZ SUPERVISOR CARTOGRAPHY Ot Z87.2 PERSONAL HISTORY OF DISEASES OF THE SKIN 07/25/2017 ROSA ESTEVEZ SUPERVISOR CARTOGRAPHY Ot Z91.5 PERSONAL HISTORY OF SELF-HARM 07/25/2017 ROSA ESTEVEZ SUPERVISOR CARTOGRAPHY Ot Z98.890 OTHER SPECIFIED POSTPROCEDURAL STATES 07/27/2017 ROSA ESTEVEZ SUPERVISOR CARTOGRAPHY Ot R11.2 NAUSEA WITH VOMITING, UNSPECIFIED 09/10/2017 GONZALO POLANCO, LEXX J Ot M54.9 DORSALGIA, UNSPECIFIED 09/10/2017 GONZALO POLANCO, LEXX J Ot R07.0 PAIN IN THROAT 09/10/2017 GONZALO POLANCO, LEXX J Ot R50.9 FEVER, UNSPECIFIED 09/12/2017 GONZALO POLANCO, LEXX J Ot M54.9 DORSALGIA, UNSPECIFIED 09/12/2017 GONZALO POLANCO, LEXX J Ot R07.0 PAIN IN THROAT 09/12/2017 GONZALO POLANCO, LEXX J Ot R50.9 FEVER, UNSPECIFIED 09/16/2017 GONZALO POLANCO, LEXX J Ot M54.9 DORSALGIA, UNSPECIFIED 09/16/2017 GONZALO POLANCO, LEXX J Ot R07.0 PAIN IN THROAT 09/16/2017 GONZALO POLANCO, LEXX J Ot R50.9 FEVER, UNSPECIFIED 12/03/2017 CRISTINA OLIVIER Ot F12.10 CANNABIS ABUSE, UNCOMPLICATED 12/03/2017 BASIL OLIVIERIS Ot F31.9 BIPOLAR DISORDER, UNSPECIFIED 12/03/2017 BASIL OLIVIERIS Ot F41.9 ANXIETY DISORDER, UNSPECIFIED 12/03/2017 BASIL OLIVIERIS Ot F90.9 ATTENTION-DEFICIT HYPERACTIVITY DISORDER 12/03/2017 BASIL OLIVIERIS Ot J45.909 UNSPECIFIED ASTHMA, UNCOMPLICATED 12/03/2017 BASIL OLIVIERIS Ot N39.0 URINARY TRACT INFECTION, SITE NOT SPECIF 12/03/2017 CRISTINA OLIVIER Ot N92.6 IRREGULAR MENSTRUATION, UNSPECIFIED 12/03/2017 CRISTINA OLIVIER Ot N93.9 ABNORMAL UTERINE AND VAGINAL BLEEDING, U 12/03/2017 CRISTINA OLIVIER Ot Z77.22 CNTCT W AND EXPSR TO ENVIRON TOBACCO SMO 12/03/2017 CRISTINA OLIVIER Ot Z87.448 PERSONAL HISTORY OF OTHER DISEASES OF UR 12/03/2017 CRISTINA OLIVIER Ot Z91.5 PERSONAL HISTORY OF SELF-HARM 12/03/2017 CHARLINE CRISTINA Ot Z98.890 OTHER SPECIFIED POSTPROCEDURAL STATES 12/07/2017 BRENDA ADAMS DO Ot F12.10 CANNABIS ABUSE, UNCOMPLICATED 12/07/2017 BRENDA ADAMS DO Ot F31.9 BIPOLAR DISORDER, UNSPECIFIED 12/07/2017 BRENDA ADAMS DO Ot F41.9 ANXIETY DISORDER, UNSPECIFIED 12/07/2017 BRENDA ADAMS DO Ot F90.9 ATTENTION-DEFICIT HYPERACTIVITY DISORDER 12/07/2017 BRENDA ADAMS DO Ot J45.909 UNSPECIFIED ASTHMA, UNCOMPLICATED 12/07/2017 BRENDA ADAMS DO Ot T36.0X2A POISONING BY PENICILLINS, INTENTIONAL SE 12/07/2017 BRENDA ADAMS DO Ot T42.1X2A POISONING BY IMINOSTILBENES, INTENTIONAL 12/07/2017 BRENDA ADAMS DO Ot Z77.22 CNTCT W AND EXPSR TO ENVIRON TOBACCO SMO 12/07/2017 BRENDA ADAMS DO Ot Z87.19 PERSONAL HISTORY OF OTHER DISEASES OF TH 12/07/2017 BRENDA ADAMS DO Ot Z87.448 PERSONAL HISTORY OF OTHER DISEASES OF UR 12/07/2017 BRENDA ADAMS DO Ot Z91.5 PERSONAL HISTORY OF SELF-HARM 12/07/2017 BRENDA ADAMS DO Ot Z98.890 OTHER SPECIFIED POSTPROCEDURAL STATES Procedures Code [place] [address] URINE TEST (IN- HOUSE) 11/02/2012 84682 UA LONG DIP 11/02/2012 89800 ROUTINE VENIPUNCTURE 11/14/2012 51630 UA OB DIP 11/14/2012 49741 TSH 11/14/2012 32516 CBC 11/14/2012 42376 SYPHILLIS-STATE LAB 11/14/2012 95077 HIV ANTIBODIES (RML) 11/14/2012 22269 RUBELLA ANTIBODY, IGG 11/14/2012 11669 ANTIBODY SCREEN (order) 11/14/2012 60029 BLOOD TYPE/Rh FACTOR 11/14/2012 92162 CULTURE UROGENITAL 11/14/2012 91961 CULTURE URINE 11/14/2012 93596 HEP B SURFACE ANTIGEN (STATE ) 11/14/2012 40912 GC/CHLAM PROBE (STATE) 11/14/2012 82754 TRICHOMONAS (IN-HOUSE) 11/14/2012 TETRA TETRA SCREEN 11/14/2012 51224 UA OB DIP 11/22/2012 21155 US OB - COMPLETE >14 WEEKS 11/26/2012 90740 UA OB DIP 12/12/2012 52961 UA OB DIP 2013 60455 GLUCOSE PINO 3 HOUR 01/19/2013 87141 PSYCH DIAGNOSTIC EVALUATION 01/19/2013 72459 ROUTINE VENIPUNCTURE 02/06/2013 56201 UA OB DIP 02/06/2013 24938 US OB - FOLLOW UP 02/06/2013 83736 GLUCOSE PINO 1 HOUR 02/06/2013 62264 GC/CHLAM URINE ([facility]) 02/06/2013 26373 CBC 02/07/2013 33496 UA OB DIP 03/06/2013 05399 US OB - FOLLOW UP 03/07/2013 10611 PSYTX PT&/FAMILY 45 MINUTES 03/08/2013 08577 UA OB DIP 03/20/2013 89526 UA OB DIP 03/26/2013 96584 BIOPHYSICAL PROFILE () W/O NST 03/26/2013 39233 UA OB DIP 04/02/2013 94157 CULTURE GROUP B STREP VAG 04/02/2013 71203 PSYTX PT&/FAMILY 30 MINUTES 04/04/2013 94300 UA OB DIP 04/10/2013 11503 GLUCOSE FINGER STICK 04/10/2013 65847 UA OB DIP 04/18/2013 22693 PSYTX PT&/FAMILY 45 MINUTES 04/19/2013 73.4 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 04/23/2013 75.69 REPAIR OB LACERATION NEC 04/23/2013 38875 TEST, URINE (IN- HOUSE) 06/12/2013 75141 THERAPUTIC INJ SQ/IM 07/25/2013 J1050 DEPO PROVERA 07/25/2013 38326 TEST, URINE (IN- HOUSE) 07/25/2013 20939 URINALYSIS, AUTO W/SCOPE 11/29/2013 45574 URINE CULTURE/COLONY COUNT 11/29/2013 13083 X-RAY EXAM OF ABDOMEN 12/03/2013 Results Test [...] identification in genital specimen by aerobe culture [id number] NRG Microscopic examination by GUME preparation - [...] 18:25 Bacteria identification in wound by culture [id number] NR FREE TEXT EXTERNAL THIS ISOLATE IS [...] 11.1 fL 7.5-12.5 ABSOLUTE NEUTROPHILS 3855 cells/uL 3583-0952 ABSOLUTE LYMPHOCYTES 1598 cells/uL 850-3900 ABSOLUTE MONOCYTES [...] medMATCH Buprenorphine CONSISTENT NRG Ethyl Glucuronide (ETG) 00316 ng/mL <500 medMATCH ETG INCONSISTENT NRG Ethyl [...] count by microscopy (number/high power field) [HPF] [facility] Automated urine sediment leukocyte count by microscopy [...] SEE REPORT NRG COLONY COUNT . NRG Serum or plasma choriogonadotropin ( test) detection - 12/07/17 19:30 Serum or plasma choriogonadotropin ( test) detection NEGATIVE NEGATIVE Comprehensive metabolic panel - 12/07/17 19:30 Serum or plasma sodium measurement (moles/volume) 140 [...] NRG Serum or plasma glucose measurement (mass/volume) 105 mg/dL 70-105 Serum or plasma calcium measurement (mass/volume) 9.6 mg/dL 8.5-10.1 Serum or plasma total bilirubin measurement (mass/volume) 0.2 mg/dL 0.1-1.0 Serum or plasma alkaline phosphatase measurement (enzymatic activity/volume) 81 U/L 40-136 Serum or plasma aspartate aminotransferase measurement (enzymatic activity/ volume) 16 U/L 5-34 Serum or plasma alanine aminotransferase measurement (enzymatic activity/volume ) 16 U/L 0-55 Serum or plasma protein measurement (mass/volume) 8.4 g/dL 6.4-8.2 Serum or plasma albumin measurement (mass/volume) 4.6 g/dL 3.2-4.5 Complete blood count (CBC) with automated white blood cell (WBC) differential - 12/07/17 19:30 Blood leukocytes automated count (number/volume) 7.6 10*3/uL 4.3-11.0 Blood erythrocytes automated count (number/volume) 5.15 10*6/uL 4.35-5.85 Venous blood hemoglobin measurement (mass/volume) 14.3 g/dL 11.5-16.0 Blood hematocrit (volume fraction) 43 % 35-52 Automated erythrocyte mean corpuscular volume 83 [foz_us] 80-99 Automated erythrocyte mean corpuscular hemoglobin (mass per erythrocyte) 28 pg 25-34 Automated erythrocyte mean corpuscular hemoglobin concentration measurement ( mass/volume) 33 g/dL 32-36 Automated erythrocyte distribution width ratio 14.8 % 10.0-14.5 Automated blood platelet count (count/volume) 299 10*3/uL 130-400 Automated blood platelet mean volume measurement 10.7 [foz_us] 7.4-10.4 Automated blood neutrophils/100 leukocytes 63 % 42-75 Automated blood lymphocytes/100 leukocytes 26 % 12-44 Blood monocytes/100 leukocytes 9 % 0-12 Automated blood eosinophils/100 leukocytes 1 % 0-10 Automated blood basophils/100 leukocytes 1 % 0-10 Blood neutrophils automated count (number/volume) 4.8 10*3 1.8-7.8 Blood lymphocytes automated count (number/volume) 1.9 10*3 1.0-4.0 Blood monocytes automated count (number/volume) 0.7 10*3 0.0-1.0 Automated eosinophil count 0.1 10*3/uL 0.0-0.3 Automated blood basophil count (count/volume) 0.1 10*3/uL 0.0-0.1 Serum or plasma thyrotropin measurement by detection limit <=0.05 miu/l (units/ volume) - 12/07/17 19:30 Serum or plasma thyrotropin measurement by detection limit <=0.05 miu/l (units/ volume) 1.45 u[iU]/mL 0.35-4.94 Serum or plasma salicylates measurement (mass/volume) - 12/07/17 19:30 Serum or plasma salicylates measurement (mass/volume) < mg/dL 5.0-20.0 Serum or plasma acetaminophen measurement (mass/volume) - 12/07/17 19:30 Serum or plasma acetaminophen measurement (mass/volume) < ug/mL 10-30 Serum or plasma ethanol measurement (mass/volume) - 12/07/17 19:30 Serum or plasma ethanol measurement (mass/volume) < mg/dL <10 Complete urinalysis with reflex to culture - 12/07/17 20:12 Urine color determination YELLOW NRG Urine clarity determination CLEAR NRG Urine pH measurement by test strip 7 5-9 Specific gravity of urine by test strip 1.005 1.016- 1.022 Urine protein assay by test [...] detection in urine sediment by light microscopy 0-2 NRG Crystals detection in urine sediment by light microscopy NONE NRG Casts detection in urine sediment by light microscopy NONE NRG Mucus detection in urine sediment by light microscopy NEGATIVE NRG Complete urinalysis with reflex to culture NO NRG Urine drug screening test - 12/07/17 20:12 Urine phencyclidine detection by screening method NEGATIVE [...] NEGATIVE Urine propoxyphene detection NEGATIVE NEGATIVE CULTURE, VAGINAL YEAST - 01/24/18 10:32 CULTURE, YEAST, W/DIRECT FLUORESCENT GUME SEE NOTE NRG GC/CHLAMYDIA (SWAB OR URINE)-RAPID - 01/24/18 10:32 CHLAMYDIA TRACHOMATIS RNA, TMA NOT DETECTED NOT DETECTED NEISSERIA GONORRHOEAE RNA, TMA NOT DETECTED NOT DETECTED COMMENT NRG SUREPATH PAP RFX HPV mRNA E6/E7 - 01/24/18 10:32 CLINICAL INFORMATION: NRG LMP: 01/06/18 NRG PREV. PAP: NRG PREV. BX: NRG SOURCE: Cervix NRG STATEMENT OF ADEQUACY: NRG INTERPRETATION/RESULT: NRG SANE RN: NRG INFECTION: NRG COMMENT NRG Encounters ACCT No. Visit Date/Time Discharge Status Pt. Type Provider Facility Loc./Unit Complaint [id number] 09/10/2014 15:31:00 09/10/2014 23:59:59 CLS Outpatient HANNA TAI [facility] RAD [id number] 06/04/2014 17:36:00 06/04/2014 17:36:00 DIS Outpatient ABIDA HANNA [facility] PANACE [id number] 02/19/2014 16:25:00 02/19/2014 17:20:00 DIS Inpatient ABIDA HANNA [facility] OBS [id number] 12/03/2013 14:36:00 12/03/2013 14:36:00 DIS Outpatient ABIDA HANNA [facility] RAD [id number] 11/29/2013 17:45:00 11/29/2013 17:45:00 DIS Outpatient JACY CORREIA [facility] LAB [id number] 01/19/2014 00:00:00 Document Registration [id number] 01/19/2013 00:00:00 Document Registration [id number] 06/13/2014 20:11:17 ACT Document Registration [id number] 12/07/2017 19:16:00 12/07/2017 23:10:00 DIS Emergency BRENDA ADAMS DO [facility] ER OVERDOSE [id number] 12/03/2017 13:58:00 12/03/2017 15:10:00 DIS Emergency CRISTINA OLIVIER [facility] ER HEAVY VAGINAL BLEEDING [id number] 09/10/2017 17:49:00 09/10/2017 18:15:00 DIS Emergency LEXX SÁNCHEZ MD [facility] ER FEVER,BACK PAIN,THROAT PAIN [id number] 07/25/2017 16:37:00 07/25/2017 17:51:00 DIS Emergency ROSA ESTEVEZ SUPERVISOR CARTOGRAPHY [facility] ER VOMITING [id number] 03/09/2017 10:00:00 03/09/2017 23:59:59 CLS Preadmit NIKOS AVALOS DO [facility] CARD NAUSEA AND VOMITTING [id number] 02/23/2017 08:56:00 02/23/2017 23:59:59 CLS Outpatient KENNY DURAN DO [facility] RAD NAUSEA AND VOMITTING [id number] 01/25/2017 07:27:00 01/25/2017 23:59:59 CLS Preadmit DURAN DO KENNY Macias [facility] CARD NAUSEA AND VOMITTING [id number] 01/14/2017 22:35:00 01/15/2017 00:25:00 DIS Emergency ANGIE PICHARDO BRENDA Najera [facility] ER VOMITING [id number] 12/27/2016 20:31:00 12/27/2016 21:26:00 DIS Emergency ANASTACIA LAM [employer] DIRECTOR [facility] ER SORE THROAT [id number] 12/11/2016 16:29:00 12/11/2016 18:07:00 DIS Emergency CURTIS GOMEZ MD [facility] ER ABD PAIN/N/V [id number] 11/29/2016 18:07:00 11/29/2016 20:29:00 DIS Emergency ROSA ESTEVEZ APRN [facility] ER ABDOMINAL PAIN,VOMITING [id number] 09/25/2016 17:11:00 09/25/2016 18:47:00 DIS Emergency ANASTACIA LAM [employer] DIRECTOR [facility] ER R ARMPIT LUMP/PAIN [id number] 08/22/2016 20:41:00 08/22/2016 22:00:00 DIS Emergency ANGIE PICHARDOBRENDA [facility] ER FEVER/STOMACH PAIN [id number] 08/06/2016 21:44:00 08/07/2016 00:03:00 DIS Emergency ANGIE PICHARDOBRENDA [facility] ER R SIDE AND BACK PAIN [id number] 08/01/2016 14:39:00 08/01/2016 16:08:00 DIS Emergency ROSA ESTEVEZ APRN [facility] ER RUQ PAIN [id number] 07/15/2016 00:30:00 07/15/2016 01:59:00 DIS Emergency ANGIE PICHARDOBRENDA [facility] ER ABD PAIN [id number] 06/14/2016 22:59:00 06/15/2016 02:08:00 DIS Emergency GEORGINA DIAZ MD [facility] ER VOMITING [id number] 03/24/2016 09:43:00 03/24/2016 10:46:00 DIS Emergency ROSA ESTEVEZ APRN [facility] ER POSS INSECT BITE LEFT EYE SWOLLEN/KNOTS ON FACE [id number] 02/23/2016 12:54:00 02/23/2016 14:09:00 DIS Emergency CURTIS GOMEZ MD [facility] ER FACIAL SWELLING VOMITING [id number] 01/19/2016 20:02:00 01/19/2016 21:20:00 DIS Emergency BRENDA ADAMS DO [facility] ER BREASTS SWELLING/LEAKING FLUID [id number] 10/15/2015 19:25:00 10/15/2015 21:19:00 DIS Emergency CURTIS GOMEZ MD [facility] ER PSYCH EVAL [id number] 10/08/2015 18:34:00 10/08/2015 19:43:00 DIS Emergency GEORGINA DIAZ MD [facility] ER ANXIETY [id number] 09/23/2015 16:37:00 09/23/2015 18:22:00 DIS Emergency ROSA ESTEVEZ APRN [facility] ER LEFT ARM INJ [id number] 08/08/2015 15:14:00 08/08/2015 17:21:00 DIS Emergency NEVILLE FLOWERS [facility] ER STOMACH PAIN [id number] 07/12/2015 18:06:00 07/12/2015 20:33:00 DIS Emergency ROSA ESTEVEZ SUPERVISOR CARTOGRAPHY [facility] ER VOMITING/FEELING HOT/ABD PAIN [id number] 06/13/2014 20:10:00 06/13/2014 21:27:00 DIS Emergency BRENDA ADAMS DO [facility] ER LT ANKLE PAIN [id number] 04/09/2013 15:36:00 07/08/2013 00:01:00 DIS Outpatient GENARO JURADO MD [facility] RAD POOR GROWTH [id number] 06/01/2013 21:35:00 06/02/2013 00:23:00 DIS Emergency GEORGINA DIAZ MD [facility] ER DIZZY;HEADACHE [id number] 04/23/2013 20:26:00 04/25/2013 11:25:00 DIS Inpatient GENARO JURADO MD [facility] WS INDUCTION [id number] 04/04/2013 18:02:00 04/04/2013 18:48:00 DIS Outpatient GENARO JRUADO MD [facility] WSo VAGINAL BLEEDING [id number] 03/24/2013 19:59:00 03/24/2013 21:55:00 DIS Outpatient GENARO JURADO MD [facility] WSo CONTRACTIONS [id number] 03/22/2013 13:00:00 03/22/2013 23:59:59 CLS Outpatient GENARO JURADO MD [facility] RAD F/U GROWTH [id number] 03/14/2013 11:48:00 03/14/2013 23:59:59 CLS Outpatient JOSE ALEJANDRO TOWNSEND APRN [facility] LAB DIABETES SCREENING [id number] 02/27/2013 10:19:00 02/27/2013 12:23:00 DIS Outpatient GENARO JURADO MD [facility] WSo LOW ABD PAIN [id number] 02/15/2013 13:33:00 02/15/2013 23:59:59 CLS Outpatient GENARO JURADO MD [facility] RAD DECREASED FUNDAL HEIGHT [id number] 02/15/2013 01:11:00 02/15/2013 03:45:00 DIS Outpatient GENARO JURADO MD [facility] WSo ABD PAIN [id number] 11/30/2012 12:12:00 11/30/2012 23:59:59 CLS Outpatient LEONARD CHIN DO [facility] RAD ABNORMAL TETRA SCREEN FOR NEURAL TUBE DEFECT [id number] 07/09/2013 15:15:00 Document Registration [id number] 09/19/2013 13:17:00 09/19/2013 23:59:59 CLS Outpatient ADDISON ADAMS DDS [id number] 07/25/2013 16:14:00 07/25/2013 23:59:59 CLS Outpatient LEONARD CHIN DO [id number] 06/12/2013 15:36:00 06/12/2013 23:59:59 CLS Outpatient JOSE ALEJANDRO TOWNSEND APRN Alcides [id number] 06/12/2013 15:36:00 06/12/2013 23:59:59 CLS Outpatient NICK TOWNSEND APRNCECI Mcgrath [id number] 05/27/2013 10:47:00 05/27/2013 23:59:59 CLS Outpatient GENARO JURADO MD [id number] 04/19/2013 12:45:00 04/19/2013 23:59:59 CLS Outpatient MORRIS PATHAK [id number] 04/18/2013 15:34:00 04/18/2013 23:59:59 CLS Outpatient GENARO JURADO MD [id number] 04/18/2013 15:34:00 04/18/2013 23:59:59 CLS Outpatient GENARO JURADO MD [id number] 04/10/2013 15:35:00 04/10/2013 23:59:59 CLS Outpatient GENARO JURADO MD [id number] 04/04/2013 09:45:00 04/04/2013 23:59:59 CLS Outpatient RICHARDS MORRIS BRADLEY [id number] 04/02/2013 15:49:00 04/02/2013 23:59:59 CLS Outpatient GENARO JURADO MD [id number] 03/26/2013 12:39:00 03/26/2013 23:59:59 CLS Outpatient GENARO JURADO MD [id number] 03/20/2013 15:19:00 03/20/2013 23:59:59 CLS Outpatient GENARO JURADO MD [id number] 03/08/2013 13:10:00 03/08/2013 23:59:59 CLS Outpatient MORRIS PATHAK [id number] 03/06/2013 16:00:00 03/06/2013 23:59:59 CLS Outpatient GENARO JURADO MD [id number] 02/06/2013 15:57:00 02/06/2013 23:59:59 CLS Outpatient GENARO JURADO MD [id number] 01/23/2013 13:27:00 01/23/2013 23:59:59 CLS Outpatient JERRI JACKSON APRN [id number] 2013 16:09:00 2013 23:59:59 CLS Outpatient LEONARD CHIN DO [id number] 2013 16:09:00 2013 23:59:59 CLS Outpatient GENARO JURADO MD Tess [id number] 12/12/2012 15:59:00 12/12/2012 23:59:59 CLS Outpatient LEONARD CHIN DO [id number] 11/22/2012 10:40:00 11/22/2012 23:59:59 CLS Outpatient LEONARD CHIN DO [id number] 11/14/2012 09:39:00 11/14/2012 23:59:59 CLS Outpatient LEONARD CHIN DO [id number] 11/02/2012 10:39:00 11/02/2012 23:59:59 CLS Outpatient JERRI JACKSON APRN [id number] 11/07/2012 10:55:00 Document Registration [id number] 11/02/2012 10:39:00 Document Registration [id number] 11/02/2015 18:06:00 Document Registration [email or web address] 09/11/2014 01:53:06 ACT Document Registration [id number] 01/07/2015 08:00:00 01/07/2015 23:59:59 CLS Outpatient [id number] 07/06/2015 04:44:56 Document Registration [id number] 07/06/2015 04:38:06 Document Registration [id number] 07/06/2015 04:29:06 Document Registration [id number] 07/06/2015 04:29:04 Document Registration [id number] 06/08/2015 10:02:39 Document Registration [id number] 05/11/2015 04:31:13 Document Registration [id number] 05/07/2015 13:50:42 Document Registration [id number] 05/07/2015 13:49:06 Document Registration [id number] 05/07/2015 13:48:01 Document Registration [id number] 05/07/2015 13:45:53 Document Registration [id number] 04/22/2015 04:28:54 Document Registration [id number] 04/09/2015 14:39:10 Document Registration [id number] 04/09/2015 14:38:37 Document Registration [id number] 04/09/2015 14:38:35 Document Registration [id number] 04/09/2015 14:38:32 Document Registration [id number] 04/09/2015 14:38:30 Document Registration [id number] 04/09/2015 14:38:02 Document Registration [id number] 04/09/2015 14:37:47 Document Registration [id number] 11/04/2016 11:08:00 Document Registration [id number] 03/08/2018 16:40:00 03/08/2018 23:59:59 CLS Outpatient KATHY HERNANDEZ [facility] [id number] 01/24/2018 09:00:00 Document Registration [id number] 07/11/2017 13:20:00 Document Registration [id number] 04/04/2017 11:00:00 Document Registration [id number] 12/29/2016 11:00:00 Document Registration [id number] 11/01/2016 11:45:00 Document Registration
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
[2018-03-19] MEDS ORDERED: IBUPROFEN 600 MG (MOTRIN) TAB PO ONE (21:30)
[2018-03-19 21:44] VITALS: BP 119/76
== END 2018-03-19 21:44 | disposition home or self-care (01) ==
LOC: EDUNIT# 19:55 → ER 19:57
DX: S00.83XA Contusion of other part of head, initial encounter (principal); J45.909 Unspecified asthma, uncomplicated; F98.8 Other specified behavioral and emotional disorders with onset usually occurring in childhood and adolescence; F90.9 Attention-deficit hyperactivity disorder, unspecified type; F31.9 Bipolar disorder, unspecified; F41.9 Anxiety disorder, unspecified; F12.10 Cannabis abuse, uncomplicated; K58.9 Irritable bowel syndrome, unspecified; F17.210 Nicotine dependence, cigarettes, uncomplicated; Z87.448 Personal history of other diseases of urinary system; Z98.890 Other specified postprocedural states; Y04.8XXA Assault by other bodily force, initial encounter
CPT/HCPCS: 70450; 70486; 72125; 84703

== ENCOUNTER 2018-07-04 19:17 | Inpatient (IN) | payer MEDICAID | END 2018-07-05 16:00 | disposition home or self-care (01) | LOC: ER 19:17 → ICU 21:10 ==

== ENCOUNTER 2018-07-21 11:51 | Emergency (ER) | payer SELFPAY ==
[~2018-07-21] VITALS: Ht 157.5 cm; Wt 59.0 kg
[~2018-07-21 11:51] MED LIST changes: +DESV50TA18 PO; +METH27TA11 PO; +OXCA300T18 PO; +POLY238P32 PO
--- OUTSIDE RECORDS SUMMARY | 2018-07-21 11:57 | XMS REPORT ---
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 Name Role Phone Migration, Doctor Unavailable Unavailable PROBLEMS Type Condition ICD9-CM Code LGA65-LT Code Onset Dates Condition Status SNOMED Code Problem Depressive disorder, not elsewhere classified F32.9 Active 40416043 Problem Rhinitis, unspecified type J31.0 Active 88782607 Problem Slow transit constipation K59.01 Active 83870449 Problem Unspecified mood [affective] disorder F39 Active 83469950 Problem ADHD (attention deficit hyperactivity disorder), combined type F90.2 Active 36909304 Problem Missed period N92.6 Active 24720193 Problem Anxiety state F41.1 Active 123679988 Problem Anxiety disorder, unspecified type F41.9 Active 487024053 Problem Major depressive disorder, single episode, mild F32.0 Active 36323495 Problem Plantar wart of right foot B07.0 Active [id number] Problem Irritable bowel syndrome with diarrhea K58.0 Active 483260684 ALLERGIES No Information ENCOUNTERS Encounter Location Date Diagnosis [place] [id number] [place] [address] May, ADHD (attention deficit hyperactivity disorder), combined type F90.2 ; Anxiety disorder, unspecified type F41.9 ; Unspecified mood [affective] disorder F39 and 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 [facility] [place] [id number] [place] [address] May, Slow transit constipation K59.01 [facility] [place] [id number] [place] [address] May, ADHD (attention deficit hyperactivity disorder), combined type F90.2 [facility] [place] [id number] [place] [address] May, [facility] [place] [address] [place] [address] May, Abdominal pain R10.9 [facility] [place] [id number] [place] [address] Apr, [facility] [place] [id number] [place] [address] Apr, [facility] [place] [address] [address] Apr, ADHD (attention deficit hyperactivity disorder), combined type F90.2 [facility] [place] [id number] [place] [address] Apr, Abdominal pain R10.9 [facility] [place] [id number] [place] [address] Apr, [facility] [place] [id number] [place] [address] Mar, [facility] [place] [id number] [place] [address] Mar, ADHD (attention deficit hyperactivity disorder), combined type F90.2 ; Anxiety disorder, unspecified type F41.9 and Unspecified mood [affective] disorder F39 [facility] [place] [id number] [place] [address] Mar, Viral gastroenteritis A08.4 and Slow transit constipation K59.01 [facility] [id number] [place] [address] Mar, Viral gastroenteritis A08.4 [facility] [place] [id number] [place] [address] Mar, ADHD (attention deficit hyperactivity disorder), combined type F90.2 [facility] [place] [id number] [place] [address] Feb, Slow transit constipation K59.01 ; Missed period N92.6 and Nausea R11.0 [facility] [place] [id number] [place] [address] Feb, ADHD (attention deficit hyperactivity disorder), combined type F90.2 [facility] [place] [id number] [place] [address] Jan, Nausea R11.0 and Viral upper respiratory tract infection J06.9 [place] [id number] [place] [address] Jan, [place] [id number] [place] [address] Jan, ADHD (attention deficit hyperactivity disorder), combined type F90.2 ; Anxiety disorder, unspecified type F41.9 and Unspecified mood [affective] disorder F39 [place] [id number] [place] [address] Jan, Well woman exam with routine gynecological exam Z01.419 ; Routine screening for STI (sexually transmitted infection) Z11.3 and Vaginal jose B37.3 [place] [id number] [place] [address] Dec, [place] [id number] [place] [address] Dec, [place] [id number] [place] [address] Dec, ADHD (attention deficit hyperactivity disorder), combined type F90.2 ; Anxiety disorder, unspecified type F41.9 and Unspecified mood [affective] disorder F39 [place] [address] [place] [address] Dec, Unspecified mood [affective] disorder F39 ; Anxiety disorder, unspecified type F41.9 and ADHD (attention deficit hyperactivity disorder), combined type F90.2 [facility] [id number] [place] [address] Nov, Other specified bacterial agents as the cause of diseases classified elsewhere B96.89 and Otitis media, unspecified, bilateral H66.93 [facility] [id number] [address] Nov, Sore throat J02.9 and Acute nasopharyngitis J00 [facility] [place] [address] [place] [address] Nov, ADHD (attention deficit hyperactivity disorder), combined type F90.2 ; Anxiety disorder, unspecified type F41.9 and Unspecified mood [affective] disorder F39 [facility] [place] [address] [place] [address] Oct, ADHD (attention deficit hyperactivity disorder), combined type F90.2 [facility] [place] [address] [place] [address] Oct, ADHD (attention deficit hyperactivity disorder), combined type F90.2 ; Anxiety disorder, unspecified type F41.9 and Unspecified mood [affective] disorder F39 [facility] [place] [address] [place] [address] Sep, ADHD (attention deficit hyperactivity disorder), combined type F90.2 [facility] [place] [address] [place] [address] Sep, [facility] [place] [address] [place] [address] Aug, ADHD (attention deficit hyperactivity disorder), combined type F90.2 ; Major depressive disorder, single episode, mild F32.0 and Anxiety disorder, unspecified type F41.9 [facility] [id number] [address] Aug, Sore throat J02.9 ; Other specified bacterial agents as the cause of diseases classified elsewhere B96.89 and Acute tonsillitis due to other specified organisms J03.80 [facility] [place] [id number] [address] Aug, ADHD (attention deficit hyperactivity disorder), combined type F90.2 [facility] [place] [address] [place] [address] Jul, ADHD (attention deficit hyperactivity disorder), combined type F90.2 [facility] [place] [address] [address] June, ADHD (attention deficit hyperactivity disorder), combined type F90.2 ; Major depressive disorder, single episode, mild F32.0 and Anxiety disorder, unspecified type F41.9 [facility] [place] [address] [address] June, [facility] [place] [id number] [place] [address] June, ADHD (attention deficit hyperactivity disorder), combined type F90.2 [facility] [place] [address] [place] [address] May, [facility] [place] [id number] [place] [address] May, ADHD (attention deficit hyperactivity disorder), combined type F90.2 ; Major depressive disorder, single episode, mild F32.0 and Anxiety disorder, unspecified type F41.9 [facility] [place] [address] [place] [address] May, Anxiety disorder, unspecified type F41.9 [facility] [place] [address] [place] [address] Apr, [facility] [place] [address], [place] [address] Apr, Anxiety disorder, unspecified type F41.9 [facility] [place] [address] [place] [address] Apr, Anxiety disorder, unspecified type F41.9 ; Major depressive disorder, single episode, mild F32.0 and ADHD (attention deficit hyperactivity disorder), combined type F90.2 [facility] [place] [address], [place] [address] Apr, [facility] [place] [address], [place] [address] Apr, ADHD (attention deficit hyperactivity disorder), combined type F90.2 ; Anxiety state F41.1 ; Depressive disorder, not elsewhere classified F32.9 ; Major depressive disorder, single episode, mild F32.0 and Anxiety disorder, unspecified type F41.9 [facility] [place] [id number] [place] [address] 28 Mar, 2017 ADHD (attention deficit hyperactivity disorder), combined type F90.2 [place] [id number] [place] [address] 20 Mar, 2017 Nausea R11.0 [place] [id number] [place] [address] 13 Mar, 2017 Screening for STD sexually transmitted disease Z11.3 ; Vaginal candidiasis B37.3 and Irritable bowel syndrome with diarrhea K58.0 [facility] [place] [address] [address] Mar, [place] [id number] [place] [address] Feb, ADHD (attention deficit hyperactivity disorder), combined type F90.2 [facility] [place] [address], [place] [address] Feb, Depressive disorder, not elsewhere classified F32.9 ; Anxiety state F41.1 and ADHD (attention deficit hyperactivity disorder), combined type F90.2 [facility] [place] [address] [address] Feb, Depressive disorder, not elsewhere classified F32.9 ; Anxiety state F41.1 and ADHD (attention deficit hyperactivity disorder), combined type F90.2 [facility] [place] [address] [address] Feb, ADHD (attention deficit hyperactivity disorder), combined type F90.2 [facility] [address] [place] [address] Jan, Other viral agents as the cause of diseases classified elsewhere B97.89 and Acute upper respiratory infection, unspecified J06.9 [facility] [place] [address], [place] [address] Jan, ADHD (attention deficit hyperactivity disorder), combined type F90.2 ; Major depressive disorder, single episode, mild F32.0 and Anxiety disorder, unspecified type F41.9 [place] [id number] [place] [address] Jan, [place] [id number] [place] [address] Jan, ADHD (attention deficit hyperactivity disorder), combined type F90.2 ; Major depressive disorder, single episode, mild F32.0 and Anxiety disorder, unspecified type F41.9 [place] [id number] [place] [address] Dec, Irritable bowel syndrome with diarrhea K58.0 and Lower abdominal pain R10.30 [place] [id number] [place] [address] Dec, Hospital discharge follow-up Z09 ; Mesenteric adenitis I88.0 ; IBD (inflammatory bowel disease) K52.9 and Nausea R11.0 [place] [id number] [place] [address] Nov, ADHD (attention deficit hyperactivity disorder), combined type F90.2 ; Major depressive disorder, single episode, mild F32.0 and Anxiety disorder, unspecified type F41.9 [place] [id number] [place] [address] Nov, Anxiety state F41.1 ; ADHD (attention deficit hyperactivity disorder), combined type F90.2 ; Major depressive disorder, single episode, mild F32.0 and Anxiety disorder, unspecified type F41.9 [place] [address] [address] Oct, Anxiety state F41.1 ; ADHD (attention deficit hyperactivity disorder), combined type F90.2 ; Major depressive disorder, single episode, mild F32.0 and Anxiety disorder, unspecified type F41.9 [place] [id number] [place] [address] 20 Oct, 2016 ADHD (attention deficit hyperactivity disorder), combined type F90.2 ; Major depressive disorder, single episode, mild F32.0 and Anxiety disorder, unspecified type F41.9 [place] [id number] [place] [address] Oct, Major depressive disorder, single episode, mild F32.0 ; Anxiety state F41.1 ; ADHD (attention deficit hyperactivity disorder), combined type F90.2 and Depressive disorder, not elsewhere classified F32.9 [facility] [id number] [place] [address] 16 Oct, 2016 [facility] [id number] [place] [address] Oct, Cellulitis L03.90 and Plantar wart of right foot B07.0 [place] [id number] [place] [address] Aug, ADHD (attention deficit hyperactivity disorder), combined type F90.2 ; Major depressive disorder, single episode, mild F32.0 and Anxiety disorder, unspecified type F41.9 [place] [address] [place] [address] Aug, [place] [id number] [place] [address] Jul, ADHD (attention deficit hyperactivity disorder), combined type F90.2 [place] [id number] [place] [address] Jul, Mesenteric adenitis I88.0 [place] [address] [place] [address] June, [facility] [id number] [place] [address] June, Lower abdominal pain R10.30 [facility] [place] [id number] [place] [address] June, [place] [id number] [place] [address] June, ADHD (attention deficit hyperactivity disorder), combined type F90.2 and Major depressive disorder, single episode, mild F32.0 [place] [id number] [place] [address] May, [place] [id number] [place] [address] May, ADHD (attention deficit hyperactivity disorder), combined type F90.2 and Major depressive disorder, single episode, mild F32.0 [facility] [id number] [place] [address] Apr, Abdominal pain R10.9 and Gastroenteritis and colitis, viral A08.4 [place] [id number] [place] [address] Apr, [facility] [place] [id number] [place] [address] Mar, Acute urticaria L50.8 [place] [id number] [place] [address] Mar, [place] [address] [place] [address] Feb, [facility] [id number] [place] [address] Feb, Gastroenteritis K52.9 [place] [id number] [place] [address] 05 Hmoe, 2017 Irritant contact dermatitis due to cosmetics L24.3 [facility] [place] [id number] [place] [address] Jan, [facility] [place] [address] [address] Jan, [facility] [place] [address] [address] Jan, ADHD (attention deficit hyperactivity disorder), combined type F90.2 and Major depressive disorder, single episode, mild F32.0 [facility] [address] [address] Dec, Flexural eczema L20.82 [facility] [place] [address] [address] Dec, Encounter for test Z32.00 [place] [address] [address] Dec, [facility] [place] [id number] [place] [address] Dec, [facility] [place] [address] [address] Dec, [facility] [id number] [place] [address] Nov, Sore throat J02.9 and Pharyngitis, unspecified etiology J02.9 [facility] [place] [id number] [place] [address] Nov, [facility] [place] [id number] [place] [address] Nov, [place] [address] [address] Nov, Generalized abdominal pain R10.84 and Slow transit constipation K59.01 [facility] [address] [id number] Nov, Pharyngitis, unspecified etiology J02.9 and Rhinitis, unspecified type J31.0 [facility] [place] [id number] [place] [address] Oct, Depressive disorder, not elsewhere classified F32.9 and ADHD (attention deficit hyperactivity disorder), combined type F90.2 [facility] [place] [id number] [place] [address] Oct, [facility] [place] [id number] [place] [address] Oct, [facility] [id number] [place] [address] Oct, Strep throat J02.0 [facility] [place] [id number] [place] [address] Oct, [facility] [place] [id number] [place] [address] Oct, Well woman exam with routine gynecological exam Z01.419 and Screening for STD sexually transmitted disease Z11.3 [place] [id number] [place] [address] Sep, ADHD (attention deficit hyperactivity disorder), combined type F90.2 ; Anxiety state F41.1 and Depressive disorder, not elsewhere classified F32.9 [place] [id number] [place] [address] Sep, ADHD (attention deficit hyperactivity disorder), combined type F90.2 and Depressive disorder, not elsewhere classified F32.9 [facility] [place] [id number] [place] [address] Aug, [facility] [place] [id number] [place] [address] Aug, ADHD (attention deficit hyperactivity disorder), combined type F90.2 and Depressive disorder, not elsewhere classified F32.9 [facility] [place] [id number] [place] [address] Aug, ADHD (attention deficit hyperactivity disorder), combined type F90.2 ; Anxiety state F41.1 and Depressive disorder, not elsewhere classified F32.9 [facility] [place] [address] [place] [address] Aug, [facility] [place] [id number] [place] [address] Aug, [facility] [place] [id number] [place] [address] Jul, ADHD (attention deficit hyperactivity disorder), combined type F90.2 ; Depressive disorder, not elsewhere classified F32.9 and Anxiety state F41.1 [facility] [place] [id number] [place] [address] Jul, [facility] [place] [id number] [place] [address] Jul, ADHD (attention deficit hyperactivity disorder), combined type F90.2 ; Anxiety state F41.1 and Depressive disorder, not elsewhere classified F32.9 [facility] [place] [id number] [place] [address] June, [facility] [id number] [place] [id number] June, Constipation K59.00 [facility] [place] [id number] [place] [address] May, Constipation K59.00 [facility] [id number] [place] [address] May, Irritable bowel syndrome with diarrhea K58.0 [facility] [place] [id number] [place] [address] May, [facility] [place] [id number] [place] [address] May, [facility] [place] [id number] [place] [address] 14 May, 2014 [facility] [place] [facility] [address] [id number] [place] [address] May, [facility] [place] [facility] [address] [id number] [place] [address] Jan, [facility] [place] [facility] [address] [id number] [place] [address] Jan, [facility] [place] [facility] [address] [id number] [place] [address] Jan, [facility] [place] [facility] [address] [id number] [place] [address] Jan, [facility] [place] [facility] [address] [id number] [place] [address] Jan, [facility] [place] [facility] [address] [id number] [place] [address] Jan, [facility] [place] [facility] [address] [id number] [place] [address] Nov, [facility] [place] [facility] [address] [id number] [place] [address] Nov, [facility] [place] [facility] [address] [id number] [place] [address] Oct, [facility] [place] [facility] [address] [id number] [place] [address] Oct, [facility] [place] [facility] [address] [id number] [place] [address] Sep, [facility] [place] [facility] [address] [id number] [place] [address] Sep, [facility] [place] [facility] [address] [id number] [place] [address] Aug, [facility] [place] [facility] [address] [id number] [place] [address] Aug, [facility] [place] [facility] [address] [id number] [place] [address] Aug, [facility] [place] [facility] [address] [id number] [place] [address] Aug, [facility] [place] [facility] [address] [id number] [place] [address] Aug, [facility] [place] [facility] [address] [id number] [place] [address] Aug, [facility] [place] [facility] [address] [id number] [place] [address] Aug, [facility] [place] [facility] [address] [id number] [place] [address] Aug, [facility] [place] [facility] [address] [id number] [place] [address] Jul, [facility] [place] [facility] [address] [id number] [place] [address] Jul, [facility] [place] [facility] [address] [id number] [place] [address] Jul, [facility] [place] [facility] [address] [id number] [place] [address] Jul, [facility] [place] [facility] [address] [id number] [place] [address] Jul, [facility] [place] [facility] [address] [id number] [place] [address] Jul, [facility] [place] [facility] [address] [id number] [place] [address] Jul, [facility] [place] [facility] [address] [id number] [place] [address] Jul, [facility] [place] [facility] [address] [id number] [place] [address] Jul, [facility] [place] [facility] [address] [id number] [place] [address] June, [facility] [place] [facility] [address] [id number] [place] [address] June, [facility] [place] [facility] [address] [id number] [place] [address] May, [facility] [place] [facility] [address] [id number] [place] [address] May, [facility] [place] [facility] [address] [id number] [place] [address] May, [facility] [place] [facility] [address] [id number] [place] [address] May, [facility] [place] [facility] [address] [id number] [place] [address] May, [facility] [place] [facility] [address] [id number] [place] [address] May, [facility] [place] [facility] [address] [id number] [place] [address] May, [facility] [place] [facility] [address] [id number] [place] [address] May, [facility] [place] [facility] [address] [id number] [place] [address] May, [facility] [place] [facility] [address] [id number] [place] [address] May, [facility] [place] [facility] [address] [id number] [place] [address] May, [facility] [place] [facility] [address] [id number] [place] [address] May, [facility] [place] [facility] [address] [id number] [place] [address] Apr, [facility] [place] [facility] [address] [id number] [place] [address] Apr, [facility] [place] [facility] [address] [id number] [place] [address] Apr, [facility] [place] [facility] [address] [id number] [place] [address] Apr, [facility] [place] [facility] [address] [id number] [place] [address] Mar, [facility] [place] [facility] [address] [id number] [place] [address] Mar, [facility] [place] [facility] [address] [id number] [place] [address] Mar, [facility] [place] [facility] [address] [id number] [place] [address] Mar, [facility] [place] [facility] [address] [id number] [place] [address] Mar, [facility] [place] [facility] [address] [id number] [place] [address] Mar, [facility] [place] [facility] [address] [id number] [place] [address] Mar, [facility] [place] [facility] [address] [id number] [place] [address] Mar, [facility] [place] [facility] [address] [facility] [id number] [place] [address] 19 Mar, 2013 [facility] [place] [facility] [address] [id number] [place] [address] 19 Mar, 2013 [facility] [place] [facility] [address] [id number] [place] [address] 14 Mar, 2013 [facility] [place] [facility] [address] [id number] [place] [address] 14 Mar, 2013 [facility] [place] [facility] [address] [id number] [place] [address] 13 Mar, 2013 [facility] [place] [facility] [address] [facility] [id number] [place] [address] Mar, [facility] [place] [facility] [address] [id number] [place] [address] Mar, [facility] [place] [facility] [address] [id number] [place] [address] Mar, [facility] [place] [facility] [address] [id number] [place] [address] Mar, [facility] [place] [facility] [address] [id number] [place] [address] Mar, [facility] [place] [facility] [address] [id number] [place] [address] Mar, [facility] [place] [facility] [address] [id number] [place] [address] Mar, [facility] [place] [facility] [address] [facility] [id number] [place] [address] Feb, [facility] [place] [facility] [address] [id number] [place] [address] Feb, [facility] [place] [facility] [address] [id number] [place] [address] Feb, [facility] [place] [facility] [address] [facility] [id number] [place] [address] Feb, [facility] [place] [facility] [address] [id number] [place] [address] Feb, [facility] [place] [facility] [address] [id number] [place] [address] Feb, [facility] [place] [facility] [address] [id number] [place] [address] Feb, [facility] [place] [facility] [address] [id number] [place] [address] Feb, [facility] [place] [facility] [address] [facility] [id number] [place] [address] Feb, [facility] [place] [facility] [address] [id number] [place] [address] 24 Feb, 2013 [facility] [place] [facility] [address] [id number] [place] [address] Feb, [facility] [place] [facility] [address] [id number] [place] [address] Feb, [facility] [place] [facility] [address] [id number] [place] [address] Feb, [facility] [place] [facility] [address] [id number] [place] [address] Feb, [facility] [place] [facility] [address] [id number] [place] [address] Feb, [facility] [place] [facility] [address] [id number] [place] [address] Feb, [facility] [place] [facility] [address] [id number] [place] [address] Feb, [facility] [place] [facility] [address] [id number] [place] [address] Feb, [facility] [place] [facility] [address] [id number] [place] [address] Feb, [facility] [place] [facility] [address] [id number] [place] [address] Feb, [facility] [place] [facility] [address] [id number] [place] [address] Feb, [facility] [place] [facility] [address] [id number] [place] [address] Feb, [facility] [place] [facility] [address] [id number] [place] [address] Feb, [facility] [place] [facility] [address] [id number] [place] [address] Jan, [facility] [place] [facility] [address] [id number] [place] [address] 24 Jan, 2013 [facility] [address] [id number] [place] [address] 19 Jan, 2013 [facility] [place] [facility] [address] [id number] [place] [address] 18 Jan, 2013 [facility] [address] [facility] [id number] [place] [address] Jan, [facility] [place] [facility] [address] [id number] [place] [address] 18 Jan, 2013 [facility] [address] [id number] [place] [address] 18 Jan, 2013 [facility] [place] [facility] [address] [id number] [place] [address] Jan, [facility] [address] [id number] [place] [address] Jan, [facility] [place] [facility] [address] [id number][place] [address] Jan, [facility] [place] [facility] [address] [id number] [place] [address] Jan, [facility] [place] [facility] [address] [facility] [id number], [place] [address] Jan, [facility] [place] [facility] [address] [id number], [place] [address] Jan, [facility] [place] [facility] [address] [id number], [place] [address] Dec, [facility] [place] [facility] [address] [id number] [place] [address] Dec, [facility] [place] [facility] [address] [id number], [place] [address] Dec, [facility] [place] [facility] [address] [facility] [id number], [place] [address] Dec, [facility] [place] [facility] [id number], [place] [address] Dec, [facility] [place] [address] [facility] [id number], [place] [address] Dec, [facility] [place] [address] [facility] [id number], [place] [address] Nov, [facility] [place] [address] [facility] [id number], [place] [address] Nov, [facility] [place] [address] [facility] [id number], [place] [address] Nov, [facility] [place] [id number] [place] [address] Nov, [facility] [place] [address] [facility] [id number], [place] [address] Nov, [facility] [place] [address], [place] [address] Nov, [facility] [place] [address], [place] [address] 28 Oct, 2012 [facility] [place] [address], [place] [address] 27 Oct, 2012 [facility] [place] [address], [place] [address] 26 Oct, 2012 [facility] [place] [address], [place] [address] Oct, [facility] [place] [address] [id number], [place] [address] 25 Oct, 2012 [facility] [place] [address], [place] [address] 18 Oct, 2012 [facility] [place] [address], [place] [address] Oct, IMMUNIZATIONS No Known Immunizations SOCIAL HISTORY Never Assessed REASON FOR VISIT EMR-[facility] [place] PLAN OF CARE VITAL SIGNS MEDICATIONS No Known Medications RESULTS No Results PROCEDURES No Known [...]
[2018-07-21] MEDS ORDERED: NS IV 1000 ML 1,000 ML IV SCH (12:15)
[2018-07-21] MEDS ORDERED: ONDANSETRON 4 MG/2 ML (SDV) Z0FRAN IVP ONE (12:15)
[2018-07-21 12:23] LABS: BASOPHILS % (AUTO) 1 % (0-10); EOSINOPHILS # (AUTO) 0.1 10^3/uL (0.0-0.3); EOSINOPHILS % (AUTO) 2 % (0-10); HEMATOCRIT 40 % (35-52); HEMOGLOBIN 13.7 G/DL (11.5-16.0); LYMPHOCYTES # (AUTO) 1.6 X 10^3 (1.0-4.0); LYMPHOCYTES % (AUTO) 26 % (12-44); MEAN CORPUSCULAR HEMOGLOBIN 29 PG (25-34); MEAN CORPUSCULAR HGB CONC 34 G/DL (32-36); MEAN CORPUSCULAR VOLUME 83 FL (80-99); MONOCYTES # (AUTO) 0.5 X 10^3 (0.0-1.0); MONOCYTES % (AUTO) 7 % (0-12); NEUTROPHILS % (AUTO) 65 % (42-75); PLATELET COUNT 241 10^3/uL (130-400); RED CELL DISTRIBUTION WIDTH 13.6 % (10.0-14.5); WHITE BLOOD COUNT 6.2 10^3/uL (4.3-11.0)
[2018-07-21 12:26] LABS: BILIRUBIN,URINE NEGATIVE (NEGATIVE); GLUCOSE, URINE (UA) NEGATIVE (NEGATIVE); KETONES,URINE 1+ (NEGATIVE); LEUKOCYTE ESTERASE ,URINE NEGATIVE (NEGATIVE); NITRITE,URINE NEGATIVE (NEGATIVE); PH,URINE 5 (5-9); PROTEIN,URINE 1+ (NEGATIVE); UROBILINOGEN,URINE NORMAL (NORMAL)
[2018-07-21 12:30] LABS: CLARITY,URINE CLEAR; COLOR,URINE YELLOW
--- NOTE | 2018-07-21 12:35 | ED Abdominal Pain ---
General Chief Complaint: Abdominal/GI Problems Stated Complaint: VOMITING / RECTAL BLEEDING Nursing Triage Note: Pt c/o abdominal pain, nausea, vomiting and bleeding from rectum. Pt reports a diagnosis of IBS and also eating [employer] last night. Symptoms reports symptoms began prior to eating [employer]. Sepsis Screen: No Definite Risk Source of Information: Patient Exam Limitations: No Limitations History of Present Illness Date Seen by Provider: Jul 21, 2018 Time Seen by Provider: 11:54 Initial Comments 23-year-old female who presents to the emergency room with complaints of abdominal pain, nausea, one episode of vomiting, and noticing blood on her toilet paper when wiping after bowel movements. She reports that she has a history of IBS and reports eating [employer] yesterday for lunch and [employer] last night for dinner. She reports symptoms began after eating [employer]. She denies fevers. Timing/Duration: 12-24 Hours Severity/Quality: Cramping Associated Symptoms: Nausea/Vomiting Allergies and Home Medications Allergies Coded Allergies: No Known Drug Allergies (Unverified , 08/06/16) Home Medications Nitrofurantoin Monohyd/M-Cryst 100 Mg Capsule, 1 TAB PO BID Prescribed by: CRISTINA OLIVIER on 07/21/18 1326 Ondansetron 4 Mg Tab.rapdis, 4 MG PO Q4H PRN for NAUSEA/VOMITING-1ST LINE Prescribed by: CRISTINA OLIVIER on 07/21/18 1258 Patient Home Medication List Home Medication List Reviewed: Yes Review of Systems Review of Systems Constitutional: see HPI; No chills, No fever Gastrointestinal: See HPI, Abdominal Pain, Nausea, Rectal Bleeding, Vomiting All Other Systems Reviewed Negative Unless Noted: Yes Past Duvcdgn-Uxarjy-Yoirbg Hx Past Med/Social Hx: Reviewed Nursing Past Med/Soc Hx Patient Social History Alcohol Use: Denies Use Recreational Drug Use: No Drug of Choice: MARIJUANA Smoking Status: Current Someday Smoker Type Used: Cigarettes 2nd Hand Smoke Exposure: Yes Recent Foreign Travel: No Contact w/Someone Who Travel: No Recent Infectious Disease Expo: No Recent Hopitalizations: No Immunizations Up To Date Tetanus Booster (TDap): Less than 5yrs PED Vaccines UTD: No Date of Influenza Vaccine: Dec 21, 2012 Seasonal Allergies Seasonal Allergies: Yes Past Medical History Surgeries: Yes (HERNIA REPAIR INFANT; [facility]) Abdominal Respiratory: Yes Asthma Currently Using CPAP: No Currently Using BIPAP: No Cardiac: No Neurological: No Last Menstrual Period: June 20, 2018 Reproductive Disorders: No Female Reproductive Disorders: Denies Sexually Transmitted Disease: No HIV/AIDS: No Genitourinary: Yes Bladder Infection Gastrointestinal: Yes (MESENTERIC ADENITIS. CHRONIC ABDOMINAL PAIN, NAUSEA/VOMITING COMPLAINTS) Abdominal Hernia, Irritable Bowel Musculoskeletal: No Endocrine: No HEENT: No Cancer: No Psychosocial: Yes ADD/ADHD, Anxiety, Suicide Attempts, Bipolar, Depression Integumentary: Yes Eczema Blood Disorders: No Adverse Reaction/Blood Tranf: No Family Medical History Reviewed Nursing Family Hx No Family History of: Alcoholism Cancer Chest pain Congenital heart disease Congestive heart failure Family history: Arthritis Family history: Asthma Family history: Breast disease Family history: Cardiovascular disease Family history: Coronary thrombosis Family history: Diabetes mellitus Family history: Hypertension Family history: Thyroid disorder Headache History of - anemia History of - respiratory disease History of drug abuse Human immunodeficiency virus (HIV) seropositivity Hypercholesterolemia Infertile Kidney disease Myocardial infarction Psychotic disorder Seizure disorder Stroke Tuberculosis Visual impairment Physical Exam Vital Signs Vital Signs - First Documented 07/21/18 12:03 Temp 98.4 Pulse 80 Resp 14 B/P (MAP) 111/65 (80) Pulse Ox 98 O2 Delivery Room Air Capillary Refill : Less Than 3 Seconds Height/Weight/BMI Height: 5'2.00" Weight: 130lbs. 0.0oz. 58.028613rp; 24.0 BMI Method:Stated General Appearance: WD/WN, no apparent distress Respiratory: chest non-tender, lungs clear, normal breath sounds, no res piratory distress, no accessory muscle use Cardiovascular: normal peripheral pulses, regular rate, rhythm, no edema, no gallop, no JVD, no murmur Gastrointestinal: normal bowel sounds, non tender, soft, no organomegaly, no pulsatile mass Rectal: normal exam, normal rectal tone, heme negative stool, other (exam was assisted by Jessica CLEMONS.) Extremities: normal capillary refill Neurologic/Psychiatric: alert, normal mood/affect, oriented x 3 Skin: normal color, warm/dry Progress/Results/Core Measures Results/Orders Lab Results Laboratory Tests Test 07/21/18 12:00 07/21/18 12:14 Range/Units Urine Color YELLOW Urine Clarity CLEAR Urine pH 5 5-9 Urine Specific [place] 1.025 H 1.016-1.022 Urine Protein 1+ H NEGATIVE Urine Glucose (UA) NEGATIVE NEGATIVE Urine Ketones 1+ H NEGATIVE Urine Nitrite NEGATIVE NEGATIVE Urine Bilirubin NEGATIVE NEGATIVE Urine Urobilinogen NORMAL NORMAL MG/DL Urine Leukocyte Esterase NEGATIVE NEGATIVE Urine RBC (Auto) 2+ H NEGATIVE Urine RBC NONE /HPF Urine WBC 5-10 H /HPF Urine Squamous Epithelial Cells 5-10 /HPF Urine Crystals NONE /LPF Urine Bacteria MODERATE H /HPF Urine Casts NONE /LPF Urine Mucus NEGATIVE /LPF Urine Culture Indicated YES White Blood Count 6.2 4.3-11.0 10^3/uL Red Blood Count 4.80 4.35-5.85 10^6/uL Hemoglobin 13.7 11.5-16.0 G/DL Hematocrit 40 35-52 % Mean Corpuscular Volume 83 80-99 FL Mean Corpuscular Hemoglobin 29 25-34 PG Mean Corpuscular Hemoglobin Concent 34 32-36 G/DL Red Cell Distribution Width 13.6 10.0-14.5 % Platelet Count 241 130-400 10^3/uL Mean Platelet Volume 11.0 H 7.4-10.4 FL Neutrophils (%) (Auto) 65 42-75 % Lymphocytes (%) (Auto) 26 12-44 % Monocytes (%) (Auto) 7 0-12 % Eosinophils (%) (Auto) 2 0-10 % Basophils (%) (Auto) 1 0-10 % Neutrophils # (Auto) 4.0 1.8-7.8 X 10^3 Lymphocytes # (Auto) 1.6 1.0-4.0 X 10^3 Monocytes # (Auto) 0.5 0.0-1.0 X 10^3 Eosinophils # (Auto) 0.1 0.0-0.3 10^3/uL Basophils # (Auto) 0.0 0.0-0.1 10^3/uL Sodium Level 138 135-145 MMOL/L Potassium Level 3.8 3.6-5.0 MMOL/L Chloride Level 107 98-107 MMOL/L Carbon Dioxide Level 22 21-32 MMOL/L Anion Gap 9 5-14 MMOL/L Blood Urea Nitrogen 10 7-18 MG/DL Creatinine 0.66 0.60-1.30 MG/DL Estimat Glomerular Filtration Rate > 60 BUN/Creatinine Ratio 15 Glucose Level 86 70-105 MG/DL Calcium Level 9.1 8.5-10.1 MG/DL Corrected Calcium 8.9 8.5-10.1 MG/DL Total Bilirubin 0.3 0.1-1.0 MG/DL Aspartate Amino Transf (AST/SGOT) 14 5-34 U/L Alanine Aminotransferase (ALT/SGPT) 13 0-55 U/L Alkaline Phosphatase 69 40-136 U/L Total Protein 6.9 6.4-8.2 GM/DL Albumin 4.2 3.2-4.5 GM/DL Amylase Level 32 25-125 U/L Lipase 10 8-78 U/L Micro Results Microbiology 07/21/18 Urine Culture - Final, Complete 3 or more isolates My Orders Orders - CRISTINA OLIVIER Ua Culture If Indicated (07/21/18 11:54) Urine Bedside (07/21/18 11:54) Comprehensive Metabolic Panel (07/21/18 12:03) Lipase (07/21/18 12:03) Amylase (07/21/18 12:03) Ed Iv/Invasive Line Start (07/21/18 12:03) Cbc With Automated Diff (07/21/18 12:03) Ns Iv 1000 Ml (Sodium Chloride 0.9%) (07/21/18 12:15) Ondansetron Injection (Zofran Injectio (07/21/18 12:15) Urine Culture (07/21/18 12:00) Medications Given in ED Vital Signs/I&O 07/21/18 07/21/18 12:03 13:09 Temp 98.4 Pulse 80 83 Resp 14 18 B/P (MAP) 111/65 (80) 114/70 (85) Pulse Ox 98 99 O2 Delivery Room Air Blood Pressure Mean: 80 Fecal Occult: Negative Progress Progress Note : Time: 12:57 Progress Note I have seen and evaluated the patient. I've informed her of her laboratory studies. Her symptoms have resolved at this time. She will be treated for her urinary tract infection. She agrees with plan of care, plans for discharge, return precautions were given. Departure Impression Primary Impression: Nausea and vomiting Additional Impressions: Eczema Irritable bowel syndrome (IBS) Disposition: 01 HOME, SELF-CARE Condition: Stable/Unchanged Departure-Patient Inst. Decision time for Depature: 12:57 Referrals: [facility] (PCP/Family) Primary Care Physician Patient Instructions: Eczema (Atopic Dermatitis), Irritable Bowel Syndrome, Urinary Tract Infection, Adult (DC) Add. Discharge Instructions: Take medication as directed. Drink plenty of fluids to stay hydrated like water. Eat a bland diet with nothing high in fat or spicy. You may use any moment to the area of eczema. Follow-up with your primary care provider within 1 week for a recheck. Return back to the emergency room for worsening symptoms or concerns as needed. All discharge instructions reviewed with patient and/or family. Voiced understanding. Scripts Nitrofurantoin Monohyd/M-Cryst (Macrobid 100 mg Capsule) 100 Mg Capsule 1 TAB PO BID for 7 Days, #14 CAP Prov: CRISTINA OLIVIER 07/21/18 Ondansetron (Ondansetron Odt) 4 Mg Tab.rapdis 4 MG PO Q4H PRN for NAUSEA/VOMITING-1ST LINE, #14 TAB Prov: CRISTINA OLIVIER 07/21/18 CRISTINA OLIVIER Jul 21, 2018 12:35
[2018-07-21 12:40] LABS: BACTERIA,URINE MODERATE /HPF
[2018-07-21 12:43] LABS: ALANINE AMINOTRANSFERASE 13 U/L (0-55); ALBUMIN 4.2 GM/DL (3.2-4.5); ALKALINE PHOSPHATASE 69 U/L (40-136); AMYLASE 32 U/L (25-125); BILIRUBIN,TOTAL 0.3 MG/DL (0.1-1.0); BUN/CREATININE RATIO 15; CALCIUM 9.1 MG/DL (8.5-10.1); CARBON DIOXIDE 22 MMOL/L (21-32); CHLORIDE 107 MMOL/L (98-107); CREATININE SERUM 0.66 MG/DL (0.60-1.30); GFR ESTIMATED > 60; GLUCOSE 86 MG/DL (70-105); LIPASE 10 U/L (8-78); POTASSIUM 3.8 MMOL/L (3.6-5.0); SODIUM 138 MMOL/L (135-145); TOTAL PROTEIN 6.9 GM/DL (6.4-8.2)
[2018-07-21] MEDS ORDERED: ONDA4TAB11 PO (12:58)
[2018-07-21 13:09] VITALS: BP 114/70
[2018-07-21] MEDS ORDERED: NITR-65 PO (13:26)
== END 2018-07-21 13:05 | disposition home or self-care (01) ==
LOC: EDUNIT# 11:51 → ER 11:52
DX: L30.9 Dermatitis, unspecified (principal); K58.9 Irritable bowel syndrome, unspecified; J45.909 Unspecified asthma, uncomplicated; F90.9 Attention-deficit hyperactivity disorder, unspecified type; F41.9 Anxiety disorder, unspecified; F31.9 Bipolar disorder, unspecified; F17.210 Nicotine dependence, cigarettes, uncomplicated; Z98.890 Other specified postprocedural states; Z87.448 Personal history of other diseases of urinary system; Z91.5 Personal history of self-harm; Z87.19 Personal history of other diseases of the digestive system
CPT/HCPCS: 36415; 80053; 81000; 82150; 83690; 84703; 85025; 87088; 96361; 96374

== ENCOUNTER 2018-09-02 20:15 | Emergency (ER) | payer MEDICAID, OTHER ==
[~2018-09-02] VITALS: Ht 157.5 cm; Wt 59.0 kg
[~2018-09-02 20:15] MED LIST changes: +NITR-65 PO; +ONDA4TAB11 PO
[2018-09-02 20:51] LABS: BILIRUBIN,URINE NEGATIVE (NEGATIVE); CLARITY,URINE CLEAR; COLOR,URINE YELLOW; GLUCOSE, URINE (UA) NEGATIVE (NEGATIVE); KETONES,URINE 2+ (NEGATIVE); LEUKOCYTE ESTERASE ,URINE 2+ (NEGATIVE); NITRITE,URINE NEGATIVE (NEGATIVE); PH,URINE 6 (5-9); PROTEIN,URINE 1+ (NEGATIVE); UROBILINOGEN,URINE 1 MG/DL (NORMAL)
[2018-09-02 20:58] LABS: BACTERIA,URINE FEW /HPF; RBC,URINE 0-2 /HPF
[2018-09-02] MEDS ORDERED: IBUPROFEN 800 MG (MOTRIN) TAB PO ONE (21:00)
[2018-09-02] MEDS ORDERED: NS IV 1000 ML 1,000 ML IV SCH (21:00)
[2018-09-02] MEDS ORDERED: ACETAMINOPHEN 500 MG TAB (TYLENOL) PO ONE (21:00)
[2018-09-02 21:08] LABS: BASOPHILS % (AUTO) 0 % (0-10); EOSINOPHILS % (AUTO) 0 % (0-10); HEMATOCRIT 41 % (35-52); HEMOGLOBIN 13.5 G/DL (11.5-16.0); LYMPHOCYTES # (AUTO) 0.5 X 10^3 (1.0-4.0); LYMPHOCYTES % (AUTO) 5 % (12-44); MEAN CORPUSCULAR HEMOGLOBIN 28 PG (25-34); MEAN CORPUSCULAR HGB CONC 33 G/DL (32-36); MEAN CORPUSCULAR VOLUME 86 FL (80-99); MONOCYTES # (AUTO) 0.6 X 10^3 (0.0-1.0); MONOCYTES % (AUTO) 6 % (0-12); NEUTROPHILS % (AUTO) 89 % (42-75); PLATELET COUNT 202 10^3/uL (130-400); RED CELL DISTRIBUTION WIDTH 13.9 % (10.0-14.5); WHITE BLOOD COUNT 10.2 10^3/uL (4.3-11.0)
[2018-09-02 21:24] LABS: BAND NEUTROPHILS 3 %; BASOPHILS % (MANUAL) 1 %; EOSINOPHILS % (MANUAL) 0 %; LYMPHOCYTES % (MANUAL) 4 %; MONOCYTES % (MANUAL) 4 %; NEUTROPHILS % (MANUAL) 88 %; TOXIC GRANULATION/VACUOLAZATIO 1+
[2018-09-02 21:28] LABS: ALANINE AMINOTRANSFERASE 11 U/L (0-55); ALBUMIN 4.1 GM/DL (3.2-4.5); ALKALINE PHOSPHATASE 81 U/L (40-136); BILIRUBIN,TOTAL 0.3 MG/DL (0.1-1.0); BUN/CREATININE RATIO 13; CALCIUM 9.3 MG/DL (8.5-10.1); CARBON DIOXIDE 20 MMOL/L (21-32); CHLORIDE 104 MMOL/L (98-107); CREATININE SERUM 0.76 MG/DL (0.60-1.30); GFR ESTIMATED > 60; GLUCOSE 115 MG/DL (70-105); POTASSIUM 3.4 MMOL/L (3.6-5.0); SODIUM 136 MMOL/L (135-145); TOTAL PROTEIN 7.5 GM/DL (6.4-8.2)
--- NOTE | 2018-09-02 21:28 | ED GU-Female ---
General Chief Complaint: - Urinary Stated Complaint: UTI Nursing Sepsis Screen: Possible Sepsis Risk Source: patient Exam Limitations: no limitations (ROSA BARBA APRN) History of Present Illness Date Seen by Provider: Sep 02, 2018 Time Seen by Provider: 21:26 Initial Comments To ER per private vehicle with reports of urinary tract infection. She states that she was recently treated for one with antibiotics but she has completed those. She continues to have some low back pain and nausea. She also has a bit of abdominal pain lower in the abdomen, sore throat and headache. She's also had a couple episodes of vaginal bleeding. Timing/Duration: constant, getting worse Severity/Quality: moderate Location: suprapubic Radiation: none Activities at Onset: none Prior Genitourinary Problems: none Associated Symptoms: denies symptoms (ROSA BARBA APRN) Allergies and Home Medications Allergies Coded Allergies: No Known Drug Allergies (Unverified , 09/02/18) Home Medications Nitrofurantoin Monohyd/M-Cryst 100 Mg Capsule, 1 TAB PO BID Prescribed by: CRISTINA OLIVIER on 07/21/18 1326 Ondansetron 4 Mg Tab.rapdis, 4 MG PO Q4H PRN for NAUSEA/VOMITING-1ST LINE Prescribed by: CRISTINA OLIVIER on 07/21/18 1258 Patient Home Medication List Home Medication List Reviewed: Yes (ROSA BARBA APRN) Review of Systems Review of Systems Constitutional: see HPI, chills, fever EENTM: see HPI, throat pain Respiratory: no symptoms reported Cardiovascular: no symptoms reported Gastrointestinal: abdominal pain Genitourinary: no symptoms reported Musculoskeletal: no symptoms reported Skin: no symptoms reported Psychiatric/Neurological: No Symptoms Reported Endocrine: No Symptoms Reported (ROSA BARBA APRN) Past Kjqfsct-Rfrjkp-Wzoxhw Hx Patient Social History Alcohol Use: Denies Use Recreational Drug Use: No (denies) Drug of Choice: MARIJUANA Type Used: Cigarettes 2nd Hand Smoke Exposure: Yes Recent Foreign Travel: No Contact w/Someone Who Travel: No Recent Hopitalizations: No (ROSA BARBA APRN) Immunizations Up To Date Tetanus Booster (TDap): Less than 5yrs PED Vaccines UTD: No Date of Influenza Vaccine: Dec 21, 2012 (ROSA BARBA APRN) Seasonal Allergies Seasonal Allergies: Yes (ROSA BARBA APRN) Past Medical History Surgeries: Yes (HERNIA REPAIR ; COLONOSCOPY 2015 IN CODY) Abdominal Respiratory: Yes Asthma Currently Using CPAP: No Currently Using BIPAP: No Cardiac: No Neurological: No Reproductive Disorders: No Female Reproductive Disorders: Denies Sexually Transmitted Disease: No HIV/AIDS: No Genitourinary: Yes Bladder Infection Gastrointestinal: Yes (MESENTERIC ADENITIS. CHRONIC ABDOMINAL PAIN, NAUSEA/VOMITING COMPLAINTS) Abdominal Hernia, Irritable Bowel Musculoskeletal: No Endocrine: No HEENT: No Cancer: No Psychosocial: Yes ADD/ADHD, Anxiety, Suicide Attempts, Bipolar, Depression Integumentary: Yes Eczema Blood Disorders: No Adverse Reaction/Blood Tranf: No (ROSA BARBA APRN) Family Medical History No Family History of: Alcoholism Cancer Chest pain Congenital heart disease Congestive heart failure Family history: Arthritis Family history: Asthma Family history: Breast disease Family history: Cardiovascular disease Family history: Coronary thrombosis Family history: Diabetes mellitus Family history: Hypertension Family history: Thyroid disorder Headache History of - anemia History of - respiratory disease History of drug abuse Human immunodeficiency virus (HIV) seropositivity Hypercholesterolemia Infertile Kidney disease Myocardial infarction Psychotic disorder Seizure disorder Stroke Tuberculosis Visual impairment Physical Exam Vital Signs Vital Signs - First Documented (CURTIS GOMEZ MD) Vital Signs Capillary Refill : Less Than 3 Seconds (ROSA BARBA APRN) Height, Weight, BMI Height: 5'2.00" Weight: 130lbs. 0.0oz. [id number]; 24.0 BMI Method:Stated General Appearance: WD/WN, no apparent distress HEENT: PERRL/EOMI, normal ENT inspection Respiratory: no respiratory distress, no accessory muscle use Gastrointestinal: normal bowel sounds, soft, tenderness (suprapubic) Pelvic: other (pelvic exam done with John CLEMONS at the bedside. There is no cervical motion tenderness. There is slight amount of cervical friability and dark clotted blood at the cervical os) Neurologic/Psychiatric: alert, normal mood/affect, oriented x 3 Skin: normal color, warm/dry (ROSA BARBA APRN) Focused Exam Lactate Level 09/02/18 21:00: Lactic Acid Level 1.04 (CURTIS GOMEZ MD) Lactic Acid Level Laboratory Tests Test 09/02/18 21:00 Lactic Acid Level 1.04 MMOL/L (0.50-2.00) (CURTIS GOMEZ MD) Progress/Results/Core Measures Suspected Sepsis Recent Fever Within 48 Hours: Yes Infection Criteria Present: Suspected New Infection New/Unexplained Altered Menta: No Sepsis Screen: Possible Sepsis Risk SIRS Temperature:103.7 Pulse: 129 Respiratory Rate: 18 Laboratory Tests 09/02/18 21:00: White Blood Count 10.2 Blood Pressure 114 /67 Mean: 83 09/02/18 21:00: Lactic Acid Level 1.04 Laboratory Tests 09/02/18 21:00: Creatinine 0.76, Platelet Count 202, Total Bilirubin 0.3 (ROSA BARBA APRN) Results/Orders Lab Results Laboratory Tests Test 09/02/18 20:44 09/02/18 21:00 09/02/18 21:05 09/02/18 22:21 Range/Units Urine Color YELLOW Urine Clarity CLEAR Urine pH 6 5-9 Urine Specific [place] 1.015 L 1.016-1.022 Urine Protein 1+ H NEGATIVE Urine Glucose (UA) NEGATIVE NEGATIVE Urine Ketones 2+ H NEGATIVE Urine Nitrite NEGATIVE NEGATIVE Urine Bilirubin NEGATIVE NEGATIVE Urine Urobilinogen 1 NORMAL MG/DL Urine Leukocyte Esterase 2+ H NEGATIVE Urine RBC (Auto) 2+ H NEGATIVE Urine RBC 0-2 /HPF Urine WBC 2-5 /HPF Urine Squamous Epithelial Cells 10-25 H /HPF Urine Crystals NONE /LPF Urine Bacteria FEW H /HPF Urine Casts NONE /LPF Urine Mucus MODERATE H /LPF Urine Culture Indicated YES White Blood Count 10.2 4.3-11.0 10^3/uL Red Blood Count 4.75 4.35-5.85 10^6/uL Hemoglobin 13.5 11.5-16.0 G/DL Hematocrit 41 35-52 % Mean Corpuscular Volume 86 80-99 FL Mean Corpuscular Hemoglobin 28 25-34 PG Mean Corpuscular Hemoglobin Concent 33 32-36 G/DL Red Cell Distribution Width 13.9 10.0-14.5 % Platelet Count 202 130-400 10^3/uL Mean Platelet Volume 11.0 H 7.4-10.4 FL Neutrophils (%) (Auto) 89 H 42-75 % Lymphocytes (%) (Auto) 5 L 12-44 % Monocytes (%) (Auto) 6 0-12 % Eosinophils (%) (Auto) 0 0-10 % Basophils (%) (Auto) 0 0-10 % Neutrophils # (Auto) 9.0 H 1.8-7.8 X 10^3 Lymphocytes # (Auto) 0.5 L 1.0-4.0 X 10^3 Monocytes # (Auto) 0.6 0.0-1.0 X 10^3 Eosinophils # (Auto) 0.0 0.0-0.3 10^3/uL Basophils # (Auto) 0.0 0.0-0.1 10^3/uL Neutrophils % (Manual) 88 % Lymphocytes % (Manual) 4 % Monocytes % (Manual) 4 % Eosinophils % (Manual) 0 % Basophils % (Manual) 1 % Band Neutrophils 3 % Toxic Granulation 1+ Sodium Level 136 135-145 MMOL/L Potassium Level 3.4 L 3.6-5.0 MMOL/L Chloride Level 104 98-107 MMOL/L Carbon Dioxide Level 20 L 21-32 MMOL/L Anion Gap 12 5-14 MMOL/L Blood Urea Nitrogen 10 7-18 MG/DL Creatinine 0.76 0.60-1.30 MG/DL Estimat Glomerular Filtration Rate > 60 BUN/Creatinine Ratio 13 Glucose Level 115 H 70-105 MG/DL Lactic Acid Level 1.04 0.50-2.00 MMOL/L Calcium Level 9.3 8.5-10.1 MG/DL Corrected Calcium 9.2 8.5-10.1 MG/DL Total Bilirubin 0.3 0.1-1.0 MG/DL Aspartate Amino Transf (AST/SGOT) 12 5-34 U/L Alanine Aminotransferase (ALT/SGPT) 11 0-55 U/L Alkaline Phosphatase 81 40-136 U/L Total Protein 7.5 6.4-8.2 GM/DL Albumin 4.1 3.2-4.5 GM/DL Monoscreen NEGATIVE NEGATIVE Group A Streptococcus Screen NEGATIVE NEGATIVE (CURTIS GOMEZ MD) My Orders Orders - CURTIS GOMEZ MD Wet Prep (09/02/18 22:25) Neisseria Gonorrhea Swab (09/02/18 22:25) Genital Culture (09/02/18 22:25) Chlamydia Trachomatis Swab (09/02/18 22:25) Azithromycin Tablet (Zithromax Tablet) (09/02/18 22:39) Ceftriaxone For Iv Use (Rocephin For I (09/02/18 22:39) Ceftriaxone For Iv Use (Rocephin For I (09/02/18 22:50) Water (Sterile) For Injection (Sterile W (09/02/18 22:50) (CURTIS GOMEZ MD) Medications Given in ED Current Medications Medications Dose Ordered Sig/Sony Route Start Time Stop Time Status Last Admin Dose Admin Acetaminophen 1,000 mg ONCE ONCE PO 09/02/18 21:00 09/02/18 21:01 DC 09/02/18 21:17 1,000 MG Fentanyl Citrate 50 mcg ONCE ONCE IVP 09/02/18 22:15 09/02/18 22:16 DC 09/02/18 22:12 50 MCG Ibuprofen 800 mg ONCE ONCE PO 09/02/18 21:00 09/02/18 21:01 DC 09/02/18 21:17 800 MG Ondansetron HCl 8 mg ONCE ONCE IVP 09/02/18 21:30 09/02/18 21:31 DC 09/02/18 22:11 8 MG (CURTIS GOMEZ MD) Vital Signs/I&O 09/02/18 09/02/18 09/02/18 09/02/18 20:30 20:30 21:17 22:25 Temp 103.8 103.8 103.7 99.8 Pulse 129 129 Resp 18 18 B/P (MAP) 114/67 114/67 (83) Pulse Ox 100 09/02/18 22:25 Pulse 105 Resp 18 B/P (MAP) 103/60 (74) Pulse Ox 97 (CURTIS GOMEZ MD) Vital Signs/I&O Capillary Refill : Less Than 3 Seconds (ROSA BARBA APRN) Blood Pressure Mean: 83 Progress Note : Progress Note Soon care the patient from Rosa Barba APRN pending wet prep and CT results. 1120: Wet prep was positive for clue and white cells. Rocephin 250 mg IV and Zi thromax 1 g by mouth given. We will prescribe outpatient cephalexin. The CT scan did not show any intra-abdominal pathology. Discharged home with return precautions. Patient verbalize understanding instructions and agreement with plan. Temperature is now normal. (CURTIS GOMEZ MD) Diagnostic Imaging Diagonstic Imaging: CT Plain Films/CT/US/NM/MRI: abdomen, pelvis Comments No evidence of bowel obstruction or focal abdominal inflammatory process. Reviewed: Reviewed by Me (CURTIS GOMEZ MD) Departure Communication (Admissions) 2205-just return from CT, states that she is having quite a bit of midline low back pain. She is able to flex her chin all the way to her chest, when she does so it does cause her pain but this is anteriorly over the thyroid region (ROSA BARBA APRN) Impression Primary Impression: Bacterial vaginosis Additional Impression: Fever Qualified Codes: R50.9 - Fever, unspecified Disposition: HOME, SELF-CARE Condition: Improved Departure-Patient Inst. Decision time for Depature: 23:30 (CURTIS GOMEZ MD) Referrals: [facility] [place] [facility] [place]/Family) Primary Care Physician Patient Instructions: Fever of Unknown Origin (DC), Bacterial Vaginosis Add. Discharge Instructions: All discharge instructions reviewed with patient and/or family. Voiced understanding. Take medications as directed. Follow up with your doctor for recheck and further evaluation in a few days. Return for worse pain, fever, vomiting, weakness, breathing problems or other concerns as needed.. Plenty of fluids. You may take ibuprofen 600 mg every 8 hours as needed for pain. You may also take Tylenol/acetaminophen 1000 mg every 8 hours as needed for pain. Scripts Metronidazole (Metronidazole) 500 Mg Tablet 500 MG PO BID, #14 TAB 0 Refills Prov: CURTIS GOMEZ MD 09/02/18 ROSA BARBA APRN Sep 02, 2018 21:28 CURTIS GOMEZ MD Sep 02, 2018 23:31
[2018-09-02] MEDS ORDERED: ONDANSETRON 4 MG/2 ML (SDV) Z0FRAN IVP ONE (21:30)
[2018-09-02] MEDS ORDERED: fentaNYL INJECTION 100 MCG/2 ML AMP IVP ONE (22:15)
[2018-09-02 22:25] VITALS: BP 103/60
[2018-09-02] MEDS ORDERED: AZITHROMYCIN 250 MG TAB (ZITHROMAX) PO STA (22:39)
[2018-09-02] MEDS ORDERED: cefTRIAXone FOR IV USE 250 MG in SYRINGE-IVPB 1 SYRINGE IV STA (22:39)
[2018-09-02] MEDS ORDERED: cefTRIAXone 1,000 MG IV (ROCEPHIN) VIAL ONE (22:50)
[2018-09-02] MEDS ORDERED: WATER (STERILE) FOR INJECTION 10 ML ONE (22:50)
[2018-09-02] MEDS ORDERED: METR-145 PO (23:31)
[2018-09-02 23:34] VITALS: BP 109/53
--- NOTE | 2018-09-03 07:31 | Diagnostic Imaging Report ---
PROCEDURE: CT abdomen and pelvis with contrast, rule out appendicitis. TECHNIQUE: Multiple contiguous axial images were obtained through the abdomen and pelvis after the administration of intravenous contrast. DATE: September 02, 2018. COMPARISON: Right upper quadrant abdominal ultrasound February 23, 2017. CT abdomen pelvis November 29, 2016. INDICATION: 23-year-old female, lower abdominal pain. FINDINGS: The visualized portions of the lung bases are clear. The heart is not enlarged. There is no pericardial effusion. The liver is normal in size and contour. There is no identified liver lesion. The main, right, and left portal veins are patent. The gallbladder is unremarkable. There is no intrahepatic or extrahepatic bile duct dilation. The main pancreatic duct is not abnormally dilated. Unremarkable appearance of the pancreatic parenchyma. The spleen is normal in size. The adrenal glands are unremarkable. Unremarkable appearance of the renal parenchyma. Urinary collecting systems are not distended. There is no identified renal or ureteral stone. The urinary bladder is unremarkable in appearance. The intestinal tract is not distended. The appendix is well seen on axial image 73 and adjacent sequential images. There is no free intraperitoneal air. There is no drainable fluid collection. There is no sizable volume free pelvic fluid. There is no identified abnormally enlarged lymph node in the abdomen or pelvis which meets CT size criteria for adenopathy. There is no identified acute bony abnormality. IMPRESSION: CT ABDOMEN AND PELVIS. 1. No identified acute abnormality in the abdomen or pelvis. Dictated by: Dictated on workstation # [id number]
== END 2018-09-02 23:36 | disposition home or self-care (01) ==
LOC: EDUNIT# 20:15 → ER 20:17
DX: N76.0 Acute vaginitis (principal); B96.89 Other specified bacterial agents as the cause of diseases classified elsewhere; J45.909 Unspecified asthma, uncomplicated; F90.9 Attention-deficit hyperactivity disorder, unspecified type; F41.9 Anxiety disorder, unspecified; F31.9 Bipolar disorder, unspecified; Z77.22 Contact with and (suspected) exposure to environmental tobacco smoke (acute) (chronic); Z98.890 Other specified postprocedural states
CPT/HCPCS: 36415; 74177; 80053; 81000; 83605; 84703; 85007; 85027; 86308; 87040; 87070; 87077; 87088; 87205; 87210; 87430; 87491; 87591; 96361; 96374; 96375

== ENCOUNTER 2018-11-05 11:18 | Emergency (ER) | payer SELFPAY ==
[~2018-11-05 11:18] MED LIST changes: +METR-145 PO
== END 2018-11-05 11:42 | disposition left against medical advice (07) ==
LOC: EDUNIT# 11:18 → ER 11:19
DX: Z32.01 Encounter for pregnancy test, result positive (principal)

== ENCOUNTER 2018-12-21 20:21 | Emergency (ER) | payer MEDICAID ==
[~2018-12-21] VITALS: Ht 157 cm; Wt 64.9 kg
[2018-12-21 20:49] LABS: BILIRUBIN,URINE NEGATIVE (NEGATIVE); CLARITY,URINE CLEAR; COLOR,URINE YELLOW; GLUCOSE, URINE (UA) NEGATIVE (NEGATIVE); KETONES,URINE 3+ (NEGATIVE); LEUKOCYTE ESTERASE ,URINE 1+ (NEGATIVE); NITRITE,URINE NEGATIVE (NEGATIVE); PH,URINE 6 (5-9); PROTEIN,URINE 2+ (NEGATIVE)
--- NOTE | 2018-12-21 20:54 | ED GU-Female ---
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 Pt is 11 wks preg, LMP 10/03/18. Nursing Sepsis Screen: No Definite Risk Source: patient Exam Limitations: no limitations History of Present Illness Date Seen by Provider: Dec 21, 2018 Time Seen by Provider: 20:51 Initial Comments To ER with a whitish brown discharge for 3 days, been rather copious, she is 11 weeks , last menstrual period 10/03/18, Ab1. Denies any obvious bleeding denies any pain she has had an ultrasound to confirm intrauterine at the [facility] Timing/Duration: getting worse Location: unknown Radiation: none Activities at Onset: none Prior Genitourinary Problems: none Associated Symptoms: denies symptoms Allergies and Home Medications Allergies Coded Allergies: No Known Drug Allergies (Unverified , 09/02/18) Home Medications Metronidazole 500 Mg Tablet, 500 MG PO BID Prescribed by: CURTIS GOMEZ on 09/02/18 2331 Nitrofurantoin Monohyd/M-Cryst 100 Mg Capsule, 1 TAB PO BID Prescribed by: CRISTNIA OLIVIER on 07/21/18 1326 Ondansetron 4 Mg Tab.rapdis, 4 MG PO Q4H PRN for NAUSEA/VOMITING-1ST LINE Prescribed by: CRISTINA OLIVIER on 07/21/18 1258 Patient Home Medication List Home Medication List Reviewed: Yes Review of Systems Review of Systems Constitutional: see HPI EENTM: see HPI Respiratory: no symptoms reported Cardiovascular: no symptoms reported Genitourinary: see HPI, discharge Musculoskeletal: no symptoms reported Skin: no symptoms reported Psychiatric/Neurological: No Symptoms Reported Past Naxxpsx-Ykbysd-Gkfmls Hx Patient Social History Alcohol Use: Denies Use Recreational Drug Use: No Drug of Choice: MARIJUANA in past Smoking Status: Never a Smoker Type Used: Cigarettes 2nd Hand Smoke Exposure: Yes Recent Foreign Travel: No Contact w/Someone Who Travel: No Recent Infectious Disease Expo: No Recent Hopitalizations: No Physical Abuse: No Sexual Abuse: No Mistreated: No Fear: No Immunizations Up To Date Tetanus Booster (TDap): Less than 5yrs PED Vaccines UTD: No Date of Influenza Vaccine: Dec 21, 2012 Seasonal Allergies Seasonal Allergies: Yes Past Medical History Surgeries: Yes (HERNIA REPAIR ; COLONOSCOPY 2015 IN C[place]) Abdominal Respiratory: Yes Asthma Currently Using CPAP: No Currently Using BIPAP: No Cardiac: No Neurological: No Reproductive Disorders: No Female Reproductive Disorders: Denies Sexually Transmitted Disease: No HIV/AIDS: No Genitourinary: Yes Bladder Infection Gastrointestinal: Yes (MESENTERIC ADENITIS. CHRONIC ABDOMINAL PAIN, NAUSEA/VOMITING COMPLAINTS) Abdominal Hernia, Irritable Bowel Musculoskeletal: No Endocrine: No HEENT: No Cancer: No Psychosocial: Yes ADD/ADHD, Anxiety, Suicide Attempts, Bipolar, Depression Integumentary: Yes Eczema Blood Disorders: No Adverse Reaction/Blood Tranf: No Family Medical History No Family History of: Alcoholism Cancer Chest pain Congenital heart disease Congestive heart failure Family history: Arthritis Family history: Asthma Family history: Breast disease Family history: Cardiovascular disease Family history: Coronary thrombosis Family history: Diabetes mellitus Family history: Hypertension Family history: Thyroid disorder Headache History of - anemia History of - respiratory disease History of drug abuse Human immunodeficiency virus (HIV) seropositivity Hypercholesterolemia Infertile Kidney disease Myocardial infarction Psychotic disorder Seizure disorder Stroke Tuberculosis Visual impairment Physical Exam Vital Signs Vital Signs - First Documented 12/21/18 20:34 Temp 36.1 Pulse 96 Resp 18 B/P (MAP) 117/75 (89) Pulse Ox 100 O2 Delivery Room Air Capillary Refill : Less Than 3 Seconds Height, Weight, BMI Height: 5'2.00" Weight: 130lbs. 0.0oz. 58.378964ay; 26.00 BMI Method:Stated General Appearance: WD/WN, no apparent distress HEENT: PERRL/EOMI, normal ENT inspection Respiratory: no respiratory distress, no accessory muscle use Gastrointestinal: normal bowel sounds, non tender, soft Pelvic: normal external exam, discharge; No lesions, No mass Neurologic/Psychiatric: alert, normal mood/affect, oriented x 3 Skin: normal color, warm/dry Bedside ultrasound reveals positive motion with cardiac activity Progress/Results/Core Measures Suspected Sepsis Recent Fever Within 48 Hours: No Infection Criteria Present: None New/Unexplained Altered Menta: No Sepsis Screen: No Definite Risk SIRS Temperature: Pulse: 96 Respiratory Rate: 18 Laboratory Tests 12/21/18 21:05: White Blood Count 10.0 Blood Pressure 117 /75 Mean: 89 Laboratory Tests 12/21/18 21:05: Platelet Count 236 Results/Orders Lab Results Laboratory Tests Test 12/21/18 20:35 12/21/18 21:00 12/21/18 21:05 Range/Units Urine Color YELLOW Urine Clarity CLEAR Urine pH 6 5-9 Urine Specific [place] 1.030 H 1.016-1.022 Urine Protein 2+ H NEGATIVE Urine Glucose (UA) NEGATIVE NEGATIVE Urine Ketones 3+ H NEGATIVE Urine Nitrite NEGATIVE NEGATIVE Urine Bilirubin NEGATIVE NEGATIVE Urine Urobilinogen 1 NORMAL MG/DL Urine Leukocyte Esterase 1+ H NEGATIVE Urine RBC (Auto) 1+ H NEGATIVE Urine RBC RARE /HPF Urine WBC 2-5 /HPF Urine Squamous Epithelial Cells 2-5 /HPF Urine Crystals PRESENT H /LPF Urine Calcium Oxalate Crystals FEW H /LPF Urine Bacteria FEW H /HPF Urine Casts NONE /LPF Urine Mucus SMALL H /LPF Urine Culture Indicated YES White Blood Count 10.0 4.3-11.0 10^3/uL Red Blood Count 4.55 4.35-5.85 10^6/uL Hemoglobin 13.4 11.5-16.0 G/DL Hematocrit 39 35-52 % Mean Corpuscular Volume 86 80-99 FL Mean Corpuscular Hemoglobin 30 25-34 PG Mean Corpuscular Hemoglobin Concent 34 32-36 G/DL Red Cell Distribution Width 13.5 10.0-14.5 % Platelet Count 236 130-400 10^3/uL Mean Platelet Volume 11.2 H 7.4-10.4 FL Neutrophils (%) (Auto) 72 42-75 % Lymphocytes (%) (Auto) 18 12-44 % Monocytes (%) (Auto) 7 0-12 % Eosinophils (%) (Auto) 3 0-10 % Basophils (%) (Auto) 1 0-10 % Neutrophils # (Auto) 7.2 1.8-7.8 X 10^3 Lymphocytes # (Auto) 1.8 1.0-4.0 X 10^3 Monocytes # (Auto) 0.7 0.0-1.0 X 10^3 Eosinophils # (Auto) 0.3 0.0-0.3 10^3/uL Basophils # (Auto) 0.1 0.0-0.1 10^3/uL My Orders Orders - ROSA ESTEVEZ EDITOR GREETING CARD Wet Prep (12/21/18 20:43) Neisseria Gonorrhea Swab (12/21/18 20:43) Genital Culture (12/21/18 20:43) Ua Culture If Indicated (12/21/18 20:43) Chlamydia Trachomatis Swab (12/21/18 20:43) Cbc With Automated Diff (12/21/18 20:43) Hcg,Quantitative (12/21/18 20:43) Urine Culture (12/21/18 20:35) Vital Signs/I&O 12/21/18 20:34 Temp 36.1 Pulse 96 Resp 18 B/P (MAP) 117/75 (89) Pulse Ox 100 O2 Delivery Room Air Capillary Refill : Less Than 3 Seconds Blood Pressure Mean: 89 POS Departure Impression Primary Impression: Bacterial vaginosis in Disposition: 01 HOME, SELF-CARE Condition: Stable Departure-Patient Inst. Decision time for Depature: 21:02 Referrals: [facility] (PCP/Family) Primary Care Physician Patient Instructions: Bacterial Vaginosis Add. Discharge Instructions: 1. Your STD results will be back next week 2. Antibiotic as directed meantime, return to ER for any concerns. All discharge instructions reviewed with patient and/or family. Voiced understanding. Scripts Clindamycin HCl (Clindamycin HCl) 300 Mg Capsule 300 MG PO BID, #14 CAP Prov: ROSA ESTEVEZ EDITOR [employer]ETING [employer]ARD 12/21/18 ROSA ESTEVEZ EDITOR [employer] Dec 21, 2018 20:54 POS
[2018-12-21 20:57] LABS: BACTERIA,URINE FEW /HPF; RBC,URINE RARE /HPF
[2018-12-21 20:58] LABS: CALCIUM OXALATE CRYSTALS,UR FEW /LPF
[2018-12-21 21:13] LABS: BASOPHILS # (AUTO) 0.1 10^3/uL (0.0-0.1); BASOPHILS % (AUTO) 1 % (0-10); EOSINOPHILS # (AUTO) 0.3 10^3/uL (0.0-0.3); EOSINOPHILS % (AUTO) 3 % (0-10); HEMATOCRIT 39 % (35-52); HEMOGLOBIN 13.4 G/DL (11.5-16.0); LYMPHOCYTES # (AUTO) 1.8 X 10^3 (1.0-4.0); LYMPHOCYTES % (AUTO) 18 % (12-44); MEAN CORPUSCULAR HEMOGLOBIN 30 PG (25-34); MEAN CORPUSCULAR HGB CONC 34 G/DL (32-36); MEAN CORPUSCULAR VOLUME 86 FL (80-99); MEAN PLATELET VOLUME 11.2 FL (7.4-10.4); MONOCYTES # (AUTO) 0.7 X 10^3 (0.0-1.0); MONOCYTES % (AUTO) 7 % (0-12); NEUTROPHILS # (AUTO) 7.2 X 10^3 (1.8-7.8); NEUTROPHILS % (AUTO) 72 % (42-75); PLATELET COUNT 236 10^3/uL (130-400); RED CELL DISTRIBUTION WIDTH 13.5 % (10.0-14.5)
[2018-12-21] MEDS ORDERED: CLIN300C11 PO (21:19)
[2018-12-21 21:22] VITALS: BP 115/81
--- OUTSIDE RECORDS SUMMARY | 2019-01-14 19:06 | XMS REPORT ---
Author Author JUAN PEREZ POS Organization [facility] SP Address [address] [place] [address] SP Care Team Providers Care Neuropsychology Medical Consultant Name Role Phone POS JUAN PEREZ Unavailable SP PROBLEMS Type Condition ICD9-CM Code [id number] Code Onset Dates Condition S tatus SNOMED POS Problem Irritable bowel syndrome with diarrhea K58.0 Active 928807118 POS Problem Unspecified mood [affective] disorder F39 Active [id number] SP Problem ADHD (attention deficit hyperactivity disorder), combi amparo type F90.2 SP Active 89937406 SP Problem Slow transit constipation K59.01 Acti ve [id number] SP Problem Anxiety disorder, unspecified type F41.9 Active [id number] SP Problem Major depressive disorder, single episode, mild F3 2.0 Active SP ALLERGIES No Information ENCOUNTERS Encounter Location Date Diagnosis POS [facility] [address] [facility] [id number] [address] [place] [phone] SP Nov, SP [facility] [address] [facility] [id number] [address] [place] [phone] SP Nov, SP [facility] [address] [facility] [id number] [address] [place] [address] SP Nov, Vomiting O21.9 and Abdominal pain R10.9 SP [facility] [address] [facility] [id number] [address] [place] [phone] SP Oct, care, subsequent pr egnancy in first trimester Z34.81 and SP6 weeks gestation of Z3A.01 [facility] [address] [facility] [id number] [address] [place] [phone] SP Oct, SP [facility] [address] [facility] [id number] [address] [place] [address] SP Oct, Heat rash L74.0 SP [facility] [address] [facility] [id number] [address] [place] [phone] SP Aug, UTI symptoms R39.9 SP [facility] [address] [facility] [id number] [address] [place] [phone] SP Aug, SP [facility] [address] [facility] [id number] [address] [place] [phone] SP Aug, UTI symptoms R39.9 SP [facility] [address] [facility] [id number] [address] [place] [phone] SP Aug, Hematuria, unspecified type R31.9 SP [facility] [address] [facility] [id number] [address] [place] [address] SP Jul, Sore throat J02.9 ; UTI symp toms R39.9 and Hematuria, SP type R31.9 [place] [address] [facility] [id number] [address] [place] [phone] SP June, Irritable bowel syndrome wit h diarrhea K58.0 and Major depressive SPdisorder, single episode, mild F32.0 [place] [address] [facility] [id number] [address] [place] [phone] SP June, ADHD (attention deficit hype ractivity disorder), combined type SP ; Anxiety disorder, unspecified type F41.9 and Unspecified mood [affective] disorder F39 [facility] [address] [facility] [id number] [address] [place] [phone] SP May, ADHD (attention deficit hype ractivity disorder), combined type SP ; Anxiety disorder, unspecified type F41.9 ; Unspecified mood [affective] disorder F39 and Other longterm (current) 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 Z79.899 [facility] [address] [facility] [id number] [address] [place] [phone] SP May, Slow transit constipation K5 9.01 SP [facility] [address] [facility] [id number] [address] [place] [phone] SP May, ADHD (attention deficit hype ractivity disorder), combined type SP [facility] [address] [facility] [id number] [address] [place] [phone] SP May, SP [facility] [address] [facility] [id number] [address] [place] [phone] SP May, Abdominal pain R10.9 SP [facility] [address] [facility] [id number] [address] [place] [phone] SP Apr, SP [facility] [address] [facility] [id number] [address] [place] [phone] SP Apr, SP [facility] [address] [facility] [id number] [address] [place] [phone] SP Apr, ADHD (attention deficit hype ractivity disorder), combined type SP [facility] [address] [facility] [id number] [address] [place] [phone] SP Apr, Abdominal pain R10.9 SP [facility] [address] [facility] [id number] [address] [place] [phone] SP Apr, SP [facility] [address] [facility] [id number] [address] [place] [phone] SP Mar, SP [facility] [address] [facility] [id number] [address] [place] [phone] SP Mar, ADHD (attention deficit hype ractivity disorder), combined type SP ; Anxiety disorder, unspecified type F41.9 and Unspecified mood [affective] disorder F39 [facility] [address] [facility] [id number] [address] [place] [phone] SP Mar, Viral gastroenteritis A08.4 and Slow transit constipation K59.01 SP [facility] [address] [facility] [id number] [address] [place] [address] SP Mar, Viral gastroenteritis A08.4 SP [facility] [address] [facility] [id number] [address] [place] [phone] SP Mar, ADHD (attention deficit hype ractivity disorder), combined type SP [facility] [address] [facility] [id number] [address] [place] [phone] SP Feb, Slow transit constipation K5 9.01 ; Missed period N92.6 and Nausea SPR11.0 [facility] [address] [facility] [id number] [address] [place] [phone] SP Feb, ADHD (attention deficit hype ractivity disorder), combined type SP [facility] [address] [facility] [id number] [address] [place] [address] SP Jan, Nausea R11.0 and Viral upper respiratory tract infection J06.9 SP [place] [address] [facility] [id number] [place] [phone] SP Jan, SP [facility] [address] [place] [id number] [place] [phone] SP Jan, ADHD (attention deficit hype ractivity disorder), combined type SP ; Anxiety disorder, unspecified type F41.9 and Unspecified mood [affective] disorder F39 [place] [address] [place] [id number] [place] [phone] SP Jan, Well woman exam with routine gynecological exam Z01.419 ; Routine SPscreening for STI (sexually transmitted infection) Z11.3 and Vaginal jose B37.3 [facility] [address] [place] [id number] [address] [place] [phone] SP Dec, SP [facility] [address] [facility] [id number] [address] [place] [phone] SP Dec, SP [facility] [address] [place] [id number] [place] [phone] SP Dec, ADHD (attention deficit hype ractivity disorder), combined type SP ; Anxiety disorder, unspecified type F41.9 and Unspecified mood [affective] disorder F39 [facility] [address] [place] [id number] [address] [place] [phone] SP Dec, Unspecified mood [affective] disorder F39 ; Anxiety disorder, SP type F41.9 and ADHD (attention deficit hyperactivity disorder), combined type F90.2 [facility] [address] [facility] [id number] [address] [place] [address] SP Nov, Other specified bacterial ag ents as the cause of diseases SP elsewhere B96.89 and Otitis media, unspecified, bilateral H66.93 [facility] [address] [id number] [address] [place] [address] SP Nov, Sore throat J02.9 and Acute nasopharyngitis J00 SP [facility] [address] [facility] [id number] [address] [place] [phone] SP Nov, ADHD (attention deficit hype ractivity disorder), combined type SP ; Anxiety disorder, unspecified type F41.9 and Unspecified mood [affective] disorder F39 [facility] [address] [facility] [id number] [address] [place] [phone] SP Oct, ADHD (attention deficit hype ractivity disorder), combined type SP [facility] [address] [facility] [id number] [address] [place] [phone] SP Oct, ADHD (attention deficit hype ractivity disorder), combined type SP ; Anxiety disorder, unspecified type F41.9 and Unspecified mood [affective] disorder F39 [facility] [address] [facility] [id number] [address] [place] [phone] SP Sep, ADHD (attention deficit hype ractivity disorder), combined type SP [facility] [address] [facility] [id number] [address] [place] [phone] SP Sep, SP [facility] [address] [facility] [id number] [address] [place] [phone] SP Aug, ADHD (attention deficit hype ractivity disorder), combined type SP ; Major depressive disorder, single episode, mild F32.0 and Anxiety disorder, unspecified type F41.9 [facility] [address] [facility] [id number] [address] [place] [address] SP Aug, Sore throat J02.9 ; Other sp ecified bacterial agents as the SP of diseases classified elsewhere B96.89 and Acute tonsillitis due to other specified organisms J03.80 [facility] [address] [id number] [address] [place] [phone] SP Aug, ADHD (attention deficit hype ractivity disorder), combined type SP [facility] [address] [id number] [address] [place] [phone] SP Jul, ADHD (attention deficit hype ractivity disorder), combined type SP [facility] [address] [id number] [address] [place] [phone] SP June, ADHD (attention deficit hype ractivity disorder), combined type SP ; Major depressive disorder, single episode, mild F32.0 and Anxiety disorder, unspecified type F41.9 [facility] [address] [id number] [address] [place] [phone] SP June, SP [facility] [address] [id number] [address] [place] [phone] SP June, ADHD (attention deficit hype ractivity disorder), combined type SP [facility] [address] [id number] [address] [place] [phone] SP May, SP [facility] [address] [id number] [address] [place] [phone] SP May, ADHD (attention deficit hype ractivity disorder), combined type SP ; Major depressive disorder, single episode, mild F32.0 and Anxiety disorder, unspecified type F41.9 [facility] [address] [id number] [address] [place] [phone] SP May, Anxiety disorder, unspecifie d type F41.9 SP [facility] [address] [id number] [address] [place] [phone] SP Apr, SP [facility] [address] [facility] [id number] [address] [place] [phone] SP Apr, Anxiety disorder, unspecifie d type F41.9 SP [facility] [address] [facility] [id number] [address] [place] [phone] SP Apr, Anxiety disorder, unspecifie d type F41.9 ; Major depressive SP single episode, mild F32.0 and ADHD (attention deficit hyperactivity disorder), combined type F90.2 [facility] [address] [facility] [id number] [address] [place] [phone] SP Apr, SP [facility] [address] [facility] [id number] [address] [place] [phone] SP Apr, ADHD (attention deficit hype ractivity disorder), combined type SP ; Anxiety state F41.1 ; Depressive disorder, not elsewhere classified F32.9 ; Major depressive disorder, single episode, mild F32.0 and Anxiety disorder, unspecified type F41.9 [place] [id number] [facility] [id number] [address] [place] [phone] SP Mar, ADHD (attention deficit hype ractivity disorder), combined type SP [facility] [address] [facility] [id number] [address] [place] [phone] SP Mar, Nausea R11.0 SP [facility] [address] [facility] [id number] [address] [place] [phone] SP 13 Mar, 2017 Screening for STD sexually t ransmitted disease Z11.3 ; Vaginal SP B37.3 and Irritable bowel syndrome with diarrhea K58.0 [facility] [address] [facility] [id number] [address] [place] [phone] SP Mar, SP [facility] [address] [facility] [id number] [address] [place] [phone] SP Feb, ADHD (attention deficit hype ractivity disorder), combined type SP [facility] [address] [facility] [id number] [address] [place] [phone] SP Feb, Depressive disorder, not els ewhere classified F32.9 ; Anxiety SP F41.1 and ADHD (attention deficit hyperactivity disorder), combined type F90.2 [facility] [address] [facility] [id number] [address] [place] [phone] SP Feb, Depressive disorder, not els ewhere classified F32.9 ; Anxiety SP F41.1 and ADHD (attention deficit hyperactivity disorder), combined type F90.2 [facility] [address] [facility] [id number] [address] [place] [phone] SP Feb, ADHD (attention deficit hype ractivity disorder), combined type SP [facility] [address] [facility] [id number] [address] [place] [address] SP Jan, Other viral agents as the ca use of diseases classified elsewhere SPB97.89 and Acute upper respiratory infection, unspecified J06.9 [place] [address] [facility] [id number] [address] [place] [phone] SP Jan, ADHD (attention deficit hype ractivity disorder), combined type SP ; Major depressive disorder, single episode, mild F32.0 and Anxiety disorder, unspecified type F41.9 [place] [id number] [facility] [id number] [address] [place] [phone] SP Jan, SP [facility] [address] [facility] [id number] [place] [phone] SP Jan, ADHD (attention deficit hype ractivity disorder), combined type SP ; Major depressive disorder, single episode, mild F32.0 and Anxiety disorder, unspecified type F41.9 [facility] [address] [place] [id number] [address] [place] [phone] SP Dec, Irritable bowel syndrome wit h diarrhea K58.0 and Lower abdominal SP R10.30 [place] [address] [facility] [id number] [address] [place] [phone] SP Dec, Hospital discharge follow-up Z09 ; Mesenteric adenitis I88.0 ; SP (inflammatory bowel disease) K52.9 and Nausea R11.0 [place] [address] [place] [id number] [address] [place] [phone] SP Nov, ADHD (attention deficit hype ractivity disorder), combined type SP ; Major depressive disorder, single episode, mild F32.0 and Anxiety disorder, unspecified type F41.9 [place] [address] [facility] [id number] [address] [place] [phone] SP Nov, Anxiety state F41.1 ; ADHD ( attention deficit hyperactivity SP combined type F90.2 ; Major depressive disorder, single episode, mild F32.0 and Anxiety disorder, unspecified type F41.9 [place] [address] [facility] [id number] [address] [place] [phone] SP Oct, Anxiety state F41.1 ; ADHD ( attention deficit hyperactivity SP combined type F90.2 ; Major depressive disorder, single episode, mild F32.0 and Anxiety disorder, unspecified type F41.9 [place] [address] [place] [id number] [address] [place] [phone] SP Oct, ADHD (attention deficit hype ractivity disorder), combined type SP ; Major depressive disorder, single episode, mild F32.0 and Anxiety disorder, unspecified type F41.9 [place] [address] [place] [id number] [place] [phone] SP Oct, Major depressive disorder, s floresita episode, mild F32.0 ; Anxiety SP F41.1 ; ADHD (attention deficit hyperactivity disorder), combined type F90.2 and Depressive disorder, not elsewhere classified F32.9 [facility] [address] [place] [id number] [address] [place] [address] SP 16 Oct, 2016 SP [facility] [address] [facility] [id number] [address] [place] [address] SP 12 Oct, 2016 Cellulitis L03.90 and Planta r wart of right foot B07.0 SP [facility] [address] [facility] [id number] [address] [place] [phone] SP Aug, ADHD (attention deficit hype ractivity disorder), combined type SP ; Major depressive disorder, single episode, mild F32.0 and Anxiety disorder, unspecified type F41.9 [facility] [address] [id number] [address] [place] [phone] SP Aug, SP [facility] [address] [facility] [id number] [address] [place] [phone] SP Jul, ADHD (attention deficit hype ractivity disorder), combined type SP [facility] [address] [facility] [id number] [address] [place] [phone] SP Jul, Mesenteric adenitis I88.0 SP [facility] [address] [id number] [address] [place] [phone] SP June, SP [facility] [address] [facility] [id number] [address] [place] [address] SP June, Lower abdominal pain R10.30 SP [place] [address] [facility] [id number] [address] [place] [phone] SP June, SP [facility] [address] [facility] [id number] [address] [place] [phone] SP June, ADHD (attention deficit hype ractivity disorder), combined type SP and Major depressive disorder, single episode, mild F32.0 [place] [address] [facility] [id number] [address] [place] [phone] SP May, SP [facility] [address] [facility] [id number] [address] [place] [phone] SP May, ADHD (attention deficit hype ractivity disorder), combined type SP and Major depressive disorder, single episode, mild F32.0 [facility] [address] [id number] [address] [place] [address] SP Apr, Abdominal pain R10.9 and Gas troenteritis and colitis, viral SP [facility] [address] [facility] [id number] [address] [place] [phone] SP Apr, SP [facility] [address] [facility] [id number] [address] [place] [address] SP Mar, Acute urticaria L50.8 SP [facility] [address] [id number] [address] [place] [phone] SP Mar, SP [facility] [address] [facility] [id number] [address] [place] [phone] SP Feb, SP [facility] [address] [id number] [address] [place] [address] SP Feb, Gastroenteritis K52.9 SP [facility] [address] [facility] [id number] [address] [place] [phone] SP Feb, Irritant contact dermatitis due to cosmetics L24.3 SP [facility] [address] [id number] [address] [place] [phone] SP Jan, [facility] [address] [facility] [id number] [address] [place] [phone] SP Jan, [facility] [address] [facility] [id number] [address] [place] [phone] SP Jan, ADHD (attention deficit hype ractivity disorder), combined type SP and Major depressive disorder, single episode, mild F32.0 [facility] [address] [id number] [address] [place] [address] SP Dec, Flexural eczema L20.82 [facility] [address] [facility] [id number] [address] [place] [phone] SP Dec, Encounter for test Z32.00 [facility] [address] [id number] [address] [place] [phone] SP Dec, [facility] [address] [facility] [id number] [address] [place] [phone] SP Dec, [facility] [address] [facility] [id number] [address] [place] [phone] SP Dec, [facility] [address] [facility] [id number] [address] [place] [address] SP Nov, Sore throat J02.9 and Pharyn gitis, unspecified etiology J02.9 SP [facility] [address] [id number] [address] [place] [phone] SP Nov, SP [facility] [address] [id number] [address] [place] [phone] SP Nov, SP [facility] [address] [facility] [id number] [address] [place] [phone] SP Nov, Generalized abdominal pain R 10.84 and Slow transit constipation SP [facility] [address] [id number] [place] [address] SP Nov, Pharyngitis, unspecified lara ology J02.9 and Rhinitis, SP type J31.0 [facility] [address] [facility] [id number] [address] [place] [phone] SP Oct, Depressive disorder, not els ewhere classified F32.9 and ADHD SP deficit hyperactivity disorder), combined type F90.2 [facility] [address] [id number] [address] [place] [phone] SP Oct, SP [facility] [address] [id number] [address] [place] [phone] SP Oct, SP [facility] [address] [facility] [id number] [address] [place] [address] SP Oct, Strep throat J02.0 SP [facility] [address] [id number] [address] [place] [phone] SP Oct, SP [facility] [address] [facility] [id number] [address] [place] [phone] SP Oct, Well woman exam with routine gynecological exam Z01.419 and SP for STD sexually transmitted disease Z11.3 [facility] [address] [id number] [address] [place] [phone] SP Sep, ADHD (attention deficit hype ractivity disorder), combined type SP ; Anxiety state F41.1 and Depressive disorder, not elsewhere classified F32.9 [facility] [address] [id number] [address] [place] [phone] SP Sep, ADHD (attention deficit hype ractivity disorder), combined type SP and Depressive disorder, not elsewhere classified F32.9 [facility] [address] [id number] [address] [place] [id number] SP Aug, SP [facility] [address] [id number] [address] [place] [address] SP Aug, ADHD (attention deficit hype ractivity disorder), combined type SP and Depressive disorder, not elsewhere classified F32.9 [facility] [address] [id number] [address] [place] [address] SP Aug, ADHD (attention deficit hype ractivity disorder), combined type SP ; Anxiety state F41.1 and Depressive disorder, not elsewhere classified F32.9 [facility] [address] [id number] [address] [place] [address] SP Aug, SP [facility] [address] [id number] [address] [place] [address] SP Aug, SP [facility] [address] [id number] [address] [place] [address] SP Jul, ADHD (attention deficit hype ractivity disorder), combined type SP ; Depressive disorder, not elsewhere classified F32.9 and Anxiety state F41.1 [facility] [address] [id number] [address] [place] [address] SP Jul, SP [facility] [address] [id number] [address] [place] [address] SP Jul, ADHD (attention deficit hype ractivity disorder), combined type SP ; Anxiety state F41.1 and Depressive disorder, not elsewhere classified F32.9 [facility] [address] [id number] [address] [place] [address] SP June, SP [facility] [address] [id number] [place] [address] SP June, Constipation K59.00 SP [facility] [address] [id number] [address] [place] [address], [place] [address] SP May, 2016 Constipation K59.00 SP [facility] [address] [id number] [address] [place] [address] SP May, 2016 Irritable bowel syndrome wit h diarrhea K58.0 SP [facility] [address] [id number] [address] [place] [address], [place] [address] SP 15 May, 2016 SP [facility] [address] [id number] [address] [place] [phone] SP 15 May, 2015 SP [facility] [address] [id number] [address] [place] [address], [place] [address] SP 14 May, 2014 SP [facility] [address] [id number] [address] [place] [address], [place] [address] SP May, SP [facility] [address] [id number] [address] [place] [phone] SP Jan, SP [facility] [address] [id number] [address] [place] [address], [place] [address] SP Jan, SP [facility] [address] [id number] [address] [place] [address], [place] [address] SP Jan, SP [facility] [address] [facility] [id number] [address] [place] [address] SP Jan, SP [facility] [address] [id number] [address] [place] [phone] SP Jan, SP [facility] [address] [facility] [id number] [address] [place] [address], [place] [address] SP Jan, SP [facility] [address] [facility] [id number] [address] [place] [address] SP Nov, SP [facility] [address] [facility] [id number] [address] [place] [address] SP Nov, SP [facility] [address] [facility] [id number] [address] [place] [address] SP Oct, SP [facility] [address] [id number] [address] [place] [address], [place] [address] SP Oct, SP [facility] [address] [id number] [address] [place] [address], [place] [address] SP Sep, SP [facility] [address] [id number] [address] [place] [address], [place] [address] SP Sep, SP [facility] [address] [id number] [address] [place] [address], [place] [address] SP Aug, SP [facility] [address] [id number] [address] [place] [address], [place] [address] SP Aug, SP [facility] [address] [id number] [address] [place] [address], [place] [address] SP Aug, SP [facility] [address] [id number] [address] [place] [address], [place] [address] SP Aug, SP [facility] [address] [id number] [address] [place] [address], [place] [address] SP Aug, SP [facility] [address] [id number] [address] [place] [address], [place] [address] SP Aug, SP [facility] [address] [id number] [address] [place] [address], [place] [address] SP Aug, SP [facility] [address] [id number] [address] [place] [address], [place] [address] SP Aug, SP [facility] [address] [id number] [address] [place] [address], [place] [address] SP Jul, SP [facility] [address] [id number] [address] [place] [address], [place] [address] SP Jul, SP [facility] [address] [id number] [address] [place] [address], [place] [address] SP Jul, SP [facility] [address] [id number] [address] [place] [address], [place] [address] SP Jul, SP [facility] [address] [id number] [address] [place] [address], [place] [address] SP Jul, SP [facility] [address] [id number] [address] [place] [address], [place] [address] SP Jul, SP [facility] [address] [id number] [address] [place] [address], [place] [address] SP Jul, SP [facility] [address] [id number] [address] [place] [address], [place] [address] SP Jul, SP [facility] [address] [id number] [address] [place] [address], [place] [address] SP Jul, SP [facility] [address] [id number] [address] [place] [address], [place] [address] SP June, SP [facility] [address] [id number] [address] [place] [address], [place] [address] SP June, SP [facility] [address] [id number] [address] [place] [address], [place] [address] SP May, SP [facility] [address] [id number] [address] [place] [address], [place] [address] SP May, SP [facility] [address] [id number] [address] [place] [address], [place] [address] SP May, SP [facility] [address] [id number] [address] [place] [address], [place] [address] SP May, SP [facility] [address] [id number] [address] [place] [address], [place] [address] SP May, SP [facility] [address] [id number] [address] [place] [address], [place] [address] SP May, SP [facility] [address] [id number] [address] [place] [address], [place] [address] SP May, SP [facility] [address] [id number] [address] [place] [address], [place] [address] SP May, SP [facility] [address] [id number] [address] [place] [address], [place] [address] SP May, SP [facility] [address] [id number] [address] [place] [address], [place] [address] SP May, SP [facility] [address] [id number] [address] [place] [address], [place] [address] SP May, SP [facility] [address] [id number] [address] [place] [address], [place] [address] SP May, SP [facility] [address] [id number] [address] [place] [address], [place] [address] SP Apr, SP [facility] [address] [id number] [address] [place] [address], [place] [address] SP Apr, SP [facility] [address] [id number] [address] [place] [address], [place] [address] SP Apr, SP [facility] [address] [id number] [address] [place] [address], [place] [address] SP Apr, SP [facility] [address] [id number] [address] [place] [address], [place] [address] SP Mar, SP [facility] [address] [id number] [address] [place] [address], [place] [address] SP Mar, SP [facility] [address] [id number] [address] [place] [address], [place] [address] SP Mar, SP [facility] [address] [id number] [address] [place] [address], [place] [address] SP Mar, SP [facility] [address] [id number] [address] [place] [address], [place] [address] SP Mar, SP [facility] [address] [id number] [address] [place] [address], [place] [address] SP 27 Mar, 2013 SP [facility] [address] [id number] [address] [place] [address], [place] [address] SP 19 Mar, 2013 SP [facility] [address] [id number] [address] [place] [address] SP 19 Mar, 2013 SP [facility] [address] [id number] [address] [place] [address] SP 19 Mar, 2013 SP [facility] [address] [id number] [address] [place] [address] SP 19 Mar, 2013 SP [facility] [address] [id number] [address] [place] [address], [place] [address] SP 14 Mar, 2013 SP [facility] [address] [facility] [id number] [address] [place] [address] SP 14 Mar, 2013 SP [facility] [address] [id number] [address] [place] [address] SP 13 Mar, 2013 SP [facility] [address] [id number] [address] [place] [address] SP 13 Mar, 2013 SP [facility] [address] [id number] [address] [place] [address] SP 11 Mar, 2013 SP [facility] [address] [facility] [id number] [address] [place] [address] SP Mar, 2013 SP [facility] [address] [id number] [address] [place] [address] SP Mar, 2013 SP [facility] [address] [id number] [address] [place] [address] SP Mar, 2013 SP [facility] [address] [facility] [id number] [address] [place] [address] SP Mar, 2013 SP [facility] [address] [facility] [id number] [address] [place] [address] SP Mar, SP [facility] [address] [id number] [facility] [place] [address] SP Feb, SP [facility] [address] [id number] [address] [place] [address], [place] [address] SP Feb, SP [facility] [address] [id number] [address] [place] [address], [place] [address] SP Feb, SP [facility] [address] [id number] [address] [place] [address], [place] [address] SP Feb, SP [facility] [address] [id number] [address] [place] [address], [place] [address] SP Feb, SP [facility] [address] [id number] [address] [place] [address], [place] [address] SP Feb, SP [facility] [address] [id number] [address] [place] [address], [place] [address] SP Feb, SP [facility] [address] [id number] [address] [place] [address], [place] [address] SP Feb, SP [facility] [address] [id number] [address] [place] [address], [place] [address] SP Feb, SP [facility] [address] [id number] [address] [place] [address], [place] [address] SP Feb, SP [facility] [address] [id number] [address] [place] [address], [place] [address] SP Feb, SP [facility] [address] [id number] [address] [place] [address], [place] [address] SP Feb, SP [facility] [address] [id number] [address] [place] [address], [place] [address] SP Feb, SP [facility] [address] [id number] [address] [place] [address], [place] [address] SP Feb, SP [facility] [address] [id number] [address] [place] [address], [place] [address] SP 16 Feb, 2013 SP [facility] [address] [id number] [address] [place] [address], [place] [address] SP Feb, SP [facility] [address] [id number] [address] [place] [address], [place] [address] SP Feb, SP [facility] [address] [id number] [address] [place] [address], [place] [address] SP Feb, SP [facility] [address] [id number] [address] [place] [address], [place] [address] SP Feb, SP [facility] [address] [id number] [address] [place] [address], [place] [address] SP Feb, SP [facility] [address] [id number] [address] [place] [address], [place] [address] SP Feb, SP [facility] [address] [id number] [address] [place] [address], [place] [address] SP Feb, SP [facility] [address] [id number] [address] [place] [address], [place] [address] SP Feb, SP [facility] [address] [id number] [address] [place] [address], [place] [address] SP Jan, SP [facility] [address] [id number] [address] [place] [address], [place] [address] SP Jan, SP [facility] [address] [id number] [address] [place] [address], [place] [address] SP Jan, SP [facility] [address] [id number] [address] [place] [address], [place] [address] SP Jan, SP [facility] [address] [id number] [address] [place] [address], [place] [address] SP Jan, SP [facility] [address] [id number] [address] [place] [address], [place] [address] SP Jan, SP [facility] [address] [id number] [address] [place] [address], [place] [address] SP 18 Jan, 2012 SP [facility] [address] [id number] [address] [place] [address], [place] [address] SP Jan, SP [facility] [address] [id number] [address] [place] [address], [place] [address] SP 17 Jan, 2012 SP [facility] [address] [id number] [address] [place] [address], [place] [address] SP Jan, SP [facility] [address] [id number] [address] [place] [address], [place] [address] SP Jan, SP [facility] [address] [id number] [address] [place] [address], [place] [address] SP Jan, SP [facility] [address] [id number] [address] [place] [address], [place] [address] SP Jan, SP [facility] [address] [id number] [address] [place] [address], [place] [address] SP Dec, 2012 SP [facility] [address] [id number] [address] [place] [address], [place] [address] SP 20 Dec, 2012 SP [facility] [address] [id number] [address] [place] [address], [place] [address] SP 20 Dec, 2012 SP [facility] [address] [id number] [address] [place] [address], [place] [address] SP 20 Dec, 2012 SP [facility] [address] [id number] [address] [place] [address], [place] [address] SP 15 Dec, 2012 SP [facility] [address] [id number] [address] [place] [address], [place] [address] SP 15 Dec, 2012 SP [facility] [address] [id number] [address] [place] [address], [place] [address] SP Nov, SP [facility] [address] [id number] [address] [place] [address], [place] [address] SP Nov, SP [facility] [address] [id number] [address] [place] [address] SP Nov, 2012 SP [facility] [address] [id number] [address] [place] [address] SP Nov, SP [facility] [address] [facility] [id number] [address] [place] [address] SP Nov, SP [facility] [address] [id number] [address] [place] [address] SP Nov, SP [facility] [address] [id number] [address] [place] [address] SP Oct, 2012 SP [facility] [address] [facility] [id number] [address] [place] [address] SP Oct, 2012 SP [facility] [address] [facility] [id number] [address] [place] [address] SP Oct, 2012 SP [facility] [address] [id number] [address] [place] [address] SP Oct, 2012 SP [facility] [address] [facility] [id number] [address] [place] [address] SP Oct, 2012 SP [facility] [address] [facility] [id number] [address] [place] [address] SP 18 Oct, 2012 SP [facility] [address] [facility] [id number] [address] [place] [address] SP 13 Oct, 2012 SP IMMUNIZATIONS No Known Immunizations SOCIAL HISTORY Never Assessed REASON FOR VISIT PLAN OF CARE VITAL SIGNS MEDICATIONS Unknown Medications RESULTS No Results PROCEDURES No Known procedures INSTRUCTIONS MEDICATIONS ADMINISTERED No Known Medications MEDICAL (GENERAL) HISTORY Type Description Date POS Medical History IBS SP Medical History ADHD SP Medical History hx ovarian cysts SP Medical History Depression SP Medical History Anxiety SP Medical History Mood disorder SP Surgical History Colonoscopy 2014 SP Surgical History Hernia Repair at 3 months old SP Hospitalization History Childbirth 2013 SP Hospitalization History IBS 2015 SP Hospitalization History 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
--- OUTSIDE RECORDS SUMMARY | 2019-01-14 19:06 | XMS REPORT ---
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 Name Role Phone POS Migration, Doctor Unavailable Unavailable SP PROBLEMS Type Condition ICD9-CM Code [id number] Code Onset Dates Condition S tatus SNOMED POS Problem Irritable bowel syndrome with diarrhea K58.0 Active [id number] POS Problem Unspecified mood [affective] disorder F39 Active [id number] SP Problem ADHD (attention deficit hyperactivity disorder), combi amparo type F90.2 SP Active 48752469 SP Problem Slow transit constipation K59.01 Acti ve 48011438 SP Problem Anxiety disorder, unspecified type F41.9 Active 204111208 SP Problem Major depressive disorder, single episode, mild F3 2.0 Active SP ALLERGIES No Information ENCOUNTERS Encounter Location Date Diagnosis POS [facility] [id number] [address] [place] [phone] SP Nov, SP [facility] [address] [id number] [address] [place] [phone] SP Nov, SP [facility] [id number] [address] [place] [address] SP Nov, Vomiting O21.9 and Abdominal pain R10.9 SP [facility] [id number] [address] [place] [phone] SP Oct, care, subsequent pr egnancy in first trimester Z34.81 and SP6 weeks gestation of Z3A.01 [facility] [id number] [address] [place] [phone] SP Oct, SP [facility] [address] [facility] [id number] [address] [place] [address] SP Oct, Heat rash L74.0 SP [facility] [id number] [address] [place] [phone] SP Aug, UTI symptoms R39.9 SP [facility] [address] [facility] [id number] [address] [place] [phone] SP Aug, SP [facility] [address] [facility] [id number] [address] [place] [phone] SP Aug, UTI symptoms R39.9 SP [facility] [address] [facility] [id number] [address] [place] [phone] SP Aug, Hematuria, unspecified type R31.9 SP [facility] [address] [facility] [id number] [address] [place] [address] SP Jul, Sore throat J02.9 ; UTI symp toms R39.9 and Hematuria, SP type R31.9 [facility] [address] [facility] [id number] [address] [place] [phone] SP June, Irritable bowel syndrome wit h diarrhea K58.0 and Major depressive SPdisorder, single episode, mild F32.0 [facility] [address] [facility] [id number] [address] [place] [phone] SP June, ADHD (attention deficit hype ractivity disorder), combined type SP ; Anxiety disorder, unspecified type F41.9 and Unspecified mood [affective] disorder F39 [facility] [address] [facility] [id number] [address] [place] [phone] SP May, ADHD (attention deficit hype ractivity disorder), combined type SP ; Anxiety disorder, unspecified type F41.9 ; Unspecified mood [affective] disorder F39 and Other penitentiary (current) 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 Z79.899 [facility] [address] [facility] [id number] [address] [place] [phone] SP May, Slow transit constipation K5 9.01 SP [facility] [address] [facility] [id number] [address] [place] [phone] SP May, ADHD (attention deficit hype ractivity disorder), combined type SP [facility] [address] [facility] [id number] [address] [place] [phone] SP May, SP [facility] [address] [facility] [id number] [address] [place] [phone] SP May, Abdominal pain R10.9 SP [facility] [address] [facility] [id number] [address] [place] [phone] SP Apr, SP [facility] [address] [facility] [id number] [address] [place] [phone] SP Apr, SP [facility] [address] [facility] [id number] [address] [place] [phone] SP Apr, ADHD (attention deficit hype ractivity disorder), combined type SP [facility] [address] [facility] [id number] [address] [place] [phone] SP Apr, Abdominal pain R10.9 SP [facility] [address] [facility] [id number] [address] [place] [phone] SP Apr, SP [facility] [address] [facility] [id number] [address] [place] [phone] SP Mar, SP [facility] [id number] [place] [phone] SP Mar, ADHD (attention deficit hype ractivity disorder), combined type SP ; Anxiety disorder, unspecified type F41.9 and Unspecified mood [affective] disorder F39 [facility] [address] [facility] [id number] [address] [place] [phone] SP Mar, Viral gastroenteritis A08.4 and Slow transit constipation K59.01 SP [facility] [address] [facility] [id number] [address] [place] [address] SP Mar, Viral gastroenteritis A08.4 SP [facility] [address] [facility] [id number] [address] [place] [phone] SP Mar, ADHD (attention deficit hype ractivity disorder), combined type SP [facility] [address] [facility] [id number] [address] [place] [phone] SP Feb, Slow transit constipation K5 9.01 ; Missed period N92.6 and Nausea SPR11.0 [address] [facility] [id number] [address] [place] [phone] SP Feb, ADHD (attention deficit hype ractivity disorder), combined type SP [facility] [address] [facility] [id number] [address] [place] [address] SP Jan, Nausea R11.0 and Viral upper respiratory tract infection J06.9 SP [address] [facility] [id number] [address] [place] [phone] SP Jan, SP [address] [facility] [id number] [address] [place] [phone] SP Jan, ADHD (attention deficit hype ractivity disorder), combined type SP ; Anxiety disorder, unspecified type F41.9 and Unspecified mood [affective] disorder F39 [address] [id number] [place] [phone] SP Jan, Well woman exam with routine gynecological exam Z01.419 ; Routine SPscreening for STI (sexually transmitted infection) Z11.3 and Vaginal jose B37.3 [address] [facility] [id number] [address] [place] [phone] SP Dec, SP [address] [id number] [place] [phone] SP Dec, SP [facility] [address] [facility] [id number] [address] [place] [phone] SP Dec, ADHD (attention deficit hype ractivity disorder), combined type SP ; Anxiety disorder, unspecified type F41.9 and Unspecified mood [affective] disorder F39 [address] [address] [facility] [id number] [address] [place] [phone] SP Dec, Unspecified mood [affective] disorder F39 ; Anxiety disorder, SP type F41.9 and ADHD (attention deficit hyperactivity disorder), combined type F90.2 [facility] [address] [id number] [address] [place] [address] SP Nov, Other specified bacterial ag ents as the cause of diseases SP elsewhere B96.89 and Otitis media, unspecified, bilateral H66.93 [facility] [address] [id number] [address] [place] [address] SP Nov, Sore throat J02.9 and Acute nasopharyngitis J00 SP [facility] [address] [id number] [address] [place] [phone] SP Nov, ADHD (attention deficit hype ractivity disorder), combined type SP ; Anxiety disorder, unspecified type F41.9 and Unspecified mood [affective] disorder F39 [facility] [address] [facility] [id number] [address] [place] [phone] SP Oct, ADHD (attention deficit hype ractivity disorder), combined type SP [facility] [address] [id number] [address] [place] [phone] SP Oct, ADHD (attention deficit hype ractivity disorder), combined type SP ; Anxiety disorder, unspecified type F41.9 and Unspecified mood [affective] disorder F39 [facility] [address] [id number] [address] [place] [phone] SP Sep, ADHD (attention deficit hype ractivity disorder), combined type SP [facility] [address] [id number] [address] [place] [phone] SP Sep, SP [facility] [address] [id number] [address] [place] [phone] SP Aug, ADHD (attention deficit hype ractivity disorder), combined type SP ; Major depressive disorder, single episode, mild F32.0 and Anxiety disorder, unspecified type F41.9 [facility] [address] [id number] [address] [place] [address] SP Aug, Sore throat J02.9 ; Other sp ecified bacterial agents as the SP of diseases classified elsewhere B96.89 and Acute tonsillitis due to other specified organisms J03.80 [facility] [address] [id number] [address] [place] [phone] SP Aug, ADHD (attention deficit hype ractivity disorder), combined type SP [facility] [address] [facility] [id number] [address] [place] [phone] SP Jul, ADHD (attention deficit hype ractivity disorder), combined type SP [facility] [address] [facility] [id number] [address] [place] [phone] SP June, ADHD (attention deficit hype ractivity disorder), combined type SP ; Major depressive disorder, single episode, mild F32.0 and Anxiety disorder, unspecified type F41.9 [facility] [address] [facility] [id number] [address] [place] [phone] SP June, SP [facility] [address] [facility] [id number] [address] [place] [phone] SP June, ADHD (attention deficit hype ractivity disorder), combined type SP [facility] [address] [facility] [id number] [address] [place] [phone] SP May, SP [facility] [address] [facility] [id number] [address] [place] [phone] SP May, ADHD (attention deficit hype ractivity disorder), combined type SP ; Major depressive disorder, single episode, mild F32.0 and Anxiety disorder, unspecified type F41.9 [facility] [address] [facility] [id number] [address] [place] [phone] SP May, Anxiety disorder, unspecifie d type F41.9 SP [facility] [address] [facility] [id number] [address] [place] [phone] SP Apr, SP [facility] [address] [facility] [id number] [address] [place] [phone] SP Apr, Anxiety disorder, unspecifie d type F41.9 SP [facility] [address] [facility] [id number] [address] [place] [phone] SP Apr, Anxiety disorder, unspecifie d type F41.9 ; Major depressive SP single episode, mild F32.0 and ADHD (attention deficit hyperactivity disorder), combined type F90.2 [facility] [id number] [address] [place] [phone] SP Apr, SP [facility] [id number] [place] [phone] SP Apr, ADHD (attention deficit hype ractivity disorder), combined type SP ; Anxiety state F41.1 ; Depressive disorder, not elsewhere classified F32.9 ; Major depressive disorder, single episode, mild F32.0 and Anxiety disorder, unspecified type F41.9 [id number] [place] [phone] SP Mar, ADHD (attention deficit hype ractivity disorder), combined type SP [facility] [id number] [place] [phone] SP Mar, Nausea R11.0 SP [id number] [place] [phone] SP Mar, Screening for STD sexually t ransmitted disease Z11.3 ; Vaginal SP B37.3 and Irritable bowel syndrome with diarrhea K58.0 [id number] [place] [phone] SP Mar, SP [facility] [address] [facility] [id number] [address] [place] [phone] SP Feb, ADHD (attention deficit hype ractivity disorder), combined type SP [facility] [address] [facility] [id number] [address] [place] [phone] SP Feb, Depressive disorder, not els ewhere classified F32.9 ; Anxiety SP F41.1 and ADHD (attention deficit hyperactivity disorder), combined type F90.2 [id number] [place] [phone] SP Feb, Depressive disorder, not els ewhere classified F32.9 ; Anxiety SP F41.1 and ADHD (attention deficit hyperactivity disorder), combined type F90.2 [facility] [address] [facility] [id number] [address] [place] [phone] SP Feb, ADHD (attention deficit hype ractivity disorder), combined type SP [facility] [address] [facility] [id number] [address] [place] [address] SP Jan, Other viral agents as the ca use of diseases classified elsewhere SPB97.89 and Acute upper respiratory infection, unspecified J06.9 [address] [id number] [place] [phone] SP Jan, ADHD (attention deficit hype ractivity disorder), combined type SP ; Major depressive disorder, single episode, mild F32.0 and Anxiety disorder, unspecified type F41.9 [address] [id number] [place] [phone] SP Jan, SP [facility] [address] [facility] [id number] [address] [place] [phone] SP Jan, ADHD (attention deficit hype ractivity disorder), combined type SP ; Major depressive disorder, single episode, mild F32.0 and Anxiety disorder, unspecified type F41.9 [facility] [id number] [place] [phone] SP Dec, Irritable bowel syndrome wit h diarrhea K58.0 and Lower abdominal SP R10.30 [place] [address] [facility] [id number] [address] [place] [phone] SP Dec, Hospital discharge follow-up Z09 ; Mesenteric adenitis I88.0 ; SP (inflammatory bowel disease) K52.9 and Nausea R11.0 [place] [address] [facility] [id number] [address] [place] [phone] SP Nov, ADHD (attention deficit hype ractivity disorder), combined type SP ; Major depressive disorder, single episode, mild F32.0 and Anxiety disorder, unspecified type F41.9 [place] [address] [facility] [id number] [place] [phone] SP Nov, Anxiety state F41.1 ; ADHD ( attention deficit hyperactivity SP combined type F90.2 ; Major depressive disorder, single episode, mild F32.0 and Anxiety disorder, unspecified type F41.9 [place] [id number] [place] [phone] SP Oct, Anxiety state F41.1 ; ADHD ( attention deficit hyperactivity SP combined type F90.2 ; Major depressive disorder, single episode, mild F32.0 and Anxiety disorder, unspecified type F41.9 [place] [id number] [place] [phone] SP Oct, ADHD (attention deficit hype ractivity disorder), combined type SP ; Major depressive disorder, single episode, mild F32.0 and Anxiety disorder, unspecified type F41.9 [place] [id number] [place] [phone] SP Oct, Major depressive disorder, s floresita episode, mild F32.0 ; Anxiety SP F41.1 ; ADHD (attention deficit hyperactivity disorder), combined type F90.2 and Depressive disorder, not elsewhere classified F32.9 [facility] [id number] [place] [address] SP 16 Oct, 2016 SP [facility] [id number] [place] [address] SP Oct, Cellulitis L03.90 and Planta r wart of right foot B07.0 SP [place] [id number] [place] [phone] SP Aug, ADHD (attention deficit hype ractivity disorder), combined type SP ; Major depressive disorder, single episode, mild F32.0 and Anxiety disorder, unspecified type F41.9 [place] [address] [id number] [place] [phone] SP Aug, SP [facility] [address] [id number] [address] [place] [phone] SP Jul, ADHD (attention deficit hype ractivity disorder), combined type SP [facility] [address] [id number] [address] [place] [phone] SP Jul, Mesenteric adenitis I88.0 SP [facility] [address] [facility] [id number] [address] [place] [phone] SP June, SP [facility] [address] [id number] [address] [place] [address] SP June, Lower abdominal pain R10.30 SP [facility] [address] [facility] [id number] [address] [place] [phone] SP June, SP [facility] [address] [facility] [id number] [address] [place] [phone] SP June, ADHD (attention deficit hype ractivity disorder), combined type SP and Major depressive disorder, single episode, mild F32.0 [facility] [address] [facility] [id number] [address] [place] [phone] SP May, SP [facility] [address] [facility] [id number] [address] [place] [phone] SP May, ADHD (attention deficit hype ractivity disorder), combined type SP and Major depressive disorder, single episode, mild F32.0 [facility] [address] [facility] [id number] [address] [place] [address] SP Apr, Abdominal pain R10.9 and Gas troenteritis and colitis, viral SP [facility] [address] [id number] [address] [place] [phone] SP Apr, SP [facility] [address] [facility] [id number] [address] [place] [address] SP Mar, Acute urticaria L50.8 SP [facility] [address] [facility] [id number] [address] [place] [phone] SP Mar, SP [facility] [address] [facility] [id number] [address] [place] [phone] SP Feb, SP [facility] [address] [facility] [id number] [address] [place] [address] SP Feb, Gastroenteritis K52.9 SP [facility] [address] [facility] [id number] [address] [place] [phone] SP Feb, Irritant contact dermatitis due to cosmetics L24.3 SP [facility] [address] [facility] [id number] [address] [place] [phone] SP Jan, [facility] [address] [facility] [id number] [place] [phone] SP Jan, [facility] [address] [facility] [id number] [address] [place] [phone] SP Jan, ADHD (attention deficit hype ractivity disorder), combined type SP and Major depressive disorder, single episode, mild F32.0 [facility] [address] [facility] [id number] [address] [place] [address] SP Dec, Flexural eczema L20.82 [facility] [address] [facility] [id number] [place] [phone] SP Dec, Encounter for test Z32.00 [facility] [address] [facility] [id number] [address] [place] [phone] SP Dec, SP [facility] [address] [facility] [id number] [address] [place] [phone] SP Dec, SP [facility] [address] [facility] [id number] [address] [place] [phone] SP Dec, SP [facility] [address] [facility] [id number] [address] [place] [address] SP Nov, Sore throat J02.9 and Pharyn gitis, unspecified etiology J02.9 [facility] [address] [facility] [id number] [address] [place] [phone] SP Nov, SP [facility] [address] [id number] [address] [place] [phone] SP Nov, SP [facility] [address] [id number] [address] [place] [phone] SP Nov, Generalized abdominal pain R 10.84 and Slow transit constipation SP [facility] [address] [id number] [place] [address] SP Nov, Pharyngitis, unspecified lara ology J02.9 and Rhinitis, SP type J31.0 [facility] [address] [id number] [address] [place] [phone] SP Oct, Depressive disorder, not els ewhere classified F32.9 and ADHD SP deficit hyperactivity disorder), combined type F90.2 [facility] [address] [id number] [address] [place] [phone] SP Oct, SP [facility] [address] [id number] [address] [place] [phone] SP Oct, SP [facility] IN [facility] [address] [id number] [address] [place] [address] SP Oct, Strep throat J02.0 SP [facility] [address] [id number] [address] [place] [phone] SP Oct, SP [facility] [address] [id number] [address] [place] [phone] SP Oct, 2016 Well woman exam with routine gynecological exam Z01.419 and SP for STD sexually transmitted disease Z11.3 [facility] [address] [id number] [address] [place] [id number] SP Sep, ADHD (attention deficit hype ractivity disorder), combined type SP ; Anxiety state F41.1 and Depressive disorder, not elsewhere classified F32.9 [facility] [address] [id number] [address] [place] [id number] SP Sep, ADHD (attention deficit hype ractivity disorder), combined type SP and Depressive disorder, not elsewhere classified F32.9 [facility] [address] [id number] [address] [place] [address] SP Aug, SP [facility] [address] [id number] [address] [place] [id number] SP Aug, ADHD (attention deficit hype ractivity disorder), combined type SP and Depressive disorder, not elsewhere classified F32.9 [facility] [address] [id number] [address] [place] [id number] SP Aug, ADHD (attention deficit hype ractivity disorder), combined type SP ; Anxiety state F41.1 and Depressive disorder, not elsewhere classified F32.9 [facility] [address] [id number] [address] [place] [id number] SP Aug, SP [facility] [address] [id number] [address] [place] [address] SP Aug, SP [facility] [address] [id number] [address] [place] [id number] SP Jul, ADHD (attention deficit hype ractivity disorder), combined type SP ; Depressive disorder, not elsewhere classified F32.9 and Anxiety state F41.1 [facility] [address] [id number] [address] [place] [phone] SP Jul, SP [facility] [address] [id number] [address] [place] [phone] SP Jul, ADHD (attention deficit hype ractivity disorder), combined type SP ; Anxiety state F41.1 and Depressive disorder, not elsewhere classified F32.9 [facility] [address] [id number] [address] [place] [phone] SP June, SP [facility] [address] [id number] [place] [address] SP June, Constipation K59.00 SP [facility] [address] [id number] [address] [place] [id number] SP 28 Apr, 2016 Constipation K59.00 SP [facility] [address] [id number] [address] [place] [address] SP May, 2016 Irritable bowel syndrome wit h diarrhea K58.0 SP [facility] [address] [id number] [address] [place] [phone] SP 15 May, 2015 SP [facility] [address] [id number] [address] [place] [phone] SP 15 May, 2015 SP [facility] [address] [id number] [address] [place] [id number] SP 14 May, 2014 SP [facility] [address] [id number] [address] [place] [phone] SP 13 May, 2014 SP [facility] [address] [id number] [address] [place] [phone] SP Jan, SP [facility] [address] [id number] [address] [place] [phone] SP Jan, SP [facility] [address] [id number] [address] [place] [id number] SP Jan, SP [facility] [address] [id number] [address] [place] [phone] SP Jan, SP [facility] [address] [id number] [address] [place] [phone] SP Jan, SP [facility] [address] [id number] [address] [place] [phone] SP Jan, SP [facility] [address] [id number] [address] [place] [phone] SP Nov, SP [facility] [address] [id number] [address] [place] [phone] SP Nov, SP [facility] [address] [id number] [address] [place] [phone] SP Oct, SP [facility] [address] [id number] [address] [place] [address], [place] [address] SP Oct, SP [facility] [address] [id number] [address] [place] [address], [place] [address] SP Sep, SP [facility] [address] [id number] [address] [place] [address], [place] [address] SP Sep, SP [facility] [address] [id number] [address] [place] [address], [place] [address] SP Aug, SP [facility] [address] [id number] [address] [place] [address], [place] [address] SP Aug, SP [facility] [address] [id number] [address] [place] [address], [place] [address] SP Aug, SP [facility] [address] [id number] [address] [place] [address], [place] [address] SP Aug, SP [facility] [address] [id number] [address] [place] [address], [place] [address] SP Aug, SP [facility] [address] [id number] [address] [place] [address], [place] [address] SP Aug, SP [facility] [address] [id number] [address] [place] [address], [place] [address] SP Aug, SP [facility] [address] [id number] [address] [place] [address], [place] [address] SP Aug, SP [facility] [address] [id number] [address] [place] [address], [place] [address] SP Jul, SP [facility] [address] [id number] [address] [place] [address], [place] [address] SP Jul, SP [facility] [address] [id number] [address] [place] [address], [place] [address] SP Jul, SP [facility] [address] [id number] [address] [place] [address], [place] [address] SP Jul, SP [facility] [address] [id number] [facility] [place] [address] SP Jul, SP [facility] [address] [id number] [facility] [place] [address] SP Jul, SP [facility] [address] [id number] [facility] [place] [address] SP Jul, SP [facility] [address] [id number] [address] [place] [address], [place] [address] SP Jul, SP [facility] [address] [id number] [address] [place] [address], [place] [address] SP Jul, SP [facility] [address] [id number] [address] [place] [address], [place] [address] SP June, SP [facility] [address] [id number] [address] [place] [address], [place] [address] SP June, SP [facility] [address] [id number] [address] [place] [address], [place] [address] SP May, SP [facility] [address] [id number] [address] [place] [address], [place] [address] SP May, SP [facility] [address] [id number] [address] [place] [address], [place] [address] SP May, SP [facility] [address] [id number] [address] [place] [address], [place] [address] SP May, SP [facility] [address] [id number] [address] [place] [address], [place] [address] SP May, SP [facility] [address] [id number] [address] [place] [address], [place] [address] SP May, SP [facility] [address] [id number] [address] [place] [address], [place] [address] SP May, SP [facility] [address] [id number] [address] [place] [address], [place] [address] SP 14 May, 2013 SP [facility] [address] [id number] [facility] [place] [address] SP May, SP [facility] [address] [id number] [address] [place] [address], [place] [address] SP May, SP [facility] [address] [id number] [address] [place] [address], [place] [address] SP May, SP [facility] [address] [id number] [address] [place] [address], [place] [address] SP May, SP [facility] [address] [id number] [address] [place] [address], [place] [address] SP Apr, SP [facility] [address] [id number] [address] [place] [address], [place] [address] SP Apr, SP [facility] [address] [id number] [address] [place] [address], [place] [address] SP Apr, SP [facility] [address] [id number] [address] [place] [address], [place] [address] SP Apr, SP [facility] [address] [id number] [address] [place] [address], [place] [address] SP Mar, SP [facility] [address] [id number] [address] [place] [address], [place] [address] SP Mar, SP [facility] [address] [id number] [address] [place] [address], [place] [address] SP Mar, SP [facility] [address] [id number] [address] [place] [address], [place] [address] SP Mar, SP [facility] [address] [id number] [address] [place] [address], [place] [address] SP Mar, SP [facility] [address] [id number] [address] [place] [address], [place] [address] SP Mar, SP [facility] [address] [id number] [address] [place] [address], [place] [address] SP 19 Mar, 2013 SP [facility] [address] [id number] [address] [place] [address], [place] [address] SP Mar, 2013 SP [facility] [address] [id number] [address] [place] [address], [place] [address] SP Mar, 2013 SP [facility] [address] [id number] [address] [place] [address], [place] [address] SP Mar, 2013 SP [facility] [address] [id number] [address] [place] [address], [place] [address] SP 14 Mar, 2013 SP [facility] [address] [id number] [address] [place] [address], [place] [address] SP Mar, 2013 SP [facility] [address] [id number] [address] [place] [address], [place] [address] SP 13 Mar, 2013 SP [facility] [address] [id number] [address] [place] [address], [place] [address] SP Mar, 2013 SP [facility] [address] [id number] [address] [place] [address], [place] [address] SP Mar, 2013 SP [facility] [address] [facility] [id number] [address] [place] [address], [place] [address] SP Mar, 2013 SP [facility] [address] [id number] [address] [place] [address], [place] [address] SP Mar, 2013 SP [facility] [address] [id number] [address] [place] [address], [place] [address] SP Mar, SP [facility] [address] [id number] [address] [place] [address], [place] [address] SP Mar, SP [facility] [address] [facility] [id number] [address] [place] [address] SP Mar, 2013 SP [facility] [address] [facility] [id number] [address] [place] [address], [place] [address] SP Feb, SP [facility] [address] [id number] [address] [place] [address], [place] [address] SP Feb, SP [facility] [address] [id number] [address] [place] [address], [place] [address] SP Feb, SP [facility] [address] [id number] [address] [place] [address], [place] [address] SP Feb, SP [facility] [address] [id number] [address] [place] [address], [place] [address] SP Feb, SP [facility] [address] [id number] [address] [place] [address], [place] [address] SP Feb, SP [facility] [address] [id number] [address] [place] [address], [place] [address] SP Feb, SP [facility] [address] [id number] [address] [place] [address], [place] [address] SP Feb, SP [facility] [address] [id number] [address] [place] [address], [place] [address] SP Feb, SP [facility] [address] [id number] [address] [place] [address], [place] [address] SP Feb, SP [facility] [address] [id number] [address] [place] [address], [place] [address] SP Feb, SP [facility] [address] [id number] [address] [place] [address], [place] [address] SP Feb, SP [facility] [address] [id number] [address] [place] [address], [place] [address] SP Feb, SP [facility] [address] [id number] [address] [place] [address], [place] [address] SP Feb, SP [facility] [address] [id number] [address] [place] [address], [place] [address] SP Feb, SP [facility] [address] [id number] [address] [place] [address], [place] [address] SP Feb, SP [facility] [address] [id number] [address] [place] [address], [place] [address] SP Feb, SP [facility] [address] [id number] [address] [place] [address], [place] [address] SP Feb, SP [facility] [address] [id number] [address] [place] [address], [place] [address] SP Feb, SP [facility] [address] [id number] [address] [place] [address], [place] [address] SP Feb, SP [facility] [address] [id number] [address] [place] [address], [place] [address] SP Feb, SP [facility] [address] [id number] [address] [place] [address], [place] [address] SP Feb, SP [facility] [address] [id number] [address] [place] [address], [place] [address] SP Feb, SP [facility] [address] [id number] [address] [place] [address], [place] [address] SP Jan, SP [facility] [address] [id number] [address] [place] [address], [place] [address] SP Jan, SP [facility] [address] [id number] [address] [place] [address], [place] [address] SP Jan, SP [facility] [address] [id number] [address] [place] [address], [place] [address] SP Jan, SP [facility] [address] [id number] [address] [place] [address], [place] [address] SP Jan, SP [facility] [address] [id number] [address] [place] [address], [place] [address] SP Jan, SP [facility] [address] [id number] [address] [place] [address], [place] [address] SP Jan, SP [facility] [address] [id number] [address] [place] [address], [place] [address] SP Jan, SP [facility] [address] [id number] [address] [place] [address], [place] [address] SP Jan, SP [facility] [address] [id number] [address] [place] [address], [place] [address] SP Jan, 2012 SP [facility] [address] [id number] [address] [place] [address], [place] [address] SP Jan, SP [facility] [address] [id number] [address] [place] [address], [place] [address] SP Jan, SP [facility] [address] [id number] [address] [place] [address], [place] [address] SP Jan, SP [facility] [address] [id number] [address] [place] [address], [place] [address] SP Dec, 2012 SP [facility] [address] [id number] [address] [place] [address], [place] [address] SP Dec, 2012 SP [facility] [address] [id number] [address] [place] [address], [place] [address] SP Dec, 2012 SP [facility] [address] [id number] [address] [place] [address], [place] [address] SP 20 Dec, 2012 SP [facility] [address] [id number] [address] [place] [address], [place] [address] SP 15 Dec, 2012 SP [facility] [address] [id number] [address] [place] [address], [place] [address] SP Dec, 2012 SP [facility] [address] [id number] [address] [place] [address], [place] [address] SP Nov, SP [facility] [address] [id number] [address] [place] [address], [place] [address] SP Nov, SP [facility] [address] [id number] [address] [place] [address], [place] [address] SP Nov, SP [facility] [address] [id number] [address] [place] [address] SP Nov, 2012 SP [facility] [address] [id number] [address] [place] [address] SP Nov, SP [facility] [address] [id number] [address] [place] [address] SP Nov, 2012 SP [facility] [address] [id number] [address] [place] [address] SP 28 Oct, 2012 SP [facility] [address] [id number] [address] [place] [address] SP 27 Oct, 2012 SP [facility] [address] [id number] [address] [place] [address] SP 26 Oct, 2012 SP [facility] [address] [id number] [address] [place] [address] SP 25 Oct, 2012 SP [facility] [address] [id number] [address] [place] [address] SP 25 Oct, 2012 SP [facility] [address] [id number] [address] [place] [address] SP 18 Oct, 2012 SP [facility] [address] [id number] [address] [place] [address] SP 13 Oct, 2012 SP IMMUNIZATIONS No [...] History Childbirth 2013 SP Hospitalization History IBS 2016 SP Hospitalization History 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
== END 2018-12-21 21:22 | disposition home or self-care (01) ==
LOC: EDUNIT# 20:21 → ER 20:22
DX: O23.591 Infection of other part of genital tract in pregnancy, first trimester (principal); N76.0 Acute vaginitis; B96.89 Other specified bacterial agents as the cause of diseases classified elsewhere; O99.511 Diseases of the respiratory system complicating pregnancy, first trimester; J45.909 Unspecified asthma, uncomplicated; O99.341 Other mental disorders complicating pregnancy, first trimester; F41.9 Anxiety disorder, unspecified; F31.9 Bipolar disorder, unspecified; F90.9 Attention-deficit hyperactivity disorder, unspecified type; O99.611 Diseases of the digestive system complicating pregnancy, first trimester; K58.9 Irritable bowel syndrome, unspecified; Z3A.11 11 weeks gestation of pregnancy; Z91.5 Personal history of self-harm; Z77.22 Contact with and (suspected) exposure to environmental tobacco smoke (acute) (chronic)
CPT/HCPCS: 36415; 81000; 84702; 85025; 87070; 87088; 87205; 87210; 87491; 87591; 99284

== ENCOUNTER 2019-05-06 12:49 | Outpatient (CLI) | payer MEDICAID ==
[~2019-05-06] VITALS: Ht 157.5 cm; Wt 64.9 kg
[~2019-05-06 12:49] MED LIST changes: +CLIN300C11 PO
--- NOTE | 2019-05-06 13:05 | NUR ---
Arrived to unit via wheelchair per friend. pt c/o lower back pain bilat that is constant. Wt obtained and to room 315. Gowned and urine sample obtained. Oriented to room, call light and surroundings. bed controls explained. monitors on. pt reports movement.
[2019-05-06 13:31] LABS: BILIRUBIN,URINE NEGATIVE (NEGATIVE); CLARITY,URINE CLEAR; COLOR,URINE YELLOW; GLUCOSE, URINE (UA) TRACE (NEGATIVE); KETONES,URINE NEGATIVE (NEGATIVE); LEUKOCYTE ESTERASE ,URINE NEGATIVE (NEGATIVE); NITRITE,URINE NEGATIVE (NEGATIVE); PROTEIN,URINE NEGATIVE (NEGATIVE)
[2019-05-06 13:42] LABS: BACTERIA,URINE TRACE /HPF; SQUAMOUS EPITHELIAL CELL,UR 0-2 /HPF
[2019-05-06 13:47] VITALS: BP 122/72
[2019-05-06 13:50] VITALS: BP 122/72
--- NOTE | 2019-05-06 14:03 | NUR ---
Dr Munoz notified of pt arrival, gestation, c/o, assessment, fhr pattern reactive, occ contraction noted, sve closed/thick, ua results. new order received.
[2019-05-06] MEDS ORDERED: hydrOXYzine (VISTARIL/ATARAX) 25 MG capsule/tablet ONE (14:14)
[2019-05-06] MEDS ORDERED: hydrOXYzine (VISTARIL/ATARAX) 25 MG capsule/tablet PO ONE (14:15)
[2019-05-06] MEDS ORDERED: PREN-37 PO (14:15)
[2019-05-06] MEDS ORDERED: FAMO20TA3 PO (14:15)
--- NOTE | 2019-05-06 14:55 | NUR ---
Discharge instructions explained, signed and copy to patient. pt verbalized understanding of instructions and denied questions.
--- NOTE | 2019-05-06 14:55 | NUR ---
Discharged to home. Ambulates self off unit to private vehicle with belongings in hand.
--- NOTE | 2019-05-07 08:44 | Physician Query-Final Dx ---
NICOLETTE BOLAND 05/07/19 0844: Clinic Account Progress/Dx Physician Query: Please give diagnosis Please include # weeks gestation Date of Service May 06, 2019 at 12:49 MELISSA BAEZ MD 05/07/19 2238: Clinic Account Progress/Dx DIAGNOSIS: Diagnosis Pelvic pressure 30 weeks gestation third trimester NICOLETTE BOLAND May 07, 2019 08:44 MELISSA BAEZ MD May 07, 2019 22:38
== END 2019-05-06 14:55 | disposition home or self-care (01) ==
LOC: WSo 12:49 → LDRP 12:52 → WSo 14:55
PROVIDERS: ATTEND Family Medicine
DX: O26.893 Other specified pregnancy related conditions, third trimester (principal); R10.2 Pelvic and perineal pain; Z3A.30 30 weeks gestation of pregnancy
CPT/HCPCS: 81000; 99213

== ENCOUNTER 2019-06-19 15:10 | Outpatient (CLI) | payer MEDICAID ==
[~2019-06-19] VITALS: Ht 157.5 cm; Wt 66.0 kg
[~2019-06-19 15:10] MED LIST changes: +FAMO20TA3 PO; +PREN-37 PO
[2019-06-19 15:15] VITALS: BP 118/77
--- NOTE | 2019-06-19 15:15 | NUR ---
LYNETTE ROTHMAN presented to unit via ambulation from ED, accompanied by friend, with c/o headache and pelvic pressure.. LYNETTE ROTHMAN weighed, gowned, voided, and to bed. EFHM and TOCO applied, VS taken. LYNETTE ROTHMAN oriented to bed controls, call light, TV, heat, and A/C controls.
[2019-06-19 15:43] LABS: BASOPHILS % (AUTO) 0 % (0-10); EOSINOPHILS # (AUTO) 0.2 10^3/uL (0.0-0.3); EOSINOPHILS % (AUTO) 2 % (0-10); HEMATOCRIT 40 % (35-52); HEMOGLOBIN 12.8 G/DL (11.5-16.0); LYMPHOCYTES # (AUTO) 1.6 X 10^3 (1.0-4.0); LYMPHOCYTES % (AUTO) 15 % (12-44); MEAN CORPUSCULAR HEMOGLOBIN 26 PG (25-34); MEAN CORPUSCULAR HGB CONC 32 G/DL (32-36); MEAN CORPUSCULAR VOLUME 82 FL (80-99); MEAN PLATELET VOLUME 12.5 FL (7.4-10.4); MONOCYTES # (AUTO) 0.7 X 10^3 (0.0-1.0); MONOCYTES % (AUTO) 7 % (0-12); NEUTROPHILS # (AUTO) 7.8 X 10^3 (1.8-7.8); NEUTROPHILS % (AUTO) 76 % (42-75); PLATELET COUNT 218 10^3/uL (130-400); RED CELL DISTRIBUTION WIDTH 17.8 % (10.0-14.5); WHITE BLOOD COUNT 10.3 10^3/uL (4.3-11.0)
[2019-06-19 15:45] VITALS: BP 118/77
[2019-06-19 16:00] VITALS: BP 118/77
[2019-06-19 16:11] LABS: ALANINE AMINOTRANSFERASE 20 U/L (0-55); ALBUMIN 3.1 GM/DL (3.2-4.5); ALKALINE PHOSPHATASE 127 U/L (40-136); BILIRUBIN,TOTAL 0.2 MG/DL (0.1-1.0); BUN/CREATININE RATIO 16; CALCIUM 8.7 MG/DL (8.5-10.1); CARBON DIOXIDE 19 MMOL/L (21-32); CHLORIDE 106 MMOL/L (98-107); CREATININE SERUM 0.58 MG/DL (0.60-1.30); GFR ESTIMATED > 60; GLUCOSE 100 MG/DL (70-105); POTASSIUM 3.8 MMOL/L (3.6-5.0); SODIUM 136 MMOL/L (135-145); TOTAL PROTEIN 6.4 GM/DL (6.4-8.2)
[2019-06-19] MEDS ORDERED: METF-399 PO (16:24)
[2019-06-19 16:59] LABS: ANISOCYTOSIS SLIGHT; BAND NEUTROPHILS 2 %; LYMPHOCYTES % (MANUAL) 15 %; MONOCYTES % (MANUAL) 9 %; NEUTROPHILS % (MANUAL) 74 %
--- NOTE | 2019-06-19 17:00 | NUR ---
LYNETTE ROTHMAN demonstrates understanding of discharge instructions and accurately returns instructions upon questioning. Copy of Post-Discharge Instructions and Medication Discharge Instructions and labor precautions instructions given to pt. LYNETTE ROTHMAN is to manage continuing needs after discharge. Patients belongings returned to pt. Skin dry and intact; no breakdown noted. Patient discharged from [facility] on 06/19/19at 1700 . LYNETTE ROTHMAN left floor via ambulation, accompanied by friend.
--- NOTE | 2019-06-20 08:22 | Physician Query-Final Dx ---
NICOLETTE BOLAND 06/20/19 0822: Clinic Account Progress/Dx Physician Query: Please give diagnosis Please include # weeks gestation Date of Service Jun 19, 2019 at 15:10 GENARO JURADO MD 06/20/19 1043: Clinic Account Progress/Dx DIAGNOSIS: Diagnosis Proteinuria Gestational diabetes 37 weeks gestation NICOLETTE BOLAND Jun 20, 2019 08:22 GENARO JURADO MD Jun 20, 2019 10:43
== END 2019-06-19 17:00 | disposition home or self-care (01) ==
LOC: WSo 15:10 → LDRP 15:11 → WSo 17:00
PROVIDERS: ATTEND Family Medicine
DX: O24.419 Gestational diabetes mellitus in pregnancy, unspecified control (principal); O12.13 Gestational proteinuria, third trimester; Z3A.37 37 weeks gestation of pregnancy
CPT/HCPCS: 36415; 80053; 82570; 83615; 84156; 84550; 85007; 85027

== ENCOUNTER 2019-06-24 01:26 | Outpatient (CLI) | payer MEDICAID ==
[~2019-06-24] VITALS: Ht 157.5 cm; Wt 75.3 kg
--- NOTE | 2019-06-24 01:17 | NUR ---
0117 - Jenny Gonsales RN called Dr. Mena, no answer, left message. 014 - Jenny Gonsales RN again called Dr. Mena, no answer. 0143 - Jenny Gonsales RN text Dr. Mena. Addendum: 06/24/19 at 0256 by CRUZITO COHEN RN Time should be 0217, 0242 & 0243
[~2019-06-24 01:26] MED LIST changes: +METF-399 PO
--- NOTE | 2019-06-24 01:30 | NUR ---
LYNETTE ROTHMAN presented to unit via ambulation from home/ED, accompanied by FOB's mother, with c/o CONTRACTIONS. LYNETTE ROTHMAN weighed, gowned, voided, and to bed. EFHM and TOCO applied, VS taken. LYNETTE ROTHMAN oriented to bed controls, call light, TV, heat, and A/C controls.
[2019-06-24 01:45] VITALS: BP 126/79
[2019-06-24 03:05] LABS: BILIRUBIN,URINE NEGATIVE (NEGATIVE); CLARITY,URINE CLEAR; COLOR,URINE YELLOW; GLUCOSE, URINE (UA) TRACE (NEGATIVE); KETONES,URINE 1+ (NEGATIVE); LEUKOCYTE ESTERASE ,URINE NEGATIVE (NEGATIVE); NITRITE,URINE NEGATIVE (NEGATIVE); PH,URINE 6.5 (5-9); PROTEIN,URINE 2+ (NEGATIVE)
[2019-06-24 03:16] LABS: BACTERIA,URINE FEW /HPF; CALCIUM OXALATE CRYSTALS,UR MODERATE /LPF
--- NOTE | 2019-06-24 03:35 | NUR ---
D/C instructions given & explained, instructed pt. to go to sched appt today, pt. verbalized understanding & signed, copy of D/C instructions to pt. Pt. left [facility] ambulatory escorted by TESSA's mother, to home via private vehicle.
--- NOTE | 2019-06-25 08:21 | Physician Query-Final Dx ---
NICOLETTE BOLAND 06/25/19 0821: Clinic Account Progress/Dx Physician Query: Please give diagnosis Please include # weeks gestation Date of Service June 24, 2019 at 01:26 GENARO JURADO MD 06/26/19 1425: Clinic Account Progress/Dx DIAGNOSIS: Diagnosis Contractions without cervical change 37 weeks gestation NICOLETTE BOLAND June 25, 2019 08:21 GENARO JURADO MD June 26, 2019 14:25
== END 2019-06-24 03:35 | disposition home or self-care (01) ==
LOC: WSo 01:26 → LDRP 01:27 → WSo 03:35
PROVIDERS: ATTEND Family Medicine
DX: O62.9 Abnormality of forces of labor, unspecified (principal); Z3A.37 37 weeks gestation of pregnancy
CPT/HCPCS: 81000; 82570; 82962; 84156; 99213

== ENCOUNTER 2019-06-25 18:52 | Inpatient (IN) | payer MEDICAID ==
[2019-06-25] VITALS (17 sets, daily range): BP systolic 127–157; BP diastolic 72–92
[~2019-06-25] VITALS: Ht 157.5 cm; Wt 74.7 kg
--- NOTE | 2019-06-25 19:00 | NUR ---
LYNETTE ROTHMAN presented to unit via from ED, accompanied by adult female friend, with c/o INDUCTION. LYNETTE ROTHMAN weighed, gowned, voided, and to bed. EFHM and TOCO applied, VS taken. LYNETTE ROTHMAN oriented to bed controls, call light, TV, heat, and A/C controls. assessments to follow per this rn.
[2019-06-25] MEDS ORDERED: LACTATED RINGERS 1,000 ML IV SCH (19:29)
[2019-06-25] MEDS ORDERED: MISOPROSTOL 100 MCG (CYTOTEC) TAB PV PRN (19:30)
[2019-06-25] MEDS ORDERED: ONDANSETRON 4 MG/2 ML (SDV) Z0FRAN ONE (19:31)
[2019-06-25] MEDS: LACTATED RINGERS 1,000 ML IV SCH (19:35)
[2019-06-25] MEDS: ONDANSETRON 4 MG/2 ML (SDV) Z0FRAN IVP PRN (19:42)
[2019-06-25 20:02] LABS: BASOPHILS % (AUTO) 0 % (0-10); EOSINOPHILS # (AUTO) 0.1 10^3/uL (0.0-0.3); EOSINOPHILS % (AUTO) 1 % (0-10); HEMATOCRIT 39 % (35-52); HEMOGLOBIN 12.5 G/DL (11.5-16.0); LYMPHOCYTES # (AUTO) 1.6 X 10^3 (1.0-4.0); LYMPHOCYTES % (AUTO) 14 % (12-44); MEAN CORPUSCULAR HEMOGLOBIN 26 PG (25-34); MEAN CORPUSCULAR HGB CONC 32 G/DL (32-36); MEAN CORPUSCULAR VOLUME 82 FL (80-99); MEAN PLATELET VOLUME 12.7 FL (7.4-10.4); MONOCYTES # (AUTO) 0.8 X 10^3 (0.0-1.0); MONOCYTES % (AUTO) 7 % (0-12); NEUTROPHILS # (AUTO) 8.7 X 10^3 (1.8-7.8); NEUTROPHILS % (AUTO) 78 % (42-75); PLATELET COUNT 246 10^3/uL (130-400); RED CELL DISTRIBUTION WIDTH 17.9 % (10.0-14.5); WHITE BLOOD COUNT 11.2 10^3/uL (4.3-11.0)
--- OUTSIDE RECORDS SUMMARY | 2019-06-25 21:16 | XMS REPORT ---
Author Author Sheyla JURADO Organization [facility] Address [address] [place] [address] Care Team Providers Care Floral Department Specialist Name Role Phone GENARO JURADO Unavailable PROBLEMS Type Condition ICD9-CM Code ULB45-TH Code Onset Dates Condition S tatus SNOMED Code Problem ADHD (attention deficit hyperactivity disorder), combi amparo type F90.2 Active 02838015 Problem Slow transit constipation K59.01 Acti ve 15051374 Problem Intrinsic atopic dermatitis L20.84 Ac tive 52614380 Problem Gastroesophageal reflux disease without esophagitis K21.9 Active 767213727 Problem Anxiety disorder, unspecified type F41.9 Active 485934090 Problem Major depressive disorder, single episode, mild F3 2.0 Active 45259396 Problem Irritable bowel syndrome with diarrhea K58.0 Active 179596696 Problem Unspecified mood [affective] disorder F39 Active 92564831 ALLERGIES No Information ENCOUNTERS Encounter Location Date Diagnosis [facility] [address] [facility] [id number] [address] [place] [phone] June, [facility] [address] [facility] [id number] [address] [place] [phone] June, [facility] [address] [facility] [id number] [address] [place] [phone] June, [facility] [address] [facility] [id number] [address] [place] [phone] May, [facility] [address] [facility] [id number] [address] [place] [id number] May, [facility] [address] [facility] [id number] [address] [place] [id number] May, [facility] [address] [facility] [id number] [address] [place] [phone] May, Third trimester Z3 4.93 ; Vaginal discharge N89.8 and Gastroesophageal reflux disease without esophagitis K21.9 [facility] [address] [facility] [id number] [address] [place] [phone] May, Gestational diabetes mellitu s (GDM) in third trimester controlled on oral hypoglycemic drug O24.415 ; 34 weeks gestation of Z3A.34 and Third trimester Z34.93 [facility] [address] [facility] [id number] [address] [place] [phone] May, [facility] [address] [facility] [id number] [address] [place] [phone] May, [place] [address] [facility] [id number] [address] [place] [phone] May, Third trimester Z3 4.93 ; Vaginal discharge N89.8 ; Lower abdominal tenderness R10.819 and Gestational diabetes mellitus (GDM) in third trimester controlled on oral hypoglycemic drug O24.415 [place] [address] [facility] [id number] [address] [place] [phone] May, Gestational diabetes mellitu s (GDM) in third trimester controlled on oral hypoglycemic drug O24.415 ; 34 weeks gestation of Z3A.34 and Third trimester Z34.93 [place] [address] [facility] [id number] [address] [place] [id number] 17 May, [id number] [place] [phone] May, Gestational diabetes mellitu s (GDM) in third trimester controlled on oral hypoglycemic drug O24.415 ; 34 weeks gestation of Z3A.34 and Third trimester Z34.93 [place] [address] [facility] [id number] [address] [place] [id number] 15 May, 2019 [place] [address] [facility] [id number] [address] [place] [phone] 08 May, 2019 Third trimester Z3 4.93 ; 34 weeks gestation of Z3A.34 and Gestational diabetes mellitus (GDM) in third trimester controlled on oral hypoglycemic drug O24.415 [facility] [address] [id number] [address] [place] [phone] May, Gestational diabetes mellitu s (GDM) in third trimester, gestational diabetes method of control unspecified O24.419 and Third trimester Z34.93 [facility] [address] [id number] [address] [place] [phone] May, [facility] [address] [id number] [address] [place] [phone] May, [facility] [address] [id number] [address] [place] [phone] Apr, [facility] [address] [facility] [id number] [address] [place] [phone] Apr, Third trimester Z3 4.93 and Gestational diabetes mellitus (GDM) in third trimester, gestational diabetes method of control unspecified O24.419 [facility] [address] [id number] [address] [place] [phone] Apr, [facility] [address] [facility] [id number] [address] [place] [phone] Apr, Diet controlled gestational diabetes mellitus (GDM) in third trimester O24.410 [facility] [address] [facility] [id number] [address] [place] [phone] Apr, 30 weeks gestation of pregna ncy Z3A.30 ; Diet controlled gestational diabetes mellitus (GDM) in third trimester O24.410 and Encounter for immunization Z23 [facility] [address] [id number] [address] [place] [phone] Apr, [facility] [address] [facility] [id number] [address] [place] [phone] Apr, Gestational diabetes O24.419 [facility] [address] [facility] [id number] [address] [place] [phone] Apr, [facility] [address] [facility] [id number] [address] [place] [phone] 02 Apr, 2019 Abnormal glucose tolerance i n O99.810 [facility] [address] [facility] [id number] [address] [place] [phone] Mar, Abnormal glucose tolerance i n O99.810 [facility] [address] [place] [id number] [address] [place] [phone] Mar, Second trimester Z 33.1 ; Nausea and vomiting during O21.9 and 27 weeks gestation of Z3A.27 [facility] [address] [facility] [id number] [address] [place] [phone] Mar, [facility] [address] [facility] [id number] [address] [place] [phone] Mar, Non-intractable vomiting wit h nausea, unspecified vomiting type R11.2 [facility] [address] [place] [id number] [address] [place] [phone] Feb, [facility] [address] [place] [id number] [address] [place] [phone] Feb, Second trimester Z 33.1 [facility] [address] [place] [id number] [address] [place] [phone] Feb, Second trimester Z 34.92 ; 21 weeks gestation of Z3A.21 and Exposure to STD Z20.2 [facility] [address] [place] [id number] [address] [place] [phone] Feb, Second trimester Z 33.1 [facility] [address] [facility] [id number] [address] [place] [phone] Feb, Non-intractable vomiting wit h nausea, unspecified vomiting type R11.2 [facility] [address] [facility] [id number] [address] [place] [phone] Jan, [facility] [address] [facility] [id number] [address] [place] [phone] Jan, [place] [address] [place] [id number] [address] [place] [phone] Jan, First trimester Z3 4.91 [facility] [address] [place] [id number] [address] [place] [phone] 16 Jan, 2019 Second trimester Z 34.92 and Intrinsic atopic dermatitis L20.84 [facility] [address] [place] [phone] Dec, First trimester Z3 4.91 [facility] [address] [place] [phone] Dec, Second trimester Z 34.92 and Family history of neural tube defect Z82.0 [place] [address] [place] [phone] Dec, [place] [address] [place] [id number] [address] [place] [phone] Dec, Second trimester Z 34.92 ; Family history of neural tube defect Z82.0 ; History of asthma Z87.09 and Wheezing R06.2 [facility] [address] [place] [phone] Dec, [facility] [address] [id number] [address] [address] Dec, [facility] [address] [place] [id number] [address] [place] [phone] Nov, care, subsequent pr egnancy in first trimester Z34.81 [facility] [address] [facility] [id number] [address] [place] [phone] Nov, First trimester Z3 4.91 ; 10 weeks gestation of Z3A.10 and Nausea and vomiting during O21.9 [facility] [address] [place] [id number] [address] [place] [phone] 14 Nov, 2018 care, subsequent pr egnancy in first trimester Z34.81 [facility] [address] [place] [id number] [address] [place] [phone] 05 Nov, 2018 Vomiting O21.9 [place] [address] [facility] [id number] [address] [place] [phone] 26 Oct, 2018 care, subsequent pr egnancy in first trimester Z34.81 and 6 weeks gestation of Z3A.01 [place] [address] [facility] [id number] [address] [place] [phone] Oct, [facility] [address] [facility] [id number] [address] [place] [phone] Oct, Heat rash L74.0 [place] [address] [facility] [id number] [address] [place] [phone] Aug, UTI symptoms R39.9 [place] [address] [place] [id number] [address] [place] [phone] Aug, [place] [address] [place] [id number] [address] [place] [phone] Aug, UTI symptoms R39.9 [place] [address] [facility] [id number] [address] [place] [phone] Aug, Hematuria, unspecified type R31.9 [facility] [address] [place] [id number] [address] [place] [phone] Jul, Sore throat J02.9 ; UTI symp toms R39.9 and Hematuria, unspecified type R31.9 [place] [address] [facility] [id number] [address] [place] [phone] June, Irritable bowel syndrome wit h diarrhea K58.0 and Major depressive disorder, single episode, mild F32.0 [place] [address] [place] [id number] [address] [place] [phone] June, ADHD (attention deficit hype ractivity disorder), combined type F90.2 ; Anxiety disorder, unspecified type F41.9 and Unspecified mood [affective] disorder F39 [place] [address] [id number] [address] [place] [id number] May, ADHD (attention deficit hype ractivity disorder), combined type F90.2 ; Anxiety disorder, unspecified type F41.9 ; Unspecified mood [affective] disorder F39 and Other assisted (current) 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 Z79.899 [facility] [address] [id number] [address] [place] [phone] May, Slow transit constipation K5 9.01 [facility] [address] [id number] [address] [place] [phone] May, ADHD (attention deficit hype ractivity disorder), combined type F90.2 [facility] [address] [id number] [address] [place] [phone] May, [facility] [address] [id number] [address] [place] [phone] May, Abdominal pain R10.9 [facility] [address] [id number] [address] [place] [phone] Apr, [facility] [address] [id number] [address] [place] [phone] Apr, [facility] [address] [id number] [address] [place] [phone] Apr, ADHD (attention deficit hype ractivity disorder), combined type F90.2 [facility] [address] [id number] [address] [place] [phone] Apr, Abdominal pain R10.9 [facility] [address] [id number] [address] [place] [phone] Apr, [facility] [address] [id number] [address] [place] [phone] Mar, [facility] [address] [id number] [address] [place] [id number] Mar, ADHD (attention deficit hype ractivity disorder), combined type F90.2 ; Anxiety disorder, unspecified type F41.9 and Unspecified mood [affective] disorder F39 [facility] [address] [place] [id number] [address] [place] [phone] Mar, Viral gastroenteritis A08.4 and Slow transit constipation K59.01 [facility] [address] [place] [id number] [address] [place] [phone] Mar, Viral gastroenteritis A08.4 [facility] [address] [place] [id number] [place] [phone] Mar, ADHD (attention deficit hype ractivity disorder), combined type F90.2 [place] [address] [place] [id number] [place] [phone] Feb, Slow transit constipation K5 9.01 ; Missed period N92.6 and Nausea R11.0 [place] [address] [phone] Feb, ADHD (attention deficit hype ractivity disorder), combined type F90.2 [facility] [address] [place] [id number] [place] [phone] Jan, Nausea R11.0 and Viral upper respiratory tract infection J06.9 [place] [address] [place] [id number] [place] [phone] Jan, [place] [address] [id number] Jan, ADHD (attention deficit hype ractivity disorder), combined type F90.2 ; Anxiety disorder, unspecified type F41.9 and Unspecified mood [affective] disorder F39 [place] [address] [id number] Jan, Well woman exam with routine gynecological exam Z01.419 ; Routine screening for STI (sexually transmitted infection) Z11.3 and Vaginal jose B37.3 [place] [address] [place] [id number] [place] [phone] Dec, [facility] [address] [place] [id number] [address] [place] [phone] Dec, [facility] [address] [phone] Dec, ADHD (attention deficit hype ractivity disorder), combined type F90.2 ; Anxiety disorder, unspecified type F41.9 and Unspecified mood [affective] disorder F39 [place] [address] [place] [id number] [address] [place] [phone] Dec, Unspecified mood [affective] disorder F39 ; Anxiety disorder, unspecified type F41.9 and ADHD (attention deficit hyperactivity disorder), combined type F90.2 [facility] [address] [place] [id number] [place] [phone] Nov, Other specified bacterial ag ents as the cause of diseases classified elsewhere B96.89 and Otitis media, unspecified, bilateral H66.93 [facility] [address] [place] [id number] [address] [place] [phone] Nov, Sore throat J02.9 and Acute nasopharyngitis J00 [place] [address] [place] [id number] [address] [place] [phone] Nov, ADHD (attention deficit hype ractivity disorder), combined type F90.2 ; Anxiety disorder, unspecified type F41.9 and Unspecified mood [affective] disorder F39 [place] [address] [place] [id number] [address] [place] [phone] Oct, ADHD (attention deficit hype ractivity disorder), combined type F90.2 [place] [address] [place] [id number] [address] [place] [phone] Oct, ADHD (attention deficit hype ractivity disorder), combined type F90.2 ; Anxiety disorder, unspecified type F41.9 and Unspecified mood [affective] disorder F39 [place] [address] [place] [id number] [address] [place] [phone] Sep, ADHD (attention deficit hype ractivity disorder), combined type F90.2 [facility] [address] [id number] [address] [place] [phone] Sep, [facility] [address] [id number] [address] [place] [phone] Aug, ADHD (attention deficit hype ractivity disorder), combined type F90.2 ; Major depressive disorder, single episode, mild F32.0 and Anxiety disorder, unspecified type F41.9 [facility] [address] [id number] [address] [place] [phone] Aug, Sore throat J02.9 ; Other sp ecified bacterial agents as the cause of diseases classified elsewhere B96.89 and Acute tonsillitis due to other specified organisms J03.80 [facility] [address] [id number] [address] [place] [phone] Aug, ADHD (attention deficit hype ractivity disorder), combined type F90.2 [facility] [address] [id number] [address] [place] [phone] Jul, ADHD (attention deficit hype ractivity disorder), combined type F90.2 [facility] [address] [id number] [address] [place] [phone] June, ADHD (attention deficit hype ractivity disorder), combined type F90.2 ; Major depressive disorder, single episode, mild F32.0 and Anxiety disorder, unspecified type F41.9 [facility] [address] [id number] [address] [place] [phone] June, [facility] [address] [id number] [address] [place] [phone] June, ADHD (attention deficit hype ractivity disorder), combined type F90.2 [facility] [address] [id number] [address] [place] [phone] May, [facility] [address] [id number] [address] [place] [phone] May, ADHD (attention deficit hype ractivity disorder), combined type F90.2 ; Major depressive disorder, single episode, mild F32.0 and Anxiety disorder, unspecified type F41.9 [facility] [address] [facility] [id number] [address] [place] [phone] May, Anxiety disorder, unspecifie d type F41.9 [facility] [address] [facility] [id number] [address] [place] [phone] Apr, [facility] [address] [facility] [id number] [address] [place] [phone] Apr, Anxiety disorder, unspecifie d type F41.9 [facility] [address] [facility] [id number] [address] [place] [phone] Apr, Anxiety disorder, unspecifie d type F41.9 ; Major depressive disorder, single episode, mild F32.0 and ADHD (attention deficit hyperactivity disorder), combined type F90.2 [facility] [address] [facility] [id number] [address] [place] [phone] Apr, [facility] [address] [facility] [id number] [address] [place] [phone] Apr, ADHD (attention deficit hype ractivity disorder), combined type F90.2 ; Anxiety state F41.1 ; Depressive disorder, not elsewhere classified F32.9 ; Major depressive disorder, single episode, mild F32.0 and Anxiety disorder, unspecified type F41.9 [facility] [address] [facility] [id number] [address] [place] [phone] Mar, ADHD (attention deficit hype ractivity disorder), combined type F90.2 [facility] [address] [facility] [id number] [address] [place] [phone] Mar, Nausea R11.0 [facility] [address] [facility] [id number] [address] [place] [phone] Mar, Screening for STD sexually t ransmitted disease Z11.3 ; Vaginal candidiasis B37.3 and Irritable bowel syndrome with diarrhea K58.0 [facility] [address] [place] [id number] [address] [place] [phone] Mar, [facility] [address] [place] [id number] [address] [place] [phone] Feb, ADHD (attention deficit hype ractivity disorder), combined type F90.2 [facility] [address] [place] [id number] [address] [place] [phone] Feb, Depressive disorder, not els ewhere classified F32.9 ; Anxiety state F41.1 and ADHD (attention deficit hyperactivity disorder), combined type F90.2 [place] [address] [place] [id number] [place] [phone] Feb, Depressive disorder, not els ewhere classified F32.9 ; Anxiety state F41.1 and ADHD (attention deficit hyperactivity disorder), combined type F90.2 [facility] [address] [phone] Feb, ADHD (attention deficit hype ractivity disorder), combined type F90.2 [facility] [address] [place] [id number] [address] [place] [phone] Jan, Other viral agents as the ca use of diseases classified elsewhere B97.89 and Acute upper respiratory infection, unspecified J06.9 [facility] [address] [place] [id number] [address] [place] [phone] Jan, ADHD (attention deficit hype ractivity disorder), combined type F90.2 ; Major depressive disorder, single episode, mild F32.0 and Anxiety disorder, unspecified type F41.9 [facility] [address] [place] [id number] [address] [place] [phone] Jan, [facility] [address] [place] [id number] [address] [place] [phone] Jan, ADHD (attention deficit hype ractivity disorder), combined type F90.2 ; Major depressive disorder, single episode, mild F32.0 and Anxiety disorder, unspecified type F41.9 [place] [address] [place] [id number] [place] [phone] 28 Dec, 2016 Irritable bowel syndrome wit h diarrhea K58.0 and Lower abdominal pain R10.30 [place] [address] [place] [id number] [address] [place] [id number] 09 Dec, 2016 Hospital discharge follow-up Z09 ; Mesenteric adenitis I88.0 ; IBD (inflammatory bowel disease) K52.9 and Nausea R11.0 [place] [address] [place] [id number] [address] [place] [id number] Nov, ADHD (attention deficit hype ractivity disorder), combined type F90.2 ; Major depressive disorder, single episode, mild F32.0 and Anxiety disorder, unspecified type F41.9 [place] [address] [id number] Nov, Anxiety state F41.1 ; ADHD ( attention deficit hyperactivity disorder), combined type F90.2 ; Major depressive disorder, single episode, mild F32.0 and Anxiety disorder, unspecified type F41.9 [place] [address] [address] [place] [id number] [address] [place] [id number] Oct, Anxiety state F41.1 ; ADHD ( attention deficit hyperactivity disorder), combined type F90.2 ; Major depressive disorder, single episode, mild F32.0 and Anxiety disorder, unspecified type F41.9 [place] [address] [address] [place] [id number] [address] [place] [phone] Oct, ADHD (attention deficit hype ractivity disorder), combined type F90.2 ; Major depressive disorder, single episode, mild F32.0 and Anxiety disorder, unspecified type F41.9 [place] [address] [address] [place] [id number] [address] [place] [phone] Oct, Major depressive disorder, s floresita episode, mild F32.0 ; Anxiety state F41.1 ; ADHD (attention deficit hyperactivity disorder), combined type F90.2 and Depressive disorder, not elsewhere classified F32.9 [facility] [address] [id number] [address] [place] [id number] 16 Oct, 2016 [facility] [address] [facility] [id number] [address] [place] [phone] Oct, Cellulitis L03.90 and Planta r wart of right foot B07.0 [facility] [address] [id number] [address] [place] [id number] Aug, ADHD (attention deficit hype ractivity disorder), combined type F90.2 ; Major depressive disorder, single episode, mild F32.0 and Anxiety disorder, unspecified type F41.9 [facility] [address] [facility] [id number] [address] [place] [phone] Aug, [facility] [address] [facility] [id number] [address] [place] [phone] Jul, ADHD (attention deficit hype ractivity disorder), combined type F90.2 [facility] [address] [facility] [id number] [address] [place] [phone] Jul, Mesenteric adenitis I88.0 [facility] [address] [facility] [id number] [address] [place] [phone] June, [facility] [address] [facility] [id number] [address] [place] [phone] June, Lower abdominal pain R10.30 [facility] [address] [facility] [id number] [address] [place] [phone] June, [facility] [address] [facility] [id number] [address] [place] [id number] June, ADHD (attention deficit hype ractivity disorder), combined type F90.2 and Major depressive disorder, single episode, mild F32.0 [facility] [address] [facility] [id number] [address] [place] [phone] May, [facility] [address] [facility] [id number] [address] [place] [phone] May, ADHD (attention deficit hype ractivity disorder), combined type F90.2 and Major depressive disorder, single episode, mild F32.0 [facility] [address] [facility] [id number] [address] [place] [phone] Apr, Abdominal pain R10.9 and Gas troenteritis and colitis, viral A08.4 [facility] [address] [facility] [id number] [address] [place] [address] Apr, [facility] [address] [facility] [id number] [address] [place] [address] Mar, Acute urticaria L50.8 [place] [address] [facility] [id number] [place] [address] Mar, [place] [address] [place] [id number] [place] [address] Feb, [facility] [address] [facility] [id number] [address] [place] [phone] Feb, Gastroenteritis K52.9 [place] [address] [place] [id number] [place] [address] Feb, Irritant contact dermatitis due to cosmetics L24.3 [place] [address] [facility] [id number] [address] [place] [phone] Jan, [place] [address] [facility] [id number] [address] [place] [phone] Jan, [place] [address] [facility] [id number] [address] [place] [phone] Jan, ADHD (attention deficit hype ractivity disorder), combined type F90.2 and Major depressive disorder, single episode, mild F32.0 [facility] [address] [facility] [id number] [address] [place] [address] Dec, Flexural eczema L20.82 [facility] [address] [facility] [id number] [address] [place] [address] Dec, Encounter for test Z32.00 [facility] [address] [facility] [id number] [address] [place] [phone] Dec, [facility] [address] [facility] [id number] [address] [place] [phone] Dec, [facility] [address] [facility] [id number] [address] [place] [phone] Dec, [facility] [address] [facility] [id number] [address] [place] [phone] Nov, Sore throat J02.9 and Pharyn gitis, unspecified etiology J02.9 [facility] [address] [facility] [id number] [address] [place] [phone] Nov, [facility] [address] [address] Nov, [facility] [address] [place] [id number] [address] [place] [address] Nov, Generalized abdominal pain R 10.84 and Slow transit constipation K59.01 [facility] [address] [place] [id number] [place] [address] [id number] Nov, Pharyngitis, unspecified lara ology J02.9 and Rhinitis, unspecified type J31.0 [facility] [address] [facility] [id number] [address] [place] [phone] Oct, Depressive disorder, not els ewhere classified F32.9 and ADHD (attention deficit hyperactivity disorder), combined type F90.2 [facility] [address] [facility] [id number] [address] [place] [id number] Oct, [facility] [address] [facility] [id number] [address] [place] [phone] Oct, [facility] [address] [facility] [id number] [address] [place] [phone] Oct, Strep throat J02.0 [facility] [address] [id number] [address] [place] [phone] Oct, [facility] [address] [id number] [address] [place] [address] Oct, Well woman exam with routine gynecological exam Z01.419 and Screening for STD sexually transmitted disease Z11.3 [facility] [address] [id number] [address] [place] [phone] Sep, ADHD (attention deficit hype ractivity disorder), combined type F90.2 ; Anxiety state F41.1 and Depressive disorder, not elsewhere classified F32.9 [facility] [address] [id number] [address] [place] [phone] Sep, ADHD (attention deficit hype ractivity disorder), combined type F90.2 and Depressive disorder, not elsewhere classified F32.9 [facility] [address] [id number] [address] [place] [phone] Aug, [facility] [address] [id number] [address] [place] [phone] Aug, ADHD (attention deficit hype ractivity disorder), combined type F90.2 and Depressive disorder, not elsewhere classified F32.9 [facility] [address] [id number] [address] [place] [phone] Aug, ADHD (attention deficit hype ractivity disorder), combined type F90.2 ; Anxiety state F41.1 and Depressive disorder, not elsewhere classified F32.9 [facility] [address] [id number] [address] [place] [phone] Aug, [facility] [address] [id number] [address] [place] [phone] Aug, [facility] [address] [id number] [address] [place] [phone] Jul, ADHD (attention deficit hype ractivity disorder), combined type F90.2 ; Depressive disorder, not elsewhere classified F32.9 and Anxiety state F41.1 [facility] [address] [id number] [address] [place] [id number] Jul, [facility] [address] [facility] [id number] [address] [place] [phone] Jul, ADHD (attention deficit hype ractivity disorder), combined type F90.2 ; Anxiety state F41.1 and Depressive disorder, not elsewhere classified F32.9 [facility] [address] [id number] [address] [place] [id number] June, [facility] [address] [id number] [place] [id number] June, Constipation K59.00 [facility] [address] [facility] [id number] [address] [place] [phone] May, Constipation K59.00 [facility] [address] [facility] [id number] [address] [place] [phone] May, Irritable bowel syndrome wit h diarrhea K58.0 [facility] [address] [id number] [address] [place] [phone] May, [facility] [address] [facility] [id number] [address] [place] [phone] May, [facility] [address] [id number] [address] [place] [phone] May, [facility] [address] [facility] [id number] [address] [place] [phone] May, [facility] [address] [id number] [address] [place] [phone] Jan, [facility] [address] [facility] [id number] [address] [place] [phone] Jan, [facility] [address] [facility] [id number] [address] [place] [phone] Jan, [facility] [address] [id number] [address] [place] [address], [place] [address] 08 Jan, 2014 [facility] [address] [id number] [address] [place] [address], [place] [address] Jan, [facility] [address] [id number] [address] [place] [address], [place] [address] Jan, [facility] [address] [id number] [address] [place] [address], [place] [address] Nov, [facility] [address] [id number] [address] [place] [address], [place] [address] Nov, [facility] [address] [id number] [address] [place] [address], [place] [address] Oct, [facility] [address] [id number] [address] [place] [address], [place] [address] Oct, [facility] [address] [id number] [address] [place] [address], [place] [address] Sep, [facility] [address] [id number] [address] [place] [address], [place] [address] Sep, [facility] [address] [id number] [address] [place] [address], [place] [address] Aug, [facility] [address] [id number] [address] [place] [address], [place] [address] Aug, [facility] [address] [id number] [address] [place] [address], [place] [address] Aug, [facility] [address] [id number] [address] [place] [address], [place] [address] Aug, [facility] [address] [id number] [address] [place] [address], [place] [address] Aug, [facility] [address] [id number] [address] [place] [address], [place] [address] Aug, [facility] [address] [id number] [address] [place] [address], [place] [address] Aug, [facility] [address] [id number] [address] [place] [address], [place] [address] Aug, [facility] [address] [id number] [address] [place] [address], [place] [address] Jul, [facility] [address] [id number] [address] [place] [address], [place] [address] Jul, [facility] [address] [id number] [address] [place] [address], [place] [address] Jul, [facility] [address] [id number] [address] [place] [address], [place] [address] Jul, [facility] [address] [id number] [address] [place] [address], [place] [address] Jul, [facility] [address] [id number] [address] [place] [address], [place] [address] Jul, [facility] [address] [id number] [address] [place] [address], [place] [address] Jul, [facility] [address] [id number] [address] [place] [address], [place] [address] Jul, [facility] [address] [id number] [address] [place] [address], [place] [address] Jul, [facility] [address] [id number] [address] [place] [address], [place] [address] June, [facility] [address] [id number] [address] [place] [address], [place] [address] June, [facility] [address] [id number] [address] [place] [address], [place] [address] May, [facility] [address] [id number] [address] [place] [address], [place] [address] May, [facility] [address] [id number] [address] [place] [address], [place] [address] May, [facility] [address] [id number] [address] [place] [address], [place] [address] May, [facility] [address] [id number] [facility] [place] [address] May, [facility] [address] [id number] [address] [place] [address], [place] [address] May, [facility] [address] [id number] [address] [place] [address], [place] [address] May, [facility] [address] [id number] [address] [place] [address], [place] [address] May, [facility] [address] [id number] [address] [place] [address], [place] [address] May, [facility] [address] [id number] [address] [place] [address], [place] [address] May, [facility] [address] [id number] [address] [place] [address], [place] [address] May, [facility] [address] [id number] [address] [place] [address], [place] [address] May, [facility] [address] [id number] [address] [place] [address], [place] [address] Apr, [facility] [address] [id number] [address] [place] [address], [place] [address] Apr, [facility] [address] [id number] [address] [place] [address], [place] [address] Apr, [facility] [address] [id number] [address] [place] [address], [place] [address] Apr, [facility] [address] [id number] [address] [place] [address], [place] [address] Mar, [facility] [address] [id number] [address] [place] [address], [place] [address] Mar, [facility] [address] [id number] [address] [place] [address], [place] [address] Mar, [facility] [address] [id number] [address] [place] [address], [place] [address] 28 Mar, 2013 [facility] [address] [id number] [address] [place] [address], [place] [address] Mar, 2013 [facility] [address] [id number] [address] [place] [address], [place] [address] Mar, 2013 [facility] [address] [id number] [address] [place] [address], [place] [address] 19 Mar, 2013 [facility] [address] [id number] [address] [place] [address], [place] [address] Mar, 2013 [facility] [address] [id number] [address] [place] [address], [place] [address] Mar, 2013 [facility] [address] [id number] [address] [place] [address], [place] [address] Mar, 2013 [facility] [address] [id number] [address] [place] [address], [place] [address] 14 Mar, 2013 [facility] [address] [id number] [address] [place] [address], [place] [address] 14 Mar, 2013 [facility] [address] [id number] [address] [place] [address], [place] [address] 13 Mar, 2013 [facility] [address] [id number] [address] [place] [address], [place] [address] 13 Mar, 2013 [facility] [address] [id number] [address] [place] [address], [place] [address] Mar, 2013 [facility] [address] [id number] [address] [place] [address], [place] [address] Mar, 2013 [facility] [address] [id number] [address] [place] [address], [place] [address] Mar, 2013 [facility] [address] [id number] [address] [place] [address], [place] [address] Mar, 2013 [facility] [address] [id number] [address] [place] [address], [place] [address] Mar, [facility] [place] [address] [id number] [address] [place] [address], [place] [address] Mar, [facility] [address] [id number] [address] [place] [address], [place] [address] Feb, [facility] [place] [address] [id number] [address] [place] [address], [place] [address] Feb, [facility] [address] [id number] [address] [place] [address], [place] [address] Feb, [facility] [place] [address] [id number] [address] [place] [address], [place] [address] Feb, [facility] [address] [id number] [address] [place] [address], [place] [address] Feb, [facility] [address] [id number] [address] [place] [address], [place] [address] Feb, [facility] [address] [id number] [address] [place] [address], [place] [address] Feb, [facility] [place] [address] [id number] [address] [place] [address], [place] [address] Feb, [facility] [address] [id number] [address] [place] [address], [place] [address] Feb, [facility] [address] [id number] [address] [place] [address], [place] [address] Feb, [facility] [address] [id number] [address] [place] [address], [place] [address] Feb, [facility] [address] [id number] [address] [place] [address], [place] [address] Feb, [facility] [address] [id number] [address] [place] [address], [place] [address] Feb, [facility] [address] [id number] [address] [place] [address], [place] [address] Feb, [facility] [address] [id number] [address] [place] [address], [place] [address] 16 Feb, 2013 [facility] [address] [id number] [address] [place] [address], [place] [address] 15 Feb, 2013 [facility] [address] [id number] [address] [place] [address], [place] [address] 15 Feb, 2013 [facility] [address] [id number] [address] [place] [address], [place] [address] Feb, [facility] [address] [id number] [address] [place] [address], [place] [address] Feb, [facility] [address] [id number] [address] [place] [address], [place] [address] Feb, [facility] [address] [id number] [address] [place] [address], [place] [address] Feb, [facility] [address] [id number] [address] [place] [address], [place] [address] Feb, [facility] [address] [id number] [address] [place] [address], [place] [address] Feb, [facility] [address] [id number] [address] [place] [address], [place] [address] Jan, [facility] [address] [id number] [address] [place] [address], [place] [address] Jan, [facility] [address] [id number] [address] [place] [address], [place] [address] Jan, [facility] [address] [id number] [address] [place] [address], [place] [address] 18 Jan, 2013 [facility] [address] [id number] [address] [place] [address], [place] [address] Jan, [facility] [address] [id number] [address] [place] [address], [place] [address] 18 Jan, 2013 [facility] [address] [id number] [address] [place] [phone] 18 Jan, 2013 [facility] [address] [id number] [address] [place] [address], [place] [address] 17 Jan, 2013 [facility] [address] [id number] [address] [place] [phone] 17 Jan, 2013 [facility] [address] [id number] [address] [place] [address], [place] [address] Jan, [facility] [address] [id number] [address] [place] [phone] Jan, [facility] [address] [id number] [address] [place] [address], [place] [address] Jan, [facility] [address] [id number] [address] [place] [address], [place] [address] Jan, [facility] [address] [id number] [address] [place] [phone] Dec, [facility] [address] [id number] [address] [place] [phone] Dec, [facility] [address] [id number] [address] [place] [phone] Dec, [facility] [address] [id number] [address] [place] [phone] Dec, [facility] [address] [id number] [address] [place] [phone] 15 Dec, 2012 [facility] [address] [id number] [address] [place] [phone] Dec, [facility] [address] [id number] [address] [place] [phone] Nov, [facility] [address] [id number] [address] [place] [phone] Nov, [facility] [address] [id number] [address] [place] [phone] Nov, [facility] [address] [id number] [address] [place] [phone] Nov, [facility] [address] [id number] [address] [place] [phone] Nov, [facility] [address] [id number] [address] [place] [phone] Nov, [facility] [address] [id number] [address] [place] [phone] 28 Oct, 2012 [facility] [address] [id number] [address] [place] [phone] 27 Oct, 2012 [facility] [address] [id number] [address] [place] [phone] 26 Oct, 2012 [facility] [address] [id number] [address] [place] [phone] Oct, [facility] [address] [id number] [address] [place] [phone] Oct, [facility] [address] [id number] [address] [place] [phone] 18 Oct, 2012 [facility] [address] [id number] [address] [place] [phone] Oct, IMMUNIZATIONS No Known Immunizations SOCIAL HISTORY Never Assessed REASON FOR VISIT PLAN OF CARE VITAL SIGNS MEDICATIONS Unknown Medications RESULTS No Results PROCEDURES No Known procedures INSTRUCTIONS MEDICATIONS ADMINISTERED No Known Medications MEDICAL (GENERAL) HISTORY Type Description Date Medical History IBS Medical History ADHD Medical History hx ovarian cysts Medical History Depression Medical History Anxiety Medical History Mood disorder Surgical History Colonoscopy 2015 Surgical History Hernia Repair at 3 months old Hospitalization History Childbirth 2014 Hospitalization History IBS 2016 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
--- OUTSIDE RECORDS SUMMARY | 2019-06-25 21:17 | XMS REPORT ---
Author Author Sheyla JURADO Organization 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 Name Role Phone RHIANNON GENARO Unavailable PROBLEMS Type Condition ICD9-CM Code [id number] Code Onset Dates Condition S tatus SNOMED Code Problem ADHD (attention deficit hyperactivity disorder), combi amparo type F90.2 Active 09891385 Problem Unspecified mood [affective] disorder F39 Active 25062010 Problem Intrinsic atopic dermatitis L20.84 Ac tive 36072186 Problem Slow transit constipation K59.01 Acti ve 27172690 Problem Anxiety disorder, unspecified type F41.9 Active 030842356 Problem Major depressive disorder, single episode, mild F3 2.0 Active 33551287 Problem Irritable bowel syndrome with diarrhea K58.0 Active [id number] ALLERGIES No Information ENCOUNTERS Encounter Location Date Diagnosis [facility] [address] [place] [id number] [place] [phone] May, [facility] [address] [id number] [place] [address] May, Third trimester Z3 4.93 [facility] [address] [id number] [place] [id number] May, [facility] [address] [facility] [id number] [address] [place] [phone] May, [facility] [id number] [place] [address] May, [facility] [id number] [place] [address] Apr, [facility] [address] [id number] [place] [address] Apr, Third trimester Z3 4.93 and Gestational diabetes mellitus (GDM) in third trimester, gestational diabetes method of control unspecified O24.419 [facility] [address] [id number] [place] [address] Apr, [facility] [address] [id number] [place] [address] Apr, Diet controlled gestational diabetes mellitus (GDM) in third trimester O24.410 [facility] [address] [place] [address] 11 Apr, 2019 30 weeks gestation of pregna ncy Z3A.30 ; Diet controlled gestational diabetes mellitus (GDM) in third trimester O24.410 and Encounter for immunization Z23 [facility] [address] [place] [address] Apr, [place] [address] [address] Apr, Gestational diabetes O24.419 [facility] [address] [place] [address] Apr, [facility] [address] [place] [id number] [place] [address] Apr, Abnormal glucose tolerance i n O99.810 [place] [address] [place] [address] Mar, Abnormal glucose tolerance i n O99.810 [facility] [address] [id number] [place] [address] Mar, Second trimester Z 33.1 ; Nausea and vomiting during O21.9 and 27 weeks gestation of Z3A.27 [facility] [address] [address] [id number] [place] [phone] Mar, [facility] [id number] [place] [phone] 07 Mar, 2019 Non-intractable vomiting wit h nausea, unspecified vomiting type R11.2 [facility] [address] [facility] [id number] [address] [place] [phone] Feb, [facility] [address] [facility] [id number] [address] [place] [id number] 20 Feb, 2019 Second trimester Z [address].1 [facility] [address] [facility] [id number] [address] [place] [phone] 13 Feb, 2019 Second trimester Z 34.92 ; 21 weeks gestation of Z3A.21 and Exposure to STD Z20.2 [facility] [address] [facility] [id number] [address] [place] [phone] 07 Feb, 2019 Second trimester Z 33.1 [facility] [address] [facility] [id number] [address] [place] [phone] 05 Feb, 2019 Non-intractable vomiting wit h nausea, unspecified vomiting type R11.2 [facility] [address] [facility] [id number] [address] [place] [phone] 31 Jan, 2019 [facility] [address] [facility] [facility] [id number] [address] [place] [phone] Jan, [facility] [address] [facility] [id number] [address] [place] [address] Jan, First trimester Z3 4.91 [facility] [address] [facility] [id number] [address] [place] [address] 16 Jan, 2019 Second trimester Z 34.92 and Intrinsic atopic dermatitis L20.84 [facility] [address] [facility] [id number] [address] [place] [address] Dec, First trimester Z3 4.91 [facility] [address] [facility] [id number] [address] [place] [address] Dec, Second trimester Z 34.92 and Family history of neural tube defect Z82.0 [facility] [address] [facility] [id number] [address] [place] [phone] Dec, [facility] [address] [facility] [id number] [address] [place] [address] Dec, Second trimester Z 34.92 ; Family history of neural tube defect Z82.0 ; History of asthma Z87.[address] [facility] [address] [facility] [id number] [address] [place] [phone] 08 Dec, 2018 [facility] [address] [place], [place] [id number] [place] [address] Dec, [facility] [address] [facility] [id number] [address] [place] [address] Nov, care, subsequent pr egnancy in first trimester Z34.81 [facility] [address] [place] [id number] [place] [address] 24 Nov, 2018 First trimester Z3 4.91 ; 10 weeks gestation of Z3A.10 and Nausea and vomiting during O21.9 [facility] [address] [place] [id number] [place] [phone] 14 Nov, 2018 care, subsequent pr egnancy in first trimester Z34.81 [facility] [address] [id number] [place] [phone] 05 Nov, [address] [facility] [address] [place] [address] [id number] [place] [address] 26 Oct, 2018 care, subsequent pr egnancy in first trimester Z34.81 and 6 weeks gestation [address]A.01 [facility] [address] [facility] [id number] [address] [place] [address] Oct, [facility] [address] [id number] [place] [address] Oct, Heat rash L74.0 [facility] [address] [facility] [id number] [address] [place] [address] Aug, UTI symptoms R39.9 [facility] [address] [place] [id number] [place] [phone] Aug, [facility] [address] [facility] [id number] [address] [place] [address] Aug, UTI symptoms R39.9 [facility] [address] [facility] [id number] [address] [place] [phone] Aug, Hematuria, unspecified type R31.9 [facility] [address] [facility] [id number] [address] [place] [address] Jul, Sore throat J02.9 ; UTI symp toms R39.9 and Hematuria, unspecified type R31.9 [facility] [address] [facility] [id number] [address] [place] [phone] June, Irritable bowel syndrome wit h diarrhea K58.0 and Major depressive disorder, single episode, mild F32.0 [facility] [address] [id number] [place] [phone] June, ADHD (attention deficit hype ractivity disorder), combined type F90.2 ; Anxiety disorder, unspecified type F41.9 and Unspecified mood [affective] disorder F39 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 [address] [facility] [id number] [address] [place] [address] May, Slow transit constipation K5 9.01 [facility] [address] [facility] [id number] [address] [place] [address] May, ADHD (attention deficit hype ractivity disorder), combined type F90.2 [facility] [address] [facility] [id number] [address] [place] [address] May, [facility] [address] [place] [address] [id number] [place] [address] May, Abdominal pain R10.9 [facility] [address] [facility] [id number] [address] [place] [phone] Apr, [facility] [address] [facility] [id number] [address] [place] [phone] Apr, [facility] [id number] [place] [phone] Apr, ADHD (attention deficit hype ractivity disorder), combined type F90.2 [facility] [address] [facility] [id number] [address] [place] [phone] Apr, Abdominal pain R10.9 [facility] [address] [facility] [id number] [address] [place] [address] Apr, [facility] [id number] [place] [address] Mar, [facility] [address] [id number] [place] [address] Mar, ADHD (attention deficit hype ractivity disorder), combined type F90.2 ; Anxiety disorder, unspecified type F41.9 and Unspecified mood [affective] disorder F39 [facility] [address] [address] [id number] [place] [address] Mar, Viral gastroenteritis A08.4 and Slow transit constipation K59.01 [facility] [address] [facility] [id number] [address] [place] [address] Mar, Viral gastroenteritis A08.4 [facility] [address] [address] [id number] [place] [address] Mar, ADHD (attention deficit hype ractivity disorder), combined type F90.2 [facility] [address] [facility] [id number] [address] [place] [address] Feb, Slow transit constipation K5 9.01 ; Missed period N92.6 and Nausea R11.0 [place] [address] [facility] [id number] [address] [place] [phone] Feb, ADHD (attention deficit hype ractivity disorder), combined type F90.2 [facility] [address] [facility] [id number] [address] [place] [address] Jan, Nausea R11.0 and Viral upper respiratory tract infection J06.9 [place] [address] [facility] [id number] [address] [place] [address] Jan, [place] [address] [facility] [id number] [address] [place] [address] Jan, ADHD (attention deficit hype ractivity disorder), combined type F90.2 ; Anxiety disorder, unspecified type F41.9 and Unspecified mood [affective] disorder F39 [place] [address] [facility] [id number] [address] [place] [address] Jan, Well woman exam with routine gynecological exam Z01.419 ; Routine screening for STI (sexually transmitted infection) Z11.3 and Vaginal jose B37.3 [place] [address] [facility] [id number] [address] [place] [address] Dec, [place] [address] [facility] [id number] [address] [place] [phone] Dec, [place] [address] [facility] [id number] [address] [place] [address] Dec, ADHD (attention deficit hype ractivity disorder), combined type F90.2 ; Anxiety disorder, unspecified type F41.9 and Unspecified mood [affective] disorder F39 [place] [address] [facility] [id number] [address] [place] [address] Dec, Unspecified mood [affective] disorder F39 ; Anxiety disorder, unspecified type F41.9 and ADHD (attention deficit hyperactivity disorder), combined type F90.2 [facility] [address] [facility] [id number] [address] [place] [address] Nov, Other specified bacterial ag ents as the cause of diseases classified elsewhere B96.89 and Otitis media, unspecified, bilateral H66.93 [facility] [address] [facility] [id number] [address] [place] [address] Nov, Sore throat J02.9 [address] nasopharyngitis J00 [facility] [address] [facility] [id number] [address] [place] [address] Nov, ADHD (attention deficit hype ractivity disorder), combined type F90.2 ; Anxiety disorder, unspecified type F41.9 and Unspecified mood [affective] disorder F39 [place] [address] [facility] [id number] [address] [place] [address] Oct, ADHD (attention deficit hype ractivity disorder), combined type F90.2 [facility] [address] [place] [id number] [place] [phone] Oct, ADHD (attention deficit hype ractivity disorder), combined type F90.2 ; Anxiety disorder, unspecified type F41.9 and Unspecified mood [affective] disorder F39 [facility] [address] [facility] [id number] [address] [place] [address] Sep, ADHD (attention deficit hype ractivity disorder), combined type F90.2 [facility] [address] [facility] [id number] [address] [place] [phone] Sep, [facility] [address] [facility] [id number] [address] [place] [address] Aug, ADHD (attention deficit hype ractivity disorder), combined type F90.2 ; Major depressive disorder, single episode, mild F32.0 and Anxiety disorder, unspecified type F41.9 [facility] [address] [facility] [id number] [address] [place] [address] Aug, Sore throat J02.9 ; Other sp ecified bacterial agents as the cause of diseases classified elsewhere B96.89 and Acute tonsillitis due to other specified organisms J03.80 [facility] [address] [id number] [address] [place] [address] Aug, ADHD (attention deficit hype ractivity disorder), combined type F90.2 [facility] [address] [id number] [address] [place] [phone] Jul, ADHD (attention deficit hype ractivity disorder), combined type F90.2 [facility] [address] [id number] [address] [place] [phone] June, ADHD (attention deficit hype ractivity disorder), combined type F90.2 ; Major depressive disorder, single episode, mild F32.0 and Anxiety disorder, unspecified type F41.9 [facility] [address] [id number] [address] [place] [address] June, [facility] [address] [facility] [id number] [address] [place] [address] June, ADHD (attention deficit hype ractivity disorder), combined type F90.2 [facility] [address] [id number] [address] [place] [address] May, [facility] [address] [id number] [address] [place] [address] May, ADHD (attention deficit hype ractivity disorder), combined type F90.2 ; Major depressive disorder, single episode, mild F32.0 and Anxiety disorder, unspecified type F41.9 [facility] [address] [id number] [address] [place] [phone] May, Anxiety disorder, unspecifie d type F41.9 [facility] [address] [id number] [address] [place] [address] Apr, [facility] [address] [facility] [id number] [address] [place] [address] Apr, Anxiety disorder, unspecifie d type F41.9 [facility] [address] [facility] [id number] [address] [place] [address] Apr, Anxiety disorder, unspecifie d type F41.9 ; Major depressive disorder, single episode, mild F32.0 and ADHD (attention deficit hyperactivity disorder), combined type F90.2 [facility] [address] [facility] [id number] [address] [place] [phone] Apr, [facility] [address] [facility] [id number] [address] [place] [address] Apr, ADHD (attention deficit hype ractivity disorder), combined type F90.2 ; Anxiety state F41.1 ; Depressive disorder, not elsewhere classified F32.9 ; Major depressive disorder, single episode, mild F32.0 and Anxiety disorder, unspecified type F41.9 [facility] [address] [facility] [id number] [address] [place] [phone] 28 Mar, 2017 ADHD (attention deficit hype ractivity disorder), combined type F90.2 [facility] [address] [facility] [id number] [address] [place] [address] 20 Mar, [address] [facility] [address] [facility] [id number] [address] [place] [phone] 13 Mar, 2017 Screening for STD sexually t ransmitted disease Z11.3 ; Vaginal candidiasis B37.3 and Irritable bowel syndrome with diarrhea K58.0 [facility] [address] [facility] [id number] [address] [place] [address] 04 Mar, 2017 [facility] [address] [facility] [id number] [address] [place] [phone] Feb, ADHD (attention deficit hype ractivity disorder), combined type F90.2 [facility] [address] [facility] [id number] [address] [place] [address] Feb, Depressive disorder, not els ewhere classified F32.9 ; Anxiety state F41.1 and ADHD (attention deficit hyperactivity disorder), combined type F90.2 [facility] [address] [facility] [id number] [address] [place] [address] Feb, Depressive disorder, not els ewhere classified F32.9 ; Anxiety state F41.1 and ADHD (attention deficit hyperactivity disorder), combined type F90.2 [facility] [address] [facility] [id number] [address] [place] [phone] Feb, ADHD (attention deficit hype ractivity disorder), combined type F90.2 [facility] [address] [facility] [id number] [address] [place] [address] Jan, Other viral agents as the ca use of diseases classified elsewhere B97.89 and Acute upper respiratory infection, unspecified J06.9 [facility] [address] [facility] [id number] [address] [place] [phone] Jan, ADHD (attention deficit hype ractivity disorder), combined type F90.2 ; Major depressive disorder, single episode, mild F32.0 and Anxiety disorder, unspecified type F41.9 [place] [address] [place] [id number] [place] [phone] Jan, [facility] [address] [facility] [id number] [address] [place] [address] Jan, ADHD (attention deficit hype ractivity disorder), combined type F90.2 ; Major depressive disorder, single episode, mild F32.0 and Anxiety disorder, unspecified type F41.9 [facility] [address] [place] [id number] [place] [address] Dec, Irritable bowel syndrome wit h diarrhea K58.0 and Lower abdominal pain R10.30 [facility] [address] [facility] [id number] [address] [place] [phone] 09 Dec, 2016 Hospital discharge follow-up Z09 ; Mesenteric adenitis I88.0 ; IBD (inflammatory bowel disease) K52.[address] [facility] [address] [facility] [id number] [address] [place] [phone] Nov, ADHD (attention deficit hype ractivity disorder), combined type F90.2 ; Major depressive disorder, single episode, mild F32.0 and Anxiety disorder, unspecified type F41.9 [facility] [address] [place] [id number] [address] [place] [id number] Nov, Anxiety state F41.1 ; ADHD ( attention deficit hyperactivity disorder), combined type F90.2 ; Major depressive disorder, single episode, mild F32.0 and Anxiety disorder, unspecified type F41.9 [facility] [address] [place] [id number] [address] [place] [id number] Oct, Anxiety state F41.1 ; ADHD ( attention deficit hyperactivity disorder), combined type F90.2 ; Major depressive disorder, single episode, mild F32.0 and Anxiety disorder, unspecified type F41.9 [place] [address] [place] [id number] [place] [id number] Oct, ADHD (attention deficit hype ractivity disorder), combined type F90.2 ; Major depressive disorder, single episode, mild F32.0 and Anxiety disorder, unspecified type F41.9 [place] [id number] [place] [id number] [place] [id number] Oct, Major depressive disorder, s floresita episode, mild F32.0 ; Anxiety state F41.1 ; ADHD (attention deficit hyperactivity disorder), combined type F90.2 and Depressive disorder, not elsewhere classified F32.9 [facility] [address] [place] [id number] [place] [phone] 16 Oct, 2016 [facility] [address] [place] [id number] [place] [id number] Oct, Cellulitis L03.90 and [place] r wart of right foot B07.0 [facility] [address] [facility] [id number] [address] [place] [id number] Aug, ADHD (attention deficit hype ractivity disorder), combined type F90.2 ; Major depressive disorder, single episode, mild F32.0 and Anxiety disorder, unspecified type F41.9 [facility] [address] [place] [id number] [address] [place] [phone] Aug, [facility] [address] [facility] [id number] [address] [place] [id number] Jul, ADHD (attention deficit hype ractivity disorder), combined type F90.2 [facility] [address] [facility] [id number] [address] [place] [id number] Jul, Mesenteric adenitis I88.0 [facility] [address] [facility] [id number] [address] [place] [place] [address] June, [facility] [address] [facility] [id number] [address] [place] [address] June, Lower abdominal pain R10.30 [facility] [address] [facility] [id number] [address] [place] [address] June, [facility] [address] [place] [id number] [address] [place] [address] June, ADHD (attention deficit hype ractivity disorder), combined type F90.2 and Major depressive disorder, single episode, mild F32.0 [facility] [address] [place] [id number] [address] [place] [address] May, [facility] [address] [place] [id number] [place] [address] May, ADHD (attention deficit hype ractivity disorder), combined type F90.2 and Major depressive disorder, single episode, mild F32.0 [facility] [address] [facility] [id number] [address] [place] [address] Apr, Abdominal pain R10.9 and Gas troenteritis and colitis, viral A08.4 [facility] [address] [facility] [id number] [address] [place] [address] Apr, [facility] [address] [facility] [id number] [address] [place] [address] Mar, Acute urticaria L50.8 [facility] [address] [place] [id number] [address] [place] [address] Mar, [facility] [address] [facility] [id number] [address] [place] [address] Feb, [facility] [address] [facility] [id number] [address] [place] [address] Feb, Gastroenteritis K52.9 [facility] [address] [facility] [id number] [address] [place] [address] Feb, Irritant contact dermatitis due to cosmetics L24.3 [facility] [address] [facility] [id number] [address] [place] [address] Jan, [facility] [address] [id number] [place] [address] Jan, [facility] [address] [id number] [place] [address] Jan, ADHD (attention deficit hype ractivity disorder), combined type F90.2 and Major depressive disorder, single episode, mild F32.0 [facility] [address] [id number] [address] [place] [address] Dec, Flexural eczema L20.82 [place] [address] [place] [id number] [address] [place] [address] Dec, Encounter for test Z32.00 [facility] [address] [place] [id number] [address] [place] [address] Dec, [facility] [address] [id number] [address] [place] [address] Dec, [facility] [address] [id number] [address] [place] [address] Dec, [facility] [address] [id number] [address] [place] [address] Nov, Sore throat J02.9 and Pharyn gitis, unspecified etiology J02.9 [facility] [address] [id number] [address] [place] [address] Nov, [facility] [address] [id number] [address] [place] [address] Nov, [facility] [address] [id number] [address] [place] [address] Nov, Generalized abdominal pain R 10.84 and Slow transit constipation K59.01 [facility] [address] [id number] [place] [id number] Nov, Pharyngitis, unspecified lara ology J02.9 and Rhinitis, unspecified type J31.0 [facility] [address] [id number] [address] [place] [address] Oct, Depressive disorder, not els ewhere classified F32.9 and ADHD (attention deficit hyperactivity disorder), combined type F90.2 [facility] [address] [id number] [address] [place] [address] Oct, [facility] [address] [id number] [address] [place] [address] Oct, [facility] [address] [id number] [address] [place] [address] Oct, Strep throat J02.0 [facility] [address] [id number] [address] [place] [address] Oct, [facility] [address] [id number] [address] [place] [address] Oct, Well woman exam with routine gynecological exam Z01.419 and Screening for STD sexually transmitted disease Z11.3 [facility] [address] [id number] [address] [place] [address] Sep, ADHD (attention deficit hype ractivity disorder), combined type F90.2 ; Anxiety state F41.1 and Depressive disorder, not elsewhere classified F32.9 [facility] [address] [id number] [address] [place] [address] Sep, ADHD (attention deficit hype ractivity disorder), combined type F90.2 and Depressive disorder, not elsewhere classified F32.9 [facility] [address] [id number] [address] [place] [address] Aug, [facility] [address] [id number] [address] [place] [address] Aug, ADHD (attention deficit hype ractivity disorder), combined type F90.2 and Depressive disorder, not elsewhere classified F32.9 [facility] [address] [id number] [address] [place] [address] Aug, ADHD (attention deficit hype ractivity disorder), combined type F90.2 ; Anxiety state F41.1 and Depressive disorder, not elsewhere classified F32.9 [facility] [address] [id number] [address] [place] [address] Aug, [facility] [address] [id number] [address] [place] [address] Aug, [facility] [address] [id number] [address] [place] [address] Jul, ADHD (attention deficit hype ractivity disorder), combined type F90.2 ; Depressive disorder, not elsewhere classified F32.9 and Anxiety state F41.1 [facility] [address] [id number] [address] [place] [address] Jul, [facility] [address] [id number] [address] [place] [address] Jul, ADHD (attention deficit hype ractivity disorder), combined type F90.2 ; Anxiety state F41.1 and Depressive disorder, not elsewhere classified F32.9 [facility] [address] [id number] [address] [place] [address] June, [facility] [address] [id number] [place] [id number] June, Constipation K59.00 [facility] [address] [id number] [address] [place] [address] May, 2016 Constipation K59.00 [facility] [address] [id number] [address] [place] [address], [place] [address] 20 May, 2016 Irritable bowel syndrome wit h diarrhea K58.0 [facility] [address] [id number] [address] [place] [address], [place] [address] [address], 2015 [facility] [address] [id number] [address] [place] [address], [place] [address] [address], 2015 [facility] [address] [id number] [address] [place] [address], [place] [address] [address], 2014 [facility] [address] [id number] [address] [place] [address], [place] [address] May, [facility] [address] [id number] [address] [place] [address], [place] [address] [address] Jan, 2014 [facility] [address] [id number] [address] [place] [address], [place] [address] Jan, [facility] [address] [id number] [address] [place] [address], [place] [address] Jan, [facility] [address] [id number] [address] [place] [address], [place] [address] Jan, [facility] [address] [id number] [address] [place] [address], [place] [address] Jan, [facility] [address] [id number] [address] [place] [address], [place] [address] Jan, [facility] [address] [id number] [address] [place] [address] Nov, [facility] [address] [id number] [address] [place] [address], [place] [address] Nov, [facility] [address] [id number] [address] [place] [address] [address], [address] [facility] [address] [id number] [address] [place] [address] Oct, [facility] [address] [id number] [address] [place] [address], [place] [address] Sep, [facility] [address] [id number] [address] [place] [address], [place] [address] Sep, [facility] [address] [id number] [address] [place] [address], [place] [address] Aug, [facility] [address] [id number] [address] [place] [address], [place] [address] Aug, [facility] [address] [id number] [address] [place] [address], [place] [address] Aug, [facility] [address] [id number] [address] [place] [address], [place] [address] Aug, [facility] [address] [id number] [address] [place] [address], [place] [address] Aug, [facility] [address] [id number] [address] [place] [address], [place] [address] Aug, [facility] [address] [id number] [address] [place] [address], [place] [address] Aug, [facility] [address] [id number] [address] [place] [address], [place] [address] Aug, [facility] [address] [id number] [address] [place] [address], [place] [address] Jul, [facility] [address] [id number] [address] [place] [address], [place] [address] Jul, [facility] [address] [id number] [address] [place] [address], [place] [address] Jul, [facility] [address] [id number] [address] [place] [address], [place] [address] Jul, [facility] [address] [id number] [address] [place] [address], [place] [address] Jul, [facility] [address] [id number] [address] [place] [address], [place] [address] 05 Jul, 2013 [facility] [address] [id number] [address] [place] [address], [place] [address] Jul, [facility] [address] [id number] [address] [place] [address], [place] [address] Jul, [facility] [address] [id number] [address] [place] [address], [place] [address] Jul, [facility] [address] [id number] [address] [place] [address], [place] [address] June, [facility] [address] [id number] [address] [place] [address], [place] [address] June, [facility] [address] [id number] [address] [place] [address], [place] [address] May, [facility] [address] [id number] [address] [place] [address], [place] [address] May, [facility] [address] [id number] [address] [place] [address], [place] [address] May, [facility] [address] [id number] [address] [place] [address], [place] [address] May, [facility] [address] [id number] [address] [place] [address], [place] [address] May, [facility] [address] [id number] [address] [place] [address], [place] [address] May, [facility] [address] [id number] [address] [place] [address], [place] [address] May, [facility] [address] [id number] [address] [place] [address], [place] [address] May, [facility] [address] [id number] [address] [place] [address], [place] [address] May, [facility] [address] [id number] [address] [place] [address], [place] [address] May, [facility] [address] [id number] [facility] [place] [address] May, [facility] [address] [id number] [address] [place] [address], [place] [address] May, [facility] [address] [id number] [address] [place] [address], [place] [address] Apr, [facility] [address] [id number] [address] [place] [address], [place] [address] Apr, [facility] [address] [id number] [address] [place] [address], [place] [address] Apr, [facility] [address] [id number] [address] [place] [address], [place] [address] Apr, [facility] [address] [id number] [address] [place] [address], [place] [address] Mar, [facility] [address] [id number] [address] [place] [address], [place] [address] Mar, [facility] [address] [id number] [address] [place] [address], [place] [address] Mar, [facility] [address] [id number] [address] [place] [address], [place] [address] Mar, [facility] [address] [id number] [address] [place] [address], [place] [address] Mar, [facility] [address] [id number] [address] [place] [address], [place] [address] Mar, [facility] [address] [id number] [address] [place] [address], [place] [address] Mar, [facility] [address] [id number] [address] [place] [address], [place] [address] Mar, [facility] [address] [id number] [address] [place] [address], [place] [address] Mar, [facility] [address] [id number] [address] [place] [address], [place] [address] 19 Mar, 2013 [facility] [address] [id number] [address] [place] [address], [place] [address] 14 Mar, 2013 [facility] [address] [id number] [address] [place] [address], [place] [address] 14 Mar, 2013 [facility] [address] [id number] [address] [place] [address], [place] [address] Mar, [facility] [address] [id number] [address] [place] [address], [place] [address] Mar, [facility] [address] [id number] [address] [place] [address], [place] [address] Mar, [facility] [address] [id number] [address] [place] [address], [place] [address] Mar, [facility] [address] [id number] [address] [place] [address], [place] [address] Mar, [facility] [address] [id number] [address] [place] [address], [place] [address] Mar, [facility] [address] [id number] [address] [place] [address], [place] [address] Mar, [facility] [address] [id number] [address] [place] [address], [place] [address] Mar, [facility] [address] [id number] [address] [place] [address], [place] [address] Feb, [facility] [address] [id number] [address] [place] [address], [place] [address] Feb, [facility] [address] [id number] [address] [place] [address], [place] [address] Feb, [facility] [address] [id number] [address] [place] [address], [place] [address] Feb, [facility] [address] [id number] [address] [place] [address], [place] [address] Feb, [facility] [address] [id number] [facility] [place] [address] Feb, [facility] [address] [id number] [address] [place] [address], [place] [address] Feb, [facility] [address] [id number] [address] [place] [address], [place] [address] Feb, [facility] [address] [id number] [address] [place] [address], [place] [address] Feb, [facility] [address] [id number] [address] [place] [address], [place] [address] Feb, [facility] [address] [id number] [address] [place] [address], [place] [address] Feb, [facility] [address] [id number] [address] [place] [address], [place] [address] Feb, [facility] [address] [id number] [address] [place] [address], [place] [address] Feb, [facility] [address] [id number] [address] [place] [address], [place] [address] Feb, [facility] [address] [id number] [address] [place] [address], [place] [address] Feb, [facility] [address] [id number] [address] [place] [address], [place] [address] Feb, [facility] [address] [id number] [address] [place] [address], [place] [address] Feb, [facility] [address] [id number] [address] [place] [address], [place] [address] Feb, [facility] [address] [id number] [address] [place] [address], [place] [address] Feb, [facility] [address] [id number] [address] [place] [address], [place] [address] Feb, [facility] [address] [id number] [address] [place] [address], [place] [address] 07 Feb, 2013 [facility] [address] [id number] [address] [place] [address], [place] [address] Feb, [facility] [address] [id number] [address] [place] [address], [place] [address] Feb, [facility] [address] [id number] [address] [place] [address], [place] [address] Jan, [facility] [address] [id number] [address] [place] [address], [place] [address] Jan, [facility] [address] [id number] [address] [place] [address], [place] [address] Jan, [facility] [address] [id number] [address] [place] [address], [place] [address] Jan, [facility] [address] [id number] [address] [place] [address], [place] [address] Jan, [facility] [address] [id number] [address] [place] [address], [place] [address] Jan, [facility] [address] [id number] [address] [place] [address], [place] [address] Jan, [facility] [address] [id number] [address] [place] [address], [place] [address] 17 Jan, 2013 [facility] [address] [id number] [address] [place] [address], [place] [address] 17 Jan, 2013 [facility] [address] [id number] [address] [place] [address], [place] [address] Jan, [facility] [address] [id number] [address] [place] [address], [place] [address] Jan, [facility] [address] [id number] [address] [place] [address], [place] [address] 04 Jan, 2013 [facility] [address] [id number] [address] [place] [address], [place] [address] Jan, [facility] [address] [id number] [address] [place] [address], [place] [address] Dec, [facility] [address] [id number] [address] [place] [address], [place] [address] Dec, [facility] [address] [id number] [address] [place] [address], [place] [address] Dec, [facility] [address] [id number] [address] [place] [address], [place] [address] Dec, [facility] [address] [id number] [address] [place] [address], [place] [address] Dec, [facility] [address] [id number] [address] [place] [address], [place] [address] Dec, [facility] [address] [id number] [address] [place] [address], [place] [address] Nov, [facility] [address] [id number] [address] [place] [address], [place] [address] Nov, [facility] [address] [id number] [address] [place] [address], [place] [address] Nov, [facility] [address] [id number] [address] [place] [address], [place] [address] Nov, [facility] [address] [id number] [address] [place] [address], [place] [address] Nov, [facility] [address] [id number] [address] [place] [phone] Nov, [facility] [address] [id number] [address] [place] [address], [place] [address] 28 Oct, 2012 [facility] [address] [id number] [address] [place] [address], [place] [address] 27 Oct, 2012 [facility] [address] [id number] [address] [place] [address], [place] [address] 26 Oct, 2012 [facility] [address] [id number] [address] [place] [phone] Oct, [facility] [address] [facility] [id number] [address] [place] [phone] Oct, [facility] [address] [facility] [id number] [address] [place] [id number] Oct, [facility] [address] [facility] [id number] [address] [place] [address] Oct, IMMUNIZATIONS No Known Immunizations SOCIAL HISTORY Never Assessed REASON FOR VISIT PLAN OF CARE VITAL SIGNS MEDICATIONS Unknown Medications RESULTS No Results PROCEDURES No Known procedures INSTRUCTIONS MEDICATIONS ADMINISTERED No Known Medications MEDICAL (GENERAL) HISTORY Type Description Date Medical History IBS Medical History ADHD Medical History hx ovarian cysts Medical History Depression Medical History Anxiety Medical History Mood disorder Surgical History Colonoscopy 2014 Surgical History Hernia Repair at 3 months old Hospitalization History Childbirth 2013 Hospitalization History IBS 2015 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
--- OUTSIDE RECORDS SUMMARY | 2019-06-25 21:17 | XMS REPORT ---
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 Name Role Phone RHIANNON GENARO Unavailable PROBLEMS Type Condition ICD9-CM Code UHM22-HU Code Onset Dates Condition S tatus SNOMED Code Problem ADHD (attention deficit hyperactivity disorder), combi amparo type F90.2 Active 14802101 Problem Unspecified mood [affective] disorder F39 Active 72905877 Problem Intrinsic atopic dermatitis L20.84 Ac tive 56419946 Problem Slow transit constipation K59.01 Acti ve 88796954 Problem Anxiety disorder, unspecified type F41.9 Active 110385165 Problem Major depressive disorder, single episode, mild F3 2.0 Active 68414305 Problem Irritable bowel syndrome with diarrhea K58.0 Active [id number] ALLERGIES No Information ENCOUNTERS Encounter Location Date Diagnosis [facility] [address] [place] [id number] [place] [address] May, [facility] [id number] [place] [address] May, Third trimester Z3 4.93 [facility] [id number] [place] [address] May, [facility] [address] [facility] [id number] [address] [place] [address] May, [facility] [id number] [place] [address] May, [facility] [id number] [place] [address] Apr, [facility] [id number] [place] [address] Apr, Third trimester Z3 4.93 and Gestational diabetes mellitus (GDM) in third trimester, gestational diabetes method of control unspecified O24.419 [facility] [id number] [place] [address] Apr, [facility] [id number] [place] [address] Apr, Diet controlled gestational diabetes mellitus (GDM) in third trimester O24.410 [facility] [id number] [place] [address] 11 Apr, 2019 30 weeks gestation of pregna ncy Z3A.30 ; Diet controlled gestational diabetes mellitus (GDM) in third trimester O24.410 and Encounter for immunization Z23 [facility] [id number] [place] [address] Apr, [place] [address] [address] Apr, Gestational diabetes O24.419 [facility] [address] [place] [address] Apr, [facility] [address] [place] [id number] [place] [address] Apr, Abnormal glucose tolerance i n O99.810 [place] [address] [place] [address] Mar, Abnormal glucose tolerance i n O99.810 [facility] [id number] [place] [address] Mar, Second trimester Z 33.1 ; Nausea and vomiting during O21.9 and 27 weeks gestation of Z3A.27 [facility] [id number] [place] [address] Mar, [facility] [id number] [place] [address] 07 Mar, 2019 Non-intractable vomiting wit h nausea, unspecified vomiting type R11.2 [facility] [address] [facility] [id number] [address] [place] [address] Feb, [facility] [address] [facility] [id number] [address] [place] [address] 20 Feb, 2019 Second trimester Z 33.1 [facility] [address] [facility] [id number] [address] [place] [address] 13 Feb, 2019 Second trimester Z 34.92 ; 21 weeks gestation of Z3A.21 and Exposure to STD Z20.2 [facility] [address] [facility] [id number] [address] [place] [address] 07 Feb, 2019 Second trimester Z 33.1 [facility] [address] [facility] [id number] [address] [place] [address] 05 Feb, 2019 Non-intractable vomiting wit h nausea, unspecified vomiting type R11.2 [facility] [address] [facility] [id number] [address] [place] [address] 31 Jan, 2019 [facility] [address] [facility] [id number] [address] [place] [address] Jan, [facility] [address] [facility] [id number] [address] [place] [address] Jan, First trimester Z3 4.91 [facility] [address] [facility] [id number] [address] [place] [address] 16 Jan, 2019 Second trimester Z 34.92 and Intrinsic atopic dermatitis L20.84 [facility] [address] [facility] [id number] [address] [place] [address] Dec, First trimester Z3 4.91 [facility] [address] [facility] [id number] [address] [place] [address] Dec, Second trimester Z 34.92 and Family history of neural tube defect Z82.0 [facility] [address] [facility] [id number] [address] [place] [address] Dec, [facility] [address] [facility] [id number] [address] [place] [address] Dec, Second trimester Z 34.92 ; Family history of neural tube defect Z82.0 ; History of asthma Z87.09 and Wheezing R06.2 [facility] [address] [facility] [id number] [address] [place] [address] 08 Dec, 2018 [facility] [address] [place], [place] [id number] [place] [address] Dec, [facility] [address] [facility] [id number] [address] [place] [address] Nov, care, subsequent pr egnancy in first trimester Z34.81 [facility] [address] [id number] [place] [address] 24 Nov, 2018 First trimester Z3 4.91 ; 10 weeks gestation of Z3A.10 and Nausea and vomiting during O21.9 [facility] [id number] [place] [address] 14 Nov, 2018 care, subsequent pr egnancy in first trimester Z34.81 [facility] [id number] [place] [address] 05 Nov, 2018 Vomiting O21.9 [facility] [address] [id number] [place] [address] 26 Oct, 2018 care, subsequent pr egnancy in first trimester Z34.81 and 6 weeks gestation of Z3A.01 [facility] [address] [facility] [id number] [address] [place] [address] Oct, [facility] [address] [id number] [place] [address] Oct, Heat rash L74.0 [facility] [address] [facility] [id number] [address] [place] [address] Aug, UTI symptoms R39.9 [facility] [address] [id number] [place] [address] Aug, [facility] [address] [facility] [id number] [address] [place] [address] Aug, UTI symptoms R39.9 [facility] [address] [facility] [id number] [address] [place] [address] Aug, Hematuria, unspecified type R31.9 [facility] [address] [facility] [id number] [address] [place] [address] Jul, Sore throat J02.9 ; UTI symp toms R39.9 and Hematuria, unspecified type R31.9 [facility] [address] [facility] [id number] [address] [place] [address] June, Irritable bowel syndrome wit h diarrhea K58.0 and Major depressive disorder, single episode, mild F32.0 [facility] [id number] [place] [address] June, ADHD (attention deficit hype ractivity disorder), combined type F90.2 ; Anxiety disorder, unspecified type F41.9 and Unspecified mood [affective] disorder F39 [facility] [id number] [place] [address] May, ADHD (attention deficit hype ractivity disorder), combined type F90.2 ; Anxiety disorder, unspecified type F41.9 ; Unspecified mood [affective] disorder F39 and 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 [facility] [address] [facility] [id number] [address] [place] [address] May, Slow transit constipation K5 9.01 [facility] [address] [facility] [id number] [address] [place] [address] May, ADHD (attention deficit hype ractivity disorder), combined type F90.2 [facility] [address] [facility] [id number] [address] [place] [address] May, [facility] [id number] [place] [address] May, Abdominal pain R10.9 [facility] [address] [facility] [id number] [address] [place] [address] Apr, [facility] [address] [facility] [id number] [address] [place] [address] Apr, [facility] [id number] [place] [address] Apr, ADHD (attention deficit hype ractivity disorder), combined type F90.2 [facility] [address] [facility] [id number] [address] [place] [address] Apr, Abdominal pain R10.9 [facility] [address] [facility] [id number] [address] [place] [address] Apr, [facility] [id number] [place] [address] Mar, [facility] [id number] [place] [address] Mar, ADHD (attention deficit hype ractivity disorder), combined type F90.2 ; Anxiety disorder, unspecified type F41.9 and Unspecified mood [affective] disorder F39 [facility] [id number] [place] [address] Mar, Viral gastroenteritis A08.4 and Slow transit constipation K59.01 [facility] [address] [facility] [id number] [address] [place] [address] Mar, Viral gastroenteritis A08.4 [facility] [address] [id number] [place] [address] Mar, ADHD (attention deficit hype ractivity disorder), combined type F90.2 [facility] [address] [facility] [id number] [address] [place] [address] Feb, Slow transit constipation K5 9.01 ; Missed period N92.6 and Nausea R11.0 [place] [address] [facility] [id number] [address] [place] [address] Feb, ADHD (attention deficit hype ractivity disorder), combined type F90.2 [facility] [address] [facility] [id number] [address] [place] [address] Jan, Nausea R11.0 and Viral upper respiratory tract infection J06.9 [place] [address] [facility] [id number] [address] [place] [address] Jan, [place] [address] [facility] [id number] [address] [place] [address] Jan, ADHD (attention deficit hype ractivity disorder), combined type F90.2 ; Anxiety disorder, unspecified type F41.9 and Unspecified mood [affective] disorder F39 [place] [address] [facility] [id number] [address] [place] [address] Jan, Well woman exam with routine gynecological exam Z01.419 ; Routine screening for STI (sexually transmitted infection) Z11.3 and Vaginal jose B37.3 [place] [address] [facility] [id number] [address] [place] [address] Dec, [place] [address] [facility] [id number] [address] [place] [address] Dec, [place] [address] [facility] [id number] [address] [place] [address] Dec, ADHD (attention deficit hype ractivity disorder), combined type F90.2 ; Anxiety disorder, unspecified type F41.9 and Unspecified mood [affective] disorder F39 [place] [address] [facility] [id number] [address] [place] [address] Dec, Unspecified mood [affective] disorder F39 ; Anxiety disorder, unspecified type F41.9 and ADHD (attention deficit hyperactivity disorder), combined type F90.2 [facility] [address] [facility] [id number] [address] [place] [address] Nov, Other specified bacterial ag ents as the cause of diseases classified elsewhere B96.89 and Otitis media, unspecified, bilateral H66.93 [facility] [address] [facility] [id number] [address] [place] [address] Nov, Sore throat J02.9 and Acute nasopharyngitis J00 [facility] [address] [facility] [id number] [address] [place] [address] Nov, ADHD (attention deficit hype ractivity disorder), combined type F90.2 ; Anxiety disorder, unspecified type F41.9 and Unspecified mood [affective] disorder F39 [place] [address] [facility] [id number] [address] [place] [address] Oct, ADHD (attention deficit hype ractivity disorder), combined type F90.2 [facility] [address] [id number] [place] [address] Oct, ADHD (attention deficit hype ractivity disorder), combined type F90.2 ; Anxiety disorder, unspecified type F41.9 and Unspecified mood [affective] disorder F39 [facility] [address] [facility] [id number] [address] [place] [address] Sep, ADHD (attention deficit hype ractivity disorder), combined type F90.2 [facility] [address] [facility] [id number] [address] [place] [address] Sep, [facility] [address] [facility] [id number] [address] [place] [address] Aug, ADHD (attention deficit hype ractivity disorder), combined type F90.2 ; Major depressive disorder, single episode, mild F32.0 and Anxiety disorder, unspecified type F41.9 [facility] [address] [facility] [id number] [address] [place] [address] Aug, Sore throat J02.9 ; Other sp ecified bacterial agents as the cause of diseases classified elsewhere B96.89 and Acute tonsillitis due to other specified organisms J03.80 [facility] [address] [id number] [address] [place] [address] Aug, ADHD (attention deficit hype ractivity disorder), combined type F90.2 [facility] [address] [id number] [address] [place] [address] Jul, ADHD (attention deficit hype ractivity disorder), combined type F90.2 [facility] [address] [id number] [address] [place] [address] June, ADHD (attention deficit hype ractivity disorder), combined type F90.2 ; Major depressive disorder, single episode, mild F32.0 and Anxiety disorder, unspecified type F41.9 [facility] [address] [id number] [address] [place] [address] June, [facility] [address] [facility] [id number] [address] [place] [address] June, ADHD (attention deficit hype ractivity disorder), combined type F90.2 [facility] [address] [id number] [address] [place] [address] May, [facility] [address] [id number] [address] [place] [address] May, ADHD (attention deficit hype ractivity disorder), combined type F90.2 ; Major depressive disorder, single episode, mild F32.0 and Anxiety disorder, unspecified type F41.9 [facility] [address] [id number] [address] [place] [address] May, Anxiety disorder, unspecifie d type F41.9 [facility] [address] [id number] [address] [place] [address] Apr, [facility] [address] [facility] [id number] [address] [place] [address] Apr, Anxiety disorder, unspecifie d type F41.9 [facility] [address] [facility] [id number] [address] [place] [address] Apr, Anxiety disorder, unspecifie d type F41.9 ; Major depressive disorder, single episode, mild F32.0 and ADHD (attention deficit hyperactivity disorder), combined type F90.2 [facility] [address] [facility] [id number] [address] [place] [address] Apr, [facility] [address] [facility] [id number] [address] [place] [address] Apr, ADHD (attention deficit hype ractivity disorder), combined type F90.2 ; Anxiety state F41.1 ; Depressive disorder, not elsewhere classified F32.9 ; Major depressive disorder, single episode, mild F32.0 and Anxiety disorder, unspecified type F41.9 [facility] [address] [facility] [id number] [address] [place] [address] 28 Mar, 2017 ADHD (attention deficit hype ractivity disorder), combined type F90.2 [facility] [address] [facility] [id number] [address] [place] [address] 20 Mar, 2017 Nausea R11.0 [facility] [address] [facility] [id number] [address] [place] [address] 13 Mar, 2017 Screening for STD sexually t ransmitted disease Z11.3 ; Vaginal candidiasis B37.3 and Irritable bowel syndrome with diarrhea K58.0 [facility] [address] [facility] [id number] [address] [place] [address] 04 Mar, 2017 [facility] [address] [facility] [id number] [address] [place] [address] Feb, ADHD (attention deficit hype ractivity disorder), combined type F90.2 [facility] [address] [facility] [id number] [address] [place] [address] Feb, Depressive disorder, not els ewhere classified F32.9 ; Anxiety state F41.1 and ADHD (attention deficit hyperactivity disorder), combined type F90.2 [facility] [address] [facility] [id number] [address] [place] [address] Feb, Depressive disorder, not els ewhere classified F32.9 ; Anxiety state F41.1 and ADHD (attention deficit hyperactivity disorder), combined type F90.2 [facility] [address] [facility] [id number] [address] [place] [address] Feb, ADHD (attention deficit hype ractivity disorder), combined type F90.2 [facility] [address] [facility] [id number] [address] [place] [address] Jan, Other viral agents as the ca use of diseases classified elsewhere B97.89 and Acute upper respiratory infection, unspecified J06.9 [facility] [address] [facility] [id number] [address] [place] [address] Jan, ADHD (attention deficit hype ractivity disorder), combined type F90.2 ; Major depressive disorder, single episode, mild F32.0 and Anxiety disorder, unspecified type F41.9 [place] [address] [place] [id number] [place] [address] Jan, [facility] [address] [facility] [id number] [address] [place] [address] Jan, ADHD (attention deficit hype ractivity disorder), combined type F90.2 ; Major depressive disorder, single episode, mild F32.0 and Anxiety disorder, unspecified type F41.9 [facility] [address] [place] [id number] [place] [address] Dec, Irritable bowel syndrome wit h diarrhea K58.0 and Lower abdominal pain R10.30 [facility] [address] [facility] [id number] [address] [place] [address] 09 Dec, 2016 Hospital discharge follow-up Z09 ; Mesenteric adenitis I88.0 ; IBD (inflammatory bowel disease) K52.9 and Nausea R11.0 [facility] [address] [facility] [id number] [address] [place] [address] Nov, ADHD (attention deficit hype ractivity disorder), combined type F90.2 ; Major depressive disorder, single episode, mild F32.0 and Anxiety disorder, unspecified type F41.9 [facility] [address] [place] [id number] [place] [address] Nov, Anxiety state F41.1 ; ADHD ( attention deficit hyperactivity disorder), combined type F90.2 ; Major depressive disorder, single episode, mild F32.0 and Anxiety disorder, unspecified type F41.9 [facility] [address] [place] [id number] [place] [address] Oct, Anxiety state F41.1 ; ADHD ( attention deficit hyperactivity disorder), combined type F90.2 ; Major depressive disorder, single episode, mild F32.0 and Anxiety disorder, unspecified type F41.9 [place] [address] [place] [id number] [place] [address] Oct, ADHD (attention deficit hype ractivity disorder), combined type F90.2 ; Major depressive disorder, single episode, mild F32.0 and Anxiety disorder, unspecified type F41.9 [place] [address] [place] [id number] [place] [address] Oct, Major depressive disorder, s floresita episode, mild F32.0 ; Anxiety state F41.1 ; ADHD (attention deficit hyperactivity disorder), combined type F90.2 and Depressive disorder, not elsewhere classified F32.9 [facility] [address] [place] [id number] [place] [address] 16 Oct, 2016 [facility] [address] [place] [id number] [place] [address] Oct, Cellulitis L03.90 and Planta r wart of right foot B07.0 [facility] [address] [facility] [id number] [address] [place] [address] Aug, ADHD (attention deficit hype ractivity disorder), combined type F90.2 ; Major depressive disorder, single episode, mild F32.0 and Anxiety disorder, unspecified type F41.9 [facility] [address] [place] [id number] [place] [address] Aug, [facility] [address] [facility] [id number] [address] [place] [address] Jul, ADHD (attention deficit hype ractivity disorder), combined type F90.2 [facility] [address] [facility] [id number] [address] [place] [address] Jul, Mesenteric adenitis I88.0 [facility] [address] [facility] [id number] [address] [place] [address] June, [facility] [address] [facility] [id number] [address] [place] [address] June, Lower abdominal pain R10.30 [facility] [address] [facility] [id number] [address] [place] [address] [id number] June, [facility] [address] [id number] [address] [place] [phone] June, ADHD (attention deficit hype ractivity disorder), combined type F90.2 and Major depressive disorder, single episode, mild F32.0 [facility] [address] [id number] [address] [place] [phone] May, [facility] [id number] [place] [phone] May, ADHD (attention deficit hype ractivity disorder), combined type F90.2 and Major depressive disorder, single episode, mild F32.0 [facility] [address] [facility] [id number] [address] [place] [phone] Apr, Abdominal pain R10.9 and Gas troenteritis and colitis, viral A08.4 [facility] [address] [facility] [id number] [address] [place] [phone] Apr, [facility] [address] [facility] [id number] [address] [place] [phone] Mar, Acute urticaria L50.8 [facility] [address] [id number] [address] [place] [phone] Mar, [facility] [address] [facility] [id number] [address] [place] [phone] Feb, [facility] [address] [facility] [id number] [address] [place] [phone] Feb, Gastroenteritis K52.9 [facility] [address] [facility] [id number] [address] [place] [phone] Feb, Irritant contact dermatitis due to cosmetics L24.3 [facility] [address] [facility] [id number] [address] [place] [phone] Jan, [facility] [address] [facility] [id number] [place] [id number] Jan, [facility] [id number] [place] [phone] Jan, ADHD (attention deficit hype ractivity disorder), combined type F90.2 and Major depressive disorder, single episode, mild F32.0 [facility] [address] [id number] [address] [place] [phone] Dec, Flexural eczema L20.82 [address] [place] [address] [id number] [address] [place] [address] Dec, Encounter for test Z32.00 [facility] [address] [id number] [address] [place] [address] Dec, [facility] [address] [id number] [address] [place] [phone] Dec, [facility] [address] [id number] [address] [place] [phone] Dec, [facility] [address] [id number] [address] [place] [phone] Nov, Sore throat J02.9 and Pharyn gitis, unspecified etiology J02.9 [facility] [address] [id number] [address] [place] [phone] Nov, [facility] [address] [id number] [address] [place] [phone] Nov, [facility] [address] [id number] [address] [place] [address] Nov, Generalized abdominal pain R 10.84 and Slow transit constipation K59.01 [facility] [address] [id number] [place] [id number] Nov, Pharyngitis, unspecified lara ology J02.9 and Rhinitis, unspecified type J31.0 [facility] [address] [id number] [address] [place] [phone] Oct, Depressive disorder, not els ewhere classified F32.9 and ADHD (attention deficit hyperactivity disorder), combined type F90.2 [facility] [address] [id number] [address] [place] [address] Oct, [facility] [address] [id number] [address] [place] [address] Oct, [facility] [address] [id number] [address] [place] [phone] Oct, Strep throat J02.0 [facility] [address] [id number] [address] [place] [phone] Oct, [facility] [address] [id number] [address] [place] [phone] Oct, Well woman exam with routine gynecological exam Z01.419 and Screening for STD sexually transmitted disease Z11.3 [facility] [address] [id number] [address] [place] [address] Sep, ADHD (attention deficit hype ractivity disorder), combined type F90.2 ; Anxiety state F41.1 and Depressive disorder, not elsewhere classified F32.9 [facility] [address] [id number] [address] [place] [phone] Sep, ADHD (attention deficit hype ractivity disorder), combined type F90.2 and Depressive disorder, not elsewhere classified F32.9 [facility] [address] [id number] [address] [place] [phone] Aug, [facility] [address] [id number] [address] [place] [phone] Aug, ADHD (attention deficit hype ractivity disorder), combined type F90.2 and Depressive disorder, not elsewhere classified F32.9 [facility] [address] [id number] [address] [place] [phone] Aug, ADHD (attention deficit hype ractivity disorder), combined type F90.2 ; Anxiety state F41.1 and Depressive disorder, not elsewhere classified F32.9 [facility] [address] [id number] [address] [place] [phone] Aug, [facility] [address] [id number] [address] [place] [address] Aug, [facility] [address] [id number] [address] [place] [phone] Jul, ADHD (attention deficit hype ractivity disorder), combined type F90.2 ; Depressive disorder, not elsewhere classified F32.9 and Anxiety state F41.1 [facility] [address] [id number] [address] [place] [phone] Jul, [facility] [address] [id number] [address] [place] [phone] Jul, ADHD (attention deficit hype ractivity disorder), combined type F90.2 ; Anxiety state F41.1 and Depressive disorder, not elsewhere classified F32.9 [facility] [address] [id number] [address] [place] [address] June, [facility] [address] [id number] [place] [id number] June, Constipation K59.00 [facility] [address] [id number] [address] [place] [address] May, 2016 Constipation K59.00 [facility] [address] [id number] [address] [place] [address], [place] [address] 20 May, 2016 Irritable bowel syndrome wit h diarrhea K58.0 [facility] [address] [id number] [address] [place] [address], [place] [address] 15 May, 2015 [facility] [address] [id number] [address] [place] [address], [place] [address] 15 May, 2015 [facility] [address] [id number] [address] [place] [address], [place] [address] 14 May, 2014 [facility] [address] [id number] [address] [place] [address], [place] [address] May, [facility] [address] [id number] [address] [place] [address], [place] [address] 29 Jan, 2014 [facility] [address] [id number] [address] [place] [address], [place] [address] Jan, [facility] [address] [id number] [address] [place] [address], [place] [address] Jan, [facility] [address] [id number] [address] [place] [address], [place] [address] Jan, [facility] [address] [id number] [address] [place] [address], [place] [address] Jan, [facility] [address] [id number] [address] [place] [address], [place] [address] Jan, [facility] [address] [id number] [address] [place] [phone] Nov, [facility] [address] [id number] [address] [place] [address], [place] [address] Nov, [facility] [address] [id number] [address] [place] [phone] 18 Oct, 2013 [facility] [address] [id number] [address] [place] [phone] Oct, [facility] [address] [id number] [address] [place] [address], [place] [address] Sep, [facility] [address] [id number] [address] [place] [address], [place] [address] Sep, [facility] [address] [id number] [address] [place] [address], [place] [address] Aug, [facility] [address] [id number] [address] [place] [address], [place] [address] Aug, [facility] [address] [id number] [address] [place] [address], [place] [address] Aug, [facility] [address] [id number] [address] [place] [address], [place] [address] Aug, [facility] [address] [id number] [address] [place] [address], [place] [address] Aug, [facility] [address] [id number] [address] [place] [address], [place] [address] Aug, [facility] [address] [id number] [address] [place] [address], [place] [address] Aug, [facility] [address] [id number] [address] [place] [address], [place] [address] Aug, [facility] [address] [id number] [address] [place] [address], [place] [address] Jul, [facility] [address] [id number] [address] [place] [address], [place] [address] Jul, [facility] [address] [id number] [address] [place] [address], [place] [address] Jul, [facility] [address] [id number] [address] [place] [address], [place] [address] Jul, [facility] [address] [id number] [address] [place] [address], [place] [address] Jul, [facility] [address] [id number] [address] [place] [address], [place] [address] 05 Jul, 2013 [facility] [address] [id number] [address] [place] [address], [place] [address] Jul, [facility] [address] [id number] [address] [place] [address], [place] [address] Jul, [facility] [address] [id number] [address] [place] [address], [place] [address] Jul, [facility] [address] [id number] [address] [place] [address], [place] [address] June, [facility] [address] [id number] [address] [place] [address], [place] [address] June, [facility] [address] [id number] [address] [place] [address], [place] [address] May, [facility] [address] [id number] [address] [place] [address], [place] [address] May, [facility] [address] [id number] [address] [place] [address], [place] [address] May, [facility] [address] [id number] [address] [place] [address], [place] [address] May, [facility] [address] [id number] [address] [place] [address], [place] [address] May, [facility] [address] [id number] [address] [place] [address], [place] [address] May, [facility] [address] [id number] [address] [place] [address], [place] [address] May, [facility] [address] [id number] [address] [place] [address], [place] [address] May, [facility] [address] [id number] [address] [place] [address], [place] [address] May, [facility] [address] [id number] [address] [place] [address], [place] [address] May, [facility] [address] [id number] [facility] [place] [address] May, [facility] [address] [id number] [address] [place] [address], [place] [address] May, [facility] [address] [id number] [address] [place] [address], [place] [address] Apr, [facility] [address] [id number] [address] [place] [address], [place] [address] Apr, [facility] [address] [id number] [address] [place] [address], [place] [address] Apr, [facility] [address] [id number] [address] [place] [address], [place] [address] Apr, [facility] [address] [id number] [address] [place] [address], [place] [address] Mar, [facility] [address] [id number] [address] [place] [address], [place] [address] Mar, [facility] [address] [id number] [address] [place] [address], [place] [address] Mar, [facility] [address] [id number] [address] [place] [address], [place] [address] Mar, [facility] [address] [id number] [address] [place] [address], [place] [address] Mar, [facility] [address] [id number] [address] [place] [address], [place] [address] Mar, [facility] [address] [id number] [address] [place] [address], [place] [address] Mar, [facility] [address] [id number] [address] [place] [address], [place] [address] Mar, [facility] [address] [id number] [address] [place] [address], [place] [address] Mar, [facility] [address] [id number] [address] [place] [address], [place] [address] 19 Mar, 2013 [facility] [address] [id number] [address] [place] [address], [place] [address] 14 Mar, 2013 [facility] [address] [id number] [address] [place] [address], [place] [address] 14 Mar, 2013 [facility] [address] [id number] [address] [place] [address], [place] [address] Mar, [facility] [address] [id number] [address] [place] [address], [place] [address] Mar, [facility] [address] [id number] [address] [place] [address], [place] [address] Mar, [facility] [address] [id number] [address] [place] [address], [place] [address] Mar, [facility] [address] [id number] [address] [place] [address], [place] [address] Mar, [facility] [address] [id number] [address] [place] [address], [place] [address] Mar, [facility] [address] [id number] [address] [place] [address], [place] [address] Mar, [facility] [address] [id number] [address] [place] [address], [place] [address] Mar, [facility] [address] [id number] [address] [place] [address], [place] [address] Feb, [facility] [address] [id number] [address] [place] [address], [place] [address] Feb, [facility] [address] [id number] [address] [place] [address], [place] [address] Feb, [facility] [address] [id number] [address] [place] [address], [place] [address] Feb, [facility] [address] [id number] [address] [place] [address], [place] [address] Feb, [facility] [address] [id number] [facility] [place] [address] Feb, [facility] [address] [id number] [address] [place] [address], [place] [address] Feb, [facility] [address] [id number] [address] [place] [address], [place] [address] Feb, [facility] [address] [id number] [address] [place] [address], [place] [address] Feb, [facility] [address] [id number] [address] [place] [address], [place] [address] Feb, [facility] [address] [id number] [address] [place] [address], [place] [address] Feb, [facility] [address] [id number] [address] [place] [address], [place] [address] Feb, [facility] [address] [id number] [address] [place] [address], [place] [address] Feb, [facility] [address] [id number] [address] [place] [address], [place] [address] Feb, [facility] [address] [id number] [address] [place] [address], [place] [address] Feb, [facility] [address] [id number] [address] [place] [address], [place] [address] Feb, [facility] [address] [id number] [address] [place] [address], [place] [address] Feb, [facility] [address] [id number] [address] [place] [address], [place] [address] Feb, [facility] [address] [id number] [address] [place] [address], [place] [address] Feb, [facility] [address] [id number] [address] [place] [address], [place] [address] Feb, [facility] [address] [id number] [address] [place] [address], [place] [address] 07 Feb, 2013 [facility] [address] [id number] [address] [place] [address], [place] [address] Feb, [facility] [address] [id number] [address] [place] [address], [place] [address] Feb, [facility] [address] [id number] [address] [place] [address], [place] [address] Jan, [facility] [address] [id number] [address] [place] [address], [place] [address] Jan, [facility] [address] [id number] [address] [place] [address], [place] [address] Jan, [facility] [address] [id number] [address] [place] [address], [place] [address] Jan, [facility] [address] [id number] [address] [place] [address], [place] [address] Jan, [facility] [address] [id number] [address] [place] [address], [place] [address] Jan, [facility] [address] [id number] [address] [place] [address], [place] [address] Jan, [facility] [address] [id number] [address] [place] [address], [place] [address] 17 Jan, 2013 [facility] [address] [id number] [address] [place] [address], [place] [address] 17 Jan, 2013 [facility] [address] [id number] [address] [place] [address], [place] [address] Jan, [facility] [address] [id number] [address] [place] [address], [place] [address] Jan, [facility] [address] [id number] [address] [place] [address], [place] [address] 04 Jan, 2013 [facility] [address] [id number] [address] [place] [address], [place] [address] Jan, [facility] [address] [id number] [address] [place] [address], [place] [address] Dec, [facility] [address] [id number] [address] [place] [address], [place] [address] Dec, [facility] [address] [id number] [address] [place] [address], [place] [address] Dec, [facility] [address] [id number] [address] [place] [address], [place] [address] Dec, [facility] [address] [id number] [address] [place] [address], [place] [address] Dec, [facility] [address] [id number] [address] [place] [address], [place] [address] Dec, [facility] [address] [id number] [address] [place] [address], [place] [address] Nov, [facility] [address] [id number] [address] [place] [address], [place] [id number] Nov, [facility] [address] [id number] [address] [place] [address], [place] [id number] Nov, [facility] [address] [id number] [address] [place] [address], [place] [id number] Nov, [facility] [address] [id number] [address] [place] [address], [place] [id number] Nov, [facility] [address] [id number] [address] [place] [id number] Nov, [facility] [address] [id number] [address] [place] [address], [place] [id number] 28 Oct, 2012 [facility] [address] [id number] [address] [place] [address], [place] [id number] 27 Oct, 2012 [facility] [address] [id number] [address] [place] [address], [place] [id number] 26 Oct, 2012 [facility] [address] [id number] [address] [place] [id number] Oct, [facility] [address] [facility] [id number] [address] [place] [id number] Oct, [facility] [address] [facility] [id number] [address] [place] [phone] Oct, [facility] [address] [facility] [id number] [address] [place] [phone] Oct, IMMUNIZATIONS No Known Immunizations SOCIAL HISTORY [...]
--- OUTSIDE RECORDS SUMMARY | 2019-06-25 21:17 | XMS REPORT ---
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 Professor Name Role Phone RHIANNON GENARO Unavailable PROBLEMS Type Condition ICD9-CM Code [id number] Code Onset Dates Condition S tatus SNOMED Code Problem ADHD (attention deficit hyperactivity disorder), combi amparo type F90.2 Active 24611905 Problem Unspecified mood [affective] disorder F39 Active 15428266 Problem Intrinsic atopic dermatitis L20.84 Ac tive 23329882 Problem Slow transit constipation K59.01 Acti ve 51308324 Problem Anxiety disorder, unspecified type F41.9 Active 194541897 Problem Major depressive disorder, single episode, mild F3 2.0 Active 60892941 Problem Irritable bowel syndrome with diarrhea K58.0 Active [id number] ALLERGIES No Information ENCOUNTERS Encounter Location Date Diagnosis [facility] [address] [place] [id number] [place] [id number] May, [facility] [address] [id number] [place] [id number] May, Third trimester Z3 4.93 [facility] [id number] [place] [id number] May, [facility] [address] [facility] [id number] [address] [place] [phone] May, [facility] [address] [id number] [place] [id number] May, [facility] [id number] [place] [id number] Apr, [facility] [id number] [place] [id number] Apr, Third trimester Z3 4.93 and Gestational diabetes mellitus (GDM) in third trimester, gestational diabetes method of control unspecified O24.419 [facility] [id number] [place] [id number] Apr, [facility] [id number] [place] [id number] Apr, Diet controlled gestational diabetes mellitus (GDM) in third trimester O24.410 [facility] [id number] [place] [id number] 11 Apr, 2019 30 weeks gestation of pregna ncy Z3A.30 ; Diet controlled gestational diabetes mellitus (GDM) in third trimester O24.410 and Encounter for immunization Z23 [facility] [id number] [place] [phone] Apr, [place] [address] [address] Apr, Gestational diabetes O24.419 [facility] [id number] [place] [id number] Apr, [facility] [address] [place] [id number] [place] [id number] Apr, Abnormal glucose tolerance i n O99.810 [place] [id number] [place] [id number] Mar, Abnormal glucose tolerance i n O99.810 [facility] [id number] [place] [id number] Mar, Second trimester Z 33.1 ; Nausea and vomiting during O21.9 and 27 weeks gestation of Z3A.27 [facility] [address] [id number] [place] [id number] Mar, [facility] [id number] [place] [id number] 07 Mar, 2019 Non-intractable vomiting wit h nausea, unspecified vomiting type R11.2 [facility] [address] [facility] [id number] [address] [place] [id number] Feb, [facility] [address] [facility] [id number] [address] [place] [id number] 20 Feb, 2019 Second trimester Z 33.1 [facility] [address] [facility] [id number] [address] [place] [id number] 13 Feb, 2019 Second trimester Z 34.92 ; 21 weeks gestation of Z3A.21 and Exposure to STD Z20.2 [facility] [address] [facility] [id number] [address] [place] [id number] 07 Feb, 2019 Second trimester Z 33.1 [facility] [address] [facility] [id number] [address] [place] [id number] 05 Feb, 2019 Non-intractable vomiting wit h nausea, unspecified vomiting type R11.2 [facility] [address] [facility] [id number] [address] [place] [phone] 31 Jan, 2019 [facility] [address] [facility] [id number] [address] [place] [phone] Jan, [facility] [address] [facility] [id number] [address] [place] [phone] Jan, First trimester Z3 4.91 [facility] [address] [facility] [id number] [address] [place] [id number] 16 Jan, 2019 Second trimester Z 34.92 and Intrinsic atopic dermatitis L20.84 [facility] [address] [facility] [id number] [address] [place] [id number] Dec, First trimester Z3 4.91 [facility] [address] [facility] [id number] [address] [place] [phone] Dec, Second trimester Z 34.92 and Family history of neural tube defect Z82.0 [facility] [address] [facility] [id number] [address] [place] [id number] Dec, [facility] [address] [facility] [id number] [address] [place] [phone] Dec, Second trimester Z 34.92 ; Family history of neural tube defect Z82.0 ; History of asthma Z87.09 and Wheezing R06.2 [facility] [address] [facility] [id number] [address] [place] [id number] 08 Dec, 2018 [facility] [address] [place] [id number] [address] [address] Dec, [facility] [address] [facility] [id number] [address] [place] [id number] Nov, care, subsequent pr egnancy in first trimester Z34.81 [facility] [address] [id number] [place] [id number] 24 Nov, 2018 First trimester Z3 4.91 ; 10 weeks gestation of Z3A.10 and Nausea and vomiting during O21.9 [facility] [address] [id number] [place] [id number] 14 Nov, 2018 care, subsequent pr egnancy in first trimester Z34.81 [facility] [address] [id number] [place] [id number] 05 Nov, 2018 Vomiting O21.9 [facility] [address] [id number] [place] [id number] 26 Oct, 2018 care, subsequent pr egnancy in first trimester Z34.81 and 6 weeks gestation of Z3A.01 [facility] [address] [facility] [id number] [address] [place] [id number] Oct, [facility] [address] [id number] [place] [phone] Oct, Heat rash L74.0 [facility] [address] [facility] [id number] [address] [place] [phone] Aug, UTI symptoms R39.9 [facility] [address] [id number] [place] [id number] Aug, [facility] [address] [facility] [id number] [address] [place] [phone] Aug, UTI symptoms R39.9 [facility] [address] [facility] [id number] [address] [place] [phone] Aug, Hematuria, unspecified type R31.9 [facility] [address] [facility] [id number] [address] [place] [id number] Jul, Sore throat J02.9 ; UTI symp toms R39.9 and Hematuria, unspecified type R31.9 [facility] [address] [facility] [id number] [address] [place] [phone] June, Irritable bowel syndrome wit h diarrhea K58.0 and Major depressive disorder, single episode, mild F32.0 [facility] [address] [id number] [place] [id number] June, ADHD (attention deficit hype ractivity disorder), combined type F90.2 ; Anxiety disorder, unspecified type F41.9 and Unspecified mood [affective] disorder F39 [facility] [id number] [place] [id number] May, ADHD (attention deficit hype ractivity disorder), combined type F90.2 ; Anxiety disorder, unspecified type F41.9 ; Unspecified mood [affective] disorder F39 and 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 [facility] [address] [facility] [id number] [address] [place] [id number] May, Slow transit constipation K5 9.01 [facility] [address] [facility] [id number] [address] [place] [id number] May, ADHD (attention deficit hype ractivity disorder), combined type F90.2 [facility] [address] [facility] [id number] [address] [place] [id number] May, [facility] [address] [id number] [place] [phone] May, Abdominal pain R10.9 [facility] [address] [facility] [id number] [address] [place] [id number] Apr, [facility] [address] [facility] [id number] [address] [place] [id number] Apr, [facility] [id number] [place] [phone] Apr, ADHD (attention deficit hype ractivity disorder), combined type F90.2 [facility] [address] [facility] [id number] [address] [place] [id number] Apr, Abdominal pain R10.9 [facility] [address] [facility] [id number] [address] [place] [phone] Apr, [facility] [id number] [place] [phone] Mar, [facility] [id number] [place] [phone] Mar, ADHD (attention deficit hype ractivity disorder), combined type F90.2 ; Anxiety disorder, unspecified type F41.9 and Unspecified mood [affective] disorder F39 [facility] [address] [id number] [place] [id number] Mar, Viral gastroenteritis A08.4 and Slow transit constipation K59.01 [facility] [address] [facility] [id number] [address] [place] [phone] Mar, Viral gastroenteritis A08.4 [facility] [address] [id number] [place] [id number] Mar, ADHD (attention deficit hype ractivity disorder), combined type F90.2 [facility] [address] [facility] [id number] [address] [place] [id number] Feb, Slow transit constipation K5 9.01 ; Missed period N92.6 and Nausea R11.0 [place] [id number] [facility] [id number] [address] [place] [id number] Feb, ADHD (attention deficit hype ractivity disorder), combined type F90.2 [facility] [address] [facility] [id number] [address] [place] [id number] Jan, Nausea R11.0 and Viral upper respiratory tract infection J06.9 [place] [address] [facility] [id number] [address] [place] [phone] Jan, [place] [address] [facility] [id number] [address] [place] [id number] Jan, ADHD (attention deficit hype ractivity disorder), combined type F90.2 ; Anxiety disorder, unspecified type F41.9 and Unspecified mood [affective] disorder F39 [place] [address] [facility] [id number] [address] [place] [id number] Jan, Well woman exam with routine gynecological exam Z01.419 ; Routine screening for STI (sexually transmitted infection) Z11.3 and Vaginal jose B37.3 [place] [address] [facility] [id number] [address] [place] [id number] Dec, [place] [address] [facility] [id number] [address] [place] [id number] Dec, [place] [address] [facility] [id number] [address] [place] [phone] Dec, ADHD (attention deficit hype ractivity disorder), combined type F90.2 ; Anxiety disorder, unspecified type F41.9 and Unspecified mood [affective] disorder F39 [place] [address] [facility] [id number] [address] [place] [phone] Dec, Unspecified mood [affective] disorder F39 ; Anxiety disorder, unspecified type F41.9 and ADHD (attention deficit hyperactivity disorder), combined type F90.2 [facility] [address] [facility] [id number] [address] [place] [phone] Nov, Other specified bacterial ag ents as the cause of diseases classified elsewhere B96.89 and Otitis media, unspecified, bilateral H66.93 [facility] [address] [facility] [id number] [address] [place] [id number] Nov, Sore throat J02.9 and Acute nasopharyngitis J00 [facility] [address] [facility] [id number] [address] [place] [id number] Nov, ADHD (attention deficit hype ractivity disorder), combined type F90.2 ; Anxiety disorder, unspecified type F41.9 and Unspecified mood [affective] disorder F39 [place] [address] [facility] [id number] [address] [place] [id number] Oct, ADHD (attention deficit hype ractivity disorder), combined type F90.2 [facility] [address] [id number] [place] [id number] Oct, ADHD (attention deficit hype ractivity disorder), combined type F90.2 ; Anxiety disorder, unspecified type F41.9 and Unspecified mood [affective] disorder F39 [facility] [address] [facility] [id number] [address] [place] [id number] Sep, ADHD (attention deficit hype ractivity disorder), combined type F90.2 [facility] [address] [facility] [id number] [address] [place] [id number] Sep, [facility] [address] [facility] [id number] [address] [place] [id number] Aug, ADHD (attention deficit hype ractivity disorder), combined type F90.2 ; Major depressive disorder, single episode, mild F32.0 and Anxiety disorder, unspecified type F41.9 [facility] [address] [facility] [id number] [address] [place] [id number] Aug, Sore throat J02.9 ; Other sp ecified bacterial agents as the cause of diseases classified elsewhere B96.89 and Acute tonsillitis due to other specified organisms J03.80 [facility] [address] [id number] [address] [place] [id number] Aug, ADHD (attention deficit hype ractivity disorder), combined type F90.2 [facility] [address] [id number] [address] [place] [phone] Jul, ADHD (attention deficit hype ractivity disorder), combined type F90.2 [facility] [address] [id number] [address] [place] [id number] June, ADHD (attention deficit hype ractivity disorder), combined type F90.2 ; Major depressive disorder, single episode, mild F32.0 and Anxiety disorder, unspecified type F41.9 [facility] [address] [id number] [address] [place] [phone] June, [facility] [address] [facility] [id number] [address] [place] [phone] June, ADHD (attention deficit hype ractivity disorder), combined type F90.2 [facility] [address] [id number] [address] [place] [phone] May, [facility] [address] [id number] [address] [place] [phone] May, ADHD (attention deficit hype ractivity disorder), combined type F90.2 ; Major depressive disorder, single episode, mild F32.0 and Anxiety disorder, unspecified type F41.9 [facility] [address] [id number] [address] [place] [phone] May, Anxiety disorder, unspecifie d type F41.9 [facility] [address] [id number] [address] [place] [id number] Apr, [facility] [address] [facility] [id number] [address] [place] [id number] Apr, Anxiety disorder, unspecifie d type F41.9 [facility] [address] [facility] [id number] [address] [place] [id number] Apr, Anxiety disorder, unspecifie d type F41.9 ; Major depressive disorder, single episode, mild F32.0 and ADHD (attention deficit hyperactivity disorder), combined type F90.2 [facility] [address] [facility] [id number] [address] [place] [id number] Apr, [facility] [address] [facility] [id number] [address] [place] [id number] Apr, ADHD (attention deficit hype ractivity disorder), combined type F90.2 ; Anxiety state F41.1 ; Depressive disorder, not elsewhere classified F32.9 ; Major depressive disorder, single episode, mild F32.0 and Anxiety disorder, unspecified type F41.9 [facility] [address] [facility] [id number] [address] [place] [id number] 28 Mar, 2017 ADHD (attention deficit hype ractivity disorder), combined type F90.2 [facility] [address] [facility] [id number] [address] [place] [id number] 20 Mar, 2017 Nausea R11.0 [facility] [address] [facility] [id number] [address] [place] [id number] 13 Mar, 2017 Screening for STD sexually t ransmitted disease Z11.3 ; Vaginal candidiasis B37.3 and Irritable bowel syndrome with diarrhea K58.0 [facility] [address] [facility] [id number] [address] [place] [id number] 04 Mar, 2017 [facility] [address] [facility] [id number] [address] [place] [id number] Feb, ADHD (attention deficit hype ractivity disorder), combined type F90.2 [facility] [address] [facility] [id number] [address] [place] [phone] Feb, Depressive disorder, not els ewhere classified F32.9 ; Anxiety state F41.1 and ADHD (attention deficit hyperactivity disorder), combined type F90.2 [facility] [address] [facility] [id number] [address] [place] [phone] Feb, Depressive disorder, not els ewhere classified F32.9 ; Anxiety state F41.1 and ADHD (attention deficit hyperactivity disorder), combined type F90.2 [facility] [address] [facility] [id number] [address] [place] [id number] Feb, ADHD (attention deficit hype ractivity disorder), combined type F90.2 [facility] [address] [facility] [id number] [address] [place] [id number] Jan, Other viral agents as the ca use of diseases classified elsewhere B97.89 and Acute upper respiratory infection, unspecified J06.9 [facility] [address] [facility] [id number] [address] [place] [id number] Jan, ADHD (attention deficit hype ractivity disorder), combined type F90.2 ; Major depressive disorder, single episode, mild F32.0 and Anxiety disorder, unspecified type F41.9 [place] [address] [place] [id number] [place] [phone] Jan, [facility] [address] [facility] [id number] [address] [place] [id number] Jan, ADHD (attention deficit hype ractivity disorder), combined type F90.2 ; Major depressive disorder, single episode, mild F32.0 and Anxiety disorder, unspecified type F41.9 [facility] [address] [place] [id number] [place] [id number] Dec, Irritable bowel syndrome wit h diarrhea K58.0 and Lower abdominal pain R10.30 [facility] [address] [facility] [id number] [address] [place] [id number] 09 Dec, 2016 Hospital discharge follow-up Z09 ; Mesenteric adenitis I88.0 ; IBD (inflammatory bowel disease) K52.9 and Nausea R11.0 [facility] [address] [facility] [id number] [address] [place] [id number] Nov, ADHD (attention deficit hype ractivity disorder), combined type F90.2 ; Major depressive disorder, single episode, mild F32.0 and Anxiety disorder, unspecified type F41.9 [facility] [address] [place] [id number] [place] [phone] Nov, Anxiety state F41.1 ; ADHD ( attention deficit hyperactivity disorder), combined type F90.2 ; Major depressive disorder, single episode, mild F32.0 and Anxiety disorder, unspecified type F41.9 [facility] [address] [place] [id number] [place] [phone] Oct, Anxiety state F41.1 ; ADHD ( attention deficit hyperactivity disorder), combined type F90.2 ; Major depressive disorder, single episode, mild F32.0 and Anxiety disorder, unspecified type F41.9 [place] [address] [place] [id number] [place] [phone] Oct, ADHD (attention deficit hype ractivity disorder), combined type F90.2 ; Major depressive disorder, single episode, mild F32.0 and Anxiety disorder, unspecified type F41.9 [place] [address] [place] [id number] [place] [phone] Oct, Major depressive disorder, s floresita episode, mild F32.0 ; Anxiety state F41.1 ; ADHD (attention deficit hyperactivity disorder), combined type F90.2 and Depressive disorder, not elsewhere classified F32.9 [facility] [address] [place] [id number] [place] [id number] 16 Oct, 2016 [facility] [address] [place] [place] [id number] [address] [place] [address] Oct, Cellulitis L03.90 and Planta r wart of right foot B07.0 [facility] [address] [facility] [id number] [address] [place] [id number] Aug, ADHD (attention deficit hype ractivity disorder), combined type F90.2 ; Major depressive disorder, single episode, mild F32.0 and Anxiety disorder, unspecified type F41.9 [facility] [address] [place] [id number] [address] [place] [address] Aug, [facility] [address] [facility] [id number] [address] [place] [id number] Jul, ADHD (attention deficit hype ractivity disorder), combined type F90.2 [facility] [address] [facility] [id number] [address] [place] [address] Jul, Mesenteric adenitis I88.0 [facility] [address] [facility] [id number] [address] [place] [id number] June, [facility] [address] [facility] [id number] [address] [place] [address] June, Lower abdominal pain R10.30 [facility] [address] [facility] [id number] [address] [place] [id number] June, [facility] [address] [place] [id number] [address] [place] [address] June, ADHD (attention deficit hype ractivity disorder), combined type F90.2 and Major depressive disorder, single episode, mild F32.0 [facility] [address] [place] [place] [id number] [address] [place] [phone] May, [facility] [address] [place] [place] [id number] [place] [phone] May, ADHD (attention deficit hype ractivity disorder), combined type F90.2 and Major depressive disorder, single episode, mild F32.0 [facility] [address] [facility] [id number] [address] [place] [address] Apr, Abdominal pain R10.9 and Gas troenteritis and colitis, viral A08.4 [facility] [address] [facility] [id number] [address] [place] [id number] Apr, [facility] [address] [facility] [id number] [address] [place] [address] Mar, Acute urticaria L50.8 [facility] [address] [place] [id number] [address] [place] [id number] Mar, [facility] [address] [facility] [id number] [address] [place] [id number] Feb, [facility] [address] [facility] [id number] [address] [place] [address] Feb, Gastroenteritis K52.9 [facility] [address] [facility] [id number] [address] [place] [id number] Feb, Irritant contact dermatitis due to cosmetics L24.3 [facility] [address] [facility] [id number] [address] [place] [id number] Jan, [facility] [address] [facility] [id number] [place] [address] Jan, [facility] [address] [place] [id number] [place] [address] Jan, ADHD (attention deficit hype ractivity disorder), combined type F90.2 and Major depressive disorder, single episode, mild F32.0 [facility] [address] [place] [place] [id number] [address] [place] [address] Dec, Flexural eczema L20.82 [place] [address] [place] [id number] [address] [place] [id number] Dec, Encounter for test Z32.00 [facility] [address] [place] [id number] [address] [place] [id number] Dec, [facility] [address] [place] [place] [id number] [address] [place] [phone] Dec, [facility] [address] [place] [place] [id number] [address] [place] [address] Dec, [facility] [address] [place] [place] [id number] [address] [place] [address] Nov, Sore throat J02.9 and Pharyn gitis, unspecified etiology J02.9 [facility] [address] [place] [id number] [address] [place] [phone] Nov, [facility] [address] [id number] [address] [place] [address] Nov, [facility] [address] [id number] [address] [place] [id number] Nov, Generalized abdominal pain R 10.84 and Slow transit constipation K59.01 [facility] [address] [id number] [place] [id number] Nov, Pharyngitis, unspecified lara ology J02.9 and Rhinitis, unspecified type J31.0 [facility] [address] [id number] [address] [place] [address] Oct, Depressive disorder, not els ewhere classified F32.9 and ADHD (attention deficit hyperactivity disorder), combined type F90.2 [facility] [address] [id number] [address] [place] [id number] Oct, [facility] [address] [id number] [address] [place] [id number] Oct, [facility] [address] [id number] [address] [place] [id number] Oct, Strep throat J02.0 [facility] [address] [id number] [address] [place] [address] Oct, [facility] [address] [id number] [address] [place] [address] Oct, Well woman exam with routine gynecological exam Z01.419 and Screening for STD sexually transmitted disease Z11.3 [facility] [address] [id number] [address] [place] [id number] Sep, ADHD (attention deficit hype ractivity disorder), combined type F90.2 ; Anxiety state F41.1 and Depressive disorder, not elsewhere classified F32.9 [facility] [address] [id number] [address] [place] [id number] Sep, ADHD (attention deficit hype ractivity disorder), combined type F90.2 and Depressive disorder, not elsewhere classified F32.9 [facility] [address] [id number] [address] [place] [id number] Aug, [facility] [address] [id number] [address] [place] [id number] Aug, ADHD (attention deficit hype ractivity disorder), combined type F90.2 and Depressive disorder, not elsewhere classified F32.9 [facility] [address] [id number] [address] [place] [id number] Aug, ADHD (attention deficit hype ractivity disorder), combined type F90.2 ; Anxiety state F41.1 and Depressive disorder, not elsewhere classified F32.9 [facility] [address] [id number] [address] [place] [phone] Aug, [facility] [address] [id number] [address] [place] [id number] Aug, [facility] [address] [id number] [address] [place] [id number] Jul, ADHD (attention deficit hype ractivity disorder), combined type F90.2 ; Depressive disorder, not elsewhere classified F32.9 and Anxiety state F41.1 [facility] [address] [id number] [address] [place] [id number] Jul, [facility] [address] [id number] [address] [place] [id number] Jul, ADHD (attention deficit hype ractivity disorder), combined type F90.2 ; Anxiety state F41.1 and Depressive disorder, not elsewhere classified F32.9 [facility] [address] [id number] [address] [place] [address] June, [facility] [address] [id number] [place] [id number] June, Constipation K59.00 [facility] [address] [id number] [address] [place] [address] May, 2016 Constipation K59.00 [facility] [address] [id number] [address] [place] [address], [place] [address] 20 May, 2016 Irritable bowel syndrome wit h diarrhea K58.0 [facility] [address] [id number] [address] [place] [address], [place] [address] 15 May, 2015 [facility] [address] [id number] [address] [place] [address], [place] [address] 15 May, 2015 [facility] [address] [id number] [address] [place] [address], [place] [address] 14 May, 2014 [facility] [address] [id number] [address] [place] [address], [place] [address] May, [facility] [address] [id number] [address] [place] [address], [place] [address] 29 Jan, 2014 [facility] [address] [id number] [address] [place] [address], [place] [address] Jan, [facility] [address] [id number] [address] [place] [address], [place] [address] Jan, [facility] [address] [id number] [address] [place] [address], [place] [address] Jan, [facility] [address] [id number] [address] [place] [address], [place] [address] Jan, [facility] [address] [id number] [address] [place] [address], [place] [address] Jan, [facility] [address] [id number] [address] [place] [phone] Nov, [facility] [address] [id number] [address] [place] [address], [place] [address] Nov, [facility] [address] [id number] [address] [place] [id number] 18 Oct, 2013 [facility] [address] [id number] [address] [place] [id number] Oct, [facility] [address] [id number] [address] [place] [address], [place] [address] Sep, [facility] [address] [id number] [address] [place] [address], [place] [address] Sep, [facility] [address] [id number] [address] [place] [address], [place] [address] Aug, [facility] [address] [id number] [address] [place] [address], [place] [address] Aug, [facility] [address] [id number] [address] [place] [address], [place] [address] Aug, [facility] [address] [id number] [address] [place] [address], [place] [address] Aug, [facility] [address] [id number] [address] [place] [address], [place] [address] Aug, [facility] [address] [id number] [address] [place] [address], [place] [address] Aug, [facility] [address] [id number] [address] [place] [address], [place] [address] Aug, [facility] [address] [id number] [address] [place] [address], [place] [address] Aug, [facility] [address] [id number] [address] [place] [address], [place] [address] Jul, [facility] [address] [id number] [address] [place] [address], [place] [address] Jul, [facility] [address] [id number] [address] [place] [address], [place] [address] Jul, [facility] [address] [id number] [address] [place] [address], [place] [address] Jul, [facility] [address] [id number] [address] [place] [address], [place] [address] Jul, [facility] [address] [id number] [address] [place] [address], [place] [address] 05 Jul, 2013 [facility] [address] [id number] [address] [place] [address], [place] [address] Jul, [facility] [address] [id number] [address] [place] [address], [place] [address] Jul, [facility] [address] [id number] [address] [place] [address], [place] [address] Jul, [facility] [address] [id number] [address] [place] [address], [place] [address] June, [facility] [address] [id number] [address] [place] [address], [place] [address] June, [facility] [address] [id number] [address] [place] [address], [place] [address] May, [facility] [address] [id number] [address] [place] [address], [place] [address] May, [facility] [address] [id number] [address] [place] [address], [place] [address] May, [facility] [address] [id number] [address] [place] [address], [place] [address] May, [facility] [address] [id number] [address] [place] [address], [place] [address] May, [facility] [address] [id number] [address] [place] [address], [place] [address] May, [facility] [address] [id number] [address] [place] [address], [place] [address] May, [facility] [address] [id number] [address] [place] [address], [place] [address] May, [facility] [address] [id number] [address] [place] [address], [place] [address] May, [facility] [address] [id number] [address] [place] [address], [place] [address] May, [facility] [address] [id number] [facility] [place] [address] May, [facility] [address] [id number] [address] [place] [address], [place] [address] May, [facility] [address] [id number] [address] [place] [address], [place] [address] Apr, [facility] [address] [id number] [address] [place] [address], [place] [address] Apr, [facility] [address] [id number] [address] [place] [address], [place] [address] Apr, [facility] [address] [id number] [address] [place] [address], [place] [address] Apr, [facility] [address] [id number] [address] [place] [address], [place] [address] Mar, [facility] [address] [id number] [address] [place] [address], [place] [address] Mar, [facility] [address] [id number] [address] [place] [address], [place] [address] Mar, [facility] [address] [id number] [address] [place] [address], [place] [address] Mar, [facility] [address] [id number] [address] [place] [address], [place] [address] Mar, [facility] [address] [id number] [address] [place] [address], [place] [address] Mar, [facility] [address] [id number] [address] [place] [address], [place] [address] Mar, [facility] [address] [id number] [address] [place] [address], [place] [address] Mar, [facility] [address] [id number] [address] [place] [address], [place] [address] Mar, [facility] [address] [id number] [address] [place] [address], [place] [address] 19 Mar, 2013 [facility] [address] [id number] [address] [place] [address], [place] [address] 14 Mar, 2013 [facility] [address] [id number] [address] [place] [address], [place] [address] 14 Mar, 2013 [facility] [address] [id number] [address] [place] [address], [place] [address] Mar, [facility] [address] [id number] [address] [place] [address], [place] [address] Mar, [facility] [address] [id number] [address] [place] [address], [place] [address] Mar, [facility] [address] [id number] [address] [place] [address], [place] [address] Mar, [facility] [address] [id number] [address] [place] [address], [place] [address] Mar, [facility] [address] [id number] [address] [place] [address], [place] [address] Mar, [facility] [address] [id number] [address] [place] [address], [place] [address] Mar, [facility] [address] [id number] [address] [place] [address], [place] [address] Mar, [facility] [address] [id number] [address] [place] [address], [place] [address] Feb, [facility] [address] [id number] [address] [place] [address], [place] [address] Feb, [facility] [address] [id number] [address] [place] [address], [place] [address] Feb, [facility] [address] [id number] [address] [place] [address], [place] [address] Feb, [facility] [address] [id number] [address] [place] [address], [place] [address] Feb, [facility] [address] [id number] [facility] [place] [address] Feb, [facility] [address] [id number] [address] [place] [address], [place] [address] Feb, [facility] [address] [id number] [address] [place] [address], [place] [address] Feb, [facility] [address] [id number] [address] [place] [address], [place] [address] Feb, [facility] [address] [id number] [address] [place] [address], [place] [address] Feb, [facility] [address] [id number] [address] [place] [address], [place] [address] Feb, [facility] [address] [id number] [address] [place] [address], [place] [address] Feb, [facility] [address] [id number] [address] [place] [address], [place] [address] Feb, [facility] [address] [id number] [address] [place] [address], [place] [address] Feb, [facility] [address] [id number] [address] [place] [address], [place] [address] Feb, [facility] [address] [id number] [address] [place] [address], [place] [address] Feb, [facility] [address] [id number] [address] [place] [address], [place] [address] Feb, [facility] [address] [id number] [address] [place] [address], [place] [address] Feb, [facility] [address] [id number] [address] [place] [address], [place] [address] Feb, [facility] [address] [id number] [address] [place] [address], [place] [address] Feb, [facility] [address] [id number] [address] [place] [address], [place] [address] 07 Feb, 2013 [facility] [address] [id number] [address] [place] [address], [place] [address] Feb, [facility] [address] [id number] [address] [place] [address], [place] [address] Feb, [facility] [address] [id number] [address] [place] [address], [place] [address] Jan, [facility] [address] [id number] [address] [place] [address], [place] [address] Jan, [facility] [address] [id number] [address] [place] [address], [place] [address] Jan, [facility] [address] [id number] [address] [place] [address], [place] [address] Jan, [facility] [address] [id number] [address] [place] [address], [place] [address] Jan, [facility] [address] [id number] [address] [place] [address], [place] [address] Jan, [facility] [address] [id number] [address] [place] [address], [place] [address] Jan, [facility] [address] [id number] [address] [place] [address], [place] [address] 17 Jan, 2013 [facility] [address] [id number] [address] [place] [address], [place] [address] 17 Jan, 2013 [facility] [address] [id number] [address] [place] [address], [place] [address] Jan, [facility] [address] [id number] [address] [place] [address], [place] [address] Jan, [facility] [address] [id number] [address] [place] [address], [place] [address] 04 Jan, 2013 [facility] [address] [id number] [address] [place] [address], [place] [address] Jan, [facility] [address] [id number] [address] [place] [address], [place] [address] Dec, [facility] [address] [id number] [address] [place] [address], [place] [address] Dec, [facility] [address] [id number] [address] [place] [address], [place] [address] Dec, [facility] [address] [id number] [address] [place] [address], [place] [address] Dec, [facility] [address] [id number] [address] [place] [address], [place] [address] Dec, [facility] [address] [id number] [address] [place] [address], [place] [address] Dec, [facility] [address] [id number] [address] [place] [address], [place] [address] Nov, [facility] [address] [id number] [address] [place] [address], [place] [address] Nov, [facility] [address] [id number] [address] [place] [address], [place] [address] Nov, [facility] [address] [id number] [address] [place] [address], [place] [address] Nov, [facility] [address] [id number] [address] [place] [address], [place] [address] Nov, [facility] [address] [id number] [address] [place] [phone] Nov, [facility] [address] [id number] [address] [place] [address], [place] [address] 28 Oct, 2012 [facility] [address] [id number] [address] [place] [address], [place] [address] 27 Oct, 2012 [facility] [address] [id number] [address] [place] [address], [place] [address] 26 Oct, 2012 [facility] [address] [id number] [address] [place] [phone] Oct, [facility] [address] [facility] [id number] [address] [address] Oct, [facility] [address] [facility] [id number] [address] [place] [phone] Oct, [facility] [address] [facility] [id number] [address] [place] [phone] 13 Oct, 2012 IMMUNIZATIONS Vaccine Route Administration Date Status PRIVATE TDAP (ADACEL) Unknown Mar 06, 2013 Administer ed SOCIAL HISTORY Never Assessed REASON FOR VISIT PLAN OF CARE VITAL SIGNS Height 59 in 2013-03-06 Weight 135.11 lbs 2013-03-06 Temperature 97.5 degrees Fahrenheit 2013-03-06 Heart Rate 88 bpm 2013-03-06 Respiratory Rate 24 2013-03-06 Blood pressure systolic 118 mmHg 2013-03-06 Blood pressure diastolic 78 mmHg 2013-03-06 MEDICATIONS Unknown Medications RESULTS No Results PROCEDURES Procedure Date Ordered Result Body Site OB US, FOLLOW-UP, PER FETUS Mar 06, 2013 URINE-NO MICRO Mar 06, 2013 INSTRUCTIONS MEDICATIONS ADMINISTERED No Known Medications MEDICAL [...]
--- OUTSIDE RECORDS SUMMARY | 2019-06-25 21:18 | XMS REPORT ---
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 Name Role Phone RHIANNON GENARO Unavailable PROBLEMS Type Condition ICD9-CM Code [id number] Code Onset Dates Condition S tatus SNOMED Code Problem ADHD (attention deficit hyperactivity disorder), combi amparo type F90.2 Active 31170298 Problem Unspecified mood [affective] disorder F39 Active 35246551 Problem Intrinsic atopic dermatitis L20.84 Ac tive 54894519 Problem Slow transit constipation K59.01 Acti ve 23785210 Problem Anxiety disorder, unspecified type F41.9 Active 030023257 Problem Major depressive disorder, single episode, mild F3 2.0 Active 52269761 Problem Irritable bowel syndrome with diarrhea K58.0 Active 404080628 ALLERGIES No Information ENCOUNTERS Encounter Location Date Diagnosis [place] [address] [place] [id number] [place] [phone] May, [place] [address] [place] [phone] May, [place] [address] [place] [id number] [place] [id number] May, [facility], [place] [address] [place] [phone] Apr, [place] [address] [place] [phone] Apr, Third trimester Z3 4.93 and Gestational diabetes mellitus (GDM) in third trimester, gestational diabetes method of control unspecified O24.419 [facility], [place] [address] [place] [id number] [place] [id number] Apr, [facility] [place] [address] [place] [id number] [place] [id number] 12 Apr, 2019 Diet controlled gestational diabetes mellitus (GDM) in third trimester O24.410 [place] [address] [address] 11 Apr, 2019 30 weeks gestation of pregna ncy Z3A.30 ; Diet controlled gestational diabetes mellitus (GDM) in third trimester O24.410 and Encounter for immunization Z23 [place] [address] [address] 05 Apr, 2019 [place] [address] [address] 04 Apr, 2019 Gestational diabetes O24.419 [place] [address] [address] 03 Apr, 2019 [place] [address] [address] Apr, Abnormal glucose tolerance i n O99.810 [place] [address] [address] Mar, Abnormal glucose tolerance i n O99.810 [place] [address] [place] [id number] [place] [phone] Mar, Second trimester Z 33.1 ; Nausea and vomiting during O21.9 and 27 weeks gestation of Z3A.27 [place] [address] [place] [id number] [place] [phone] Mar, [facility] [address] [place] [id number] [place] [phone] Mar, Non-intractable vomiting wit h nausea, unspecified vomiting type R11.2 [place] [address] [place] [id number] [place] [phone] Feb, [place] [address] [address] Feb, Second trimester Z 33.1 [facility], [place] [address] [place] [id number] [place] [phone] 13 Feb, 2019 Second trimester Z 34.92 ; 21 weeks gestation of Z3A.21 and Exposure to STD Z20.2 [facility], [place] [address] [place] [id number] [place] [phone] 07 Feb, 2019 Second trimester Z 33.1 [facility] [address] [place] [id number] [place] [phone] 05 Feb, 2019 Non-intractable vomiting wit h nausea, unspecified vomiting type R11.2 [place] [address] [address] 31 Jan, 2019 [facility], [place] [address] [place] [id number] [place] [phone] Jan, [place] [address] [address] Jan, First trimester Z3 4.91 [facility], [place] [address] [place] [id number] [place] [phone] 16 Jan, 2019 Second trimester Z 34.92 and Intrinsic atopic dermatitis L20.84 [facility], [place] [address] [place] [id number] [place] [phone] Dec, First trimester Z3 4.91 [place] [address] [place] [id number] [place] [phone] 22 Dec, 2018 Second trimester Z 34.92 and Family history of neural tube defect Z82.0 [place] [address] [place] [id number] [place] [id number] 18 Dec, [address] [address] Dec, Second trimester Z 34.92 ; Family history of neural tube defect Z82.0 ; History of asthma Z87.09 and Wheezing R06.2 [place] [address] [place] [id number] [place] [phone] Dec, [facility] [id number] [place] [address] Dec, [facility], [place] [address] [facility] [id number] [address] [place] [phone] Nov, care, subsequent pr egnancy in first trimester Z34.81 [facility], [place] [address] [facility] [id number] [address] [place] [phone] Nov, First trimester Z3 4.91 ; 10 weeks gestation of Z3A.10 and Nausea and vomiting during O21.9 [facility], [place] [address] [facility] [id number] [address] [place] [id number] 14 Nov, 2018 care, subsequent pr egnancy in first trimester Z34.81 [facility] [address] [facility] [id number] [address] [place] [phone] 05 Nov, 2018 Vomiting O21.9 [facility] [place] [address] [facility] [id number] [address] [place] [phone] 26 Oct, 2018 care, subsequent pr egnancy in first trimester Z34.81 and 6 weeks gestation of Z3A.01 [facility] [place] [address] [facility] [id number] [address] [place] [phone] Oct, [facility] [address] [facility] [id number] [address] [place] [phone] Oct, Heat rash L74.0 [facility], [place] [address] [facility] [id number] [address] [place] [phone] Aug, UTI symptoms R39.9 [facility] [place] [address] [facility] [id number] [address] [place] [phone] Aug, [facility] [place] [address] [facility] [id number] [address] [place] [id number] Aug, UTI symptoms R39.9 [facility] [place] [address] [facility] [id number] [address] [place] [phone] Aug, Hematuria, unspecified type R31.9 [facility] [address] [facility] [id number] [address] [place] [phone] Jul, Sore throat J02.9 ; UTI symp toms R39.9 and Hematuria, unspecified type R31.9 [facility] [place] [address] [facility] [id number] [address] [place] [phone] June, Irritable bowel syndrome wit h diarrhea K58.0 and Major depressive disorder, single episode, mild F32.0 [facility], [place] [address] [facility] [id number] [address] [place] [phone] June, ADHD (attention deficit hype ractivity disorder), combined type F90.2 ; Anxiety disorder, unspecified type F41.9 and Unspecified mood [affective] disorder F39 [facility], [place] [address] [place] [id number] [place] [phone] May, ADHD (attention deficit hype ractivity disorder), combined type F90.2 ; Anxiety disorder, unspecified type F41.9 ; Unspecified mood [affective] disorder F39 and Other chcf (current) 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 Z79.899 [facility], [place] [address] [place] [id number] [place] [id number] May, Slow transit constipation K5 9.01 [facility], [place] [address] [place] [id number] [place] [phone] May, ADHD (attention deficit hype ractivity disorder), combined type F90.2 [facility], [place] [address] [facility] [id number] [address] [place] [id number] May, [facility] [place] [address] [place] [id number] [place] [phone] May, Abdominal pain R10.9 [facility], [place] [address] [facility] [id number] [address] [place] [phone] Apr, [facility] [place] [address] [place] [id number] [place] [phone] Apr, [facility], [place] [address] [place] [id number] [place] [phone] Apr, ADHD (attention deficit hype ractivity disorder), combined type F90.2 [facility], [place] [address] [place] [id number] [place] [phone] Apr, Abdominal pain R10.9 [facility], [place] [address] [address] Apr, [facility] [place] [address] [place] [id number] [place] [phone] Mar, [facility], [place] [address] [place] [id number] [place] [phone] Mar, ADHD (attention deficit hype ractivity disorder), combined type F90.2 ; Anxiety disorder, unspecified type F41.9 and Unspecified mood [affective] disorder F39 [facility] [place] [address] [address] Mar, Viral gastroenteritis A08.4 and Slow transit constipation K59.01 [facility] [address] [place] [id number] [place] [phone] Mar, Viral gastroenteritis A08.4 [facility] [place] [address] [address] Mar, ADHD (attention deficit hype ractivity disorder), combined type F90.2 [facility] [place] [address] [place] [id number] [place] [phone] Feb, Slow transit constipation K5 9.01 ; Missed period N92.6 and Nausea R11.0 [facility] [place] [address] [place] [id number] [place] [id number] Feb, ADHD (attention deficit hype ractivity disorder), combined type F90.2 [facility] [address] [address] Jan, Nausea R11.0 and Viral upper respiratory tract infection J06.9 [place] [address] [facility] [id number] [address] [place] [phone] Jan, [place] [id number] [facility] [id number] [address] [place] [phone] Jan, ADHD (attention deficit hype ractivity disorder), combined type F90.2 ; Anxiety disorder, unspecified type F41.9 and Unspecified mood [affective] disorder F39 [place] [address] [id number] [address] [place] [phone] Jan, Well woman exam with routine gynecological exam Z01.419 ; Routine screening for STI (sexually transmitted infection) Z11.3 and Vaginal jose B37.3 [place] [address] [facility] [id number] [address] [place] [phone] Dec, [place] [address] [facility] [id number] [address] [place] [phone] Dec, [place] [address] [facility] [id number] [address] [place] [phone] Dec, ADHD (attention deficit hype ractivity disorder), combined type F90.2 ; Anxiety disorder, unspecified type F41.9 and Unspecified mood [affective] disorder F39 [place] [address] [facility] [id number] [address] [place] [phone] Dec, Unspecified mood [affective] disorder F39 ; Anxiety disorder, unspecified type F41.9 and ADHD (attention deficit hyperactivity disorder), combined type F90.2 [facility] [address] [facility] [id number] [address] [place] [phone] Nov, Other specified bacterial ag ents as the cause of diseases classified elsewhere B96.89 and Otitis media, unspecified, bilateral H66.93 [facility] [address] [facility] [id number] [address] [place] [phone] Nov, Sore throat J02.9 and Acute nasopharyngitis J00 [facility] [place] [address] [facility] [id number] [address] [place] [phone] Nov, ADHD (attention deficit hype ractivity disorder), combined type F90.2 ; Anxiety disorder, unspecified type F41.9 and Unspecified mood [affective] disorder F39 [facility] [place] [address] [facility] [id number] [address] [place] [phone] Oct, ADHD (attention deficit hype ractivity disorder), combined type F90.2 [facility] [place] [address] [id number] [address] [place] [phone] Oct, ADHD (attention deficit hype ractivity disorder), combined type F90.2 ; Anxiety disorder, unspecified type F41.9 and Unspecified mood [affective] disorder F39 [facility] [place] [address] [facility] [id number] [address] [place] [phone] Sep, ADHD (attention deficit hype ractivity disorder), combined type F90.2 [facility] [place] [address] [facility] [id number] [address] [place] [phone] Sep, [facility] [place] [address] [facility] [id number] [address] [place] [phone] Aug, ADHD (attention deficit hype ractivity disorder), combined type F90.2 ; Major depressive disorder, single episode, mild F32.0 and Anxiety disorder, unspecified type F41.9 [facility] [address] [facility] [id number] [address] [place] [phone] Aug, Sore throat J02.9 ; Other sp ecified bacterial agents as the cause of diseases classified elsewhere B96.89 and Acute tonsillitis due to other specified organisms J03.80 [facility] [place] [address] [facility] [id number] [address] [place] [id number] Aug, ADHD (attention deficit hype ractivity disorder), combined type F90.2 [facility] [place] [address] [facility] [id number] [address] [place] [phone] Jul, ADHD (attention deficit hype ractivity disorder), combined type F90.2 [facility] [place] [address] [id number] [address] [place] [phone] June, ADHD (attention deficit hype ractivity disorder), combined type F90.2 ; Major depressive disorder, single episode, mild F32.0 and Anxiety disorder, unspecified type F41.9 [facility] [place] [address] [facility] [id number] [address] [place] [phone] June, [facility] [place] [address] [id number] [address] [place] [phone] June, ADHD (attention deficit hype ractivity disorder), combined type F90.2 [facility] [place] [address] [id number] [address] [place] [phone] May, [facility] [place] [address] [id number] [address] [place] [id number] May, ADHD (attention deficit hype ractivity disorder), combined type F90.2 ; Major depressive disorder, single episode, mild F32.0 and Anxiety disorder, unspecified type F41.9 [facility] [place] [address] [id number] [address] [place] [phone] May, Anxiety disorder, unspecifie d type F41.9 [facility] [place] [address] [id number] [address] [place] [phone] Apr, [facility] [place] [address] [id number] [address] [place] [phone] Apr, Anxiety disorder, unspecifie d type F41.9 [facility] [place] [address] [id number] [address] [place] [phone] Apr, Anxiety disorder, unspecifie d type F41.9 ; Major depressive disorder, single episode, mild F32.0 and ADHD (attention deficit hyperactivity disorder), combined type F90.2 [facility] [place] [address] [id number] [address] [place] [id number] Apr, [facility] [place] [address] [id number] [address] [place] [phone] Apr, ADHD (attention deficit hype ractivity disorder), combined type F90.2 ; Anxiety state F41.1 ; Depressive disorder, not elsewhere classified F32.9 ; Major depressive disorder, single episode, mild F32.0 and Anxiety disorder, unspecified type F41.9 [facility] [place] [address] [facility] [id number] [address] [place] [phone] Mar, ADHD (attention deficit hype ractivity disorder), combined type F90.2 [facility] [place] [address] [facility] [id number] [address] [place] [phone] 20 Mar, 2017 Nausea R11.0 [facility] [place] [address] [facility] [id number] [address] [place] [id number] 13 Mar, 2017 Screening for STD sexually t ransmitted disease Z11.3 ; Vaginal candidiasis B37.3 and Irritable bowel syndrome with diarrhea K58.0 [facility] [place] [address] [facility] [id number] [address] [place] [phone] Mar, [facility] [place] [address] [facility] [id number] [address] [place] [phone] Feb, ADHD (attention deficit hype ractivity disorder), combined type F90.2 [facility] [place] [address] [id number] [address] [place] [id number] Feb, Depressive disorder, not els ewhere classified F32.9 ; Anxiety state F41.1 and ADHD (attention deficit hyperactivity disorder), combined type F90.2 [facility] [place] [address] [facility] [id number] [address] [place] [phone] Feb, Depressive disorder, not els ewhere classified F32.9 ; Anxiety state F41.1 and ADHD (attention deficit hyperactivity disorder), combined type F90.2 [facility] [place] [address] [facility] [id number] [address] [place] [phone] Feb, ADHD (attention deficit hype ractivity disorder), combined type F90.2 [facility] [address] [facility] [id number] [address] [place] [phone] Jan, Other viral agents as the ca use of diseases classified elsewhere B97.89 and Acute upper respiratory infection, unspecified J06.9 [facility] [place] [address] [place] [id number] [place] [phone] Jan, ADHD (attention deficit hype ractivity disorder), combined type F90.2 ; Major depressive disorder, single episode, mild F32.0 and Anxiety disorder, unspecified type F41.9 [facility] [place] [address] [place] [id number] [place] [phone] Jan, [facility] [place] [address] [place] [id number] [place] [phone] Jan, ADHD (attention deficit hype ractivity disorder), combined type F90.2 ; Major depressive disorder, single episode, mild F32.0 and Anxiety disorder, unspecified type F41.9 [facility] [place] [address] [place] [id number] [place] [id number] Dec, Irritable bowel syndrome wit h diarrhea K58.0 and Lower abdominal pain R10.30 [facility] [place] [address] [place] [id number] [place] [phone] 09 Dec, 2016 Hospital discharge follow-up Z09 ; Mesenteric adenitis I88.0 ; IBD (inflammatory bowel disease) K52.9 and Nausea R11.0 [facility] [place] [address] [place] [id number] [place] [phone] Nov, ADHD (attention deficit hype ractivity disorder), combined type F90.2 ; Major depressive disorder, single episode, mild F32.0 and Anxiety disorder, unspecified type F41.9 [facility] [place] [address] [place] [id number] [place] [phone] Nov, Anxiety state F41.1 ; ADHD ( attention deficit hyperactivity disorder), combined type F90.2 ; Major depressive disorder, single episode, mild F32.0 and Anxiety disorder, unspecified type F41.9 [facility] [place] [address] [place] [id number] [place] [phone] Oct, Anxiety state F41.1 ; ADHD ( attention deficit hyperactivity disorder), combined type F90.2 ; Major depressive disorder, single episode, mild F32.0 and Anxiety disorder, unspecified type F41.9 [place] [address] [place] [id number] [place] [phone] Oct, ADHD (attention deficit hype ractivity disorder), combined type F90.2 ; Major depressive disorder, single episode, mild F32.0 and Anxiety disorder, unspecified type F41.9 [place] [address] [place] [id number] [place] [phone] Oct, Major depressive disorder, s floresita episode, mild F32.0 ; Anxiety state F41.1 ; ADHD (attention deficit hyperactivity disorder), combined type F90.2 and Depressive disorder, not elsewhere classified F32.9 [facility] [address] [place] [id number] [place] [phone] Oct, [facility] [address] [place] [id number] [place] [phone] Oct, Cellulitis L03.90 and Planta r wart of right foot B07.0 [place] [address] [place] [id number] [place] [phone] Aug, ADHD (attention deficit hype ractivity disorder), combined type F90.2 ; Major depressive disorder, single episode, mild F32.0 and Anxiety disorder, unspecified type F41.9 [place] [id number] [place] [id number] [place] [id number] Aug, [place] [address] [address] [place] [id number] [address] [place] [phone] Jul, ADHD (attention deficit hype ractivity disorder), combined type F90.2 [place] [id number] [place] [id number] [address] [place] [id number] Jul, Mesenteric adenitis I88.0 [facility], [place] [address] [facility] [id number] [address] [place] [id number] June, [facility] [address] [facility] [id number] [address] [place] [id number] June, Lower abdominal pain R10.30 [facility] [place] [address] [place] [id number] [address] [place] [phone] June, [facility] [place] [address] [place] [place] [id number] [address] [place] [id number] June, ADHD (attention deficit hype ractivity disorder), combined type F90.2 and Major depressive disorder, single episode, mild F32.0 [facility], [place] [address] [id number] [address] [place] [phone] May, [facility] [place] [address] [id number] [place] [address] May, ADHD (attention deficit hype ractivity disorder), combined type F90.2 and Major depressive disorder, single episode, mild F32.0 [facility] [id number] [place] [address] Apr, Abdominal pain R10.9 and Gas troenteritis and colitis, viral A08.4 [facility], [place] [address] [place] [id number] [address] [place] [phone] Apr, [facility] [address] [id number] [address] [place] [address] Mar, Acute urticaria L50.8 [facility], [place] [address] [facility] [id number] [address] [place] [address] Mar, [facility], [place] [address] [place] [id number] [address] [place] [address] Feb, [facility] [address] [id number] [address] [place] [id number] Feb, Gastroenteritis K52.9 [facility], [place] [address] [facility] [id number] [address] [place] [phone] Feb, Irritant contact dermatitis due to cosmetics L24.3 [facility], [place] [address] [facility] [id number] [address] [place] [phone] Jan, [facility], [place] [address] [facility] [id number] [address] [place] [phone] Jan, [facility], [place] [address] [place] [id number] [address] [place] [id number] Jan, ADHD (attention deficit hype ractivity disorder), combined type F90.2 and Major depressive disorder, single episode, mild F32.0 [facility] [address] [facility] [id number] [address] [place] [id number] Dec, Flexural eczema L20.82 [facility], [place] [address] [facility] [id number] [address] [place] [id number] Dec, Encounter for test Z32.00 [facility], [place] [address] [facility] [id number] [address] [place] [phone] Dec, [facility], [place] [address] [facility] [id number] [address] [place] [id number] Dec, [facility], [place] [address] [facility] [id number] [address] [place] [phone] Dec, [facility] [address] [facility] [id number] [address] [place] [id number] Nov, Sore throat J02.9 and Pharyn gitis, unspecified etiology J02.9 [facility], [place] [address] [facility] [id number] [address] [place] [id number] Nov, [facility], [place] [address] [facility] [id number] [address] [place] [phone] Nov, [facility], [place] [address] [facility] [id number] [address] [place] [id number] Nov, Generalized abdominal pain R 10.84 and Slow transit constipation K59.01 [facility] [address] [id number] [place] [id number] Nov, Pharyngitis, unspecified lara ology J02.9 and Rhinitis, unspecified type J31.0 [facility], [place] [address] [id number] [address] [place] [phone] Oct, Depressive disorder, not els ewhere classified F32.9 and ADHD (attention deficit hyperactivity disorder), combined type F90.2 [facility], [place] [address] [id number] [address] [place] [id number] Oct, [facility], [place] [address] [id number] [address] [place] [id number] Oct, [facility] [address] [id number] [address] [place] [id number] Oct, Strep throat J02.0 [facility], [place] [address] [id number] [address] [place] [id number] Oct, [facility], [place] [address] [id number] [address] [place] [id number] Oct, Well woman exam with routine gynecological exam Z01.419 and Screening for STD sexually transmitted disease Z11.3 [facility], [place] [address] [id number] [address] [place] [id number] Sep, ADHD (attention deficit hype ractivity disorder), combined type F90.2 ; Anxiety state F41.1 and Depressive disorder, not elsewhere classified F32.9 [facility], [place] [address] [id number] [address] [place] [id number] Sep, ADHD (attention deficit hype ractivity disorder), combined type F90.2 and Depressive disorder, not elsewhere classified F32.9 [facility], [place] [address] [id number] [address] [place] [id number] Aug, [facility], [place] [address] [id number] [address] [place] [id number] Aug, ADHD (attention deficit hype ractivity disorder), combined type F90.2 and Depressive disorder, not elsewhere classified F32.9 [facility] [place] [address] [id number] [address] [place] [id number] Aug, ADHD (attention deficit hype ractivity disorder), combined type F90.2 ; Anxiety state F41.1 and Depressive disorder, not elsewhere classified F32.9 [facility], [place] [address] [id number] [address] [place] [id number] Aug, [facility], [place] [address] [id number] [address] [place] [id number] Aug, [facility] [place] [address] [id number] [address] [place] [id number] Jul, ADHD (attention deficit hype ractivity disorder), combined type F90.2 ; Depressive disorder, not elsewhere classified F32.9 and Anxiety state F41.1 [facility], [place] [address] [id number] [address] [place] [phone] Jul, [facility], [place] [address] [id number] [address] [place] [id number] Jul, ADHD (attention deficit hype ractivity disorder), combined type F90.2 ; Anxiety state F41.1 and Depressive disorder, not elsewhere classified F32.9 [facility], [place] [address] [id number] [address] [place] [id number] June, [facility] [address] [id number] [place] [id number] June, Constipation K59.00 [facility], [place] [address] [id number] [address] [place] [phone] May, Constipation K59.00 [facility] [address] [id number] [address] [place] [id number] May, Irritable bowel syndrome wit h diarrhea K58.0 [facility], [place] [address] [id number] [address] [place] [address] [place] [address] 15 May, 2015 [facility] [address] [id number] [address] [place] [address], [place] [address] 15 May, 2015 [facility] [address] [id number] [address] [place] [address], [place] [address] 14 May, 2014 [facility] [address] [id number] [address] [place] [address], [place] [address] 13 May, 2014 [facility] [address] [id number] [address] [place] [address], [place] [address] Jan, [facility] [address] [id number] [address] [place] [address], [place] [address] Jan, [facility] [address] [id number] [address] [place] [address], [place] [address] Jan, [facility] [address] [id number] [address] [place] [address], [place] [address] Jan, [facility] [address] [id number] [address] [place] [address], [place] [address] Jan, [facility] [address] [id number] [address] [place] [address], [place] [address] Jan, [facility] [address] [id number] [address] [place] [address], [place] [address] Nov, [facility] [address] [id number] [address] [place] [address], [place] [address] Nov, [facility] [address] [id number] [address] [place] [address], [place] [address] Oct, [facility] [address] [id number] [address] [place] [address], [place] [address] Oct, [facility] [address] [id number] [address] [place] [address], [place] [address] Sep, [facility] [address] [id number] [address] [place] [address], [place] [address] Sep, [facility] [address] [id number] [facility] [place] [address] Aug, 2013 [facility] [address] [id number] [facility] [place] [address] Aug, 2013 [facility] [address] [id number] [address] [place] [address], [place] [address] Aug, 2013 [facility] [address] [id number] [address] [place] [address], [place] [address] Aug, 2013 [facility] [address] [id number] [address] [place] [address], [place] [address] Aug, 2013 [facility] [address] [id number] [address] [place] [address], [place] [address] Aug, 2013 [facility] [address] [id number] [address] [place] [address], [place] [address] Aug, [facility] [address] [id number] [address] [place] [address], [place] [address] Aug, [facility] [address] [id number] [address] [place] [address], [place] [address] Jul, [facility] [address] [id number] [address] [place] [address], [place] [address] Jul, [facility] [address] [id number] [address] [place] [address], [place] [address] Jul, [facility] [address] [id number] [address] [place] [address], [place] [address] Jul, [facility] [address] [id number] [address] [place] [address], [place] [address] Jul, [facility] [address] [id number] [address] [place] [address], [place] [address] Jul, [facility] [address] [id number] [address] [place] [address], [place] [address] Jul, [facility] [address] [id number] [address] [place] [address], [place] [address] Jul, [facility] [address] [id number] [facility] [place] [address] Jul, [facility] [address] [id number] [address] [place] [address], [place] [address] June, [facility] [address] [id number] [address] [place] [address], [place] [address] June, [facility] [address] [id number] [address] [place] [address], [place] [address] May, [facility] [address] [id number] [address] [place] [address], [place] [address] May, [facility] [address] [id number] [address] [place] [address], [place] [address] May, [facility] [address] [id number] [address] [place] [address], [place] [address] May, [facility] [address] [id number] [address] [place] [address], [place] [address] May, [facility] [address] [id number] [address] [place] [address], [place] [address] May, [facility] [address] [id number] [address] [place] [address], [place] [address] May, [facility] [address] [id number] [address] [place] [address], [place] [address] May, [facility] [address] [id number] [address] [place] [address], [place] [address] May, [facility] [address] [id number] [address] [place] [address], [place] [address] May, [facility] [address] [id number] [address] [place] [address], [place] [address] May, [facility] [address] [id number] [address] [place] [address], [place] [address] May, [facility] [address] [id number] [address] [address] Apr, [facility] [address] [id number] [address] [place] [address], [place] [address] Apr, [facility] [address] [id number] [address] [place] [address], [place] [address] Apr, [facility] [address] [id number] [address] [place] [address], [place] [address] Apr, [facility] [address] [id number] [address] [place] [address], [place] [address] Mar, [facility] [address] [id number] [address] [place] [address], [place] [address] Mar, [facility] [address] [id number] [address] [place] [address], [place] [address] Mar, [facility] [address] [id number] [address] [place] [address], [place] [address] Mar, [facility] [address] [id number] [address] [place] [address], [place] [address] Mar, [facility] [address] [id number] [address] [place] [address], [place] [address] Mar, [facility] [address] [id number] [address] [place] [address], [place] [address] Mar, [facility] [place] [facility] [address] [id number] [address] [place] [address], [place] [address] Mar, [facility] [address] [id number] [address] [place] [address], [place] [address] Mar, [facility] [address] [id number] [address] [place] [address], [place] [address] Mar, [facility] [address] [id number] [address] [place] [address], [place] [address] 14 Mar, 2013 [facility] [address] [id number] [address] [place] [address], [place] [address] 14 Mar, 2013 [facility] [address] [id number] [address] [place] [address], [place] [address] Mar, [facility] [address] [id number] [address] [place] [address], [place] [address] Mar, [facility] [address] [id number] [address] [place] [address], [place] [address] Mar, [facility] [address] [id number] [address] [place] [address], [place] [address] Mar, [facility] [address] [id number] [address] [place] [address], [place] [address] Mar, [facility] [address] [id number] [address] [place] [address], [place] [address] Mar, [facility] [address] [id number] [address] [place] [address], [place] [address] Mar, [facility] [address] [id number] [address] [place] [address], [place] [address] Mar, [facility] [address] [id number] [address] [place] [address], [place] [address] Feb, [facility] [address] [id number] [address] [place] [address], [place] [address] Feb, [facility] [address] [id number] [address] [place] [address], [place] [address] Feb, [facility] [address] [id number] [address] [place] [address], [place] [address] Feb, [facility] [address] [id number] [address] [place] [address], [place] [address] Feb, [facility] [address] [id number] [address] [place] [address], [place] [address] Feb, [facility] [address] [id number] [address] [place] [address], [place] [address] Feb, [facility] [address] [id number] [address] [place] [address], [place] [address] Feb, [facility] [address] [id number] [address] [place] [address], [place] [address] Feb, [facility] [address] [id number] [address] [place] [address], [place] [address] Feb, [facility] [address] [id number] [address] [place] [address], [place] [address] Feb, [facility] [address] [id number] [address] [place] [address], [place] [address] Feb, [facility] [address] [id number] [address] [place] [address], [place] [address] Feb, [facility] [address] [id number] [address] [place] [address], [place] [address] Feb, [facility] [address] [id number] [address] [place] [address], [place] [address] Feb, [facility] [address] [id number] [address] [place] [address], [place] [address] Feb, [facility] [address] [id number] [address] [place] [address], [place] [address] Feb, [facility] [address] [id number] [address] [place] [address], [place] [address] Feb, [facility] [address] [id number] [address] [place] [address], [place] [address] Feb, [facility] [address] [id number] [address] [place] [address], [place] [address] Feb, [facility] [address] [id number] [address] [place] [address], [place] [address] Feb, [facility] [address] [id number] [address] [place] [address], [place] [address] Feb, [facility] [address] [id number] [address] [place] [address], [place] [address] Feb, [facility] [address] [id number] [address] [place] [address], [place] [address] Jan, [facility] [address] [id number] [address] [place] [address], [place] [address] Jan, [facility] [address] [id number] [address] [place] [address], [place] [address] Jan, [facility] [address] [id number] [address] [place] [address], [place] [address] Jan, [facility] [address] [id number] [address] [place] [address], [place] [address] Jan, [facility] [address] [id number] [address] [place] [address], [place] [address] Jan, [facility] [address] [id number] [address] [place] [address], [place] [address] Jan, [facility] [address] [id number] [address] [place] [address], [place] [address] Jan, [facility] [address] [id number] [address] [place] [address], [place] [address] Jan, [facility] [address] [id number] [address] [place] [address], [place] [address] Jan, [facility] [address] [id number] [address] [place] [address], [place] [address] Jan, [facility] [address] [id number] [address] [place] [address], [place] [address] Jan, [facility] [address] [id number] [address] [place] [address], [place] [address] Jan, [facility] [address] [id number] [address] [place] [address], [place] [address] Dec, [facility] [address] [id number] [address] [place] [address], [place] [address] Dec, [facility] [address] [id number] [address] [place] [address], [place] [address] Dec, [facility] [address] [id number] [address] [place] [address], [place] [address] Dec, [facility] [address] [id number] [address] [place] [address], [place] [address] Dec, [facility] [address] [id number] [address] [place] [address], [place] [address] Dec, [facility] [address] [id number] [address] [place] [address], [place] [address] Nov, [facility] [address] [id number] [address] [place] [address], [place] [address] Nov, [facility] [address] [id number] [address] [place] [address], [place] [address] Nov, [facility] [address] [id number] [address] [place] [address], [place] [address] Nov, [facility] [address] [id number] [address] [place] [address], [place] [address] Nov, [facility] [address] [id number] [address] [place] [address], [place] [address] Nov, [facility] [address] [id number] [address] [place] [address], [place] [address] 28 Oct, 2012 [facility] [address] [id number] [address] [place] [address], [place] [address] 27 Sep, 2012 [facility] [address] [id number] [address] [place] [address], [place] [address] 26 Sep, 2012 [facility] [address] [id number] [address] [place] [address], [place] [address] 25 Oct, 2012 [facility] [address] [id number] [address] [place] [address], [place] [address] 25 Oct, 2012 [facility] [address] [id number] [address] [place] [address], [place] [address] Oct, [facility] [place] [address] [facility] [id number] [address] [place] [address] Oct, IMMUNIZATIONS No Known Immunizations SOCIAL HISTORY [...]
--- OUTSIDE RECORDS SUMMARY | 2019-06-25 21:18 | XMS REPORT ---
Author Author Sheyla Xavier Doctor Organization [facility] Address Unknown Phone Unavailable Care Team Providers Care Consultant Dietitian Name Role Phone Migration, Doctor Unavailable Unavailable PROBLEMS Type Condition ICD9-CM Code [id number] Code Onset Dates Condition S tatus SNOMED Code Problem ADHD (attention deficit hyperactivity disorder), combi amparo type F90.2 Active 53966206 Problem Unspecified mood [affective] disorder F39 Active 64442969 Problem Intrinsic atopic dermatitis L20.84 Ac tive 51838556 Problem Slow transit constipation K59.01 Acti ve 52925269 Problem Anxiety disorder, unspecified type F41.9 Active 615157980 Problem Major depressive disorder, single episode, mild F3 2.0 Active 36478860 Problem Irritable bowel syndrome with diarrhea K58.0 Active 411697654 ALLERGIES No Information ENCOUNTERS Encounter Location Date Diagnosis [facility] [id number] [place] [phone] May, [facility] [address] [place] [id number] [place] [phone] May, [facility] [address] [place] [id number] [place] [phone] May, [facility] [address] [place] [id number] [place] [phone] Apr, [facility] [address] [place] [id number] [place] [phone] Apr, Third trimester Z3 4.93 and Gestational diabetes mellitus (GDM) in third trimester, gestational diabetes method of control unspecified O24.419 [facility] [address] [place] [id number] [place] [phone] Apr, [facility] [address] [place] [id number] [place] [phone] Apr, Diet controlled gestational diabetes mellitus (GDM) in third trimester O24.410 [facility] [address] [facility] [id number] [address] [place] [id number] 11 Apr, 2019 30 weeks gestation of pregna ncy Z3A.30 ; Diet controlled gestational diabetes mellitus (GDM) in third trimester O24.410 and Encounter for immunization Z23 [facility] [address] [facility] [id number] [address] [place] [phone] 05 Apr, 2019 [facility] [address] [facility] [id number] [address] [place] [phone] 04 Apr, 2019 Gestational diabetes O24.419 [facility] [address] [place] [id number] [place] [phone] Apr, [facility] [address] [place] [id number] [place] [phone] Apr, Abnormal glucose tolerance i n O99.810 [facility] [address] [place] [id number] [place] [phone] Mar, Abnormal glucose tolerance i n O99.810 [facility] [address] [place] [id number] [place] [phone] Mar, Second trimester Z 33.1 ; Nausea and vomiting during O21.9 and 27 weeks gestation of Z3A.27 [facility] [address] [place] [id number] [place] [phone] Mar, [facility] [address] [facility] [id number] [address] [place] [phone] Mar, Non-intractable vomiting wit h nausea, unspecified vomiting type R11.2 [facility] [address] [place] [id number] [address] [place] [phone] Feb, [facility] [address] [place] [id number] [place] [phone] Feb, Second trimester Z 33.1 [facility] [address] [place] [id number] [place] [phone] 13 Feb, 2019 Second trimester Z 34.92 ; 21 weeks gestation of Z3A.21 and Exposure to STD Z20.2 [facility] [address] [phone] 07 Feb, 2019 Second trimester Z 33.1 [facility] [address] [place] [id number] [place] [id number] 05 Feb, 2019 Non-intractable vomiting wit h nausea, unspecified vomiting type R11.2 [facility] [address] [facility] [id number] [address] [place] [phone] 31 Jan, 2019 [place] [address] [phone] Jan, [place] [address] [phone] Jan, First trimester Z3 4.91 [place] [address] [id number] 16 Jan, 2019 Second trimester Z 34.92 and Intrinsic atopic dermatitis L20.84 [place] [address] [phone] 27 Dec, 2018 First trimester Z3 4.91 [place] [address] [place] [id number] [place] [phone] 22 Dec, 2018 Second trimester Z 34.92 and Family history of neural tube defect Z82.0 [facility] [address] [place] [id number] [place] [phone] Dec, [place] [address] [phone] 13 Dec, 2018 Second trimester Z 34.92 ; Family history of neural tube defect Z82.0 ; History of asthma Z87.09 and Wheezing R06.2 [place] [address] [place] [id number] [place] [phone] 08 Dec, 2018 [facility] [address] [id number] [place] [address] Dec, [facility] [address] [facility] [id number] [address] [place] [phone] Nov, care, subsequent pr egnancy in first trimester Z34.81 [facility] [address] [facility] [id number] [address] [place] [phone] Nov, First trimester Z3 4.91 ; 10 weeks gestation of Z3A.10 and Nausea and vomiting during O21.9 [facility] [address] [facility] [id number] [address] [place] [phone] 14 Nov, 2018 care, subsequent pr egnancy in first trimester Z34.81 [facility] [address] [facility] [id number] [address] [place] [phone] 05 Nov, 2018 Vomiting O21.9 [facility] [address] [facility] [id number] [address] [place] [phone] 26 Oct, 2018 care, subsequent pr egnancy in first trimester Z34.81 and 6 weeks gestation of Z3A.01 [place] [address] [facility] [id number] [address] [place] [phone] Oct, [facility] [address] [facility] [id number] [address] [place] [phone] Oct, Heat rash L74.0 [place] [address] [id number] [address] [place] [phone] Aug, UTI symptoms R39.9 [place] [address] [id number] [address] [place] [phone] Aug, [place] [address] [facility] [id number] [address] [place] [phone] Aug, UTI symptoms R39.9 [facility] [address] [facility] [id number] [address] [place] [phone] Aug, Hematuria, unspecified type R31.9 [facility] [address] [facility] [id number] [address] [place] [phone] Jul, Sore throat J02.9 ; UTI symp toms R39.9 and Hematuria, unspecified type R31.9 [facility] [address] [facility] [id number] [address] [place] [phone] June, Irritable bowel syndrome wit h diarrhea K58.0 and Major depressive disorder, single episode, mild F32.0 [facility] [address] [facility] [id number] [address] [place] [phone] June, ADHD (attention deficit hype ractivity disorder), combined type F90.2 ; Anxiety disorder, unspecified type F41.9 and Unspecified mood [affective] disorder F39 [facility] [address] [facility] [id number] [address] [place] [phone] May, ADHD (attention deficit hype ractivity disorder), combined type F90.2 ; Anxiety disorder, unspecified type F41.9 ; Unspecified mood [affective] disorder F39 and Other nursing home (current) 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 Z79.899 [facility] [address] [facility] [id number] [address] [place] [phone] May, Slow transit constipation K5 9.01 [facility] [address] [facility] [id number] [address] [place] [phone] May, ADHD (attention deficit hype ractivity disorder), combined type F90.2 [facility] [address] [facility] [id number] [address] [place] [phone] May, [facility] [address] [facility] [id number] [address] [place] [phone] May, Abdominal pain R10.9 [facility] [address] [facility] [id number] [address] [place] [phone] Apr, [facility] [address] [facility] [id number] [address] [place] [phone] Apr, [facility] [id number] [place] [phone] Apr, ADHD (attention deficit hype ractivity disorder), combined type F90.2 [facility] [address] [phone] Apr, Abdominal pain R10.9 [facility] [address] [phone] Apr, [facility] [address] [phone] Mar, [facility] [address] [phone] Mar, ADHD (attention deficit hype ractivity disorder), combined type F90.2 ; Anxiety disorder, unspecified type F41.9 and Unspecified mood [affective] disorder F39 [place] [address] [address] Mar, Viral gastroenteritis A08.4 and Slow transit constipation K59.01 [facility] [address] [phone] Mar, Viral gastroenteritis A08.4 [facility] [address] [phone] Mar, ADHD (attention deficit hype ractivity disorder), combined type F90.2 [facility] [address] [place] [id number] [place] [phone] Feb, Slow transit constipation K5 9.01 ; Missed period N92.6 and Nausea R11.0 [facility] [address] [phone] Feb, ADHD (attention deficit hype ractivity disorder), combined type F90.2 [facility] [address] [place] [id number] [address] [place] [phone] Jan, Nausea R11.0 and Viral upper respiratory tract infection J06.9 [place] [address] [facility] [id number] [address] [place] [phone] Jan, [place] [address] [facility] [id number] [address] [place] [phone] Jan, ADHD (attention deficit hype ractivity disorder), combined type F90.2 ; Anxiety disorder, unspecified type F41.9 and Unspecified mood [affective] disorder F39 [place] [address] [facility] [id number] [address] [place] [phone] Jan, Well woman exam with routine gynecological exam Z01.419 ; Routine screening for STI (sexually transmitted infection) Z11.3 and Vaginal jose B37.3 [place] [address] [facility] [id number] [address] [place] [phone] Dec, [place] [address] [facility] [id number] [address] [place] [phone] Dec, [place] [address] [place] [id number] [address] [place] [phone] Dec, ADHD (attention deficit hype ractivity disorder), combined type F90.2 ; Anxiety disorder, unspecified type F41.9 and Unspecified mood [affective] disorder F39 [place] [address] [facility] [id number] [address] [place] [phone] Dec, Unspecified mood [affective] disorder F39 ; Anxiety disorder, unspecified type F41.9 and ADHD (attention deficit hyperactivity disorder), combined type F90.2 [facility] [place] [address] [facility] [id number] [address] [place] [phone] Nov, Other specified bacterial ag ents as the cause of diseases classified elsewhere B96.89 and Otitis media, unspecified, bilateral H66.93 [facility] [address] [facility] [id number] [address] [place] [phone] Nov, Sore throat J02.9 and Acute nasopharyngitis J00 [place] [address] [place] [id number] [place] [phone] Nov, ADHD (attention deficit hype ractivity disorder), combined type F90.2 ; Anxiety disorder, unspecified type F41.9 and Unspecified mood [affective] disorder F39 [facility] [address] [id number] [address] [place] [phone] Oct, ADHD (attention deficit hype ractivity disorder), combined type F90.2 [facility] [address] [facility] [id number] [address] [place] [phone] Oct, ADHD (attention deficit hype ractivity disorder), combined type F90.2 ; Anxiety disorder, unspecified type F41.9 and Unspecified mood [affective] disorder F39 [facility] [address] [facility] [id number] [address] [place] [phone] Sep, ADHD (attention deficit hype ractivity disorder), combined type F90.2 [facility] [address] [facility] [id number] [address] [place] [phone] Sep, [facility] [address] [id number] [address] [place] [phone] Aug, ADHD (attention deficit hype ractivity disorder), combined type F90.2 ; Major depressive disorder, single episode, mild F32.0 and Anxiety disorder, unspecified type F41.9 [facility] [address] [facility] [id number] [address] [place] [phone] Aug, Sore throat J02.9 ; Other sp ecified bacterial agents as the cause of diseases classified elsewhere B96.89 and Acute tonsillitis due to other specified organisms J03.80 [facility] [address] [id number] [address] [place] [phone] Aug, ADHD (attention deficit hype ractivity disorder), combined type F90.2 [facility] [address] [facility] [id number] [address] [place] [phone] Jul, ADHD (attention deficit hype ractivity disorder), combined type F90.2 [facility] [address] [id number] [address] [place] [phone] June, ADHD (attention deficit hype ractivity disorder), combined type F90.2 ; Major depressive disorder, single episode, mild F32.0 and Anxiety disorder, unspecified type F41.9 [facility] [address] [id number] [address] [place] [phone] June, [facility] [address] [id number] [address] [place] [phone] June, ADHD (attention deficit hype ractivity disorder), combined type F90.2 [facility] [address] [id number] [address] [place] [phone] May, [facility] [address] [id number] [address] [place] [phone] May, ADHD (attention deficit hype ractivity disorder), combined type F90.2 ; Major depressive disorder, single episode, mild F32.0 and Anxiety disorder, unspecified type F41.9 [facility] [address] [id number] [address] [place] [phone] May, Anxiety disorder, unspecifie d type F41.9 [facility] [address] [id number] [address] [place] [phone] Apr, [facility] [address] [id number] [address] [place] [phone] Apr, Anxiety disorder, unspecifie d type F41.9 [facility] [address] [id number] [address] [place] [phone] Apr, Anxiety disorder, unspecifie d type F41.9 ; Major depressive disorder, single episode, mild F32.0 and ADHD (attention deficit hyperactivity disorder), combined type F90.2 [facility] [address] [id number] [address] [place] [phone] Apr, [facility] [address] [id number] [address] [place] [phone] Apr, ADHD (attention deficit hype ractivity disorder), combined type F90.2 ; Anxiety state F41.1 ; Depressive disorder, not elsewhere classified F32.9 ; Major depressive disorder, single episode, mild F32.0 and Anxiety disorder, unspecified type F41.9 [facility] [address] [facility] [id number] [address] [place] [phone] Mar, ADHD (attention deficit hype ractivity disorder), combined type F90.2 [facility] [address] [facility] [id number] [address] [place] [phone] 20 Mar, 2017 Nausea R11.0 [facility] [address] [place] [id number] [place] [phone] 13 Mar, 2017 Screening for STD sexually t ransmitted disease Z11.3 ; Vaginal candidiasis B37.3 and Irritable bowel syndrome with diarrhea K58.0 [facility] [address] [place] [id number] [place] [phone] Mar, [facility] [address] [facility] [id number] [address] [place] [phone] Feb, ADHD (attention deficit hype ractivity disorder), combined type F90.2 [facility] [address] [place] [id number] [place] [phone] Feb, Depressive disorder, not els ewhere classified F32.9 ; Anxiety state F41.1 and ADHD (attention deficit hyperactivity disorder), combined type F90.2 [facility] [address] [place] [id number] [place] [phone] Feb, Depressive disorder, not els ewhere classified F32.9 ; Anxiety state F41.1 and ADHD (attention deficit hyperactivity disorder), combined type F90.2 [facility] [address] [facility] [id number] [address] [place] [phone] Feb, ADHD (attention deficit hype ractivity disorder), combined type F90.2 [facility] [address] [facility] [id number] [address] [place] [phone] Jan, Other viral agents as the ca use of diseases classified elsewhere B97.89 and Acute upper respiratory infection, unspecified J06.9 [place] [address] [phone] Jan, ADHD (attention deficit hype ractivity disorder), combined type F90.2 ; Major depressive disorder, single episode, mild F32.0 and Anxiety disorder, unspecified type F41.9 [place] [address] [phone] Jan, [place] [address] [phone] Jan, ADHD (attention deficit hype ractivity disorder), combined type F90.2 ; Major depressive disorder, single episode, mild F32.0 and Anxiety disorder, unspecified type F41.9 [place] [address] [address] Dec, Irritable bowel syndrome wit h diarrhea K58.0 and Lower abdominal pain R10.30 [place] [address] [phone] Dec, Hospital discharge follow-up Z09 ; Mesenteric adenitis I88.0 ; IBD (inflammatory bowel disease) K52.9 and Nausea R11.0 [place] [address] [phone] Nov, ADHD (attention deficit hype ractivity disorder), combined type F90.2 ; Major depressive disorder, single episode, mild F32.0 and Anxiety disorder, unspecified type F41.9 [place] [address] [place] [id number] [place] [phone] Nov, Anxiety state F41.1 ; ADHD ( attention deficit hyperactivity disorder), combined type F90.2 ; Major depressive disorder, single episode, mild F32.0 and Anxiety disorder, unspecified type F41.9 [place] [address] [phone] Oct, Anxiety state F41.1 ; ADHD ( attention deficit hyperactivity disorder), combined type F90.2 ; Major depressive disorder, single episode, mild F32.0 and Anxiety disorder, unspecified type F41.9 [facility] [address] [facility] [id number] [address] [place] [phone] Oct, ADHD (attention deficit hype ractivity disorder), combined type F90.2 ; Major depressive disorder, single episode, mild F32.0 and Anxiety disorder, unspecified type F41.9 [facility] [address] [facility] [id number] [address] [place] [phone] Oct, Major depressive disorder, s floresita episode, mild F32.0 ; Anxiety state F41.1 ; ADHD (attention deficit hyperactivity disorder), combined type F90.2 and Depressive disorder, not elsewhere classified F32.9 [facility] [address] [facility] [id number] [address] [place] [phone] 16 Oct, 2016 [facility] [address] [facility] [id number] [address] [place] [phone] Oct, Cellulitis L03.90 and Planta r wart of right foot B07.0 [facility] [address] [place] [id number] [address] [place] [phone] Aug, ADHD (attention deficit hype ractivity disorder), combined type F90.2 ; Major depressive disorder, single episode, mild F32.0 and Anxiety disorder, unspecified type F41.9 [facility] [address] [facility] [id number] [address] [place] [phone] Aug, [facility] [address] [place] [id number] [place] [phone] Jul, ADHD (attention deficit hype ractivity disorder), combined type F90.2 [facility] [address] [facility] [id number] [address] [place] [phone] Jul, Mesenteric adenitis I88.0 [facility] [address] [place] [id number] [place] [phone] June, [facility] [address] [id number] [address] [place] [phone] June, Lower abdominal pain R10.30 [facility] [address] [facility] [id number] [address] [place] [phone] June, [facility] [address] [facility] [id number] [address] [place] [phone] June, ADHD (attention deficit hype ractivity disorder), combined type F90.2 and Major depressive disorder, single episode, mild F32.0 [facility] [address] [facility] [id number] [address] [place] [phone] May, [facility] [address] [facility] [id number] [address] [place] [phone] May, ADHD (attention deficit hype ractivity disorder), combined type F90.2 and Major depressive disorder, single episode, mild F32.0 [facility] [address] [facility] [id number] [address] [place] [phone] Apr, Abdominal pain R10.9 and Gas troenteritis and colitis, viral A08.4 [facility] [address] [place] [id number] [address] [place] [id number] Apr, [facility] [address] [place] [id number] [address] [place] [id number] Mar, Acute urticaria L50.8 [facility] [address] [facility] [id number] [address] [place] [id number] Mar, [facility] [address] [id number] [address] [place] [phone] Feb, [facility] [address] [facility] [id number] [address] [place] [address] Feb, Gastroenteritis K52.9 [facility] [id number] [place] [address] Feb, Irritant contact dermatitis due to cosmetics L24.3 [facility] [address] [id number] [address] [place] [phone] Jan, [facility] [address] [id number] [address] [place] [phone] Jan, [facility] [address] [facility] [id number] [address] [place] [phone] Jan, ADHD (attention deficit hype ractivity disorder), combined type F90.2 and Major depressive disorder, single episode, mild F32.0 [facility] [address] [id number] [address] [place] [id number] Dec, Flexural eczema L20.82 [facility] [address] [facility] [id number] [address] [place] [address] Dec, Encounter for test Z32.00 [facility] [address] [id number] [address] [place] [phone] Dec, [facility] [address] [id number] [address] [place] [id number] Dec, [facility] [address] [facility] [id number] [address] [place] [phone] Dec, [facility] [address] [facility] [id number] [address] [place] [phone] Nov, Sore throat J02.9 and Pharyn gitis, unspecified etiology J02.9 [facility] [address] [id number] [address] [place] [address] Nov, [facility] [address] [facility] [id number] [address] [place] [id number] Nov, [facility] [address] [facility] [id number] [address] [place] [phone] Nov, Generalized abdominal pain R 10.84 and Slow transit constipation K59.01 [facility] [address] [facility] [id number] [place] [id number] Nov, Pharyngitis, unspecified lara ology J02.9 and Rhinitis, unspecified type J31.0 [facility] [address] [facility] [id number] [address] [place] [phone] Oct, Depressive disorder, not els ewhere classified F32.9 and ADHD (attention deficit hyperactivity disorder), combined type F90.2 [facility] [address] [facility] [id number] [address] [place] [id number] Oct, [facility] [address] [facility] [id number] [address] [place] [id number] Oct, [facility] [address] [facility] [id number] [address] [place] [phone] Oct, Strep throat J02.0 [facility] [address] [facility] [id number] [address] [place] [id number] Oct, [facility] [address] [id number] [address] [place] [id number] Oct, Well woman exam with routine gynecological exam Z01.419 and Screening for STD sexually transmitted disease Z11.3 [facility] [address] [facility] [id number] [address] [place] [id number] Sep, ADHD (attention deficit hype ractivity disorder), combined type F90.2 ; Anxiety state F41.1 and Depressive disorder, not elsewhere classified F32.9 [facility] [address] [facility] [id number] [address] [place] [phone] Sep, ADHD (attention deficit hype ractivity disorder), combined type F90.2 and Depressive disorder, not elsewhere classified F32.9 [facility] [address] [facility] [id number] [address] [place] [phone] Aug, [facility] [address] [facility] [id number] [address] [place] [phone] Aug, ADHD (attention deficit hype ractivity disorder), combined type F90.2 and Depressive disorder, not elsewhere classified F32.9 [facility] [address] [id number] [address] [place] [phone] Aug, ADHD (attention deficit hype ractivity disorder), combined type F90.2 ; Anxiety state F41.1 and Depressive disorder, not elsewhere classified F32.9 [facility] [address] [id number] [address] [place] [phone] Aug, [facility] [address] [id number] [address] [place] [id number] Aug, [facility] [address] [id number] [address] [place] [id number] Jul, ADHD (attention deficit hype ractivity disorder), combined type F90.2 ; Depressive disorder, not elsewhere classified F32.9 and Anxiety state F41.1 [facility] [address] [id number] [address] [place] [id number] Jul, [facility] [address] [id number] [address] [place] [phone] Jul, ADHD (attention deficit hype ractivity disorder), combined type F90.2 ; Anxiety state F41.1 and Depressive disorder, not elsewhere classified F32.9 [facility] [address] [id number] [address] [place] [phone] June, [facility] [address] [id number] [place] [address] [id number] June, Constipation K59.00 [facility] [address] [id number] [address] [place] [phone] May, Constipation K59.00 [facility] [address] [id number] [address] [place] [phone] May, Irritable bowel syndrome wit h diarrhea K58.0 [facility] [address] [id number] [address] [place] [id number] May, [facility] [address] [id number] [address] [place] [address], [place] [address] 15 May, 2015 [facility] [address] [id number] [address] [place] [address], [place] [address] 14 May, 2014 [facility] [address] [id number] [address] [place] [address], [place] [address] 13 May, 2014 [facility] [address] [id number] [address] [place] [address], [place] [address] Jan, [facility] [address] [id number] [address] [place] [address], [place] [address] Jan, [facility] [address] [id number] [address] [place] [address], [place] [address] Jan, [facility] [address] [id number] [address] [place] [address], [place] [address] Jan, [facility] [address] [id number] [address] [place] [address], [place] [address] Jan, [facility] [address] [id number] [address] [place] [address], [place] [address] Jan, [facility] [address] [id number] [address] [place] [address], [place] [address] Nov, [facility] [address] [id number] [address] [place] [address], [place] [address] Nov, [facility] [address] [id number] [address] [place] [address], [place] [address] Oct, [facility] [address] [id number] [address] [place] [address], [place] [address] Oct, [facility] [address] [id number] [address] [place] [address], [place] [address] Sep, [facility] [address] [id number] [address] [place] [address], [place] [address] Sep, [facility] [address] [id number] [address] [place] [address], [place] [address] Aug, [facility] [address] [id number] [address] [place] [address], [place] [address] Aug, 2013 [facility] [address] [id number] [address] [place] [address], [place] [address] Aug, [facility] [address] [id number] [address] [place] [address], [place] [address] Aug, 2013 [facility] [address] [id number] [address] [place] [address], [place] [address] Aug, [facility] [address] [id number] [address] [place] [address], [place] [address] Aug, 2013 [facility] [address] [id number] [address] [place] [address], [place] [address] Aug, [facility] [address] [id number] [address] [place] [address], [place] [address] Aug, 2013 [facility] [address] [id number] [address] [place] [address], [place] [address] Jul, [facility] [address] [id number] [address] [place] [address], [place] [address] Jul, [facility] [address] [id number] [address] [place] [address], [place] [address] Jul, [facility] [address] [id number] [address] [place] [address], [place] [address] Jul, [facility] [address] [id number] [address] [place] [address], [place] [address] Jul, [facility] [address] [id number] [address] [place] [address], [place] [address] Jul, [facility] [address] [id number] [address] [place] [address], [place] [address] Jul, [facility] [address] [id number] [address] [place] [address], [place] [address] Jul, [facility] [address] [id number] [address] [place] [address], [place] [address] Jul, [facility] [address] [id number] [facility] [place] [address] June, [facility] [address] [id number] [address] [place] [address], [place] [address] June, [facility] [address] [id number] [address] [place] [address], [place] [address] May, [facility] [address] [id number] [address] [place] [address], [place] [address] May, [facility] [address] [id number] [address] [place] [address], [place] [address] May, [facility] [address] [id number] [address] [place] [address], [place] [address] May, [facility] [address] [id number] [address] [place] [address], [place] [address] May, [facility] [address] [id number] [address] [place] [address], [place] [address] May, [facility] [address] [id number] [address] [place] [address], [place] [address] May, [facility] [address] [id number] [address] [place] [address], [place] [address] May, [facility] [address] [id number] [address] [place] [address], [place] [address] May, [facility] [address] [id number] [address] [place] [address], [place] [address] May, [facility] [address] [id number] [address] [place] [address], [place] [address] May, [facility] [address] [id number] [address] [place] [address], [place] [address] May, [facility] [address] [id number] [address] [place] [address], [place] [address] Apr, [facility] [address] [id number] [address] [place] [address], [place] [address] Apr, [facility] [address] [id number] [address] [place] [address], [place] [address] Apr, [facility] [address] [id number] [address] [place] [address], [place] [address] Apr, [facility] [address] [id number] [address] [place] [address], [place] [address] Mar, [facility] [address] [id number] [address] [place] [address], [place] [address] Mar, [facility] [address] [id number] [address] [place] [address], [place] [address] Mar, [facility] [address] [id number] [address] [place] [address], [place] [address] Mar, [facility] [address] [id number] [address] [place] [address], [place] [address] Mar, [facility] [address] [id number] [address] [place] [address], [place] [address] Mar, [facility] [address] [id number] [address] [place] [address], [place] [address] Mar, [facility] [address] [id number] [address] [place] [address], [place] [address] Mar, [facility] [address] [id number] [address] [place] [address], [place] [address] Mar, [facility] [address] [id number] [address] [place] [address], [place] [address] Mar, [facility] [address] [id number] [address] [place] [address], [place] [address] 14 Mar, 2013 [facility] [address] [id number] [address] [place] [address], [place] [address] 14 Mar, 2013 [facility] [address] [id number] [address] [place] [address] [place] [address] Mar, [facility] [address] [id number] [address] [place] [address], [place] [address] Mar, [facility] [address] [id number] [address] [place] [address], [place] [address] Mar, [facility] [address] [id number] [address] [place] [address], [place] [address] Mar, [facility] [address] [id number] [address] [place] [address], [place] [address] Mar, [facility] [address] [id number] [address] [place] [address], [place] [address] Mar, [facility] [address] [id number] [address] [place] [address], [place] [address] Mar, [facility] [address] [id number] [address] [place] [address], [place] [address] Mar, [facility] [address] [id number] [address] [place] [address], [place] [address] Feb, [facility] [address] [id number] [address] [place] [address], [place] [address] Feb, [facility] [address] [id number] [address] [place] [address], [place] [address] Feb, [facility] [address] [id number] [address] [place] [address], [place] [address] Feb, [facility] [address] [id number] [address] [place] [address], [place] [address] Feb, [facility] [address] [id number] [address] [place] [address], [place] [address] Feb, [facility] [address] [id number] [address] [place] [address], [place] [address] Feb, [facility] [address] [id number] [address] [place] [address], [place] [address] Feb, [facility] [address] [id number] [address] [place] [address], [place] [address] Feb, [facility] [address] [id number] [address] [place] [address], [place] [address] Feb, [facility] [address] [id number] [address] [place] [address], [place] [address] Feb, [facility] [address] [id number] [address] [place] [address], [place] [address] Feb, [facility] [address] [id number] [address] [place] [address], [place] [address] Feb, [facility] [address] [id number] [address] [place] [address], [place] [address] Feb, [facility] [address] [id number] [address] [place] [address], [place] [address] Feb, [facility] [address] [id number] [address] [place] [address], [place] [address] Feb, [facility] [address] [id number] [address] [place] [address], [place] [address] Feb, [facility] [address] [id number] [address] [place] [address], [place] [address] Feb, [facility] [address] [id number] [address] [place] [address], [place] [address] Feb, [facility] [address] [id number] [address] [place] [address], [place] [address] Feb, [facility] [address] [id number] [address] [place] [address], [place] [address] Feb, [facility] [address] [id number] [address] [place] [address], [place] [address] Feb, [facility] [address] [id number] [address] [place] [address], [place] [address] Feb, [facility] [address] [id number] [address] [place] [address], [place] [address] 24 Jan, 2013 [facility] [address] [id number] [address] [place] [address], [place] [address] 24 Jan, 2013 [facility] [address] [id number] [address] [place] [address], [place] [address] Jan, [facility] [address] [id number] [address] [place] [address], [place] [address] 18 Jan, 2013 [facility] [address] [id number] [address] [place] [address], [place] [address] 18 Jan, 2013 [facility] [address] [id number] [address] [place] [address], [place] [address] Jan, [facility] [address] [id number] [address] [place] [address], [place] [address] Jan, [facility] [address] [id number] [address] [place] [address], [place] [address] 17 Jan, 2013 [facility] [address] [id number] [address] [place] [address], [place] [address] 17 Jan, 2013 [facility] [address] [id number] [address] [place] [address], [place] [address] Jan, [facility] [address] [id number] [address] [place] [address], [place] [address] Jan, [facility] [address] [id number] [address] [place] [address], [place] [address] Jan, [facility] [address] [id number] [address] [place] [address], [place] [address] Jan, [facility] [address] [id number] [address] [place] [address], [place] [address] Dec, [facility] [address] [id number] [address] [place] [address], [place] [address] Dec, [facility] [address] [id number] [address] [place] [address], [place] [address] Dec, [facility] [address] [id number] [address] [place] [address], [place] [address] Dec, [facility] [address] [id number] [address] [place] [address], [place] [address] Dec, [facility] [address] [id number] [address] [place] [address], [place] [address] Dec, [facility] [address] [id number] [address] [place] [address], [place] [address] Nov, [facility] [address] [id number] [address] [place] [address], [place] [address] Nov, [facility] [address] [id number] [address] [place] [address], [place] [address] Nov, [facility] [address] [id number] [address] [place] [address], [place] [address] Nov, [facility] [address] [id number] [address] [place] [address], [place] [address] Nov, [facility] [address] [id number] [address] [place] [address], [place] [address] Nov, [facility] [address] [id number] [address] [place] [address], [place] [address] 28 Oct, 2012 [facility] [address] [id number] [address] [place] [address], [place] [address] 27 Sep, 2012 [facility] [address] [id number] [address] [place] [address], [place] [address] 26 Sep, 2012 [facility] [address] [id number] [address] [place] [address], [place] [address] 25 Sep, 2012 [facility] [address] [id number] [address] [place] [address], [place] [address] 25 Oct, 2012 [facility] [address] [id number] [address] [place] [address], [place] [address] 18 Sep, 2012 [facility] [address] [id number] [address] [place] [address], [place] [address] 13 Oct, 2012 IMMUNIZATIONS No Known Immunizations SOCIAL HISTORY Never Assessed REASON FOR VISIT PLAN OF CARE VITAL SIGNS Height 559 in 2013-03-20 Weight 137 lbs 2013-03-20 Temperature 97.7 degrees Fahrenheit 2013-03-20 Heart Rate 92 bpm 2013-03-20 Respiratory Rate 16 2013-03-20 Blood pressure systolic 120 mmHg 2013-03-20 Blood pressure diastolic 56 mmHg 2013-03-20 MEDICATIONS Unknown Medications RESULTS No Results PROCEDURES Procedure Date Ordered Result Body Site URINE-NO MICRO Mar 20, 2013 INSTRUCTIONS MEDICATIONS ADMINISTERED No Known Medications [...]
--- OUTSIDE RECORDS SUMMARY | 2019-06-25 21:18 | XMS REPORT ---
Author Author Sheyla JURADO Organization [facility] Address [address] [place] [address] Care Team Providers Care [employer] Name Role Phone GENARO JURADO Unavailable PROBLEMS Type Condition ICD9-CM Code CVG98-TV Code Onset Dates Condition S tatus SNOMED Code Problem ADHD (attention deficit hyperactivity disorder), combi amparo type F90.2 Active 30422032 Problem Unspecified mood [affective] disorder F39 Active 40984537 Problem Intrinsic atopic dermatitis L20.84 Ac tive 02225921 Problem Slow transit constipation K59.01 Acti ve 94138524 Problem Anxiety disorder, unspecified type F41.9 Active 571489605 Problem Major depressive disorder, single episode, mild F3 2.0 Active 63925225 Problem Irritable bowel syndrome with diarrhea K58.0 Active 350133073 ALLERGIES No Information ENCOUNTERS Encounter Location Date Diagnosis [place] [address] [place] [id number] [place] [address] May, [place] [address] [place] [address] May, [place] [address] [place] [id number] [place] [address] May, [facility] [address] [place] [address] Apr, [place] [address] [place] [address] Apr, Third trimester Z3 4.93 and Gestational diabetes mellitus (GDM) in third trimester, gestational diabetes method of control unspecified O24.419 [facility] [address] [place] [id number] [place] [address] Apr, [facility] [address] [place] [id number] [place] [address] 12 Apr, 2019 Diet controlled gestational diabetes mellitus (GDM) in third trimester O24.410 [place] [address] [address] 11 Apr, 2019 30 weeks gestation of pregna ncy Z3A.30 ; Diet controlled gestational diabetes mellitus (GDM) in third trimester O24.410 and Encounter for immunization Z23 [place] [address] [address] 05 Apr, 2019 [place] [address] [address] 04 Apr, 2019 Gestational diabetes O24.419 [place] [address] [address] 03 Apr, 2019 [place] [address] [address] Apr, Abnormal glucose tolerance i n O99.810 [place] [address] [address] Mar, Abnormal glucose tolerance i n O99.810 [place] [address] [place] [id number] [place] [address] Mar, Second trimester Z 33.1 ; Nausea and vomiting during O21.9 and 27 weeks gestation of Z3A.27 [place] [address] [place] [id number] [place] [address] Mar, [facility] [address] [place] [id number] [place] [address] Mar, Non-intractable vomiting wit h nausea, unspecified vomiting type R11.2 [place] [address] [place] [id number] [place] [address] Feb, [place] [address] [address] Feb, Second trimester Z 33.1 [facility] [address] [place] [id number] [place] [address] 13 Feb, 2019 Second trimester Z 34.92 ; 21 weeks gestation of Z3A.21 and Exposure to STD Z20.2 [facility] [address] [place] [id number] [place] [address] 07 Feb, 2019 Second trimester Z 33.1 [facility] [address] [place] [id number] [place] [address] 05 Feb, 2019 Non-intractable vomiting wit h nausea, unspecified vomiting type R11.2 [place] [address] [address] 31 Jan, 2019 [facility] [address] [place] [id number] [place] [address] Jan, [place] [address] [address] Jan, First trimester Z3 4.91 [facility] [address] [place] [id number] [place] [address] 16 Jan, 2019 Second trimester Z 34.92 and Intrinsic atopic dermatitis L20.84 [facility] [address] [place] [id number] [place] [address] Dec, First trimester Z3 4.91 [place] [address] [place] [id number] [place] [address] 22 Dec, 2018 Second trimester Z 34.92 and Family history of neural tube defect Z82.0 [place] [address] [place] [id number] [place] [address] 18 Dec, [address] [address] Dec, Second trimester Z 34.92 ; Family history of neural tube defect Z82.0 ; History of asthma Z87.09 and Wheezing R06.2 [place] [address] [place] [id number] [place] [address] Dec, [facility] [id number] [place] [address] Dec, [facility] [address] [facility] [id number] [address] [place] [address] Nov, care, subsequent pr egnancy in first trimester Z34.81 [facility] [address] [facility] [id number] [address] [place] [address] Nov, First trimester Z3 4.91 ; 10 weeks gestation of Z3A.10 and Nausea and vomiting during O21.9 [facility] [address] [facility] [id number] [address] [place] [address] 14 Nov, 2018 care, subsequent pr egnancy in first trimester Z34.81 [facility] [address] [facility] [id number] [address] [place] [address] 05 Nov, [address] [facility] [address] [facility] [id number] [address] [place] [address] 26 Oct, 2018 care, subsequent pr egnancy in first trimester Z34.81 and 6 weeks gestation [address]A.01 [facility] [address] [facility] [id number] [address] [place] [address] Oct, [facility] [address] [facility] [id number] [address] [place] [address] Oct, Heat rash L74.0 [facility] [address] [facility] [id number] [address] [place] [address] Aug, UTI symptoms R39.9 [facility] [address] [facility] [id number] [address] [place] [address] Aug, [facility] [address] [facility] [id number] [address] [place] [address] Aug, UTI symptoms R39.9 [facility] [address] [facility] [id number] [address] [place] [address] Aug, Hematuria, unspecified type R31.9 [facility] [address] [facility] [id number] [address] [place] [address] Jul, Sore throat J02.9 ; UTI symp toms R39.9 and Hematuria, unspecified type R31.9 [facility] [address] [facility] [id number] [address] [place] [address] June, Irritable bowel syndrome wit h diarrhea K58.0 and Major depressive disorder, single episode, mild F32.0 [facility] [address] [facility] [id number] [address] [place] [address] June, ADHD (attention deficit hype ractivity disorder), combined type F90.2 ; Anxiety disorder, unspecified type F41.9 and Unspecified mood [affective] disorder F39 [facility] [address] [place] [id number] [place] [address] May, ADHD (attention deficit hype ractivity disorder), combined type F90.2 ; Anxiety disorder, unspecified type F41.9 ; Unspecified mood [affective] disorder F39 and Other usp (current) 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 Z79.899 [facility] [address] [place] [id number] [place] [address] May, Slow transit constipation K5 9.01 [facility] [address] [place] [id number] [place] [address] May, ADHD (attention deficit hype ractivity disorder), combined type F90.2 [facility] [address] [facility] [id number] [address] [place] [address] May, [facility] [address] [place] [id number] [place] [address] May, Abdominal pain R10.9 [facility] [address] [facility] [id number] [address] [place] [address] Apr, [facility] [address] [place] [id number] [place] [address] Apr, [facility] [address] [place] [id number] [place] [address] Apr, ADHD (attention deficit hype ractivity disorder), combined type F90.2 [facility] [address] [place] [id number] [place] [address] Apr, Abdominal pain R10.9 [facility] [address] [address] Apr, [facility] [address] [place] [id number] [place] [address] Mar, [facility] [address] [place] [id number] [place] [address] Mar, ADHD (attention deficit hype ractivity disorder), combined type F90.2 ; Anxiety disorder, unspecified type F41.9 and Unspecified mood [affective] disorder F39 [facility] [address] [address] Mar, Viral gastroenteritis A08.4 and Slow transit constipation K59.01 [facility] [address] [place] [id number] [place] [address] Mar, Viral gastroenteritis A08.4 [facility] [address] [address] Mar, ADHD (attention deficit hype ractivity disorder), combined type F90.2 [facility] [address] [place] [id number] [place] [address] Feb, Slow transit constipation K5 9.01 ; Missed period N92.[address] [facility] [address] [place] [id number] [place] [address] Feb, ADHD (attention deficit hype ractivity disorder), combined type F90.2 [facility] [address] [address] Jan, Nausea R11.0 and Viral upper respiratory tract infection J06.9 [place] [address] [facility] [id number] [address] [place] [address] Jan, [place] [address] [facility] [id number] [address] [place] [address] Jan, ADHD (attention deficit hype ractivity disorder), combined type F90.2 ; Anxiety disorder, unspecified type F41.9 and Unspecified mood [affective] disorder F39 [place] [address] [id number] [address] [place] [address] Jan, Well woman exam with routine gynecological exam Z01.419 ; Routine screening for STI (sexually transmitted infection) Z11.3 and Vaginal jose B37.3 [place] [address] [facility] [id number] [address] [place] [address] Dec, [place] [address] [facility] [id number] [address] [place] [address] Dec, [place] [address] [facility] [id number] [address] [place] [address] Dec, ADHD (attention deficit hype ractivity disorder), combined type F90.2 ; Anxiety disorder, unspecified type F41.9 and Unspecified mood [affective] disorder F39 [place] [address] [facility] [id number] [address] [place] [address] Dec, Unspecified mood [affective] disorder F39 ; Anxiety disorder, unspecified type F41.9 and ADHD (attention deficit hyperactivity disorder), combined type F90.2 [facility] [address] [facility] [id number] [address] [place] [address] Nov, Other specified bacterial ag ents as the cause of diseases classified elsewhere B96.89 and Otitis media, unspecified, bilateral H66.93 [facility] [address] [facility] [id number] [address] [place] [address] Nov, Sore throat J02.9 [address] nasopharyngitis J00 [facility] [address] [facility] [id number] [address] [place] [address] Nov, ADHD (attention deficit hype ractivity disorder), combined type F90.2 ; Anxiety disorder, unspecified type F41.9 and Unspecified mood [affective] disorder F39 [facility] [address] [facility] [id number] [address] [place] [address] Oct, ADHD (attention deficit hype ractivity disorder), combined type F90.2 [facility] [address] [id number] [address] [place] [address] Oct, ADHD (attention deficit hype ractivity disorder), combined type F90.2 ; Anxiety disorder, unspecified type F41.9 and Unspecified mood [affective] disorder F39 [facility] [address] [facility] [id number] [address] [place] [address] Sep, ADHD (attention deficit hype ractivity disorder), combined type F90.2 [facility] [address] [facility] [id number] [address] [place] [address] Sep, [facility] [address] [facility] [id number] [address] [place] [address] Aug, ADHD (attention deficit hype ractivity disorder), combined type F90.2 ; Major depressive disorder, single episode, mild F32.0 and Anxiety disorder, unspecified type F41.9 [facility] [address] [facility] [id number] [address] [place] [address] Aug, Sore throat J02.9 ; Other sp ecified bacterial agents as the cause of diseases classified elsewhere B96.89 and Acute tonsillitis due to other specified organisms J03.80 [facility] [address] [facility] [id number] [address] [place] [address] Aug, ADHD (attention deficit hype ractivity disorder), combined type F90.2 [facility] [address] [facility] [id number] [address] [place] [address] Jul, ADHD (attention deficit hype ractivity disorder), combined type F90.2 [facility] [address] [id number] [address] [place] [address] June, ADHD (attention deficit hype ractivity disorder), combined type F90.2 ; Major depressive disorder, single episode, mild F32.0 and Anxiety disorder, unspecified type F41.9 [facility] [address] [facility] [id number] [address] [place] [address] June, [facility] [address] [id number] [address] [place] [address] June, ADHD (attention deficit hype ractivity disorder), combined type F90.2 [facility] [address] [id number] [address] [place] [address] May, [facility] [address] [id number] [address] [place] [address] May, ADHD (attention deficit hype ractivity disorder), combined type F90.2 ; Major depressive disorder, single episode, mild F32.0 and Anxiety disorder, unspecified type F41.9 [facility] [address] [id number] [address] [place] [address] May, Anxiety disorder, unspecifie d type F41.9 [facility] [address] [id number] [address] [place] [address] Apr, [facility] [address] [id number] [address] [place] [address] Apr, Anxiety disorder, unspecifie d type F41.9 [facility] [address] [id number] [address] [place] [address] Apr, Anxiety disorder, unspecifie d type F41.9 ; Major depressive disorder, single episode, mild F32.0 and ADHD (attention deficit hyperactivity disorder), combined type F90.2 [facility] [address] [id number] [address] [place] [address] Apr, [facility] [address] [id number] [address] [place] [address] Apr, ADHD (attention deficit hype ractivity disorder), combined type F90.2 ; Anxiety state F41.1 ; Depressive disorder, not elsewhere classified F32.9 ; Major depressive disorder, single episode, mild F32.0 and Anxiety disorder, unspecified type F41.9 [facility] [address] [facility] [id number] [address] [place] [address] Mar, ADHD (attention deficit hype ractivity disorder), combined type F90.2 [facility] [address] [facility] [id number] [address] [place] [address] 20 Mar, [address] [facility] [address] [facility] [id number] [address] [place] [address] 13 Mar, 2017 Screening for STD sexually t ransmitted disease Z11.3 ; Vaginal candidiasis B37.3 and Irritable bowel syndrome with diarrhea K58.0 [facility] [address] [facility] [id number] [address] [place] [address] Mar, [facility] [address] [facility] [id number] [address] [place] [address] Feb, ADHD (attention deficit hype ractivity disorder), combined type F90.2 [facility] [address] [id number] [address] [place] [address] Feb, Depressive disorder, not els ewhere classified F32.9 ; Anxiety state F41.1 and ADHD (attention deficit hyperactivity disorder), combined type F90.2 [facility] [address] [facility] [id number] [address] [place] [address] Feb, Depressive disorder, not els ewhere classified F32.9 ; Anxiety state F41.1 and ADHD (attention deficit hyperactivity disorder), combined type F90.2 [facility] [address] [facility] [id number] [address] [place] [address] Feb, ADHD (attention deficit hype ractivity disorder), combined type F90.2 [facility] [address] [facility] [id number] [address] [place] [address] Jan, Other viral agents as the ca use of diseases classified elsewhere B97.89 and Acute upper respiratory infection, unspecified J06.9 [facility] [address] [place] [id number] [place] [address] Jan, ADHD (attention deficit hype ractivity disorder), combined type F90.2 ; Major depressive disorder, single episode, mild F32.0 and Anxiety disorder, unspecified type F41.9 [facility] [address] [place] [id number] [place] [address] Jan, [facility] [address] [place] [id number] [place] [address] Jan, ADHD (attention deficit hype ractivity disorder), combined type F90.2 ; Major depressive disorder, single episode, mild F32.0 and Anxiety disorder, unspecified type F41.9 [facility] [address] [place] [id number] [place] [address] Dec, Irritable bowel syndrome wit h diarrhea K58.0 and Lower abdominal pain R10.30 [facility] [address] [place] [id number] [place] [address] 09 Dec, 2016 Hospital discharge follow-up Z09 ; Mesenteric adenitis I88.0 ; IBD (inflammatory bowel disease) K52.[address] [facility] [address] [place] [id number] [place] [address] Nov, ADHD (attention deficit hype ractivity disorder), combined type F90.2 ; Major depressive disorder, single episode, mild F32.0 and Anxiety disorder, unspecified type F41.9 [facility] [address] [place] [id number] [place] [address] Nov, Anxiety state F41.1 ; ADHD ( attention deficit hyperactivity disorder), combined type F90.2 ; Major depressive disorder, single episode, mild F32.0 and Anxiety disorder, unspecified type F41.9 [facility] [address] [place] [id number] [place] [address] Oct, Anxiety state F41.1 ; ADHD ( attention deficit hyperactivity disorder), combined type F90.2 ; Major depressive disorder, single episode, mild F32.0 and Anxiety disorder, unspecified type F41.9 [place] [address] [place] [id number] [place] [address] Oct, ADHD (attention deficit hype ractivity disorder), combined type F90.2 ; Major depressive disorder, single episode, mild F32.0 and Anxiety disorder, unspecified type F41.9 [place] [address] [place] [id number] [place] [address] Oct, Major depressive disorder, s floresita episode, mild F32.0 ; Anxiety state F41.1 ; ADHD (attention deficit hyperactivity disorder), combined type F90.2 and Depressive disorder, not elsewhere classified F32.9 [facility] [address] [place] [id number] [place] [address] Oct, [facility] [address] [place] [id number] [place] [address] Oct, Cellulitis L03.90 and Planta r wart of right foot B07.0 [place] [address] [place] [id number] [place] [address] Aug, ADHD (attention deficit hype ractivity disorder), combined type F90.2 ; Major depressive disorder, single episode, mild F32.0 and Anxiety disorder, unspecified type F41.9 [place] [address] [place] [id number] [place] [address] Aug, [place] [address] [place] [id number] [place] [address] Jul, ADHD (attention deficit hype ractivity disorder), combined type F90.2 [place] [address] [place] [id number] [place] [address] Jul, Mesenteric adenitis I88.0 [facility] [address] [facility] [id number] [address] [place] [address] June, [facility] [address] [facility] [id number] [address] [place] [address] June, Lower abdominal pain R10.30 [facility] [address] [place] [id number] [place] [address] June, [facility] [address] [place] [id number] [place] [address] June, ADHD (attention deficit hype ractivity disorder), combined type F90.2 and Major depressive disorder, single episode, mild F32.0 [facility] [address] [place] [id number] [place] [address] May, [facility] [address] [place] [id number] [place] [address] May, ADHD (attention deficit hype ractivity disorder), combined type F90.2 and Major depressive disorder, single episode, mild F32.0 [facility] [address] [place] [id number] [place] [address] Apr, Abdominal pain R10.9 and Gas troenteritis and colitis, viral A08.4 [facility] [address] [place] [id number] [place] [address] Apr, [facility] [id number] [place] [id number] Mar, Acute urticaria L50.8 [facility] [address] [facility] [id number] [address] [place] [id number] Mar, [facility] [id number] [place] [phone] Feb, [facility] [id number] [place] [phone] Feb, Gastroenteritis K52.9 [facility] [address] [facility] [id number] [address] [place] [phone] Feb, Irritant contact dermatitis due to cosmetics L24.3 [facility] [address] [facility] [id number] [address] [place] [address] Jan, [facility] [address] [facility] [id number] [address] [place] [address] Jan, [facility] [address] [place] [id number] [address] [place] [address] Jan, ADHD (attention deficit hype ractivity disorder), combined type F90.2 and Major depressive disorder, single episode, mild F32.0 [facility] [address] [facility] [id number] [address] [place] [address] Dec, Flexural eczema L20.82 [facility] [address] [facility] [id number] [address] [place] [address] Dec, Encounter for test Z32.00 [facility] [address] [facility] [id number] [address] [place] [address] Dec, [facility] [address] [facility] [id number] [address] [place] [address] Dec, [facility] [address] [facility] [id number] [address] [place] [address] Dec, [facility] [address] [facility] [id number] [address] [place] [address] Nov, Sore throat J02.9 and Pharyn gitis, unspecified etiology J02.9 [facility] [address] [facility] [id number] [address] [place] [phone] Nov, [facility] [address] [facility] [id number] [address] [place] [address] Nov, [facility] [address] [facility] [id number] [address] [place] [address] Nov, Generalized abdominal pain R 10.84 and Slow transit constipation K59.01 [facility] [address] [id number] [place] [id number] Nov, Pharyngitis, unspecified lara ology J02.9 and Rhinitis, unspecified type J31.0 [facility] [address] [id number] [address] [place] [address] Oct, Depressive disorder, not els ewhere classified F32.9 and ADHD (attention deficit hyperactivity disorder), combined type F90.2 [facility] [address] [id number] [address] [place] [address] Oct, [facility] [address] [id number] [address] [place] [address] Oct, [facility] [address] [id number] [address] [place] [address] Oct, Strep throat J02.0 [facility] [address] [id number] [address] [place] [address] Oct, [facility] [address] [id number] [address] [place] [address] Oct, Well woman exam with routine gynecological exam Z01.419 and Screening for STD sexually transmitted disease Z11.3 [facility] [address] [id number] [address] [place] [address] Sep, ADHD (attention deficit hype ractivity disorder), combined type F90.2 ; Anxiety state F41.1 and Depressive disorder, not elsewhere classified F32.9 [facility] [address] [id number] [address] [place] [address] Sep, ADHD (attention deficit hype ractivity disorder), combined type F90.2 and Depressive disorder, not elsewhere classified F32.9 [facility] [address] [id number] [address] [place] [address] Aug, [facility] [address] [id number] [address] [place] [address] Aug, ADHD (attention deficit hype ractivity disorder), combined type F90.2 and Depressive disorder, not elsewhere classified F32.9 [facility] [address] [id number] [address] [place] [address] Aug, ADHD (attention deficit hype ractivity disorder), combined type F90.2 ; Anxiety state F41.1 and Depressive disorder, not elsewhere classified F32.9 [facility] [address] [id number] [address] [place] [address] Aug, [facility] [address] [id number] [address] [place] [address] Aug, [facility] [address] [id number] [address] [place] [address] Jul, ADHD (attention deficit hype ractivity disorder), combined type F90.2 ; Depressive disorder, not elsewhere classified F32.9 and Anxiety state F41.1 [facility] [address] [id number] [address] [place] [address] Jul, [facility] [address] [id number] [address] [place] [address] Jul, ADHD (attention deficit hype ractivity disorder), combined type F90.2 ; Anxiety state F41.1 and Depressive disorder, not elsewhere classified F32.9 [facility] [address] [id number] [address] [place] [address] June, [facility] [address] [id number] [place] [address] [id number] June, Constipation K59.00 [facility] [address] [id number] [address] [place] [address] May, Constipation K59.00 [facility] [address] [id number] [address] [place] [address] May, Irritable bowel syndrome wit h diarrhea K58.0 [facility] [address] [id number] [address] [place] [address] [place] [address] 15 May, 2015 [facility] [address] [id number] [address] [place] [address], [place] [address] 15 May, 2015 [facility] [address] [id number] [address] [place] [address], [place] [address] 14 May, 2014 [facility] [address] [id number] [address] [place] [address], [place] [address] 13 May, 2014 [facility] [address] [id number] [address] [place] [address], [place] [address] Jan, [facility] [address] [id number] [address] [place] [address], [place] [address] Jan, [facility] [address] [id number] [address] [place] [address], [place] [address] Jan, [facility] [address] [id number] [address] [place] [address], [place] [address] Jan, [facility] [address] [id number] [address] [place] [address], [place] [address] Jan, [facility] [address] [id number] [address] [place] [address], [place] [address] Jan, [facility] [address] [id number] [address] [place] [address], [place] [address] Nov, [facility] [address] [id number] [address] [place] [address], [place] [address] Nov, [facility] [address] [id number] [address] [place] [address], [place] [address] Oct, [facility] [address] [id number] [address] [place] [address], [place] [address] Oct, [facility] [address] [id number] [address] [place] [address], [place] [address] Sep, [facility] [address] [id number] [address] [place] [address], [place] [address] Sep, [facility] [place] [facility] [address] [id number] [facility] [place] [address] Aug, 2013 [facility] [place] [facility] [address] [id number] [facility] [place] [address] Aug, 2013 [facility] [place] [facility] [address] [id number] [address] [place] [address], [place] [address] Aug, 2013 [facility] [place] [facility] [address] [id number] [address] [place] [address], [place] [address] Aug, 2013 [facility] [place] [facility] [address] [id number] [address] [place] [address], [place] [address] Aug, 2013 [facility] [place] [facility] [address] [id number] [address] [place] [address], [place] [address] Aug, 2013 [facility] [place] [facility] [address] [id number] [address] [place] [address], [place] [address] Aug, [facility] [place] [facility] [address] [id number] [address] [place] [address], [place] [address] Aug, [facility] [place] [facility] [address] [id number] [address] [place] [address], [place] [address] Jul, [facility] [place] [facility] [address] [id number] [address] [place] [address], [place] [address] Jul, [facility] [place] [facility] [address] [id number] [address] [place] [address], [place] [address] Jul, [facility] [place] [facility] [address] [id number] [address] [place] [address], [place] [address] Jul, [facility] [place] [facility] [address] [id number] [address] [place] [address], [place] [address] Jul, [facility] [place] [facility] [address] [id number] [address] [place] [address], [place] [address] Jul, [facility] [place] [facility] [address] [id number] [address] [place] [address], [place] [address] Jul, [facility] [place] [facility] [address] [id number] [address] [place] [address], [place] [address] Jul, [facility] [address] [id number] [facility] [place] [address] Jul, [facility] [address] [id number] [address] [place] [address], [place] [address] June, [facility] [address] [id number] [address] [place] [address], [place] [address] June, [facility] [address] [id number] [address] [place] [address], [place] [address] May, [facility] [address] [id number] [address] [place] [address], [place] [address] May, [facility] [address] [id number] [address] [place] [address], [place] [address] May, [facility] [address] [id number] [address] [place] [address], [place] [address] May, [facility] [address] [id number] [address] [place] [address], [place] [address] May, [facility] [address] [id number] [address] [place] [address], [place] [address] May, [facility] [address] [id number] [address] [place] [address], [place] [address] May, [facility] [address] [id number] [address] [place] [address], [place] [address] May, [facility] [address] [id number] [address] [place] [address], [place] [address] May, [facility] [address] [id number] [address] [place] [address], [place] [address] May, [facility] [place] [facility] [address] [id number] [address] [place] [address], [place] [address] May, [facility] [place] [facility] [address] [id number] [address] [place] [address], [place] [address] May, [facility] [address] [id number] [address] [place] [address] Apr, [facility] [address] [id number] [address] [place] [address], [place] [address] Apr, [facility] [place] [facility] [address] [id number] [address] [place] [address], [place] [address] Apr, [facility] [place] [facility] [address] [id number] [address] [place] [address], [place] [address] Apr, [facility] [place] [facility] [address] [id number] [address] [place] [address], [place] [address] Mar, [facility] [place] [facility] [address] [id number] [address] [place] [address], [place] [address] Mar, [facility] [place] [facility] [address] [id number] [address] [place] [address], [place] [address] Mar, [facility] [place] [facility] [address] [id number] [address] [place] [address], [place] [address] Mar, [facility] [address] [id number] [address] [place] [address], [place] [address] Mar, [facility] [place] [facility] [address] [id number] [address] [place] [address], [place] [address] Mar, [facility] [address] [id number] [address] [place] [address], [place] [address] Mar, [facility] [place] [facility] [address] [id number] [address] [place] [address], [place] [address] Mar, [facility] [place] [facility] [address] [id number] [address] [place] [address], [place] [address] Mar, [facility] [place] [facility] [address] [id number] [address] [place] [address], [place] [address] Mar, [facility] [place] [facility] [address] [id number] [address] [place] [address], [place] [address] 14 Mar, 2013 [facility] [place] [facility] [address] [id number] [address] [place] [address], [place] [address] 14 Mar, 2013 [facility] [address] [id number] [address] [place] [address], [place] [address] Mar, [facility] [address] [id number] [address] [place] [address], [place] [address] Mar, [facility] [address] [id number] [address] [place] [address], [place] [address] Mar, [facility] [address] [id number] [address] [place] [address], [place] [address] Mar, [facility] [address] [id number] [address] [place] [address], [place] [address] Mar, [facility] [address] [id number] [address] [place] [address], [place] [address] Mar, [facility] [address] [id number] [address] [place] [address], [place] [address] Mar, [facility] [address] [id number] [address] [place] [address], [place] [address] Mar, [facility] [address] [id number] [address] [place] [address], [place] [address] Feb, [facility] [address] [id number] [address] [place] [address], [place] [address] Feb, [facility] [address] [id number] [address] [place] [address], [place] [address] Feb, [facility] [address] [id number] [address] [place] [address], [place] [address] Feb, [facility] [place] [facility] [address] [id number] [address] [place] [address], [place] [address] Feb, [facility] [place] [facility] [address] [id number] [address] [place] [address], [place] [address] Feb, [facility] [address] [id number] [address] [place] [address], [place] [address] Feb, [facility] [address] [id number] [address] [place] [address], [place] [address] Feb, [facility] [address] [id number] [address] [place] [address], [place] [address] Feb, [facility] [address] [id number] [address] [place] [address], [place] [address] Feb, [facility] [address] [id number] [address] [place] [address], [place] [address] Feb, [facility] [address] [id number] [address] [place] [address], [place] [address] Feb, [facility] [address] [id number] [address] [place] [address], [place] [address] Feb, [facility] [address] [id number] [address] [place] [address], [place] [address] Feb, [facility] [address] [id number] [address] [place] [address], [place] [address] Feb, [facility] [address] [id number] [address] [place] [address], [place] [address] Feb, [facility] [address] [id number] [address] [place] [address], [place] [address] Feb, [facility] [address] [id number] [address] [place] [address], [place] [address] Feb, [facility] [address] [id number] [address] [place] [address], [place] [address] Feb, [facility] [address] [id number] [address] [place] [address], [place] [address] Feb, [facility] [address] [id number] [address] [place] [address], [place] [address] Feb, [facility] [address] [id number] [address] [place] [address], [place] [address] Feb, [facility] [address] [id number] [address] [place] [address], [place] [address] Feb, [facility] [address] [id number] [address] [place] [address], [place] [address] Jan, [facility] [address] [id number] [address] [place] [address], [place] [address] Jan, [facility] [address] [id number] [address] [place] [address], [place] [address] Jan, [facility] [address] [id number] [address] [place] [address], [place] [address] Jan, [facility] [address] [id number] [address] [place] [address], [place] [address] Jan, [facility] [address] [id number] [address] [place] [address], [place] [address] Jan, [facility] [address] [id number] [address] [place] [address], [place] [address] Jan, [facility] [address] [id number] [address] [place] [address], [place] [address] Jan, [facility] [address] [id number] [address] [place] [address], [place] [address] Jan, [facility] [address] [id number] [address] [place] [address], [place] [address] Jan, [facility] [address] [id number] [address] [place] [address], [place] [address] Jan, [facility] [address] [id number] [address] [place] [address], [place] [address] Jan, [facility] [address] [id number] [address] [place] [address], [place] [address] Jan, [facility] [address] [id number] [address] [place] [address], [place] [address] Dec, [facility] [address] [id number] [address] [place] [address], [place] [address] Dec, [facility] [place] [facility] [address] [id number] [address] [place] [address], [place] [address] Dec, [facility] [address] [id number] [address] [place] [address], [place] [address] Dec, [facility] [address] [id number] [address] [place] [address], [place] [address] Dec, [facility] [address] [id number] [address] [place] [address], [place] [address] Dec, [facility] [address] [id number] [address] [place] [address], [place] [address] Nov, [facility] [address] [id number] [address] [place] [address], [place] [address] Nov, [facility] [address] [id number] [address] [place] [address], [place] [address] Nov, [facility] [address] [id number] [address] [place] [address], [place] [address] Nov, [facility] [address] [id number] [address] [place] [address], [place] [address] Nov, [facility] [address] [id number] [address] [place] [address], [place] [address] Nov, [facility] [address] [id number] [address] [place] [address], [place] [address] 28 Oct, 2012 [facility] [address] [id number] [address] [place] [address], [place] [address] 27 Sep, 2012 [facility] [address] [id number] [address] [place] [address], [place] [address] 26 Sep, 2012 [facility] [address] [id number] [address] [place] [address], [place] [address] 25 Oct, 2012 [facility] [address] [id number] [address] [place] [address], [place] [address] 25 Oct, 2012 [facility] [address] [id number] [address] [place] [address], [place] [address] Oct, [facility] [address] [facility] [id number] [address] [place] [address] Oct, IMMUNIZATIONS No Known Immunizations SOCIAL HISTORY [...]
--- OUTSIDE RECORDS SUMMARY | 2019-06-25 21:19 | XMS REPORT ---
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 Name Role Phone RHIANNON GENARO Unavailable PROBLEMS Type Condition ICD9-CM Code IBD02-II Code Onset Dates Condition S tatus SNOMED Code Problem ADHD (attention deficit hyperactivity disorder), combi amparo type F90.2 Active 15367925 Problem Unspecified mood [affective] disorder F39 Active 35758682 Problem Intrinsic atopic dermatitis L20.84 Ac tive 49190501 Problem Slow transit constipation K59.01 Acti ve 92369010 Problem Anxiety disorder, unspecified type F41.9 Active 079835324 Problem Major depressive disorder, single episode, mild F3 2.0 Active 50989577 Problem Irritable bowel syndrome with diarrhea K58.0 Active 153368344 ALLERGIES No Information ENCOUNTERS Encounter Location Date Diagnosis [place] [address] [address] May, [place] [address] [address] May, [place] [address] [address] May, [facility] [address] [address] Apr, [place] [address] [address] Apr, Third trimester Z34.93 and Ges tational diabetes mellitus (GDM) in third trimester, gestational diabetes method of control unspecified O24.419 [facility] [address] [address] Apr, [place] [address] [address] 12 Apr, 2019 Diet controlled gestational diabetes jessenia litus (GDM) in third trimester O24.[address] [address] 11 Apr, 2019 30 weeks gestation of Z3A.30 ; Diet controlled gestational diabetes mellitus (GDM) in third trimester O24.410 and Encounter for immunization Z23 [address] [address] 05 Apr, [address] [address] 04 Apr, 2019 Gestational diabetes O24.[address] [address] 03 Apr, [address] [address] 02 Apr, 2019 Abnormal glucose tolerance in O99.[address] [address] 27 Mar, 2019 Abnormal glucose tolerance in O99.[address] [address] 25 Mar, 2019 Second trimester Z33.1 ; Nause a and vomiting during O21.9 and 27 weeks gestation of Z3A.27 [place] [id number] [place] [address] Mar, [facility] [address] [place] [address] [id number] [place] [address] 07 Mar, 2019 Non-intractable vomiting wit h nausea, unspecified vomiting type R11.[address] [address] Feb, [address] [address] Feb, Second trimester Z33.[address] [address] 13 Feb, 2019 Second trimester Z34.92 ; 21 w eeks gestation of Z3A.21 and Exposure to STD Z20.2 [facility] [address] [address] 07 Feb, 2019 Second trimester Z33.1 [facility] [address] [facility] [id number] [address] [address] 05 Feb, 2019 Non-intractable vomiting wit h nausea, unspecified vomiting type R11.2 [facility] [address] [address] 31 Jan, 2019 [facility] [address] [address] Jan, [facility] [address] [address] Jan, First trimester Z34.91 [place] [address] [address] 16 Jan, 2019 Second trimester Z34.92 and In [facility] atopic dermatitis L20.84 [facility] [address] [address] 27 Dec, 2018 First trimester Z34.91 [facility] [address] [address] 22 Dec, 2018 Second trimester Z34.92 and Fa kim history of neural tube defect Z82.0 [facility] [address] [address] 18 Dec, 2018 [facility] [address] [address] 13 Dec, 2018 Second trimester Z34.92 ; Fami ly history of neural tube defect Z82.0 ; History of asthma Z87.09 and Wheezing R06.2 [facility] [address] [place] [id number] [place] [address] 08 Dec, 2018 [facility] [address] [id number] [place] [address] Dec, [place] [address] [place] [id number] [place] [address] Nov, care, subsequent in f irst trimester Z34.81 [place] [address] [address] Nov, First trimester Z34.91 ; 10 we eks gestation of Z3A.10 and Nausea and vomiting during O21.9 [place] [address] [address] Nov, care, subsequent in f irst trimester Z34.81 [facility] [place] [id number] [address] [place] [address] 05 Nov, 2018 Vomiting O21.9 [place] [address] [address] 26 Oct, 2018 care, subsequent in f irst trimester Z34.81 and 6 weeks gestation of Z3A.01 [place] [address] [address] Oct, [facility] [address] [place] [id number] [address] [place] [address] Oct, Heat rash L74.0 [place] [address] [address] Aug, UTI symptoms R39.9 [place] [address] [address] Aug, [place] [address] [address] Aug, UTI symptoms R39.9 [place] [address] [address] Aug, Hematuria, unspecified type R31.9 [facility] [address] [facility] [id number] [address] [place] [address] Jul, Sore throat J02.9 ; UTI symp toms R39.9 and Hematuria, unspecified type R31.9 [facility] [address] [address] June, Irritable bowel syndrome with diarrhea K 58.0 and Major depressive disorder, single episode, mild F32.0 [facility] [address] [address] June, ADHD (attention deficit hyperactivity di sorder), combined type F90.2 ; Anxiety disorder, unspecified type F41.9 and Unspecified mood [affective] disorder F39 [place] [address] [address] May, ADHD (attention deficit hyperactivity di sorder), combined type F90.2 ; Anxiety disorder, unspecified type F41.9 ; Unspecified mood [affective] disorder F39 and 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 [place] [address] [address] May, Slow transit constipation K59.01 [place] [address] [address] May, ADHD (attention deficit hyperactivity di sorder), combined type F90.2 [place] [address] [address] May, [place] [address] [address] May, Abdominal pain R10.9 [place] [address] [address] Apr, [place] [address] [address] Apr, [place] [address] [address] Apr, ADHD (attention deficit hyperactivity di sorder), combined type F90.2 [place] [address] [address] Apr, Abdominal pain R10.9 [facility] [address] [address] Apr, [place] [address] [address] Mar, [place] [address] [address] Mar, ADHD (attention deficit hyperactivity di sorder), combined type F90.2 ; Anxiety disorder, unspecified type F41.9 and Unspecified mood [affective] disorder F39 [place] [address] [address] Mar, Viral gastroenteritis A08.4 and Slow tra nsit constipation K59.01 [facility] [address] [place] [id number] [place] [address] Mar, Viral gastroenteritis A08.4 [place] [address] [address] Mar, ADHD (attention deficit hyperactivity di sorder), combined type F90.2 [place] [address] [address] Feb, Slow transit constipation K59.01 ; [facility] N92.6 and Nausea R11.0 [place] [address] [address] Feb, ADHD (attention deficit hyperactivity di sorder), combined type F90.2 [facility] [address] [place] [id number] [place] [address] Jan, Nausea R11.0 and Viral upper respiratory tract infection J06.9 [place] [address] [address] Jan, [place] [address] [address] Jan, ADHD (attention deficit hyperactivity di sorder), combined type F90.2 ; Anxiety disorder, unspecified type F41.9 and Unspecified mood [affective] disorder F39 [facility] [address] [place] [id number] [place] [address] Jan, Well woman exam with routine gynecologic al exam Z01.419 ; Routine screening for STI (sexually transmitted infection) Z11.3 and Vaginal jose B37.3 [place] [address] [place] [id number] [place] [address] Dec, [place] [address] [address] Dec, [place] [address] [address] Dec, ADHD (attention deficit hyperactivity di sorder), combined type F90.2 ; Anxiety disorder, unspecified type F41.9 and Unspecified mood [affective] disorder F39 [place] [address] [place] [id number] [place] [address] Dec, Unspecified mood [affective] disorder F3 9 ; Anxiety disorder, unspecified type F41.9 and ADHD (attention deficit hyperactivity disorder), combined type F90.2 [facility] [address] [place] [id number] [place] [address] Nov, Other specified bacterial ag ents as the cause of diseases classified elsewhere B96.89 and Otitis media, unspecified, bilateral H66.93 [facility] [address] [facility] [id number] [address] [place] [address] Nov, Sore throat J02.9 and Acute nasopharyngitis J00 [place] [address] [place] [id number] [place] [address] Nov, ADHD (attention deficit hyperactivity di sorder), combined type F90.2 ; Anxiety disorder, unspecified type F41.9 and Unspecified mood [affective] disorder F39 [place] [address] [id number] [place] [address] Oct, ADHD (attention deficit hyperactivity di sorder), combined type F90.2 [place] [address] [place] [id number] [place] [address] Oct, ADHD (attention deficit hyperactivity di sorder), combined type F90.2 ; Anxiety disorder, unspecified type F41.9 and Unspecified mood [affective] disorder F39 [facility] [address] [id number] [place] [address] Sep, ADHD (attention deficit hyperactivity di sorder), combined type F90.2 [facility] [address] [place] [id number] [place] [address] Sep, [facility] [address] [place] [id number] [place] [address] Aug, ADHD (attention deficit hyperactivity di sorder), combined type F90.2 ; Major depressive disorder, single episode, mild F32.0 and Anxiety disorder, unspecified type F41.9 [facility] [address] [facility] [id number] [address] [place] [address] Aug, Sore throat J02.9 ; Other sp ecified bacterial agents as the cause of diseases classified elsewhere B96.89 and Acute tonsillitis due to other specified organisms J03.80 [facility] [address] [place] [id number] [place] [address] Aug, ADHD (attention deficit hyperactivity di sorder), combined type F90.2 [facility] [address] [place] [id number] [place] [address] Jul, ADHD (attention deficit hyperactivity di sorder), combined type F90.2 [facility] [address] [id number] [place] [address] June, ADHD (attention deficit hyperactivity di sorder), combined type F90.2 ; Major depressive disorder, single episode, mild F32.0 and Anxiety disorder, unspecified type F41.9 [facility] [address] [id number] [place] [address] June, [facility] [address] [place] [id number] [place] [address] June, ADHD (attention deficit hyperactivity di sorder), combined type F90.2 [facility] [address] [place] [id number] [place] [address] May, [facility] [address] [address] May, ADHD (attention deficit hyperactivity di sorder), combined type F90.2 ; Major depressive disorder, single episode, mild F32.0 and Anxiety disorder, unspecified type F41.9 [facility] [address] [address] May, Anxiety disorder, unspecified type F41.9 [facility] [address] [address] Apr, [facility] [address] [address] Apr, Anxiety disorder, unspecified type F41.9 [facility] [address] [address] Apr, Anxiety disorder, unspecified type F41.9 ; Major depressive disorder, single episode, mild F32.0 and ADHD (attention deficit hyperactivity disorder), combined type F90.2 [facility] [address] [address] Apr, [facility] [address] [address] Apr, ADHD (attention deficit hyperactivity di sorder), combined type F90.2 ; Anxiety state F41.1 ; Depressive disorder, not elsewhere classified F32.9 ; Major depressive disorder, single episode, mild F32.0 and Anxiety disorder, unspecified type F41.9 [facility] [address] [address] Mar, ADHD (attention deficit hyperactivity di sorder), combined type F90.2 [facility] [address] [address] Mar, Nausea R11.0 [facility] [address] [place] [id number] [place] [address] 13 Mar, 2017 Screening for STD sexually transmitted d isease Z11.3 ; Vaginal candidiasis B37.3 and Irritable bowel syndrome with diarrhea K58.0 [place] [address] [place] [id number] [place] [address] 04 Mar, 2017 [place] [address] [address] Feb, ADHD (attention deficit hyperactivity di sorder), combined type F90.2 [place] [address] [address] Feb, Depressive disorder, not elsewhere class ified F32.9 ; Anxiety state F41.1 and ADHD (attention deficit hyperactivity disorder), combined type F90.2 [place] [address] [address] Feb, Depressive disorder, not elsewhere class ified F32.9 ; Anxiety state F41.1 and ADHD (attention deficit hyperactivity disorder), combined type F90.2 [place] [address] [place] [id number] [place] [address] Feb, ADHD (attention deficit hyperactivity di sorder), combined type F90.2 [facility] [address] [facility] [id number] [address] [place] [address] Jan, Other viral agents as the ca use of diseases classified elsewhere B97.89 and Acute upper respiratory infection, unspecified J06.9 [place] [address] [address] Jan, ADHD (attention deficit hyperactivity di sorder), combined type F90.2 ; Major depressive disorder, single episode, mild F32.0 and Anxiety disorder, unspecified type F41.9 [place] [address] [place] [id number] [place] [address] Jan, [place] [address] [address] Jan, ADHD (attention deficit hyperactivity di sorder), combined type F90.2 ; Major depressive disorder, single episode, mild F32.0 and Anxiety disorder, unspecified type F41.9 [place] [address] [address] 28 Dec, 2016 Irritable bowel syndrome with diarrhea K 58.0 and Lower abdominal pain R10.30 [place] [address] [address] 09 Dec, 2016 Hospital discharge follow-up Z09 ; Mesen teric adenitis I88.0 ; IBD (inflammatory bowel disease) K52.9 and Nausea R11.0 [place] [address] [address] Nov, ADHD (attention deficit hyperactivity di sorder), combined type F90.2 ; Major depressive disorder, single episode, mild F32.0 and Anxiety disorder, unspecified type F41.9 [place] [address] [address] Nov, Anxiety state F41.1 ; ADHD (attention de ficit hyperactivity disorder), combined type F90.2 ; Major depressive disorder, single episode, mild F32.0 and Anxiety disorder, unspecified type F41.9 [place] [address] [address] Oct, Anxiety state F41.1 ; ADHD (attention de ficit hyperactivity disorder), combined type F90.2 ; Major depressive disorder, single episode, mild F32.0 and Anxiety disorder, unspecified type F41.9 [place] [address] [address] Oct, ADHD (attention deficit hyperactivity di sorder), combined type F90.2 ; Major depressive disorder, single episode, mild F32.0 and Anxiety disorder, unspecified type F41.9 [place] [address] [address] Oct, Major depressive disorder, single episod e, mild F32.0 ; Anxiety state F41.1 ; ADHD (attention deficit hyperactivity disorder), combined type F90.2 and Depressive disorder, not elsewhere classified F32.9 [facility] [address] [place] [id number] [place] [address] Oct, [facility] [address] [place] [id number] [place] [address] Oct, Cellulitis L03.90 and Planta r wart of right foot B07.0 [facility] [address] [address] Aug, ADHD (attention deficit hyperactivity di sorder), combined type F90.2 ; Major depressive disorder, single episode, mild F32.0 and Anxiety disorder, unspecified type F41.9 [place] [address] [address] Aug, [place] [address] [address] Jul, ADHD (attention deficit hyperactivity di sorder), combined type F90.2 [place] [address] [address] Jul, Mesenteric adenitis I88.0 [place] [address] [address] June, [facility] [address] [place] [id number] [place] [address] June, Lower abdominal pain R10.30 [facility] [address] [address] June, [facility] [address] [address] June, ADHD (attention deficit hyperactivity di sorder), combined type F90.2 and Major depressive disorder, single episode, mild F32.0 [facility] [address] [address] May, [facility] [address] [address] May, ADHD (attention deficit hyperactivity di sorder), combined type F90.2 and Major depressive disorder, single episode, mild F32.0 [facility] [address] [address] Apr, Abdominal pain R10.9 and Gas troenteritis and colitis, viral A08.4 [place] [address] [address] Apr, [facility] [place] [address] [address] Mar, Acute urticaria L50.8 [place] [address] [address] Mar, [place] [address] [address] Feb, [facility] [place] [address] [address] Feb, Gastroenteritis K52.9 [place] [address] [address] Feb, Irritant contact dermatitis due to awais tics L24.3 [place] [address] [address] Jan, [place] [address] [address] Jan, [place] [address] [address] Jan, ADHD (attention deficit hyperactivity di sorder), combined type F90.2 and Major depressive disorder, single episode, mild F32.0 [facility] [place] [address] [address] Dec, Flexural eczema L20.82 [place] [address] [address] Dec, Encounter for test Z32.00 [facility] [address] [id number] [place] [address] Dec, [facility] [address] [place] [address] [place] [address] Dec, [facility] [address] [place] [id number] [place] [address] Dec, [facility] [address] [facility] [id number] [address] [place] [address] Nov, Sore throat J02.9 and Pharyn gitis, unspecified etiology J02.9 [facility] [address] [address] Nov, [facility] [address] [place] [id number] [place] [address] Nov, [facility] [address] [address] Nov, Generalized abdominal pain R10.84 and Sl ow transit constipation K59.01 [facility] [address] [facility] [id number] 05 Nov, 2015 Pharyngitis, unspecified etiology J02.9 and Rhinitis, unspecified type J31.0 [facility] [address] [place] [id number] [place] [address] 29 Oct, 2015 Depressive disorder, not elsewhere class ified F32.9 and ADHD (attention deficit hyperactivity disorder), combined type F90.2 [facility] [address] [place] [id number] [place] [address] 29 Oct, 2015 [facility] [address] [address] Oct, [facility] [address] [facility] [id number] [address] [place] [address] Oct, 2015 Strep throat J02.0 [facility] [address] [place] [address] [place] [address] 16 Oct, 2015 [facility] [address] [address] Oct, Well woman exam with routine gynecologic al exam Z01.419 and Screening for STD sexually transmitted disease Z11.3 [facility] [address] [address] Sep, ADHD (attention deficit hyperactivity di sorder), combined type F90.2 ; Anxiety state F41.1 and Depressive disorder, not elsewhere classified F32.9 [facility] [address] [address] Sep, ADHD (attention deficit hyperactivity di sorder), combined type F90.2 and Depressive disorder, not elsewhere classified F32.9 [facility] [address] [address] Aug, [facility] [address] [address] Aug, ADHD (attention deficit hyperactivity di sorder), combined type F90.2 and Depressive disorder, not elsewhere classified F32.9 [facility] [address] [address] Aug, ADHD (attention deficit hyperactivity di sorder), combined type F90.2 ; Anxiety state F41.1 and Depressive disorder, not elsewhere classified F32.9 [facility] [address] [place] [id number] [place] [address] Aug, [facility] [address] [address] Aug, [facility] [address] [address] Jul, ADHD (attention deficit hyperactivity di sorder), combined type F90.2 ; Depressive disorder, not elsewhere classified F32.9 and Anxiety state F41.1 [facility] [address] [address] Jul, [facility] [address] [address] 08 Ka[place], 2016 ADHD (attention deficit hyperactivity di sorder), combined type F90.2 ; Anxiety state F41.1 and Depressive disorder, not elsewhere classified F32.9 [facility] [address] [id number] [place] [address] June, [facility] [address] [id number] [place] [id number] June, Constipation K59.00 [facility] [address] [id number] [place] [address] May, Constipation K59.00 [facility] [address] [facility] [id number] [address] [place] [address] May, Irritable bowel syndrome wit h diarrhea K58.0 [facility] [address] [place] [id number] [place] [address] May, [facility] [address] [place] [address] [place] [address] May, [facility] [address] [place] [address] [place] [address] May, [facility] [address] [place] [id number] [place] [address] May, [facility] [address] [address] Jan, [facility] [address] [place] [address] [place] [address] Jan, [facility] [address] [place] [id number] [place] [address] Jan, [facility] [address] [place] [address] [place] [address] Jan, [facility] [address] [place] [address] [place] [address] Jan, [facility] [address] [place] [address] [place] [address] Jan, [facility] [facility] [id number] [place] [address] Nov, [facility] [address] [facility] [id number] [place] [address] Nov, [facility] [address] [facility] [id number] [place] [address] Oct, [facility] [address] [id number] [place] [address] Oct, [facility] [address] [facility] [id number] [place] [address] Sep, [facility] [address] [facility] [id number] [place] [address] Sep, [facility] [address] [id number] [place] [address] Aug, [facility] [address] [id number] [place] [address] Aug, [facility] [address] [id number] [place] [address] Aug, [facility] [address] [facility] [id number] [place] [address] Aug, [facility] [address] [id number] [place] [address] Aug, [facility] [address] [id number] [place] [address] Aug, [facility] [address] [id number] [place] [address] Aug, [facility] [address] [facility] [id number] [place] [address] Aug, [facility] [address] [id number] [place] [address] Jul, [facility] [address] [facility] [id number] [place] [address] Jul, [facility] [address] [id number] [place] [address] Jul, [facility] [address] [id number] [facility] [address] Jul, [facility] [address] [id number] [place] [address] Jul, [facility] [address] [id number] [place] [address] Jul, [facility] [address] [id number] [place] [address] Jul, [facility] [address] [id number] [place] [address] Jul, [facility] [address] [id number] [place] [address] Jul, [facility] [address] [id number] [place] [address] June, [facility] [address] [id number] [place] [address] June, [facility] [address] [id number] [place] [address] May, [facility] [address] [id number] [place] [address] May, [facility] [address] [id number] [place] [address] May, [facility] [address] [id number] [place] [address] May, [facility] [address] [id number] [place] [address] May, [facility] [address] [id number] [place] [address] May, [facility] [address] [id number] [place] [address] 14 May, 2013 [facility] [address] [id number] [place] [address] May, [facility] [address] [id number] [place] [address] 08 May, 2013 [facility] [address] [id number] [place] [address] May, [facility] [address] [id number] [place] [address] May, [facility] [address] [id number] [place] [address] May, [facility] [address] [id number] [place] [address] Apr, [facility] [address] [id number] [place] [address] Apr, [facility] [address] [id number] [place] [address] Apr, [facility] [address] [id number] [place] [address] Apr, [facility] [address] [id number] [place] [address] Mar, [facility] [address] [id number] [place] [address] Mar, [facility] [address] [id number] [place] [address] Mar, [facility] [address] [id number] [place] [address] Mar, [facility] [address] [id number] [place] [address] Mar, [facility] [address] [id number] [place] [address] Mar, [facility] [address] [id number] [place] [address] Mar, [facility] [address] [id number] [place] [address] Mar, [facility] [address] [id number] [place] [address] Mar, [facility] [address] [id number] [place] [address] 19 Mar, 2013 [facility] [address] [id number] [place] [address] Mar, [facility] [address] [id number] [place] [address] Mar, [facility] [address] [id number] [place] [address] Mar, [facility] [address] [id number] [place] [address] Mar, [facility] [address] [id number] [place] [address] Mar, [facility] [address] [id number] [place] [address] Mar, [facility] [address] [id number] [place] [address] Mar, [facility] [address] [id number] [place] [address] Mar, [facility] [address] [id number] [place] [address] Mar, [facility] [address] [id number] [place] [address] Mar, [facility] [address] [id number] [place] [address] Feb, [facility] [address] [id number] [place] [address] Feb, [facility] [address] [id number] [place] [address] Feb, [facility] [address] [id number] [place] [address] Feb, [facility] [address] [id number] [place] [address] Feb, [facility] [address] [id number] [place] [address] Feb, [facility] [address] [facility] [id number] [place] [address] Feb, [facility] [address] [facility] [id number] [place] [address] Feb, [facility] [address] [facility] [id number] [place] [address] Feb, [facility] [address] [id number] [place] [address] Feb, [facility] [address] [facility] [id number] [place] [address] Feb, [facility] [address] [id number] [place] [address] Feb, [facility] [address] [id number] [place] [address] Feb, [facility] [address] [id number] [place] [address] Feb, [facility] [address] [facility] [id number] [place] [address] Feb, [facility] [address] [id number] [place] [address] Feb, [facility] [address] [id number] [place] [address] Feb, [facility] [address] [id number] [place] [address] Feb, [facility] [address] [facility] [id number] [place] [address] Feb, [facility] [address] [facility] [id number] [place] [address] Feb, [facility] [address] [id number] [place] [address] Feb, [facility] [address] [id number] [place] [address] Feb, [facility] [address] [id number] [place] [address] Feb, [facility] [address] [id number] [place] [address] Jan, [facility] [address] [id number] [place] [address] Jan, [facility] [address] [id number] [place] [address] Jan, [facility] [address] [id number] [place] [address] Jan, [facility] [address] [id number] [place] [address] Jan, [facility] [address] [id number] [place] [address] Jan, [facility] [address] [id number] [place] [address] Jan, [facility] [address] [id number] [place] [address] Jan, [facility] [address] [id number] [place] [address] Jan, [facility] [address] [id number] [place] [address] Jan, [facility] [address] [id number] [place] [address] Jan, [facility] [address] [id number] [place] [address] Jan, [facility] [address] [id number] [place] [address] Jan, [facility] [id number] [place] [address] Dec, [facility] [address] [id number] [place] [address] Dec, [facility] [address] [id number] [place] [address] Dec, [facility] [id number] [place] [address] Dec, [facility] [id number] [place] [address] Dec, [facility] [id number] [place] [address] Dec, [facility] [id number] [place] [address] Nov, [facility] [id number] [place] [address] Nov, [facility] [id number] [place] [address] Nov, [facility] [id number] [place] [address] Nov, [facility] [id number] [place] [address] Nov, [facility] [id number] [place] [address] Nov, [facility] [id number] [place] [address] 28 Oct, 2012 [facility] [id number] [place] [address] 27 Oct, 2012 [facility] [id number] [place] [address] 26 Oct, 2012 [facility] [id number] [place] [address] Oct, [facility] [id number] [place] [address] Oct, [facility] [id number] [place] [address] 18 Oct, 2012 [facility] [id number] [place] [address] 13 Oct, 2012 IMMUNIZATIONS No Known Immunizations [...]
--- OUTSIDE RECORDS SUMMARY | 2019-06-25 21:19 | XMS REPORT ---
Author Author Sheyla CHIN Organization 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 Name Role Phone LEONARD CHIN Unavailable PROBLEMS Type Condition ICD9-CM Code [id number] Code Onset Dates Condition S tatus SNOMED Code Problem ADHD (attention deficit hyperactivity disorder), combi amparo type F90.2 Active 96071705 Problem Unspecified mood [affective] disorder F39 Active 09844827 Problem Intrinsic atopic dermatitis L20.84 Ac tive 52679110 Problem Slow transit constipation K59.01 Acti ve 33800148 Problem Anxiety disorder, unspecified type F41.9 Active 874499806 Problem Major depressive disorder, single episode, mild F3 2.0 Active 15674463 Problem Irritable bowel syndrome with diarrhea K58.0 Active 907337220 ALLERGIES No Information ENCOUNTERS Encounter Location Date Diagnosis [place] [address] [address] May, [place] [address] [address] May, [place] [address] [address] Apr, [place] [address] [address] Apr, [place] [address] [address] Apr, Diet controlled gestational diabetes jessenia litus (GDM) in third trimester O24.410 [place] [address] [address] Apr, 30 weeks gestation of Z3A.30 ; Diet controlled gestational diabetes mellitus (GDM) in third trimester O24.410 and Encounter for immunization Z23 [place] [address] [address] 05 Apr, 2019 [place] [address] [address] 04 Apr, 2019 Gestational diabetes O24.419 [place] [address] [address] 03 Apr, 2019 [place] [address] [address] 02 Apr, 2019 Abnormal glucose tolerance in O99.810 [place] [address] [address] Mar, Abnormal glucose tolerance in O99.810 [place] [address] [address] 25 Mar, 2019 Second trimester Z33.1 ; Nause a and vomiting during O21.9 and 27 weeks gestation of Z3A.27 [place] [address] [address] Mar, [facility] [address] [place], [place] [id number] [address] [place] [address] Mar, Non-intractable vomiting wit h nausea, unspecified vomiting type R11.2 [place] [address] [address] Feb, [place] [address] [address] Feb, Second trimester Z33.1 [place] [address] [address] 13 Feb, 2019 Second trimester Z34.92 ; 21 w eeks gestation of Z3A.21 and Exposure to STD Z20.2 [place] [address] [address] 07 Feb, 2019 Second trimester Z33.[address] [facility] [address] [place] [id number] [place] [address] Feb, Non-intractable vomiting wit h nausea, unspecified vomiting type R11.2 [place] [address] [address] Jan, [place] [address] [address] Jan, [place] [address] [address] Jan, First trimester Z34.91 [place] [address] [address] Jan, Second trimester Z34.92 and In trinsic atopic dermatitis L20.[address] [address] Dec, First trimester Z34.[address] [address] Dec, Second trimester Z34.92 and Karen alvarez history of neural tube defect Z82.0 [place] [address] [address] Dec, [address] [address] Dec, Second trimester Z34.92 ; Fami ly history of neural tube defect Z82.0 ; History of asthma Z87.09 and Wheezing R06.2 [place] [id number] [place] [address] Dec, [facility] [address] [facility] [address] Dec, [address] [address] Nov, care, subsequent in f irst trimester Z34.81 [place] [address] [address] Nov, First trimester Z34.91 ; 10 we eks gestation of Z3A.10 and Nausea and vomiting during O21.9 [place] [address] [facility] [place] [address] 14 Nov, 2018 care, subsequent in f irst trimester Z34.[address] [facility] [address] [id number] [address] [place] [address] 05 Nov, 2018 Vomiting O21.9 [place] [address] [address] 26 Oct, 2018 care, subsequent in f irst trimester Z34.81 and 6 weeks gestation of Z3A.01 [place] [address] [address] 20 Oct, 2018 [facility] [place] [address] [id number] [address] [place] [address] 06 Oct, 2018 Heat rash L74.0 [place] [address] [address] Aug, UTI symptoms R39.9 [place] [address] [address] Aug, [place] [address] [address] Aug, UTI symptoms R39.9 [place] [address] [address] Aug, Hematuria, unspecified type R31.9 [facility] WALK [facility] [place] [address] [id number] [address] [place] [address] Jul, Sore throat J02.9 ; UTI symp toms R39.9 and Hematuria, unspecified type R31.9 [place] [address] [address] June, Irritable bowel syndrome with diarrhea K 58.0 and Major depressive disorder, single episode, mild F32.0 [place] [address] [address] June, ADHD (attention deficit hyperactivity di sorder), combined type F90.2 ; Anxiety disorder, unspecified type F41.9 and Unspecified mood [affective] disorder F39 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 [address] [address] May, Slow transit constipation K59.01 [facility] [address] [address] May, ADHD (attention deficit hyperactivity di sorder), combined type F90.2 [facility] [address] [address] May, [facility] [address] [address] May, Abdominal pain R10.9 [facility] [address] [address] Apr, [facility] [address] [address] Apr, [facility] [address] [address] Apr, ADHD (attention deficit hyperactivity di sorder), combined type F90.2 [facility] [address] [address] Apr, Abdominal pain R10.9 [facility] [address] [address] Apr, [facility] [address] [address] Mar, [facility] [address] [address] Mar, ADHD (attention deficit hyperactivity di sorder), combined type F90.2 ; Anxiety disorder, unspecified type F41.9 and Unspecified mood [affective] disorder F39 [place] [address] [address] Mar, Viral gastroenteritis A08.4 and Slow tra nsit constipation K59.01 [facility] WALK IN [facility] [address] [place] [address] Mar, Viral gastroenteritis A08.4 [place] [address] [address] Mar, ADHD (attention deficit hyperactivity di sorder), combined type F90.2 [place] [address] [address] Feb, Slow transit constipation K59.01 ; Misse d period N92.6 and Nausea R11.0 [place] [address] [address] Feb, ADHD (attention deficit hyperactivity di sorder), combined type F90.2 [facility] [place] [address] [place] [id number] [place] [address] Jan, Nausea R11.0 and Viral upper respiratory tract infection J06.9 [place] [address] [address] Jan, [place] [address] [address] Jan, ADHD (attention deficit hyperactivity di sorder), combined type F90.2 ; Anxiety disorder, unspecified type F41.9 and Unspecified mood [affective] disorder F39 [place] [address] [address] Jan, Well woman exam with routine gynecologic al exam Z01.419 ; Routine screening for STI (sexually transmitted infection) Z11.3 and Vaginal jose B37.3 [place] [address] [address] Dec, [place] [address] [address] Dec, [place] [address] [address] Dec, ADHD (attention deficit hyperactivity di sorder), combined type F90.2 ; Anxiety disorder, unspecified type F41.9 and Unspecified mood [affective] disorder F39 [place] [address] [address] Dec, Unspecified mood [affective] disorder F3 9 ; Anxiety disorder, unspecified type F41.9 and ADHD (attention deficit hyperactivity disorder), combined type F90.2 [facility] IN [facility] [address] [place] [id number] [address] [address] Nov, Other specified bacterial ag ents as the cause of diseases classified elsewhere B96.89 and Otitis media, unspecified, bilateral H66.93 [facility] IN [facility] [address] [place] [id number] [address] [address] Nov, Sore throat J02.9 and Acute nasopharyngitis J00 [place] [address] [place] [id number] [place] [address] Nov, ADHD (attention deficit hyperactivity di sorder), combined type F90.2 ; Anxiety disorder, unspecified type F41.9 and Unspecified mood [affective] disorder F39 [place] [address] [place] [id number] [place] [address] Oct, ADHD (attention deficit hyperactivity di sorder), combined type F90.2 [place] [address] [address] Oct, ADHD (attention deficit hyperactivity di sorder), combined type F90.2 ; Anxiety disorder, unspecified type F41.9 and Unspecified mood [affective] disorder F39 [place] [address] [address] Sep, ADHD (attention deficit hyperactivity di sorder), combined type F90.2 [facility] [address] [place] [id number] [place] [address] Sep, [facility] [address] [address] Aug, ADHD (attention deficit hyperactivity di sorder), combined type F90.2 ; Major depressive disorder, single episode, mild F32.0 and Anxiety disorder, unspecified type F41.9 [facility] [address] [id number] [address] [place] [address] Aug, Sore throat J02.9 ; Other sp ecified bacterial agents as the cause of diseases classified elsewhere B96.89 and Acute tonsillitis due to other specified organisms J03.80 [facility] [address] [place] [id number] [place] [address] Aug, ADHD (attention deficit hyperactivity di sorder), combined type F90.2 [place] [address] [address] Jul, ADHD (attention deficit hyperactivity di sorder), combined type F90.2 [facility] [address] [address] June, ADHD (attention deficit hyperactivity di sorder), combined type F90.2 ; Major depressive disorder, single episode, mild F32.0 and Anxiety disorder, unspecified type F41.9 [facility] [address] [address] June, [facility] [address] [address] June, ADHD (attention deficit hyperactivity di sorder), combined type F90.2 [facility] [address] [address] May, [facility] [address] [address] May, ADHD (attention deficit hyperactivity di sorder), combined type F90.2 ; Major depressive disorder, single episode, mild F32.0 and Anxiety disorder, unspecified type F41.9 [place] [address] [address] May, Anxiety disorder, unspecified type F41.9 [facility] [address] [address] Apr, [place] [address] [address] Apr, Anxiety disorder, unspecified type F41.9 [place] [address] [address] Apr, Anxiety disorder, unspecified type F41.9 ; Major depressive disorder, single episode, mild F32.0 and ADHD (attention deficit hyperactivity disorder), combined type F90.2 [place] [address] [address] Apr, [place] [address] [address] Apr, ADHD (attention deficit hyperactivity di sorder), combined type F90.2 ; Anxiety state F41.1 ; Depressive disorder, not elsewhere classified F32.9 ; Major depressive disorder, single episode, mild F32.0 and Anxiety disorder, unspecified type F41.9 [place] [address] [address] Mar, ADHD (attention deficit hyperactivity di sorder), combined type F90.2 [place] [address] [address] Mar, Nausea R11.0 [place] [address] [address] Mar, Screening for STD sexually transmitted d isease Z11.3 ; Vaginal candidiasis B37.3 and Irritable bowel syndrome with diarrhea K58.0 [place] [address] [address] 04 Mar, 2017 [place] [address] [place] [id number] [place] [address] Feb, ADHD (attention deficit hyperactivity di sorder), combined type F90.2 [facility] [address] [place] [id number] [place] [address] Feb, Depressive disorder, not elsewhere class ified F32.9 ; Anxiety state F41.1 and ADHD (attention deficit hyperactivity disorder), combined type F90.2 [place] [address] [address] Feb, Depressive disorder, not elsewhere class ified F32.9 ; Anxiety state F41.1 and ADHD (attention deficit hyperactivity disorder), combined type F90.2 [place] [address] [address] Feb, ADHD (attention deficit hyperactivity di sorder), combined type F90.[address] [facility] [address] [id number] [address] [place] [address] Jan, Other viral agents as the ca use of diseases classified elsewhere B97.89 and Acute upper respiratory infection, unspecified J06.9 [place] [address] [address] Jan, ADHD (attention deficit hyperactivity di sorder), combined type F90.2 ; Major depressive disorder, single episode, mild F32.0 and Anxiety disorder, unspecified type F41.9 [place] [address] [place] [id number] [place] [address] Jan, [place] [address] [address] Jan, ADHD (attention deficit hyperactivity di sorder), combined type F90.2 ; Major depressive disorder, single episode, mild F32.0 and Anxiety disorder, unspecified type F41.9 [place] [address] [place] [id number] [place] [address] Dec, Irritable bowel syndrome with diarrhea K 58.0 and Lower abdominal pain R10.30 [place] [address] [address] Dec, Hospital discharge follow-up Z09 ; Mesen teric adenitis I88.0 ; IBD (inflammatory bowel disease) K52.9 and Nausea R11.0 [place] [address] [address] Nov, ADHD (attention deficit hyperactivity di sorder), combined type F90.2 ; Major depressive disorder, single episode, mild F32.0 and Anxiety disorder, unspecified type F41.9 [place] [address] [address] Nov, Anxiety state F41.1 ; ADHD (attention de ficit hyperactivity disorder), combined type F90.2 ; Major depressive disorder, single episode, mild F32.0 and Anxiety disorder, unspecified type F41.[address] [address] Oct, Anxiety state F41.1 ; ADHD (attention de ficit hyperactivity disorder), combined type F90.2 ; Major depressive disorder, single episode, mild F32.0 and Anxiety disorder, unspecified type F41.9 [place] [address] [address] Oct, ADHD (attention deficit hyperactivity di sorder), combined type F90.2 ; Major depressive disorder, single episode, mild F32.0 and Anxiety disorder, unspecified type F41.[address] [address] Oct, Major depressive disorder, single episod e, mild F32.0 ; Anxiety state F41.1 ; ADHD (attention deficit hyperactivity disorder), combined type F90.2 and Depressive disorder, not elsewhere classified F32.[address] [facility] [address] [place] [id number] [place] [address] 16 Oct, 2016 [facility] [address] [place] [id number] [place] [address] Oct, Cellulitis L03.90 and Planta r wart of right foot B07.0 [place] [address] [address] Aug, ADHD (attention deficit hyperactivity di sorder), combined type F90.2 ; Major depressive disorder, single episode, mild F32.0 and Anxiety disorder, unspecified type F41.9 [place] [address] [address] Aug, [place] [address] [address] Jul, ADHD (attention deficit hyperactivity di sorder), combined type F90.2 [place] [address] [address] Jul, Mesenteric adenitis I88.0 [place] [address] [address] June, [facility] [address] [place] [id number] [place] [address] June, Lower abdominal pain R10.30 [place] [address] [address] June, [place] [address] [address] June, ADHD (attention deficit hyperactivity di sorder), combined type F90.2 and Major depressive disorder, single episode, mild F32.0 [place] [address] [address] May, [place] [address] [address] May, ADHD (attention deficit hyperactivity di sorder), combined type F90.2 and Major depressive disorder, single episode, mild F32.0 [facility] [address] [id number] [address] [place] [address] Apr, Abdominal pain R10.9 and Gas troenteritis and colitis, viral A08.4 [place] [address] [address] Apr, [facility] [address] [place] [address] Mar, Acute urticaria L50.8 [place] [address] [address] Mar, [place] [address] [address] Feb, [facility] [address] [place] [id number] [place] [address] Feb, Gastroenteritis K52.9 [place] [address] [address] Feb, Irritant contact dermatitis due to awais tics L24.3 [place] [address] [address] Jan, [place] [address] [address] Jan, [place] [address] [address] Jan, ADHD (attention deficit hyperactivity di sorder), combined type F90.2 and Major depressive disorder, single episode, mild F32.[address] [facility] [address] [place] [id number] [place] [address] Dec, Flexural eczema L20.82 [place] [address] [address] Dec, Encounter for test Z32.00 [place] [address] [address] Dec, [place] [address] [address] Dec, [place] [address] [address] Dec, [facility] [address] [id number] [place] [address] Nov, Sore throat J02.9 and Pharyn gitis, unspecified etiology J02.9 [facility] [address] [place] [id number] [place] [address] Nov, [facility] [address] [address] Nov, [facility] [address] [address] Nov, Generalized abdominal pain R10.84 and Sl ow transit constipation K59.01 [facility] [address] [facility] [id number] Nov, Pharyngitis, unspecified etiology J02.9 and Rhinitis, unspecified type J31.0 [place] [address] [address] Oct, Depressive disorder, not elsewhere class ified F32.9 and ADHD (attention deficit hyperactivity disorder), combined type F90.2 [place] [address] [address] Oct, [facility] [address] [address] Oct, [facility] WALK IN [facility] [address] [id number] [place] [address] Oct, Strep throat J02.0 [facility] [address] [address] Oct, [place] [address] [address] 09 Oct, 2016 Well woman exam with routine gynecologic al exam Z01.419 and Screening for STD sexually transmitted disease Z11.3 [place] [address] [address] Sep, ADHD (attention deficit hyperactivity di sorder), combined type F90.2 ; Anxiety state F41.1 and Depressive disorder, not elsewhere classified F32.9 [facility] [address] [place] [id number] [place] [address] Sep, ADHD (attention deficit hyperactivity di sorder), combined type F90.2 and Depressive disorder, not elsewhere classified F32.9 [facility] [address] [place] [id number] [place] [address] Aug, [facility] [address] [address] Aug, ADHD (attention deficit hyperactivity di sorder), combined type F90.2 and Depressive disorder, not elsewhere classified F32.9 [place] [address] [place] [id number] [place] [address] Aug, ADHD (attention deficit hyperactivity di sorder), combined type F90.2 ; Anxiety state F41.1 and Depressive disorder, not elsewhere classified F32.9 [facility] [address] [address] Aug, [facility] [address] [place] [id number] [place] [address] Aug, [facility] [address] [address] Jul, ADHD (attention deficit hyperactivity di sorder), combined type F90.2 ; Depressive disorder, not elsewhere classified F32.9 and Anxiety state F41.1 [facility] [address] [place] [id number] [place] [address] Jul, [place] [address] [place] [id number] [place] [address] Jul, ADHD (attention deficit hyperactivity di sorder), combined type F90.2 ; Anxiety state F41.1 and Depressive disorder, not elsewhere classified F32.9 [facility] [address] [id number] [place] [address] June, [facility] [address] [facility] [place] [id number] June, Constipation K59.00 [facility] [address] [id number] [place] [address] May, Constipation K59.00 [facility] [id number] [place] [address] May, Irritable bowel syndrome wit h diarrhea K58.0 [facility] [address] [id number] [place] [address] 15 May, 2015 [facility] [id number] [place] [address] 15 May, 2015 [facility] [address] [id number] [place] [address] 14 May, 2014 [facility] [address] [id number] [place] [address] May, [facility] [id number] [place] [address] Jan, [facility] [id number] [place] [address] Jan, [facility] [id number] [place] [address] Jan, [facility] [id number] [place] [address] Jan, [facility] [id number] [place] [address] Jan, [facility] [id number] [place] [address] Jan, [facility] [id number] [place] [address] Nov, [facility] [id number] [place] [address] Nov, [facility] [id number] [place] [address] Oct, [facility] [address] [address] Oct, [facility] [address] [id number] [place] [address] Sep, [facility] [address] [id number] [place] [address] Sep, [facility] [address] [id number] [place] [address] Aug, [facility] [address] [id number] [place] [address] Aug, [facility] [address] [id number] [place] [address] Aug, [facility] [address] [id number] [place] [address] Aug, [facility] [address] [id number] [place] [address] Aug, [facility] [address] [id number] [place] [address] Aug, [facility] [address] [id number] [place] [address] Aug, [facility] [address] [id number] [place] [address] Aug, [facility] [address] [id number] [place] [address] Jul, [facility] [address] [id number] [place] [address] Jul, [facility] [address] [id number] [place] [address] Jul, [facility] [address] [id number] [place] [address] Jul, [facility] [address] [id number] [place] [address] Jul, [facility] [address] [id number] [place] [address] Jul, [facility] [address] [id number] [facility] [place] [address] Jul, [facility] [address] [id number] [facility] [place] [address] Jul, [facility] [address] [id number] [place] [address] Jul, [facility] [address] [id number] [place] [address] June, [facility] [address] [id number] [place] [address] June, [facility] [address] [id number] [facility] [address] May, [facility] [address] [id number] [place] [address] May, [facility] [address] [id number] [place] [address] May, [facility] [address] [id number] [place] [address] May, [facility] [address] [id number] [facility] [place] [address] May, [facility] [address] [id number] [place] [address] May, [facility] [address] [id number] [place] [address] May, [facility] [address] [id number] [place] [address] May, [facility] [address] [id number] [place] [address] May, [facility] [address] [id number] [place] [address] May, [facility] [address] [id number] [place] [address] May, [facility] [address] [id number] [place] [address] May, [facility] [address] [id number] [place] [address] Apr, [facility] [address] [id number] [place] [address] Apr, [facility] [address] [id number] [place] [address] Apr, [facility] [address] [id number] [place] [address] Apr, [facility] [address] [id number] [place] [address] Mar, [facility] [address] [id number] [place] [address] Mar, [facility] [address] [id number] [place] [address] Mar, [facility] [address] [id number] [place] [address] Mar, [facility] [address] [id number] [place] [address] Mar, [facility] [address] [id number] [place] [address] Mar, [facility] [address] [id number] [place] [address] Mar, [facility] [address] [id number] [place] [address] Mar, [facility] [address] [id number] [place] [address] Mar, [facility] [address] [id number] [place] [address] Mar, [facility] [address] [id number] [place] [address] Mar, [facility] [address] [id number] [place] [address] Mar, [facility] [address] [id number] [place] [address] Mar, [facility] [address] [id number] [place] [address] Mar, [facility] [address] [id number] [place] [address] Mar, [facility] [address] [id number] [place] [address] Mar, [facility] [address] [id number] [place] [address] Mar, [facility] [address] [id number] [place] [address] Mar, [facility] [address] [id number] [place] [address] Mar, [facility] [address] [id number] [place] [address] Mar, [facility] [address] [id number] [place] [address] Feb, [facility] [address] [id number] [place] [address] Feb, [facility] [address] [id number] [place] [address] Feb, [facility] [address] [id number] [place] [address] Feb, [facility] [address] [id number] [place] [address] Feb, [facility] [address] [id number] [place] [address] Feb, [facility] [address] [id number] [place] [address] Feb, [facility] [address] [id number] [place] [address] Feb, [facility] [address] [id number] [place] [address] Feb, [facility] [address] [id number] [place] [address] Feb, [facility] [address] [id number] [place] [address] Feb, [facility] [address] [id number] [place] [address] Feb, [facility] [address] [id number] [place] [address] Feb, [facility] [address] [id number] [place] [address] Feb, [facility] [address] [id number] [place] [address] Feb, [facility] [address] [id number] [place] [address] Feb, [facility] [address] [id number] [place] [address] Feb, [facility] [address] [id number] [place] [address] Feb, [facility] [address] [id number] [place] [address] Feb, [facility] [address] [id number] [place] [address] Feb, [facility] [address] [id number] [place] [address] Feb, [facility] [address] [id number] [place] [address] Feb, [facility] [address] [id number] [place] [address] Feb, [facility] [address] [id number] [place] [address] Jan, [facility] [address] [id number] [place] [address] Jan, [facility] [address] [id number] [place] [address] 19 Jan, 2013 [facility] [address] [id number] [place] [address] 18 Jan, 2013 [facility] [address] [id number] [place] [address] 18 Jan, 2013 [facility] [address] [id number] [place] [address] 18 Jan, 2013 [facility] [address] [id number] [place] [address] 18 Jan, 2013 [facility] [address] [id number] [place] [address] 17 Jan, 2013 [facility] [address] [id number] [place] [address] 17 Jan, 2013 [facility] [address] [id number] [place] [address] 2013 [facility] [address] [id number] [place] [address] 2013 [facility] [address] [id number] [place] [address] 04 Jan, 2013 [facility] [address] [id number] [place] [address] 04 Jan, 2013 [facility] [address] [id number] [place] [address] 20 Dec, 2012 [facility] [address] [id number] [place] [address] 20 Dec, 2012 [facility] [address] [id number] [place] [address] 20 Dec, 2012 [facility] [address] [id number] [place] [address] 20 Dec, 2012 [facility] [address] [id number] [place] [address] 15 Dec, 2012 [facility] [address] [id number] [place] [address] 15 Dec, 2012 [facility] [id number] [place] [address] Nov, [facility] [id number] [place] [address] Nov, [facility] [id number] [place] [address] Nov, [facility] [id number] [place] [address] Nov, [facility] [id number] [place] [address] Nov, [facility] [id number] [place] [address] Nov, [facility] [id number] [place] [address] Oct, [facility] [id number] [place] [address] 27 Oct, 2012 [facility] [id number] [place] [address] 26 Oct, 2012 [facility] [id number] [place] [address] Oct, [facility] [id number] [place] [address] Oct, [facility] [id number] [place] [address] 18 Oct, 2012 [facility] [id number] [place] [address] 13 Oct, 2012 IMMUNIZATIONS No Known Immunizations [...]
--- OUTSIDE RECORDS SUMMARY | 2019-06-25 21:19 | XMS REPORT ---
Author Author Sheyla JURADO Organization [facility] Address [address] [place] [address] Care Team Providers Care Mica Miner Blasting Name Role Phone RHIANNONJUANITAGENARO Unavailable PROBLEMS Type Condition ICD9-CM Code TIL11-VJ Code Onset Dates Condition S tatus SNOMED Code Problem ADHD (attention deficit hyperactivity disorder), combi amparo type F90.2 Active 35250530 Problem Unspecified mood [affective] disorder F39 Active 82639463 Problem Intrinsic atopic dermatitis L20.84 Ac tive 01543134 Problem Slow transit constipation K59.01 Acti ve 84744006 Problem Anxiety disorder, unspecified type F41.9 Active 146284665 Problem Major depressive disorder, single episode, mild F3 2.0 Active 50169763 Problem Irritable bowel syndrome with diarrhea K58.0 Active 097988391 ALLERGIES No Information ENCOUNTERS Encounter Location Date Diagnosis [place] [address] [address] May, [facility] [address] [address] May, [place] [address] [address] Apr, [facility] [address] [address] Apr, [place] [address] [address] Apr, Diet controlled gestational diabetes jessenia litus (GDM) in third trimester O24.410 [facility] [address] [address] Apr, 30 weeks gestation of Z3A.30 ; Diet controlled gestational diabetes mellitus (GDM) in third trimester O24.410 and Encounter for immunization Z23 [place] [address] [address] 05 Apr, 2019 [place] [address] [address] 04 Apr, 2019 Gestational diabetes O24.419 [place] [address] [address] 03 Apr, 2019 [place] [address] [address] 02 Apr, 2019 Abnormal glucose tolerance in O99.810 [place] [address] [address] Mar, Abnormal glucose tolerance in O99.810 [place] [address] [address] Mar, Second trimester Z33.1 ; Nause a and vomiting during O21.9 and 27 weeks gestation of Z3A.27 [place] [address] [address] Mar, [facility] [address] [place] [id number] [address] [place] [address] Mar, Non-intractable vomiting wit h nausea, unspecified vomiting type R11.2 [place] [address] [address] Feb, [place] [address] [address] Feb, Second trimester Z33.1 [place] [address] [address] Feb, Second trimester Z34.92 ; 21 w eeks gestation of Z3A.21 and Exposure to STD Z20.2 [place] [address] [address] 07 Feb, 2019 Second trimester Z33.1 [facility] [address] [place] [id number] [address] [place] [address] Feb, Non-intractable vomiting wit h nausea, unspecified vomiting type R11.2 [place] [address] [address] Jan, [place] [address] [address] Jan, [place] [address] [address] Jan, First trimester Z34.91 [place] [address] [address] 16 Jan, 2019 Second trimester Z34.92 and In trinsic atopic dermatitis L20.[address] [address] Dec, First trimester Z34.91 [place] [address] [address] Dec, Second trimester Z34.92 and Fa kim history of neural tube defect Z82.0 [place] [address] [address] Dec, [address] [address] Dec, Second trimester Z34.92 ; Fami ly history of neural tube defect Z82.0 ; History of asthma Z87.09 and Wheezing R06.2 [place] [address] [address] Dec, [facility] [address] [facility] [place] [address] Dec, [address] [address] Nov, care, subsequent in f irst trimester Z34.81 [place] [address] [address] Nov, First trimester Z34.91 ; 10 we eks gestation of Z3A.10 and Nausea and vomiting during O21.9 [place] [address] [address] 14 Nov, 2018 care, subsequent in f irst trimester Z34.81 [facility] [address] FORMERLY NAMED [facility] [id number] [address] [place] [address] 05 Nov, 2018 Vomiting O21.9 [place] [address] [address] 26 Oct, 2018 care, subsequent in f irst trimester Z34.81 and 6 weeks gestation of Z3A.01 [place] [address] [address] 20 Oct, 2018 [facility] WALK [facility] [place] [address] [address] [place] [id number] [address] [place] [address] 06 Oct, 2018 Heat rash L74.0 [place] [address] [address] Aug, UTI symptoms R39.9 [place] [address] [address] Aug, [place] [address] [address] Aug, UTI symptoms R39.9 [place] [address] [address] Aug, Hematuria, unspecified type R31.9 [facility]ALK [facility] [place] [address] [address] [place] [id number] [address] [place] [address] Jul, Sore throat J02.9 ; UTI symp toms R39.9 and Hematuria, unspecified type R31.9 [place] [address] [address] June, Irritable bowel syndrome with diarrhea K 58.0 and Major depressive disorder, single episode, mild F32.0 [place] [address] [address] June, ADHD (attention deficit hyperactivity di sorder), combined type F90.2 ; Anxiety disorder, unspecified type F41.9 and Unspecified mood [affective] disorder F39 [facility] [address] [address] May, ADHD (attention deficit hyperactivity di sorder), combined type F90.2 ; Anxiety disorder, unspecified type F41.9 ; Unspecified mood [affective] disorder F39 and Other director long term care (current) 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 Z79.899 [facility] [address] [address] May, Slow transit constipation K59.01 [facility] [address] [address] May, ADHD (attention deficit hyperactivity di sorder), combined type F90.2 [facility] [address] [address] May, [facility] [address] [address] May, Abdominal pain R10.9 [facility] [address] [address] Apr, [facility] [address] [address] Apr, [facility] [address] [address] Apr, ADHD (attention deficit hyperactivity di sorder), combined type F90.2 [facility] [address] [address] Apr, Abdominal pain R10.9 [facility] [address] [address] Apr, [facility] [address] [address] Mar, [facility] [address] [address] Mar, ADHD (attention deficit hyperactivity di sorder), combined type F90.2 ; Anxiety disorder, unspecified type F41.9 and Unspecified mood [affective] disorder F39 [place] [address] [address] Mar, Viral gastroenteritis A08.4 and Slow tra nsit constipation K59.01 [facility] WALK IN [facility] [address] [place] [address] Mar, Viral gastroenteritis A08.4 [place] [address] [address] Mar, ADHD (attention deficit hyperactivity di sorder), combined type F90.2 [place] [address] [address] Feb, Slow transit constipation K59.01 ; Misse d period N92.6 and Nausea R11.0 [place] [address] [address] Feb, ADHD (attention deficit hyperactivity di sorder), combined type F90.2 [facility] [address] [place] [id number] [place] [address] Jan, Nausea R11.0 and Viral upper respiratory tract infection J06.9 [place] [address] [address] Jan, [place] [address] [place] [address] Jan, ADHD (attention deficit hyperactivity di sorder), combined type F90.2 ; Anxiety disorder, unspecified type F41.9 and Unspecified mood [affective] disorder F39 [place] [address] [address] Jan, Well woman exam with routine gynecologic al exam Z01.419 ; Routine screening for STI (sexually transmitted infection) Z11.3 and Vaginal jose B37.3 [place] [address] [place] [address] Dec, [facility] [address] [address] Dec, [place] [address] [address] Dec, ADHD (attention deficit hyperactivity di sorder), combined type F90.2 ; Anxiety disorder, unspecified type F41.9 and Unspecified mood [affective] disorder F39 [place] [address] [address] Dec, Unspecified mood [affective] disorder F3 9 ; Anxiety disorder, unspecified type F41.9 and ADHD (attention deficit hyperactivity disorder), combined type F90.2 [facility] [address] [facility] NAMED [facility] [id number] [address] [place] [address] Nov, Other specified bacterial ag ents as the cause of diseases classified elsewhere B96.89 and Otitis media, unspecified, bilateral H66.93 [facility] [address] FORMERLY NAMED [facility] [id number] [address] [address] Nov, Sore throat J02.9 and Acute nasopharyngitis J00 [place] [address] [address] Nov, ADHD (attention deficit hyperactivity di sorder), combined type F90.2 ; Anxiety disorder, unspecified type F41.9 and Unspecified mood [affective] disorder F39 [place] [address] [address] Oct, ADHD (attention deficit hyperactivity di sorder), combined type F90.2 [place] [address] [address] Oct, ADHD (attention deficit hyperactivity di sorder), combined type F90.2 ; Anxiety disorder, unspecified type F41.9 and Unspecified mood [affective] disorder F39 [place] [address] [address] Sep, ADHD (attention deficit hyperactivity di sorder), combined type F90.2 [facility] [address] [place] [id number] [place] [address] Sep, [facility] [address] [place] [id number] [place] [address] Aug, ADHD (attention deficit hyperactivity di sorder), combined type F90.2 ; Major depressive disorder, single episode, mild F32.0 and Anxiety disorder, unspecified type F41.9 [facility] [address] FORMERLY NAMED [facility] [id number] [address] [place] [address] Aug, Sore throat J02.9 ; Other sp ecified bacterial agents as the cause of diseases classified elsewhere B96.89 and Acute tonsillitis due to other specified organisms J03.80 [facility] [address] [place] [id number] [place] [address] Aug, ADHD (attention deficit hyperactivity di sorder), combined type F90.2 [place] [address] [place] [id number] [place] [address] Jul, ADHD (attention deficit hyperactivity di sorder), combined type F90.2 [facility] [address] [place] [id number] [place] [address] June, ADHD (attention deficit hyperactivity di sorder), combined type F90.2 ; Major depressive disorder, single episode, mild F32.0 and Anxiety disorder, unspecified type F41.9 [facility] [address] [place] [id number] [place] [address] June, [place] [address] [address] June, ADHD (attention deficit hyperactivity di sorder), combined type F90.2 [place] [address] [place] [id number] [place] [address] May, [facility] [address] [address] May, ADHD (attention deficit hyperactivity di sorder), combined type F90.2 ; Major depressive disorder, single episode, mild F32.0 and Anxiety disorder, unspecified type F41.9 [place] [address] [address] May, Anxiety disorder, unspecified type F41.9 [place] [address] [address] Apr, [place] [address] [address] Apr, Anxiety disorder, unspecified type F41.9 [place] [address] [address] Apr, Anxiety disorder, unspecified type F41.9 ; Major depressive disorder, single episode, mild F32.0 and ADHD (attention deficit hyperactivity disorder), combined type F90.2 [place] [address] [address] Apr, [place] [address] [address] Apr, ADHD (attention deficit hyperactivity di sorder), combined type F90.2 ; Anxiety state F41.1 ; Depressive disorder, not elsewhere classified F32.9 ; Major depressive disorder, single episode, mild F32.0 and Anxiety disorder, unspecified type F41.9 [place] [address] [address] Mar, ADHD (attention deficit hyperactivity di sorder), combined type F90.2 [place] [address] [address] Mar, Nausea R11.0 [place] [address] [address] Mar, Screening for STD sexually transmitted d isease Z11.3 ; Vaginal candidiasis B37.3 and Irritable bowel syndrome with diarrhea K58.0 [place] [address] [address] 04 Mar, 2017 [place] [address] [address] Feb, ADHD (attention deficit hyperactivity di sorder), combined type F90.2 [facility] [address] [address] Feb, Depressive disorder, not elsewhere class ified F32.9 ; Anxiety state F41.1 and ADHD (attention deficit hyperactivity disorder), combined type F90.2 [place] [address] [address] Feb, Depressive disorder, not elsewhere class ified F32.9 ; Anxiety state F41.1 and ADHD (attention deficit hyperactivity disorder), combined type F90.2 [place] [address] [address] Feb, ADHD (attention deficit hyperactivity di sorder), combined type F90.2 [facility] WALK IN [facility] [address] FORMERLY NAMED [facility] [id number] [address] [place] [address] Jan, Other viral agents as the ca use of diseases classified elsewhere B97.89 and Acute upper respiratory infection, unspecified J06.9 [place] [address] [address] Jan, ADHD (attention deficit hyperactivity di sorder), combined type F90.2 ; Major depressive disorder, single episode, mild F32.0 and Anxiety disorder, unspecified type F41.9 [place] [address] [address] Jan, [place] [address] [address] Jan, ADHD (attention deficit hyperactivity di sorder), combined type F90.2 ; Major depressive disorder, single episode, mild F32.0 and Anxiety disorder, unspecified type F41.9 [place] [address] [address] Dec, Irritable bowel syndrome with diarrhea K 58.0 and Lower abdominal pain R10.30 [place] [address] [address] Dec, Hospital discharge follow-up Z09 ; Mesen teric adenitis I88.0 ; IBD (inflammatory bowel disease) K52.9 and Nausea R11.0 [place] [address] [address] Nov, ADHD (attention deficit hyperactivity di sorder), combined type F90.2 ; Major depressive disorder, single episode, mild F32.0 and Anxiety disorder, unspecified type F41.9 [place] [address] [address] Nov, Anxiety state F41.1 ; ADHD (attention de ficit hyperactivity disorder), combined type F90.2 ; Major depressive disorder, single episode, mild F32.0 and Anxiety disorder, unspecified type F41.9 [place] [address] [address] Oct, Anxiety state F41.1 ; ADHD (attention de ficit hyperactivity disorder), combined type F90.2 ; Major depressive disorder, single episode, mild F32.0 and Anxiety disorder, unspecified type F41.9 [place] [address] [address] Oct, ADHD (attention deficit hyperactivity di sorder), combined type F90.2 ; Major depressive disorder, single episode, mild F32.0 and Anxiety disorder, unspecified type F41.[address] [address] Oct, Major depressive disorder, single episod e, mild F32.0 ; Anxiety state F41.1 ; ADHD (attention deficit hyperactivity disorder), combined type F90.2 and Depressive disorder, not elsewhere classified F32.9 [facility] [address] [place] [id number] [address] [place] [address] 16 Oct, 2016 [facility] [address] [place] [id number] [address] [place] [address] Oct, Cellulitis L03.90 and Planta r wart of right foot B07.0 [place] [address] [address] Aug, ADHD (attention deficit hyperactivity di sorder), combined type F90.2 ; Major depressive disorder, single episode, mild F32.0 and Anxiety disorder, unspecified type F41.9 [place] [address] [address] Aug, [place] [address] [address] Jul, ADHD (attention deficit hyperactivity di sorder), combined type F90.2 [place] [address] [address] Jul, Mesenteric adenitis I88.0 [place] [address] [address] June, [facility] [address] [place] [id number] [address] [place] [address] June, Lower abdominal pain R10.30 [place] [address] [address] June, [place] [address] [address] June, ADHD (attention deficit hyperactivity di sorder), combined type F90.2 and Major depressive disorder, single episode, mild F32.0 [place] [address] [address] May, [place] [address] [address] May, ADHD (attention deficit hyperactivity di sorder), combined type F90.2 and Major depressive disorder, single episode, mild F32.0 [facility] [address] [facility] NAM[address] [facility] [id number] [address] [place] [address] Apr, Abdominal pain R10.9 and Gas troenteritis and colitis, viral A08.4 [place] [address] [address] Apr, [facility] [address] [place] [address] Mar, Acute urticaria L50.8 [place] [address] [address] Mar, [facility] [address] [address] Feb, [facility]ARE [address] [place] [id number] [place] [address] Feb, Gastroenteritis K52.9 [place] [address] [address] Feb, Irritant contact dermatitis due to awais tics L24.3 [place] [address] [address] Jan, [place] [address] [address] Jan, [place] [address] [address] Jan, ADHD (attention deficit hyperactivity di sorder), combined type F90.2 and Major depressive disorder, single episode, mild F32.0 [facility] [address] [place] [address] Dec, Flexural eczema L20.82 [place] [address] [address] Dec, Encounter for test Z32.00 [place] [address] [address] Dec, [place] [address] [address] Dec, [place] [address] [address] Dec, [facility] [address] [facility] NAMED [facility] [id number] [place] [address] Nov, Sore throat J02.9 and Pharyn gitis, unspecified etiology J02.9 [facility] [address] [place] [id number] [place] [address] Nov, [facility] [address] [place] [id number] [place] [address] Nov, [facility] [address] [address] Nov, Generalized abdominal pain R10.84 and Sl ow transit constipation K59.01 [facility] [address] [facility] [id number] Nov, Pharyngitis, unspecified etiology J02.9 and Rhinitis, unspecified type J31.0 [place] [address] [address] Oct, Depressive disorder, not elsewhere class ified F32.9 and ADHD (attention deficit hyperactivity disorder), combined type F90.2 [place] [address] [address] Oct, [place] [address] [address] Oct, [facility] WALK IN [facility] [address] FORMER[facility] NAMED [facility] [id number] [address] [address] Oct, Strep throat J02.0 [facility] [address] [address] Oct, [place] [address] [address] 09 Oct, 2016 Well woman exam with routine gynecologic al exam Z01.419 and Screening for STD sexually transmitted disease Z11.3 [place] [address] [address] Sep, ADHD (attention deficit hyperactivity di sorder), combined type F90.2 ; Anxiety state F41.1 and Depressive disorder, not elsewhere classified F32.9 [facility] [address] [place] [id number] [place] [address] Sep, ADHD (attention deficit hyperactivity di sorder), combined type F90.2 and Depressive disorder, not elsewhere classified F32.9 [facility] [address] [place] [id number] [place] [address] Aug, [facility] [address] [address] Aug, ADHD (attention deficit hyperactivity di sorder), combined type F90.2 and Depressive disorder, not elsewhere classified F32.9 [facility] [address] [address] Aug, ADHD (attention deficit hyperactivity di sorder), combined type F90.2 ; Anxiety state F41.1 and Depressive disorder, not elsewhere classified F32.9 [facility] [address] [address] Aug, [facility] [address] [address] Aug, [facility] [address] [address] Jul, ADHD (attention deficit hyperactivity di sorder), combined type F90.2 ; Depressive disorder, not elsewhere classified F32.9 and Anxiety state F41.1 [facility] [address] [address] Jul, [facility] [address] [address] Jul, ADHD (attention deficit hyperactivity di sorder), combined type F90.2 ; Anxiety state F41.1 and Depressive disorder, not elsewhere classified F32.9 [facility] [address] [place] [id number] [place] [address] June, [facility] [address] [facility] [place] [id number] June, Constipation K59.00 [facility] [address] [facility] [place] [address] May, Constipation K59.00 [facility] [address] FORMERLY NAMED [facility] [id number] [address] [place] [address] May, Irritable bowel syndrome wit h diarrhea K58.0 [facility] [address] [place] [id number] [place] [address] 15 May, 2015 [facility] [address] [place] [id number] [place] [address] 15 May, 2015 [facility] [id number] [place] [id number] 14 May, 2014 [facility] [address] [address] May, [facility] [address] [id number] [place] [address] Jan, [facility] [address] [id number] [place] [address] Jan, [facility] [id number] [place] [address] Jan, [facility] [id number] [place] [address] Jan, [facility] [id number] [place] [address] Jan, [facility] [id number] [place] [address] Jan, [facility] [id number] [place] [address] Nov, [facility] [id number] [place] [address] Nov, [facility] [id number] [place] [address] 18 Oct, 2013 [facility] [address] [address] Oct, [facility] [address] [facility] [id number] [place] [address] Sep, [facility] [address] [facility] [id number] [place] [address] Sep, [facility] [address] [facility] [id number] [place] [address] Aug, [facility] [address] [facility] [id number] [place] [address] Aug, [facility] [address] [facility] [id number] [place] [address] Aug, [facility] [address] [id number] [place] [address] Aug, [facility] [address] [id number] [place] [address] Aug, [facility] [address] [id number] [place] [address] Aug, [facility] [address] [facility] [id number] [place] [address] Aug, [facility] [address] [id number] [place] [address] Aug, [facility] [address] [id number] [place] [address] Jul, [facility] [address] [id number] [place] [address] Jul, [facility] [address] [facility] [id number] [place] [address] Jul, [facility] [address] [id number] [place] [address] Jul, [facility] [address] [id number] [place] [address] Jul, [facility] [address] [id number] [place] [address] Jul, [facility] [address] [id number] [place] [address] Jul, [facility] [address] [id number] [place] [address] Jul, [facility] [address] [facility] [id number] [place] [address] Jul, [facility] [address] [id number] [place] [address] June, [facility] [address] [id number] [place] [address] June, [facility] [address] [id number] [place] [address] May, [facility] [address] [id number] [place] [address] May, [facility] [address] [id number] [place] [address] May, [facility] [address] [id number] [place] [address] May, [facility] [address] [id number] [place] [address] May, [facility] [address] [id number] [place] [address] May, [facility] [address] [id number] [place] [address] May, [facility] [address] [id number] [place] [address] May, [facility] [address] [id number] [place] [address] May, [facility] [address] [id number] [place] [address] May, [facility] [address] [id number] [place] [address] May, [facility] [address] [id number] [place] [address] May, [facility] [address] [id number] [place] [address] Apr, [facility] [address] [id number] [place] [address] Apr, [facility] [address] [id number] [place] [address] Apr, [facility] [address] [id number] [place] [address] Apr, [facility] [address] [id number] [place] [address] Mar, [facility] [address] [id number] [place] [address] Mar, [facility] [address] [id number] [place] [address] Mar, [facility] [address] [id number] [place] [address] Mar, [facility] [address] [id number] [place] [address] Mar, [facility] [address] [id number] [place] [address] Mar, [facility] [address] [id number] [place] [address] Mar, [facility] [address] [id number] [place] [address] Mar, [facility] [address] [id number] [place] [address] Mar, [facility] [address] [id number] [place] [address] Mar, [facility] [address] [id number] [place] [address] Mar, [facility] [address] [id number] [place] [address] Mar, [facility] [address] [id number] [place] [address] Mar, [facility] [address] [id number] [place] [address] Mar, [facility] [address] [id number] [place] [address] Mar, [facility] [address] [id number] [place] [address] Mar, [facility] [address] [id number] [place] [address] Mar, [facility] [address] [id number] [place] [address] Mar, [facility] [address] [id number] [place] [address] Mar, [facility] [address] [id number] [place] [address] Mar, [facility] [address] [id number] [place] [address] Feb, [facility] [address] [id number] [place] [address] Feb, [facility] [address] [id number] [place] [address] Feb, [facility] [address] [id number] [place] [address] Feb, [facility] [address] [id number] [place] [address] Feb, [facility] [address] [id number] [place] [address] Feb, [facility] [id number] [place] [address] Feb, [facility] [address] [id number] [place] [address] Feb, [facility] [address] [id number] [place] [address] Feb, [facility] [address] [facility] [id number] [place] [address] Feb, [facility] [address] [facility] [id number] [place] [address] Feb, [facility] [address] [id number] [place] [address] Feb, [facility] [address] [id number] [place] [address] Feb, [facility] [address] [facility] [id number] [place] [address] Feb, [facility] [address] [id number] [place] [address] Feb, [facility] [address] [id number] [place] [address] Feb, [facility] [address] [id number] [place] [address] Feb, [facility] [address] [id number] [place] [address] Feb, [facility] [address] [id number] [place] [address] Feb, [facility] [address] [id number] [place] [address] Feb, [facility] [address] [id number] [place] [address] Feb, [facility] [address] [id number] [place] [address] Feb, [facility] [address] [id number] [place] [address] Feb, [facility] [address] [id number] [place] [address] Jan, [facility] [address] [id number] [place] [address] Jan, [facility] [address] [id number] [place] [address] 19 Jan, 2012 [facility] [address] [id number] [place] [address] 18 Jan, 2013 [facility] [address] [id number] [place] [address] 18 Jan, 2013 [facility] [address] [id number] [place] [address] 18 Jan, 2013 [facility] [address] [id number] [place] [address] 18 Jan, 2013 [facility] [address] [id number] [place] [address] 17 Jan, 2013 [facility] [address] [id number] [place] [address] 17 Jan, 2013 [facility] [address] [id number] [place] [address] 2013 [facility] [address] [id number] [place] [address] Jan, [facility] [address] [id number] [place] [address] Jan, [facility] [address] [id number] [place] [address] 04 Jan, 2013 [facility] [address] [id number] [place] [address] 20 Dec, 2012 [facility] [address] [id number] [place] [address] 20 Dec, 2012 [facility] [address] [id number] [place] [address] 20 Dec, 2012 [facility] [id number] [place] [address] 20 Dec, 2012 [facility] [address] [id number] [place] [address] 15 Dec, 2012 [facility] [address] [id number] [place] [address] 15 Dec, 2012 [facility] [id number] [place] [address] Nov, [facility] [id number] [place] [address] Nov, [facility] [id number] [place] [address] Nov, [facility] [id number] [place] [address] Nov, [facility] [id number] [place] [address] Nov, [facility] [address] [address] Nov, [facility] [address] [address] Oct, [facility] [address] [address] Oct, [facility] [address] [address] Oct, [facility] [id number] [place] [address] Oct, [facility] [address] [address] Oct, [facility] [address] [address] 18 Oct, 2012 [facility] [address] [address] 13 Oct, 2012 IMMUNIZATIONS No Known Immunizations [...]
--- OUTSIDE RECORDS SUMMARY | 2019-06-25 21:20 | XMS REPORT ---
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 Name Role Phone RHIANNONJUANITAGENARO Unavailable PROBLEMS Type Condition ICD9-CM Code SVO81-MT Code Onset Dates Condition S tatus SNOMED Code Problem ADHD (attention deficit hyperactivity disorder), combi amparo type F90.2 Active 99163598 Problem Unspecified mood [affective] disorder F39 Active 70993161 Problem Intrinsic atopic dermatitis L20.84 Ac tive 77065124 Problem Slow transit constipation K59.01 Acti ve 97929059 Problem Anxiety disorder, unspecified type F41.9 Active 623587887 Problem Major depressive disorder, single episode, mild F3 2.0 Active 69366288 Problem Irritable bowel syndrome with diarrhea K58.0 Active 521942900 ALLERGIES No Information ENCOUNTERS Encounter Location Date Diagnosis [place] [address] [address] May, [facility] [address] [address] May, [place] [address] [address] Apr, [facility] [address] [address] Apr, [place] [address] [address] Apr, Diet controlled gestational diabetes jessenia litus (GDM) in third trimester O24.410 [facility] [address] [address] Apr, 30 weeks gestation of Z3A.30 ; Diet controlled gestational diabetes mellitus (GDM) in third trimester O24.410 and Encounter for immunization Z23 [place] [address] [address] 05 Apr, 2019 [place] [address] [address] 04 Apr, 2019 Gestational diabetes O24.419 [place] [address] [address] 03 Apr, 2019 [place] [address] [address] 02 Apr, 2019 Abnormal glucose tolerance in O99.810 [place] [address] [address] Mar, Abnormal glucose tolerance in O99.810 [place] [address] [address] Mar, Second trimester Z33.1 ; Nause a and vomiting during O21.9 and 27 weeks gestation of Z3A.27 [place] [address] [address] Mar, [facility] [address] [place], [place] [id number] [address] [place] [address] Mar, Non-intractable vomiting wit h nausea, unspecified vomiting type R11.2 [place] [address] [address] Feb, [place] [address] [address] Feb, Second trimester Z33.1 [place] [address] [address] Feb, Second trimester Z34.92 ; 21 w eeks gestation of Z3A.21 and Exposure to STD Z20.2 [place] [address] [address] 07 Feb, 2019 Second trimester Z33.1 [facility] [address] [place] [id number] [address] [place] [address] Feb, Non-intractable vomiting wit h nausea, unspecified vomiting type R11.2 [place] [address] [address] Jan, [place] [address] [address] Jan, [place] [address] [address] Jan, First trimester Z34.91 [place] [address] [address] 16 Jan, 2019 Second trimester Z34.92 and In trinsic atopic dermatitis L20.[address] [address] Dec, First trimester Z34.91 [place] [address] [address] Dec, Second trimester Z34.92 and Fa kim history of neural tube defect Z82.0 [place] [address] [address] Dec, [address] [address] Dec, Second trimester Z34.92 ; Fami ly history of neural tube defect Z82.0 ; History of asthma Z87.09 and Wheezing R06.2 [place] [address] [address] Dec, [facility] [address] [facility] [address] Dec, [address] [address] Nov, care, subsequent in f irst trimester Z34.81 [place] [address] [address] Nov, First trimester Z34.91 ; 10 we eks gestation of Z3A.10 and Nausea and vomiting during O21.9 [place] [address] [address] 14 Nov, 2018 care, subsequent in f irst trimester Z34.81 [facility] [address] [facility] [id number] [address] [place] [address] 05 Nov, 2018 Vomiting O21.9 [place] [address] [address] 26 Oct, 2018 care, subsequent in f irst trimester Z34.81 and 6 weeks gestation of Z3A.01 [place] [address] [address] 20 Oct, 2018 [facility] WALK [facility] [place] [address] [place] [id number] [address] [place] [address] 06 Oct, 2018 Heat rash L74.0 [place] [address] [address] Aug, UTI symptoms R39.9 [place] [address] [address] Aug, [place] [address] [address] Aug, UTI symptoms R39.9 [place] [address] [address] Aug, Hematuria, unspecified type R31.9 [facility]ALK [facility] [place] [address] [address] [place] [id number] [address] [place] [address] Jul, Sore throat J02.9 ; UTI symp toms R39.9 and Hematuria, unspecified type R31.9 [place] [address] [address] June, Irritable bowel syndrome with diarrhea K 58.0 and Major depressive disorder, single episode, mild F32.0 [place] [address] [address] June, ADHD (attention deficit hyperactivity di sorder), combined type F90.2 ; Anxiety disorder, unspecified type F41.9 and Unspecified mood [affective] disorder F39 [facility] [address] [address] May, ADHD (attention deficit hyperactivity di sorder), combined type F90.2 ; Anxiety disorder, unspecified type F41.9 ; Unspecified mood [affective] disorder F39 and Other long term care administrator (current) 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 Z79.899 [facility] [address] [address] May, Slow transit constipation K59.01 [facility] [address] [address] May, ADHD (attention deficit hyperactivity di sorder), combined type F90.2 [facility] [address] [address] May, [facility] [address] [address] May, Abdominal pain R10.9 [facility] [address] [address] Apr, [facility] [address] [address] Apr, [facility] [address] [address] Apr, ADHD (attention deficit hyperactivity di sorder), combined type F90.2 [facility] [address] [address] Apr, Abdominal pain R10.9 [facility] [address] [address] Apr, [facility] [address] [address] Mar, [facility] [address] [address] Mar, ADHD (attention deficit hyperactivity di sorder), combined type F90.2 ; Anxiety disorder, unspecified type F41.9 and Unspecified mood [affective] disorder F39 [place] [address] [address] Mar, Viral gastroenteritis A08.4 and Slow tra nsit constipation K59.01 [facility] WALK IN [facility] [address] [place] [address] Mar, Viral gastroenteritis A08.4 [place] [address] [address] Mar, ADHD (attention deficit hyperactivity di sorder), combined type F90.2 [place] [address] [address] Feb, Slow transit constipation K59.01 ; Misse d period N92.6 and Nausea R11.0 [place] [address] [address] Feb, ADHD (attention deficit hyperactivity di sorder), combined type F90.2 [facility] [address] [place] [id number] [place] [address] Jan, Nausea R11.0 and Viral upper respiratory tract infection J06.9 [place] [address] [address] Jan, [place] [address] [place] [id number] Jan, ADHD (attention deficit hyperactivity di sorder), combined type F90.2 ; Anxiety disorder, unspecified type F41.9 and Unspecified mood [affective] disorder F39 [place] [address] [address] Jan, Well woman exam with routine gynecologic al exam Z01.419 ; Routine screening for STI (sexually transmitted infection) Z11.3 and Vaginal jose B37.3 [place] [address] [place] [id number] Dec, [facility] [address] [address] Dec, [place] [address] [address] Dec, ADHD (attention deficit hyperactivity di sorder), combined type F90.2 ; Anxiety disorder, unspecified type F41.9 and Unspecified mood [affective] disorder F39 [place] [address] [address] Dec, Unspecified mood [affective] disorder F3 9 ; Anxiety disorder, unspecified type F41.9 and ADHD (attention deficit hyperactivity disorder), combined type F90.2 [facility] [address] [facility] [id number] [address] [place] [address] Nov, Other specified bacterial ag ents as the cause of diseases classified elsewhere B96.89 and Otitis media, unspecified, bilateral H66.93 [facility] [address] [facility] [id number] [place] [address] Nov, Sore throat J02.9 and Acute nasopharyngitis J00 [place] [address] [address] Nov, ADHD (attention deficit hyperactivity di sorder), combined type F90.2 ; Anxiety disorder, unspecified type F41.9 and Unspecified mood [affective] disorder F39 [place] [address] [address] Oct, ADHD (attention deficit hyperactivity di sorder), combined type F90.2 [place] [address] [address] Oct, ADHD (attention deficit hyperactivity di sorder), combined type F90.2 ; Anxiety disorder, unspecified type F41.9 and Unspecified mood [affective] disorder F39 [place] [address] [address] Sep, ADHD (attention deficit hyperactivity di sorder), combined type F90.2 [facility] [address] [place] [id number] [place] [address] Sep, [facility] [address] [place] [id number] [place] [address] Aug, ADHD (attention deficit hyperactivity di sorder), combined type F90.2 ; Major depressive disorder, single episode, mild F32.0 and Anxiety disorder, unspecified type F41.9 [facility] [address] [facility] [id number] [address] [place] [address] Aug, Sore throat J02.9 ; Other sp ecified bacterial agents as the cause of diseases classified elsewhere B96.89 and Acute tonsillitis due to other specified organisms J03.80 [facility] [address] [place] [id number] [place] [address] Aug, ADHD (attention deficit hyperactivity di sorder), combined type F90.2 [place] [address] [place] [id number] [place] [address] Jul, ADHD (attention deficit hyperactivity di sorder), combined type F90.2 [facility] [address] [place] [id number] [place] [address] June, ADHD (attention deficit hyperactivity di sorder), combined type F90.2 ; Major depressive disorder, single episode, mild F32.0 and Anxiety disorder, unspecified type F41.9 [facility] [address] [place] [id number] [place] [address] June, [place] [address] [address] June, ADHD (attention deficit hyperactivity di sorder), combined type F90.2 [place] [address] [place] [id number] [place] [address] May, [facility] [address] [address] May, ADHD (attention deficit hyperactivity di sorder), combined type F90.2 ; Major depressive disorder, single episode, mild F32.0 and Anxiety disorder, unspecified type F41.9 [place] [address] [address] May, Anxiety disorder, unspecified type F41.9 [place] [address] [address] Apr, [place] [address] [address] Apr, Anxiety disorder, unspecified type F41.9 [place] [address] [address] Apr, Anxiety disorder, unspecified type F41.9 ; Major depressive disorder, single episode, mild F32.0 and ADHD (attention deficit hyperactivity disorder), combined type F90.2 [place] [address] [address] Apr, [place] [address] [address] Apr, ADHD (attention deficit hyperactivity di sorder), combined type F90.2 ; Anxiety state F41.1 ; Depressive disorder, not elsewhere classified F32.9 ; Major depressive disorder, single episode, mild F32.0 and Anxiety disorder, unspecified type F41.9 [place] [address] [address] Mar, ADHD (attention deficit hyperactivity di sorder), combined type F90.2 [place] [address] [address] Mar, Nausea R11.0 [place] [address] [address] Mar, Screening for STD sexually transmitted d isease Z11.3 ; Vaginal candidiasis B37.3 and Irritable bowel syndrome with diarrhea K58.0 [place] [address] [address] 04 Mar, 2017 [place] [address] [address] Feb, ADHD (attention deficit hyperactivity di sorder), combined type F90.2 [facility] [address] [address] Feb, Depressive disorder, not elsewhere class ified F32.9 ; Anxiety state F41.1 and ADHD (attention deficit hyperactivity disorder), combined type F90.2 [place] [address] [address] Feb, Depressive disorder, not elsewhere class ified F32.9 ; Anxiety state F41.1 and ADHD (attention deficit hyperactivity disorder), combined type F90.2 [place] [address] [address] Feb, ADHD (attention deficit hyperactivity di sorder), combined type F90.2 [facility] WALK IN [facility] [address] [facility] [id number] [address] [place] [address] Jan, Other viral agents as the ca use of diseases classified elsewhere B97.89 and Acute upper respiratory infection, unspecified J06.9 [place] [address] [address] Jan, ADHD (attention deficit hyperactivity di sorder), combined type F90.2 ; Major depressive disorder, single episode, mild F32.0 and Anxiety disorder, unspecified type F41.9 [place] [address] [address] Jan, [place] [address] [address] Jan, ADHD (attention deficit hyperactivity di sorder), combined type F90.2 ; Major depressive disorder, single episode, mild F32.0 and Anxiety disorder, unspecified type F41.9 [place] [address] [address] Dec, Irritable bowel syndrome with diarrhea K 58.0 and Lower abdominal pain R10.30 [place] [address] [address] Dec, Hospital discharge follow-up Z09 ; Mesen teric adenitis I88.0 ; IBD (inflammatory bowel disease) K52.9 and Nausea R11.0 [place] [address] [address] Nov, ADHD (attention deficit hyperactivity di sorder), combined type F90.2 ; Major depressive disorder, single episode, mild F32.0 and Anxiety disorder, unspecified type F41.9 [place] [address] [address] Nov, Anxiety state F41.1 ; ADHD (attention de ficit hyperactivity disorder), combined type F90.2 ; Major depressive disorder, single episode, mild F32.0 and Anxiety disorder, unspecified type F41.9 [place] [address] [address] Oct, Anxiety state F41.1 ; ADHD (attention de ficit hyperactivity disorder), combined type F90.2 ; Major depressive disorder, single episode, mild F32.0 and Anxiety disorder, unspecified type F41.9 [place] [address] [address] Oct, ADHD (attention deficit hyperactivity di sorder), combined type F90.2 ; Major depressive disorder, single episode, mild F32.0 and Anxiety disorder, unspecified type F41.[address] [address] Oct, Major depressive disorder, single episod e, mild F32.0 ; Anxiety state F41.1 ; ADHD (attention deficit hyperactivity disorder), combined type F90.2 and Depressive disorder, not elsewhere classified F32.9 [facility] [address] [place] [id number] [address] [place] [address] 16 Oct, 2016 [facility] [address] [place] [id number] [address] [place] [address] Oct, Cellulitis L03.90 and Planta r wart of right foot B07.0 [place] [id number] [address] Aug, ADHD (attention deficit hyperactivity di sorder), combined type F90.2 ; Major depressive disorder, single episode, mild F32.0 and Anxiety disorder, unspecified type F41.9 [place] [address] [address] Aug, [place] [address] [address] Jul, ADHD (attention deficit hyperactivity di sorder), combined type F90.2 [place] [address] [address] Jul, Mesenteric adenitis I88.0 [place] [address] [address] June, [facility] [address] [place] [id number] [place] [address] June, Lower abdominal pain R10.30 [place] [address] [address] June, [place] [address] [address] June, ADHD (attention deficit hyperactivity di sorder), combined type F90.2 and Major depressive disorder, single episode, mild F32.0 [place] [address] [address] May, [place] [address] [address] May, ADHD (attention deficit hyperactivity di sorder), combined type F90.2 and Major depressive disorder, single episode, mild F32.0 [facility] [address] [facility] [id number] [address] [place] [address] Apr, Abdominal pain R10.9 and Gas troenteritis and colitis, viral A08.4 [place] [address] [address] Apr, [facility] [address] [place] [address] Mar, Acute urticaria L50.8 [place] [address] [address] Mar, [facility] [address] [address] Feb, [facility] [address] [place] [id number] [place] [address] Feb, Gastroenteritis K52.9 [place] [address] [address] Feb, Irritant contact dermatitis due to awais tics L24.3 [place] [address] [address] Jan, [place] [address] [address] Jan, [place] [address] [address] Jan, ADHD (attention deficit hyperactivity di sorder), combined type F90.2 and Major depressive disorder, single episode, mild F32.0 [facility] [address] [place] [address] Dec, Flexural eczema L20.82 [place] [address] [address] Dec, Encounter for test Z32.00 [place] [address] [address] Dec, [place] [address] [address] Dec, [place] [address] [address] Dec, [facility] [address] [facility] [id number] [place] [address] Nov, Sore throat J02.9 and Pharyn gitis, unspecified etiology J02.9 [facility] [address] [place] [id number] [place] [address] Nov, [facility] [address] [place] [id number] [place] [address] Nov, [facility] [address] [address] Nov, Generalized abdominal pain R10.84 and Sl ow transit constipation K59.01 [facility] [address] [facility] [id number] Nov, Pharyngitis, unspecified etiology J02.9 and Rhinitis, unspecified type J31.0 [place] [address] [address] Oct, Depressive disorder, not elsewhere class ified F32.9 and ADHD (attention deficit hyperactivity disorder), combined type F90.2 [place] [address] [address] Oct, [place] [address] [address] Oct, [facility] WALK IN [facility] [address] [facility] [id number] [place] [address] Oct, Strep throat J02.0 [facility] [address] [address] Oct, [place] [address] [address] 09 Oct, 2016 Well woman exam with routine gynecologic al exam Z01.419 and Screening for STD sexually transmitted disease Z11.3 [place] [address] [address] Sep, ADHD (attention deficit hyperactivity di sorder), combined type F90.2 ; Anxiety state F41.1 and Depressive disorder, not elsewhere classified F32.9 [facility] [address] [place] [id number] [place] [address] Sep, ADHD (attention deficit hyperactivity di sorder), combined type F90.2 and Depressive disorder, not elsewhere classified F32.9 [facility] [address] [place] [id number] [place] [address] Aug, [facility] [address] [address] Aug, ADHD (attention deficit hyperactivity di sorder), combined type F90.2 and Depressive disorder, not elsewhere classified F32.9 [facility] [address] [address] Aug, ADHD (attention deficit hyperactivity di sorder), combined type F90.2 ; Anxiety state F41.1 and Depressive disorder, not elsewhere classified F32.9 [facility] [address] [address] Aug, [facility] [address] [address] Aug, [facility] [address] [address] Jul, ADHD (attention deficit hyperactivity di sorder), combined type F90.2 ; Depressive disorder, not elsewhere classified F32.9 and Anxiety state F41.1 [facility] [address] [address] Jul, [facility] [address] [address] Jul, ADHD (attention deficit hyperactivity di sorder), combined type F90.2 ; Anxiety state F41.1 and Depressive disorder, not elsewhere classified F32.9 [facility] [address] [place] [id number] [place] [address] June, [facility] [address] [facility] [place] [id number] June, Constipation K59.00 [facility] [address] [facility] [place] [address] May, Constipation K59.00 [facility] [address] [facility] [id number] [address] [place] [address] May, Irritable bowel syndrome wit h diarrhea K58.0 [facility] [address] [place] [id number] [place] [address] 15 May, 2015 [facility] [address] [place] [id number] [place] [address] 15 May, 2015 [facility] [address] [place] [id number] [place] [address] 14 May, 2014 [facility] [address] [address] May, [facility] [address] [place] [id number] [place] [address] Jan, [facility] [address] [place] [id number] [place] [address] Jan, [facility] [address] [place] [id number] [place] [address] Jan, [facility] [address] [place] [id number] [place] [address] Jan, [facility] [address] [place] [id number] [place] [address] Jan, [facility] [address] [place] [id number] [place] [address] Jan, [facility] [address] [place] [id number] [place] [address] Nov, [facility] [address] [place] [id number] [place] [address] Nov, [facility] [address] [place] [id number] [place] [address] 18 Oct, 2013 [facility] [address] [address] Oct, [facility] [facility] [address] [facility] [id number] [facility] [place] [address] Sep, [facility] [address] [facility] [id number] [facility] [place] [address] Sep, [facility] [address] [facility] [id number] [facility] [place] [address] Aug, [facility] [address] [facility] [id number] [facility] [place] [address] Aug, [facility] [address] [facility] [id number] [facility] [place] [address] Aug, [facility] [address] [id number] [place] [address] Aug, [facility] [address] [id number] [place] [address] Aug, [facility] [address] [id number] [place] [address] Aug, [facility] [address] [facility] [id number] [place] [address] Aug, [facility] [address] [id number] [place] [address] Aug, [facility] [address] [id number] [place] [address] Jul, [facility] [address] [id number] [place] [address] Jul, [facility] [address] [facility] [id number] [place] [address] Jul, [facility] [address] [id number] [place] [address] Jul, [facility] [address] [id number] [place] [address] Jul, [facility] [address] [id number] [place] [address] Jul, [facility] [address] [id number] [place] [address] Jul, [facility] [address] [id number] [facility] [place] [address] Jul, [facility] [address] [facility] [id number] [place] [address] Jul, [facility] [address] [id number] [place] [address] June, [facility] [address] [id number] [place] [address] June, [facility] [address] [id number] [place] [address] May, [facility] [address] [id number] [place] [address] May, [facility] [address] [id number] [place] [address] May, [facility] [address] [id number] [place] [address] May, [facility] [address] [id number] [place] [address] May, [facility] [address] [id number] [place] [address] May, [facility] [address] [id number] [place] [address] May, [facility] [address] [id number] [place] [address] May, [facility] [address] [id number] [place] [address] May, [facility] [address] [id number] [place] [address] May, [facility] [address] [id number] [place] [address] May, [facility] [address] [id number] [place] [address] May, [facility] [address] [id number] [place] [address] Apr, [facility] [address] [id number] [place] [address] Apr, [facility] [address] [id number] [place] [address] Apr, [facility] [address] [id number] [place] [address] Apr, [facility] [address] [id number] [place] [address] Mar, [facility] [address] [id number] [place] [address] Mar, [facility] [address] [id number] [place] [address] Mar, [facility] [address] [id number] [place] [address] Mar, [facility] [address] [id number] [place] [address] Mar, [facility] [address] [id number] [place] [address] Mar, [facility] [address] [id number] [place] [address] Mar, [facility] [address] [id number] [place] [address] Mar, [facility] [address] [id number] [place] [address] Mar, [facility] [address] [id number] [place] [address] Mar, [facility] [address] [id number] [place] [address] Mar, [facility] [address] [id number] [place] [address] Mar, [facility] [address] [id number] [place] [address] Mar, [facility] [address] [id number] [place] [address] Mar, [facility] [address] [id number] [place] [address] Mar, [facility] [address] [id number] [place] [address] Mar, [facility] [address] [id number] [place] [address] Mar, [facility] [address] [id number] [place] [address] Mar, [facility] [address] [id number] [place] [address] Mar, [facility] [address] [id number] [place] [address] Mar, [facility] [address] [id number] [place] [address] Feb, [facility] [address] [id number] [place] [address] Feb, [facility] [address] [id number] [place] [address] Feb, [facility] [address] [id number] [place] [address] Feb, [facility] [address] [id number] [place] [address] Feb, [facility] [address] [id number] [place] [address] Feb, [facility] [id number] [place] [address] Feb, [facility] [address] [id number] [place] [address] Feb, [facility] [address] [id number] [place] [address] Feb, [facility] [address] [facility] [id number] [place] [address] Feb, [facility] [address] [facility] [id number] [place] [address] Feb, [facility] [address] [id number] [place] [address] Feb, [facility] [address] [id number] [place] [address] Feb, [facility] [address] [facility] [id number] [place] [address] Feb, [facility] [address] [id number] [place] [address] Feb, [facility] [address] [id number] [place] [address] Feb, [facility] [address] [id number] [place] [address] Feb, [facility] [address] [id number] [place] [address] Feb, [facility] [address] [id number] [place] [address] Feb, [facility] [address] [id number] [place] [address] Feb, [facility] [address] [id number] [place] [address] Feb, [facility] [address] [id number] [place] [address] Feb, [facility] [address] [id number] [place] [address] Feb, [facility] [address] [id number] [place] [address] Jan, [facility] [address] [id number] [place] [address] Jan, [facility] [address] [id number] [place] [address] 19 Jan, 2012 [facility] [address] [id number] [place] [address] 18 Jan, 2013 [facility] [address] [id number] [place] [address] 18 Jan, 2013 [facility] [address] [id number] [place] [address] 18 Jan, 2013 [facility] [address] [id number] [place] [address] 18 Jan, 2013 [facility] [address] [id number] [place] [address] 17 Jan, 2013 [facility] [address] [id number] [place] [address] 17 Jan, 2013 [facility] [address] [id number] [place] [address] 2013 [facility] [address] [id number] [place] [address] Jan, [facility] [address] [id number] [place] [address] Jan, [facility] [address] [id number] [place] [address] 04 Jan, 2013 [facility] [address] [id number] [place] [address] 20 Dec, 2012 [facility] [address] [id number] [place] [address] 20 Dec, 2012 [facility] [address] [id number] [place] [address] 20 Dec, 2012 [facility] [id number] [place] [address] 20 Dec, 2012 [facility] [address] [id number] [place] [address] 15 Dec, 2012 [facility] [address] [id number] [place] [address] 15 Dec, 2012 [facility] [id number] [place] [address] Nov, [facility] [id number] [place] [address] Nov, [facility] [id number] [place] [address] Nov, [facility] [id number] [place] [address] Nov, [facility] [id number] [place] [address] Nov, [facility] [address] [address] Nov, [facility] [address] [address] Oct, [facility] [address] [address] 27 Oct, 2012 [facility] [id number] [place] [address] 26 Oct, 2012 [facility] [id number] [place] [address] 25 Oct, 2012 [facility] [id number] [place] [address] 25 Oct, 2012 [facility] [id number] [place] [address] 18 Oct, 2012 [facility] [id number] [place] [address] 13 Oct, 2012 IMMUNIZATIONS No Known Immunizations SOCIAL HISTORY Never Assessed REASON FOR VISIT PLAN OF CARE VITAL SIGNS Weight 143.3 lbs 2013-04-10 Temperature 96.8 degrees Fahrenheit 2013-04-10 Heart Rate 92 bpm 2013-04-10 Respiratory Rate 20 2013-04-10 Blood pressure systolic 118 mmHg 2013-04-10 Blood pressure diastolic 62 mmHg 2013-04-10 MEDICATIONS Unknown Medications RESULTS No Results PROCEDURES Procedure Date Ordered Result Body Site GLUCOSE BLOOD TEST Apr 10, 2013 URINE-NO MICRO Apr 10, 2013 INSTRUCTIONS MEDICATIONS ADMINISTERED No Known Medications [...]
--- OUTSIDE RECORDS SUMMARY | 2019-06-25 21:20 | XMS REPORT ---
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 Name Role Phone Migration, Doctor Unavailable Unavailable PROBLEMS Type Condition ICD9-CM Code PDQ08-VS Code Onset Dates Condition S tatus SNOMED Code Problem ADHD (attention deficit hyperactivity disorder), combi amparo type F90.2 Active 27426149 Problem Unspecified mood [affective] disorder F39 Active 51138166 Problem Intrinsic atopic dermatitis L20.84 Ac tive 37292399 Problem Slow transit constipation K59.01 Acti ve 96217364 Problem Anxiety disorder, unspecified type F41.9 Active 999591149 Problem Major depressive disorder, single episode, mild F3 2.0 Active 25942529 Problem Irritable bowel syndrome with diarrhea K58.0 Active 030061816 ALLERGIES No Information ENCOUNTERS Encounter Location Date Diagnosis [place] [address] [address] May, [place] [address] [address] May, [place] [address] [address] Apr, [place] [address] [address] Apr, [place] [address] [address] Apr, Diet controlled gestational diabetes jessenia litus (GDM) in third trimester O24.410 [place] [address] [address] 11 Apr, 2019 30 weeks gestation of Z3A.30 ; Diet controlled gestational diabetes mellitus (GDM) in third trimester O24.410 and Encounter for immunization Z23 [place] [address] [address] 05 Apr, 2019 [place] [address] [place] [id number] [place] [address] 04 Apr, 2019 Gestational diabetes O24.419 [place] [address] [address] Apr, [place] [address] [address] Apr, Abnormal glucose tolerance in O99.810 [place] [address] [address] Mar, Abnormal glucose tolerance in O99.810 [place] [address] [address] Mar, Second trimester Z33.1 ; Nause a and vomiting during O21.9 and 27 weeks gestation of Z3A.27 [place] [address] [address] Mar, [facility] [address] [place] [id number] [place] [address] Mar, Non-intractable vomiting wit h nausea, unspecified vomiting type R11.2 [place] [address] [address] Feb, [place] [address] [address] Feb, Second trimester Z33.1 [place] [address] [address] 13 Feb, 2019 Second trimester Z34.92 ; 21 w eeks gestation of Z3A.21 and Exposure to STD Z20.2 [place] [address] [address] 07 Feb, 2019 Second trimester Z33.1 [facility] [address] [facility] [id number] [address] [place] [address] 05 Feb, 2019 Non-intractable vomiting wit h nausea, unspecified vomiting type R11.2 [place] [address] [place] [id number] [place] [address] Jan, [facility] [place] [address] [address] Jan, [facility] [place] [address] [address] Jan, First trimester Z34.91 [place] [address] [address] 16 Jan, 2019 Second trimester Z34.92 and In [facility] atopic dermatitis L20.84 [place] [address] [address] Dec, First trimester Z34.91 [place] [address] [address] Dec, Second trimester Z34.92 and Fa kim history of neural tube defect Z82.0 [place] [address] [address] 18 Dec, 2018 [facility] [place] [address] [address] Dec, Second trimester Z34.92 ; Fami ly history of neural tube defect Z82.0 ; History of asthma Z87.09 and Wheezing R06.2 [place] [address] [place] [id number] [place] [address] Dec, [facility] [address] [id number] [address] Dec, [facility] [place] [address] [place] [id number] [place] [address] Nov, care, subsequent in f irst trimester Z34.81 [place] [id number] [place] [address] Nov, First trimester Z34.91 ; 10 we eks gestation of Z3A.10 and Nausea and vomiting during O21.9 [place] [address] [place] [address] 14 Nov, 2018 care, subsequent in f irst trimester Z34.81 [facility] [address] [place] [id number] [place] [address] 05 Nov, 2018 Vomiting O21.9 [place] [address] [address] 26 Oct, 2018 care, subsequent in f irst trimester Z34.81 and 6 weeks gestation of Z3A.01 [place] [address] [address] 20 Oct, 2018 [facility] [place] [address] [place] [address] 06 Oct, 2018 Heat rash L74.0 [place] [address] [address] Aug, UTI symptoms R39.9 [place] [address] [address] Aug, [place] [address] [address] Aug, UTI symptoms R39.9 [place] [address] [address] 10 Aug, 2018 Hematuria, unspecified type R31.9 [facility] [place] [address] [place] [id number] [place] [address] Jul, Sore throat J02.9 ; UTI symp toms R39.9 and Hematuria, unspecified type R31.9 [place] [address] [address] June, Irritable bowel syndrome with diarrhea K 58.0 and Major depressive disorder, single episode, mild F32.0 [place] [address] [address] June, ADHD (attention deficit hyperactivity di sorder), combined type F90.2 ; Anxiety disorder, unspecified type F41.9 and Unspecified mood [affective] disorder F39 [facility] [place] [address] [address] May, ADHD (attention deficit hyperactivity di sorder), combined type F90.2 ; Anxiety disorder, unspecified type F41.9 ; Unspecified mood [affective] disorder F39 and 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 [facility] [place] [address] [address] May, Slow transit constipation K59.01 [facility] [place] [address] [address] May, ADHD (attention deficit hyperactivity di sorder), combined type F90.2 [facility] [place] [address] [address] May, [facility] [place] [address] [address] May, Abdominal pain R10.9 [facility] [place] [address] [address] Apr, [facility] [place] [address] [address] Apr, [facility] [place] [address] [address] Apr, ADHD (attention deficit hyperactivity di sorder), combined type F90.2 [facility] [place] [address] [address] Apr, Abdominal pain R10.9 [facility] [place] [address] [address] Apr, [facility] [place] [address] [address] Mar, [facility] [place] [address] [address] Mar, ADHD (attention deficit hyperactivity di sorder), combined type F90.2 ; Anxiety disorder, unspecified type F41.9 and Unspecified mood [affective] disorder F39 [facility] [place] [address] [address] Mar, Viral gastroenteritis A08.4 and Slow tra nsit constipation K59.01 [facility] [address] [facility] [id number] [place] [address] Mar, Viral gastroenteritis A08.4 [place] [address] [address] Mar, ADHD (attention deficit hyperactivity di sorder), combined type F90.2 [place] [address] [address] Feb, Slow transit constipation K59.01 ; [facility] N92.6 and Nausea R11.0 [place] [address] [address] Feb, ADHD (attention deficit hyperactivity di sorder), combined type F90.2 [facility] [address] [place] [id number] [place] [address] Jan, Nausea R11.0 and Viral upper respiratory tract infection J06.9 [place] [address] [address] Jan, [place] [address] [address] Jan, ADHD (attention deficit hyperactivity di sorder), combined type F90.2 ; Anxiety disorder, unspecified type F41.9 and Unspecified mood [affective] disorder F39 [place] [address] [address] Jan, Well woman exam with routine gynecologic al exam Z01.419 ; Routine screening for STI (sexually transmitted infection) Z11.3 and Vaginal jose B37.3 [place] [address] [address] Dec, [place] [address] [place] [address] Dec, [facility] [place] [address] [address] Dec, ADHD (attention deficit hyperactivity di sorder), combined type F90.2 ; Anxiety disorder, unspecified type F41.9 and Unspecified mood [affective] disorder F39 [facility] [place] [address] [address] Dec, Unspecified mood [affective] disorder F3 9 ; Anxiety disorder, unspecified type F41.9 and ADHD (attention deficit hyperactivity disorder), combined type F90.2 [facility] [address] [place] [id number] [place] [address] Nov, Other specified bacterial ag ents as the cause of diseases classified elsewhere B96.89 and Otitis media, unspecified, bilateral H66.93 [facility] [address] [place] [id number] [place] [address] Nov, Sore throat J02.9 and Acute nasopharyngitis J00 [facility] [place] [address] [place] [id number] [place] [address] Nov, ADHD (attention deficit hyperactivity di sorder), combined type F90.2 ; Anxiety disorder, unspecified type F41.9 and Unspecified mood [affective] disorder F39 [facility] [place] [address] [address] Oct, ADHD (attention deficit hyperactivity di sorder), combined type F90.2 [facility] [place] [address] [address] Oct, ADHD (attention deficit hyperactivity di sorder), combined type F90.2 ; Anxiety disorder, unspecified type F41.9 and Unspecified mood [affective] disorder F39 [facility] [place] [address] [address] Sep, ADHD (attention deficit hyperactivity di sorder), combined type F90.2 [place] [address] [address] Sep, [facility] [place] [address] [place] [id number] [place] [address] Aug, ADHD (attention deficit hyperactivity di sorder), combined type F90.2 ; Major depressive disorder, single episode, mild F32.0 and Anxiety disorder, unspecified type F41.9 [facility] [address] [facility] [id number] [address] [place] [address] Aug, Sore throat J02.9 ; Other sp ecified bacterial agents as the cause of diseases classified elsewhere B96.89 and Acute tonsillitis due to other specified organisms J03.80 [place] [address] [place] [id number] [place] [address] Aug, ADHD (attention deficit hyperactivity di sorder), combined type F90.2 [place] [address] [address] Jul, ADHD (attention deficit hyperactivity di sorder), combined type F90.2 [facility] [place] [address] [place] [id number] [place] [address] June, ADHD (attention deficit hyperactivity di sorder), combined type F90.2 ; Major depressive disorder, single episode, mild F32.0 and Anxiety disorder, unspecified type F41.9 [place] [address] [place] [id number] [place] [address] June, [facility] [place] [address] [address] June, ADHD (attention deficit hyperactivity di sorder), combined type F90.2 [facility] [place] [address] [place] [id number] [place] [address] May, [place] [address] [address] May, ADHD (attention deficit hyperactivity di sorder), combined type F90.2 ; Major depressive disorder, single episode, mild F32.0 and Anxiety disorder, unspecified type F41.9 [place] [address] [address] May, Anxiety disorder, unspecified type F41.9 [place] [address] [address] Apr, [place] [address] [address] Apr, Anxiety disorder, unspecified type F41.9 [place] [address] [address] Apr, Anxiety disorder, unspecified type F41.9 ; Major depressive disorder, single episode, mild F32.0 and ADHD (attention deficit hyperactivity disorder), combined type F90.2 [place] [address] [address] Apr, [place] [address] [address] Apr, ADHD (attention deficit hyperactivity di sorder), combined type F90.2 ; Anxiety state F41.1 ; Depressive disorder, not elsewhere classified F32.9 ; Major depressive disorder, single episode, mild F32.0 and Anxiety disorder, unspecified type F41.9 [place] [address] [address] Mar, ADHD (attention deficit hyperactivity di sorder), combined type F90.2 [place] [address] [address] Mar, Nausea R11.0 [place] [address] [address] 13 Mar, 2017 Screening for STD sexually transmitted d isease Z11.3 ; Vaginal candidiasis B37.3 and Irritable bowel syndrome with diarrhea K58.0 [place] [address] [address] 04 Mar, 2017 [place] [address] [address] 31 Home, 2018 ADHD (attention deficit hyperactivity di sorder), combined type F90.2 [facility] [place] [address] [address] Feb, Depressive disorder, not elsewhere class ified F32.9 ; Anxiety state F41.1 and ADHD (attention deficit hyperactivity disorder), combined type F90.2 [facility] [place] [address] [address] Feb, Depressive disorder, not elsewhere class ified F32.9 ; Anxiety state F41.1 and ADHD (attention deficit hyperactivity disorder), combined type F90.2 [facility] [place] [address] [address] Feb, ADHD (attention deficit hyperactivity di sorder), combined type F90.2 [facility] [address] [facility] [id number] [address] [place] [address] Jan, Other viral agents as the ca use of diseases classified elsewhere B97.89 and Acute upper respiratory infection, unspecified J06.9 [place] [address] [address] Jan, ADHD (attention deficit hyperactivity di sorder), combined type F90.2 ; Major depressive disorder, single episode, mild F32.0 and Anxiety disorder, unspecified type F41.9 [place] [address] [address] Jan, [facility] [place] [address] [address] Jan, ADHD (attention deficit hyperactivity di sorder), combined type F90.2 ; Major depressive disorder, single episode, mild F32.0 and Anxiety disorder, unspecified type F41.9 [place] [address] [address] Dec, Irritable bowel syndrome with diarrhea K 58.0 and Lower abdominal pain R10.30 [place] [address] [address] 09 Dec, 2016 Hospital discharge follow-up Z09 ; Mesen teric adenitis I88.0 ; IBD (inflammatory bowel disease) K52.9 and Nausea R11.0 [place] [address] [address] Nov, ADHD (attention deficit hyperactivity di sorder), combined type F90.2 ; Major depressive disorder, single episode, mild F32.0 and Anxiety disorder, unspecified type F41.9 [place] [address] [address] Nov, Anxiety state F41.1 ; ADHD (attention de ficit hyperactivity disorder), combined type F90.2 ; Major depressive disorder, single episode, mild F32.0 and Anxiety disorder, unspecified type F41.9 [place] [address] [address] Oct, Anxiety state F41.1 ; ADHD (attention de ficit hyperactivity disorder), combined type F90.2 ; Major depressive disorder, single episode, mild F32.0 and Anxiety disorder, unspecified type F41.9 [place] [address] [address] Oct, ADHD (attention deficit hyperactivity di sorder), combined type F90.2 ; Major depressive disorder, single episode, mild F32.0 and Anxiety disorder, unspecified type F41.9 [place] [address] [address] Oct, Major depressive disorder, single episod e, mild F32.0 ; Anxiety state F41.1 ; ADHD (attention deficit hyperactivity disorder), combined type F90.2 and Depressive disorder, not elsewhere classified F32.9 [facility] [address] [place] [id number] [address] [place] [address] 16 Oct, 2016 [facility] [address] [place] [id number] [address] [place] [address] 12 Oct, 2016 Cellulitis L03.90 and Planta r wart of right foot B07.[address] [address] Aug, ADHD (attention deficit hyperactivity di sorder), combined type F90.2 ; Major depressive disorder, single episode, mild F32.0 and Anxiety disorder, unspecified type F41.9 [facility] [place] [address] [address] Aug, [place] [address] [address] Jul, ADHD (attention deficit hyperactivity di sorder), combined type F90.2 [place] [address] [address] Jul, Mesenteric adenitis I88.0 [place] [address] [address] June, [facility] [address] [place] [id number] [place] [address] June, Lower abdominal pain R10.30 [place] [address] [address] June, [place] [address] [address] June, ADHD (attention deficit hyperactivity di sorder), combined type F90.2 and Major depressive disorder, single episode, mild F32.0 [place] [address] [address] May, [place] [address] [address] May, ADHD (attention deficit hyperactivity di sorder), combined type F90.2 and Major depressive disorder, single episode, mild F32.0 [facility] [address] [facility] [id number] [address] [place] [address] Apr, Abdominal pain R10.9 and Gas troenteritis and colitis, viral A08.4 [facility] [place] [address] [address] Apr, [facility] [address] [place] [address] Mar, Acute urticaria L50.8 [place] [address] [address] Mar, [place] [address] [address] Feb, [facility] [address] [address] Feb, Gastroenteritis K52.9 [place] [address] [address] Feb, Irritant contact dermatitis due to awais tics L24.3 [place] [address] [address] Jan, [place] [address] [address] Jan, [place] [address] [address] Jan, ADHD (attention deficit hyperactivity di sorder), combined type F90.2 and Major depressive disorder, single episode, mild F32.0 [facility] [address] [place] [id number] [place] [address] Dec, Flexural eczema L20.82 [place] [address] [address] Dec, Encounter for test Z32.00 [place] [address] [address] Dec, [place] [address] [address] Dec, [place] [address] [address] Dec, [facility] [address] [address] Nov, Sore throat J02.9 and Pharyn gitis, unspecified etiology J02.9 [facility] [address] [address] Nov, [facility] [address] [place] [id number] [place] [address] Nov, [facility] [place] [address] [place] [id number] [place] [address] Nov, Generalized abdominal pain R10.84 and Sl ow transit constipation K59.01 [facility] [address] [id number] [place] [id number] Nov, Pharyngitis, unspecified etiology J02.9 and Rhinitis, unspecified type J31.0 [facility] [place] [address] [address] Oct, Depressive disorder, not elsewhere class ified F32.9 and ADHD (attention deficit hyperactivity disorder), combined type F90.2 [facility] [place] [address] [address] Oct, [facility] [place] [address] [address] Oct, [facility] [address] [facility] [id number] [address] [place] [address] Oct, Strep throat J02.0 [facility] [address] [address] 16 Oct, 2015 [place] [address] [address] 09 Oct, 2015 Well woman exam with routine gynecologic al exam Z01.419 and Screening for STD sexually transmitted disease Z11.3 [place] [address] [address] Sep, ADHD (attention deficit hyperactivity di sorder), combined type F90.2 ; Anxiety state F41.1 and Depressive disorder, not elsewhere classified F32.9 [facility] [address] [place] [address] Sep, ADHD (attention deficit hyperactivity di sorder), combined type F90.2 and Depressive disorder, not elsewhere classified F32.9 [facility] [address] [place] [id number] [place] [address] Aug, [facility] [address] [place] [id number] [place] [address] Aug, ADHD (attention deficit hyperactivity di sorder), combined type F90.2 and Depressive disorder, not elsewhere classified F32.9 [facility] [address] [place] [id number] [place] [address] Aug, ADHD (attention deficit hyperactivity di sorder), combined type F90.2 ; Anxiety state F41.1 and Depressive disorder, not elsewhere classified F32.9 [facility] [address] [place] [id number] [place] [address] Aug, [facility] [address] [place] [id number] [place] [address] Aug, [facility] [address] [address] Jul, ADHD (attention deficit hyperactivity di sorder), combined type F90.2 ; Depressive disorder, not elsewhere classified F32.9 and Anxiety state F41.1 [facility] [place] [address] [place] [id number] [place] [address] Jul, [facility] [address] [place] [id number] [place] [address] Jul, ADHD (attention deficit hyperactivity di sorder), combined type F90.2 ; Anxiety state F41.1 and Depressive disorder, not elsewhere classified F32.9 [facility] [address] [place] [id number] [place] [address] June, [facility] [address] [id number] [place] [id number] June, Constipation K59.00 [facility] [address] [place] [id number] [place] [address] 28 May, 2016 Constipation K59.00 [facility] [address] [facility] [id number] [address] [place] [address] 20 May, 2016 Irritable bowel syndrome wit h diarrhea K58.0 [facility] [place] [id number] [place] [address] 15 May, 2015 [facility] [place] [id number] [place] [address] 15 May, 2015 [facility] [place] [id number] [place] [address] 14 May, 2014 [facility] [place] [id number] [place] [address] 13 May, 2014 [facility] [place] [id number] [place] [address] 29 Jan, 2014 [facility] [place] [id number] [place] [address] 29 Jan, 2014 [facility] [place] [id number] [place] [address] 08 Jan, 2014 [facility] [place] [id number] [place] [address] 08 Jan, 2014 [facility] [place] [id number] [place] [address] 05 Jan, 2014 [facility] [place] [id number] [place] [address] 05 Jan, 2014 [facility] [place] [id number] [place] [address] Nov, [facility] [place] [id number] [place] [address] Nov, [facility] [place] [id number] [place] [address] 18 Oct, 2013 [facility] [place] [id number] [place] [address] 18 Oct, 2013 [facility] [place] [id number] [place] [address] Sep, [facility] [place] [facility] [address] [facility] [id number] [place] [address] Sep, [facility] [place] [facility] [address] [facility] [id number] [facility] [place] [address] Aug, [facility] [place] [facility] [address] [id number] [place] [address] Aug, [facility] [place] [facility] [address] [facility] [id number] [place] [address] Aug, [facility] [place] [facility] [address] [facility] [id number] [place] [address] Aug, [facility] [place] [facility] [address] [id number] [place] [address] Aug, [facility] [place] [facility] [address] [id number] [place] [address] Aug, [facility] [place] [facility] [address] [id number] [place] [address] Aug, [facility] [place] [facility] [address] [facility] [id number] [place] [address] Aug, [facility] [place] [facility] [address] [id number] [place] [address] Jul, [facility] [place] [facility] [address] [id number] [place] [address] Jul, [facility] [place] [facility] [address] [id number] [place] [address] Jul, [facility] [place] [facility] [address] [facility] [id number] [place] [address] Jul, [facility] [place] [facility] [address] [id number] [place] [address] Jul, [facility] [place] [facility] [address] [id number] [place] [address] Jul, [facility] [place] [facility] [address] [id number] [place] [address] Jul, [facility] [place] [facility] [address] [facility] [id number] [place] [address] Jul, [facility] [place] [facility] [address] [id number] [place] [address] Jul, [facility] [place] [facility] [address] [id number] [place] [address] June, [facility] [place] [facility] [address] [id number] [place] [address] June, [facility] [place] [facility] [address] [id number] [place] [address] May, [facility] [place] [facility] [address] [id number] [place] [address] May, [facility] [place] [facility] [address] [id number] [place] [address] May, [facility] [place] [facility] [address] [id number] [place] [address] May, [facility] [place] [facility] [address] [id number] [place] [address] May, [facility] [place] [facility] [address] [id number] [place] [address] May, [facility] [place] [facility] [address] [id number] [place] [address] May, [facility] [place] [facility] [address] [id number] [place] [address] May, [facility] [place] [facility] [address] [id number] [place] [address] May, [facility] [place] [facility] [address] [id number] [place] [address] May, [facility] [place] [facility] [address] [id number] [place] [address] May, [facility] [place] [facility] [address] [id number] [place] [address] May, [facility] [place] [facility] [address] [id number] [place] [address] Apr, [facility] [place] [facility] [address] [id number] [place] [address] Apr, [facility] [place] [facility] [address] [id number] [place] [address] Apr, [facility] [place] [facility] [address] [id number] [place] [address] Apr, [facility] [place] [facility] [address] [id number] [place] [address] Mar, [facility] [place] [facility] [address] [id number] [place] [address] Mar, [facility] [place] [facility] [address] [id number] [place] [address] Mar, [facility] [place] [facility] [address] [id number] [place] [address] Mar, [facility] [place] [facility] [address] [id number] [place] [address] Mar, [facility] [place] [facility] [address] [id number] [place] [address] Mar, [facility] [place] [facility] [address] [id number] [place] [address] Mar, [facility] [place] [facility] [address] [id number] [place] [address] Mar, [facility] [place] [facility] [address] [id number] [place] [address] Mar, [facility] [place] [facility] [address] [id number] [place] [address] Mar, [facility] [place] [facility] [address] [id number] [place] [address] 14 Mar, 2013 [facility] [place] [facility] [address] [id number] [place] [address] 14 Mar, 2013 [facility] [place] [facility] [address] [id number] [place] [address] 13 Mar, 2013 [facility] [place] [facility] [address] [id number] [place] [address] Mar, [facility] [place] [facility] [address] [facility] [id number] [place] [address] Mar, [facility] [place] [facility] [address] [id number] [place] [address] Mar, [facility] [place] [facility] [address] [id number] [place] [address] Mar, [facility] [place] [facility] [address] [id number] [place] [address] Mar, [facility] [place] [facility] [address] [id number] [place] [address] Mar, [facility] [place] [facility] [address] [id number] [place] [address] Mar, [facility] [place] [facility] [address] [id number] [place] [address] Feb, [facility] [place] [facility] [address] [id number] [place] [address] Feb, [facility] [place] [facility] [address] [id number] [place] [address] Feb, [facility] [place] [facility] [address] [id number] [place] [address] Feb, [facility] [place] [facility] [address] [id number] [place] [address] Feb, [facility] [place] [facility] [address] [id number] [place] [address] Feb, [facility] [place] [facility] [address] [id number] [place] [address] Feb, [facility] [place] [facility] [address] [id number] [place] [address] Feb, [facility] [place] [facility] [address] [id number] [place] [address] Feb, [facility] [place] [facility] [address] [id number] [place] [address] Feb, [facility] [place] [facility] [address] [facility] [id number] [place] [address] Feb, [facility] [place] [facility] [address] [id number] [place] [address] Feb, [facility] [place] [facility] [address] [id number] [place] [address] Feb, [facility] [place] [facility] [address] [id number] [place] [address] Feb, [facility] [place] [facility] [address] [facility] [id number] [place] [address] Feb, [facility] [place] [facility] [address] [id number] [place] [address] Feb, [facility] [place] [facility] [address] [id number] [place] [address] Feb, [facility] [place] [facility] [address] [id number] [place] [address] Feb, [facility] [place] [facility] [address] [id number] [place] [address] Feb, [facility] [place] [facility] [address] [id number] [place] [address] Feb, [facility] [place] [facility] [address] [id number] [place] [address] Feb, [facility] [place] [facility] [address] [id number] [place] [address] Feb, [facility] [place] [facility] [address] [id number] [place] [address] Feb, [facility] [place] [facility] [address] [id number] [place] [address] Jan, [facility] [place] [facility] [address] [id number] [place] [address] Jan, [facility] [place] [facility] [address] [id number] [place] [address] Jan, [facility] [place] [facility] [address] [id number] [place] [address] 18 Jan, 2013 [facility] [place] [facility] [address] [id number] [place] [address] 18 Jan, 2013 [facility] [place] [facility] [address] [id number] [place] [address] 18 Jan, 2013 [facility] [place] [facility] [address] [id number] [place] [address] 18 Jan, 2013 [facility] [place] [facility] [address] [id number] [place] [address] Jan, [facility] [place] [facility] [address] [id number] [place] [address] Jan, [facility] [place] [facility] [address] [id number] [place] [address] Jan, [facility] [place] [facility] [address] [id number] [place] [address] Jan, [facility] [place] [facility] [id number] [place] [address] Jan, [facility] [place] [facility] [address] [id number] [place] [address] Jan, [facility] [place] [facility] [id number] [place] [address] Dec, [facility] [place] [facility] [address] [id number] [place] [address] Dec, [facility] [place] [facility] [address] [id number] [place] [address] Dec, [facility] [place] [facility] [address] [id number] [place] [address] Dec, [facility] [place] [facility] [id number] [place] [address] 15 Dec, 2012 [facility] [place] [facility] [address] [id number] [place] [address] 15 Dec, 2012 [facility] [place] [facility] [address] [id number] [place] [address] Nov, [facility] [place] [address] [id number] [place] [address] Nov, [facility] [place] [id number] [place] [address] Nov, [facility] [place] [address] [id number] [place] [address] Nov, [facility] [place] [id number] [place] [address] Nov, [facility] [place] [id number] [place] [address] Nov, [facility] [place] [id number] [place] [address] 28 Oct, 2012 [facility] [place] [id number] [place] [address] 27 Oct, 2012 [facility] [place] [id number] [place] [address] 26 Oct, 2012 [facility] [place] [id number] [place] [address] 25 Oct, 2012 [facility] [place] [id number] [place] [address] 25 Oct, 2012 [facility] [place] [id number] [place] [address] 18 Oct, 2012 [facility] [place] [id number] [place] [address] 13 Oct, 2012 IMMUNIZATIONS No Known Immunizations [...]
--- OUTSIDE RECORDS SUMMARY | 2019-06-25 21:20 | XMS REPORT ---
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 Name Role Phone Migration, Doctor Unavailable Unavailable PROBLEMS Type Condition ICD9-CM Code LTT55-EY Code Onset Dates Condition S tatus SNOMED Code Problem ADHD (attention deficit hyperactivity disorder), combi amparo type F90.2 Active 67341720 Problem Unspecified mood [affective] disorder F39 Active 74023748 Problem Intrinsic atopic dermatitis L20.84 Ac tive 13365170 Problem Slow transit constipation K59.01 Acti ve 12590033 Problem Anxiety disorder, unspecified type F41.9 Active 295235942 Problem Major depressive disorder, single episode, mild F3 2.0 Active 29314624 Problem Irritable bowel syndrome with diarrhea K58.0 Active 253091839 ALLERGIES No Information ENCOUNTERS Encounter Location Date Diagnosis [place] [address] [address] May, [place] [address] [address] May, [place] [address] [address] Apr, [place] [address] [address] Apr, [place] [address] [address] Apr, Diet controlled gestational diabetes jessenia litus (GDM) in third trimester O24.410 [place] [address] [address] 11 Apr, 2019 30 weeks gestation of Z3A.30 ; Diet controlled gestational diabetes mellitus (GDM) in third trimester O24.410 and Encounter for immunization Z23 [place] [address] [address] 05 Apr, 2019 [place] [address] [address] [place] [id number] [place] [address] 04 Apr, 2019 Gestational diabetes O24.419 [place] [address] [address] Apr, [place] [address] [address] Apr, Abnormal glucose tolerance in O99.810 [place] [address] [address] Mar, Abnormal glucose tolerance in O99.810 [place] [address] [address] Mar, Second trimester Z33.1 ; Nause a and vomiting during O21.9 and 27 weeks gestation of Z3A.27 [place] [address] [address] Mar, [facility] [address] [place] [id number] [place] [address] Mar, Non-intractable vomiting wit h nausea, unspecified vomiting type R11.2 [place] [address] [address] Feb, [place] [address] [address] Feb, Second trimester Z33.1 [place] [address] [address] 13 Feb, 2019 Second trimester Z34.92 ; 21 w eeks gestation of Z3A.21 and Exposure to STD Z20.2 [place] [address] [address] 07 Feb, 2019 Second trimester Z33.1 [facility] [address] [facility] [id number] [address] [place] [address] 05 Feb, 2019 Non-intractable vomiting wit h nausea, unspecified vomiting type R11.2 [place] [address] [address] [place] [id number] [place] [address] Jan, [facility] [address] [address] Jan, [facility] [address] [address] Jan, First trimester Z34.91 [place] [address] [address] 16 Jan, 2019 Second trimester Z34.92 and In [facility] atopic dermatitis L20.84 [place] [address] [address] Dec, First trimester Z34.91 [place] [address] [address] Dec, Second trimester Z34.92 and Fa kim history of neural tube defect Z82.0 [place] [address] [address] 18 Dec, 2018 [facility] [address] [address] Dec, Second trimester Z34.92 ; Fami ly history of neural tube defect Z82.0 ; History of asthma Z87.09 and Wheezing R06.2 [place] [address] [place] [id number] [place] [address] Dec, [facility] [address] [facility] [id number] [address] Dec, [facility] [address] [place] [id number] [place] [address] Nov, care, subsequent in f irst trimester Z34.81 [place] [id number] [place] [address] Nov, First trimester Z34.91 ; 10 we eks gestation of Z3A.10 and Nausea and vomiting during O21.9 [place] [address] [place] [address] 14 Nov, 2018 care, subsequent in f irst trimester Z34.81 [facility] [address] [place] [id number] [address] [place] [address] 05 Nov, 2018 Vomiting O21.9 [place] [address] [address] 26 Oct, 2018 care, subsequent in f irst trimester Z34.81 and 6 weeks gestation of Z3A.01 [place] [address] [address] 20 Oct, 2018 [facility] [place] [address] [place] [address] 06 Oct, 2018 Heat rash L74.0 [place] [address] [address] Aug, UTI symptoms R39.9 [place] [address] [address] Aug, [place] [address] [address] Aug, UTI symptoms R39.9 [place] [address] [address] 10 Aug, 2018 Hematuria, unspecified type R31.9 [facility] [place] [address] [address] [place] [id number] [place] [address] Jul, Sore throat J02.9 ; UTI symp toms R39.9 and Hematuria, unspecified type R31.9 [place] [address] [address] June, Irritable bowel syndrome with diarrhea K 58.0 and Major depressive disorder, single episode, mild F32.0 [place] [address] [address] June, ADHD (attention deficit hyperactivity di sorder), combined type F90.2 ; Anxiety disorder, unspecified type F41.9 and Unspecified mood [affective] disorder F39 [facility] [address] [address] May, ADHD (attention deficit hyperactivity di sorder), combined type F90.2 ; Anxiety disorder, unspecified type F41.9 ; Unspecified mood [affective] disorder F39 and 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 [facility] [address] [address] May, Slow transit constipation K59.01 [facility] [address] [address] May, ADHD (attention deficit hyperactivity di sorder), combined type F90.2 [facility] [address] [address] May, [facility] [address] [address] May, Abdominal pain R10.9 [facility] [address] [address] Apr, [facility] [address] [address] Apr, [facility] [address] [address] Apr, ADHD (attention deficit hyperactivity di sorder), combined type F90.2 [facility] [address] [address] Apr, Abdominal pain R10.9 [facility] [address] [address] Apr, [facility] [address] [address] Mar, [facility] [address] [address] Mar, ADHD (attention deficit hyperactivity di sorder), combined type F90.2 ; Anxiety disorder, unspecified type F41.9 and Unspecified mood [affective] disorder F39 [facility] [address] [address] Mar, Viral gastroenteritis A08.4 and Slow tra nsit constipation K59.01 [facility] [address] [facility] [id number] [place] [address] Mar, Viral gastroenteritis A08.4 [place] [address] [address] Mar, ADHD (attention deficit hyperactivity di sorder), combined type F90.2 [place] [address] [address] Feb, Slow transit constipation K59.01 ; [facility] N92.6 and Nausea R11.0 [place] [address] [address] Feb, ADHD (attention deficit hyperactivity di sorder), combined type F90.2 [facility] [address] [place] [id number] [place] [address] Jan, Nausea R11.0 and Viral upper respiratory tract infection J06.9 [place] [address] [address] Jan, [place] [address] [address] Jan, ADHD (attention deficit hyperactivity di sorder), combined type F90.2 ; Anxiety disorder, unspecified type F41.9 and Unspecified mood [affective] disorder F39 [place] [address] [address] Jan, Well woman exam with routine gynecologic al exam Z01.419 ; Routine screening for STI (sexually transmitted infection) Z11.3 and Vaginal jose B37.3 [place] [address] [address] Dec, [place] [address] [place] [address] Dec, [facility] [address] [address] Dec, ADHD (attention deficit hyperactivity di sorder), combined type F90.2 ; Anxiety disorder, unspecified type F41.9 and Unspecified mood [affective] disorder F39 [facility] [address] [address] Dec, Unspecified mood [affective] disorder F3 9 ; Anxiety disorder, unspecified type F41.9 and ADHD (attention deficit hyperactivity disorder), combined type F90.2 [facility] [address] [place] [id number] [place] [address] Nov, Other specified bacterial ag ents as the cause of diseases classified elsewhere B96.89 and Otitis media, unspecified, bilateral H66.93 [facility] [address] [place] [id number] [place] [address] Nov, Sore throat J02.9 and Acute nasopharyngitis J00 [facility] [address] [place] [id number] [place] [address] Nov, ADHD (attention deficit hyperactivity di sorder), combined type F90.2 ; Anxiety disorder, unspecified type F41.9 and Unspecified mood [affective] disorder F39 [facility] [address] [address] Oct, ADHD (attention deficit hyperactivity di sorder), combined type F90.2 [facility] [address] [address] Oct, ADHD (attention deficit hyperactivity di sorder), combined type F90.2 ; Anxiety disorder, unspecified type F41.9 and Unspecified mood [affective] disorder F39 [facility] [address] [address] Sep, ADHD (attention deficit hyperactivity di sorder), combined type F90.2 [place] [address] [address] Sep, [facility] [address] [place] [id number] [place] [address] Aug, ADHD (attention deficit hyperactivity di sorder), combined type F90.2 ; Major depressive disorder, single episode, mild F32.0 and Anxiety disorder, unspecified type F41.9 [facility]ALK IN [facility] [address] [facility] [id number] [address] [place] [address] Aug, Sore throat J02.9 ; Other sp ecified bacterial agents as the cause of diseases classified elsewhere B96.89 and Acute tonsillitis due to other specified organisms J03.80 [place] [address] [place] [id number] [place] [address] Aug, ADHD (attention deficit hyperactivity di sorder), combined type F90.2 [place] [address] [address] Jul, ADHD (attention deficit hyperactivity di sorder), combined type F90.2 [facility] [address] [place] [id number] [place] [address] June, ADHD (attention deficit hyperactivity di sorder), combined type F90.2 ; Major depressive disorder, single episode, mild F32.0 and Anxiety disorder, unspecified type F41.9 [place] [address] [place] [id number] [place] [address] June, [facility] [address] [address] June, ADHD (attention deficit hyperactivity di sorder), combined type F90.2 [facility] [address] [place] [id number] [place] [address] May, [place] [address] [address] May, ADHD (attention deficit hyperactivity di sorder), combined type F90.2 ; Major depressive disorder, single episode, mild F32.0 and Anxiety disorder, unspecified type F41.9 [place] [address] [address] May, Anxiety disorder, unspecified type F41.9 [place] [address] [address] Apr, [place] [address] [address] Apr, Anxiety disorder, unspecified type F41.9 [place] [address] [address] Apr, Anxiety disorder, unspecified type F41.9 ; Major depressive disorder, single episode, mild F32.0 and ADHD (attention deficit hyperactivity disorder), combined type F90.2 [place] [address] [address] Apr, [place] [address] [address] Apr, ADHD (attention deficit hyperactivity di sorder), combined type F90.2 ; Anxiety state F41.1 ; Depressive disorder, not elsewhere classified F32.9 ; Major depressive disorder, single episode, mild F32.0 and Anxiety disorder, unspecified type F41.9 [place] [address] [address] Mar, ADHD (attention deficit hyperactivity di sorder), combined type F90.2 [place] [address] [address] Mar, Nausea R11.0 [place] [address] [address] 13 Mar, 2017 Screening for STD sexually transmitted d isease Z11.3 ; Vaginal candidiasis B37.3 and Irritable bowel syndrome with diarrhea K58.0 [place] [address] [address] 04 Mar, 2017 [place] [address] [address] 31 Home, 2018 ADHD (attention deficit hyperactivity di sorder), combined type F90.2 [facility] [address] [address] Feb, Depressive disorder, not elsewhere class ified F32.9 ; Anxiety state F41.1 and ADHD (attention deficit hyperactivity disorder), combined type F90.2 [facility] [address] [address] Feb, Depressive disorder, not elsewhere class ified F32.9 ; Anxiety state F41.1 and ADHD (attention deficit hyperactivity disorder), combined type F90.2 [facility] [address] [address] Feb, ADHD (attention deficit hyperactivity di sorder), combined type F90.2 [facility] [address] [facility] [id number] [address] [place] [address] Jan, Other viral agents as the ca use of diseases classified elsewhere B97.89 and Acute upper respiratory infection, unspecified J06.9 [place] [address] [address] Jan, ADHD (attention deficit hyperactivity di sorder), combined type F90.2 ; Major depressive disorder, single episode, mild F32.0 and Anxiety disorder, unspecified type F41.9 [place] [address] [address] Jan, [facility] [address] [address] Jan, ADHD (attention deficit hyperactivity di sorder), combined type F90.2 ; Major depressive disorder, single episode, mild F32.0 and Anxiety disorder, unspecified type F41.9 [place] [address] [address] Dec, Irritable bowel syndrome with diarrhea K 58.0 and Lower abdominal pain R10.30 [place] [address] [address] 09 Dec, 2016 Hospital discharge follow-up Z09 ; Mesen teric adenitis I88.0 ; IBD (inflammatory bowel disease) K52.9 and Nausea R11.0 [place] [address] [address] Nov, ADHD (attention deficit hyperactivity di sorder), combined type F90.2 ; Major depressive disorder, single episode, mild F32.0 and Anxiety disorder, unspecified type F41.9 [place] [address] [address] Nov, Anxiety state F41.1 ; ADHD (attention de ficit hyperactivity disorder), combined type F90.2 ; Major depressive disorder, single episode, mild F32.0 and Anxiety disorder, unspecified type F41.9 [place] [address] [address] Oct, Anxiety state F41.1 ; ADHD (attention de ficit hyperactivity disorder), combined type F90.2 ; Major depressive disorder, single episode, mild F32.0 and Anxiety disorder, unspecified type F41.9 [place] [address] [address] Oct, ADHD (attention deficit hyperactivity di sorder), combined type F90.2 ; Major depressive disorder, single episode, mild F32.0 and Anxiety disorder, unspecified type F41.9 [place] [address] [address] Oct, Major depressive disorder, single episod e, mild F32.0 ; Anxiety state F41.1 ; ADHD (attention deficit hyperactivity disorder), combined type F90.2 and Depressive disorder, not elsewhere classified F32.9 [facility] [address] [place] [id number] [address] [place] [address] 16 Oct, 2016 [facility] [address] [place] [id number] [address] [place] [address] 12 Oct, 2016 Cellulitis L03.90 and Planta r wart of right foot B07.[address] [address] Aug, ADHD (attention deficit hyperactivity di sorder), combined type F90.2 ; Major depressive disorder, single episode, mild F32.0 and Anxiety disorder, unspecified type F41.9 [facility] [address] [address] Aug, [place] [address] [address] Jul, ADHD (attention deficit hyperactivity di sorder), combined type F90.2 [place] [address] [address] Jul, Mesenteric adenitis I88.0 [place] [address] [address] June, [facility] [address] [place] [id number] [place] [address] June, Lower abdominal pain R10.30 [place] [address] [address] June, [place] [address] [address] June, ADHD (attention deficit hyperactivity di sorder), combined type F90.2 and Major depressive disorder, single episode, mild F32.0 [place] [address] [address] May, [place] [address] [address] May, ADHD (attention deficit hyperactivity di sorder), combined type F90.2 and Major depressive disorder, single episode, mild F32.0 [facility] [address] [facility] [id number] [address] [place] [address] Apr, Abdominal pain R10.9 and Gas troenteritis and colitis, viral A08.4 [facility] [address] [address] Apr, [facility] [address] [place] [address] Mar, Acute urticaria L50.8 [place] [address] [address] Mar, [place] [address] [address] Feb, [facility]ALK IN [facility] [address] [address] Feb, Gastroenteritis K52.9 [place] [address] [address] Feb, Irritant contact dermatitis due to awais tics L24.3 [place] [address] [address] Jan, [place] [address] [address] Jan, [place] [address] [address] Jan, ADHD (attention deficit hyperactivity di sorder), combined type F90.2 and Major depressive disorder, single episode, mild F32.0 [facility] WALK IN [facility] [address] [place] [id number] [place] [address] Dec, Flexural eczema L20.82 [place] [address] [address] Dec, Encounter for test Z32.00 [place] [address] [address] Dec, [place] [address] [address] Dec, [place] [address] [address] Dec, [facility] [address] [address] Nov, Sore throat J02.9 and Pharyn gitis, unspecified etiology J02.9 [facility] [address] [address] Nov, [facility] [address] [place] [id number] [place] [address] Nov, [facility] [address] [place] [id number] [place] [address] Nov, Generalized abdominal pain R10.84 and Sl ow transit constipation K59.01 [facility] [place] [address] [id number] [place] [id number] Nov, Pharyngitis, unspecified etiology J02.9 and Rhinitis, unspecified type J31.0 [facility] [address] [address] Oct, Depressive disorder, not elsewhere class ified F32.9 and ADHD (attention deficit hyperactivity disorder), combined type F90.2 [facility] [address] [address] Oct, [facility] [address] [address] Oct, [facility] [address] [facility] [id number] [address] [place] [address] Oct, Strep throat J02.0 [facility] [address] [address] 16 Oct, 2015 [place] [address] [address] 09 Oct, 2015 Well woman exam with routine gynecologic al exam Z01.419 and Screening for STD sexually transmitted disease Z11.3 [place] [address] [address] Sep, ADHD (attention deficit hyperactivity di sorder), combined type F90.2 ; Anxiety state F41.1 and Depressive disorder, not elsewhere classified F32.9 [facility] [address] [place] [address] Sep, ADHD (attention deficit hyperactivity di sorder), combined type F90.2 and Depressive disorder, not elsewhere classified F32.9 [facility] [address] [place] [id number] [place] [address] Aug, [facility] [address] [place] [id number] [place] [address] Aug, ADHD (attention deficit hyperactivity di sorder), combined type F90.2 and Depressive disorder, not elsewhere classified F32.9 [facility] [address] [place] [id number] [place] [address] Aug, ADHD (attention deficit hyperactivity di sorder), combined type F90.2 ; Anxiety state F41.1 and Depressive disorder, not elsewhere classified F32.9 [facility] [address] [place] [id number] [place] [address] Aug, [facility] [address] [place] [id number] [place] [address] Aug, [facility] [address] [address] Jul, ADHD (attention deficit hyperactivity di sorder), combined type F90.2 ; Depressive disorder, not elsewhere classified F32.9 and Anxiety state F41.1 [facility] [address] [place] [id number] [place] [address] Jul, [facility] [address] [place] [id number] [place] [address] Jul, ADHD (attention deficit hyperactivity di sorder), combined type F90.2 ; Anxiety state F41.1 and Depressive disorder, not elsewhere classified F32.9 [facility] [address] [place] [id number] [place] [address] June, [facility] [place] [address] [facility] [place] [id number] June, Constipation K59.00 [facility] [address] [place] [id number] [place] [address] 28 May, 2016 Constipation K59.00 [facility] [address] [facility] [id number] [address] [place] [address] 20 May, 2016 Irritable bowel syndrome wit h diarrhea K58.0 [facility] ([facility] [address] [id number] [place] [address] 15 May, 2015 [facility] ([facility] [address] [id number] [place] [address] 15 May, 2015 [facility] ([facility] [address] [id number] [place] [address] 14 May, 2014 [facility] ([facility] [address] [id number] [place] [address] 13 May, 2014 [facility] ([facility] [address] [id number] [place] [address] 29 Jan, 2014 [facility] ([facility] [address] [id number] [place] [address] 29 Jan, 2014 [facility] [id number] [place] [address] 08 Jan, 2014 [facility] [id number] [place] [address] 08 Jan, 2014 [facility] ([facility] [address] [id number] [place] [address] 05 Jan, 2014 [facility] [id number] [place] [address] 05 Jan, 2014 [facility] ([facility] [address] [id number] [place] [address] Nov, [facility] ([facility] [id number] [place] [address] Nov, [facility] ([facility] [address] [id number] [place] [address] 18 Oct, 2013 [facility] [id number] [place] [address] 18 Oct, 2013 [facility] ([facility] [id number] [place] [address] Sep, [facility] [place] [facility] [address] [facility] [id number] [place] [address] Sep, [facility] [place] [facility] [address] [facility] [id number] [facility] [place] [address] Aug, [facility] [place] [facility] [address] [id number] [place] [address] Aug, [facility] [place] [facility] [address] [facility] [id number] [place] [address] Aug, [facility] [place] [facility] [address] [facility] [id number] [place] [address] Aug, [facility] [place] [facility] [address] [id number] [place] [address] Aug, [facility] [place] [facility] [address] [id number] [place] [address] Aug, [facility] [place] [facility] [address] [id number] [place] [address] Aug, [facility] [place] [facility] [address] [facility] [id number] [place] [address] Aug, [facility] [place] [facility] [address] [id number] [place] [address] Jul, [facility] [place] [facility] [address] [id number] [place] [address] Jul, [facility] [place] [facility] [address] [id number] [place] [address] Jul, [facility] [place] [facility] [address] [facility] [id number] [place] [address] Jul, [facility] [place] [facility] [address] [id number] [place] [address] Jul, [facility] [place] [facility] [address] [id number] [place] [address] Jul, [facility] [place] [facility] [address] [id number] [place] [address] Jul, [facility] [place] [facility] [address] [facility] [id number] [place] [address] Jul, [facility] [place] [facility] [address] [id number] [place] [address] Jul, [facility] [place] [facility] [address] [id number] [place] [address] June, [facility] [place] [facility] [address] [id number] [place] [address] June, [facility] [place] [facility] [address] [id number] [place] [address] May, [facility] [place] [facility] [address] [id number] [place] [address] May, [facility] [place] [facility] [address] [id number] [place] [address] May, [facility] [place] [facility] [address] [id number] [place] [address] May, [facility] [place] [facility] [address] [id number] [place] [address] May, [facility] [place] [facility] [address] [id number] [place] [address] May, [facility] [place] [facility] [address] [id number] [place] [address] May, [facility] [place] [facility] [address] [id number] [place] [address] May, [facility] [place] [facility] [address] [id number] [place] [address] May, [facility] [place] [facility] [address] [id number] [place] [address] May, [facility] [place] [facility] [address] [id number] [place] [address] May, [facility] [place] [facility] [address] [id number] [place] [address] May, [facility] [place] [facility] [address] [id number] [place] [address] Apr, [facility] [place] [facility] [address] [id number] [place] [address] Apr, [facility] [place] [facility] [address] [id number] [place] [address] Apr, [facility] [place] [facility] [address] [id number] [place] [address] Apr, [facility] [place] [facility] [address] [id number] [place] [address] Mar, [facility] [place] [facility] [address] [id number] [place] [address] Mar, [facility] [place] [facility] [address] [id number] [place] [address] Mar, [facility] [place] [facility] [address] [id number] [place] [address] Mar, [facility] [place] [facility] [address] [id number] [place] [address] Mar, [facility] [place] [facility] [address] [id number] [place] [address] Mar, [facility] [place] [facility] [address] [id number] [place] [address] Mar, [facility] [place] [facility] [address] [id number] [place] [address] Mar, [facility] [place] [facility] [address] [id number] [place] [address] Mar, [facility] [place] [facility] [address] [id number] [place] [address] Mar, [facility] [place] [facility] [address] [id number] [place] [address] 14 Mar, 2013 [facility] [place] [facility] [address] [id number] [place] [address] 14 Mar, 2013 [facility] [place] [facility] [address] [id number] [place] [address] 13 Mar, 2013 [facility] [place] [facility] [address] [id number] [place] [address] Mar, [facility] [place] [facility] [address] [facility] [id number] [place] [address] Mar, [facility] [place] [facility] [address] [id number] [place] [address] Mar, [facility] [place] [facility] [address] [id number] [place] [address] Mar, [facility] [place] [facility] [address] [id number] [place] [address] Mar, [facility] [place] [facility] [address] [id number] [place] [address] Mar, [facility] [place] [facility] [address] [id number] [place] [address] Mar, [facility] [place] [facility] [address] [id number] [place] [address] Feb, [facility] [place] [facility] [address] [id number] [place] [address] Feb, [facility] [place] [facility] [address] [id number] [place] [address] Feb, [facility] [place] [facility] [address] [id number] [place] [address] Feb, [facility] [place] [facility] [address] [id number] [place] [address] Feb, [facility] [place] [facility] [address] [id number] [place] [address] Feb, [facility] [place] [facility] [address] [id number] [place] [address] Feb, [facility] [place] [facility] [address] [id number] [place] [address] Feb, [facility] [place] [facility] [address] [id number] [place] [address] Feb, [facility] [place] [facility] [address] [id number] [place] [address] Feb, [facility] [place] [facility] [address] [facility] [id number] [place] [address] Feb, [facility] [place] [facility] [address] [id number] [place] [address] Feb, [facility] [place] [facility] [address] [id number] [place] [address] Feb, [facility] [place] [facility] [address] [id number] [place] [address] Feb, [facility] [place] [facility] [address] [facility] [id number] [place] [address] Feb, [facility] [place] [facility] [address] [id number] [place] [address] Feb, [facility] [place] [facility] [address] [id number] [place] [address] Feb, [facility] [place] [facility] [address] [id number] [place] [address] Feb, [facility] [place] [facility] [address] [id number] [place] [address] Feb, [facility] [place] [facility] [address] [id number] [place] [address] Feb, [facility] [place] [facility] [address] [id number] [place] [address] Feb, [facility] [place] [facility] [address] [id number] [place] [address] Feb, [facility] [place] [facility] [address] [id number] [place] [address] Feb, [facility] [place] [facility] [address] [id number] [place] [address] Jan, [facility] [place] [facility] [address] [id number] [place] [address] Jan, [facility] [place] [facility] [address] [id number] [place] [address] Jan, [facility] [place] [facility] [address] [id number] [place] [address] 18 Jan, 2013 [facility] [place] [facility] [address] [id number] [place] [address] 18 Jan, 2013 [facility] [place] [facility] [address] [id number] [place] [address] 18 Jan, 2013 [facility] [place] [facility] [address] [id number] [place] [address] 18 Jan, 2013 [facility] [place] [facility] [address] [id number] [place] [address] Jan, [facility] [place] [facility] [address] [id number] [place] [address] Jan, [facility] [place] [facility] [address] [id number] [place] [address] Jan, [facility] [place] [facility] [address] [id number] [place] [address] Jan, [facility] [place] [facility] [id number] [place] [address] Jan, [facility] [place] [facility] [address] [id number] [place] [address] Jan, [facility] [place] [facility] [id number] [place] [address] Dec, [facility] [place] [facility] [address] [id number] [place] [address] Dec, [facility] [place] [facility] [address] [id number] [place] [address] Dec, [facility] [place] [facility] [address] [id number] [place] [address] Dec, [facility] [place] [facility] [id number] [place] [address] 15 Dec, 2012 [facility] [place] [facility] [address] [id number] [place] [address] 15 Dec, 2012 [facility] [place] [facility] [address] [id number] [place] [address] Nov, [facility] [address] [id number] [place] [address] Nov, [facility] [id number] [place] [address] Nov, [facility] [address] [id number] [place] [address] Nov, [facility] [id number] [place] [address] Nov, [facility] [id number] [place] [address] Nov, [facility] [id number] [place] [address] 28 Oct, 2012 [facility] [id number] [place] [address] 27 Oct, 2012 [facility] [id number] [place] [address] 26 Oct, 2012 [facility] [id number] [place] [address] Oct, [facility] [id number] [place] [address] Oct, [facility] [id number] [place] [address] 18 Oct, 2012 [facility] [id number] [place] [address] 13 Oct, 2012 IMMUNIZATIONS No Known Immunizations SOCIAL HISTORY Never Assessed REASON FOR VISIT PLAN OF CARE VITAL SIGNS MEDICATIONS Unknown Medications RESULTS No Results PROCEDURES Procedure Date Ordered Result Body Site PSYTX PT&/FAMILY 45 MINUTES Mar 08, 2013 INSTRUCTIONS MEDICATIONS ADMINISTERED No Known Medications [...]
--- OUTSIDE RECORDS SUMMARY | 2019-06-25 21:21 | XMS REPORT ---
Author Author Sheyla JURADO Organization 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 Name Role Phone RHIANNONJUANITAGENARO Unavailable PROBLEMS Type Condition ICD9-CM Code UBI42-QT Code Onset Dates Condition S tatus SNOMED Code Problem ADHD (attention deficit hyperactivity disorder), combi amparo type F90.2 Active 73161027 Problem Unspecified mood [affective] disorder F39 Active 80027876 Problem Intrinsic atopic dermatitis L20.84 Ac tive 20759205 Problem Slow transit constipation K59.01 Acti ve 50223911 Problem Anxiety disorder, unspecified type F41.9 Active 804762972 Problem Major depressive disorder, single episode, mild F3 2.0 Active 69949804 Problem Irritable bowel syndrome with diarrhea K58.0 Active 707745291 ALLERGIES No Information ENCOUNTERS Encounter Location Date Diagnosis [place] [address] [address] May, [facility] [address] [address] May, [place] [address] [address] Apr, [facility] [address] [address] Apr, [place] [address] [address] Apr, Diet controlled gestational diabetes jessenia litus (GDM) in third trimester O24.410 [facility] [address] [address] Apr, 30 weeks gestation of Z3A.30 ; Diet controlled gestational diabetes mellitus (GDM) in third trimester O24.410 and Encounter for immunization Z23 [place] [address] [address] 05 Apr, 2019 [place] [address] [address] 04 Apr, 2019 Gestational diabetes O24.419 [place] [address] [address] 03 Apr, 2019 [place] [address] [address] 02 Apr, 2019 Abnormal glucose tolerance in O99.810 [place] [address] [address] Mar, Abnormal glucose tolerance in O99.810 [place] [address] [address] Mar, Second trimester Z33.1 ; Nause a and vomiting during O21.9 and 27 weeks gestation of Z3A.27 [place] [address] [address] Mar, [facility] [address] [place] [id number] [address] [place] [address] Mar, Non-intractable vomiting wit h nausea, unspecified vomiting type R11.2 [place] [address] [address] Feb, [place] [address] [address] Feb, Second trimester Z33.1 [place] [address] [address] Feb, Second trimester Z34.92 ; 21 w eeks gestation of Z3A.21 and Exposure to STD Z20.2 [place] [address] [address] 07 Feb, 2019 Second trimester Z33.1 [facility] [address] [place], [place] [id number] [address] [place] [address] Feb, Non-intractable vomiting wit h nausea, unspecified vomiting type R11.2 [place] [address] [address] Jan, [place] [address] [address] Jan, [place] [address] [address] Jan, First trimester Z34.91 [place] [address] [address] 16 Jan, 2019 Second trimester Z34.92 and In trinsic atopic dermatitis L20.[address] [address] Dec, First trimester Z34.91 [place] [address] [address] Dec, Second trimester Z34.92 and Fa kim history of neural tube defect Z82.0 [place] [address] [address] Dec, [address] [address] Dec, Second trimester Z34.92 ; Fami ly history of neural tube defect Z82.0 ; History of asthma Z87.09 and Wheezing R06.2 [place] [address] [address] Dec, [facility] [address] [facility] [place] [address] Dec, [address] [address] Nov, care, subsequent in f irst trimester Z34.81 [place] [address] [address] Nov, First trimester Z34.91 ; 10 we eks gestation of Z3A.10 and Nausea and vomiting during O21.9 [place] [address] [address] 14 Nov, 2018 care, subsequent in f irst trimester Z34.81 [facility] [address] N [facility] [id number] [address] [place] [address] 05 Nov, 2018 Vomiting O21.9 [place] [address] [address] 26 Oct, 2018 care, subsequent in f irst trimester Z34.81 and 6 weeks gestation of Z3A.01 [place] [address] [address] 20 Oct, 2018 [facility] [place] [address] [address] [place] [id number] [address] [place] [address] 06 Oct, 2018 Heat rash L74.0 [place] [address] [address] Aug, UTI symptoms R39.9 [place] [address] [address] Aug, [place] [address] [address] Aug, UTI symptoms R39.9 [place] [address] [address] Aug, Hematuria, unspecified type R31.9 [facility] [place] [address] [address] [place] [id number] [address] [place] [address] Jul, Sore throat J02.9 ; UTI symp toms R39.9 and Hematuria, unspecified type R31.9 [place] [address] [address] June, Irritable bowel syndrome with diarrhea K 58.0 and Major depressive disorder, single episode, mild F32.0 [place] [address] [address] June, ADHD (attention deficit hyperactivity di sorder), combined type F90.2 ; Anxiety disorder, unspecified type F41.9 and Unspecified mood [affective] disorder F39 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 [address] [address] May, Slow transit constipation K59.01 [facility] [address] [address] May, ADHD (attention deficit hyperactivity di sorder), combined type F90.2 [facility] [address] [address] May, [facility] [address] [address] May, Abdominal pain R10.9 [facility] [address] [address] Apr, [facility] [address] [address] Apr, [facility] [address] [address] Apr, ADHD (attention deficit hyperactivity di sorder), combined type F90.2 [facility] [address] [address] Apr, Abdominal pain R10.9 [facility] [address] [address] Apr, [facility] [address] [address] Mar, [facility] [address] [address] Mar, ADHD (attention deficit hyperactivity di sorder), combined type F90.2 ; Anxiety disorder, unspecified type F41.9 and Unspecified mood [affective] disorder F39 [place] [address] [address] Mar, Viral gastroenteritis A08.4 and Slow tra nsit constipation K59.01 [facility] WALK IN [facility] [address] [place] [address] Mar, Viral gastroenteritis A08.4 [place] [address] [address] Mar, ADHD (attention deficit hyperactivity di sorder), combined type F90.2 [place] [address] [address] Feb, Slow transit constipation K59.01 ; Misse d period N92.6 and Nausea R11.0 [place] [address] [address] Feb, ADHD (attention deficit hyperactivity di sorder), combined type F90.2 [facility] IN [facility] [address] [place] [id number] [place] [address] Jan, Nausea R11.0 and Viral upper respiratory tract infection J06.9 [place] [address] [address] Jan, [place] [address] [address] [place] [id number] Jan, ADHD (attention deficit hyperactivity di sorder), combined type F90.2 ; Anxiety disorder, unspecified type F41.9 and Unspecified mood [affective] disorder F39 [place] [address] [address] Jan, Well woman exam with routine gynecologic al exam Z01.419 ; Routine screening for STI (sexually transmitted infection) Z11.3 and Vaginal jose B37.3 [place] [address] [place] [id number] Dec, [facility] [address] [address] Dec, [place] [address] [address] Dec, ADHD (attention deficit hyperactivity di sorder), combined type F90.2 ; Anxiety disorder, unspecified type F41.9 and Unspecified mood [affective] disorder F39 [place] [address] [address] Dec, Unspecified mood [affective] disorder F3 9 ; Anxiety disorder, unspecified type F41.9 and ADHD (attention deficit hyperactivity disorder), combined type F90.2 [facility] [address] [facility] [id number] [address] [place] [address] Nov, Other specified bacterial ag ents as the cause of diseases classified elsewhere B96.89 and Otitis media, unspecified, bilateral H66.93 [facility] [address] [facility] [id number] [place] [address] Nov, Sore throat J02.9 and Acute nasopharyngitis J00 [place] [address] [address] Nov, ADHD (attention deficit hyperactivity di sorder), combined type F90.2 ; Anxiety disorder, unspecified type F41.9 and Unspecified mood [affective] disorder F39 [place] [address] [address] Oct, ADHD (attention deficit hyperactivity di sorder), combined type F90.2 [place] [address] [address] Oct, ADHD (attention deficit hyperactivity di sorder), combined type F90.2 ; Anxiety disorder, unspecified type F41.9 and Unspecified mood [affective] disorder F39 [place] [address] [address] Sep, ADHD (attention deficit hyperactivity di sorder), combined type F90.2 [facility] [address] [place] [id number] [place] [address] Sep, [facility] [address] [place] [id number] [place] [address] Aug, ADHD (attention deficit hyperactivity di sorder), combined type F90.2 ; Major depressive disorder, single episode, mild F32.0 and Anxiety disorder, unspecified type F41.9 [facility] [address] [facility] [id number] [address] [place] [address] Aug, Sore throat J02.9 ; Other sp ecified bacterial agents as the cause of diseases classified elsewhere B96.89 and Acute tonsillitis due to other specified organisms J03.80 [facility] [address] [place] [id number] [place] [address] Aug, ADHD (attention deficit hyperactivity di sorder), combined type F90.2 [place] [address] [place] [id number] [place] [address] Jul, ADHD (attention deficit hyperactivity di sorder), combined type F90.2 [facility] [address] [place] [id number] [place] [address] June, ADHD (attention deficit hyperactivity di sorder), combined type F90.2 ; Major depressive disorder, single episode, mild F32.0 and Anxiety disorder, unspecified type F41.9 [facility] [address] [place] [id number] [place] [address] June, [place] [address] [address] June, ADHD (attention deficit hyperactivity di sorder), combined type F90.2 [place] [address] [place] [id number] [place] [address] May, [facility] [address] [address] May, ADHD (attention deficit hyperactivity di sorder), combined type F90.2 ; Major depressive disorder, single episode, mild F32.0 and Anxiety disorder, unspecified type F41.9 [place] [address] [address] May, Anxiety disorder, unspecified type F41.9 [place] [address] [address] Apr, [place] [address] [address] Apr, Anxiety disorder, unspecified type F41.9 [place] [address] [address] Apr, Anxiety disorder, unspecified type F41.9 ; Major depressive disorder, single episode, mild F32.0 and ADHD (attention deficit hyperactivity disorder), combined type F90.2 [place] [address] [address] Apr, [place] [address] [address] Apr, ADHD (attention deficit hyperactivity di sorder), combined type F90.2 ; Anxiety state F41.1 ; Depressive disorder, not elsewhere classified F32.9 ; Major depressive disorder, single episode, mild F32.0 and Anxiety disorder, unspecified type F41.9 [place] [address] [address] Mar, ADHD (attention deficit hyperactivity di sorder), combined type F90.2 [place] [address] [address] Mar, Nausea R11.0 [place] [address] [address] Mar, Screening for STD sexually transmitted d isease Z11.3 ; Vaginal candidiasis B37.3 and Irritable bowel syndrome with diarrhea K58.0 [place] [address] [address] 04 Mar, 2017 [place] [address] [address] Feb, ADHD (attention deficit hyperactivity di sorder), combined type F90.2 [facility] [address] [address] Feb, Depressive disorder, not elsewhere class ified F32.9 ; Anxiety state F41.1 and ADHD (attention deficit hyperactivity disorder), combined type F90.2 [place] [address] [address] Feb, Depressive disorder, not elsewhere class ified F32.9 ; Anxiety state F41.1 and ADHD (attention deficit hyperactivity disorder), combined type F90.2 [place] [address] [address] Feb, ADHD (attention deficit hyperactivity di sorder), combined type F90.2 [facility]ALK IN [facility] [address] [facility] [id number] [address] [place] [address] Jan, Other viral agents as the ca use of diseases classified elsewhere B97.89 and Acute upper respiratory infection, unspecified J06.9 [place] [address] [address] Jan, ADHD (attention deficit hyperactivity di sorder), combined type F90.2 ; Major depressive disorder, single episode, mild F32.0 and Anxiety disorder, unspecified type F41.9 [place] [address] [address] Jan, [place] [address] [address] Jan, ADHD (attention deficit hyperactivity di sorder), combined type F90.2 ; Major depressive disorder, single episode, mild F32.0 and Anxiety disorder, unspecified type F41.9 [place] [address] [address] Dec, Irritable bowel syndrome with diarrhea K 58.0 and Lower abdominal pain R10.30 [place] [address] [address] Dec, Hospital discharge follow-up Z09 ; Mesen teric adenitis I88.0 ; IBD (inflammatory bowel disease) K52.9 and Nausea R11.0 [place] [address] [address] Nov, ADHD (attention deficit hyperactivity di sorder), combined type F90.2 ; Major depressive disorder, single episode, mild F32.0 and Anxiety disorder, unspecified type F41.9 [place] [address] [address] Nov, Anxiety state F41.1 ; ADHD (attention de ficit hyperactivity disorder), combined type F90.2 ; Major depressive disorder, single episode, mild F32.0 and Anxiety disorder, unspecified type F41.9 [place] [address] [address] Oct, Anxiety state F41.1 ; ADHD (attention de ficit hyperactivity disorder), combined type F90.2 ; Major depressive disorder, single episode, mild F32.0 and Anxiety disorder, unspecified type F41.9 [place] [address] [address] Oct, ADHD (attention deficit hyperactivity di sorder), combined type F90.2 ; Major depressive disorder, single episode, mild F32.0 and Anxiety disorder, unspecified type F41.[address] [address] Oct, Major depressive disorder, single episod e, mild F32.0 ; Anxiety state F41.1 ; ADHD (attention deficit hyperactivity disorder), combined type F90.2 and Depressive disorder, not elsewhere classified F32.9 [facility] [address] [place], [place] [id number] [address] [place] [address] 16 Oct, 2016 [facility] [address] [place], [place] [id number] [address] [place] [address] Oct, Cellulitis L03.90 and Planta r wart of right foot B07.0 [place] [address] [address] Aug, ADHD (attention deficit hyperactivity di sorder), combined type F90.2 ; Major depressive disorder, single episode, mild F32.0 and Anxiety disorder, unspecified type F41.9 [place] [address] [address] Aug, [place] [address] [address] Jul, ADHD (attention deficit hyperactivity di sorder), combined type F90.2 [place] [address] [address] Jul, Mesenteric adenitis I88.0 [place] [address] [address] June, [facility] [address] [place] [id number] [address] [place] [address] June, Lower abdominal pain R10.30 [place] [address] [address] June, [place] [address] [address] June, ADHD (attention deficit hyperactivity di sorder), combined type F90.2 and Major depressive disorder, single episode, mild F32.0 [place] [address] [address] May, [place] [address] [address] May, ADHD (attention deficit hyperactivity di sorder), combined type F90.2 and Major depressive disorder, single episode, mild F32.0 [facility] [address] [facility] [id number] [address] [place] [address] Apr, Abdominal pain R10.9 and Gas troenteritis and colitis, viral A08.4 [place] [address] [address] Apr, [facility] [address] [place] [address] Mar, Acute urticaria L50.8 [place] [address] [address] Mar, [facility] [address] [address] Feb, [facility] [address] [place] [id number] [address] [place] [address] Feb, Gastroenteritis K52.9 [place] [address] [address] Feb, Irritant contact dermatitis due to awais tics L24.3 [place] [address] [address] Jan, [place] [address] [address] Jan, [place] [address] [address] Jan, ADHD (attention deficit hyperactivity di sorder), combined type F90.2 and Major depressive disorder, single episode, mild F32.0 [facility] [address] [place] [address] Dec, Flexural eczema L20.82 [place] [address] [address] Dec, Encounter for test Z32.00 [place] [address] [address] Dec, [place] [address] [address] Dec, [place] [address] [address] Dec, [facility] [address] [facility] [id number] [place] [address] Nov, Sore throat J02.9 and Pharyn gitis, unspecified etiology J02.9 [facility] [address] [place] [id number] [place] [address] Nov, [facility] [address] [place] [id number] [place] [address] Nov, [facility] [address] [address] Nov, Generalized abdominal pain R10.84 and Sl ow transit constipation K59.01 [facility] [address] [facility] [id number] Nov, Pharyngitis, unspecified etiology J02.9 and Rhinitis, unspecified type J31.0 [place] [address] [address] Oct, Depressive disorder, not elsewhere class ified F32.9 and ADHD (attention deficit hyperactivity disorder), combined type F90.2 [place] [address] [address] Oct, [place] [address] [address] Oct, [facility] [address] [facility] [id number] [place] [address] Oct, Strep throat J02.0 [facility] [address] [address] Oct, [place] [address] [address] 09 Oct, 2016 Well woman exam with routine gynecologic al exam Z01.419 and Screening for STD sexually transmitted disease Z11.3 [place] [address] [address] Sep, ADHD (attention deficit hyperactivity di sorder), combined type F90.2 ; Anxiety state F41.1 and Depressive disorder, not elsewhere classified F32.9 [facility] [address] [place] [id number] [place] [address] Sep, ADHD (attention deficit hyperactivity di sorder), combined type F90.2 and Depressive disorder, not elsewhere classified F32.9 [facility] [address] [place] [id number] [place] [address] Aug, [facility] [address] [address] Aug, ADHD (attention deficit hyperactivity di sorder), combined type F90.2 and Depressive disorder, not elsewhere classified F32.9 [facility] [address] [address] Aug, ADHD (attention deficit hyperactivity di sorder), combined type F90.2 ; Anxiety state F41.1 and Depressive disorder, not elsewhere classified F32.9 [facility] [address] [address] Aug, [facility] [address] [address] Aug, [facility] [address] [address] Jul, ADHD (attention deficit hyperactivity di sorder), combined type F90.2 ; Depressive disorder, not elsewhere classified F32.9 and Anxiety state F41.1 [facility] [address] [address] Jul, [facility] [address] [address] Jul, ADHD (attention deficit hyperactivity di sorder), combined type F90.2 ; Anxiety state F41.1 and Depressive disorder, not elsewhere classified F32.9 [facility] [address] [place] [id number] [place] [address] June, [facility] [address] [facility]757[facility] [place] [place] [id number] June, Constipation K59.00 [facility] [address] [id number] [place] [address] May, Constipation K59.00 [facility] [address] [facility] [id number] [address] [place] [address] May, Irritable bowel syndrome wit h diarrhea K58.0 [facility] [address] [id number] [place] [address] 15 May, 2015 [facility] [address] [id number] [place] [address] 15 May, 2015 [facility] [id number] [place] [id number] 14 May, 2014 [facility] [address] [address] May, [facility] [address] [id number] [place] [address] Jan, [facility] [id number] [place] [address] Jan, [facility] [facility] [address] [id number] [place] [address] Jan, [facility] [id number] [place] [address] Jan, [facility] [address] [id number] [place] [address] Jan, [facility] [address] [id number] [place] [address] Jan, [facility] [address] [id number] [place] [address] Nov, [facility] [id number] [place] [address] Nov, [facility] [address] [id number] [place] [address] 18 Oct, 2013 [facility] [address] [address] Oct, [facility] [address] [facility] [id number] [facility] [address] Sep, [facility] [address] [facility] [id number] [facility] [place] [address] Sep, [facility] [address] [facility] [id number] [facility] [place] [address] Aug, [facility] [address] [facility] [id number] [facility] [place] [address] Aug, [facility] [address] [facility] [id number] [facility] [place] [address] Aug, [facility] [address] [id number] [place] [address] Aug, [facility] [address] [id number] [place] [address] Aug, [facility] [address] [id number] [place] [address] Aug, [facility] [address] [facility] [id number] [place] [address] Aug, [facility] [address] [id number] [place] [address] Aug, [facility] [address] [id number] [place] [address] Jul, [facility] [address] [id number] [place] [address] Jul, [facility] [address] [facility] [id number] [place] [address] Jul, [facility] [address] [id number] [place] [address] Jul, [facility] [address] [id number] [place] [address] Jul, [facility] [address] [id number] [place] [address] Jul, [facility] [address] [id number] [place] [address] Jul, [facility] [address] [id number] [facility] [place] [address] Jul, [facility] [address] [facility] [id number] [place] [address] Jul, [facility] [address] [id number] [place] [address] June, [facility] [address] [id number] [place] [address] June, [facility] [address] [id number] [place] [address] May, [facility] [address] [id number] [place] [address] May, [facility] [address] [id number] [place] [address] May, [facility] [address] [id number] [place] [address] May, [facility] [address] [id number] [place] [address] May, [facility] [address] [id number] [place] [address] May, [facility] [address] [id number] [place] [address] May, [facility] [address] [id number] [place] [address] May, [facility] [address] [id number] [place] [address] May, [facility] [address] [id number] [place] [address] May, [facility] [address] [id number] [place] [address] May, [facility] [address] [id number] [place] [address] May, [facility] [address] [id number] [place] [address] Apr, [facility] [address] [id number] [place] [address] Apr, [facility] [address] [id number] [place] [address] Apr, [facility] [address] [id number] [place] [address] Apr, [facility] [address] [id number] [place] [address] Mar, [facility] [address] [id number] [place] [address] Mar, [facility] [address] [id number] [place] [address] Mar, [facility] [address] [id number] [place] [address] Mar, [facility] [address] [id number] [place] [address] Mar, [facility] [address] [id number] [place] [address] Mar, [facility] [address] [id number] [place] [address] Mar, [facility] [address] [id number] [place] [address] Mar, [facility] [address] [id number] [place] [address] Mar, [facility] [address] [id number] [place] [address] Mar, [facility] [address] [id number] [place] [address] Mar, [facility] [address] [id number] [place] [address] Mar, [facility] [address] [id number] [place] [address] Mar, [facility] [address] [id number] [place] [address] Mar, [facility] [address] [id number] [place] [address] Mar, [facility] [address] [id number] [place] [address] Mar, [facility] [address] [id number] [place] [address] Mar, [facility] [address] [id number] [place] [address] Mar, [facility] [address] [id number] [place] [address] Mar, [facility] [address] [id number] [place] [address] Mar, [facility] [address] [id number] [place] [address] Feb, [facility] [address] [id number] [place] [address] Feb, [facility] [address] [id number] [place] [address] Feb, [facility] [address] [id number] [place] [address] Feb, [facility] [address] [id number] [place] [address] Feb, [facility] [address] [id number] [place] [address] Feb, [facility] [address] [id number] [place] [address] Feb, [facility] [address] [id number] [place] [address] Feb, [facility] [address] [id number] [place] [address] Feb, [facility] [address] [facility] [id number] [place] [address] Feb, [facility] [address] [facility] [id number] [place] [address] Feb, [facility] [address] [id number] [place] [address] Feb, [facility] [address] [id number] [place] [address] Feb, [facility] [address] [facility] [id number] [place] [address] Feb, [facility] [address] [id number] [place] [address] Feb, [facility] [address] [id number] [place] [address] Feb, [facility] [address] [id number] [place] [address] Feb, [facility] [address] [id number] [place] [address] Feb, [facility] [address] [id number] [place] [address] Feb, [facility] [address] [id number] [place] [address] Feb, [facility] [address] [id number] [place] [address] Feb, [facility] [address] [id number] [place] [address] Feb, [facility] [address] [id number] [place] [address] Feb, [facility] [address] [id number] [place] [address] Jan, [facility] [address] [id number] [place] [address] Jan, [facility] [address] [id number] [place] [address] 19 Jan, 2012 [facility] [address] [id number] [place] [address] 18 Jan, 2013 [facility] [address] [id number] [place] [address] 18 Jan, 2013 [facility] [address] [id number] [place] [address] 18 Jan, 2013 [facility] [address] [id number] [place] [address] 18 Jan, 2013 [facility] [address] [id number] [place] [address] 17 Jan, 2013 [facility] [address] [id number] [place] [address] 17 Jan, 2013 [facility] [address] [id number] [place] [address] 2013 [facility] [address] [id number] [place] [address] Jan, [facility] [address] [id number] [place] [address] Jan, [facility] [address] [id number] [place] [address] 04 Jan, 2013 [facility] [address] [id number] [place] [address] 20 Dec, 2012 [facility] [address] [id number] [place] [address] 20 Dec, 2012 [facility] [address] [id number] [place] [address] 20 Dec, 2012 [facility] [id number] [place] [address] 20 Dec, 2012 [facility] [address] [id number] [place] [address] 15 Dec, 2012 [facility] [address] [id number] [place] [address] 15 Dec, 2012 [facility] [id number] [place] [address] Nov, [facility] [address] [id number] [place] [address] Nov, [facility] [id number] [place] [address] Nov, [facility] [id number] [place] [address] Nov, [facility] [id number] [place] [address] Nov, [facility] [address] [address] Nov, [facility] [address] [address] Oct, [facility] [address] [address] 27 Oct, 2012 [facility] [id number] [place] [address] 26 Oct, 2012 [facility] [address] [id number] [place] [address] 25 Oct, 2012 [facility] [id number] [place] [address] 25 Oct, 2012 [facility] [id number] [place] [address] 18 Oct, 2012 [facility] [id number] [place] [address] 13 Oct, 2012 IMMUNIZATIONS No Known Immunizations SOCIAL HISTORY Never Assessed REASON FOR VISIT PLAN OF CARE VITAL SIGNS Height 59 in 2013-04-02 Weight 140.8 lbs 2013-04-02 Temperature 97.3 degrees Fahrenheit 2013-04-02 Heart Rate 84 bpm 2013-04-02 Respiratory Rate 16 2013-04-02 Blood pressure systolic 118 mmHg 2013-04-02 Blood pressure diastolic 60 mmHg 2013-04-02 MEDICATIONS Unknown Medications RESULTS No Results PROCEDURES Procedure Date Ordered Result Body Site STREP CULTURE Apr 02, 2013 URINE-NO MICRO Apr 02, 2013 INSTRUCTIONS MEDICATIONS ADMINISTERED No Known Medications [...]
--- OUTSIDE RECORDS SUMMARY | 2019-06-25 21:21 | XMS REPORT ---
Author Author Sheyla Xavier Doctor Organization [facility] Address Unknown Phone Unavailable Care Team Providers Care Commercial Artist Name Role Phone Migration, Doctor Unavailable Unavailable PROBLEMS Type Condition ICD9-CM Code PMA26-TN Code Onset Dates Condition S tatus SNOMED Code Problem ADHD (attention deficit hyperactivity disorder), combi amparo type F90.2 Active 64570471 Problem Unspecified mood [affective] disorder F39 Active 38203738 Problem Intrinsic atopic dermatitis L20.84 Ac tive 60688070 Problem Slow transit constipation K59.01 Acti ve 29720736 Problem Anxiety disorder, unspecified type F41.9 Active 381509361 Problem Major depressive disorder, single episode, mild F3 2.0 Active 56620492 Problem Irritable bowel syndrome with diarrhea K58.0 Active 780458928 ALLERGIES No Information ENCOUNTERS Encounter Location Date Diagnosis [place] [address] [address] May, [place] [address] [address] May, [place] [address] [address] Apr, [place] [address] [address] Apr, [place] [address] [address] Apr, Diet controlled gestational diabetes jessenia litus (GDM) in third trimester O24.410 [place] [address] [address] 11 Apr, 2019 30 weeks gestation of Z3A.30 ; Diet controlled gestational diabetes mellitus (GDM) in third trimester O24.410 and Encounter for immunization Z23 [place] [address] [address] 05 Apr, 2019 [place] [address] [place] [id number] [place] [address] 04 Apr, 2019 Gestational diabetes O24.419 [place] [address] [address] Apr, [place] [address] [address] Apr, Abnormal glucose tolerance in O99.810 [place] [address] [address] Mar, Abnormal glucose tolerance in O99.810 [place] [address] [address] Mar, Second trimester Z33.1 ; Nause a and vomiting during O21.9 and 27 weeks gestation of Z3A.27 [place] [address] [address] Mar, [facility] [address] [place] [id number] [place] [address] Mar, Non-intractable vomiting wit h nausea, unspecified vomiting type R11.2 [place] [address] [address] Feb, [place] [address] [address] Feb, Second trimester Z33.1 [place] [address] [address] 13 Feb, 2019 Second trimester Z34.92 ; 21 w eeks gestation of Z3A.21 and Exposure to STD Z20.2 [place] [address] [address] 07 Feb, 2019 Second trimester Z33.1 [facility] [address] [facility] [id number] [address] [place] [address] 05 Feb, 2019 Non-intractable vomiting wit h nausea, unspecified vomiting type R11.2 [place] [address] [place] [id number] [place] [address] Jan, [facility] [address] [address] Jan, [facility] [address] [address] Jan, First trimester Z34.91 [place] [address] [address] 16 Jan, 2019 Second trimester Z34.92 and In [facility] atopic dermatitis L20.84 [place] [address] [address] Dec, First trimester Z34.91 [place] [address] [address] Dec, Second trimester Z34.92 and Fa kim history of neural tube defect Z82.0 [place] [address] [address] 18 Dec, 2018 [facility] [address] [address] Dec, Second trimester Z34.92 ; Fami ly history of neural tube defect Z82.0 ; History of asthma Z87.09 and Wheezing R06.2 [place] [address] [place] [id number] [place] [address] Dec, [facility] [address] [facility] [address] Dec, [facility] [address] [place] [id number] [place] [address] Nov, care, subsequent in f irst trimester Z34.81 [place] [id number] [place] [address] Nov, First trimester Z34.91 ; 10 we eks gestation of Z3A.10 and Nausea and vomiting during O21.9 [place] [address] [place] [address] 14 Nov, 2018 care, subsequent in f irst trimester Z34.81 [facility] IN [facility] [address] [place] [id number] [place] [address] 05 Nov, 2018 Vomiting O21.9 [place] [address] [address] 26 Oct, 2018 care, subsequent in f irst trimester Z34.81 and 6 weeks gestation of Z3A.01 [place] [address] [address] 20 Oct, 2018 [facility] IN [place] [address] [place] [address] 06 Oct, 2018 Heat rash L74.0 [place] [address] [address] Aug, UTI symptoms R39.9 [place] [address] [address] Aug, [place] [address] [address] Aug, UTI symptoms R39.9 [place] [address] [address] 10 Aug, 2018 Hematuria, unspecified type R31.9 [facility] [place] [address] [place] [id number] [place] [address] Jul, Sore throat J02.9 ; UTI symp toms R39.9 and Hematuria, unspecified type R31.9 [place] [address] [address] June, Irritable bowel syndrome with diarrhea K 58.0 and Major depressive disorder, single episode, mild F32.0 [place] [address] [address] June, ADHD (attention deficit hyperactivity di sorder), combined type F90.2 ; Anxiety disorder, unspecified type F41.9 and Unspecified mood [affective] disorder F39 [facility] [address] [address] May, ADHD (attention deficit hyperactivity di sorder), combined type F90.2 ; Anxiety disorder, unspecified type F41.9 ; Unspecified mood [affective] disorder F39 and 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 [facility] [address] [address] May, Slow transit constipation K59.01 [facility] [address] [address] May, ADHD (attention deficit hyperactivity di sorder), combined type F90.2 [facility] [address] [address] May, [facility] [address] [address] May, Abdominal pain R10.9 [facility] [address] [address] Apr, [facility] [address] [address] Apr, [facility] [address] [address] Apr, ADHD (attention deficit hyperactivity di sorder), combined type F90.2 [facility] [address] [address] Apr, Abdominal pain R10.9 [facility] [address] [address] Apr, [facility] [address] [address] Mar, [facility] [address] [address] Mar, ADHD (attention deficit hyperactivity di sorder), combined type F90.2 ; Anxiety disorder, unspecified type F41.9 and Unspecified mood [affective] disorder F39 [facility] [address] [address] Mar, Viral gastroenteritis A08.4 and Slow tra nsit constipation K59.01 [facility] [address] [facility] [id number] [place] [address] Mar, Viral gastroenteritis A08.4 [place] [address] [address] Mar, ADHD (attention deficit hyperactivity di sorder), combined type F90.2 [place] [address] [address] Feb, Slow transit constipation K59.01 ; [facility] N92.6 and Nausea R11.0 [place] [address] [address] Feb, ADHD (attention deficit hyperactivity di sorder), combined type F90.2 [facility] IN [facility] [address] [place] [id number] [place] [address] Jan, Nausea R11.0 and Viral upper respiratory tract infection J06.9 [place] [address] [address] Jan, [place] [address] [address] Jan, ADHD (attention deficit hyperactivity di sorder), combined type F90.2 ; Anxiety disorder, unspecified type F41.9 and Unspecified mood [affective] disorder F39 [place] [address] [address] Jan, Well woman exam with routine gynecologic al exam Z01.419 ; Routine screening for STI (sexually transmitted infection) Z11.3 and Vaginal jose B37.3 [place] [address] [address] Dec, [place] [address] [place] [address] Dec, [facility] [address] [address] Dec, ADHD (attention deficit hyperactivity di sorder), combined type F90.2 ; Anxiety disorder, unspecified type F41.9 and Unspecified mood [affective] disorder F39 [facility] [address] [address] Dec, Unspecified mood [affective] disorder F3 9 ; Anxiety disorder, unspecified type F41.9 and ADHD (attention deficit hyperactivity disorder), combined type F90.2 [facility] [address] [place] [id number] [place] [address] Nov, Other specified bacterial ag ents as the cause of diseases classified elsewhere B96.89 and Otitis media, unspecified, bilateral H66.93 [facility] IN [facility] [address] [place] [id number] [place] [address] Nov, Sore throat J02.9 and Acute nasopharyngitis J00 [facility] [address] [place] [id number] [place] [address] Nov, ADHD (attention deficit hyperactivity di sorder), combined type F90.2 ; Anxiety disorder, unspecified type F41.9 and Unspecified mood [affective] disorder F39 [facility] [address] [address] Oct, ADHD (attention deficit hyperactivity di sorder), combined type F90.2 [facility] [address] [address] Oct, ADHD (attention deficit hyperactivity di sorder), combined type F90.2 ; Anxiety disorder, unspecified type F41.9 and Unspecified mood [affective] disorder F39 [facility] [address] [address] Sep, ADHD (attention deficit hyperactivity di sorder), combined type F90.2 [place] [address] [address] Sep, [facility] [address] [place] [id number] [place] [address] Aug, ADHD (attention deficit hyperactivity di sorder), combined type F90.2 ; Major depressive disorder, single episode, mild F32.0 and Anxiety disorder, unspecified type F41.9 [facility]ALK IN [facility] [address] [facility] [id number] [address] [place] [address] Aug, Sore throat J02.9 ; Other sp ecified bacterial agents as the cause of diseases classified elsewhere B96.89 and Acute tonsillitis due to other specified organisms J03.80 [place] [address] [place] [id number] [place] [address] Aug, ADHD (attention deficit hyperactivity di sorder), combined type F90.2 [place] [address] [address] Jul, ADHD (attention deficit hyperactivity di sorder), combined type F90.2 [facility] [address] [place] [id number] [place] [address] June, ADHD (attention deficit hyperactivity di sorder), combined type F90.2 ; Major depressive disorder, single episode, mild F32.0 and Anxiety disorder, unspecified type F41.9 [place] [address] [place] [id number] [place] [address] June, [facility] [address] [address] June, ADHD (attention deficit hyperactivity di sorder), combined type F90.2 [facility] [address] [place] [id number] [place] [address] May, [place] [address] [address] May, ADHD (attention deficit hyperactivity di sorder), combined type F90.2 ; Major depressive disorder, single episode, mild F32.0 and Anxiety disorder, unspecified type F41.9 [place] [address] [address] May, Anxiety disorder, unspecified type F41.9 [place] [address] [address] Apr, [place] [address] [address] Apr, Anxiety disorder, unspecified type F41.9 [place] [address] [address] Apr, Anxiety disorder, unspecified type F41.9 ; Major depressive disorder, single episode, mild F32.0 and ADHD (attention deficit hyperactivity disorder), combined type F90.2 [place] [address] [address] Apr, [place] [address] [address] Apr, ADHD (attention deficit hyperactivity di sorder), combined type F90.2 ; Anxiety state F41.1 ; Depressive disorder, not elsewhere classified F32.9 ; Major depressive disorder, single episode, mild F32.0 and Anxiety disorder, unspecified type F41.9 [place] [address] [address] Mar, ADHD (attention deficit hyperactivity di sorder), combined type F90.2 [place] [address] [address] Mar, Nausea R11.0 [place] [address] [address] 13 Mar, 2017 Screening for STD sexually transmitted d isease Z11.3 ; Vaginal candidiasis B37.3 and Irritable bowel syndrome with diarrhea K58.0 [place] [address] [address] 04 Mar, 2017 [place] [address] [address] 31 Home, 2018 ADHD (attention deficit hyperactivity di sorder), combined type F90.2 [facility] [address] [address] Feb, Depressive disorder, not elsewhere class ified F32.9 ; Anxiety state F41.1 and ADHD (attention deficit hyperactivity disorder), combined type F90.2 [facility] [address] [address] Feb, Depressive disorder, not elsewhere class ified F32.9 ; Anxiety state F41.1 and ADHD (attention deficit hyperactivity disorder), combined type F90.2 [facility] [address] [address] Feb, ADHD (attention deficit hyperactivity di sorder), combined type F90.2 [facility] [address] [facility] [id number] [address] [place] [address] Jan, Other viral agents as the ca use of diseases classified elsewhere B97.89 and Acute upper respiratory infection, unspecified J06.9 [place] [address] [address] Jan, ADHD (attention deficit hyperactivity di sorder), combined type F90.2 ; Major depressive disorder, single episode, mild F32.0 and Anxiety disorder, unspecified type F41.9 [place] [address] [address] Jan, [facility] [address] [address] Jan, ADHD (attention deficit hyperactivity di sorder), combined type F90.2 ; Major depressive disorder, single episode, mild F32.0 and Anxiety disorder, unspecified type F41.9 [place] [address] [address] Dec, Irritable bowel syndrome with diarrhea K 58.0 and Lower abdominal pain R10.30 [place] [address] [address] 09 Dec, 2016 Hospital discharge follow-up Z09 ; Mesen teric adenitis I88.0 ; IBD (inflammatory bowel disease) K52.9 and Nausea R11.0 [place] [address] [address] Nov, ADHD (attention deficit hyperactivity di sorder), combined type F90.2 ; Major depressive disorder, single episode, mild F32.0 and Anxiety disorder, unspecified type F41.9 [place] [address] [address] Nov, Anxiety state F41.1 ; ADHD (attention de ficit hyperactivity disorder), combined type F90.2 ; Major depressive disorder, single episode, mild F32.0 and Anxiety disorder, unspecified type F41.9 [place] [address] [address] Oct, Anxiety state F41.1 ; ADHD (attention de ficit hyperactivity disorder), combined type F90.2 ; Major depressive disorder, single episode, mild F32.0 and Anxiety disorder, unspecified type F41.9 [place] [address] [address] Oct, ADHD (attention deficit hyperactivity di sorder), combined type F90.2 ; Major depressive disorder, single episode, mild F32.0 and Anxiety disorder, unspecified type F41.9 [place] [address] [address] Oct, Major depressive disorder, single episod e, mild F32.0 ; Anxiety state F41.1 ; ADHD (attention deficit hyperactivity disorder), combined type F90.2 and Depressive disorder, not elsewhere classified F32.9 [facility] [address] [place] [id number] [address] [place] [address] 16 Oct, 2016 [facility] [address] [place] [id number] [address] [place] [address] 12 Oct, 2016 Cellulitis L03.90 and Planta r wart of right foot B07.[address] [address] Aug, ADHD (attention deficit hyperactivity di sorder), combined type F90.2 ; Major depressive disorder, single episode, mild F32.0 and Anxiety disorder, unspecified type F41.9 [facility] [address] [address] Aug, [place] [address] [address] Jul, ADHD (attention deficit hyperactivity di sorder), combined type F90.2 [place] [address] [address] Jul, Mesenteric adenitis I88.0 [place] [address] [address] June, [facility] [address] [place] [id number] [place] [address] June, Lower abdominal pain R10.30 [place] [address] [address] June, [place] [address] [address] June, ADHD (attention deficit hyperactivity di sorder), combined type F90.2 and Major depressive disorder, single episode, mild F32.0 [place] [address] [address] May, [place] [address] [address] May, ADHD (attention deficit hyperactivity di sorder), combined type F90.2 and Major depressive disorder, single episode, mild F32.0 [facility] [address] [facility] [id number] [address] [place] [address] Apr, Abdominal pain R10.9 and Gas troenteritis and colitis, viral A08.4 [facility] [address] [address] Apr, [facility] [address] [place] [address] Mar, Acute urticaria L50.8 [place] [address] [address] Mar, [place] [address] [address] Feb, [facility] IN [facility] [address] [address] Feb, Gastroenteritis K52.9 [place] [address] [address] Feb, Irritant contact dermatitis due to awais tics L24.3 [place] [address] [address] Jan, [place] [address] [address] Jan, [place] [address] [address] Jan, ADHD (attention deficit hyperactivity di sorder), combined type F90.2 and Major depressive disorder, single episode, mild F32.0 [facility]ALK IN [facility] [address] [place] [id number] [place] [address] Dec, Flexural eczema L20.82 [place] [address] [address] Dec, Encounter for test Z32.00 [place] [address] [address] Dec, [place] [address] [address] Dec, [place] [address] [address] Dec, [facility] [address] [address] Nov, Sore throat J02.9 and Pharyn gitis, unspecified etiology J02.9 [facility] [address] [address] Nov, [facility] [address] [place] [id number] [place] [address] Nov, [facility] [address] [place] [id number] [place] [address] Nov, Generalized abdominal pain R10.84 and Sl ow transit constipation K59.01 [facility] [address] [id number] [place] [id number] Nov, Pharyngitis, unspecified etiology J02.9 and Rhinitis, unspecified type J31.0 [facility] [address] [address] Oct, Depressive disorder, not elsewhere class ified F32.9 and ADHD (attention deficit hyperactivity disorder), combined type F90.2 [facility] [address] [address] Oct, [facility] [address] [address] Oct, [facility] [address] [facility] [id number] [address] [place] [address] Oct, Strep throat J02.0 [facility] [address] [address] 16 Oct, 2015 [place] [address] [address] 09 Oct, 2015 Well woman exam with routine gynecologic al exam Z01.419 and Screening for STD sexually transmitted disease Z11.3 [place] [address] [address] Sep, ADHD (attention deficit hyperactivity di sorder), combined type F90.2 ; Anxiety state F41.1 and Depressive disorder, not elsewhere classified F32.9 [facility] [address] [place] [address] Sep, ADHD (attention deficit hyperactivity di sorder), combined type F90.2 and Depressive disorder, not elsewhere classified F32.9 [facility] [address] [place] [id number] [place] [address] Aug, [facility] [address] [place] [id number] [place] [address] Aug, ADHD (attention deficit hyperactivity di sorder), combined type F90.2 and Depressive disorder, not elsewhere classified F32.9 [facility] [address] [place] [id number] [place] [address] Aug, ADHD (attention deficit hyperactivity di sorder), combined type F90.2 ; Anxiety state F41.1 and Depressive disorder, not elsewhere classified F32.9 [facility] [address] [place] [id number] [place] [address] Aug, [facility] [address] [place] [id number] [place] [address] Aug, [facility] [address] [address] Jul, ADHD (attention deficit hyperactivity di sorder), combined type F90.2 ; Depressive disorder, not elsewhere classified F32.9 and Anxiety state F41.1 [facility] [address] [place] [id number] [place] [address] Jul, [facility] [address] [place] [id number] [place] [address] Jul, ADHD (attention deficit hyperactivity di sorder), combined type F90.2 ; Anxiety state F41.1 and Depressive disorder, not elsewhere classified F32.9 [facility] [address] [place] [id number] [place] [address] June, [facility] [address] [id number] [place] [id number] June, Constipation K59.00 [facility] [address] [place] [id number] [place] [address] 28 May, 2016 Constipation K59.00 [facility] [address] [facility] [id number] [address] [place] [address] 20 May, 2016 Irritable bowel syndrome wit h diarrhea K58.0 [facility] [address] [place] [id number] [place] [address] 15 May, 2015 [facility] [address] [place] [id number] [place] [address] 15 May, 2015 [facility] [address] [place] [id number] [place] [address] 14 May, 2014 [facility] [address] [place] [id number] [place] [address] 13 May, 2014 [facility] [address] [place] [address] [id number] [place] [address] 29 Jan, 2014 [facility] [address] [place] [address] [id number] [place] [address] 29 Jan, 2014 [facility] [address] [place] [id number] [place] [address] 08 Jan, 2014 [facility] [address] [place] [id number] [place] [address] 08 Jan, 2014 [facility] [address] [place] [address] [id number] [place] [address] 05 Jan, 2014 [facility] [id number] [place] [address] 05 Jan, 2014 [facility] [id number] [place] [address] Nov, [facility] [id number] [place] [address] Nov, [facility] [id number] [place] [address] 18 Oct, 2013 [facility] [id number] [place] [address] 18 Oct, 2013 [facility] [id number] [place] [address] Sep, [facility] [address] [facility] [id number] [place] [address] Sep, [facility] [address] [facility] [id number] [facility] [address] Aug, [facility] [address] [id number] [place] [address] Aug, [facility] [address] [facility] [id number] [place] [address] Aug, [facility] [place] [facility] [address] [facility] [id number] [place] [address] Aug, [facility] [place] [facility] [address] [id number] [place] [address] Aug, [facility] [place] [facility] [address] [id number] [place] [address] Aug, [facility] [place] [facility] [address] [id number] [place] [address] Aug, [facility] [place] [facility] [address] [facility] [id number] [place] [address] Aug, [facility] [place] [facility] [address] [id number] [place] [address] Jul, [facility] [place] [facility] [address] [id number] [place] [address] Jul, [facility] [place] [facility] [address] [id number] [place] [address] Jul, [facility] [place] [facility] [address] [facility] [id number] [place] [address] Jul, [facility] [place] [facility] [address] [id number] [place] [address] Jul, [facility] [place] [facility] [address] [id number] [place] [address] Jul, [facility] [place] [facility] [address] [id number] [place] [address] Jul, [facility] [place] [facility] [address] [facility] [id number] [place] [address] Jul, [facility] [place] [facility] [address] [id number] [place] [address] Jul, [facility] [place] [facility] [address] [id number] [place] [address] June, [facility] [place] [facility] [address] [id number] [place] [address] June, [facility] [place] [facility] [address] [id number] [place] [address] May, [facility] [place] [facility] [address] [id number] [place] [address] May, [facility] [place] [facility] [address] [id number] [place] [address] May, [facility] [place] [facility] [address] [id number] [place] [address] May, [facility] [place] [facility] [address] [id number] [place] [address] May, [facility] [place] [facility] [address] [id number] [place] [address] May, [facility] [place] [facility] [address] [id number] [place] [address] May, [facility] [place] [facility] [address] [id number] [place] [address] May, [facility] [place] [facility] [address] [id number] [place] [address] May, [facility] [place] [facility] [address] [id number] [place] [address] May, [facility] [place] [facility] [address] [id number] [place] [address] May, [facility] [place] [facility] [address] [id number] [place] [address] May, [facility] [place] [facility] [address] [id number] [place] [address] Apr, [facility] [place] [facility] [address] [id number] [place] [address] Apr, [facility] [place] [facility] [address] [id number] [place] [address] Apr, [facility] [place] [facility] [address] [id number] [place] [address] Apr, [facility] [place] [facility] [address] [id number] [place] [address] Mar, [facility] [place] [facility] [address] [id number] [place] [address] Mar, [facility] [place] [facility] [address] [id number] [place] [address] Mar, [facility] [place] [facility] [address] [id number] [place] [address] Mar, [facility] [place] [facility] [address] [id number] [place] [address] Mar, [facility] [place] [facility] [address] [id number] [place] [address] Mar, [facility] [place] [facility] [address] [id number] [place] [address] Mar, [facility] [place] [facility] [address] [id number] [place] [address] Mar, [facility] [place] [facility] [address] [id number] [place] [address] Mar, [facility] [place] [facility] [address] [id number] [place] [address] Mar, [facility] [place] [facility] [address] [id number] [place] [address] 14 Mar, 2013 [facility] [place] [facility] [address] [id number] [place] [address] 14 Mar, 2013 [facility] [place] [facility] [address] [id number] [place] [address] 13 Mar, 2013 [facility] [place] [facility] [address] [id number] [place] [address] Mar, [facility] [place] [facility] [address] [facility] [id number] [place] [address] Mar, [facility] [place] [facility] [address] [id number] [place] [address] Mar, [facility] [place] [facility] [address] [id number] [place] [address] Mar, [facility] [place] [facility] [address] [id number] [place] [address] Mar, [facility] [place] [facility] [address] [id number] [place] [address] Mar, [facility] [place] [facility] [address] [id number] [place] [address] Mar, [facility] [place] [facility] [address] [id number] [place] [address] Feb, [facility] [place] [facility] [address] [id number] [place] [address] Feb, [facility] [place] [facility] [address] [id number] [place] [address] Feb, [facility] [place] [facility] [address] [id number] [place] [address] Feb, [facility] [place] [facility] [address] [id number] [place] [address] Feb, [facility] [place] [facility] [address] [id number] [place] [address] Feb, [facility] [place] [facility] [address] [id number] [place] [address] Feb, [facility] [place] [facility] [address] [id number] [place] [address] Feb, [facility] [place] [facility] [address] [id number] [place] [address] Feb, [facility] [place] [facility] [address] [id number] [place] [address] Feb, [facility] [place] [facility] [address] [facility] [id number] [place] [address] Feb, [facility] [place] [facility] [address] [id number] [place] [address] Feb, [facility] [place] [facility] [address] [id number] [place] [address] Feb, [facility] [place] [facility] [address] [id number] [place] [address] Feb, [facility] [place] [facility] [address] [facility] [id number] [place] [address] Feb, [facility] [place] [facility] [address] [id number] [place] [address] Feb, [facility] [place] [facility] [address] [id number] [place] [address] Feb, [facility] [place] [facility] [address] [id number] [place] [address] Feb, [facility] [place] [facility] [address] [id number] [place] [address] Feb, [facility] [place] [facility] [address] [id number] [place] [address] Feb, [facility] [place] [facility] [address] [id number] [place] [address] Feb, [facility] [place] [facility] [address] [id number] [place] [address] Feb, [facility] [place] [facility] [address] [id number] [place] [address] Feb, [facility] [place] [facility] [address] [id number] [place] [address] Jan, [facility] [place] [facility] [address] [id number] [place] [address] Jan, [facility] [place] [facility] [address] [id number] [place] [address] Jan, [facility] [place] [facility] [address] [id number] [place] [address] 18 Jan, 2013 [facility] [place] [facility] [address] [id number] [place] [address] 18 Jan, 2013 [facility] [place] [facility] [address] [id number] [place] [address] 18 Jan, 2013 [facility] [place] [facility] [address] [id number] [place] [address] 18 Jan, 2013 [facility] [place] [facility] [address] [id number] [place] [address] Jan, [facility] [place] [facility] [address] [id number] [place] [address] Jan, [facility] [place] [facility] [address] [id number] [place] [address] Jan, [facility] [place] [facility] [address] [id number] [place] [address] Jan, [facility] [place] [facility] [id number] [place] [address] Jan, [facility] [place] [facility] [address] [id number] [place] [address] Jan, [facility] [place] [facility] [address] [id number] [place] [address] Dec, [facility] [place] [facility] [address] [id number] [place] [address] Dec, [facility] [place] [facility] [address] [id number] [place] [address] Dec, [facility] [place] [facility] [address] [id number] [place] [address] Dec, [facility] [place] [facility] [address] [id number] [place] [address] 15 Dec, 2012 [facility] [place] [facility] [address] [id number] [place] [address] 15 Dec, 2012 [facility] [place] [facility] [address] [id number] [place] [address] Nov, [facility] [address] [id number] [place] [address] Nov, [facility] [address] [id number] [place] [address] Nov, [facility] [address] [id number] [place] [address] Nov, [facility] [address] [id number] [place] [address] Nov, [facility] [id number] [place] [address] Nov, [facility] [id number] [place] [address] 28 Oct, 2012 [facility] [id number] [place] [address] 27 Oct, 2012 [facility] [id number] [place] [address] 26 Oct, 2012 [facility] [id number] [place] [address] 25 Oct, 2012 [facility] [id number] [place] [address] 25 Oct, 2012 [facility] [id number] [place] [address] 18 Oct, 2012 [facility] [address] [id number] [place] [address] 13 Oct, 2012 IMMUNIZATIONS No Known Immunizations [...]
--- OUTSIDE RECORDS SUMMARY | 2019-06-25 21:21 | XMS REPORT ---
Author Author Sheyla CHIN Organization [facility] Address [address] [place] [address] Care Team Providers Care Supervisor Word Processing Name Role Phone LEONARD CHIN Unavailable PROBLEMS Type Condition ICD9-CM Code MDO51-AL Code Onset Dates Condition S tatus SNOMED Code Problem ADHD (attention deficit hyperactivity disorder), combi amparo type F90.2 Active 45332147 Problem Unspecified mood [affective] disorder F39 Active 71452990 Problem Intrinsic atopic dermatitis L20.84 Ac tive 24898682 Problem Slow transit constipation K59.01 Acti ve 61479790 Problem Anxiety disorder, unspecified type F41.9 Active 530859587 Problem Major depressive disorder, single episode, mild F3 2.0 Active 85212195 Problem Irritable bowel syndrome with diarrhea K58.0 Active 684781369 ALLERGIES No Information ENCOUNTERS Encounter Location Date Diagnosis [place] [address] [address] May, [place] [address] [address] May, [place] [address] [address] Apr, [place] [address] [address] Apr, [place] [address] [address] Apr, Diet controlled gestational diabetes jessenia litus (GDM) in third trimester O24.410 [place] [address] [address] Apr, 30 weeks gestation of Z3A.30 ; Diet controlled gestational diabetes mellitus (GDM) in third trimester O24.410 and Encounter for immunization Z23 [place] [address] [address] 05 Apr, 2019 [place] [address] [address] 04 Apr, 2019 Gestational diabetes O24.419 [place] [address] [address] 03 Apr, 2019 [place] [address] [address] 02 Apr, 2019 Abnormal glucose tolerance in O99.810 [place] [address] [address] Mar, Abnormal glucose tolerance in O99.810 [place] [address] [address] 25 Mar, 2019 Second trimester Z33.1 ; Nause a and vomiting during O21.9 and 27 weeks gestation of Z3A.27 [place] [address] [address] Mar, [facility] [address] [place], [place] [id number] [address] [place] [address] Mar, Non-intractable vomiting wit h nausea, unspecified vomiting type R11.2 [place] [address] [address] Feb, [place] [address] [address] Feb, Second trimester Z33.1 [place] [address] [address] 13 Feb, 2019 Second trimester Z34.92 ; 21 w eeks gestation of Z3A.21 and Exposure to STD Z20.2 [place] [address] [address] 07 Feb, 2019 Second trimester Z33.1 [facility] [address] [place] [id number] [place] [address] Feb, Non-intractable vomiting wit h nausea, unspecified vomiting type R11.2 [place] [address] [address] Jan, [place] [address] [address] Jan, [place] [address] [address] Jan, First trimester Z34.91 [place] [address] [address] Jan, Second trimester Z34.92 and In trinsic atopic dermatitis L20.[address] [address] Dec, First trimester Z34.[address] [address] Dec, Second trimester Z34.92 and Karen alvarez history of neural tube defect Z82.0 [place] [address] [address] Dec, [address] [address] Dec, Second trimester Z34.92 ; Fami ly history of neural tube defect Z82.0 ; History of asthma Z87.09 and Wheezing R06.2 [place] [id number] [place] [address] Dec, [facility] [address] [facility] [place] [address] Dec, [address] [address] Nov, care, subsequent in f irst trimester Z34.81 [place] [address] [address] Nov, First trimester Z34.91 ; 10 we eks gestation of Z3A.10 and Nausea and vomiting during O21.9 [place] [address] [id number] [place] [address] 14 Nov, 2018 care, subsequent in f irst trimester Z34.81 [facility] [address] [facility] [id number] [address] [place] [address] 05 Nov, 2018 Vomiting O21.9 [place] [address] [address] 26 Oct, 2018 care, subsequent in f irst trimester Z34.81 and 6 weeks gestation of Z3A.01 [place] [address] [address] 20 Oct, 2018 [facility] [place] [address] [address] [facility] [id number] [address] [place] [address] 06 Oct, 2018 Heat rash L74.0 [place] [address] [address] Aug, UTI symptoms R39.9 [place] [address] [address] Aug, [place] [address] [address] Aug, UTI symptoms R39.9 [place] [address] [address] Aug, Hematuria, unspecified type R31.9 [facility] [place] [address] [address] [facility] [id number] [address] [place] [address] Jul, Sore throat J02.9 ; UTI symp toms R39.9 and Hematuria, unspecified type R31.9 [place] [address] [address] June, Irritable bowel syndrome with diarrhea K 58.0 and Major depressive disorder, single episode, mild F32.0 [place] [address] [address] June, ADHD (attention deficit hyperactivity di sorder), combined type F90.2 ; Anxiety disorder, unspecified type F41.9 and Unspecified mood [affective] disorder F39 [facility] [address] [address] May, ADHD (attention deficit hyperactivity di sorder), combined type F90.2 ; Anxiety disorder, unspecified type F41.9 ; Unspecified mood [affective] disorder F39 and 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 [facility] [address] [address] May, Slow transit constipation K59.01 [facility] [address] [address] May, ADHD (attention deficit hyperactivity di sorder), combined type F90.2 [facility] [address] [address] May, [facility] [address] [address] May, Abdominal pain R10.9 [facility] [address] [address] Apr, [facility] [address] [address] Apr, [facility] [address] [address] Apr, ADHD (attention deficit hyperactivity di sorder), combined type F90.2 [facility] [address] [address] Apr, Abdominal pain R10.9 [facility] [address] [address] Apr, [facility] [address] [address] Mar, [facility] [address] [address] Mar, ADHD (attention deficit hyperactivity di sorder), combined type F90.2 ; Anxiety disorder, unspecified type F41.9 and Unspecified mood [affective] disorder F39 [place] [address] [address] Mar, Viral gastroenteritis A08.4 and Slow tra nsit constipation K59.01 [facility] [address] [place] [address] Mar, Viral gastroenteritis A08.4 [place] [address] [address] Mar, ADHD (attention deficit hyperactivity di sorder), combined type F90.2 [place] [address] [address] Feb, Slow transit constipation K59.01 ; Misse d period N92.6 and Nausea R11.0 [place] [address] [address] Feb, ADHD (attention deficit hyperactivity di sorder), combined type F90.2 [facility] [place] [address] [address] [place] [id number] [place] [address] Jan, Nausea R11.0 and Viral upper respiratory tract infection J06.9 [place] [address] [address] Jan, [place] [address] [address] Jan, ADHD (attention deficit hyperactivity di sorder), combined type F90.2 ; Anxiety disorder, unspecified type F41.9 and Unspecified mood [affective] disorder F39 [place] [address] [address] Jan, Well woman exam with routine gynecologic al exam Z01.419 ; Routine screening for STI (sexually transmitted infection) Z11.3 and Vaginal jose B37.3 [place] [address] [address] Dec, [place] [address] [address] Dec, [place] [address] [address] Dec, ADHD (attention deficit hyperactivity di sorder), combined type F90.2 ; Anxiety disorder, unspecified type F41.9 and Unspecified mood [affective] disorder F39 [place] [address] [address] Dec, Unspecified mood [affective] disorder F3 9 ; Anxiety disorder, unspecified type F41.9 and ADHD (attention deficit hyperactivity disorder), combined type F90.2 [facility] [address] [place] [id number] [place] [address] Nov, Other specified bacterial ag ents as the cause of diseases classified elsewhere B96.89 and Otitis media, unspecified, bilateral H66.93 [facility] [address] [place] [id number] [place] [address] Nov, Sore throat J02.9 and Acute nasopharyngitis J00 [place] [address] [place] [id number] [place] [address] Nov, ADHD (attention deficit hyperactivity di sorder), combined type F90.2 ; Anxiety disorder, unspecified type F41.9 and Unspecified mood [affective] disorder F39 [place] [address] [place] [id number] [place] [address] Oct, ADHD (attention deficit hyperactivity di sorder), combined type F90.2 [place] [address] [address] Oct, ADHD (attention deficit hyperactivity di sorder), combined type F90.2 ; Anxiety disorder, unspecified type F41.9 and Unspecified mood [affective] disorder F39 [place] [address] [address] Sep, ADHD (attention deficit hyperactivity di sorder), combined type F90.2 [facility] [address] [place] [id number] [place] [address] Sep, [facility] [address] [address] Aug, ADHD (attention deficit hyperactivity di sorder), combined type F90.2 ; Major depressive disorder, single episode, mild F32.0 and Anxiety disorder, unspecified type F41.9 [facility] [address] [facility] [id number] [address] [place] [address] Aug, Sore throat J02.9 ; Other sp ecified bacterial agents as the cause of diseases classified elsewhere B96.89 and Acute tonsillitis due to other specified organisms J03.80 [facility] [address] [place] [id number] [place] [address] Aug, ADHD (attention deficit hyperactivity di sorder), combined type F90.2 [place] [address] [address] Jul, ADHD (attention deficit hyperactivity di sorder), combined type F90.2 [facility] [address] [address] June, ADHD (attention deficit hyperactivity di sorder), combined type F90.2 ; Major depressive disorder, single episode, mild F32.0 and Anxiety disorder, unspecified type F41.9 [facility] [address] [address] June, [facility] [address] [address] June, ADHD (attention deficit hyperactivity di sorder), combined type F90.2 [facility] [address] [address] May, [facility] [address] [address] May, ADHD (attention deficit hyperactivity di sorder), combined type F90.2 ; Major depressive disorder, single episode, mild F32.0 and Anxiety disorder, unspecified type F41.9 [place] [address] [address] May, Anxiety disorder, unspecified type F41.9 [facility] [address] [address] Apr, [place] [address] [address] Apr, Anxiety disorder, unspecified type F41.9 [place] [address] [address] Apr, Anxiety disorder, unspecified type F41.9 ; Major depressive disorder, single episode, mild F32.0 and ADHD (attention deficit hyperactivity disorder), combined type F90.2 [place] [address] [address] Apr, [place] [address] [address] Apr, ADHD (attention deficit hyperactivity di sorder), combined type F90.2 ; Anxiety state F41.1 ; Depressive disorder, not elsewhere classified F32.9 ; Major depressive disorder, single episode, mild F32.0 and Anxiety disorder, unspecified type F41.9 [place] [address] [address] Mar, ADHD (attention deficit hyperactivity di sorder), combined type F90.2 [place] [address] [address] Mar, Nausea R11.0 [place] [address] [address] Mar, Screening for STD sexually transmitted d isease Z11.3 ; Vaginal candidiasis B37.3 and Irritable bowel syndrome with diarrhea K58.0 [place] [address] [address] 04 Mar, 2017 [place] [address] [place] [id number] [place] [address] Feb, ADHD (attention deficit hyperactivity di sorder), combined type F90.2 [facility] [address] [place] [id number] [place] [address] Feb, Depressive disorder, not elsewhere class ified F32.9 ; Anxiety state F41.1 and ADHD (attention deficit hyperactivity disorder), combined type F90.2 [place] [address] [address] Feb, Depressive disorder, not elsewhere class ified F32.9 ; Anxiety state F41.1 and ADHD (attention deficit hyperactivity disorder), combined type F90.2 [place] [address] [address] Feb, ADHD (attention deficit hyperactivity di sorder), combined type F90.2 [facility] [address] [facility] [id number] [address] [place] [address] Jan, Other viral agents as the ca use of diseases classified elsewhere B97.89 and Acute upper respiratory infection, unspecified J06.9 [place] [address] [address] Jan, ADHD (attention deficit hyperactivity di sorder), combined type F90.2 ; Major depressive disorder, single episode, mild F32.0 and Anxiety disorder, unspecified type F41.9 [place] [address] [place] [address] [place] [address] Jan, [place] [address] [address] Jan, ADHD (attention deficit hyperactivity di sorder), combined type F90.2 ; Major depressive disorder, single episode, mild F32.0 and Anxiety disorder, unspecified type F41.9 [place] [address] [place] [id number] [place] [address] Dec, Irritable bowel syndrome with diarrhea K 58.0 and Lower abdominal pain R10.30 [place] [address] [address] Dec, Hospital discharge follow-up Z09 ; Mesen teric adenitis I88.0 ; IBD (inflammatory bowel disease) K52.9 and Nausea R11.0 [place] [address] [address] Nov, ADHD (attention deficit hyperactivity di sorder), combined type F90.2 ; Major depressive disorder, single episode, mild F32.0 and Anxiety disorder, unspecified type F41.9 [place] [address] [address] Nov, Anxiety state F41.1 ; ADHD (attention de ficit hyperactivity disorder), combined type F90.2 ; Major depressive disorder, single episode, mild F32.0 and Anxiety disorder, unspecified type F41.[address] [address] Oct, Anxiety state F41.1 ; ADHD (attention de ficit hyperactivity disorder), combined type F90.2 ; Major depressive disorder, single episode, mild F32.0 and Anxiety disorder, unspecified type F41.9 [place] [address] [address] Oct, ADHD (attention deficit hyperactivity di sorder), combined type F90.2 ; Major depressive disorder, single episode, mild F32.0 and Anxiety disorder, unspecified type F41.[address] [address] Oct, Major depressive disorder, single episod e, mild F32.0 ; Anxiety state F41.1 ; ADHD (attention deficit hyperactivity disorder), combined type F90.2 and Depressive disorder, not elsewhere classified F32.9 [facility] [place] [id number] [place] [address] 16 Oct, 2016 [facility] [address] [place] [id number] [place] [address] Oct, Cellulitis L03.90 and Planta r wart of right foot B07.0 [place] [address] [address] Aug, ADHD (attention deficit hyperactivity di sorder), combined type F90.2 ; Major depressive disorder, single episode, mild F32.0 and Anxiety disorder, unspecified type F41.9 [place] [address] [address] Aug, [place] [address] [address] Jul, ADHD (attention deficit hyperactivity di sorder), combined type F90.2 [place] [address] [address] Jul, Mesenteric adenitis I88.0 [place] [address] [address] June, [facility] [address] [place] [id number] [place] [address] June, Lower abdominal pain R10.30 [place] [address] [address] June, [place] [address] [address] June, ADHD (attention deficit hyperactivity di sorder), combined type F90.2 and Major depressive disorder, single episode, mild F32.0 [place] [address] [address] May, [place] [address] [address] May, ADHD (attention deficit hyperactivity di sorder), combined type F90.2 and Major depressive disorder, single episode, mild F32.0 [facility] [address] [facility] [id number] [address] [place] [address] Apr, Abdominal pain R10.9 and Gas troenteritis and colitis, viral A08.4 [place] [address] [address] Apr, [facility] [address] [place] [address] Mar, Acute urticaria L50.8 [place] [address] [address] Mar, [place] [address] [address] Feb, [facility] [address] [place] [id number] [place] [address] Feb, Gastroenteritis K52.9 [place] [address] [address] Feb, Irritant contact dermatitis due to awais tics L24.3 [place] [address] [address] Jan, [place] [address] [address] Jan, [place] [address] [address] Jan, ADHD (attention deficit hyperactivity di sorder), combined type F90.2 and Major depressive disorder, single episode, mild F32.0 [facility] [place] [id number] [place] [address] Dec, Flexural eczema L20.82 [place] [address] [address] Dec, Encounter for test Z32.00 [place] [address] [address] Dec, [place] [address] [address] Dec, [place] [address] [address] Dec, [facility] [address] [facility] [id number] [address] [address] Nov, Sore throat J02.9 and Pharyn gitis, unspecified etiology J02.9 [facility] [address] [place] [id number] [place] [address] Nov, [facility] [address] [address] Nov, [facility] [address] [address] Nov, Generalized abdominal pain R10.84 and Sl ow transit constipation K59.01 [facility] [address] [facility] [id number] Nov, Pharyngitis, unspecified etiology J02.9 and Rhinitis, unspecified type J31.0 [place] [address] [address] Oct, Depressive disorder, not elsewhere class ified F32.9 and ADHD (attention deficit hyperactivity disorder), combined type F90.2 [place] [address] [address] Oct, [facility] [address] [address] Oct, [facility] [address] [facility] [id number] [place] [address] Oct, Strep throat J02.0 [facility] [address] [address] Oct, [place] [address] [address] 09 Oct, 2016 Well woman exam with routine gynecologic al exam Z01.419 and Screening for STD sexually transmitted disease Z11.3 [place] [address] [address] Sep, ADHD (attention deficit hyperactivity di sorder), combined type F90.2 ; Anxiety state F41.1 and Depressive disorder, not elsewhere classified F32.9 [facility] [address] [place] [id number] [place] [address] Sep, ADHD (attention deficit hyperactivity di sorder), combined type F90.2 and Depressive disorder, not elsewhere classified F32.9 [facility] [address] [place] [id number] [place] [address] Aug, [facility] [address] [address] Aug, ADHD (attention deficit hyperactivity di sorder), combined type F90.2 and Depressive disorder, not elsewhere classified F32.9 [place] [address] [place] [id number] [place] [address] Aug, ADHD (attention deficit hyperactivity di sorder), combined type F90.2 ; Anxiety state F41.1 and Depressive disorder, not elsewhere classified F32.9 [facility] [address] [address] Aug, [facility] [address] [place] [id number] [place] [address] Aug, [facility] [address] [address] Jul, ADHD (attention deficit hyperactivity di sorder), combined type F90.2 ; Depressive disorder, not elsewhere classified F32.9 and Anxiety state F41.1 [facility] [address] [place] [id number] [place] [address] Jul, [place] [address] [place] [id number] [place] [address] Jul, ADHD (attention deficit hyperactivity di sorder), combined type F90.2 ; Anxiety state F41.1 and Depressive disorder, not elsewhere classified F32.9 [facility] [address] [id number] [place] [address] June, [facility] [address] [id number] [place] [id number] June, Constipation K59.00 [facility] [address] [id number] [place] [address] May, Constipation K59.00 [facility] [address] [facility] [id number] [address] [place] [address] May, Irritable bowel syndrome wit h diarrhea K58.0 [facility] [address] [id number] [place] [address] 15 May, 2015 [facility] [address] [place] [id number] [place] [address] 15 May, 2015 [facility] [address] [place] [id number] [place] [address] 14 May, 2014 [facility] [address] [place] [id number] [place] [address] May, [facility] [address] [place] [id number] [place] [address] Jan, [facility] [address] [place] [id number] [place] [address] Jan, [facility] [address] [place] [id number] [place] [address] Jan, [facility] [address] [place] [id number] [place] [address] Jan, [facility] [address] [place] [id number] [place] [address] Jan, [facility] [address] [place] [id number] [place] [address] Jan, [facility] [address] [place] [id number] [place] [address] Nov, [facility] [address] [place] [id number] [place] [address] Nov, [facility] [address] [place] [id number] [place] [address] Oct, [facility] [address] [address] Oct, [facility] [address] [facility] [id number] [place] [address] Sep, [facility] [address] [facility] [id number] [place] [address] Sep, [facility] [address] [id number] [place] [address] Aug, [facility] [address] [id number] [place] [address] Aug, [facility] [address] [facility] [id number] [place] [address] Aug, [facility] [address] [id number] [place] [address] Aug, [facility] [address] [id number] [place] [address] Aug, [facility] [address] [id number] [place] [address] Aug, [facility] [address] [id number] [place] [address] Aug, [facility] [address] [id number] [place] [address] Aug, [facility] [address] [id number] [place] [address] Jul, [facility] [address] [id number] [place] [address] Jul, [facility] [address] [id number] [place] [address] Jul, [facility] [address] [id number] [place] [address] Jul, [facility] [address] [id number] [place] [address] Jul, [facility] [address] [id number] [place] [address] Jul, [facility] [address] [id number] [facility] [place] [address] Jul, [facility] [address] [id number] [facility] [place] [address] Jul, [facility] [address] [facility] [id number] [place] [address] Jul, [facility] [address] [id number] [place] [address] June, [facility] [address] [facility] [id number] [place] [address] June, [facility] [address] [facility] [id number] [facility] [place] [address] May, [facility] [address] [id number] [place] [address] May, [facility] [address] [id number] [place] [address] May, [facility] [address] [id number] [place] [address] May, [facility] [address] [id number] [facility] [place] [address] May, [facility] [address] [id number] [place] [address] May, [facility] [address] [id number] [place] [address] May, [facility] [address] [id number] [place] [address] May, [facility] [address] [facility] [id number] [place] [address] May, [facility] [address] [id number] [place] [address] May, [facility] [address] [id number] [place] [address] May, [facility] [address] [id number] [place] [address] May, [facility] [address] [id number] [place] [address] Apr, [facility] [address] [id number] [place] [address] Apr, [facility] [address] [id number] [place] [address] Apr, [facility] [address] [id number] [place] [address] Apr, [facility] [address] [id number] [place] [address] Mar, [facility] [address] [id number] [place] [address] Mar, [facility] [address] [id number] [place] [address] Mar, [facility] [address] [id number] [place] [address] Mar, [facility] [address] [id number] [place] [address] Mar, [facility] [address] [id number] [place] [address] Mar, [facility] [address] [id number] [place] [address] Mar, [facility] [address] [id number] [place] [address] Mar, [facility] [address] [id number] [place] [address] Mar, [facility] [address] [id number] [place] [address] Mar, [facility] [address] [id number] [place] [address] Mar, [facility] [address] [id number] [place] [address] Mar, [facility] [address] [id number] [place] [address] Mar, [facility] [address] [facility] [id number] [place] [address] Mar, [facility] [address] [id number] [place] [address] Mar, [facility] [address] [id number] [place] [address] Mar, [facility] [address] [id number] [place] [address] Mar, [facility] [address] [id number] [place] [address] Mar, [facility] [address] [id number] [place] [address] Mar, [facility] [address] [id number] [place] [address] Mar, [facility] [address] [id number] [place] [address] Feb, [facility] [address] [id number] [place] [address] Feb, [facility] [address] [id number] [place] [address] Feb, [facility] [address] [id number] [place] [address] Feb, [facility] [address] [id number] [place] [address] Feb, [facility] [address] [id number] [place] [address] Feb, [facility] [address] [id number] [place] [address] Feb, [facility] [address] [id number] [place] [address] Feb, [facility] [address] [id number] [place] [address] Feb, [facility] [address] [id number] [place] [address] Feb, [facility] [address] [id number] [place] [address] Feb, [facility] [address] [id number] [place] [address] Feb, [facility] [address] [id number] [place] [address] Feb, [facility] [address] [facility] [id number] [place] [address] Feb, [facility] [address] [id number] [place] [address] Feb, [facility] [address] [id number] [place] [address] Feb, [facility] [address] [id number] [place] [address] Feb, [facility] [address] [id number] [place] [address] Feb, [facility] [address] [id number] [place] [address] Feb, [facility] [address] [id number] [place] [address] Feb, [facility] [address] [id number] [place] [address] Feb, [facility] [address] [id number] [place] [address] Feb, [facility] [address] [id number] [place] [address] Feb, [facility] [address] [id number] [place] [address] Jan, [facility] [address] [id number] [place] [address] Jan, [facility] [address] [id number] [place] [address] 19 Jan, 2013 [facility] [address] [id number] [place] [address] 18 Jan, 2013 [facility] [address] [id number] [place] [address] 18 Jan, 2013 [facility] [address] [id number] [place] [address] 18 Jan, 2013 [facility] [address] [id number] [place] [address] 18 Jan, 2013 [facility] [address] [id number] [place] [address] 17 Jan, 2013 [facility] [address] [id number] [place] [address] 17 Jan, 2013 [facility] [address] [id number] [place] [address] 2013 [facility] [address] [id number] [place] [address] 2013 [facility] [address] [id number] [place] [address] 04 Jan, 2013 [facility] [address] [id number] [place] [address] 04 Jan, 2013 [facility] [address] [id number] [place] [address] 20 Dec, 2012 [facility] [address] [id number] [place] [address] 20 Dec, 2012 [facility] [address] [id number] [place] [address] 20 Dec, 2012 [facility] [address] [id number] [place] [address] 20 Dec, 2012 [facility] [address] [id number] [place] [address] 15 Dec, 2012 [facility] [address] [id number] [place] [address] 15 Dec, 2012 [facility] [id number] [place] [address] Nov, [facility] [id number] [place] [address] Nov, [facility] [id number] [place] [address] Nov, [facility] [id number] [place] [address] Nov, [facility] [address] [address] Nov, [facility] [address] [address] Nov, [facility] [address] [address] Oct, [facility] [address] [address] Oct, [facility] [address] [address] Oct, [facility] [address] [address] Oct, [facility] [address] [address] Oct, [facility] [address] [address] 18 Oct, 2012 [facility] [address] [address] Oct, IMMUNIZATIONS Vaccine Route Administration Date Status PRIVATE [...] Hospitalization History Childbirth 2014 Hospitalization History IBS 2015 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
--- OUTSIDE RECORDS SUMMARY | 2019-06-25 21:22 | XMS REPORT ---
Author Author Sheyla SENIOR Organization [facility] Address [address] [place] [address] Care Team Providers Care Circulation Crew Leader Name Role Phone BOUCHRA SENIOR Unavailable PROBLEMS Type Condition ICD9-CM Code [id number] Code Onset Dates Condition S tatus SNOMED Code Problem ADHD (attention deficit hyperactivity disorder), combi amparo type F90.2 Active 57889864 Problem Unspecified mood [affective] disorder F39 Active 09855715 Problem Intrinsic atopic dermatitis L20.84 Ac tive 82402568 Problem Slow transit constipation K59.01 Acti ve 63902533 Problem Anxiety disorder, unspecified type F41.9 Active 335974826 Problem Major depressive disorder, single episode, mild F3 2.0 Active 78944383 Problem Irritable bowel syndrome with diarrhea K58.0 Active 376995316 ALLERGIES No Information ENCOUNTERS Encounter Location Date Diagnosis [place] [address] [address] May, [facility] [address] [address] May, [facility] [address] [address] Apr, [facility] [address] [address] Apr, [facility] [address] [address] Apr, [facility] [address] [address] Apr, Gestational diabetes O24.419 [facility] [address] [address] Apr, [facility] [address] [address] Apr, Abnormal glucose tolerance in O99.810 [facility] [address] [address] Mar, Abnormal glucose tolerance in O99.810 [facility] [address] [address] Mar, Second trimester Z33.1 ; Nause a and vomiting during O21.9 and 27 weeks gestation of Z3A.27 [facility] [address] [address] Mar, [facility] [address] [place] [id number] [address] [place] [address] Mar, Non-intractable vomiting wit h nausea, unspecified vomiting type R11.2 [place] [address] [address] Feb, [facility] [address] [address] Feb, Second trimester Z33.1 [place] [address] [address] 13 Feb, 2019 Second trimester Z34.92 ; 21 w eeks gestation of Z3A.21 and Exposure to STD Z20.2 [place] [address] [address] Feb, Second trimester Z33.1 [facility] [address] [facility] [id number] [address] [place] [address] Feb, Non-intractable vomiting wit h nausea, unspecified vomiting type R11.2 [place] [address] [address] Jan, [place] [address] [address] Jan, [place] [address] [address] Jan, First trimester Z34.91 [facility] [address] [place] [id number] [place] [address] 16 Jan, 2019 Second trimester Z34.92 and In trinsic atopic dermatitis L20.84 [facility] [address] [place] [id number] [place] [address] Dec, First trimester Z34.91 [facility] [address] [place] [id number] [place] [address] Dec, Second trimester Z34.92 and Karen alvarez history of neural tube defect Z82.0 [place] [address] [address] 18 Dec, 2018 [place] [address] [place] [id number] [place] [address] 13 Dec, 2018 Second trimester Z34.92 ; Fami ly history of neural tube defect Z82.0 ; History of asthma Z87.09 and Wheezing R06.2 [facility] [address] [place] [id number] [place] [address] 08 Dec, 2018 [facility] [address] [place] [id number] [address] Dec, [place] [address] [place] [id number] [place] [address] Nov, care, subsequent in f irst trimester Z34.81 [place] [address] [place] [id number] [place] [address] 24 Nov, 2018 First trimester Z34.91 ; 10 we eks gestation of Z3A.10 and Nausea and vomiting during O21.[address] [address] 14 Nov, 2018 care, subsequent in f irst trimester Z34.81 [facility] [address] [facility] [id number] [address] [place] [address] 05 Nov, 2018 Vomiting O21.9 [facility] [address] [place] [id number] [place] [address] Oct, care, subsequent in f irst trimester Z34.81 and 6 weeks gestation of Z3A.01 [place] [address] [id number] [place] [address] Oct, [facility] [address] [facility] [id number] [place] [address] Oct, Heat rash L74.0 [place] [address] [address] Aug, UTI symptoms R39.9 [place] [address] [address] Aug, [place] [address] [address] Aug, UTI symptoms R39.9 [place] [address] [address] Aug, Hematuria, unspecified type R31.9 [facility] [address] [facility] [id number] [place] [address] Jul, Sore throat J02.9 ; UTI symp toms R39.9 and Hematuria, unspecified type R31.9 [place] [address] [place] [id number] [place] [address] June, Irritable bowel syndrome with diarrhea K 58.0 and Major depressive disorder, single episode, mild F32.0 [place] [address] [place] [id number] [place] [address] June, ADHD (attention deficit hyperactivity di sorder), combined type F90.2 ; Anxiety disorder, unspecified type F41.9 and Unspecified mood [affective] disorder F39 [place] [address] [facility] [place] [address] May, ADHD (attention deficit hyperactivity di sorder), combined type F90.2 ; Anxiety disorder, unspecified type F41.9 ; Unspecified mood [affective] disorder F39 and Other half-way (current) 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 Z79.899 [facility] [address] [address] May, Slow transit constipation K59.01 [facility] [address] [address] May, ADHD (attention deficit hyperactivity di sorder), combined type F90.2 [facility] [address] [address] May, [facility] [address] [address] May, Abdominal pain R10.9 [facility] [address] [address] Apr, [facility] [address] [address] Apr, [facility] [address] [address] Apr, ADHD (attention deficit hyperactivity di sorder), combined type F90.2 [facility] [address] [address] Apr, Abdominal pain R10.9 [facility] [address] [address] Apr, [facility] [address] [address] Mar, [facility] [address] [address] Mar, ADHD (attention deficit hyperactivity di sorder), combined type F90.2 ; Anxiety disorder, unspecified type F41.9 and Unspecified mood [affective] disorder F39 [facility] [address] [address] Mar, Viral gastroenteritis A08.4 and Slow tra nsit constipation K59.01 [facility] [address] [facility] [id number] [place] [address] Mar, Viral gastroenteritis A08.4 [facility] [address] [address] Mar, ADHD (attention deficit hyperactivity di sorder), combined type F90.2 [facility] [address] [address] Feb, Slow transit constipation K59.01 ; Misse d period N92.6 and Nausea R11.0 [facility] [address] [address] Feb, ADHD (attention deficit hyperactivity di sorder), combined type F90.2 [facility] [address] [place] [id number] [address] [place] [address] Jan, Nausea R11.0 and Viral upper respiratory tract infection J06.9 [place] [address] [address] Jan, [place] [address] [address] Jan, ADHD (attention deficit hyperactivity di sorder), combined type F90.2 ; Anxiety disorder, unspecified type F41.9 and Unspecified mood [affective] disorder F39 [place] [address] [address] Jan, Well woman exam with routine gynecologic al exam Z01.419 ; Routine screening for STI (sexually transmitted infection) Z11.3 and Vaginal jose B37.3 [place] [address] [address] Dec, [place] [address] [address] Dec, [place] [address] [address] Dec, ADHD (attention deficit hyperactivity di sorder), combined type F90.2 ; Anxiety disorder, unspecified type F41.9 and Unspecified mood [affective] disorder F39 [facility] [address] [place] [id number] [place] [address] Dec, Unspecified mood [affective] disorder F3 9 ; Anxiety disorder, unspecified type F41.9 and ADHD (attention deficit hyperactivity disorder), combined type F90.2 [facility] [address] [facility] [id number] [address] [place] [address] Nov, Other specified bacterial ag ents as the cause of diseases classified elsewhere B96.89 and Otitis media, unspecified, bilateral H66.93 [facility] [address] [facility] [id number] [address] [place] [address] Nov, Sore throat J02.9 and Acute nasopharyngitis J00 [facility] [address] [place] [id number] [place] [address] Nov, ADHD (attention deficit hyperactivity di sorder), combined type F90.2 ; Anxiety disorder, unspecified type F41.9 and Unspecified mood [affective] disorder F39 [facility] [address] [address] Oct, ADHD (attention deficit hyperactivity di sorder), combined type F90.2 [place] [address] [place] [id number] [place] [address] Oct, ADHD (attention deficit hyperactivity di sorder), combined type F90.2 ; Anxiety disorder, unspecified type F41.9 and Unspecified mood [affective] disorder F39 [facility] [address] [place] [id number] [place] [address] Sep, ADHD (attention deficit hyperactivity di sorder), combined type F90.2 [place] [address] [address] Sep, [place] [address] [address] Aug, ADHD (attention deficit hyperactivity di sorder), combined type F90.2 ; Major depressive disorder, single episode, mild F32.0 and Anxiety disorder, unspecified type F41.9 [facility] [address] [facility] [id number] [address] [place] [address] Aug, Sore throat J02.9 ; Other sp ecified bacterial agents as the cause of diseases classified elsewhere B96.89 and Acute tonsillitis due to other specified organisms J03.80 [facility] [address] [address] Aug, ADHD (attention deficit hyperactivity di sorder), combined type F90.2 [facility] [address] [address] Jul, ADHD (attention deficit hyperactivity di sorder), combined type F90.2 [facility] [address] [address] June, ADHD (attention deficit hyperactivity di sorder), combined type F90.2 ; Major depressive disorder, single episode, mild F32.0 and Anxiety disorder, unspecified type F41.9 [facility] [address] [address] June, [place] [address] [address] June, ADHD (attention deficit hyperactivity di sorder), combined type F90.2 [facility] [address] [address] May, [facility] [address] [address] May, ADHD (attention deficit hyperactivity di sorder), combined type F90.2 ; Major depressive disorder, single episode, mild F32.0 and Anxiety disorder, unspecified type F41.9 [facility] [address] [address] May, Anxiety disorder, unspecified type F41.9 [facility] [address] [address] Apr, [facility] [address] [address] Apr, Anxiety disorder, unspecified type F41.9 [place] [address] [address] Apr, Anxiety disorder, unspecified type F41.9 ; Major depressive disorder, single episode, mild F32.0 and ADHD (attention deficit hyperactivity disorder), combined type F90.2 [place] [address] [address] Apr, [place] [address] [address] Apr, ADHD (attention deficit hyperactivity di sorder), combined type F90.2 ; Anxiety state F41.1 ; Depressive disorder, not elsewhere classified F32.9 ; Major depressive disorder, single episode, mild F32.0 and Anxiety disorder, unspecified type F41.9 [place] [address] [address] Mar, ADHD (attention deficit hyperactivity di sorder), combined type F90.2 [place] [address] [address] Mar, Nausea R11.0 [place] [address] [address] 13 Mar, 2017 Screening for STD sexually transmitted d isease Z11.3 ; Vaginal candidiasis B37.3 and Irritable bowel syndrome with diarrhea K58.0 [place] [address] [address] 04 Mar, 2017 [place] [address] [address] Feb, ADHD (attention deficit hyperactivity di sorder), combined type F90.2 [place] [address] [address] Feb, Depressive disorder, not elsewhere class ified F32.9 ; Anxiety state F41.1 and ADHD (attention deficit hyperactivity disorder), combined type F90.2 [place] [address] [address] Feb, Depressive disorder, not elsewhere class ified F32.9 ; Anxiety state F41.1 and ADHD (attention deficit hyperactivity disorder), combined type F90.2 [facility] [address] [address] Feb, ADHD (attention deficit hyperactivity di sorder), combined type F90.2 [facility] [address] [facility] [id number] [address] [place] [address] Jan, Other viral agents as the ca use of diseases classified elsewhere B97.89 and Acute upper respiratory infection, unspecified J06.9 [place] [address] [address] Jan, ADHD (attention deficit hyperactivity di sorder), combined type F90.2 ; Major depressive disorder, single episode, mild F32.0 and Anxiety disorder, unspecified type F41.9 [place] [address] [address] Jan, [place] [address] [address] Jan, ADHD (attention deficit hyperactivity di sorder), combined type F90.2 ; Major depressive disorder, single episode, mild F32.0 and Anxiety disorder, unspecified type F41.9 [place] [address] [address] Dec, Irritable bowel syndrome with diarrhea K 58.0 and Lower abdominal pain R10.30 [place] [address] [address] Dec, Hospital discharge follow-up Z09 ; Mesen teric adenitis I88.0 ; IBD (inflammatory bowel disease) K52.9 and Nausea R11.0 [place] [address] [address] Nov, ADHD (attention deficit hyperactivity di sorder), combined type F90.2 ; Major depressive disorder, single episode, mild F32.0 and Anxiety disorder, unspecified type F41.9 [place] [address] [address] Nov, Anxiety state F41.1 ; ADHD (attention de ficit hyperactivity disorder), combined type F90.2 ; Major depressive disorder, single episode, mild F32.0 and Anxiety disorder, unspecified type F41.9 [place] [address] [address] Oct, Anxiety state F41.1 ; ADHD (attention de ficit hyperactivity disorder), combined type F90.2 ; Major depressive disorder, single episode, mild F32.0 and Anxiety disorder, unspecified type F41.9 [place] [address] [address] Oct, ADHD (attention deficit hyperactivity di sorder), combined type F90.2 ; Major depressive disorder, single episode, mild F32.0 and Anxiety disorder, unspecified type F41.9 [place] [address] [address] Oct, Major depressive disorder, single episod e, mild F32.0 ; Anxiety state F41.1 ; ADHD (attention deficit hyperactivity disorder), combined type F90.2 and Depressive disorder, not elsewhere classified F32.9 [facility] [address] [place] [id number] [address] [place] [address] Oct, [facility] [address] [place] [id number] [address] [place] [address] Oct, Cellulitis L03.90 and Planta r wart of right foot B07.[address] [address] Aug, ADHD (attention deficit hyperactivity di sorder), combined type F90.2 ; Major depressive disorder, single episode, mild F32.0 and Anxiety disorder, unspecified type F41.9 [place] [address] [address] Aug, [facility] [address] [address] Jul, ADHD (attention deficit hyperactivity di sorder), combined type F90.2 [facility] [address] [address] Jul, Mesenteric adenitis I88.0 [facility] [address] [address] June, [facility] [address] [place] [id number] [place] [address] June, Lower abdominal pain R10.30 [place] [address] [address] June, [place] [address] [address] June, ADHD (attention deficit hyperactivity di sorder), combined type F90.2 and Major depressive disorder, single episode, mild F32.0 [facility] [address] [address] May, [place] [address] [address] May, ADHD (attention deficit hyperactivity di sorder), combined type F90.2 and Major depressive disorder, single episode, mild F32.0 [facility] [address] [place] [id number] [place] [address] Apr, Abdominal pain R10.9 and Gas troenteritis and colitis, viral A08.4 [facility] [address] [address] Apr, [facility] [address] [place] [id number] [place] [address] Mar, Acute urticaria L50.8 [facility] [address] [address] Mar, [facility] [address] [address] Feb, [facility] [address] [place] [id number] [place] [address] Feb, Gastroenteritis K52.9 [facility] [address] [address] Feb, Irritant contact dermatitis due to awais tics L24.3 [place] [address] [address] Jan, [place] [address] [address] Jan, [place] [address] [address] Jan, ADHD (attention deficit hyperactivity di sorder), combined type F90.2 and Major depressive disorder, single episode, mild F32.0 [facility] [address] [address] Dec, Flexural eczema L20.82 [place] [address] [address] Dec, Encounter for test Z32.00 [place] [address] [address] Dec, [place] [address] [address] Dec, [place] [address] [address] Dec, [facility] [address] [place] [id number] [place] [address] Nov, Sore throat J02.9 and Pharyn gitis, unspecified etiology J02.9 [place] [address] [address] Nov, [place] [address] [address] Nov, [facility] [address] [id number] [place] [address] Nov, Generalized abdominal pain R10.84 and Sl ow transit constipation K59.01 [facility] [address] [facility] [id number] [place] [id number] Nov, Pharyngitis, unspecified etiology J02.9 and Rhinitis, unspecified type J31.0 [facility] [address] [place] [id number] [place] [address] Oct, Depressive disorder, not elsewhere class ified F32.9 and ADHD (attention deficit hyperactivity disorder), combined type F90.2 [facility] [address] [address] Oct, [facility] [address] [address] Oct, [facility] [address] [facility] [id number] [address] [place] [address] Oct, Strep throat J02.0 [facility] [address] [place] [id number] [place] [address] Oct, [place] [address] [address] Oct, Well woman exam with routine gynecologic al exam Z01.419 and Screening for STD sexually transmitted disease Z11.3 [facility] [address] [place] [id number] [place] [address] Sep, ADHD (attention deficit hyperactivity di sorder), combined type F90.2 ; Anxiety state F41.1 and Depressive disorder, not elsewhere classified F32.9 [facility] [address] [address] Sep, ADHD (attention deficit hyperactivity di sorder), combined type F90.2 and Depressive disorder, not elsewhere classified F32.9 [facility] [address] [address] Aug, [facility] [address] [place] [id number] [place] [address] Aug, ADHD (attention deficit hyperactivity di sorder), combined type F90.2 and Depressive disorder, not elsewhere classified F32.9 [facility] [address] [place] [id number] [place] [address] Aug, ADHD (attention deficit hyperactivity di sorder), combined type F90.2 ; Anxiety state F41.1 and Depressive disorder, not elsewhere classified F32.9 [place] [address] [address] Aug, [place] [address] [address] Aug, [place] [address] [address] Jul, ADHD (attention deficit hyperactivity di sorder), combined type F90.2 ; Depressive disorder, not elsewhere classified F32.9 and Anxiety state F41.1 [place] [address] [address] Jul, [place] [address] [address] Jul, ADHD (attention deficit hyperactivity di sorder), combined type F90.2 ; Anxiety state F41.1 and Depressive disorder, not elsewhere classified F32.9 [place] [address] [place] [id number] [place] [address] June, [facility] [address] [id number] [place] [id number] June, Constipation K59.00 [facility] [address] [place] [id number] [place] [address] May, Constipation K59.00 [facility] [address] [facility] [id number] [address] [place] [address] May, Irritable bowel syndrome wit h diarrhea K58.0 [facility] [address] [address] 15 May, 2015 [facility] [address] [id number] [place] [address] 15 May, 2015 [facility] [address] [id number] [place] [address] 14 May, 2014 [facility] [address] [id number] [place] [address] 13 May, 2014 [facility] [address] [id number] [place] [address] Jan, [facility] [address] [id number] [place] [address] Jan, [facility] [address] [id number] [place] [address] Jan, [facility] [address] [id number] [place] [address] Jan, [facility] [address] [id number] [place] [address] Jan, [facility] [address] [id number] [place] [address] Jan, [facility] [address] [id number] [place] [address] Nov, [facility] [address] [id number] [place] [address] Nov, [facility] [address] [id number] [place] [address] Oct, [facility] [address] [id number] [place] [address] Oct, [facility] [address] [id number] [place] [address] Sep, [facility] [address] [id number] [place] [address] Sep, [facility] [address] [id number] [place] [address] Aug, [facility] [address] [id number] [place] [address] Aug, 2013 [facility] [address] [id number] [place] [address] Aug, [facility] [address] [facility] [id number] [place] [address] Aug, [facility] [address] [id number] [place] [address] Aug, 2013 [facility] [address] [facility] [id number] [place] [address] Aug, 2013 [facility] [address] [facility] [id number] [place] [address] Aug, [facility] [address] [id number] [place] [address] Aug, [facility] [address] [id number] [place] [address] Jul, [facility] [address] [id number] [place] [address] Jul, [facility] [address] [id number] [place] [address] Jul, [facility] [address] [id number] [place] [address] Jul, [facility] [address] [id number] [place] [address] Jul, [facility] [address] [id number] [place] [address] Jul, [facility] [address] [id number] [place] [address] Jul, [facility] [address] [id number] [place] [address] Jul, [facility] [address] [id number] [place] [address] Jul, [facility] [address] [id number] [place] [address] June, [facility] [address] [id number] [place] [address] June, [facility] [address] [id number] [place] [address] May, [facility] [address] [id number] [place] [address] May, [facility] [address] [id number] [place] [address] May, [facility] [address] [id number] [place] [address] May, [facility] [address] [id number] [place] [address] May, [facility] [address] [id number] [place] [address] May, [facility] [address] [id number] [place] [address] May, [facility] [address] [id number] [place] [address] May, [facility] [address] [id number] [place] [address] May, [facility] [address] [id number] [place] [address] May, [facility] [address] [id number] [place] [address] May, [facility] [address] [id number] [place] [address] May, [facility] [address] [id number] [place] [address] Apr, [facility] [address] [id number] [place] [address] Apr, [facility] [address] [id number] [place] [address] Apr, [facility] [address] [id number] [place] [address] Apr, [facility] [address] [facility] [id number] [facility] [place] [address] Mar, [facility] [address] [facility] [id number] [facility] [place] [address] Mar, [facility] [address] [id number] [place] [address] Mar, [facility] [address] [facility] [id number] [place] [address] Mar, [facility] [address] [facility] [id number] [place] [address] Mar, [facility] [address] [id number] [place] [address] Mar, [facility] [address] [id number] [place] [address] Mar, [facility] [address] [id number] [place] [address] Mar, 2013 [facility] [address] [id number] [place] [address] Mar, [facility] [address] [id number] [place] [address] Mar, [facility] [address] [id number] [place] [address] 14 Mar, 2013 [facility] [address] [id number] [place] [address] 14 Mar, 2013 [facility] [address] [facility] [id number] [place] [address] 13 Mar, 2013 [facility] [address] [id number] [place] [address] Mar, 2013 [facility] [address] [id number] [place] [address] Mar, [facility] [address] [id number] [place] [address] Mar, [facility] [address] [facility] [id number] [place] [address] Mar, [facility] [address] [facility] [id number] [place] [address] Mar, [facility] [address] [facility] [id number] [place] [address] Mar, [facility] [address] [id number] [place] [address] Mar, [facility] [address] [facility] [id number] [place] [address] Feb, [facility] [address] [id number] [place] [address] Feb, [facility] [address] [id number] [place] [address] Feb, [facility] [address] [id number] [place] [address] Feb, [facility] [address] [id number] [place] [address] Feb, [facility] [address] [id number] [place] [address] Feb, [facility] [address] [id number] [place] [address] Feb, [facility] [address] [id number] [place] [address] Feb, [facility] [address] [id number] [place] [address] Feb, [facility] [address] [id number] [place] [address] Feb, [facility] [address] [id number] [place] [address] Feb, [facility] [address] [id number] [place] [address] Feb, [facility] [address] [id number] [place] [address] 17 Feb, 2013 [facility] [address] [id number] [place] [address] 16 Feb, 2013 [facility] [address] [id number] [place] [address] 16 Feb, 2013 [facility] [address] [id number] [place] [address] 15 Feb, 2013 [facility] [address] [id number] [place] [address] 15 Feb, 2013 [facility] [address] [id number] [place] [address] 15 Feb, 2013 [facility] [address] [id number] [place] [address] 15 Feb, 2013 [facility] [address] [id number] [place] [address] Feb, [facility] [address] [id number] [place] [address] Feb, [facility] [address] [id number] [place] [address] Feb, [facility] [address] [id number] [place] [address] Feb, [facility] [address] [id number] [place] [address] 24 Jan, 2013 [facility] [address] [id number] [place] [address] 24 Jan, 2013 [facility] [address] [id number] [place] [address] 19 Jan, 2013 [facility] [address] [id number] [place] [address] 18 Jan, 2013 [facility] [address] [id number] [place] [address] 18 Jan, 2013 [facility] [address] [id number] [place] [address] 18 Jan, 2013 [facility] [address] [id number] [place] [address] 18 Jan, 2012 [facility] [address] [id number] [place] [address] Jan, [facility] [address] [id number] [place] [address] Jan, [facility] [address] [id number] [place] [address] Jan, [facility] [address] [id number] [place] [address] Jan, [facility] [address] [id number] [place] [address] Jan, [facility] [address] [id number] [place] [address] Jan, [facility] [id number] [place] [address] Dec, [facility] [address] [id number] [place] [address] Dec, [facility] [address] [id number] [place] [address] Dec, [facility] [address] [id number] [place] [address] Dec, [facility] [id number] [place] [address] 15 Dec, 2012 [facility] [address] [id number] [place] [address] 15 Dec, 2012 [facility] [address] [id number] [place] [address] Nov, [facility] [id number] [place] [address] Nov, [facility] [address] [id number] [place] [address] Nov, [facility] [address] [id number] [place] [address] Nov, [facility] [address] [id number] [place] [address] Nov, [facility] [address] [id number] [place] [address] Nov, [facility] [address] [id number] [place] [address] 28 Oct, 2012 [facility] [id number] [place] [address] Oct, [facility] [id number] [place] [address] Oct, [facility] [id number] [place] [address] Oct, [facility] [address] [id number] [place] [address] Oct, [facility] [id number] [place] [address] 18 Oct, 2012 [facility] [address] [id number] [place] [address] Oct, IMMUNIZATIONS No Known Immunizations SOCIAL HISTORY [...]
--- OUTSIDE RECORDS SUMMARY | 2019-06-25 21:22 | XMS REPORT ---
Author Author Sheyla Xavier Doctor Organization [facility] Address Unknown Phone Unavailable Care Team Providers Care Supervisor Inventory Merchandising Name Role Phone Migration, Doctor Unavailable Unavailable PROBLEMS Type Condition ICD9-CM Code SYQ06-KN Code Onset Dates Condition S tatus SNOMED Code Problem ADHD (attention deficit hyperactivity disorder), combi amparo type F90.2 Active 22124957 Problem Unspecified mood [affective] disorder F39 Active 65392169 Problem Intrinsic atopic dermatitis L20.84 Ac tive 55095825 Problem Slow transit constipation K59.01 Acti ve 64874221 Problem Anxiety disorder, unspecified type F41.9 Active 744087472 Problem Major depressive disorder, single episode, mild F3 2.0 Active 75707854 Problem Irritable bowel syndrome with diarrhea K58.0 Active 205304613 ALLERGIES No Information ENCOUNTERS Encounter Location Date Diagnosis [place] [address] [address] May, [place] [address] [address] May, [place] [address] [address] Apr, [place] [address] [address] Apr, [place] [address] [address] Apr, Diet controlled gestational diabetes jessenia litus (GDM) in third trimester O24.410 [place] [address] [address] 11 Apr, 2019 30 weeks gestation of Z3A.30 ; Diet controlled gestational diabetes mellitus (GDM) in third trimester O24.410 and Encounter for immunization Z23 [place] [address] [address] 05 Apr, 2019 [place] [address] [place] [id number] [place] [address] 04 Apr, 2019 Gestational diabetes O24.419 [place] [address] [address] Apr, [place] [address] [address] Apr, Abnormal glucose tolerance in O99.810 [place] [address] [address] Mar, Abnormal glucose tolerance in O99.810 [place] [address] [address] Mar, Second trimester Z33.1 ; Nause a and vomiting during O21.9 and 27 weeks gestation of Z3A.27 [place] [address] [address] Mar, [facility] [address] [place] [id number] [place] [address] Mar, Non-intractable vomiting wit h nausea, unspecified vomiting type R11.2 [place] [address] [address] Feb, [place] [address] [address] Feb, Second trimester Z33.1 [place] [address] [address] 13 Feb, 2019 Second trimester Z34.92 ; 21 w eeks gestation of Z3A.21 and Exposure to STD Z20.2 [place] [address] [address] 07 Feb, 2019 Second trimester Z33.1 [facility] [address] [facility] [id number] [address] [place] [address] 05 Feb, 2019 Non-intractable vomiting wit h nausea, unspecified vomiting type R11.2 [place] [address] [place] [id number] [place] [address] Jan, [facility] [address] [address] Jan, [facility] [address] [address] Jan, First trimester Z34.91 [place] [address] [address] 16 Jan, 2019 Second trimester Z34.92 and In [facility] atopic dermatitis L20.84 [place] [address] [address] Dec, First trimester Z34.91 [place] [address] [address] Dec, Second trimester Z34.92 and Fa kim history of neural tube defect Z82.0 [place] [address] [address] 18 Dec, 2018 [facility] [address] [address] Dec, Second trimester Z34.92 ; Fami ly history of neural tube defect Z82.0 ; History of asthma Z87.09 and Wheezing R06.2 [place] [address] [place] [id number] [place] [address] Dec, [facility] [address] [facility] [address] Dec, [facility] [address] [place] [id number] [place] [address] Nov, care, subsequent in f irst trimester Z34.81 [place] [id number] [place] [address] Nov, First trimester Z34.91 ; 10 we eks gestation of Z3A.10 and Nausea and vomiting during O21.9 [place] [address] [place] [address] 14 Nov, 2018 care, subsequent in f irst trimester Z34.81 [facility] [address] [place] [id number] [place] [address] 05 Nov, 2018 Vomiting O21.9 [place] [address] [address] 26 Oct, 2018 care, subsequent in f irst trimester Z34.81 and 6 weeks gestation of Z3A.01 [place] [address] [address] 20 Oct, 2018 [facility] [place] [address] [place] [address] 06 Oct, 2018 Heat rash L74.0 [place] [address] [address] Aug, UTI symptoms R39.9 [place] [address] [address] Aug, [place] [address] [address] Aug, UTI symptoms R39.9 [place] [address] [address] 10 Aug, 2018 Hematuria, unspecified type R31.9 [facility] [place] [address] [place] [id number] [place] [address] Jul, Sore throat J02.9 ; UTI symp toms R39.9 and Hematuria, unspecified type R31.9 [place] [address] [address] June, Irritable bowel syndrome with diarrhea K 58.0 and Major depressive disorder, single episode, mild F32.0 [place] [address] [address] June, ADHD (attention deficit hyperactivity di sorder), combined type F90.2 ; Anxiety disorder, unspecified type F41.9 and Unspecified mood [affective] disorder F39 [facility] [address] [address] May, ADHD (attention deficit hyperactivity di sorder), combined type F90.2 ; Anxiety disorder, unspecified type F41.9 ; Unspecified mood [affective] disorder F39 and 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 (current) 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 Z79.899 [facility] [address] [address] May, Slow transit constipation K59.01 [facility] [address] [address] May, ADHD (attention deficit hyperactivity di sorder), combined type F90.2 [facility] [address] [address] May, [facility] [address] [address] May, Abdominal pain R10.9 [facility] [address] [address] Apr, [facility] [address] [address] Apr, [facility] [address] [address] Apr, ADHD (attention deficit hyperactivity di sorder), combined type F90.2 [facility] [address] [address] Apr, Abdominal pain R10.9 [facility] [address] [address] Apr, [facility] [address] [address] Mar, [facility] [address] [address] Mar, ADHD (attention deficit hyperactivity di sorder), combined type F90.2 ; Anxiety disorder, unspecified type F41.9 and Unspecified mood [affective] disorder F39 [facility] [address] [address] Mar, Viral gastroenteritis A08.4 and Slow tra nsit constipation K59.01 [facility] [address] [facility] [id number] [place] [address] Mar, Viral gastroenteritis A08.4 [place] [address] [address] Mar, ADHD (attention deficit hyperactivity di sorder), combined type F90.2 [place] [address] [address] Feb, Slow transit constipation K59.01 ; [facility] N92.6 and Nausea R11.0 [place] [address] [address] Feb, ADHD (attention deficit hyperactivity di sorder), combined type F90.2 [facility] [address] [place] [id number] [place] [address] Jan, Nausea R11.0 and Viral upper respiratory tract infection J06.9 [place] [address] [address] Jan, [place] [address] [address] Jan, ADHD (attention deficit hyperactivity di sorder), combined type F90.2 ; Anxiety disorder, unspecified type F41.9 and Unspecified mood [affective] disorder F39 [place] [address] [address] Jan, Well woman exam with routine gynecologic al exam Z01.419 ; Routine screening for STI (sexually transmitted infection) Z11.3 and Vaginal jose B37.3 [place] [address] [address] Dec, [place] [address] [place] [address] Dec, [facility] [address] [address] Dec, ADHD (attention deficit hyperactivity di sorder), combined type F90.2 ; Anxiety disorder, unspecified type F41.9 and Unspecified mood [affective] disorder F39 [facility] [address] [address] Dec, Unspecified mood [affective] disorder F3 9 ; Anxiety disorder, unspecified type F41.9 and ADHD (attention deficit hyperactivity disorder), combined type F90.2 [facility] [address] [place] [id number] [place] [address] Nov, Other specified bacterial ag ents as the cause of diseases classified elsewhere B96.89 and Otitis media, unspecified, bilateral H66.93 [facility] [address] [place] [id number] [place] [address] Nov, Sore throat J02.9 and Acute nasopharyngitis J00 [facility] [address] [place] [id number] [place] [address] Nov, ADHD (attention deficit hyperactivity di sorder), combined type F90.2 ; Anxiety disorder, unspecified type F41.9 and Unspecified mood [affective] disorder F39 [facility] [address] [address] Oct, ADHD (attention deficit hyperactivity di sorder), combined type F90.2 [facility] [address] [address] Oct, ADHD (attention deficit hyperactivity di sorder), combined type F90.2 ; Anxiety disorder, unspecified type F41.9 and Unspecified mood [affective] disorder F39 [facility] [address] [address] Sep, ADHD (attention deficit hyperactivity di sorder), combined type F90.2 [place] [address] [address] Sep, [facility] [address] [place] [id number] [place] [address] Aug, ADHD (attention deficit hyperactivity di sorder), combined type F90.2 ; Major depressive disorder, single episode, mild F32.0 and Anxiety disorder, unspecified type F41.9 [facility] IN [facility] [address] [facility] [id number] [address] [place] [address] Aug, Sore throat J02.9 ; Other sp ecified bacterial agents as the cause of diseases classified elsewhere B96.89 and Acute tonsillitis due to other specified organisms J03.80 [place] [address] [place] [id number] [place] [address] Aug, ADHD (attention deficit hyperactivity di sorder), combined type F90.2 [place] [address] [address] Jul, ADHD (attention deficit hyperactivity di sorder), combined type F90.2 [facility] [address] [place] [id number] [place] [address] June, ADHD (attention deficit hyperactivity di sorder), combined type F90.2 ; Major depressive disorder, single episode, mild F32.0 and Anxiety disorder, unspecified type F41.9 [place] [address] [place] [id number] [place] [address] June, [facility] [address] [address] June, ADHD (attention deficit hyperactivity di sorder), combined type F90.2 [facility] [address] [place] [id number] [place] [address] May, [place] [address] [address] May, ADHD (attention deficit hyperactivity di sorder), combined type F90.2 ; Major depressive disorder, single episode, mild F32.0 and Anxiety disorder, unspecified type F41.9 [place] [address] [address] May, Anxiety disorder, unspecified type F41.9 [place] [address] [address] Apr, [place] [address] [address] Apr, Anxiety disorder, unspecified type F41.9 [place] [address] [address] Apr, Anxiety disorder, unspecified type F41.9 ; Major depressive disorder, single episode, mild F32.0 and ADHD (attention deficit hyperactivity disorder), combined type F90.2 [place] [address] [address] Apr, [place] [address] [address] Apr, ADHD (attention deficit hyperactivity di sorder), combined type F90.2 ; Anxiety state F41.1 ; Depressive disorder, not elsewhere classified F32.9 ; Major depressive disorder, single episode, mild F32.0 and Anxiety disorder, unspecified type F41.9 [place] [address] [address] Mar, ADHD (attention deficit hyperactivity di sorder), combined type F90.2 [place] [address] [address] Mar, Nausea R11.0 [place] [address] [address] 13 Mar, 2017 Screening for STD sexually transmitted d isease Z11.3 ; Vaginal candidiasis B37.3 and Irritable bowel syndrome with diarrhea K58.0 [place] [address] [address] 04 Mar, 2017 [place] [address] [address] 31 Home, 2018 ADHD (attention deficit hyperactivity di sorder), combined type F90.2 [facility] [address] [address] Feb, Depressive disorder, not elsewhere class ified F32.9 ; Anxiety state F41.1 and ADHD (attention deficit hyperactivity disorder), combined type F90.2 [facility] [address] [address] Feb, Depressive disorder, not elsewhere class ified F32.9 ; Anxiety state F41.1 and ADHD (attention deficit hyperactivity disorder), combined type F90.2 [facility] [address] [address] Feb, ADHD (attention deficit hyperactivity di sorder), combined type F90.2 [facility] [address] [facility] [id number] [address] [place] [address] Jan, Other viral agents as the ca use of diseases classified elsewhere B97.89 and Acute upper respiratory infection, unspecified J06.9 [place] [address] [address] Jan, ADHD (attention deficit hyperactivity di sorder), combined type F90.2 ; Major depressive disorder, single episode, mild F32.0 and Anxiety disorder, unspecified type F41.9 [place] [address] [address] Jan, [facility] [address] [address] Jan, ADHD (attention deficit hyperactivity di sorder), combined type F90.2 ; Major depressive disorder, single episode, mild F32.0 and Anxiety disorder, unspecified type F41.9 [place] [address] [address] Dec, Irritable bowel syndrome with diarrhea K 58.0 and Lower abdominal pain R10.30 [place] [address] [address] 09 Dec, 2016 Hospital discharge follow-up Z09 ; Mesen teric adenitis I88.0 ; IBD (inflammatory bowel disease) K52.9 and Nausea R11.0 [place] [address] [address] Nov, ADHD (attention deficit hyperactivity di sorder), combined type F90.2 ; Major depressive disorder, single episode, mild F32.0 and Anxiety disorder, unspecified type F41.9 [place] [address] [address] Nov, Anxiety state F41.1 ; ADHD (attention de ficit hyperactivity disorder), combined type F90.2 ; Major depressive disorder, single episode, mild F32.0 and Anxiety disorder, unspecified type F41.9 [place] [address] [address] Oct, Anxiety state F41.1 ; ADHD (attention de ficit hyperactivity disorder), combined type F90.2 ; Major depressive disorder, single episode, mild F32.0 and Anxiety disorder, unspecified type F41.9 [place] [address] [address] Oct, ADHD (attention deficit hyperactivity di sorder), combined type F90.2 ; Major depressive disorder, single episode, mild F32.0 and Anxiety disorder, unspecified type F41.9 [place] [address] [address] Oct, Major depressive disorder, single episod e, mild F32.0 ; Anxiety state F41.1 ; ADHD (attention deficit hyperactivity disorder), combined type F90.2 and Depressive disorder, not elsewhere classified F32.9 [facility] [address] [place] [id number] [address] [place] [address] 16 Oct, 2016 [facility] [address] [place] [id number] [address] [place] [address] 12 Oct, 2016 Cellulitis L03.90 and Planta r wart of right foot B07.[address] [address] Aug, ADHD (attention deficit hyperactivity di sorder), combined type F90.2 ; Major depressive disorder, single episode, mild F32.0 and Anxiety disorder, unspecified type F41.9 [facility] [address] [address] Aug, [place] [address] [address] Jul, ADHD (attention deficit hyperactivity di sorder), combined type F90.2 [place] [address] [address] Jul, Mesenteric adenitis I88.0 [place] [address] [address] June, [facility] [address] [place] [id number] [place] [address] June, Lower abdominal pain R10.30 [place] [address] [address] June, [place] [address] [address] June, ADHD (attention deficit hyperactivity di sorder), combined type F90.2 and Major depressive disorder, single episode, mild F32.0 [place] [address] [address] May, [place] [address] [address] May, ADHD (attention deficit hyperactivity di sorder), combined type F90.2 and Major depressive disorder, single episode, mild F32.0 [facility] [address] [facility] [id number] [address] [place] [address] Apr, Abdominal pain R10.9 and Gas troenteritis and colitis, viral A08.4 [facility] [address] [address] Apr, [facility] [address] [place] [address] Mar, Acute urticaria L50.8 [place] [address] [address] Mar, [place] [address] [address] Feb, [facility] IN [facility] [address] [address] Feb, Gastroenteritis K52.9 [place] [address] [address] Feb, Irritant contact dermatitis due to awais tics L24.3 [place] [address] [address] Jan, [place] [address] [address] Jan, [place] [address] [address] Jan, ADHD (attention deficit hyperactivity di sorder), combined type F90.2 and Major depressive disorder, single episode, mild F32.0 [facility] IN [facility] [address] [place] [id number] [place] [address] Dec, Flexural eczema L20.82 [place] [address] [address] Dec, Encounter for test Z32.00 [place] [address] [address] Dec, [place] [address] [address] Dec, [place] [address] [address] Dec, [facility] [address] [address] Nov, Sore throat J02.9 and Pharyn gitis, unspecified etiology J02.9 [facility] [address] [address] Nov, [facility] [address] [place] [id number] [place] [address] Nov, [facility] [address] [place] [id number] [place] [address] Nov, Generalized abdominal pain R10.84 and Sl ow transit constipation K59.01 [facility] [address] [id number] [place] [id number] Nov, Pharyngitis, unspecified etiology J02.9 and Rhinitis, unspecified type J31.0 [facility] [address] [address] Oct, Depressive disorder, not elsewhere class ified F32.9 and ADHD (attention deficit hyperactivity disorder), combined type F90.2 [facility] [address] [address] Oct, [facility] [address] [address] Oct, [facility] [address] [facility] [id number] [address] [place] [address] Oct, Strep throat J02.0 [facility] [address] [address] 16 Oct, 2015 [place] [address] [address] 09 Oct, 2015 Well woman exam with routine gynecologic al exam Z01.419 and Screening for STD sexually transmitted disease Z11.3 [place] [address] [address] Sep, ADHD (attention deficit hyperactivity di sorder), combined type F90.2 ; Anxiety state F41.1 and Depressive disorder, not elsewhere classified F32.9 [facility] [address] [place] [address] Sep, ADHD (attention deficit hyperactivity di sorder), combined type F90.2 and Depressive disorder, not elsewhere classified F32.9 [facility] [address] [place] [id number] [place] [address] Aug, [facility] [address] [place] [id number] [place] [address] Aug, ADHD (attention deficit hyperactivity di sorder), combined type F90.2 and Depressive disorder, not elsewhere classified F32.9 [facility] [address] [place] [id number] [place] [address] Aug, ADHD (attention deficit hyperactivity di sorder), combined type F90.2 ; Anxiety state F41.1 and Depressive disorder, not elsewhere classified F32.9 [facility] [address] [place] [id number] [place] [address] Aug, [facility] [address] [place] [id number] [place] [address] Aug, [facility] [address] [address] Jul, ADHD (attention deficit hyperactivity di sorder), combined type F90.2 ; Depressive disorder, not elsewhere classified F32.9 and Anxiety state F41.1 [facility] [address] [place] [id number] [place] [address] Jul, [facility] [address] [place] [id number] [place] [address] Jul, ADHD (attention deficit hyperactivity di sorder), combined type F90.2 ; Anxiety state F41.1 and Depressive disorder, not elsewhere classified F32.9 [facility] [address] [place] [id number] [place] [address] June, [facility] [address] [id number] [place] [id number] June, Constipation K59.00 [facility] [address] [place] [id number] [place] [address] 28 May, 2016 Constipation K59.00 [facility] [address] [facility] [id number] [address] [place] [address] 20 May, 2016 Irritable bowel syndrome wit h diarrhea K58.0 [facility] [address] [place] [id number] [place] [address] 15 May, 2015 [facility] [address] [place] [id number] [place] [address] 15 May, 2015 [facility] [address] [place] [id number] [place] [address] 14 May, 2014 [facility] [address] [place] [id number] [place] [address] 13 May, 2014 [facility] [address] [place] [id number] [place] [address] 29 Jan, 2014 [facility] [address] [place] [id number] [place] [address] 29 Jan, 2014 [facility] [address] [place] [id number] [place] [address] 08 Jan, 2014 [facility] [address] [place] [id number] [place] [address] 08 Jan, 2014 [facility] [address] [place] [id number] [place] [address] 05 Jan, 2014 [facility] [id number] [place] [address] 05 Jan, 2014 [facility] [id number] [place] [address] Nov, [facility] [id number] [place] [address] Nov, [facility] [id number] [place] [address] 18 Oct, 2013 [facility] [id number] [place] [address] 18 Oct, 2013 [facility] [id number] [place] [address] Sep, [facility] [place] [facility] [address] [facility] [id number] [place] [address] Sep, [facility] [place] [facility] [address] [facility] [id number] [facility] [place] [address] Aug, [facility] [place] [facility] [address] [id number] [place] [address] Aug, [facility] [place] [facility] [address] [facility] [id number] [place] [address] Aug, [facility] [place] [facility] [address] [facility] [id number] [place] [address] Aug, [facility] [place] [facility] [address] [id number] [place] [address] Aug, [facility] [place] [facility] [address] [id number] [place] [address] Aug, [facility] [place] [facility] [address] [id number] [place] [address] Aug, [facility] [place] [facility] [address] [facility] [id number] [place] [address] Aug, [facility] [place] [facility] [address] [id number] [place] [address] Jul, [facility] [place] [facility] [address] [id number] [place] [address] Jul, [facility] [place] [facility] [address] [id number] [place] [address] Jul, [facility] [place] [facility] [address] [facility] [id number] [place] [address] Jul, [facility] [place] [facility] [address] [id number] [place] [address] Jul, [facility] [place] [facility] [address] [id number] [place] [address] Jul, [facility] [place] [facility] [address] [id number] [place] [address] Jul, [facility] [place] [facility] [address] [facility] [id number] [place] [address] Jul, [facility] [place] [facility] [address] [id number] [place] [address] Jul, [facility] [place] [facility] [address] [id number] [place] [address] June, [facility] [place] [facility] [address] [id number] [place] [address] June, [facility] [place] [facility] [address] [id number] [place] [address] May, [facility] [place] [facility] [address] [id number] [place] [address] May, [facility] [place] [facility] [address] [id number] [place] [address] May, [facility] [place] [facility] [address] [id number] [place] [address] May, [facility] [place] [facility] [address] [id number] [place] [address] May, [facility] [place] [facility] [address] [id number] [place] [address] May, [facility] [place] [facility] [address] [id number] [place] [address] May, [facility] [place] [facility] [address] [id number] [place] [address] May, [facility] [place] [facility] [address] [id number] [place] [address] May, [facility] [place] [facility] [address] [id number] [place] [address] May, [facility] [place] [facility] [address] [id number] [place] [address] May, [facility] [place] [facility] [address] [id number] [place] [address] May, [facility] [place] [facility] [address] [id number] [place] [address] Apr, [facility] [place] [facility] [address] [id number] [place] [address] Apr, [facility] [place] [facility] [address] [id number] [place] [address] Apr, [facility] [place] [facility] [address] [id number] [place] [address] Apr, [facility] [place] [facility] [address] [id number] [place] [address] Mar, [facility] [place] [facility] [address] [id number] [place] [address] Mar, [facility] [place] [facility] [address] [id number] [place] [address] Mar, [facility] [place] [facility] [address] [id number] [place] [address] Mar, [facility] [place] [facility] [address] [id number] [place] [address] Mar, [facility] [place] [facility] [address] [id number] [place] [address] Mar, [facility] [place] [facility] [address] [id number] [place] [address] Mar, [facility] [place] [facility] [address] [id number] [place] [address] Mar, [facility] [place] [facility] [address] [id number] [place] [address] Mar, [facility] [place] [facility] [address] [id number] [place] [address] Mar, [facility] [place] [facility] [address] [id number] [place] [address] 14 Mar, 2013 [facility] [place] [facility] [address] [id number] [place] [address] 14 Mar, 2013 [facility] [place] [facility] [address] [id number] [place] [address] 13 Mar, 2013 [facility] [place] [facility] [address] [id number] [place] [address] Mar, [facility] [place] [facility] [address] [facility] [id number] [place] [address] Mar, [facility] [place] [facility] [address] [id number] [place] [address] Mar, [facility] [place] [facility] [address] [id number] [place] [address] Mar, [facility] [place] [facility] [address] [id number] [place] [address] Mar, [facility] [place] [facility] [address] [id number] [place] [address] Mar, [facility] [place] [facility] [address] [id number] [place] [address] Mar, [facility] [place] [facility] [address] [id number] [place] [address] Feb, [facility] [place] [facility] [address] [id number] [place] [address] Feb, [facility] [place] [facility] [address] [id number] [place] [address] Feb, [facility] [place] [facility] [address] [id number] [place] [address] Feb, [facility] [place] [facility] [address] [id number] [place] [address] Feb, [facility] [place] [facility] [address] [id number] [place] [address] Feb, [facility] [place] [facility] [address] [id number] [place] [address] Feb, [facility] [place] [facility] [address] [id number] [place] [address] Feb, [facility] [place] [facility] [address] [id number] [place] [address] Feb, [facility] [place] [facility] [address] [id number] [place] [address] Feb, [facility] [place] [facility] [address] [facility] [id number] [place] [address] Feb, [facility] [place] [facility] [address] [id number] [place] [address] Feb, [facility] [place] [facility] [address] [id number] [place] [address] Feb, [facility] [place] [facility] [address] [id number] [place] [address] Feb, [facility] [place] [facility] [address] [facility] [id number] [place] [address] Feb, [facility] [place] [facility] [address] [id number] [place] [address] Feb, [facility] [place] [facility] [address] [id number] [place] [address] Feb, [facility] [place] [facility] [address] [id number] [place] [address] Feb, [facility] [place] [facility] [address] [id number] [place] [address] Feb, [facility] [place] [facility] [address] [id number] [place] [address] Feb, [facility] [place] [facility] [address] [id number] [place] [address] Feb, [facility] [place] [facility] [address] [id number] [place] [address] Feb, [facility] [place] [facility] [address] [id number] [place] [address] Feb, [facility] [place] [facility] [address] [id number] [place] [address] Jan, [facility] [place] [facility] [address] [id number] [place] [address] Jan, [facility] [place] [facility] [address] [id number] [place] [address] Jan, [facility] [place] [facility] [address] [id number] [place] [address] 18 Jan, 2013 [facility] [place] [facility] [address] [id number] [place] [address] 18 Jan, 2013 [facility] [place] [facility] [address] [id number] [place] [address] 18 Jan, 2013 [facility] [place] [facility] [address] [id number] [place] [address] 18 Jan, 2013 [facility] [place] [facility] [address] [id number] [place] [address] Jan, [facility] [place] [facility] [address] [id number] [place] [address] Jan, [facility] [place] [facility] [address] [id number] [place] [address] Jan, [facility] [place] [facility] [address] [id number] [place] [address] Jan, [facility] [place] [facility] [id number] [place] [address] Jan, [facility] [place] [facility] [address] [id number] [place] [address] Jan, [facility] [place] [facility] [id number] [place] [address] Dec, [facility] [place] [facility] [address] [id number] [place] [address] Dec, [facility] [place] [facility] [address] [id number] [place] [address] Dec, [facility] [place] [facility] [address] [id number] [place] [address] Dec, [facility] [place] [facility] [id number] [place] [address] 15 Dec, 2012 [facility] [place] [facility] [address] [id number] [place] [address] 15 Dec, 2012 [facility] [place] [facility] [address] [id number] [place] [address] Nov, [facility] [address] [id number] [place] [address] Nov, [facility] [id number] [place] [address] Nov, [facility] [address] [id number] [place] [address] Nov, [facility] [id number] [place] [address] Nov, [facility] [id number] [place] [address] Nov, [facility] [id number] [place] [address] 28 Oct, 2012 [facility] [id number] [place] [address] 27 Oct, 2012 [facility] [id number] [place] [address] 26 Oct, 2012 [facility] [id number] [place] [address] Oct, [facility] [id number] [place] [address] Oct, [facility] [id number] [place] [address] 18 Oct, 2012 [facility] [id number] [place] [address] Oct, IMMUNIZATIONS No Known Immunizations SOCIAL HISTORY Never Assessed REASON FOR VISIT PLAN OF CARE VITAL SIGNS MEDICATIONS Unknown Medications RESULTS No Results PROCEDURES Procedure Date Ordered Result Body Site PSYTX PT&/FAMILY 30 MINUTES Apr 04, 2013 INSTRUCTIONS MEDICATIONS ADMINISTERED No Known Medications [...]
--- OUTSIDE RECORDS SUMMARY | 2019-06-25 21:23 | XMS REPORT ---
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 Name Role Phone RHIANNON GENARO Unavailable PROBLEMS Type Condition ICD9-CM Code [id number] Code Onset Dates Condition S tatus SNOMED Code Problem ADHD (attention deficit hyperactivity disorder), combi amparo type F90.2 Active 90490053 Problem Unspecified mood [affective] disorder F39 Active 36449391 Problem Intrinsic atopic dermatitis L20.84 Ac tive 40644361 Problem Slow transit constipation K59.01 Acti ve 17234464 Problem Anxiety disorder, unspecified type F41.9 Active 504581128 Problem Major depressive disorder, single episode, mild F3 2.0 Active 48849388 Problem Irritable bowel syndrome with diarrhea K58.0 Active 102195195 ALLERGIES No Information ENCOUNTERS Encounter Location Date Diagnosis [place] [address] [address] May, [facility] [address] [address] May, [facility] [address] [address] Apr, [facility] [address] [address] Apr, [facility] [address] [address] Apr, [facility] [address] [address] Apr, Gestational diabetes O24.419 [facility] [address] [address] Apr, [facility] [address] [address] Apr, Abnormal glucose tolerance in O99.810 [facility] [address] [address] Mar, Abnormal glucose tolerance in O99.810 [facility] [address] [address] Mar, Second trimester Z33.1 ; Nause a and vomiting during O21.9 and 27 weeks gestation of Z3A.27 [facility] [address] [address] Mar, [facility] [address] [place] [id number] [address] [place] [address] Mar, Non-intractable vomiting wit h nausea, unspecified vomiting type R11.2 [place] [address] [address] Feb, [facility] [address] [address] Feb, Second trimester Z33.1 [place] [address] [address] 13 Feb, 2019 Second trimester Z34.92 ; 21 w eeks gestation of Z3A.21 and Exposure to STD Z20.2 [place] [address] [address] Feb, Second trimester Z33.1 [facility] [address] [facility] [id number] [address] [place] [address] Feb, Non-intractable vomiting wit h nausea, unspecified vomiting type R11.2 [place] [address] [address] Jan, [place] [address] [address] Jan, [place] [address] [address] Jan, First trimester Z34.91 [facility] [address] [place] [id number] [place] [address] 16 Jan, 2019 Second trimester Z34.92 and In trinsic atopic dermatitis L20.84 [facility] [address] [place] [id number] [place] [address] Dec, First trimester Z34.91 [facility] [address] [place] [id number] [place] [address] Dec, Second trimester Z34.92 and Karen alvarez history of neural tube defect Z82.0 [place] [address] [address] 18 Dec, 2018 [place] [address] [place] [id number] [place] [address] 13 Dec, 2018 Second trimester Z34.92 ; Fami ly history of neural tube defect Z82.0 ; History of asthma Z87.09 and Wheezing R06.2 [facility] [address] [place] [id number] [place] [address] 08 Dec, 2018 [facility] [address] [place] [id number] [address] Dec, [place] [address] [place] [id number] [place] [address] Nov, care, subsequent in f irst trimester Z34.81 [place] [address] [place] [id number] [place] [address] 24 Nov, 2018 First trimester Z34.91 ; 10 we eks gestation of Z3A.10 and Nausea and vomiting during O21.[address] [address] 14 Nov, 2018 care, subsequent in f irst trimester Z34.81 [facility] [address] [facility] [id number] [address] [place] [address] 05 Nov, 2018 Vomiting O21.9 [facility] [address] [place] [id number] [place] [address] Oct, care, subsequent in f irst trimester Z34.81 and 6 weeks gestation of Z3A.01 [place] [address] [id number] [place] [address] Oct, [facility] [address] [facility] [id number] [address] [address] Oct, Heat rash L74.0 [place] [address] [address] Aug, UTI symptoms R39.9 [place] [address] [address] Aug, [place] [address] [address] Aug, UTI symptoms R39.9 [place] [address] [address] Aug, Hematuria, unspecified type R31.9 [facility] [address] [facility] [id number] [address] [address] Jul, Sore throat J02.9 ; UTI symp toms R39.9 and Hematuria, unspecified type R31.9 [place] [address] [place] [id number] [place] [address] June, Irritable bowel syndrome with diarrhea K 58.0 and Major depressive disorder, single episode, mild F32.0 [place] [address] [place] [id number] [place] [address] June, ADHD (attention deficit hyperactivity di sorder), combined type F90.2 ; Anxiety disorder, unspecified type F41.9 and Unspecified mood [affective] disorder F39 [place] [address] [id number] [place] [address] May, ADHD (attention deficit hyperactivity di sorder), combined type F90.2 ; Anxiety disorder, unspecified type F41.9 ; Unspecified mood [affective] disorder F39 and 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 [facility] [address] [address] May, Slow transit constipation K59.01 [facility] [address] [address] May, ADHD (attention deficit hyperactivity di sorder), combined type F90.2 [facility] [address] [address] May, [facility] [address] [address] May, Abdominal pain R10.9 [facility] [address] [address] Apr, [facility] [address] [address] Apr, [facility] [address] [address] Apr, ADHD (attention deficit hyperactivity di sorder), combined type F90.2 [facility] [address] [address] Apr, Abdominal pain R10.9 [facility] [address] [address] Apr, [facility] [address] [address] Mar, [facility] [address] [address] Mar, ADHD (attention deficit hyperactivity di sorder), combined type F90.2 ; Anxiety disorder, unspecified type F41.9 and Unspecified mood [affective] disorder F39 [facility] [address] [address] Mar, Viral gastroenteritis A08.4 and Slow tra nsit constipation K59.01 [facility] [address] [facility] [id number] [place] [address] Mar, Viral gastroenteritis A08.4 [facility] [address] [address] Mar, ADHD (attention deficit hyperactivity di sorder), combined type F90.2 [facility] [address] [address] Feb, Slow transit constipation K59.01 ; Misse d period N92.6 and Nausea R11.0 [facility] [address] [address] Feb, ADHD (attention deficit hyperactivity di sorder), combined type F90.2 [facility] [address] [place] [id number] [address] [place] [address] Jan, Nausea R11.0 and Viral upper respiratory tract infection J06.9 [place] [address] [address] Jan, [place] [address] [address] Jan, ADHD (attention deficit hyperactivity di sorder), combined type F90.2 ; Anxiety disorder, unspecified type F41.9 and Unspecified mood [affective] disorder F39 [place] [address] [address] Jan, Well woman exam with routine gynecologic al exam Z01.419 ; Routine screening for STI (sexually transmitted infection) Z11.3 and Vaginal jose B37.3 [place] [address] [address] Dec, [place] [address] [address] Dec, [place] [address] [address] Dec, ADHD (attention deficit hyperactivity di sorder), combined type F90.2 ; Anxiety disorder, unspecified type F41.9 and Unspecified mood [affective] disorder F39 [facility] [address] [place] [id number] [place] [address] Dec, Unspecified mood [affective] disorder F3 9 ; Anxiety disorder, unspecified type F41.9 and ADHD (attention deficit hyperactivity disorder), combined type F90.2 [facility] [address] [facility] [id number] [address] [place] [address] Nov, Other specified bacterial ag ents as the cause of diseases classified elsewhere B96.89 and Otitis media, unspecified, bilateral H66.93 [facility] [address] [facility] [id number] [address] [place] [address] Nov, Sore throat J02.9 and Acute nasopharyngitis J00 [facility] [address] [place] [id number] [place] [address] Nov, ADHD (attention deficit hyperactivity di sorder), combined type F90.2 ; Anxiety disorder, unspecified type F41.9 and Unspecified mood [affective] disorder F39 [facility] [address] [address] Oct, ADHD (attention deficit hyperactivity di sorder), combined type F90.2 [place] [address] [place] [id number] [place] [address] Oct, ADHD (attention deficit hyperactivity di sorder), combined type F90.2 ; Anxiety disorder, unspecified type F41.9 and Unspecified mood [affective] disorder F39 [facility] [address] [place] [id number] [place] [address] Sep, ADHD (attention deficit hyperactivity di sorder), combined type F90.2 [place] [address] [address] Sep, [place] [address] [address] Aug, ADHD (attention deficit hyperactivity di sorder), combined type F90.2 ; Major depressive disorder, single episode, mild F32.0 and Anxiety disorder, unspecified type F41.9 [facility] IN [facility] [address] [facility] [id number] [address] [place] [address] Aug, Sore throat J02.9 ; Other sp ecified bacterial agents as the cause of diseases classified elsewhere B96.89 and Acute tonsillitis due to other specified organisms J03.80 [facility] [address] [address] Aug, ADHD (attention deficit hyperactivity di sorder), combined type F90.2 [facility] [address] [address] Jul, ADHD (attention deficit hyperactivity di sorder), combined type F90.2 [facility] [address] [address] June, ADHD (attention deficit hyperactivity di sorder), combined type F90.2 ; Major depressive disorder, single episode, mild F32.0 and Anxiety disorder, unspecified type F41.9 [facility] [address] [address] June, [place] [address] [address] June, ADHD (attention deficit hyperactivity di sorder), combined type F90.2 [facility] [address] [address] May, [facility] [address] [address] May, ADHD (attention deficit hyperactivity di sorder), combined type F90.2 ; Major depressive disorder, single episode, mild F32.0 and Anxiety disorder, unspecified type F41.9 [facility] [address] [address] May, Anxiety disorder, unspecified type F41.9 [facility] [address] [address] Apr, [facility] [address] [address] Apr, Anxiety disorder, unspecified type F41.9 [place] [address] [address] Apr, Anxiety disorder, unspecified type F41.9 ; Major depressive disorder, single episode, mild F32.0 and ADHD (attention deficit hyperactivity disorder), combined type F90.2 [place] [address] [address] Apr, [place] [address] [address] Apr, ADHD (attention deficit hyperactivity di sorder), combined type F90.2 ; Anxiety state F41.1 ; Depressive disorder, not elsewhere classified F32.9 ; Major depressive disorder, single episode, mild F32.0 and Anxiety disorder, unspecified type F41.9 [place] [address] [address] Mar, ADHD (attention deficit hyperactivity di sorder), combined type F90.2 [place] [address] [address] Mar, Nausea R11.0 [place] [address] [address] 13 Mar, 2017 Screening for STD sexually transmitted d isease Z11.3 ; Vaginal candidiasis B37.3 and Irritable bowel syndrome with diarrhea K58.0 [place] [address] [address] 04 Mar, 2017 [place] [address] [address] Feb, ADHD (attention deficit hyperactivity di sorder), combined type F90.2 [place] [address] [address] Feb, Depressive disorder, not elsewhere class ified F32.9 ; Anxiety state F41.1 and ADHD (attention deficit hyperactivity disorder), combined type F90.2 [place] [address] [address] Feb, Depressive disorder, not elsewhere class ified F32.9 ; Anxiety state F41.1 and ADHD (attention deficit hyperactivity disorder), combined type F90.2 [facility] [address] [address] Feb, ADHD (attention deficit hyperactivity di sorder), combined type F90.2 [facility] [address] [facility] [id number] [address] [place] [address] Jan, Other viral agents as the ca use of diseases classified elsewhere B97.89 and Acute upper respiratory infection, unspecified J06.9 [place] [address] [address] Jan, ADHD (attention deficit hyperactivity di sorder), combined type F90.2 ; Major depressive disorder, single episode, mild F32.0 and Anxiety disorder, unspecified type F41.9 [place] [address] [address] Jan, [place] [address] [address] Jan, ADHD (attention deficit hyperactivity di sorder), combined type F90.2 ; Major depressive disorder, single episode, mild F32.0 and Anxiety disorder, unspecified type F41.9 [place] [address] [address] Dec, Irritable bowel syndrome with diarrhea K 58.0 and Lower abdominal pain R10.30 [place] [address] [address] Dec, Hospital discharge follow-up Z09 ; Mesen teric adenitis I88.0 ; IBD (inflammatory bowel disease) K52.9 and Nausea R11.0 [place] [address] [address] Nov, ADHD (attention deficit hyperactivity di sorder), combined type F90.2 ; Major depressive disorder, single episode, mild F32.0 and Anxiety disorder, unspecified type F41.9 [place] [address] [address] Nov, Anxiety state F41.1 ; ADHD (attention de ficit hyperactivity disorder), combined type F90.2 ; Major depressive disorder, single episode, mild F32.0 and Anxiety disorder, unspecified type F41.9 [place] [address] [address] Oct, Anxiety state F41.1 ; ADHD (attention de ficit hyperactivity disorder), combined type F90.2 ; Major depressive disorder, single episode, mild F32.0 and Anxiety disorder, unspecified type F41.9 [place] [address] [address] Oct, ADHD (attention deficit hyperactivity di sorder), combined type F90.2 ; Major depressive disorder, single episode, mild F32.0 and Anxiety disorder, unspecified type F41.9 [place] [address] [address] Oct, Major depressive disorder, single episod e, mild F32.0 ; Anxiety state F41.1 ; ADHD (attention deficit hyperactivity disorder), combined type F90.2 and Depressive disorder, not elsewhere classified F32.9 [facility] [address] [place] [id number] [place] [address] Oct, [facility] [address] [place] [id number] [place] [address] Oct, Cellulitis L03.90 and Planta r wart of right foot B07.[address] [address] Aug, ADHD (attention deficit hyperactivity di sorder), combined type F90.2 ; Major depressive disorder, single episode, mild F32.0 and Anxiety disorder, unspecified type F41.9 [place] [address] [address] Aug, [facility] [address] [address] Jul, ADHD (attention deficit hyperactivity di sorder), combined type F90.2 [facility] [address] [address] Jul, Mesenteric adenitis I88.0 [facility] [address] [address] June, [facility] [address] [place] [id number] [address] [place] [address] June, Lower abdominal pain R10.30 [place] [address] [address] June, [place] [address] [address] June, ADHD (attention deficit hyperactivity di sorder), combined type F90.2 and Major depressive disorder, single episode, mild F32.0 [facility] [address] [address] May, [place] [address] [address] May, ADHD (attention deficit hyperactivity di sorder), combined type F90.2 and Major depressive disorder, single episode, mild F32.0 [facility] [address] [place] [id number] [address] [place] [address] Apr, Abdominal pain R10.9 and Gas troenteritis and colitis, viral A08.4 [facility] [address] [address] Apr, [facility] [address] [place] [id number] [address] [place] [address] Mar, Acute urticaria L50.8 [facility] [address] [address] Mar, [facility] [address] [address] Feb, [facility] [address] [place] [id number] [address] [place] [address] Feb, Gastroenteritis K52.9 [facility] [address] [address] Feb, Irritant contact dermatitis due to awais tics L24.3 [place] [address] [address] Jan, [place] [address] [address] Jan, [place] [address] [address] Jan, ADHD (attention deficit hyperactivity di sorder), combined type F90.2 and Major depressive disorder, single episode, mild F32.0 [facility] [address] [address] Dec, Flexural eczema L20.82 [place] [address] [address] Dec, Encounter for test Z32.00 [place] [address] [address] Dec, [place] [address] [address] Dec, [place] [address] [address] Dec, [facility] [address] [place] [id number] [address] [place] [address] Nov, Sore throat J02.9 and Pharyn gitis, unspecified etiology J02.9 [place] [address] [address] Nov, [place] [address] [address] Nov, [facility] [address] [id number] [place] [address] Nov, Generalized abdominal pain R10.84 and Sl ow transit constipation K59.01 [facility] [address] [facility] [id number] [place] [id number] Nov, Pharyngitis, unspecified etiology J02.9 and Rhinitis, unspecified type J31.0 [facility] [address] [place] [id number] [place] [address] Oct, Depressive disorder, not elsewhere class ified F32.9 and ADHD (attention deficit hyperactivity disorder), combined type F90.2 [facility] [address] [address] Oct, [facility] [address] [address] Oct, [facility] [address] [facility] [id number] [address] [place] [address] Oct, Strep throat J02.0 [facility] [address] [place] [id number] [place] [address] Oct, [place] [address] [address] Oct, Well woman exam with routine gynecologic al exam Z01.419 and Screening for STD sexually transmitted disease Z11.3 [facility] [address] [place] [id number] [place] [address] Sep, ADHD (attention deficit hyperactivity di sorder), combined type F90.2 ; Anxiety state F41.1 and Depressive disorder, not elsewhere classified F32.9 [facility] [address] [address] Sep, ADHD (attention deficit hyperactivity di sorder), combined type F90.2 and Depressive disorder, not elsewhere classified F32.9 [facility] [address] [address] Aug, [facility] [address] [place] [id number] [place] [address] Aug, ADHD (attention deficit hyperactivity di sorder), combined type F90.2 and Depressive disorder, not elsewhere classified F32.9 [facility] [address] [place] [id number] [place] [address] Aug, ADHD (attention deficit hyperactivity di sorder), combined type F90.2 ; Anxiety state F41.1 and Depressive disorder, not elsewhere classified F32.9 [place] [address] [address] Aug, [place] [address] [address] Aug, [place] [address] [address] Jul, ADHD (attention deficit hyperactivity di sorder), combined type F90.2 ; Depressive disorder, not elsewhere classified F32.9 and Anxiety state F41.1 [place] [address] [address] Jul, [place] [address] [address] Jul, ADHD (attention deficit hyperactivity di sorder), combined type F90.2 ; Anxiety state F41.1 and Depressive disorder, not elsewhere classified F32.9 [place] [address] [place] [id number] [place] [address] June, [facility] [address] [id number] [place] [id number] June, Constipation K59.00 [facility] [address] [place] [id number] [place] [address] May, Constipation K59.00 [facility] [address] [facility] [id number] [address] [place] [address] May, Irritable bowel syndrome wit h diarrhea K58.0 [facility] [address] [address] 15 May, 2015 [facility] [address] [id number] [place] [address] 15 May, 2015 [facility] [address] [id number] [place] [address] 14 May, 2014 [facility] [address] [id number] [place] [address] 13 May, 2014 [facility] [address] [id number] [place] [address] Jan, [facility] [address] [id number] [place] [address] Jan, [facility] [address] [id number] [place] [address] Jan, [facility] [address] [id number] [place] [address] Jan, [facility] [address] [id number] [place] [address] Jan, [facility] [address] [id number] [place] [address] Jan, [facility] [address] [id number] [place] [address] Nov, [facility] [address] [id number] [place] [address] Nov, [facility] [address] [id number] [place] [address] Oct, [facility] [address] [id number] [place] [address] Oct, [facility] [address] [id number] [place] [address] Sep, [facility] [address] [id number] [place] [address] Sep, [facility] [address] [id number] [place] [address] Aug, [facility] [address] [id number] [place] [address] Aug, 2013 [facility] [address] [id number] [place] [address] Aug, [facility] [address] [facility] [id number] [place] [address] Aug, [facility] [address] [id number] [place] [address] Aug, 2013 [facility] [address] [facility] [id number] [place] [address] Aug, 2013 [facility] [address] [facility] [id number] [place] [address] Aug, [facility] [address] [id number] [place] [address] Aug, [facility] [address] [id number] [place] [address] Jul, [facility] [address] [id number] [place] [address] Jul, [facility] [address] [id number] [place] [address] Jul, [facility] [address] [id number] [place] [address] Jul, [facility] [address] [id number] [place] [address] Jul, [facility] [address] [id number] [place] [address] Jul, [facility] [address] [id number] [place] [address] Jul, [facility] [address] [id number] [place] [address] Jul, [facility] [address] [id number] [place] [address] Jul, [facility] [address] [id number] [place] [address] June, [facility] [address] [id number] [place] [address] June, [facility] [address] [id number] [place] [address] May, [facility] [address] [id number] [place] [address] May, [facility] [address] [id number] [place] [address] May, [facility] [address] [id number] [place] [address] May, [facility] [address] [id number] [place] [address] May, [facility] [address] [id number] [place] [address] May, [facility] [address] [id number] [place] [address] May, [facility] [address] [id number] [place] [address] May, [facility] [address] [id number] [place] [address] May, [facility] [address] [id number] [place] [address] May, [facility] [address] [id number] [place] [address] May, [facility] [address] [id number] [place] [address] May, [facility] [address] [id number] [place] [address] Apr, [facility] [address] [id number] [place] [address] Apr, [facility] [address] [id number] [place] [address] Apr, [facility] [address] [id number] [place] [address] Apr, [facility] [address] [facility] [id number] [facility] [address] Mar, [facility] [address] [facility] [id number] [facility] [address] Mar, [facility] [address] [id number] [place] [address] Mar, [facility] [address] [facility] [id number] [place] [address] Mar, [facility] [address] [facility] [id number] [place] [address] Mar, [facility] [address] [id number] [place] [address] Mar, [facility] [address] [id number] [place] [address] Mar, [facility] [address] [id number] [place] [address] Mar, 2013 [facility] [address] [id number] [place] [address] Mar, [facility] [address] [id number] [place] [address] Mar, [facility] [address] [id number] [place] [address] 14 Mar, 2013 [facility] [address] [id number] [place] [address] 14 Mar, 2013 [facility] [address] [facility] [id number] [place] [address] 13 Mar, 2013 [facility] [address] [id number] [place] [address] Mar, 2013 [facility] [address] [id number] [place] [address] Mar, [facility] [address] [id number] [place] [address] Mar, [facility] [address] [facility] [id number] [place] [address] Mar, [facility] [address] [facility] [id number] [place] [address] Mar, [facility] [address] [facility] [id number] [place] [address] Mar, [facility] [address] [id number] [place] [address] Mar, [facility] [address] [facility] [id number] [place] [address] Feb, [facility] [address] [id number] [place] [address] Feb, [facility] [address] [id number] [place] [address] Feb, [facility] [address] [id number] [place] [address] Feb, [facility] [address] [id number] [place] [address] Feb, [facility] [address] [id number] [place] [address] Feb, [facility] [address] [id number] [place] [address] Feb, [facility] [address] [id number] [place] [address] Feb, [facility] [address] [id number] [place] [address] Feb, [facility] [address] [id number] [place] [address] Feb, [facility] [address] [id number] [place] [address] Feb, [facility] [address] [id number] [place] [address] Feb, [facility] [address] [id number] [place] [address] 17 Feb, 2013 [facility] [address] [id number] [place] [address] 16 Feb, 2013 [facility] [address] [id number] [place] [address] 16 Feb, 2013 [facility] [address] [id number] [place] [address] 15 Feb, 2013 [facility] [address] [id number] [place] [address] 15 Feb, 2013 [facility] [address] [id number] [place] [address] 15 Feb, 2013 [facility] [address] [id number] [place] [address] 15 Feb, 2013 [facility] [address] [id number] [place] [address] Feb, [facility] [address] [id number] [place] [address] Feb, [facility] [address] [id number] [place] [address] Feb, [facility] [address] [id number] [place] [address] Feb, [facility] [address] [id number] [place] [address] 24 Jan, 2013 [facility] [address] [id number] [place] [address] 24 Jan, 2013 [facility] [address] [id number] [place] [address] 19 Jan, 2013 [facility] [address] [id number] [place] [address] 18 Jan, 2013 [facility] [address] [id number] [place] [address] 18 Jan, 2013 [facility] [address] [id number] [place] [address] 18 Jan, 2013 [facility] [address] [id number] [place] [address] 18 Jan, 2012 [facility] [address] [id number] [place] [address] Jan, [facility] [address] [id number] [place] [address] Jan, [facility] [address] [id number] [place] [address] Jan, [facility] [address] [id number] [place] [address] Jan, [facility] [address] [id number] [place] [address] Jan, [facility] [address] [id number] [place] [address] Jan, [facility] [id number] [place] [address] Dec, [facility] [address] [id number] [place] [address] Dec, [facility] [address] [id number] [place] [address] Dec, [facility] [address] [id number] [place] [address] Dec, [facility] [id number] [place] [address] 15 Dec, 2012 [facility] [address] [id number] [place] [address] 15 Dec, 2012 [facility] [address] [id number] [place] [address] Nov, [facility] [id number] [place] [address] Nov, [facility] [address] [id number] [place] [address] Nov, [facility] [address] [id number] [place] [address] Nov, [facility] [address] [id number] [place] [address] Nov, [facility] [address] [id number] [place] [address] Nov, [facility] [address] [id number] [place] [address] 28 Oct, 2012 [facility] [id number] [place] [address] Oct, [facility] [id number] [place] [address] Oct, [facility] [id number] [place] [address] Oct, [facility] [address] [id number] [place] [address] Oct, [facility] [id number] [place] [address] 18 Oct, 2012 [facility] [address] [id number] [place] [address] Oct, IMMUNIZATIONS No Known Immunizations SOCIAL HISTORY [...]
--- OUTSIDE RECORDS SUMMARY | 2019-06-25 21:23 | XMS REPORT ---
Author Author Sheyla JURADO Organization [facility] Address [address] [place] [address] Care Team Providers Care Sort Line Worker Name Role Phone RHIANNON GENARO Unavailable PROBLEMS Type Condition ICD9-CM Code DYT97-HD Code Onset Dates Condition S tatus SNOMED Code Problem ADHD (attention deficit hyperactivity disorder), combi amparo type F90.2 Active 51754864 Problem Unspecified mood [affective] disorder F39 Active 38593099 Problem Intrinsic atopic dermatitis L20.84 Ac tive 59126605 Problem Slow transit constipation K59.01 Acti ve 48016432 Problem Anxiety disorder, unspecified type F41.9 Active 542606839 Problem Major depressive disorder, single episode, mild F3 2.0 Active 42511104 Problem Irritable bowel syndrome with diarrhea K58.0 Active 291494990 ALLERGIES No Information ENCOUNTERS Encounter Location Date Diagnosis [place] [address] [address] May, [facility] [address] [address] May, [facility] [address] [address] Apr, [facility] [address] [address] Apr, [facility] [address] [address] Apr, [facility] [address] [address] Apr, Gestational diabetes O24.419 [facility] [address] [address] Apr, [facility] [address] [address] Apr, Abnormal glucose tolerance in O99.810 [facility] [address] [address] Mar, Abnormal glucose tolerance in O99.810 [facility] [address] [address] Mar, Second trimester Z33.1 ; Nause a and vomiting during O21.9 and 27 weeks gestation of Z3A.27 [facility] [address] [address] Mar, [facility] [address] [place] [id number] [address] [place] [address] Mar, Non-intractable vomiting wit h nausea, unspecified vomiting type R11.2 [place] [address] [address] Feb, [facility] [address] [address] Feb, Second trimester Z33.1 [place] [address] [address] 13 Feb, 2019 Second trimester Z34.92 ; 21 w eeks gestation of Z3A.21 and Exposure to STD Z20.2 [place] [address] [address] Feb, Second trimester Z33.1 [facility] [address] [facility] [id number] [address] [place] [address] Feb, Non-intractable vomiting wit h nausea, unspecified vomiting type R11.2 [place] [address] [address] Jan, [place] [address] [address] Jan, [place] [address] [address] Jan, First trimester Z34.91 [facility] [address] [place] [id number] [place] [address] 16 Jan, 2019 Second trimester Z34.92 and In trinsic atopic dermatitis L20.84 [facility] [address] [place] [id number] [place] [address] Dec, First trimester Z34.91 [facility] [address] [place] [id number] [place] [address] Dec, Second trimester Z34.92 and Karen alvarez history of neural tube defect Z82.0 [place] [address] [address] 18 Dec, 2018 [place] [address] [place] [id number] [place] [address] 13 Dec, 2018 Second trimester Z34.92 ; Fami ly history of neural tube defect Z82.0 ; History of asthma Z87.09 and Wheezing R06.2 [facility] [address] [place] [id number] [place] [address] 08 Dec, 2018 [facility] [address] [place] [id number] [address] Dec, [place] [address] [place] [id number] [place] [address] Nov, care, subsequent in f irst trimester Z34.81 [place] [address] [place] [id number] [place] [address] 24 Nov, 2018 First trimester Z34.91 ; 10 we eks gestation of Z3A.10 and Nausea and vomiting during O21.[address] [address] 14 Nov, 2018 care, subsequent in f irst trimester Z34.81 [facility] [address] [facility] [id number] [address] [place] [address] 05 Nov, 2018 Vomiting O21.9 [facility] [address] [place] [id number] [place] [address] Oct, care, subsequent in f irst trimester Z34.81 and 6 weeks gestation of Z3A.01 [place] [address] [id number] [place] [address] Oct, [facility] [address] [facility] [id number] [address] [address] Oct, Heat rash L74.0 [place] [address] [address] Aug, UTI symptoms R39.9 [place] [address] [address] Aug, [place] [address] [address] Aug, UTI symptoms R39.9 [place] [address] [address] Aug, Hematuria, unspecified type R31.9 [facility] [address] [facility] [id number] [address] [address] Jul, Sore throat J02.9 ; UTI symp toms R39.9 and Hematuria, unspecified type R31.9 [place] [address] [place] [id number] [place] [address] June, Irritable bowel syndrome with diarrhea K 58.0 and Major depressive disorder, single episode, mild F32.0 [place] [address] [place] [id number] [place] [address] June, ADHD (attention deficit hyperactivity di sorder), combined type F90.2 ; Anxiety disorder, unspecified type F41.9 and Unspecified mood [affective] disorder F39 [place] [address] [facility] [place] [address] May, ADHD (attention deficit hyperactivity di sorder), combined type F90.2 ; Anxiety disorder, unspecified type F41.9 ; Unspecified mood [affective] disorder F39 and Other long term care social worker (current) 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 Z79.899 [facility] [address] [address] May, Slow transit constipation K59.01 [facility] [address] [address] May, ADHD (attention deficit hyperactivity di sorder), combined type F90.2 [facility] [address] [address] May, [facility] [address] [address] May, Abdominal pain R10.9 [facility] [address] [address] Apr, [facility] [address] [address] Apr, [facility] [address] [address] Apr, ADHD (attention deficit hyperactivity di sorder), combined type F90.2 [facility] [address] [address] Apr, Abdominal pain R10.9 [facility] [address] [address] Apr, [facility] [address] [address] Mar, [facility] [address] [address] Mar, ADHD (attention deficit hyperactivity di sorder), combined type F90.2 ; Anxiety disorder, unspecified type F41.9 and Unspecified mood [affective] disorder F39 [facility] [address] [address] Mar, Viral gastroenteritis A08.4 and Slow tra nsit constipation K59.01 [facility] [address] [facility] [id number] [place] [address] Mar, Viral gastroenteritis A08.4 [facility] [address] [address] Mar, ADHD (attention deficit hyperactivity di sorder), combined type F90.2 [facility] [address] [address] Feb, Slow transit constipation K59.01 ; Misse d period N92.6 and Nausea R11.0 [facility] [address] [address] Feb, ADHD (attention deficit hyperactivity di sorder), combined type F90.2 [facility] [address] [place] [id number] [address] [place] [address] Jan, Nausea R11.0 and Viral upper respiratory tract infection J06.9 [place] [address] [address] Jan, [place] [address] [address] Jan, ADHD (attention deficit hyperactivity di sorder), combined type F90.2 ; Anxiety disorder, unspecified type F41.9 and Unspecified mood [affective] disorder F39 [place] [address] [address] Jan, Well woman exam with routine gynecologic al exam Z01.419 ; Routine screening for STI (sexually transmitted infection) Z11.3 and Vaginal jose B37.3 [place] [address] [address] Dec, [place] [address] [address] Dec, [place] [address] [address] Dec, ADHD (attention deficit hyperactivity di sorder), combined type F90.2 ; Anxiety disorder, unspecified type F41.9 and Unspecified mood [affective] disorder F39 [facility] [address] [place] [id number] [place] [address] Dec, Unspecified mood [affective] disorder F3 9 ; Anxiety disorder, unspecified type F41.9 and ADHD (attention deficit hyperactivity disorder), combined type F90.2 [facility] [address] [facility] [id number] [address] [place] [address] Nov, Other specified bacterial ag ents as the cause of diseases classified elsewhere B96.89 and Otitis media, unspecified, bilateral H66.93 [facility] [address] [facility] [id number] [address] [place] [address] Nov, Sore throat J02.9 and Acute nasopharyngitis J00 [facility] [address] [place] [id number] [place] [address] Nov, ADHD (attention deficit hyperactivity di sorder), combined type F90.2 ; Anxiety disorder, unspecified type F41.9 and Unspecified mood [affective] disorder F39 [facility] [address] [address] Oct, ADHD (attention deficit hyperactivity di sorder), combined type F90.2 [place] [address] [place] [id number] [place] [address] Oct, ADHD (attention deficit hyperactivity di sorder), combined type F90.2 ; Anxiety disorder, unspecified type F41.9 and Unspecified mood [affective] disorder F39 [facility] [address] [place] [id number] [place] [address] Sep, ADHD (attention deficit hyperactivity di sorder), combined type F90.2 [place] [address] [address] Sep, [place] [address] [address] Aug, ADHD (attention deficit hyperactivity di sorder), combined type F90.2 ; Major depressive disorder, single episode, mild F32.0 and Anxiety disorder, unspecified type F41.9 [facility] [address] [facility] [id number] [address] [place] [address] Aug, Sore throat J02.9 ; Other sp ecified bacterial agents as the cause of diseases classified elsewhere B96.89 and Acute tonsillitis due to other specified organisms J03.80 [facility] [address] [address] Aug, ADHD (attention deficit hyperactivity di sorder), combined type F90.2 [facility] [address] [address] Jul, ADHD (attention deficit hyperactivity di sorder), combined type F90.2 [facility] [address] [address] June, ADHD (attention deficit hyperactivity di sorder), combined type F90.2 ; Major depressive disorder, single episode, mild F32.0 and Anxiety disorder, unspecified type F41.9 [facility] [address] [address] June, [place] [address] [address] June, ADHD (attention deficit hyperactivity di sorder), combined type F90.2 [facility] [address] [address] May, [facility] [address] [address] May, ADHD (attention deficit hyperactivity di sorder), combined type F90.2 ; Major depressive disorder, single episode, mild F32.0 and Anxiety disorder, unspecified type F41.9 [facility] [address] [address] May, Anxiety disorder, unspecified type F41.9 [facility] [address] [address] Apr, [facility] [address] [address] Apr, Anxiety disorder, unspecified type F41.9 [place] [address] [address] Apr, Anxiety disorder, unspecified type F41.9 ; Major depressive disorder, single episode, mild F32.0 and ADHD (attention deficit hyperactivity disorder), combined type F90.2 [place] [address] [address] Apr, [place] [address] [address] Apr, ADHD (attention deficit hyperactivity di sorder), combined type F90.2 ; Anxiety state F41.1 ; Depressive disorder, not elsewhere classified F32.9 ; Major depressive disorder, single episode, mild F32.0 and Anxiety disorder, unspecified type F41.9 [place] [address] [address] Mar, ADHD (attention deficit hyperactivity di sorder), combined type F90.2 [place] [address] [address] Mar, Nausea R11.0 [place] [address] [address] 13 Mar, 2017 Screening for STD sexually transmitted d isease Z11.3 ; Vaginal candidiasis B37.3 and Irritable bowel syndrome with diarrhea K58.0 [place] [address] [address] 04 Mar, 2017 [place] [address] [address] Feb, ADHD (attention deficit hyperactivity di sorder), combined type F90.2 [place] [address] [address] Feb, Depressive disorder, not elsewhere class ified F32.9 ; Anxiety state F41.1 and ADHD (attention deficit hyperactivity disorder), combined type F90.2 [place] [address] [address] Feb, Depressive disorder, not elsewhere class ified F32.9 ; Anxiety state F41.1 and ADHD (attention deficit hyperactivity disorder), combined type F90.2 [facility] [address] [address] Feb, ADHD (attention deficit hyperactivity di sorder), combined type F90.2 [facility] [address] [facility] [id number] [address] [place] [address] Jan, Other viral agents as the ca use of diseases classified elsewhere B97.89 and Acute upper respiratory infection, unspecified J06.9 [place] [address] [address] Jan, ADHD (attention deficit hyperactivity di sorder), combined type F90.2 ; Major depressive disorder, single episode, mild F32.0 and Anxiety disorder, unspecified type F41.9 [place] [address] [address] Jan, [place] [address] [address] Jan, ADHD (attention deficit hyperactivity di sorder), combined type F90.2 ; Major depressive disorder, single episode, mild F32.0 and Anxiety disorder, unspecified type F41.9 [place] [address] [address] Dec, Irritable bowel syndrome with diarrhea K 58.0 and Lower abdominal pain R10.30 [place] [address] [address] Dec, Hospital discharge follow-up Z09 ; Mesen teric adenitis I88.0 ; IBD (inflammatory bowel disease) K52.9 and Nausea R11.0 [place] [address] [address] Nov, ADHD (attention deficit hyperactivity di sorder), combined type F90.2 ; Major depressive disorder, single episode, mild F32.0 and Anxiety disorder, unspecified type F41.9 [place] [address] [address] Nov, Anxiety state F41.1 ; ADHD (attention de ficit hyperactivity disorder), combined type F90.2 ; Major depressive disorder, single episode, mild F32.0 and Anxiety disorder, unspecified type F41.9 [place] [address] [address] Oct, Anxiety state F41.1 ; ADHD (attention de ficit hyperactivity disorder), combined type F90.2 ; Major depressive disorder, single episode, mild F32.0 and Anxiety disorder, unspecified type F41.9 [place] [address] [address] Oct, ADHD (attention deficit hyperactivity di sorder), combined type F90.2 ; Major depressive disorder, single episode, mild F32.0 and Anxiety disorder, unspecified type F41.9 [place] [address] [address] Oct, Major depressive disorder, single episod e, mild F32.0 ; Anxiety state F41.1 ; ADHD (attention deficit hyperactivity disorder), combined type F90.2 and Depressive disorder, not elsewhere classified F32.9 [facility] [address] [place] [id number] [place] [address] Oct, [facility] [address] [place] [id number] [place] [address] Oct, Cellulitis L03.90 and Planta r wart of right foot B07.[address] [address] Aug, ADHD (attention deficit hyperactivity di sorder), combined type F90.2 ; Major depressive disorder, single episode, mild F32.0 and Anxiety disorder, unspecified type F41.9 [place] [address] [address] Aug, [facility] [address] [address] Jul, ADHD (attention deficit hyperactivity di sorder), combined type F90.2 [facility] [address] [address] Jul, Mesenteric adenitis I88.0 [facility] [address] [address] June, [facility] [address] [place] [id number] [place] [address] June, Lower abdominal pain R10.30 [place] [address] [address] June, [place] [address] [address] June, ADHD (attention deficit hyperactivity di sorder), combined type F90.2 and Major depressive disorder, single episode, mild F32.0 [facility] [address] [address] May, [place] [address] [address] May, ADHD (attention deficit hyperactivity di sorder), combined type F90.2 and Major depressive disorder, single episode, mild F32.0 [facility] [address] [place] [id number] [place] [address] Apr, Abdominal pain R10.9 and Gas troenteritis and colitis, viral A08.4 [facility] [address] [address] Apr, [facility] [address] [place] [id number] [place] [address] Mar, Acute urticaria L50.8 [facility] [address] [address] Mar, [facility] [address] [address] Feb, [facility] [address] [place] [id number] [place] [address] Feb, Gastroenteritis K52.9 [facility] [address] [address] Feb, Irritant contact dermatitis due to awais tics L24.3 [place] [address] [address] Jan, [place] [address] [address] Jan, [place] [address] [address] Jan, ADHD (attention deficit hyperactivity di sorder), combined type F90.2 and Major depressive disorder, single episode, mild F32.0 [facility] [address] [address] Dec, Flexural eczema L20.82 [place] [address] [address] Dec, Encounter for test Z32.00 [place] [address] [address] Dec, [place] [address] [address] Dec, [place] [address] [address] Dec, [facility] [address] [place] [id number] [place] [address] Nov, Sore throat J02.9 and Pharyn gitis, unspecified etiology J02.9 [place] [address] [address] Nov, [place] [address] [address] Nov, [facility] [address] [id number] [place] [address] Nov, Generalized abdominal pain R10.84 and Sl ow transit constipation K59.01 [facility] [address] [facility] [id number] [place] [id number] Nov, Pharyngitis, unspecified etiology J02.9 and Rhinitis, unspecified type J31.0 [facility] [address] [place] [id number] [place] [address] Oct, Depressive disorder, not elsewhere class ified F32.9 and ADHD (attention deficit hyperactivity disorder), combined type F90.2 [facility] [address] [address] Oct, [facility] [address] [address] Oct, [facility] [address] [facility] [id number] [address] [place] [address] Oct, Strep throat J02.0 [facility] [address] [place] [id number] [place] [address] Oct, [place] [address] [address] Oct, Well woman exam with routine gynecologic al exam Z01.419 and Screening for STD sexually transmitted disease Z11.3 [facility] [address] [place] [id number] [place] [address] Sep, ADHD (attention deficit hyperactivity di sorder), combined type F90.2 ; Anxiety state F41.1 and Depressive disorder, not elsewhere classified F32.9 [facility] [address] [address] Sep, ADHD (attention deficit hyperactivity di sorder), combined type F90.2 and Depressive disorder, not elsewhere classified F32.9 [facility] [address] [address] Aug, [facility] [address] [place] [id number] [place] [address] Aug, ADHD (attention deficit hyperactivity di sorder), combined type F90.2 and Depressive disorder, not elsewhere classified F32.9 [facility] [address] [place] [id number] [place] [address] Aug, ADHD (attention deficit hyperactivity di sorder), combined type F90.2 ; Anxiety state F41.1 and Depressive disorder, not elsewhere classified F32.9 [place] [address] [address] Aug, [place] [address] [address] Aug, [place] [address] [address] Jul, ADHD (attention deficit hyperactivity di sorder), combined type F90.2 ; Depressive disorder, not elsewhere classified F32.9 and Anxiety state F41.1 [place] [address] [address] Jul, [place] [address] [address] Jul, ADHD (attention deficit hyperactivity di sorder), combined type F90.2 ; Anxiety state F41.1 and Depressive disorder, not elsewhere classified F32.9 [place] [address] [place] [id number] [place] [address] June, [facility] [address] [id number] [place] [id number] June, Constipation K59.00 [facility] [address] [place] [id number] [place] [address] May, Constipation K59.00 [facility] [address] [facility] [id number] [address] [place] [address] May, Irritable bowel syndrome wit h diarrhea K58.0 [facility] [address] [address] 15 May, 2015 [facility] [address] [id number] [place] [address] 15 May, 2015 [facility] [address] [id number] [place] [address] 14 May, 2014 [facility] [address] [id number] [place] [address] 13 May, 2014 [facility] [address] [id number] [place] [address] Jan, [facility] [address] [id number] [place] [address] Jan, [facility] [facility] [address] [id number] [place] [address] Jan, [facility] [address] [id number] [place] [address] Jan, [facility] [address] [id number] [place] [address] Jan, [facility] [address] [id number] [place] [address] Jan, [facility] [address] [id number] [place] [address] Nov, [facility] [address] [id number] [place] [address] Nov, [facility] [address] [id number] [place] [address] Oct, [facility] [address] [id number] [place] [address] Oct, [facility] [address] [id number] [place] [address] Sep, [facility] [address] [id number] [place] [address] Sep, [facility] [address] [id number] [place] [address] Aug, [facility] [address] [id number] [place] [address] Aug, 2013 [facility] [address] [id number] [place] [address] Aug, [facility] [address] [facility] [id number] [place] [address] Aug, [facility] [address] [id number] [place] [address] Aug, 2013 [facility] [address] [facility] [id number] [place] [address] Aug, 2013 [facility] [address] [facility] [id number] [place] [address] Aug, [facility] [address] [id number] [place] [address] Aug, [facility] [address] [id number] [place] [address] Jul, [facility] [address] [id number] [place] [address] Jul, [facility] [address] [id number] [place] [address] Jul, [facility] [address] [id number] [place] [address] Jul, [facility] [address] [id number] [place] [address] Jul, [facility] [address] [id number] [place] [address] Jul, [facility] [address] [id number] [place] [address] Jul, [facility] [address] [id number] [place] [address] Jul, [facility] [address] [id number] [place] [address] Jul, [facility] [address] [id number] [place] [address] June, [facility] [address] [id number] [place] [address] June, [facility] [address] [id number] [place] [address] May, [facility] [address] [id number] [place] [address] May, [facility] [address] [id number] [place] [address] May, [facility] [address] [id number] [place] [address] May, [facility] [address] [id number] [place] [address] May, [facility] [address] [id number] [place] [address] May, [facility] [address] [id number] [place] [address] May, [facility] [address] [id number] [place] [address] May, [facility] [address] [id number] [place] [address] May, [facility] [address] [id number] [place] [address] May, [facility] [address] [id number] [place] [address] May, [facility] [address] [id number] [place] [address] May, [facility] [address] [id number] [place] [address] Apr, [facility] [address] [id number] [place] [address] Apr, [facility] [address] [id number] [place] [address] Apr, [facility] [address] [id number] [place] [address] Apr, [facility] [address] [facility] [id number] [facility] [address] Mar, [facility] [address] [facility] [id number] [facility] [address] Mar, [facility] [address] [id number] [place] [address] Mar, [facility] [address] [facility] [id number] [place] [address] Mar, [facility] [address] [facility] [id number] [place] [address] Mar, [facility] [address] [id number] [place] [address] Mar, [facility] [address] [id number] [place] [address] Mar, [facility] [address] [id number] [place] [address] Mar, 2013 [facility] [address] [id number] [place] [address] Mar, [facility] [address] [id number] [place] [address] Mar, [facility] [address] [id number] [place] [address] 14 Mar, 2013 [facility] [address] [id number] [place] [address] 14 Mar, 2013 [facility] [address] [facility] [id number] [place] [address] 13 Mar, 2013 [facility] [address] [id number] [place] [address] Mar, 2013 [facility] [address] [id number] [place] [address] Mar, [facility] [address] [id number] [place] [address] Mar, [facility] [address] [facility] [id number] [place] [address] Mar, [facility] [address] [facility] [id number] [place] [address] Mar, [facility] [address] [facility] [id number] [place] [address] Mar, [facility] [address] [id number] [place] [address] Mar, [facility] [address] [facility] [id number] [place] [address] Feb, [facility] [address] [id number] [place] [address] Feb, [facility] [address] [id number] [place] [address] Feb, [facility] [address] [id number] [place] [address] Feb, [facility] [address] [id number] [place] [address] Feb, [facility] [address] [id number] [place] [address] Feb, [facility] [address] [id number] [place] [address] Feb, [facility] [address] [id number] [place] [address] Feb, [facility] [address] [id number] [place] [address] Feb, [facility] [address] [id number] [place] [address] Feb, [facility] [address] [id number] [place] [address] Feb, [facility] [address] [id number] [place] [address] Feb, [facility] [address] [id number] [place] [address] 17 Feb, 2013 [facility] [address] [id number] [place] [address] 16 Feb, 2013 [facility] [address] [id number] [place] [address] 16 Feb, 2013 [facility] [address] [id number] [place] [address] 15 Feb, 2013 [facility] [address] [id number] [place] [address] 15 Feb, 2013 [facility] [address] [id number] [place] [address] 15 Feb, 2013 [facility] [address] [id number] [place] [address] 15 Feb, 2013 [facility] [address] [id number] [place] [address] Feb, [facility] [address] [id number] [place] [address] Feb, [facility] [address] [id number] [place] [address] Feb, [facility] [address] [id number] [place] [address] Feb, [facility] [address] [id number] [place] [address] 24 Jan, 2013 [facility] [address] [id number] [place] [address] 24 Jan, 2013 [facility] [address] [id number] [place] [address] 19 Jan, 2013 [facility] [address] [id number] [place] [address] 18 Jan, 2013 [facility] [address] [id number] [place] [address] 18 Jan, 2013 [facility] [address] [id number] [place] [address] 18 Jan, 2013 [facility] [address] [id number] [place] [address] 18 Jan, 2012 [facility] [address] [id number] [place] [address] Jan, [facility] [address] [id number] [place] [address] Jan, [facility] [address] [id number] [place] [address] Jan, [facility] [address] [id number] [place] [address] Jan, [facility] [address] [id number] [place] [address] Jan, [facility] [address] [id number] [place] [address] Jan, [facility] [id number] [place] [address] Dec, [facility] [address] [id number] [place] [address] Dec, [facility] [address] [id number] [place] [address] Dec, [facility] [address] [id number] [place] [address] Dec, [facility] [id number] [place] [address] 15 Dec, 2012 [facility] [address] [id number] [place] [address] 15 Dec, 2012 [facility] [address] [id number] [place] [address] Nov, [facility] [id number] [place] [address] Nov, [facility] [address] [id number] [place] [address] Nov, [facility] [address] [id number] [place] [address] Nov, [facility] [address] [id number] [place] [address] Nov, [facility] [address] [id number] [place] [address] Nov, [facility] [address] [id number] [place] [address] 28 Oct, 2012 [facility] [id number] [place] [address] Oct, [facility] [id number] [place] [address] Oct, [facility] [id number] [place] [address] Oct, [facility] [address] [id number] [place] [address] Oct, [facility] [id number] [place] [address] 18 Oct, 2012 [facility] [address] [id number] [place] [address] Oct, IMMUNIZATIONS No Known Immunizations SOCIAL HISTORY [...]
--- OUTSIDE RECORDS SUMMARY | 2019-06-25 21:23 | XMS REPORT ---
Author Author Sheyla JURADO Organization [facility] Address [address] [place] [address] Care Team Providers Care Radio Interference Investigator Name Role Phone RHIANNON GENARO Unavailable PROBLEMS Type Condition ICD9-CM Code FIY11-MW Code Onset Dates Condition S tatus SNOMED Code Problem ADHD (attention deficit hyperactivity disorder), combi amparo type F90.2 Active 95905900 Problem Unspecified mood [affective] disorder F39 Active 00735265 Problem Intrinsic atopic dermatitis L20.84 Ac tive 98224645 Problem Slow transit constipation K59.01 Acti ve 55889585 Problem Anxiety disorder, unspecified type F41.9 Active 223236188 Problem Major depressive disorder, single episode, mild F3 2.0 Active 31580899 Problem Irritable bowel syndrome with diarrhea K58.0 Active [id number] ALLERGIES No Information ENCOUNTERS Encounter Location Date Diagnosis [place] [address] [address] May, [facility] [address] [address] May, [facility] [address] [address] Apr, [facility] [address] [address] Apr, [facility] [address] [address] Apr, Gestational diabetes O24.419 [facility] [address] [address] Apr, [facility] [address] [address] Apr, Abnormal glucose tolerance in O99.810 [place] [address] [place] [id number] [place] [address] 27 Mar, 2019 Abnormal glucose tolerance in O99.810 [place] [address] [address] Mar, Second trimester Z33.1 ; Nause a and vomiting during O21.9 and 27 weeks gestation of Z3A.27 [place] [address] [address] Mar, [facility] [address] [place] [id number] [address] [place] [address] Mar, Non-intractable vomiting wit h nausea, unspecified vomiting type R11.2 [place] [address] [address] Feb, [place] [address] [address] Feb, Second trimester Z33.1 [place] [address] [address] Feb, Second trimester Z34.92 ; 21 w eeks gestation of Z3A.21 and Exposure to STD Z20.2 [place] [address] [place] [id number] [place] [address] 07 Feb, 2019 Second trimester Z33.1 [facility] [address] [facility] [id number] [address] [place] [address] Feb, Non-intractable vomiting wit h nausea, unspecified vomiting type R11.2 [place] [address] [address] Jan, [address] [address] Jan, [place] [address] [address] Jan, First trimester Z34.[address] [address] 16 Jan, 2019 Second trimester Z34.92 and In trinsic atopic dermatitis L20.84 [place] [address] [address] 27 Dec, 2018 First trimester Z34.91 [place] [address] [address] Dec, Second trimester Z34.92 and Karen alvarez history of neural tube defect Z82.0 [place] [address] [address] 18 Dec, [address] [address] 13 Dec, 2018 Second trimester Z34.92 ; Fami ly history of neural tube defect Z82.0 ; History of asthma Z87.09 and Wheezing R06.[address] [address] 08 Dec, 2018 [facility] [address] [facility] [place] [address] Dec, [address] [address] Nov, care, subsequent in f irst trimester Z34.[address] [address] 24 Nov, 2018 First trimester Z34.91 ; 10 we eks gestation of Z3A.10 and Nausea and vomiting during O21.9 [place] [address] [place] [id number] [place] [address] 14 Nov, 2018 care, subsequent in f irst trimester Z34.81 [facility] [address] [facility] [id number] [address] [place] [address] 05 Nov, 2018 Vomiting O21.9 [facility] [address] [id number] [place] [address] Oct, care, subsequent in f irst trimester Z34.81 and 6 weeks gestation of Z3A.01 [facility] [address] [address] Oct, [facility] [address] [facility] [id number] [address] [place] [address] 06 Oct, 2018 Heat rash L74.0 [place] [address] [address] Aug, UTI symptoms R39.9 [place] [address] [address] Aug, [place] [address] [address] Aug, UTI symptoms R39.9 [place] [address] [address] Aug, Hematuria, unspecified type R31.9 [facility] [address] [facility] [id number] [address] [address] Jul, Sore throat J02.9 ; UTI symp toms R39.9 and Hematuria, unspecified type R31.9 [place] [address] [address] June, Irritable bowel syndrome with diarrhea K 58.0 and Major depressive disorder, single episode, mild F32.0 [place] [address] [address] June, ADHD (attention deficit hyperactivity di sorder), combined type F90.2 ; Anxiety disorder, unspecified type F41.9 and Unspecified mood [affective] disorder F39 [place] [address] [address] May, ADHD (attention deficit hyperactivity di sorder), combined type F90.2 ; Anxiety disorder, unspecified type F41.9 ; Unspecified mood [affective] disorder F39 and 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.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 [place] [address] [address] May, Slow transit constipation K59.01 [facility] [address] [address] May, ADHD (attention deficit hyperactivity di sorder), combined type F90.2 [facility] [address] [address] May, [facility] [address] [address] May, Abdominal pain R10.9 [facility] [address] [address] Apr, [facility] [address] [address] Apr, [facility] [address] [address] Apr, ADHD (attention deficit hyperactivity di sorder), combined type F90.2 [facility] [address] [address] Apr, Abdominal pain R10.9 [facility] [address] [address] Apr, [facility] [address] [address] Mar, [facility] [address] [address] Mar, ADHD (attention deficit hyperactivity di sorder), combined type F90.2 ; Anxiety disorder, unspecified type F41.9 and Unspecified mood [affective] disorder F39 [facility] [address] [address] Mar, Viral gastroenteritis A08.4 and Slow tra nsit constipation K59.01 [facility] [address] [facility] [id number] [address] [place] [address] Mar, Viral gastroenteritis A08.4 [facility] [address] [address] 07 Mar, 2018 ADHD (attention deficit hyperactivity di sorder), combined type F90.2 [place] [address] [address] Feb, Slow transit constipation K59.01 ; Misse d period N92.6 and Nausea R11.0 [place] [address] [address] Feb, ADHD (attention deficit hyperactivity di sorder), combined type F90.2 [facility] [address] [facility] [id number] [address] [place] [address] Jan, Nausea R11.0 and Viral upper respiratory tract infection J06.9 [place] [address] [address] Jan, [place] [address] [address] Jan, ADHD (attention deficit hyperactivity di sorder), combined type F90.2 ; Anxiety disorder, unspecified type F41.9 and Unspecified mood [affective] disorder F39 [place] [address] [address] Jan, Well woman exam with routine gynecologic al exam Z01.419 ; Routine screening for STI (sexually transmitted infection) Z11.3 and Vaginal jose B37.3 [place] [address] [address] Dec, [place] [address] [address] Dec, [place] [address] [address] Dec, ADHD (attention deficit hyperactivity di sorder), combined type F90.2 ; Anxiety disorder, unspecified type F41.9 and Unspecified mood [affective] disorder F39 [place] [address] [address] Dec, Unspecified mood [affective] disorder F3 9 ; Anxiety disorder, unspecified type F41.9 and ADHD (attention deficit hyperactivity disorder), combined type F90.2 [facility] [address] [place] [id number] [place] [address] Nov, Other specified bacterial ag ents as the cause of diseases classified elsewhere B96.89 and Otitis media, unspecified, bilateral H66.93 [facility] [address] [place] [id number] [place] [address] Nov, Sore throat J02.9 and Acute nasopharyngitis J00 [place] [address] [address] Nov, ADHD (attention deficit hyperactivity di sorder), combined type F90.2 ; Anxiety disorder, unspecified type F41.9 and Unspecified mood [affective] disorder F39 [place] [address] [address] Oct, ADHD (attention deficit hyperactivity di sorder), combined type F90.2 [facility] [address] [address] Oct, ADHD (attention deficit hyperactivity di sorder), combined type F90.2 ; Anxiety disorder, unspecified type F41.9 and Unspecified mood [affective] disorder F39 [place] [address] [address] Sep, ADHD (attention deficit hyperactivity di sorder), combined type F90.2 [place] [address] [address] Sep, [place] [address] [address] Aug, ADHD (attention deficit hyperactivity di sorder), combined type F90.2 ; Major depressive disorder, single episode, mild F32.0 and Anxiety disorder, unspecified type F41.9 [facility] [address] [place] [id number] [place] [address] Aug, Sore throat J02.9 ; Other sp ecified bacterial agents as the cause of diseases classified elsewhere B96.89 and Acute tonsillitis due to other specified organisms J03.80 [place] [address] [address] Aug, ADHD (attention deficit hyperactivity di sorder), combined type F90.2 [place] [address] [address] Jul, ADHD (attention deficit hyperactivity di sorder), combined type F90.2 [place] [address] [address] June, ADHD (attention deficit hyperactivity di sorder), combined type F90.2 ; Major depressive disorder, single episode, mild F32.0 and Anxiety disorder, unspecified type F41.9 [place] [address] [address] June, [place] [address] [address] June, ADHD (attention deficit hyperactivity di sorder), combined type F90.2 [place] [address] [address] May, [place] [address] [address] May, ADHD (attention deficit hyperactivity di sorder), combined type F90.2 ; Major depressive disorder, single episode, mild F32.0 and Anxiety disorder, unspecified type F41.9 [place] [address] [address] May, Anxiety disorder, unspecified type F41.9 [place] [address] [address] Apr, [place] [address] [address] Apr, Anxiety disorder, unspecified type F41.9 [place] [address] [address] Apr, Anxiety disorder, unspecified type F41.9 ; Major depressive disorder, single episode, mild F32.0 and ADHD (attention deficit hyperactivity disorder), combined type F90.2 [place] [address] [address] Apr, [place] [address] [address] Apr, ADHD (attention deficit hyperactivity di sorder), combined type F90.2 ; Anxiety state F41.1 ; Depressive disorder, not elsewhere classified F32.9 ; Major depressive disorder, single episode, mild F32.0 and Anxiety disorder, unspecified type F41.9 [place] [address] [address] Mar, ADHD (attention deficit hyperactivity di sorder), combined type F90.2 [place] [address] [address] Mar, Nausea R11.0 [place] [address] [address] 13 Mar, 2017 Screening for STD sexually transmitted d isease Z11.3 ; Vaginal candidiasis B37.3 and Irritable bowel syndrome with diarrhea K58.0 [place] [address] [address] Mar, [place] [address] [address] Feb, ADHD (attention deficit hyperactivity di sorder), combined type F90.2 [place] [address] [address] Feb, Depressive disorder, not elsewhere class ified F32.9 ; Anxiety state F41.1 and ADHD (attention deficit hyperactivity disorder), combined type F90.2 [place] [address] [address] Feb, Depressive disorder, not elsewhere class ified F32.9 ; Anxiety state F41.1 and ADHD (attention deficit hyperactivity disorder), combined type F90.2 [facility] [address] [address] Feb, ADHD (attention deficit hyperactivity di sorder), combined type F90.2 [facility] [address] [facility] [id number] [address] [place] [address] Jan, Other viral agents as the ca use of diseases classified elsewhere B97.89 and Acute upper respiratory infection, unspecified J06.9 [facility] [address] [address] Jan, ADHD (attention deficit hyperactivity di sorder), combined type F90.2 ; Major depressive disorder, single episode, mild F32.0 and Anxiety disorder, unspecified type F41.9 [place] [address] [address] Jan, [facility] [address] [address] Jan, ADHD (attention deficit hyperactivity di sorder), combined type F90.2 ; Major depressive disorder, single episode, mild F32.0 and Anxiety disorder, unspecified type F41.9 [place] [address] [address] Dec, Irritable bowel syndrome with diarrhea K 58.0 and Lower abdominal pain R10.30 [place] [address] [address] Dec, Hospital discharge follow-up Z09 ; Mesen teric adenitis I88.0 ; IBD (inflammatory bowel disease) K52.9 and Nausea R11.0 [place] [address] [address] Nov, ADHD (attention deficit hyperactivity di sorder), combined type F90.2 ; Major depressive disorder, single episode, mild F32.0 and Anxiety disorder, unspecified type F41.9 [place] [address] [address] Nov, Anxiety state F41.1 ; ADHD (attention de ficit hyperactivity disorder), combined type F90.2 ; Major depressive disorder, single episode, mild F32.0 and Anxiety disorder, unspecified type F41.9 [place] [address] [address] Oct, Anxiety state F41.1 ; ADHD (attention de ficit hyperactivity disorder), combined type F90.2 ; Major depressive disorder, single episode, mild F32.0 and Anxiety disorder, unspecified type F41.9 [place] [address] [address] Oct, ADHD (attention deficit hyperactivity di sorder), combined type F90.2 ; Major depressive disorder, single episode, mild F32.0 and Anxiety disorder, unspecified type F41.9 [place] [address] [address] Oct, Major depressive disorder, single episod e, mild F32.0 ; Anxiety state F41.1 ; ADHD (attention deficit hyperactivity disorder), combined type F90.2 and Depressive disorder, not elsewhere classified F32.9 [facility] [address] [facility] [id number] [address] [place] [address] 16 Oct, 2016 [facility] [address] [facility] [id number] [address] [place] [address] Oct, Cellulitis L03.90 and Planta r wart of right foot B07.0 [place] [address] [place] [id number] [place] [address] Aug, ADHD (attention deficit hyperactivity di sorder), combined type F90.2 ; Major depressive disorder, single episode, mild F32.0 and Anxiety disorder, unspecified type F41.9 [place] [address] [address] Aug, [place] [address] [address] Jul, ADHD (attention deficit hyperactivity di sorder), combined type F90.2 [facility] [address] [address] Jul, Mesenteric adenitis I88.0 [facility] [address] [address] June, [facility] [address] [address] June, Lower abdominal pain R10.30 [facility] [address] [address] June, [place] [address] [address] June, ADHD (attention deficit hyperactivity di sorder), combined type F90.2 and Major depressive disorder, single episode, mild F32.0 [place] [address] [address] May, [facility] [address] [address] May, ADHD (attention deficit hyperactivity di sorder), combined type F90.2 and Major depressive disorder, single episode, mild F32.0 [facility] [address] [place] [id number] [place] [address] Apr, Abdominal pain R10.9 and Gas troenteritis and colitis, viral A08.4 [facility] [address] [address] Apr, [facility] [address] [place] [id number] [address] [place] [address] Mar, Acute urticaria L50.8 [facility] [address] [address] Mar, [facility] [address] [address] Feb, [facility] [address] [place] [address] Feb, Gastroenteritis K52.9 [place] [address] [address] Feb, Irritant contact dermatitis due to awais tics L24.3 [place] [address] [address] Jan, [place] [address] [address] Jan, [place] [address] [address] Jan, ADHD (attention deficit hyperactivity di sorder), combined type F90.2 and Major depressive disorder, single episode, mild F32.0 [facility] [address] [address] Dec, Flexural eczema L20.82 [place] [address] [address] Dec, Encounter for test Z32.00 [place] [address] [address] Dec, [place] [address] [address] Dec, [place] [address] [address] Dec, [facility] [address] [place] [id number] [address] [place] [address] Nov, Sore throat J02.9 and Pharyn gitis, unspecified etiology J02.9 [place] [address] [address] Nov, [place] [address] [address] Nov, [place] [address] [address] Nov, Generalized abdominal pain R10.84 and Sl ow transit constipation K59.01 [facility] [address] [facility] [id number] [place] [id number] Nov, Pharyngitis, unspecified etiology J02.9 and Rhinitis, unspecified type J31.0 [facility] [address] [place] [id number] [place] [address] Oct, Depressive disorder, not elsewhere class ified F32.9 and ADHD (attention deficit hyperactivity disorder), combined type F90.2 [facility] [address] [place] [id number] [place] [address] Oct, [facility] [address] [address] Oct, [facility] [address] [facility] [id number] [address] [place] [address] Oct, Strep throat J02.0 [facility] [address] [place] [id number] [place] [address] Oct, [facility] [address] [address] Oct, Well woman exam with routine gynecologic al exam Z01.419 and Screening for STD sexually transmitted disease Z11.3 [facility] [address] [place] [id number] [place] [address] Sep, ADHD (attention deficit hyperactivity di sorder), combined type F90.2 ; Anxiety state F41.1 and Depressive disorder, not elsewhere classified F32.9 [facility] [address] [place] [id number] [place] [address] Sep, ADHD (attention deficit hyperactivity di sorder), combined type F90.2 and Depressive disorder, not elsewhere classified F32.9 [facility] [address] [place] [id number] [place] [address] Aug, [facility] [address] [address] Aug, ADHD (attention deficit hyperactivity di sorder), combined type F90.2 and Depressive disorder, not elsewhere classified F32.9 [facility] [address] [address] Aug, ADHD (attention deficit hyperactivity di sorder), combined type F90.2 ; Anxiety state F41.1 and Depressive disorder, not elsewhere classified F32.9 [facility] [address] [address] Aug, [facility] [address] [address] Aug, [place] [address] [address] Jul, ADHD (attention deficit hyperactivity di sorder), combined type F90.2 ; Depressive disorder, not elsewhere classified F32.9 and Anxiety state F41.1 [place] [address] [address] Jul, [place] [address] [address] Jul, ADHD (attention deficit hyperactivity di sorder), combined type F90.2 ; Anxiety state F41.1 and Depressive disorder, not elsewhere classified F32.9 [facility] [address] [place] [id number] [place] [address] June, [facility] [address] [id number] [place] [id number] June, Constipation K59.00 [facility] [address] [place] [id number] [place] [address] May, Constipation K59.00 [facility] [address] [facility] [id number] [address] [place] [address] May, Irritable bowel syndrome wit h diarrhea K58.0 [facility] [address] [place] [id number] [place] [address] May, [facility] [address] [address] 15 May, 2015 [facility] [address] [id number] [place] [address] 14 May, 2014 [facility] [address] [id number] [place] [address] May, [facility] [address] [id number] [place] [address] Jan, [facility] [address] [id number] [place] [address] Jan, [facility] [address] [id number] [place] [address] Jan, [facility] [address] [id number] [place] [address] Jan, [facility] [address] [id number] [place] [address] Jan, [facility] [address] [id number] [place] [address] Jan, [facility] [address] [id number] [place] [address] Nov, [facility] [address] [id number] [place] [address] Nov, [facility] [address] [id number] [place] [address] Oct, [facility] [address] [id number] [place] [address] Oct, [facility] [address] [id number] [place] [address] Sep, [facility] [address] [id number] [place] [address] Sep, [facility] [address] [id number] [place] [address] Aug, [facility] [address] [id number] [place] [address] Aug, [facility] [address] [id number] [place] [address] Aug, [facility] [address] [id number] [place] [id number] Aug, [facility] [address] [facility] [id number] [place] [address] Aug, [facility] [address] [id number] [place] [address] Aug, [facility] [address] [facility] [id number] [place] [address] Aug, [facility] [address] [facility] [facility] [id number] [place] [address] Aug, [facility] [address] [id number] [place] [address] Jul, [facility] [address] [id number] [place] [address] Jul, [facility] [address] [id number] [place] [address] Jul, [facility] [address] [id number] [place] [address] Jul, [facility] [address] [id number] [place] [address] Jul, [facility] [address] [id number] [place] [address] Jul, [facility] [address] [id number] [place] [address] Jul, [facility] [address] [facility] [id number] [place] [address] Jul, [facility] [address] [id number] [place] [address] Jul, [facility] [address] [id number] [place] [address] June, [facility] [address] [id number] [place] [address] June, [facility] [address] [id number] [place] [address] May, [facility] [address] [id number] [place] [address] May, [facility] [address] [id number] [place] [address] May, [facility] [address] [id number] [place] [address] May, [facility] [address] [facility] [id number] [place] [address] May, [facility] [address] [id number] [place] [address] May, [facility] [address] [id number] [place] [address] May, [facility] [address] [id number] [place] [address] May, [facility] [address] [id number] [place] [address] May, [facility] [address] [id number] [place] [address] May, [facility] [address] [id number] [place] [address] May, [facility] [address] [id number] [place] [address] May, [facility] [address] [id number] [place] [address] Apr, [facility] [address] [facility] [id number] [place] [address] Apr, [facility] [address] [id number] [place] [address] Apr, [facility] [address] [id number] [place] [address] Apr, [facility] [address] [id number] [place] [address] Mar, [facility] [address] [facility] [id number] [place] [address] Mar, [facility] [address] [facility] [id number] [place] [address] Mar, [facility] [address] [id number] [place] [address] Mar, [facility] [address] [id number] [place] [address] Mar, [facility] [address] [facility] [id number] [place] [address] Mar, [facility] [address] [id number] [place] [address] Mar, [facility] [address] [id number] [place] [address] Mar, [facility] [address] [id number] [place] [address] Mar, 2013 [facility] [address] [id number] [place] [address] Mar, [facility] [address] [id number] [place] [address] 14 Mar, 2013 [facility] [address] [id number] [place] [address] Mar, [facility] [address] [id number] [place] [address] Mar, [facility] [address] [id number] [place] [address] Mar, [facility] [address] [id number] [place] [address] Mar, [facility] [address] [id number] [place] [address] Mar, [facility] [address] [id number] [place] [address] Mar, [facility] [address] [facility] [id number] [place] [address] Mar, [facility] [address] [facility] [id number] [facility] [place] [address] Mar, [facility] [address] [id number] [place] [address] Mar, [facility] [address] [id number] [place] [address] Feb, [facility] [address] [facility] [id number] [place] [address] Feb, [facility] [address] [id number] [place] [address] Feb, [facility] [address] [id number] [place] [address] Feb, [facility] [address] [id number] [place] [address] Feb, [facility] [address] [id number] [place] [address] Feb, [facility] [address] [id number] [place] [address] Feb, [facility] [address] [id number] [place] [address] Feb, [facility] [address] [id number] [place] [address] Feb, [facility] [address] [id number] [place] [address] Feb, [facility] [address] [id number] [place] [address] Feb, [facility] [address] [id number] [place] [address] Feb, [facility] [address] [id number] [place] [address] Feb, [facility] [address] [id number] [place] [address] 16 Feb, 2013 [facility] [address] [id number] [place] [address] 16 Feb, 2013 [facility] [address] [id number] [place] [address] 15 Feb, 2013 [facility] [address] [id number] [place] [address] 15 Feb, 2013 [facility] [address] [id number] [place] [address] 15 Feb, 2013 [facility] [address] [id number] [place] [address] 15 Feb, 2013 [facility] [address] [id number] [place] [address] Feb, [facility] [address] [id number] [place] [address] Feb, [facility] [address] [id number] [place] [address] Feb, [facility] [address] [id number] [place] [address] Feb, [facility] [address] [id number] [place] [address] 24 Jan, 2013 [facility] [address] [id number] [place] [address] 24 Jan, 2013 [facility] [address] [id number] [place] [address] 19 Jan, 2013 [facility] [address] [id number] [place] [address] 18 Jan, 2013 [facility] [address] [id number] [place] [address] 18 Jan, 2013 [facility] [address] [id number] [place] [address] 18 Jan, 2013 [facility] [address] [id number] [place] [address] 18 Jan, 2013 [facility] [address] [id number] [place] [address] Jan, [facility] [address] [id number] [place] [address] Jan, [facility] [address] [id number] [place] [address] Jan, [facility] [address] [id number] [place] [address] Jan, [facility] [address] [id number] [place] [address] Jan, [facility] [address] [id number] [place] [address] Jan, [facility] [address] [id number] [place] [address] Dec, [facility] [id number] [place] [address] Dec, [facility] [address] [id number] [place] [address] Dec, [facility] [address] [id number] [place] [address] Dec, [facility] [address] [id number] [place] [address] Dec, [facility] [address] [id number] [place] [address] Dec, [facility] [address] [id number] [place] [address] Nov, [facility] [address] [id number] [place] [address] Nov, [facility] [id number] [place] [address] Nov, [facility] [address] [id number] [place] [address] Nov, [facility] [address] [id number] [place] [address] Nov, [facility] [address] [id number] [place] [address] Nov, [facility] [address] [id number] [place] [address] Oct, [facility] [address] [id number] [place] [address] Oct, [facility] [id number] [place] [address] Oct, [facility] [id number] [place] [address] Oct, [facility] [id number] [place] [address] Oct, [facility] [address] [id number] [place] [address] Oct, [facility] [id number] [place] [address] Oct, IMMUNIZATIONS No Known Immunizations SOCIAL HISTORY Never Assessed REASON FOR VISIT PLAN OF CARE VITAL SIGNS MEDICATIONS Unknown Medications RESULTS No Results PROCEDURES Procedure Date Ordered Result Body Site PSYTX PT&/FAMILY 45 MINUTES Apr 19, 2013 INSTRUCTIONS MEDICATIONS ADMINISTERED No Known Medications [...]
--- OUTSIDE RECORDS SUMMARY | 2019-06-25 21:24 | XMS REPORT ---
Author Author Sheyla Xavier Doctor Organization [facility] Address Unknown Phone Unavailable Care Team Providers Care [place] [facility] Person Name Role Phone Migration, Doctor Unavailable Unavailable PROBLEMS Type Condition ICD9-CM Code LMC96-OR Code Onset Dates Condition S tatus SNOMED Code Problem ADHD (attention deficit hyperactivity disorder), combi amparo type F90.2 Active 86565718 Problem Unspecified mood [affective] disorder F39 Active 79598468 Problem Intrinsic atopic dermatitis L20.84 Ac tive 62971786 Problem Slow transit constipation K59.01 Acti ve 77302154 Problem Anxiety disorder, unspecified type F41.9 Active 713567098 Problem Major depressive disorder, single episode, mild F3 2.0 Active 17862523 Problem Irritable bowel syndrome with diarrhea K58.0 Active 580560712 ALLERGIES No Information ENCOUNTERS Encounter Location Date Diagnosis [place] [address] [address] May, [place] [address] [address] May, [place] [address] [address] Apr, [place] [address] [address] Apr, [place] [address] [address] Mar, Abnormal glucose tolerance in O99.810 [place] [address] [address] Mar, Second trimester Z33.1 ; Nause a and vomiting during O21.9 and 27 weeks gestation of Z3A.27 [place] [address] [address] Mar, [facility] [address] [facility] [id number] [place] [address] 07 Mar, 2019 Non-intractable vomiting wit h nausea, unspecified vomiting type R11.2 [facility] [address] [address] Feb, [facility] [address] [address] Feb, Second trimester Z33.1 [facility] [address] [address] Feb, Second trimester Z34.92 ; 21 w eeks gestation of Z3A.21 and Exposure to STD Z20.2 [facility] [address] [address] Feb, Second trimester Z33.1 [facility] [address] [facility] [id number] [place] [address] Feb, Non-intractable vomiting wit h nausea, unspecified vomiting type R11.2 [facility] [address] [address] Jan, [facility] [address] [address] Jan, [facility] [address] [address] Jan, First trimester Z34.91 [place] [address] [address] Jan, Second trimester Z34.92 and In trinsic atopic dermatitis L20.84 [facility] [address] [address] Dec, First trimester Z34.91 [facility] [address] [address] Dec, Second trimester Z34.92 and Fa kim history of neural tube defect Z82.0 [place] [address] [address] Dec, [facility] [address] [address] Dec, Second trimester Z34.92 ; Fami ly history of neural tube defect Z82.0 ; History of asthma Z87.09 and Wheezing R06.2 [facility] [address] [address] Dec, [facility] [address] [place] [id number] [place] [address] Dec, [facility] [address] [address] Nov, care, subsequent in f irst trimester Z34.81 [place] [address] [address] 24 Nov, 2018 First trimester Z34.91 ; 10 we eks gestation of Z3A.10 and Nausea and vomiting during O21.9 [place] [address] [address] 14 Nov, 2018 care, subsequent in f irst trimester Z34.81 [facility] [address] [place] [id number] [address] [place] [address] 05 Nov, 2018 Vomiting O21.9 [place] [address] [address] 26 Oct, 2018 care, subsequent in f irst trimester Z34.81 and 6 weeks gestation of Z3A.01 [facility] [address] [address] Oct, [facility] [address] [place] [id number] [address] [place] [address] Oct, Heat rash L74.0 [facility] [address] [address] Aug, UTI symptoms R39.9 [place] [address] [address] Aug, [facility] [address] [address] Aug, UTI symptoms R39.9 [facility] [address] [place] [id number] [place] [address] Aug, Hematuria, unspecified type R31.9 [facility] [address] [facility] [id number] [address] [address] Jul, Sore throat J02.9 ; UTI symp toms R39.9 and Hematuria, unspecified type R31.9 [place] [address] [address] June, Irritable bowel syndrome with diarrhea K 58.0 and Major depressive disorder, single episode, mild F32.0 [place] [address] [address] June, ADHD (attention deficit hyperactivity di sorder), combined type F90.2 ; Anxiety disorder, unspecified type F41.9 and Unspecified mood [affective] disorder F39 [place] [address] [address] May, ADHD (attention deficit hyperactivity di sorder), combined type F90.2 ; Anxiety disorder, unspecified type F41.9 ; Unspecified mood [affective] disorder F39 and Other penitentiary (current) 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 Z79.899 [place] [address] [address] May, Slow transit constipation K59.01 [facility] [address] [address] May, ADHD (attention deficit hyperactivity di sorder), combined type F90.2 [facility] [address] [address] May, [facility] [address] [address] May, Abdominal pain R10.9 [facility] [address] [address] Apr, [facility] [address] [address] Apr, [facility] [address] [address] Apr, ADHD (attention deficit hyperactivity di sorder), combined type F90.2 [facility] [address] [address] Apr, Abdominal pain R10.9 [facility] [address] [address] Apr, [facility] [address] [address] Mar, [facility] [address] [address] Mar, ADHD (attention deficit hyperactivity di sorder), combined type F90.2 ; Anxiety disorder, unspecified type F41.9 and Unspecified mood [affective] disorder F39 [facility] [address] [address] Mar, Viral gastroenteritis A08.4 and Slow tra nsit constipation K59.01 [facility] [address] [facility] [id number] [address] [address] Mar, Viral gastroenteritis A08.4 [facility] [address] [address] Mar, ADHD (attention deficit hyperactivity di sorder), combined type F90.2 [facility] [address] [address] Feb, Slow transit constipation K59.01 ; [facility] N92.6 and Nausea R11.0 [facility] [address] [address] Feb, ADHD (attention deficit hyperactivity di sorder), combined type F90.2 [facility] [address] [place] [id number] [address] [place] [address] Jan, Nausea R11.0 and Viral upper respiratory tract infection J06.9 [place] [address] [address] Jan, [place] [address] [address] Jan, ADHD (attention deficit hyperactivity di sorder), combined type F90.2 ; Anxiety disorder, unspecified type F41.9 and Unspecified mood [affective] disorder F39 [place] [address] [address] Jan, Well woman exam with routine gynecologic al exam Z01.419 ; Routine screening for STI (sexually transmitted infection) Z11.3 and Vaginal jose B37.3 [place] [address] [address] Dec, [place] [address] [address] Dec, [place] [address] [address] Dec, ADHD (attention deficit hyperactivity di sorder), combined type F90.2 ; Anxiety disorder, unspecified type F41.9 and Unspecified mood [affective] disorder F39 [place] [address] [address] Dec, Unspecified mood [affective] disorder F3 9 ; Anxiety disorder, unspecified type F41.9 and ADHD (attention deficit hyperactivity disorder), combined type F90.2 [facility] [place] [address] [address] [place] [id number] [address] [place] [address] Nov, Other specified bacterial ag ents as the cause of diseases classified elsewhere B96.89 and Otitis media, unspecified, bilateral H66.93 [facility] [address] [place] [id number] [address] [place] [address] Nov, Sore throat J02.9 and Acute nasopharyngitis J00 [facility] [address] [place] [id number] [place] [address] Nov, ADHD (attention deficit hyperactivity di sorder), combined type F90.2 ; Anxiety disorder, unspecified type F41.9 and Unspecified mood [affective] disorder F39 [facility] [address] [address] Oct, ADHD (attention deficit hyperactivity di sorder), combined type F90.2 [place] [address] [address] Oct, ADHD (attention deficit hyperactivity di sorder), combined type F90.2 ; Anxiety disorder, unspecified type F41.9 and Unspecified mood [affective] disorder F39 [place] [address] [address] Sep, ADHD (attention deficit hyperactivity di sorder), combined type F90.2 [place] [address] [place] [id number] [place] [address] Sep, [place] [address] [address] Aug, ADHD (attention deficit hyperactivity di sorder), combined type F90.2 ; Major depressive disorder, single episode, mild F32.0 and Anxiety disorder, unspecified type F41.9 [facility] [address] [facility] [id number] [address] [address] Aug, Sore throat J02.9 ; Other sp ecified bacterial agents as the cause of diseases classified elsewhere B96.89 and Acute tonsillitis due to other specified organisms J03.80 [facility] [address] [address] Aug, ADHD (attention deficit hyperactivity di sorder), combined type F90.2 [facility] [address] [place] [id number] [place] [address] Jul, ADHD (attention deficit hyperactivity di sorder), combined type F90.2 [facility] [address] [place] [id number] [place] [address] June, ADHD (attention deficit hyperactivity di sorder), combined type F90.2 ; Major depressive disorder, single episode, mild F32.0 and Anxiety disorder, unspecified type F41.9 [facility] [address] [address] June, [facility] [address] [address] June, ADHD (attention deficit hyperactivity di sorder), combined type F90.2 [facility] [address] [address] May, [facility] [address] [address] May, ADHD (attention deficit hyperactivity di sorder), combined type F90.2 ; Major depressive disorder, single episode, mild F32.0 and Anxiety disorder, unspecified type F41.9 [facility] [address] [address] May, Anxiety disorder, unspecified type F41.9 [facility] [address] [address] Apr, [facility] [address] [address] Apr, Anxiety disorder, unspecified type F41.9 [facility] [address] [address] Apr, Anxiety disorder, unspecified type F41.9 ; Major depressive disorder, single episode, mild F32.0 and ADHD (attention deficit hyperactivity disorder), combined type F90.2 [facility] [address] [place] [id number] [place] [address] Apr, [facility] [address] [address] Apr, ADHD (attention deficit hyperactivity di sorder), combined type F90.2 ; Anxiety state F41.1 ; Depressive disorder, not elsewhere classified F32.9 ; Major depressive disorder, single episode, mild F32.0 and Anxiety disorder, unspecified type F41.9 [place] [address] [address] 28 Mar, 2017 ADHD (attention deficit hyperactivity di sorder), combined type F90.2 [place] [address] [address] 20 Mar, 2017 Nausea R11.0 [place] [address] [address] 13 Mar, 2017 Screening for STD sexually transmitted d isease Z11.3 ; Vaginal candidiasis B37.3 and Irritable bowel syndrome with diarrhea K58.0 [place] [address] [address] Mar, [place] [address] [address] Feb, ADHD (attention deficit hyperactivity di sorder), combined type F90.2 [place] [address] [address] Feb, Depressive disorder, not elsewhere class ified F32.9 ; Anxiety state F41.1 and ADHD (attention deficit hyperactivity disorder), combined type F90.2 [place] [address] [address] Feb, Depressive disorder, not elsewhere class ified F32.9 ; Anxiety state F41.1 and ADHD (attention deficit hyperactivity disorder), combined type F90.2 [place] [address] [address] Feb, ADHD (attention deficit hyperactivity di sorder), combined type F90.2 [facility] [address] [facility] [id number] [address] [address] Jan, Other viral agents as the ca use of diseases classified elsewhere B97.89 and Acute upper respiratory infection, unspecified J06.9 [place] [address] [address] Jan, ADHD (attention deficit hyperactivity di sorder), combined type F90.2 ; Major depressive disorder, single episode, mild F32.0 and Anxiety disorder, unspecified type F41.9 [place] [address] [address] Jan, [place] [address] [place] [address] Jan, ADHD (attention deficit hyperactivity di sorder), combined type F90.2 ; Major depressive disorder, single episode, mild F32.0 and Anxiety disorder, unspecified type F41.9 [place] [address] [place] [id number] Dec, Irritable bowel syndrome with diarrhea K 58.0 and Lower abdominal pain R10.[address] [address] Dec, Hospital discharge follow-up Z09 ; Mesen teric adenitis I88.0 ; IBD (inflammatory bowel disease) K52.9 and Nausea R11.0 [place] [address] [address] Nov, ADHD (attention deficit hyperactivity di sorder), combined type F90.2 ; Major depressive disorder, single episode, mild F32.0 and Anxiety disorder, unspecified type F41.9 [place] [address] [address] Nov, Anxiety state F41.1 ; ADHD (attention de ficit hyperactivity disorder), combined type F90.2 ; Major depressive disorder, single episode, mild F32.0 and Anxiety disorder, unspecified type F41.9 [place] [address] [address] Oct, Anxiety state F41.1 ; ADHD (attention de ficit hyperactivity disorder), combined type F90.2 ; Major depressive disorder, single episode, mild F32.0 and Anxiety disorder, unspecified type F41.9 [facility] [address] [address] Oct, ADHD (attention deficit hyperactivity di sorder), combined type F90.2 ; Major depressive disorder, single episode, mild F32.0 and Anxiety disorder, unspecified type F41.9 [place] [address] [address] Oct, Major depressive disorder, single episod e, mild F32.0 ; Anxiety state F41.1 ; ADHD (attention deficit hyperactivity disorder), combined type F90.2 and Depressive disorder, not elsewhere classified F32.9 [facility] N [address] [address] 16 Oct, 2016 [facility] [place] [address] [address] Oct, Cellulitis L03.90 and Planta r wart of right foot B07.0 [place] [address] [address] Aug, ADHD (attention deficit hyperactivity di sorder), combined type F90.2 ; Major depressive disorder, single episode, mild F32.0 and Anxiety disorder, unspecified type F41.9 [place] [address] [address] Aug, [place] [address] [address] Jul, ADHD (attention deficit hyperactivity di sorder), combined type F90.2 [place] [address] [address] Jul, Mesenteric adenitis I88.0 [place] [address] [address] June, [facility] [address] [address] June, Lower abdominal pain R10.30 [place] [address] [address] June, [facility] [address] [address] June, ADHD (attention deficit hyperactivity di sorder), combined type F90.2 and Major depressive disorder, single episode, mild F32.0 [facility] [address] [address] May, [place] [address] [address] May, ADHD (attention deficit hyperactivity di sorder), combined type F90.2 and Major depressive disorder, single episode, mild F32.0 [facility] [address] [place] [id number] [address] [place] [address] Apr, Abdominal pain R10.9 and Gas troenteritis and colitis, viral A08.4 [place] [address] [address] Apr, [facility] [address] [address] Mar, Acute urticaria L50.8 [place] [address] [address] Mar, [place] [address] [address] Feb, [facility] [address] [place] [id number] [address] [place] [address] Feb, Gastroenteritis K52.9 [place] [address] [address] Feb, Irritant contact dermatitis due to awais tics L24.3 [place] [address] [address] Jan, [place] [address] [address] Jan, [facility] [address] [address] Jan, ADHD (attention deficit hyperactivity di sorder), combined type F90.2 and Major depressive disorder, single episode, mild F32.0 [facility] [address] [facility] [id number] [place] [address] Dec, Flexural eczema L20.82 [place] [address] [address] Dec, Encounter for test Z32.00 [place] [address] [address] Dec, [place] [address] [address] Dec, [place] [address] [address] Dec, [facility] [address] [facility] [id number] [address] [place] [address] Nov, Sore throat J02.9 and Pharyn gitis, unspecified etiology J02.9 [place] [address] [address] Nov, [place] [address] [address] Nov, [place] [address] [address] Nov, Generalized abdominal pain R10.84 and Sl ow transit constipation K59.01 [facility] [address] [id number] [place] [id number] 05 Nov, 2015 Pharyngitis, unspecified etiology J02.9 and Rhinitis, unspecified type J31.0 [place] [address] [place] [id number] [place] [address] 29 Oct, 2015 Depressive disorder, not elsewhere class ified F32.9 and ADHD (attention deficit hyperactivity disorder), combined type F90.2 [place] [address] [place] [id number] [place] [address] 29 Oct, 2015 [facility] [address] [place] [id number] [place] [address] Oct, [facility] [address] [facility] [id number] [address] [place] [address] Oct, Strep throat J02.0 [facility] [address] [place] [id number] [place] [address] 16 Oct, 2015 [facility] [address] [place] [id number] [place] [address] Oct, Well woman exam with routine gynecologic al exam Z01.419 and Screening for STD sexually transmitted disease Z11.3 [place] [address] [place] [id number] [place] [address] Sep, ADHD (attention deficit hyperactivity di sorder), combined type F90.2 ; Anxiety state F41.1 and Depressive disorder, not elsewhere classified F32.9 [facility] [address] [place] [id number] [place] [address] Sep, ADHD (attention deficit hyperactivity di sorder), combined type F90.2 and Depressive disorder, not elsewhere classified F32.9 [place] [address] [place] [id number] [place] [address] Aug, [facility] [address] [place] [id number] [place] [address] Aug, ADHD (attention deficit hyperactivity di sorder), combined type F90.2 and Depressive disorder, not elsewhere classified F32.9 [facility] [address] [place] [id number] [place] [address] Aug, ADHD (attention deficit hyperactivity di sorder), combined type F90.2 ; Anxiety state F41.1 and Depressive disorder, not elsewhere classified F32.9 [place] [address] [place] [id number] [place] [address] Aug, [facility] [address] [address] Aug, [facility] [address] [place] [id number] [place] [address] Jul, ADHD (attention deficit hyperactivity di sorder), combined type F90.2 ; Depressive disorder, not elsewhere classified F32.9 and Anxiety state F41.1 [facility] [address] [place] [id number] [place] [address] Jul, [facility] [address] [place] [id number] [place] [address] Jul, ADHD (attention deficit hyperactivity di sorder), combined type F90.2 ; Anxiety state F41.1 and Depressive disorder, not elsewhere classified F32.9 [facility] [address] [place] [id number] [place] [address] June, [facility] [address] [id number] [place] [id number] June, Constipation K59.00 [facility] [address] [place] [id number] [place] [address] May, Constipation K59.00 [facility] [address] [facility] [id number] [address] [place] [address] May, Irritable bowel syndrome wit h diarrhea K58.0 [facility] [address] [place] [id number] [place] [address] May, [facility] [address] [place] [id number] [place] [address] May, [facility] [address] [id number] [place] [address] May, [facility] [address] [place] [id number] [place] [address] May, [facility] [address] [place] [id number] [place] [address] Jan, [facility] [address] [address] Jan, [facility] [address] [id number] [place] [address] 08 Jan, 2014 [facility] [address] [id number] [place] [address] Jan, [facility] [address] [id number] [place] [address] Jan, [facility] [address] [id number] [place] [address] Jan, [facility] [address] [id number] [place] [address] Nov, [facility] [address] [id number] [place] [address] Nov, [facility] [address] [id number] [place] [address] Oct, [facility] [address] [id number] [place] [address] Oct, [facility] [address] [id number] [place] [address] Sep, [facility] [address] [id number] [place] [address] Sep, [facility] [address] [id number] [place] [address] Aug, [facility] [address] [id number] [place] [address] Aug, [facility] [address] [id number] [place] [address] Aug, [facility] [address] [id number] [place] [address] Aug, [facility] [address] [id number] [place] [address] Aug, [facility] [address] [id number] [place] [address] Aug, [facility] [address] [id number] [place] [address] Aug, [facility] [address] [facility] [id number] [place] [address] Aug, [facility] [address] [id number] [place] [address] Jul, [facility] [address] [id number] [place] [address] Jul, [facility] [address] [id number] [place] [address] Jul, [facility] [address] [facility] [id number] [place] [address] Jul, [facility] [address] [id number] [place] [address] Jul, [facility] [address] [id number] [place] [address] Jul, [facility] [address] [id number] [place] [address] Jul, [facility] [address] [id number] [place] [address] Jul, [facility] [address] [id number] [place] [address] Jul, [facility] [address] [id number] [place] [address] June, [facility] [address] [id number] [place] [address] June, [facility] [address] [id number] [place] [address] May, [facility] [address] [id number] [place] [address] May, [facility] [address] [id number] [place] [address] May, [facility] [address] [id number] [place] [address] May, [facility] [address] [id number] [place] [address] May, [facility] [address] [facility] [id number] [place] [address] May, [facility] [address] [facility] [id number] [place] [address] May, [facility] [address] [id number] [place] [address] May, [facility] [address] [id number] [place] [address] May, [facility] [address] [facility] [id number] [place] [address] May, [facility] [address] [id number] [place] [address] May, [facility] [address] [id number] [place] [address] May, [facility] [address] [id number] [place] [address] Apr, [facility] [address] [facility] [id number] [place] [address] Apr, [facility] [address] [id number] [place] [address] Apr, [facility] [address] [id number] [place] [address] Apr, [facility] [address] [id number] [place] [address] Mar, [facility] [address] [facility] [id number] [place] [address] Mar, [facility] [address] [id number] [place] [address] Mar, [facility] [address] [id number] [place] [address] Mar, [facility] [address] [id number] [place] [address] Mar, [facility] [address] [facility] [id number] [place] [address] Mar, [facility] [address] [facility] [id number] [place] [address] Mar, [facility] [address] [facility] [id number] [place] [address] Mar, [facility] [address] [id number] [place] [address] Mar, [facility] [address] [facility] [id number] [place] [address] Mar, [facility] [address] [id number] [place] [address] Mar, [facility] [address] [id number] [place] [address] Mar, [facility] [address] [id number] [place] [address] Mar, [facility] [address] [id number] [place] [address] Mar, [facility] [address] [id number] [place] [address] Mar, [facility] [address] [id number] [place] [address] Mar, [facility] [address] [id number] [place] [address] Mar, [facility] [address] [id number] [place] [address] Mar, [facility] [address] [id number] [place] [address] Mar, [facility] [address] [id number] [place] [address] Mar, [facility] [address] [id number] [place] [address] Feb, [facility] [address] [id number] [place] [address] Feb, [facility] [address] [id number] [place] [address] Feb, [facility] [address] [id number] [place] [address] Feb, [facility] [address] [id number] [place] [address] Feb, [facility] [address] [id number] [place] [address] Feb, [facility] [address] [id number] [place] [address] Feb, [facility] [address] [id number] [place] [address] Feb, [facility] [address] [id number] [place] [address] Feb, [facility] [address] [id number] [place] [address] Feb, [facility] [address] [id number] [place] [address] Feb, [facility] [address] [id number] [place] [address] Feb, [facility] [address] [id number] [place] [address] Feb, [facility] [address] [id number] [place] [address] Feb, [facility] [address] [id number] [place] [address] Feb, [facility] [address] [id number] [place] [address] Feb, [facility] [address] [id number] [place] [address] Feb, [facility] [address] [id number] [place] [address] Feb, [facility] [address] [id number] [place] [address] 15 Feb, 2013 [facility] [address] [id number] [place] [address] Feb, [facility] [address] [id number] [place] [address] Feb, [facility] [address] [id number] [place] [address] Feb, [facility] [address] [id number] [place] [address] Feb, [facility] [address] [id number] [place] [address] Jan, [facility] [address] [id number] [place] [address] Jan, [facility] [address] [id number] [place] [address] Jan, [facility] [address] [id number] [place] [address] Jan, [facility] [address] [id number] [place] [address] Jan, [facility] [address] [id number] [place] [address] 18 Jan, 2013 [facility] [address] [id number] [place] [address] 18 Jan, 2013 [facility] [address] [id number] [place] [address] 17 Jan, 2013 [facility] [address] [id number] [place] [address] 17 Jan, 2013 [facility] [address] [id number] [place] [address] 2013 [facility] [address] [id number] [place] [address] Jan, [facility] [address] [id number] [place] [address] Jan, [facility] [address] [id number] [place] [address] Jan, [facility] [address] [id number] [place] [address] Dec, [facility] [address] [id number] [place] [address] Dec, [facility] [address] [id number] [place] [address] Dec, [facility] [address] [id number] [place] [address] Dec, [facility] [address] [id number] [place] [address] Dec, [facility] [address] [id number] [place] [address] Dec, [facility] [address] [id number] [place] [address] Nov, [facility] [address] [id number] [place] [address] Nov, [facility] [address] [id number] [place] [address] Nov, [facility] [address] [id number] [place] [address] Nov, [facility] [address] [id number] [place] [address] Nov, [facility] [address] [id number] [place] [address] Nov, [facility] [address] [id number] [place] [address] 28 Oct, 2012 [facility] [address] [id number] [place] [address] 27 Oct, 2012 [facility] [address] [id number] [place] [address] 26 Oct, 2012 [facility] [address] [id number] [place] [address] Oct, [facility] [address] [id number] [place] [address] Oct, [facility] [address] [id number] [place] [address] Oct, [facility] [address] [id number] [place] [address] Oct, IMMUNIZATIONS No Known Immunizations SOCIAL HISTORY [...]
--- OUTSIDE RECORDS SUMMARY | 2019-06-25 21:24 | XMS REPORT ---
Author Author Sheyla JURADO Organization [facility] Address [address] [place] [address] Care Team Providers Care Bench Inspector Name Role Phone RHIANNON GENARO Unavailable PROBLEMS Type Condition ICD9-CM Code PGI17-RD Code Onset Dates Condition S tatus SNOMED Code Problem ADHD (attention deficit hyperactivity disorder), combi amparo type F90.2 Active 74064280 Problem Unspecified mood [affective] disorder F39 Active 22302309 Problem Intrinsic atopic dermatitis L20.84 Ac tive 17792779 Problem Slow transit constipation K59.01 Acti ve 54790267 Problem Anxiety disorder, unspecified type F41.9 Active 340722902 Problem Major depressive disorder, single episode, mild F3 2.0 Active 87127186 Problem Irritable bowel syndrome with diarrhea K58.0 Active [id number] ALLERGIES No Information ENCOUNTERS Encounter Location Date Diagnosis [place] [address] [address] May, [place] [address] [address] May, [place] [address] [address] Apr, [place] [address] [address] Apr, [place] [address] [address] Mar, Abnormal glucose tolerance in O99.810 [place] [address] [address] Mar, Second trimester Z33.1 ; Nause a and vomiting during O21.9 and 27 weeks gestation of Z3A.27 [place] [address] [place] [id number] [place] [address] Mar, [facility] [address] [facility] [id number] [address] [place] [address] Mar, Non-intractable vomiting wit h nausea, unspecified vomiting type R11.2 [facility] [address] [address] Feb, [facility] [address] [address] Feb, Second trimester Z33.1 [facility] [address] [address] 13 Feb, 2019 Second trimester Z34.92 ; 21 w eeks gestation of Z3A.21 and Exposure to STD Z20.2 [facility] [address] [address] Feb, Second trimester Z33.1 [facility] [address] [facility] [id number] [address] [place] [address] Feb, Non-intractable vomiting wit h nausea, unspecified vomiting type R11.2 [place] [address] [address] Jan, [facility] [address] [address] Jan, [place] [address] [address] Jan, First trimester Z34.91 [place] [address] [address] Jan, Second trimester Z34.92 and In trinsic atopic dermatitis L20.84 [place] [address] [address] Dec, First trimester Z34.91 [place] [address] [address] Dec, Second trimester Z34.92 and Fa kim history of neural tube defect Z82.0 [facility] [address] [address] Dec, [place] [address] [address] 13 Dec, 2018 Second trimester Z34.92 ; Fami ly history of neural tube defect Z82.0 ; History of asthma Z87.09 and Wheezing R06.2 [facility] [address] [address] 08 Dec, 2018 [facility] [address] [place] [id number] [place] [address] Dec, [place] [address] [address] Nov, care, subsequent in f irst trimester Z34.[address] [address] 24 Nov, 2018 First trimester Z34.91 ; 10 we eks gestation of Z3A.10 and Nausea and vomiting during O21.9 [place] [address] [address] 14 Nov, 2018 care, subsequent in f irst trimester Z34.81 [facility] [address] [place], [place] [id number] [address] [place] [address] 05 Nov, 2018 Vomiting O21.9 [place] [address] [address] 26 Oct, 2018 care, subsequent in f irst trimester Z34.81 and 6 weeks gestation of Z3A.01 [place] [address] [address] Oct, [facility] [address] [place], [place] [id number] [address] [place] [address] 06 Oct, 2018 Heat rash L74.0 [place] [address] [address] Aug, UTI symptoms R39.9 [facility] [address] [place] [id number] [place] [address] Aug, [facility] [address] [address] Aug, UTI symptoms R39.9 [facility] [address] [address] Aug, Hematuria, unspecified type R31.9 [facility] [address] [facility] [id number] [address] [place] [address] Jul, Sore throat J02.9 ; UTI symp toms R39.9 and Hematuria, unspecified type R31.9 [place] [address] [address] June, Irritable bowel syndrome with diarrhea K 58.0 and Major depressive disorder, single episode, mild F32.0 [place] [address] [address] June, ADHD (attention deficit hyperactivity di sorder), combined type F90.2 ; Anxiety disorder, unspecified type F41.9 and Unspecified mood [affective] disorder F39 [place] [address] [address] May, ADHD (attention deficit hyperactivity di sorder), combined type F90.2 ; Anxiety disorder, unspecified type F41.9 ; Unspecified mood [affective] disorder F39 and Other nursing home (current) 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 Z79.899 [place] [address] [address] May, Slow transit constipation K59.01 [place] [address] [address] May, ADHD (attention deficit hyperactivity di sorder), combined type F90.2 [place] [address] [address] May, [place] [address] [address] May, Abdominal pain R10.9 [facility] [address] [address] Apr, [facility] [address] [address] Apr, [facility] [address] [address] Apr, ADHD (attention deficit hyperactivity di sorder), combined type F90.2 [facility] [address] [address] Apr, Abdominal pain R10.9 [place] [address] [address] Apr, [place] [address] [address] Mar, [place] [address] [address] Mar, ADHD (attention deficit hyperactivity di sorder), combined type F90.2 ; Anxiety disorder, unspecified type F41.9 and Unspecified mood [affective] disorder F39 [facility] [address] [address] Mar, Viral gastroenteritis A08.4 and Slow tra nsit constipation K59.01 [facility] [address] [facility] [id number] [address] [place] [address] Mar, Viral gastroenteritis A08.4 [facility] [address] [address] Mar, ADHD (attention deficit hyperactivity di sorder), combined type F90.2 [facility] [address] [address] Feb, Slow transit constipation K59.01 ; Misse d period N92.6 and Nausea R11.0 [place] [address] [address] Feb, ADHD (attention deficit hyperactivity di sorder), combined type F90.2 [facility] [place] [address] [place] [id number] [address] [place] [address] Jan, Nausea R11.0 and Viral upper respiratory tract infection J06.9 [place] [address] [address] Jan, [place] [address] [address] Jan, ADHD (attention deficit hyperactivity di sorder), combined type F90.2 ; Anxiety disorder, unspecified type F41.9 and Unspecified mood [affective] disorder F39 [place] [address] [address] Jan, Well woman exam with routine gynecologic al exam Z01.419 ; Routine screening for STI (sexually transmitted infection) Z11.3 and Vaginal jose B37.3 [place] [address] [address] Dec, [place] [address] [address] Dec, [place] [address] [address] Dec, ADHD (attention deficit hyperactivity di sorder), combined type F90.2 ; Anxiety disorder, unspecified type F41.9 and Unspecified mood [affective] disorder F39 [place] [address] [address] Dec, Unspecified mood [affective] disorder F3 9 ; Anxiety disorder, unspecified type F41.9 and ADHD (attention deficit hyperactivity disorder), combined type F90.2 [facility] [place] [address] [facility] [id number] [address] [place] [address] Nov, Other specified bacterial ag ents as the cause of diseases classified elsewhere B96.89 and Otitis media, unspecified, bilateral H66.93 [facility] [address] [facility] [id number] [address] [place] [address] Nov, Sore throat J02.9 and Acute nasopharyngitis J00 [facility] [address] [address] Nov, ADHD (attention deficit hyperactivity di sorder), combined type F90.2 ; Anxiety disorder, unspecified type F41.9 and Unspecified mood [affective] disorder F39 [place] [address] [address] Oct, ADHD (attention deficit hyperactivity di sorder), combined type F90.2 [place] [address] [address] Oct, ADHD (attention deficit hyperactivity di sorder), combined type F90.2 ; Anxiety disorder, unspecified type F41.9 and Unspecified mood [affective] disorder F39 [place] [address] [address] Sep, ADHD (attention deficit hyperactivity di sorder), combined type F90.2 [place] [address] [address] Sep, [place] [address] [address] Aug, ADHD (attention deficit hyperactivity di sorder), combined type F90.2 ; Major depressive disorder, single episode, mild F32.0 and Anxiety disorder, unspecified type F41.9 [facility] [address] [facility] [id number] [address] [place] [address] Aug, Sore throat J02.9 ; Other sp ecified bacterial agents as the cause of diseases classified elsewhere B96.89 and Acute tonsillitis due to other specified organisms J03.80 [place] [address] [address] Aug, ADHD (attention deficit hyperactivity di sorder), combined type F90.2 [place] [address] [address] Jul, ADHD (attention deficit hyperactivity di sorder), combined type F90.2 [facility] [address] [address] June, ADHD (attention deficit hyperactivity di sorder), combined type F90.2 ; Major depressive disorder, single episode, mild F32.0 and Anxiety disorder, unspecified type F41.9 [facility] [address] [address] June, [facility] [address] [address] June, ADHD (attention deficit hyperactivity di sorder), combined type F90.2 [facility] [address] [address] May, [facility] [address] [address] May, ADHD (attention deficit hyperactivity di sorder), combined type F90.2 ; Major depressive disorder, single episode, mild F32.0 and Anxiety disorder, unspecified type F41.9 [facility] [address] [address] May, Anxiety disorder, unspecified type F41.9 [facility] [address] [address] Apr, [facility] [address] [address] Apr, Anxiety disorder, unspecified type F41.9 [facility] [address] [address] Apr, Anxiety disorder, unspecified type F41.9 ; Major depressive disorder, single episode, mild F32.0 and ADHD (attention deficit hyperactivity disorder), combined type F90.2 [facility] [address] [address] Apr, [facility] [address] [address] Apr, ADHD (attention deficit hyperactivity di sorder), combined type F90.2 ; Anxiety state F41.1 ; Depressive disorder, not elsewhere classified F32.9 ; Major depressive disorder, single episode, mild F32.0 and Anxiety disorder, unspecified type F41.9 [place] [address] [address] Mar, ADHD (attention deficit hyperactivity di sorder), combined type F90.2 [place] [address] [address] Mar, Nausea R11.0 [place] [address] [address] Mar, Screening for STD sexually transmitted d isease Z11.3 ; Vaginal candidiasis B37.3 and Irritable bowel syndrome with diarrhea K58.0 [place] [address] [address] Mar, [place] [address] [address] Feb, ADHD (attention deficit hyperactivity di sorder), combined type F90.2 [place] [address] [address] Feb, Depressive disorder, not elsewhere class ified F32.9 ; Anxiety state F41.1 and ADHD (attention deficit hyperactivity disorder), combined type F90.2 [place] [address] [address] Feb, Depressive disorder, not elsewhere class ified F32.9 ; Anxiety state F41.1 and ADHD (attention deficit hyperactivity disorder), combined type F90.2 [place] [address] [address] Feb, ADHD (attention deficit hyperactivity di sorder), combined type F90.2 [facility] [address] [facility] [id number] [address] [place] [address] Jan, Other viral agents as the ca use of diseases classified elsewhere B97.89 and Acute upper respiratory infection, unspecified J06.9 [place] [address] [address] Jan, ADHD (attention deficit hyperactivity di sorder), combined type F90.2 ; Major depressive disorder, single episode, mild F32.0 and Anxiety disorder, unspecified type F41.9 [place] [address] [address] Jan, [place] [address] [address] Jan, ADHD (attention deficit hyperactivity di sorder), combined type F90.2 ; Major depressive disorder, single episode, mild F32.0 and Anxiety disorder, unspecified type F41.9 [place] [address] [address] Dec, Irritable bowel syndrome with diarrhea K 58.0 and Lower abdominal pain R10.30 [place] [address] [address] Dec, Hospital discharge follow-up Z09 ; Mesen teric adenitis I88.0 ; IBD (inflammatory bowel disease) K52.9 and Nausea R11.0 [place] [address] [address] Nov, ADHD (attention deficit hyperactivity di sorder), combined type F90.2 ; Major depressive disorder, single episode, mild F32.0 and Anxiety disorder, unspecified type F41.9 [place] [address] [address] Nov, Anxiety state F41.1 ; ADHD (attention de ficit hyperactivity disorder), combined type F90.2 ; Major depressive disorder, single episode, mild F32.0 and Anxiety disorder, unspecified type F41.9 [place] [address] [address] Oct, Anxiety state F41.1 ; ADHD (attention de ficit hyperactivity disorder), combined type F90.2 ; Major depressive disorder, single episode, mild F32.0 and Anxiety disorder, unspecified type F41.9 [place] [address] [address] Oct, ADHD (attention deficit hyperactivity di sorder), combined type F90.2 ; Major depressive disorder, single episode, mild F32.0 and Anxiety disorder, unspecified type F41.9 [place] [address] [address] Oct, Major depressive disorder, single episod e, mild F32.0 ; Anxiety state F41.1 ; ADHD (attention deficit hyperactivity disorder), combined type F90.2 and Depressive disorder, not elsewhere classified F32.9 [facility] [address] [place] [address] 16 Oct, 2016 [facility] [address] [address] Oct, Cellulitis L03.90 and Planta r wart of right foot B07.[address] [address] Aug, ADHD (attention deficit hyperactivity di sorder), combined type F90.2 ; Major depressive disorder, single episode, mild F32.0 and Anxiety disorder, unspecified type F41.9 [place] [address] [address] Aug, [place] [address] [address] Jul, ADHD (attention deficit hyperactivity di sorder), combined type F90.2 [place] [address] [address] Jul, Mesenteric adenitis I88.0 [place] [address] [address] June, [facility] [address] [place] [address] June, Lower abdominal pain R10.30 [facility] [address] [address] June, [place] [address] [address] June, ADHD (attention deficit hyperactivity di sorder), combined type F90.2 and Major depressive disorder, single episode, mild F32.0 [place] [address] [address] May, [place] [address] [address] May, ADHD (attention deficit hyperactivity di sorder), combined type F90.2 and Major depressive disorder, single episode, mild F32.0 [facility] [address] [facility] [id number] [address] [place] [address] Apr, Abdominal pain R10.9 and Gas troenteritis and colitis, viral A08.4 [place] [address] [address] Apr, [facility] [address] [place] [id number] [address] [place] [address] Mar, Acute urticaria L50.8 [place] [address] [address] Mar, [place] [address] [address] Feb, [facility] [address] [facility] [id number] [address] [place] [address] Feb, Gastroenteritis K52.9 [place] [address] [address] Feb, Irritant contact dermatitis due to awais tics L24.3 [place] [address] [address] Jan, [place] [address] [address] Jan, [place] [address] [address] Jan, ADHD (attention deficit hyperactivity di sorder), combined type F90.2 and Major depressive disorder, single episode, mild F32.0 [facility] [id number] [place] [address] Dec, Flexural eczema L20.82 [place] [address] [address] Dec, Encounter for test Z32.00 [place] [address] [address] Dec, [place] [address] [address] Dec, [place] [address] [address] Dec, [facility] [address] [place] [id number] [place] [address] Nov, Sore throat J02.9 and Pharyn gitis, unspecified etiology J02.9 [place] [address] [address] Nov, [place] [address] [address] Nov, [place] [address] [address] Nov, Generalized abdominal pain R10.84 and Sl ow transit constipation K59.01 [facility] [address] [id number] [place] [id number] Nov, Pharyngitis, unspecified etiology J02.9 and Rhinitis, unspecified type J31.0 [place] [address] [place] [id number] [place] [address] Oct, Depressive disorder, not elsewhere class ified F32.9 and ADHD (attention deficit hyperactivity disorder), combined type F90.2 [place] [address] [address] Oct, [facility] [address] [address] Oct, [facility] [address] [facility] [id number] [address] [place] [address] Oct, Strep throat J02.0 [facility] [address] [address] Oct, [place] [address] [address] Oct, Well woman exam with routine gynecologic al exam Z01.419 and Screening for STD sexually transmitted disease Z11.3 [place] [address] [address] Sep, ADHD (attention deficit hyperactivity di sorder), combined type F90.2 ; Anxiety state F41.1 and Depressive disorder, not elsewhere classified F32.9 [place] [address] [address] Sep, ADHD (attention deficit hyperactivity di sorder), combined type F90.2 and Depressive disorder, not elsewhere classified F32.9 [place] [address] [address] Aug, [facility] [address] [address] Aug, ADHD (attention deficit hyperactivity di sorder), combined type F90.2 and Depressive disorder, not elsewhere classified F32.9 [place] [address] [address] Aug, ADHD (attention deficit hyperactivity di sorder), combined type F90.2 ; Anxiety state F41.1 and Depressive disorder, not elsewhere classified F32.9 [place] [address] [address] Aug, [facility] [address] [place] [id number] [place] [address] Aug, [facility] [address] [place] [id number] [place] [address] Jul, ADHD (attention deficit hyperactivity di sorder), combined type F90.2 ; Depressive disorder, not elsewhere classified F32.9 and Anxiety state F41.1 [facility] [address] [place] [id number] [place] [address] Jul, [facility] [address] [place] [id number] [place] [address] Jul, ADHD (attention deficit hyperactivity di sorder), combined type F90.2 ; Anxiety state F41.1 and Depressive disorder, not elsewhere classified F32.9 [facility] [address] [place] [id number] [place] [address] June, [facility] [address] [id number] [place] [id number] June, Constipation K59.00 [facility] [address] [place] [id number] [place] [address] May, Constipation K59.00 [facility] [address] [facility] [id number] [address] [place] [address] May, Irritable bowel syndrome wit h diarrhea K58.0 [facility] [address] [place] [id number] [place] [address] May, [facility] [address] [place] [id number] [place] [address] May, [facility] [address] [place] [id number] [place] [address] 14 May, 2014 [facility] [address] [address] May, [facility] [address] [place] [id number] [place] [address] Jan, [facility] [address] [id number] [place] [address] Jan, [facility] [address] [facility] [id number] [place] [address] Jan, [facility] [address] [id number] [place] [address] Jan, [facility] [address] [id number] [place] [address] Jan, [facility] [address] [id number] [place] [address] Jan, [facility] [address] [id number] [place] [address] Nov, [facility] [address] [id number] [place] [address] Nov, [facility] [address] [id number] [place] [address] Oct, [facility] [address] [id number] [place] [address] Oct, [facility] [address] [id number] [place] [address] Sep, [facility] [address] [id number] [place] [address] Sep, [facility] [address] [id number] [place] [address] Aug, [facility] [address] [id number] [place] [address] Aug, [facility] [facility] [address] [id number] [place] [address] Aug, [facility] [address] [id number] [place] [address] Aug, [facility] [address] [id number] [place] [address] Aug, [facility] [address] [id number] [place] [address] Aug, [facility] [address] [id number] [place] [address] Aug, [facility] [address] [id number] [place] [address] Aug, [facility] [address] [id number] [place] [address] Jul, [facility] [address] [id number] [place] [address] Jul, [facility] [address] [id number] [place] [address] Jul, [facility] [address] [id number] [place] [address] Jul, [facility] [address] [id number] [place] [address] Jul, [facility] [address] [id number] [place] [address] Jul, [facility] [address] [id number] [place] [address] Jul, [facility] [address] [id number] [place] [address] Jul, [facility] [address] [id number] [place] [address] Jul, [facility] [address] [id number] [place] [address] June, [facility] [address] [id number] [place] [address] June, [facility] [address] [id number] [place] [address] May, [facility] [address] [id number] [place] [address] May, [facility] [address] [id number] [place] [address] May, [facility] [address] [id number] [place] [address] May, [facility] [address] [facility] [id number] [place] [address] May, [facility] [address] [facility] [id number] [place] [address] May, [facility] [address] [id number] [place] [address] May, [facility] [address] [id number] [place] [address] May, [facility] [address] [id number] [place] [address] May, [facility] [address] [id number] [place] [address] May, [facility] [address] [id number] [place] [address] May, [facility] [address] [id number] [place] [address] May, [facility] [address] [id number] [place] [address] Apr, [facility] [address] [id number] [place] [address] Apr, [facility] [address] [id number] [place] [address] Apr, [facility] [address] [id number] [place] [address] Apr, [facility] [address] [id number] [place] [address] Mar, [facility] [address] [id number] [place] [address] Mar, [facility] [address] [id number] [place] [address] Mar, [facility] [address] [id number] [place] [address] Mar, [facility] [address] [id number] [place] [address] Mar, 2013 [facility] [address] [id number] [place] [address] Mar, 2013 [facility] [address] [id number] [place] [address] Mar, 2013 [facility] [address] [id number] [place] [address] Mar, 2013 [facility] [address] [id number] [place] [address] Mar, 2013 [facility] [address] [id number] [place] [address] Mar, 2013 [facility] [address] [id number] [place] [address] 14 Mar, 2013 [facility] [address] [id number] [place] [address] 14 Mar, 2013 [facility] [address] [id number] [place] [address] Mar, 2013 [facility] [address] [id number] [place] [address] Mar, 2013 [facility] [address] [id number] [place] [address] Mar, 2013 [facility] [address] [id number] [place] [address] Mar, 2013 [facility] [address] [id number] [place] [address] Mar, 2013 [facility] [address] [id number] [place] [address] Mar, 2013 [facility] [address] [id number] [place] [address] 04 Mar, 2013 [facility] [address] [id number] [place] [address] 04 Mar, 2013 [facility] [address] [facility] [id number] [place] [address] Feb, [facility] [address] [facility] [id number] [place] [address] Feb, [facility] [address] [id number] [place] [address] Feb, [facility] [address] [id number] [place] [address] Feb, [facility] [address] [id number] [place] [address] Feb, [facility] [address] [id number] [place] [address] Feb, [facility] [address] [id number] [place] [address] Feb, [facility] [address] [id number] [place] [address] Feb, [facility] [address] [id number] [place] [address] Feb, [facility] [address] [id number] [place] [address] Feb, [facility] [address] [id number] [place] [address] Feb, [facility] [address] [id number] [place] [address] Feb, [facility] [address] [id number] [place] [address] Feb, [facility] [address] [facility] [id number] [place] [address] Feb, [facility] [address] [id number] [place] [address] Feb, [facility] [address] [id number] [place] [address] Feb, [facility] [address] [id number] [place] [address] Feb, [facility] [address] [id number] [place] [address] 15 Feb, 2013 [facility] [address] [id number] [place] [address] Feb, [facility] [address] [id number] [place] [address] Feb, [facility] [address] [id number] [place] [address] Feb, [facility] [address] [id number] [place] [address] Feb, [facility] [address] [id number] [place] [address] Feb, [facility] [address] [id number] [place] [address] Jan, [facility] [address] [id number] [place] [address] 24 Jan, 2013 [facility] [address] [id number] [place] [address] Jan, [facility] [address] [id number] [place] [address] 18 Jan, 2013 [facility] [address] [id number] [place] [address] 18 Jan, 2013 [facility] [address] [id number] [place] [address] 18 Jan, 2013 [facility] [address] [id number] [place] [address] 18 Jan, 2013 [facility] [address] [id number] [place] [address] 17 Jan, 2013 [facility] [address] [id number] [place] [address] 17 Jan, 2013 [facility] [address] [id number] [place] [address] 2013 [facility] [address] [id number] [place] [address] Jan, [facility] [address] [id number] [place] [address] Jan, [facility] [address] [id number] [place] [address] Jan, [facility] [address] [id number] [place] [address] Dec, [facility] [address] [id number] [place] [address] Dec, [facility] [address] [id number] [place] [address] Dec, [facility] [address] [id number] [place] [address] Dec, [facility] [address] [id number] [place] [address] Dec, [facility] [address] [id number] [place] [address] Dec, [facility] [address] [id number] [place] [address] Nov, [facility] [id number] [place] [address] Nov, [facility] [address] [id number] [place] [address] Nov, [facility] [address] [id number] [place] [address] Nov, [facility] [address] [id number] [place] [address] Nov, [facility] [address] [id number] [place] [address] Nov, [facility] [address] [id number] [place] [address] Oct, [facility] [address] [id number] [place] [address] 27 Oct, 2012 [facility] [address] [id number] [place] [address] Oct, [facility] [address] [id number] [place] [address] Oct, [facility] [address] [id number] [place] [address] Oct, [facility] [address] [id number] [place] [address] Oct, [facility] [address] [id number] [place] [address] Oct, IMMUNIZATIONS No Known Immunizations SOCIAL HISTORY Never Assessed REASON FOR VISIT PLAN OF CARE VITAL SIGNS Height 59 in 2013-04-18 Weight 149.1 lbs 2013-04-18 Temperature 97.5 degrees Fahrenheit 2013-04-18 Heart Rate 88 bpm 2013-04-18 Respiratory Rate 18 2013-04-18 Blood pressure systolic 118 mmHg 2013-04-18 Blood pressure diastolic 70 mmHg 2013-04-18 MEDICATIONS Unknown Medications RESULTS No Results PROCEDURES Procedure Date Ordered Result Body Site URINE-NO MICRO Apr 18, 2013 INSTRUCTIONS MEDICATIONS ADMINISTERED No Known Medications [...]
--- OUTSIDE RECORDS SUMMARY | 2019-06-25 21:24 | XMS REPORT ---
Author Author Sheyla JURDAO Organization [facility] Address [address] [place] [address] Care Team Providers Care Ab Initio Etl Developer Name Role Phone RHIANNON GENARO Unavailable PROBLEMS Type Condition ICD9-CM Code [id number] Code Onset Dates Condition S tatus SNOMED Code Problem ADHD (attention deficit hyperactivity disorder), combi amparo type F90.2 Active 53287875 Problem Unspecified mood [affective] disorder F39 Active 63590794 Problem Intrinsic atopic dermatitis L20.84 Ac tive 04342612 Problem Slow transit constipation K59.01 Acti ve 21400100 Problem Anxiety disorder, unspecified type F41.9 Active 827211887 Problem Major depressive disorder, single episode, mild F3 2.0 Active 50703244 Problem Irritable bowel syndrome with diarrhea K58.0 Active 036467486 ALLERGIES No Information ENCOUNTERS Encounter Location Date Diagnosis [place] [address] [address] May, [place] [address] [address] May, [place] [address] [address] Apr, [place] [address] [address] Apr, [place] [address] [address] Mar, Abnormal glucose tolerance in O99.810 [place] [address] [address] Mar, Second trimester Z33.1 ; Nause a and vomiting during O21.9 and 27 weeks gestation of Z3A.27 [place] [address] [place] [id number] [place] [address] Mar, [facility] [address] [facility]NOTE 3] [id number] [address] [place] [address] Mar, Non-intractable vomiting wit h nausea, unspecified vomiting type R11.2 [facility] [address] [address] Feb, [facility] [address] [address] Feb, Second trimester Z33.1 [facility] [address] [address] 13 Feb, 2019 Second trimester Z34.92 ; 21 w eeks gestation of Z3A.21 and Exposure to STD Z20.2 [facility] [address] [address] Feb, Second trimester Z33.1 [facility] [address] [facility] 3] [id number] [address] [place] [address] Feb, Non-intractable vomiting wit h nausea, unspecified vomiting type R11.2 [place] [address] [address] Jan, [facility] [address] [address] Jan, [place] [address] [address] Jan, First trimester Z34.91 [place] [address] [address] Jan, Second trimester Z34.92 and In trinsic atopic dermatitis L20.84 [place] [address] [address] Dec, First trimester Z34.91 [place] [address] [address] Dec, Second trimester Z34.92 and Fa kim history of neural tube defect Z82.0 [facility] [address] [address] Dec, [place] [address] [address] 13 Dec, 2018 Second trimester Z34.92 ; Fami ly history of neural tube defect Z82.0 ; History of asthma Z87.09 and Wheezing R06.2 [facility] [address] [address] 08 Dec, 2018 [facility] [address] [place] [id number] [place] [address] Dec, [place] [address] [address] Nov, care, subsequent in f irst trimester Z34.[address] [address] 24 Nov, 2018 First trimester Z34.91 ; 10 we eks gestation of Z3A.10 and Nausea and vomiting during O21.9 [place] [address] [address] 14 Nov, 2018 care, subsequent in f irst trimester Z34.81 [facility] [address] [place] [id number] [address] [place] [address] 05 Nov, 2018 Vomiting O21.9 [place] [address] [address] 26 Oct, 2018 care, subsequent in f irst trimester Z34.81 and 6 weeks gestation of Z3A.01 [place] [address] [address] Oct, [facility] [address] [place] [id number] [address] [place] [address] 06 Oct, 2018 Heat rash L74.0 [place] [address] [address] Aug, UTI symptoms R39.9 [facility] [address] [place] [id number] [place] [address] Aug, [facility] [address] [address] Aug, UTI symptoms R39.9 [facility] [address] [address] Aug, Hematuria, unspecified type R31.9 [facility] [address] [facility]NOTE 3] [id number] [address] [place] [address] Jul, Sore throat J02.9 ; UTI symp toms R39.9 and Hematuria, unspecified type R31.9 [place] [address] [address] June, Irritable bowel syndrome with diarrhea K 58.0 and Major depressive disorder, single episode, mild F32.0 [place] [address] [address] June, ADHD (attention deficit hyperactivity di sorder), combined type F90.2 ; Anxiety disorder, unspecified type F41.9 and Unspecified mood [affective] disorder F39 [place] [address] [address] May, ADHD (attention deficit hyperactivity di sorder), combined type F90.2 ; Anxiety disorder, unspecified type F41.9 ; Unspecified mood [affective] disorder F39 and Other mcfp (current) 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 Z79.899 [place] [address] [address] May, Slow transit constipation K59.01 [place] [address] [address] May, ADHD (attention deficit hyperactivity di sorder), combined type F90.2 [place] [address] [address] May, [place] [address] [address] May, Abdominal pain R10.9 [facility] [address] [address] Apr, [facility] [address] [address] Apr, [facility] [address] [address] Apr, ADHD (attention deficit hyperactivity di sorder), combined type F90.2 [facility] [address] [address] Apr, Abdominal pain R10.9 [place] [address] [address] Apr, [place] [address] [address] Mar, [place] [address] [address] Mar, ADHD (attention deficit hyperactivity di sorder), combined type F90.2 ; Anxiety disorder, unspecified type F41.9 and Unspecified mood [affective] disorder F39 [facility] [address] [address] Mar, Viral gastroenteritis A08.4 and Slow tra nsit constipation K59.01 [facility] [address] [facility]NOTE 3] [id number] [address] [place] [address] Mar, Viral gastroenteritis A08.4 [facility] [address] [address] Mar, ADHD (attention deficit hyperactivity di sorder), combined type F90.2 [facility] [address] [address] Feb, Slow transit constipation K59.01 ; Misse d period N92.6 and Nausea R11.0 [place] [address] [address] Feb, ADHD (attention deficit hyperactivity di sorder), combined type F90.2 [facility] [place] [address] [address] [place] [id number] [address] [place] [address] Jan, Nausea R11.0 and Viral upper respiratory tract infection J06.9 [place] [address] [address] Jan, [place] [address] [address] Jan, ADHD (attention deficit hyperactivity di sorder), combined type F90.2 ; Anxiety disorder, unspecified type F41.9 and Unspecified mood [affective] disorder F39 [place] [address] [address] Jan, Well woman exam with routine gynecologic al exam Z01.419 ; Routine screening for STI (sexually transmitted infection) Z11.3 and Vaginal jose B37.3 [place] [address] [address] Dec, [place] [address] [address] Dec, [place] [address] [address] Dec, ADHD (attention deficit hyperactivity di sorder), combined type F90.2 ; Anxiety disorder, unspecified type F41.9 and Unspecified mood [affective] disorder F39 [place] [address] [address] Dec, Unspecified mood [affective] disorder F3 9 ; Anxiety disorder, unspecified type F41.9 and ADHD (attention deficit hyperactivity disorder), combined type F90.2 [facility] [place] [address] [address] [facility]NOTE 3] [id number] [address] [place] [address] Nov, Other specified bacterial ag ents as the cause of diseases classified elsewhere B96.89 and Otitis media, unspecified, bilateral H66.93 [facility] [address] [facility]NOTE 3] [id number] [address] [place] [address] Nov, Sore throat J02.9 and Acute nasopharyngitis J00 [facility] [address] [address] Nov, ADHD (attention deficit hyperactivity di sorder), combined type F90.2 ; Anxiety disorder, unspecified type F41.9 and Unspecified mood [affective] disorder F39 [place] [address] [address] Oct, ADHD (attention deficit hyperactivity di sorder), combined type F90.2 [place] [address] [address] Oct, ADHD (attention deficit hyperactivity di sorder), combined type F90.2 ; Anxiety disorder, unspecified type F41.9 and Unspecified mood [affective] disorder F39 [place] [address] [address] Sep, ADHD (attention deficit hyperactivity di sorder), combined type F90.2 [place] [address] [address] Sep, [place] [address] [address] Aug, ADHD (attention deficit hyperactivity di sorder), combined type F90.2 ; Major depressive disorder, single episode, mild F32.0 and Anxiety disorder, unspecified type F41.9 [facility] [address] [facility][NOTE 3] [id number] [address] [place] [address] Aug, Sore throat J02.9 ; Other sp ecified bacterial agents as the cause of diseases classified elsewhere B96.89 and Acute tonsillitis due to other specified organisms J03.80 [place] [address] [address] Aug, ADHD (attention deficit hyperactivity di sorder), combined type F90.2 [place] [address] [address] Jul, ADHD (attention deficit hyperactivity di sorder), combined type F90.2 [facility] [address] [address] June, ADHD (attention deficit hyperactivity di sorder), combined type F90.2 ; Major depressive disorder, single episode, mild F32.0 and Anxiety disorder, unspecified type F41.9 [facility] [address] [address] June, [facility] [address] [address] June, ADHD (attention deficit hyperactivity di sorder), combined type F90.2 [facility] [address] [address] May, [facility] [address] [address] May, ADHD (attention deficit hyperactivity di sorder), combined type F90.2 ; Major depressive disorder, single episode, mild F32.0 and Anxiety disorder, unspecified type F41.9 [facility] [address] [address] May, Anxiety disorder, unspecified type F41.9 [facility] [address] [address] Apr, [facility] [address] [address] Apr, Anxiety disorder, unspecified type F41.9 [facility] [address] [address] Apr, Anxiety disorder, unspecified type F41.9 ; Major depressive disorder, single episode, mild F32.0 and ADHD (attention deficit hyperactivity disorder), combined type F90.2 [facility] [address] [address] Apr, [facility] [address] [address] Apr, ADHD (attention deficit hyperactivity di sorder), combined type F90.2 ; Anxiety state F41.1 ; Depressive disorder, not elsewhere classified F32.9 ; Major depressive disorder, single episode, mild F32.0 and Anxiety disorder, unspecified type F41.9 [place] [address] [address] Mar, ADHD (attention deficit hyperactivity di sorder), combined type F90.2 [place] [address] [address] Mar, Nausea R11.0 [place] [address] [address] Mar, Screening for STD sexually transmitted d isease Z11.3 ; Vaginal candidiasis B37.3 and Irritable bowel syndrome with diarrhea K58.0 [place] [address] [address] Mar, [place] [address] [address] Feb, ADHD (attention deficit hyperactivity di sorder), combined type F90.2 [place] [address] [address] Feb, Depressive disorder, not elsewhere class ified F32.9 ; Anxiety state F41.1 and ADHD (attention deficit hyperactivity disorder), combined type F90.2 [place] [address] [address] Feb, Depressive disorder, not elsewhere class ified F32.9 ; Anxiety state F41.1 and ADHD (attention deficit hyperactivity disorder), combined type F90.2 [place] [address] [address] Feb, ADHD (attention deficit hyperactivity di sorder), combined type F90.2 [facility] [address] [facility]NOTE 3] [id number] [address] [place] [address] Jan, Other viral agents as the ca use of diseases classified elsewhere B97.89 and Acute upper respiratory infection, unspecified J06.9 [place] [address] [address] Jan, ADHD (attention deficit hyperactivity di sorder), combined type F90.2 ; Major depressive disorder, single episode, mild F32.0 and Anxiety disorder, unspecified type F41.9 [place] [address] [address] Jan, [place] [address] [address] Jan, ADHD (attention deficit hyperactivity di sorder), combined type F90.2 ; Major depressive disorder, single episode, mild F32.0 and Anxiety disorder, unspecified type F41.9 [place] [address] [address] Dec, Irritable bowel syndrome with diarrhea K 58.0 and Lower abdominal pain R10.30 [place] [address] [address] Dec, Hospital discharge follow-up Z09 ; Mesen teric adenitis I88.0 ; IBD (inflammatory bowel disease) K52.9 and Nausea R11.0 [place] [address] [address] Nov, ADHD (attention deficit hyperactivity di sorder), combined type F90.2 ; Major depressive disorder, single episode, mild F32.0 and Anxiety disorder, unspecified type F41.9 [place] [address] [address] Nov, Anxiety state F41.1 ; ADHD (attention de ficit hyperactivity disorder), combined type F90.2 ; Major depressive disorder, single episode, mild F32.0 and Anxiety disorder, unspecified type F41.9 [place] [address] [address] Oct, Anxiety state F41.1 ; ADHD (attention de ficit hyperactivity disorder), combined type F90.2 ; Major depressive disorder, single episode, mild F32.0 and Anxiety disorder, unspecified type F41.9 [place] [address] [address] Oct, ADHD (attention deficit hyperactivity di sorder), combined type F90.2 ; Major depressive disorder, single episode, mild F32.0 and Anxiety disorder, unspecified type F41.9 [place] [address] [address] Oct, Major depressive disorder, single episod e, mild F32.0 ; Anxiety state F41.1 ; ADHD (attention deficit hyperactivity disorder), combined type F90.2 and Depressive disorder, not elsewhere classified F32.9 [facility] [address] [place] [address] 16 Oct, 2016 [facility] [address] [address] Oct, Cellulitis L03.90 and Planta r wart of right foot B07.[address] [address] Aug, ADHD (attention deficit hyperactivity di sorder), combined type F90.2 ; Major depressive disorder, single episode, mild F32.0 and Anxiety disorder, unspecified type F41.9 [place] [address] [address] Aug, [place] [address] [address] Jul, ADHD (attention deficit hyperactivity di sorder), combined type F90.2 [place] [address] [address] Jul, Mesenteric adenitis I88.0 [place] [address] [address] June, [facility] [address] [place] [address] June, Lower abdominal pain R10.30 [facility] [address] [address] June, [place] [address] [address] June, ADHD (attention deficit hyperactivity di sorder), combined type F90.2 and Major depressive disorder, single episode, mild F32.0 [place] [address] [address] May, [place] [address] [address] May, ADHD (attention deficit hyperactivity di sorder), combined type F90.2 and Major depressive disorder, single episode, mild F32.0 [facility] [address] [facility]NOTE 3] [id number] [address] [place] [address] Apr, Abdominal pain R10.9 and Gas troenteritis and colitis, viral A08.4 [place] [address] [address] Apr, [facility] [address] [place] [id number] [place] [address] Mar, Acute urticaria L50.8 [place] [address] [address] Mar, [place] [address] [address] Feb, [facility] [address] [facility]NOTE 3] [id number] [address] [place] [address] Feb, Gastroenteritis K52.9 [place] [address] [address] Feb, Irritant contact dermatitis due to awais tics L24.3 [place] [address] [address] Jan, [place] [address] [address] Jan, [place] [address] [address] Jan, ADHD (attention deficit hyperactivity di sorder), combined type F90.2 and Major depressive disorder, single episode, mild F32.0 [facility] [address] [place] [address] Dec, Flexural eczema L20.82 [place] [address] [address] Dec, Encounter for test Z32.00 [place] [address] [address] Dec, [place] [address] [address] Dec, [place] [address] [address] Dec, [facility] [address] [place] [id number] [place] [address] Nov, Sore throat J02.9 and Pharyn gitis, unspecified etiology J02.9 [place] [address] [address] Nov, [place] [address] [address] Nov, [place] [address] [address] Nov, Generalized abdominal pain R10.84 and Sl ow transit constipation K59.01 [facility] [address] [id number] [place] [id number] Nov, Pharyngitis, unspecified etiology J02.9 and Rhinitis, unspecified type J31.0 [place] [address] [place] [id number] [place] [address] Oct, Depressive disorder, not elsewhere class ified F32.9 and ADHD (attention deficit hyperactivity disorder), combined type F90.2 [place] [address] [address] Oct, [facility] [address] [address] Oct, [facility] [address] [facility]NOTE 3] [id number] [address] [place] [address] Oct, Strep throat J02.0 [facility] [address] [address] Oct, [place] [address] [address] Oct, Well woman exam with routine gynecologic al exam Z01.419 and Screening for STD sexually transmitted disease Z11.3 [place] [address] [address] Sep, ADHD (attention deficit hyperactivity di sorder), combined type F90.2 ; Anxiety state F41.1 and Depressive disorder, not elsewhere classified F32.9 [place] [address] [address] Sep, ADHD (attention deficit hyperactivity di sorder), combined type F90.2 and Depressive disorder, not elsewhere classified F32.9 [place] [address] [address] Aug, [facility] [address] [address] Aug, ADHD (attention deficit hyperactivity di sorder), combined type F90.2 and Depressive disorder, not elsewhere classified F32.9 [place] [address] [address] Aug, ADHD (attention deficit hyperactivity di sorder), combined type F90.2 ; Anxiety state F41.1 and Depressive disorder, not elsewhere classified F32.9 [place] [address] [address] Aug, [facility] [address] [place] [id number] [place] [address] Aug, [facility] [address] [place] [id number] [place] [address] Jul, ADHD (attention deficit hyperactivity di sorder), combined type F90.2 ; Depressive disorder, not elsewhere classified F32.9 and Anxiety state F41.1 [facility] [address] [place] [id number] [place] [address] Jul, [facility] [address] [place] [id number] [place] [address] Jul, ADHD (attention deficit hyperactivity di sorder), combined type F90.2 ; Anxiety state F41.1 and Depressive disorder, not elsewhere classified F32.9 [facility] [address] [place] [id number] [place] [address] June, [facility] [address] [facility] [address] [id number] [place] [id number] June, Constipation K59.00 [facility] [address] [place] [id number] [place] [address] May, Constipation K59.00 [facility] [address] [facility]NOTE 3] [id number] [address] [place] [address] May, Irritable bowel syndrome wit h diarrhea K58.0 [facility] [address] [place] [id number] [place] [address] May, [facility] [address] [place] [id number] [place] [address] May, [facility] [address] [place] [id number] [place] [address] 14 May, 2014 [facility] [address] [address] May, [facility] [address] [place] [id number] [place] [address] Jan, [facility] [address] [id number] [place] [address] Jan, [facility] [address] [facility] 3] [id number] [place] [address] Jan, [facility] [address] [id number] [place] [address] Jan, [facility] [address] [id number] [place] [id number] Jan, [facility] [address] [id number] [place] [address] Jan, [facility] [address] [id number] [place] [address] Nov, [facility] [address] [id number] [place] [address] Nov, [facility] [address] [id number] [place] [address] Oct, [facility] [address] [id number] [place] [address] Oct, [facility] [address] [id number] [place] [address] Sep, [facility] [address] [id number] [place] [id number] Sep, [facility] [address] [id number] [place] [address] Aug, [facility] [address] [id number] [place] [id number] Aug, [facility] [address] [id number] [place] [id number] Aug, [facility] [address] [id number] [place] [id number] Aug, [facility] [address] [id number] [place] [id number] Aug, [facility] [address] [id number] [place] [id number] Aug, [facility] [address] [id number] [place], [place] [id number] Aug, [facility] [address] [id number] [place] [id number] Aug, [facility] [address] [id number] [place] [address] Jul, [facility] [address] [id number] [place] [id number] Jul, [facility] [address] [id number] [place] [address] Jul, [facility] [address] [id number] [place] [address] Jul, [facility] [address] [id number] [place] [id number] Jul, [facility] [address] [id number] [place] [id number] Jul, [facility] [address] [id number] [place] [id number] Jul, [facility] [address] [id number] [place] [id number] Jul, [facility] [address] [id number] [place] [id number] Jul, [facility] [address] [id number] [place] [id number] June, [facility] [address] [id number] [place] [id number] June, [facility] [address] [id number] [place] [id number] May, [facility] [address] [id number] [place] [address] May, [facility] [address] [id number] [place] [id number] May, [facility] [address] [id number] [place] [id number] May, [facility] [address] [facility]NOTE 3] [id number] [facility] [place] [address] May, [facility] [address] [facility][NOTE 3] [id number] [facility] [place] [id number] May, [facility] [address] [id number] [facility] [place] [address] May, [facility] [address] [id number] [facility] [place] [address] May, [facility] [address] [id number] [facility] [place] [address] May, [facility] [address] [id number] [place] [id number] May, [facility] [address] [id number] [facility] [place] [address] May, [facility] [address] [id number] [place] [id number] May, [facility] [address] [id number] [facility] [place] [address] Apr, [facility] [address] [id number] [place] [id number] Apr, [facility] [address] [id number] [place] [id number] Apr, [facility] [address] [id number] [place] [id number] Apr, [facility] [address] [id number] [facility] [place] [address] Mar, [facility] [address] [id number] [place] [address] Mar, [facility] [address] [id number] [place] [address] Mar, [facility] [address] [id number] [place] [address] Mar, [facility] [address] [id number] [place] [id number] Mar, 2013 [facility] [address] [id number] [place] [id number] Mar, 2013 [facility] [address] [id number] [place] [address] Mar, 2013 [facility] [address] [id number] [place] [id number] Mar, 2013 [facility] [address] [id number] [place] [id number] Mar, 2013 [facility] [address] [id number] [place] [id number] Mar, 2013 [facility] [address] [id number] [place] [id number] 14 Mar, 2013 [facility] [address] [id number] [place] [address] 14 Mar, 2013 [facility] [address] [id number] [place] [id number] Mar, 2013 [facility] [address] [id number] [place] [id number] Mar, 2013 [facility] [address] [id number] [place] [address] Mar, 2013 [facility] [address] [id number] [place] [address] Mar, 2013 [facility] [address] [id number] [place] [address] Mar, 2013 [facility] [address] [id number] [place] [address] Mar, 2013 [facility] [address] [id number] [place] [address] 04 Mar, 2013 [facility] [address] [id number] [place] [address] 04 Mar, 2013 [facility] [address] [facility][NOTE 3] [id number] [place] [id number] Feb, [facility] [address] [facility][NOTE 3] [id number] [place] [id number] Feb, [facility] [address] [id number] [place] [id number] Feb, [facility] [address] [id number] [place] [address] Feb, [facility] [address] [id number] [place] [id number] Feb, [facility] [address] [id number] [place] [id number] Feb, [facility] [address] [id number] [place] [address] Feb, [facility] [address] [id number] [place] [address] Feb, [facility] [address] [id number] [place] [address] Feb, [facility] [address] [id number] [place] [address] Feb, [facility] [address] [id number] [place] [address] Feb, [facility] [address] [id number] [place] [id number] Feb, [facility] [address] [id number] [place] [address] Feb, [facility] [address] [facility][NOTE 3] [id number] [place] [id number] Feb, [facility] [address] [id number] [place] [address] Feb, [facility] [address] [id number] [place] [address] Feb, [facility] [address] [id number] [place] [address] Feb, [facility] [address] [id number] [place] [id number] 15 Feb, 2013 [facility] [address] [id number] [place] [id number] Feb, [facility] [address] [id number] [place] [address] Feb, [facility] [address] [id number] [place] [address] Feb, [facility] [address] [id number] [place] [id number] Feb, [facility] [address] [id number] [place] [address] Feb, [facility] [address] [id number] [place] [id number] Jan, [facility] [address] [id number] [place] [id number] 24 Jan, 2013 [facility] [address] [id number] [place] [id number] Jan, [facility] [address] [id number] [place] [id number] 18 Jan, 2013 [facility] [address] [id number] [place] [id number] 18 Jan, 2013 [facility] [address] [id number] [place] [id number] 18 Jan, 2013 [facility] [address] [id number] [place] [id number] 18 Jan, 2013 [facility] [address] [id number] [place] [id number] 17 Jan, 2013 [facility] [address] [id number] [place] [id number] 17 Jan, 2013 [facility] [address] [id number] [place] [id number] 2013 [facility] [address] [id number] [place] [id number] Jan, [facility] [address] [id number] [place] [id number] Jan, [facility] [address] [id number] [place] [address] Jan, [facility] [address] [id number] [place] [address] Dec, [facility] [address] [id number] [place] [address] Dec, [facility] [address] [id number] [place] [address] Dec, [facility] [address] [id number] [place] [id number] Dec, [facility] [address] [id number] [place] [id number] Dec, [facility] [address] [id number] [place] [address] Dec, [facility] [address] [id number] [place] [id number] Nov, [facility] [id number] [place] [address] Nov, [facility] [address] [id number] [place] [id number] Nov, [facility] [address] [id number] [place] [address] Nov, [facility] [address] [id number] [place] [address] Nov, [facility] [address] [id number] [place] [address] Nov, [facility] [address] [id number] [place] [address] Oct, [facility] [address] [id number] [place] [id number] 27 Oct, 2012 [facility] [address] [id number] [place] [address] Oct, [facility] [address] [id number] [place] [address] Oct, [facility] [address] [id number] [place] [address] Oct, [facility] [address] [id number] [place] [address] Oct, [facility] [address] [id number] [place] [address] Oct, IMMUNIZATIONS No Known Immunizations SOCIAL HISTORY Never Assessed REASON FOR VISIT PLAN OF CARE VITAL SIGNS Height 59 in 2013-03-26 Weight 137.25 lbs 2013-03-26 Temperature 97.6 degrees Fahrenheit 2013-03-26 Heart Rate 88 bpm 2013-03-26 Respiratory Rate 18 2013-03-26 Blood pressure systolic 128 mmHg 2013-03-26 Blood pressure diastolic 68 mmHg 2013-03-26 MEDICATIONS Unknown Medications RESULTS No Results PROCEDURES Procedure Date Ordered Result Body Site BIOPHYS PROFIL W/O NST Mar 26, 2013 URINE-NO MICRO Mar 26, 2013 INSTRUCTIONS MEDICATIONS ADMINISTERED No Known Medications [...]
--- OUTSIDE RECORDS SUMMARY | 2019-06-25 21:25 | XMS REPORT ---
Author Author Sheyla Vanessa Organization [facility] [place] Address [address] [place] [address] Care Team Providers Care Electronic Engraver Name Role Phone JERRI Vanessa Unavailable PROBLEMS Type Condition ICD9-CM Code [id number] Code Onset Dates Condition S tatus SNOMED Code Problem ADHD (attention deficit hyperactivity disorder), combi amparo type F90.2 Active 40995675 Problem Unspecified mood [affective] disorder F39 Active 84488679 Problem Intrinsic atopic dermatitis L20.84 Ac tive 29878214 Problem Slow transit constipation K59.01 Acti ve 43713264 Problem Anxiety disorder, unspecified type F41.9 Active 532755461 Problem Major depressive disorder, single episode, mild F3 2.0 Active 17613871 Problem Irritable bowel syndrome with diarrhea K58.0 Active [id number] ALLERGIES No Information ENCOUNTERS Encounter Location Date Diagnosis [place] [address] [address] May, [place] [address] [address] May, [place] [address] [address] Apr, [place] [address] [address] Apr, [place] [address] [address] Mar, Abnormal glucose tolerance in O99.810 [place] [address] [address] Mar, Second trimester Z33.1 ; Nause a and vomiting during O21.9 and 27 weeks gestation of Z3A.27 [place] [address] [id number] [place] [address] Mar, [facility] [address] [facility] [id number] [address] [place] [address] 07 Mar, 2019 Non-intractable vomiting wit h nausea, unspecified vomiting type R11.2 [facility] [address] [place] [id number] [place] [address] Feb, [facility] [address] [address] Feb, Second trimester Z33.1 [place] [address] [address] 13 Feb, 2019 Second trimester Z34.92 ; 21 w eeks gestation of Z3A.21 and Exposure to STD Z20.2 [facility] [address] [place] [id number] [place] [address] Feb, Second trimester Z33.1 [facility] [address] [facility] [id number] [place] [address] Feb, Non-intractable vomiting wit h nausea, unspecified vomiting type R11.2 [place] [address] [address] Jan, [place] [address] [address] Jan, [place] [address] [address] Jan, First trimester Z34.91 [place] [address] [address] Jan, Second trimester Z34.92 and In trinsic atopic dermatitis L20.84 [place] [address] [address] Dec, First trimester Z34.91 [place] [address] [address] Dec, Second trimester Z34.92 and Karen alvarez history of neural tube defect Z82.0 [facility] [address] [address] Dec, [facility] [address] [address] Dec, Second trimester Z34.92 ; Fami ly history of neural tube defect Z82.0 ; History of asthma Z87.09 and Wheezing R06.2 [facility] [address] [address] 08 Dec, 2018 [facility] [address] [place] [id number] [address] Dec, [facility] [address] [address] Nov, care, subsequent in f irst trimester Z34.81 [place] [address] [address] 24 Nov, 2018 First trimester Z34.91 ; 10 we eks gestation of Z3A.10 and Nausea and vomiting during O21.9 [place] [address] [address] 14 Nov, 2018 care, subsequent in f irst trimester Z34.81 [facility] [address] [place] [id number] [address] [place] [address] Nov, Vomiting O21.9 [place] [address] [address] 26 Oct, 2018 care, subsequent in f irst trimester Z34.81 and 6 weeks gestation of Z3A.01 [place] [address] [address] Oct, [facility] [address] [place] [id number] [address] [place] [address] 06 Oct, 2018 Heat rash L74.0 [place] [address] [address] Aug, UTI symptoms R39.9 [facility] [address] [address] Aug, [facility] [address] [address] Aug, UTI symptoms R39.9 [facility] [address] [address] Aug, Hematuria, unspecified type R31.9 [facility] [address] [facility] [id number] [address] [address] Jul, Sore throat J02.9 ; UTI symp toms R39.9 and Hematuria, unspecified type R31.9 [facility] [address] [address] June, Irritable bowel syndrome with diarrhea K 58.0 and Major depressive disorder, single episode, mild F32.0 [place] [address] [address] June, ADHD (attention deficit hyperactivity di sorder), combined type F90.2 ; Anxiety disorder, unspecified type F41.9 and Unspecified mood [affective] disorder F39 [place] [address] [address] May, ADHD (attention deficit hyperactivity di sorder), combined type F90.2 ; Anxiety disorder, unspecified type F41.9 ; Unspecified mood [affective] disorder F39 and Other prison (current) 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 Z79.899 [place] [address] [address] May, Slow transit constipation K59.01 [place] [address] [address] May, ADHD (attention deficit hyperactivity di sorder), combined type F90.2 [facility] [address] [address] May, [facility] [address] [address] May, Abdominal pain R10.9 [facility] [address] [address] Apr, [facility] [address] [address] Apr, [facility] [address] [address] Apr, ADHD (attention deficit hyperactivity di sorder), combined type F90.2 [facility] [address] [address] Apr, Abdominal pain R10.9 [facility] [address] [address] Apr, [facility] [address] [address] Mar, [facility] [address] [address] Mar, ADHD (attention deficit hyperactivity di sorder), combined type F90.2 ; Anxiety disorder, unspecified type F41.9 and Unspecified mood [affective] disorder F39 [facility] [address] [address] Mar, Viral gastroenteritis A08.4 and Slow tra nsit constipation K59.01 [facility] [address] [facility] [id number] [address] [address] Mar, Viral gastroenteritis A08.4 [facility] [address] [address] Mar, ADHD (attention deficit hyperactivity di sorder), combined type F90.2 [facility] [address] [address] Feb, Slow transit constipation K59.01 ; Misse d period N92.6 and Nausea R11.0 [facility] [address] [address] Feb, ADHD (attention deficit hyperactivity di sorder), combined type F90.2 [facility] [address] [place] [id number] [place] [address] Jan, Nausea R11.0 and Viral upper respiratory tract infection J06.9 [place] [address] [address] Jan, [place] [address] [address] Jan, ADHD (attention deficit hyperactivity di sorder), combined type F90.2 ; Anxiety disorder, unspecified type F41.9 and Unspecified mood [affective] disorder F39 [place] [address] [address] Jan, Well woman exam with routine gynecologic al exam Z01.419 ; Routine screening for STI (sexually transmitted infection) Z11.3 and Vaginal jose B37.3 [place] [address] [address] Dec, [place] [address] [address] Dec, [place] [address] [address] Dec, ADHD (attention deficit hyperactivity di sorder), combined type F90.2 ; Anxiety disorder, unspecified type F41.9 and Unspecified mood [affective] disorder F39 [place] [address] [address] Dec, Unspecified mood [affective] disorder F3 9 ; Anxiety disorder, unspecified type F41.9 and ADHD (attention deficit hyperactivity disorder), combined type F90.2 [facility] [address] [facility] [id number] [address] [place] [address] Nov, Other specified bacterial ag ents as the cause of diseases classified elsewhere B96.89 and Otitis media, unspecified, bilateral H66.93 [facility] WALK IN [facility] [address] [facility] [id number] [address] [address] Nov, Sore throat J02.9 and Acute nasopharyngitis J00 [facility] [address] [place] [id number] [place] [address] Nov, ADHD (attention deficit hyperactivity di sorder), combined type F90.2 ; Anxiety disorder, unspecified type F41.9 and Unspecified mood [affective] disorder F39 [facility] [address] [address] Oct, ADHD (attention deficit hyperactivity di sorder), combined type F90.2 [place] [address] [address] Oct, ADHD (attention deficit hyperactivity di sorder), combined type F90.2 ; Anxiety disorder, unspecified type F41.9 and Unspecified mood [affective] disorder F39 [place] [address] [address] Sep, ADHD (attention deficit hyperactivity di sorder), combined type F90.2 [place] [address] [address] Sep, [place] [address] [address] Aug, ADHD (attention deficit hyperactivity di sorder), combined type F90.2 ; Major depressive disorder, single episode, mild F32.0 and Anxiety disorder, unspecified type F41.9 [facility] [address] [facility] [id number] [address] [address] Aug, Sore throat J02.9 ; Other sp ecified bacterial agents as the cause of diseases classified elsewhere B96.89 and Acute tonsillitis due to other specified organisms J03.80 [facility] [address] [address] Aug, ADHD (attention deficit hyperactivity di sorder), combined type F90.2 [place] [address] [address] Jul, ADHD (attention deficit hyperactivity di sorder), combined type F90.2 [facility] [address] [place] [id number] [place] [address] June, ADHD (attention deficit hyperactivity di sorder), combined type F90.2 ; Major depressive disorder, single episode, mild F32.0 and Anxiety disorder, unspecified type F41.9 [facility] [address] [address] June, [facility] [address] [address] June, ADHD (attention deficit hyperactivity di sorder), combined type F90.2 [facility] [address] [place] [id number] [place] [address] May, [place] [address] [address] May, ADHD (attention deficit hyperactivity di sorder), combined type F90.2 ; Major depressive disorder, single episode, mild F32.0 and Anxiety disorder, unspecified type F41.9 [place] [address] [place] [id number] [place] [address] May, Anxiety disorder, unspecified type F41.9 [facility] [address] [place] [id number] [place] [address] Apr, [facility] [address] [address] Apr, Anxiety disorder, unspecified type F41.9 [facility] [address] [address] Apr, Anxiety disorder, unspecified type F41.9 ; Major depressive disorder, single episode, mild F32.0 and ADHD (attention deficit hyperactivity disorder), combined type F90.2 [facility] [address] [place] [id number] [place] [address] Apr, [facility] [address] [address] Apr, ADHD (attention deficit hyperactivity di sorder), combined type F90.2 ; Anxiety state F41.1 ; Depressive disorder, not elsewhere classified F32.9 ; Major depressive disorder, single episode, mild F32.0 and Anxiety disorder, unspecified type F41.9 [place] [address] [address] Mar, ADHD (attention deficit hyperactivity di sorder), combined type F90.2 [place] [address] [address] Mar, Nausea R11.0 [place] [address] [address] 13 Mar, 2017 Screening for STD sexually transmitted d isease Z11.3 ; Vaginal candidiasis B37.3 and Irritable bowel syndrome with diarrhea K58.0 [place] [address] [address] Mar, [place] [address] [address] Feb, ADHD (attention deficit hyperactivity di sorder), combined type F90.2 [place] [address] [address] Feb, Depressive disorder, not elsewhere class ified F32.9 ; Anxiety state F41.1 and ADHD (attention deficit hyperactivity disorder), combined type F90.2 [place] [address] [address] Feb, Depressive disorder, not elsewhere class ified F32.9 ; Anxiety state F41.1 and ADHD (attention deficit hyperactivity disorder), combined type F90.2 [place] [address] [address] Feb, ADHD (attention deficit hyperactivity di sorder), combined type F90.2 [facility] [address] [facility] [id number] [address] [address] Jan, Other viral agents as the ca use of diseases classified elsewhere B97.89 and Acute upper respiratory infection, unspecified J06.9 [place] [address] [address] Jan, ADHD (attention deficit hyperactivity di sorder), combined type F90.2 ; Major depressive disorder, single episode, mild F32.0 and Anxiety disorder, unspecified type F41.9 [place] [address] [address] Jan, [place] [address] [address] Jan, ADHD (attention deficit hyperactivity di sorder), combined type F90.2 ; Major depressive disorder, single episode, mild F32.0 and Anxiety disorder, unspecified type F41.9 [place] [address] [address] Dec, Irritable bowel syndrome with diarrhea K 58.0 and Lower abdominal pain R10.[address] [address] Dec, Hospital discharge follow-up Z09 ; Mesen teric adenitis I88.0 ; IBD (inflammatory bowel disease) K52.9 and Nausea R11.0 [place] [address] [address] Nov, ADHD (attention deficit hyperactivity di sorder), combined type F90.2 ; Major depressive disorder, single episode, mild F32.0 and Anxiety disorder, unspecified type F41.9 [place] [address] [address] Nov, Anxiety state F41.1 ; ADHD (attention de ficit hyperactivity disorder), combined type F90.2 ; Major depressive disorder, single episode, mild F32.0 and Anxiety disorder, unspecified type F41.9 [place] [address] [address] 26 Sep, 2017 Anxiety state F41.1 ; ADHD (attention de ficit hyperactivity disorder), combined type F90.2 ; Major depressive disorder, single episode, mild F32.0 and Anxiety disorder, unspecified type F41.9 [place] [address] [address] Oct, ADHD (attention deficit hyperactivity di sorder), combined type F90.2 ; Major depressive disorder, single episode, mild F32.0 and Anxiety disorder, unspecified type F41.9 [place] [address] [address] Oct, Major depressive disorder, single episod e, mild F32.0 ; Anxiety state F41.1 ; ADHD (attention deficit hyperactivity disorder), combined type F90.2 and Depressive disorder, not elsewhere classified F32.9 [facility] W[facility] IN [address] [address] Oct, [facility] [address] [address] Oct, Cellulitis L03.90 and Planta r wart of right foot B07.[address] [address] Aug, ADHD (attention deficit hyperactivity di sorder), combined type F90.2 ; Major depressive disorder, single episode, mild F32.0 and Anxiety disorder, unspecified type F41.9 [place] [address] [address] Aug, [address] [address] Jul, ADHD (attention deficit hyperactivity di sorder), combined type F90.[address] [address] Jul, Mesenteric adenitis I88.[address] [address] June, [facility] [address] [place] [address] [place] [address] June, Lower abdominal pain R10.30 [place] [address] [address] June, [place] [address] [address] June, ADHD (attention deficit hyperactivity di sorder), combined type F90.2 and Major depressive disorder, single episode, mild F32.0 [place] [address] [address] May, [place] [address] [address] May, ADHD (attention deficit hyperactivity di sorder), combined type F90.2 and Major depressive disorder, single episode, mild F32.0 [facility] [address] [address] Apr, Abdominal pain R10.9 and Gas troenteritis and colitis, viral A08.4 [place] [address] [address] Apr, [facility] [address] [place] [address] Mar, Acute urticaria L50.8 [place] [address] [address] Mar, [place] [address] [address] Feb, [facility] [address] [place] [address] Feb, Gastroenteritis K52.9 [place] [address] [address] Feb, Irritant contact dermatitis due to awais tics L24.3 [place] [address] [address] Jan, [facility] [address] [address] Jan, [place] [address] [address] Jan, ADHD (attention deficit hyperactivity di sorder), combined type F90.2 and Major depressive disorder, single episode, mild F32.0 [facility] [address] [facility] [id number] [address] [place] [address] Dec, Flexural eczema L20.82 [place] [address] [address] Dec, Encounter for test Z32.00 [place] [address] [address] Dec, [place] [address] [address] Dec, [place] [address] [address] Dec, [facility] WALK IN [facility] [address] [place] [id number] [address] [place] [address] Nov, Sore throat J02.9 and Pharyn gitis, unspecified etiology J02.9 [place] [address] [address] Nov, [place] [address] [address] Nov, [place] [address] [address] Nov, Generalized abdominal pain R10.84 and Sl ow transit constipation K59.01 [facility] [address] [facility] [id number] Nov, Pharyngitis, unspecified etiology J02.9 and Rhinitis, unspecified type J31.0 [place] [address] [place] [id number] [place] [address] Oct, Depressive disorder, not elsewhere class ified F32.9 and ADHD (attention deficit hyperactivity disorder), combined type F90.2 [place] [address] [address] Oct, [facility] [address] [address] Oct, [facility] [address] [facility] [id number] [address] [address] Oct, Strep throat J02.0 [facility] [address] [address] Oct, [place] [address] [address] Oct, Well woman exam with routine gynecologic al exam Z01.419 and Screening for STD sexually transmitted disease Z11.3 [place] [address] [address] Sep, ADHD (attention deficit hyperactivity di sorder), combined type F90.2 ; Anxiety state F41.1 and Depressive disorder, not elsewhere classified F32.9 [place] [address] [address] Sep, ADHD (attention deficit hyperactivity di sorder), combined type F90.2 and Depressive disorder, not elsewhere classified F32.9 [place] [address] [address] Aug, [facility] [address] [address] Aug, ADHD (attention deficit hyperactivity di sorder), combined type F90.2 and Depressive disorder, not elsewhere classified F32.9 [place] [address] [address] Aug, ADHD (attention deficit hyperactivity di sorder), combined type F90.2 ; Anxiety state F41.1 and Depressive disorder, not elsewhere classified F32.9 [place] [address] [address] Aug, [facility] [address] [place] [id number] [place] [address] Aug, [facility] [address] [id number] [place] [address] Jul, ADHD (attention deficit hyperactivity di sorder), combined type F90.2 ; Depressive disorder, not elsewhere classified F32.9 and Anxiety state F41.1 [facility] [address] [id number] [place] [address] Jul, [facility] [id number] [place] [address] Jul, ADHD (attention deficit hyperactivity di sorder), combined type F90.2 ; Anxiety state F41.1 and Depressive disorder, not elsewhere classified F32.9 [facility] [address] [id number] [place] [address] June, [facility] [address] [id number] [place] [id number] June, Constipation K59.00 [facility] [address] [id number] [place] [address] May, Constipation K59.00 [facility] [address] [facility] [id number] [address] [place] [address] May, Irritable bowel syndrome wit h diarrhea K58.0 [facility] [address] [id number] [place] [address] May, [facility] [id number] [place] [address] May, [facility] [address] [id number] [place] [address] 14 May, 2014 [facility] [address] [address] May, [facility] [address] [id number] [place] [address] Jan, [facility] [address] [id number] [place] [address] Jan, [facility] [address] [id number] [place] [address] Jan, [facility] [address] [id number] [place] [address] Jan, [facility] [address] [id number] [place] [address] Jan, [facility] [address] [id number] [place] [address] Jan, [facility] [address] [id number] [place] [address] Nov, [facility] [address] [id number] [place] [address] Nov, [facility] [address] [id number] [place] [address] Oct, [facility] [place] [facility] [address] [facility] [id number] [place] [address] Oct, [facility] [place] [facility] [address] [facility] [id number] [place] [address] Sep, [facility] [place] [facility] [address] [facility] [id number] [place] [address] Sep, [facility] [place] [facility] [address] [facility] [id number] [place] [address] Aug, [facility] [place] [facility] [address] [facility] [id number] [place] [address] Aug, [facility] [place] [facility] [address] [facility] [id number] [place] [address] Aug, [facility] [place] [facility] [address] [facility] [id number] [place] [address] Aug, [facility] [place] [facility] [address] [facility] [id number] [place] [address] Aug, [facility] [place] [facility] [address] [facility] [id number] [place] [address] Aug, 2013 [facility] [place] [facility] [address] [facility] [id number] [place] [address] Aug, [facility] [place] [facility] [address] [facility] [id number] [place] [address] Aug, [facility] [place] [facility] [address] [facility] [id number] [place] [address] Jul, [facility] [place] [facility] [address] [facility] [id number] [place] [address] Jul, [facility] [place] [facility] [address] [facility] [id number] [place] [address] Jul, [facility] [place] [facility] [address] [facility] [id number] [place] [address] Jul, [facility] [place] [facility] [address] [facility] [id number] [place] [address] Jul, [facility] [place] [facility] [address] [facility] [id number] [place] [address] Jul, [facility] [place] [facility] [address] [facility] [id number] [place] [address] Jul, [facility] [place] [facility] [address] [facility] [id number] [place] [address] Jul, [facility] [place] [facility] [address] [id number] [place] [address] Jul, [facility] [place] [facility] [address] [facility] [id number] [place] [address] June, [facility] [place] [facility] [address] [facility] [id number] [place] [address] June, [facility] [place] [facility] [address] [id number] [place] [address] May, [facility] [place] [facility] [address] [facility] [id number] [place] [address] May, [facility] [place] [facility] [address] [facility] [id number] [place] [address] May, [facility] [place] [facility] [address] [facility] [id number] [place] [address] May, [facility] [place] [facility] [address] [id number] [facility] [place] [address] May, [facility] [place] [facility] [address] [facility] [id number] [place] [address] May, [facility] [place] [facility] [address] [facility] [id number] [place] [address] May, [facility] [place] [facility] [address] [facility] [id number] [place] [address] May, [facility] [place] [facility] [address] [facility] [id number] [place] [address] May, [facility] [place] [facility] [address] [facility] [id number] [place] [address] May, [facility] [place] [facility] [address] [facility] [id number] [place] [address] May, [facility] [place] [facility] [address] [facility] [id number] [place] [address] May, [facility] [place] [facility] [address] [facility] [id number] [place] [address] Apr, [facility] [place] [facility] [address] [facility] [id number] [place] [address] Apr, [facility] [place] [facility] [address] [facility] [id number] [place] [address] Apr, [facility] [place] [facility] [address] [facility] [id number] [place] [address] Apr, [facility] [place] [facility] [address] [facility] [id number] [place] [address] Mar, [facility] [place] [facility] [address] [facility] [id number] [place] [address] Mar, [facility] [place] [facility] [address] [facility] [id number] [place] [address] Mar, [facility] [place] [facility] [address] [facility] [id number] [place] [address] Mar, [facility] [place] [facility] [address] [facility] [id number] [place] [address] Mar, [facility] [place] [facility] [address] [facility] [id number] [place] [address] Mar, [facility] [place] [facility] [address] [facility] [id number] [place] [address] Mar, [facility] [place] [facility] [address] [facility] [id number] [place] [address] Mar, [facility] [place] [facility] [address] [facility] [id number] [place] [address] Mar, [facility] [place] [facility] [address] [facility] [id number] [place] [address] Mar, [facility] [place] [facility] [address] [facility] [id number] [place] [address] 14 Mar, 2013 [facility] [place] [facility] [address] [facility] [id number] [place] [address] 14 Mar, 2013 [facility] [place] [facility] [address] [facility] [id number] [place] [address] Mar, [facility] [place] [facility] [address] [facility] [id number] [place] [address] Mar, [facility] [place] [facility] [address] [facility] [id number] [place] [address] Mar, [facility] [place] [facility] [address] [facility] [id number] [place] [address] Mar, 2013 [facility] [place] [facility] [address] [facility] [id number] [place] [address] Mar, [facility] [place] [facility] [address] [facility] [id number] [place] [address] Mar, [facility] [place] [facility] [address] [facility] [id number] [place] [address] 04 Mar, 2013 [facility] [place] [facility] [address] [facility] [id number] [place] [address] Mar, [facility] [place] [facility] [address] [facility] [id number] [place] [address] Feb, [facility] [place] [facility] [address] [facility] [id number] [place] [address] Feb, [facility] [place] [facility] [address] [facility] [id number] [place] [address] Feb, [facility] [place] [facility] [address] [facility] [id number] [place] [address] Feb, [facility] [place] [facility] [address] [facility] [id number] [place] [address] Feb, [facility] [place] [facility] [address] [facility] [id number] [place] [address] Feb, [facility] [place] [facility] [address] [facility] [id number] [place] [address] Feb, [facility] [place] [facility] [address] [facility] [id number] [place] [address] Feb, [facility] [place] [facility] [address] [facility] [id number] [place] [address] Feb, [facility] [place] [facility] [address] [facility] [id number] [place] [address] Feb, [facility] [place] [facility] [address] [facility] [id number] [place] [address] Feb, [facility] [place] [facility] [address] [facility] [id number] [place] [address] Feb, [facility] [place] [facility] [address] [facility] [id number] [place] [address] Feb, [facility] [place] [facility] [address] [facility] [id number] [place] [address] Feb, [facility] [place] [facility] [address] [facility] [id number] [place] [address] Feb, [facility] [place] [facility] [address] [facility] [id number] [place] [address] 15 Feb, 2013 [facility] [place] [facility] [address] [facility] [id number] [place] [address] 15 Feb, 2013 [facility] [address] [facility] [id number] [place] [address] 15 Feb, 2013 [facility] [place] [facility] [address] [facility] [id number] [place] [address] Feb, [facility] [place] [facility] [address] [facility] [id number] [place] [address] Feb, [facility] [place] [facility] [address] [facility] [id number] [place] [address] Feb, [facility] [place] [facility] [address] [facility] [id number] [place] [address] Feb, [facility] [place] [facility] [address] [facility] [id number] [place] [address] Feb, [facility] [place] [facility] [address] [facility] [id number] [place] [address] Jan, [facility] [place] [facility] [address] [facility] [id number] [place] [address] 24 Jan, 2013 [facility] [place] [facility] [address] [facility] [id number] [place] [address] Jan, [facility] [place] [facility] [address] [facility] [id number] [place] [address] 18 Jan, 2013 [facility] [place] [facility] [address] [facility] [id number] [place] [address] Jan, [facility] [place] [facility] [address] [facility] [id number] [place] [address] 18 Jan, 2013 [facility] [place] [facility] [address] [facility] [id number] [place] [address] 18 Jan, 2013 [facility] [place] [facility] [address] [facility] [id number] [place] [address] 17 Jan, 2013 [facility] [place] [facility] [address] [facility] [id number] [place] [address] 17 Jan, 2013 [facility] [place] [facility] [address] [facility] [id number] [place] [address] 2013 [facility] [place] [facility] [address] [facility] [id number] [place] [address] Jan, [facility] [place] [facility] [address] [facility] [id number] [place] [address] Jan, [facility] [place] [facility] [address] [facility] [id number] [place] [address] Jan, [facility] [place] [facility] [address] [facility] [id number] [place] [address] Dec, [facility] [place] [facility] [address] [facility] [id number] [place] [address] Dec, [facility] [place] [facility] [address] [facility] [id number] [place] [address] Dec, [facility] [place] [facility] [address] [facility] [id number] [place] [address] Dec, [facility] [place] [facility] [id number] [place] [address] Dec, [facility] [place] [facility] [id number] [place] [address] Dec, [facility] [place] [facility] [address] [facility] [id number] [place] [address] Nov, [facility] [place] [facility] [address] [facility] [id number] [place] [address] Nov, [facility] [place] [facility] [address] [facility] [id number] [place] [address] Nov, [facility] [place] [facility] [address] [facility] [id number] [place] [address] Nov, [facility] [place] [facility] [address] [facility] [id number] [place] [address] Nov, [facility] [place] [facility] [id number] [place] [address] Nov, [facility] [place] [facility] [address] [facility] [id number] [place] [address] 28 Oct, 2012 [facility] [place] [facility] [address] [facility] [id number] [place] [address] 27 Oct, 2012 [facility] [id number] [place] [address] Oct, [facility] [address] [id number] [place] [address] Oct, [facility] [address] [facility] [id number] [place] [address] Oct, [facility] [address] [facility] [id number] [place] [address] Oct, [facility] [address] [facility] [id number] [place] [address] Oct, IMMUNIZATIONS No Known Immunizations SOCIAL HISTORY [...]
--- OUTSIDE RECORDS SUMMARY | 2019-06-25 21:25 | XMS REPORT ---
Author Author Sheyla CHIN Organization [facility] Address [address] [place] [address] Care Team Providers Care Master Mechanic Name Role Phone LEONARD CHIN Unavailable PROBLEMS Type Condition ICD9-CM Code [id number] Code Onset Dates Condition S tatus SNOMED Code Problem ADHD (attention deficit hyperactivity disorder), combi amparo type F90.2 Active 38077507 Problem Unspecified mood [affective] disorder F39 Active 11450149 Problem Intrinsic atopic dermatitis L20.84 Ac tive 25093322 Problem Slow transit constipation K59.01 Acti ve 40964502 Problem Anxiety disorder, unspecified type F41.9 Active 547346534 Problem Major depressive disorder, single episode, mild F3 2.0 Active 56908485 Problem Irritable bowel syndrome with diarrhea K58.0 Active 478463580 ALLERGIES No Information ENCOUNTERS Encounter Location Date Diagnosis [place] [address] [address] May, [place] [address] [address] May, [place] [address] [address] Apr, [place] [address] [address] Apr, [place] [address] [address] Mar, Abnormal glucose tolerance in O99.810 [place] [address] [address] Mar, Second trimester Z33.1 ; Nause a and vomiting during O21.9 and 27 weeks gestation of Z3A.27 [place] [address] [place] [address] Mar, [facility] [address] [facility] [id number] [address] [place] [address] Mar, Non-intractable vomiting wit h nausea, unspecified vomiting type R11.2 [facility] [address] [place] [id number] [place] [address] Feb, [facility] [address] [address] Feb, Second trimester Z33.1 [facility] [address] [address] 13 Feb, 2019 Second trimester Z34.92 ; 21 w eeks gestation of Z3A.21 and Exposure to STD Z20.2 [facility] [address] [address] Feb, Second trimester Z33.1 [facility] [address] [facility] [id number] [address] [place] [address] Feb, Non-intractable vomiting wit h nausea, unspecified vomiting type R11.2 [facility] [address] [address] Jan, [facility] [address] [address] Jan, [facility] [address] [address] Jan, First trimester Z34.91 [facility] [address] [address] Jan, Second trimester Z34.92 and In trinsic atopic dermatitis L20.84 [facility] [address] [address] Dec, First trimester Z34.91 [facility] [address] [address] Dec, Second trimester Z34.92 and Fa kim history of neural tube defect Z82.0 [facility] [address] [address] Dec, [place] [address] [address] Dec, Second trimester Z34.92 ; Fami ly history of neural tube defect Z82.0 ; History of asthma Z87.09 and Wheezing R06.2 [facility] [address] [address] 08 Dec, 2018 [facility] [address] [place] [address] [address] Dec, [place] [address] [address] Nov, care, subsequent in f irst trimester Z34.[address] [address] Nov, First trimester Z34.91 ; 10 we eks gestation of Z3A.10 and Nausea and vomiting during O21.9 [place] [address] [address] 14 Nov, 2018 care, subsequent in f irst trimester Z34.81 [facility] [address] [place] [id number] [address] [place] [address] Nov, Vomiting O21.9 [place] [address] [address] Oct, care, subsequent in f irst trimester Z34.81 and 6 weeks gestation of Z3A.01 [place] [address] [address] Oct, [facility]ARE [address] [place] [id number] [address] [place] [address] Oct, Heat rash L74.0 [place] [address] [address] Aug, UTI symptoms R39.9 [facility] [address] [place] [id number] [place] [address] Aug, [facility] [address] [address] Aug, UTI symptoms R39.9 [facility] [address] [place] [id number] [place] [address] Aug, Hematuria, unspecified type R31.9 [facility] [address] [facility] [id number] [address] [place] [address] Jul, Sore throat J02.9 ; UTI symp toms R39.9 and Hematuria, unspecified type R31.9 [place] [address] [address] June, Irritable bowel syndrome with diarrhea K 58.0 and Major depressive disorder, single episode, mild F32.0 [place] [address] [address] June, ADHD (attention deficit hyperactivity di sorder), combined type F90.2 ; Anxiety disorder, unspecified type F41.9 and Unspecified mood [affective] disorder F39 [place] [address] [address] May, ADHD (attention deficit hyperactivity di sorder), combined type F90.2 ; Anxiety disorder, unspecified type F41.9 ; Unspecified mood [affective] disorder F39 and 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 [place] [address] [address] May, Slow transit constipation K59.01 [place] [address] [address] May, ADHD (attention deficit hyperactivity di sorder), combined type F90.2 [place] [address] [address] May, [place] [address] [address] May, Abdominal pain R10.9 [facility] [address] [address] Apr, [facility] [address] [address] Apr, [facility] [address] [address] Apr, ADHD (attention deficit hyperactivity di sorder), combined type F90.2 [facility] [address] [address] Apr, Abdominal pain R10.9 [place] [address] [address] Apr, [place] [address] [address] Mar, [place] [address] [address] Mar, ADHD (attention deficit hyperactivity di sorder), combined type F90.2 ; Anxiety disorder, unspecified type F41.9 and Unspecified mood [affective] disorder F39 [place] [address] [address] Mar, Viral gastroenteritis A08.4 and Slow tra nsit constipation K59.01 [facility] [address] [facility] [id number] [address] [place] [address] Mar, Viral gastroenteritis A08.4 [facility] [address] [address] Mar, ADHD (attention deficit hyperactivity di sorder), combined type F90.2 [facility] [address] [address] Feb, Slow transit constipation K59.01 ; Misse d period N92.6 and Nausea R11.0 [place] [address] [address] Feb, ADHD (attention deficit hyperactivity di sorder), combined type F90.2 [facility] WALK IN [place] [id number] [place] [address] Jan, Nausea R11.0 and Viral upper respiratory tract infection J06.[address] [address] Jan, [address] [address] Jan, ADHD (attention deficit hyperactivity di sorder), combined type F90.2 ; Anxiety disorder, unspecified type F41.9 and Unspecified mood [affective] disorder F39 [address] [address] Jan, Well woman exam with routine gynecologic al exam Z01.419 ; Routine screening for STI (sexually transmitted infection) Z11.3 and Vaginal jose B37.[address] [address] Dec, [address] [address] Dec, [address] [address] Dec, ADHD (attention deficit hyperactivity di sorder), combined type F90.2 ; Anxiety disorder, unspecified type F41.9 and Unspecified mood [affective] disorder F39 [address] [address] Dec, Unspecified mood [affective] disorder F3 9 ; Anxiety disorder, unspecified type F41.9 and ADHD (attention deficit hyperactivity disorder), combined type F90.[address] [facility] IN [place] [id number] [address] [place] [address] Nov, Other specified bacterial ag ents as the cause of diseases classified elsewhere B96.89 and Otitis media, unspecified, bilateral H66.93 [facility] WALK IN [address] [id number] [address] [place] [address] Nov, Sore throat J02.9 and Acute nasopharyngitis J00 [facility] [address] [address] Nov, ADHD (attention deficit hyperactivity di sorder), combined type F90.2 ; Anxiety disorder, unspecified type F41.9 and Unspecified mood [affective] disorder F39 [place] [address] [address] Oct, ADHD (attention deficit hyperactivity di sorder), combined type F90.2 [place] [address] [address] Oct, ADHD (attention deficit hyperactivity di sorder), combined type F90.2 ; Anxiety disorder, unspecified type F41.9 and Unspecified mood [affective] disorder F39 [place] [address] [address] Sep, ADHD (attention deficit hyperactivity di sorder), combined type F90.2 [place] [address] [address] Sep, [place] [address] [address] Aug, ADHD (attention deficit hyperactivity di sorder), combined type F90.2 ; Major depressive disorder, single episode, mild F32.0 and Anxiety disorder, unspecified type F41.[address] [facility] IN [facility] [address] [facility] [id number] [place] [address] Aug, Sore throat J02.9 ; Other sp ecified bacterial agents as the cause of diseases classified elsewhere B96.89 and Acute tonsillitis due to other specified organisms J03.80 [place] [address] [address] Aug, ADHD (attention deficit hyperactivity di sorder), combined type F90.2 [place] [address] [address] Jul, ADHD (attention deficit hyperactivity di sorder), combined type F90.2 [facility] [address] [address] June, ADHD (attention deficit hyperactivity di sorder), combined type F90.2 ; Major depressive disorder, single episode, mild F32.0 and Anxiety disorder, unspecified type F41.9 [facility] [address] [address] June, [facility] [address] [address] June, ADHD (attention deficit hyperactivity di sorder), combined type F90.2 [facility] [address] [address] May, [facility] [address] [address] May, ADHD (attention deficit hyperactivity di sorder), combined type F90.2 ; Major depressive disorder, single episode, mild F32.0 and Anxiety disorder, unspecified type F41.9 [facility] [address] [address] May, Anxiety disorder, unspecified type F41.9 [facility] [address] [address] Apr, [facility] [address] [address] Apr, Anxiety disorder, unspecified type F41.9 [facility] [address] [address] Apr, Anxiety disorder, unspecified type F41.9 ; Major depressive disorder, single episode, mild F32.0 and ADHD (attention deficit hyperactivity disorder), combined type F90.2 [facility] [address] [address] Apr, [facility] [address] [place] [id number] Apr, ADHD (attention deficit hyperactivity di sorder), combined type F90.2 ; Anxiety state F41.1 ; Depressive disorder, not elsewhere classified F32.9 ; Major depressive disorder, single episode, mild F32.0 and Anxiety disorder, unspecified type F41.9 [place] [address] [address] Mar, ADHD (attention deficit hyperactivity di sorder), combined type F90.2 [place] [address] [address] 20 Mar, 2017 Nausea R11.0 [place] [address] [address] 13 Mar, 2017 Screening for STD sexually transmitted d isease Z11.3 ; Vaginal candidiasis B37.3 and Irritable bowel syndrome with diarrhea K58.0 [place] [address] [address] Mar, [place] [address] [address] Feb, ADHD (attention deficit hyperactivity di sorder), combined type F90.2 [place] [address] [address] Feb, Depressive disorder, not elsewhere class ified F32.9 ; Anxiety state F41.1 and ADHD (attention deficit hyperactivity disorder), combined type F90.2 [place] [address] [address] Feb, Depressive disorder, not elsewhere class ified F32.9 ; Anxiety state F41.1 and ADHD (attention deficit hyperactivity disorder), combined type F90.2 [place] [address] [address] Feb, ADHD (attention deficit hyperactivity di sorder), combined type F90.2 [facility] [address] [facility] [id number] [address] [place] [address] Jan, Other viral agents as the ca use of diseases classified elsewhere B97.89 and Acute upper respiratory infection, unspecified J06.9 [place] [address] [address] Jan, ADHD (attention deficit hyperactivity di sorder), combined type F90.2 ; Major depressive disorder, single episode, mild F32.0 and Anxiety disorder, unspecified type F41.9 [place] [address] [address] Jan, [place] [address] [address] Jan, ADHD (attention deficit hyperactivity di sorder), combined type F90.2 ; Major depressive disorder, single episode, mild F32.0 and Anxiety disorder, unspecified type F41.9 [place] [address] [address] Dec, Irritable bowel syndrome with diarrhea K 58.0 and Lower abdominal pain R10.30 [place] [address] [address] Dec, Hospital discharge follow-up Z09 ; Mesen teric adenitis I88.0 ; IBD (inflammatory bowel disease) K52.9 and Nausea R11.0 [place] [address] [address] Nov, ADHD (attention deficit hyperactivity di sorder), combined type F90.2 ; Major depressive disorder, single episode, mild F32.0 and Anxiety disorder, unspecified type F41.9 [place] [address] [address] Nov, Anxiety state F41.1 ; ADHD (attention de ficit hyperactivity disorder), combined type F90.2 ; Major depressive disorder, single episode, mild F32.0 and Anxiety disorder, unspecified type F41.9 [place] [address] [address] Oct, Anxiety state F41.1 ; ADHD (attention de ficit hyperactivity disorder), combined type F90.2 ; Major depressive disorder, single episode, mild F32.0 and Anxiety disorder, unspecified type F41.9 [place] [address] [address] Oct, ADHD (attention deficit hyperactivity di sorder), combined type F90.2 ; Major depressive disorder, single episode, mild F32.0 and Anxiety disorder, unspecified type F41.9 [place] [address] [address] Oct, Major depressive disorder, single episod e, mild F32.0 ; Anxiety state F41.1 ; ADHD (attention deficit hyperactivity disorder), combined type F90.2 and Depressive disorder, not elsewhere classified F32.9 [facility] WALK IN [place] [address] [address] 16 Oct, 2016 [facility] [address] [address] Oct, Cellulitis L03.90 and Planta r wart of right foot B07.[address] [address] Aug, ADHD (attention deficit hyperactivity di sorder), combined type F90.2 ; Major depressive disorder, single episode, mild F32.0 and Anxiety disorder, unspecified type F41.9 [place] [address] [address] Aug, [place] [address] [address] Jul, ADHD (attention deficit hyperactivity di sorder), combined type F90.2 [place] [address] [address] Jul, Mesenteric adenitis I88.0 [place] [address] [address] June, [facility] WALK IN [address] [address] June, Lower abdominal pain R10.30 [facility] [address] [address] June, [place] [address] [address] June, ADHD (attention deficit hyperactivity di sorder), combined type F90.2 and Major depressive disorder, single episode, mild F32.0 [place] [address] [address] May, [place] [address] [address] May, ADHD (attention deficit hyperactivity di sorder), combined type F90.2 and Major depressive disorder, single episode, mild F32.0 [facility] [address] [place] [id number] [place] [address] Apr, Abdominal pain R10.9 and Gas troenteritis and colitis, viral A08.4 [place] [address] [address] Apr, [facility] N [place] [id number] [place] [address] Mar, Acute urticaria L50.8 [place] [address] [address] Mar, [place] [address] [address] Feb, [facility] [address] [facility] [id number] [address] [place] [address] Feb, Gastroenteritis K52.9 [place] [address] [address] Feb, Irritant contact dermatitis due to awais tics L24.3 [place] [address] [address] Jan, [place] [address] [address] Jan, [place] [address] [address] Jan, ADHD (attention deficit hyperactivity di sorder), combined type F90.2 and Major depressive disorder, single episode, mild F32.0 [facility] [address] [facility] [id number] [address] [place] [address] Dec, Flexural eczema L20.82 [place] [address] [address] Dec, Encounter for test Z32.00 [place] [address] [address] Dec, [place] [address] [address] Dec, [place] [address] [address] Dec, [facility] WALK IN [facility] [address] [place] [id number] [address] [place] [address] Nov, Sore throat J02.9 and Pharyn gitis, unspecified etiology J02.9 [place] [address] [address] Nov, [place] [address] [address] Nov, [place] [address] [address] Nov, Generalized abdominal pain R10.84 and Sl ow transit constipation K59.01 [facility] [address] [place] [id number] Nov, Pharyngitis, unspecified etiology J02.9 and Rhinitis, unspecified type J31.0 [place] [address] [place] [id number] [place] [address] Oct, Depressive disorder, not elsewhere class ified F32.9 and ADHD (attention deficit hyperactivity disorder), combined type F90.2 [place] [address] [address] Oct, [facility] [address] [address] Oct, [facility] [address] [facility] [id number] [address] [place] [address] Oct, Strep throat J02.0 [facility] [address] [address] Oct, [place] [address] [address] Oct, Well woman exam with routine gynecologic al exam Z01.419 and Screening for STD sexually transmitted disease Z11.3 [place] [address] [address] Sep, ADHD (attention deficit hyperactivity di sorder), combined type F90.2 ; Anxiety state F41.1 and Depressive disorder, not elsewhere classified F32.9 [place] [address] [address] Sep, ADHD (attention deficit hyperactivity di sorder), combined type F90.2 and Depressive disorder, not elsewhere classified F32.9 [place] [address] [address] Aug, [facility] [address] [address] Aug, ADHD (attention deficit hyperactivity di sorder), combined type F90.2 and Depressive disorder, not elsewhere classified F32.9 [place] [address] [address] Aug, ADHD (attention deficit hyperactivity di sorder), combined type F90.2 ; Anxiety state F41.1 and Depressive disorder, not elsewhere classified F32.9 [place] [address] [address] Aug, [facility] [id number] [place] [address] Aug, [facility] [address] [place] [id number] [place] [address] Jul, ADHD (attention deficit hyperactivity di sorder), combined type F90.2 ; Depressive disorder, not elsewhere classified F32.9 and Anxiety state F41.1 [facility] [address] [place] [id number] [place] [address] Jul, [facility] [address] [place] [id number] [place] [address] Jul, ADHD (attention deficit hyperactivity di sorder), combined type F90.2 ; Anxiety state F41.1 and Depressive disorder, not elsewhere classified F32.9 [facility] [id number] [place] [address] June, [facility] [id number] [place] [id number] June, Constipation K59.00 [facility] [id number] [place] [address] May, Constipation K59.00 [facility] [address] [facility] [id number] [address] [place] [address] May, Irritable bowel syndrome wit h diarrhea K58.0 [facility] [id number] [place] [address] May, [facility] [address] [place] [id number] [place] [address] May, [facility] [id number] [place] [address] 14 May, 2014 [facility] [address] [place] [id number] [place] [address] May, [facility] [id number] [place] [address] Jan, [facility] [address] [place] [id number] [place] [address] Jan, [facility] [id number] [place] [address] Jan, [facility] [id number] [place] [address] Jan, [facility] [id number] [place] [address] Jan, [facility] [id number] [place] [address] Jan, [facility] [id number] [place] [address] Nov, [facility] [id number] [place] [address] Nov, [facility] [id number] [place] [address] Oct, [facility] [id number] [place] [address] Oct, [facility] [id number] [place] [address] Sep, [facility] [id number] [place] [address] Sep, [facility] [id number] [place] [address] Aug, [facility] [id number] [place] [address] Aug, [facility] [id number] [place] [address] Aug, [facility] [id number] [place] [address] Aug, [facility] [id number] [place] [address] Aug, [facility] [id number] [place] [address] Aug, [facility] [address] [facility] [id number] [place] [address] Aug, [facility] [id number] [place] [address] Aug, [facility] [id number] [place] [address] Jul, [facility] [id number] [place] [address] Jul, [facility] [address] [facility] [id number] [place] [address] Jul, [facility] [id number] [place] [address] Jul, [facility] [id number] [place] [address] Jul, [facility] [id number] [place] [address] Jul, [facility] [id number] [place] [address] Jul, [facility] [id number] [place] [address] Jul, [facility] [id number] [place] [address] Jul, [facility] [id number] [place] [address] June, [facility] [id number] [place] [address] June, [facility] [id number] [place] [address] May, [facility] [id number] [place] [address] May, [facility] [id number] [place] [address] May, [facility] [id number] [place] [address] May, [facility] [address] [facility] [id number] [facility] [place] [address] May, [facility] [id number] [facility] [place] [address] May, [facility] [id number] [facility] [place] [address] May, [facility] [id number] [facility] [place] [address] May, [facility] [id number] [facility] [place] [address] May, [facility] [id number] [place] [address] May, [facility] [id number] [place] [address] May, [facility] [id number] [facility] [place] [address] May, [facility] [id number] [place] [address] Apr, [facility] [id number] [place] [address] Apr, [facility] [id number] [place] [address] Apr, [facility] [id number] [place] [address] Apr, [facility] [id number] [place] [address] Mar, [facility] [id number] [place] [address] Mar, [facility] [id number] [place] [address] Mar, [facility] [id number] [place] [address] Mar, [facility] [id number] [place] [address] Mar, [facility] [id number] [place] [address] Mar, [facility] [id number] [place] [address] Mar, [facility] [id number] [place] [address] Mar, [facility] [id number] [place] [address] Mar, [facility] [id number] [place] [address] Mar, [facility] [id number] [place] [address] 14 Mar, 2013 [facility] [id number] [place] [address] 14 Mar, 2013 [facility] [id number] [place] [address] Mar, [facility] [id number] [place] [address] Mar, 2013 [facility] [id number] [place] [address] Mar, [facility] [id number] [place] [address] Mar, 2013 [facility] [id number] [place] [address] Mar, 2013 [facility] [id number] [place] [address] Mar, [facility] [id number] [place] [address] 04 Mar, 2013 [facility] [id number] [place] [address] Mar, [facility] [id number] [place] [address] Feb, [facility] [address] [facility] [id number] [place] [address] Feb, [facility] [id number] [place] [address] Feb, [facility] [id number] [place] [address] Feb, [facility] [id number] [place] [address] Feb, [facility] [id number] [place] [address] Feb, [facility] [id number] [place] [address] Feb, [facility] [id number] [place] [address] Feb, [facility] [id number] [place] [address] Feb, [facility] [id number] [place] [address] Feb, [facility] [id number] [place] [address] Feb, [facility] [id number] [place] [address] Feb, [facility] [id number] [place] [address] Feb, [facility] [id number] [place] [address] Feb, [facility] [id number] [place] [address] Feb, [facility] [id number] [place] [address] Feb, [facility] [id number] [place] [address] Feb, [facility] [id number] [place] [address] 15 Feb, 2013 [facility] [id number] [place] [address] Feb, [facility] [id number] [place] [address] Feb, [facility] [id number] [place] [address] Feb, [facility] [id number] [place] [address] Feb, [facility] [id number] [place] [address] Feb, [facility] [id number] [place] [address] Jan, [facility] [id number] [place] [address] 24 Jan, 2013 [facility] [id number] [place] [address] Jan, [facility] [id number] [place] [address] 18 Jan, 2013 [facility] [id number] [place] [address] Jan, [facility] [id number] [place] [address] 18 Jan, 2013 [facility] [id number] [place] [address] 18 Jan, 2013 [facility] [id number] [place] [address] 17 Jan, 2013 [facility] [id number] [place] [address] 17 Jan, 2013 [facility] [id number] [place] [address] 2013 [facility] [id number] [place] [address] Jan, [facility] [id number] [place] [address] Jan, [facility] [id number] [place] [address] Jan, [facility] [id number] [place] [address] Dec, [facility] [id number] [place] [address] Dec, [facility] [id number] [place] [address] Dec, [facility] [id number] [place] [address] Dec, [facility] [id number] [place] [address] Dec, [facility] [id number] [place] [address] Dec, [facility] [id number] [place] [address] Nov, [facility] [id number] [place] [address] Nov, [facility] [id number] [place] [address] Nov, [facility] [id number] [place] [address] Nov, [facility] [id number] [place] [address] Nov, [facility] [id number] [place] [address] Nov, [facility] [id number] [place] [address] 28 Oct, 2012 [facility] [id number] [place] [address] 27 Oct, 2012 [facility] [id number] [place] [address] Oct, [facility] [id number] [place] [address] Oct, [facility] [id number] [place] [address] Oct, [facility] [id number] [place] [address] Oct, [facility] [id number] [place] [address] Oct, IMMUNIZATIONS No Known Immunizations SOCIAL HISTORY [...]
--- OUTSIDE RECORDS SUMMARY | 2019-06-25 21:25 | XMS REPORT ---
Author Author Sheyla CHIN Organization [facility] Address [address] [place] [address] Care Team Providers Care Educational Psychology Professor Name Role Phone LEONARD CHIN Unavailable PROBLEMS Type Condition ICD9-CM Code HHO30-SJ Code Onset Dates Condition S tatus SNOMED Code Problem ADHD (attention deficit hyperactivity disorder), combi amparo type F90.2 Active 78101654 Problem Unspecified mood [affective] disorder F39 Active 36378237 Problem Intrinsic atopic dermatitis L20.84 Ac tive 82601815 Problem Slow transit constipation K59.01 Acti ve 12337885 Problem Anxiety disorder, unspecified type F41.9 Active 542372891 Problem Major depressive disorder, single episode, mild F3 2.0 Active 37820044 Problem Irritable bowel syndrome with diarrhea K58.0 Active [id number] ALLERGIES No Information ENCOUNTERS Encounter Location Date Diagnosis [facility] [address] [address] 25 Mar, 2019 Second trimester Z33.1 [facility] [address] [facility] [id number] [address] [address] 07 Mar, 2019 Non-intractable vomiting wit h nausea, unspecified vomiting type R11.2 [facility] [id number] [place] [address] Feb, [facility] [address] [address] Feb, Second trimester Z33.1 [facility] [address] [place] [address] 13 Feb, 2019 Second trimester Z34.92 ; 21 w eeks gestation of Z3A.21 and Exposure to STD Z20.2 [facility] [address] [address] Feb, Second trimester Z33.1 [facility] [address] [facility] [id number] [address] [place] [address] 05 Feb, 2019 Non-intractable vomiting wit h nausea, unspecified vomiting type R11.2 [facility] [id number] [place] [address] Jan, [facility] [address] [address] Jan, [facility] [address] [address] Jan, First trimester Z34.91 [facility] [address] [address] 16 Jan, 2019 Second trimester Z34.92 and In trinsic atopic dermatitis L20.84 [facility] [address] [address] 27 Dec, 2018 First trimester Z34.91 [facility] [address] [address] 22 Dec, 2018 Second trimester Z34.92 and Karen alvarez history of neural tube defect Z82.0 [facility] [address] [place] [address] 18 Dec, 2018 [facility] [address] [address] Dec, Second trimester Z34.92 ; Fami ly history of neural tube defect Z82.0 ; History of asthma Z87.09 and Wheezing R06.2 [facility] [id number] [place] [address] Dec, [facility] [address] [facility] [place] [place] [address] Dec, [facility] [address] [place] [address] Nov, care, subsequent in f irst trimester Z34.81 [place] [address] [facility] [place] [address] Nov, First trimester Z34.91 ; 10 we eks gestation of Z3A.10 and Nausea and vomiting during O21.9 [place] [address] [facility] [place] [address] 14 Nov, 2018 care, subsequent in f irst trimester Z34.81 [facility] [address] [place] [address] 05 Nov, 2018 Vomiting O21.9 [place] [address] [address] 26 Oct, 2018 care, subsequent in f irst trimester Z34.81 and 6 weeks gestation of Z3A.01 [place] [address] [address] Oct, [facility] [place] [address] [id number] [address] [place] [address] Oct, Heat rash L74.0 [place] [address] [address] Aug, UTI symptoms R39.9 [place] [address] [place] [address] Aug, [place] [address] [address] Aug, UTI symptoms R39.9 [place] [id number] [place] [address] Aug, Hematuria, unspecified type R31.9 [facility] [place] [id number] [place] [address] Jul, Sore throat J02.9 ; UTI symp toms R39.9 and Hematuria, unspecified type R31.9 [place] [id number] [place] [address] June, Irritable bowel syndrome with diarrhea K 58.0 and Major depressive disorder, single episode, mild F32.0 [facility] [address] [address] June, ADHD (attention deficit hyperactivity di sorder), combined type F90.2 ; Anxiety disorder, unspecified type F41.9 and Unspecified mood [affective] disorder F39 [facility] [address] [address] May, ADHD (attention deficit hyperactivity di sorder), combined type F90.2 ; Anxiety disorder, unspecified type F41.9 ; Unspecified mood [affective] disorder F39 and Other fci (current) 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 Z79.899 [facility] [address] [address] May, Slow transit constipation K59.01 [facility] [address] [address] May, ADHD (attention deficit hyperactivity di sorder), combined type F90.2 [facility] [address] [address] May, [facility] [address] [address] May, Abdominal pain R10.9 [facility] [address] [address] Apr, [facility] [address] [address] Apr, [facility] [address] [address] Apr, ADHD (attention deficit hyperactivity di sorder), combined type F90.2 [facility] [address] [address] Apr, Abdominal pain R10.9 [facility] [address] [address] Apr, [facility] [address] [address] Mar, [facility] [address] [address] Mar, ADHD (attention deficit hyperactivity di sorder), combined type F90.2 ; Anxiety disorder, unspecified type F41.9 and Unspecified mood [affective] disorder F39 [facility] [address] [address] Mar, Viral gastroenteritis A08.4 and Slow tra nsit constipation K59.01 [facility] [address] [facility] [id number] [address] [address] Mar, Viral gastroenteritis A08.4 [place] [address] [address] Mar, ADHD (attention deficit hyperactivity di sorder), combined type F90.2 [place] [address] [address] Feb, Slow transit constipation K59.01 ; [facility] N92.6 and Nausea R11.0 [place] [address] [address] Feb, ADHD (attention deficit hyperactivity di sorder), combined type F90.2 [facility] [address] [facility] [id number] [place] [address] Jan, Nausea R11.0 and Viral upper respiratory tract infection J06.9 [place] [address] [address] Jan, [place] [address] [address] Jan, ADHD (attention deficit hyperactivity di sorder), combined type F90.2 ; Anxiety disorder, unspecified type F41.9 and Unspecified mood [affective] disorder F39 [facility] [address] [address] Jan, Well woman exam with routine gynecologic al exam Z01.419 ; Routine screening for STI (sexually transmitted infection) Z11.3 and Vaginal jose B37.3 [place] [address] [address] Dec, [place] [address] [address] Dec, [place] [address] [address] Dec, ADHD (attention deficit hyperactivity di sorder), combined type F90.2 ; Anxiety disorder, unspecified type F41.9 and Unspecified mood [affective] disorder F39 [place] [address] [address] Dec, Unspecified mood [affective] disorder F3 9 ; Anxiety disorder, unspecified type F41.9 and ADHD (attention deficit hyperactivity disorder), combined type F90.2 [place] [address] [place] [id number] [place] [address] Nov, Other specified bacterial ag ents as the cause of diseases classified elsewhere B96.89 and Otitis media, unspecified, bilateral H66.93 [place] [id number] [place] [address] Nov, Sore throat J02.9 and Acute nasopharyngitis J00 [place] [address] [address] Nov, ADHD (attention deficit hyperactivity di sorder), combined type F90.2 ; Anxiety disorder, unspecified type F41.9 and Unspecified mood [affective] disorder F39 [place] [address] [place] [id number] [place] [address] Oct, ADHD (attention deficit hyperactivity di sorder), combined type F90.2 [place] [address] [address] Oct, ADHD (attention deficit hyperactivity di sorder), combined type F90.2 ; Anxiety disorder, unspecified type F41.9 and Unspecified mood [affective] disorder F39 [facility] [address] [id number] [place] [address] Sep, ADHD (attention deficit hyperactivity di sorder), combined type F90.2 [facility] [id number] [place] [address] Sep, [facility] [id number] [place] [address] Aug, ADHD (attention deficit hyperactivity di sorder), combined type F90.2 ; Major depressive disorder, single episode, mild F32.0 and Anxiety disorder, unspecified type F41.9 [facility] [address] [facility] [id number] [address] [place] [address] Aug, Sore throat J02.9 ; Other sp ecified bacterial agents as the cause of diseases classified elsewhere B96.89 and Acute tonsillitis due to other specified organisms J03.80 [facility] [id number] [place] [address] Aug, ADHD (attention deficit hyperactivity di sorder), combined type F90.2 [facility] [address] [address] [id number] [place] [address] Jul, ADHD (attention deficit hyperactivity di sorder), combined type F90.2 [facility] [id number] [place] [address] June, ADHD (attention deficit hyperactivity di sorder), combined type F90.2 ; Major depressive disorder, single episode, mild F32.0 and Anxiety disorder, unspecified type F41.9 [facility] [address] [id number] [place] [address] June, [place] [address] [address] June, ADHD (attention deficit hyperactivity di sorder), combined type F90.2 [facility] [id number] [place] [address] May, [facility] [address] [address] May, ADHD (attention deficit hyperactivity di sorder), combined type F90.2 ; Major depressive disorder, single episode, mild F32.0 and Anxiety disorder, unspecified type F41.9 [place] [address] [address] May, Anxiety disorder, unspecified type F41.9 [place] [address] [address] Apr, [place] [address] [address] Apr, Anxiety disorder, unspecified type F41.9 [place] [address] [address] Apr, Anxiety disorder, unspecified type F41.9 ; Major depressive disorder, single episode, mild F32.0 and ADHD (attention deficit hyperactivity disorder), combined type F90.2 [place] [address] [address] Apr, [place] [address] [address] Apr, ADHD (attention deficit hyperactivity di sorder), combined type F90.2 ; Anxiety state F41.1 ; Depressive disorder, not elsewhere classified F32.9 ; Major depressive disorder, single episode, mild F32.0 and Anxiety disorder, unspecified type F41.9 [place] [address] [address] Mar, ADHD (attention deficit hyperactivity di sorder), combined type F90.2 [place] [address] [address] Mar, Nausea R11.0 [place] [address] [address] 13 Mar, 2017 Screening for STD sexually transmitted d isease Z11.3 ; Vaginal candidiasis B37.3 and Irritable bowel syndrome with diarrhea K58.0 [facility] [address] [address] Mar, [facility] [address] [address] Feb, ADHD (attention deficit hyperactivity di sorder), combined type F90.2 [facility] [address] [address] Feb, Depressive disorder, not elsewhere class ified F32.9 ; Anxiety state F41.1 and ADHD (attention deficit hyperactivity disorder), combined type F90.2 [place] [address] [address] Feb, Depressive disorder, not elsewhere class ified F32.9 ; Anxiety state F41.1 and ADHD (attention deficit hyperactivity disorder), combined type F90.2 [place] [address] [address] Feb, ADHD (attention deficit hyperactivity di sorder), combined type F90.2 [facility] [address] [facility] [id number] [address] [place] [address] Jan, Other viral agents as the ca use of diseases classified elsewhere B97.89 and Acute upper respiratory infection, unspecified J06.9 [place] [address] [address] Jan, ADHD (attention deficit hyperactivity di sorder), combined type F90.2 ; Major depressive disorder, single episode, mild F32.0 and Anxiety disorder, unspecified type F41.9 [place] [address] [address] Jan, [place] [address] [address] Jan, ADHD (attention deficit hyperactivity di sorder), combined type F90.2 ; Major depressive disorder, single episode, mild F32.0 and Anxiety disorder, unspecified type F41.9 [place] [address] [address] Dec, Irritable bowel syndrome with diarrhea K 58.0 and Lower abdominal pain R10.30 [place] [address] [address] 09 Dec, 2016 Hospital discharge follow-up Z09 ; Mesen teric adenitis I88.0 ; IBD (inflammatory bowel disease) K52.9 and Nausea R11.0 [place] [address] [address] Nov, ADHD (attention deficit hyperactivity di sorder), combined type F90.2 ; Major depressive disorder, single episode, mild F32.0 and Anxiety disorder, unspecified type F41.9 [place] [address] [address] Nov, Anxiety state F41.1 ; ADHD (attention de ficit hyperactivity disorder), combined type F90.2 ; Major depressive disorder, single episode, mild F32.0 and Anxiety disorder, unspecified type F41.9 [place] [address] [address] Oct, Anxiety state F41.1 ; ADHD (attention de ficit hyperactivity disorder), combined type F90.2 ; Major depressive disorder, single episode, mild F32.0 and Anxiety disorder, unspecified type F41.9 [place] [address] [address] Oct, ADHD (attention deficit hyperactivity di sorder), combined type F90.2 ; Major depressive disorder, single episode, mild F32.0 and Anxiety disorder, unspecified type F41.9 [place] [address] [address] Oct, Major depressive disorder, single episod e, mild F32.0 ; Anxiety state F41.1 ; ADHD (attention deficit hyperactivity disorder), combined type F90.2 and Depressive disorder, not elsewhere classified F32.9 [facility] [address] [facility] [id number] [address] [place] [address] Oct, [facility] [address] [place] [id number] [place] [address] Oct, Cellulitis L03.90 and Planta r wart of right foot B07.0 [facility] [address] [address] Aug, ADHD (attention deficit hyperactivity di sorder), combined type F90.2 ; Major depressive disorder, single episode, mild F32.0 and Anxiety disorder, unspecified type F41.9 [facility] [address] [address] Aug, [place] [address] [address] Jul, ADHD (attention deficit hyperactivity di sorder), combined type F90.2 [facility] [address] [address] Jul, Mesenteric adenitis I88.0 [facility] [address] [address] June, [facility] [address] [place] [id number] [place] [address] June, Lower abdominal pain R10.30 [facility] [address] [address] June, [facility] [address] [address] June, ADHD (attention deficit hyperactivity di sorder), combined type F90.2 and Major depressive disorder, single episode, mild F32.0 [facility] [address] [address] May, [facility] [address] [address] May, ADHD (attention deficit hyperactivity di sorder), combined type F90.2 and Major depressive disorder, single episode, mild F32.0 [facility] [address] [address] Apr, Abdominal pain R10.9 and Gas troenteritis and colitis, viral A08.4 [place] [address] [address] Apr, [facility] [address] [address] Mar, Acute urticaria L50.8 [place] [address] [address] Mar, [place] [address] [address] Feb, [facility] [place] [address] [address] Feb, Gastroenteritis K52.9 [place] [address] [address] Feb, Irritant contact dermatitis due to awais tics L24.3 [place] [address] [address] Jan, [place] [address] [address] Jan, [place] [address] [address] Jan, ADHD (attention deficit hyperactivity di sorder), combined type F90.2 and Major depressive disorder, single episode, mild F32.0 [facility], [facility] [address] [address] Dec, Flexural eczema L20.82 [place] [address] [address] Dec, Encounter for test Z32.00 [place] [address] [address] 11 Dec, 2015 [place] [address] [address] Dec, [facility] [address] [id number] [place] [address] Dec, [facility] [address] [facility] [id number] [address] [address] Nov, Sore throat J02.9 and Pharyn gitis, unspecified etiology J02.9 [facility] [id number] [place] [address] Nov, [facility] [id number] [place] [address] Nov, [facility] [id number] [place] [address] Nov, Generalized abdominal pain R10.84 and Sl ow transit constipation K59.01 [facility] [address] [id number] [place] [id number] Nov, Pharyngitis, unspecified etiology J02.9 and Rhinitis, unspecified type J31.0 [facility] [id number] [place] [address] Oct, Depressive disorder, not elsewhere class ified F32.9 and ADHD (attention deficit hyperactivity disorder), combined type F90.2 [facility] [address] [place] [id number] [place] [address] Oct, [facility] [address] [id number] [place] [address] Oct, [facility] [address] [facility] [id number] [place] [address] Oct, Strep throat J02.0 [facility] [id number] [place] [address] 16 Oct, 2015 [facility] [id number] [place] [address] 09 Oct, 2016 Well woman exam with routine gynecologic al exam Z01.419 and Screening for STD sexually transmitted disease Z11.3 [place] [address] [address] Sep, ADHD (attention deficit hyperactivity di sorder), combined type F90.2 ; Anxiety state F41.1 and Depressive disorder, not elsewhere classified F32.9 [facility] [address] [address] Sep, ADHD (attention deficit hyperactivity di sorder), combined type F90.2 and Depressive disorder, not elsewhere classified F32.9 [facility] [address] [address] Aug, [facility] [address] [address] Aug, ADHD (attention deficit hyperactivity di sorder), combined type F90.2 and Depressive disorder, not elsewhere classified F32.9 [facility] [address] [address] Aug, ADHD (attention deficit hyperactivity di sorder), combined type F90.2 ; Anxiety state F41.1 and Depressive disorder, not elsewhere classified F32.9 [facility] [address] [address] [place] [address] Aug, [facility] [address] [address] Aug, [facility] [address] [address] Jul, ADHD (attention deficit hyperactivity di sorder), combined type F90.2 ; Depressive disorder, not elsewhere classified F32.9 and Anxiety state F41.1 [facility] [address] [address] Jul, [facility] [address] [address] Jul, ADHD (attention deficit hyperactivity di sorder), combined type F90.2 ; Anxiety state F41.1 and Depressive disorder, not elsewhere classified F32.9 [facility] [address] [address] June, [facility] [address] [facility] [id number] [place] [id number] June, Constipation K59.00 [facility] [address] [id number] [place] [address] 28 May, 2015 Constipation K59.00 [facility] [address] [facility] [id number] [address] [place] [address] May, Irritable bowel syndrome wit h diarrhea K58.0 [facility] [address] [id number] [place] [address] 15 May, 2015 [facility] [address] [place] [id number] [place] [address] 15 May, 2015 [facility] [address] [id number] [place] [address] 14 May, 2014 [facility] [address] [place] [address] [id number] [place] [address] May, [facility] [address] [id number] [place] [address] Jan, [facility] [address] [place] [address] [id number] [place] [address] Jan, [facility] [address] [id number] [place] [address] Jan, [facility] [address] [place] [address] [id number] [place] [address] Jan, [facility] [address] [id number] [place] [address] Jan, [facility] [address] [id number] [place] [address] Jan, [facility] [address] [place] [id number] [place] [address] Nov, [facility] [address] [place] [address] [id number] [place] [address] Nov, [facility] [address] [place] [address] [id number] [place] [address] Oct, [facility] [address] [id number] [place] [address] Oct, [facility] [address] [facility] [id number] [place] [address] Sep, [facility] [address] [id number] [place] [address] Sep, [facility] [address] [id number] [place] [address] Aug, [facility] [address] [facility] [id number] [place] [address] Aug, [facility] [address] [id number] [place] [address] Aug, [facility] [address] [id number] [place] [address] Aug, [facility] [address] [id number] [place] [address] Aug, [facility] [address] [id number] [place] [address] Aug, [facility] [address] [id number] [place] [address] Aug, [facility] [address] [id number] [place] [address] Aug, [facility] [address] [id number] [place] [address] Jul, [facility] [address] [id number] [place] [address] Jul, [facility] [address] [id number] [place] [address] Jul, [facility] [address] [id number] [place] [address] Jul, [facility] [address] [id number] [place] [address] Jul, [facility] [id number] [place] [address] Jul, [facility] [address] [id number] [place] [address] Jul, [facility] [address] [id number] [place] [address] Jul, [facility] [address] [id number] [place] [address] Jul, [facility] [address] [id number] [place] [address] June, [facility] [id number] [place] [address] June, [facility] [id number] [place] [address] May, [facility] [id number] [place] [address] May, [facility] [id number] [place] [address] May, [facility] [id number] [place] [address] May, [facility] [id number] [place] [address] May, [facility] [id number] [place] [address] May, [facility] [id number] [place] [address] May, [facility] [id number] [place] [address] May, [facility] [id number] [place] [address] May, [facility] [id number] [place] [address] May, [facility] [id number] [place] [address] May, [facility] [address] [facility] [id number] [place] [address] May, [facility] [address] [facility] [id number] [facility] [address] Apr, [facility] [id number] [place] [address] Apr, [facility] [id number] [place] [address] Apr, [facility] [address] [facility] [id number] [place] [address] Apr, [facility] [id number] [place] [address] Mar, [facility] [id number] [place] [address] Mar, [facility] [id number] [place] [address] Mar, [facility] [id number] [place] [address] Mar, [facility] [id number] [place] [address] Mar, [facility] [id number] [place] [address] Mar, [facility] [id number] [place] [address] Mar, [facility] [id number] [place] [address] Mar, [facility] [id number] [place] [address] Mar, [facility] [id number] [place] [address] Mar, [facility] [id number] [place] [address] 14 Mar, 2013 [facility] [address] [facility] [id number] [place] [address] 14 Mar, 2013 [facility] [address] [facility] [id number] [place] [address] Mar, [facility] [address] [facility] [id number] [place] [address] Mar, [facility] [id number] [place] [address] Mar, [facility] [address] [facility] [id number] [place] [address] Mar, [facility] [id number] [place] [address] Mar, [facility] [id number] [place] [address] Mar, [facility] [id number] [place] [address] Mar, [facility] [id number] [place] [address] Mar, [facility] [id number] [place] [address] Feb, [facility] [id number] [place] [address] Feb, [facility] [id number] [place] [address] Feb, [facility] [id number] [place] [address] Feb, [facility] [id number] [place] [address] Feb, [facility] [id number] [place] [address] Feb, [facility] [id number] [place] [address] Feb, [facility] [id number] [place] [address] Feb, [facility] [address] [id number] [place] [address] Feb, [facility] [id number] [place] [address] Feb, [facility] [id number] [place] [address] Feb, [facility] [id number] [place] [address] Feb, [facility] [id number] [place] [address] Feb, [facility] [id number] [place] [address] Feb, [facility] [id number] [place] [address] Feb, [facility] [id number] [place] [address] Feb, [facility] [id number] [place] [address] Feb, [facility] [id number] [place] [address] Feb, [facility] [id number] [place] [address] Feb, [facility] [id number] [place] [address] Feb, [facility] [address] [id number] [place] [address] Feb, [facility] [address] [id number] [place] [address] Feb, [facility] [id number] [place] [address] Feb, [facility] [id number] [place] [address] Jan, [facility] [id number] [place] [address] 24 Jan, 2012 [facility] [id number] [place] [address] 19 Jan, 2013 [facility] [id number] [place] [address] 18 Jan, 2013 [facility] [id number] [place] [address] 18 Jan, 2013 [facility] [id number] [place] [address] 18 Jan, 2013 [facility] [id number] [place] [address] 18 Jan, 2013 [facility] [id number] [place] [address] 17 Jan, 2013 [facility] [id number] [place] [address] 17 Jan, 2013 [facility] [id number] [place] [address] Jan, [facility] [id number] [place] [address] Jan, [facility] [id number] [place] [address] 04 Jan, 2013 [facility] [id number] [place] [address] Jan, [facility] [id number] [place] [address] 20 Dec, 2012 [facility] [id number] [place] [address] 20 Dec, 2012 [facility] [id number] [place] [address] 20 Dec, 2012 [facility] [id number] [place] [address] 20 Dec, 2012 [facility] [id number] [place] [address] Dec, [facility] [id number] [place] [address] Dec, [facility] [id number] [place] [address] Nov, [facility] [id number] [place] [address] Nov, [facility] [id number] [place] [address] Nov, [facility] [id number] [place] [address] Nov, [facility] [address] [address] Nov, [facility] [id number] [place] [address] Nov, [facility] [address] [address] Oct, [facility] [id number] [place] [address] Oct, [facility] [address] [address] Oct, [facility] [id number] [place] [address] Oct, [facility] [address] [address] Oct, [facility] [id number] [place] [address] Oct, [facility] [address] [address] Oct, IMMUNIZATIONS No Known Immunizations SOCIAL HISTORY [...]
--- OUTSIDE RECORDS SUMMARY | 2019-06-25 21:26 | XMS REPORT ---
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 Name Role Phone Migration, Doctor Unavailable Unavailable PROBLEMS Type Condition ICD9-CM Code [id number] Code Onset Dates Condition S tatus SNOMED Code Problem ADHD (attention deficit hyperactivity disorder), combi amparo type F90.2 Active 69915879 Problem Unspecified mood [affective] disorder F39 Active 20477655 Problem Intrinsic atopic dermatitis L20.84 Ac tive 67508682 Problem Slow transit constipation K59.01 Acti ve 68247389 Problem Anxiety disorder, unspecified type F41.9 Active 944576527 Problem Major depressive disorder, single episode, mild F3 2.0 Active 99209687 Problem Irritable bowel syndrome with diarrhea K58.0 Active 735740477 ALLERGIES No Information ENCOUNTERS Encounter Location Date Diagnosis [facility] [address] [address] 12 Mar, 2019 [facility] [address] [place] [id number] [place] [address] 07 Mar, 2019 Non-intractable vomiting wit h nausea, unspecified vomiting type R11.2 [facility] [address] [address] Feb, [facility] [address] [address] Feb, Second trimester Z33.1 [facility] [address] [address] 13 Feb, 2019 Second trimester Z34.92 ; 21 w eeks gestation of Z3A.21 and Exposure to STD Z20.2 [facility] [address] [address] 07 Feb, 2019 Second trimester Z33.1 [facility] [address] [place] [id number] [place] [address], [place] [address] Feb, Non-intractable vomiting wit h nausea, unspecified vomiting type R11.2 [place] [address] [address] Jan, [facility] [address] [address] Jan, [place] [address] [address] Jan, First trimester Z34.91 [place] [address] [address] 16 Jan, 2019 Second trimester Z34.92 and In trinsic atopic dermatitis L20.84 [place] [address] [address] Dec, First trimester Z34.[address] [address] Dec, Second trimester Z34.92 and Fa kim history of neural tube defect Z82.[address] [address] 18 Dec, [address] [address] Dec, Second trimester Z34.92 ; Fami ly history of neural tube defect Z82.0 ; History of asthma Z87.09 and Wheezing R06.2 [place] [id number] [place] [address] Dec, [facility] [address] [facility] [address] Dec, [address] [address] Nov, care, subsequent in f irst trimester Z34.81 [place] [address] [address] 24 Oct, 2019 First trimester Z34.91 ; 10 we eks gestation of Z3A.10 and Nausea and vomiting during O21.9 [place] [address] [address] 14 Nov, 2018 care, subsequent in f irst trimester Z34.81 [facility] [place] [address] [facility] [id number] [address] [place] [address] 05 Nov, 2018 Vomiting O21.9 [place] [address] [address] 26 Oct, 2018 care, subsequent in f irst trimester Z34.81 and 6 weeks gestation of Z3A.01 [place] [address] [address] Oct, [facility] [place] [address] [place] [id number] [place] [address] Oct, Heat rash L74.0 [place] [address] [address] Aug, UTI symptoms R39.9 [place] [address] [address] Aug, [place] [address] [address] Aug, UTI symptoms R39.9 [place] [address] [address] Aug, Hematuria, unspecified type R31.9 [facility] [place] [address] [place] [id number] [place] [address] Jul, Sore throat J02.9 ; UTI symp toms R39.9 and Hematuria, unspecified type R31.9 [place] [address] [address] June, Irritable bowel syndrome with diarrhea K 58.0 and Major depressive disorder, single episode, mild F32.0 [place] [address] [address] June, ADHD (attention deficit hyperactivity di sorder), combined type F90.2 ; Anxiety disorder, unspecified type F41.9 and Unspecified mood [affective] disorder F39 [facility] [address] [address] May, ADHD (attention deficit hyperactivity di sorder), combined type F90.2 ; Anxiety disorder, unspecified type F41.9 ; Unspecified mood [affective] disorder F39 and Other intermediate frame tender (current) 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 Z79.899 [facility] [address] [address] May, Slow transit constipation K59.01 [facility] [address] [address] May, ADHD (attention deficit hyperactivity di sorder), combined type F90.2 [facility] [address] [address] May, [facility] [address] [address] May, Abdominal pain R10.9 [facility] [address] [address] Apr, [facility] [address] [address] Apr, [facility] [address] [address] Apr, ADHD (attention deficit hyperactivity di sorder), combined type F90.2 [facility] [address] [address] Apr, Abdominal pain R10.9 [facility] [address] [address] Apr, [facility] [address] [address] Mar, [facility] [address] [place] [id number] Mar, ADHD (attention deficit hyperactivity di sorder), combined type F90.2 ; Anxiety disorder, unspecified type F41.9 and Unspecified mood [affective] disorder F39 [place] [address] [address] Mar, Viral gastroenteritis A08.4 and Slow tra nsit constipation K59.01 [facility] [address] [facility] [id number] [place] [address] Mar, Viral gastroenteritis A08.4 [place] [address] [address] Mar, ADHD (attention deficit hyperactivity di sorder), combined type F90.2 [place] [address] [address] Feb, Slow transit constipation K59.01 ; [facility]6 and Nausea R11.0 [place] [address] [address] Feb, ADHD (attention deficit hyperactivity di sorder), combined type F90.2 [facility] [place] [address] [place] [id number] [place] [address] Jan, Nausea R11.0 and Viral upper respiratory tract infection J06.9 [place] [address] [address] Jan, [place] [address] [address] Jan, ADHD (attention deficit hyperactivity di sorder), combined type F90.2 ; Anxiety disorder, unspecified type F41.9 and Unspecified mood [affective] disorder F39 [place] [address] [address] Jan, Well woman exam with routine gynecologic al exam Z01.419 ; Routine screening for STI (sexually transmitted infection) Z11.3 and Vaginal jose B37.3 [place] [id number] [place] [address] Dec, [facility] [address] [address] Dec, [facility] [address] [address] Dec, ADHD (attention deficit hyperactivity di sorder), combined type F90.2 ; Anxiety disorder, unspecified type F41.9 and Unspecified mood [affective] disorder F39 [place] [address] [address] Dec, Unspecified mood [affective] disorder F3 9 ; Anxiety disorder, unspecified type F41.9 and ADHD (attention deficit hyperactivity disorder), combined type F90.2 [facility] [address] [place] [id number] [place] [address] Nov, Other specified bacterial ag ents as the cause of diseases classified elsewhere B96.89 and Otitis media, unspecified, bilateral H66.93 [facility] [address] [place] [id number] [place] [address] Nov, Sore throat J02.9 and Acute nasopharyngitis J00 [place] [address] [place] [id number] [place] [address] Nov, ADHD (attention deficit hyperactivity di sorder), combined type F90.2 ; Anxiety disorder, unspecified type F41.9 and Unspecified mood [affective] disorder F39 [place] [address] [address] Oct, ADHD (attention deficit hyperactivity di sorder), combined type F90.2 [place] [address] [address] Oct, ADHD (attention deficit hyperactivity di sorder), combined type F90.2 ; Anxiety disorder, unspecified type F41.9 and Unspecified mood [affective] disorder F39 [place] [address] [address] Sep, ADHD (attention deficit hyperactivity di sorder), combined type F90.2 [facility] [id number] [place] [address] Sep, [facility] [id number] [place] [address] Aug, ADHD (attention deficit hyperactivity di sorder), combined type F90.2 ; Major depressive disorder, single episode, mild F32.0 and Anxiety disorder, unspecified type F41.9 [facility] [address] [facility] [id number] [address] [place] [address] Aug, Sore throat J02.9 ; Other sp ecified bacterial agents as the cause of diseases classified elsewhere B96.89 and Acute tonsillitis due to other specified organisms J03.80 [facility] [id number] [place] [address] Aug, ADHD (attention deficit hyperactivity di sorder), combined type F90.2 [place] [id number] [place] [address] Jul, ADHD (attention deficit hyperactivity di sorder), combined type F90.2 [facility] [id number] [place] [address] June, ADHD (attention deficit hyperactivity di sorder), combined type F90.2 ; Major depressive disorder, single episode, mild F32.0 and Anxiety disorder, unspecified type F41.9 [facility] [id number] [place] [address] June, [facility] [address] [address] June, ADHD (attention deficit hyperactivity di sorder), combined type F90.2 [facility] [id number] [place] [address] May, [facility] [id number] [place] [address] May, ADHD (attention deficit hyperactivity di sorder), combined type F90.2 ; Major depressive disorder, single episode, mild F32.0 and Anxiety disorder, unspecified type F41.9 [place] [address] [address] May, Anxiety disorder, unspecified type F41.9 [place] [address] [address] Apr, [place] [address] [address] Apr, Anxiety disorder, unspecified type F41.9 [place] [address] [address] Apr, Anxiety disorder, unspecified type F41.9 ; Major depressive disorder, single episode, mild F32.0 and ADHD (attention deficit hyperactivity disorder), combined type F90.2 [place] [address] [address] Apr, [place] [address] [address] Apr, ADHD (attention deficit hyperactivity di sorder), combined type F90.2 ; Anxiety state F41.1 ; Depressive disorder, not elsewhere classified F32.9 ; Major depressive disorder, single episode, mild F32.0 and Anxiety disorder, unspecified type F41.9 [place] [address] [address] Mar, ADHD (attention deficit hyperactivity di sorder), combined type F90.2 [place] [address] [address] Mar, Nausea R11.0 [place] [address] [address] 13 Mar, 2017 Screening for STD sexually transmitted d isease Z11.3 ; Vaginal candidiasis B37.3 and Irritable bowel syndrome with diarrhea K58.0 [place] [address] [address] 04 Mar, 2017 [facility] [address] [address] Feb, ADHD (attention deficit hyperactivity di sorder), combined type F90.2 [facility] [address] [address] Feb, Depressive disorder, not elsewhere class ified F32.9 ; Anxiety state F41.1 and ADHD (attention deficit hyperactivity disorder), combined type F90.2 [place] [address] [address] Feb, Depressive disorder, not elsewhere class ified F32.9 ; Anxiety state F41.1 and ADHD (attention deficit hyperactivity disorder), combined type F90.2 [place] [address] [address] Feb, ADHD (attention deficit hyperactivity di sorder), combined type F90.2 [facility] [address] [facility] [id number] [address] [place] [address] Jan, Other viral agents as the ca use of diseases classified elsewhere B97.89 and Acute upper respiratory infection, unspecified J06.9 [place] [address] [address] Jan, ADHD (attention deficit hyperactivity di sorder), combined type F90.2 ; Major depressive disorder, single episode, mild F32.0 and Anxiety disorder, unspecified type F41.9 [place] [address] [address] Jan, [place] [address] [address] Jan, ADHD (attention deficit hyperactivity di sorder), combined type F90.2 ; Major depressive disorder, single episode, mild F32.0 and Anxiety disorder, unspecified type F41.9 [place] [address] [address] Dec, Irritable bowel syndrome with diarrhea K 58.0 and Lower abdominal pain R10.[address] [address] Dec, Hospital discharge follow-up Z09 ; Mesen teric adenitis I88.0 ; IBD (inflammatory bowel disease) K52.9 and Nausea R11.0 [place] [address] [address] Nov, ADHD (attention deficit hyperactivity di sorder), combined type F90.2 ; Major depressive disorder, single episode, mild F32.0 and Anxiety disorder, unspecified type F41.9 [place] [address] [address] Nov, Anxiety state F41.1 ; ADHD (attention de ficit hyperactivity disorder), combined type F90.2 ; Major depressive disorder, single episode, mild F32.0 and Anxiety disorder, unspecified type F41.9 [place] [address] [address] Oct, Anxiety state F41.1 ; ADHD (attention de ficit hyperactivity disorder), combined type F90.2 ; Major depressive disorder, single episode, mild F32.0 and Anxiety disorder, unspecified type F41.9 [place] [address] [address] Oct, ADHD (attention deficit hyperactivity di sorder), combined type F90.2 ; Major depressive disorder, single episode, mild F32.0 and Anxiety disorder, unspecified type F41.9 [place] [address] [address] Oct, Major depressive disorder, single episod e, mild F32.0 ; Anxiety state F41.1 ; ADHD (attention deficit hyperactivity disorder), combined type F90.2 and Depressive disorder, not elsewhere classified F32.9 [facility] [address] [facility] [id number] [address] [place] [address] 16 Oct, 2016 [facility] [address] [place], [place] [id number] [address] [place] [address] Oct, Cellulitis L03.90 and Planta r wart of right foot B07.0 [place] [address] [address] Aug, ADHD (attention deficit hyperactivity di sorder), combined type F90.2 ; Major depressive disorder, single episode, mild F32.0 and Anxiety disorder, unspecified type F41.9 [place] [address] [address] Aug, [place] [address] [address] Jul, ADHD (attention deficit hyperactivity di sorder), combined type F90.2 [place] [address] [address] Jul, Mesenteric adenitis I88.0 [place] [address] [address] June, [facility] [address] [place] [id number] [place] [address] June, Lower abdominal pain R10.30 [place] [address] [address] June, [place] [address] [address] June, ADHD (attention deficit hyperactivity di sorder), combined type F90.2 and Major depressive disorder, single episode, mild F32.0 [facility] [address] [address] May, [facility] [address] [address] May, ADHD (attention deficit hyperactivity di sorder), combined type F90.2 and Major depressive disorder, single episode, mild F32.0 [facility] [address] [facility] [id number] [place] [address] Apr, Abdominal pain R10.9 and Gas troenteritis and colitis, viral A08.4 [place] [address] [address] Apr, [facility] [address] [place] [address] Mar, Acute urticaria L50.8 [place] [address] [address] Mar, [place] [address] [address] Feb, [facility] [address] [place] [id number] [place] [address] Feb, Gastroenteritis K52.9 [place] [address] [address] Feb, Irritant contact dermatitis due to awais tics L24.3 [place] [address] [address] Jan, [place] [address] [address] Jan, [place] [address] [address] Jan, ADHD (attention deficit hyperactivity di sorder), combined type F90.2 and Major depressive disorder, single episode, mild F32.0 [facility] [address] [place] [address] Dec, Flexural eczema L20.82 [place] [address] [address] Dec, Encounter for test Z32.[address] [address] Dec, [place] [address] [address] Dec, [place] [address] [address] Dec, [facility] [address] [facility] [id number] [address] [place] [address] Nov, Sore throat J02.9 and Pharyn gitis, unspecified etiology J02.9 [facility] [address] [id number] [place] [address] Nov, [facility] [address] [place] [address] [id number] [place] [address] Nov, [facility] [address] [address] Nov, Generalized abdominal pain R10.84 and Sl ow transit constipation K59.01 [facility] [address] [facility] [id number] Nov, Pharyngitis, unspecified etiology J02.9 and Rhinitis, unspecified type J31.0 [facility] [address] [address] Oct, Depressive disorder, not elsewhere class ified F32.9 and ADHD (attention deficit hyperactivity disorder), combined type F90.2 [facility] [address] [address] Oct, [facility] [address] [address] Oct, [facility] [address] [facility] [id number] [address] [place] [address] Oct, Strep throat J02.0 [facility] [address] [place] [id number] [place] [address] Oct, [place] [address] [address] Oct, Well woman exam with routine gynecologic al exam Z01.419 and Screening for STD sexually transmitted disease Z11.3 [facility] [address] [address] Sep, ADHD (attention deficit hyperactivity di sorder), combined type F90.2 ; Anxiety state F41.1 and Depressive disorder, not elsewhere classified F32.9 [facility] [address] [place] [id number] [place] [address] Sep, ADHD (attention deficit hyperactivity di sorder), combined type F90.2 and Depressive disorder, not elsewhere classified F32.9 [facility] [address] [place] [id number] [place] [address] Aug, [facility] [address] [address] Aug, ADHD (attention deficit hyperactivity di sorder), combined type F90.2 and Depressive disorder, not elsewhere classified F32.9 [facility] [address] [address] Aug, ADHD (attention deficit hyperactivity di sorder), combined type F90.2 ; Anxiety state F41.1 and Depressive disorder, not elsewhere classified F32.9 [facility] [address] [address] Aug, [facility] [address] [address] Aug, [facility] [address] [address] Jul, ADHD (attention deficit hyperactivity di sorder), combined type F90.2 ; Depressive disorder, not elsewhere classified F32.9 and Anxiety state F41.1 [facility] [address] [address] Jul, [facility] [address] [address] Jul, ADHD (attention deficit hyperactivity di sorder), combined type F90.2 ; Anxiety state F41.1 and Depressive disorder, not elsewhere classified F32.9 [facility] [address] [place] [id number] [place] [address] June, [facility] [address] [facility] [id number] June, Constipation K59.00 [facility] [address] [id number] [place] [address] May, Constipation K59.00 [facility] [address] [facility] [id number] [address] [place] [address] May, Irritable bowel syndrome wit h diarrhea K58.0 [facility] [address] [place] [id number] [place] [address] 15 May, 2015 [facility] [address] [place] [id number] [place] [address] 15 May, 2015 [facility] [address] [address] 14 May, 2014 [facility] [address] [place] [id number] [place] [address] May, [facility] [address] [place] [id number] [place] [address] Jan, [facility] [address] [place] [id number] [place] [address] Jan, [facility] [address] [id number] [place] [address] Jan, [facility] [address] [place] [id number] [place] [address] Jan, [facility] [address] [id number] [place] [address] Jan, [facility] [address] [place] [id number] [place] [address] Jan, [facility] [address] [place] [id number] [place] [address] Nov, [facility] [id number] [place] [address] Nov, [facility] [address] [id number] [place] [address] 18 Oct, 2013 [facility] [address] [address] Oct, [facility] [address] [facility] [id number] [facility] [place] [address] Sep, [facility] [address] [facility] [id number] [place] [address] Sep, [facility] [address] [id number] [place] [address] Aug, [facility] [address] [facility] [id number] [place] [address] Aug, [facility] [address] [facility] [id number] [place] [address] Aug, [facility] [address] [id number] [place] [address] Aug, [facility] [address] [id number] [place] [address] Aug, [facility] [address] [id number] [place] [address] Aug, [facility] [address] [id number] [place] [address] Aug, [facility] [address] [id number] [place] [address] Aug, [facility] [address] [id number] [place] [address] Jul, [facility] [address] [id number] [place] [address] Jul, [facility] [address] [facility] [id number] [place] [address] Jul, [facility] [address] [id number] [place] [address] Jul, [facility] [address] [id number] [place] [address] Jul, [facility] [address] [id number] [place] [address] Jul, [facility] [address] [id number] [place] [address] Jul, [facility] [address] [id number] [place] [address] Jul, [facility] [address] [id number] [place] [address] Jul, [facility] [address] [id number] [place] [address] June, [facility] [address] [id number] [place] [address] June, [facility] [address] [id number] [place] [address] May, [facility] [address] [id number] [place] [address] May, [facility] [address] [id number] [place] [address] May, [facility] [address] [id number] [place] [address] May, [facility] [address] [id number] [place] [address] May, [facility] [address] [id number] [place] [address] May, [facility] [address] [id number] [place] [address] May, [facility] [address] [id number] [place] [address] May, [facility] [address] [id number] [place] [address] May, [facility] [address] [id number] [place] [address] May, [facility] [address] [id number] [place] [address] May, [facility] [address] [id number] [place] [address] May, [facility] [address] [facility] [id number] [place] [address] Apr, [facility] [address] [facility] [id number] [facility] [place] [address] Apr, [facility] [address] [id number] [place] [address] Apr, [facility] [address] [id number] [place] [address] Apr, [facility] [address] [facility] [id number] [place] [address] Mar, [facility] [address] [id number] [place] [address] Mar, [facility] [address] [id number] [place] [address] Mar, [facility] [address] [id number] [place] [address] Mar, [facility] [address] [id number] [place] [address] Mar, [facility] [address] [id number] [place] [address] Mar, [facility] [address] [id number] [place] [address] Mar, [facility] [address] [id number] [place] [address] Mar, [facility] [address] [id number] [place] [address] Mar, [facility] [address] [id number] [place] [address] Mar, [facility] [address] [id number] [place] [address] 14 Mar, 2013 [facility] [address] [id number] [place] [address] 14 Mar, 2013 [facility] [address] [id number] [place] [address] Mar, [facility] [address] [id number] [place] [address] Mar, [facility] [address] [id number] [place] [address] Mar, [facility] [address] [id number] [place] [address] Mar, [facility] [address] [id number] [place] [address] Mar, [facility] [address] [id number] [place] [address] Mar, [facility] [address] [id number] [place] [address] Mar, [facility] [address] [id number] [place] [address] Mar, [facility] [address] [id number] [place] [address] Feb, [facility] [address] [id number] [place] [address] Feb, [facility] [address] [id number] [place] [address] Feb, [facility] [address] [id number] [place] [address] Feb, [facility] [address] [id number] [place] [address] Feb, [facility] [address] [id number] [place] [address] Feb, [facility] [address] [id number] [place] [address] Feb, [facility] [address] [id number] [place] [address] Feb, [facility] [address] [id number] [place] [address] Feb, [facility] [address] [facility] [id number] [place] [address] Feb, [facility] [address] [facility] [id number] [place] [address] Feb, [facility] [address] [id number] [place] [address] Feb, [facility] [address] [id number] [place] [address] Feb, [facility] [address] [id number] [place] [address] Feb, [facility] [address] [id number] [place] [address] Feb, [facility] [address] [id number] [place] [address] Feb, [facility] [address] [id number] [place] [address] Feb, [facility] [address] [id number] [place] [address] Feb, [facility] [address] [id number] [place] [address] Feb, [facility] [address] [id number] [place] [address] Feb, [facility] [address] [id number] [place] [address] Feb, [facility] [address] [facility] [id number] [place] [address] Feb, [facility] [address] [id number] [place] [address] Feb, [facility] [address] [id number] [place] [address] Jan, [facility] [address] [id number] [place] [address] Jan, [facility] [address] [id number] [place] [address] 19 Jan, 2012 [facility] [address] [id number] [place] [address] 18 Jan, 2013 [facility] [address] [id number] [place] [address] 18 Jan, 2013 [facility] [address] [id number] [place] [address] 18 Jan, 2013 [facility] [address] [id number] [place] [address] 18 Jan, 2013 [facility] [address] [id number] [place] [address] 17 Jan, 2013 [facility] [address] [id number] [place] [address] 17 Jan, 2013 [facility] [address] [id number] [place] [address] 2013 [facility] [address] [id number] [place] [address] 2013 [facility] [address] [id number] [place] [address] 04 Jan, 2013 [facility] [address] [id number] [place] [address] 04 Jan, 2013 [facility] [address] [id number] [place] [address] 20 Dec, 2012 [facility] [address] [id number] [place] [address] 20 Dec, 2012 [facility] [address] [id number] [place] [address] 20 Dec, 2012 [facility] [id number] [place] [address] 20 Dec, 2012 [facility] [address] [id number] [place] [address] 15 Dec, 2012 [facility] [id number] [place] [address] Dec, [facility] [id number] [place] [address] Nov, [facility] [id number] [place] [address] Nov, [facility] [id number] [place] [address] Nov, [facility] [address] [address] Nov, [facility] [id number] [place] [address] Nov, [facility] [address] [address] Nov, [facility] [address] [address] Oct, [facility] [address] [address] Oct, [facility] [address] [address] Oct, [facility] [address] [address] Oct, [facility] [address] [address] Oct, [facility] [address] [address] 18 Oct, 2012 [facility] [address] [address] Oct, IMMUNIZATIONS No Known Immunizations SOCIAL HISTORY [...]
--- OUTSIDE RECORDS SUMMARY | 2019-06-25 21:26 | XMS REPORT ---
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 Name Role Phone JOSE ALEJANDRO Cope Unavailable PROBLEMS Type Condition ICD9-CM Code XNC16-FL Code Onset Dates Condition S tatus SNOMED Code Problem ADHD (attention deficit hyperactivity disorder), combi amparo type F90.2 Active 02383623 Problem Unspecified mood [affective] disorder F39 Active 09861633 Problem Intrinsic atopic dermatitis L20.84 Ac tive 08579346 Problem Slow transit constipation K59.01 Acti ve 36397502 Problem Anxiety disorder, unspecified type F41.9 Active 270729878 Problem Major depressive disorder, single episode, mild F3 2.0 Active 95095437 Problem Irritable bowel syndrome with diarrhea K58.0 Active 452908993 ALLERGIES No Information ENCOUNTERS Encounter Location Date Diagnosis [place] [address] [address] Mar, [facility] [address] [address] Feb, [address] [address] Feb, Second trimester Z33.1 [facility] [address] [place] [address] 13 Feb, 2019 Second trimester Z34.92 ; 21 w eeks gestation of Z3A.21 and Exposure to STD Z20.2 [facility] [address] [place] [address] 07 Feb, 2019 Second trimester Z33.1 [facility] [address] [facility] [id number] [place] [address] 05 Feb, 2019 Non-intractable vomiting wit h nausea, unspecified vomiting type R11.2 [place] [address] [address] Jan, [place] [address] [address] Jan, [place] [address] [address] Jan, First trimester Z34.91 [place] [address] [address] 16 Jan, 2019 Second trimester Z34.92 and In trinsic atopic dermatitis L20.[address] [address] Dec, First trimester Z34.91 [place] [address] [address] Dec, Second trimester Z34.92 and Fa kim history of neural tube defect Z82.0 [place] [address] [address] 18 Dec, [address] [address] Dec, Second trimester Z34.92 ; Fami ly history of neural tube defect Z82.0 ; History of asthma Z87.09 and Wheezing R06.2 [place] [address] [address] Dec, [facility] [address] [facility] [address] Dec, [address] [address] Nov, care, subsequent in f irst trimester Z34.[address] [address] Nov, First trimester Z34.91 ; 10 we eks gestation of Z3A.10 and Nausea and vomiting during O21.9 [facility] [address] [place] [id number] [place] [address] 14 Nov, 2018 care, subsequent in f irst trimester Z34.81 [facility] [address] [facility] [id number] [address] [place] [address] 05 Nov, 2018 Vomiting O21.9 [facility] [address] [address] 26 Oct, 2018 care, subsequent in f irst trimester Z34.81 and 6 weeks gestation of Z3A.01 [place] [address] [address] 20 Oct, 2018 [facility] [place] [address] [facility] [id number] [address] [place] [address] 06 Oct, 2018 Heat rash L74.0 [place] [address] [address] Aug, UTI symptoms R39.9 [place] [address] [address] Aug, [place] [address] [address] Aug, UTI symptoms R39.9 [place] [address] [address] Aug, Hematuria, unspecified type R31.9 [facility] [address] [facility] [id number] [address] [place] [address] Jul, Sore throat J02.9 ; UTI symp toms R39.9 and Hematuria, unspecified type R31.9 [place] [address] [address] June, Irritable bowel syndrome with diarrhea K 58.0 and Major depressive disorder, single episode, mild F32.0 [place] [address] [address] June, ADHD (attention deficit hyperactivity di sorder), combined type F90.2 ; Anxiety disorder, unspecified type F41.9 and Unspecified mood [affective] disorder F39 [facility] [address] [address] May, ADHD (attention deficit hyperactivity di sorder), combined type F90.2 ; Anxiety disorder, unspecified type F41.9 ; Unspecified mood [affective] disorder F39 and 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 [facility] [address] [address] May, Slow transit constipation K59.01 [facility] [address] [address] May, ADHD (attention deficit hyperactivity di sorder), combined type F90.2 [facility] [address] [address] May, [facility] [address] [address] May, Abdominal pain R10.9 [facility] [address] [address] Apr, [facility] [address] [address] Apr, [facility] [address] [address] Apr, ADHD (attention deficit hyperactivity di sorder), combined type F90.2 [facility] [address] [address] Apr, Abdominal pain R10.9 [facility] [address] [address] Apr, [facility] [address] [address] Mar, [facility] [address] [address] Mar, ADHD (attention deficit hyperactivity di sorder), combined type F90.2 ; Anxiety disorder, unspecified type F41.9 and Unspecified mood [affective] disorder F39 [place] [address] [address] Mar, Viral gastroenteritis A08.4 and Slow tra nsit constipation K59.01 [facility] [address] [place] [id number] [place] [address] Mar, Viral gastroenteritis A08.4 [place] [address] [address] Mar, ADHD (attention deficit hyperactivity di sorder), combined type F90.2 [place] [address] [address] Feb, Slow transit constipation K59.01 ; Misse d period N92.6 and Nausea R11.0 [place] [address] [address] Feb, ADHD (attention deficit hyperactivity di sorder), combined type F90.2 [facility] [address] [place] [id number] [place] [address] Jan, Nausea R11.0 and Viral upper respiratory tract infection J06.9 [place] [address] [address] Jan, [place] [address] [address] Jan, ADHD (attention deficit hyperactivity di sorder), combined type F90.2 ; Anxiety disorder, unspecified type F41.9 and Unspecified mood [affective] disorder F39 [place] [address] [address] Jan, Well woman exam with routine gynecologic al exam Z01.419 ; Routine screening for STI (sexually transmitted infection) Z11.3 and Vaginal jose B37.3 [place] [address] [address] Dec, [facility] [address] [place] [id number] [place] [address] Dec, [place] [address] [address] Dec, ADHD (attention deficit hyperactivity di sorder), combined type F90.2 ; Anxiety disorder, unspecified type F41.9 and Unspecified mood [affective] disorder F39 [place] [address] [address] Dec, Unspecified mood [affective] disorder F3 9 ; Anxiety disorder, unspecified type F41.9 and ADHD (attention deficit hyperactivity disorder), combined type F90.2 [facility] [address] [place] [id number] [place] [address] Nov, Other specified bacterial ag ents as the cause of diseases classified elsewhere B96.89 and Otitis media, unspecified, bilateral H66.93 [facility] [address] [place] [id number] [address] [place] [address] Nov, Sore throat J02.9 and Acute nasopharyngitis J00 [place] [address] [address] Nov, ADHD (attention deficit hyperactivity di sorder), combined type F90.2 ; Anxiety disorder, unspecified type F41.9 and Unspecified mood [affective] disorder F39 [place] [address] [address] Oct, ADHD (attention deficit hyperactivity di sorder), combined type F90.2 [place] [address] [address] Oct, ADHD (attention deficit hyperactivity di sorder), combined type F90.2 ; Anxiety disorder, unspecified type F41.9 and Unspecified mood [affective] disorder F39 [facility] [address] [address] Sep, ADHD (attention deficit hyperactivity di sorder), combined type F90.2 [facility] [address] [place] [id number] [place] [address] Sep, [facility] [address] [place] [id number] [place] [address] Aug, ADHD (attention deficit hyperactivity di sorder), combined type F90.2 ; Major depressive disorder, single episode, mild F32.0 and Anxiety disorder, unspecified type F41.9 [facility] [address] [facility] [id number] [place] [address] Aug, Sore throat J02.9 ; Other sp ecified bacterial agents as the cause of diseases classified elsewhere B96.89 and Acute tonsillitis due to other specified organisms J03.80 [facility] [address] [place] [id number] [place] [address] Aug, ADHD (attention deficit hyperactivity di sorder), combined type F90.2 [place] [address] [place] [id number] [place] [address] Jul, ADHD (attention deficit hyperactivity di sorder), combined type F90.2 [facility] [address] [place] [id number] [place] [address] June, ADHD (attention deficit hyperactivity di sorder), combined type F90.2 ; Major depressive disorder, single episode, mild F32.0 and Anxiety disorder, unspecified type F41.9 [place] [address] [place] [id number] [place] [address] June, [place] [address] [address] June, ADHD (attention deficit hyperactivity di sorder), combined type F90.2 [place] [address] [address] May, [place] [address] [address] May, ADHD (attention deficit hyperactivity di sorder), combined type F90.2 ; Major depressive disorder, single episode, mild F32.0 and Anxiety disorder, unspecified type F41.9 [place] [address] [address] May, Anxiety disorder, unspecified type F41.9 [place] [address] [address] Apr, [facility] [address] [address] Apr, Anxiety disorder, unspecified type F41.9 [place] [address] [address] Apr, Anxiety disorder, unspecified type F41.9 ; Major depressive disorder, single episode, mild F32.0 and ADHD (attention deficit hyperactivity disorder), combined type F90.2 [place] [address] [address] Apr, [place] [address] [address] Apr, ADHD (attention deficit hyperactivity di sorder), combined type F90.2 ; Anxiety state F41.1 ; Depressive disorder, not elsewhere classified F32.9 ; Major depressive disorder, single episode, mild F32.0 and Anxiety disorder, unspecified type F41.9 [place] [address] [address] Mar, ADHD (attention deficit hyperactivity di sorder), combined type F90.2 [place] [address] [address] Mar, Nausea R11.0 [place] [address] [address] 13 Mar, 2017 Screening for STD sexually transmitted d isease Z11.3 ; Vaginal candidiasis B37.3 and Irritable bowel syndrome with diarrhea K58.0 [place] [address] [address] 04 Mar, 2017 [place] [address] [address] Feb, ADHD (attention deficit hyperactivity di sorder), combined type F90.2 [facility] [address] [address] Feb, Depressive disorder, not elsewhere class ified F32.9 ; Anxiety state F41.1 and ADHD (attention deficit hyperactivity disorder), combined type F90.2 [place] [address] [address] Feb, Depressive disorder, not elsewhere class ified F32.9 ; Anxiety state F41.1 and ADHD (attention deficit hyperactivity disorder), combined type F90.2 [place] [address] [address] Feb, ADHD (attention deficit hyperactivity di sorder), combined type F90.2 [facility] [address] [facility] [id number] [address] [address] Jan, Other viral agents as the ca use of diseases classified elsewhere B97.89 and Acute upper respiratory infection, unspecified J06.9 [place] [address] [address] Jan, ADHD (attention deficit hyperactivity di sorder), combined type F90.2 ; Major depressive disorder, single episode, mild F32.0 and Anxiety disorder, unspecified type F41.9 [place] [address] [address] Jan, [place] [address] [address] Jan, ADHD (attention deficit hyperactivity di sorder), combined type F90.2 ; Major depressive disorder, single episode, mild F32.0 and Anxiety disorder, unspecified type F41.9 [place] [address] [address] Dec, Irritable bowel syndrome with diarrhea K 58.0 and Lower abdominal pain R10.30 [place] [address] [address] Dec, Hospital discharge follow-up Z09 ; Mesen teric adenitis I88.0 ; IBD (inflammatory bowel disease) K52.9 and Nausea R11.0 [place] [address] [address] Nov, ADHD (attention deficit hyperactivity di sorder), combined type F90.2 ; Major depressive disorder, single episode, mild F32.0 and Anxiety disorder, unspecified type F41.9 [place] [address] [address] Nov, Anxiety state F41.1 ; ADHD (attention de ficit hyperactivity disorder), combined type F90.2 ; Major depressive disorder, single episode, mild F32.0 and Anxiety disorder, unspecified type F41.9 [place] [address] [address] Oct, Anxiety state F41.1 ; ADHD (attention de ficit hyperactivity disorder), combined type F90.2 ; Major depressive disorder, single episode, mild F32.0 and Anxiety disorder, unspecified type F41.9 [place] [address] [address] Oct, ADHD (attention deficit hyperactivity di sorder), combined type F90.2 ; Major depressive disorder, single episode, mild F32.0 and Anxiety disorder, unspecified type F41.9 [place] [address] [address] Oct, Major depressive disorder, single episod e, mild F32.0 ; Anxiety state F41.1 ; ADHD (attention deficit hyperactivity disorder), combined type F90.2 and Depressive disorder, not elsewhere classified F32.9 [facility] [address] [place] [id number] [place] [address] 16 Oct, 2016 [facility] [address] [place] [id number] [address] [place] [address] Oct, Cellulitis L03.90 and Planta r wart of right foot B07.0 [facility] [address] [address] Aug, ADHD (attention deficit hyperactivity di sorder), combined type F90.2 ; Major depressive disorder, single episode, mild F32.0 and Anxiety disorder, unspecified type F41.9 [facility] [address] [address] Aug, [place] [address] [address] Jul, ADHD (attention deficit hyperactivity di sorder), combined type F90.2 [place] [address] [address] Jul, Mesenteric adenitis I88.0 [place] [address] [address] June, [facility] [address] [place] [id number] [place] [address] June, Lower abdominal pain R10.30 [place] [address] [address] June, [place] [address] [address] June, ADHD (attention deficit hyperactivity di sorder), combined type F90.2 and Major depressive disorder, single episode, mild F32.0 [place] [address] [address] May, [place] [address] [address] May, ADHD (attention deficit hyperactivity di sorder), combined type F90.2 and Major depressive disorder, single episode, mild F32.0 [facility] [address] [place] [id number] [place] [address] Apr, Abdominal pain R10.9 and Gas troenteritis and colitis, viral A08.4 [place] [address] [address] Apr, [facility] [address] [address] Mar, Acute urticaria L50.8 [facility] [address] [address] Mar, [facility] [address] [address] Feb, [facility] [address] [address] Feb, Gastroenteritis K52.9 [place] [address] [address] Feb, Irritant contact dermatitis due to awais tics L24.3 [place] [address] [address] Jan, [place] [address] [address] Jan, [place] [address] [address] Jan, ADHD (attention deficit hyperactivity di sorder), combined type F90.2 and Major depressive disorder, single episode, mild F32.0 [facility] [address] [address] Dec, Flexural eczema L20.82 [place] [address] [address] Dec, Encounter for test Z32.00 [place] [address] [address] Dec, [place] [address] [address] Dec, [place] [address] [address] Dec, [facility] [address] [place] [address] Nov, Sore throat J02.9 and Pharyn gitis, unspecified etiology J02.9 [facility] [address] [address] Nov, [facility] [address] [place] [id number] [place] [address] Nov, [facility] [address] [address] Nov, Generalized abdominal pain R10.84 and Sl ow transit constipation K59.01 [facility] [address] [id number] [place] [id number] Nov, Pharyngitis, unspecified etiology J02.9 and Rhinitis, unspecified type J31.0 [facility] [address] [address] Oct, Depressive disorder, not elsewhere class ified F32.9 and ADHD (attention deficit hyperactivity disorder), combined type F90.2 [facility] [address] [address] Oct, [facility] [address] [address] Oct, [facility] [address] [facility] [id number] [address] [place] [address] Oct, Strep throat J02.0 [facility] [address] [address] 16 Oct, 2015 [facility] [address] [address] 09 Oct, 2015 Well woman exam with routine gynecologic al exam Z01.419 and Screening for STD sexually transmitted disease Z11.3 [facility] [address] [address] Sep, ADHD (attention deficit hyperactivity di sorder), combined type F90.2 ; Anxiety state F41.1 and Depressive disorder, not elsewhere classified F32.9 [facility] [address] [place] [id number] [place] [address] Sep, ADHD (attention deficit hyperactivity di sorder), combined type F90.2 and Depressive disorder, not elsewhere classified F32.9 [facility] [address] [place] [id number] [place] [address] Aug, [facility] [address] [address] Aug, ADHD (attention deficit hyperactivity di sorder), combined type F90.2 and Depressive disorder, not elsewhere classified F32.9 [facility] [address] [place] [id number] [place] [address] Aug, ADHD (attention deficit hyperactivity di sorder), combined type F90.2 ; Anxiety state F41.1 and Depressive disorder, not elsewhere classified F32.9 [facility] [address] [address] Aug, [facility] [address] [place] [id number] [place] [address] Aug, [facility] [address] [place] [id number] [place] [address] Jul, ADHD (attention deficit hyperactivity di sorder), combined type F90.2 ; Depressive disorder, not elsewhere classified F32.9 and Anxiety state F41.1 [facility] [address] [place] [id number] [place] [address] Jul, [facility] [address] [place] [id number] [place] [address] Jul, ADHD (attention deficit hyperactivity di sorder), combined type F90.2 ; Anxiety state F41.1 and Depressive disorder, not elsewhere classified F32.9 [facility] [address] [id number] [place] [address] June, [facility] [address] [id number] [place] [id number] June, Constipation K59.00 [place] [address] [place] [id number] [place] [address] 28 May, 2015 Constipation K59.00 [facility] [address] [facility] [id number] [address] [place] [address] 20 May, 2016 Irritable bowel syndrome wit h diarrhea K58.0 [facility] [address] [place] [id number] [place] [address] 15 May, 2015 [facility] [address] [place] [id number] [place] [address] 15 May, 2015 [facility] [address] [place] [id number] [place] [address] 14 May, 2014 [facility] [address] [place] [id number] [place] [address] 13 May, 2014 [facility] [address] [place] [id number] [place] [address] Jan, [facility] [address] [place] [id number] [place] [address] Jan, [facility] [address] [place] [id number] [place] [address] 08 Jan, 2014 [facility] [address] [place] [id number] [place] [address] Jan, [facility] [address] [place] [id number] [place] [address] 05 Jan, 2014 [facility] [address] [place] [id number] [place] [address] 05 Jan, 2014 [facility] [address] [place] [id number] [place] [address] Nov, [facility] [address] [place] [id number] [place] [address] Nov, [facility] [address] [place] [id number] [place] [address] 18 Oct, 2013 [facility] [address] [place] [id number] [place] [address] 18 Oct, 2013 [facility] [address] [facility] [id number] [facility] [place] [address] Sep, [facility] [address] [facility] [id number] [place] [address] Sep, [facility] [address] [facility] [id number] [place] [address] Aug, [facility] [address] [id number] [place] [address] Aug, [facility] [address] [facility] [id number] [place] [address] Aug, [facility] [address] [facility] [id number] [place] [address] Aug, [facility] [address] [id number] [place] [address] Aug, [facility] [address] [id number] [place] [address] Aug, [facility] [address] [id number] [place] [address] Aug, [facility] [address] [id number] [place] [address] Aug, [facility] [address] [id number] [place] [address] Jul, [facility] [address] [id number] [place] [address] Jul, [facility] [address] [id number] [place] [address] Jul, [facility] [address] [facility] [id number] [place] [address] Jul, [facility] [address] [id number] [place] [address] Jul, [facility] [address] [id number] [place] [address] Jul, [facility] [address] [id number] [place] [address] Jul, [facility] [address] [id number] [place] [id number] Jul, [facility] [address] [id number] [place] [address] Jul, [facility] [address] [id number] [place] [address] June, [facility] [address] [id number] [place] [address] June, [facility] [address] [facility] [id number] [place] [address] May, [facility] [address] [id number] [place] [address] May, [facility] [address] [id number] [place] [address] May, [facility] [address] [id number] [place] [address] May, [facility] [address] [id number] [place] [address] May, [facility] [address] [id number] [place] [address] May, [facility] [address] [id number] [place] [address] May, [facility] [address] [id number] [place] [address] May, [facility] [address] [id number] [place] [address] May, [facility] [address] [id number] [place] [address] May, [facility] [address] [id number] [place] [address] May, [facility] [address] [id number] [place] [address] May, [facility] [address] [id number] [place] [address] Apr, [facility] [address] [facility] [id number] [place] [address] Apr, [facility] [address] [facility] [id number] [place] [address] Apr, [facility] [address] [id number] [place] [address] Apr, [facility] [address] [id number] [place] [address] Mar, [facility] [address] [id number] [place] [address] Mar, [facility] [address] [id number] [place] [address] Mar, [facility] [address] [id number] [place] [address] Mar, [facility] [address] [id number] [place] [address] Mar, [facility] [address] [id number] [place] [address] Mar, [facility] [address] [id number] [place] [address] Mar, [facility] [address] [id number] [place] [address] Mar, [facility] [address] [id number] [place] [address] Mar, [facility] [address] [id number] [place] [address] 19 Mar, 2013 [facility] [address] [id number] [place] [address] 14 Mar, 2013 [facility] [address] [id number] [place] [address] 14 Mar, 2013 [facility] [address] [id number] [place] [address] Mar, [facility] [address] [facility] [id number] [facility] [place] [address] Mar, [facility] [address] [facility] [id number] [facility] [place] [address] Mar, [facility] [address] [facility] [id number] [facility] [place] [address] Mar, [facility] [address] [facility] [id number] [facility] [place] [address] Mar, [facility] [address] [facility] [id number] [facility] [place] [address] Mar, [facility] [address] [id number] [facility] [place] [address] Mar, [facility] [address] [id number] [facility] [place] [address] Mar, [facility] [address] [id number] [facility] [place] [address] Feb, [facility] [address] [id number] [facility] [place] [address] Feb, [facility] [address] [id number] [place] [address] Feb, [facility] [address] [id number] [place] [address] Feb, [facility] [address] [id number] [facility] [place] [address] Feb, [facility] [address] [facility] [id number] [facility] [place] [address] Feb, [facility] [address] [id number] [place] [address] Feb, [facility] [address] [id number] [place] [address] Feb, [facility] [address] [id number] [place] [address] Feb, [facility] [address] [id number] [place] [address] 24 Feb, 2013 [facility] [address] [id number] [place] [address] Feb, [facility] [address] [id number] [place] [address] Feb, [facility] [address] [id number] [place] [address] 17 Feb, 2013 [facility] [address] [id number] [place] [address] Feb, [facility] [address] [id number] [place] [address] 16 Feb, 2013 [facility] [address] [id number] [place] [address] Feb, [facility] [address] [id number] [place] [address] Feb, [facility] [address] [id number] [place] [address] Feb, [facility] [address] [id number] [place] [address] Feb, [facility] [address] [id number] [place] [address] Feb, [facility] [address] [id number] [place] [address] Feb, [facility] [address] [id number] [place] [address] Feb, [facility] [address] [id number] [place] [address] Feb, [facility] [address] [id number] [place] [address] Jan, [facility] [address] [id number] [place] [address] Jan, [facility] [address] [id number] [place] [address] Jan, [facility] [address] [id number] [place] [address] 18 Jan, 2012 [facility] [address] [id number] [place] [address] 18 Jan, 2013 [facility] [address] [id number] [place] [address] 18 Jan, 2013 [facility] [address] [id number] [place] [address] 18 Jan, 2013 [facility] [address] [id number] [place] [address] 17 Jan, 2013 [facility] [address] [id number] [place] [address] 17 Jan, 2013 [facility] [address] [id number] [place] [address] 2013 [facility] [address] [id number] [place] [address] 2013 [facility] [address] [id number] [place] [address] 04 Jan, 2013 [facility] [address] [id number] [place] [address] 04 Jan, 2013 [facility] [address] [id number] [place] [address] 20 Dec, 2012 [facility] [address] [id number] [place] [address] 20 Dec, 2012 [facility] [address] [id number] [place] [address] 20 Dec, 2012 [facility] [address] [id number] [place] [address] 20 Dec, 2012 [facility] [address] [id number] [place] [address] 15 Dec, 2012 [facility] [address] [id number] [place] [address] 15 Dec, 2012 [facility] [address] [id number] [place] [address] Nov[facility] [address] [id number] [place] [address] Nov, [facility] [address] [id number] [place] [address] Nov, [facility] [address] [id number] [place] [address] Nov, [facility] [id number] [place] [address] Nov, [facility] [address] [id number] [place] [address] Nov, [facility] [id number] [place] [address] Oct, [facility] [id number] [place] [address] Oct, [facility] [id number] [place] [address] 26 Oct, 2012 [facility] [id number] [place] [address] Oct, [facility] [id number] [place] [address] Oct, [facility] [id number] [place] [address] 18 Oct, 2012 [facility] [id number] [place] [address] 13 Oct, 2012 IMMUNIZATIONS No Known Immunizations [...]
--- OUTSIDE RECORDS SUMMARY | 2019-06-25 21:26 | XMS REPORT ---
Author Author Sheyla Xavier Doctor Organization [facility] Address Unknown Phone Unavailable Care Team Providers Care Paralegal Supervisor Name Role Phone Migration, Doctor Unavailable Unavailable PROBLEMS Type Condition ICD9-CM Code CNE56-CA Code Onset Dates Condition S tatus SNOMED Code Problem ADHD (attention deficit hyperactivity disorder), combi amparo type F90.2 Active 28116376 Problem Unspecified mood [affective] disorder F39 Active 97649743 Problem Intrinsic atopic dermatitis L20.84 Ac tive 11830883 Problem Slow transit constipation K59.01 Acti ve 68841055 Problem Anxiety disorder, unspecified type F41.9 Active 677804438 Problem Major depressive disorder, single episode, mild F3 2.0 Active 09575450 Problem Irritable bowel syndrome with diarrhea K58.0 Active 802701946 ALLERGIES No Information ENCOUNTERS Encounter Location Date Diagnosis [facility] [address] [address] 12 Mar, 2019 [facility] [address] [address] Feb, [facility] [address] [address] Feb, Second trimester Z33.1 [facility] [address] [address] 13 Feb, 2019 Second trimester Z34.92 ; 21 w eeks gestation of Z3A.21 and Exposure to STD Z20.2 [facility] [address] [address] 07 Feb, 2019 Second trimester Z33.1 [facility] [address] [address] [facility] [id number] [place] [address] 05 Feb, 2019 Non-intractable vomiting wit h nausea, unspecified vomiting type R11.2 [facility] [address] [address] Jan, [facility] [address] [address] Jan, [place] [address] [address] Jan, First trimester Z34.91 [place] [address] [address] 16 Jan, 2019 Second trimester Z34.92 and In trinsic atopic dermatitis L20.84 [place] [address] [address] 27 Dec, 2018 First trimester Z34.91 [place] [address] [address] 22 Dec, 2018 Second trimester Z34.92 and Fa kim history of neural tube defect Z82.[address] [address] 18 Dec, 2018 [place] [address] [address] 13 Dec, 2018 Second trimester Z34.92 ; Fami ly history of neural tube defect Z82.0 ; History of asthma Z87.09 and Wheezing R06.2 [place] [id number] [place] [address] 08 Dec, 2018 [facility] [address] [id number] [address] Dec, [place] [address] [address] Nov, care, subsequent in f irst trimester Z34.[address] [address] 24 Nov, 2018 First trimester Z34.91 ; 10 we eks gestation of Z3A.10 and Nausea and vomiting during O21.[address] [address] 14 Nov, 2018 care, subsequent in f irst trimester Z34.81 [facility] [address] [facility] [id number] [address] [place] [address] 05 Nov, 2018 Vomiting O21.9 [facility] [address] [id number] [place] [address] 26 Oct, 2018 care, subsequent in f irst trimester Z34.81 and 6 weeks gestation of Z3A.01 [place] [address] [address] 20 Oct, 2018 [facility] [address] [place] [id number] [address] [place] [address] 06 Oct, 2018 Heat rash L74.0 [place] [address] [address] Aug, UTI symptoms R39.9 [place] [address] [address] Aug, [place] [address] [address] Aug, UTI symptoms R39.9 [place] [address] [address] Aug, Hematuria, unspecified type R31.9 [facility] [address] [facility] [id number] [address] [place] [address] Jul, Sore throat J02.9 ; UTI symp toms R39.9 and Hematuria, unspecified type R31.9 [place] [address] [address] June, Irritable bowel syndrome with diarrhea K 58.0 and Major depressive disorder, single episode, mild F32.0 [place] [address] [address] June, ADHD (attention deficit hyperactivity di sorder), combined type F90.2 ; Anxiety disorder, unspecified type F41.9 and Unspecified mood [affective] disorder F39 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 [address] [address] May, Slow transit constipation K59.01 [facility] [address] [address] May, ADHD (attention deficit hyperactivity di sorder), combined type F90.2 [facility] [address] [address] May, [facility] [address] [address] May, Abdominal pain R10.9 [facility] [address] [address] Apr, [facility] [address] [address] Apr, [facility] [address] [address] Apr, ADHD (attention deficit hyperactivity di sorder), combined type F90.2 [facility] [address] [address] Apr, Abdominal pain R10.9 [facility] [address] [address] Apr, [facility] [address] [address] Mar, [facility] [address] [address] Mar, ADHD (attention deficit hyperactivity di sorder), combined type F90.2 ; Anxiety disorder, unspecified type F41.9 and Unspecified mood [affective] disorder F39 [facility] [address] [address] 27 Mar, 2018 Viral gastroenteritis A08.4 and Slow tra nsit constipation K59.01 [facility] [address] [place] [id number] [address] [address] 27 Mar, 2018 Viral gastroenteritis A08.4 [facility] [address] [address] 07 Mar, 2018 ADHD (attention deficit hyperactivity di sorder), combined type F90.2 [facility] [address] [address] Feb, Slow transit constipation K59.01 ; Misse d period N92.6 and Nausea R11.0 [place] [address] [address] Feb, ADHD (attention deficit hyperactivity di sorder), combined type F90.2 [facility] [address] [place] [address] Jan, Nausea R11.0 and Viral upper respiratory tract infection J06.9 [place] [address] [address] Jan, [place] [address] [address] Jan, ADHD (attention deficit hyperactivity di sorder), combined type F90.2 ; Anxiety disorder, unspecified type F41.9 and Unspecified mood [affective] disorder F39 [facility] [address] [address] Jan, Well woman exam with routine gynecologic al exam Z01.419 ; Routine screening for STI (sexually transmitted infection) Z11.3 and Vaginal jose B37.3 [place] [address] [address] Dec, [place] [address] [address] Dec, [facility] [address] [place] [id number] [place] [address] Dec, ADHD (attention deficit hyperactivity di sorder), combined type F90.2 ; Anxiety disorder, unspecified type F41.9 and Unspecified mood [affective] disorder F39 [facility] [address] [place] [id number] [place] [address] Dec, Unspecified mood [affective] disorder F3 9 ; Anxiety disorder, unspecified type F41.9 and ADHD (attention deficit hyperactivity disorder), combined type F90.2 [facility] [address] [address] [facility] [id number] [place] [address] Nov, Other specified bacterial ag ents as the cause of diseases classified elsewhere B96.89 and Otitis media, unspecified, bilateral H66.93 [facility] [address] [facility] [id number] [place] [address] Nov, Sore throat J02.9 and Acute nasopharyngitis J00 [place] [address] [address] Nov, ADHD (attention deficit hyperactivity di sorder), combined type F90.2 ; Anxiety disorder, unspecified type F41.9 and Unspecified mood [affective] disorder F39 [place] [address] [address] Oct, ADHD (attention deficit hyperactivity di sorder), combined type F90.2 [facility] [address] [address] Oct, ADHD (attention deficit hyperactivity di sorder), combined type F90.2 ; Anxiety disorder, unspecified type F41.9 and Unspecified mood [affective] disorder F39 [place] [address] [address] Sep, ADHD (attention deficit hyperactivity di sorder), combined type F90.2 [place] [address] [address] Sep, [facility] [address] [place] [id number] [place] [address] Aug, ADHD (attention deficit hyperactivity di sorder), combined type F90.2 ; Major depressive disorder, single episode, mild F32.0 and Anxiety disorder, unspecified type F41.9 [facility] [address] [facility] [id number] [address] [address] Aug, Sore throat J02.9 ; Other sp ecified bacterial agents as the cause of diseases classified elsewhere B96.89 and Acute tonsillitis due to other specified organisms J03.80 [facility] [address] [address] Aug, ADHD (attention deficit hyperactivity di sorder), combined type F90.2 [place] [address] [address] Jul, ADHD (attention deficit hyperactivity di sorder), combined type F90.2 [facility] [address] [address] June, ADHD (attention deficit hyperactivity di sorder), combined type F90.2 ; Major depressive disorder, single episode, mild F32.0 and Anxiety disorder, unspecified type F41.9 [facility] [address] [address] June, [facility] [address] [address] June, ADHD (attention deficit hyperactivity di sorder), combined type F90.2 [facility] [address] [address] May, [facility] [address] [address] May, ADHD (attention deficit hyperactivity di sorder), combined type F90.2 ; Major depressive disorder, single episode, mild F32.0 and Anxiety disorder, unspecified type F41.9 [facility] [address] [address] May, Anxiety disorder, unspecified type F41.9 [place] [address] [address] Apr, [place] [address] [address] Apr, Anxiety disorder, unspecified type F41.9 [place] [address] [address] Apr, Anxiety disorder, unspecified type F41.9 ; Major depressive disorder, single episode, mild F32.0 and ADHD (attention deficit hyperactivity disorder), combined type F90.2 [place] [address] [address] Apr, [place] [address] [address] Apr, ADHD (attention deficit hyperactivity di sorder), combined type F90.2 ; Anxiety state F41.1 ; Depressive disorder, not elsewhere classified F32.9 ; Major depressive disorder, single episode, mild F32.0 and Anxiety disorder, unspecified type F41.9 [place] [address] [address] Mar, ADHD (attention deficit hyperactivity di sorder), combined type F90.2 [place] [address] [address] Mar, Nausea R11.0 [place] [address] [address] Mar, Screening for STD sexually transmitted d isease Z11.3 ; Vaginal candidiasis B37.3 and Irritable bowel syndrome with diarrhea K58.0 [place] [address] [address] 04 Mar, 2017 [place] [address] [address] Feb, ADHD (attention deficit hyperactivity di sorder), combined type F90.2 [facility] [address] [address] Feb, Depressive disorder, not elsewhere class ified F32.9 ; Anxiety state F41.1 and ADHD (attention deficit hyperactivity disorder), combined type F90.2 [place] [address] [address] Feb, Depressive disorder, not elsewhere class ified F32.9 ; Anxiety state F41.1 and ADHD (attention deficit hyperactivity disorder), combined type F90.2 [place] [address] [address] Feb, ADHD (attention deficit hyperactivity di sorder), combined type F90.2 [facility] [address] [facility] [id number] [address] [address] Jan, Other viral agents as the ca use of diseases classified elsewhere B97.89 and Acute upper respiratory infection, unspecified J06.9 [place] [address] [address] Jan, ADHD (attention deficit hyperactivity di sorder), combined type F90.2 ; Major depressive disorder, single episode, mild F32.0 and Anxiety disorder, unspecified type F41.9 [place] [address] [address] Jan, [place] [address] [address] Jan, ADHD (attention deficit hyperactivity di sorder), combined type F90.2 ; Major depressive disorder, single episode, mild F32.0 and Anxiety disorder, unspecified type F41.9 [place] [address] [address] Dec, Irritable bowel syndrome with diarrhea K 58.0 and Lower abdominal pain R10.30 [place] [address] [address] 09 Dec, 2016 Hospital discharge follow-up Z09 ; Mesen teric adenitis I88.0 ; IBD (inflammatory bowel disease) K52.9 and Nausea R11.0 [place] [address] [address] Nov, ADHD (attention deficit hyperactivity di sorder), combined type F90.2 ; Major depressive disorder, single episode, mild F32.0 and Anxiety disorder, unspecified type F41.9 [place] [address] [address] Nov, Anxiety state F41.1 ; ADHD (attention de ficit hyperactivity disorder), combined type F90.2 ; Major depressive disorder, single episode, mild F32.0 and Anxiety disorder, unspecified type F41.9 [place] [address] [address] Oct, Anxiety state F41.1 ; ADHD (attention de ficit hyperactivity disorder), combined type F90.2 ; Major depressive disorder, single episode, mild F32.0 and Anxiety disorder, unspecified type F41.9 [place] [address] [address] Oct, ADHD (attention deficit hyperactivity di sorder), combined type F90.2 ; Major depressive disorder, single episode, mild F32.0 and Anxiety disorder, unspecified type F41.9 [place] [address] [address] Oct, Major depressive disorder, single episod e, mild F32.0 ; Anxiety state F41.1 ; ADHD (attention deficit hyperactivity disorder), combined type F90.2 and Depressive disorder, not elsewhere classified F32.9 [facility] [address] [place] [id number] [place] [address] Oct, [facility] [address] [place] [id number] [address] [place] [address] Oct, Cellulitis L03.90 and Planta r wart of right foot B07.0 [place] [address] [address] Aug, ADHD (attention deficit hyperactivity di sorder), combined type F90.2 ; Major depressive disorder, single episode, mild F32.0 and Anxiety disorder, unspecified type F41.9 [place] [address] [address] Aug, [place] [address] [address] Jul, ADHD (attention deficit hyperactivity di sorder), combined type F90.2 [place] [address] [address] Jul, Mesenteric adenitis I88.0 [place] [address] [address] June, [facility] [address] [address] June, Lower abdominal pain R10.30 [place] [address] [address] June, [place] [address] [address] June, ADHD (attention deficit hyperactivity di sorder), combined type F90.2 and Major depressive disorder, single episode, mild F32.0 [place] [address] [address] May, [place] [address] [address] May, ADHD (attention deficit hyperactivity di sorder), combined type F90.2 and Major depressive disorder, single episode, mild F32.0 [facility] [address] [place] [id number] [place] [address] Apr, Abdominal pain R10.9 and Gas troenteritis and colitis, viral A08.4 [place] [address] [address] Apr, [facility] [id number] [place] [address], [place] [address] Mar, Acute urticaria L50.8 [place] [address] [address] Mar, [place] [address] [address] Feb, [facility] [place] [address] [address] Feb, Gastroenteritis K52.9 [place] [address] [address] Feb, Irritant contact dermatitis due to awais tics L24.3 [place] [address] [address] Jan, [place] [address] [address] Jan, [place] [address] [address] Jan, ADHD (attention deficit hyperactivity di sorder), combined type F90.2 and Major depressive disorder, single episode, mild F32.0 [facility] [place] [address] [address] Dec, Flexural eczema L20.82 [place] [address] [address] Dec, Encounter for test Z32.00 [place] [address] [address] Dec, [place] [address] [address] Dec, [place] [address] [address] Dec, [facility] [address] [place] [id number] [place] [address] Nov, Sore throat J02.9 and Pharyn gitis, unspecified etiology J02.9 [facility] [address] [place] [id number] [place] [address] Nov, [facility] [address] [address] Nov, [facility] [address] [place] [id number] [place] [address] Nov, Generalized abdominal pain R10.84 and Sl ow transit constipation K59.01 [facility] [address] [id number] [place] [id number] Nov, Pharyngitis, unspecified etiology J02.9 and Rhinitis, unspecified type J31.0 [place] [address] [address] Oct, Depressive disorder, not elsewhere class ified F32.9 and ADHD (attention deficit hyperactivity disorder), combined type F90.2 [place] [address] [address] Oct, [facility] [address] [address] Oct, [facility] [address] [address] [facility] [id number] [address] [address] Oct, Strep throat J02.0 [facility] [address] [place] [id number] [place] [address] Oct, [place] [address] [address] Oct, Well woman exam with routine gynecologic al exam Z01.419 and Screening for STD sexually transmitted disease Z11.3 [place] [address] [address] Sep, ADHD (attention deficit hyperactivity di sorder), combined type F90.2 ; Anxiety state F41.1 and Depressive disorder, not elsewhere classified F32.9 [facility] [address] [address] Sep, ADHD (attention deficit hyperactivity di sorder), combined type F90.2 and Depressive disorder, not elsewhere classified F32.9 [facility] [address] [address] Aug, [facility] [address] [address] Aug, ADHD (attention deficit hyperactivity di sorder), combined type F90.2 and Depressive disorder, not elsewhere classified F32.9 [facility] [address] [address] Aug, ADHD (attention deficit hyperactivity di sorder), combined type F90.2 ; Anxiety state F41.1 and Depressive disorder, not elsewhere classified F32.9 [facility] [address] [address] Aug, [place] [address] [address] Aug, [facility] [address] [address] Jul, ADHD (attention deficit hyperactivity di sorder), combined type F90.2 ; Depressive disorder, not elsewhere classified F32.9 and Anxiety state F41.1 [place] [address] [address] Jul, [place] [address] [address] Jul, ADHD (attention deficit hyperactivity di sorder), combined type F90.2 ; Anxiety state F41.1 and Depressive disorder, not elsewhere classified F32.9 [facility] [address] [place] [id number] [place] [address] June, [facility] [address] [facility] [id number] June, Constipation K59.00 [place] [address] [place] [id number] [place] [address] May, Constipation K59.00 [facility] [address] [facility] [id number] [address] [address] 20 May, 2015 Irritable bowel syndrome wit h diarrhea K58.0 [facility] [address] [id number] [place] [address] 15 May, 2015 [facility] [address] [place] [id number] [place] [address] 15 May, 2015 [facility] [address] [place] [id number] [place] [address] 14 May, 2014 [facility] [address] [place] [id number] [place] [address] May, [facility] [address] [place] [id number] [place] [address] Jan, [facility] [address] [place] [id number] [place] [address] Jan, [facility] [address] [place] [id number] [place] [address] Jan, [facility] [address] [place] [id number] [place] [address] Jan, [facility] [address] [place] [id number] [place] [address] Jan, [facility] [address] [place] [id number] [place] [address] Jan, [facility] [address] [place] [id number] [place] [address] Nov, [facility] [address] [place] [id number] [place] [address] Nov, [facility] [address] [place] [id number] [place] [address] Oct, [facility] [address] [place] [id number] [place] [address] Oct, [facility] [address] [place] [id number] [place] [address] Sep, [facility] [address] [facility] [id number] [place] [address] Sep, [facility] [address] [facility] [id number] [place] [address] Aug, 2013 [facility] [address] [facility] [id number] [place] [address] Aug, 2013 [facility] [address] [id number] [place] [address] Aug, [facility] [address] [facility] [id number] [place] [address] Aug, [facility] [address] [id number] [place] [address] Aug, [facility] [address] [id number] [place] [address] Aug, [facility] [address] [id number] [place] [address] Aug, [facility] [address] [id number] [place] [address] Aug, [facility] [address] [id number] [place] [address] Jul, [facility] [address] [id number] [place] [address] Jul, [facility] [address] [id number] [place] [address] Jul, [facility] [address] [id number] [place] [address] Jul, [facility] [address] [id number] [place] [address] Jul, [facility] [address] [id number] [place] [address] Jul, [facility] [address] [id number] [place] [address] Jul, [facility] [address] [id number] [place] [address] Jul, [facility] [address] [id number] [place] [address] Jul, [facility] [address] [id number] [place] [address] June, [facility] [address] [id number] [place] [address] June, [facility] [address] [id number] [place] [address] May, [facility] [address] [facility] [id number] [place] [address] May, [facility] [address] [id number] [place] [address] May, [facility] [address] [id number] [place] [address] May, [facility] [address] [id number] [place] [address] May, [facility] [address] [id number] [place] [address] May, [facility] [address] [id number] [place] [address] May, [facility] [address] [id number] [place] [address] May, [facility] [address] [id number] [place] [address] May, [facility] [address] [id number] [place] [address] May, [facility] [address] [id number] [place] [address] May, [facility] [address] [id number] [place] [address] May, [facility] [address] [id number] [place] [address] Apr, [facility] [address] [id number] [place] [address] Apr, [facility] [address] [facility] [id number] [place] [address] Apr, [facility] [address] [id number] [place] [address] Apr, [facility] [address] [id number] [place] [address] Mar, [facility] [address] [id number] [place] [address] Mar, [facility] [address] [id number] [place] [address] Mar, [facility] [address] [id number] [place] [address] Mar, [facility] [address] [id number] [place] [address] Mar, [facility] [address] [id number] [place] [address] Mar, [facility] [address] [id number] [place] [address] Mar, [facility] [address] [id number] [place] [address] Mar, [facility] [address] [id number] [place] [address] Mar, [facility] [address] [id number] [place] [address] Mar, [facility] [address] [id number] [place] [address] 14 Mar, 2013 [facility] [address] [id number] [place] [address] 14 Mar, 2013 [facility] [address] [id number] [place] [address] 13 Mar, 2013 [facility] [address] [id number] [place] [address] Mar, [facility] [address] [facility] [id number] [facility] [place] [address] Mar, [facility] [address] [facility] [id number] [facility] [place] [address] Mar, [facility] [address] [id number] [facility] [place] [address] Mar, [facility] [address] [id number] [facility] [place] [address] Mar, [facility] [address] [facility] [id number] [place] [address] Mar, [facility] [address] [id number] [place] [address] Mar, [facility] [address] [id number] [place] [address] Feb, [facility] [address] [id number] [place] [address] Feb, [facility] [address] [id number] [place] [address] Feb, [facility] [address] [id number] [place] [address] Feb, [facility] [address] [id number] [place] [address] Feb, [facility] [address] [id number] [place] [address] Feb, [facility] [address] [facility] [id number] [place] [address] Feb, [facility] [address] [id number] [place] [address] Feb, [facility] [address] [id number] [place] [address] Feb, [facility] [address] [id number] [place] [address] Feb, [facility] [address] [id number] [place] [address] 23 Feb, 2013 [facility] [address] [id number] [place] [address] Feb, [facility] [address] [id number] [place] [address] 17 Feb, 2013 [facility] [address] [id number] [place] [address] Feb, [facility] [address] [id number] [place] [address] 16 Feb, 2013 [facility] [address] [id number] [place] [address] 15 Feb, 2013 [facility] [address] [id number] [place] [address] 15 Feb, 2013 [facility] [address] [id number] [place] [address] Feb, [facility] [address] [id number] [place] [address] Feb, [facility] [address] [id number] [place] [address] Feb, [facility] [address] [id number] [place] [address] Feb, [facility] [address] [id number] [place] [address] Feb, [facility] [address] [id number] [place] [address] Feb, [facility] [address] [id number] [place] [address] Jan, [facility] [address] [id number] [place] [address] 24 Jan, 2013 [facility] [address] [id number] [place] [address] Jan, [facility] [address] [id number] [place] [address] 18 Jan, 2013 [facility] [address] [id number] [place] [address] 18 Jan, 2012 [facility] [address] [id number] [place] [address] 18 Jan, 2013 [facility] [address] [id number] [place] [address] 18 Jan, 2013 [facility] [address] [id number] [place] [address] Jan, [facility] [address] [id number] [place] [address] 17 Jan, 2013 [facility] [address] [id number] [place] [address] Jan, [facility] [address] [id number] [place] [address] Jan, [facility] [address] [id number] [place] [address] Jan, [facility] [address] [id number] [place] [address] 04 Jan, 2013 [facility] [address] [id number] [place] [address] Dec, [facility] [address] [id number] [place] [address] Dec, [facility] [address] [id number] [place] [address] Dec, [facility] [address] [id number] [place] [address] Dec, [facility] [address] [id number] [place] [address] 15 Dec, 2012 [facility] [address] [id number] [place] [address] 15 Dec, 2012 [facility] [address] [id number] [place] [address] Nov, [facility] [address] [id number] [place] [address] Nov, [facility] [address] [id number] [place] [address] Nov, [facility] [address] [id number] [place] [address] Nov, [facility] [address] [id number] [place] [address] Nov, [facility] [id number] [place] [address] Nov, [facility] [address] [id number] [place] [address] 28 Oct, 2012 [facility] [id number] [place] [address] 27 Oct, 2012 [facility] [address] [id number] [place] [address] 26 Oct, 2012 [facility] [id number] [place] [address] Oct, [facility] [address] [id number] [place] [address] Oct, [facility] [id number] [place] [address] 18 Oct, 2012 [facility] [address] [id number] [place] [address] 13 Oct, 2012 IMMUNIZATIONS No Known Immunizations [...]
--- OUTSIDE RECORDS SUMMARY | 2019-06-25 21:27 | XMS REPORT ---
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 Name Role Phone JOSE ALEJANDRO Cope Unavailable PROBLEMS Type Condition ICD9-CM Code UZE03-NB Code Onset Dates Condition S tatus SNOMED Code Problem ADHD (attention deficit hyperactivity disorder), combi amparo type F90.2 Active 72245649 Problem Unspecified mood [affective] disorder F39 Active 38597916 Problem Intrinsic atopic dermatitis L20.84 Ac tive 44803137 Problem Slow transit constipation K59.01 Acti ve 57426854 Problem Anxiety disorder, unspecified type F41.9 Active 345072001 Problem Major depressive disorder, single episode, mild F3 2.0 Active 31610736 Problem Irritable bowel syndrome with diarrhea K58.0 Active [id number] ALLERGIES No Information ENCOUNTERS Encounter Location Date Diagnosis [facility] [address] [address] Feb, [facility] [address] [facility] [id number] [place] [address] Feb, Non-intractable vomiting wit h nausea, unspecified vomiting type R11.2 [facility] [address] [address] Jan, [facility] [address] [address] Jan, [facility] [address] [place] [address] Jan, First trimester Z34.91 [place] [address] [address] 16 Jan, 2019 Second trimester Z34.92 and In trinsic atopic dermatitis L20.84 [place] [id number] [place] [address] 27 Dec, 2018 First trimester Z34.91 [place] [address] [address] 22 Dec, 2018 Second trimester Z34.92 and Karen alvarez history of neural tube defect Z82.0 [facility] [address] [address] 18 Dec, 2018 [facility] [address] [address] 13 Dec, 2018 Second trimester Z34.92 ; Fami ly history of neural tube defect Z82.0 ; History of asthma Z87.09 and Wheezing R06.2 [facility] [id number] [place] [address] 08 Dec, 2018 [facility] [address] [place] [id number] [place] [address] Dec, [facility] [address] [address] Nov, care, subsequent in f irst trimester Z34.81 [place] [address] [address] 24 Nov, 2018 First trimester Z34.91 ; 10 we eks gestation of Z3A.10 and Nausea and vomiting during O21.[address] [address] 14 Nov, 2018 care, subsequent in f irst trimester Z34.81 [facility] [address] [facility] [id number] [address] [address] 05 Nov, 2018 Vomiting O21.9 [facility] [address] [address] 26 Oct, 2018 care, subsequent in f irst trimester Z34.81 and 6 weeks gestation of Z3A.01 [place] [address] [address] Oct, [facility] [address] [facility] [id number] [address] [address] Oct, Heat rash L74.0 [facility] [id number] [place] [address] Aug, UTI symptoms R39.9 [facility] [address] [address] Aug, [facility] [address] [address] Aug, UTI symptoms R39.9 [place] [address] [address] Aug, Hematuria, unspecified type R31.9 [facility] [address] [facility] [id number] [place] [address] Jul, Sore throat J02.9 ; UTI symp toms R39.9 and Hematuria, unspecified type R31.9 [place] [id number] [place] [address] June, Irritable bowel syndrome with diarrhea K 58.0 and Major depressive disorder, single episode, mild F32.0 [place] [id number] [place] [address] June, ADHD (attention deficit hyperactivity di sorder), combined type F90.2 ; Anxiety disorder, unspecified type F41.9 and Unspecified mood [affective] disorder F39 [place] [id number] [place] [address] May, ADHD (attention deficit hyperactivity di sorder), combined type F90.2 ; Anxiety disorder, unspecified type F41.9 ; Unspecified mood [affective] disorder F39 and 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 Z79.899 [place] [address] [address] May, Slow transit constipation K59.01 [place] [address] [address] May, ADHD (attention deficit hyperactivity di sorder), combined type F90.2 [facility] [address] [address] May, [facility] [address] [address] May, Abdominal pain R10.9 [facility] [address] [address] Apr, [facility] [address] [address] Apr, [facility] [address] [address] Apr, ADHD (attention deficit hyperactivity di sorder), combined type F90.2 [facility] [address] [address] Apr, Abdominal pain R10.9 [facility] [address] [address] Apr, [facility] [address] [address] Mar, [facility] [address] [address] Mar, ADHD (attention deficit hyperactivity di sorder), combined type F90.2 ; Anxiety disorder, unspecified type F41.9 and Unspecified mood [affective] disorder F39 [facility] [address] [address] Mar, Viral gastroenteritis A08.4 and Slow tra nsit constipation K59.01 [facility] [address] [facility] [id number] [address] [address] Mar, Viral gastroenteritis A08.4 [facility] [address] [id number] [place] [address] Mar, ADHD (attention deficit hyperactivity di sorder), combined type F90.2 [facility] [address] [address] Feb, Slow transit constipation K59.01 ; Misse d period N92.6 and Nausea R11.0 [facility] [address] [address] Feb, ADHD (attention deficit hyperactivity di sorder), combined type F90.2 [facility] [address] [facility] [id number] [address] [address] Jan, Nausea R11.0 and Viral upper respiratory tract infection J06.9 [place] [address] [address] Jan, [place] [address] [address] Jan, ADHD (attention deficit hyperactivity di sorder), combined type F90.2 ; Anxiety disorder, unspecified type F41.9 and Unspecified mood [affective] disorder F39 [place] [address] [address] Jan, Well woman exam with routine gynecologic al exam Z01.419 ; Routine screening for STI (sexually transmitted infection) Z11.3 and Vaginal jose B37.3 [place] [address] [address] Dec, [place] [address] [address] Dec, [place] [address] [address] Dec, ADHD (attention deficit hyperactivity di sorder), combined type F90.2 ; Anxiety disorder, unspecified type F41.9 and Unspecified mood [affective] disorder F39 [place] [address] [address] Dec, Unspecified mood [affective] disorder F3 9 ; Anxiety disorder, unspecified type F41.9 and ADHD (attention deficit hyperactivity disorder), combined type F90.2 [facility] [address] [facility] [id number] [place] [address] Nov, Other specified bacterial ag ents as the cause of diseases classified elsewhere B96.89 and Otitis media, unspecified, bilateral H66.93 [facility] [address] [facility] [id number] [place] [address] Nov, Sore throat J02.9 and Acute nasopharyngitis J00 [facility] [id number] [place] [address] Nov, ADHD (attention deficit hyperactivity di sorder), combined type F90.2 ; Anxiety disorder, unspecified type F41.9 and Unspecified mood [affective] disorder F39 [facility] [address] [id number] [place] [address] Oct, ADHD (attention deficit hyperactivity di sorder), combined type F90.2 [place] [address] [id number] [place] [address] Oct, ADHD (attention deficit hyperactivity di sorder), combined type F90.2 ; Anxiety disorder, unspecified type F41.9 and Unspecified mood [affective] disorder F39 [facility] [address] [id number] [place] [address] Sep, ADHD (attention deficit hyperactivity di sorder), combined type F90.2 [place] [id number] [place] [address] Sep, [place] [address] [address] [id number] [place] [address] Aug, ADHD (attention deficit hyperactivity di sorder), combined type F90.2 ; Major depressive disorder, single episode, mild F32.0 and Anxiety disorder, unspecified type F41.9 [facility] [address] [facility] [id number] [place] [address] Aug, Sore throat J02.9 ; Other sp ecified bacterial agents as the cause of diseases classified elsewhere B96.89 and Acute tonsillitis due to other specified organisms J03.80 [facility] [address] [address] Aug, ADHD (attention deficit hyperactivity di sorder), combined type F90.2 [facility] [address] [address] Jul, ADHD (attention deficit hyperactivity di sorder), combined type F90.2 [facility] [address] [address] June, ADHD (attention deficit hyperactivity di sorder), combined type F90.2 ; Major depressive disorder, single episode, mild F32.0 and Anxiety disorder, unspecified type F41.9 [facility] [address] [address] June, [facility] [address] [address] June, ADHD (attention deficit hyperactivity di sorder), combined type F90.2 [facility] [address] [address] May, [facility] [address] [address] May, ADHD (attention deficit hyperactivity di sorder), combined type F90.2 ; Major depressive disorder, single episode, mild F32.0 and Anxiety disorder, unspecified type F41.9 [facility] [address] [address] May, Anxiety disorder, unspecified type F41.9 [facility] [address] [address] Apr, [facility] [address] [address] Apr, Anxiety disorder, unspecified type F41.9 [facility] [address] [address] Apr, Anxiety disorder, unspecified type F41.9 ; Major depressive disorder, single episode, mild F32.0 and ADHD (attention deficit hyperactivity disorder), combined type F90.2 [place] [address] [address] Apr, [facility] [address] [address] Apr, ADHD (attention deficit hyperactivity di sorder), combined type F90.2 ; Anxiety state F41.1 ; Depressive disorder, not elsewhere classified F32.9 ; Major depressive disorder, single episode, mild F32.0 and Anxiety disorder, unspecified type F41.9 [place] [address] [address] Mar, ADHD (attention deficit hyperactivity di sorder), combined type F90.2 [place] [address] [address] Mar, Nausea R11.0 [place] [address] [address] 13 Mar, 2017 Screening for STD sexually transmitted d isease Z11.3 ; Vaginal candidiasis B37.3 and Irritable bowel syndrome with diarrhea K58.0 [place] [address] [address] Mar, [place] [address] [address] Feb, ADHD (attention deficit hyperactivity di sorder), combined type F90.2 [place] [address] [address] Feb, Depressive disorder, not elsewhere class ified F32.9 ; Anxiety state F41.1 and ADHD (attention deficit hyperactivity disorder), combined type F90.2 [place] [address] [address] Feb, Depressive disorder, not elsewhere class ified F32.9 ; Anxiety state F41.1 and ADHD (attention deficit hyperactivity disorder), combined type F90.2 [place] [address] [address] Feb, ADHD (attention deficit hyperactivity di sorder), combined type F90.2 [facility] [address] [facility] [id number] [address] [address] Jan, Other viral agents as the ca use of diseases classified elsewhere B97.89 and Acute upper respiratory infection, unspecified J06.9 [place] [address] [address] Jan, ADHD (attention deficit hyperactivity di sorder), combined type F90.2 ; Major depressive disorder, single episode, mild F32.0 and Anxiety disorder, unspecified type F41.9 [place] [address] [address] Jan, [place] [address] [address] Jan, ADHD (attention deficit hyperactivity di sorder), combined type F90.2 ; Major depressive disorder, single episode, mild F32.0 and Anxiety disorder, unspecified type F41.9 [place] [address] [address] Dec, Irritable bowel syndrome with diarrhea K 58.0 and Lower abdominal pain R10.30 [place] [address] [address] Dec, Hospital discharge follow-up Z09 ; Mesen teric adenitis I88.0 ; IBD (inflammatory bowel disease) K52.9 and Nausea R11.0 [place] [address] [address] Nov, ADHD (attention deficit hyperactivity di sorder), combined type F90.2 ; Major depressive disorder, single episode, mild F32.0 and Anxiety disorder, unspecified type F41.9 [place] [address] [address] Nov, Anxiety state F41.1 ; ADHD (attention de ficit hyperactivity disorder), combined type F90.2 ; Major depressive disorder, single episode, mild F32.0 and Anxiety disorder, unspecified type F41.9 [place] [address] [address] Oct, Anxiety state F41.1 ; ADHD (attention de ficit hyperactivity disorder), combined type F90.2 ; Major depressive disorder, single episode, mild F32.0 and Anxiety disorder, unspecified type F41.9 [place] [address] [address] Oct, ADHD (attention deficit hyperactivity di sorder), combined type F90.2 ; Major depressive disorder, single episode, mild F32.0 and Anxiety disorder, unspecified type F41.9 [place] [address] [address] Oct, Major depressive disorder, single episod e, mild F32.0 ; Anxiety state F41.1 ; ADHD (attention deficit hyperactivity disorder), combined type F90.2 and Depressive disorder, not elsewhere classified F32.9 [facility] [address] [place] [id number] [place] [address] Oct, [facility] [address] [place] [id number] [place] [address] Oct, Cellulitis L03.90 and Planta r wart of right foot B07.0 [place] [address] [address] Aug, ADHD (attention deficit hyperactivity di sorder), combined type F90.2 ; Major depressive disorder, single episode, mild F32.0 and Anxiety disorder, unspecified type F41.9 [place] [address] [address] Aug, [address] [address] Jul, ADHD (attention deficit hyperactivity di sorder), combined type F90.2 [place] [address] [address] Jul, Mesenteric adenitis I88.0 [facility] [address] [address] June, [facility] [address] [place] [address] June, Lower abdominal pain R10.30 [place] [address] [address] June, [facility] [address] [address] June, ADHD (attention deficit hyperactivity di sorder), combined type F90.2 and Major depressive disorder, single episode, mild F32.0 [place] [address] [address] May, [place] [address] [address] May, ADHD (attention deficit hyperactivity di sorder), combined type F90.2 and Major depressive disorder, single episode, mild F32.0 [facility] [address] [address] Apr, Abdominal pain R10.9 and Gas troenteritis and colitis, viral A08.4 [place] [address] [address] Apr, [facility] [address] [place] [id number] [place] [address] Mar, Acute urticaria L50.8 [facility] [address] [address] Mar, [place] [address] [address] Feb, [facility] [address] [place] [id number] [place] [address] Feb, Gastroenteritis K52.9 [place] [address] [address] Feb, Irritant contact dermatitis due to awais tics L24.3 [place] [address] [address] Jan, [place] [address] [address] Jan, [place] [address] [address] Jan, ADHD (attention deficit hyperactivity di sorder), combined type F90.2 and Major depressive disorder, single episode, mild F32.0 [facility] [address] [address] Dec, Flexural eczema L20.[address] [address] Dec, Encounter for test Z32.00 [place] [address] [address] Dec, [place] [address] [address] Dec, [place] [address] [address] Dec, [facility] [address] [place], [place] [id number] [address] [place] [address] Nov, Sore throat J02.9 and Pharyn gitis, unspecified etiology J02.9 [place] [address] [address] Nov, [place] [address] [address] Nov, [place] [address] [address] Nov, Generalized abdominal pain R10.84 and Sl ow transit constipation K59.01 [facility] [address] [place] [id number] [place] [id number] Nov, Pharyngitis, unspecified etiology J02.9 and Rhinitis, unspecified type J31.0 [facility] [address] [address] Oct, Depressive disorder, not elsewhere class ified F32.9 and ADHD (attention deficit hyperactivity disorder), combined type F90.2 [facility] [address] [address] Oct, [facility] [id number] [place] [address] Oct, [facility] [address] [facility] [id number] [address] [address] Oct, Strep throat J02.0 [facility] [address] [address] Oct, [facility] [address] [address] Oct, Well woman exam with routine gynecologic al exam Z01.419 and Screening for STD sexually transmitted disease Z11.3 [place] [address] [address] Sep, ADHD (attention deficit hyperactivity di sorder), combined type F90.2 ; Anxiety state F41.1 and Depressive disorder, not elsewhere classified F32.9 [place] [address] [address] Sep, ADHD (attention deficit hyperactivity di sorder), combined type F90.2 and Depressive disorder, not elsewhere classified F32.9 [facility] [address] [address] Aug, [place] [address] [address] Aug, ADHD (attention deficit hyperactivity di sorder), combined type F90.2 and Depressive disorder, not elsewhere classified F32.9 [place] [address] [address] Aug, ADHD (attention deficit hyperactivity di sorder), combined type F90.2 ; Anxiety state F41.1 and Depressive disorder, not elsewhere classified F32.9 [facility] [address] [address] Aug, [facility] [address] [address] Aug, [facility] [address] [address] Jul, ADHD (attention deficit hyperactivity di sorder), combined type F90.2 ; Depressive disorder, not elsewhere classified F32.9 and Anxiety state F41.1 [facility] [address] [address] Jul, [facility] [address] [address] Jul, ADHD (attention deficit hyperactivity di sorder), combined type F90.2 ; Anxiety state F41.1 and Depressive disorder, not elsewhere classified F32.9 [facility] [id number] [place] [address] June, [facility] [address] [facility] [place] [id number] June, Constipation K59.00 [facility] [id number] [place] [address] May, Constipation K59.00 [facility] [address] [facility] [id number] [address] [address] May, Irritable bowel syndrome wit h diarrhea K58.0 [facility] [id number] [place] [address] May, [facility] [address] [address] May, [facility] [id number] [place] [address] May, [facility] [address] [id number] [place] [address] May, [facility] [address] [id number] [place] [address] Jan, [facility] [address] [id number] [place] [address] Jan, [facility] [address] [id number] [place] [address] Jan, [facility] [address] [id number] [place] [address] Jan, [facility] [address] [id number] [place] [address] Jan, [facility] [address] [id number] [place] [address] Jan, [facility] [address] [id number] [place] [address] Nov, [facility] [address] [id number] [place] [address] Nov, [facility] [address] [id number] [place] [address] Oct, [facility] [address] [id number] [place] [address] Oct, [facility] [address] [id number] [place] [address] Sep, [facility] [address] [id number] [place] [address] Sep, [facility] [address] [id number] [place] [address] Aug, [facility] [address] [id number] [place] [address] Aug, [facility] [address] [id number] [place] [address] Aug, [facility] [address] [id number] [place] [address] Aug, [facility] [address] [facility] [id number] [facility] [place] [address] Aug, [facility] [address] [facility] [id number] [facility] [place] [address] Aug, [facility] [address] [id number] [facility] [place] [address] Aug, [facility] [address] [id number] [place] [address] Aug, [facility] [address] [id number] [place] [address] Jul, [facility] [address] [id number] [place] [address] Jul, [facility] [address] [id number] [place] [address] Jul, [facility] [address] [id number] [place] [address] Jul, [facility] [address] [id number] [place] [address] Jul, [facility] [address] [id number] [place] [address] Jul, [facility] [address] [id number] [place] [address] Jul, [facility] [address] [id number] [place] [address] Jul, [facility] [address] [id number] [place] [address] Jul, [facility] [address] [id number] [place] [address] June, [facility] [address] [id number] [place] [address] June, [facility] [address] [id number] [place] [address] May, [facility] [address] [facility] [id number] [place] [place] [address] May, [facility] [address] [id number] [facility] [place] [address] May, [facility] [address] [facility] [id number] [place] [address] May, [facility] [address] [id number] [place] [address] May, [facility] [address] [facility] [id number] [facility] [place] [address] May, [facility] [address] [facility] [id number] [place] [address] May, [facility] [address] [id number] [place] [address] May, [facility] [address] [id number] [place] [address] May, [facility] [address] [id number] [place] [address] May, [facility] [address] [facility] [id number] [place] [address] May, [facility] [address] [id number] [place] [address] May, [facility] [address] [id number] [place] [address] Apr, [facility] [address] [id number] [place] [address] Apr, [facility] [address] [facility] [id number] [place] [address] Apr, [facility] [address] [id number] [place] [address] Apr, [facility] [address] [id number] [place] [address] Mar, [facility] [address] [id number] [place] [address] Mar, [facility] [address] [id number] [place] [address] Mar, [facility] [address] [id number] [place] [address] Mar, [facility] [address] [id number] [place] [address] Mar, [facility] [address] [id number] [place] [address] Mar, 2013 [facility] [address] [id number] [place] [address] Mar, [facility] [address] [id number] [place] [address] Mar, [facility] [address] [id number] [place] [address] Mar, [facility] [address] [id number] [place] [address] Mar, 2013 [facility] [address] [id number] [place] [address] 14 Mar, 2013 [facility] [address] [id number] [place] [address] Mar, [facility] [address] [id number] [place] [address] Mar, [facility] [address] [id number] [place] [address] Mar, 2013 [facility] [address] [id number] [place] [address] Mar, [facility] [address] [id number] [place] [address] Mar, 2013 [facility] [address] [id number] [place] [address] Mar, 2013 [facility] [address] [id number] [place] [address] 11 Mar, 2013 [facility] [address] [id number] [place] [address] Mar, [facility] [address] [id number] [place] [address] Mar, [facility] [address] [id number] [place] [address] Feb, [facility] [address] [id number] [place] [address] Feb, [facility] [address] [id number] [place] [address] Feb, [facility] [address] [id number] [place] [address] Feb, [facility] [address] [id number] [place] [address] Feb, [facility] [address] [id number] [place] [address] Feb, [facility] [address] [id number] [place] [address] Feb, [facility] [address] [id number] [place] [address] Feb, [facility] [address] [id number] [place] [address] Feb, [facility] [address] [id number] [place] [address] Feb, [facility] [address] [id number] [place] [address] Feb, [facility] [address] [id number] [place] [address] Feb, [facility] [address] [id number] [place] [address] Feb, [facility] [address] [id number] [place] [address] Feb, [facility] [address] [id number] [place] [address] 16 Feb, 2013 [facility] [address] [id number] [place] [address] 15 Feb, 2013 [facility] [address] [id number] [place] [address] 15 Feb, 2013 [facility] [address] [id number] [place] [address] 15 Feb, 2013 [facility] [address] [id number] [place] [address] 15 Feb, 2013 [facility] [address] [id number] [place] [address] Feb, [facility] [address] [id number] [place] [address] Feb, [facility] [address] [id number] [place] [address] Feb, [facility] [address] [id number] [place] [address] Feb, [facility] [address] [id number] [place] [address] 24 Jan, 2013 [facility] [address] [id number] [place] [address] 24 Jan, 2013 [facility] [address] [id number] [place] [address] 19 Jan, 2013 [facility] [address] [id number] [place] [address] 18 Jan, 2013 [facility] [address] [id number] [place] [address] 18 Jan, 2013 [facility] [address] [id number] [place] [address] 18 Jan, 2013 [facility] [address] [id number] [place] [address] 18 Jan, 2013 [facility] [address] [id number] [place] [address] 17 Jan, 2013 [facility] [address] [id number] [place] [address] 17 Jan, 2012 [facility] [address] [id number] [place] [address] Jan, 2012 [facility] [address] [id number] [place] [address] Jan, [facility] [address] [id number] [place] [address] Jan, [facility] [address] [id number] [place] [address] Jan, [facility] [address] [id number] [place] [address] Dec, [facility] [address] [id number] [place] [address] Dec, [facility] [address] [id number] [place] [address] Dec, [facility] [address] [id number] [place] [address] Dec, [facility] [address] [id number] [place] [address] Dec, [facility] [address] [id number] [place] [address] Dec, [facility] [address] [id number] [place] [address] Nov, [facility] [address] [id number] [place] [address] Nov, [facility] [address] [id number] [place] [address] Nov, [facility] [address] [id number] [place] [address] Nov, [facility] [address] [id number] [place] [address] Nov, [facility] [address] [id number] [place] [address] Nov, [facility] [address] [id number] [place] [address] 28 Oct, 2012 [facility] [id number] [place] [address] Oct, [facility] [address] [id number] [place] [address] Oct, [facility] [id number] [place] [address] Oct, [facility] [id number] [place] [address] Oct, [facility] [id number] [place] [address] 18 Oct, 2012 [facility] [address] [id number] [place] [address] Oct, IMMUNIZATIONS No Known Immunizations SOCIAL HISTORY Never Assessed REASON FOR VISIT PLAN OF CARE VITAL SIGNS MEDICATIONS Unknown Medications RESULTS No Results PROCEDURES Procedure Date Ordered Result Body Site THER/PROPH/DIAG INJ, SC/IM July 25, 2013 Medroxyprogesterone inj July 25, 2013 URINE TEST July 25, 2013 INSTRUCTIONS MEDICATIONS ADMINISTERED No Known Medications [...]
--- OUTSIDE RECORDS SUMMARY | 2019-06-25 21:27 | XMS REPORT ---
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 Name Role Phone JOSE ALEJANDRO Cope Unavailable PROBLEMS Type Condition ICD9-CM Code [id number] Code Onset Dates Condition S tatus SNOMED Code Problem ADHD (attention deficit hyperactivity disorder), combi amparo type F90.2 Active 47248411 Problem Unspecified mood [affective] disorder F39 Active 83963971 Problem Intrinsic atopic dermatitis L20.84 Ac tive 38388790 Problem Slow transit constipation K59.01 Acti ve 58322109 Problem Anxiety disorder, unspecified type F41.9 Active 944871725 Problem Major depressive disorder, single episode, mild F3 2.0 Active 38973061 Problem Irritable bowel syndrome with diarrhea K58.0 Active 179994082 ALLERGIES No Information ENCOUNTERS Encounter Location Date Diagnosis [place] [address] [address] Mar, [facility] [address] [address] Feb, [address] [address] Feb, Second trimester Z33.1 [facility] [address] [place] [address] 13 Feb, 2019 Second trimester Z34.92 ; 21 w eeks gestation of Z3A.21 and Exposure to STD Z20.2 [facility] [address] [place] [address] Feb, Second trimester Z33.1 [facility] [address] [facility] [id number] [place] [address] 05 Feb, 2019 Non-intractable vomiting wit h nausea, unspecified vomiting type R11.2 [place] [address] [address] Jan, [place] [address] [address] Jan, [place] [address] [address] Jan, First trimester Z34.91 [place] [address] [address] 16 Jan, 2019 Second trimester Z34.92 and In trinsic atopic dermatitis L20.[address] [address] Dec, First trimester Z34.91 [place] [address] [address] Dec, Second trimester Z34.92 and Fa kim history of neural tube defect Z82.0 [place] [address] [address] 18 Dec, [address] [address] Dec, Second trimester Z34.92 ; Fami ly history of neural tube defect Z82.0 ; History of asthma Z87.09 and Wheezing R06.2 [place] [address] [address] Dec, [facility] [address] [facility] [address] Dec, [address] [address] Nov, care, subsequent in f irst trimester Z34.[address] [address] Nov, First trimester Z34.91 ; 10 we eks gestation of Z3A.10 and Nausea and vomiting during O21.9 [facility] [address] [place] [id number] [place] [address] 14 Nov, 2018 care, subsequent in f irst trimester Z34.81 [facility] [address] [facility] [id number] [address] [place] [address] 05 Nov, 2018 Vomiting O21.9 [facility] [address] [address] 26 Oct, 2018 care, subsequent in f irst trimester Z34.81 and 6 weeks gestation of Z3A.01 [place] [address] [address] 20 Oct, 2018 [facility] [place] [address] [facility] [id number] [address] [place] [address] 06 Oct, 2018 Heat rash L74.0 [place] [address] [address] Aug, UTI symptoms R39.9 [place] [address] [address] Aug, [place] [address] [address] Aug, UTI symptoms R39.9 [place] [address] [address] Aug, Hematuria, unspecified type R31.9 [facility] [address] [facility] [id number] [address] [place] [address] Jul, Sore throat J02.9 ; UTI symp toms R39.9 and Hematuria, unspecified type R31.9 [place] [address] [address] June, Irritable bowel syndrome with diarrhea K 58.0 and Major depressive disorder, single episode, mild F32.0 [place] [address] [address] June, ADHD (attention deficit hyperactivity di sorder), combined type F90.2 ; Anxiety disorder, unspecified type F41.9 and Unspecified mood [affective] disorder F39 [facility] [address] [address] May, ADHD (attention deficit hyperactivity di sorder), combined type F90.2 ; Anxiety disorder, unspecified type F41.9 ; Unspecified mood [affective] disorder F39 and 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 [facility] [address] [address] May, Slow transit constipation K59.01 [facility] [address] [address] May, ADHD (attention deficit hyperactivity di sorder), combined type F90.2 [facility] [address] [address] May, [facility] [address] [address] May, Abdominal pain R10.9 [facility] [address] [address] Apr, [facility] [address] [address] Apr, [facility] [address] [address] Apr, ADHD (attention deficit hyperactivity di sorder), combined type F90.2 [facility] [address] [address] Apr, Abdominal pain R10.9 [facility] [address] [address] Apr, [facility] [address] [address] Mar, [facility] [address] [address] Mar, ADHD (attention deficit hyperactivity di sorder), combined type F90.2 ; Anxiety disorder, unspecified type F41.9 and Unspecified mood [affective] disorder F39 [place] [address] [address] Mar, Viral gastroenteritis A08.4 and Slow tra nsit constipation K59.01 [facility] [address] [place] [id number] [place] [address] Mar, Viral gastroenteritis A08.4 [place] [address] [address] Mar, ADHD (attention deficit hyperactivity di sorder), combined type F90.2 [place] [address] [address] Feb, Slow transit constipation K59.01 ; Misse d period N92.6 and Nausea R11.0 [place] [address] [address] Feb, ADHD (attention deficit hyperactivity di sorder), combined type F90.2 [facility] [address] [place] [id number] [place] [address] Jan, Nausea R11.0 and Viral upper respiratory tract infection J06.9 [place] [address] [address] Jan, [place] [address] [address] Jan, ADHD (attention deficit hyperactivity di sorder), combined type F90.2 ; Anxiety disorder, unspecified type F41.9 and Unspecified mood [affective] disorder F39 [place] [address] [address] Jan, Well woman exam with routine gynecologic al exam Z01.419 ; Routine screening for STI (sexually transmitted infection) Z11.3 and Vaginal jose B37.3 [place] [address] [address] Dec, [facility] [address] [place] [id number] [place] [address] Dec, [place] [address] [address] Dec, ADHD (attention deficit hyperactivity di sorder), combined type F90.2 ; Anxiety disorder, unspecified type F41.9 and Unspecified mood [affective] disorder F39 [place] [address] [address] Dec, Unspecified mood [affective] disorder F3 9 ; Anxiety disorder, unspecified type F41.9 and ADHD (attention deficit hyperactivity disorder), combined type F90.2 [facility] [address] [place] [id number] [place] [address] Nov, Other specified bacterial ag ents as the cause of diseases classified elsewhere B96.89 and Otitis media, unspecified, bilateral H66.93 [facility] [address] [place] [id number] [place] [address] Nov, Sore throat J02.9 and Acute nasopharyngitis J00 [place] [address] [address] Nov, ADHD (attention deficit hyperactivity di sorder), combined type F90.2 ; Anxiety disorder, unspecified type F41.9 and Unspecified mood [affective] disorder F39 [place] [address] [address] Oct, ADHD (attention deficit hyperactivity di sorder), combined type F90.2 [place] [address] [address] Oct, ADHD (attention deficit hyperactivity di sorder), combined type F90.2 ; Anxiety disorder, unspecified type F41.9 and Unspecified mood [affective] disorder F39 [facility] [address] [address] Sep, ADHD (attention deficit hyperactivity di sorder), combined type F90.2 [facility] [address] [place] [id number] [place] [address] Sep, [facility] [address] [place] [id number] [place] [address] Aug, ADHD (attention deficit hyperactivity di sorder), combined type F90.2 ; Major depressive disorder, single episode, mild F32.0 and Anxiety disorder, unspecified type F41.9 [facility] [address] [facility] [id number] [address] [address] Aug, Sore throat J02.9 ; Other sp ecified bacterial agents as the cause of diseases classified elsewhere B96.89 and Acute tonsillitis due to other specified organisms J03.80 [facility] [address] [place] [id number] [place] [address] Aug, ADHD (attention deficit hyperactivity di sorder), combined type F90.2 [place] [address] [place] [id number] [place] [address] Jul, ADHD (attention deficit hyperactivity di sorder), combined type F90.2 [facility] [address] [place] [id number] [place] [address] June, ADHD (attention deficit hyperactivity di sorder), combined type F90.2 ; Major depressive disorder, single episode, mild F32.0 and Anxiety disorder, unspecified type F41.9 [place] [address] [place] [id number] [place] [address] June, [place] [address] [address] June, ADHD (attention deficit hyperactivity di sorder), combined type F90.2 [place] [address] [address] May, [place] [address] [address] May, ADHD (attention deficit hyperactivity di sorder), combined type F90.2 ; Major depressive disorder, single episode, mild F32.0 and Anxiety disorder, unspecified type F41.9 [place] [address] [address] May, Anxiety disorder, unspecified type F41.9 [place] [address] [address] Apr, [facility] [address] [address] Apr, Anxiety disorder, unspecified type F41.9 [place] [address] [address] Apr, Anxiety disorder, unspecified type F41.9 ; Major depressive disorder, single episode, mild F32.0 and ADHD (attention deficit hyperactivity disorder), combined type F90.2 [place] [address] [address] Apr, [place] [address] [address] Apr, ADHD (attention deficit hyperactivity di sorder), combined type F90.2 ; Anxiety state F41.1 ; Depressive disorder, not elsewhere classified F32.9 ; Major depressive disorder, single episode, mild F32.0 and Anxiety disorder, unspecified type F41.9 [place] [address] [address] Mar, ADHD (attention deficit hyperactivity di sorder), combined type F90.2 [place] [address] [address] Mar, Nausea R11.0 [place] [address] [address] 13 Mar, 2017 Screening for STD sexually transmitted d isease Z11.3 ; Vaginal candidiasis B37.3 and Irritable bowel syndrome with diarrhea K58.0 [place] [address] [address] 04 Mar, 2017 [place] [address] [address] Feb, ADHD (attention deficit hyperactivity di sorder), combined type F90.2 [facility] [address] [address] Feb, Depressive disorder, not elsewhere class ified F32.9 ; Anxiety state F41.1 and ADHD (attention deficit hyperactivity disorder), combined type F90.2 [place] [address] [address] Feb, Depressive disorder, not elsewhere class ified F32.9 ; Anxiety state F41.1 and ADHD (attention deficit hyperactivity disorder), combined type F90.2 [place] [address] [address] Feb, ADHD (attention deficit hyperactivity di sorder), combined type F90.2 [facility] [address] [facility] [id number] [address] [address] Jan, Other viral agents as the ca use of diseases classified elsewhere B97.89 and Acute upper respiratory infection, unspecified J06.9 [place] [address] [address] Jan, ADHD (attention deficit hyperactivity di sorder), combined type F90.2 ; Major depressive disorder, single episode, mild F32.0 and Anxiety disorder, unspecified type F41.9 [place] [address] [address] Jan, [place] [address] [address] Jan, ADHD (attention deficit hyperactivity di sorder), combined type F90.2 ; Major depressive disorder, single episode, mild F32.0 and Anxiety disorder, unspecified type F41.9 [place] [address] [address] Dec, Irritable bowel syndrome with diarrhea K 58.0 and Lower abdominal pain R10.30 [place] [address] [address] Dec, Hospital discharge follow-up Z09 ; Mesen teric adenitis I88.0 ; IBD (inflammatory bowel disease) K52.9 and Nausea R11.0 [place] [address] [address] Nov, ADHD (attention deficit hyperactivity di sorder), combined type F90.2 ; Major depressive disorder, single episode, mild F32.0 and Anxiety disorder, unspecified type F41.9 [place] [address] [address] Nov, Anxiety state F41.1 ; ADHD (attention de ficit hyperactivity disorder), combined type F90.2 ; Major depressive disorder, single episode, mild F32.0 and Anxiety disorder, unspecified type F41.9 [place] [address] [address] Oct, Anxiety state F41.1 ; ADHD (attention de ficit hyperactivity disorder), combined type F90.2 ; Major depressive disorder, single episode, mild F32.0 and Anxiety disorder, unspecified type F41.9 [place] [address] [address] Oct, ADHD (attention deficit hyperactivity di sorder), combined type F90.2 ; Major depressive disorder, single episode, mild F32.0 and Anxiety disorder, unspecified type F41.9 [place] [address] [address] Oct, Major depressive disorder, single episod e, mild F32.0 ; Anxiety state F41.1 ; ADHD (attention deficit hyperactivity disorder), combined type F90.2 and Depressive disorder, not elsewhere classified F32.9 [facility] [address] [place] [id number] [address] [place] [address] 16 Oct, 2016 [facility] [address] [place] [id number] [place] [address] Oct, Cellulitis L03.90 and Planta r wart of right foot B07.0 [facility] [address] [address] Aug, ADHD (attention deficit hyperactivity di sorder), combined type F90.2 ; Major depressive disorder, single episode, mild F32.0 and Anxiety disorder, unspecified type F41.9 [facility] [address] [address] Aug, [place] [address] [address] Jul, ADHD (attention deficit hyperactivity di sorder), combined type F90.2 [place] [address] [address] Jul, Mesenteric adenitis I88.0 [place] [address] [address] June, [facility] [address] [place] [id number] [place] [address] June, Lower abdominal pain R10.30 [place] [address] [address] June, [place] [address] [address] June, ADHD (attention deficit hyperactivity di sorder), combined type F90.2 and Major depressive disorder, single episode, mild F32.0 [place] [address] [address] May, [place] [address] [address] May, ADHD (attention deficit hyperactivity di sorder), combined type F90.2 and Major depressive disorder, single episode, mild F32.0 [facility] [address] [place] [id number] [place] [address] Apr, Abdominal pain R10.9 and Gas troenteritis and colitis, viral A08.4 [place] [address] [address] Apr, [facility] [address] [address] Mar, Acute urticaria L50.8 [facility] [address] [address] Mar, [facility] [address] [address] Feb, [facility] [address] [address] Feb, Gastroenteritis K52.9 [place] [address] [address] Feb, Irritant contact dermatitis due to awais tics L24.3 [place] [address] [address] Jan, [place] [address] [address] Jan, [place] [address] [address] Jan, ADHD (attention deficit hyperactivity di sorder), combined type F90.2 and Major depressive disorder, single episode, mild F32.0 [facility] IN [address] [address] Dec, Flexural eczema L20.82 [place] [address] [address] Dec, Encounter for test Z32.00 [place] [address] [address] Dec, [place] [address] [address] Dec, [place] [address] [address] Dec, [facility] [address] [place] [address] Nov, Sore throat J02.9 and Pharyn gitis, unspecified etiology J02.9 [facility] [address] [address] Nov, [facility] [address] [place] [id number] [place] [address] Nov, [facility] [address] [address] Nov, Generalized abdominal pain R10.84 and Sl ow transit constipation K59.01 [facility] [address] [id number] [place] [id number] Nov, Pharyngitis, unspecified etiology J02.9 and Rhinitis, unspecified type J31.0 [facility] [address] [address] Oct, Depressive disorder, not elsewhere class ified F32.9 and ADHD (attention deficit hyperactivity disorder), combined type F90.2 [facility] [address] [address] Oct, [facility] [address] [address] Oct, [facility] [address] [facility] [id number] [address] [place] [address] Oct, Strep throat J02.0 [facility] [address] [address] 16 Oct, 2015 [facility] [address] [address] 09 Oct, 2015 Well woman exam with routine gynecologic al exam Z01.419 and Screening for STD sexually transmitted disease Z11.3 [facility] [address] [address] Sep, ADHD (attention deficit hyperactivity di sorder), combined type F90.2 ; Anxiety state F41.1 and Depressive disorder, not elsewhere classified F32.9 [facility] [address] [place] [id number] [place] [address] Sep, ADHD (attention deficit hyperactivity di sorder), combined type F90.2 and Depressive disorder, not elsewhere classified F32.9 [facility] [address] [place] [id number] [place] [address] Aug, [facility] [address] [address] Aug, ADHD (attention deficit hyperactivity di sorder), combined type F90.2 and Depressive disorder, not elsewhere classified F32.9 [facility] [address] [place] [id number] [place] [address] Aug, ADHD (attention deficit hyperactivity di sorder), combined type F90.2 ; Anxiety state F41.1 and Depressive disorder, not elsewhere classified F32.9 [facility] [address] [address] Aug, [facility] [address] [id number] [place] [address] Aug, [facility] [address] [place] [id number] [place] [address] Jul, ADHD (attention deficit hyperactivity di sorder), combined type F90.2 ; Depressive disorder, not elsewhere classified F32.9 and Anxiety state F41.1 [facility] [address] [place] [id number] [place] [address] Jul, [facility] [address] [place] [id number] [place] [address] Jul, ADHD (attention deficit hyperactivity di sorder), combined type F90.2 ; Anxiety state F41.1 and Depressive disorder, not elsewhere classified F32.9 [facility] [address] [id number] [place] [address] June, [facility] [address] [id number] [place] [id number] June, Constipation K59.00 [place] [address] [place] [id number] [place] [address] 28 May, 2015 Constipation K59.00 [facility] [address] [facility] [id number] [address] [place] [address] 20 May, 2016 Irritable bowel syndrome wit h diarrhea K58.0 [facility] [id number] [place] [address] 15 May, 2015 [facility] [id number] [place] [address] 15 May, 2015 [facility] [address] [place] [id number] [place] [address] 14 May, 2014 [facility] [id number] [place] [address] 13 May, 2014 [facility] [id number] [place] [address] Jan, [facility] [id number] [place] [address] Jan, [facility] [id number] [place] [address] 08 Jan, 2014 [facility] [id number] [place] [address] Jan, [facility] [id number] [place] [address] 05 Jan, 2014 [facility] [id number] [place] [address] 05 Jan, 2014 [facility] [id number] [place] [address] Nov, [facility] [address] [place] [id number] [place] [address] Nov, [facility] [id number] [place] [address] 18 Oct, 2013 [facility] [address] [place] [id number] [place] [address] 18 Oct, 2013 [facility] [address] [facility] [id number] [place] [address] Sep, [facility] [address] [facility] [id number] [place] [address] Sep, [facility] [address] [facility] [id number] [place] [address] Aug, [facility] [address] [id number] [place] [address] Aug, [facility] [address] [facility] [id number] [place] [address] Aug, [facility] [address] [facility] [id number] [place] [address] Aug, [facility] [address] [id number] [place] [address] Aug, [facility] [address] [id number] [place] [address] Aug, [facility] [address] [id number] [place] [address] Aug, [facility] [address] [id number] [place] [address] Aug, [facility] [address] [id number] [place] [address] Jul, [facility] [address] [id number] [place] [address] Jul, [facility] [address] [id number] [place] [address] Jul, [facility] [address] [facility] [id number] [place] [address] Jul, [facility] [address] [id number] [place] [address] Jul, [facility] [address] [id number] [place] [address] Jul, [facility] [address] [id number] [place] [address] Jul, [facility] [address] [id number] [place] [address] Jul, [facility] [address] [id number] [place] [address] Jul, [facility] [address] [id number] [place] [address] June, [facility] [address] [id number] [place] [address] June, [facility] [address] [facility] [id number] [place] [address] May, [facility] [address] [id number] [place] [address] May, [facility] [address] [id number] [place] [address] May, [facility] [address] [id number] [place] [address] May, [facility] [address] [id number] [place] [address] May, [facility] [address] [id number] [place] [address] May, [facility] [address] [id number] [place] [address] May, [facility] [address] [id number] [place] [address] May, [facility] [address] [id number] [place] [address] May, [facility] [address] [id number] [place] [address] May, [facility] [address] [id number] [place] [address] May, [facility] [address] [id number] [place] [address] May, [facility] [address] [id number] [place] [address] Apr, [facility] [address] [facility] [id number] [place] [address] Apr, [facility] [address] [facility] [id number] [place] [address] Apr, [facility] [address] [id number] [place] [address] Apr, [facility] [address] [id number] [place] [address] Mar, [facility] [address] [id number] [place] [address] Mar, [facility] [address] [id number] [place] [address] Mar, [facility] [address] [id number] [place] [address] Mar, [facility] [address] [id number] [place] [address] Mar, [facility] [address] [id number] [place] [address] Mar, [facility] [address] [id number] [place] [address] Mar, [facility] [address] [id number] [place] [address] Mar, [facility] [address] [id number] [place] [address] Mar, [facility] [address] [id number] [place] [address] 19 Mar, 2013 [facility] [address] [id number] [place] [address] 14 Mar, 2013 [facility] [address] [id number] [place] [address] 14 Mar, 2013 [facility] [address] [id number] [place] [address] Mar, [facility] [address] [facility] [id number] [place] [address] Mar, [facility] [address] [facility] [id number] [place] [address] Mar, [facility] [address] [facility] [id number] [place] [address] Mar, [facility] [address] [facility] [id number] [place] [address] Mar, [facility] [address] [facility] [id number] [place] [address] Mar, [facility] [address] [id number] [place] [address] Mar, [facility] [address] [id number] [place] [address] Mar, [facility] [address] [id number] [place] [address] Feb, [facility] [address] [id number] [place] [address] Feb, [facility] [address] [id number] [place] [address] Feb, [facility] [address] [id number] [place] [address] Feb, [facility] [address] [id number] [place] [address] Feb, [facility] [address] [facility] [id number] [place] [address] Feb, [facility] [address] [id number] [place] [address] Feb, [facility] [address] [id number] [place] [address] Feb, [facility] [address] [id number] [place] [address] Feb, [facility] [address] [id number] [place] [address] 24 Feb, 2013 [facility] [address] [id number] [place] [address] Feb, [facility] [address] [id number] [place] [address] Feb, [facility] [address] [id number] [place] [address] 17 Feb, 2013 [facility] [address] [id number] [place] [address] Feb, [facility] [address] [id number] [place] [address] 16 Feb, 2013 [facility] [address] [id number] [place] [address] Feb, [facility] [address] [id number] [place] [address] Feb, [facility] [address] [id number] [place] [address] Feb, [facility] [address] [id number] [place] [address] Feb, [facility] [address] [id number] [place] [address] Feb, [facility] [address] [id number] [place] [address] Feb, [facility] [address] [id number] [place] [address] Feb, [facility] [address] [id number] [place] [address] Feb, [facility] [address] [id number] [place] [address] Jan, [facility] [address] [id number] [place] [address] Jan, [facility] [address] [id number] [place] [address] Jan, [facility] [address] [id number] [place] [address] 18 Jan, 2012 [facility] [address] [id number] [place] [address] 18 Jan, 2013 [facility] [address] [id number] [place] [address] 18 Jan, 2013 [facility] [address] [id number] [place] [address] 18 Jan, 2013 [facility] [address] [id number] [place] [address] 17 Jan, 2013 [facility] [address] [id number] [place] [address] 17 Jan, 2013 [facility] [address] [id number] [place] [address] 2013 [facility] [address] [id number] [place] [address] 2013 [facility] [address] [id number] [place] [address] 04 Jan, 2013 [facility] [address] [id number] [place] [address] 04 Jan, 2013 [facility] [address] [id number] [place] [address] 20 Dec, 2012 [facility] [address] [id number] [place] [address] 20 Dec, 2012 [facility] [address] [id number] [place] [address] 20 Dec, 2012 [facility] [address] [id number] [place] [address] 20 Dec, 2012 [facility] [address] [id number] [place] [address] 15 Dec, 2012 [facility] [address] [id number] [place] [address] 15 Dec, 2012 [facility] [address] [id number] [place] [address] Nov, [facility] [id number] [place] [address] Nov, [facility] [id number] [place] [address] Nov, [facility] [id number] [place] [address] Nov, [facility] [id number] [place] [address] Nov, [facility] [id number] [place] [address] Nov, [facility] [id number] [place] [address] Oct, [facility] [address] [address] Oct, [facility] [id number] [place] [address] Oct, [facility] [id number] [place] [address] Oct, [facility] [id number] [place] [address] Oct, [facility] [id number] [place] [address] 18 Oct, 2012 [facility] [address] [address] 13 Oct, 2012 IMMUNIZATIONS No Known Immunizations SOCIAL HISTORY Never Assessed REASON FOR VISIT PLAN OF CARE VITAL SIGNS Height 59 in 2013-06-12 Weight 125.19 lbs 2013-06-12 Heart Rate 88 bpm 2013-06-12 Respiratory Rate 20 2013-06-12 Blood pressure systolic 110 mmHg 2013-06-12 Blood pressure diastolic 70 mmHg 2013-06-12 MEDICATIONS Unknown Medications RESULTS No Results PROCEDURES Procedure Date Ordered Result Body Site URINE TEST June 12, 2013 INSTRUCTIONS MEDICATIONS ADMINISTERED No Known Medications [...]
[2019-06-25] MEDS ORDERED: fentaNYL 2 mcg/ml BUPIVA 0.125 100 ML ONE (21:34)
--- OUTSIDE RECORDS SUMMARY | 2019-06-25 21:38 | XMS REPORT | Continuity of Care Document ---
Demographics x Preferred Language Unknown Marital Status Unknown Roman Catholic Affiliation Unknown Race Unknown Ethnic Group Unknown Author Organization Unknown Address Unknown Phone Unavailable Allergies Active Description Code Type Severity Reaction Onset Reported/Identified Relationship to Patient Clinical Status Yes No Known Drug Allergies 28088980 ND N/A N/A Confirmed or Verified Yes No Known Drug Allergies [id number] Drug Allergy Unknown N/A 09/02/2018 Medications There is no data. Problems Date Dx Coded Attending Type Code Diagnosis Diagnosed By 11/02/2012 626.0 AMEN ORRHEA 11/02/2012 V72.42 PRE GNANCY TEST POSITIVE RESULT 11/02/2012 626.0 AMEN ORRHEA 11/02/2012 V72.42 PRE GNANCY TEST POSITIVE RESULT 11/02/2012 CHIN DO LEONARD K 626.0 AMENORRHEA 11/02/2012 CHIN DO LEONARD K V72.42 TEST POSITIVE RESULT 11/02/2012 MANUEL LÓPEZ JERRI A 626.0 AMENORRHEA 11/02/2012 MANUEL LÓPEZ JERRI A V72.42 TEST POSITIVE RESULT 11/02/2012 CHIN DO LEONARD K 626.0 AMENORRHEA 11/02/2012 CHIN DO LEONARD K V72.42 TEST POSITIVE RESULT 11/02/2012 CHIN DO LEONARD K 626.0 AMENORRHEA 11/02/2012 CHIN DO LEONARD K V72.42 TEST POSITIVE RESULT 11/02/2012 GENARO JURADO MD N 626 .0 AMENORRHEA 11/02/2012 GENARO JURADO MD V72 .42 TEST POSITIVE RESULT 11/02/2012 MANUEL LÓPEZ JERRI A 626.0 AMENORRHEA 11/02/2012 MANUEL LÓPEZ JERRI A V72.42 TEST POSITIVE RESULT 11/02/2012 GENARO JURADO MD 626 .0 AMENORRHEA 11/02/2012 GENARO JURADO MD V72 .42 TEST POSITIVE RESULT 11/02/2012 CHIN DO LEONARD K 626.0 AMENORRHEA 11/02/2012 LORAINE CHIN DOA K V72.42 TEST POSITIVE RESULT 11/02/2012 GENARO JURADO MD N 626 .0 AMENORRHEA 11/02/2012 GENARO JURADO MD N V72 .42 TEST POSITIVE RESULT 11/02/2012 [facility] [place] A 62 6.0 AMENORRHEA 11/02/2012 [facility] A V72.42 TEST POSITIVE RESULT 11/02/2012 GENARO JURADO MD N 626 .0 AMENORRHEA 11/02/2012 GENARO JURADO MD N V72 .42 TEST POSITIVE RESULT 11/02/2012 GENARO JURADO MD N 626 .0 AMENORRHEA 11/02/2012 GENARO JURADO MD V72 .42 TEST POSITIVE RESULT 11/02/2012 GENARO JURADO MD N 626 .0 AMENORRHEA 11/02/2012 GENARO JURADO MD N V72 .42 TEST POSITIVE RESULT 11/02/2012 [facility] [place] A 62 6.0 AMENORRHEA 11/02/2012 [facility] [place] A V72.42 TEST POSITIVE RESULT 11/02/2012 GENARO JURADO MD N 626 .0 AMENORRHEA 11/02/2012 GENARO JURADO MD N V72 .42 TEST POSITIVE RESULT 11/02/2012 GENARO JURADO MD N 626 .0 AMENORRHEA 11/02/2012 GENARO JURADO MD N V72 .42 TEST POSITIVE RESULT 11/02/2012 [facility] [place] A 62 6.0 AMENORRHEA 11/02/2012 [facility] [place] A V72.42 TEST POSITIVE RESULT 11/02/2012 GENARO JURADO MD N 626 .0 AMENORRHEA 11/02/2012 GENARO JURADO MD V72 .42 TEST POSITIVE RESULT 11/02/2012 GENARO JURADO MD N 626 .0 AMENORRHEA 11/02/2012 GENARO JURADO MD N V72 .42 TEST POSITIVE RESULT 11/02/2012 JOSE ALEJANDRO TOWNSEND APRN A 62 6.0 AMENORRHEA 11/02/2012 JOSE ALEJANDRO TOWNSEND APRN A V72.42 TEST POSITIVE RESULT 11/02/2012 NICK TOWNSEND APRNIDI A 62 6.0 AMENORRHEA 11/02/2012 JOSE ALEJANDRO TOWNSEND APRN V72.42 TEST POSITIVE RESULT 11/02/2012 CHIN LEONARD PICHARDO K 626.0 AMENORRHEA 11/02/2012 LEONARD CHIN DO V72.42 TEST POSITIVE RESULT 11/02/2012 ANGIE DDS, ADDISON B 626 .0 AMENORRHEA 11/02/2012 [facility] DDS, ADDISON B V72 .42 TEST POSITIVE RESULT 11/07/2012 V23.83 SUP ERVISION OF HIGH-RISK WITH YOUNG PRIMIGRAVIDA 11/07/2012 LEONARD CHIN DO V23.83 SUPERVISION OF HIGH-RISK WITH YOUNG PRIMIGRAVIDA 11/07/2012 JERRI JACKSON APRN V23.83 SUPERVISION OF HIGH-RISK WITH YOUNG PRIMIGRA ESVIN 11/07/2012 LEONARD CHIN DO V23.83 SUPERVISION OF HIGH-RISK WITH YOUNG PRIMIGRAVIDA 11/07/2012 LEONARD CHIN DO V23.83 SUPERVISION OF HIGH-RISK WITH YOUNG PRIMIGRAVIDA 11/07/2012 GENARO JURADO MD V23 .83 SUPERVISION OF HIGH-RISK WITH YOUNG PRIMIGRAVIDA 11/07/2012 JERRI JACKSON APRN V23.83 SUPERVISION OF HIGH-RISK WITH YOUNG PRIMIGRA ESVIN 11/07/2012 GENARO JURADO MD V23 .83 SUPERVISION OF HIGH-RISK WITH YOUNG PRIMIGRAVIDA 11/07/2012 LEONARD CHIN DO V23.83 SUPERVISION OF HIGH-RISK WITH YOUNG PRIMIGRAVIDA 11/07/2012 GENARO JURADO MD V23 .83 SUPERVISION OF HIGH-RISK WITH YOUNG PRIMIGRAVIDA [facility]/07/2012 [facility] SUPERVISION OF HIGH-RISK WITH YOUNG PRIMIGRA ESVIN 11/07/2012 GENARO JURADO MD V23 .83 SUPERVISION OF HIGH-RISK WITH YOUNG PRIMIGRAVIDA 11/07/2012 GENARO JURADO MD V23 .83 SUPERVISION OF HIGH-RISK WITH YOUNG PRIMIGRAVIDA 11/07/2012 GENARO JURADO MD V23 .83 SUPERVISION OF HIGH-RISK WITH YOUNG PRIMIGRAVIDA 11/07/2012 [facility] SUPERVISION OF HIGH-RISK WITH YOUNG PRIMIGRA ESVIN 11/07/2012 GENARO JURADO MD V23 .83 SUPERVISION OF HIGH-RISK WITH YOUNG PRIMIGRAVIDA 11/07/2012 GENARO JURADO MD V23 .83 SUPERVISION OF HIGH-RISK WITH YOUNG PRIMIGRAVIDA 11/07/2012 [facility] SUPERVISION OF HIGH-RISK WITH YOUNG PRIMIGRA ESVIN 11/07/2012 GENARO JURADO MD V23 .83 SUPERVISION OF HIGH-RISK WITH YOUNG PRIMIGRAVIDA 11/07/2012 GENARO JURADO MD V23 .83 SUPERVISION OF HIGH-RISK WITH YOUNG PRIMIGRAVIDA 11/07/2012 JOSE ALEJANDRO TOWNSEND APRN V23.83 SUPERVISION OF HIGH-RISK WITH YOUNG PRIMIGRA ESVIN 11/07/2012 JOSE ALEJANDRO TOWNSEND APRN V23.83 SUPERVISION OF HIGH-RISK WITH YOUNG PRIMIGRA ESVIN 11/07/2012 LEONARD CHIN DO V23.83 SUPERVISION OF HIGH-RISK WITH YOUNG PRIMIGRAVIDA 11/07/2012 ADDISON ADAMS DDS V23 .83 SUPERVISION OF HIGH-RISK WITH YOUNG PRIMIGRAVIDA 11/14/2012 LEONARD CHIN DO V23.9 , HIGH-RISK (UNSPEC) 11/14/2012 JERRI JACKSON APRN V23.9 , HIGH-RISK (UNSPEC) 11/14/2012 LEONARD CHIN DO V23.9 , HIGH-RISK (UNSPEC) 11/14/2012 LEONARD CHIN DO V23.9 , HIGH-RISK (UNSPEC) 11/14/2012 GENARO JURADO MD V23 .9 , HIGH-RISK (UNSPEC) 11/14/2012 JERRI JACKSON APRN V23.9 , HIGH-RISK (UNSPEC) 11/14/2012 GENARO JURADO MD V23 .9 , HIGH-RISK (UNSPEC) 11/14/2012 LEONADR CHIN DO V23.9 , HIGH-RISK (UNSPEC) 11/14/2012 GENARO JURADO MD V23 .9 , HIGH-RISK (UNSPEC) 11/14/2012 [facility] [place] A V2 3.9 , HIGH-RISK (UNSPEC) 11/14/2012 GENARO JURADO MD V23 .9 , HIGH-RISK (UNSPEC) 11/14/2012 GENARO JURADO MD N V23 .9 , HIGH-RISK (UNSPEC) 11/14/2012 GENARO JURADO MD V23 .9 , HIGH-RISK (UNSPEC) 11/14/2012 [facility] [place] A V2 3.9 , HIGH-RISK (UNSPEC) 11/14/2012 GENARO JURADO MD V23 .9 , HIGH-RISK (UNSPEC) 11/14/2012 GENARO JURADO MD V23 .9 , HIGH-RISK (UNSPEC) 11/14/2012 [facility] A V2 3.9 , HIGH-RISK (UNSPEC) 11/14/2012 GENARO JURADO MD V23 .9 , HIGH-RISK (UNSPEC) 11/14/2012 GENARO JURADO MD V23 .9 , HIGH-RISK (UNSPEC) 11/14/2012 CARYMAXIMILIANO LÓPEZ JOSE ALEJANDRO A V2 3.9 , HIGH-RISK (UNSPEC) 11/14/2012 CARY LÓPEZ JOSE ALEJANDRO A V2 3.9 , HIGH-RISK (UNSPEC) 11/14/2012 LEONARD CHIN DO K V23.9 , HIGH-RISK (UNSPEC) 11/14/2012 ANGIE DDS, ADDISON B V23 .9 , HIGH-RISK (UNSPEC) 11/22/2012 LEONARD CHIN DO 530.81 GERD 11/22/2012 LEONARD CHIN DO 655.03 ABNORMAL TETRA SCREEN (NTD) 11/22/2012 LEONARD CHIN DO 692.9 CONTACT DERMATITIS AND OTHER ECZEMA UNSPECIFIED CAUSE 11/22/2012 LEONARD CHIN DO 530.81 GERD 11/22/2012 LEONARD CHIN DO 655.03 ABNORMAL TETRA SCREEN (NTD) 11/22/2012 LEONARD CHIN DO 692.9 CONTACT DERMATITIS AND OTHER ECZEMA UNSPECIFIED CAUSE 11/22/2012 GENARO JURADO MD 530 .81 GERD 11/22/2012 RHIANNON MD, GENARO N 655 .03 ABNORMAL TETRA SCREEN (NTD) 11/22/2012 GENARO JURADO MD N 692 .9 CONTACT DERMATITIS AND OTHER ECZEMA UNSPECIFIED CAUSE 11/22/2012 JERRI JACKSON APRN A 530.81 GERD 11/22/2012 JERRI JACKSON APRN A 655.03 ABNORMAL TETRA SCREEN (NTD) 11/22/2012 JERRI JACKSON APRN A 692.9 CONTACT DERMATITIS AND OTHER ECZEMA UNSPECIFIED CAUSE 11/22/2012 GENARO JURADO MD N 530 .81 GERD 11/22/2012 GENARO JURADO MD 655 .03 ABNORMAL TETRA SCREEN (NTD) 11/22/2012 GENARO JURADO MD 692 .9 CONTACT DERMATITIS AND OTHER ECZEMA UNSPECIFIED CAUSE 11/22/2012 LEONARD CHIN DO 530.81 GERD 11/22/2012 CHIN LEONARD K 655.03 ABNORMAL TETRA SCREEN (NTD) 11/22/2012 LEONARD CHIN DO K 692.9 CONTACT DERMATITIS AND OTHER ECZEMA UNSPECIFIED CAUSE 11/22/2012 GENARO JURADO MD 530 .81 GERD 11/22/2012 GENARO JURADO MD 655 .03 ABNORMAL TETRA SCREEN (NTD) 11/22/2012 GENARO JURADO MD 692 .9 CONTACT DERMATITIS AND OTHER ECZEMA UNSPECIFIED CAUSE 11/22/2012 [facility] [place] A 530.81 GERD 11/22/2012 [facility] [place] A 655.03 ABNORMAL TETRA SCREEN (NTD) 11/22/2012 [facility] [place] A 69 2.9 CONTACT DERMATITIS AND OTHER ECZEMA UNSPECIFIED CAUSE 11/22/2012 GENARO JURADO MD 530 .81 GERD 11/22/2012 GENARO JURADO MD 655 .03 ABNORMAL TETRA SCREEN (NTD) 11/22/2012 GENARO JURADO MD N 692 .9 CONTACT DERMATITIS AND OTHER ECZEMA UNSPECIFIED CAUSE 11/22/2012 GENARO JURADO MD N 530 .81 GERD 11/22/2012 GENARO JURADO MD N 655 .03 ABNORMAL TETRA SCREEN (NTD) 11/22/2012 GENARO JURADO MD N 692 .9 CONTACT DERMATITIS AND OTHER ECZEMA UNSPECIFIED CAUSE 11/22/2012 GENARO JURADO MD 530 .81 GERD 11/22/2012 GENARO JURADO MD N 655 .03 ABNORMAL TETRA SCREEN (NTD) 11/22/2012 GENARO JURADO MD N 692 .9 CONTACT DERMATITIS AND OTHER ECZEMA UNSPECIFIED CAUSE 11/22/2012 [facility] 530.81 [facility] 11/22/2012 [facility] A 655.03 ABNORMAL TETRA SCREEN (NTD) 11/22/2012 [facility] A 69 2.9 CONTACT DERMATITIS AND OTHER ECZEMA UNSPECIFIED CAUSE 11/22/2012 GENARO JURADO MD N 530 .81 GERD 11/22/2012 GENARO JURADO MD N 655 .03 ABNORMAL TETRA SCREEN (NTD) 11/22/2012 GENARO JURADO MD N 692 .9 CONTACT DERMATITIS AND OTHER ECZEMA UNSPECIFIED CAUSE 11/22/2012 GENARO JURADO MD N 530 .81 GERD 11/22/2012 GENARO JURADO MD N 655 .03 ABNORMAL TETRA SCREEN (NTD) 11/22/2012 GENARO JURADO MD N 692 .9 CONTACT DERMATITIS AND OTHER ECZEMA UNSPECIFIED CAUSE 11/22/2012 [facility] 530.81 GERD 11/22/2012 [facility] A 655.03 ABNORMAL TETRA SCREEN (NTD) 11/22/2012 [facility] A 69 2.9 CONTACT DERMATITIS AND OTHER ECZEMA UNSPECIFIED CAUSE 11/22/2012 GENARO JURADO MD N 530 .81 GERD 11/22/2012 GENARO JURADO MD N 655 .03 ABNORMAL TETRA SCREEN (NTD) 11/22/2012 GENARO JURADO MD N 692 .9 CONTACT DERMATITIS AND OTHER ECZEMA UNSPECIFIED CAUSE 11/22/2012 GENARO JURADO MD N 530 .81 GERD 11/22/2012 GENARO JURADO MD N 655 .03 ABNORMAL TETRA SCREEN (NTD) 11/22/2012 GENARO JURADO MD N 692 .9 CONTACT DERMATITIS AND OTHER ECZEMA UNSPECIFIED CAUSE 11/22/2012 JOSE ALEJANDRO TOWNSEND APRN A 530.81 GERD 11/22/2012 JOSE ALEJANDRO TOWNSEND APRN A 655.03 ABNORMAL TETRA SCREEN (NTD) 11/22/2012 JOSE ALEJANDRO TOWNSEND APRN A 69 2.9 CONTACT DERMATITIS AND OTHER ECZEMA UNSPECIFIED CAUSE 11/22/2012 JOSE ALEJANDRO TOWNSEND APRN A 530.81 GERD 11/22/2012 NICK TOWNSEND APRNIDI A 655.03 ABNORMAL TETRA SCREEN (NTD) 11/22/2012 JOSE ALEJANDRO TOWNSEND APRN A 69 2.9 CONTACT DERMATITIS AND OTHER ECZEMA UNSPECIFIED CAUSE 11/22/2012 CHIN DO, LEONARD K 530.81 GERD 11/22/2012 CHIN DO, LEONARD K 655.03 ABNORMAL TETRA SCREEN (NTD) 11/22/2012 CHIN DO, LEONARD K 692.9 CONTACT DERMATITIS AND OTHER ECZEMA UNSPECIFIED CAUSE 11/22/2012 ANGIE DDS, ADDISON B 530 .81 GERD 11/22/2012 ANGIE DDS, ADDISON B 655 .03 ABNORMAL TETRA SCREEN (NTD) 11/22/2012 ANGIE DDS, ADDISON B 692 .9 CONTACT DERMATITIS AND OTHER ECZEMA UNSPECIFIED CAUSE 2013 RHIANNON POLANCO, GENARO N V04 .81 FLU SHOT 2013 JERRI JACKSON APRN A V04.81 FLU SHOT 2013 RHIANNON POLANCO, GENARO N V04 .81 FLU SHOT 2013 CHIN LEONARD K V04.81 FLU SHOT 2013 RHIANNON POLANCO, GENARO N V04 .81 FLU SHOT 2013 [facility] [place] A V04.81 FLU SHOT 2013 RHIANNON POLANCO, GENARO N V04 .81 FLU SHOT 2013 RHIANNON POLANCO, GENARO N V04 .81 FLU SHOT 2013 RHIANNON POLANCO, GENARO N V04 .81 FLU SHOT 2013 [facility] [place] A V04.81 FLU SHOT 2013 RHIANNON POLANCO, GENARO N V04 .81 FLU SHOT 2013 RHIANNON POLANCO, GENARO N V04 .81 FLU SHOT 2013 [facility] [place] A V04.81 FLU SHOT 2013 RHIANNON POLANCO, GENARO N V04 .81 FLU SHOT 2013 RHIANNON POLANCO, GENARO N V04 .81 FLU SHOT 2013 NICK TOWNSEND APRNIDI A V04.81 FLU SHOT 2013 JOSE ALEJANDRO TOWNSEND APRN A V04.81 FLU SHOT 2013 CHIN LEONARD PICHARDO K V04.81 FLU SHOT 2013 ADDISON ADAMS DDS V04 .81 FLU SHOT 01/23/2013 YASMANY JACKSON APRNYL A 477.9 RHINITIS 01/23/2013 JERRI JACKSON APRN A V22.2 INCIDENTAL 01/23/2013 GENARO JURADO MD N 477 .9 RHINITIS 01/23/2013 RHIANNON POLANCO, GENARO N V22 .2 INCIDENTAL 01/23/2013 LEONARD CHIN DO K 477.9 RHINITIS 01/23/2013 CHIN , LEONARD K V22.2 INCIDENTAL 01/23/2013 GENARO JURADO MD N 477 .9 RHINITIS 01/23/2013 RHIANNON POLANCO, GENARO N V22 .2 INCIDENTAL 01/23/2013 [facility] Mcgrath 47 7.9 RHINITIS 01/23/2013 [facility] Mcgrath V2 2.2 INCIDENTAL 01/23/2013 RHIANNON POLANCO GENARO N 477 .9 RHINITIS 01/23/2013 RHIANNON POLANCO, GENARO N V22 .2 INCIDENTAL 01/23/2013 GENARO JURADO MD N 477 .9 RHINITIS 01/23/2013 RHIANNON POLANCO GENARO N V22 .2 INCIDENTAL 01/23/2013 RHIANNON POLANCO GENARO N 477 .9 RHINITIS 01/23/2013 RHIANNON POLANCO GENARO N V22 .2 INCIDENTAL 01/23/2013 [facility] Mcgrath 47 7.9 RHINITIS 01/23/2013 [facility] Mcgrath V2 2.2 INCIDENTAL 01/23/2013 RHIANNON POLANCO GENARO N 477 .9 RHINITIS 01/23/2013 RHIANNON POLANCO GENARO N V22 .2 INCIDENTAL 01/23/2013 GENARO JURADO MD N 477 .9 RHINITIS 01/23/2013 RHIANNON POLANCO, GENARO N V22 .2 INCIDENTAL 01/23/2013 [facility] [place] Mcgrath 47 7.9 RHINITIS 01/23/2013 [facility] [place] Mcgrath V2 2.2 INCIDENTAL 01/23/2013 GENARO JURADO MD N 477 .9 RHINITIS 01/23/2013 GENARO JURADO MD N V22 .2 INCIDENTAL 01/23/2013 GENARO JURADO MD 477 .9 RHINITIS 01/23/2013 GENARO JURADO MD V22 .2 INCIDENTAL 01/23/2013 CARY 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, JOSE ALEJANDRO A 47 7.9 RHINITIS 01/23/2013 CARY 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, JOSE ALEJANDRO A V2 2.2 INCIDENTAL 01/23/2013 CARY 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, JOSE ALEJANDRO A 47 7.9 RHINITIS 01/23/2013 CARY 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, JOSE ALEJANDRO A V2 2.2 INCIDENTAL 01/23/2013 CHIN DO, LEONARD K 477.9 RHINITIS 01/23/2013 CHIN DO LEONARD K V22.2 INCIDENTAL 01/23/2013 ANGIE DDS, ADDISON B 477 .9 RHINITIS 01/23/2013 ANGIE DDS, ADDISON B V22 .2 INCIDENTAL 01/28/2013 LORAINE CHIN DOA K 296.90 MOOD DISORDER NOS 01/28/2013 GENARO JURADO MD N 296 .90 MOOD DISORDER NOS 01/28/2013 [facility] A 296.90 MOOD DISORDER NOS 01/28/2013 GENARO JURADO MD N 296 .90 MOOD DISORDER NOS 01/28/2013 GENARO JURADO MD N 296 .90 MOOD DISORDER NOS 01/28/2013 GENARO JURADO MD N 296 .90 MOOD DISORDER NOS 01/28/2013 [facility] A 296.90 MOOD DISORDER NOS 01/28/2013 GENARO JURADO MD N 296 .90 MOOD DISORDER NOS 01/28/2013 GENARO JURADO MD N 296 .90 MOOD DISORDER NOS 01/28/2013 [facility] A 296.90 MOOD DISORDER NOS 01/28/2013 GENARO JURADO MD N 296 .90 MOOD DISORDER NOS 01/28/2013 GENARO JURADO MD N 296 .90 MOOD DISORDER NOS 01/28/2013 CARY APRN, JOSE ALEJANDRO A 296.90 MOOD DISORDER NOS 01/28/2013 CARY 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, JOSE ALEJANDRO A 296.90 MOOD DISORDER NOS 01/28/2013 LEONARD CHIN DO K 296.90 MOOD DISORDER NOS 01/28/2013 [facility] DDS, ADDISON B 296 .90 MOOD DISORDER NOS 02/05/2013 GENARO JURADO MD N 296 .90 MOOD DISORDER NOS 02/05/2013 LEONARD CHIN DO K 296.90 MOOD DISORDER NOS 02/05/2013 GENARO JURADO MD N 296 .90 MOOD DISORDER NOS 02/05/2013 [facility] A 296.90 MOOD DISORDER NOS 02/05/2013 GENARO JURADO MD N 296 .90 MOOD DISORDER NOS 02/05/2013 GENARO JURADO MD N 296 .90 MOOD DISORDER NOS 02/05/2013 GENARO JURADO MD N 296 .90 MOOD DISORDER NOS 02/05/2013 [facility] A 296.90 MOOD DISORDER NOS 02/05/2013 GENARO JURADO MD N 296 .90 MOOD DISORDER NOS 02/05/2013 GENARO JURADO MD N 296 .90 MOOD DISORDER NOS 02/05/2013 [facility] A 296.90 MOOD DISORDER NOS 02/05/2013 GENARO JURADO MD N 296 .90 MOOD DISORDER NOS 02/05/2013 GENARO JURADO MD N 296 .90 MOOD DISORDER NOS 02/05/2013 CARY APRN, JOSE ALEJANDRO A 296.90 MOOD DISORDER NOS 02/05/2013 CARYMAXIMILIANO LÓPEZ JOSE ALEJANDRO A 296.90 MOOD DISORDER NOS 02/05/2013 LEONARD CHIN DO K 296.90 MOOD DISORDER NOS 02/05/2013 [facility] DDS, ADDISON B 296 .90 MOOD DISORDER NOS 02/15/2013 GENARO JURADO MD Ot 599 .0 URIN TRACT INFECTION NOS 02/15/2013 GENARO JURADO MD Ot 646.63 INFECTION-ANTEPARTUM 02/27/2013 GENARO JURADO MD Ot 276.51 DEHYDRATION 02/27/2013 GENARO JURADO MD Ot 646.83 PREG COMPL NEC-ANTEPART 03/06/2013 GENARO JURADO MD 649 .60 UTER INE SIZE DATE DISCREPANCY -SGA 03/06/2013 GENARO JURADO MD V06 .1 TD[facility] DX [facility]/06[facility] 649.60 UTER INE SIZE DATE DISCREPANCY -SGA 03/06/2013 [facility] V0 6.1 TDAP DX 03/06/2013 GENARO JURADO MD N 649 .60 UTER INE SIZE DATE DISCREPANCY -SGA 03/06/2013 GENARO JURADO MD N V06 .1 TDAP DX 03/06/2013 GENARO JURADO MD N 649 .60 UTER INE SIZE DATE DISCREPANCY -SGA 03/06/2013 GENARO JURADO MD N V06 .1 TDAP DX 03/06/2013 GENARO JURADO MD N 649 .60 UTER INE SIZE DATE DISCREPANCY -SGA 03/06/2013 GENARO JURADO MD V06 .1 TDAP DX 03/06/2013 [facility] Mcgrath 649.60 UTER INE SIZE DATE DISCREPANCY -SGA 03/06/2013 [facility] Mcgrath V0 6.1 TDAP DX 03/06/2013 GENARO JURADO MD N 649 .60 UTER INE SIZE DATE DISCREPANCY -SGA 03/06/2013 GENARO JURADO MD V06 .1 TDAP DX 03/06/2013 GENARO JURADO MD N 649 .60 UTER INE SIZE DATE DISCREPANCY -SGA 03/06/2013 GENARO JURADO MD V06 .1 TDAP DX 03/06/2013 [facility] Mcgrath 649.60 UTER INE SIZE DATE DISCREPANCY -SGA 03/06/2013 [facility] Mcgrath V0 6.1 TDAP DX 03/06/2013 GENARO JURADO MD N 649 .60 UTER INE SIZE DATE DISCREPANCY -SGA 03/06/2013 GENARO JURADO MD V06 .1 TDAP DX 03/06/2013 GENARO JURADO MD N 649 .60 UTER INE SIZE DATE DISCREPANCY -SGA 03/06/2013 GENARO JURADO MD V06 .1 TDAP DX 03/06/2013 CARY 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, JOSE ALEJANDRO A 649.60 UTER INE SIZE DATE DISCREPANCY -SGA 03/06/2013 CARY 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, JOSE ALEJANDRO A V0 6.1 TDAP DX 03/06/2013 CARY 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, JOSE ALEJANDRO A 649.60 UTER INE SIZE DATE DISCREPANCY -SGA 03/06/2013 CARY 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, JOSE ALEJANDRO A V0 6.1 TDAP DX 03/06/2013 LEONARD CHIN DO 649.60 UTER INE SIZE DATE DISCREPANCY -SGA 03/06/2013 CHIN LEONARD PICHARDO V06.1 TDAP DX 03/06/2013 ANGIE DDADDISON Celaya 649 .60 UTER INE SIZE DATE DISCREPANCY -SGA 03/06/2013 ADDISON ADAMS DDS V06 .1 TDAP DX 03/24/2013 GENARO JURDAO MD Ot 648.73 BONE DISORDER-ANTEPARTUM 03/24/2013 GENARO JURADO MD Ot 724 .1 PAIN IN THORACIC SPINE 04/04/2013 GENARO JURADO MD Ot 626 .7 POSTCOITAL BLEEDING 04/04/2013 GENARO JURADO MD Ot 644.13 THREAT LABOR NEC-ANTEPAR 04/04/2013 GENARO JURADO MD Ot 646.83 PREG COMPL NEC-ANTEPART 04/25/2013 GENARO JURADO MD Ot 656.51 POOR GROWTH-DELIV 04/25/2013 GENARO JURADO MD Ot 660.41 SHOULDER DYSTOCIA-DELIV 04/25/2013 GENARO JURADO MD Ot 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 04/25/2013 GENARO JURADO MD Ot 664.11 DEL W 2 DEG LACERAT-DEL 04/25/2013 GENARO JURADO MD Ot V03.82 PROPHYLACTIC VACC AGAINST STREPTOCOCCUS 04/25/2013 GENARO JURADO MD Ot V27 .0 DELIVER-SINGLE LIVEBORN 06/02/2013 GEORGINA DIAZ MD Ot 079.99 VIRAL INFECTION NOS 06/02/2013 GEORGINA DIAZ MD Ot 288.60 LEUKOCYTOSIS, UNSPECIFIED 06/02/2013 GEORGINA DIAZ MD Ot 729.5 PAIN IN LIMB 06/02/2013 GEORGINA DIAZ MD Ot 780.4 DIZZINESS AND GIDDINESS 06/02/2013 GEORGINA DIAZ MD Ot 780.60 FEVER, UNSPECIFIED 06/12/2013 CARY 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, JOSE ALEJANDRO A 564.00 UNSPECIFIED CONSTIPATION 06/12/2013 CARYNICK Pulido APRNIDI A V2 4.2 F/U, ROUTINE 06/12/2013 JOSE ALEJANDRO TOWNSEND APRN V25.01 CONTRACEPTION - ORAL CONTRACEPTION 06/12/2013 LEONARD CHIN DO 564.00 UNSPECIFIED CONSTIPATION 06/12/2013 LEONARD CHIN DO V24.2 F/U, ROUTINE 06/12/2013 LEONARD CHIN DO V25.01 CONTRACEPTION - ORAL CONTRACEPTION 06/12/2013 ANGIE DDS, ADDISON B 564 .00 UNSPECIFIED CONSTIPATION 06/12/2013 ANGIE DDS, ADDISON B V24 .2 F/U, ROUTINE 06/12/2013 ANGIE DDS, ADDISON B V25 .01 CONTRACEPTION - ORAL CONTRACEPTION 07/08/2013 GENARO JURADO MD Ot 656.53 POOR GRTH-ANTEPART 09/19/2013 [facility] NATHALYS, ADDISON Brown V72 .2 DENTAL EXAMINATION 11/29/2013 JACY CORREIA 788.41 URINARY [...] Ot E927.0 OVEREXERTION FROM SUDDEN STRENUOUS MOVEM 07/12/2015 LEONARD CHIN DO Ot 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 07/12/2015 LEONARD CHIN DO Ot V23.83 SUPRV HIGH-RISK PREG-YOUNG PRIMIGRAVIDA 07/12/2015 GENARO JURADO MD Ot 649.63 UTERINE SIZE DATE DISCREPANCY, ANTEPARTU 07/12/2015 GENARO JURADO MD Ot 656.53 POOR GRTH-ANTEPART 07/12/2015 JOSE ALEJANDRO TOWNSEND APRN Ot 646.83 PREG COMPL NEC-ANTEPART 07/12/2015 JOSE ALEJANDRO TOWNSEND 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 Ot 789.00 ABDOMINAL PAIN, UNSPECIFIED SITE 07/12/2015 Ot 656.53 POO R GRTH- ANTEPART 07/12/2015 ROSA ESTEVEZ 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 Ot K58 .9 IRRITABLE BOWEL SYNDROME WITHOUT DIARRHE 07/12/2015 ROSA ESTEVEZ 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 Ot R10.84 GENERALIZED ABDOMINAL PAIN 07/13/2015 ROSA ESTEVEZ 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 Ot K58 .9 IRRITABLE BOWEL SYNDROME WITHOUT DIARRHE 07/13/2015 ROSA ESTEVEZ 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 Ot R10.84 GENERALIZED ABDOMINAL PAIN 07/14/2015 ROSA ESTEVEZ 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 Ot K58 .9 IRRITABLE BOWEL SYNDROME WITHOUT DIARRHE 07/14/2015 ROSA ESTEVEZ 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 Ot R10.84 GENERALIZED ABDOMINAL PAIN 07/14/2015 LEONARD CHIN DO Ot 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 07/14/2015 LEONARD CHIN DO Ot V23.83 SUPRV HIGH-RISK PREG-YOUNG PRIMIGRAVIDA 07/14/2015 RHIANNON POLANCO, GENARO Pulido Ot 649.63 UTERINE SIZE DATE DISCREPANCY, ANTEPARTU 07/14/2015 GENARO JURADO MD Ot 656.53 POOR GRTH-ANTEPART 07/14/2015 JOSE ALEJANDRO TOWNSEND 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 Ot 646.83 PREG COMPL NEC-ANTEPART 07/14/2015 JOSE ALEJANDRO TOWNSEND 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 Ot 789.00 ABDOMINAL PAIN, UNSPECIFIED SITE 07/14/2015 Ot 656.53 POO R GRTH- ANTEPART 08/08/2015 LEONARD CHIN DO Ot 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 08/08/2015 LEONARD CHIN DO Ot V23.83 SUPRV HIGH-RISK PREG-YOUNG PRIMIGRAVIDA 08/08/2015 GENARO JURADO MD N Ot 649.63 UTERINE SIZE DATE DISCREPANCY, ANTEPARTU 08/08/2015 GENARO JURADO MD Ot 656.53 POOR GRTH-ANTEPART 08/08/2015 JOSE ALEJANDRO TOWNSEND 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 Ot 646.83 PREG COMPL NEC-ANTEPART 08/08/2015 JOSE ALEJANDRO TOWNSEND 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 Ot 789.00 ABDOMINAL PAIN, UNSPECIFIED SITE 08/08/2015 Ot 656.53 POO R GRTH- ANTEPART 08/08/2015 LEONARD CHIN DO Ot 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 08/08/2015 LORAINE CHIN DOA K Ot V23.83 SUPRV HIGH-RISK PREG-YOUNG PRIMIGRAVIDA 08/08/2015 GENARO JURADO MD Ot 649.63 UTERINE SIZE DATE DISCREPANCY, ANTEPARTU 08/08/2015 GENARO JURADO MD Ot 656.53 POOR GRTH-ANTEPART 08/08/2015 CARY JOSE ALEJANDRO A 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 Ot 646.83 PREG COMPL NEC-ANTEPART 08/08/2015 CARYNICKJOSE ALEJANDRO A 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 Ot 789.00 ABDOMINAL PAIN, UNSPECIFIED SITE 08/08/2015 Ot 656.53 POO R GRTH- ANTEPART 08/08/2015 NEVILLE FLOWERS Ot K58.0 IRRITABLE BOWEL SYNDROME WITH DIARRHEA 08/08/2015 NEVILLE FLOWERS Ot R11.2 NAUSEA WITH VOMITING, UNSPECIFIED 08/08/2015 LORAINE CHIN DOA Dania Ot 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 08/08/2015 LORAINE CHIN DOA K Ot V23.83 SUPRV HIGH-RISK PREG-YOUNG PRIMIGRAVIDA 08/08/2015 GENARO JURADO MD Ot 649.63 UTERINE SIZE DATE DISCREPANCY, ANTEPARTU 08/08/2015 GENARO JURADO MD Ot 656.53 POOR GRTH-ANTEPART 08/08/2015 JOSE ALEJANDRO TOWNSEND 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 Ot 646.83 PREG COMPL NEC-ANTEPART 08/08/2015 CARY JOSE ALEJANDRO A 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 Ot 789.00 ABDOMINAL PAIN, UNSPECIFIED SITE 08/08/2015 Ot 656.53 POO R GRTH- ANTEPART 08/08/2015 LEONARD CHIN DO Ot 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 08/08/2015 LORAINE CHIN DOA K Ot V23.83 SUPRV HIGH-RISK PREG-YOUNG PRIMIGRAVIDA 08/08/2015 GENARO JURADO MD Ot 649.63 UTERINE SIZE DATE DISCREPANCY, ANTEPARTU 08/08/2015 GENARO JURADO MD Ot 656.53 POOR GRTH-ANTEPART 08/08/2015 NICK TOWNSENDIDI A 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 Ot 646.83 PREG COMPL NEC-ANTEPART 08/08/2015 JOSE ALEJANDRO TOWNSEND RENE Ot 789.00 ABDOMINAL PAIN, UNSPECIFIED SITE 08/08/2015 Ot 656.53 POO R GRTH- ANTEPART 08/10/2015 NEVILLE FLOWERS Ot K58.0 IRRITABLE BOWEL [...] STATIONARY OBJECT 09/23/2015 ROSA ESTEVEZ APRN Ot Y99 .8 OTHER EXTERNAL CAUSE STATUS 09/24/2015 ROSA ESTEVEZ APRN Ot S60.222A CONTUSION OF LEFT HAND, INITIAL ENCOUNTE 09/24/2015 ROSA ESTEVEZ APRN Ot S69.92XA UNSP INJURY OF LEFT WRIST, HAND AND FING 09/24/2015 ROSA ESTEVEZ APRN Ot W22.09XA STRIKING AGAINST OTHER STATIONARY OBJECT 09/24/2015 ROSA ESTEVEZ APRN Ot Y99 .8 OTHER EXTERNAL CAUSE STATUS 10/08/2015 JOE POLANCO, GEROGINA T Ot 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 10/08/2015 GEORGINA DIAZ MD T Ot F41.9 ANXIETY DISORDER, UNSPECIFIED 10/08/2015 GEORGINA DIAZ MD T Ot J30.9 ALLERGIC RHINITIS, UNSPECIFIED 10/09/2015 GEORGINA DIAZ MD T Ot 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 calcium measurement (mass/volume) 9.1 mg/dL 8.5-10.1 Serum or plasma total bilirubin measurement (mass/volu me) 0.2 mg/dL 0.1-1.0 Serum or plasma alkaline phosphatase susi surement (enzymatic activity/volume) 90 U/L 60-350 Serum or plasma aspartate aminotransfera se measurement (enzymatic activity/volume) 15 U/L 5-34 Serum or plasma alanine aminotransferase measurement (enzymatic activity/volume) 14 U/L 0-55 Serum or plasma protein measurement (mass/volume) 7.4 g/dL 6.4-8.2 Serum or plasma albumin measurement (mass/volume) 4.3 g/dL 3.2-4.5 Serum or plasma acetaminophen measuremen t (mass/volume) - 10/15/15 20:40 Serum or plasma acetaminophen measurement (mass/volume ) < ug/mL 10-30 Serum or plasma ethanol measurement (mas s/volume) - 10/15/15 20:40 Serum or plasma ethanol measurement (mass/volume) < mg/dL <10 Urine beta human chorionic gonadotropin (hCG) measurement - 10/15/15 20:42 Urine beta human chorionic gonadotropin (hCG) measurem ent NEGATIVE NEGATIVE Urine drug screening test - 10/15/15 20: 42 Urine acetaminophen detection by screening method NEGATIVE NEGATIVE Urine phencyclidine detection by screening method NEGATIVE NEGATIVE Urine benzodiazepines detection by screening method NEGATIVE NEGATIVE Urine cocaine detection NEGATIVE NEGATI VE Urine amphetamines detection by screening method N EGATIVE NEGATIVE Urine methamphetamine detection by screening method NEGATIVE NEGATIVE Urine cannabinoids detection by screening method N EGATIVE NEGATIVE Urine opiates detection by screening method NEGATI VE NEGATIVE Urine barbiturates detection NEGATIVE N EGATIVE Screening urine tricyclic antidepressants detection NEGATIVE NEGATIVE Urine methadone detection by screening method NEGA TIVE NEGATIVE Complete urinalysis with reflex to cultu re - 10/15/15 20:42 Urine color determination YELLOW NRG Urine clarity determination CLEAR NR G Urine pH measurement by test strip 5 5-9 Specific gravity of urine by test strip 1.025 1.016-1.022 Urine protein assay by test strip, semi-quantitative NEGATIVE NEGATIVE Urine glucose detection by automated test strip NE GATIVE NEGATIVE Erythrocytes detection in urine sediment by light micr oscopy 2+ NEGATIVE Urine ketones detection by automated test strip NE GATIVE NEGATIVE Urine nitrite detection by test strip NEGATIVE NEGATIVE Urine total bilirubin detection by test strip NEGA TIVE NEGATIVE Urine urobilinogen measurement by automated test strip (mass/volume) 1 mg/dL NORMAL Urine leukocyte esterase detection by dipstick NEG ATIVE NEGATIVE Automated urine sediment erythrocyte cou nt by microscopy (number/high power field) [HPF] NRG Automated urine sediment leukocyte count by microscopy (number/high power field) RARE NRG Bacteria detection in urine sediment by light microsco py FEW NRG Squamous epithelial cells detection in u rine sediment by light microscopy 5-10 NRG Crystals detection in urine sediment by light microsco py NONE NRG Casts detection in urine sediment by light microscopy NONE NRG Mucus detection in urine sediment by light microscopy MODERATE NRG Complete urinalysis with reflex to culture NO NRG Genital Culture, Routine - 10/30/15 13:1 9 Genital Culture, Routine Note Complete blood count (CBC) with automate d white blood cell (WBC) differential - 01/19/16 20:38 Blood leukocytes automated count (number/volume) 9.5 10*3/uL 4.3-11.0 Blood erythrocytes automated count (number/volume) 4.81 10*6/uL 4.35-5.85 Venous blood hemoglobin measurement (mass/volume) 13.8 g/dL 11.5-16.0 Blood hematocrit (volume fraction) 42 % 35-52 Automated erythrocyte mean corpuscular volume 87 [ foz_us] 80-99 Automated erythrocyte mean corpuscular h emoglobin (mass per erythrocyte) 29 pg 25-34 Automated erythrocyte mean corpuscular h emoglobin concentration measurement (mass/volume) 33 g/dL 32-36 Automated erythrocyte distribution width ratio 13. 2 % 10.0- 14.5 Automated blood platelet count (count/volume) 252 10*3/uL [...] 10*3 1.0-4.0 Blood monocytes automated count (number/volume) 0. 5 10*3 0.0-1.0 Automated eosinophil count 0.3 10*3/uL 0 .0-0.3 Automated blood basophil count (count/volume) 0.1 10*3/uL 0.0-0.1 Serum or plasma choriogonadotropin measu rement (units/volume) - 01/19/16 20:38 Serum or plasma choriogonadotropin measurement (units/ volume) < m[iU]/mL <5 Complete urinalysis with reflex to cultu re - 06/14/16 23:12 Urine color determination YELLOW NRG Urine clarity determination SLIGHTLY CLOUDY NRG Urine pH measurement by test strip 5 5-9 Specific gravity of urine by test strip 1.025 1.016-1.022 Urine protein assay by test strip, semi-quantitative 1+ NEGATIVE Urine glucose detection by automated test strip NE GATIVE NEGATIVE Erythrocytes detection in urine sediment by light micr oscopy 2+ NEGATIVE Urine ketones detection by automated test strip 4+ NEGATIVE Urine nitrite detection by test strip NEGATIVE NEGATIVE Urine total bilirubin detection by test strip NEGA TIVE NEGATIVE Urine urobilinogen measurement by automated test strip (mass/volume) 1 mg/dL NORMAL Urine leukocyte esterase detection by dipstick 1+ NEGATIVE Automated urine sediment erythrocyte cou nt by microscopy (number/high power field) NONE NRG Automated urine sediment leukocyte count by microscopy (number/high power field) RARE NRG Bacteria detection in urine sediment by light microsco py TRACE NRG Squamous epithelial cells detection in u rine sediment by light microscopy 10-25 NRG Crystals detection in urine sediment by light microsco py NONE NRG Casts detection in urine sediment by light microscopy NONE NRG Mucus detection in urine sediment by light microscopy LARGE NRG Complete urinalysis with reflex to culture NO NRG Complete blood count (CBC) with automate d white blood cell (WBC) differential - 06/14/16 23:15 Blood leukocytes automated count (number/volume) 9.2 10*3/uL 4.3-11.0 Blood erythrocytes automated count (number/volume) 5.16 10*6/uL 4.35-5.85 Venous blood hemoglobin measurement (mass/volume) 14.9 g/dL 11.5-16.0 Blood hematocrit (volume fraction) 44 % 35-52 Automated erythrocyte mean corpuscular volume 85 [ foz_us] 80-99 Automated erythrocyte mean corpuscular h emoglobin (mass per erythrocyte) 29 pg 25-34 Automated erythrocyte mean corpuscular h emoglobin concentration measurement (mass/volume) 34 g/dL 32-36 Automated erythrocyte distribution width ratio 13. 8 % 10.0- 14.5 Automated blood platelet count (count/volume) 316 10*3/uL [...] 10*3 1.0-4.0 Blood monocytes automated count (number/volume) 0. 5 10*3 0.0-1.0 Automated eosinophil count 0.0 10*3/uL 0 .0-0.3 Automated blood basophil count (count/volume) 0.0 10*3/uL 0.0-0.1 Serum or plasma choriogonadotropin (preg princess test) detection - 06/14/16 23:15 Serum or plasma choriogonadotropin ( test) de tection NEGATIVE NEGATIVE Comprehensive metabolic panel - 06/14/16 23:15 Serum or plasma sodium measurement (moles/volume) 139 mmol/L 135-145 Serum or plasma potassium measurement (moles/volume) 3.6 mmol/L 3.6-5.0 Serum or plasma chloride measurement (moles/volume) 104 mmol/L 98-107 Carbon dioxide 23 mmol/L 21-32 Serum or plasma anion gap determination (moles/volume) 12 mmol/L 5-14 Serum or plasma urea nitrogen measurement (mass/volume ) 11 mg/dL 7-18 Serum or plasma creatinine measurement (mass/volume) 0.75 mg/dL 0.60-1.30 Serum or plasma urea nitrogen/creatinine mass ratio 15 NRG Serum or plasma creatinine measurement w ith calculation of estimated glomerular filtration rate > NRG Serum or plasma glucose measurement (mass/volume) 100 mg/dL 70-105 Serum or plasma calcium measurement (mass/volume) 9.3 mg/dL 8.5-10.1 Serum or plasma total bilirubin measurement (mass/volu me) 0.6 mg/dL 0.1-1.0 Serum or plasma alkaline phosphatase susi surement (enzymatic activity/volume) 76 U/L 40-136 Serum or plasma aspartate aminotransfera se measurement (enzymatic activity/volume) 15 U/L 5-34 Serum or plasma alanine aminotransferase measurement (enzymatic activity/volume) 14 U/L 0-55 Serum or plasma protein measurement (mass/volume) 7.6 g/dL 6.4-8.2 Serum or plasma albumin measurement (mass/volume) 4.4 g/dL 3.2-4.5 Bacteria identification in genital speci men by aerobe culture - 06/15/16 01:03 FREE TEXT EXTERNAL PLUS MODERATE NORMAL HUNTER NRG QUANTITY OF GROWTH Abundant Growth NRG Bacteria identification in genital specimen by aerobe culture [id number] NRG Microscopic examination by GUME preparati on - 06/15/16 01:03 Microscopic examination by GUME preparation TNP NRG Microscopic examination by wet preparati on - 06/15/16 01:03 WET PREP RESULTS 06/15 01:35 BY C DONNA N RG Neisseria gonorrhoeae DNA detection by p robe and signal amplification method - 06/15/16 01:03 Gonorrhea amp DNA-urine Negative Negati ve Chlamydia trachomatis DNA detection by p robe and signal amplification method - 06/15/16 01:03 Chlamydia trachomatis DNA detection by p robe and target amplification method Negative Negative Complete blood count (CBC) with automate d white blood cell (WBC) differential - 07/15/16 00:35 Blood leukocytes automated count (number/volume) 9.2 10*3/uL 4.3-11.0 Blood erythrocytes automated count (number/volume) 4.92 10*6/uL 4.35-5.85 Venous blood hemoglobin measurement (mass/volume) 13.9 g/dL 11.5-16.0 Blood hematocrit (volume fraction) 42 % 35-52 Automated erythrocyte mean corpuscular volume 84 [ foz_us] 80-99 Automated erythrocyte mean corpuscular h emoglobin (mass per erythrocyte) 28 pg 25-34 Automated erythrocyte mean corpuscular h emoglobin concentration measurement (mass/volume) 34 g/dL 32-36 Automated erythrocyte distribution width ratio 13. 4 % 10.0- 14.5 Automated blood platelet count (count/volume) 262 10*3/uL [...] 10*3 1.0-4.0 Blood monocytes automated count (number/volume) 1. 1 10*3 0.0-1.0 Automated eosinophil count 0.0 10*3/uL 0 .0-0.3 Automated blood basophil count (count/volume) 0.1 10*3/uL 0.0-0.1 Serum or plasma choriogonadotropin (preg princess test) detection - 07/15/16 00:35 Serum or plasma choriogonadotropin ( test) de tection NEGATIVE NEGATIVE Comprehensive metabolic panel - 07/15/16 00:35 Serum or plasma sodium measurement (moles/volume) 138 mmol/L 135-145 Serum or plasma potassium measurement (moles/volume) 3.7 mmol/L 3.6-5.0 Serum or plasma chloride measurement (moles/volume) 106 mmol/L 98-107 Carbon dioxide 20 mmol/L 21-32 Serum or plasma anion gap determination (moles/volume) 12 mmol/L 5-14 Serum or plasma urea nitrogen measurement (mass/volume ) 11 mg/dL 7-18 Serum or plasma creatinine measurement (mass/volume) 0.74 mg/dL 0.60-1.30 Serum or plasma urea nitrogen/creatinine mass ratio 15 NRG Serum or plasma creatinine measurement w ith calculation of estimated glomerular filtration rate > NRG Serum or plasma glucose measurement (mass/volume) 99 mg/dL 70-105 Serum or plasma calcium measurement (mass/volume) 9.0 mg/dL 8.5-10.1 Serum or plasma total bilirubin measurement (mass/volu me) 0.3 mg/dL 0.1-1.0 Serum or plasma alkaline phosphatase susi surement (enzymatic activity/volume) 68 U/L 40-136 Serum or plasma aspartate aminotransfera se measurement (enzymatic activity/volume) 15 U/L 5-34 Serum or plasma alanine aminotransferase measurement (enzymatic activity/volume) 11 U/L 0-55 Serum or plasma protein measurement (mass/volume) 7.3 g/dL 6.4-8.2 Serum or plasma albumin measurement (mass/volume) 3.9 g/dL 3.2-4.5 Serum or plasma amylase measurement (enz ymatic activity/volume) - 07/15/16 00:35 Serum or plasma amylase measurement (enzymatic activit y/volume) 37 U/L 25-125 Lipase - 07/15/16 00:35 Lipase 14 U/L 8-78 Complete urinalysis with reflex to cultu re - 07/15/16 00:41 Urine color determination YELLOW NRG Urine clarity determination CLEAR NR G Urine pH measurement by test strip 7 5-9 Specific gravity of urine by test strip 1.015 1.016-1.022 Urine protein assay by test strip, semi-quantitative 2+ NEGATIVE Urine glucose detection by automated test strip NE GATIVE NEGATIVE Erythrocytes detection in urine sediment by light micr oscopy 1+ NEGATIVE Urine ketones detection by automated test strip 3+ NEGATIVE Urine nitrite detection by test strip NEGATIVE NEGATIVE Urine total bilirubin detection by test strip NEGA TIVE NEGATIVE Urine urobilinogen measurement by automated test strip (mass/volume) 4 mg/dL NORMAL Urine leukocyte esterase detection by dipstick 1+ NEGATIVE Automated urine sediment erythrocyte cou nt by microscopy (number/high power field) RARE NRG Automated urine sediment leukocyte count by microscopy (number/high power field) RARE NRG Bacteria detection in urine sediment by light microsco py TRACE NRG Squamous epithelial cells detection in u rine sediment by light microscopy 10-25 NRG Crystals detection in urine sediment by light microsco py NONE NRG Casts detection in urine sediment by light microscopy NONE NRG Mucus detection in urine sediment by light microscopy SMALL NRG Complete urinalysis with reflex to culture NO NRG Urine drug screening test - 07/15/16 00: 41 Urine phencyclidine detection by screening method NEGATIVE NEGATIVE Urine benzodiazepines detection by screening method NEGATIVE NEGATIVE Urine cocaine detection NEGATIVE NEGATI VE Urine amphetamines detection by screening method N EGATIVE NEGATIVE Urine methamphetamine detection by screening method NEGATIVE NEGATIVE Urine cannabinoids detection by screening method P OSITIVE NEGATIVE Urine opiates detection by screening method NEGATI VE NEGATIVE Urine barbiturates detection NEGATIVE N EGATIVE Screening urine tricyclic antidepressants detection NEGATIVE NEGATIVE Urine methadone detection by screening method NEGA TIVE NEGATIVE Urine oxycodone detection NEGATIVE NEGA TIVE Urine propoxyphene detection NEGATIVE N EGATIVE Complete urinalysis with reflex to cultu re - 08/01/16 14:49 Urine color determination YELLOW NRG Urine clarity determination CLEAR NR G Urine pH measurement by test strip 5 5-9 Specific gravity of urine by test strip 1.025 1.016-1.022 Urine protein assay by test strip, semi-quantitative 1+ NEGATIVE Urine glucose detection by automated test strip NE GATIVE NEGATIVE Erythrocytes detection in urine sediment by light micr oscopy NEGATIVE NEGATIVE Urine ketones detection by automated test strip NE GATIVE NEGATIVE Urine nitrite detection by test strip NEGATIVE NEGATIVE Urine total bilirubin detection by test strip NEGA TIVE NEGATIVE Urine urobilinogen measurement by automated test strip (mass/volume) NORMAL NORMAL Urine leukocyte esterase detection by dipstick 3+ NEGATIVE Automated urine sediment erythrocyte cou nt by microscopy (number/high power field) NONE NRG Automated urine sediment leukocyte count by microscopy (number/high power field) [HPF] NRG Bacteria detection in urine sediment by light microsco py NEGATIVE NRG Squamous epithelial cells detection in u rine sediment by light microscopy 25-50 NRG Crystals detection in urine sediment by light microsco py NONE NRG Casts detection in urine sediment by light microscopy NONE NRG Mucus detection in urine sediment by light microscopy NEGATIVE NRG Complete urinalysis with reflex to culture NO NRG Complete blood count (CBC) with automate d white blood cell (WBC) differential - 08/01/16 14:55 Blood leukocytes automated count (number/volume) 7.9 10*3/uL 4.3-11.0 Blood erythrocytes automated count (number/volume) 4.76 10*6/uL 4.35-5.85 Venous blood hemoglobin measurement (mass/volume) 13.5 g/dL 11.5-16.0 Blood hematocrit (volume fraction) 41 % 35-52 Automated erythrocyte mean corpuscular volume 86 [ foz_us] 80-99 Automated erythrocyte mean corpuscular h emoglobin (mass per erythrocyte) 28 pg 25-34 Automated erythrocyte mean corpuscular h emoglobin concentration measurement (mass/volume) 33 g/dL 32-36 Automated erythrocyte distribution width ratio 13. 3 % 10.0- 14.5 Automated blood platelet count (count/volume) 284 10*3/uL [...] 10*3 1.0-4.0 Blood monocytes automated count (number/volume) 0. 5 10*3 0.0-1.0 Automated eosinophil count 0.2 10*3/uL 0 .0-0.3 Automated blood basophil count (count/volume) 0.1 10*3/uL 0.0-0.1 Comprehensive metabolic panel - 08/01/16 14:55 Serum or plasma sodium measurement (moles/volume) 141 mmol/L 135-145 Serum or plasma potassium measurement (moles/volume) 3.9 mmol/L 3.6-5.0 Serum or plasma chloride measurement (moles/volume) 107 mmol/L 98-107 Carbon dioxide 27 mmol/L 21-32 Serum or plasma anion gap determination (moles/volume) 7 mmol/L 5-14 Serum or plasma urea nitrogen measurement (mass/volume ) 8 mg/dL 7-18 Serum or plasma creatinine measurement (mass/volume) 0.74 mg/dL 0.60-1.30 Serum or plasma urea nitrogen/creatinine mass ratio 11 NRG Serum or plasma creatinine measurement w ith calculation of estimated glomerular filtration rate > NRG Serum or plasma glucose measurement (mass/volume) 75 mg/dL 70-105 Serum or plasma calcium measurement (mass/volume) 9.1 mg/dL 8.5-10.1 Serum or plasma total bilirubin measurement (mass/volu me) 0.3 mg/dL 0.1-1.0 Serum or plasma alkaline phosphatase susi surement (enzymatic activity/volume) 60 U/L 40-136 Serum or plasma aspartate aminotransfera se measurement (enzymatic activity/volume) 14 U/L 5-34 Serum or plasma alanine aminotransferase measurement (enzymatic activity/volume) 10 U/L 0-55 Serum or plasma protein measurement (mass/volume) 6.7 g/dL 6.4-8.2 Serum or plasma albumin measurement (mass/volume) 3.9 g/dL 3.2-4.5 Lipase - 08/01/16 14:55 Lipase 14 U/L 8-78 Urine drug screening test - 08/06/16 21: 50 Urine phencyclidine detection by screening method NEGATIVE NEGATIVE Urine benzodiazepines detection by screening method NEGATIVE NEGATIVE Urine cocaine detection NEGATIVE NEGATI VE Urine amphetamines detection by screening method N EGATIVE NEGATIVE Urine methamphetamine detection by screening method NEGATIVE NEGATIVE Urine cannabinoids detection by screening method N EGATIVE NEGATIVE Urine opiates detection by screening method POSITI VE NEGATIVE Urine barbiturates detection NEGATIVE N EGATIVE Screening urine tricyclic antidepressants detection NEGATIVE NEGATIVE Urine methadone detection by screening method NEGA TIVE NEGATIVE Urine oxycodone detection NEGATIVE NEGA TIVE Urine propoxyphene detection NEGATIVE N EGATIVE Complete urinalysis with reflex to cultu re - 08/06/16 21:50 Urine color determination YELLOW NRG Urine clarity determination SLIGHTLY CLOUDY NRG Urine pH measurement by test strip 5 5-9 Specific gravity of urine by test strip 1.020 1.016-1.022 Urine protein assay by test strip, semi-quantitative 1+ NEGATIVE Urine glucose detection by automated test strip NE GATIVE NEGATIVE Erythrocytes detection in urine sediment by light micr oscopy 1+ NEGATIVE Urine ketones detection by automated test strip 3+ NEGATIVE Urine nitrite detection by test strip NEGATIVE NEGATIVE Urine total bilirubin detection by test strip NEGA TIVE NEGATIVE Urine urobilinogen measurement by automated test strip (mass/volume) NORMAL NORMAL Urine leukocyte esterase detection by dipstick 1+ NEGATIVE Automated urine sediment erythrocyte cou nt by microscopy (number/high power field) NONE NRG Automated urine sediment leukocyte count by microscopy (number/high power field) [HPF] NRG Bacteria detection in urine sediment by light microsco py MODERATE NRG Squamous epithelial cells detection in u rine sediment by light microscopy >50 NRG Crystals detection in urine sediment by light microsco py NONE NRG Casts detection in urine sediment by light microscopy NONE NRG Mucus detection in urine sediment by light microscopy NEGATIVE NRG Complete urinalysis with reflex to culture NO NRG Complete blood count (CBC) with automate d white blood cell (WBC) differential - 08/06/16 22:02 Blood leukocytes automated count (number/volume) 8.3 10*3/uL 4.3-11.0 Blood erythrocytes automated count (number/volume) 5.03 10*6/uL 4.35-5.85 Venous blood hemoglobin measurement (mass/volume) 14.2 g/dL 11.5-16.0 Blood hematocrit (volume fraction) 43 % 35-52 Automated erythrocyte mean corpuscular volume 86 [ foz_us] 80-99 Automated erythrocyte mean corpuscular h emoglobin (mass per erythrocyte) 28 pg 25-34 Automated erythrocyte mean corpuscular h emoglobin concentration measurement (mass/volume) 33 g/dL 32-36 Automated erythrocyte distribution width ratio 13. 6 % 10.0- 14.5 Automated blood platelet count (count/volume) 316 10*3/uL [...] 10*3 1.0-4.0 Blood monocytes automated count (number/volume) 0. 4 10*3 0.0-1.0 Automated eosinophil count 0.1 10*3/uL 0 .0-0.3 Automated blood basophil count (count/volume) 0.1 10*3/uL 0.0-0.1 Serum or plasma choriogonadotropin (preg princess test) detection - 08/06/16 22:02 Serum or plasma choriogonadotropin ( test) de tection NEGATIVE NEGATIVE Comprehensive metabolic panel - 08/06/16 22:02 Serum or plasma sodium measurement (moles/volume) 140 mmol/L 135-145 Serum or plasma potassium measurement (moles/volume) 3.6 mmol/L 3.6-5.0 Serum or plasma chloride measurement (moles/volume) 105 mmol/L 98-107 Carbon dioxide 23 mmol/L 21-32 Serum or plasma anion gap determination (moles/volume) 12 mmol/L 5-14 Serum or plasma urea nitrogen measurement (mass/volume ) 11 mg/dL 7-18 Serum or plasma creatinine measurement (mass/volume) 0.73 mg/dL 0.60-1.30 Serum or plasma urea nitrogen/creatinine mass ratio 15 0-20 Serum or plasma creatinine measurement w ith calculation of estimated glomerular filtration rate > NRG Serum or plasma glucose measurement (mass/volume) 103 mg/dL 70-105 Serum or plasma calcium measurement (mass/volume) 9.3 mg/dL 8.5-10.1 Serum or plasma total bilirubin measurement (mass/volu me) 0.4 mg/dL 0.1-1.0 Serum or plasma alkaline phosphatase susi surement (enzymatic activity/volume) 72 U/L 40-136 Serum or plasma aspartate aminotransfera se measurement (enzymatic activity/volume) 16 U/L 5-34 Serum or plasma alanine aminotransferase measurement (enzymatic activity/volume) 12 U/L 0-55 Serum or plasma protein measurement (mass/volume) 7.5 g/dL 6.4-8.2 Serum or plasma albumin measurement (mass/volume) 4.1 g/dL 3.2-4.5 Serum or plasma amylase measurement (enz ymatic activity/volume) - 08/06/16 22:02 Serum or plasma amylase measurement (enzymatic activit y/volume) 32 U/L 25-125 Lipase - 08/06/16 22:02 Lipase 9 U/L 8-78 Complete urinalysis with reflex to cultu re - 08/22/16 21:04 Urine color determination YELLOW NRG Urine clarity determination CLEAR NR G Urine pH measurement by test strip 6 5-9 Specific gravity of urine by test strip 1.025 1.016-1.022 Urine protein assay by test strip, semi-quantitative 2+ NEGATIVE Urine glucose detection by automated test strip NE GATIVE NEGATIVE Erythrocytes detection in urine sediment by light micr oscopy 3+ NEGATIVE Urine ketones detection by automated test strip 1+ NEGATIVE Urine nitrite detection by test strip NEGATIVE NEGATIVE Urine total bilirubin detection by test strip NEGA TIVE NEGATIVE Urine urobilinogen measurement by automated test strip (mass/volume) 4 mg/dL NORMAL Urine leukocyte esterase detection by dipstick 1+ NEGATIVE Automated urine sediment erythrocyte cou nt by microscopy (number/high power field) NONE NRG Automated urine sediment leukocyte count by microscopy (number/high power field) [HPF] NRG Bacteria detection in urine sediment by light microsco py NONE NRG Squamous epithelial cells detection in u rine sediment by light microscopy 2-5 NRG Crystals detection in urine sediment by light microsco py NONE NRG Casts detection in urine sediment by light microscopy NONE NRG Mucus detection in urine sediment by light microscopy SMALL NRG Complete urinalysis with reflex to culture NO NRG Urine drug screening test - 08/22/16 21: 09 Urine phencyclidine detection by screening method NEGATIVE NEGATIVE Urine benzodiazepines detection by screening method NEGATIVE NEGATIVE Urine cocaine detection NEGATIVE NEGATI VE Urine amphetamines detection by screening method N EGATIVE NEGATIVE Urine methamphetamine detection by screening method NEGATIVE NEGATIVE Urine cannabinoids detection by screening method P OSITIVE NEGATIVE Urine opiates detection by screening method POSITI VE NEGATIVE Urine barbiturates detection NEGATIVE N EGATIVE Screening urine tricyclic antidepressants detection NEGATIVE NEGATIVE Urine methadone detection by screening method NEGA TIVE NEGATIVE Urine oxycodone detection NEGATIVE NEGA TIVE Urine propoxyphene detection NEGATIVE N EGATIVE Bacterial urine culture - 08/22/16 21:09 URINE CULTURE RESULTS <10,000/ML NRG Gram stain microscopy - 09/25/16 18:25 GRAM STAIN RESULT FEW WBC'S, NO BACTERIA OBSERVED NRG Bacteria identification in wound by cult ure - 09/25/16 18:25 Bacteria identification in wound by culture [id number] NRG FREE TEXT EXTERNAL THIS ISOLATE IS MRSA NRG QUANTITY OF GROWTH Abundant Growth NRG Bacterial susceptibility panel - 7 18:25 Oxacillin susceptibility test by minimum inhibitory co ncentration >= NRG Gentamicin susceptibility test by minimum inhibitory c oncentration <= NRG Clindamycin susceptibility test by minimum inhibitory concentration <= NRG Erythromycin susceptibility test by minimum inhibitory concentration >= NRG Trimethoprim/sulfamethoxazole susceptibi lity test by minimum inhibitoryconcentration <= NRG Vancomycin susceptibility test by minimum inhibitory c oncentration 1 NRG Levofloxacin susceptibility test by minimum inhibitory concentration 4 NRG Rifampin susceptibility test by minimum inhibitory con centration <= NRG Tetracycline susceptibility test by minimum inhibitory concentration <= NRG CULTURE, AEROBIC - 11/01/16 15:01 Aerobic Bacterial Culture Final report NRG Result 1 Mixed skin hunter NRG Aerobic Bacterial Culture - 11/01/16 15: 01 Aerobic Bacterial Culture Note Complete blood count (CBC) with automate d white blood cell (WBC) differential - 11/29/16 19:18 Blood leukocytes automated count (number/volume) 9.6 10*3/uL 4.3-11.0 Blood erythrocytes automated count (number/volume) 5.32 10*6/uL 4.35-5.85 Venous blood hemoglobin measurement (mass/volume) 14.8 g/dL 11.5-16.0 Blood hematocrit (volume fraction) 44 % 35-52 Automated erythrocyte mean corpuscular volume 83 [ foz_us] 80-99 Automated erythrocyte mean corpuscular h emoglobin (mass per erythrocyte) 28 pg 25-34 Automated erythrocyte mean corpuscular h emoglobin concentration measurement (mass/volume) 34 g/dL 32-36 Automated erythrocyte distribution width ratio 13. 4 % 10.0- 14.5 Automated blood platelet count (count/volume) 323 10*3/uL [...] 10*3 1.0-4.0 Blood monocytes automated count (number/volume) 0. 5 10*3 0.0-1.0 Automated eosinophil count 0.1 10*3/uL 0 .0-0.3 Automated blood basophil count (count/volume) 0.1 10*3/uL 0.0-0.1 Comprehensive metabolic panel - 11/29/16 19:18 Serum or plasma sodium measurement (moles/volume) 141 mmol/L 135-145 Serum or plasma potassium measurement (moles/volume) 3.4 mmol/L 3.6-5.0 Serum or plasma chloride measurement (moles/volume) 104 mmol/L 98-107 Carbon dioxide 24 mmol/L 21-32 Serum or plasma anion gap determination (moles/volume) 13 mmol/L 5-14 Serum or plasma urea nitrogen measurement (mass/volume ) 8 mg/dL 7-18 Serum or plasma creatinine measurement (mass/volume) 0.70 mg/dL 0.60-1.30 Serum or plasma urea nitrogen/creatinine mass ratio 11 NRG Serum or plasma creatinine measurement w ith calculation of estimated glomerular filtration rate > NRG Serum or plasma glucose measurement (mass/volume) 91 mg/dL 70-105 Serum or plasma calcium measurement (mass/volume) 9.3 mg/dL 8.5-10.1 Serum or plasma total bilirubin measurement (mass/volu me) 0.4 mg/dL 0.1-1.0 Serum or plasma alkaline phosphatase susi surement (enzymatic activity/volume) 84 U/L 40-136 Serum or plasma aspartate aminotransfera se measurement (enzymatic activity/volume) 15 U/L 5-34 Serum or plasma alanine aminotransferase measurement (enzymatic activity/volume) 15 U/L 0-55 Serum or plasma protein measurement (mass/volume) 8.1 g/dL 6.4-8.2 Serum or plasma albumin measurement (mass/volume) 4.3 g/dL 3.2-4.5 Complete urinalysis with reflex to cultu re - 11/29/16 19:20 Urine color determination YELLOW NRG Urine clarity determination SLIGHTLY CLOUDY NRG Urine pH measurement by test strip 6.5 5-9 Specific gravity of urine by test strip 1.015 1.016-1.022 Urine protein assay by test strip, semi-quantitative 1+ NEGATIVE Urine glucose detection by automated test strip NE GATIVE NEGATIVE Erythrocytes detection in urine sediment by light micr oscopy 1+ NEGATIVE Urine ketones detection by automated test strip NE GATIVE NEGATIVE Urine nitrite detection by test strip NEGATIVE NEGATIVE Urine total bilirubin detection by test strip NEGA TIVE NEGATIVE Urine urobilinogen measurement by automated test strip (mass/volume) NORMAL NORMAL Urine leukocyte esterase detection by dipstick NEG ATIVE NEGATIVE Automated urine sediment erythrocyte cou nt by microscopy (number/high power field) RARE NRG Automated urine sediment leukocyte count by microscopy (number/high power field) [HPF] NRG Bacteria detection in urine sediment by light microsco py TRACE NRG Squamous epithelial cells detection in u rine sediment by light microscopy 2-5 NRG Crystals detection in urine sediment by light microsco py NONE NRG Casts detection in urine sediment by light microscopy NONE NRG Mucus detection in urine sediment by light microscopy LARGE NRG Complete urinalysis with reflex to culture NO NRG Urine beta human chorionic gonadotropin (hCG) measurement - 11/29/16 19:20 Urine beta human chorionic gonadotropin (hCG) measurem ent NEGATIVE NEGATIVE Complete blood count (CBC) with automate d white blood cell (WBC) differential - 12/11/16 16:33 Blood leukocytes automated count (number/volume) 10.3 10*3/uL 4.3-11.0 Blood erythrocytes automated count (number/volume) 5.00 10*6/uL 4.35-5.85 Venous blood hemoglobin measurement (mass/volume) 14.1 g/dL 11.5-16.0 Blood hematocrit (volume fraction) 42 % 35-52 Automated erythrocyte mean corpuscular volume 85 [ foz_us] 80-99 Automated erythrocyte mean corpuscular h emoglobin (mass per erythrocyte) 28 pg 25-34 Automated erythrocyte mean corpuscular h emoglobin concentration measurement (mass/volume) 33 g/dL 32-36 Automated erythrocyte distribution width ratio 13. 7 % 10.0- 14.5 Automated blood platelet count (count/volume) 282 10*3/uL [...] 10*3 1.0-4.0 Blood monocytes automated count (number/volume) 0. 6 10*3 0.0-1.0 Automated eosinophil count 0.3 10*3/uL 0 .0-0.3 Automated blood basophil count (count/volume) 0.1 10*3/uL 0.0-0.1 Comprehensive metabolic panel - 12/11/16 16:33 Serum or plasma sodium measurement (moles/volume) 140 mmol/L 135-145 Serum or plasma potassium measurement (moles/volume) 3.9 mmol/L 3.6-5.0 Serum or plasma chloride measurement (moles/volume) 107 mmol/L 98-107 Carbon dioxide 22 mmol/L 21-32 Serum or plasma anion gap determination (moles/volume) 11 mmol/L 5-14 Serum or plasma urea nitrogen measurement (mass/volume ) 10 mg/dL 7-18 Serum or plasma creatinine measurement (mass/volume) 0.68 mg/dL 0.60-1.30 Serum or plasma urea nitrogen/creatinine mass ratio 15 NRG Serum or plasma creatinine measurement w ith calculation of estimated glomerular filtration rate > NRG Serum or plasma glucose measurement (mass/volume) 89 mg/dL 70-105 Serum or plasma calcium measurement (mass/volume) 9.3 mg/dL 8.5-10.1 Serum or plasma total bilirubin measurement (mass/volu me) 0.3 mg/dL 0.1-1.0 Serum or plasma alkaline phosphatase susi surement (enzymatic activity/volume) 79 U/L 40-136 Serum or plasma aspartate aminotransfera se measurement (enzymatic activity/volume) 18 U/L 5-34 Serum or plasma alanine aminotransferase measurement (enzymatic activity/volume) 26 U/L 0-55 Serum or plasma protein measurement (mass/volume) 7.4 g/dL 6.4-8.2 Serum or plasma albumin measurement (mass/volume) 4.0 g/dL 3.2-4.5 Serum or plasma C reactive protein measu rement (mass/volume) - 12/11/16 16:33 Serum or plasma C reactive protein measurement (mass/v olume) 0.31 mg/dL 0.00-0.50 Complete urinalysis with reflex to cultu re - 12/11/16 16:40 Urine color determination YELLOW NRG Urine clarity determination CLEAR NR G Urine pH measurement by test strip 7 5-9 Specific gravity of urine by test strip 1.015 1.016-1.022 Urine protein assay by test strip, semi-quantitative 1+ NEGATIVE Urine glucose detection by automated test strip NE GATIVE NEGATIVE Erythrocytes detection in urine sediment by light micr oscopy NEGATIVE NEGATIVE Urine ketones detection by automated test strip 1+ NEGATIVE Urine nitrite detection by test strip NEGATIVE NEGATIVE Urine total bilirubin detection by test strip NEGA TIVE NEGATIVE Urine urobilinogen measurement by automated test strip (mass/volume) NORMAL NORMAL Urine leukocyte esterase detection by dipstick NEG ATIVE NEGATIVE Automated urine sediment erythrocyte cou nt by microscopy (number/high power field) NONE NRG Automated urine sediment leukocyte count by microscopy (number/high power field) NONE NRG Bacteria detection in urine sediment by light microsco py FEW NRG Squamous epithelial cells detection in u rine sediment by light microscopy 5-10 NRG Crystals detection in urine sediment by light microsco py NONE NRG Casts detection in urine sediment by light microscopy NONE NRG Mucus detection in urine sediment by light microscopy MODERATE NRG Complete urinalysis with reflex to culture NO NRG Streptococcus pyogenes antigen detection - 12/27/16 20:45 Streptococcus pyogenes antigen detection NEGATIVE NEGATIVE Bacterial throat culture - 12/27/16 20:4 5 Bacterial throat culture NBS NRG CBC - 12/29/16 11:56 WHITE BLOOD CELL COUNT 6.1 Thousand/uL 3 .8-10.8 RED BLOOD CELL COUNT 5.28 Million/uL 3.8 0-5.10 HEMOGLOBIN 15.0 g/dL 11.7-15.5 HEMATOCRIT 44.7 % 35.0-45.0 MCV 84.7 fL 80.0-100.0 MCH 28.4 pg 27.0-33.0 MCHC 33.6 g/dL 32.0-36.0 RDW 13.5 % 11.0-15.0 PLATELET COUNT 261 Thousand/uL 140-400 MPV 11.1 fL 7.5-12.5 ABSOLUTE NEUTROPHILS 3855 cells/uL 1500- 7800 ABSOLUTE LYMPHOCYTES 1598 cells/uL 850-3 900 ABSOLUTE MONOCYTES 439 cells/uL 200-950 ABSOLUTE EOSINOPHILS 159 cells/uL 15-500 ABSOLUTE BASOPHILS 49 cells/uL 0-200 NEUTROPHILS 63.2 % NRG LYMPHOCYTES 26.2 % NRG MONOCYTES 7.2 % NRG EOSINOPHILS 2.6 % NRG BASOPHILS 0.8 % NRG Complete urinalysis with reflex to cultu re - 01/14/17 22:43 Urine color determination YELLOW NRG Urine clarity determination CLEAR NR G Urine pH measurement by test strip 7 5-9 Specific gravity of urine by test strip 1.010 1.016-1.022 Urine protein assay by test strip, semi-quantitative 2+ NEGATIVE Urine glucose detection by automated test strip NE GATIVE NEGATIVE Erythrocytes detection in urine sediment by light micr oscopy NEGATIVE NEGATIVE Urine ketones detection by automated test strip 3+ NEGATIVE Urine nitrite detection by test strip NEGATIVE NEGATIVE Urine total bilirubin detection by test strip NEGA TIVE NEGATIVE Urine urobilinogen measurement by automated test strip (mass/volume) NORMAL NORMAL Urine leukocyte esterase detection by dipstick NEG ATIVE NEGATIVE Automated urine sediment erythrocyte cou nt by microscopy (number/high power field) NONE NRG Automated urine sediment leukocyte count by microscopy (number/high power field) NONE NRG Bacteria detection in urine sediment by light microsco py NONE NRG Squamous epithelial cells detection in u rine sediment by light microscopy 5-10 NRG Crystals detection in urine sediment by light microsco py NONE NRG Casts detection in urine sediment by light microscopy NONE NRG Mucus detection in urine sediment by light microscopy SMALL NRG Complete urinalysis with reflex to culture NO NRG Urine beta human chorionic gonadotropin (hCG) measurement - 01/14/17 22:43 Urine beta human chorionic gonadotropin (hCG) measurem ent NEGATIVE NEGATIVE Urine drug screening test - 01/14/17 22: 43 Urine phencyclidine detection by screening method NEGATIVE NEGATIVE Urine benzodiazepines detection by screening method NEGATIVE NEGATIVE Urine cocaine detection NEGATIVE NEGATI VE Urine amphetamines detection by screening method N EGATIVE NEGATIVE Urine methamphetamine detection by screening method NEGATIVE NEGATIVE Urine cannabinoids detection by screening method P OSITIVE NEGATIVE Urine opiates detection by screening method NEGATI VE NEGATIVE Urine barbiturates detection NEGATIVE N EGATIVE Screening urine tricyclic antidepressants detection NEGATIVE NEGATIVE Urine methadone detection by screening method NEGA TIVE NEGATIVE Urine oxycodone detection NEGATIVE NEGA TIVE Urine propoxyphene detection NEGATIVE N EGATIVE CULTURE, GENITAL - 04/04/17 11:49 CULTURE, GENITAL SEE NOTE NRG PDM - ATS (PROFILE 8 WITH CONFIRMATION) - 07/11/17 14:03 Prescribed Drug 1 Ritalin(TM) NRG Creatinine 290.5 mg/dL > or = 20.0 pH 6.50 4.5 - 9.0 Oxidant NEGATIVE [...] NEGATIVE ng/mL <10 medMATCH 6 Acetylmorphine CONSISTENT NR G Alphahydroxyalprazolam NEGATIVE ng/mL <25 medMATCH aOH alprazolam CONSISTENT NRG Alphahydroxymidazolam NEGATIVE ng/mL < 50 medMATCH aOH midazolam CONSISTENT NRG Alphahydroxytriazolam NEGATIVE ng/mL < 50 medMATCH aOH triazolam CONSISTENT NRG Aminoclonazepam NEGATIVE ng/mL <25 medMATCH Aminoclonazepam CONSISTENT NRG Hydroxyethylflurazepam NEGATIVE ng/mL <50 medMATCH [place],Et flurazepam CONSISTENT NR G Lorazepam NEGATIVE ng/mL <50 medMATCH Lorazepam CONSISTENT NRG Nordiazepam NEGATIVE ng/mL <50 medMATCH Nordiazepam CONSISTENT NRG Oxazepam NEGATIVE ng/mL <50 medMATCH Oxazepam CONSISTENT NRG Temazepam NEGATIVE ng/mL <50 medMATCH Temazepam CONSISTENT NRG medMATCH Buprenorphine CONSISTENT NRG Ethyl Glucuronide (ETG) 17586 ng/mL <5 00 medMATCH ETG INCONSISTENT NRG Ethyl Sulfate (ETS) 3220 ng/mL <100 medMATCH ETS INCONSISTENT NRG Complete blood count (CBC) with automate d white blood cell (WBC) differential - 07/25/17 16:46 Blood leukocytes automated count (number/volume) 9.1 10*3/uL 4.3-11.0 Blood erythrocytes automated count (number/volume) 5.39 10*6/uL 4.35-5.85 Venous blood hemoglobin measurement (mass/volume) 15.6 g/dL 11.5-16.0 Blood hematocrit (volume fraction) 45 % 35-52 Automated erythrocyte mean corpuscular volume 84 [ foz_us] 80-99 Automated erythrocyte mean corpuscular h emoglobin (mass per erythrocyte) 29 pg 25-34 Automated erythrocyte mean corpuscular h emoglobin concentration measurement (mass/volume) 35 g/dL 32-36 Automated erythrocyte distribution width ratio 13. 7 % 10.0- 14.5 Automated blood platelet count (count/volume) 307 10*3/uL [...] 10*3 1.0-4.0 Blood monocytes automated count (number/volume) 0. 3 10*3 0.0-1.0 Automated eosinophil count 0.0 10*3/uL 0 .0-0.3 Automated blood basophil count (count/volume) 0.1 10*3/uL 0.0-0.1 Serum or plasma choriogonadotropin (preg princess test) detection - 07/25/17 16:46 Serum or plasma choriogonadotropin ( test) de tection NEGATIVE NEGATIVE Comprehensive metabolic panel - 07/25/17 16:46 Serum or plasma sodium measurement (moles/volume) 139 mmol/L 135-145 Serum or plasma potassium measurement (moles/volume) 3.8 mmol/L 3.6-5.0 Serum or plasma chloride measurement (moles/volume) 104 mmol/L 98-107 Carbon dioxide 22 mmol/L 21-32 Serum or plasma anion gap determination (moles/volume) 13 mmol/L 5-14 Serum or plasma urea nitrogen measurement (mass/volume ) 11 mg/dL 7-18 Serum or plasma creatinine measurement (mass/volume) 0.81 mg/dL 0.60-1.30 Serum or plasma urea nitrogen/creatinine mass ratio 14 NRG Serum or plasma creatinine measurement w ith calculation of estimated glomerular filtration rate > NRG Serum or plasma glucose measurement (mass/volume) 169 mg/dL 70-105 Serum or plasma calcium measurement (mass/volume) 9.9 mg/dL 8.5-10.1 Serum or plasma total bilirubin measurement (mass/volu me) 0.5 mg/dL 0.1-1.0 Serum or plasma alkaline phosphatase susi surement (enzymatic activity/volume) 85 U/L 40-136 Serum or plasma aspartate aminotransfera se measurement (enzymatic activity/volume) 17 U/L 5-34 Serum or plasma alanine aminotransferase measurement (enzymatic activity/volume) 16 U/L 0-55 Serum or plasma protein measurement (mass/volume) 8.4 g/dL 6.4-8.2 Serum or plasma albumin measurement (mass/volume) 4.7 g/dL 3.2-4.5 Complete urinalysis with reflex to cultu re - 07/25/17 17:24 Urine color determination YELLOW NRG Urine clarity determination SLIGHTLY CLOUDY NRG Urine pH measurement by test strip 6 5-9 Specific gravity of urine by test strip 1.020 1.016-1.022 Urine protein assay by test strip, semi-quantitative 2+ NEGATIVE Urine glucose detection by automated test strip NE GATIVE NEGATIVE Erythrocytes detection in urine sediment by light micr oscopy 1+ NEGATIVE Urine ketones detection by automated test strip NE GATIVE NEGATIVE Urine nitrite detection by test strip NEGATIVE NEGATIVE Urine total bilirubin detection by test strip NEGA TIVE NEGATIVE Urine urobilinogen measurement by automated test strip (mass/volume) 1 mg/dL NORMAL Urine leukocyte esterase detection by dipstick 1+ NEGATIVE Automated urine sediment erythrocyte cou nt by microscopy (number/high power field) RARE NRG Automated urine sediment leukocyte count by microscopy (number/high power field) [HPF] NRG Bacteria detection in urine sediment by light microsco py FEW NRG Squamous epithelial cells detection in u rine sediment by light microscopy 25-50 NRG Crystals detection in urine sediment by light microsco py NONE NRG Casts detection in urine sediment by light microscopy NONE NRG Mucus detection in urine sediment by light microscopy LARGE NRG Complete urinalysis with reflex to culture NO NRG Complete blood count (CBC) with automate d white blood cell (WBC) differential - 12/03/17 14:15 Blood leukocytes automated count (number/volume) 8.3 10*3/uL 4.3-11.0 Blood erythrocytes automated count (number/volume) 5.13 10*6/uL 4.35-5.85 Venous blood hemoglobin measurement (mass/volume) 14.4 g/dL 11.5-16.0 Blood hematocrit (volume fraction) 43 % 35-52 Automated erythrocyte mean corpuscular volume 83 [ foz_us] 80-99 Automated erythrocyte mean corpuscular h emoglobin (mass per erythrocyte) 28 pg 25-34 Automated erythrocyte mean corpuscular h emoglobin concentration measurement (mass/volume) 34 g/dL 32-36 Automated erythrocyte distribution width ratio 14. 8 % 10.0- 14.5 Automated blood platelet count (count/volume) 273 10*3/uL [...] 10*3 1.0-4.0 Blood monocytes automated count (number/volume) 0. 7 10*3 0.0-1.0 Automated eosinophil count 0.2 10*3/uL 0 .0-0.3 Automated blood basophil count (count/volume) 0.0 10*3/uL 0.0-0.1 Complete urinalysis with reflex to cultu re - 12/03/17 14:15 Urine color determination KAPIL NRG Urine clarity determination VERY CLOUDY NRG Urine pH measurement by test strip 5 5-9 Specific gravity of urine by test strip 1.025 1.016-1.022 Urine protein assay by test strip, semi-quantitative 3+ NEGATIVE Urine glucose detection by automated test strip NE GATIVE NEGATIVE Erythrocytes detection in urine sediment by light micr oscopy 5+ NEGATIVE Urine ketones detection by automated test strip 1+ NEGATIVE Urine nitrite detection by test strip POSITIVE NEGATIVE Urine total bilirubin detection by test strip 1+ NEGATIVE Urine urobilinogen measurement by automated test strip (mass/volume) 4 mg/dL NORMAL Urine leukocyte esterase detection by dipstick 3+ NEGATIVE Automated urine sediment erythrocyte cou nt by microscopy (number/high power field) [HPF] NRG Automated urine sediment leukocyte count by microscopy (number/high power field) [HPF] NRG Bacteria detection in urine sediment by light microsco py MODERATE NRG Squamous epithelial cells detection in u rine sediment by light microscopy >50 NRG Crystals detection in urine sediment by light microsco py NONE NRG Casts detection in urine sediment by light microscopy NONE NRG Mucus detection in urine sediment by light microscopy NEGATIVE NRG Complete urinalysis with reflex to culture YES NRG Serum or plasma choriogonadotropin (preg princess test) detection - 12/03/17 14:15 Serum or plasma choriogonadotropin ( test) de tection NEGATIVE NEGATIVE Comprehensive metabolic panel - 12/03/17 14:15 Serum or plasma sodium measurement (moles/volume) 140 mmol/L 135-145 Serum or plasma potassium measurement (moles/volume) 3.7 mmol/L 3.6-5.0 Serum or plasma chloride measurement (moles/volume) 107 mmol/L 98-107 Carbon dioxide 22 mmol/L 21-32 Serum or plasma anion gap determination (moles/volume) 11 mmol/L 5-14 Serum or plasma urea nitrogen measurement (mass/volume ) 10 mg/dL 7-18 Serum or plasma creatinine measurement (mass/volume) 0.74 mg/dL 0.60-1.30 Serum or plasma urea nitrogen/creatinine mass ratio 14 NRG Serum or plasma creatinine measurement w ith calculation of estimated glomerular filtration rate > NRG Serum or plasma glucose measurement (mass/volume) 89 mg/dL 70-105 Serum or plasma calcium measurement (mass/volume) 9.1 mg/dL 8.5-10.1 Serum or plasma total bilirubin measurement (mass/volu me) 0.3 mg/dL 0.1-1.0 Serum or plasma alkaline phosphatase susi surement (enzymatic activity/volume) 80 U/L 40-136 Serum or plasma aspartate aminotransfera se measurement (enzymatic activity/volume) 17 U/L 5-34 Serum or plasma alanine aminotransferase measurement (enzymatic activity/volume) 17 U/L 0-55 Serum or plasma protein measurement (mass/volume) 7.5 g/dL 6.4-8.2 Serum or plasma albumin measurement (mass/volume) 4.1 g/dL 3.2-4.5 CALCIUM CORRECTED 9.0 mg/dL 8.5-10.1 Bacterial urine culture - 12/03/17 14:15 Bacterial urine culture SEE REPORT NRG COLONY COUNT . NRG Serum or plasma choriogonadotropin (preg princess test) detection - 12/07/17 19:30 Serum or plasma choriogonadotropin ( test) de tection NEGATIVE NEGATIVE Comprehensive metabolic panel - 12/07/17 19:30 Serum or plasma sodium measurement (moles/volume) 140 mmol/L 135-145 Serum or plasma potassium measurement (moles/volume) 4.0 mmol/L 3.6-5.0 Serum or plasma chloride measurement (moles/volume) 104 mmol/L 98-107 Carbon dioxide 24 mmol/L 21-32 Serum or plasma anion gap determination (moles/volume) 12 mmol/L 5-14 Serum or plasma urea nitrogen measurement (mass/volume ) 11 mg/dL 7-18 Serum or plasma creatinine measurement (mass/volume) 0.75 mg/dL 0.60-1.30 Serum or plasma urea nitrogen/creatinine mass ratio 15 NRG Serum or plasma creatinine measurement w ith calculation of estimated glomerular filtration rate > NRG Serum or plasma glucose measurement (mass/volume) 105 mg/dL 70-105 Serum or plasma calcium measurement (mass/volume) 9.6 mg/dL 8.5-10.1 Serum or plasma total bilirubin measurement (mass/volu me) 0.2 mg/dL 0.1-1.0 Serum or plasma alkaline phosphatase susi surement (enzymatic activity/volume) 81 U/L 40-136 Serum or plasma aspartate aminotransfera se measurement (enzymatic activity/volume) 16 U/L 5-34 Serum or plasma alanine aminotransferase measurement (enzymatic activity/volume) 16 U/L 0-55 Serum or plasma protein measurement (mass/volume) 8.4 g/dL 6.4-8.2 Serum or plasma albumin measurement (mass/volume) 4.6 g/dL 3.2-4.5 Complete blood count (CBC) with automate d white blood cell (WBC) differential - 12/07/17 19:30 Blood leukocytes automated count (number/volume) 7.6 10*3/uL 4.3-11.0 Blood erythrocytes automated count (number/volume) 5.15 10*6/uL 4.35-5.85 Venous blood hemoglobin measurement (mass/volume) 14.3 g/dL 11.5-16.0 Blood hematocrit (volume fraction) 43 % 35-52 Automated erythrocyte mean corpuscular volume 83 [ foz_us] 80-99 Automated erythrocyte mean corpuscular h emoglobin (mass per erythrocyte) 28 pg 25-34 Automated erythrocyte mean corpuscular h emoglobin concentration measurement (mass/volume) 33 g/dL 32-36 Automated erythrocyte distribution width ratio 14. 8 % 10.0- 14.5 Automated blood platelet count (count/volume) 299 10*3/uL [...] 10*3 1.0-4.0 Blood monocytes automated count (number/volume) 0. 7 10*3 0.0-1.0 Automated eosinophil count 0.1 10*3/uL 0 .0-0.3 Automated blood basophil count (count/volume) 0.1 10*3/uL 0.0-0.1 Serum or plasma thyrotropin measurement by detection limit <=0.05 miu/l (units/volume) - 12/07/17 19:30 Serum or plasma thyrotropin measurement by detection limit <=0.05 miu/l (units/volume) 1.45 u[iU]/mL 0.35-4.94 Serum or plasma salicylates measurement (mass/volume) - 12/07/17 19:30 Serum or plasma salicylates measurement (mass/volume) < mg/dL 5.0-20.0 Serum or plasma acetaminophen measuremen t (mass/volume) - 12/07/17 19:30 Serum or plasma acetaminophen measurement (mass/volume ) < ug/mL 10-30 Serum or plasma ethanol measurement (mas s/volume) - 12/07/17 19:30 Serum or plasma ethanol measurement (mass/volume) < mg/dL <10 Complete urinalysis with reflex to cultu re - 12/07/17 20:12 Urine color determination YELLOW NRG Urine clarity determination CLEAR NR G Urine pH measurement by test strip 7 5-9 Specific gravity of urine by test strip 1.005 1.016-1.022 Urine protein assay by test strip, semi-quantitative NEGATIVE NEGATIVE Urine glucose detection by automated test strip NE GATIVE NEGATIVE Erythrocytes detection in urine sediment by light micr oscopy NEGATIVE NEGATIVE Urine ketones detection by automated test strip NE GATIVE NEGATIVE Urine nitrite detection by test strip NEGATIVE NEGATIVE Urine total bilirubin detection by test strip NEGA TIVE NEGATIVE Urine urobilinogen measurement by automated test strip (mass/volume) NORMAL NORMAL Urine leukocyte esterase detection by dipstick NEG ATIVE NEGATIVE Automated urine sediment erythrocyte cou nt by microscopy (number/high power field) NONE NRG Automated urine sediment leukocyte count by microscopy (number/high power field) NONE NRG Bacteria detection in urine sediment by light microsco py NONE NRG Squamous epithelial cells detection in u rine sediment by light microscopy 0-2 NRG Crystals detection in urine sediment by light microsco py NONE NRG Casts detection in urine sediment by light microscopy NONE NRG Mucus detection in urine sediment by light microscopy NEGATIVE NRG Complete urinalysis with reflex to culture NO NRG Urine drug screening test - 12/07/17 20: 12 Urine phencyclidine detection by screening method NEGATIVE NEGATIVE Urine benzodiazepines detection by screening method NEGATIVE NEGATIVE Urine cocaine detection NEGATIVE NEGATI VE Urine amphetamines detection by screening method N EGATIVE NEGATIVE Urine methamphetamine detection by screening method NEGATIVE NEGATIVE Urine cannabinoids detection by screening method N EGATIVE NEGATIVE Urine opiates detection by screening method NEGATI VE NEGATIVE Urine barbiturates detection NEGATIVE N EGATIVE Screening urine tricyclic antidepressants detection NEGATIVE NEGATIVE Urine methadone detection by screening method NEGA TIVE NEGATIVE Urine oxycodone detection NEGATIVE NEGA TIVE Urine propoxyphene detection NEGATIVE N EGATIVE CULTURE, VAGINAL YEAST - 01/24/18 10:32 CULTURE, YEAST, W/DIRECT FLUORESCENT GUME SEE NOTE NRG GC/CHLAMYDIA (SWAB OR URINE)-RAPID - 07/07 10:32 CHLAMYDIA TRACHOMATIS RNA, TMA NOT DETECTED NOT DETECTED NEISSERIA GONORRHOEAE RNA, TMA NOT DETECTED NOT DETECTED COMMENT NRG SUREPATH PAP RFX HPV mRNA E6/E7 - 10:32 CLINICAL INFORMATION: NRG LMP: 01/06/18 NRG PREV. PAP: NRG PREV. BX: NRG SOURCE: [employer]ervix NRG STATEMENT OF ADEQUACY: NRG INTERPRETATION/RESULT: NRG COMPANY MARKER: NRG INFECTION: NRG COMMENT NRG PAIN MGMT,METHYLPHENIDATE METAB,QN,W/med MATCH,U - 06/13/18 15:37 COMMENT NRG Ritalinic Acid NEGATIVE ng/mL <100 medMATCH Ritalinic Acid CONSISTENT NRG Complete blood count (CBC) with automate d white blood cell (WBC) differential - 07/04/18 19:17 Blood leukocytes automated count (number/volume) 5.6 10*3/uL 4.3-11.0 Blood erythrocytes automated count (number/volume) 4.91 10*6/uL 4.35-5.85 Venous blood hemoglobin measurement (mass/volume) 14.0 g/dL 11.5-16.0 Blood hematocrit (volume fraction) 42 % 35-52 Automated erythrocyte mean corpuscular volume 86 [ foz_us] 80-99 Automated erythrocyte mean corpuscular h emoglobin (mass per erythrocyte) 29 pg 25-34 Automated erythrocyte mean corpuscular h emoglobin concentration measurement (mass/volume) 33 g/dL 32-36 Automated erythrocyte distribution width ratio 13. 9 % 10.0- 14.5 Automated blood platelet count (count/volume) 248 10*3/uL 130-400 Automated blood platelet mean volume measurement 11.5 [foz_us] 7.4-10.4 Automated blood neutrophils/100 leukocytes 67 % 42-75 Automated blood lymphocytes/100 leukocytes 26 % 12-44 Blood monocytes/100 leukocytes 5 % 0-12 Automated blood eosinophils/100 leukocytes 1 % 0-10 Automated blood basophils/100 leukocytes 1 % 0-10 Blood neutrophils automated count (number/volume) 3.8 10*3 1.8-7.8 Blood lymphocytes automated count (number/volume) 1.5 10*3 1.0-4.0 Blood monocytes automated count (number/volume) 0. 3 10*3 0.0-1.0 Automated eosinophil count 0.0 10*3/uL 0 .0-0.3 Automated blood basophil count (count/volume) 0.0 10*3/uL 0.0-0.1 Comprehensive metabolic panel - 07/04/18 19:17 Serum or plasma sodium measurement (moles/volume) 139 mmol/L 135-145 Serum or plasma potassium measurement (moles/volume) 3.7 mmol/L 3.6-5.0 Serum or plasma chloride measurement (moles/volume) 107 mmol/L 98-107 Carbon dioxide 20 mmol/L 21-32 Serum or plasma anion gap determination (moles/volume) 12 mmol/L 5-14 Serum or plasma urea nitrogen measurement (mass/volume ) 7 mg/dL 7-18 Serum or plasma creatinine measurement (mass/volume) 0.80 mg/dL 0.60-1.30 Serum or plasma urea nitrogen/creatinine mass ratio 9 NRG Serum or plasma creatinine measurement w ith calculation of estimated glomerular filtration rate > NRG Serum or plasma glucose measurement (mass/volume) 172 mg/dL 70-105 Serum or plasma calcium measurement (mass/volume) 9.1 mg/dL 8.5-10.1 Serum or plasma total bilirubin measurement (mass/volu me) 0.2 mg/dL 0.1-1.0 Serum or plasma alkaline phosphatase susi surement (enzymatic activity/volume) 74 U/L 40-136 Serum or plasma aspartate aminotransfera se measurement (enzymatic activity/volume) 14 U/L 5-34 Serum or plasma alanine aminotransferase measurement (enzymatic activity/volume) 11 U/L 0-55 Serum or plasma protein measurement (mass/volume) 7.0 g/dL 6.4-8.2 Serum or plasma albumin measurement (mass/volume) 4.1 g/dL 3.2-4.5 CALCIUM CORRECTED 9.0 mg/dL 8.5-10.1 Serum or plasma salicylates measurement (mass/volume) - 07/04/18 19:17 Serum or plasma salicylates measurement (mass/volume) < mg/dL 5.0-20.0 Serum or plasma acetaminophen measuremen t (mass/volume) - 07/04/18 19:17 Serum or plasma acetaminophen measurement (mass/volume ) < ug/mL 10-30 Serum or plasma ethanol measurement (mas s/volume) - 07/04/18 19:17 Serum or plasma ethanol measurement (mass/volume) < mg/dL <10 Urine beta human chorionic gonadotropin (hCG) measurement - 07/04/18 19:30 Urine beta human chorionic gonadotropin (hCG) measurem ent NEGATIVE NEGATIVE Complete urinalysis with reflex to cultu re - 07/04/18 19:30 Urine color determination YELLOW NRG Urine clarity determination CLEAR NR G Urine pH measurement by test strip 6.5 5-9 Specific gravity of urine by test strip 1.020 1.016-1.022 Urine protein assay by test strip, semi-quantitative 1+ NEGATIVE Urine glucose detection by automated test strip NE GATIVE NEGATIVE Erythrocytes detection in urine sediment by light micr oscopy 1+ NEGATIVE Urine ketones detection by automated test strip 2+ NEGATIVE Urine nitrite detection by test strip NEGATIVE NEGATIVE Urine total bilirubin detection by test strip NEGA TIVE NEGATIVE Urine urobilinogen measurement by automated test strip (mass/volume) NORMAL NORMAL Urine leukocyte esterase detection by dipstick 2+ NEGATIVE Automated urine sediment erythrocyte cou nt by microscopy (number/high power field) [HPF] NRG Automated urine sediment leukocyte count by microscopy (number/high power field) [HPF] NRG Bacteria detection in urine sediment by light microsco py LARGE NRG Squamous epithelial cells detection in u rine sediment by light microscopy 10-25 NRG Crystals detection in urine sediment by light microsco py NONE NRG Casts detection in urine sediment by light microscopy NONE NRG Mucus detection in urine sediment by light microscopy MODERATE NRG Complete urinalysis with reflex to culture YES NRG Urine drug screening test - 07/04/18 19: 30 Urine phencyclidine detection by screening method NEGATIVE NEGATIVE Urine benzodiazepines detection by screening method NEGATIVE NEGATIVE Urine cocaine detection NEGATIVE NEGATI VE Urine amphetamines detection by screening method N EGATIVE NEGATIVE Urine methamphetamine detection by screening method NEGATIVE NEGATIVE Urine cannabinoids detection by screening method N EGATIVE NEGATIVE Urine opiates detection by screening method NEGATI VE NEGATIVE Urine barbiturates detection NEGATIVE N EGATIVE Screening urine tricyclic antidepressants detection NEGATIVE NEGATIVE Urine methadone detection by screening method NEGA TIVE NEGATIVE Urine oxycodone detection NEGATIVE NEGA TIVE Urine propoxyphene detection NEGATIVE N EGATIVE Bacterial urine culture - 07/04/18 19:30 Bacterial urine culture NG NRG Complete blood count (CBC) with automate d white blood cell (WBC) differential - 07/05/18 03:05 Blood leukocytes automated count (number/volume) 5.3 10*3/uL 4.3-11.0 Blood erythrocytes automated count (number/volume) 4.30 10*6/uL 4.35-5.85 Venous blood hemoglobin measurement (mass/volume) 12.1 g/dL 11.5-16.0 Blood hematocrit (volume fraction) 37 % 35-52 Automated erythrocyte mean corpuscular volume 87 [ foz_us] 80-99 Automated erythrocyte mean corpuscular h emoglobin (mass per erythrocyte) 28 pg 25-34 Automated erythrocyte mean corpuscular h emoglobin concentration measurement (mass/volume) 33 g/dL 32-36 Automated erythrocyte distribution width ratio 13. 9 % 10.0- 14.5 Automated blood platelet count (count/volume) 239 10*3/uL 130-400 Automated blood platelet mean volume measurement 11.3 [foz_us] 7.4-10.4 Automated blood neutrophils/100 leukocytes 46 % 42-75 Automated blood lymphocytes/100 leukocytes 39 % 12-44 Blood monocytes/100 leukocytes 9 % 0-12 Automated blood eosinophils/100 leukocytes 5 % 0-10 Automated blood basophils/100 leukocytes 1 % 0-10 Blood neutrophils automated count (number/volume) 2.4 10*3 1.8-7.8 Blood lymphocytes automated count (number/volume) 2.1 10*3 1.0-4.0 Blood monocytes automated count (number/volume) 0. 5 10*3 0.0-1.0 Automated eosinophil count 0.3 10*3/uL 0 .0-0.3 Automated blood basophil count (count/volume) 0.1 10*3/uL 0.0-0.1 Comprehensive metabolic panel - 07/05/18 03:05 Serum or plasma sodium measurement (moles/volume) 142 mmol/L 135-145 Serum or plasma potassium measurement (moles/volume) 3.5 mmol/L 3.6-5.0 Serum or plasma chloride measurement (moles/volume) 113 mmol/L 98-107 Carbon dioxide 20 mmol/L 21-32 Serum or plasma anion gap determination (moles/volume) 9 mmol/L 5-14 Serum or plasma urea nitrogen measurement (mass/volume ) 8 mg/dL 7-18 Serum or plasma creatinine measurement (mass/volume) 0.87 mg/dL 0.60-1.30 Serum or plasma urea nitrogen/creatinine mass ratio 9 NRG Serum or plasma creatinine measurement w ith calculation of estimated glomerular filtration rate > NRG Serum or plasma glucose measurement (mass/volume) 102 mg/dL 70-105 Serum or plasma calcium measurement (mass/volume) 7.9 mg/dL 8.5-10.1 Serum or plasma total bilirubin measurement (mass/volu me) 0.1 mg/dL 0.1-1.0 Serum or plasma alkaline phosphatase susi surement (enzymatic activity/volume) 60 U/L 40-136 Serum or plasma aspartate aminotransfera se measurement (enzymatic activity/volume) 12 U/L 5-34 Serum or plasma alanine aminotransferase measurement (enzymatic activity/volume) 12 U/L 0-55 Serum or plasma protein measurement (mass/volume) 5.7 g/dL 6.4-8.2 Serum or plasma albumin measurement (mass/volume) 3.4 g/dL 3.2-4.5 CALCIUM CORRECTED 8.4 mg/dL 8.5-10.1 Complete urinalysis with reflex to cultu re - 07/21/18 12:00 Urine color determination YELLOW NRG Urine clarity determination CLEAR NR G Urine pH measurement by test strip 5 5-9 Specific gravity of urine by test strip 1.025 1.016-1.022 Urine protein assay by test strip, semi-quantitative 1+ NEGATIVE Urine glucose detection by automated test strip NE GATIVE NEGATIVE Erythrocytes detection in urine sediment by light micr oscopy 2+ NEGATIVE Urine ketones detection by automated test strip 1+ NEGATIVE Urine nitrite detection by test strip NEGATIVE NEGATIVE Urine total bilirubin detection by test strip NEGA TIVE NEGATIVE Urine urobilinogen measurement by automated test strip (mass/volume) NORMAL NORMAL Urine leukocyte esterase detection by dipstick NEG ATIVE NEGATIVE Automated urine sediment erythrocyte cou nt by microscopy (number/high power field) NONE NRG Automated urine sediment leukocyte count by microscopy (number/high power field) [HPF] NRG Bacteria detection in urine sediment by light microsco py MODERATE NRG Squamous epithelial cells detection in u rine sediment by light microscopy 5-10 NRG Crystals detection in urine sediment by light microsco py NONE NRG Casts detection in urine sediment by light microscopy NONE NRG Mucus detection in urine sediment by light microscopy NEGATIVE NRG Complete urinalysis with reflex to culture YES NRG Bacterial urine culture - 07/21/18 12:00 Bacterial urine culture 3 OR MORE NRG COLONY COUNT 40,000 CFU/ML NRG FTX;REPORTABLE (GRAM POSITIVE) SUGGESTING PROBABLE NRG FREE TEXT ENTRY 2 COLLECTION CONTAMINATION WITH SK IN HUNTER NRG FREE TEXT ENTRY 3 NO SUSCEPTIBILITY PERFORMED NRG Complete blood count (CBC) with automate d white blood cell (WBC) differential - 07/21/18 12:14 Blood leukocytes automated count (number/volume) 6.2 10*3/uL 4.3-11.0 Blood erythrocytes automated count (number/volume) 4.80 10*6/uL 4.35-5.85 Venous blood hemoglobin measurement (mass/volume) 13.7 g/dL 11.5-16.0 Blood hematocrit (volume fraction) 40 % 35-52 Automated erythrocyte mean corpuscular volume 83 [ foz_us] 80-99 Automated erythrocyte mean corpuscular h emoglobin (mass per erythrocyte) 29 pg 25-34 Automated erythrocyte mean corpuscular h emoglobin concentration measurement (mass/volume) 34 g/dL 32-36 Automated erythrocyte distribution width ratio 13. 6 % 10.0- 14.5 Automated blood platelet count (count/volume) 241 10*3/uL 130-400 Automated blood platelet mean volume measurement 11.0 [foz_us] 7.4-10.4 Automated blood neutrophils/100 leukocytes 65 % 42-75 Automated blood lymphocytes/100 leukocytes 26 % 12-44 Blood monocytes/100 leukocytes 7 % 0-12 Automated blood eosinophils/100 leukocytes 2 % 0-10 Automated blood basophils/100 leukocytes 1 % 0-10 Blood neutrophils automated count (number/volume) 4.0 10*3 1.8-7.8 Blood lymphocytes automated count (number/volume) 1.6 10*3 1.0-4.0 Blood monocytes automated count (number/volume) 0. 5 10*3 0.0-1.0 Automated eosinophil count 0.1 10*3/uL 0 .0-0.3 Automated blood basophil count (count/volume) 0.0 10*3/uL 0.0-0.1 Comprehensive metabolic panel - 07/21/18 12:14 Serum or plasma sodium measurement (moles/volume) 138 mmol/L 135-145 Serum or plasma potassium measurement (moles/volume) 3.8 mmol/L 3.6-5.0 Serum or plasma chloride measurement (moles/volume) 107 mmol/L 98-107 Carbon dioxide 22 mmol/L 21-32 Serum or plasma anion gap determination (moles/volume) 9 mmol/L 5-14 Serum or plasma urea nitrogen measurement (mass/volume ) 10 mg/dL 7-18 Serum or plasma creatinine measurement (mass/volume) 0.66 mg/dL 0.60-1.30 Serum or plasma urea nitrogen/creatinine mass ratio 15 NRG Serum or plasma creatinine measurement w ith calculation of estimated glomerular filtration rate > NRG Serum or plasma glucose measurement (mass/volume) 86 mg/dL 70-105 Serum or plasma calcium measurement (mass/volume) 9.1 mg/dL 8.5-10.1 Serum or plasma total bilirubin measurement (mass/volu me) 0.3 mg/dL 0.1-1.0 Serum or plasma alkaline phosphatase susi surement (enzymatic activity/volume) 69 U/L 40-136 Serum or plasma aspartate aminotransfera se measurement (enzymatic activity/volume) 14 U/L 5-34 Serum or plasma alanine aminotransferase measurement (enzymatic activity/volume) 13 U/L 0-55 Serum or plasma protein measurement (mass/volume) 6.9 g/dL 6.4-8.2 Serum or plasma albumin measurement (mass/volume) 4.2 g/dL 3.2-4.5 CALCIUM CORRECTED 8.9 mg/dL 8.5-10.1 Serum or plasma amylase measurement (enz ymatic activity/volume) - 07/21/18 12:14 Serum or plasma amylase measurement (enzymatic activit y/volume) 32 U/L 25-125 Lipase - 07/21/18 12:14 Lipase 10 U/L 8-78 Complete urinalysis with reflex to cultu re - 09/02/18 20:44 Urine color determination YELLOW NRG Urine clarity determination CLEAR NR G Urine pH measurement by test strip 6 5-9 Specific gravity of urine by test strip 1.015 1.016-1.022 Urine protein assay by test strip, semi-quantitative 1+ NEGATIVE Urine glucose detection by automated test strip NE GATIVE NEGATIVE Erythrocytes detection in urine sediment by light micr oscopy 2+ NEGATIVE Urine ketones detection by automated test strip 2+ NEGATIVE Urine nitrite detection by test strip NEGATIVE NEGATIVE Urine total bilirubin detection by test strip NEGA TIVE NEGATIVE Urine urobilinogen measurement by automated test strip (mass/volume) 1 mg/dL NORMAL Urine leukocyte esterase detection by dipstick 2+ NEGATIVE Automated urine sediment erythrocyte cou nt by microscopy (number/high power field) [HPF] NRG Automated urine sediment leukocyte count by microscopy (number/high power field) [HPF] NRG Bacteria detection in urine sediment by light microsco py FEW NRG Squamous epithelial cells detection in u rine sediment by light microscopy 10-25 NRG Crystals detection in urine sediment by light microsco py NONE NRG Casts detection in urine sediment by light microscopy NONE NRG Mucus detection in urine sediment by light microscopy MODERATE NRG Complete urinalysis with reflex to culture YES NRG Bacterial urine culture - 09/02/18 20:44 Bacterial urine culture 3 OR MORE NRG COLONY COUNT 40,000 CFU/ML NRG FTX;REPORTABLE GRAM POSITIVES, SUGGESTING PROBABLE NRG FREE TEXT ENTRY 2 COLLECTION CONTAMINATION WITH SK IN HUNTER NRG FREE TEXT ENTRY 3 NO SUSCEPTIBILITY PERFORMED NRG Complete blood count (CBC) with automate d white blood cell (WBC) differential - 09/02/18 21:00 Blood leukocytes automated count (number/volume) 10.2 10*3/uL 4.3-11.0 Blood erythrocytes automated count (number/volume) 4.75 10*6/uL 4.35-5.85 Venous blood hemoglobin measurement (mass/volume) 13.5 g/dL 11.5-16.0 Blood hematocrit (volume fraction) 41 % 35-52 Automated erythrocyte mean corpuscular volume 86 [ foz_us] 80-99 Automated erythrocyte mean corpuscular h emoglobin (mass per erythrocyte) 28 pg 25-34 Automated erythrocyte mean corpuscular h emoglobin concentration measurement (mass/volume) 33 g/dL 32-36 Automated erythrocyte distribution width ratio 13. 9 % 10.0- 14.5 Automated blood platelet count (count/volume) 202 10*3/uL 130-400 Automated blood platelet mean volume measurement 11.0 [foz_us] 7.4-10.4 Automated blood neutrophils/100 leukocytes 89 % 42-75 Automated blood lymphocytes/100 leukocytes 5 % 12-44 Blood monocytes/100 leukocytes 6 % 0-12 Automated blood eosinophils/100 leukocytes 0 % 0-10 Automated blood basophils/100 leukocytes 0 % 0-10 Blood neutrophils automated count (number/volume) 9.0 10*3 1.8-7.8 Blood lymphocytes automated count (number/volume) 0.5 10*3 1.0-4.0 Blood monocytes automated count (number/volume) 0. 6 10*3 0.0-1.0 Automated eosinophil count 0.0 10*3/uL 0 .0-0.3 Automated blood basophil count (count/volume) 0.0 10*3/uL 0.0-0.1 Blood lactic acid measurement (moles/vol ume) - 09/02/18 21:00 Blood lactic acid measurement (moles/volume) 1.04 mmol/L 0.50-2.00 Manual absolute plasma cell count - 08/20 06/08 21:00 Blood monocytes/100 leukocytes 4 % NRG Manual blood segmented neutrophils/100 leukocytes 88 % NRG Blood band neutrophils/100 leukocytes 3 % NRG Manual blood lymphocytes/100 leukocytes 4 % NRG Manual eosinophils/100 leukocytes in nose 0 % NRG Manual blood basophils/100 leukocytes 1 % NRG Blood toxic granules detection by light microscopy 1+ NRG Serum heterophile antibody titer - 09/02 21:00 Serum heterophile antibody titer NEGATIVE NEGATIVE Comprehensive metabolic panel - 09/02/18 21:00 Serum or plasma sodium measurement (moles/volume) 136 mmol/L 135-145 Serum or plasma potassium measurement (moles/volume) 3.4 mmol/L 3.6-5.0 Serum or plasma chloride measurement (moles/volume) 104 mmol/L 98-107 Carbon dioxide 20 mmol/L 21-32 Serum or plasma anion gap determination (moles/volume) 12 mmol/L 5-14 Serum or plasma urea nitrogen measurement (mass/volume ) 10 mg/dL 7-18 Serum or plasma creatinine measurement (mass/volume) 0.76 mg/dL 0.60-1.30 Serum or plasma urea nitrogen/creatinine mass ratio 13 NRG Serum or plasma creatinine measurement w ith calculation of estimated glomerular filtration rate > NRG Serum or plasma glucose measurement (mass/volume) 115 mg/dL 70-105 Serum or plasma calcium measurement (mass/volume) 9.3 mg/dL 8.5-10.1 Serum or plasma total bilirubin measurement (mass/volu me) 0.3 mg/dL 0.1-1.0 Serum or plasma alkaline phosphatase susi surement (enzymatic activity/volume) 81 U/L 40-136 Serum or plasma aspartate aminotransfera se measurement (enzymatic activity/volume) 12 U/L 5-34 Serum or plasma alanine aminotransferase measurement (enzymatic activity/volume) 11 U/L 0-55 Serum or plasma protein measurement (mass/volume) 7.5 g/dL 6.4-8.2 Serum or plasma albumin measurement (mass/volume) 4.1 g/dL 3.2-4.5 CALCIUM CORRECTED 9.2 mg/dL 8.5-10.1 Bacterial blood culture - 09/02/18 21:00 Bacterial blood culture NG NRG Bacterial blood culture - 09/02/18 21:00 Bacterial blood culture NG NRG Streptococcus pyogenes antigen detection - 09/02/18 21:05 Streptococcus pyogenes antigen detection NEGATIVE NEGATIVE Bacterial throat culture - 09/02/18 21:0 5 Bacterial throat culture NBS NRG Bacteria identification in genital speci men by aerobe culture - 09/02/18 22:21 FREE TEXT EXTERNAL WITH USUAL MIXED HUNTER NRG QUANTITY OF GROWTH Moderate Growth NRG Bacteria identification in genital specimen by aerobe culture [id number] NRG Microscopic examination by wet preparati on - 09/02/18 22:21 WET PREP RESULTS 09/02/18 2235 BY BD NR G Neisseria gonorrhoeae DNA detection by p robe and signal amplification method - 09/02/18 22:21 Gonorrhea amp DNA-urine Dectected Not D etected Chlamydia trachomatis DNA detection by p robe and signal amplification method - 09/02/18 22:21 Chlamydia trachomatis DNA detection by p robe and target amplification method Detected Not Detected TSH - 11/15/18 15:05 TSH 0.76 mIU/L NRG RUBELLA IMMUNE STATUS - 11/15/18 15:05 RUBELLA ANTIBODY (IGG) 3.05 index NRG CULTURE, URINE - 11/15/18 15:05 CULTURE, URINE, ROUTINE SEE NOTE NRG CULTURE, GENITAL - 12/13/18 00:00 CULTURE, GENITAL SEE NOTE NRG Complete urinalysis with reflex to cultu re - 12/21/18 20:35 Urine color determination YELLOW NRG Urine clarity determination CLEAR NR G Urine pH measurement by test strip 6 5-9 Specific gravity of urine by test strip 1.030 1.016-1.022 Urine protein assay by test strip, semi-quantitative 2+ NEGATIVE Urine glucose detection by automated test strip NE GATIVE NEGATIVE Erythrocytes detection in urine sediment by light micr oscopy 1+ NEGATIVE Urine ketones detection by automated test strip 3+ NEGATIVE Urine nitrite detection by test strip NEGATIVE NEGATIVE Urine total bilirubin detection by test strip NEGA TIVE NEGATIVE Urine urobilinogen measurement by automated test strip (mass/volume) 1 mg/dL NORMAL Urine leukocyte esterase detection by dipstick 1+ NEGATIVE Automated urine sediment erythrocyte cou nt by microscopy (number/high power field) RARE NRG Automated urine sediment leukocyte count by microscopy (number/high power field) [HPF] NRG Bacteria detection in urine sediment by light microsco py FEW NRG Squamous epithelial cells detection in u rine sediment by light microscopy 2-5 NRG Crystals detection in urine sediment by light microsco py PRESENT NRG Casts detection in urine sediment by light microscopy NONE NRG Mucus detection in urine sediment by light microscopy SMALL NRG Complete urinalysis with reflex to culture YES NRG Calcium oxalate crystals detection in ur ine sediment by light microscopy FEW NRG Bacterial urine culture - 12/21/18 20:35 Bacterial urine culture [id number] NRG COLONY COUNT >100,000/ML NRG FTX;REPORTABLE SEE COMMENTS NRG Bacteria identification in genital speci men by aerobe culture - 12/21/18 21:00 QUANTITY OF GROWTH . NRG Bacteria identification in genital specimen by aerobe culture UVF NRG Microscopic examination by wet preparati on - 12/21/18 21:00 WET PREP RESULTS 21:10 BY RT NRG Chlamydia trachomatis DNA detection by p robe and signal amplification method - 12/21/18 21:00 Chlamydia trachomatis DNA detection by p robe and target amplification method Detected Not Detected Neisseria gonorrhoeae DNA detection by p robe and signal amplification method - 12/21/18 21:00 Gonorrhea amp DNA-urine Dectected Not D etected Complete blood count (CBC) with automate d white blood cell (WBC) differential - 12/21/18 21:05 Blood leukocytes automated count (number/volume) 10.0 10*3/uL 4.3-11.0 Blood erythrocytes automated count (number/volume) 4.55 10*6/uL 4.35-5.85 Venous blood hemoglobin measurement (mass/volume) 13.4 g/dL 11.5-16.0 Blood hematocrit (volume fraction) 39 % 35-52 Automated erythrocyte mean corpuscular volume 86 [ foz_us] 80-99 Automated erythrocyte mean corpuscular h emoglobin (mass per erythrocyte) 30 pg 25-34 Automated erythrocyte mean corpuscular h emoglobin concentration measurement (mass/volume) 34 g/dL 32-36 Automated erythrocyte distribution width ratio 13. 5 % 10.0- 14.5 Automated blood platelet count (count/volume) 236 10*3/uL 130-400 Automated blood platelet mean volume measurement 11.2 [foz_us] 7.4-10.4 Automated blood neutrophils/100 leukocytes 72 % 42-75 Automated blood lymphocytes/100 leukocytes 18 % 12-44 Blood monocytes/100 leukocytes 7 % 0-12 Automated blood eosinophils/100 leukocytes 3 % 0-10 Automated blood basophils/100 leukocytes 1 % 0-10 Blood neutrophils automated count (number/volume) 7.2 10*3 1.8-7.8 Blood lymphocytes automated count (number/volume) 1.8 10*3 1.0-4.0 Blood monocytes automated count (number/volume) 0. 7 10*3 0.0-1.0 Automated eosinophil count 0.3 10*3/uL 0 .0-0.3 Automated blood basophil count (count/volume) 0.1 10*3/uL 0.0-0.1 Serum or plasma choriogonadotropin measu rement (units/volume) - 12/21/18 21:05 Serum or plasma choriogonadotropin measurement (units/ volume) 22964 m[iU]/mL <5 CULTURE, GENITAL - 03/04/19 13:12 CULTURE, GENITAL SEE NOTE NRG GC/CHLAMYDIA (SWAB OR URINE)-RAPID - 13:12 CHLAMYDIA TRACHOMATIS RNA, TMA NOT DETECTED NOT DETECTED NEISSERIA GONORRHOEAE RNA, TMA NOT DETECTED NOT DETECTED COMMENT NRG GLUCOSE PINO 1 HOUR - 04/16/19 15:07 GLUCOSE, POSTPRANDIAL/ 1 HOUR 174 mg/dL See Note: CBC - 04/16/19 15:07 WHITE BLOOD CELL COUNT 11.4 Thousand/uL 3.8-10.8 RED BLOOD CELL COUNT 4.10 Million/uL 3.8 0-5.10 HEMOGLOBIN 11.1 g/dL 11.7-15.5 HEMATOCRIT 34.4 % 35.0-45.0 MCV 83.9 fL 80.0-100.0 MCH 27.1 pg 27.0-33.0 MCHC 32.3 g/dL 32.0-36.0 RDW 13.0 % 11.0-15.0 PLATELET COUNT 272 Thousand/uL 140-400 MPV 11.8 fL 7.5-12.5 ABSOLUTE NEUTROPHILS 9052 cells/uL 1500- 7800 ABSOLUTE LYMPHOCYTES 1482 cells/uL 850-3 900 ABSOLUTE MONOCYTES 695 cells/uL 200-950 ABSOLUTE EOSINOPHILS 125 cells/uL 15-500 ABSOLUTE BASOPHILS 46 cells/uL 0-200 NEUTROPHILS 79.4 % NRG LYMPHOCYTES 13.0 % NRG MONOCYTES 6.1 % NRG EOSINOPHILS 1.1 % NRG BASOPHILS 0.4 % NRG SYPHILIS (RPR W/ REFLEX CONFIRMATION) - 04/16/19 15:07 RPR (DX) W/REFL TITER AND CONFIRMATORY TESTING NON-REACTIVE NON-REACTIVE GLUCOSE PINO 3 HOUR - 04/22/19 12:30 TIME 1 FASTING NRG SPECIMEN 1 105 mg/dL 65-99 TIME 2 1 HOUR NRG SPECIMEN 2 262 mg/dL NRG TIME 3 2 HOURS NRG SPECIMEN 3 192 mg/dL NRG TIME 4 3 HOURS NRG SPECIMEN 4 181 mg/dL NRG COMMENT NRG CULTURE, GROUP B STREP (VAGINAL) - 06/11 15:19 STREPTOCOCCUS, GROUP B CULTURE SEE NOTE NRG Blood CBC with ordered manual differenti al panel - 06/19/19 13:25 Blood leukocytes automated count (number/volume) 10.3 10*3/uL 4.3-11.0 Blood erythrocytes automated count (number/volume) 4.88 10*6/uL 4.35-5.85 Venous blood hemoglobin measurement (mass/volume) 12.8 g/dL 11.5-16.0 Blood hematocrit (volume fraction) 40 % 35-52 Automated erythrocyte mean corpuscular volume 82 [ foz_us] 80-99 Automated erythrocyte mean corpuscular h emoglobin (mass per erythrocyte) 26 pg 25-34 Automated erythrocyte mean corpuscular h emoglobin concentration measurement (mass/volume) 32 g/dL 32-36 Automated erythrocyte distribution width ratio 17. 8 % 10.0- 14.5 Automated blood platelet count (count/volume) 218 10*3/uL 130-400 Automated blood platelet mean volume measurement 12.5 [foz_us] 7.4-10.4 Automated blood neutrophils/100 leukocytes 76 % 42-75 Automated blood lymphocytes/100 leukocytes 15 % 12-44 Blood monocytes/100 leukocytes 9 % NRG Automated blood eosinophils/100 leukocytes 2 % 0-10 Automated blood basophils/100 leukocytes 0 % 0-10 Blood neutrophils automated count (number/volume) 7.8 10*3 1.8-7.8 Blood lymphocytes automated count (number/volume) 1.6 10*3 1.0-4.0 Blood monocytes automated count (number/volume) 0. 7 10*3 0.0-1.0 Automated eosinophil count 0.2 10*3/uL 0 .0-0.3 Automated blood basophil count (count/volume) 0.0 10*3/uL 0.0-0.1 Manual blood segmented neutrophils/100 leukocytes 74 % NRG Blood band neutrophils/100 leukocytes 2 % NRG Manual blood lymphocytes/100 leukocytes 15 % NRG Blood anisocytosis detection by light microscopy [facility] Comprehensive metabolic panel - 06/19/19 13:25 Serum or plasma sodium measurement (moles/volume) 136 mmol/L 135-145 Serum or plasma potassium measurement (moles/volume) 3.8 mmol/L 3.6-5.0 Serum or plasma chloride measurement (moles/volume) 106 mmol/L 98-107 Carbon dioxide 19 mmol/L 21-32 Serum or plasma anion gap determination (moles/volume) 11 mmol/L 5-14 Serum or plasma urea nitrogen measurement (mass/volume ) 9 mg/dL 7-18 Serum or plasma creatinine measurement (mass/volume) 0.58 mg/dL 0.60-1.30 Serum or plasma urea nitrogen/creatinine mass ratio 16 NRG Serum or plasma creatinine measurement w ith calculation of estimated glomerular filtration rate > NRG Serum or plasma glucose measurement (mass/volume) 100 mg/dL 70-105 Serum or plasma calcium measurement (mass/volume) 8.7 mg/dL 8.5-10.1 Serum or plasma total bilirubin measurement (mass/volu me) 0.2 mg/dL 0.1-1.0 Serum or plasma alkaline phosphatase susi surement (enzymatic activity/volume) 127 U/L 40-136 Serum or plasma aspartate aminotransfera se measurement (enzymatic activity/volume) 24 U/L 5-34 Serum or plasma alanine aminotransferase measurement (enzymatic activity/volume) 20 U/L 0-55 Serum or plasma protein measurement (mass/volume) 6.4 g/dL 6.4-8.2 Serum or plasma albumin measurement (mass/volume) 3.1 g/dL 3.2-4.5 CALCIUM CORRECTED 9.4 mg/dL 8.5-10.1 Serum or plasma uric acid measurement (m ass/volume) - 06/19/19 13:25 Serum or plasma uric acid measurement (mass/volume) 4.0 mg/dL 2.6-7.2 Serum ragweed IgE antibody assay - 06/18 13:25 Serum ragweed IgE antibody assay 158 U/L 125-220 Urine protein/creatinine mass ratio - 15:25 Urine protein measurement (mass/volume) 15 mg/dL 6-12 Urine creatinine measurement (mass/volume) 70 mg/d L 30-125 Urine protein/creatinine mass ratio 0.21 NRG [id number] - 06/19/19 15:35 [id number] SPECIMEN AVAILABLE NRG Complete urinalysis with reflex to cultu re - 06/24/19 01:35 Urine color determination YELLOW NRG Urine clarity determination CLEAR NR G Urine pH measurement by test strip 6.5 5-9 Specific gravity of urine by test strip 1.025 1.016-1.022 Urine protein assay by test strip, semi-quantitative 2+ NEGATIVE Urine glucose detection by automated test strip TR SHAWN NEGATIVE Erythrocytes detection in urine sediment by light micr oscopy 1+ NEGATIVE Urine ketones detection by automated test strip 1+ NEGATIVE Urine nitrite detection by test strip NEGATIVE NEGATIVE Urine total bilirubin detection by test strip NEGA TIVE NEGATIVE Urine urobilinogen measurement by automated test strip (mass/volume) 1.0 mg/dL < = 1.0 Urine leukocyte esterase detection by dipstick NEG ATIVE NEGATIVE Automated urine sediment erythrocyte cou nt by microscopy (number/high power field) [HPF] NRG Automated urine sediment leukocyte count by microscopy (number/high power field) NONE NRG Bacteria detection in urine sediment by light microsco py FEW NRG Squamous epithelial cells detection in u rine sediment by light microscopy 10-25 NRG Crystals detection in urine sediment by light microsco py PRESENT NRG Casts detection in urine sediment by light microscopy NONE NRG Mucus detection in urine sediment by light microscopy MODERATE NRG Complete urinalysis with reflex to culture NO NRG Calcium oxalate crystals detection in ur ine sediment by light microscopy MODERATE NRG Urine protein/creatinine mass ratio - 01:35 Urine protein measurement (mass/volume) 115 mg/dL 6-12 Urine creatinine measurement (mass/volume) 185 mg/ dL 30-125 Urine protein/creatinine mass ratio 0.62 NRG Capillary blood glucose measurement by g lucometer (mass/volume) - 06/24/19 02:56 Capillary blood glucose measurement by glucometer (mas s/volume) 127 mg/dL 70-110 Encounters ACCT No. Visit Date/Time Discharge Status Pt. Type Provider Facility Loc./Unit Complaint [id number] 09/10/2014 15:31:00 09/10/2014 23:59 :59 CLS Outpatient [facility] RAD [id number] 06/04/2014 17:36:00 06/04/2014 17:36 :00 DIS Outpatient [facility] PANACE [id number] 02/19/2014 16:25:00 02/19/2014 17:20 :00 DIS Inpatient [facility] OBS [id number] 12/03/2013 14:36:00 12/03/2013 14:36 :00 DIS Outpatient [facility] RAD [id number] 11/29/2013 17:45:00 11/29/2013 17:45 :00 DIS Outpatient JACY CORREIA [facility] LAB [id number] 01/19/2014 00:00:00 Document Registration [id number] 01/19/2013 00:00:00 Document Registration [id number] 09/19/2013 13:17:00 09/19/2013 23:59: 59 CLS Outpatient ADDISON ADAMS DDS [id number] 07/25/2013 16:14:00 07/25/2013 23:59: 59 CLS Outpatient LEONARD CHIN DO [id number] 06/12/2013 15:36:00 06/12/2013 23:59: 59 CLS Outpatient JOSE ALEJANDRO TOWNSEND APRN James [id number] 06/12/2013 15:36:00 06/12/2013 23:59: 59 CLS Outpatient JOSE ALEJANDRO TOWNSEND APRN James [id number] 05/27/2013 10:47:00 05/27/2013 23:59: 59 CLS Outpatient GENARO JURADO MD [id number] 04/19/2013 12:45:00 04/19/2013 23:59: 59 CLS Outpatient MORRIS PATHAK [id number] 04/18/2013 15:34:00 04/18/2013 23:59: 59 CLS Outpatient GENARO JURADO MD [id number] 04/18/2013 15:34:00 04/18/2013 23:59: 59 CLS Outpatient GENARO JURADO MD [id number] 04/10/2013 15:35:00 04/10/2013 23:59: 59 CLS Outpatient GENARO JURADO MD [id number] 04/04/2013 09:45:00 04/04/2013 23:59: 59 CLS Outpatient MORRIS PATHAK [id number] 04/02/2013 15:49:00 04/02/2013 23:59: 59 CLS Outpatient GENARO JURADO MD [id number] 03/26/2013 12:39:00 03/26/2013 23:59: 59 CLS Outpatient GENARO JURADO MD [id number] 03/20/2013 15:19:00 03/20/2013 23:59: 59 CLS Outpatient GENARO JURADO MD [id number] 03/08/2013 13:10:00 03/08/2013 23:59: 59 CLS Outpatient MORRIS PATHAK [id number] 03/06/2013 16:00:00 03/06/2013 23:59: 59 CLS Outpatient GENARO JURADO MD [id number] 02/06/2013 15:57:00 02/06/2013 23:59: 59 CLS Outpatient GENARO JURADO MD [id number] 01/23/2013 13:27:00 01/23/2013 23:59: 59 CLS Outpatient JERRI JACKSON APRN [id number] 2013 16:09:00 2013 23:59: 59 CLS Outpatient LEONARD CHIN DO Dania [id number] 2013 16:09:00 2013 23:59: 59 CLS Outpatient GENARO JURADO MD [id number] 12/12/2012 15:59:00 12/12/2012 23:59: 59 CLS Outpatient LEONARD CHIN DO [place]ia [id number] 11/22/2012 10:40:00 11/22/2012 23:59: 59 CLS Outpatient LEONARD CHIN DO [place]ia [id number] 11/14/2012 09:39:00 11/14/2012 23:59: 59 CLS Outpatient LEONARD CHIN DO [place]ia [id number] 11/02/2012 10:39:00 11/02/2012 23:59: 59 CLS Outpatient RICOAugustin JERRI LÓPEZ [id number] 11/07/2012 10:55:00 Document Registration [id number] 11/02/2012 10:39:00 Document Registration [id number] 11/02/2015 18:06:00 Document Registration [id number] 06/24/2019 10:30:00 ACT Outpatient PAULAEMMYAURELIA Macias [facility] [id number] 06/12/2019 14:20:00 Document Registration [id number] 04/22/2019 09:20:00 Document Registration [id number] 04/16/2019 14:00:00 Document Registration [id number] 03/04/2019 10:40:00 Document Registration [id number] 12/13/2018 13:00:00 Document Registration [id number] 11/15/2018 14:00:00 Document Registration [id number] 06/13/2018 15:00:00 Document Registration [id number] 01/24/2018 09:00:00 Document Registration [id number] 07/11/2017 13:20:00 Document Registration [id number] 04/04/2017 11:00:00 Document Registration [id number] 12/29/2016 11:00:00 Document Registration [id number] 11/01/2016 11:45:00 Document Registration [id number] 11/04/2016 11:08:00 Document Registration [id number] 06/24/2019 01:26:00 020 03:35:00 DIS Outpatient [facility] [id number] 06/19/2019 15:10:00 17:00:00 DIS Outpatient RHIANNON POLANCO, GENARO Pulido [facility] WSo ELV LEVELS [id number] 05/06/2019 12:49:00 14:55:00 DIS Outpatient MELISSA BAEZ MD [facility] WSo CONTRACTIONS [id number] 12/21/2018 20:22:00 21:22:00 DIS Emergency ROSA 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 [facility] ER 11 WEEKS PREG,VAGINAL D ISCHARGE [id number] 11/05/2018 11:19:00 11:42:00 DIS Outpatient BRENDA ADAMS DO [facility] ER POSITIVE TEST [id number] 09/02/2018 20:17:00 23:36:00 DIS Emergency CURTIS GOMEZ MD [facility] ER UTI [id number] 07/21/2018 11:52:00 13:05:00 DIS Emergency CHARLINE, CRISTINA [facility] ER VOMITING / RECTAL BLEED ING [id number] 07/04/2018 22:05:00 14:18:00 DIS Inpatient MELISSA BAEZ MD [facility] ICU DRUG OVERDOSE;SUICIDE A TTEMPT [id number] 03/19/2018 19:57:00 21:44:00 DIS Emergency BERNOT, CRISTINA [facility] ER BEAT UP BY BOYFRIEND [id number] 12/07/2017 19:16:00 23:10:00 DIS Emergency BRENDA ADAMS DO a [facility] ER OVERDOSE [id number] 12/03/2017 13:58:00 15:10:00 DIS Emergency BERNOT, CRISTINA [facility] ER HEAVY VAGINAL BLEEDING [id number] 09/10/2017 17:49:00 18:15:00 DIS Emergency LEXX SÁNCHEZ MD [facility] ER FEVER,BACK PAIN,THROAT PAIN [id number] 07/25/2017 16:37:00 018 17:51:00 DIS Emergency ROSA ESTEVEZ APRN [facility] ER VOMITING [id number] 03/09/2017 10:00:00 018 23:59:59 CLS Preadmit BAILEY NIKOS V ia [facility] CARD NAUSEA AND VOMITTING [id number] 02/23/2017 08:56:00 018 23:59:59 CLS Outpatient DURAN KENNY PICHARDO D [facility] RAD NAUSEA AND VOMITTING [id number] 01/25/2017 07:27:00 017 23:59:59 CLS Preadmit DURAN KENNY PICHARDO D [facility] CARD NAUSEA AND VOMITTING [id number] 01/14/2017 22:35:00 017 00:25:00 DIS Emergency BRENDA ADAMS DO [facility] ER VOMITING [id number] 12/27/2016 20:31:00 017 21:26:00 DIS Emergency ANASTACIA LAM [facility] ER SORE THROAT [id number] 12/11/2016 16:29:00 017 18:07:00 DIS Emergency CURTIS GOMEZ MD [facility] ER ABD PAIN/N/V [id number] 11/29/2016 18:07:00 017 20:29:00 DIS Emergency ROSA ESTEVEZ APRN [facility] ER ABDOMINAL PAIN,VOMITING [id number] 09/25/2016 17:11:00 017 18:47:00 DIS Emergency ANASTACIA LAMP [facility] ER R ARMPIT LUMP/PAIN [id number] 08/22/2016 20:41:00 017 22:00:00 DIS Emergency BRENDA ADAMS DO [facility] ER FEVER/STOMACH PAIN [id number] 08/06/2016 21:44:00 017 00:03:00 DIS Emergency ANGIE BRENDA PICHARDO [facility] ER R SIDE AND BACK PAIN [id number] 08/01/2016 14:39:00 017 16:08:00 DIS Emergency ROSA ESTEVEZ APRN [facility] ER RUQ PAIN [id number] 07/15/2016 00:30:00 017 01:59:00 DIS Emergency ANGIE BRENDA PICHARDO [facility] ER ABD PAIN [id number] 06/14/2016 22:59:00 017 02:08:00 DIS Emergency GEORGINA DIAZ MD [facility] ER VOMITING [id number] 03/24/2016 09:43:00 017 10:46:00 DIS Emergency ROSA ESTEVEZ APRN [facility] ER POSS INSECT BITE LEFT E YE SWOLLEN/KNOTS ON FACE [id number] 02/23/2016 12:54:00 017 14:09:00 DIS Emergency CURTIS GOMEZ MD [facility] ER FACIAL SWELLING VOMITING [id number] 01/19/2016 20:02:00 016 21:20:00 DIS Emergency ANGIE PICHARDO BRENDA Najera Yesika james [facility] ER BREASTS SWELLING/LEAKIN G FLUID [id number] 10/15/2015 19:25:00 016 21:19:00 DIS Emergency CURTIS GOMEZ MD [facility] ER PSYCH EVAL [id number] 10/08/2015 18:34:00 016 19:43:00 DIS Emergency GEORGINA DIAZ MD [facility] ER ANXIETY [id number] 09/23/2015 16:37:00 016 18:22:00 DIS Emergency ROSA ESTEVEZ APRN [facility] ER LEFT ARM INJ [id number] 08/08/2015 15:14:00 016 17:21:00 DIS Emergency NEVILLE FLOWERS [facility] ER STOMACH PAIN [id number] 07/12/2015 18:06:00 016 20:33:00 DIS Emergency ROSA ESTEVEZ APRN [facility] ER VOMITING/FEELING HOT/AB D PAIN [id number] 06/13/2014 20:10:00 015 21:27:00 DIS Emergency ANGIE BRENDA Dania Napoles a [facility] ER LT ANKLE PAIN [id number] 04/09/2013 15:36:00 014 00:01:00 DIS Outpatient GENARO JURADO MD [facility] RAD POOR GROWTH [id number] 06/01/2013 21:35:00 00:23:00 DIS Emergency GEORGINA DIAZ MD [facility] ER DIZZY;HEADACHE [id number] 04/23/2013 20:26:00 014 11:25:00 DIS Inpatient GENARO JURADO MD [facility] WS INDUCTION [id number] 04/04/2013 18:02:00 18:48:00 DIS Outpatient [facility] [id number] 03/24/2013 19:59:00 21:55:00 DIS Outpatient GENARO JURADO MD [facility] WSo CONTRACTIONS [id number] 03/22/2013 13:00:00 23:59:59 CLS Outpatient GENARO JURADO MD [facility] RAD F/U GROWTH [id number] 03/14/2013 11:48:00 23:59:59 CLS Outpatient JOSE ALEJANDRO TOWNSEND APRN [facility] LAB DIABETES SCREENING [id number] 02/27/2013 10:19:00 12:23:00 DIS Outpatient GENARO JURADO MD [facility] WSo LOW ABD PAIN [id number] 02/15/2013 13:33:00 23:59:59 CLS Outpatient GENARO JURADO MD [facility] RAD DECREASED FUNDAL HEIGHT [id number] 02/15/2013 01:11:00 03:45:00 DIS Outpatient GENARO JURADO MD [facility] WSo ABD PAIN [id number] 11/30/2012 12:12:00 23:59:59 CLS Outpatient LEONARD CHIN DO [facility] RAD ABNORMAL TETRA SCREEN F OR NEURAL TUBE DEFECT [id number] 07/09/2013 15:15:00 Document Registration
[2019-06-25] MEDS ORDERED: BUPIVACAINE 0.25% 30 ML (SENSORCAINE) VIAL ONE (21:40)
[2019-06-25] MEDS ORDERED: fentaNYL INJECTION 100 MCG/2 ML AMP IVP PRN (21:45)
[2019-06-25] MEDS ORDERED: CATHETER FLUSH 10 ML SYR IV SCH (22:00)
[2019-06-25] MEDS: EPIDURAL (fentaNYL 2 MCG/ML BUPIVA 0.125%)100 ML BAG EPI SCH (22:12)
[2019-06-25] MEDS ORDERED: fentaNYL 2 mcg/ml BUPIVA 0.125 100 ML IV SCH (22:20)
[2019-06-25] MEDS ORDERED: LACTATED RINGERS 1,000 ML IV ONE (22:20)
[2019-06-25] MEDS ORDERED: CATHETER FLUSH 10 ML SYR IV PRN (22:30)
[2019-06-25] MEDS ORDERED: NALOXONE 0.4 MG/ML 1 ML (NARCAN) VIAL IV PRN (22:30)
[2019-06-25] MEDS ORDERED: LIDOCAINE/EPI 2% 1:200,00 (XYLOCAINE) 20 ML VIAL ONE (22:45)
[2019-06-26] VITALS (72 sets, daily range): BP systolic 104–148; BP diastolic 57–105
[2019-06-26] MEDS: LACTATED RINGERS 1,000 ML IV SCH ×2 (03:40→11:04)
[2019-06-26] MEDS: EPIDURAL (fentaNYL 2 MCG/ML BUPIVA 0.125%)100 ML BAG EPI SCH (07:16)
[2019-06-26] MEDS ORDERED: CALCIUM CARBONATE 500 MG (TUMS) TAB.CHEW ONE (07:59)
[2019-06-26] MEDS ORDERED: CALCIUM CARBONATE 500 MG (TUMS) TAB.CHEW PO ONE (08:15)
[2019-06-26] MEDS ORDERED: fentaNYL INJECTION 100 MCG/2 ML AMP ONE (08:43)
[2019-06-26] MEDS ORDERED: LIDOCAINE PF 2% 5 ML (XYLOCAINE) VIAL ONE (08:43)
[2019-06-26] MEDS ORDERED: OXYTOCIN PRE-MIX DRIP 500 ML IV ONE (09:26)
[2019-06-26] MEDS ORDERED: MINERAL OIL CONCENTRATE 99.9% 15 ML UDC ONE (09:27)
[2019-06-26] MEDS: ONDANSETRON 4 MG/2 ML (SDV) Z0FRAN IVP PRN (09:38)
--- NOTE | 2019-06-26 09:58 | History & Physical-OB ---
OB - Chief Complaint & HPI Date/Time Date of Admission: Date of Admission: June 25, 2019 at 18:52 Date seen by a Provider: June 26, 2019 Time Seen by a Provider: 07:35 Chief Complaint/History OB-Reason for Admission/Chief: Induction of Labor Hx : 2 Hx Para: 1 Expected Date of Delivery: July 10, 2019 Gestational Age in Weeks: 38 Gestational Age in Days: 0 Indication for induction: medical complication (GDMA2 with moderate control, proteinuria) History of Labs A+, antibody neg, RI. GC positive, treated and retest neg. Chlamydia neg. HIV/HepB/RPR NR. GBS neg. Allergies and Home Medications Allergies Coded Allergies: No Known Drug Allergies (Unverified , 09/02/18) Home Medications Famotidine 20 Mg Tablet, 20 MG PO DAILY, (Reported) Metformin HCl 1,000 Mg Tablet, 1,000 MG PO BID, (Reported) Vit/Iron Fumarate/FA 1 Each Tablet, 1 EACH PO DAILY, (Reported) Patient Home Medication List Home Medication List Reviewed: Yes OB - History Hx of Present Care: Yes Ultrasounds: Normal mid trimester US Obstetrical Complications: Gestational Diabetes Information Induced Hypertension: No Maternal Gestational Diabetes: Yes Hemorrhage: No Obstetrical History Hx : 2 Hx Para: 1 Hx # Term Pregnancies: 1 Hx # Pregnancies: 0 Number of Living Children: 1 Hx Termination: No Hx Total # of Abortions (Spona: 0 Hx Multiple Gestation: No Hx Ectopic : No Hx Stillbirth: No Hx Complication: No Hx Induced Hypertens: No Hx Maternal Gestational Diabet: Yes Hx Hemorrhage: No Delivery History Hx Dystocia: No Hx Forceps Assisted Delivery: No Hx Vacuum Extraction Assisted: No Hx Placenta Abnormality: No Hx Distress: No Hx Large For Gestational Age I: No Hx Small for Gestational Age I: No Hx Section: No Hx Vaginal Delivery Post C-Sec: No Hx Blood Disorders: No Adverse Rxn to Tranfusion: No Patient Past Medical History PMHx: Depression IBS SurgHx: Hernia repair as an infant Social History/Family History HIV/AIDS: No Recent Infectious Disease Expo: No Sexually Transmitted Disease: No Alcohol Use: Denies Use Recreational Drug Use: No Smoking Cessation: Never smoker 2nd Hand Smoke Exposure: No Immunizations Hepatitis A: Yes Hepatitis B: Yes Tetanus Booster (TDap): Less than 5yrs (05/01/2019) Date of Influenza Vaccine: Dec 21, 2012 Rubella: immune RPR/VDRL: Negative GBS Status: Negative HBsAG: Negative OB - Admission Exam Physical Exam Vitals: Vital Signs 06/26/19 06/26/19 07:00 07:19 Temp 36.8 Pulse 87 Resp 18 B/P (MAP) 138/76 (96) Pulse Ox 99 O2 Delivery Room Air HEENT: NCAT Abdomen: Non tender Extremities: Edema Cervical Dilatation: 5cm Effacement: 50% Station: -3 Heart Rate: 120's Accelerations: Accelerations Present Decelerations: No Decelerations Short Term Variability: Present Long-Term Variability: Average (6-25) Contractions on Admission: 6-10 Minutes Apart Labs Laboratory Tests Test 06/25/19 19:35 06/26/19 07:59 Range/Units White Blood Count 11.2 H 4.3-11.0 10^3/uL Red Blood Count 4.77 4.35-5.85 10^6/uL Hemoglobin 12.5 11.5-16.0 G/DL Hematocrit 39 35-52 % Mean Corpuscular Volume 82 80-99 FL Mean Corpuscular Hemoglobin 26 25-34 PG Mean Corpuscular Hemoglobin Concent 32 32-36 G/DL Red Cell Distribution Width 17.9 H 10.0-14.5 % Platelet Count 246 130-400 10^3/uL Mean Platelet Volume 12.7 H 7.4-10.4 FL Neutrophils (%) (Auto) 78 H 42-75 % Lymphocytes (%) (Auto) 14 12-44 % Monocytes (%) (Auto) 7 0-12 % Eosinophils (%) (Auto) 1 0-10 % Basophils (%) (Auto) 0 0-10 % Neutrophils # (Auto) 8.7 H 1.8-7.8 X 10^3 Lymphocytes # (Auto) 1.6 1.0-4.0 X 10^3 Monocytes # (Auto) 0.8 0.0-1.0 X 10^3 Eosinophils # (Auto) 0.1 0.0-0.3 10^3/uL Basophils # (Auto) 0.0 0.0-0.1 10^3/uL Glucometer 70 70-110 MG/DL OB - Assessment/Plan/Diagnosis Assessment Assessment: induction of labor Admission Dx Gestational diabetes 38 weeks gestation Proteinuria Induction of labor Admission Status: Inpatient Order (span 2 midnights) Reason for Inpatient Admission: Induction, labor, delivery and course Plan Plan: Induction Induction Method: per Misoprostol Protocol Other Plan Glucose 70 this am, recheck in 2 hours AROM done with clear fluid GENARO JURADO MD June 26, 2019 09:58
[2019-06-26] MEDS ORDERED: OXYTOCIN PRE-MIX DRIP 500 ML IV SCH ×2 (10:29→15:30)
[2019-06-26] MEDS ORDERED: LIDOCAINE/EPI 2% 1:200,00 (XYLOCAINE) 20 ML VIAL INJ ONE (10:45)
[2019-06-26] MEDS ORDERED: MINERAL OIL CONCENTRATE 99.9% 15 ML UDC TOP PRN (10:45)
--- NOTE | 2019-06-26 14:10 | OB Labor & Delivery Record ---
Vag Delivery Note Vag Delivery Note Date of Delivery: 06/26/19 Preoperative Diagnosis: Sheyla Guevara is a 24 /Para 2 / 1,Gestational Age (wks)38with 0 days with GDMA2 and proteinuria Postoperative Diagnosis: Same Surgeon: GENARO JURADO Anesthesia: Epidural Delivery Type: Spontaneous vaginal Findings: Viable male infant, apgars 7/9, weight 6#13 Lacerations: None Intact placenta with 3 vessel cord. No nuchal cord, body cord or shoulder dystocia Estimated Blood Loss: 100 ml Complications: None Condition: Stable Description of Procedure: The patient is a 24 year old female who presented for IOL for GDMA2 and proteinuria. She was admitted and informed consent was obtained. Her labor course was unremarkable. She progressed to complete dilatation and began to push. She was then set up for delivery. The 's head was delivered atraumatically in the SAEED position. The shoulders and remainder of the infant's body were then delivered without difficulty. Upon delivery, the infant was vigorous and placed on maternal abdomen. The cord was doubly clamped and cut and the infant was handed off to the pediatric staff. An intact placenta with 3-vessel cord delivered via Korina and there was found to be minimal bleeding.~ Vigorous fundal massage was performed and the fundus was found to be firm. IV oxytocin was given. Examination of the vagina and perineum revealed no lacerations. Following the delivery, sponge, instrument and needle counts were correct. Mom and baby were both in stable condition in the labor suite. Vitals - Labs Vital Signs - I&O Vital Signs Date Time Temp Pulse Resp B/P (MAP) Pulse Ox O2 Delivery O2 Flow Rate FiO2 06/26/19 07:19 36.8 87 18 99 Room Air 06/26/19 07:00 87 18 138/76 (96) 99 06/26/19 06:45 67 18 125/64 (84) 97 06/26/19 06:30 68 18 121/60 (80) 97 06/26/19 06:15 70 18 117/64 (81) 97 06/26/19 06:00 74 18 120/67 (84) 98 06/26/19 05:45 75 18 135/63 (87) 97 06/26/19 05:30 36.8 75 18 120/57 (78) 98 06/26/19 05:15 69 18 121/59 (79) 98 06/26/19 05:00 73 18 127/62 (83) 97 06/26/19 04:45 73 18 127/62 (83) 97 06/26/19 04:30 73 18 127/62 (83) 97 20 04:15 72 18 133/65 (87) 97 06/26/19 04:00 74 18 131/65 (87) 98 06/26/19 03:45 67 18 134/67 (89) 97 06/26/19 03:30 69 18 120/60 (80) 97 06/26/19 03:15 72 18 130/65 (86) 98 06/26/19 03:00 75 18 128/64 (85) 98 06/26/19 02:45 71 18 125/60 (81) 97 06/26/19 02:30 73 18 123/59 (80) 98 06/26/19 02:15 75 18 132/61 (84) 97 06/26/19 02:00 78 18 119/66 (83) 97 06/26/19 01:45 80 18 121/68 (85) 97 06/26/19 01:30 88 18 139/67 (91) 97 06/26/19 01:15 88 18 129/67 (87) 97 06/26/19 01:15 83 18 127/67 (87) 97 06/26/19 01:00 86 18 125/82 (96) 97 06/26/19 00:45 94 18 137/77 (97) 98 06/26/19 00:30 37.1 91 18 121/73 (89) 97 06/26/19 00:15 86 18 124/68 (86) 98 06/26/19 00:00 82 18 124/76 (92) 98 06/25/19 23:45 95 18 127/72 (90) 97 06/25/19 23:30 85 18 140/86 (104) 98 06/25/19 23:15 92 18 127/80 (96) 98 06/25/19 23:00 37.0 93 18 135/76 (95) 97 06/25/19 22:45 105 18 145/85 (105) 99 06/25/19 22:40 120 18 144/89 (107) 99 06/25/19 22:35 102 18 144/82 (102) 90 06/25/19 22:30 110 18 152/79 (103) 100 06/25/19 22:27 100 18 157/88 (111) 100 06/25/19 22:24 125 18 141/76 (97) 99 06/25/19 22:21 122 18 148/75 (99) 99 06/25/19 22:18 120 18 147/76 (99) 99 06/25/19 22:15 111 18 138/73 (94) 98 06/25/19 22:12 115 18 137/76 (96) 98 06/25/19 22:00 83 18 135/92 (106) 99 06/25/19 21:00 86 18 130/85 (100) 97 06/25/19 20:00 36.6 90 18 136/81 (99) 99 I & O 06/26/19 07:00 Intake Total 2000 ml Balance 2000 ml Labs Laboratory Tests 06/25/19 19:35: White Blood Count 11.2H, Red Blood Count 4.77, Hemoglobin 12.5, Hematocrit 39, Mean Corpuscular Volume 82, Mean Corpuscular Hemoglobin 26, Mean Corpuscular Hemoglobin Concent 32, Red Cell Distribution Width 17.9H, Platelet Count 246, Mean Platelet Volume 12.7H, Neutrophils (%) (Auto) 78H, Lymphocytes (%) (Auto) 14, Monocytes (%) (Auto) 7, Eosinophils (%) (Auto) 1, Basophils (%) (Auto) 0, Neutrophils # (Auto) 8.7H, Lymphocytes # (Auto) 1.6, Monocytes # (Auto) 0.8, Eosinophils # (Auto) 0.1, Basophils # (Auto) 0.0 06/26/19 07:59: Glucometer 70 06/26/19 10:05: Glucometer 85 GENARO JURADO MD June 26, 2019 14:10
[2019-06-26] MEDS ORDERED: WITCH HAZEL(TUCKS) 40 EA JAR TOP PRN (15:30)
[2019-06-26] MEDS ORDERED: BENZOCAINE/MENTHOL (DERMOPLAST) 60 ML CAN TP PRN (15:30)
[2019-06-26] MEDS: IBUPROFEN 600 MG (MOTRIN) TAB PO SCH ×2 (15:53→21:06)
--- NOTE | 2019-06-26 16:00 | NUR ---
TRANSFERRED TO ROOM 311 VIA W/C ACC BY THIS RN WITH MOTHER -IN-LAW PUSHING INFANT IN OPEN CRIB. ASSISTED TO BED. ORIENTED TO SURROUNDINGS, CALL LIGHT OPERATION, ROOM SERVICE AND DIETARY NUMBER. FF U/1. VAG FLOW LR BRITTRA.
--- NOTE | 2019-06-26 18:00 | NUR ---
EATING DINNER. OFFERS NO COMPLAINTS. VOIDING WITHOUT PROBLEMS.
--- NOTE | 2019-06-26 19:30 | NUR ---
RN to room, pt changing infants diaper. plan of care reviewed.
[2019-06-26] MEDS: DOCUSATE SODIUM 100 MG (COLACE) CAP PO SCH (21:06)
--- NOTE | 2019-06-26 21:10 | NUR ---
Pt out of shower, fresh ice given per pt's request. family remains at bedside.
[2019-06-26] MEDS ORDERED: CATHETER FLUSH 10 ML SYR IV SCH (22:00)
[2019-06-27 00:16] VITALS: BP 120/76
--- NOTE | 2019-06-27 00:17 | NUR ---
PT SITTING UP IN BED, VSS, DISCUSSED SAFE SLEEP PRACTICES WITH MOTHER, ALONE, ON BACK, AND IN CRIB. MOTHER VERBALIZED UNDERSTANDING. SANDWICH TRAY GIVEN PER REQUEST. DISCUSSED FASTING BLOOD SUGAR IN MORNING WITH PT. PT TO NOT HAVE ANYTHING ELSE AFTER THIS.
[2019-06-27 03:39] VITALS: BP 119/74
[2019-06-27] MEDS: IBUPROFEN 600 MG (MOTRIN) TAB PO SCH ×3 (03:39→14:35)
[2019-06-27 06:17] LABS: BASOPHILS % (AUTO) 0 % (0-10); EOSINOPHILS # (AUTO) 0.3 10^3/uL (0.0-0.3); EOSINOPHILS % (AUTO) 2 % (0-10); HEMATOCRIT 40 % (35-52); HEMOGLOBIN 12.5 G/DL (11.5-16.0); LYMPHOCYTES % (AUTO) 15 % (12-44); MEAN CORPUSCULAR HEMOGLOBIN 26 PG (25-34); MEAN CORPUSCULAR HGB CONC 31 G/DL (32-36); MEAN CORPUSCULAR VOLUME 82 FL (80-99); MEAN PLATELET VOLUME 12.7 FL (7.4-10.4); MONOCYTES # (AUTO) 1.3 X 10^3 (0.0-1.0); MONOCYTES % (AUTO) 9 % (0-12); NEUTROPHILS % (AUTO) 73 % (42-75); PLATELET COUNT 206 10^3/uL (130-400); RED CELL DISTRIBUTION WIDTH 17.5 % (10.0-14.5); WHITE BLOOD COUNT 13.6 10^3/uL (4.3-11.0)
[2019-06-27 09:49] VITALS: BP 110/66
--- NOTE | 2019-06-27 09:49 | NUR ---
initial shift assessment completed, see interventions for further.
[2019-06-27] MEDS: DOCUSATE SODIUM 100 MG (COLACE) CAP PO SCH (09:51)
--- NOTE | 2019-06-27 10:19 | NUR ---
dismissal orders received. here.
[2019-06-27] MEDS ORDERED: IBUP-844 PO (10:20)
--- NOTE | 2019-06-27 10:24 | Short Stay Summary ---
Discharge Summary Hospital Course Problems/Dx: (1) 38 weeks gestation of (2) Vaginal delivery (3) Gestational diabetes mellitus (GDM) (4) Proteinuria affecting in third trimester Final Diagnosis: see problem list Hospital Course Date of Admission: June 25, 2019 at 18:52 Admission Diagnosis : see problem list Family Physician/Provider: Rajesh Date of Discharge: 06/27/19 Discharge Diagnosis: see Problem List Hospital Course: Blood sugars normal during labor. Normal post- course. Labs and Pending Lab Test: Laboratory Tests 06/27/19 05:34: White Blood Count 13.6H, Red Blood Count 4.87, Hemoglobin 12.5, Hematocrit 40, Mean Corpuscular Volume 82, Mean Corpuscular Hemoglobin 26, Mean Corpuscular Hemoglobin Concent 31L, Red Cell Distribution Width 17.5H, Platelet Count 206, Mean Platelet Volume 12.7H, Neutrophils (%) (Auto) 73, Lymphocytes (%) (Auto) 15, Monocytes (%) (Auto) 9, Eosinophils (%) (Auto) 2, Basophils (%) (Auto) 0, Neutrophils # (Auto) 10.0H, Lymphocytes # (Auto) 2.0, Monocytes # (Auto) 1.3H, Eosinophils # (Auto) 0.3, Basophils # (Auto) 0.0, Glucose Level 76 06/27/19 05:51: Glucometer 78 Home Meds Active Reported Metformin HCl 1,000 Mg Tablet 1,000 Mg PO BID 60 Days Acid Rigging Worker (FAMOTIDINE) (Famotidine) 20 Mg Tablet 20 Mg PO DAILY Tablet ( Vit/Iron Fumarate/FA) 1 Each Tablet 1 Each PO DAILY Assessment/Pt Instructions Follow up with Dr. Mena in 6 weeks. May discontinue Metformin at this time. Will need Glucose Tolerance test done post-. Discharge Instructions Discharge Diet: No Restrictions Discharge Physical Examination General Appearance: Alert, Oriented X3, Cooperative Psych/Mental Status: Mood NL Allergies: Coded Allergies: No Known Drug Allergies (Unverified , 09/02/18) Discharge Summary Date of Admission June 25, 2019 at 18:52 Date of Discharge Clinical Quality Measures DVT/VTE Risk/Contraindication: Risk Factor Score Per Nursin RFS Level Per Nursing on Admit: 1=Low/No VTE PPX LEONARD CHIN DO June 27, 2019 10:24
--- NOTE | 2019-06-27 12:57 | NUR ---
CM/SS: Visited with pt as to how she is doing from a mental health standpoint as per consult based on history of drug overdose. Plan: Pt to return home with baby when medically able. Summary: Pt is sitting in bed talking with a friend ( mother of the dad of baby). She reports having a pretty good day. Pt reports having had services in place place prior the of this child. Post depression is discussed, and her mood. No feelings of depression or being suicidal at this time. 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 She does admit to having depression and anxiety as well as having been suicidal in the past. She reports she has times where she just shuts down and does not participate in services. She is encouraged to let people know when she is feeling that way. She verbalizes understanding. She does state that the father of the baby is not involved, and does not seem to be tuned in to the baby at this time. She does indicate that her mother is also a support to her. She is encouraged to utilize her supports. She is commended for graduating from high school, as a young mom. She is wished well with her new child.
--- NOTE | 2019-06-27 14:42 | NUR ---
dismissal instructions given, verbalizes understanding. reviewed follow up appointments and dismissal Rx's. signature page signed, placed on chart.
--- NOTE | 2019-06-27 15:05 | Anesthesia-Regional Post-Op ---
Regional Patient Condition Mental Status: Alert, Oriented x3 Circulation: Same as Pre-Op Headache: Absent Sensation: Full Recovery Motor Block: Absent Post Op Complications Complications None Follow Up Care/Instructions Patient Instructions None needed. Anesthesia/Patient Condition Patient is doing well, no complaints, stable vital signs, no apparent adverse anesthesia problems. She states this epidural didn't work as well as her previous epidural, but had no other complaints. PADMINI BLAS DO June 27, 2019 15:04
--- NOTE | 2019-06-27 15:30 | NUR ---
pt ambulated to private vehicle with this RN and @ side. infant secured in rear facing car seat. pt stable with no sx's of distress noted.
[2019-06-27 15:37] VITALS: BP 100/64
== END 2019-06-27 15:30 | disposition home or self-care (01) | DRG 807 ==
LOC: LDRP 18:52
PROVIDERS: ADMIT Family Medicine; ATTEND Family Medicine
PROC: 3E0P7VZ Introduction of Hormone into Female Reproductive, Via Natural or Artificial Opening (ICD-10-PCS; 2019-06-25)
PROC: 10E0XZZ Delivery of Products of Conception, External Approach (ICD-10-PCS; principal; 2019-06-26)
DX: O24.425 Gestational diabetes mellitus in childbirth, controlled by oral hypoglycemic drugs (principal); O12.14 Gestational proteinuria, complicating childbirth; Z37.0 Single live birth; Z3A.38 38 weeks gestation of pregnancy
CPT/HCPCS: 36415; 82947; 82962; 85025; 86780; 86850; 86900; 86901

== ENCOUNTER 2019-08-16 00:13 | Emergency (ER) | payer MEDICAID ==
[~2019-08-16] VITALS: Ht 163 cm; Wt 74.7 kg
[~2019-08-16 00:13] MED LIST changes: +IBUP-844 PO
[2019-08-16] MEDS ORDERED: LACTATED RINGERS 1,000 ML IV ONE ×2 (00:45→00:49)
[2019-08-16] MEDS ORDERED: ACETAMINOPHEN 500 MG TAB (TYLENOL) ONE (00:45)
[2019-08-16 00:57] LABS: BASOPHILS % (AUTO) 0 % (0-10); EOSINOPHILS # (AUTO) 0.1 10^3/uL (0.0-0.3); EOSINOPHILS % (AUTO) 1 % (0-10); HEMATOCRIT 43 % (35-52); HEMOGLOBIN 14.1 G/DL (11.5-16.0); LYMPHOCYTES # (AUTO) 1.1 X 10^3 (1.0-4.0); LYMPHOCYTES % (AUTO) 13 % (12-44); MEAN CORPUSCULAR HEMOGLOBIN 28 PG (25-34); MEAN CORPUSCULAR HGB CONC 33 G/DL (32-36); MEAN CORPUSCULAR VOLUME 83 FL (80-99); MEAN PLATELET VOLUME 11.4 FL (7.4-10.4); MONOCYTES # (AUTO) 0.8 X 10^3 (0.0-1.0); MONOCYTES % (AUTO) 10 % (0-12); NEUTROPHILS # (AUTO) 6.5 X 10^3 (1.8-7.8); NEUTROPHILS % (AUTO) 76 % (42-75); PLATELET COUNT 199 10^3/uL (130-400); RED CELL DISTRIBUTION WIDTH 15.5 % (10.0-14.5); WHITE BLOOD COUNT 8.6 10^3/uL (4.3-11.0)
[2019-08-16] MEDS ORDERED: ACETAMINOPHEN 500 MG TAB (TYLENOL) PO ONE (01:00)
[2019-08-16 01:06] LABS: ALBUMIN 4.2 GM/DL (3.2-4.5); CHLORIDE 105 MMOL/L (98-107); POTASSIUM 3.3 MMOL/L (3.6-5.0); SODIUM 139 MMOL/L (135-145)
[2019-08-16 01:07] LABS: CALCIUM 9.3 MG/DL (8.5-10.1)
[2019-08-16 01:09] LABS: GLUCOSE 104 MG/DL (70-105); TOTAL PROTEIN 7.6 GM/DL (6.4-8.2)
[2019-08-16 01:10] LABS: BILIRUBIN,TOTAL 0.2 MG/DL (0.1-1.0); CARBON DIOXIDE 21 MMOL/L (21-32)
[2019-08-16 01:12] LABS: ALKALINE PHOSPHATASE 106 U/L (40-136); CREATININE SERUM 0.77 MG/DL (0.60-1.30); GFR ESTIMATED > 60
[2019-08-16 01:13] LABS: BUN/CREATININE RATIO 12
[2019-08-16 01:15] LABS: ALANINE AMINOTRANSFERASE 16 U/L (0-55)
--- NOTE | 2019-08-16 01:21 | ED Cough/URI ---
General Chief Complaint: Fever-Adult/Adol Stated Complaint: FEVER,JARA,CHILLS,SORE THROAT Nursing Triage Note: patient reports fever with sore throat. Sepsis Screen: No Definite Risk Source: patient Exam Limitations: no limitations History of Present Illness Date Seen by Provider: Aug 16, 2019 Time Seen by Provider: 00:45 Initial Comments Patient presents ER by private conveyance from home with chief complaint of one day of fever Tmax of 99, chills, malaise bodyaches headache sore throat but no cough or shortness of breath. She has exposure last week to her aunt who got tested a couple days ago for COVID-19 but they don't have the results yet. She is currently breast-feeding. She does not smoke cigarettes but has a history of asthma. Allergies and Home Medications Allergies Coded Allergies: No Known Drug Allergies (Unverified , 09/02/18) Home Medications Ibuprofen 600 Mg Tablet, 600 MG PO Q6H PRN for CRAMPS Prescribed by: LEONARD CHIN on 06/27/19 1020 Vit/Iron Fumarate/FA 1 Each Tablet, 1 EACH PO DAILY, (Reported) Patient Home Medication List Home Medication List Reviewed: Yes Review of Systems Review of Systems Constitutional: No chills, No diaphoresis EENTM: nose congestion, throat pain; No ear discharge, No ear pain Respiratory: No cough, No short of breath Cardiovascular: No chest pain, No palpitations Gastrointestinal: No abdominal pain, No constipation, No diarrhea, No nausea, No vomiting Genitourinary: No discharge, No dysuria Musculoskeletal: No back pain, No joint pain Psychiatric/Neurological: Denies Anxiety, Denies Depressed All Other Systems Reviewed Negative Unless Noted: Yes Past Fwyduwv-Zknuhl-Zapzwo Hx Patient Social History Alcohol Use: Denies Use Recreational Drug Use: No Drug of Choice: MARIJUANA in past Smoking Status: Former Smoker Type Used: Cigarettes 2nd Hand Smoke Exposure: No Recent Foreign Travel: No Contact w/Someone Who Travel: No Recent Infectious Disease Expo: No Recent Hopitalizations: No Immunizations Up To Date Tetanus Booster (TDap): Less than 5yrs PED Vaccines UTD: Yes Date of Influenza Vaccine: Dec 21, 2012 Seasonal Allergies Seasonal Allergies: No Past Medical History Abdominal Respiratory: Yes Asthma Currently Using CPAP: No Currently Using BIPAP: No Cardiac: No Neurological: No Reproductive Disorders: No Female Reproductive Disorders: Denies Sexually Transmitted Disease: No HIV/AIDS: No Genitourinary: No Bladder Infection Gastrointestinal: No Abdominal Hernia, Irritable Bowel Musculoskeletal: No Endocrine: No HEENT: No Cancer: No Psychosocial: No ADD/ADHD, Anxiety, Suicide Attempts, Bipolar, Depression Integumentary: No Eczema Blood Disorders: No Adverse Reaction/Blood Tranf: No Family Medical History No Family History of: Alcoholism Cancer Chest pain Congenital heart disease Congestive heart failure Family history: Arthritis Family history: Asthma Family history: Breast disease Family history: Cardiovascular disease Family history: Coronary thrombosis Family history: Diabetes mellitus Family history: Hypertension Family history: Thyroid disorder Headache History of - anemia History of - respiratory disease History of drug abuse Human immunodeficiency virus (HIV) seropositivity Hypercholesterolemia Infertile Kidney disease Myocardial infarction Psychotic disorder Seizure disorder Stroke Tuberculosis Visual impairment Physical Exam Vital Signs - First Documented 08/16/19 00:38 Temp 38.1 Pulse 126 Resp 18 B/P (MAP) 122/84 (97) Pulse Ox 97 Capillary Refill : Less Than 3 Seconds Height: 5'2.00" Weight: 130lbs. 0.0oz. [id number]; 28.00 BMI Method:Stated General Appearance: WD/WN, mild distress Eyes: Bilateral Eye Normal Inspection, Bilateral Eye PERRL, Bilateral Eye EOMI HEENT: PERRL/EOMI, normal ENT inspection, TMs normal, pharynx normal Neck: non-tender, full range of motion, supple, normal inspection Respiratory: lungs clear, normal breath sounds, no respiratory distress, no accessory muscle use Cardiovascular: normal peripheral pulses, regular rate, rhythm, no edema, tachycardia (120) Gastrointestinal: non tender, soft Neurologic/Psychiatric: alert, normal mood/affect, oriented x 3 Skin: normal color, warm/dry Progress/Results/Core Measures Suspected Sepsis Recent Fever Within 48 Hours: No Infection Criteria Present: None New/Unexplained Altered Menta: No Sepsis Screen: No Definite Risk SIRS Temperature: Pulse: 126 Respiratory Rate: 18 Laboratory Tests 08/16/19 00:45: White Blood Count 8.6 Blood Pressure 122 /84 Mean: 97 Laboratory Tests 08/16/19 00:45: Creatinine 0.77, Platelet Count 199, Total Bilirubin 0.2 Results/Orders Lab Results Laboratory Tests Test 08/16/19 00:45 08/16/19 00:52 08/16/19 00:54 Range/Units White Blood Count 8.6 4.3-11.0 10^3/uL Red Blood Count 5.12 4.35-5.85 10^6/uL Hemoglobin 14.1 11.5-16.0 G/DL Hematocrit 43 35-52 % Mean Corpuscular Volume 83 80-99 FL Mean Corpuscular Hemoglobin 28 25-34 PG Mean Corpuscular Hemoglobin Concent 33 32-36 G/DL Red Cell Distribution Width 15.5 H 10.0-14.5 % Platelet Count 199 130-400 10^3/uL Mean Platelet Volume 11.4 H 7.4-10.4 FL Neutrophils (%) (Auto) 76 H 42-75 % Lymphocytes (%) (Auto) 13 12-44 % Monocytes (%) (Auto) 10 0-12 % Eosinophils (%) (Auto) 1 0-10 % Basophils (%) (Auto) 0 0-10 % Neutrophils # (Auto) 6.5 1.8-7.8 X 10^3 Lymphocytes # (Auto) 1.1 1.0-4.0 X 10^3 Monocytes # (Auto) 0.8 0.0-1.0 X 10^3 Eosinophils # (Auto) 0.1 0.0-0.3 10^3/uL Basophils # (Auto) 0.0 0.0-0.1 10^3/uL Sodium Level 139 135-145 MMOL/L Potassium Level 3.3 L 3.6-5.0 MMOL/L Chloride Level 105 98-107 MMOL/L Carbon Dioxide Level 21 21-32 MMOL/L Anion Gap 13 5-14 MMOL/L Blood Urea Nitrogen 9 7-18 MG/DL Creatinine 0.77 0.60-1.30 MG/DL Estimat Glomerular Filtration Rate > 60 BUN/Creatinine Ratio 12 Glucose Level 104 70-105 MG/DL Calcium Level 9.3 8.5-10.1 MG/DL Corrected Calcium 9.1 8.5-10.1 MG/DL Total Bilirubin 0.2 0.1-1.0 MG/DL Aspartate Amino Transf (AST/SGOT) 15 5-34 U/L Alanine Aminotransferase (ALT/SGPT) 16 0-55 U/L Alkaline Phosphatase 106 40-136 U/L C-Reactive Protein High Sensitivity 7.97 H 0.00-0.50 MG/DL Total Protein 7.6 6.4-8.2 GM/DL Albumin 4.2 3.2-4.5 GM/DL Group A Streptococcus Screen NEGATIVE NEGATIVE My Orders Orders - LEXX SÁNCHEZ Lactated Ringers (Lr 1000 Ml Iv Solution (08/16/19 00:45) Acetaminophen Tablet (Tylenol Tablet) (08/16/19 00:45) Ed Iv/Invasive Line Start (08/16/19 00:49) Lactated Ringers (Lr 1000 Ml Iv Solution (08/16/19 00:49) Acetaminophen Tablet (Tylenol Tablet) (08/16/19 01:00) Cbc With Automated Diff (08/16/19 00:49) Comprehensive Metabolic Panel (08/16/19 00:49) Hs C Reactive Protein (08/16/19 00:49) Rapid Strep A Screen (08/16/19 00:49) Coronavirus Sars-Cov-2 So 2018 (08/16/19 00:49) Medications Given in ED Current Medications Medications Dose Ordered Sig/Osny Route Start Time Stop Time Status Last Admin Dose Admin Acetaminophen 1,000 mg ONCE ONCE PO 08/16/19 01:00 08/16/19 01:01 DC 08/16/19 00:53 1,000 MG Lactated Ringer's 1,000 ml @ 0 mls/hr Q0M ONCE IV 08/16/19 00:49 08/16/19 00:51 DC 08/16/19 00:53 0 MLS/HR Vital Signs/I&O 08/16/19 00:38 Temp 38.1 Pulse 126 Resp 18 B/P (MAP) 122/84 (97) Pulse Ox 97 Capillary Refill : Less Than 3 Seconds Blood Pressure Mean: 97 Progress Note : Time: 01:10 Progress Note Rapid strep, COVID 19 swabs and basic labs while we give her a liter of fluids and some Tylenol for her 100.6 fever. Viral syndrome most likely. Departure Impression Primary Impression: Viral syndrome Disposition: HOME, SELF-CARE Condition: Stable Departure-Patient Inst. Decision time for Depature: 01:20 Referrals: [facility] (PCP/Family) Primary Care Physician Patient Instructions: Viral Pharyngitis Add. Discharge Instructions: Do not share drinks or utensils with other people. Stay in your home for at least 10 days and 72 hours after your symptoms resolve; whichever is longer. You may continue to pump and bottle your milk for your . Tylenol 650 mg every 6 hours as needed for body aches or fever. Ibuprofen 600 mg every 6 hours as needed for fever or bodyaches. All discharge instructions reviewed with patient and/or family. Voiced understanding. LEXX SÁNCHEZ Aug 16, 2019 01:21
[2019-08-16 01:28] VITALS: BP 122/84
== END 2019-08-16 01:32 | disposition home or self-care (01) ==
LOC: EDUNIT# 00:13 → ER 00:16
DX: B34.9 Viral infection, unspecified (principal); Z20.828 Contact with and (suspected) exposure to other viral communicable diseases; Z87.891 Personal history of nicotine dependence; Z87.09 Personal history of other diseases of the respiratory system
CPT/HCPCS: 80053; 85025; 86141; 87430; 99284; U0002; 36415; 87635

== ENCOUNTER 2021-01-17 15:56 | Emergency (ER) | payer OTHER, MEDICAID ==
[~2021-01-17] VITALS: Ht 157 cm; Wt 63.5 kg
[~2021-01-17 15:56] MED LIST changes: +CLIN-144 PO; -CLIN150C17 PO; +CLIN150C20 PO; -CLIN300C11 PO; -METH5TAB2 PO; +[UNRECOGNIZED DRUG - CODE] PO
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
--- NOTE | 2021-01-17 16:56 | Diagnostic Imaging Report ---
EXAM: Right wrist radiographs. EXAM DATE: 01/17/2021. COMPARISON: None. HISTORY: Right wrist pain. TECHNIQUE: 3 views of the right wrist. FINDINGS: No acute fracture, dislocation or destructive osseous process. Joint spaces are normal. The soft tissues are normal. IMPRESSION: No acute osseous abnormality of the right wrist. Dictated by: Dictated on workstation # [id number]
[2021-01-17 17:15] VITALS: BP 123/80
== END 2021-01-17 17:15 | disposition home or self-care (01) ==
LOC: EDUNIT# 15:56 → ER 15:58
DX: S63.501A Unspecified sprain of right wrist, initial encounter (principal); M54.50 Low back pain, unspecified; J45.909 Unspecified asthma, uncomplicated; V89.2XXA Person injured in unspecified motor-vehicle accident, traffic, initial encounter
CPT/HCPCS: 72100; 73110; 73610

== ENCOUNTER 2021-03-21 21:40 | Emergency (ER) | payer MEDICAID, OTHER ==
[~2021-03-21] VITALS: Ht 155 cm; Wt 68.0 kg
[2021-03-21] MEDS ORDERED: LACTATED RINGERS 1,000 ML IV ONE (22:15)
[2021-03-21] MEDS ORDERED: FAMOTIDINE 20MG/2ML IV (PEPCID) IVP ONE (22:15)
[2021-03-21] MEDS ORDERED: HYOSCYAMINE 0.125 MG (LEVSIN) TAB PO ONE (22:15)
[2021-03-21 22:23] LABS: BASOPHILS % (AUTO) 0 % (0-10); EOSINOPHILS # (AUTO) 0.2 10^3/uL (0.0-0.3); EOSINOPHILS % (AUTO) 2 % (0-10); HEMATOCRIT 49 % (35-52); HEMOGLOBIN 16.5 g/dL (11.5-16.0); LYMPHOCYTES # (AUTO) 1.4 10^3/uL (1.0-4.0); LYMPHOCYTES % (AUTO) 10 % (12-44); MEAN CORPUSCULAR HEMOGLOBIN 29 pg (25-34); MEAN CORPUSCULAR HGB CONC 34 g/dL (32-36); MEAN CORPUSCULAR VOLUME 87 fL (80-99); MEAN PLATELET VOLUME 11.2 fL (9.0-12.2); MONOCYTES # (AUTO) 0.6 10^3/uL (0.0-1.0); MONOCYTES % (AUTO) 4 % (0-12); NEUTROPHILS # (AUTO) 10.9 10^3/uL (1.8-7.8); NEUTROPHILS % (AUTO) 83 % (42-75); PLATELET COUNT 321 10^3/uL (130-400); WHITE BLOOD COUNT 13.1 10^3/uL (4.3-11.0)
[2021-03-21 22:24] LABS: BILIRUBIN,URINE NEGATIVE (NEGATIVE); CLARITY,URINE CLEAR; COLOR,URINE DARK YELLOW; GLUCOSE, URINE (UA) NEGATIVE (NEGATIVE); KETONES,URINE NEGATIVE (NEGATIVE); LEUKOCYTE ESTERASE ,URINE NEGATIVE (NEGATIVE); NITRITE,URINE NEGATIVE (NEGATIVE); PROTEIN,URINE NEGATIVE (NEGATIVE)
[2021-03-21 22:33] LABS: BACTERIA,URINE NEGATIVE /HPF; RBC,URINE 0-2 /HPF
[2021-03-21 22:38] LABS: ALBUMIN 4.3 GM/DL (3.2-4.5); BILIRUBIN,TOTAL 0.6 MG/DL (0.1-1.0); CALCIUM 9.2 MG/DL (8.5-10.1); CREATININE SERUM 0.72 MG/DL (0.60-1.30); MAGNESIUM 1.9 MG/DL (1.6-2.4); POTASSIUM 3.8 MMOL/L (3.6-5.0); TOTAL PROTEIN 8.1 GM/DL (6.4-8.2)
[2021-03-21] MEDS ORDERED: SCOPOLAMINE 1.5 MG (TRANSDERM-SCOP) PATCH TD ONE (23:30)
[2021-03-21] MEDS ORDERED: HYOS0.1283 SL (23:52)
[2021-03-21] MEDS ORDERED: ONDA4TAB11 SL (23:52)
--- NOTE | 2021-03-21 23:55 | ED GI ---
General Chief Complaint: Abdominal/GI Problems Stated Complaint: VOMITING/DIARRHEA Nursing Triage Note: PT AMB TO RM 6 W C/O N/V/D, AND LOWER ABD PAIN. A&OX4. Source of Information: Patient Exam Limitations: No Limitations History of Present Illness Date Seen by Provider: Mar 21, 2021 Time Seen by Provider: 22:05 Allergies and Home Medications Allergies Coded Allergies: No Known Drug Allergies (Unverified , 09/02/18) Patient Home Medication List Ibuprofen (Ibu) 600 Mg Tablet, 600 MG PO Q6H PRN for CRAMPS Prescribed by: LEONARD CHIN on 06/27/19 1020 Vit/Iron Fumarate/FA ( Tablet) 1 Each Tablet, 1 EACH PO DAILY, (Reported) Entered as Reported by: BHUMIKA MITCHELL on 05/06/19 1415 Past Tlevqeu-Zzmvik-Laqetd Hx Patient Social History Tobacco Use?: No Use of E-Cig and/or Vaping dev: No Substance use?: No Alcohol Use?: No Immunizations Up To Date Tetanus Booster (TDap): Less than 5yrs PED Vaccines UTD: Yes Influenza Vaccine Up-to-Date: No; Not Current First/Initial COVID19 Vaccinat: NONE Second COVID19 Vaccination Shelton: NONE Third COVID19 Vaccination Date: NONE COVID19 Vaccine Supervisor Component Assembler: NONE Seasonal Allergies Seasonal Allergies: No Past Medical History Surgery/Hospitalization HX: IBS Abdominal Respiratory: Yes Asthma Currently Using CPAP: No Currently Using BIPAP: No Cardiac: No Neurological: No Last Menstrual Period: Mar 03, 2021 Reproductive Disorders: No Female Reproductive Disorders: Denies Sexually Transmitted Disease: No HIV/AIDS: No Genitourinary: No Bladder Infection Gastrointestinal: No Abdominal Hernia, Irritable Bowel Musculoskeletal: No Endocrine: No HEENT: No Cancer: No Psychosocial: No ADD/ADHD, Anxiety, Suicide Attempts, Bipolar, Depression Integumentary: No Eczema Blood Disorders: No Adverse Reaction/Blood Tranf: No Family Medical History No Family History of: Alcoholism Cancer Chest pain Congenital heart disease Congestive heart failure Family history: Arthritis Family history: Asthma Family history: Breast disease Family history: Cardiovascular disease Family history: Coronary thrombosis Family history: Diabetes mellitus Family history: Hypertension Family history: Thyroid disorder Headache History of - anemia History of - respiratory disease History of drug abuse Human immunodeficiency virus (HIV) seropositivity Hypercholesterolemia Infertile Kidney disease Myocardial infarction Psychotic disorder Seizure disorder Stroke Tuberculosis Visual impairment Physical Exam Vital Signs Vital Signs - First Documented 03/21/21 22:00 Temp 36.0 Pulse 104 Resp 20 B/P (MAP) 119/83 (95) O2 Delivery Room Air Capillary Refill : Less Than 3 Seconds Height/Weight/BMI Height: 5'2.00" Weight: 130lbs. 0.0oz. [id number]; 28.00 BMI Method:Stated Progress/Results/Core Measures Results/Orders Lab Results Laboratory Tests Test 03/21/21 22:08 03/21/21 22:12 Range/Units Urine Color DARK YELLOW Urine Clarity CLEAR Urine pH 7.0 5-9 Urine Specific [place] 1.020 1.016-1.022 Urine Protein NEGATIVE NEGATIVE Urine Glucose (UA) NEGATIVE NEGATIVE Urine Ketones NEGATIVE NEGATIVE Urine Nitrite NEGATIVE NEGATIVE Urine Bilirubin NEGATIVE NEGATIVE Urine Urobilinogen 0.2 < = 1.0 MG/DL Urine Leukocyte Esterase NEGATIVE NEGATIVE Urine RBC (Auto) NEGATIVE NEGATIVE Urine RBC 0-2 /HPF Urine WBC 2-5 /HPF Urine Squamous Epithelial Cells 2-5 /HPF Urine Renal Epithelial Cells NONE /HPF Urine Crystals NONE /LPF Urine Bacteria NEGATIVE /HPF Urine Casts NONE /LPF Urine Mucus MODERATE H /LPF Urine Culture Indicated NO White Blood Count 13.1 H 4.3-11.0 10^3/uL Red Blood Count 5.62 H 3.80-5.11 10^6/uL Hemoglobin 16.5 H 11.5-16.0 g/dL Hematocrit 49 35-52 % Mean Corpuscular Volume 87 80-99 fL Mean Corpuscular Hemoglobin 29 25-34 pg Mean Corpuscular Hemoglobin Concent 34 32-36 g/dL Red Cell Distribution Width 12.1 10.0-14.5 % Platelet Count 321 130-400 10^3/uL Mean Platelet Volume 11.2 9.0-12.2 fL Immature Granulocyte % (Auto) 0 % Neutrophils (%) (Auto) 83 H 42-75 % Lymphocytes (%) (Auto) 10 L 12-44 % Monocytes (%) (Auto) 4 0-12 % Eosinophils (%) (Auto) 2 0-10 % Basophils (%) (Auto) 0 0-10 % Neutrophils # (Auto) 10.9 H 1.8-7.8 10^3/uL Lymphocytes # (Auto) 1.4 1.0-4.0 10^3/uL Monocytes # (Auto) 0.6 0.0-1.0 10^3/uL Eosinophils # (Auto) 0.2 0.0-0.3 10^3/uL Basophils # (Auto) 0.0 0.0-0.1 10^3/uL Immature Granulocyte # (Auto) 0.0 0.0-0.1 10^3/uL Sodium Level 140 135-145 MMOL/L Potassium Level 3.8 3.6-5.0 MMOL/L Chloride Level 102 98-107 MMOL/L Carbon Dioxide Level 26 21-32 MMOL/L Anion Gap 12 5-14 MMOL/L Blood Urea Nitrogen 14 7-18 MG/DL Creatinine 0.72 0.60-1.30 MG/DL Estimat Glomerular Filtration Rate 120 BUN/Creatinine Ratio 19 Glucose Level 108 H 70-105 MG/DL Calcium Level 9.2 8.5-10.1 MG/DL Corrected Calcium 9.0 8.5-10.1 MG/DL Magnesium Level 1.9 1.6-2.4 MG/DL Total Bilirubin 0.6 0.1-1.0 MG/DL Aspartate Amino Transf (AST/SGOT) 15 5-34 U/L Alanine Aminotransferase (ALT/SGPT) 14 0-55 U/L Alkaline Phosphatase 98 40-136 U/L C-Reactive Protein High Sensitivity 0.60 H 0.00-0.50 MG/DL Total Protein 8.1 6.4-8.2 GM/DL Albumin 4.3 3.2-4.5 GM/DL Lipase 23 8-78 U/L Serum Test, Qualitative NEGATIVE NEGATIVE My Orders Orders - GEORGINA DIAZ MD Cbc With Automated Diff (03/21/21 22:14) Comprehensive Metabolic Panel (03/21/21 22:14) Hcg,Qualitative Serum (03/21/21 22:14) Lipase (03/21/21 22:14) Magnesium (03/21/21 22:14) Ua Culture If Indicated (03/21/21 22:14) Ed Iv/Invasive Line Start (03/21/21 22:14) Lactated Ringers (Lr 1000 Ml Iv Solution (03/21/21 22:15) Famotidine Injection (Pepcid Injection) (03/21/21 22:15) Hyoscyamine Sl Tablet (Levsin Sl Tablet) (03/21/21 22:15) Hs C Reactive Protein (03/21/21 22:36) Scopolamine Patch (Transderm-Scop Patch) (03/21/21 23:30) Medications Given in ED Current Medications Medications Dose Ordered Sig/Sony Route Start Time Stop Time Status Last Admin Dose Admin Famotidine 20 mg ONCE ONCE IVP 03/21/21 22:15 03/21/21 22:16 DC 03/21/21 22:23 20 MG Hyoscyamine Sulfate 0.25 mg ONCE ONCE PO 03/21/21 22:15 03/21/21 22:16 DC 03/21/21 22:23 0.25 MG Lactated Ringer's 1,000 ml @ 0 mls/hr Q0M ONCE IV 03/21/21 22:15 03/21/21 22:16 DC 03/21/21 22:23 0 MLS/HR Scopolamine 1.5 mg ONCE ONCE TD 03/21/21 23:30 03/21/21 23:31 DC 03/21/21 23:35 1.5 MG Vital Signs/I&O 03/21/21 22:00 Temp 36.0 Pulse 104 Resp 20 B/P (MAP) 119/83 (95) O2 Delivery Room Air Blood Pressure Mean: 95 Departure Impression Primary Impression: Nausea vomiting and diarrhea Disposition: 01 HOME, SELF-CARE Condition: Improved Departure-Patient Inst. Decision time for Depature: 23:50 Referrals: [facility] (PCP/Family) Primary Care Physician Patient Instructions: Nausea and Vomiting, Adult Add. Discharge Instructions: Start with a clear liquid diet and gradually advance your diet with small quantities of bland food as tolerated. Avoid fatty, greasy, and dairy foods for at least 48 hours. Drink plenty of clear liquids. You may take Tylenol (acetaminophen) and/or ibuprofen for pain or fever. Use Zofran (ondansetron) as prescribed for nausea vomiting. Use Levsin (hyoscyamine) as prescribed for bowel cramping or diarrhea. You may leave the scopolamine patch on for 2 or 3 days. Avoid touching this patch as touching the patch and then touching your face may cause your pupils to dilate and may cause blurry vision. If you experience dizziness or blurry vision related to the scopolamine patch, you may remove the patch and wash your hands thoroughly with soap and water. Call with questions or concerns. Return to the ER if you have worsening symptoms. All discharge instructions reviewed with patient and/or family. Voiced understanding. Scripts Hyoscyamine Sulfate (Levsin-Sl) 0.125 Mg Tab.subl 1-2 TAB SL Q4H PRN for CRAMPS, #10 TAB 0 Refills Prov: GEORGINA DIAZ MD 03/21/21 Ondansetron (Ondansetron Odt) 4 Mg Tab.rapdis 4 MG SL Q4H PRN for NAUSEA/VOMITING, #10 TAB Prov: GEORGINA DIAZ MD 03/21/21 GEORGINA DIAZ MD Mar 21, 2021 23:55
[2021-03-22 00:05] VITALS: BP 101/63
== END 2021-03-22 00:05 | disposition home or self-care (01) ==
LOC: EDUNIT# 21:40 → ER 21:42
DX: R11.2 Nausea with vomiting, unspecified (principal); R19.7 Diarrhea, unspecified; J45.909 Unspecified asthma, uncomplicated; Z32.02 Encounter for pregnancy test, result negative
CPT/HCPCS: 36415; 80053; 81000; 83690; 83735; 84703; 85025; 86141

== ENCOUNTER 2021-10-24 16:12 | Emergency (ER) | payer MEDICAID ==
[~2021-10-24] VITALS: Ht 154 cm; Wt 70.7 kg
[~2021-10-24 16:12] MED LIST changes: +ONDA4TAB11 SL
--- NOTE | 2021-10-24 17:06 | ED Abdominal Pain ---
General Chief Complaint: Abdominal/GI Problems Stated Complaint: VOMITING/BODYACHES Nursing Triage Note: c/o nausea and vomiting that started today, states she cannot keep any fluid down and has not eaten anything since last night at supper time around 6pm. states she is having a lot of acid and cant keep anything down Source of Information: Patient Exam Limitations: No Limitations History of Present Illness Date Seen by Provider: Oct 24, 2021 Time Seen by Provider: 16:48 Initial Comments Patient is a 26-year-old female who presents to the emergency department today with a chief complaint of upset stomach, nausea and vomiting, right upper quadrant abdominal pain. Patient states she woke up this morning at about 930 with her symptoms. She has never had symptoms quite like this before. She had an abdominal hernia repair as an but otherwise no abdominal surgeries. She last ate at about 6 PM last night some baked chicken and rice. She is trying to drink Gatorade off and on all day today but keeps vomiting it back up. No fevers or chills. She does not usually suffer with heartburn unless she is . Her last menstrual cycle was 1 month ago. She states she is due for her menstrual cycle in 10 days. She denies dysuria, urgency or frequency, no abnormal vaginal discharge. The only time she gets nauseous is when she attempts to eat or drink. She has not taken anything for the symptoms. No family history of gallbladder disease that she is aware of. She does have "IBS" but this feels different. She did have 1 loose stool today. Last alcohol use was "4 shots" on Monday evening. No sick contacts at home. She is not COVID vaccinated. She works at [employer]. All other review of systems reviewed and negative except as stated. Timing/Duration: Other (8 hours) Severity/Quality: Moderate, Cramping Location: RUQ, Epigastric Radiation: Flank (right flank) Activities at Onset: Sleeping Modifying Factors: Worsens With Eating Associated Symptoms: Nausea/Vomiting Allergies and Home Medications Allergies Coded Allergies: No Known Drug Allergies (Unverified , 09/02/18) Patient Home Medication List Home Medication List Reviewed: Yes Hyoscyamine Sulfate (Levsin-Sl) 0.125 Mg Tab.subl, 1-2 TAB SL Q4H PRN for CRAMPS Prescribed by: GEORGINA AHMADI on 03/21/21 2352 Ibuprofen (Ibu) 600 Mg Tablet, 600 MG PO Q6H PRN for CRAMPS Prescribed by: LEONARD CHIN on 06/27/19 1020 Ondansetron (Ondansetron Odt) 4 Mg Tab.rapdis, 4 MG SL Q4H PRN for NAUSEA/VOMITING Prescribed by: GEORGINA AHMADI on 03/21/21 2352 Vit/Iron Fumarate/FA ( Tablet) 1 Each Tablet, 1 EACH PO DAILY, (Reported) Entered as Reported by: BHUMIKA MITCHELL on 05/06/19 1415 Review of Systems Review of Systems Constitutional: see HPI EENTM: No Symptoms Reported Respiratory: No Symptoms Reported Cardiovascular: No Symptoms Reported Gastrointestinal: Abdominal Pain, Nausea, Vomiting Genitourinary: No Symptoms Reported Musculoskeletal: no symptoms reported Skin: no symptoms reported All Other Systems Reviewed Negative Unless Noted: Yes Past Utpaate-Xttbmy-Tkmplh Hx Patient Social History Tobacco Use?: No Substance use?: No Alcohol Use?: No Pt feels they are or have been: No Immunizations Up To Date Tetanus Booster (TDap): Less than 5yrs PED Vaccines UTD: Yes Influenza Vaccine Up-to-Date: No; Not Current First/Initial COVID19 Vaccinat: NONE Second COVID19 Vaccination Shelton: NONE Third COVID19 Vaccination Date: NONE Seasonal Allergies Seasonal Allergies: No Past Medical History Surgery/Hospitalization HX: IBS, depression, anxiety, adhd, insomnia Surgeries: Yes Abdominal Respiratory: Yes Asthma Currently Using CPAP: No Currently Using BIPAP: No Cardiac: No Neurological: No Reproductive Disorders: No Female Reproductive Disorders: Denies Sexually Transmitted Disease: No HIV/AIDS: No Genitourinary: Yes Bladder Infection Gastrointestinal: Yes Abdominal Hernia, Irritable Bowel Musculoskeletal: No Endocrine: No HEENT: No Cancer: No Psychosocial: Yes ADD/ADHD, Anxiety, Suicide Attempts, Bipolar, Depression Integumentary: No Eczema Blood Disorders: No Adverse Reaction/Blood Tranf: No Family Medical History No Family History of: Alcoholism Cancer Chest pain Congenital heart disease Congestive heart failure Family history: Arthritis Family history: Asthma Family history: Breast disease Family history: Cardiovascular disease Family history: Coronary thrombosis Family history: Diabetes mellitus Family history: Hypertension Family history: Thyroid disorder Headache History of - anemia History of - respiratory disease History of drug abuse Human immunodeficiency virus (HIV) seropositivity Hypercholesterolemia Infertile Kidney disease Myocardial infarction Psychotic disorder Seizure disorder Stroke Tuberculosis Visual impairment Physical Exam Vital Signs Vital Signs - First Documented 10/24/21 16:20 Temp 37.0 Pulse 112 Resp 18 B/P (MAP) 123/75 (91) Pulse Ox 96 O2 Delivery Room Air Capillary Refill : Height/Weight/BMI Height: 5'2.00" Weight: 130lbs. 0.0oz. 58.466584kp; 29.00 BMI Method:Stated General Appearance: WD/WN, no apparent distress HEENT: PERRL/EOMI Neck: normal inspection Respiratory: lungs clear, normal breath sounds, no respiratory distress, no accessory muscle use Cardiovascular: regular rate, rhythm, tachycardia (105) Gastrointestinal: normal bowel sounds, soft, tenderness (RUQ and epigastrum (more RUQ)) Extremities: normal range of motion, normal inspection Neurologic/Psychiatric: alert, normal mood/affect, oriented x 3 Skin: normal color, warm/dry Progress/Results/Core Measures Results/Orders Lab Results Laboratory Tests Test 10/24/21 17:14 Range/Units White Blood Count 10.9 4.3-11.0 10^3/uL Red Blood Count 4.66 3.80-5.11 10^6/uL Hemoglobin 13.6 11.5-16.0 g/dL Hematocrit 40 35-52 % Mean Corpuscular Volume 86 80-99 fL Mean Corpuscular Hemoglobin 29 25-34 pg Mean Corpuscular Hemoglobin Concent 34 32-36 g/dL Red Cell Distribution Width 12.9 10.0-14.5 % Platelet Count 247 130-400 10^3/uL Mean Platelet Volume 11.0 9.0-12.2 fL Immature Granulocyte % (Auto) 0 % Neutrophils (%) (Auto) 87 H 42-75 % Lymphocytes (%) (Auto) 7 L 12-44 % Monocytes (%) (Auto) 6 0-12 % Eosinophils (%) (Auto) 0 0-10 % Basophils (%) (Auto) 0 0-10 % Neutrophils # (Auto) 9.5 H 1.8-7.8 10^3/uL Lymphocytes # (Auto) 0.7 L 1.0-4.0 10^3/uL Monocytes # (Auto) 0.7 0.0-1.0 10^3/uL Eosinophils # (Auto) 0.0 0.0-0.3 10^3/uL Basophils # (Auto) 0.0 0.0-0.1 10^3/uL Immature Granulocyte # (Auto) 0.0 0.0-0.1 10^3/uL Sodium Level 140 135-145 MMOL/L Potassium Level 3.6 3.6-5.0 MMOL/L Chloride Level 105 98-107 MMOL/L Carbon Dioxide Level 22 21-32 MMOL/L Anion Gap 13 5-14 MMOL/L Blood Urea Nitrogen 9 7-18 MG/DL Creatinine 0.68 0.60-1.30 MG/DL Estimat Glomerular Filtration Rate 125 BUN/Creatinine Ratio 13 Glucose Level 114 H 70-105 MG/DL Calcium Level 8.8 8.5-10.1 MG/DL Corrected Calcium 8.9 8.5-10.1 MG/DL Total Bilirubin 0.7 0.1-1.0 MG/DL Aspartate Amino Transf (AST/SGOT) 15 5-34 U/L Alanine Aminotransferase (ALT/SGPT) 20 0-55 U/L Alkaline Phosphatase 68 40-136 U/L Total Protein 6.9 6.4-8.2 GM/DL Albumin 3.9 3.2-4.5 GM/DL Serum Test, Qualitative NEGATIVE NEGATIVE My Orders Orders - KEVIN BO MD Ed Iv/Invasive Line Start (10/24/21 17:02) Cbc With Automated Diff (10/24/21 17:02) Comprehensive Metabolic Panel (10/24/21 17:02) Hcg,Qualitative Serum (10/24/21 17:02) Ondansetron Injection (Zofran Injectio (10/24/21 17:15) Ns Iv 1000 Ml (Sodium Chloride 0.9%) (10/24/21 17:15) Manual Differential (10/24/21 17:14) Sucralfate Tablet (Carafate Tablet) (10/24/21 18:00) Lidocaine 2% Viscous 15 Ml (Xylocaine Vi (10/24/21 18:00) Antacid Suspension (Mylanta Suspension (10/24/21 18:00) Medications Given in ED Current Medications Medications Dose Ordered Sig/Sony Route Start Time Stop Time Status Last Admin Dose Admin Ondansetron HCl 8 mg ONCE ONCE IVP 10/24/21 17:15 10/24/21 17:16 DC 10/24/21 17:19 8 MG Vital Signs/I&O 10/24/21 16:20 Temp 37.0 Pulse 112 Resp 18 B/P (MAP) 123/75 (91) Pulse Ox 96 O2 Delivery Room Air Blood Pressure Mean: 91 Progress Progress Note : Time: 17:55 Progress Note Patient reevaluated after Zofran and fluids, she still has the heartburn symptoms. We will add a GI cocktail. Her labs are reviewed and are within normal limits. No leukocytosis or abnormal liver functions. I suspect just dyspepsia possibly related to what ever she ate yesterday. I recommended antacids/PPI [id number]. We will send her home with some Zofran. She needs to follow-up with her primary care physician for further evaluation for potential gallbladder disease. Return precautions provided. She verbalized understanding. All questions are sought and answered. Departure Impression Primary Impression: Abdominal pain Qualified Codes: R10.11 - Right upper quadrant pain Additional Impression: Dyspepsia Disposition: 01 HOME, SELF-CARE Condition: Stable Departure-Patient Inst. Decision time for Depature: 17:57 Referrals: [facility] (PCP/Family) Primary Care Physician Patient Instructions: Dyspepsia Add. Discharge Instructions: Take the Zofran every 8 hours for nausea. You should take Maalox and an acid quality management coordinator daily to help with your symptoms. If you develop worsening abdominal pain, especially with fever, persistent vomiting in spite of medications for nausea or any other emergent, concerning symptoms - please come back for re-evaluation. Follow up with your provider at [facility] to further evaluate your gallbladder. Scripts Ondansetron (Ondansetron Odt) 4 Mg Tab.rapdis 4 MG PO Q8H PRN for nausea, #15 TAB Prov: KEVIN BO MD 10/24/21 Copy Copies To 1: LEONARD CHIN KATHRYN M MD Oct 24, 2021 17:06
[2021-10-24] MEDS ORDERED: ONDANSETRON 4 MG/2 ML (SDV) Z0FRAN IVP ONE (17:15)
[2021-10-24] MEDS ORDERED: NS IV 1000 ML 1,000 ML IV SCH (17:15)
[2021-10-24 17:22] LABS: BASOPHILS % (AUTO) 0 % (0-10); EOSINOPHILS % (AUTO) 0 % (0-10); HEMATOCRIT 40 % (35-52); HEMOGLOBIN 13.6 g/dL (11.5-16.0); LYMPHOCYTES # (AUTO) 0.7 10^3/uL (1.0-4.0); LYMPHOCYTES % (AUTO) 7 % (12-44); MEAN CORPUSCULAR HEMOGLOBIN 29 pg (25-34); MEAN CORPUSCULAR HGB CONC 34 g/dL (32-36); MEAN CORPUSCULAR VOLUME 86 fL (80-99); MONOCYTES # (AUTO) 0.7 10^3/uL (0.0-1.0); MONOCYTES % (AUTO) 6 % (0-12); NEUTROPHILS # (AUTO) 9.5 10^3/uL (1.8-7.8); NEUTROPHILS % (AUTO) 87 % (42-75); PLATELET COUNT 247 10^3/uL (130-400); WHITE BLOOD COUNT 10.9 10^3/uL (4.3-11.0)
[2021-10-24 17:38] LABS: ALBUMIN 3.9 GM/DL (3.2-4.5)
[2021-10-24 17:39] LABS: POTASSIUM 3.6 MMOL/L (3.6-5.0)
[2021-10-24 17:40] LABS: CALCIUM 8.8 MG/DL (8.5-10.1)
[2021-10-24 17:41] LABS: TOTAL PROTEIN 6.9 GM/DL (6.4-8.2)
[2021-10-24 17:43] LABS: BILIRUBIN,TOTAL 0.7 MG/DL (0.1-1.0)
[2021-10-24 17:45] LABS: CREATININE SERUM 0.68 MG/DL (0.60-1.30)
[2021-10-24] MEDS ORDERED: ONDA4TAB11 PO (17:59)
[2021-10-24] MEDS ORDERED: ANTACID SUSP 30 ML UDC (MYLANTA) PO ONE (18:00)
[2021-10-24] MEDS ORDERED: LIDOCAINE 2% VISCOUS 15 ML UDC PO ONE (18:00)
[2021-10-24] MEDS ORDERED: SUCRALFATE 1 GM (CARAFATE) TAB PO ONE (18:00)
[2021-10-24] MEDS ORDERED: PANTOPRAZOLE 40 MG (PROTONIX) VIAL IV ONE (18:15)
[2021-10-24 18:18] VITALS: BP 118/77
[2021-10-24 18:25] LABS: BAND NEUTROPHILS 0 %; BASOPHILS % (MANUAL) 0 %; EOSINOPHILS % (MANUAL) 0 %; LYMPHOCYTES % (MANUAL) 6 %; MONOCYTES % (MANUAL) 3 %; NEUTROPHILS % (MANUAL) 91 %; RBC MORPH NORMAL
== END 2021-10-24 18:19 | disposition home or self-care (01) ==
LOC: EDUNIT# 16:12 → ER 16:15
DX: R10.13 Epigastric pain (principal); R10.11 Right upper quadrant pain; R11.2 Nausea with vomiting, unspecified; Z28.310 Unvaccinated for COVID-19; Z87.19 Personal history of other diseases of the digestive system
CPT/HCPCS: 36415; 80053; 84703; 85007; 85027

== ENCOUNTER 2022-04-24 20:39 | Emergency (ER) | payer MEDICAID ==
[~2022-04-24] VITALS: Ht 155 cm; Wt 72.6 kg
[2022-04-24] MEDS ORDERED: TRZ50T (20:48)
[2022-04-24] MEDS ORDERED: LURA120T (20:48)
[2022-04-24] MEDS ORDERED: ACYC400T21 (20:48)
[2022-04-24] MEDS ORDERED: GUAN1TAB38 (20:48)
[2022-04-24] MEDS ORDERED: ONDANSETRON 4 MG (ZOFRAN) ORAL DISSOLVE TAB SL STA (21:10)
[2022-04-24] MEDS ORDERED: IBUPROFEN 800 MG (MOTRIN) TAB PO STA (21:10)
--- NOTE | 2022-04-24 21:25 | ED Cough/URI ---
General Chief Complaint: Cough/Cold/Flu Symptoms Stated Complaint: HEADACHE - SORE THRAOT - FEVER - BODYACHES Nursing Triage Note: JARA, SORE THROAT, FEVER, BODYACHE, VOMITTING. X1 DAY History of Present Illness Date Seen by Provider: Apr 24, 2022 Time Seen by Provider: 20:45 Initial Comments 27-year-old female presents for sore throat, myalgias, fever and vomiting for 1 day. She last had Tylenol at approximately 10:00 this morning and ibuprofen yesterday. She ate biscuits and gravy today and vomited shortly after. She has been trying to take water with continued nausea. She has not received vaccinations for influenza or COVID. Timing/Duration: yesterday Severity/Quality: dry cough Associated Symptoms: cough, fever/chills, headache, muscle aches, nasal congestion Allergies and Home Medications Allergies Coded Allergies: No Known Drug Allergies (Unverified , 09/02/18) Patient Home Medication List Home Medication List Reviewed: Yes Acyclovir (Acyclovir) 400 Mg Tablet, (Reported) Entered as Reported by: LOU DIMAS on 04/24/222047 Last Action: New Order Guanfacine HCl (Guanfacine HCl ER) 1 Mg Tab.er.24h, (Reported) Entered as Reported by: LOU DIMAS on 04/24/222047 Last Action: New Order Hyoscyamine Sulfate (Levsin-Sl) 0.125 Mg Tab.subl, 1-2 TAB SL Q4H PRN for CRAMPS Prescribed by: GEORGINA AHMADI on 03/21/21 235 Ibuprofen (Ibu) 600 Mg Tablet, 600 MG PO Q6H PRN for CRAMPS Prescribed by: LEONARD CHIN on 06/27/19 1020 Lurasidone HCl (Latuda) 120 Mg Tablet, (Reported) Entered as Reported by: LOU DIMAS on 04/24/222047 Last Action: New Order Ondansetron (Ondansetron Odt) 4 Mg Tab.rapdis, 4 MG SL Q4H PRN for NAUSEA/VOMITING Prescribed by: GEORGINA AHMADI on 03/21/21 2352 Ondansetron (Ondansetron Odt) 4 Mg Tab.rapdis, 4 MG PO Q8H PRN for nausea Prescribed by: KEVIN BO on 10/24/21 1759 Vit/Iron Fumarate/FA ( Tablet) 1 Each Tablet, 1 EACH PO DAILY, (Reported) Entered as Reported by: BHUMIKA MITCHELL on 05/06/19 1415 Trazodone HCl (Trazodone HCl) 50 Mg Tablet, (Reported) Entered as Reported by: LOU DIMAS on 04/24/222047 Last Action: New Order Review of Systems Review of Systems Constitutional: see HPI, fever, malaise Gastrointestinal: see HPI; No abdominal pain, No constipation, No diarrhea; nausea, vomiting All Other Systems Reviewed Negative Unless Noted: Yes Past Mkzqagx-Dlupax-Kmtmks Hx Patient Social History Tobacco Use?: No Substance use?: No Alcohol Use?: No Pt feels they are or have been: No Immunizations Up To Date Tetanus Booster (TDap): Less than 5yrs PED Vaccines UTD: Yes First/Initial COVID19 Vaccinat: NONE Second COVID19 Vaccination [place]: NONE Third COVID19 Vaccination Date: NONE Seasonal Allergies Seasonal Allergies: No Past Medical History Surgery/Hospitalization HX: IBS, depression, anxiety, adhd, insomnia, BIPOLAR Surgeries: Yes Abdominal Respiratory: Yes Asthma Currently Using CPAP: No Currently Using BIPAP: No Cardiac: No Neurological: No Last Menstrual Period: Apr 10, 2022 Reproductive Disorders: No Female Reproductive Disorders: Denies Sexually Transmitted Disease: No HIV/AIDS: No Genitourinary: Yes Bladder Infection Gastrointestinal: Yes Abdominal Hernia, Irritable Bowel Musculoskeletal: No Endocrine: No HEENT: No Cancer: No Psychosocial: Yes ADD/ADHD, Anxiety, Suicide Attempts, Bipolar, Depression Integumentary: No Eczema Blood Disorders: No Adverse Reaction/Blood Tranf: No Family Medical History Reviewed Nursing Family Hx No Family History of: Alcoholism Cancer Chest pain Congenital heart disease Congestive heart failure Family history: Arthritis Family history: Asthma Family history: Breast disease Family history: Cardiovascular disease Family history: Coronary thrombosis Family history: Diabetes mellitus Family history: Hypertension Family history: Thyroid disorder Headache History of - anemia History of - respiratory disease History of drug abuse Human immunodeficiency virus (HIV) seropositivity Hypercholesterolemia Infertile Kidney disease Myocardial infarction Psychotic disorder Seizure disorder Stroke Tuberculosis Visual impairment Physical Exam Vital Signs - First Documented 04/24/22 20:42 Temp 37.6 Pulse 108 Resp 16 B/P (MAP) 138/84 (102) Pulse Ox 99 O2 Delivery Room Air Capillary Refill : Less Than 3 Seconds Height: 5'2.00" Weight: 130lbs. 0.0oz. 58.007094zg; 30.00 BMI Method:Stated General Appearance: WD/WN, no apparent distress HEENT: PERRL/EOMI, normal ENT inspection, TMs normal, pharynx normal; No pharyngeal erythema, No tonsillar exudate Neck: non-tender, full range of motion, supple, normal inspection Respiratory: chest non-tender, lungs clear, normal breath sounds Cardiovascular: normal peripheral pulses, regular rate, rhythm Gastrointestinal: normal bowel sounds, non tender, soft; No distended, No rebound, No tenderness Neurologic/Psychiatric: no motor/sensory deficits, alert, normal mood/affect, oriented x 3 Skin: normal color, warm/dry Progress/Results/Core Measures Suspected Sepsis SIRS Temperature: Pulse: 108 Respiratory Rate: 16 Blood Pressure 138 /84 Mean: 102 Results/Orders Lab Results Laboratory Tests Test 04/24/22 20:48 Range/Units Influenza Type A (RT-PCR) Not Detected Not Detecte Influenza Type B (RT-PCR) Not Detected Not Detecte SARS-CoV-2 RNA (RT-PCR) Not Detected Not Detecte My Orders Orders - ANASTACIA LAM Influenza A And B By Pcr (04/24/22 20:51) Covid 19 Inhouse Test (04/24/22 20:51) Ondansetron Oral Dissolve Tab (Zofran (04/24/22 21:10) Ibuprofen Tablet (Motrin Tablet) (04/24/22 21:10) Rx-Ondansetron Po (Rx-Zofran Po) (04/24/22 21:50) Vital Signs/I&O 04/24/22 04/24/22 04/24/22 20:42 21:27 21:55 Temp 37.6 37.6 37.1 Pulse 108 105 Resp 16 16 B/P (MAP) 138/84 (102) 123/79 Pulse Ox 99 99 O2 Delivery Room Air Room Air Capillary Refill : Less Than 3 Seconds Blood Pressure Mean: 102 Progress Note : Time: 20:45 Progress Note Patient assessed, will give Zofran 4 mg and ibuprofen 800 mg. Will check for COVID and influenza. Patient denies any other requests at this time. 2134 COVID and influenza negative. Patient reports to be improved. Discharge instructions and return precautions reviewed with her. Departure Impression Primary Impression: Upper respiratory infection Qualified Codes: J06.9 - Acute upper respiratory infection, unspecified Additional Impression: Nausea & vomiting Qualified Codes: R11.2 - Nausea with vomiting, unspecified Disposition: HOME, SELF-CARE Condition: Improved Departure-Patient Inst. Decision time for Depature: 21:30 Referrals: [facility] (PCP/Family) Primary Care Physician Patient Instructions: Nausea and Vomiting, Adult (DC), Viral Upper Respiratory Infection, Adult (DC) Add. Discharge Instructions: [place] diet for the next 6 to 8 hours then advance diet as tolerated. Alternate Tylenol 650 mg and ibuprofen 600 mg every 4 hours for pain or fever. Increase water intake, 16 ounces every 2 hours while awake. Use Zofran every 6-8 hours as needed for nausea or vomiting. Mdvv-yof-pdoxivr cough and cold medicine as needed. Follow-up with Jessica at [facility] if symptoms or not improving or worsen. Return to the emergency department for new, urgent healthcare needs. All discharge instructions reviewed with patient and/or family. Voiced understanding. ANASTACIA LAM Apr 24, 2022 21:25
[2022-04-24] MEDS ORDERED: RX-ONDANSETRON 4 MG ODT (ZOFRAN) PPK #4 PO STA (21:50)
[2022-04-24 21:55] VITALS: BP 123/79
== END 2022-04-24 21:55 | disposition home or self-care (01) ==
LOC: EDUNIT# 20:39 → ER 20:40
DX: J06.9 Acute upper respiratory infection, unspecified (principal); R11.2 Nausea with vomiting, unspecified; Z28.310 Unvaccinated for COVID-19; Z20.822 Contact with and (suspected) exposure to COVID-19
CPT/HCPCS: 87636; 99283

== ENCOUNTER 2022-12-31 21:49 | Emergency (ER) | payer MEDICAID ==
[~2022-12-31] VITALS: Ht 157.5 cm; Wt 73.9 kg
[~2022-12-31 21:49] MED LIST changes: +ACYC400T21; +FAMO-356 PO; -FAMO20TA3 PO; +GUAN1TAB38; +LURA120T; +TRZ50T
[2022-12-31] MEDS ORDERED: ONDA4TAB11 SL (22:17)
--- NOTE | 2022-12-31 22:18 | ED General ---
General Chief Complaint: Abdominal/GI Problems Stated Complaint: NAUSEA/VOMITING Source of Information: Patient Exam Limitations: No Limitations (KATHY ORNELAS) History of Present Illness Date Seen by Provider: Dec 31, 2022 Time Seen by Provider: 22:14 Initial Comments Patient is a 27-year-old female presents to ED for hot flashes nausea and back pain. Back pain started yesterday. No injury. Located in her mid back. Pain does not radiate. Denies vomiting or diarrhea. History of kidney stones. No pain with urination frequent urination, fever, chills, chest pain, shortness of breath, cough, sore throat, headache, dizziness. She denies any vomiting but did feel nauseous today. She had epidural 3 years ago. Patient states she missed her last menstrual cycle which has been over 30 days. Patient appears in no acute distress. Denies taking anything for pain. (KATHY ORNELAS) Allergies and Home Medications Allergies Coded Allergies: No Known Drug Allergies (Unverified , 09/02/18) Patient Home Medication List Home Medication List Reviewed: Yes (KATHY ORNELAS) Acyclovir (Acyclovir) 400 Mg Tablet, (Reported) Entered as Reported by: LOU DIMAS on 04/24/222047 Cephalexin (Cephalexin) 500 Mg Tablet, 500 MG PO BID Prescribed by: ALEXIA GARCIA on 12/31/222225 Guanfacine HCl (Guanfacine HCl ER) 1 Mg Tab.er.24h, (Reported) Entered as Reported by: LOU DIMAS on 04/24/222047 Hyoscyamine Sulfate (Levsin-Sl) 0.125 Mg Tab.subl, 1-2 TAB SL Q4H PRN for CRAMPS Prescribed by: GEORGINA AHMADI on 03/21/21 2352 Ibuprofen (Ibu) 600 Mg Tablet, 600 MG PO Q6H PRN for CRAMPS Prescribed by: LEONARD CHIN on 06/27/19 1020 Lurasidone HCl (Latuda) 120 Mg Tablet, (Reported) Entered as Reported by: LOU DIMAS on 04/24/222047 Ondansetron (Ondansetron Odt) 4 Mg Tab.rapdis, 4 MG SL Q4H PRN for NAUSEA/VOMITING Prescribed by: GEORGINA AHMADI on 03/21/21 2352 Ondansetron (Ondansetron Odt) 4 Mg Tab.rapdis, 4 MG PO Q8H PRN for nausea Prescribed by: KEVIN BO on 10/24/21 1759 Ondansetron (Ondansetron Odt) 4 Mg Tab.rapdis, 4 MG SL Q4H PRN for NAUSEA/VOMITING Prescribed by: ALEXIA GARCIA on 12/31/22 2217 Vit/Iron Fumarate/FA ( Tablet) 1 Each Tablet, 1 EACH PO DAILY, (Reported) Entered as Reported by: BHUMIKA MITCHELL on 05/06/19 1415 Trazodone HCl (Trazodone HCl) 50 Mg Tablet, (Reported) Entered as Reported by: LOU DIMAS on 04/24/222047 Review of Systems Review of Systems Constitutional: No chills, No diaphoresis EENTM: No hearing loss, No ear pain, No blurred vision, No double vision Respiratory: No cough, No dyspnea on exertion Cardiovascular: No chest pain Gastrointestinal: No abdominal pain; nausea; No vomiting Genitourinary: No decreased output, No discharge, No dysuria, No frequency Musculoskeletal: back pain Skin: No change in color, No change in hair/nails (KATHY ORNELAS) All Other Systems Reviewed Negative Unless Noted: Yes (KATHY ORNELAS) Past Pmilzjb-Kpnkwj-Sfllpg Hx Immunizations Up To Date Tetanus Booster (TDap): Less than 5yrs PED Vaccines UTD: Yes First/Initial COVID19 Vaccinat: NONE Second COVID19 Vaccination [place]: NONE Third COVID19 Vaccination Date: NONE (KATHY ORNELAS) Seasonal Allergies Seasonal Allergies: No (KATHY ORNELAS) Past Medical History Surgery/Hospitalization HX: IBS, depression, anxiety, adhd, insomnia, BIPOLAR Surgeries: Yes Abdominal Respiratory: Yes Asthma Currently Using CPAP: No Currently Using BIPAP: No Cardiac: No Neurological: No Reproductive Disorders: No Female Reproductive Disorders: Denies Sexually Transmitted Disease: No HIV/AIDS: No Genitourinary: Yes Bladder Infection Gastrointestinal: Yes Abdominal Hernia, Irritable Bowel Musculoskeletal: No Endocrine: No HEENT: No Cancer: No Psychosocial: Yes ADD/ADHD, Anxiety, Suicide Attempts, Bipolar, Depression Integumentary: No Eczema Blood Disorders: No Adverse Reaction/Blood Tranf: No (KATHY ORNELAS) Family Medical History No Family History of: Alcoholism Cancer Chest pain Congenital heart disease Congestive heart failure Family history: Arthritis Family history: Asthma Family history: Breast disease Family history: Cardiovascular disease Family history: Coronary thrombosis Family history: Diabetes mellitus Family history: Hypertension Family history: Thyroid disorder Headache History of - anemia History of - respiratory disease History of drug abuse Human immunodeficiency virus (HIV) seropositivity Hypercholesterolemia Infertile Kidney disease Myocardial infarction Psychotic disorder Seizure disorder Stroke Tuberculosis Visual impairment Physical Exam Vital Signs Vital Signs - First Documented 12/31/22 22:34 Pulse 104 Resp 16 B/P (MAP) 130/86 Pulse Ox 98 O2 Delivery Room Air (GEORGINA DIAZ MD) Vital Signs Capillary Refill : (KATHY ORNELAS) Height, Weight, BMI Height: 5'2.00" Weight: 130lbs. 0.0oz. 58.072105dq; 30.00 BMI Method:Stated General Appearance: No Apparent Distress, WD/WN Eyes: Bilateral Eye Normal Inspection, Bilateral Eye PERRL, Bilateral Eye EOMI HEENT: PERRL/EOMI, TMs Normal, Normal ENT Inspection, Pharynx Normal Neck: Full Range of Motion, Normal Inspection, Non Tender Respiratory: Chest Non Tender, Lungs Clear, Normal Breath Sounds, No Accessory Muscle Use, No Respiratory Distress Cardiovascular: Regular Rate, Rhythm, No Edema, No Gallop, No JVD, No Murmur Gastrointestinal: Normal Bowel Sounds, No Organomegaly, No Pulsatile Mass, Non Tender Back: Vertebral Tenderness (Lumbar midline tenderness. Normal range of motion.) Extremity: Normal Capillary Refill, Normal Inspection, Normal Range of Motion, Non Tender Neurologic/Psychiatric: Alert, Oriented x3, No Motor/Sensory Deficits Skin: Normal Color, Warm/Dry (KATHY ORNELAS) Progress/Results/Core Measures Suspected Sepsis SIRS Temperature: Pulse: Respiratory Rate: Blood Pressure / Mean: (KATHY ORNELAS) Results/Orders Lab Results Laboratory Tests Test 12/31/22 22:05 12/31/22 22:20 Range/Units Urine Color YELLOW Urine Clarity CLEAR Urine pH 6.0 5-9 Urine Specific Blue 1.025 H 1.016-1.022 Urine Protein NEGATIVE NEGATIVE Urine Glucose (UA) 1+ H NEGATIVE Urine Ketones NEGATIVE NEGATIVE Urine Nitrite NEGATIVE NEGATIVE Urine Bilirubin NEGATIVE NEGATIVE Urine Urobilinogen 0.2 < = 1.0 MG/DL Urine Leukocyte Esterase 1+ H NEGATIVE Urine RBC (Auto) NEGATIVE NEGATIVE Urine RBC 2-5 H /HPF Urine WBC 5-10 H /HPF Urine Squamous Epithelial Cells 2-5 /HPF Urine Crystals NONE /LPF Urine Bacteria FEW H /HPF Urine Casts NONE /LPF Urine Mucus NEGATIVE /LPF Urine Culture Indicated YES Urine Test NEGATIVE NEGATIVE Glucometer 165 H 70-110 MG/DL (GEORGINA DIAZ MD) Vital Signs/I&O 12/31/22 22:34 Pulse 104 Resp 16 B/P (MAP) 130/86 Pulse Ox 98 O2 Delivery Room Air (GEORGINA DIAZ MD) Vital Signs/I&O Capillary Refill : (KATHY ORNELAS) Departure Communication (PCP) Patient with nonspecific complaints. Nausea lower back pain and hot flashes. She has no other complaints such as vomiting diarrhea fever cough chest pain abdominal pain short of breath or urinary symptoms. No vaginal discharge or concern for pelvic infection. No specific injury to the back. Denies any drug use. She does have some lumbar midline tenderness. Normal range of motion. No bowel or urine incontinence or saddle paresthesia. Likely more muscle pain. Due to location did add a urinalysis which did note leukocytes and white blood cells concern for UTI. Negative for . She did receive Zofran for nausea. Did not obtain COVID or flu since she is having really no flulike symptoms. At this time will discharge with Keflex. She did receive a dose here. Zofran for at home. Did check an Accu-Chek which read 165. She did just eat. If any worsening symptoms such as fever chills, back pain, abdominal pain, vomiting diarrhea to return back to ED. follow-up your PCP in 2 to 3 days for reevaluation. Recheck with urinalysis in 5 to 6 days. (KATHY ORNELAS) Impression Primary Impression: UTI (urinary tract infection) Disposition: 01 HOME, SELF-CARE Condition: Stable Departure-Patient Inst. Decision time for Depature: 22:17 (KATHY ORNELAS) Referrals: [facility] (PCP/Family) Primary Care Physician Patient Instructions: Nausea and Vomiting, Adult, Urinary Tract Infection, Adult ED Add. Discharge Instructions: Take antibiotics as prescribed. Zofran for nausea. Recommend staying hydration. If increasing pain fever chills to return back to ED. All discharge instructions reviewed with patient and/or family. Voiced understanding. Scripts Cephalexin (Cephalexin) 500 Mg Tablet 500 MG PO BID for 7 Days, #14 TAB Prov: KATHY ORNELAS 12/31/22 Ondansetron (Ondansetron Odt) 4 Mg Tab.rapdis 4 MG SL Q4H PRN for NAUSEA/VOMITING, #8 TAB Prov: KATHY ORNELAS 12/31/22 Work/School Note: Work Release Form Date Seen in the Emergency Department: Dec 31, 2022 Return to Work: Jan 02, 2023 ATTENDING PHYSICIAN NOTE: I was physically present as attending physician in the emergency department during the care of this patient, but I was not directly involved in the decision making or delivery of care for this patient. (GEORGINA DIAZ MD) KATHY ORNELAS Dec 31, 2022 22:18 GEORGINA DIAZ MD Jan 01, 2023 06:37
[2022-12-31 22:19] LABS: BILIRUBIN,URINE NEGATIVE (NEGATIVE); CLARITY,URINE CLEAR; COLOR,URINE YELLOW; GLUCOSE, URINE (UA) 1+ (NEGATIVE); KETONES,URINE NEGATIVE (NEGATIVE); LEUKOCYTE ESTERASE ,URINE 1+ (NEGATIVE); NITRITE,URINE NEGATIVE (NEGATIVE); PROTEIN,URINE NEGATIVE (NEGATIVE)
[2022-12-31 22:20] LABS: BACTERIA,URINE FEW /HPF
[2022-12-31] MEDS ORDERED: CEPHALEXIN 250 MG CAPSULE PO STA (22:25)
[2022-12-31] MEDS ORDERED: CEPH500T PO (22:26)
[2022-12-31] MEDS ORDERED: ONDANSETRON 4 MG ORAL DISSOLVE TABLET PO ONE (22:30)
[2022-12-31 22:34] VITALS: BP 130/86
== END 2022-12-31 22:34 | disposition home or self-care (01) ==
LOC: EDUNIT# 21:49 → ER 21:51
DX: N39.0 Urinary tract infection, site not specified (principal); R11.2 Nausea with vomiting, unspecified; Z87.442 Personal history of urinary calculi
CPT/HCPCS: 81000; 82947; 84703; 87088